=== PATIENT | female | born 1970 | race Caucasian/White ===

== ENCOUNTER → 2017-12-24 14:10 | Outpatient (CLI) | payer OTHER, SELFPAY ==
[2017-12-24 16:07] LABS: Anion Gap 9 (5-15); BUN 13 mg/dL (7-18); BUN/Creat Ratio 12.1 RATIO (10-20); Calcium,Total 9.3 mg/dL (8.5-10.1); Chloride 103 mmol/L (98-107); Cholesterol 175 mg/dL (200); Creatinine, Serum 1.07 mg/dL (0.55-1.02); EST Glomerular Filtration Rate 59 mL/min (>60); Est Glom Filt Rate - Afr Amer 71 mL/min (>60); Glucose 105 mg/dL (74-106); High Density Lipoprotein 37 mg/dL; Potassium 3.8 mmol/L (3.5-5.1); Sodium Level 139 mmol/L (136-145); Thyroid Stim Hormone (TSH) 1.65 uIU/mL (0.358-3.74); Triglycerides 149 mg/dL; Very Low Density Lipoprotein 30 mg/dL (5-40)
[2017-12-24 16:15] LABS: Hemoglobin A1c 7.1 % (4.2-6.3)
== END ==
PROVIDERS: Family Provider Family Medicine; PCP Family Medicine; Visit Provider Family Medicine
DX: E03.9 Hypothyroidism, unspecified (principal); I10 Essential (primary) hypertension
CPT/HCPCS: 36415; 80048; 80061; 83036; 84443

== ENCOUNTER → 2018-06-23 10:27 | Outpatient (CLI) | payer OTHER, SELFPAY ==
[2018-06-23 12:31] LABS: Anion Gap 7 (5-15); BUN 10 mg/dL (7-18); BUN/Creat Ratio 9.8 RATIO (10-20); Calcium,Total 8.9 mg/dL (8.5-10.1); Chloride 104 mmol/L (98-107); Creatinine, Serum 1.02 mg/dL (0.55-1.02); EST Glomerular Filtration Rate 62 mL/min (>60); Est Glom Filt Rate - Afr Amer 75 mL/min (>60); Glucose 124 mg/dL (74-106); Potassium 3.9 mmol/L (3.5-5.1); Sodium Level 138 mmol/L (136-145)
[2018-06-23 12:37] LABS: Hemoglobin A1c 6.8 % (4.2-6.3)
== END ==
PROVIDERS: Family Provider Family Medicine; PCP Family Medicine; Visit Provider Family Medicine
DX: I10 Essential (primary) hypertension (principal); R73.01 Impaired fasting glucose
CPT/HCPCS: 36415; 80048; 83036

== ENCOUNTER → 2018-12-26 11:04 | Outpatient (CLI) | payer OTHER, SELFPAY ==
[2018-12-26 13:27] LABS: Anion Gap 8 (5-15); BUN 16 mg/dL (7-18); Chloride 103 mmol/L (98-107); Cholesterol 179 mg/dL (200); Creatinine, Serum 1.07 mg/dL (0.55-1.02); EST Glomerular Filtration Rate 58 mL/min (>60); Est Glom Filt Rate - Afr Amer 71 mL/min (>60); Glucose 114 mg/dL (74-106); High Density Lipoprotein 34 mg/dL; Potassium 4.3 mmol/L (3.5-5.1); Sodium Level 137 mmol/L (136-145); Thyroid Stim Hormone (TSH) 2.54 uIU/mL (0.358-3.74); Triglycerides 175 mg/dL; Very Low Density Lipoprotein 35 mg/dL (5-40)
== END ==
PROVIDERS: Family Provider Family Medicine; PCP Family Medicine; Visit Provider Family Medicine
DX: E11.9 Type 2 diabetes mellitus without complications (principal); E03.9 Hypothyroidism, unspecified
CPT/HCPCS: 36415; 80048; 80061; 84443

== ENCOUNTER → 2019-06-15 10:29 | Outpatient (CLI) | payer OTHER, SELFPAY ==
[2019-06-15 12:56] LABS: Microalbumin,Random Urine < 5.0 mg/L (NO RANGE EST.)
[2019-06-15 13:03] LABS: Anion Gap 11 (5-15); BUN 10 mg/dL (7-18); BUN/Creat Ratio 9.8 RATIO (10-20); Calcium,Total 8.9 mg/dL (8.5-10.1); Chloride 104 mmol/L (98-107); Cholesterol 170 mg/dL (200); Creatinine, Serum 1.02 mg/dL (0.55-1.02); EST Glomerular Filtration Rate 62 mL/min (>60); Est Glom Filt Rate - Afr Amer 75 mL/min (>60); Glucose 147 mg/dL (74-106); High Density Lipoprotein 37 mg/dL; Potassium 4.1 mmol/L (3.5-5.1); Sodium Level 141 mmol/L (136-145); Thyroid Stim Hormone (TSH) 2.27 uIU/mL (0.358-3.74); Triglycerides 154 mg/dL; Very Low Density Lipoprotein 31 mg/dL (5-40)
== END ==
PROVIDERS: Family Provider Family Medicine; PCP Family Medicine; Referring Provider Family Medicine; Visit Provider Family Medicine
DX: E11.9 Type 2 diabetes mellitus without complications (principal); E03.9 Hypothyroidism, unspecified
CPT/HCPCS: 36415; 80048; 80061; 82043; 82570; 84443

== ENCOUNTER → 2019-12-14 10:52 | Outpatient (CLI) | payer OTHER, SELFPAY | PROVIDERS: PCP Family Medicine; Referring Provider Family Medicine; Visit Provider Nurse Practitioner Family | DX: R31.9 Hematuria, unspecified (principal) | CPT/HCPCS: 87086; 87088 ==

== ENCOUNTER → 2020-01-31 09:00 | Outpatient (CLI) | payer OTHER, SELFPAY ==
[2020-01-31 10:30] LABS: Hemoglobin A1c 5.9 % (4.2-6.3)
[2020-01-31 10:51] LABS: Anion Gap 8 (5-15); BUN 19 mg/dL (7-18); BUN/Creat Ratio 13.9 RATIO (10-20); Calcium,Total 9.2 mg/dL (8.5-10.1); Chloride 103 mmol/L (98-107); Cholesterol 197 mg/dL (200); Creatinine, Serum 1.37 mg/dL (0.55-1.02); EST Glomerular Filtration Rate 44 mL/min (>60); Est Glom Filt Rate - Afr Amer 53 mL/min (>60); Free T3 1.3 pg/mL (2.18-3.98); Glucose 93 mg/dL (74-106); High Density Lipoprotein 36 mg/dL; Potassium 4.1 mmol/L (3.5-5.1); Sodium Level 136 mmol/L (136-145); T4 Total, Thyroxin 11.6 ug/dL (4.8-13.9); Thyroid Stim Hormone (TSH) 1.72 uIU/mL (0.358-3.74); Triglycerides 166 mg/dL; Very Low Density Lipoprotein 33 mg/dL (5-40)
== END ==
PROVIDERS: PCP Family Medicine; Referring Provider Family Medicine; Visit Provider Family Medicine
DX: E03.9 Hypothyroidism, unspecified (principal); R73.01 Impaired fasting glucose; I10 Essential (primary) hypertension
CPT/HCPCS: 36415; 80048; 80061; 83036; 84436; 84443; 84481

== ENCOUNTER → 2020-08-01 09:07 | Outpatient (CLI) | payer OTHER, SELFPAY ==
[2020-08-01 10:45] LABS: Anion Gap 8 (5-15); BUN 18 mg/dL (7-18); BUN/Creat Ratio 14.1 RATIO (10-20); Calcium,Total 8.9 mg/dL (8.5-10.1); Chloride 105 mmol/L (98-107); Creatinine, Serum 1.28 mg/dL (0.55-1.02); EST Glomerular Filtration Rate 47 mL/min (>60); Est Glom Filt Rate - Afr Amer 57 mL/min (>60); Free T3 1.7 pg/mL (2.18-3.98); Glucose 93 mg/dL (74-106); Potassium 3.7 mmol/L (3.5-5.1); Sodium Level 140 mmol/L (136-145); T4 Free Direct 1.23 ng/dL (0.76-1.46)
== END ==
PROVIDERS: PCP Family Medicine; Referring Provider Family Medicine; Visit Provider Family Medicine
DX: E03.9 Hypothyroidism, unspecified (principal); I10 Essential (primary) hypertension
CPT/HCPCS: 36415; 80048; 84439; 84443; 84481

== ENCOUNTER → 2021-01-29 08:36 | Outpatient (CLI) | payer OTHER, SELFPAY ==
[2021-01-29 11:21] LABS: ALB/GLOB Ratio 1.1 RATIO (0.9-2.4); AST(SGOT) 9 U/L (15-37); Alanine Aminotransfer ALT/SGPT 11 U/L (13-56); Albumin, Serum 3.8 g/dL (3.2-5.0); Alkaline Phosphatase 61 U/L (45-117); Anion Gap 7 (5-15); BUN 14 mg/dL (7-18); BUN/Creat Ratio 11.9 RATIO (10-20); Chloride 105 mmol/L (98-107); Cholesterol 189 mg/dL (200); Creatinine, Serum 1.18 mg/dL (0.55-1.02); EST Glomerular Filtration Rate 52 mL/min (>60); Est Glom Filt Rate - Afr Amer 63 mL/min (>60); Free T3 1.7 pg/mL (2.18-3.98); Globulin 3.6 g/dL (2.2-4.2); Glucose 102 mg/dL (74-106); High Density Lipoprotein 49 mg/dL; Potassium 4.2 mmol/L (3.5-5.1); Protein, Total 7.4 g/dL (6.4-8.2); Sodium Level 139 mmol/L (136-145); T4 Free Direct 1.42 ng/dL (0.76-1.46); Thyroid Stim Hormone (TSH) 2.51 uIU/mL (0.358-3.74); Triglycerides 128 mg/dL; Very Low Density Lipoprotein 26 mg/dL (5-40)
== END ==
PROVIDERS: PCP Family Medicine; Referring Provider Family Medicine; Visit Provider Family Medicine
DX: I10 Essential (primary) hypertension (principal); E03.9 Hypothyroidism, unspecified
CPT/HCPCS: 36415; 80053; 80061; 84439; 84443; 84481

== ENCOUNTER → 2021-07-31 08:26 | Outpatient (CLI) | payer OTHER, SELFPAY ==
[2021-07-31 11:02] LABS: Anion Gap 7 (5-15); BUN 12 mg/dL (7-18); BUN/Creat Ratio 10.8 RATIO (10-20); Chloride 104 mmol/L (98-107); Cholesterol 182 mg/dL (200); Creatinine, Serum 1.11 mg/dL (0.55-1.02); EST Glomerular Filtration Rate 55 mL/min (>60); Est Glom Filt Rate - Afr Amer 67 mL/min (>60); Free T3 1.8 pg/mL (2.18-3.98); Glucose 114 mg/dL (74-106); High Density Lipoprotein 39 mg/dL; Potassium 4.3 mmol/L (3.5-5.1); Sodium Level 139 mmol/L (136-145); T4 Total, Thyroxin 11.6 ug/dL (4.8-13.9); Thyroid Stim Hormone (TSH) 2.09 uIU/mL (0.358-3.74); Triglycerides 234 mg/dL; Very Low Density Lipoprotein 47 mg/dL (5-40)
== END ==
PROVIDERS: PCP Family Medicine; Referring Provider Family Medicine; Visit Provider Family Medicine
DX: I10 Essential (primary) hypertension (principal); E03.9 Hypothyroidism, unspecified
CPT/HCPCS: 36415; 80048; 80061; 84436; 84443; 84481

== ENCOUNTER 2022-01-26 08:31 | Outpatient (CLI) | payer OTHER, SELFPAY ==
[2022-01-26 08:35] LABS: Bacteria 0 SEEN /hpf (None Seen); Mucous, Urine 0 SEEN /hpf (<or=2+); Red Blood Cells-Urine 0 SEEN /hpf (0-5)
[2022-01-26 09:54] LABS: Color, Urine Yellow (Yellow); Glucose, Dipstick Normal (Normal); Ketone-Dipstick Negative (Negative); Leukocyte Esterase-Dipstick 500 /ul (Negative); Nitrite-Dipstick Negative (Negative); Occult Blood-Urine Negative /ul (Negative); Protein-Dipstick 30 mg/dl (Negative); Specific Gravity, Urine 1.015 (1.002-1.030); Urine Bilirubin Dipstick Negative (Negative); Urine Clarity Clear (Clear); Urine Urobilinogen Normal (Normal)
[2022-01-26 10:01] LABS: White Blood Cells 5-10 SEEN /hpf (0-5)
[2022-01-26 10:02] LABS: Squamous Epithelial Cells - UA 5-10 SEEN /hpf (5-10)
[2022-01-26 11:01] LABS: Anion Gap 9 (5-15); BUN 16 mg/dL (7-18); Calcium,Total 9.5 mg/dL (8.5-10.1); Chloride 104 mmol/L (98-107); Cholesterol 194 mg/dL (200); Creatinine, Serum 1.23 mg/dL (0.55-1.02); EST Glomerular Filtration Rate 49 mL/min (>60); Est Glom Filt Rate - Afr Amer 59 mL/min (>60); Free T3 1.7 pg/mL (2.18-3.98); Glucose 105 mg/dL (74-106); High Density Lipoprotein 33 mg/dL; Potassium 4.3 mmol/L (3.5-5.1); Sodium Level 137 mmol/L (136-145); T4 Free Direct 1.36 ng/dL (0.76-1.46); Thyroid Stim Hormone (TSH) 3.39 uIU/mL (0.358-3.74); Triglycerides 191 mg/dL; Very Low Density Lipoprotein 38 mg/dL (5-40)
== END 2022-01-26 23:59 | disposition home or self-care (01) ==
LOC: MFPLAB 08:34
PROVIDERS: PCP Family Medicine; Visit Provider Family Medicine
DX: E03.9 Hypothyroidism, unspecified (principal); E11.9 Type 2 diabetes mellitus without complications; R30.0 Dysuria
CPT/HCPCS: 36415; 80048; 80061; 81001; 84439; 84443; 84481

== ENCOUNTER → 2022-04-22 | Outpatient (CLI) | payer OTHER, SELFPAY | END | disposition home or self-care (01) | PROVIDERS: PCP Family Medicine; Referring Provider Family Medicine; Visit Provider Family Medicine | DX: R30.0 Dysuria (principal) | CPT/HCPCS: 87077; 87086; 87088; 87186 ==

== ENCOUNTER → 2022-06-26 | Outpatient (CLI) | payer OTHER, SELFPAY | END | disposition home or self-care (01) | LOC: LABSPEC 15:38 | PROVIDERS: PCP Family Medicine; Referring Provider Family Medicine; Visit Provider Family Medicine | DX: R30.0 Dysuria (principal) | CPT/HCPCS: 87077; 87086; 87088; 87186 ==

== ENCOUNTER → 2022-07-27 | Outpatient (CLI) | payer OTHER, SELFPAY ==
[2022-07-27 10:58] LABS: Anion Gap 10 (5-15); BUN 10 mg/dL (7-18); BUN/Creat Ratio 9.6 RATIO (10-20); Calcium,Total 9.1 mg/dL (8.5-10.1); Chloride 107 mmol/L (98-107); Cholesterol 175 mg/dL (200); Creatinine, Serum 1.04 mg/dL (0.55-1.02); EST Glomerular Filtration Rate 60 mL/min (>60); Est Glom Filt Rate - Afr Amer 72 mL/min (>60); Glucose 117 mg/dL (74-106); High Density Lipoprotein 41 mg/dL; Sodium Level 140 mmol/L (136-145); T4 Free Direct 1.26 ng/dL (0.76-1.46); Thyroid Stim Hormone (TSH) 1.24 uIU/mL (0.358-3.74); Triglycerides 141 mg/dL; Very Low Density Lipoprotein 28 mg/dL (5-40)
== END | disposition home or self-care (01) ==
LOC: MFPLAB 08:26
PROVIDERS: PCP Family Medicine; Visit Provider Family Medicine
DX: I10 Essential (primary) hypertension (principal); E03.9 Hypothyroidism, unspecified
CPT/HCPCS: 36415; 80048; 80061; 84439; 84443; 84481

== ENCOUNTER 2022-12-01 08:51 | Day surgery (SDC) | payer OTHER, SELFPAY ==
[2022-12-01] MEDS: Lactated Ringers 1,000 ML 15 ML IV (09:10)
[2022-12-01 09:27] VITALS: BP 119/74; PULSE 67; RESP 17; TEMP 36.1; O2SAT 95; BMI 36.3
[2022-12-01 09:46] LABS: Bedside Glucose 147 mg/dL (74-106)
--- NOTE | 2022-12-01 10:05 | HP.PCM_ITS ---
HPI - General HPI Narrative HEIDI ANDREWS, is a 52 F who presents for screening colonoscopy. Patient reports no blood in the stool or abdominal pain. She has never had a colonoscopy in the past. No family history of colon cancer. [facility] Medical History Anemia Anxiety Bipolar disorder, unspecified Diabetes Diabetes Former smoker HTN (hypertension) Hypertriglyceridemia Hypothyroid Psoriasis Thyroid disease Vitamin D deficiency Wears glasses Home Medications clonidine HCl 0.1 mg tablet 0.1 mg PO BID 11/10/22 [History Last Taken Unknown] fluoxetine 20 mg capsule (Prozac) 20 mg PO DAILY 11/10/22 [History Last Taken Unknown] gemfibrozil 600 mg tablet 600 mg PO BID 11/10/22 [History Last Taken Unknown] lamotrigine 150 mg tablet 150 mg PO BID 11/10/22 [History Last Taken Unknown] levothyroxine 88 mcg tablet (Levoxyl) 88 mcg PO DAILY 11/10/22 [History Last Taken Unknown] metformin 1,000 mg tablet 1,000 mg PO BID 11/10/22 [History Last Taken Unknown] metoprolol succinate 200 mg tablet,extended release 24 hr (Toprol XL) 200 mg PO DAILY 11/10/22 [History Last Taken Unknown] risperidone 2 mg tablet (Risperdal) 2 mg PO QHS 11/10/22 [History Last Taken Unknown] valsartan 320 mg-hydrochlorothiazide 12.5 mg tablet (Diovan HCT) 1 tab PO DAILY 11/10/22 [History Last Taken Unknown] Allergy/AdvReac Type Severity Reaction Status Date / Time No Known Allergies Allergy Verified 12/01/22 09:05 Family History (Updated 11/10/22 @ 16:17 by Cristy Hernandez) Father Hypertension Diabetes Sister Anxiety Surgical History Hx of bilateral breast reduction surgery Hx of section Social History (Updated 11/10/22 @ 16:16 by Cristy Hernandez) household members: spouse Smoking Status: Former smoker Past Medical/Surgical History Planned Operation Planned Operative Procedure/s: colonoscopy Previous Hospitalizations/Surgeries HX Hospitalizations: No Any Problems With Anesthesia: No You/Your Family Experience Fever (Hyperthermia) With Anes: No Cholinesterase deficiency: No Cardiovascular Hx Heart Attack: No Hx Hypertension: Yes Respiratory Hx Chronic Obstructive Pulmonary Disease (COPD): No Hx Asthma: No Hx Emphysema: No Hx Sleep Apnea: No Hx Respiratory Tract Infection/Cold (presently): No Do You Snore Loudly (louder than talking or can be heard): No Do You Often Feel Tired/ Fatigued/ Sleepy Dring Daytime?: No Has Anyone Observed You Stop Breathing During Sleep?: No Result (for STOP score): Negative Smoking Status: Former smoker Neurological Hx Seizures: No Does patient have nerve stimulator: No Reproduction : No Miscellaneous Recent Exposure to Contagious Disease: No Allergies No Known Allergies Allergy (Verified 12/01/22 09:05) Discharge Is Pt Admitted From a Senior Care, or a Custodial: No Who Could Help: After D/C, Where Do you Plan to Go: Return Home Vital Signs Vital Signs Vital Signs: 12/01/22 09:27 12/01/22 09:27 Temperature 97 F L Temperature Source Temporal Pulse Rate 67 Respiratory Rate 17 Respiratory Pattern Normal Blood Pressure 119/74 Blood Pressure Mean 89 Blood Pressure Source Monitor Blood Pressure Position Semi-Fowlers Blood Pressure Location Right Arm Pulse Ox 95 Oxygen Delivery Method Room Air Weight Weight: 224 lb 13.944 oz Body Mass Index (BMI) 36.3 Physical Exam Const alert and oriented x3 HEENT normocephalic Eyes PERRL Resp normal respiratory effort and normal air movement Cardio regular rate and regular rhythm GI soft to palpation, non-tender and non-distended Extremity normal to inspection Assessment & Plan Assessment/Plan (1) Encounter for screening for malignant neoplasm of colon: PLAN: I explained endoscopy in detail to the patient. I explained the risks including but not limited to stroke or heart attack with anesthesia, perforation of the GI tract, bleeding, infection. I explained that any of these could necessitate further emergency surgery. The patient understands and all questions were answered sufficiently. The patient wishes to proceed with pr lisa. Lamine Marie MD Pager: [facility] [address] [place] [address], [address] [place] [address] Office: Surgery Risks - Colonoscopy Risks Include but are not Limited To: Risks include but are not limited to: Bleeding, perforation requiring further surgery, inability to complete colonoscopy requiring barium enema.
[2022-12-01 10:25] VITALS: BP 102/63; BP 119/74; PULSE 69; RESP 16; TEMP 36.1; O2SAT 95
--- NOTE | 2022-12-01 10:26 | OP.COLON_ITS ---
Patient Name: Dulce Chavez Procedure Date: 12/01/2022 10:07 AM Date of : 1970 Age: 52 Procedure: Colonoscopy Indications: Screening for colorectal malignant neoplasm Providers: Lamine Marie MD Referring MD: Red Perez MD Medicines: Monitored Anesthesia Care Patient Profile: This is a 52 year old female. Refer to note in patient chart for documentation of history and physical. Last Colonoscopy: none. The patient's first colonoscopy is today. Complications: No immediate complications. Procedure: Pre-Anesthesia Assessment: - Prior to the procedure, a History and Physical was performed, and patient medications and allergies were reviewed. The patient's tolerance of previous anesthesia was also reviewed. The risks and benefits of the procedure and the sedation options and risks were discussed with the patient. All questions were answered, and informed consent was obtained. Prior Anticoagulants: The patient has taken no previous anticoagulant or antiplatelet agents. After reviewing the risks and benefits, the patient was deemed in satisfactory condition to undergo the procedure. After I obtained informed consent, the scope was passed under direct vision. Throughout the procedure, the patient's blood pressure, pulse, and oxygen saturations were monitored continuously. The Colonoscope was introduced through the anus and advanced to the cecum, identified by appendiceal orifice and ileocecal valve. The colonoscopy was performed without difficulty. The patient tolerated the procedure well. The quality of the bowel preparation was good. Scope In: 10:14:26 AM Scope Withdrawal Time 0 hours 4 minutes 9 seconds Scope Out: 10:22:37 AM Total Procedure Duration Time 0 hours 8 minutes 11 seconds Findings: The entire examined colon appeared normal on direct and retroflexion views. Impression: - The entire examined colon is normal on direct and retroflexion views. - No specimens collected. Recommendation: - Discharge patient to home. - Resume previous diet. - Continue present medications. - Repeat colonoscopy in 10 years for screening purposes. Procedure Code(s): --- Professional --- 10082, Colonoscopy, flexible; diagnostic, including collection of specimen(s) by brushing or washing, when performed (separate procedure) Diagnosis Code(s): --- Professional --- Z12.11, Encounter for screening for malignant neoplasm of colon CPT copyright 2017 [employer]. All rights reserved. The codes documented in this report are preliminary and upon medical biller/coder review may be revised to meet current compliance requirements. Lamine Marie MD 12/01/2022 10:25:29 AM This report has been signed electronically. Number of Addenda: 0 Note Initiated On: 12/01/2022 10:07 AM
--- NOTE | 2022-12-01 10:27 | OP.CCLET_ITS ---
12/01/2022 Red Perez MD [address] [place] [address] Re : Colonoscopy procedure for Dulce Chavez Dear Dr. Perez This procedure was performed on Thursday, December 01, 2022. My impressions and recommendations are as follows: Impressions : - The entire examined colon is normal on direct and retroflexion views. - No specimens collected. Recommendations : - Discharge patient to home. - Resume previous diet. - Continue present medications. - Repeat colonoscopy in 10 years for screening purposes. My findings are described in the full procedure note, which is enclosed. If I can be of further assistance, please feel free to contact me at Doctor phone number(s): , Work: . Sincerely, Lamine Marie MD 12/01/2022 10:25:29 AM This report has been signed electronically.
[2022-12-01 10:30] VITALS: BP 107/60; BP 119/74; PULSE 67; RESP 16; O2SAT 96
[2022-12-01 10:35] VITALS: BP 119/74; BP 98/62; PULSE 65; RESP 16; O2SAT 95
[2022-12-01 10:40] VITALS: BP 106/64; BP 119/74; PULSE 62; RESP 16; TEMP 36.1; O2SAT 96
[2022-12-01 10:56] VITALS: BP 119/74
== END 2022-12-01 11:08 | disposition home or self-care (01) ==
LOC: EN 08:53 → AC 08:53
PROVIDERS: PCP Family Medicine; Referring Provider Family Medicine; Visit Provider Surgery
PROC: 0DJD8ZZ Inspection of Lower Intestinal Tract, Via Natural or Artificial Opening Endoscopic (ICD-10-PCS; CPT 45378; principal; 2022-12-01 10:10)
DX: Z12.11 Encounter for screening for malignant neoplasm of colon (principal); F31.9 Bipolar disorder, unspecified; E11.9 Type 2 diabetes mellitus without complications; I10 Essential (primary) hypertension; E78.1 Pure hyperglyceridemia; E03.9 Hypothyroidism, unspecified; Z79.84 Long term (current) use of oral hypoglycemic drugs; Z79.890 Hormone replacement therapy; Z79.899 Other long term (current) drug therapy; Z87.891 Personal history of nicotine dependence
CPT/HCPCS: 45378; 82962; J7120; J2405

== ENCOUNTER → 2023-01-25 | Outpatient (CLI) | payer OTHER, SELFPAY ==
[2023-01-25 10:11] LABS: Anion Gap 10 (5-15); BUN 15 mg/dL (7-18); Calcium,Total 9.5 mg/dL (8.5-10.1); Chloride 105 mmol/L (98-107); Cholesterol 194 mg/dL (200); Creatinine, Serum 1.25 mg/dL (0.55-1.02); EST Glomerular Filtration Rate 48 mL/min (>60); Est Glom Filt Rate - Afr Amer 58 mL/min (>60); Free T3 1.5 pg/mL (2.18-3.98); Glucose 123 mg/dL (74-106); High Density Lipoprotein 39 mg/dL; Potassium 3.6 mmol/L (3.5-5.1); Sodium Level 140 mmol/L (136-145); T4 Free Direct 1.31 ng/dL (0.76-1.46); Thyroid Stim Hormone (TSH) 1.52 uIU/mL (0.358-3.74); Triglycerides 166 mg/dL; Very Low Density Lipoprotein 33 mg/dL (5-40)
== END | disposition home or self-care (01) ==
PROVIDERS: PCP Family Medicine; Visit Provider Family Medicine
DX: E03.9 Hypothyroidism, unspecified (principal); E11.9 Type 2 diabetes mellitus without complications
CPT/HCPCS: 36415; 80048; 80061; 84439; 84443; 84481

== ENCOUNTER → 2023-07-26 | Outpatient (CLI) | payer OTHER, SELFPAY ==
[2023-07-26 10:50] LABS: Anion Gap 8 (5-15); BUN 10 mg/dL (7-18); BUN/Creat Ratio 10.4 RATIO (10-20); Calcium,Total 8.8 mg/dL (8.5-10.1); Chloride 104 mmol/L (98-107); Cholesterol 186 mg/dL (200); Creatinine, Serum 0.96 mg/dL (0.55-1.02); EST Glomerular Filtration Rate 65 mL/min (>60); Est Glom Filt Rate - Afr Amer 79 mL/min (>60); Glucose 121 mg/dL (74-106); High Density Lipoprotein 36 mg/dL; Potassium 3.8 mmol/L (3.5-5.1); Sodium Level 139 mmol/L (136-145); Thyroid Stim Hormone (TSH) 1.67 uIU/mL (0.358-3.74); Triglycerides 198 mg/dL; Very Low Density Lipoprotein 40 mg/dL (5-40)
[2023-07-26 11:44] LABS: Hemoglobin A1c 5.6 % (3.8-5.6)
== END | disposition home or self-care (01) ==
LOC: MFPLAB 08:31
PROVIDERS: PCP Family Medicine; Visit Provider Family Medicine
DX: E11.9 Type 2 diabetes mellitus without complications (principal); E03.9 Hypothyroidism, unspecified
CPT/HCPCS: 36415; 80048; 80061; 83036; 84443

== ENCOUNTER → 2024-01-19 | Outpatient (CLI) | payer OTHER, SELFPAY ==
[2024-01-19 13:10] LABS: Anion Gap 5 (5-15); BUN 10 mg/dL (7-18); BUN/Creat Ratio 10.7 RATIO (10-20); Calcium,Total 8.9 mg/dL (8.5-10.1); Chloride 104 mmol/L (98-107); Cholesterol 197 mg/dL (200); Creatinine, Serum 0.93 mg/dL (0.55-1.02); EST Glomerular Filtration Rate 67 mL/min (>60); Est Glom Filt Rate - Afr Amer 81 mL/min (>60); Glucose 108 mg/dL (74-106); High Density Lipoprotein 43 mg/dL; Potassium 4.2 mmol/L (3.5-5.1); Sodium Level 136 mmol/L (136-145); T4 Free Direct 1.33 ng/dL (0.76-1.46); Triglycerides 132 mg/dL; Very Low Density Lipoprotein 26 mg/dL (5-40)
== END | disposition home or self-care (01) ==
LOC: MFPLAB 09:29
PROVIDERS: PCP Family Medicine; Visit Provider Family Medicine
DX: Z00.00 Encounter for general adult medical examination without abnormal findings (principal); E03.9 Hypothyroidism, unspecified
CPT/HCPCS: 36415; 80048; 80061; 84439; 84443; 84481

== ENCOUNTER 2024-02-07 10:20 | Outpatient (CLI) | payer OTHER, SELFPAY ==
[2024-02-10 09:08] LABS: HPV APTIMA, High Risk Negative (Negative)
[2024-02-10 15:33] LABS: HPV Reflexed? YES, CHARGE PATIENT
== END 2024-02-07 23:59 | disposition home or self-care (01) ==
LOC: LABSPEC 10:22
PROVIDERS: PCP Family Medicine; Referring Provider Nurse Practitioner Family; Visit Provider Nurse Practitioner Family
DX: Z12.4 Encounter for screening for malignant neoplasm of cervix (principal)
CPT/HCPCS: 87624; 88175; G0145

== ENCOUNTER → 2024-07-27 | Outpatient (CLI) | payer OTHER, SELFPAY ==
[2024-07-27 10:39] LABS: Hemoglobin A1c 6.5 % (3.8-5.6)
[2024-07-27 10:49] LABS: Microalbumin,Random Urine 7.3 mg/L (NO RANGE EST.); Microalbumin:Creatinine Ratio 8.4 mg/g CRE (<30 mg/g CRE)
[2024-07-27 11:10] LABS: AST(SGOT) 6 U/L (15-37); Alanine Aminotransfer ALT/SGPT 10 U/L (13-56); Albumin, Serum 3.3 g/dL (3.2-5.0); Alkaline Phosphatase 77 U/L (45-117); Anion Gap 6 (5-15); BUN 15 mg/dL (7-18); Chloride 104 mmol/L (98-107); Cholesterol 190 mg/dL (200); Creatinine, Serum 0.94 mg/dL (0.55-1.02); EST Glomerular Filtration Rate 67 mL/min (>60); Est Glom Filt Rate - Afr Amer 81 mL/min (>60); Free T3 1.8 pg/mL (2.18-3.98); Globulin 3.4 g/dL (2.2-4.2); Glucose 137 mg/dL (74-106); High Density Lipoprotein 41 mg/dL; Potassium 3.9 mmol/L (3.5-5.1); Protein, Total 6.7 g/dL (6.4-8.2); Sodium Level 136 mmol/L (136-145); T4 Free Direct 1.26 ng/dL (0.76-1.46); Triglycerides 178 mg/dL; Very Low Density Lipoprotein 36 mg/dL (5-40)
== END | disposition home or self-care (01) ==
LOC: MFPLAB 08:28
PROVIDERS: PCP Family Medicine; Visit Provider Family Medicine
DX: E03.9 Hypothyroidism, unspecified (principal); E11.9 Type 2 diabetes mellitus without complications; I10 Essential (primary) hypertension
CPT/HCPCS: 36415; 80053; 80061; 82043; 82570; 83036; 84439; 84443; 84481

== ENCOUNTER → 2025-03-01 | Outpatient (CLI) | payer OTHER, SELFPAY ==
[2025-03-01 15:29] LABS: Absolute Lymphocyte Count 0.63 X10^3/uL (0.83-4.51); Absolute Neutrophil Count 3.7 X10^3/uL (2.0-7.7); Basophil# 0.02 X10^3/uL; Basophil% 0.4 % (0-1); Hematocrit 26.7 % (37-47); Hemoglobin 7.2 g/dL (12.0-15.0); Lymphocyte # 0.63 X10^3/ul (0.83-4.51); Lymphocyte % 12.6 % (19-41); Mean Corpuscular Hgb 20.3 pg (27.0-32.0); Mean Corpuscular Volume 75.4 fL (81-99); Mean Platelet Vol. 10.5 fl (6.2-12.0); NRBC Flagged by Analyzer 0 % (0-5); Neutrophil # 3.69 X10^3/uL (2.7-7.7); Neutrophil % 73.8 % (47-70); POSITIVE COUNT YES; POSITIVE MORPHOLOGY YES; RBC Distribution Width CV 20.9 % (11.6-14.6); RBC Distribution Width SD 55.5 fl (35.1-43.9); Red Blood Count 3.54 M/mm3 (4.2-5.4)
[2025-03-01 16:17] LABS: ALB/GLOB Ratio 1.6 RATIO (0.9-2.4); AST(SGOT) 86 U/L (<=31); Alanine Aminotransfer ALT/SGPT 67 U/L (<=34); Albumin, Serum 4.2 g/dL (3.5-5.0); Alkaline Phosphatase 190 U/L (35-104); Anion Gap 14 (5-15); BUN 12 mg/dL (4-19); BUN/Creat Ratio 11.5 RATIO (10-20); Calcium,Total 8.9 mg/dL (7.6-11.0); Carbon Dioxide 25.1 mmol/L (21.0-32.0); Chloride 99 mmol/L (98-108); Cholesterol 194 mg/dL (<=200); Creatinine, Serum 1.04 mg/dL (0.70-1.20); EST Glomerular Filtration Rate 64 (>60); Globulin 2.6 g/dL (2.2-4.2); Glucose 158 mg/dL (70-99); High Density Lipoprotein 50 mg/dL; Low Density Lipoprotein Calc. 117 mg/dL; Potassium 4.2 mmol/L (3.3-5.1); Protein, Total 6.8 g/dL (5.9-8.4); Sodium Level 138 mmol/L (133-145); Total Bilirubin 0.57 mg/dL (0.00-1.30); Triglycerides 134 mg/dL; Troponin T High Sensitivity 14 ng/L (<=14); Very Low Density Lipoprotein 27 mg/dL (5-40); cholesterol:hdl ratio screen 3.89
[2025-03-01 16:18] LABS: Differential Indicated SCAN CRITERIA MET; Platelet Estimate ADEQUATE (ADEQ)
[2025-03-01 16:19] LABS: Anisocytosis 2+; Hypochromasia 1+
[2025-03-01 16:21] LABS: Hemoglobin A1c 7.6 % (<=5.6)
== END | disposition home or self-care (01) ==
LOC: MFPLAB 10:12 → MTLAB 11:08
PROVIDERS: PCP Family Medicine; Referring Provider Family Medicine; Visit Provider Family Medicine
DX: R07.9 Chest pain, unspecified (principal); R53.83 Other fatigue; Z79.899 Other long term (current) drug therapy
CPT/HCPCS: 36415; 80053; 80061; 83036; 84146; 84484; 85025

== ENCOUNTER → 2025-03-05 | Outpatient (CLI) | payer OTHER, SELFPAY ==
[2025-03-05 13:16] LABS: Ferritin 13 ng/mL (22-378); Iron 33 ug/dL (50-170)
== END | disposition home or self-care (01) ==
LOC: MFPLAB 10:17
PROVIDERS: PCP Family Medicine; Referring Provider Family Medicine; Visit Provider Family Medicine
DX: E61.1 Iron deficiency (principal)
CPT/HCPCS: 36415; 82728; 83540

== ENCOUNTER → 2025-03-29 | Outpatient (CLI) | payer OTHER, SELFPAY ==
[2025-03-29 12:30] LABS: Absolute Lymphocyte Count 0.95 X10^3/uL (0.83-4.51); Absolute Neutrophil Count 4.6 X10^3/uL (2.0-7.7); Basophil# 0.02 X10^3/uL; Basophil% 0.3 % (0-1); Eosinophil# 0.25 X10^3/uL; Eosinophils% 3.9 % (0-5); Hematocrit 31.9 % (37-47); Hemoglobin 9.2 g/dL (12.0-15.0); Lymphocyte # 0.95 X10^3/ul (0.83-4.51); Mean Corp Hgb Conc 28.8 g/dL (32-36); Mean Corpuscular Hgb 24.3 pg (27.0-32.0); Mean Corpuscular Volume 84.2 fL (81-99); Mean Platelet Vol. 9.6 fl (6.2-12.0); Monocyte# 0.45 X10^3/uL; Monocyte% 7.1 % (0-10); NRBC Flagged by Analyzer 0 % (0-5); Neutrophil % 72.6 % (47-70); POSITIVE MORPHOLOGY YES; Platelet Count 263 K/mm3 (150-450); RBC Distribution Width CV 27.1 % (11.6-14.6); RBC Distribution Width SD 81.7 fl (35.1-43.9); Red Blood Count 3.79 M/mm3 (4.2-5.4); White Blood Count 6.3 K/mm3 (4.4-11.0)
[2025-03-29 12:52] LABS: Differential Indicated SCAN CRITERIA MET
[2025-03-29 14:18] LABS: Anisocytosis 2+; Polychromasia 1+
== END | disposition home or self-care (01) ==
LOC: MFPLAB 11:27
PROVIDERS: PCP Family Medicine; Referring Provider Family Medicine; Visit Provider Family Medicine
DX: D64.9 Anemia, unspecified (principal)
CPT/HCPCS: 36415; 85025

== ENCOUNTER → 2025-04-17 | Outpatient (CLI) | payer OTHER, SELFPAY ==
--- OUTSIDE RECORDS SUMMARY | 2025-04-17 06:19 | XMS RPT_ITS | CCD ---
Author Organization [facility] Care Team Providers Care Claims Sorter Name Role Phone Dr. Red Sandoval Primary Care Provider Cristy Hernandez Attending Provider Unavailable Ana, Dr. Moon Referring Provider Dr. Lamine Marie Attending Provider Dr. Lamine Marie Other Provider Ana JARAMILLO, Dr. Moon Primary Care Provider Ana JARAMILLO, Dr. Moon Attending Provider Ana JARAMILLO, Dr. Moon Referring Provider ROSETTA BARRY Other Provider Yamila Stein LPN Attending Provider Unavailab de Chapman MD, Dr. Carroll Attending Provider Ari JARAMILLO, Dr. Carroll Referring Provider Red Sandoval Attending Unavailable Sandoval, Red Referring Unavailable Sandoval, Red Primary Care Unavailable Sandoval, Red Primary Care Unavailable Yamila Stein Attending Unavailable Sandoval, Red Referring Unavailable Sandoval, Red Primary Care Unavailable Jaiden INSPECTOR FUEL HOSEEnrique Attending Unavailable Ari, Glen Attending Unavailable Sandoval, Red Referring Unavailable Sandoval, Red Primary Care Unavailable FRANCIS, LIU Consulting Unavailable Sandoval, Red Attending Unavailable Sandoval, Red Referring Unavailable Sandoval, Red Primary Care Unavailable Sandoval, Red Attending Unavailable Sandoval, Red Primary Care Unavailable Sandoval, Red Referring Unavailable Sandoval, Red Primary Care Unavailable Sandoval, Red Attending Unavailable Sandoval, Red Referring Unavailable Sandoval, Red Primary Care Unavailable Sandoval, Red Attending Unavailable Prarito, Glen Attending Unavailable Glen Chapman Referring Unavailable Sandoval, Red Primary Care Unavailable Medications Current Medications Medication Drug Class(es) Dates Sig (Normalized) Sig (Original) cloNIDine hydrochloride 0.1 mg oral tablet (8 sources) Central alpha-2 Adrenergic Agonist Start: 03-08-2025 take 0.05 mg by mouth twice daily Clonidine Hcl 0.1 mg tablet Active 0.05 mg PO TWICE A DAY March 08, 2025 8:29am Start: 11-10-2022 End: 03-08-2025 take 1 tablet by mouth twice daily Clonidine Hcl 0.1 mg tablet Discontinued 0.1 mg PO TWICE A DAY November 10, 2022 1:00am March 08, 2025 8:30am FLUoxetine 20 mg oral capsule (10 sources) Serotonin Reuptake Inhibitor Start: 03-08-2025 take 3 capsules by mouth once daily Fluoxetine (Prozac) 20 mg capsule Active 60 mg PO DAILY March 08, 2025 8:29am Start: 03-05-2025 End: 03-08-2025 take 2 capsules by mouth once daily Fluoxetine (Prozac) 20 mg capsule Discontinued 40 mg PO DAILY March 05, 2025 4:40pm March 08, 2025 8:30am Start: 11-10-2022 End: 03-05-2025 take 1 capsule by mouth once daily Fluoxetine (Prozac) 20 mg capsule Discontinued 20 mg PO DAILY November 10, 2022 1:00am March 05, 2025 4:41pm gemfibrozil 600 mg oral tablet (7 sources) Peroxisome Proliferator Receptor alpha Agonist Start: 11-10-2022 take 1 tablet by mouth twice daily Gemfibrozil 600 mg tablet Active 600 mg PO TWICE A DAY November 10, 2022 1:00am hydroCHLOROthiazide 12.5 mg / valsartan 320 mg oral tablet (7 sources) Thiazide Diuretic, Angiotensin 2 Receptor David Start: 11-10-2022 Valsartan-Hydroch lorothiazide (Diovan Hct) 320-12.5 mg tablet Active 1 {tbl} PO DAILY November 10, 2022 1:00am lamoTRIgine 150 mg oral tablet (7 sources) Mood Stabilizer, Anti-epileptic Agent Start: 11-10-2022 take 1 tablet by mouth twice daily Lamotrigine 150 mg tablet Active 150 mg PO TWICE A DAY November 10, 2022 1:00am levothyroxine sodium 0.088 mg oral tablet (7 sources) l-Thyroxine Start: 11-10-2022 take 1 tablet by mouth once daily Levothyroxine (Levoxyl) 88 mcg tablet Active 88 ug PO DAILY November 10, 2022 1:00am metFORMIN hydrochloride 1000 mg oral tablet (7 sources) Biguanide Start: 11-10-2022 take 1 tablet by mouth twice daily Metformin 1,000 mg tablet Active 1000 mg PO TWICE A DAY November 10, 2022 1:00am 24 hr metoprolol succinate 200 mg extended release oral tablet (7 sources) beta-Adrenergic David Start: 11-10-2022 take 1 tablet by mouth once daily Metoprolol Succinate (Toprol Xl) 200 mg tablet extended release 24 hr Active 200 mg PO DAILY November 10, 2022 1:00am oxybutynin chloride 5 mg oral tablet (2 sources) Cholinergic Muscarinic Antagonist Start: 03-05-2025 take 1 tablet by mouth twice daily Oxybutynin Chloride 5 mg tablet Active 5 mg PO TWICE A DAY March 05, 2025 12:00am risperiDONE 2 mg oral tablet (7 sources) Atypical Antipsychotic Start: 11-10-2022 take 1 tablet by mouth at bedtime Risperidone (Risperdal) 2 mg tablet Active 2 mg PO AT BEDTIME November 10, 2022 1:00am Completed/Discontinued Medications Medication Drug Class(es) Dates Sig (Normalized) Sig (Original) azithromycin 250 mg oral tablet (2 sources) Macrolide Antimicrobial Start: End: 5 Azithromycin (Zithromax Z-Navneet) 250 mg tablet Discontinued 0 PO .COMPLEX October 08, 2024 1:00am March 05, 2025 4:41pm For 250 mg dose pack: take 500 mg today (day 1), then 250 mg for 4 days (days 2-5) PO methylPREDNISolone 4 mg oral tablet (2 sources) Corticosteroid Start: 4 End: 5 take 1 tablet by mouth once Methylprednisolone (Medrol (Navneet)) 4 mg tablets,dose pack Discontinued 0 PO per package directions October 08, 2024 1:00am March 05, 2025 4:41pm PO PER PKG DIR Problems Active Problems Problem Classification Problem Date Documented Da te Episodic/Chronic Deficiency and other anemia (3 sources) Iron deficiency anemia; Translations: [Iron deficiency anemia, unspecified] Episodic Comment on above: Hgb 7.2, Iron 33, Fe rritin 13, MCV 75 on 03/05/2025. Stool for occult blood was negative.Discussed evaluation and treatment of Iron deficiency Anemia, IV iron replacement since she recently had Chest pain and SOB. Deficiency and other anemia (1 source) Anemia; Translations: [Anemia, unspecified] 03-08-2025 Episodic Deficiency and other anemia (1 source) Anemia, unspecified; Translations: [Anemia, unspecified] Onset: 04-03-2025 Episodic Deficiency and other anemia (2 sources) Iron deficiency anemia, unspecified; Translations: [Iron deficiency anemia, unspecified] Onset: 03-08-2025 Episodic Deficiency and other anemia (1 source) Deficiency and other anemia Diabetes mellitus without complication (7 sources) Diabetes mellitus; Translations: [Type 2 diabetes mellitus without complications] 11-10-2022 Chronic Malaise and fatigue (1 source) Other fatigue; Translations: [Other fatigue] Onset: 03-06-2025 Episodic Nonspecific chest pain (1 source) Chest pain, unspecified; Translations: [Chest pain, unspecified] Onset: 04-11-2025 Episodic Nutritional deficiencies (1 source) Iron deficiency; Translations: [Iron deficiency] Onset: 03-09-2025 Episodic Other screening for suspected conditions (not mental disorders or infectious disease) (9 sources) Patient encounter status; Translations: [Encounter for screening for malignant neoplasm of colon] 11-10-2022 Episodic Thyroid disorders (1 source) Hypothyroidism, unspecified; Translations: [Hypothyroidism, unspecified] Onset: 08-17-2024 Chronic Past or Other Problems Problem Classification Problem Date Documented Da te Episodic/Chronic Other upper respiratory infections (3 sources) Upper respiratory infection; Translations: [Acute upper respiratory infection, unspecified] Onset: 10-08-2024 10-08-2024 Episodic Results Test Name Value Interpretation Reference Range Facility Absolute lymphocyte countOrd ered By: Red Sandoval on 03-29-2025 Lymphocytes Auto (Unsp spec) [#/Vol] 0.95 10*3/uL 0.83-4.51 [facility] Absolute neutrophil countOrd ered By: Red Sanodval on 03-29-2025 Neutrophils (Bld) [#/Vol] 4.6 10*3/uL 2.0-7.7 [facility] Automated lymphocyte count a s percentage of total leukocytesOrdered By: Red Sandoval on 03-29-2025 Lymphocytes/100 WBC Auto (Unsp spec) 15.0 % Low 19-41 [facility] Basophil percentageOrdered B y: Red Sandoval on 03-29-2025 Basophils/100 WBC (Bld) 0.3 % 0-1 [facility] Blood polychromasia detectio n by light microscopyOrdered By: Red Sandoval on 03-29-2025 Polychromasia LM Ql (Bld) 1+ [facility] CBC W/Diff, Automatedon - Anisocytosis Ql (Bld) 2+ Normal [facility] Comment on above: Performed By: #### L [id number], L501.9520, L500.4100, L506.0400, L500.4050, L501.9985, L502.0250 #### [facility] [address] [place], [place], [id number] ([phone] POLYCHROMASIA 1+ Normal [facility] Comment on above: Performed By: #### L 501.21571, L501.9520, L500.4100, L506.0400, L500.4050, L501.9985, L502.0250 #### [facility] [address] [place], [address] Eosinophil percentageOrdered By: Red Sandoval on 03-29-2025 Eosinophils/100 WBC (Bld) 3.9 % 0-5 [facility] Erythrocyte distribution wid th ratioOrdered By: Red Sandoval on 03-29-2025 Erythrocyte distribution width (RBC) [Ratio] 27.1 % High 11.6-14.6 [facility] Erythrocyte distribution wid th standard deviationOrdered By: Red Sandoval on 03-29-2025 Erythrocyte distribution width (RBC) [Ratio] 81.7 fl High 35.1-43.9 [facility] Hematocrit Auto (Bld) [Volum e fraction]Ordered By: Red Sandoval on 03-29-2025 Hematocrit (Bld) [Volume fraction] 31.9 % Low 37-47 [facility] Hemoglobin measurementOrdere d By: Red Sandoval on 03-29-2025 Hemoglobin (Bld) [Mass/Vol] 9.2 g/dL Low 12.0-15.0 [facility] Immature granulocytes/100 WB C Auto (Bld)Ordered By: Red Sandoval on 03-29-2025 Immature granulocytes/100 WBC (Bld) 1.100 % High 0.0-0.9 [facility] Comment on above: IG% - Immature Granu locytes (promyelocytes, myelocytes and metamyelocytes) > 1% indicates that a LEFT SHIFT is Present. Laboratory - Hematology and Cell countsOrdered By: Red Sandoval on 03-29-2025 Anisocytosis Ql (Bld) 2+ [facility] MCV (mean corpuscular volume ) determinationOrdered By: Red Sandoval on 03-29-2025 MCV (RBC) [Entitic vol] 84.2 fL 81-99 [facility] Mean corpuscular hemoglobin (MCH) determinationOrdered By: Red Sandoval on 03-29-2025 MCH (RBC) [Entitic mass] 24.3 pg Low 27.0-32.0 [facility] Mean corpuscular hemoglobin concentration (MCHC) determinationOrdered By: Red Sandoval on 03-29-2025 MCHC (RBC) [Mass/Vol] 28.8 g/dL Low 32-36 [facility] Mean platelet volume determi nationOrdered By: Red Sandoval on 03-29-2025 Platelet mean volume (Bld) [Entitic vol] 9.6 fL 6.2-12.0 [facility] Monocyte percentageOrdered B y: Red Sandoval on 03-29-2025 Monocytes/100 WBC (Bld) 7.1 % 0-10 [facility] Neutrophil percentageOrdered By: Red Sandoval on 03-29-2025 Neutrophils/100 WBC (Bld) 72.6 % High 47-70 [facility] Nucleated red blood cell per centageOrdered By: Red Sandoval on 03-29-2025 Nucleated RBC/100 WBC (Bld) [Ratio] 0 % 0-5 [facility] Platelet countOrdered By: Yousuf Sandoval on 03-29-2025 Platelets (Bld) [#/Vol] 263 10*3/uL 150-450 [facility] RBC Auto (Bld) [#/Vol]Ordere d By: Red Sandoval on 03-29-2025 RBC (Bld) [#/Vol] 3.79 10*6/uL Low 4.2-5.4 [facility] White blood cell (WBC) count Ordered By: Red Sandoval on 03-29-2025 WBC (Bld) [#/Vol] 6.3 10*3/uL 4.4-11.0 [facility] Celiac AB,Comprehensiveon ANTIGLIADIN IGA 2 units Normal 0-19 [facility] Comment on above: Result Comment: Nega tive 0 - 19 Weak Positive 20 - 30 Moderate to Strong Positive >30 Performed By: #### L 501.87038, L501.9520, L500.4100, L506.0400, L500.4050, L501.9985, L502.0250 #### [facility] [address] [place], [address] ANTIGLIADIN IGG 2 units Normal 0-19 [facility] Comment on above: Result Comment: Nega tive 0 - 19 Weak Positive 20 - 30 Moderate to Strong Positive >30 Performed By: #### L 501.17695, L501.9520, L500.4100, L506.0400, L500.4050, L501.9985, L502.0250 #### [facility] [address] [place], [address] ENDOMYSIAL IGA Negative Normal Negative [facility] Comment on above: Performed By: #### L 501.18868, L501.9520, L500.4100, L506.0400, L500.4050, L501.9985, L502.0250 #### [facility] [address] [place], [address] IMMUNOGLOB A QN 57 mg/dL Low 87-352 [facility] Comment on above: Result Comment: Perf ormed at: - [facility] [address] [id number] Car Dispatcher: Preston Ashley PhD, Phone: [phone] Performed By: #### L 501.85278, L501.9520, L500.4100, L506.0400, L500.4050, L501.9985, L502.0250 #### [facility] [address] [place], [place], [id number] tTG IGA <2 Normal 0-3 [facility] Comment on above: Result Comment: Nega tive 0 - 3 Weak Positive 4 - 10 Positive >10 Tissue Transglutaminase (tTG) has been identified as the endomysial antigen. Studies have demonstr- ated that endomysial IgA antibodies have over 99% specificity for gluten sensitive enteropathy. Performed By: #### L 501.30901, L501.9520, L500.4100, L506.0400, L500.4050, L501.9985, L502.0250 #### [facility] [address] [place], [address] tTG IGG 3 U/mL Normal 0-5 [facility] Comment on above: Result Comment: Nega tive 0 - 5 Weak Positive 6 - 9 Positive >9 Performed By: #### L 501.81559, L501.9520, L500.4100, L506.0400, L500.4050, L501.9985, L502.0250 #### [facility] [address] [place], [address] Folates, (Folic Acid)on 02-14 FOLATES 5.36 ng/mL Normal 4.60-34.80 [facility] Comment on above: Order Comment: ADD O N FROM EARLIER TODAY, THANKSFOLATES AND B12N Performed By: #### L 501.49874, L501.9520, L500.4100, L506.0400, L500.4050, L501.9985, L502.0250 #### [facility] [address] [place], [address] No Panel InformationOrdered By: Glen Chapman on 03-08-2025 Tissue Transglutaminase IgG Ab 3 U/mL 0-5 [facility] Comment on above: Negative 0 - 5 Weak Positive 6 - 9 Positive >9 Oncology Visit Reporton 04 Oncology Visit Report [facility] [address] [place] [address] OFFICE VISIT Date of Service: 03/08/25819 MR#: [id number] Acct: [id number] Name: HEIDI ANDREWS Rep #: [id number] : 1970 From: Glen Chapman MD Age/Sex: 55/F Location: [facility] Status: Signed HPI Subjective Date of Service 03/08/25 Chief Complaint Referred for Iron deficiency anemia. History of Present Illness 55 y.o.woman presented to PCP with SOB, fatigue, palpitations, she was found to Microcytic anemia with negative stool for occult blood on 03/05/2025. She is referred for management. Feels tired. Colonoscopy in Nov 2022 was negative. [facility] Medical History (Updated 03/08/25 @ 09:[address] 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 [employer] Smoking Status: Former smoker alcohol intake: never substance use type: does not use ROS Constitutional Constitutional: Reports fatigue, malaise and weakness; Denies fever(s) Eyes Eyes: Reports systems reviewed and no addt'l complaints, except as documented ENT HEENT: Reports systems reviewed and no addt'l complaints, except as documented Cardiovascular Cardiovascular: Reports systems reviewed and no addt'l complaints, except as documented Respiratory/Chest Respiratory/Chest: Reports systems reviewed and no addt'l complaints, except as documented Gastrointestinal Gastrointestinal: Reports systems reviewed and no addt'l complaints, except as documented Genitourinary Genitourinary: Reports systems reviewed and no addt'l complaints, except as documented Musculoskeletal Musculoskeletal: Reports systems reviewed and no addt'l complaints, except as documented Integumentary Integumentary: Reports systems reviewed and no addt'l complaints, except as documented Neurologic Neurologic: Reports systems reviewed and no addt'l complaints, except as documented Psychiatric Psychiatric: Reports systems reviewed and no addt'l complaints, except as documented Endocrine Endocrinology: Reports systems reviewed and no addt'l complaints, except as documented Hematologic/Lymphati c Hematologic/Lymphati c: Reports systems reviewed and no addt'l complaints, except as documented; Denies easy bleeding or easy bruising Allergic/Immunologic Allergic/Immunologic : Reports systems reviewed and no addt'l complaints, except as documented Intake Vital Signs 10/08/24 08:02 03/08/25 08:22 Height 5 ft 6 in 5 ft 6 in Weight: 125.673 kg BMI 44.7 BP 113/74 Blood Pressure Location Lt brachial Position Sitting Respiration 18 Pulse 78 Pulse Source Monitor Temp 98.3 F Temperature Source Temporal Artery Pulse Oximetry (%) 97 Oxygen Delivery Method room air Intake Is patient in pain?: No Allergies No Known Allergies Allergy (Verified 03/08/25 08:28) Medications ???Medication ???Instructions ???Recorded ???Confirmed ???Type gemfibrozil 600 mg tablet 600 mg PO BID 11/10/22 03/08/25 Hi story lamotrigine 150 mg tablet 150 mg PO BID 11/10/22 03/08/25 Hi story levothyroxine 88 mcg tablet 88 mcg PO DAILY 11/10/22 03/08/25 History (Levoxyl) metformin 1,000 mg tablet 1,000 mg PO BID 11/10/22 03/08/25 History metoprolol succinate 200 mg 200 mg PO DAILY 11/10/22 03/08/25 History tablet,extended release 24 hr (Toprol XL) risperidone 2 mg tablet (Risperdal) 2 mg PO QHS 11/10/22 03/08/25 H istory valsartan 320 1 tab PO DAILY 11/10/22 03/08/25 H istory mg-hydrochlorothiazi de 12.5 mg tablet (Diovan HCT) oxybutynin chloride 5 mg tablet 5 mg PO BID 03/05/25 03/08/25 Hist ory clonidine HCl 0.1 mg tablet 0.05 mg PO BID 03/08/25 03/08/25 H istory fluoxetine 20 mg capsule (Prozac) 60 mg PO DAILY 03/08/25 03/08/25 History Laboratory Tests 03/01/25 03/05/25 11:43 10:19 WBC 5.0 Hgb 7.2 L Hct 26.7 L MCV 75.4 L Iron 33 L Ferritin 13 L Exam Physical Exam Const alert, oriented x3 and no apparent distress HEENT normocephalic, external ears normal and external nose normal Eyes conjunctivae normal and no scleral icterus Neck supple Lymph Lymphatic: no lymphadenopathy (more content not included)... Normal [facility] Serum tissue transglutaminas e (tTG) IgA antibody assay (units/volume)Ordered By: Glen Chapman on 03-08-2025 tTG IgA Qn (S) <2 U/mL 0-3 [facility] Comment on above: Negative 0 - 3 Weak Positive 4 - 10 Positive >10 Tissue Transglutaminase (tTG) has been identified as the endomysial antigen. Studies have demonstr- ated that endomysial IgA antibodies have over 99% specificity for gluten sensitive enteropathy. Vitamin B12on 03-08-2025 Cobalamin (Vitamin B12) [Mass/Vol] 184 pg/mL Normal 180-914 [facility] Comment on above: Order Comment: ADD O N FROM EARLIER TODAY, THANKSFOLATES AND B12 Performed By: #### L 501.58493, L501.9520, L500.4100, L506.0400, L500.4050, L501.9985, L502.0250 #### [facility] [address] [place], [address] Vitamin B12 ser/plasOrdered By: Glen Chapman on 03-08-2025 Cobalamin (Vitamin B12) [Mass/Vol] 184 pg/mL 180-914 [facility] Ferritinon 04-21-2025 Ferritin [Mass/Vol] 13 ng/mL Low 22-378 [facility] Comment on above: Order Comment: Order Date: 03/02/25Order Info: [id number] - FEOrder Info: 6 - FERComments: Low iron Performed By: #### L 501.11722, L501.9520, L500.4100, L506.0400, L500.4050, L501.9985, L502.0250 #### [facility] [address] [place], [place], [id number] (250) Ironon 03-05-2025 Iron [Mass/Vol] 33 ug/dL Low 50-170 [facility] Comment on above: Order Comment: Order Date: 03/02/25Order Info: [id number] - FEOrder Info: 6 - FERComments: Low ironLow Iron Performed By: #### L 501.70917, L501.9520, L500.4100, L506.0400, L500.4050, L501.9985, L502.0250 #### [facility] [address] [place], [place], [id number] Iron (Unsp spec) [Mass/Mass] Ordered By: Red Sandoval on 03-05-2025 Iron [Mass/Vol] 33 ug/dL Low 50-170 [facility] Iron measurement (mass/mass) Ordered By: Red Sandoval on 03-05-2025 Iron (Unsp spec) [Mass/Mass] 33 ug/dL Low 50-170 [facility] Serum or plasma ferritin darrel surement (mass/volume)Ordered By: Red Sandoval on 03-05-2025 Ferritin [Mass/Vol] 13 ng/mL Low 22-378 [facility] PROLACTIN 4465on 03-03-2025 PROLACTIN 62.0 ng/mL High 3.6-25.2 [facility] Comment on above: Result Comment: Perf ormed at: [facility] [id number] Car Dispatcher: Preston Ashley PhD, Phone: [phone] Performed By: #### L 501.71542, L501.9520, L500.4100, L506.0400, L500.4050, L501.9985, L502.0250 #### [facility] [address] [place], [place], [id number] Absolute lymphocyte countOrd ered By: Red Sandoval on 03-01-2025 Lymphocytes Auto (Unsp spec) [#/Vol] 0.63 10*3/uL Low 0.83-4.51 [facility] Absolute neutrophil countOrd ered By: Red Sandoval on 03-01-2025 Neutrophils (Bld) [#/Vol] 3.7 10*3/uL 2.0-7.7 [facility] Anion gap in Serum or Plasma Ordered By: Red Sandoval on 03-01-2025 Anion gap [Moles/Vol] 14 mmol/L 5-15 [facility] Automated lymphocyte count a s percentage of total leukocytesOrdered By: Red Sandoval on 03-01-2025 Lymphocytes/100 WBC Auto (Unsp spec) 12.6 % Low 19-41 [facility] BUN/creatinine ratioOrdered By: Red Sandoval on 03-01-2025 Urea nitrogen/Creatinine [Mass ratio] 11.5 mg/mg 10-20 [facility] Basophil percentageOrdered B y: Red Sandoval on 03-01-2025 Basophils/100 WBC (Bld) 0.4 % 0-1 [facility] Bilirubin, totalOrdered By: Red Sandoval on 03-01-2025 Bilirubin [Mass/Vol] 0.57 mg/dL 0.00-1.30 [facility] CBC W/Diff, Automatedon 02-13 Anisocytosis Ql (Bld) 2+ Normal [facility] Comment on above: Performed By: #### L 501.65237, L501.9520, L500.4100, L506.0400, L500.4050, L501.9985, L502.0250 #### [facility] [address] [place], [place], [id number] HYPOCHROMASIA 1+ Normal [facility] Comment on above: Performed By: #### L 501.74964, L501.9520, L500.4100, L506.0400, L500.4050, L501.9985, L502.0250 #### [facility] [address] [place], [address] PLT EST ADEQUATE Normal ADEQ [facility] Comment on above: Performed By: #### L 501.51708, L501.9520, L500.4100, L506.0400, L500.4050, L501.9985, L502.0250 #### [facility] [address] [place], [place], [id number] Calculated very low density lipoprotein (VLDL) cholesterol measurementOrdered By: Red Sandoval on 03-01-2025 Calculated very low density lipoprotein (VLDL) cholesterol measurement 27 mg/dL 5-40 [facility] VLDL Cholesterol 27 mg/dL 5-40 [facility] Carbon dioxide, total [Moles /volume] in Central venous bloodOrdered By: Red Sandoval on 03-01-2025 CO2 [Moles/Vol] 25.1 mmol/L 21.0-32.0 [facility] Chloride assayOrdered By: Yousuf Sandoval on 03-01-2025 Chloride [Moles/Vol] 99 mmol/L 98-108 [facility] Comprehensive Metabolic Prof ilon 03-01-2025 Albumin [Mass/Vol] 4.2 g/dL Normal 3.5-5.0 [facility] Comment on above: Order Comment: DR.MA BAILEY GETS RESULTS FOR CBCD CMP LIPID ANDPROLACTIN DR. SANDOVAL GETS RESULTS FOR CBCD BMP AND TROPNIN Performed By: #### L 3100.5400, L100.0100, L500.4050, L501.4021, L501.9985, L500.4100 #### [facility] [address] [place], [address] Albumin/Globulin [Mass ratio] 1.6 {ratio} Normal 0.9-2.4 [facility] Comment on above: Order Comment: DR.MA BAILEY GETS RESULTS FOR CBCD CMP LIPID ANDPROLACTIN DR. SANDOVAL GETS RESULTS FOR CBCD BMP AND TROPNIN Performed By: #### L 3100.5400, L100.0100, L500.4050, L501.4021, L501.9985, L500.4100 #### [facility] Laboratory [address] [place], [address] ALK PHOS 190 U/L High 35-104 [facility] Comment on above: Order Comment: DR.MA BAILEY GETS RESULTS FOR CBCD CMP LIPID ANDPROLACTIN DR. SANDOVAL GETS RESULTS FOR CBCD BMP AND TROPNIN Performed By: #### L 3100.5400, L100.0100, L500.4050, L501.4021, L501.9985, L500.4100 #### [facility] [address] [place], [address] ALT [Catalytic activity/Vol] 67 U/L High <=34 [facility] Comment on above: Order Comment: DR.MA BAILEY GETS RESULTS FOR CBCD CMP LIPID ANDPROLACTIN DR. SANDOVAL GETS RESULTS FOR CBCD BMP AND TROPNIN Performed By: #### L 3100.5400, L100.0100, L500.4050, L501.4021, L501.9985, L500.4100 #### [facility] [address] [place], [address] AST [Catalytic activity/Vol] 86 U/L High <=31 [facility] Comment on above: Order Comment: DR.MA BAILEY GETS RESULTS FOR CBCD CMP LIPID ANDPROLACTIN DR. SANDOVAL GETS RESULTS FOR CBCD BMP AND TROPNIN Performed By: #### L 3100.5400, L100.0100, L500.4050, L501.4021, L501.9985, L500.4100 #### [facility] [address] [place], [address] Bilirubin [Mass/Vol] 0.57 mg/dL Normal 0.00-1.30 [facility] Comment on above: Order Comment: DR.MA BAILEY GETS RESULTS FOR CBCD CMP LIPID ANDPROLACTIN DR. SANDOVAL GETS RESULTS FOR CBCD BMP AND TROPNIN Performed By: #### L 3100.5400, L100.0100, L500.4050, L501.4021, L501.9985, L500.4100 #### [facility] [address] [place], [address] BUN/CRE 11.5 RATIO Normal 10-20 [facility] Comment on above: Order Comment: DR.MA BAILEY GETS RESULTS FOR CBCD CMP LIPID ANDPROLACTIN DR. SANDOVAL GETS RESULTS FOR CBCD BMP AND TROPNIN Performed By: #### L 3100.5400, L100.0100, L500.4050, L501.4021, L501.9985, L500.4100 #### [facility] [address] [place], [address] Calcium [Mass/Vol] 8.9 mg/dL Normal 7.6-11.0 [facility] Comment on above: Order Comment: DR.MA BAILEY GETS RESULTS FOR CBCD CMP LIPID ANDPROLACTIN DR. SANDOVAL GETS RESULTS FOR CBCD BMP AND TROPNIN Performed By: #### L 3100.5400, L100.0100, L500.4050, L501.4021, L501.9985, L500.4100 #### [facility] [address] [place], [address] Chloride [Moles/Vol] 99 mmol/L Normal 98-108 [facility] Comment on above: Order Comment: DR.MA BAILEY GETS RESULTS FOR CBCD CMP LIPID ANDPROLACTIN DR. SANDOVAL GETS RESULTS FOR CBCD BMP AND TROPNIN Performed By: #### L 3100.5400, L100.0100, L500.4050, L501.4021, L501.9985, L500.4100 #### [facility] [address] [place], [address] CO2 [Moles/Vol] 25.1 mmol/L Normal 21.0-32.0 [facility] Comment on above: Order Comment: DR.MA BAILEY GETS RESULTS FOR CBCD CMP LIPID ANDPROLACTIN DR. SANDOVAL GETS RESULTS FOR CBCD BMP AND TROPNIN Performed By: #### L 3100.5400, L100.0100, L500.4050, L501.4021, L501.9985, L500.4100 #### [facility] [address] [place], [address] Creatinine [Mass/Vol] 1.04 mg/dL Normal 0.70-1.20 [facility] Comment on above: Order Comment: DR.MA BAILEY GETS RESULTS FOR CBCD CMP LIPID ANDPROLACTIN DR. SANDOVAL GETS RESULTS FOR CBCD BMP AND TROPNIN Performed By: #### L 3100.5400, L100.0100, L500.4050, L501.4021, L501.9985, L500.4100 #### [facility] [address] [place], [address] GAP 14 Normal 5-15 [facility] Comment on above: Order Comment: DR.MA BAILEY GETS RESULTS FOR CBCD CMP LIPID ANDPROLACTIN DR. SANDOVAL GETS RESULTS FOR CBCD BMP AND TROPNIN Performed By: #### L 3100.5400, L100.0100, L500.4050, L501.4021, L501.9985, L500.4100 #### [facility] [address] [place], [address] GFR/1.73 sq M.predicted among non-blacks MDRD (S/P/Bld) [Vol rate/Area] 64 mL/min/{1.73_m2} Normal >60 [facility] Comment on above: Order Comment: DR.MA BAILEY GETS RESULTS FOR CBCD CMP LIPID ANDPROLACTIN DR. SANDOVAL GETS RESULTS FOR CBCD BMP AND TROPNIN Result Comment: mL/m in/1.73m2 CKD-EPI Creatinine Equation (2020) Performed By: #### L 3100.5400, L100.0100, L500.4050, L501.4021, L501.9985, L500.4100 #### [facility] [address] [place], [address] Globulin (S) [Mass/Vol] 2.6 g/dL Normal 2.2-4.2 [facility] Comment on above: Order Comment: DR.MA BAILEY GETS RESULTS FOR CBCD CMP LIPID ANDPROLACTIN DR. SANDOVAL GETS RESULTS FOR CBCD BMP AND TROPNIN Performed By: #### L 3100.5400, L100.0100, L500.4050, L501.4021, L501.9985, L500.4100 #### [facility] [address] [place], [address] Glucose [Mass/Vol] 158 mg/dL High 70-99 [facility] Comment on above: Order Comment: DR.MA BAILEY GETS RESULTS FOR CBCD CMP LIPID ANDPROLACTIN DR. SANDOVAL GETS RESULTS FOR CBCD BMP AND TROPNIN Performed By: #### L 3100.5400, L100.0100, L500.4050, L501.4021, L501.9985, L500.4100 #### [facility] [address] [place], [address] Potassium [Moles/Vol] 4.2 mmol/L Normal 3.3-5.1 [facility] Comment on above: Order Comment: DR.MA BAILEY GETS RESULTS FOR CBCD CMP LIPID ANDPROLACTIN DR. SANDOVAL GETS RESULTS FOR CBCD BMP AND TROPNIN Performed By: #### L 3100.5400, L100.0100, L500.4050, L501.4021, L501.9985, L500.4100 #### [facility] [address] [place], [address] Sodium [Moles/Vol] 138 mmol/L Normal 133-145 [facility] Comment on above: Order Comment: DR.MA BAILEY GETS RESULTS FOR CBCD CMP LIPID ANDPROLACTIN DR. SANDOVAL GETS RESULTS FOR CBCD BMP AND TROPNIN Performed By: #### L 3100.5400, L100.0100, L500.4050, L501.4021, L501.9985, L500.4100 #### [facility] [address] [place], [place], [id number] (479) T PROT 6.8 g/dL Normal 5.9-8.4 [facility] Comment on above: Order Comment: DR.MA BAILEY GETS RESULTS FOR CBCD CMP LIPID ANDPROLACTIN DR. SANDOVAL GETS RESULTS FOR CBCD BMP AND TROPNIN Performed By: #### L 3100.5400, L100.0100, L500.4050, L501.4021, L501.9985, L500.4100 #### [facility] [address] [place], [place], [id number] Urea nitrogen [Mass/Vol] 12 mg/dL Normal 4-19 [facility] Comment on above: Order Comment: DR.MA BAILEY GETS RESULTS FOR CBCD CMP LIPID ANDPROLACTIN DR. SANDOVAL GETS RESULTS FOR CBCD BMP AND TROPNIN Performed By: #### L 3100.5400, L100.0100, L500.4050, L501.4021, L501.9985, L500.4100 #### [facility] [address] [place], [place], [id number] Eosinophil percentageOrdered By: Red Sandoval on 03-01-2025 Eosinophils/100 WBC (Bld) 4.0 % 0-5 [facility] Erythrocyte distribution wid th (RBC) [Ratio]Ordered By: Red Sandoval on 03-01-2025 Erythrocyte distribution width (RBC) [Entitic vol] 55.5 fL High 35.1-43.9 [facility] Erythrocyte distribution wid th ratioOrdered By: Red Sandoval on 03-01-2025 Erythrocyte distribution width (RBC) [Ratio] 20.9 % High 11.6-14.6 [facility] Erythrocyte distribution wid th standard deviationOrdered By: Red Sandoval on 03-01-2025 Erythrocyte distribution width (RBC) [Ratio] 55.5 fl High 35.1-43.9 [facility] GFR/1.73 sq M.predicted sonny g non-blacks MDRD (S/P/Bld) [Vol rate/Area]Ordered By: Red Sandoval on 03-01-2025 Estimated GFR (MDRD) Non-Af Amer 64 >60 [facility] Comment on above: mL/min/1.73m2 CKD-EP I Creatinine Equation (2020) Glomerular filtration rate ( GFR) estimation/1.73 sq m using serum, plasma, or whole bOrdered By: Red Sandoval on 03-01-2025 GFR/1.73 sq M.predicted among non-blacks MDRD (S/P/Bld) [Vol rate/Area] 64 mL/min/{1.73_m2} >60 [facility] Comment on above: mL/min/1.73m2 CKD-EP I Creatinine Equation (2020) Hematocrit Auto (Bld) [Volum e fraction]Ordered By: Red Sandoval on 03-01-2025 Hematocrit (Bld) [Volume fraction] 26.7 % Low 37-47 [facility] Hemoglobin A1con 03-01-2025 HbA1c (Bld) [Mass fraction] 7.6 % High <=5.6 [facility] Comment on above: Result Comment: Norm al < 5.7 % Prediabetic 5.7 - 6.4 % Diabetic >or= 6.5 % Please note range changes. Performed By: #### L 501.48880, L501.9520, L500.4100, L506.0400, L500.4050, L501.9985, L502.0250 #### [facility] [place], [address] Hemoglobin A1c percentageOrd ered By: Red Sandoval on 03-01-2025 HbA1c (Bld) [Mass fraction] 7.6 % High <5.7 [facility] Comment on above: Normal < 5.7 % Predi abetic 5.7 - 6.4 % Diabetic >or= 6.5 % Please note range changes. Hemoglobin measurementOrdere d By: Red Sandoval on 03-01-2025 Hemoglobin (Bld) [Mass/Vol] 7.2 g/dL Low 12.0-15.0 [facility] Hypochromatic red blood cell detectionOrdered By: Red Sandoval on 03-01-2025 Hypochromia Ql (Bld) 1+ [facility] Hypochromia Ql (Bld)Ordered By: Red Sandoval on 03-01-2025 Hypochromasia 1+ [facility] Immature granulocytes/100 WB C Auto (Bld)Ordered By: Red Sandoval on 03-01-2025 Immature granulocytes/100 WBC (Bld) 1.200 % High 0.0-0.9 [facility] Comment on above: IG% - Immature Granu locytes (promyelocytes, myelocytes and metamyelocytes) > 1% indicates that a LEFT SHIFT is Present. L501.4021on 03-01-2025 Trop T High Sen 14 ng/L Normal <=14 [facility] Comment on above: Order Comment: DR.MA BAILEY GETS RESULTS FOR CBCDCMPLIPID ANDPROLACTIN DR. SANDOVAL GETS RESULTS FOR CBCD BMP ANDTROPNIN Performed By: #### L 501.60179, L501.9520, L500.4100, L506.0400, L500.4050, L501.9985, L502.0250 #### [facility] [address] [place] [address], [address] LDL calc ser/plasOrdered By: Red Sandoval on 03-01-2025 Cholesterol in LDL [Mass/Vol] 117 mg/dL [facility] Comment on above: Pxqfuvehkl=768-515 m g/dL & Higher Eiua=794 mg/dL or greater LDL Cholesterol, Calculated 117 mg/dL [facility] Comment on above: Kqjsabunqn=938-165 m g/dL & Higher Srxr=062 mg/dL or greater Laboratory - Chemistry and C hemistry - challengeOrdered By: Red Sandoval on 03-01-2025 AST [Catalytic activity/Vol] 86 U/L High <32 [facility] - Hematology and Cell countsOrdered By: Red Sandoval on 03-01-2025 Anisocytosis Ql (Bld) 2+ [facility] Lipid Profileon 03-01-2025 CHOL:HDL 3.89 Normal [facility] Comment on above: Order Comment: DR.MA BAILEY GETS RESULTS FOR CBCDCMPLIPID ANDPROLACTIN DR. SANDOVAL GETS RESULTS FOR CBCD BMP ANDTROPNIN Performed By: #### L 501.28048, L501.9520, L500.4100, L506.0400, L500.4050, L501.9985, L502.0250 #### [facility] [address] [place], [place], [id number] (918) Cholesterol [Mass/Vol] 194 mg/dL Normal <=200 [facility] Comment on above: Order Comment: DR.MA BAILEY GETS RESULTS FOR CBCDCMPLIPID ANDPROLACTIN DR. SANDOVAL GETS RESULTS FOR CBCD BMP ANDTROPNIN Result Comment: Chol esterol level, Desirable <200 mg/dL Borderline high cholesterol 200-239 mg/dL High cholesterol >=240 mg/dL Recommendations of the NCEP Adult Treatment Panel for the following risk-cutoff thresholds for the [place] population. Performed By: #### L 501.46583, L501.9520, L500.4100, L506.0400, L500.4050, L501.9985, L502.0250 #### [facility] [address] [place], [place], [address] Cholesterol in HDL [Mass/Vol] 50 mg/dL Normal [facility] Comment on above: Order Comment: DR.MA BAILEY GETS RESULTS FOR CBCDCMPLIPID ANDPROLACTIN DR. SANDOVAL GETS RESULTS FOR CBCD BMP ANDTROPNIN Result Comment: Mayda onal Cholesterol Education Program (NCEP) guidelines: <40 mg/dL: Low HDL-cholesterol (major risk factor for CHD) >= 60 mg/dL: High HDL-cholesterol (negative risk factor for CHD) HDL-cholesterol is affected by a number of factors, e.g. smoking, exercise, hormones, sex and age. Performed By: #### L 501.86921, L501.9520, L500.4100, L506.0400, L500.4050, L501.9985, L502.0250 #### [facility] [address] [place], [address] Cholesterol in LDL [Mass/Vol] 117 mg/dL Normal [facility] Comment on above: Order Comment: DR.MA BAILEY GETS RESULTS FOR CBCDCMPLIPID ANDPROLACTIN DR. SANDOVAL GETS RESULTS FOR CBCD BMP ANDTROPNIN Result Comment: Bord dmfbqa=673-942 mg/dL Higher Leqb=927 mg/dL or greater Performed By: #### L 501.18306, L501.9520, L500.4100, L506.0400, L500.4050, L501.9985, L502.0250 #### [facility] [address] [place], [address] Cholesterol in VLDL [Mass/Vol] 27 mg/dL Normal 5-40 [facility] Comment on above: Order Comment: DR.MA BAILEY GETS RESULTS FOR CBCDCMPLIPID ANDPROLACTIN DR. SANDOVAL GETS RESULTS FOR CBCD BMP ANDTROPNIN Performed By: #### L 501.19881, L501.9520, L500.4100, L506.0400, L500.4050, L501.9985, L502.0250 #### [facility] [address] [place], [address] Triglyceride [Mass/Vol] 134 mg/dL Normal [facility] Comment on above: Order Comment: DR.MA BAILEY GETS RESULTS FOR CBCDCMPLIPID ANDPROLACTIN DR. SANDOVAL GETS RESULTS FOR CBCD BMP ANDTROPNIN Result Comment: The drugs N-Acetylcysteine and Metamizole may falsely depress this assay. Normal range: <150 mg/dL Borderline High: 150-199 mg/dL High: 200-499 mg/dL Very High: >500 mg/dL Performed By: #### L 501.71132, L501.9520, L500.4100, L506.0400, L500.4050, L501.9985, L502.0250 #### [facility] [place], [address] Lymphocytes Auto (Unsp spec) [#/Vol]Ordered By: Red Sandoval on 03-01-2025 Lymphocytes (Bld) [#/Vol] 0.63 10*3/uL Low 0.83-4.51 [facility] Lymphocytes/100 WBC Auto (Un sp spec)Ordered By: Red Sandoval on 03-01-2025 Lymphocytes/100 WBC (Bld) 12.6 % Low 19-41 [facility] MCV (mean corpuscular volume ) determinationOrdered By: Red Sandoval on 03-01-2025 MCV (RBC) [Entitic vol] 75.4 fL Low 81-99 [facility] Mean corpuscular hemoglobin (MCH) determinationOrdered By: Red Sandoval on 03-01-2025 MCH (RBC) [Entitic mass] 20.3 pg Low 27.0-32.0 [facility] Mean corpuscular hemoglobin concentration (MCHC) determinationOrdered By: Red Sandoval on 03-01-2025 MCHC (RBC) [Mass/Vol] 27.0 g/dL Low 32-36 [facility] Mean platelet volume determi nationOrdered By: Red Sandoval on 03-01-2025 Platelet mean volume (Bld) [Entitic vol] 10.5 fL 6.2-12.0 [facility] Monocyte percentageOrdered B y: Red Sandoval on 03-01-2025 Monocytes/100 WBC (Bld) 8.0 % 0-10 [facility] Neutrophil percentageOrdered By: Red Sandoval on 03-01-2025 Neutrophils/100 WBC (Bld) 73.8 % High 47-70 [facility] Nucleated red blood cell per centageOrdered By: Red Sandoval on 03-01-2025 Nucleated RBC/100 WBC (Bld) [Ratio] 0 % 0-5 [facility] Platelet countOrdered By: Yousuf Sandoval on 03-01-2025 Platelet Count See comment 150-450 [facility] Comment on above: Please note: For thi s sample, a platelet estimate is provided rather than a platelet count due to platelet clumping. Other parameters associated with this sample are not affected by platelet clumping. If a more accurate platelet count is required, a redraw of the patient will be necessary. Platelet estimateOrdered By: Red Sandoval on 03-01-2025 Platelets LM Ql (Bld) ADEQUATE ADEQ [facility] Platelets LM Ql (Bld)Ordered By: Red Sandoval on 03-01-2025 Platelet Estimate ADEQUATE ADEQ [facility] Potassium (Unsp spec) [Mass/ Vol]Ordered By: Red Sandoval on 03-01-2025 Potassium [Moles/Vol] 4.2 mmol/L 3.3-5.1 [facility] Potassium measurement (mass/ volume)Ordered By: Red Sandoval on 03-01-2025 Potassium (Unsp spec) [Mass/Vol] 4.2 mmol/L 3.3-5.1 [facility] Prolactin [Mass/Vol]Ordered By: Red Sandoval on 03-01-2025 Prolactin 62.0 ng/mL High 3.6-25.2 [facility] Comment on above: Performed at: [address] Director: Preston Ashley PhD, Phone: [phone] RBC Auto (Bld) [#/Vol]Ordere d By: Red Sandoval on 03-01-2025 RBC (Bld) [#/Vol] 3.54 10*6/uL Low 4.2-5.4 [facility] Screening total cholesterol/ high density lipoprotein (HDL) cholesterol ratioOrdered By: Red Sandoval on 03-01-2025 Cholesterol.total/Choles terol in HDL [Mass ratio] 3.89 {ratio} [facility] Serum creatinine measurement (mass/volume)Ordered By: Red Sandoval on 03-01-2025 Creatinine [Mass/Vol] 1.04 mg/dL 0.70-1.20 [facility] Serum globulin measurementOr dered By: Red Sandoval on 03-01-2025 Globulin (S) [Mass/Vol] 2.6 g/dL 2.2-4.2 [facility] Serum glucose measurement (m ass/volume)Ordered By: Red Sandoval on 03-01-2025 Glucose [Mass/Vol] 158 mg/dL High 70-99 [facility] Serum or plasma alanine cueto otransferase (ALT) measurementOrdered By: Red Sandoval on 03-01-2025 ALT [Catalytic activity/Vol] 67 U/L High <35 [facility] Serum or plasma albumin sandy urement (mass/volume)Ordered By: Red Sandoval on 03-01-2025 Albumin [Mass/Vol] 4.2 g/dL 3.5-5.0 [facility] Serum or plasma albumin/glob ulin mass ratioOrdered By: Red Sandoval on 03-01-2025 Albumin/Globulin [Mass ratio] 1.6 {ratio} 0.9-2.4 [facility] Serum or plasma alkaline rebecca sphatase measurementOrdered By: Red Sandoval on 03-01-2025 ALP [Catalytic activity/Vol] 190 U/L High 35-104 [facility] Serum or plasma calcium sandy urement (mass/volume)Ordered By: Red Sandoval on 03-01-2025 Calcium [Mass/Vol] 8.9 mg/dL 7.6-11.0 [facility] Serum or plasma cholesterol in HDL measurement (mass/volume)Ordered By: Red Sandoval on 03-01-2025 Cholesterol in HDL [Mass/Vol] 50 mg/dL >40 [facility] Comment on above: National Cholesterol Education Program (NCEP) guidelines:<40 mg/dL: Low HDL-cholesterol (major risk factor for CHD)>= 60 mg/dL: High HDL-cholesterol (negative risk factor for CHD)HDL-cholesterol is affected by a number of factors, e.g. smoking, exercise, hormones, sex and age. Serum or plasma cholesterol measurement (mass/volume)Ordered By: Red Sandoval on 03-01-2025 Cholesterol [Mass/Vol] 194 mg/dL <201 [facility] Comment on above: Cholesterol level, D esirable <200 mg/dLBorderline high cholesterol 200-239 mg/dLHigh cholesterol >=240 mg/dLRecommendations of the NCEP Adult Treatment Panel for the following risk-cutoff thresholds for the [place] population. Serum or plasma prolactin me asurement (mass/volume)Ordered By: Red Sandoval on 03-01-2025 Prolactin [Mass/Vol] 62.0 ng/mL High 3.6-25.2 [facility] Comment on above: Performed at: [address] [id number] Director: Preston Ashley PhD, Phone: [phone] Serum or plasma urea nitroge n measurement (mass/volume)Ordered By: Red Sandoval on 03-01-2025 Urea nitrogen [Mass/Vol] 12 mg/dL 4-19 [facility] Sodium levelOrdered By: Red Sandoval on 03-01-2025 Sodium [Moles/Vol] 138 mmol/L 133-145 [facility] Total proteinOrdered By: Senait Sandoval on 03-01-2025 Protein [Mass/Vol] 6.8 g/dL 5.9-8.4 [facility] Triglycerides measurementOrd ered By: Red Sandoval on 03-01-2025 Triglyceride [Mass/Vol] 134 mg/dL <199 [facility] Comment on above: The drugs N-Acetylcy steine and Metamizole may falsely depress this assay. Normal range: <150 mg/dLBorderline High: 150-199 mg/dLHigh: 200-499 mg/dLVery High: >500 mg/dL Troponin T.cardiac High sens itivity method [Mass/Vol]Ordered By: Red Sandoval on 03-01-2025 Troponin T High Sensitivity 14 ng/L <14 [facility] Troponin T.cardiac [Mass/vol ume] in Serum or Plasma by High sensitivity methodOrdered By: Red Sandoval on 03-01-2025 Troponin T.cardiac High sensitivity method [Mass/Vol] 14 ng/L <14 [facility] White blood cell (WBC) count Ordered By: Red Sandoval on 03-01-2025 WBC (Bld) [#/Vol] 5.0 10*3/uL 4.4-11.0 [facility] Urgent Care Visit Reporton 1 12-08-2023 Urgent Care Visit Report [facility] [address], [address] [place], [place] [address] OFFICE VISIT Date of Service: 10/08/24 MR#: [id number] Acct: [id number] Name: HEIDI ANDREWS Rep #: [id number] : 1970 Provider: DELILAH hansen Age/Sex: 54/F Location: [facility] Status: Signed Intake Vital Signs 12/01/22 09:27 10/08/24 08:02 Height 5 ft 6 in 5 ft 6 in Weight: 278 lb 4 oz BMI 44.9 BP 120/80 Pulse 78 Temp 98.5 F Temp Source Oral Pulse Oximetry (%) 97 Oxygen Delivery Method room air Intake Visit Reasons: SINUS/COUGH Accompanied by: Self Allergies No Known Allergies Allergy (Verified 10/08/24 08:20) Medications ???Medication ???Instructions ???Recorded ???Confirmed ???Type clonidine HCl 0.1 mg tablet 0.1 mg PO BID 11/10/22 10/08/24 History fluoxetine 20 mg capsule (Prozac) 20 mg PO DAILY 11/10/22 10/08/24 History gemfibrozil 600 mg tablet 600 mg PO BID 11/10/22 10/08/24 History lamotrigine 150 mg tablet 150 mg PO BID 11/10/22 10/08/24 History levothyroxine 88 mcg tablet 88 mcg PO DAILY 11/10/22 10/08/24 History (Levoxyl) metformin 1,000 mg tablet 1,000 mg PO BID 11/10/22 10/08/24 History metoprolol succinate 200 mg 200 mg PO DAILY 11/10/22 10/08/24 History tablet,extended release 24 hr (Toprol XL) risperidone 2 mg tablet (Risperdal) 2 mg PO QHS 11/10/22 10/08/24 History valsartan 320 1 tab PO DAILY 11/10/22 10/08/24 History mg-hydrochlorothiazi de 12.5 mg tablet (Diovan HCT) azithromycin 250 mg tablet See Rx Instructions PO .COMPLEX #6 10/08/24 10/08/24 Rx (Zithromax Z-Navneet) tabs methylprednisolone 4 mg tablets in See Rx Instructions PO PER PKG DIR 10/08/24 10/08/24 Rx a dose pack (Medrol (Navneet)) #21 tabs PFSH Medical History (Updated 10/08/24 @ 08:54 by Enrique H Roof [employer], [employer]) Wears glasses Thyroid disease Diabetes Anemia Former smoker Diabetes Anxiety Psoriasis Hypothyroid Vitamin D deficiency Hypertriglyceridemia Bipolar disorder, unspecified HTN (hypertension) Surgical History Hx of section Hx of bilateral breast reduction surgery Family History (Updated 11/10/22 @ 16:17 by Cristy Hernandez) Father Hypertension Diabetes Sister Anxiety Social History (Updated 11/10/22 @ 16:16 by Cristy Hernandez) household members: spouse Smoking Status: Former smoker HPI HPI Details: HEIDI ANDREWS, is a 54 F who presents to the office today for Cough, Wheezing,SOB, ST and laryngitis. Patient the laryngitis started Wednesday and then though out the week she got a cough and this weekend she has developed SOB, Wheezing, and ST. Patient states the wheezing and SOB are getting worse. She denies such symptoms previous. She did not receive Flu or COVID-19 vaccinations. ROS Const Constitutional: No body ache, chills, fatigue, fever(s), headache(s) or change in appetite Eyes Eyes: No blurry vision, change in vision, double vision, irritation, discharge, vision loss, dry eyes, bulging eyes, floaters, visual disturbances, eye pain, Light sensitivity, spots in vision, tunnel vision or other ENT ENT: Positive for hoarseness and sore throat; No ear or mastoid pain, ear discharge, ear pressure, tinnitus, dizziness/vertigo, nosebleed/epistaxis, nasal congestion, nose pain, sinus pressure, sinus pain, nasal discharge, post nasal drip, headache(s), facial pain, dental pain, difficulty swallowing, bad breath, lip swelling, mouth lesions, mouth pain, neck pain, tongue swelling or throat swelling Resp Respiratory: Positive for cough, shortness of breath and wheezing; No change in phlegm color, chest congestion, hemoptysis, pain on inspiration, pain with cough or stridor Cardio Cardiology: No chest pain at rest, chest pain with exertion, shortness of breath, dyspnea on exertion or lightheadedness Gastro GI: No abdominal pain, change in bowel habits or difficulty swallowing Genitourinary-Female : No burning urination or urinary frequency Musc Musculoskeletal: No joint pain or neck pain Skin Skin: No rash Neuro Neurology: No headache(s) or visual disturbances Psych Psychiatric: No change in appetite Endo Endocrine: No fatigue Aller/Imm Allergy/Immunologic: Positive for wheezing; No lip swelling, throat swelling or tongue swelling Exam Const General: cooperative, healthy appearing, comfortable and no acute distress Orientation: alert, awake and oriented x3 HENMT Head: normal to inspection and normocephalic Ears: hearing grossly normal bilaterally, external ears normal and TM's normal bilaterally Nose: external nose normal, nares normal and no nasal discharge Face and sinus: normal facial exam and sinuses nontender Mouth: oral mucosae normal, lip normal, tongue normal, oropharynx normal and moist mu (more content not included)... Normal [facility] Comprehensive Metabolic Prof ilon 07-27-2024 Albumin [Mass/Vol] 3.3 g/dL Normal 3.2-5.0 [facility] Comment on above: Performed By: #### L 501.08511, L501.9520, L500.4100, L506.0400, L500.4050, L501.9985, L502.0250 #### [facility] [address] [facility] [place], [address] Albumin/Globulin [Mass ratio] 1.0 {ratio} Normal 0.9-2.4 [facility] Comment on above: Performed By: #### L [id number], L501.9520, L500.4100, L506.0400, L500.4050, L501.9985, L502.0250 #### [facility] [address] [place], [address] ALK P 77 U/L Normal 45-117 [facility] Comment on above: Performed By: #### L 501.13436, L501.9520, L500.4100, L506.0400, L500.4050, L501.9985, L502.0250 #### [facility] [address] [place], [address] ALT [Catalytic activity/Vol] 10 U/L Low 13-56 [facility] Comment on above: Performed By: #### L 501.65771, L501.9520, L500.4100, L506.0400, L500.4050, L501.9985, L502.0250 #### [facility] [address] [place], [address] AST [Catalytic activity/Vol] 6 U/L Low 15-37 [facility] Comment on above: Performed By: #### L 501.84262, L501.9520, L500.4100, L506.0400, L500.4050, L501.9985, L502.0250 #### [facility] [address] [place], [address] Bilirubin [Mass/Vol] 0.30 mg/dL Normal 0.20-1.00 [facility] Comment on above: Result Comment: For patients on eltrombopag therapy, use of Dimension Oden TBIL is not recommended. Performed By: #### L 501.14973, L501.9520, L500.4100, L506.0400, L500.4050, L501.9985, L502.0250 #### [facility] [address] [place], [address] BUN/CRE 16.0 RATIO Normal 10-20 [facility] Comment on above: Performed By: #### L 501.66327, L501.9520, L500.4100, L506.0400, L500.4050, L501.9985, L502.0250 #### [facility] [address] [place], [address] CA,Total 9.0 mg/dL Normal 8.5-10.1 [facility] Comment on above: Performed By: #### L 501.46182, L501.9520, L500.4100, L506.0400, L500.4050, L501.9985, L502.0250 #### [facility] [address] [place], [address] Chloride [Moles/Vol] 104 mmol/L Normal 98-107 [facility] Comment on above: Performed By: #### L 501.24400, L501.9520, L500.4100, L506.0400, L500.4050, L501.9985, L502.0250 #### [facility] [address] [place], [place], [phone] ([phone] CO2 [Moles/Vol] 26.0 mmol/L Normal 21.0-32.0 [facility] Comment on above: Performed By: #### L 501.33181, L501.9520, L500.4100, L506.0400, L500.4050, L501.9985, L502.0250 #### [facility] [address] [place], [place], [phone] ([phone]) Creatinine [Mass/Vol] 0.94 mg/dL Normal 0.55-1.02 [facility] Comment on above: Result Comment: The validity of the calculated GFR GFRAA in patients over 70 years has not been determined. Clinical correlation is essential. Performed By: #### L 501.62036, L501.9520, L500.4100, L506.0400, L500.4050, L501.9985, L502.0250 #### [facility] [address] [place], [place], [phone] ([phone]) EST GFR - AA 81 mL/min Normal >60 [facility] Comment on above: Result Comment: Afri can [place] GFR Calc Performed By: #### L 501.27081, L501.9520, L500.4100, L506.0400, L500.4050, L501.9985, L502.0250 #### [facility] [address] [place], [address] GAP 6 Normal 5-15 [facility] Comment on above: Performed By: #### L 501.23193, L501.9520, L500.4100, L506.0400, L500.4050, L501.9985, L502.0250 #### [facility] [address] [place], [address] GFR/1.73 sq M.predicted among non-blacks MDRD (S/P/Bld) [Vol rate/Area] 67 mL/min/{1.73_m2} Normal >60 [facility] Comment on above: Result Comment: Non- GFR Calc Performed By: #### L 501.49759, L501.9520, L500.4100, L506.0400, L500.4050, L501.9985, L502.0250 #### [facility] [address] [place], [address] Globulin (S) [Mass/Vol] 3.4 g/dL Normal 2.2-4.2 [facility] Comment on above: Performed By: #### L 501.44349, L501.9520, L500.4100, L506.0400, L500.4050, L501.9985, L502.0250 #### [facility] [address] [place], [address] Glucose [Mass/Vol] 137 mg/dL High 74-106 [facility] Comment on above: Result Comment: Fast ing Glucose result greater than or equal to 126 mg/dL suggests DIABETES MELLITUS per A.D.A. criteria. Performed By: #### L 501.22053, L501.9520, L500.4100, L506.0400, L500.4050, L501.9985, L502.0250 #### [facility] [address] [place], [address] Potassium [Moles/Vol] 3.9 mmol/L Normal 3.5-5.1 [facility] Comment on above: Performed By: #### L 501.37759, L501.9520, L500.4100, L506.0400, L500.4050, L501.9985, L502.0250 #### [facility] [address] [place], [address] Sodium [Moles/Vol] 136 mmol/L Normal 136-145 [facility] Comment on above: Performed By: #### L 501.13248, L501.9520, L500.4100, L506.0400, L500.4050, L501.9985, L502.0250 #### [facility] [address] [place], [address] T PROT 6.7 g/dL Normal 6.4-8.2 [facility] Comment on above: Performed By: #### L 501.43139, L501.9520, L500.4100, L506.0400, L500.4050, L501.9985, L502.0250 #### [facility] [address] [place], [address] Urea nitrogen [Mass/Vol] 15 mg/dL Normal 7-18 [facility] Comment on above: Performed By: #### L 501.79267, L501.9520, L500.4100, L506.0400, L500.4050, L501.9985, L502.0250 #### [facility] [address] [place], [address] Free T3on 07-27-2024 Free T3 [Mass/Vol] 1.8 pg/mL Low 2.18-3.98 [facility] Comment on above: Performed By: #### L 501.99348, L501.9520, L500.4100, L506.0400, L500.4050, L501.9985, L502.0250 #### [facility] [address] [place], [address] Hemoglobin A1con 07-27-2024 HbA1c (Bld) [Mass fraction] 6.5 % High 3.8-5.6 [facility] Comment on above: Result Comment: Norm al < 5.7 % Prediabetic 5.7 - 6.4 % Diabetic >or= 6.5 % Please note range changes. Performed By: #### L 501.11836, L501.9520, L500.4100, L506.0400, L500.4050, L501.9985, L502.0250 #### [facility] [address] [place], [address] Lipid Profileon 07-27-2024 Cholesterol [Mass/Vol] 190 mg/dL Normal 200 [facility] Comment on above: Result Comment: <200 mg/dL Desirable 200-240 mg/dL Borderline >240 mg/dL High Risk Performed By: #### L 501.33449, L501.9520, L500.4100, L506.0400, L500.4050, L501.9985, L502.0250 #### [facility] [address] [place], [address] Cholesterol in HDL [Mass/Vol] 41 mg/dL Normal [facility] Comment on above: Result Comment: The drugs N-Acetylcysteine and Metamizole may falsely depress this assay. Reference Range HDL <40 mg/dL Low HDL Cholesterol HDL >or= 60 mg/dL High HDL Cholesterol Performed By: #### L 501.92925, L501.9520, L500.4100, L506.0400, L500.4050, L501.9985, L502.0250 #### [facility] [address] [place], [address] Cholesterol in LDL [Mass/Vol] 113 mg/dL Normal 0-130 [facility] Comment on above: Performed By: #### L 501.43014, L501.9520, L500.4100, L506.0400, L500.4050, L501.9985, L502.0250 #### [facility] [address] [place], [address] Cholesterol in VLDL [Mass/Vol] 36 mg/dL Normal 5-40 [facility] Comment on above: Performed By: #### L 501.58896, L501.9520, L500.4100, L506.0400, L500.4050, L501.9985, L502.0250 #### [facility] [address] [place], [place], [phone] ([phone]) Triglyceride [Mass/Vol] 178 mg/dL Normal [facility] Comment on above: Result Comment: The drugs N-Acetylcysteine and Metamizole may falsely depress this assay. Serum Triglycerides Reference Interval Normal <150 mg/dL Borderline high 150 - 199 mg/dL High 200 - 499 mg/dL Very High > or = 500 mg/dL Performed By: #### L 501.91932, L501.9520, L500.4100, L506.0400, L500.4050, L501.9985, L502.0250 #### [facility] [address] [place], [address] (273) Microalb:Creat Ratio,Random URon 07-27-2024 Creatinine [Mass/Vol] 86.80 mg/dL Normal NO RANGE EST. [facility] Comment on above: Performed By: #### L 501.25902, L501.9520, L500.4100, L506.0400, L500.4050, L501.9985, L502.0250 #### [facility] [address] [place], [place], [id number] MALB:CRE 8.4 mg/g CRE Normal <30 mg/g CRE [facility] Comment on above: Performed By: #### L 501.72582, L501.9520, L500.4100, L506.0400, L500.4050, L501.9985, L502.0250 #### [facility] [address] [place], [place], [phone] (265) MICROALBUMIN,UR 7.3 mg/L Normal NO RANGE EST. [facility] Comment on above: Performed By: #### L 501.05123, L501.9520, L500.4100, L506.0400, L500.4050, L501.9985, L502.0250 #### [facility] [address] [place], [address] T4 Free Directon 07-27-2024 T4 FREE DIRECT 1.26 ng/dL Normal 0.76-1.46 [facility] Comment on above: Performed By: #### L 501.72544, L501.9520, L500.4100, L506.0400, L500.4050, L501.9985, L502.0250 #### [facility] [address] [place], [address] Thyroid Stim Hormone (TSH)on 07-27-2024 TSH 3.370 uIU/mL Normal 0.358-3.740 [facility] Comment on above: Performed By: #### L 501.37476, L501.9520, L500.4100, L506.0400, L500.4050, L501.9985, L502.0250 #### [facility] [address] [place], [address] Cervical or vagninal specime n microscopic examination by cytology stain (reported asOrdered By: Patricia Thompson on 02-07-2024 Cytology report Cyto stain Doc (Cvx/Vag) Comment . [facility] Comment on above: The Pap smear is a s creening test designed to aid in thedetection of premalignant and malignant conditions of theuterine cervix. It is not a diagnostic procedure andshould not be used as the sole means of detecting cervicalcancer. Both false-positive and false-negative reports dooccur. Detection in cervical specim en of any of human papilloma virus (HPV) 16, 18, 31, 33,Ordered By: Patricia Thompson on 02-07-2024 HPV 16+18+31+33+35+39+45+51+ 52+56+58+59+66+68 DNA Probe+sig amp Ql (Cvx) Negative Negative [facility] Comment on above: This nucleic acid am plification test detects fourteen high-risk HPV types (16,18,31,33,35,39,45,51,52,56,58,59,66,68)without differentiation.Performed at: [facility] [id number] Director: Cierra Chew MD, Phone: [phone] at: =G - [facility] [address] [id number] Director: Cierra Chew MD, Phone: [phone] Laboratory - CytologyOrdered By: Patricia Thompson on 02-07-2024 Cardiac Cath Technician Cyto stain Nom (Cvx/Vag) [ID] Comment . [facility] Comment on above: Pema Kincaid, Cyto technologist (ASCP) Laboratory - Miscellaneous t estsOrdered By: Patricia Thompson on 02-07-2024 Service comment (Unsp spec) [Interp] . . [facility] Thin prep Papanicolaou smear with manual screeningOrdered By: Patricia Thompson on 02-07-2024 Thin prep Papanicolaou smear with manual screening Comment . [facility] Comment on above: NEGATIVE FOR INTRAEP ITHELIAL LESION OR MALIGNANCY. This liquid based Th inPrep(R) pap test was screened withthe use of an image guided system. Basophil percentageOrdered B y: Red Sandoval on 01-19-2024 Chloride [Moles/Vol] 104 mmol/L 98-107 [facility] Cholesterol [Mass/Vol] 197 mg/dL <200 [facility] Comment on above: <200 mg/dL Desirable 200-240 mg/dL Borderline >240 mg/dL High Risk Glucose [Mass/Vol] 108 mg/dL 74-106 [facility] Comment on above: Fasting Glucose resu lt from 100 to 125 mg/dL suggests IMPAIRED HOMEOSTASIS per A.D.A. criteria. Potassium [Moles/Vol] 4.2 mmol/L 3.5-5.1 [facility] Sodium [Moles/Vol] 136 mmol/L 136-145 [facility] Triglyceride [Mass/Vol] 132 mg/dL <199 [facility] Comment on above: The drugs N-Acetylcy steine and Metamizole may falsely depress this assay.Serum Triglycerides Reference Interval Normal <150 mg/dL Borderline high 150 - 199 mg/dL High 200 - 499 mg/dL Very High > or = 500 mg/dL Laboratory - Chemistry and C hemistry - challengeOrdered By: Red Sandoval on 01-19-2024 Cholesterol in HDL [Mass/Vol] 43 mg/dL >40 [facility] Comment on above: The drugs N-Acetylcy steine and Metamizole may falsely depress this assay. Reference Range HDL <40 mg/dL Low HDL Cholesterol HDL >or= 60 mg/dL High HDL Cholesterol Cholesterol in LDL [Mass/Vol] 128 mg/dL 0-130 [facility] CO2 [Moles/Vol] 27.0 mmol/L 21.0-32.0 [facility] Urea nitrogen/Creatinine [Mass ratio] 10.7 mg/mg 10-20 [facility] No Panel InformationOrdered By: Red Sandoval on 01-19-2024 Estimated GFR (MDRD) Amer 81 mL/min >60 [facility] Comment on above: GFR Calc Estimated GFR (MDRD) Non-Af Amer 67 mL/min >60 [facility] Comment on above: Non- GFR Calc Free Triiodothyronine (T3) pg/dL 2.0 pg/mL 2.18-3.98 [facility] VLDL Cholesterol 26 mg/dL 5-40 [facility] Serum or plasma calcium sandy urement (mass/volume)Ordered By: Red Sandoval on 01-19-2024 Calcium [Mass/Vol] 8.9 mg/dL 8.5-10.1 [facility] Serum or plasma creatinine m easurement (mass/volume)Ordered By: Red Sandoval on 01-19-2024 Creatinine [Mass/Vol] 0.93 mg/dL 0.55-1.02 [facility] Comment on above: The validity of the calculated GFR & GFRAA in patients over 70 years has not been determined. Clinical correlation is essential. Serum or plasma thyroid stim ulating hormone (TSH) measurement (units/volume)Ordered By: Red Sandoval on 01-19-2024 TSH Qn 2.60 uIU/mL 0.358-3.74 [facility] Serum or plasma urea nitroge n measurement (mass/volume)Ordered By: Red Sandoval on 01-19-2024 Urea nitrogen [Mass/Vol] 10 mg/dL 7-18 [facility] Thin prep Papanicolaou smear with manual screeningOrdered By: Red Sandoval on 01-19-2024 Thin prep Papanicolaou smear with manual screening 5 5-15 [facility] Thin prep Papanicolaou smear with manual screening 1.33 ng/dL 0.76-1.46 [facility] Basophil percentageOrdered B y: Red Sandoval on 07-26-2023 Chloride [Moles/Vol] 104 mmol/L 98-107 [facility] Cholesterol [Mass/Vol] 186 mg/dL <200 [facility] Comment on above: <200 mg/dL Desirable 200-240 mg/dL Borderline >240 mg/dL High Risk Glucose [Mass/Vol] 121 mg/dL 74-106 [facility] Comment on above: Fasting Glucose resu lt from 100 to 125 mg/dL suggests IMPAIRED HOMEOSTASIS per A.D.A. criteria. Potassium [Moles/Vol] 3.8 mmol/L 3.5-5.1 [facility] Sodium [Moles/Vol] 139 mmol/L 136-145 [facility] Triglyceride [Mass/Vol] 198 mg/dL <199 [facility] Comment on above: The drugs N-Acetylcy steine and Metamizole may falsely depress this assay.Serum Triglycerides Reference Interval Normal <150 mg/dL Borderline high 150 - 199 mg/dL High 200 - 499 mg/dL Very High > or = 500 mg/dL Laboratory - Chemistry and C hemistry - challengeOrdered By: Red Sandoval on 07-26-2023 CO2 [Moles/Vol] 27.0 mmol/L 21.0-32.0 [facility] Urea nitrogen/Creatinine [Mass ratio] 10.4 mg/mg 10-20 [facility] No Panel InformationOrdered By: Red Sandoval on 07-26-2023 Estimated GFR (MDRD) Amer 79 mL/min >60 [facility] Comment on above: GFR Calc Estimated GFR (MDRD) Non-Af Amer 65 mL/min >60 [facility] Comment on above: Non- GFR Calc Thyroid Stimulating Hormone (TSH) 1.67 uIU/mL 0.358-3.74 [facility] Serum or plasma calcium sandy urement (mass/volume)Ordered By: Red Sandoval on 07-26-2023 Calcium [Mass/Vol] 8.8 mg/dL 8.5-10.1 [facility] Serum or plasma cholesterol in HDL measurement (mass/volume)Ordered By: Red Sandoval on 07-26-2023 Cholesterol in HDL [Mass/Vol] 36 mg/dL >40 [facility] Comment on above: The drugs N-Acetylcy steine and Metamizole may falsely depress this assay. Reference Range HDL <40 mg/dL Low HDL Cholesterol HDL >or= 60 mg/dL High HDL Cholesterol Serum or plasma cholesterol in VLDL measurement (mass/volume)Ordered By: Red Sandoval on 07-26-2023 Cholesterol in VLDL [Mass/Vol] 40 mg/dL 5-40 [facility] Serum or plasma creatinine m easurement (mass/volume)Ordered By: Red Sandoval on 07-26-2023 Creatinine [Mass/Vol] 0.96 mg/dL 0.55-1.02 [facility] Comment on above: The validity of the calculated GFR & GFRAA in patients over 70 years has not been determined. Clinical correlation is essential. Serum or plasma low density lipoprotein (LDL) cholesterol measurement (mass/volume)Ordered By: Red Sandoval on 07-26-2023 Cholesterol in LDL [Mass/Vol] 110 mg/dL 0-130 [facility] Serum or plasma urea nitroge n measurement (mass/volume)Ordered By: Red Sandoval on 07-26-2023 Urea nitrogen [Mass/Vol] 10 mg/dL 7-18 [facility] Thin prep Papanicolaou smear with manual screeningOrdered By: Red Sandoval on 07-26-2023 Thin prep Papanicolaou smear with manual screening 8 5-15 [facility] Whole blood hemoglobin A1c/t otal hemoglobin ratio (mass fraction)Ordered By: Red Sandoval on 07-26-2023 HbA1c (Bld) [Mass fraction] 5.6 % 3.8-5.6 [facility] Comment on above: Normal < 5.7 % Predi abetic 5.7 - 6.4 % Diabetic >or= 6.5 % Please note range changes. Basophil percentageOrdered B y: Dr. Sandoval on 01-25-2023 Chloride [Moles/Vol] 105 mmol/L 98-107 [facility] Cholesterol [Mass/Vol] 194 mg/dL <200 [facility] Comment on above: <200 mg/dL Desirable 200-240 mg/dL Borderline >240 mg/dL High Risk Glucose [Mass/Vol] 123 mg/dL 74-106 [facility] Comment on above: Fasting Glucose resu lt from 100 to 125 mg/dL suggests IMPAIRED HOMEOSTASIS per A.D.A. criteria. Potassium [Moles/Vol] 3.6 mmol/L 3.5-5.1 [facility] Sodium [Moles/Vol] 140 mmol/L 136-145 [facility] Triglyceride [Mass/Vol] 166 mg/dL <199 [facility] Comment on above: The drugs N-Acetylcy steine and Metamizole may falsely depress this assay.Serum Triglycerides Reference Interval Normal <150 mg/dL Borderline high 150 - 199 mg/dL High 200 - 499 mg/dL Very High > or = 500 mg/dL Laboratory - Chemistry and C hemistry - challengeOrdered By: Dr. Sandoval on 01-25-2023 CO2 [Moles/Vol] 25.0 mmol/L 21.0-32.0 [facility] Free T4 [Mass/Vol] 1.31 ng/dL 0.76-1.46 [facility] Urea nitrogen/Creatinine [Mass ratio] 12.0 mg/mg 10-20 [facility] No Panel InformationOrdered By: Dr. Sandoval on 01-25-2023 Estimated GFR (MDRD) Amer 58 mL/min >60 [facility] Comment on above: GFR Calc Estimated GFR (MDRD) Non-Af Amer 48 mL/min >60 [facility] Comment on above: Non- GFR Calc Free Triiodothyronine (T3) pg/dL 1.5 pg/mL 2.18-3.98 [facility] Thyroid Stimulating Hormone (TSH) 1.52 uIU/mL 0.358-3.74 [facility] Serum or plasma calcium sandy urement (mass/volume)Ordered By: Dr. Sandoval on 01-25-2023 Calcium [Mass/Vol] 9.5 mg/dL 8.5-10.1 [facility] Serum or plasma cholesterol in HDL measurement (mass/volume)Ordered By: Dr. Sandoval on 01-25-2023 Cholesterol in HDL [Mass/Vol] 39 mg/dL >40 [facility] Comment on above: The drugs N-Acetylcy steine and Metamizole may falsely depress this assay. Reference Range HDL <40 mg/dL Low HDL Cholesterol HDL >or= 60 mg/dL High HDL Cholesterol Serum or plasma cholesterol in VLDL measurement (mass/volume)Ordered By: Dr. Sandoval on 01-25-2023 Cholesterol in VLDL [Mass/Vol] 33 mg/dL 5-40 [facility] Serum or plasma creatinine m easurement (mass/volume)Ordered By: Dr. Sandoval on 01-25-2023 Creatinine [Mass/Vol] 1.25 mg/dL 0.55-1.02 [facility] Comment on above: The validity of the calculated GFR & GFRAA in patients over 70 years has not been determined. Clinical correlation is essential. Serum or plasma low density lipoprotein (LDL) cholesterol measurement (mass/volume)Ordered By: Dr. Sandoval on 01-25-2023 Cholesterol in LDL [Mass/Vol] 122 mg/dL 0-130 [facility] Serum or plasma urea nitroge n measurement (mass/volume)Ordered By: Dr. Sandoval on 01-25-2023 Urea nitrogen [Mass/Vol] 15 mg/dL 7-18 [facility] Thin prep Papanicolaou smear with manual screeningOrdered By: Dr. Sandoval on 01-25-2023 Thin prep Papanicolaou smear with manual screening 10 5-15 [facility] Glucose Glucometer (BldC) [M ass/Vol]Ordered By: Dr. Marie on 12-01-2022 Glucose [Mass/Vol] 147 mg/dL 74-106 [facility] Comment on above: MANAGEMENT OF PATIEN T CARE PER NURSING PROTOCOL Basophil percentageon 2021 Chloride [Moles/Vol] 107 mmol/L 98-107 [facility] Work Phone: Cholesterol [Mass/Vol] 175 mg/dL <200 [facility] Work Phone: Comment on above: <200 mg/dL Desirable 200-240 mg/dL Borderline >240 mg/dL High Risk Glucose [Mass/Vol] 117 mg/dL 74-106 [facility] Work Phone: Comment on above: Fasting Glucose resu lt from 100 to 125 mg/dL suggests IMPAIRED HOMEOSTASIS per A.D.A. criteria. Potassium [Moles/Vol] 4.0 mmol/L 3.5-5.1 [facility] Work Phone: Sodium [Moles/Vol] 140 mmol/L 136-145 [facility] Work Phone: Triglyceride [Mass/Vol] 141 mg/dL <199 [facility] Work Phone: Comment on above: The drugs N-Acetylcy steine and Metamizole may falsely depress this assay.Serum Triglycerides Reference Interval Normal <150 mg/dL Borderline high 150 - 199 mg/dL High 200 - 499 mg/dL Very High > or = 500 mg/dL Laboratory - Chemistry and C hemistry - challengeon 07-27-2022 CO2 [Moles/Vol] 23.0 mmol/L 21.0-32.0 [facility] Work Phone: Free T4 [Mass/Vol] 1.26 ng/dL 0.76-1.46 [facility] Work Phone: Urea nitrogen/Creatinine [Mass ratio] 9.6 mg/mg 10-20 [facility] Work Phone: No Panel Informationon 07-27 Estimated GFR (MDRD) Amer 72 mL/min >60 [facility] Work Phone: Comment on above: GFR Calc Estimated GFR (MDRD) Non-Af Amer 60 mL/min >60 [facility] Work Phone: Comment on above: Non- GFR Calc Free Triiodothyronine (T3) pg/dL 2.0 pg/mL 2.18-3.98 [facility] Work Phone: Thyroid Stimulating Hormone (TSH) 1.24 uIU/mL 0.358-3.74 [facility] Work Phone: Serum or plasma calcium sandy urement (mass/volume)on 07-27-2022 Calcium [Mass/Vol] 9.1 mg/dL 8.5-10.1 [facility] Work Phone: Serum or plasma cholesterol in HDL measurement (mass/volume)on 07-27-2022 Cholesterol in HDL [Mass/Vol] 41 mg/dL >40 [facility] Work Phone: Comment on above: The drugs N-Acetylcy steine and Metamizole may falsely depress this assay. Reference Range HDL <40 mg/dL Low HDL Cholesterol HDL >or= 60 mg/dL High HDL Cholesterol Serum or plasma cholesterol in VLDL measurement (mass/volume)on 07-27-2022 Cholesterol in VLDL [Mass/Vol] 28 mg/dL 5-40 [facility] Work Phone: Serum or plasma creatinine m easurement (mass/volume)on 07-27-2022 Creatinine [Mass/Vol] 1.04 mg/dL 0.55-1.02 [facility] Work Phone: Comment on above: The validity of the calculated GFR & GFRAA in patients over 70 years has not been determined. Clinical correlation is essential. Serum or plasma low density lipoprotein (LDL) cholesterol measurement (mass/volume)on 07-27-2022 Cholesterol in LDL [Mass/Vol] 106 mg/dL 0-130 [facility] Work Phone: Serum or plasma urea nitroge n measurement (mass/volume)on 07-27-2022 Urea nitrogen [Mass/Vol] 10 mg/dL 7-18 [facility] Work Phone: Thin prep Papanicolaou smear with manual screeningon 07-27-2022 Thin prep Papanicolaou smear with manual screening 10 5-15 [facility] Work Phone: Culture, urineon 04-22-2022 Bacteria identified Cx Nom (U) Escherichia coli [facility] Work Phone: Basophil percentageon 2021 Basophil percentage 5-10 SEEN /hpf [facility] Work Phone: Chloride [Moles/Vol] 104 mmol/L 98-107 [facility] Work Phone: Cholesterol [Mass/Vol] 194 mg/dL <200 [facility] Work Phone: Comment on above: <200 mg/dL Desirable 200-240 mg/dL Borderline >240 mg/dL High Risk Glucose [Mass/Vol] 105 mg/dL 74-106 [facility] Work Phone: Comment on above: Fasting Glucose resu lt from 100 to 125 mg/dL suggests IMPAIRED HOMEOSTASIS per A.D.A. criteria. Potassium [Moles/Vol] 4.3 mmol/L 3.5-5.1 [facility] Work Phone: Sodium [Moles/Vol] 137 mmol/L 136-145 [facility] Work Phone: Triglyceride [Mass/Vol] 191 mg/dL [facility] Work Phone: Comment on above: The drugs N-Acetylcy steine and Metamizole may falsely depress this assay.Serum Triglycerides Reference Interval Normal <150 mg/dL Borderline high 150 - 199 mg/dL High 200 - 499 mg/dL Very High > or = 500 mg/dL Bilirubin Test strip Ql (U)o n 01-26-2022 Bilirubin Ql (U) Negative Negative [facility] Work Phone: Ketones Test strip Ql (U)on 01-26-2022 Ketones Ql (U) Negative Negative [facility] Work Phone: Laboratory - Chemistry and C hemistry - challengeon 01-26-2022 CO2 [Moles/Vol] 24.0 mmol/L 21.0-32.0 [facility] Work Phone: Free T4 [Mass/Vol] 1.36 ng/dL 0.76-1.46 [facility] Work Phone: Urea nitrogen/Creatinine [Mass ratio] 13.0 mg/mg 10-20 [facility] Work Phone: Mucus LM Ql (Urine sed)on Mucus Ql (Urine sed) 0 SEEN /hpf [facility] Work Phone: Nitrite Test strip Ql (U)on 01-26-2022 Nitrite Ql (U) Negative Negative [facility] Work Phone: No Panel Informationon 01-26 Estimated GFR (MDRD) Amer 59 mL/min >60 [facility] Work Phone: Comment on above: GFR Calc Estimated GFR (MDRD) Non-Af Amer 49 mL/min >60 [facility] Work Phone: Comment on above: Non- GFR Calc Free Triiodothyronine (T3) pg/dL 1.7 pg/mL 2.18-3.98 [facility] Work Phone: Thyroid Stimulating Hormone (TSH) 3.39 uIU/mL 0.358-3.74 [facility] Work Phone: Protein Test strip Ql (U)on 01-26-2022 Protein Ql (U) 30 mg/dl Negative [facility] Work Phone: Serum or plasma calcium sandy urement (mass/volume)on 01-26-2022 Calcium [Mass/Vol] 9.5 mg/dL 8.5-10.1 [facility] Work Phone: Serum or plasma cholesterol in HDL measurement (mass/volume)on 01-26-2022 Cholesterol in HDL [Mass/Vol] 33 mg/dL [facility] Work Phone: Comment on above: The drugs N-Acetylcy steine and Metamizole may falsely depress this assay. Reference Range HDL <40 mg/dL Low HDL Cholesterol HDL >or= 60 mg/dL High HDL Cholesterol Serum or plasma cholesterol in VLDL measurement (mass/volume)on 01-26-2022 Cholesterol in VLDL [Mass/Vol] 38 mg/dL 5-40 [facility] Work Phone: Serum or plasma creatinine m easurement (mass/volume)on 01-26-2022 Creatinine [Mass/Vol] 1.23 mg/dL 0.55-1.02 [facility] Work Phone: Comment on above: The validity of the calculated GFR & GFRAA in patients over 70 years has not been determined. Clinical correlation is essential. Serum or plasma low density lipoprotein (LDL) cholesterol measurement (mass/volume)on 01-26-2022 Cholesterol in LDL [Mass/Vol] 123 mg/dL 0-130 [facility] Work Phone: Serum or plasma urea nitroge n measurement (mass/volume)on 01-26-2022 Urea nitrogen [Mass/Vol] 16 mg/dL 7-18 [facility] Work Phone: Squamous epithelial cells de tection in urine sediment by light microscopyon 01-26-2022 Epithelial cells.squamous LM Ql (Urine sed) 5-10 SEEN /hpf [facility] Work Phone: Thin prep Papanicolaou smear with manual screeningon 01-26-2022 Thin prep Papanicolaou smear with manual screening 9 5-15 [facility] Work Phone: Urine blood detectionon 01-13 RBC Ql (U) Negative Negative [facility] Work Phone: RBC Ql (U) 0 SEEN /hpf [facility] Work Phone: Urine clarityon 01-26-2022 Clarity (U) Clear Clear [facility] Work Phone: Urine color determinationon 01-26-2022 Color (U) Yellow Yellow [facility] Work Phone: Urine glucose detectionon Glucose Ql (U) Normal mg/dl Normal [facility] Work Phone: Urine leukocyte esterase det ection by dipstickon 01-26-2022 Leukocyte esterase Test strip Ql (U) 500 /ul Negative [facility] Work Phone: Urine pHon 01-26-2022 pH (U) 6.0 [pH] [facility] Work Phone: Urine sediment bacteria coun t by microscopy (number/high power field)on 01-26-2022 Bacteria LM.HPF (Urine sed) [#/Area] 0 /[HPF] None Seen [facility] Work Phone: Urine specific gravity measu rementon 01-26-2022 Specific gravity (U) [Rel density] 1.015 [facility] Work Phone: Urobilinogen Auto test strip Ql (U)on 01-26-2022 Urobilinogen Ql (U) Normal mg/dl Normal [facility] Work Phone: Culture, urine Bacteria identified Cx Nom (U) Escherichia coli [facility] Work Phone: Vital Signs Date Time Vital Sign Value Performing Clinician Faci lity 03-29-2025 10:18-0400 Diastolic blood pressure 51 mm[Hg] Dr. Red Sandoval MD Work Phone: [facility] 03-29-2025 10:18-0400 Heart rate 79 /min Dr. Red Sandoval MD Work Phone: [facility] 03-29-2025 10:18-0400 Respiratory rate 16 /min Dr. Red Sandoval MD Work Phone: [facility] 03-29-2025 10:18-0400 SaO2% (BldA) [Mass fraction] 97 % Dr. Red Sandoval MD Work Phone: [facility] 03-29-2025 10:18-0400 Systolic blood pressure 114 mm[Hg] Dr. Red Sandoval MD Work Phone: [facility] 03-29-2025 08:03-0400 Body height 167.[address] Red Sandoval MD Work Phone: [facility] 03-29-2025 08:03-0400 Body mass index (BMI) [Ratio] 43.5 kg/m2 Dr. Red Sandoval MD Work Phone: [facility] 03-29-2025 08:03-0400 Body temperature 96.4 [degF] Dr. Red Sandoval MD Work Phone: [facility] 03-29-2025 08:03-0400 Body weight 122.[address] Red Sandoval MD Work Phone: 7(440)624-295637 [place] [address] 03-08-2025 08:22-0400 Body mass index (BMI) [Ratio] 44.7 kg/m2 Dr. Red Sandoval MD Work Phone: 0(293)327-050114 [place] [address] 03-08-2025 08:22-0400 Body temperature 98.3 [degF] Dr. Red aSndoval MD Work Phone: 9(323)676-962837 [place] [address] 03-08-2025 08:22-0400 Body weight 125.[address] Red Sandoval MD Work Phone: 0(788)173-752137 [place] [address] 03-08-2025 08:22-0400 Diastolic blood pressure 74 mm[Hg] Dr. Red Sandoval MD Work Phone: 7(573)560-746614 [place] [address] 03-08-2025 08:22-0400 Heart rate 78 /min Dr. Red Sandoval MD Work Phone: 6(378)455-984514 [place] [address] 03-08-2025 08:22-0400 Respiratory rate 18 /min Dr. Red Sandoval MD Work Phone: 6(234)531-599537 [place] [address] 03-08-2025 08:22-0400 SaO2% (BldA) [Mass fraction] 97 % Dr. Red Sandoval MD Work Phone: 1(583)541-690237 [place] [address] 03-08-2025 08:22-0400 Systolic blood pressure 113 mm[Hg] Dr. Red Sandoval MD Work Phone: 2(721)504-769237 [place] [address] 12-01-2022 10:40-0500 Body temperature 96.9 [degF] Dr. Red Sandoval Work Phone: 9(688)714-035637 [place] [address] 12-01-2022 10:40-0500 Diastolic blood pressure 64 mm[Hg] Dr. Red Sandoval Work Phone: [facility] 12-01-2022 10:40-0500 Heart rate 62 /min Dr. Red Sandoval Work Phone: [facility] 12-01-2022 10:40-0500 Respiratory rate 16 /min Dr. Red Sandoval Work Phone: [facility] 12-01-2022 10:40-0500 SaO2% (BldA) [Mass fraction] 96 % Dr. Red Sandoval Work Phone: [facility] 12-01-2022 10:40-0500 Systolic blood pressure 106 mm[Hg] Dr. Red Sandoval Work Phone: [facility] 12-01-2022 09:27-0500 Body height 167.[address] eRd Sandoval Work Phone: [facility] 12-01-2022 09:27-0500 Body mass index (BMI) [Ratio] 36.3 kg/m2 Dr. Red Sandoval Work Phone: [facility] 12-01-2022 09:27-0500 Body weight [address] Red Sandoval Work Phone: [facility] 11-10-2022 16:24-0500 Body mass index (BMI) [Ratio] 37.1 kg/m2 Dr. Red Sandoval Work Phone: [facility] 11-10-2022 16:24-0500 Body weight 104.[address] Red Sandoval Work Phone: [facility] Encounters Encounter Date Encounter Type Care Provider Facility Start: 04-17-2025 ambulatory Red Sandoval Facility:[facility] Start: 03-29-2025 End: 03-29-[address] Red Sandoval MD -Laboratory [facility] Start: 03-29-2025 End: 03-29-[address] Red Sandoval MD Work Phone: [facility] Work Phone: Start: 03-29-[address] Glen Chapman MD -[facility] Start: 03-29-2025 End: 03-29-2025 ambulatory Red Sandoval Facility:[facility] Start: 03-08-2025 End: 03-08-[address] Glen Chapman MD -[facility] Work Phone: Start: 03-08-2025 End: 03-08-2025 ambulatory Glen Chapman Facility:[facility] Start: 03-05-2025 Non-patient / Non-visit Yamila Cohen si [employer] -[facility] Work Phone: Start: 03-05-2025 ambulatory Red Sandoval Facility:[facility] Start: 03-05-2025 End: 03-05-[address] Red Sandoval MD -Laboratory, [facility] Start: 03-05-2025 End: 03-05-2025 ambulatory Red Sandoval Facility:[facility] Start: 03-01-2025 End: 03-01-[address] Red Sandoval MD Work Phone: [facility] Work Phone: Start: 03-01-2025 End: 03-01-[address] Red Sandoval MD -Laboratory, [place] Work Phone: Start: 03-01-2025 End: 03-01-2025 ambulatory LIU FRANCIS Facility:[facility] Start: 10-08-2024 End: 10-08-2024 ambulatory Red Sandoval Facility:[facility] Start: 07-27-2024 End: 07-27-2024 ambulatory Red Sandoval Facility:[facility] Start: 02-07-2024 End: 02-07-2024 ambulatory [facility] Work Phone: Start: 02-07-2024 End: 02-07-2024 Patient encounter procedure [facility] Work Phone: Start: 01-19-2024 End: 01-19-2024 ambulatory [facility] Work Phone: Start: 01-19-2024 End: 01-19-2024 Patient encounter procedure [facility] Start: 07-26-2023 End: 07-26-2023 ambulatory [facility] Work Phone: Start: 07-26-2023 End: 07-26-2023 Patient encounter procedure [facility] Start: 01-25-2023 End: 01-25-[address] Red Sandoval Work Phone: [facility] Work Phone: Start: 01-25-2023 End: 01-25-[address] Red Sandoval Work Phone: [facility] Start: 12-01-2022 Non-patient / Non-visit Dr. Yousuf Sandoval Work Phone: [facility] Start: 12-01-2022 End: 12-01-2022 Admission to same day surgery center Dr. Red Sandoval Work Phone: [facility] Start: 12-01-2022 End: 12-01-[address] Red Sandoval Work Phone: [facility] Work Phone: Start: 11-10-2022 Non-patient / Non-visit Dr. Yousuf Sandoval Work Phone: [facility] Start: 07-27-2022 End: 07-27-2022 ambulatory [facility] Work Phone: Start: 07-27-2022 End: 07-27-2022 Patient encounter procedure [facility] Start: 06-26-2022 End: 06-26-2022 [facility] Start: 04-22-2022 End: 04-22-2022 [facility] Start: 01-26-2022 End: 01-26-2022 Patient encounter procedure [facility] Procedures Date Procedure Procedure Detail Performing Clinician Start: 03-08-[address] antibody IgA level Dr. Red Sandoval MD Work Phone: Start: 03-08-[address] Red Sandoval MD Work Phone: Start: 03-08-2025 Gliadin antibody, Ig A measurement Dr. Red Sandoval MD Work Phone: Comment on above: Negative 0 - 19 Weak Positive 20 - 30 Moderate to Strong Positive >30 Start: 03-08-2025 Gliadin antibody, Ig G measurement Dr. Red Sandoval MD Work Phone: Comment on above: Negative 0 - 19 Weak Positive 20 - 30 Moderate to Strong Positive >30 Start: 03-08-2025 Measurement of immunoglobulin A in serum specimen Dr. Red Sandoval MD Work Phone: Comment on above: Performed at: [address] Director: Preston Ashley PhD, Phone: [phone] Start: 12-01-[address] Red cool Work Phone: Start: 04-22-2022 Urine culture Urine culture Plan of Treatment Date Care Activity Detail Author Start: 03-08-2025 Patient referral [facility] Work Phone: Start: 12-01-2022 Colonoscopy flx dx w/collj spec when pfrmd DIAGNOSTIC COLONOSCOPY [facility] Start: 12-01-2022 Patient discharge [facility] CBC W Auto Different ial panel - Blood [facility] Cobalamin (Vitamin B 12) [Mass/volume] in Serum or Plasma [facility] Colonoscopy [facility] Ferritin [Mass/volum e] in Serum or Plasma [facility] Folate [Moles/volume ] in Serum or Plasma [facility] Iron and Iron bindin g capacity panel - Serum or Plasma [facility] Lactate dehydrogenas e measurement [facility] Magnesium measurement [facility] Patient referral [facility] Work Phone: Serum inorganic phos phate measurement [facility] Payers Date Payer Category Payer Private Health Insurance [id number] [id number] Self-pay [id number] Unknown [id number] Unknown [id number] 2.16.8 [id number] Unknown [id number] 2.16.8 [id number] Unknown [id number] 2.16.8 [id number] Unknown [id number] 2.16.8 [id number] Unknown [id number] 2.16.8 [id number] Unknown [id number] 2.16.8 [id number] Unknown [id number] 2.16.8 [id number] Unknown [id number] 2.16.8 [id number] Unknown [id number] 2.16.8 [id number] Social History Date Type Detail Facility Tobacco smoking status NHIS Unknown if ever smoked [facility] Work Phone: Start: 1970 Sex Assigned At Female [facility] Start: 12-01-2022 End: 12-01-2022 Tobacco smoking status NHIS Unknown if ever smoked [facility] Start: 03-05-2025 End: 03-08-2025 Tobacco smoking status NHIS Ex-smoker (finding) [facility] Start: 03-06-2025 Sex Female (finding) [facility] NEGATED: Highlighted row [facility] Goals Date Patient Goal Desired Activity /State Mental Status Date Assessment Result Facility 03-29-2025 Cognitive function Awake;Alert;A ppropriate;Foll ows Commands [facility] Work Phone: 03-15-2025 Cognitive function Arousable To Voice/Nam e [facility] Work Phone: 12-01-2022 Cognitive function Voice/Name [facility] Work Phone: Evaluation note 03-08-2025 Note Date & Type Note Facility 03-08-2025 Evaluation note Diagnosis Onset Date Resolution Iron deficiency anemia acute Ap 2024 8:14am Anemia noneactive March 08 8:14am [facility] Work Phone: Clinical Note 02-07-2024 Note Date & Type Note Facility 02-07-2024 Note [facility] Pap Smear Specimen Adequacy February 07, 2024 9:00am Comment . Satisfactory for evaluation. Endocervical and/or squamous metaplasticcells (endocervical component) are present. Comment on above: Satisfactory for jade luation. Endocervical and/or squamous metaplasticcells (endocervical component) are present. Procedure note 12-01-2022 Note Date & Type Note Facility 12-01-2022 Procedure note [facility] Procedure note 12-01-2022 Note Date & Type Note Facility 12-01-2022 Procedure note [facility] Evaluation note Note Date & Type Note Facility Evaluation note No assessment information availa ble [facility] Work Phone: Evaluation note Note Date & Type Note Facility Evaluation note Diagnosis Onset Date Encounter for screening for malignant neoplasm of colon acute [facility] Work Phone: History and physical note Note Date & Type Note Facility History and physical note Note Date/Time December 01, 2022 10:07am [facility] Medical Records Department [address] [place] [address] History & Physical Exam 12/01/22 1005 MR#: [id number] Acct: [id number] Name: HEIDI ANDREWS Rep #:[id number] : 1970 52 From: Lamine gracia MD PCP: Dr. Red Sandoval MD Status:REG S DC Location: [place] [address] HPI - General HPI Narrative HEIDI ANDREWS, is a 52 F who presents for screening colonoscopy. Patient reports no blood in the stool or abdominal pain. She has never had a colonoscopy in the past. No family history of colon cancer. [facility] Medical History Anemia Anxiety Bipolar disorder, unspecified Diabetes Diabetes Former smoker HTN (hypertension) Hypertriglyceridemia Hypothyroid Psoriasis Thyroid disease Vitamin D deficiency Wears glasses Home Medications clonidine HCl 0.1 mg tablet 0.1 mg PO BID 11/10/22 [History Last Taken Unknown] fluoxetine 20 mg capsule (Prozac) 20 mg PO DAILY 11/10/22 [History Last Taken Unknown] gemfibrozil 600 mg tablet 600 mg PO BID 11/10/22 [History Last Taken Unknown] lamotrigine 150 mg tablet 150 mg PO BID 11/10/22 [History Last Taken Unknown] levothyroxine 88 mcg tablet (Levoxyl) 88 mcg PO DAILY 11/10/22 [History Last Taken Unknown] metformin 1,000 mg tablet 1,000 mg PO BID 11/10/22 [History Last Taken Unknown] metoprolol succinate 200 mg tablet,extended release 24 hr (Toprol XL) 200 mg PO DAILY 11/10/22 [History Last Taken Unknown] risperidone 2 mg tablet (Risperdal) 2 mg PO QHS 11/10/22 [History Last Taken Unknown] valsartan 320 mg-hydrochlorothiazide 12.5 mg tablet (Diovan HCT) 1 tab PO DAILY 11/10/22 [History Last Taken Unknown] Allergy/AdvReac Type Severity Reaction Status Date / Time No Known Allergies Allergy Verified 12/01/22 09:05 Family History (Updated 11/10/22 @ 16:17 by Cristy Hernandez) Father Hypertension Diabetes Sister Anxiety Surgical History Hx of bilateral breast reduction surgery Hx of section Social History (Updated 11/10/22 @ 16:16 by Cristy Hernandez) household members: spouse Smoking Status: Former smoker Past Medical/Surgical History Planned Operation Planned Operative Procedure/s: colonoscopy Previous Hospitalizations/Surgeries HX Hospitalizations: No Any Problems With Anesthesia: No You/Your Family Experience Fever (Hyperthermia) With Anes: No Cholinesterase deficiency: No Cardiovascular Hx Heart Attack: No Hx Hypertension: Yes Respiratory Hx Chronic Obstructive Pulmonary Disease (COPD): No Hx Asthma: No Hx Emphysema: No Hx Sleep Apnea: No Hx Respiratory Tract Infection/Cold (presently): No Do You Snore Loudly (louder than talking or can be heard): No Do You Often Feel Tired/ Fatigued/ Sleepy Dring Daytime?: No Has Anyone Observed You Stop Breathing During Sleep?: No Result (for STOP score): Negative Smoking Status: Former smoker Neurological Hx Seizures: No Does patient have nerve stimulator: No Reproduction : No Miscellaneous Recent Exposure to Contagious Disease: No Allergies No Known Allergies Allergy (Verified 12/01/22 09:05) Discharge Is Pt Admitted From a Jail, or a Fdc: No Who Could Help: After D/C, Where Do you Plan to Go: Return Home Vital Signs Vital Signs Vital Signs: 12/01/22 09:27 12/01/22 09:27 Temperature 97 F L Temperature Source Temporal Pulse Rate 67 Respiratory Rate 17 Respiratory Pattern Normal Blood Pressure 119/74 Blood Pressure Mean 89 Blood Pressure Source Monitor Blood Pressure Position Semi-Fowlers Blood Pressure Location Right Arm Pulse Ox 95 Oxygen Delivery Method Room Air Weight Weight: 224 lb 13.944 oz Body Mass Index (BMI) 36.3 Physical Exam Const alert and oriented x3 HEENT normocephalic Eyes PERRL Resp normal respiratory effort and normal air movement Cardio regular rate and regular rhythm GI soft to palpation, non-tender and non-distended Extremity normal to inspection Assessment & Plan Assessment/Plan (1) Encounter for screening for malignant neoplasm of colon: PLAN: I explained endoscopy in detail to the patient. I explained the risks including but not limited to stroke or heart attack with anesthesia, perforationof the GI tract, bleeding, infection. I explained that any of these could necessitate further emergency surgery. The patient understands and all questions were answered sufficiently. The patient wishes to proceed with procedure. Lamine Marie MD Pager: [facility] [address] [place] [address], [address] [place] [address] Office: Surgery Risks - Colonoscopy Risks Include but are not Limited To: Risks include but are not limited to: Bleeding, perforation requiring further surgery, inability to complete colonoscopy requiring barium enema. 12/01/22 1007 <Electronically signed by Lamine Marie MD> Cosigner Signature (if applicable): CC: Dr. Lamine Marie MD; Dr. Rde Sandoval MD~ Signed [facility] Work Phone: Reason for referral (narrative) Note Date & Type Note Facility Reason for referral (narrative) No reason for referral information available [facility] Work Phone: Chief Complaint and Reason for Visit Chief Complaint Amb Documentation Reason for Visit Encounter for screen ing for malignant neoplasm of colon Chief Complaint PAP Chief Complaint Admit Date Amb Documentation March 05, 2025 4:3 7pm Chief Complaint Admit Date Amb Documentation March 05, 2025 4:3 7pm Anemia March 08, 2025 8:1 4am MED ONC March 29, 2025 8:00a m Reason for Visit Admit Date Iron deficiency anemia March 08, 2025 8:14am Anemia March 08, 2025 8:1 4am Family History No Family History Records Found Relationship Condition Age at Onset Recorded Date/T shanae father Hypertension Unknown Diabetes mellitus Unknown sister Anxiety Unknown Relationship Condition Age at Onset Recorded Date/T shanae father Hypertension Unknown Diabetes mellitus Unknown sister Anxiety Unknown Mixed connective tissue disease Unknown mother Psoriatic arthritis Unknown Advance Directives No Advanced Directives Records Found Advance Directive Response Recorded Date/ Time Living Will No November 25 8:38am Power of Manager Title No November 25, 2022 8:38am Advance Directive Response Recorded Date/ Time Living Will No November 25 9:38am Power of Manager Title No November 25, 2022 9:38am Summary Purpose Additional Source Comments Goals (unrecognized section and content) Goals may be documented in a n alternate sectionGoals may be documented in an alternate sectionGoals may be documented in an alternate sectionGoals may be documented in an alternate sectionGoals may be documented in an alternate sectionGoals may be documented in an alternate sectionGoals may be documented in an alternate sectionGoals may be documented in an alternate section Care Teams (unrecognized sec tion and content) Team Status: Active Member Role Status Dates Dr. Red Sandoval MD Family Provider Active Dr. Red Sandoval MD Primary Care Provider Active Team Status: Active Member Role Status Dates Dr. Red Sandoval MD Primary Care Provider Active Cristy Hernandez Attending Provider Active Team Status: Active Member Role Status Dates Dr. Red Sandoval MD Primary Care Provider, Referring Provider Active Dr. Lamine Marie MD Attending Provider, Other Provider Active Team Status: Inactive Member Role Status Dates Dr. Red Sandoval MD Primary Care Provider, Referring Provider Active Dr. Lamine Marie MD Attending Provider Active Team Status: Inactive Member Role Status Dates Dr. Red Sandoval MD Primary Care Provider, Attending Provider Active Team Status: Inactive Member Role Status Dates Dr. Red Sandoval MD Primary Care Provider Active DELILAH Celestin Attending Provider, Referr ing Provider Active Team Status: Inactive Member Role Status Dates Dr. Red Sandoval MD Primary Care Provider Active Start: March 01, 2025 End: March 01, 2025 Dr. Red Sandoval MD Attending Provider Active Start: March 01, 2025 End: March 01, 2025 Dr. Red Sandoval MD Referring Provider Active Start: March 01, 2025 End: March 01, 2025 JHONNY SARGENT Other Provider Active Start: March 01, 2025 End: March 01, 2025 Team Status: Active Member Role Status Dates Dr. Red Sandoval MD Primary Care Provider Active Start: March 05, 2025 Dr. Red Sandoval MD Attending Provider Active Start: March 05, 2025 Dr. Red Sandoval MD Referring Provider Active Start: March 05, 2025 Team Status: Active Member Role Status Dates Dr. Red Sandoval MD Primary Care Provider Active Start: March 05, 2025 Yamila Stein LPN Attending Provider Active S tart: March 05, 2025 Team Status: Active Member Role Status Dates Dr. Red Sandoval MD Primary Care Provider Active Team Status: Inactive Member Role Status Dates Dr. Red Sandoval MD Primary Care Provider Active Start: March 05, 2025 End: March 05, 2025 Dr. Red Sandoval MD Attending Provider Active Start: March 05, 2025 End: March 05, 2025 Dr. Red Sandoval MD Referring Provider Active Start: March 05, 2025 End: March 05, 2025 Team Status: Inactive Member Role Status Dates Dr. Red Sandoval MD Primary Care Provider Active Start: March 08, 2025 End: March 08, 2025 Dr. Red Sandoval MD Referring Provider Active Start: March 08, 2025 End: March 08, 2025 Dr. Glen Chapman MD Attending Provider Active S tart: March 08, 2025 End: March 08, 2025 Team Status: Active Member Role Status Dates Dr. Red Sandoval MD Primary Care Provider Active Start: March 29, 2025 Dr. Glen Chapman MD Attending Provider Active S tart: March 29, 2025 Dr. Glen Chapman MD Referring Provider Active S tart: March 29, 2025 Team Status: Inactive Member Role Status Dates Dr. Red Sandoval MD Primary Care Provider Active Start: March 29, 2025 End: March 29, 2025 Dr. Red Sandoval MD Attending Provider Active Start: March 29, 2025 End: March 29, 2025 Dr. Red Sandoval MD Referring Provider Active Start: March 29, 2025 End: March 29, 2025 INFORMATION SOURCE (unrecogn ized section and content) DATE CREATED AUTHOR 04/14/2025 [facility] FOR RECORDS PERTAINING TO PATIENTS WHO ARE OR HAVE BEEN ENROLLED IN A CHEMICAL DEPENDENCY/SUBSTANCEABUSE PROGRAM, SOME INFORMATION MAY BE OMITTED. This clinical summary was aggregated from multiple sources. Caution should be exercised in using it in the provision of clinical care. This summary normalizes information from multiple sources, and as a consequence, information in this document may materially change the coding, format and clinical context of patient data. In addition, data may be omitted in some cases. CLINICAL DECISIONS SHOULD BE BASED ON THE PRIMARY CLINICAL RECORDS. [employer] provides no warranty or guarantee of the accuracy or completeness of information in this document.
--- NOTE | 2025-04-17 09:26 | STRESSREP_ITS ---
Stress Test Report Date: 04/17/2025 Procedure: Pharmacologic stress nuclear imaging study Indications: Chest pain Consent: Per the patient Procedure: The patient was scheduled for exercise stress Myoview however she found herself unable to walk on treadmill. Subsequently the test was changed to pharmacological stress nuclear. The patient underwent pharmacologic (Regadenoson 0.4mg ) evaluation with a peak heart rate of 89 beats per minute (53%predicted maximal heart rate) and a peak blood pressure of 128/72 mmHg. The baseline ECG demonstrated sinus rhythm. The peak pharmacologic ECG failed to show any ischemic changes. There were no cardiac dysrhythmias pretest, during pharmacologic infusion, or recovery. There was no complaint of chest discomfort during pharmacologic infusion or recovery. The patient was injected with 14.6 millicuries of technetium 99m Cardiolite and subsequently rest SPECT Cardiolite nuclear imaging was obtained in the horizontal long, vertical long, and short axis views. The patient underwent pharmacologic (Regadenoson) evaluation. The patient was injected with 44.5 millicuries of technetium 99m Cardiolite and subsequently stress SPECT Cardiolite nuclear imaging was obtained in the horizontal long, vertical long, and short axis views. A gated Cardiolite study at peak stress was obtained. The examination was stopped secondary to completion of protocol. Rest and stress SPECT Cardiolite nuclear imaging status post realignment, normalization, and attenuation correction demonstrate small reversible apical perfusion defect suggestive of apical ischemia. There is end systolic thickening and brightening. The gated Cardiolite study demonstrates myocardial thickening and inward wall motion. The reported LVEF is 66%. Impression: 1. Pharmacologic (Regadenoson) evaluation 2. Peak pharmacologic ECG with no diagnostic ischemic changes. 3. There were no cardiac dysrhythmias pretest, during pharmacologic infusion, or recovery. 5. Small reversible perfusion defect of the apex suggestive of mild ischemia. 6. The gated Cardiolite study reports an LVEF of 66%. This note was generated with mechatronic systemtechnikation software. It may contain incorrect words, spelling, and punctuation that were not noted in checking the note before signing.
== END | disposition home or self-care (01) ==
LOC: CVS 06:17
PROVIDERS: PCP Family Medicine; Referring Provider Family Medicine; Visit Provider Family Medicine
DX: R07.9 Chest pain, unspecified (principal)
CPT/HCPCS: 78452; 93017; A9500; A4216; J2785

== ENCOUNTER → 2025-06-15 | Outpatient (CLI) | payer OTHER, SELFPAY ==
--- NOTE | 2025-06-15 10:05 | RAD_ITS ---
PROCEDURE: CHEST PA AND LATERAL 06/15/2025 REASON FOR EXAM: SOB TECHNIQUE: CHEST PA AND LATERAL COMPARISON: None. RAD/Chest PA and Lateral IMPRESSION: Mild right hemidiaphragm elevation/eventration is seen. Lungs appear clear of acute disease. No pleural effusion or pneumothorax is noted. The cardiomediastinal silhouette is within the normal range. Mild thoracic spine degenerative changes are also seen. No evidence of acute cardiopulmonary disease. Reading Location: [place] [id number]
== END | disposition home or self-care (01) ==
PROVIDERS: PCP Family Medicine; Referring Provider Internal Medicine Pulmonary Disease; Visit Provider Internal Medicine Pulmonary Disease
DX: R06.02 Shortness of breath (principal)
CPT/HCPCS: 71046

== ENCOUNTER → 2025-06-27 | Outpatient (CLI) | payer OTHER, SELFPAY ==
[2025-06-27 10:39] LABS: Hematocrit 33.6 % (37-47); Hemoglobin 10.7 g/dL (12.0-15.0); Immature Granulocytes Count 0.060 X10^3/uL (0.0-0.0); Mean Corp Hgb Conc 31.8 g/dL (32-36); Mean Corpuscular Volume 87.5 fL (81-99); Mean Platelet Vol. 9.9 fl (6.2-12.0); NRBC Flagged by Analyzer 0 % (0-5); Platelet Count 244 K/mm3 (150-450); RBC Distribution Width CV 13.9 % (11.6-14.6); RBC Distribution Width SD 43.7 fl (35.1-43.9); Red Blood Count 3.84 M/mm3 (4.2-5.4); White Blood Count 5.7 K/mm3 (4.4-11.0)
[2025-06-27 11:03] LABS: Creatinine, Urine (random) 91.20 mg/dL (28.00-217.00); Microalbumin,Random Urine < 12.0 mg/L (<20 mg/L)
[2025-06-27 11:32] LABS: Anion Gap 17 (5-15); BUN 10 mg/dL (4-19); BUN/Creat Ratio 10.8 RATIO (10-20); Calcium,Total 8.7 mg/dL (7.6-11.0); Carbon Dioxide 24.2 mmol/L (21.0-32.0); Chloride 98 mmol/L (98-108); Ferritin 108 ng/mL (22-378); Glucose 198 mg/dL (70-99); Iron 53 ug/dL (50-170); Iron Binding Capacity,Total 377 ug/dL (250-450); Iron Binding Capacity,Unsat 324 ug/dL (228-428); Potassium 3.7 mmol/L (3.3-5.1)
[2025-06-27 12:08] LABS: Cholesterol 181 mg/dL (<=200); Low Density Lipoprotein Calc. 102 mg/dL; Triglycerides 224 mg/dL; Very Low Density Lipoprotein 45 mg/dL (5-40); cholesterol:hdl ratio screen 5.31
== END | disposition home or self-care (01) ==
LOC: MFPLAB 09:32
PROVIDERS: PCP Family Medicine; Visit Provider Family Medicine
DX: E11.9 Type 2 diabetes mellitus without complications (principal); D64.9 Anemia, unspecified
CPT/HCPCS: 36415; 80048; 80061; 82043; 82570; 82728; 83540; 83550; 85025

== ENCOUNTER → 2025-08-13 | Outpatient (CLI) | payer OTHER, SELFPAY ==
--- NOTE | 2025-08-13 07:52 | RAD_ITS ---
PROCEDURE: FLUOROSCOPY 1 HR OR LESS 08/13/2025 REASON FOR EXAM: Short of breath TECHNIQUE: Procedure Code: RADFL Modality: DX Procedure: FLUOROSCOPY 1 HR OR LESS COMPARISON: Chest x-ray dated 06/15/2025 FINDINGS: A sniff test was performed with demonstration of chronic elevation of the right hemidiaphragm. The diaphragmatic excursion is symmetric however slightly limited on the right. RAD/Fluoroscopy 1 Hr or Less IMPRESSION: Mild decrease in the right diaphragmatic excursion suggestive of mild paralysis . Reading Location: [place] [id number]
== END | disposition home or self-care (01) ==
LOC: RAD 07:50
PROVIDERS: PCP Family Medicine; Referring Provider Internal Medicine Pulmonary Disease; Visit Provider Internal Medicine Pulmonary Disease
DX: J45.40 Moderate persistent asthma, uncomplicated (principal)
CPT/HCPCS: 76000

== ENCOUNTER → 2025-08-17 | Outpatient (CLI) | payer OTHER, SELFPAY ==
--- OUTSIDE RECORDS SUMMARY | 2025-08-17 17:20 | XMS RPT_ITS | CCD ---
Author Organization [facility] Care Team Providers Care Tabulating Supervisor Name Role Phone Dr. Red Sandoval Primary Care Provider Cristy Hernandez Attending Provider Unavailable Dr. Red Sandoval Referring Provider Dr. Lamine Marie Attending Provider Dr. Lamine Marie Other Provider Ana JARAMILLO, Dr. Moon Primary Care Provider [phone] Ana JARAMILLO, Dr. Moon Attending Provider Ana JARAMILLO, Dr. Moon Referring Provider ROSETTA BARRY Other Provider Yamila Stein LPN Attending Provider Unavailab de Chapman MD, Dr. Carroll Attending Provider Ari JARAMILLO, Dr. Carroll Referring Provider Ana JARAMILLO, Dr. Moon Other Provider Rickie JARAMILLO, Dr. Lopez Attending Provider Dr. Glen Chapman MD Referring Provider Ari JARAMILLO, Dr. Carroll Referring Provider Ana JARAMILLO, Dr. Moon Primary Care Provider Dr. Red Sandoval MD Attending Provider Ana JARAMILLO, Dr. Moon Referring Provider Julio JARAMILLO, Dr. Nikolai Mon Attending Provider Julio JARAMILLO, Dr. Nikolai Mon Referring Provider Dr. Red Sandoval MD Primary Care Provider Dr. Red Sandoval MD Referring Provider Dr. Red Sandoval MD Attending Provider Red Sandoval Attending Unavailable Sandoval, Red Referring Unavailable Sandoval, Red Primary Care Unavailable Sandoval, Red Primary Care Unavailable Sibilia, Nikolai Mon Attending Unavailable Sibilia, Nikolai Mon Referring Unavailable Prah, Glen Attending Unavailable Prah, Glen Referring Unavailable Sandoval, Red Primary Care Unavailable Sandoval, Red Primary Care Unavailable Sandoval, Red Attending Unavailable Sandoval, Red Referring Unavailable Prah, Glen Attending Unavailable Sandoval, Red Referring Unavailable Sandoval, Red Primary Care Unavailable Prah, Glen Attending Unavailable Sandoval, Red Referring Unavailable Sandoval, Red Primary Care Unavailable Sandoval, Red Primary Care Unavailable Yamila Stein Attending Unavailable Sandoval, Red Consulting Unavailable John Damian Attending Unavailable Sandoval, Red Referring Unavailable Sandoval, Red Primary Care Unavailable Prah, Glen Attending Unavailable Sandoval, Red Referring Unavailable Sandoval, Red Primary Care Unavailable Sandoval, Red Primary Care Unavailable Jaiden OSCAR, Enrique Pino Attending Unavailable Sandoval, Red Referring Unavailable Sandoval, Red Primary Care Unavailable Sandoval, Red Attending Unavailable JARED ODELL Consulting Unavailab le Sandoval, Red Referring Unavailable Sandoval, Red Attending Unavailable Sandoval, Red Primary Care Unavailable Sandoval, Red Primary Care Unavailable Sibilia, Nikolai Mon Attending Unavailable Sibilia, Nikolai Mon Referring Unavailable Sandoval, Red Attending Unavailable Sandoval, Red Referring Unavailable Sandoval, Red Primary Care Unavailable Medications Current Medications Medication Drug Class(es) Dates Sig (Normalized) Sig (Original) cloNIDine hydrochloride 0.1 mg oral tablet (18 sources) Central alpha-2 Adrenergic Agonist Start: 03-08-2025 [...] 2025 8:30am FLUoxetine 20 mg oral capsule (20 sources) Serotonin Reuptake Inhibitor Start: 03-08-2025 take [...] 10, 2022 1:00am March 05, 2025 4:41pm folic acid 1 mg oral tablet (4 sources) Start: 05-07-2025 take 1 tablet by mouth once daily Folic Acid 1 mg tablet Active 1 mg PO daily 90 0 May 07, 2025 12:00am gemfibrozil 600 mg oral tablet (12 sources) Peroxisome Proliferator Receptor alpha Agonist Start: 11-10-2022 take 1 tablet by mouth twice daily Gemfibrozil 600 mg tablet Active 600 mg PO TWICE A DAY November 10, 2022 1:00am hydroCHLOROthiazide 12.5 mg / valsartan 320 mg oral tablet (12 sources) Thiazide Diuretic, Angiotensin 2 Receptor David Start: 11-10-2022 Valsartan-Hydroch lorothiazide (Diovan Hct) 320-12.5 mg tablet Active 1 {tbl} PO DAILY November 10, 2022 1:00am lamoTRIgine 150 mg oral tablet (12 sources) Mood Stabilizer, Anti-epileptic Agent Start: 11-10-2022 take 1 tablet by mouth twice daily Lamotrigine 150 mg tablet Active 150 mg PO TWICE A DAY November 10, 2022 1:00am levothyroxine sodium 0.088 mg oral tablet (12 sources) l-Thyroxine Start: 11-10-2022 take 1 tablet by mouth once daily Levothyroxine (Levoxyl) 88 mcg tablet Active 88 ug PO DAILY November 10, 2022 1:00am magnesium oxide 400 mg oral capsule (7 sources) Start: 05-07-2025 End: 06-01-2025 take 1 capsule by mouth once daily Magnesium Oxide 400 mg magnesium capsule Active 400 mg PO daily 30 2 June 01, 2025 5:13pm mecobalamin 1 mg chewable tablet (4 sources) Start: 05-07-2025 take 1 tablet by mouth once daily Mecobalamin (Vitamin B12) 1,000 mcg tablet,chewable Active 1000 ug PO daily 90 0 May 07, 2025 12:00am metFORMIN hydrochloride 1000 mg oral tablet (12 sources) Biguanide Start: 11-10-2022 take 1 tablet by mouth twice daily Metformin 1,000 mg tablet Active 1000 mg PO TWICE A DAY November 10, 2022 1:00am 24 hr metoprolol succinate 200 mg extended release oral tablet (12 sources) beta-Adrenergic David Start: 11-10-2022 take 1 tablet by mouth once daily Metoprolol Succinate (Toprol Xl) 200 mg tablet extended release 24 hr Active 200 mg PO DAILY November 10, 2022 1:00am oxybutynin chloride 5 mg oral tablet (7 sources) Cholinergic Muscarinic Antagonist Start: 03-05-2025 take 1 tablet by mouth twice daily Oxybutynin Chloride 5 mg tablet Active 5 mg PO TWICE A DAY March 05, 2025 12:00am risperiDONE 1 mg oral tablet (15 sources) Atypical Antipsychotic Start: 06-04-2025 take 1.5 mg by mouth at bedtime Risperidone 1 mg tablet Active 1.5 mg PO AT BEDTIME June 04, 2025 12:00am Start: 11-10-2022 End: 06-04-2025 take 1 tablet by mouth at bedtime Risperidone (Risperdal) 2 mg tablet Discontinued 2 mg PO AT BEDTIME November 10, 2022 1:00am June 04, 2025 11:17am Completed/Discontinued Medications Medication Drug Class(es) Dates Sig (Normalized) Sig (Original) azithromycin 250 mg oral tablet (7 sources) Macrolide Antimicrobial Start: 4 End: 5 Azithromycin (Zithromax Z-Navneet) 250 mg tablet Discontinued 0 PO .COMPLEX 6 October 08, 2024 1:00am March 05, 2025 4:41pm For 250 mg dose pack: take 500 mg today (day 1), then 250 mg for 4 days (days 2-5) PO methylPREDNISolone 4 mg oral tablet (7 sources) Corticosteroid Start: 4 End: 5 take 1 tablet by mouth once Methylprednisolone (Medrol (Navneet)) 4 mg tablets,dose pack Discontinued 0 PO per package directions 21 October 08, 2024 1:00am March 05, 2025 4:41pm PO PER PKG DIR Problems Active Problems Problem Classification Problem Date Documented Da te Episodic/Chronic Asthma (1 source) Moderate persistent asthma, uncomplicated; Translations: [Moderate persistent asthma, uncomplicated] Onset: 08-07-2025 Chronic Deficiency and other anemia (20 sources) Iron deficiency anemia; Translations: [Iron deficiency anemia, unspecified] Episodic Comment on above: Hgb 7.2, Iron 33, Fe rritin 13, MCV 75 on 03/05/2025. Stool for occult blood was negative.Discussed evaluation and treatment of Iron deficiency Anemia, IV iron replacement since she recently had Chest pain and SOB. Got IV Iron replacem ent.Iron profile is normal today. Got IV Iron replacem ent.Iron profile is normal today. Hgb is 11.3 today. Deficiency and other anemia (6 sources) Anemia; Translations: [Anemia, unspecified] 03-08-2025 Episodic Deficiency and other anemia (2 sources) Iron deficiency anemia, unspecified; Translations: [Iron deficiency anemia, unspecified] Onset: 06-04-2025 Episodic Deficiency and other anemia (9 sources) Deficiency and other anemia Diabetes mellitus without complication (13 sources) Diabetes mellitus; Translations: [Type 2 diabetes mellitus without complications] Onset: 07-02-2025 11-10-2022 Chronic Nutritional deficiencies (14 sources) Cobalamin deficiency; Translations: [Deficiency of other specified B group vitamins] Onset: 03-09-2025 05-07-2025 Episodic Comment on above: B12 level is normal today. Other lower respiratory disease (1 source) Shortness of breath; Translations: [Shortness of breath] Onset: 07-06-2025 Episodic Other nutritional; endocrine; and metabolic disorders (11 sources) Hypomagnesemia; Translations: [Hypomagnesemia] 05-07-2025 Chronic Other nutritional; endocrine; and metabolic disorders (1 source) Hypomagnesemia; Translations: [Hypomagnesemia] Onset: 06-04-2025 Chronic Other screening for suspected conditions (not mental disorders or infectious disease) (14 sources) Patient encounter status; Translations: [Encounter for screening for malignant neoplasm of colon] 11-10-2022 Episodic Past or Other Problems Problem Classification Problem Date Documented Da te Episodic/Chronic Deficiency and other anemia (1 source) Anemia, unspecified; Translations: [Anemia, unspecified] Onset: 04-03-2025 Episodic Malaise and fatigue (1 source) Other fatigue; Translations: [Other fatigue] Onset: 03-06-2025 Episodic Nonspecific chest pain (2 sources) Chest pain, unspecified; Translations: [Chest pain, unspecified] Onset: 04-30-2025 Episodic Other upper respiratory infections (8 sources) Upper respiratory infection; Translations: [Acute upper respiratory infection, unspecified] Onset: 10-08-2024 10-08-2024 Episodic Results Test Name Value Interpretation Reference Range Facility Absolute lymphocyte countOrd ered By: Red Sandoval on 06-27-2025 Lymphocytes Auto (Unsp spec) [#/Vol] 1.04 10*3/uL 0.83-4.51 [facility] Absolute neutrophil countOrd ered By: Red Sandoval on 06-27-2025 Neutrophils (Bld) [#/Vol] 4.1 10*3/uL 2.0-7.7 [facility] Anion gap in Serum or Plasma Ordered By: Red Sandoval on 06-27-2025 Anion gap [Moles/Vol] 17 mmol/L High 5-15 [facility] Automated lymphocyte count a s percentage of total leukocytesOrdered By: Red Sandoval on 06-27-2025 Lymphocytes/100 WBC Auto (Unsp spec) 18.2 % Low 19-41 [facility] BUN/creatinine ratioOrdered By: Red Sandoval on 06-27-2025 Urea nitrogen/Creatinine [Mass ratio] 10.8 mg/mg 09-03 [facility] Basic Metabolic Profile (BMP )on 06-27-2025 BUN/CRE 10.8 RATIO Normal 09-03 [facility] Comment on above: Performed By: #### L 503.6030, L100.0100, L500.2500, L500.4100, L502.0250, L503.6550 #### [facility] [place], [address] Calcium [Mass/Vol] 8.7 mg/dL Normal 7.6-11.0 [facility] Comment on above: Performed By: #### L 503.6030, L100.0100, L500.2500, L500.4100, L502.0250, L503.6550 #### [facility] [address] [place], [address] Chloride [Moles/Vol] 98 mmol/L Normal 98-108 [facility] Comment on above: Performed By: #### L 503.6030, L100.0100, L500.2500, L500.4100, L502.0250, L503.6550 #### [facility] [address] [place], [address] CO2 [Moles/Vol] 24.2 mmol/L Normal 21.0-32.0 [facility] Comment on above: Performed By: #### L 503.6030, L100.0100, L500.2500, L500.4100, L502.0250, L503.6550 #### [facility] [address] [place], [address] Creatinine [Mass/Vol] 0.93 mg/dL Normal 0.70-1.20 [facility] Comment on above: Performed By: #### L 503.6030, L100.0100, L500.2500, L500.4100, L502.0250, L503.6550 #### [facility] [address] [place], [address] GAP 17 High 5-15 [facility] Comment on above: Performed By: #### L 503.6030, L100.0100, L500.2500, L500.4100, L502.0250, L503.6550 #### [facility] [address] [place], [address] GFR/1.73 sq M.predicted among non-blacks MDRD (S/P/Bld) [Vol rate/Area] 73 mL/min/{1.73_m2} Normal >60 [facility] Comment on above: Result Comment: mL/m in/1.73m2 CKD-EPI Creatinine Equation (2020) Performed By: #### L 503.6030, L100.0100, L500.2500, L500.4100, L502.0250, L503.6550 #### [facility] [address] [place], [address] Glucose [Mass/Vol] 198 mg/dL High 70-99 [facility] Comment on above: Performed By: #### L 503.6030, L100.0100, L500.2500, L500.4100, L502.0250, L503.6550 #### [facility] [address] [place], [address] Potassium [Moles/Vol] 3.7 mmol/L Normal 3.3-5.1 [facility] Comment on above: Performed By: #### L 503.6030, L100.0100, L500.2500, L500.4100, L502.0250, L503.6550 #### [facility] [address] [place], [address] Sodium [Moles/Vol] 139 mmol/L Normal 133-145 [facility] Comment on above: Performed By: #### L 503.6030, L100.0100, L500.2500, L500.4100, L502.0250, L503.6550 #### [facility] [address] [place], [address] Urea nitrogen [Mass/Vol] 10 mg/dL Normal 4-19 [facility] Comment on above: Performed By: #### L 503.6030, L100.0100, L500.2500, L500.4100, L502.0250, L503.6550 #### [facility] [address] [place], [address] Basophil percentageOrdered B y: Red Sandoval on 06-27-2025 Basophils/100 WBC (Bld) 0.7 % 0-1 [facility] CBC W/Diff, Automatedon 06-15 Absolute Lymph 1.04 X10 3/uL Normal 0.83-4.51 [facility] Comment on above: Performed By: #### L 503.6030, L100.0100, L500.2500, L500.4100, L502.0250, L503.6550 #### [facility] [address] [place], [address] Absolute Neut 4.1 X10 3/uL Normal 2.0-7.7 [facility] Comment on above: Performed By: #### L 503.6030, L100.0100, L500.2500, L500.4100, L502.0250, L503.6550 #### [facility] [address] [place], [address] Basophils/100 WBC (Bld) 0.7 % Normal 0-1 [facility] Comment on above: Performed By: #### L 503.6030, L100.0100, L500.2500, L500.4100, L502.0250, L503.6550 #### [facility] [address] [place], [address] Eosinophils/100 WBC (Bld) 3.8 % Normal 0-5 [facility] Comment on above: Performed By: #### L 503.6030, L100.0100, L500.2500, L500.4100, L502.0250, L503.6550 #### [facility] [address] [place], [address] Erythrocyte distribution width (RBC) [Ratio] 13.9 % Normal 11.6-14.6 [facility] Comment on above: Performed By: #### L 503.6030, L100.0100, L500.2500, L500.4100, L502.0250, L503.6550 #### [facility] [address] [place], [address] Hematocrit (Bld) [Volume fraction] 33.6 % Low 37-47 [facility] Comment on above: Performed By: #### L 503.6030, L100.0100, L500.2500, L500.4100, L502.0250, L503.6550 #### [facility] [address] [place], [address] Hemoglobin (Bld) [Mass/Vol] 10.7 g/dL Low 12.0-15.0 [facility] Comment on above: Performed By: #### L 503.6030, L100.0100, L500.2500, L500.4100, L502.0250, L503.6550 #### [facility] [address] [place], [address] IG% 1.000 High 0.0-0.9 [facility] Comment on above: Result Comment: IG% - Immature Granulocytes (promyelocytes, myelocytes and metamyelocytes) > 1% indicates that a LEFT SHIFT is Present. Performed By: #### L 503.6030, L100.0100, L500.2500, L500.4100, L502.0250, L503.6550 #### [facility] [address] [place], [address] Lymphocytes/100 WBC (Bld) 18.2 % Low 19-41 [facility] Comment on above: Performed By: #### L 503.6030, L100.0100, L500.2500, L500.4100, L502.0250, L503.6550 #### [facility] [address] [place], [address] MCH (RBC) [Entitic mass] 27.9 pg Normal 27.0-32.0 [facility] Comment on above: Performed By: #### L 503.6030, L100.0100, L500.2500, L500.4100, L502.0250, L503.6550 #### [facility] [address] [place], [address] MCHC (RBC) [Mass/Vol] 31.8 g/dL Low 32-36 [facility] Comment on above: Performed By: #### L 503.6030, L100.0100, L500.2500, L500.4100, L502.0250, L503.6550 #### [facility] [address] [place], [address] MCV (RBC) [Entitic vol] 87.5 fL Normal 81-99 [facility] Comment on above: Performed By: #### L 503.6030, L100.0100, L500.2500, L500.4100, L502.0250, L503.6550 #### [facility] [address] [place], [address] Monocytes/100 WBC (Bld) 5.2 % Normal 0-10 [facility] Comment on above: Performed By: #### L 503.6030, L100.0100, L500.2500, L500.4100, L502.0250, L503.6550 #### [facility] [address] [place], [address] Neutrophils/100 WBC (Bld) 71.1 % High 47-70 [facility] Comment on above: Performed By: #### L 503.6030, L100.0100, L500.2500, L500.4100, L502.0250, L503.6550 #### [facility] [address] [place], [address] Nucleated RBC (Bld) [#/Vol] 0 10*3/uL Normal 0-5 [facility] Comment on above: Performed By: #### L 503.6030, L100.0100, L500.2500, L500.4100, L502.0250, L503.6550 #### [facility] [address] [place], [address] Platelet mean volume (Bld) [Entitic vol] 9.9 fL Normal 6.2-12.0 [facility] Comment on above: Performed By: #### L 503.6030, L100.0100, L500.2500, L500.4100, L502.0250, L503.6550 #### [facility] [address] [place], [address] Platelets (Bld) [#/Vol] 244 10*3/uL Normal 150-450 [facility] Comment on above: Performed By: #### L 503.6030, L100.0100, L500.2500, L500.4100, L502.0250, L503.6550 #### [facility] [address] [place], [address] RBC (Bld) [#/Vol] 3.84 10*6/uL Low 4.2-5.4 [facility] Comment on above: Performed By: #### L 503.6030, L100.0100, L500.2500, L500.4100, L502.0250, L503.6550 #### [facility] [address] [place], [address] RDW SD 43.7 fl Normal 35.1-43.9 [facility] Comment on above: Performed By: #### L 503.6030, L100.0100, L500.2500, L500.4100, L502.0250, L503.6550 #### [facility] [address] [place], [address] WBC (Bld) [#/Vol] 5.7 10*3/uL Normal 4.4-11.0 [facility] Comment on above: Performed By: #### L 503.6030, L100.0100, L500.2500, L500.4100, L502.0250, L503.6550 #### [facility] [address] [place], [place], [id number] Calculated very low density lipoprotein (VLDL) cholesterol measurementOrdered By: Red Sandoval on 06-27-2025 Calculated very low density lipoprotein (VLDL) cholesterol measurement 45 mg/dL High 5-40 [facility] Carbon dioxide, total [Moles /volume] in Central venous bloodOrdered By: Red Sandoval on 06-27-2025 CO2 [Moles/Vol] 24.2 mmol/L 21.0-32.0 [facility] Chloride assayOrdered By: Yousuf Sandoval on 06-27-2025 Chloride [Moles/Vol] 98 mmol/L 98-108 [facility] Eosinophil percentageOrdered By: Red Sandoval on 06-27-2025 Eosinophils/100 WBC (Bld) 3.8 % 0-5 [facility] Erythrocyte distribution wid th ratioOrdered By: Red Sandoval on 06-27-2025 Erythrocyte distribution width (RBC) [Ratio] 13.9 % 11.6-14.6 [facility] Erythrocyte distribution wid th standard deviationOrdered By: Red Sandoval on 06-27-2025 Erythrocyte distribution width (RBC) [Ratio] 43.7 fl 35.1-43.9 [facility] Ferritinon 06-27-2025 Ferritin [Mass/Vol] 108 ng/mL Normal 22-378 [facility] Comment on above: Performed By: #### L 503.6030, L100.0100, L500.2500, L500.4100, L502.0250, L503.6550 #### [facility] [address] [facility] [place], [place], [address] Glomerular filtration rate ( GFR) estimation/1.73 sq m using serum, plasma, or whole bOrdered By: Red Sandoval on 06-27-2025 GFR/1.73 sq M.predicted among non-blacks MDRD (S/P/Bld) [Vol rate/Area] 73 mL/min/{1.73_m2} >60 [facility] Comment on above: mL/min/1.73m2 CKD-EP I Creatinine Equation (2020) Hematocrit Auto (Bld) [Volum e fraction]Ordered By: Rde Sandoval on 06-27-2025 Hematocrit (Bld) [Volume fraction] 33.6 % Low 37-47 [facility] Hemoglobin measurementOrdere d By: Red Sandoval on 06-27-2025 Hemoglobin (Bld) [Mass/Vol] 10.7 g/dL Low 12.0-15.0 [facility] Immature granulocytes/100 WB C Auto (Bld)Ordered By: Red Sandoval on 06-27-2025 Immature granulocytes/100 WBC (Bld) 1.000 % High 0.0-0.9 [facility] Comment on above: IG% - Immature Granu locytes (promyelocytes, myelocytes and metamyelocytes) > 1% indicates that a LEFT SHIFT is Present. Iron measurement (mass/mass) Ordered By: Red Sandoval on 06-27-2025 Iron (Unsp spec) [Mass/Mass] 53 ug/dL 50-170 [facility] Iron+Iron Binding Capacityon 06-27-2025 Iron [Mass/Vol] 53 ug/dL Normal 50-170 [facility] Comment on above: Performed By: #### L 503.6030, L100.0100, L500.2500, L500.4100, L502.0250, L503.6550 #### [facility] [address] [facility] [address] IRON SATURATION 14.0 Normal 13-59 [facility] Comment on above: Performed By: #### L 503.6030, L100.0100, L500.2500, L500.4100, L502.0250, L503.6550 #### [facility] [address] [facility] [address] TIBC 377 ug/dL Normal 250-450 [facility] Comment on above: Performed By: #### L 503.6030, L100.0100, L500.2500, L500.4100, L502.0250, L503.6550 #### [facility] [address] [place], [address] UIBC 324 ug/dL Normal 228-428 [facility] Comment on above: Performed By: #### L 503.6030, L100.0100, L500.2500, L500.4100, L502.0250, L503.6550 #### [facility] [address] [place], [address] LDL calc ser/plasOrdered By: Red Sandoval on 06-27-2025 Cholesterol in LDL [Mass/Vol] 102 mg/dL [facility] Comment on above: Tjaywamxgu=713-617 m g/dL & Higher Vdar=598 mg/dL or greaterFriedwald Equation for LDL-C Lipid Profileon 06-27-2025 CHOL:HDL 5.31 Normal [facility] Comment on above: Performed By: #### L 503.6030, L100.0100, L500.2500, L500.4100, L502.0250, L503.6550 #### [facility] [address] [place], [place], [id number] (529) Cholesterol [Mass/Vol] 181 mg/dL Normal <=200 [facility] Comment on above: Result Comment: Chol esterol level, Desirable <200 mg/dL Borderline high cholesterol 200-239 mg/dL High cholesterol >=240 mg/dL Recommendations of the NCEP Adult Treatment Panel for the following risk-cutoff thresholds for the [place] population. Performed By: #### L 503.6030, L100.0100, L500.2500, L500.4100, L502.0250, L503.6550 #### [facility] [address] [place], [address] Cholesterol in HDL [Mass/Vol] 34 mg/dL Low [facility] Comment on above: Result Comment: Mayda onal Cholesterol Education Program (NCEP) guidelines: <40 mg/dL: Low HDL-cholesterol (major risk factor for CHD) >= 60 mg/dL: High HDL-cholesterol (negative risk factor for CHD) HDL-cholesterol is affected by a number of factors, e.g. smoking, exercise, hormones, sex and age. Performed By: #### L 503.6030, L100.0100, L500.2500, L500.4100, L502.0250, L503.6550 #### [facility] [address] [place], [address] Cholesterol in LDL [Mass/Vol] 102 mg/dL Normal [facility] Comment on above: Result Comment: Bord fkmpug=579-721 mg/dL Higher Rccv=517 mg/dL or greater Friedwald Equation for LDL-C Performed By: #### L 503.6030, L100.0100, L500.2500, L500.4100, L502.0250, L503.6550 #### [facility] [address] [place], [address] Cholesterol in VLDL [Mass/Vol] 45 mg/dL High 5-40 [facility] Comment on above: Performed By: #### L 503.6030, L100.0100, L500.2500, L500.4100, L502.0250, L503.6550 #### [facility] [address] [place], [address] Triglyceride [Mass/Vol] 224 mg/dL High [facility] Comment on above: Result Comment: The drugs N-Acetylcysteine and Metamizole may falsely depress this assay. Normal range: <150 mg/dL Borderline High: 150-199 mg/dL High: 200-499 mg/dL Very High: >500 mg/dL Performed By: #### L 503.6030, L100.0100, L500.2500, L500.4100, L502.0250, L503.6550 #### [facility] [address] [place], [address] MCV (mean corpuscular volume ) determinationOrdered By: Red Sandoval on 06-27-2025 MCV (RBC) [Entitic vol] 87.5 fL 81-99 [facility] Mean corpuscular hemoglobin (MCH) determinationOrdered By: Red Sandoval on 06-27-2025 MCH (RBC) [Entitic mass] 27.9 pg 27.0-32.0 [facility] Mean corpuscular hemoglobin concentration (MCHC) determinationOrdered By: Red Sandoval on 06-27-2025 MCHC (RBC) [Mass/Vol] 31.8 g/dL Low 32-36 [facility] Mean platelet volume determi nationOrdered By: Red Sandoval on 06-27-2025 Platelet mean volume (Bld) [Entitic vol] 9.9 fL 6.2-12.0 [facility] Microalb:Creat Ratio,Random URon 06-27-2025 Creatinine [Mass/Vol] 91.20 mg/dL Normal 28.00-217.00 [facility] Comment on above: Performed By: #### L 503.6030, L100.0100, L500.2500, L500.4100, L502.0250, L503.6550 #### [facility] [address] [place], [place], [id number] (268) MALB:CREAT UNABLE TO CALCULATE Normal <30 mg/g CRE [facility] Comment on above: Performed By: #### L 503.6030, L100.0100, L500.2500, L500.4100, L502.0250, L503.6550 #### [facility] [address] [place], [place], [id number] MICROALBUMIN,UR < 12.0 Normal <20 mg/L [facility] Comment on above: Performed By: #### L 503.6030, L100.0100, L500.2500, L500.4100, L502.0250, L503.6550 #### [facility] [address] [place], [place], [id number] Microalbumin/creat ratio urO rdered By: Red Sandoval on 06-27-2025 Urine microalbumin/creatinine ratio measurement UNABLE TO CALCULATE mg/g CRE <30 [facility] Monocyte percentageOrdered B y: Red Sandoval on 06-27-2025 Monocytes/100 WBC (Bld) 5.2 % 0-10 [facility] Neutrophil percentageOrdered By: Red Sandoval on 06-27-2025 Neutrophils/100 WBC (Bld) 71.1 % High 47-70 [facility] No Panel InformationOrdered By: Red Sandoval on 06-27-2025 Unsaturated Iron Binding Capacity 324 ug/dL 228-428 [facility] Nucleated red blood cell per centageOrdered By: Red Sandoval on 06-27-2025 Nucleated RBC/100 WBC (Bld) [Ratio] 0 % 0-5 [facility] Platelet countOrdered By: Yousuf Sandoval on 06-27-2025 Platelets (Bld) [#/Vol] 244 10*3/uL 150-450 [facility] Potassium measurement (mass/ volume)Ordered By: Red Sandoval on 06-27-2025 Potassium (Unsp spec) [Mass/Vol] 3.7 mmol/L 3.3-5.1 [facility] RBC Auto (Bld) [#/Vol]Ordere d By: Red Sandoval on 06-27-2025 RBC (Bld) [#/Vol] 3.84 10*6/uL Low 4.2-5.4 [facility] Random urine creatinine sandy urement (mass/volume)Ordered By: Red Sandoval on 06-27-2025 Creatinine Unsp time (U) [Mass/Vol] 91.20 mg/dL 28.00-217.00 [facility] Screening total cholesterol/ high density lipoprotein (HDL) cholesterol ratioOrdered By: Red Sandoval on 06-27-2025 Cholesterol.total/Choles terol in HDL [Mass ratio] 5.31 {ratio} [facility] Serum creatinine measurement (mass/volume)Ordered By: Red Sandoavl on 06-27-2025 Creatinine [Mass/Vol] 0.93 mg/dL 0.70-1.20 [facility] Serum glucose measurement (m ass/volume)Ordered By: Red Sandoval on 06-27-2025 Glucose [Mass/Vol] 198 mg/dL High 70-99 [facility] Serum or plasma calcium sandy urement (mass/volume)Ordered By: Red Sandoval on 06-27-2025 Calcium [Mass/Vol] 8.7 mg/dL 7.6-11.0 [facility] Serum or plasma cholesterol in HDL measurement (mass/volume)Ordered By: Red Sandoval on 06-27-2025 Cholesterol in HDL [Mass/Vol] 34 mg/dL Low >40 [facility] Comment on above: National Cholesterol Education Program (NCEP) guidelines:<40 mg/dL: Low HDL-cholesterol (major risk factor for CHD)>= 60 mg/dL: High HDL-cholesterol (negative risk factor for CHD)HDL-cholesterol is affected by a number of factors, e.g. smoking, exercise, hormones, sex and age. Serum or plasma cholesterol measurement (mass/volume)Ordered By: Red Sandoval on 06-27-2025 Cholesterol [Mass/Vol] 181 mg/dL <201 [facility] Comment on above: Cholesterol level, D esirable <200 mg/dLBorderline high cholesterol 200-239 mg/dLHigh cholesterol >=240 mg/dLRecommendations of the NCEP Adult Treatment Panel for the following risk-cutoff thresholds for the [place] population. Serum or plasma ferritin darrel surement (mass/volume)Ordered By: Red Sandoval on 06-27-2025 Ferritin [Mass/Vol] 108 ng/mL 22-378 [facility] Serum or plasma iron saturat ion measurement (mass fraction)Ordered By: Red Sandoval on 06-27-2025 Iron saturation [Mass fraction] 14.0 % 13-59 [facility] Serum or plasma urea nitroge n measurement (mass/volume)Ordered By: Red Sandoval on 06-27-2025 Urea nitrogen [Mass/Vol] 10 mg/dL 4-19 [facility] Sodium levelOrdered By: Red Sandoval on 06-27-2025 Sodium [Moles/Vol] 139 mmol/L 133-145 [facility] Triglycerides measurementOrd ered By: Red Sandoval on 06-27-2025 Triglyceride [Mass/Vol] 224 mg/dL High <199 [facility] Comment on above: The drugs N-Acetylcy steine and Metamizole may falsely depress this assay. Normal range: <150 mg/dLBorderline High: 150-199 mg/dLHigh: 200-499 mg/dLVery High: >500 mg/dL Urine albumin measurement wi detection limit of 20 mg/L or less (mass/volume)Ordered By: Red Sandoval on 06-27-2025 Albumin DL <= 20 mg/L (U) [Mass/Vol] < 12.0 mg/L <20 mg/L [facility] White blood cell (WBC) count Ordered By: Red Sandoval on 06-27-2025 WBC (Bld) [#/Vol] 5.7 10*3/uL 4.4-11.0 [facility] Chest PA and Lateralon 06-15 Chest PA and Lateral [facility] Imaging Services [address] [place], [place] [address] Chest PA and Lateral MR#: [id number] Acct: [id number] Name: HEIDI ANDREWS Rep #: [id number] : 1970 F 55 From: Magdy Bowling PCP: Dr. Red Sandoval MD Status: REG CLI Study: Chest PA and Lateral Date of Exam: 06/15/25 Exam# [id number] Ordering Dr: Nikolai Kim MD PROCEDURE: CHEST PA AND LATERAL 06/15/2025 REASON FOR EXAM: SOB TECHNIQUE: CHEST PA AND LATERAL COMPARISON: None. RAD/Chest PA and Lateral IMPRESSION: Mild right hemidiaphragm elevation/eventration is seen. Lungs appear clear of acute disease. No pleural effusion or pneumothorax is noted. The cardiomediastinal silhouette is within the normal range. Mild thoracic spine degenerative changes are also seen. No evidence of acute cardiopulmonary disease. Reading Location: [place] [address] CC: Dr. Red Sandoval MD; Dr. Nikolai Kim MD Movie Star: Signed Normal [facility] Absolute lymphocyte countOrd ered By: Glen Chapman on 06-04-2025 Lymphocytes Auto (Unsp spec) [#/Vol] 1.05 10*3/uL 0.83-4.51 [facility] Absolute neutrophil countOrd ered By: Glen Chapman on 06-04-2025 Neutrophils (Bld) [#/Vol] 4.4 10*3/uL 2.0-7.7 [facility] Anion gap in Serum or Plasma Ordered By: Glen Chapman on 06-04-2025 Anion gap [Moles/Vol] 15 mmol/L 5-15 [facility] Automated lymphocyte count a s percentage of total leukocytesOrdered By: Glen Chapman on 06-04-2025 Lymphocytes/100 WBC Auto (Unsp spec) 17.1 % Low 19-41 [facility] BUN/creatinine ratioOrdered By: Glen Statonrito on 06-04-2025 Urea nitrogen/Creatinine [Mass ratio] 10.3 mg/mg 10-20 [facility] Basophil percentageOrdered B y: Glen Statonrito on 06-04-2025 Basophils/100 WBC (Bld) 0.5 % 0-1 [facility] Bilirubin, totalOrdered By: Glen Statonrito on 06-04-2025 Bilirubin [Mass/Vol] 0.26 mg/dL 0.00-1.30 [facility] CBC W/Diff, Automatedon 05-16 Absolute Lymph 1.05 X10 3/uL Normal 0.83-4.51 [facility] Comment on above: Performed By: #### L 503.6030, L100.0100, L500.2500, L500.4100, L502.0250, L503.6550 #### [facility] [address] [place], [address] Absolute Neut 4.4 X10 3/uL Normal 2.0-7.7 [facility] Comment on above: Performed By: #### L 503.6030, L100.0100, L500.2500, L500.4100, L502.0250, L503.6550 #### [facility] [address] [place], [address] Basophils/100 WBC (Bld) 0.5 % Normal 0-1 [facility] Comment on above: Performed By: #### L 503.6030, L100.0100, L500.2500, L500.4100, L502.0250, L503.6550 #### [facility] [address] [place], [address] Eosinophils/100 WBC (Bld) 4.7 % Normal 0-5 [facility] Comment on above: Performed By: #### L 503.6030, L100.0100, L500.2500, L500.4100, L502.0250, L503.6550 #### [facility] [address] [place], [address] Erythrocyte distribution width (RBC) [Ratio] 15.2 % High 11.6-14.6 [facility] Comment on above: Performed By: #### L 503.6030, L100.0100, L500.2500, L500.4100, L502.0250, L503.6550 #### [facility] [address] [place], [address] Hematocrit (Bld) [Volume fraction] 35.0 % Low 37-47 [facility] Comment on above: Performed By: #### L 503.6030, L100.0100, L500.2500, L500.4100, L502.0250, L503.6550 #### [facility] [address] [place], [address] Hemoglobin (Bld) [Mass/Vol] 11.3 g/dL Low 12.0-15.0 [facility] Comment on above: Performed By: #### L 503.6030, L100.0100, L500.2500, L500.4100, L502.0250, L503.6550 #### [facility] [address] [place], [address] IG% 1.300 High 0.0-0.9 [facility] Comment on above: Result Comment: IG% - Immature Granulocytes (promyelocytes, myelocytes and metamyelocytes) > 1% indicates that a LEFT SHIFT is Present. Performed By: #### L 503.6030, L100.0100, L500.2500, L500.4100, L502.0250, L503.6550 #### [facility] [address] [place], [address] Lymphocytes/100 WBC (Bld) 17.1 % Low 19-41 [facility] Comment on above: Performed By: #### L 503.6030, L100.0100, L500.2500, L500.4100, L502.0250, L503.6550 #### [facility] [address] [place], [address] MCH (RBC) [Entitic mass] 28.0 pg Normal 27.0-32.0 [facility] Comment on above: Performed By: #### L 503.6030, L100.0100, L500.2500, L500.4100, L502.0250, L503.6550 #### [facility] [address] [place], [address] MCHC (RBC) [Mass/Vol] 32.3 g/dL Normal 32-36 [facility] Comment on above: Performed By: #### L 503.6030, L100.0100, L500.2500, L500.4100, L502.0250, L503.6550 #### [facility] [address] [place], [address] MCV (RBC) [Entitic vol] 86.6 fL Normal 81-99 [facility] Comment on above: Performed By: #### L 503.6030, L100.0100, L500.2500, L500.4100, L502.0250, L503.6550 #### [facility] [address] [place], [address] Monocytes/100 WBC (Bld) 5.5 % Normal 0-10 [facility] Comment on above: Performed By: #### L 503.6030, L100.0100, L500.2500, L500.4100, L502.0250, L503.6550 #### [facility] [address] [place], [address] Neutrophils/100 WBC (Bld) 70.9 % High 47-70 [facility] Comment on above: Performed By: #### L 503.6030, L100.0100, L500.2500, L500.4100, L502.0250, L503.6550 #### [facility] [address] [place], [address] Nucleated RBC (Bld) [#/Vol] 0 10*3/uL Normal 0-5 [facility] Comment on above: Performed By: #### L 503.6030, L100.0100, L500.2500, L500.4100, L502.0250, L503.6550 #### [facility] [address] [place], [address] Platelet mean volume (Bld) [Entitic vol] 9.6 fL Normal 6.2-12.0 [facility] Comment on above: Performed By: #### L 503.6030, L100.0100, L500.2500, L500.4100, L502.0250, L503.6550 #### [facility] [address] [place], [address] Platelets (Bld) [#/Vol] 241 10*3/uL Normal 150-450 [facility] Comment on above: Performed By: #### L 503.6030, L100.0100, L500.2500, L500.4100, L502.0250, L503.6550 #### [facility] [address] [place], [address] RBC (Bld) [#/Vol] 4.04 10*6/uL Low 4.2-5.4 [facility] Comment on above: Performed By: #### L 503.6030, L100.0100, L500.2500, L500.4100, L502.0250, L503.6550 #### [facility] [address] [place], [address] RDW SD 47.2 fl High 35.1-43.9 [facility] Comment on above: Performed By: #### L 503.6030, L100.0100, L500.2500, L500.4100, L502.0250, L503.6550 #### [facility] [address] [place], [address] WBC (Bld) [#/Vol] 6.2 10*3/uL Normal 4.4-11.0 [facility] Comment on above: Performed By: #### L 503.6030, L100.0100, L500.2500, L500.4100, L502.0250, L503.6550 #### [facility] [address] [place], [address] CRPon 06-04-2025 C-REACTIVE PROT 23.30 mg/L High 0.0-3.0 [facility] Comment on above: Performed By: #### L 503.6030, L100.0100, L500.2500, L500.4100, L502.0250, L503.6550 #### [facility] [address] [place], [place], [id number] Carbon dioxide, total [Moles /volume] in Central venous bloodOrdered By: Glen Chapman on 06-04-2025 CO2 [Moles/Vol] 24.0 mmol/L 21.0-32.0 [facility] Chloride assayOrdered By: Jaimee Chapman on 06-04-2025 Chloride [Moles/Vol] 96 mmol/L Low 98-108 [facility] Comprehensive Metabolic Prof ilon 06-04-2025 Albumin [Mass/Vol] 4.2 g/dL Normal 3.5-5.0 [facility] Comment on above: Performed By: #### L 503.6030, L100.0100, L500.2500, L500.4100, L502.0250, L503.6550 #### [facility] [address] [place], [address] Albumin/Globulin [Mass ratio] 1.6 {ratio} Normal 0.9-2.4 [facility] Comment on above: Performed By: #### L 503.6030, L100.0100, L500.2500, L500.4100, L502.0250, L503.6550 #### [facility] [address] [place], [address] ALK PHOS 83 U/L Normal 35-104 [facility] Comment on above: Performed By: #### L 503.6030, L100.0100, L500.2500, L500.4100, L502.0250, L503.6550 #### [facility] [address] [place], [address] ALT [Catalytic activity/Vol] 12 U/L Normal <=34 [facility] Comment on above: Performed By: #### L 503.6030, L100.0100, L500.2500, L500.4100, L502.0250, L503.6550 #### [facility] [address] [place], [address] AST [Catalytic activity/Vol] 17 U/L Normal <=31 [facility] Comment on above: Performed By: #### L 503.6030, L100.0100, L500.2500, L500.4100, L502.0250, L503.6550 #### [facility] [address] [place], [address] Bilirubin [Mass/Vol] 0.26 mg/dL Normal 0.00-1.30 [facility] Comment on above: Performed By: #### L 503.6030, L100.0100, L500.2500, L500.4100, L502.0250, L503.6550 #### [facility] [address] [place], [address] BUN/CRE 10.3 RATIO Normal 10-20 [facility] Comment on above: Performed By: #### L 503.6030, L100.0100, L500.2500, L500.4100, L502.0250, L503.6550 #### [facility] [address] [place], [address] Calcium [Mass/Vol] 9.1 mg/dL Normal 7.6-11.0 [facility] Comment on above: Performed By: #### L 503.6030, L100.0100, L500.2500, L500.4100, L502.0250, L503.6550 #### [facility] [address] [place], [address] Chloride [Moles/Vol] 96 mmol/L Low 98-108 [facility] Comment on above: Performed By: #### L 503.6030, L100.0100, L500.2500, L500.4100, L502.0250, L503.6550 #### [facility] [address] [place], [address] CO2 [Moles/Vol] 24.0 mmol/L Normal 21.0-32.0 [facility] Comment on above: Performed By: #### L 503.6030, L100.0100, L500.2500, L500.4100, L502.0250, L503.6550 #### [facility] [address] [place], [address] Creatinine [Mass/Vol] 0.83 mg/dL Normal 0.70-1.20 [facility] Comment on above: Performed By: #### L 503.6030, L100.0100, L500.2500, L500.4100, L502.0250, L503.6550 #### [facility] [address] [place], [address] ECRCL 104.65 ml/min Normal 50-250 [facility] Comment on above: Performed By: #### L 503.6030, L100.0100, L500.2500, L500.4100, L502.0250, L503.6550 #### [facility] [address] [place], [address] GAP 15 Normal 5-15 [facility] Comment on above: Performed By: #### L 503.6030, L100.0100, L500.2500, L500.4100, L502.0250, L503.6550 #### [facility] [address] [place], [address] GFR/1.73 sq M.predicted among non-blacks MDRD (S/P/Bld) [Vol rate/Area] 84 mL/min/{1.73_m2} Normal >60 [facility] Comment on above: Result Comment: mL/m in/1.73m2 CKD-EPI Creatinine Equation (2020) Performed By: #### L 503.6030, L100.0100, L500.2500, L500.4100, L502.0250, L503.6550 #### [facility] [address] [place], [address] Globulin (S) [Mass/Vol] 2.7 g/dL Normal 2.2-4.2 [facility] Comment on above: Performed By: #### L 503.6030, L100.0100, L500.2500, L500.4100, L502.0250, L503.6550 #### [facility] [address] [place], [address] Glucose [Mass/Vol] 283 mg/dL High 70-99 [facility] Comment on above: Performed By: #### L 503.6030, L100.0100, L500.2500, L500.4100, L502.0250, L503.6550 #### [facility] [address] [place], [address] Potassium [Moles/Vol] 3.7 mmol/L Normal 3.3-5.1 [facility] Comment on above: Performed By: #### L 503.6030, L100.0100, L500.2500, L500.4100, L502.0250, L503.6550 #### [facility] [address] [place], [address] Sodium [Moles/Vol] 135 mmol/L Normal 133-145 [facility] Comment on above: Performed By: #### L 503.6030, L100.0100, L500.2500, L500.4100, L502.0250, L503.6550 #### [facility] [address] [place], [address] T PROT 6.9 g/dL Normal 5.9-8.4 [facility] Comment on above: Performed By: #### L 503.6030, L100.0100, L500.2500, L500.4100, L502.0250, L503.6550 #### [facility] [address] [place], [address] Urea nitrogen [Mass/Vol] 9 mg/dL Normal 4-19 [facility] Comment on above: Performed By: #### L 503.6030, L100.0100, L500.2500, L500.4100, L502.0250, L503.6550 #### [facility] [address] [place], [address] Eosinophil percentageOrdered By: Glen Chapman on 06-04-2025 Eosinophils/100 WBC (Bld) 4.7 % 0-5 [facility] Erythrocyte Sed Rateon 06-04 SED RATE 18 mm/hr Normal 0-30 [facility] Comment on above: Performed By: #### L 503.6030, L100.0100, L500.2500, L500.4100, L502.0250, L503.6550 #### [facility] [address] [place], [place], [id number] Erythrocyte distribution wid th ratioOrdered By: Glen Chapman on 06-04-2025 Erythrocyte distribution width (RBC) [Ratio] 15.2 % High 11.6-14.6 [facility] Erythrocyte distribution wid th standard deviationOrdered By: Glen Chapman on 06-04-2025 Erythrocyte distribution width (RBC) [Ratio] 47.2 fl High 35.1-43.9 [facility] Erythrocyte sedimentation ra teOrdered By: Glen Chapman on 06-04-2025 ESR (Bld) [Velocity] 18 mm/h 0-30 [facility] Ferritinon 06-04-2025 Ferritin [Mass/Vol] 76 ng/mL Normal 22-378 [facility] Comment on above: Performed By: #### L 503.6030, L100.0100, L500.2500, L500.4100, L502.0250, L503.6550 #### [facility] [address] [place], [place], [id number] Glomerular filtration rate ( GFR) estimation/1.73 sq m using serum, plasma, or whole bOrdered By: Glen Chapman on 06-04-2025 GFR/1.73 sq M.predicted among non-blacks MDRD (S/P/Bld) [Vol rate/Area] 84 mL/min/{1.73_m2} >60 [facility] Comment on above: mL/min/1.73m2 CKD-EP I Creatinine Equation (2020) Hematocrit Auto (Bld) [Volum e fraction]Ordered By: Glen Chapman on 06-04-2025 Hematocrit (Bld) [Volume fraction] 35.0 % Low 37-47 [facility] Hemoglobin measurementOrdere d By: Glen Chapman on 06-04-2025 Hemoglobin (Bld) [Mass/Vol] 11.3 g/dL Low 12.0-15.0 [facility] Immature granulocytes/100 WB C Auto (Bld)Ordered By: Glen Chapman on 06-04-2025 Immature granulocytes/100 WBC (Bld) 1.300 % High 0.0-0.9 [facility] Comment on above: IG% - Immature Granu locytes (promyelocytes, myelocytes and metamyelocytes) > 1% indicates that a LEFT SHIFT is Present. Iron measurement (mass/mass) Ordered By: Glen Chapman on 06-04-2025 Iron (Unsp spec) [Mass/Mass] 57 ug/dL 50-170 [facility] Iron+Iron Binding Capacityon 06-04-2025 Iron [Mass/Vol] 57 ug/dL Normal 50-170 [facility] Comment on above: Performed By: #### L 503.6030, L100.0100, L500.2500, L500.4100, L502.0250, L503.6550 #### [facility] [address] [place], [address] IRON SATURATION 14.0 Normal 13-59 [facility] Comment on above: Performed By: #### L 503.6030, L100.0100, L500.2500, L500.4100, L502.0250, L503.6550 #### [facility] [address] [place], [address] TIBC 395 ug/dL Normal 250-450 [facility] Comment on above: Performed By: #### L 503.6030, L100.0100, L500.2500, L500.4100, L502.0250, L503.6550 #### [facility] [address] [place], [address] UIBC 338 ug/dL Normal 228-428 [facility] Comment on above: Performed By: #### L 503.6030, L100.0100, L500.2500, L500.4100, L502.0250, L503.6550 #### [facility] [address] [place], [address] LDHon 06-04-2025 LDH 167 U/L Normal 84-246 [facility] Comment on above: Order Comment: 1 Performed By: #### L 503.6030, L100.0100, L500.2500, L500.4100, L502.0250, L503.6550 #### [facility] [address] [place], [place], [address] Laboratory - Chemistry and C hemistry - challengeOrdered By: Glen Chapman on 06-04-2025 AST [Catalytic activity/Vol] 17 U/L <32 [facility] Lactate dehydrogenase (LDH) measurementOrdered By: Glen Chapman on 06-04-2025 LDH [Catalytic activity/Vol] 167 U/L 84-246 [facility] MCV (mean corpuscular volume ) determinationOrdered By: Glen Chapman on 06-04-2025 MCV (RBC) [Entitic vol] 86.6 fL 81-99 [facility] Magnesiumon 06-04-2025 Magnesium [Mass/Vol] 1.5 mg/dL Normal 1.5-2.2 [facility] Comment on above: Performed By: #### L 503.6030, L100.0100, L500.2500, L500.4100, L502.0250, L503.6550 #### [facility] [address] [place], [place], [address] Magnesium measurement (mass/ volume)Ordered By: Glen Chapman on 06-04-2025 Magnesium (Unsp spec) [Mass/Vol] 1.5 mg/dL 1.5-2.2 [facility] Mean corpuscular hemoglobin (MCH) determinationOrdered By: Glen Chapman on 06-04-2025 MCH (RBC) [Entitic mass] 28.0 pg 27.0-32.0 [facility] Mean corpuscular hemoglobin concentration (MCHC) determinationOrdered By: Glen Chapman on 06-04-2025 MCHC (RBC) [Mass/Vol] 32.3 g/dL 32-36 [facility] Mean platelet volume determi nationOrdered By: Glen Chapman on 06-04-2025 Platelet mean volume (Bld) [Entitic vol] 9.6 fL 6.2-12.0 [facility] Monocyte percentageOrdered B y: Glen Chapman on 06-04-2025 Monocytes/100 WBC (Bld) 5.5 % 0-10 [facility] Neutrophil percentageOrdered By: Glen Chapman on 06-04-2025 Neutrophils/100 WBC (Bld) 70.9 % High 47-70 [facility] No Panel InformationOrdered By: Glen Chapman on 06-04-2025 Unsaturated Iron Binding Capacity 338 ug/dL 228-428 [facility] Nucleated red blood cell per centageOrdered By: Glen Chapman on 06-04-2025 Nucleated RBC/100 WBC (Bld) [Ratio] 0 % 0-5 [facility] [facility] On[facility] Visit Reporton 05-16 Oncology Visit Report [facility] [address] [place] [address] OFFICE VISIT Date of Service: 06/04/25 1109 MR#: [id number] Acct: [id number] Name: HEIDI ANDREWS Rep #: [id number] : 1970 From: Glen Chapman MD Age/Sex: 55/F Location: [facility] Status: Signed HPI Subjective Date of Service 06/04/25 Chief Complaint F/u for Iron dificiency anemia. History of Present Illness 55 y.o.woman presented to PCP with SOB, fatigue, palpitations, she was found to Microcytic anemia with negative stool for occult blood on 03/05/2025. Colonoscopy in Nov 2022 was negative. She was referred for management. Feels tired. Colonoscopy in Nov 2022 was negative. Was found to have Iron deficiency anemia, got IV iron sucrose on 03/15/2025, 03/22/2025 and 03/29/2025. She was also started on Vitamin B12 for deficiency. Comes for follow up. Feels better. PFSH Medical History Sleep apnea Wears glasses Thyroid disease Diabetes Anemia Former smoker Diabetes Anxiety Psoriasis Hypothyroid Vitamin D deficiency Hypertriglyceridemia Bipolar disorder, unspecified HTN (hypertension) Surgical History Hx of section Hx of bilateral breast reduction surgery Family History Father Hypertension Diabetes Sister Anxiety MCTD (mixed connective tissue disease) Mother Psoriatic arthritis Social History household members: spouse current occupational status: employed current occupation: [employer] Smoking Status: Former smoker alcohol intake: never substance use type: does not use Intake Vital Signs 05/07/25 08:27 06/04/25 11:10 Height 5 ft 6 in 5 ft 6 in Weight: 122.158 kg BMI 43.4 BP 121/71 H Blood Pressure Location Lt brachial Position Sitting Respiration 18 Pulse 78 Pulse Source Monitor Temp 97.6 F L Temperature Source Temporal Artery Pulse Oximetry (%) 96 Oxygen Delivery Method room air Intake Accompanied by: Self Is patient in pain?: No Allergies No Known Allergies Allergy (Verified 06/04/25 11:17) Medications ???Medication ???Instructions ???Recorded ???Confirmed ???Type gemfibrozil 600 mg tablet 600 mg PO BID 11/10/22 06/04/25 Hi story lamotrigine 150 mg tablet 150 mg PO BID 11/10/22 06/04/25 Hi story levothyroxine 88 mcg tablet 88 mcg PO DAILY 11/10/22 06/04/25 History (Levoxyl) metformin 1,000 mg tablet 1,000 mg PO BID 11/10/22 06/04/25 History metoprolol succinate 200 mg 200 mg PO DAILY 11/10/22 06/04/25 History tablet,extended release 24 hr (Toprol XL) valsartan 320 1 tab PO DAILY 11/10/22 06/04/25 H istory mg-hydrochlorothiazid e 12.5 mg tablet (Diovan HCT) oxybutynin chloride 5 mg tablet 5 mg PO BID 03/05/25 06/04/25 Hist ory clonidine HCl 0.1 mg tablet 0.05 mg PO BID 03/08/25 06/04/25 H istory fluoxetine 20 mg capsule (Prozac) 60 mg PO DAILY 03/08/25 06/04/25 History folic acid 1 mg tablet 1 mg PO QDAY #90 tabs 05/07/25 Rx mecobalamin (vitamin B12) 1,000 1,000 mcg PO QDAY #90 tabs 5 06/04/25 Rx mcg chewable tablet magnesium oxide 400 mg PO QDAY #30 caps 06/01/25 0 06/04/25 Rx risperidone 1 mg tablet 1.5 mg PO QHS 06/04/25 06/04/25 Hi story Central Venous Access Central Venous Access: No Laboratory Tests 03/01/25 03/05/25 05/07/25 11:43 10:19 07:49 WBC 5.0 4.6 Hgb 7.2 L 10.3 L Hct 26.7 L 33.0 L MCV 75.4 L Plt Count 232 Sodium Potassium Chloride Carbon Dioxide BUN Creatinine Glucose Calcium Phosphorus 2.6 L Iron 33 L 57 Magnesium 1.3 L TIBC 392 Iron Saturation 14.0 Ferritin 13 L 90 Total Bilirubin AST ALT Alkaline Phosphatase Lactate Dehydrogenase 132 C-React Prot Ext Range Total Protein Albumin Globulin Vitamin B12 152 L 06/04/25 09:59 WBC 6.2 Hgb 11.3 L Hct 35.0 L MCV Plt Count 241 Sodium 135 Potassium 3.7 Chloride 96 L Carbon Dioxide 24.0 BUN 9 Creatinine 0.83 Glucose 283 H Calcium 9.1 Phosphorus 2.4 L Iron 57 Magnesium 1.5 TIBC 395 Iron Saturation 14.0 Ferritin 76 Total Bilirubin 0.26 AST 17 ALT 12 Alkaline Phosphatase 83 Lactate Dehydrogenase 167 C-React Prot Ext Range 23.30 H Total Protein 6.9 Albumin 4.2 Globulin 2.7 Vitamin B12 416 Exam Physical Exam Const alert, oriented x3 and no apparent distress Coding Level of Care Code Off vis,est,level 3 Exam Problem Focused Diagnoses B12 deficiency E53.8 Iron deficiency anemia, unspe (more content not included)... Normal [facility] Phosphoruson 06-04-2025 Phosphate [Mass/Vol] 2.4 mg/dL Low 2.7-4.5 [facility] Comment on above: Performed By: #### L 503.6030, L100.0100, L500.2500, L500.4100, L502.0250, L503.6550 #### [facility] [address] [place], [address] Platelet countOrdered By: Jaimee Chapman on 06-04-2025 Platelets (Bld) [#/Vol] 241 10*3/uL 150-450 [facility] Potassium measurement (mass/ volume)Ordered By: Glen Chapman on 06-04-2025 Potassium (Unsp spec) [Mass/Vol] 3.7 mmol/L 3.3-5.1 [facility] RBC Auto (Bld) [#/Vol]Ordere d By: Glen Chapman on 06-04-2025 RBC (Bld) [#/Vol] 4.04 10*6/uL Low 4.2-5.4 [facility] Serum creatinine measurement (mass/volume)Ordered By: Glen Chapman on 06-04-2025 Creatinine [Mass/Vol] 0.83 mg/dL 0.70-1.20 [facility] Serum globulin measurementOr dered By: Glen Chapman on 06-04-2025 Globulin (S) [Mass/Vol] 2.7 g/dL 2.2-4.2 [facility] Serum glucose measurement (m ass/volume)Ordered By: Glen Chapman on 06-04-2025 Glucose [Mass/Vol] 283 mg/dL High 70-99 [facility] Serum or plasma C reactive p rotein measurement (mass/volume)Ordered By: Glen Chapman on 06-04-2025 CRP [Mass/Vol] 23.30 mg/L High 0.0-3.0 [facility] Serum or plasma alanine cueto otransferase (ALT) measurementOrdered By: Glen Chapman on 06-04-2025 ALT [Catalytic activity/Vol] 12 U/L <35 [facility] Serum or plasma albumin sandy urement (mass/volume)Ordered By: Glen Chapman on 06-04-2025 Albumin [Mass/Vol] 4.2 g/dL 3.5-5.0 [facility] Serum or plasma albumin/glob ulin mass ratioOrdered By: Glen Chapman on 06-04-2025 Albumin/Globulin [Mass ratio] 1.6 {ratio} 0.9-2.4 [facility] Serum or plasma alkaline rebecca sphatase measurementOrdered By: Glen Chapman on 06-04-2025 ALP [Catalytic activity/Vol] 83 U/L 35-104 [facility] Serum or plasma calcium sandy urement (mass/volume)Ordered By: Glen Chapman on 06-04-2025 Calcium [Mass/Vol] 9.1 mg/dL 7.6-11.0 [facility] Serum or plasma ferritin darrel surement (mass/volume)Ordered By: Glen Chapman on 06-04-2025 Ferritin [Mass/Vol] 76 ng/mL 22-378 [facility] Serum or plasma iron saturat ion measurement (mass fraction)Ordered By: Glen Chapman on 06-04-2025 Iron saturation [Mass fraction] 14.0 % 13-59 [facility] Serum or plasma urea nitroge n measurement (mass/volume)Ordered By: Glen Chapman on 06-04-2025 Urea nitrogen [Mass/Vol] 9 mg/dL 4-19 [facility] Sodium levelOrdered By: Cy Chapman on 06-04-2025 Sodium [Moles/Vol] 135 mmol/L 133-145 [facility] Total proteinOrdered By: Vasquez Chapman on 06-04-2025 Protein [Mass/Vol] 6.9 g/dL 5.9-8.4 [facility] Vitamin B12on 06-04-2025 Cobalamin (Vitamin B12) [Mass/Vol] 416 pg/mL Normal 180-914 [facility] Comment on above: Performed By: #### L 503.6030, L100.0100, L500.2500, L500.4100, L502.0250, L503.6550 #### [facility] [address] [place], [address] Vitamin B12 ser/plasOrdered By: Glen Chapman on 06-04-2025 Cobalamin (Vitamin B12) [Mass/Vol] 416 pg/mL 180-914 [facility] White blood cell (WBC) count Ordered By: Glen Chapman on 06-04-2025 WBC (Bld) [#/Vol] 6.2 10*3/uL 4.4-11.0 [facility] Absolute lymphocyte countOrd ered By: Glen Chapman on 05-07-2025 Lymphocytes Auto (Unsp spec) [#/Vol] 1.11 10*3/uL 0.83-4.51 [facility] Absolute neutrophil countOrd ered By: Glen Chapman on 05-07-2025 Neutrophils (Bld) [#/Vol] 2.9 10*3/uL 2.0-7.7 [facility] Automated lymphocyte count a s percentage of total leukocytesOrdered By: Glen Chapman on 05-07-2025 Lymphocytes/100 WBC Auto (Unsp spec) 23.9 % 19-41 [facility] Basophil percentageOrdered B y: Glen Chapman on 05-07-2025 Basophils/100 WBC (Bld) 0.4 % 0-1 [facility] CBC W/Diff, Automatedon 04-16 Absolute Lymph 1.11 X10 3/uL Normal 0.83-4.51 [facility] Comment on above: Performed By: #### L 503.6030, L100.0100, L500.2500, L500.4100, L502.0250, L503.6550 #### [facility] [address] [place], [address] Absolute Neut 2.9 X10 3/uL Normal 2.0-7.7 [facility] Comment on above: Performed By: #### L 503.6030, L100.0100, L500.2500, L500.4100, L502.0250, L503.6550 #### [facility] [address] [place], [address] Basophils/100 WBC (Bld) 0.4 % Normal 0-1 [facility] Comment on above: Performed By: #### L 503.6030, L100.0100, L500.2500, L500.4100, L502.0250, L503.6550 #### [facility] [address] [place], [address] Eosinophils/100 WBC (Bld) 6.3 % High 0-5 [facility] Comment on above: Performed By: #### L 503.6030, L100.0100, L500.2500, L500.4100, L502.0250, L503.6550 #### [facility] [address] [place], [address] Erythrocyte distribution width (RBC) [Ratio] 19.2 % High 11.6-14.6 [facility] Comment on above: Performed By: #### L 503.6030, L100.0100, L500.2500, L500.4100, L502.0250, L503.6550 #### [facility] [address] [place], [address] Hematocrit (Bld) [Volume fraction] 33.0 % Low 37-47 [facility] Comment on above: Performed By: #### L 503.6030, L100.0100, L500.2500, L500.4100, L502.0250, L503.6550 #### [facility] [address] [place], [address] Hemoglobin (Bld) [Mass/Vol] 10.3 g/dL Low 12.0-15.0 [facility] Comment on above: Performed By: #### L 503.6030, L100.0100, L500.2500, L500.4100, L502.0250, L503.6550 #### [facility] [address] [place], [address] IG% 1.100 High 0.0-0.9 [facility] Comment on above: Result Comment: IG% - Immature Granulocytes (promyelocytes, myelocytes and metamyelocytes) > 1% indicates that a LEFT SHIFT is Present. Performed By: #### L 503.6030, L100.0100, L500.2500, L500.4100, L502.0250, L503.6550 #### [facility] [address] [place], [address] Lymphocytes/100 WBC (Bld) 23.9 % Normal 19-41 [facility] Comment on above: Performed By: #### L 503.6030, L100.0100, L500.2500, L500.4100, L502.0250, L503.6550 #### [facility] [address] [place], [address] MCH (RBC) [Entitic mass] 28.0 pg Normal 27.0-32.0 [facility] Comment on above: Performed By: #### L 503.6030, L100.0100, L500.2500, L500.4100, L502.0250, L503.6550 #### [facility] [address] [place], [address] MCHC (RBC) [Mass/Vol] 31.2 g/dL Low 32-36 [facility] Comment on above: Performed By: #### L 503.6030, L100.0100, L500.2500, L500.4100, L502.0250, L503.6550 #### [facility] [address] [place], [address] MCV (RBC) [Entitic vol] 89.7 fL Normal 81-99 [facility] Comment on above: Performed By: #### L 503.6030, L100.0100, L500.2500, L500.4100, L502.0250, L503.6550 #### [facility] [address] [place], [address] Monocytes/100 WBC (Bld) 6.9 % Normal 0-10 [facility] Comment on above: Performed By: #### L 503.6030, L100.0100, L500.2500, L500.4100, L502.0250, L503.6550 #### [facility] [address] [place], [address] Neutrophils/100 WBC (Bld) 61.4 % Normal 47-70 [facility] Comment on above: Performed By: #### L 503.6030, L100.0100, L500.2500, L500.4100, L502.0250, L503.6550 #### [facility] [address] [place], [address] Nucleated RBC (Bld) [#/Vol] 0 10*3/uL Normal 0-5 [facility] Comment on above: Performed By: #### L 503.6030, L100.0100, L500.2500, L500.4100, L502.0250, L503.6550 #### [facility] [address] [place], [address] Platelet mean volume (Bld) [Entitic vol] 9.3 fL Normal 6.2-12.0 [facility] Comment on above: Performed By: #### L 503.6030, L100.0100, L500.2500, L500.4100, L502.0250, L503.6550 #### [facility] [address] [place], [address] Platelets (Bld) [#/Vol] 232 10*3/uL Normal 150-450 [facility] Comment on above: Performed By: #### L 503.6030, L100.0100, L500.2500, L500.4100, L502.0250, L503.6550 #### [facility] [address] [place], [address] RBC (Bld) [#/Vol] 3.68 10*6/uL Low 4.2-5.4 [facility] Comment on above: Performed By: #### L 503.6030, L100.0100, L500.2500, L500.4100, L502.0250, L503.6550 #### [facility] [address] [place], [address] RDW SD 63.7 fl High 35.1-43.9 [facility] Comment on above: Performed By: #### L 503.6030, L100.0100, L500.2500, L500.4100, L502.0250, L503.6550 #### [facility] [address] [place], [address] WBC (Bld) [#/Vol] 4.6 10*3/uL Normal 4.4-11.0 [facility] Comment on above: Performed By: #### L 503.6030, L100.0100, L500.2500, L500.4100, L502.0250, L503.6550 #### [facility] [address] [place], [address] Eosinophil percentageOrdered By: Glen Ari on 05-07-2025 Eosinophils/100 WBC (Bld) 6.3 % High 0-5 [facility] Erythrocyte distribution wid th ratioOrdered By: [place] Ari on 05-07-2025 Erythrocyte distribution width (RBC) [Ratio] 19.2 % High 11.6-14.6 [facility] Erythrocyte distribution wid th standard deviationOrdered By: [facility] on 05-07-2025 Erythrocyte distribution width (RBC) [Ratio] 63.7 fl High 35.1-43.9 [facility] Ferritinon 05-07-2025 Ferritin [Mass/Vol] 90 ng/mL Normal 22-378 [facility] Comment on above: Performed By: #### L 503.6030, L100.0100, L500.2500, L500.4100, L502.0250, L503.6550 #### [facility] [address] [place], [place], [address] Hematocrit Auto (Bld) [Volum e fraction]Ordered By: Glen Chapman on 05-07-2025 Hematocrit (Bld) [Volume fraction] 33.0 % Low 37-47 [facility] Hemoglobin measurementOrdere d By: Glen Chapman on 05-07-2025 Hemoglobin (Bld) [Mass/Vol] 10.3 g/dL Low 12.0-15.0 [facility] Immature granulocytes/100 WB C Auto (Bld)Ordered By: Glen Chapman on 05-07-2025 Immature granulocytes/100 WBC (Bld) 1.100 % High 0.0-0.9 [facility] Comment on above: IG% - Immature Granu locytes (promyelocytes, myelocytes and metamyelocytes) > 1% indicates that a LEFT SHIFT is Present. Iron measurement (mass/mass) Ordered By: Glen Chapman on 05-07-2025 Iron (Unsp spec) [Mass/Mass] 57 ug/dL 50-170 [facility] Iron+Iron Binding Capacityon 05-07-2025 Iron [Mass/Vol] 57 ug/dL Normal 50-170 [facility] Comment on above: Performed By: #### L 503.6030, L100.0100, L500.2500, L500.4100, L502.0250, L503.6550 #### [facility] [address] [place], [address] IRON SATURATION 14.0 Normal 13-59 [facility] Comment on above: Performed By: #### L 503.6030, L100.0100, L500.2500, L500.4100, L502.0250, L503.6550 #### [facility] [address] [place], [address] TIBC 392 ug/dL Normal 250-450 [facility] Comment on above: Performed By: #### L 503.6030, L100.0100, L500.2500, L500.4100, L502.0250, L503.6550 #### [facility] [address] [place], [address] UIBC 335 ug/dL Normal 228-428 [facility] Comment on above: Performed By: #### L 503.6030, L100.0100, L500.2500, L500.4100, L502.0250, L503.6550 #### [facility] [address] [place], [address] LDHon 05-07-2025 LDH 132 U/L Normal 84-246 [facility] Comment on above: Order Comment: 1 Performed By: #### L 503.6030, L100.0100, L500.2500, L500.4100, L502.0250, L503.6550 #### [facility] [address] [place], [address] Lactate dehydrogenase (LDH) measurementOrdered By: Glen Chapman on 05-07-2025 LDH [Catalytic activity/Vol] 132 U/L 84-246 [facility] MCV (mean corpuscular volume ) determinationOrdered By: Glen Chapman on 05-07-2025 MCV (RBC) [Entitic vol] 89.7 fL 81-99 [facility] Magnesiumon 05-07-2025 Magnesium [Mass/Vol] 1.3 mg/dL Low 1.5-2.2 [facility] Comment on above: Performed By: #### L 503.6030, L100.0100, L500.2500, L500.4100, L502.0250, L503.6550 #### [facility] [address] [facility] [place], [address] Magnesium measurement (mass/ volume)Ordered By: Glen Chapman on 05-07-2025 Magnesium (Unsp spec) [Mass/Vol] 1.3 mg/dL Low 1.5-2.2 [facility] Mean corpuscular hemoglobin (MCH) determinationOrdered By: Glen Chapman on 05-07-2025 MCH (RBC) [Entitic mass] 28.0 pg 27.0-32.0 [facility] Mean corpuscular hemoglobin concentration (MCHC) determinationOrdered By: Glen Chapman on 05-07-2025 MCHC (RBC) [Mass/Vol] 31.2 g/dL Low 32-36 [facility] Mean platelet volume determi nationOrdered By: Glen Chapman on 05-07-2025 Platelet mean volume (Bld) [Entitic vol] 9.3 fL 6.2-12.0 [facility] Monocyte percentageOrdered B y: Glen Chapman on 05-07-2025 Monocytes/100 WBC (Bld) 6.9 % 0-10 [facility] Neutrophil percentageOrdered By: Glen Chapman on 05-07-2025 Neutrophils/100 WBC (Bld) 61.4 % 47-70 [facility] No Panel InformationOrdered By: Glen Chapman on 05-07-2025 Unsaturated Iron Binding Capacity 335 ug/dL 228-428 [facility] Nucleated red blood cell per centageOrdered By: Glen Chapman on 05-07-2025 Nucleated RBC/100 WBC (Bld) [Ratio] 0 % 0-5 [facility] Oncology Visit Reporton 04-16 Oncology Visit Report [facility] [place] [address] [place] [address] OFFICE VISIT Date of Service: 05/07/25825 MR#: [id number] Acct: [id number] Name: HEIDI ANDREWS Rep #: [id number] : 1970 From: Glen Chapman MD Age/Sex: 55/F Location: [facility] Status: Signed HPI Subjective Date of Service 05/07/25 Chief Complaint F/u for Iron dificiency anemia. History of Present Illness 55 y.o.woman presented to PCP with SOB, fatigue, palpitations, she was found to Microcytic anemia with negative stool for occult blood on 03/05/2025. Colonoscopy in Nov 2022 was negative. She was referred for management. Feels tired. Colonoscopy in Nov 2022 was negative. Was found to have Iron deficiency anemia, got IV iron sucrose on 03/15/2025, 03/22/2025 and 03/29/2025. Comes for follow up. Feels better. 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 [employer] Smoking Status: Former smoker alcohol intake: never substance use type: does not use Intake Vital Signs 03/29/25 08:03 05/07/25 08:27 Height 5 ft 6 in 5 ft 6 in Weight: 122.47 kg BMI 43.5 BP 132/82 H Blood Pressure Location Lt brachial Position Sitting Respiration 18 Pulse 75 Pulse Source Monitor Temp 98.0 F Temperature Source Temporal Artery Pulse Oximetry (%) 96 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 by: Self Is patient in pain?: No Allergies No Known Allergies Allergy (Verified 05/07/25 08:29) Medications ???Medication ???Instructions ???Recorded ???Confirmed ???Type gemfibrozil 600 mg tablet 600 mg PO BID 11/10/22 05/07/25 Hi story lamotrigine 150 mg tablet 150 mg PO BID 11/10/22 05/07/25 Hi story levothyroxine 88 mcg tablet 88 mcg PO DAILY 11/10/22 05/07/25 History (Levoxyl) metformin 1,000 mg tablet 1,000 mg PO BID 11/10/22 05/07/25 History metoprolol succinate 200 mg 200 mg PO DAILY 11/10/22 05/07/25 History tablet,extended release 24 hr (Toprol XL) risperidone 2 mg tablet (Risperdal) 2 mg PO QHS 11/10/22 05/07/25 H istory valsartan 320 1 tab PO DAILY 11/10/22 05/07/25 H istory mg-hydrochlorothiazid e 12.5 mg tablet (Diovan HCT) oxybutynin chloride 5 mg tablet 5 mg PO BID 03/05/25 05/07/25 Hist ory clonidine HCl 0.1 mg tablet 0.05 mg PO BID 03/08/25 05/07/25 H istory fluoxetine 20 mg capsule (Prozac) 60 mg PO DAILY 03/08/25 05/07/25 History folic acid 1 mg tablet 1 mg PO QDAY #90 tabs 05/07/25 Rx magnesium oxide 400 mg PO QDAY #30 caps 05/07/25 0 05/07/25 Rx mecobalamin (vitamin B12) 1,000 1,000 mcg PO QDAY #90 tabs 5 05/07/25 Rx mcg chewable tablet Central Venous Access Central Venous Access: No Laboratory Tests 03/01/25 03/05/25 05/07/25 11:43 10:19 07:49 WBC 5.0 4.6 Hgb 7.2 L 10.3 L Hct 26.7 L 33.0 L MCV 75.4 L Plt Count 232 Phosphorus 2.6 L Iron 33 L 57 Magnesium 1.3 L TIBC 392 Iron Saturation 14.0 Ferritin 13 L 90 Lactate Dehydrogenase 132 Vitamin B12 152 L Exam Physical Exam Const alert, oriented x3 and no apparent distress Coding Level of Care Code Off vis,est,level 3 Exam Problem Focused Diagnoses B12 deficiency E53.8 Iron deficiency anemia, unspecified iron deficiency anemia type D50.9 Iron deficiency anemia type: unspecified iron deficiency Hypomagnesemia E83.42 Assessment and Plan Assessment and Plan (1) B12 deficiency: Status: Acute Plan: To start Oral Vitamin B12 1000mcg daily with folate. (2) Iron deficiency anemia: Status: Chronic Qualifiers: Iron deficiency anemia type: unspecified iron deficiency Qualified Code(s): D50.9 - Iron deficiency anemia, unspecified Comment: Got IV Iron replacement. Iron profile is normal today. Plan: To continue Oral 2-3 times a week. (3) Hypomagnesemia: Status: Acute Plan: To start Magnesium Oxide 500mg daily. Medications: New mecobalamin (vitamin B12) 1,000 mcg PO QDAY 90 tabs 0RF folic acid 1 mg PO QDAY 90 tabs 0RF magnesium oxide 400 mg PO QDAY 30 caps 0RF Plan Details Foll (more content not included)... Normal [facility] Phosphoruson 05-07-2025 Phosphate [Mass/Vol] 2.6 mg/dL Low 2.7-4.5 [facility] Comment on above: Performed By: #### L 503.6030, L100.0100, L500.2500, L500.4100, L502.0250, L503.6550 #### [facility] [address] [place], [place], [id number] Platelet countOrdered By: Jaimee Chapman on 05-07-2025 Platelets (Bld) [#/Vol] 232 10*3/uL 150-450 [facility] RBC Auto (Bld) [#/Vol]Ordere d By: Glen Chapman on 05-07-2025 RBC (Bld) [#/Vol] 3.68 10*6/uL Low 4.2-5.4 [facility] Serum or plasma ferritin darrel surement (mass/volume)Ordered By: Glen Chapman on 05-07-2025 Ferritin [Mass/Vol] 90 ng/mL 22-378 [facility] Serum or plasma iron saturat ion measurement (mass fraction)Ordered By: Glen Chapman on 05-07-2025 Iron saturation [Mass fraction] 14.0 % 13-59 [facility] Vitamin B12on 05-07-2025 Cobalamin (Vitamin B12) [Mass/Vol] 152 pg/mL Low 180-914 [facility] Comment on above: Performed By: #### L 503.6030, L100.0100, L500.2500, L500.4100, L502.0250, L503.6550 #### [facility] [address] [facility] [place], [address] Vitamin B12 ser/plasOrdered By: Glen Chapman on 05-07-2025 Cobalamin (Vitamin B12) [Mass/Vol] 152 pg/mL Low 180-914 [facility] White blood cell (WBC) count Ordered By: Glen Chapman on 05-07-2025 WBC (Bld) [#/Vol] 4.6 10*3/uL 4.4-11.0 [facility] Cardiovascular stress test r eportOrdered By: John Damian on 04-17-2025 Study report [facility] Cardi[facility] Services [address] [place] [address] MR#: [id number] Acct: [id number] Name: HEIDI ANDREWS Rep #: [id number] : 1970 55 From: John Damian MD Primary Care: Dr. Red Sandoval MD Status : REG I Referring Dr: Red Sandoval MD Sex: F C Stress Test Report Date: 04/17/2025 Procedure: Pharmacologic stress nuclear imaging study Indications: Chest pain Consent: Per the patient Procedure: The patient was scheduled for exercise stress Myoview however she found herself unable to walk on treadmill. Subsequently the test was changed to pharmacological stress nuclear. The patient underwent pharmacologic (Regadenoson 0.4mg ) evaluation with a peak heart rate of 89 beats per minute (53%predicted maximal heart rate) and a peak blood pressure of 128/72 mmHg. The baseline ECG demonstrated sinus rhythm. The peak pharmacologic ECG failed to show any ischemic changes. There were no cardiac dysrhythmias pretest, during pharmacologic infusion, or recovery. There was no complaint of chest discomfort during pharmacologic infusion or recovery. The patient was injected with 14.6 millicuries of technetium 99m Cardiolite and subsequently rest SPECT Cardiolite nuclear imaging was obtained in the horizontal long, vertical long, and short axis views. The patient underwent pharmacologic (Regadenoson) evaluation. The patient was injected with 44.5 millicuries of technetium 99m Cardiolite and subsequently stress SPECT Cardiolite nuclear imaging was obtained in the horizontal long, vertical long, and short axis views. A gated Cardiolite study at peak stress was obtained. The examination was stopped secondary to completion of protocol. Rest and stress SPECT Cardiolite nuclear imaging status post realignment, normalization, and attenuation correction demonstrate small reversible apical perfusion defect suggestive of apical ischemia. There is end systolic thickening and brightening. The gated Cardiolite study demonstrates myocardial thickening and inward wall motion. The reported LVEF is 66%. Impression: 1. Pharmacologic (Regadenoson) evaluation 2. Peak pharmacologic ECG with no diagnostic ischemic changes. 3. There were no cardiac dysrhythmias pretest, during pharmacologic infusion, or recovery. 5. Small reversible perfusion defect of the apex suggestive of mild ischemia. 6. The gated Cardiolite study reports an LVEF of 66%. This note was generated with [employer] software. It may contain incorrectwords, spelling, and punctuation that were not noted in checking the note beforesigning. 04/17/25928 Date _ John Damian MD CC: Dr. Red Sandoval MD ~ Date Dictated: 04/17/25925 Date Transcribed: 04/17/25925 Movie Star: MARY Smith [facility] Work Phone: Stress Reporton 04-17-2025 Stress Report [facility] Cardiovascular Services [address] [place] [address] MR#: [id number] Acct: [id number] Name: HEIDI ANDREWS Rep #: [id number] : 1970 55 From: John Damian MD Primary Care: Dr. Red Sandoval MD Status: REG CLI Referring Dr: Red Sandoval MD Sex: F C Stress Test Report Date: 04/17/2025 Procedure: Pharmacologic stress nuclear imaging study Indications: Chest pain Consent: Per the patient Procedure: The patient was scheduled for exercise stress Myoview however she found herself unable to walk on treadmill. Subsequently the test was changed to pharmacological stress nuclear. The patient underwent pharmacologic (Regadenoson 0.4mg ) evaluation with a peak heart rate of 89 beats per minute (53%predicted maximal heart rate) and a peak blood pressure of 128/72 mmHg. The baseline ECG demonstrated sinus rhythm. The peak pharmacologic ECG failed to show any ischemic changes. There were no cardiac dysrhythmias pretest, during pharmacologic infusion, or recovery. There was no complaint of chest discomfort during pharmacologic infusion or recovery. The patient was injected with 14.6 millicuries of technetium 99m Cardiolite and subsequently rest SPECT Cardiolite nuclear imaging was obtained in the horizontal long, vertical long, and short axis views. The patient underwent pharmacologic (Regadenoson) evaluation. The patient was injected with 44.5 millicuries of technetium 99m Cardiolite and subsequently stress SPECT Cardiolite nuclear imaging was obtained in the horizontal long, vertical long, and short axis views. A gated Cardiolite study at peak stress was obtained. The examination was stopped secondary to completion of protocol. Rest and stress SPECT Cardiolite nuclear imaging status post realignment, normalization, and attenuation correction demonstrate small reversible apical perfusion defect suggestive of apical ischemia. There is end systolic thickening and brightening. The gated Cardiolite study demonstrates myocardial thickening and inward wall motion. The reported LVEF is 66%. Impression: 1. Pharmacologic (Regadenoson) evaluation 2. Peak pharmacologic ECG with no diagnostic ischemic changes. 3. There were no cardiac dysrhythmias pretest, during pharmacologic infusion, or recovery. 5. Small reversible perfusion defect of the apex suggestive of mild ischemia. 6. The gated Cardiolite study reports an LVEF of 66%. This note was generated with Software 2000 dictation software. It may contain incorrect words, spelling, and punctuation that were not noted in checking the note before signing. 04/17/25928 Date John Damian MD CC: Dr. Red Sandoval MD Date Dictated: 04/17/25925 Date Transcribed: 04/17/25925 Movie Star: MARY Signed Normal [facility] Absolute lymphocyte countOrd ered By: Red Sandoval on 03-29-2025 Lymphocytes Auto (Unsp spec) [#/Vol] 0.95 10*3/uL 0.83-4.51 [facility] Absolute neutrophil countOrd ered By: Red Sandoval on 03-29-2025 Neutrophils (Bld) [#/Vol] 4.6 10*3/uL 2.0-7.7 [facility] Automated lymphocyte count a s percentage of total leukocytesOrdered By: Red Sandoval on 03-29-2025 Lymphocytes/100 WBC Auto (Unsp spec) 15.0 % Low 19-41 [facility] Basophil percentageOrdered B y: Red Sandoval on 03-29-2025 Basophils/100 WBC (Bld) 0.3 % 0-1 [facility] Blood polychromasia detectio n by light microscopyOrdered By: Red Sandoval on 03-29-2025 Polychromasia LM Ql (Bld) 1+ [facility] CBC W/Diff, Automatedon 03-15 Anisocytosis Ql (Bld) 2+ Normal [facility] Comment on above: Performed By: #### L 503.6030, L100.0100, L500.2500, L500.4100, L502.0250, L503.6550 #### [facility] [address] [place], [address] POLYCHROMASIA 1+ Normal [facility] Comment on above: Performed By: #### L 503.6030, L100.0100, L500.2500, L500.4100, L502.0250, L503.6550 #### [facility] [address] [place], [address] Eosinophil percentageOrdered By: Red Sandoval on 03-29-2025 Eosinophils/100 WBC (Bld) 3.9 % 0-5 [facility] Erythrocyte distribution wid th ratioOrdered By: Red Sandoval on 03-29-2025 Erythrocyte distribution width (RBC) [Ratio] 27.1 % High 11.6-14.6 [facility] Erythrocyte distribution wid th standard deviationOrdered By: Red Sandoval on 03-29-2025 Erythrocyte distribution width (RBC) [Ratio] 81.7 fl High 35.1-43.9 [facility] Hematocrit Auto (Bld) [Volum e fraction]Ordered By: Red Sandoval on 03-29-2025 Hematocrit (Bld) [Volume fraction] 31.9 % Low 37-47 [facility] Hemoglobin measurementOrdere d By: Red Sandoval on 03-29-2025 Hemoglobin (Bld) [Mass/Vol] 9.2 g/dL Low 12.0-15.0 [facility] Immature granulocytes/100 WB C Auto (Bld)Ordered By: Red Sandoval on 03-29-2025 Immature granulocytes/100 WBC (Bld) 1.100 % High 0.0-0.9 [facility] Comment on above: IG% - Immature Granu locytes (promyelocytes, myelocytes and metamyelocytes) > 1% indicates that a LEFT SHIFT is Present. Laboratory - Hematology and Cell countsOrdered By: Red Sandoval on 03-29-2025 Anisocytosis Ql (Bld) 2+ [facility] MCV (mean corpuscular volume ) determinationOrdered By: Red Sandoval on 03-29-2025 MCV (RBC) [Entitic vol] 84.2 fL 81-99 [facility] Mean corpuscular hemoglobin (MCH) determinationOrdered By: Red Sandoval on 03-29-2025 MCH (RBC) [Entitic mass] 24.3 pg Low 27.0-32.0 [facility] Mean corpuscular hemoglobin concentration (MCHC) determinationOrdered By: Red Sandoval on 03-29-2025 MCHC (RBC) [Mass/Vol] 28.8 g/dL Low 32-36 [facility] Mean platelet volume determi nationOrdered By: Red Sandoval on 03-29-2025 Platelet mean volume (Bld) [Entitic vol] 9.6 fL 6.2-12.0 [facility] Monocyte percentageOrdered B y: Red Sandoval on 03-29-2025 Monocytes/100 WBC (Bld) 7.1 % 0-10 [facility] Neutrophil percentageOrdered By: Red Sandoval on 03-29-2025 Neutrophils/100 WBC (Bld) 72.6 % High 47-70 [facility] Nucleated red blood cell per centageOrdered By: Red Sandoval on 03-29-2025 Nucleated RBC/100 WBC (Bld) [Ratio] 0 % 0-5 [facility] Platelet countOrdered By: Yousuf Sandoval on 03-29-2025 Platelets (Bld) [#/Vol] 263 10*3/uL 150-450 [facility] RBC Auto (Bld) [#/Vol]Ordere d By: Red Sandoval on 03-29-2025 RBC (Bld) [#/Vol] 3.79 10*6/uL Low 4.2-5.4 [facility] White blood cell (WBC) count Ordered By: Red Sandoval on 03-29-2025 WBC (Bld) [#/Vol] 6.3 10*3/uL 4.4-11.0 [facility] Celiac AB,Comprehensiveon ANTIGLIADIN IGA 2 units Normal 0-19 [facility] Comment on above: Result Comment: Nega tive 0 - 19 Weak Positive 20 - 30 Moderate to Strong Positive >30 Performed By: #### L 503.6030, L100.0100, L500.2500, L500.4100, L502.0250, L503.6550 #### [facility] [address] [place], [address] ANTIGLIADIN IGG 2 units Normal 0-19 [facility] Comment on above: Result Comment: Nega tive 0 - 19 Weak Positive 20 - 30 Moderate to Strong Positive >30 Performed By: #### L 503.6030, L100.0100, L500.2500, L500.4100, L502.0250, L503.6550 #### [facility] [address] [place], [place], [id number] ENDOMYSIAL IGA Negative Normal Negative [facility] Comment on above: Performed By: #### L 503.6030, L100.0100, L500.2500, L500.4100, L502.0250, L503.6550 #### [facility] [address] [place], [address] IMMUNOGLOB A QN 57 mg/dL Low 87-352 [facility] Comment on above: Result Comment: Perf ormed at: [facility] [address] [id number] Activity Coordinator: Preston Ashley PhD, Phone: [phone] Performed By: #### L 503.6030, L100.0100, L500.2500, L500.4100, L502.0250, L503.6550 #### [facility] [address] [place], [address] tTG IGA <2 Normal 0-3 [facility] Comment on above: Result Comment: Nega tive 0 - 3 Weak Positive 4 - 10 Positive >10 Tissue Transglutaminase (tTG) has been identified as the endomysial antigen. Studies have demonstr- ated that endomysial IgA antibodies have over 99% specificity for gluten sensitive enteropathy. Performed By: #### L 503.6030, L100.0100, L500.2500, L500.4100, L502.0250, L503.6550 #### [facility] [address] [place], [address] tTG IGG 3 U/mL Normal 0-5 [facility] Comment on above: Result Comment: Nega tive 0 - 5 Weak Positive 6 - 9 Positive >9 Performed By: #### L 503.6030, L100.0100, L500.2500, L500.4100, L502.0250, L503.6550 #### [facility] [address] [place], [place], [address] Folates, (Folic Acid)on 02-14 FOLATES 5.36 ng/mL Normal 4.60-34.80 [facility] Comment on above: Order Comment: ADD O N FROM EARLIER TODAY, THANKS FOLATES AND B12 N Performed By: #### L 503.0106, L506.0250 #### [facility] [address] [place], [place], [address] No Panel InformationOrdered By: Glen Chapman on 03-08-2025 Tissue Transglutaminase IgG Ab 3 U/mL 0-5 [facility] Comment on above: Negative 0 - 5 Weak Positive 6 - 9 Positive >9 Oncology Visit Reporton 02-14 Oncology Visit Report [facility] [address] [place] [address] OFFICE VISIT Date of Service: 03/08/25 08 MR#: [id number] Acct: [id number] Name: HEIDI ANDREWS Rep #: [id number] : 1970 From: Glen Chapman MD Age/Sex: 55/F Location: [facility] Status: Signed HPI Subjective Date of Service 03/08/25 Chief Complaint Referred for Iron deficiency anemia. History of Present Illness 55 y.o.woman presented to PCP with SOB, fatigue, palpitations, she was found to Microcytic anemia with negative stool for occult blood on 03/05/2025. She is referred for management. Feels tired. Colonoscopy in Nov 2022 was negative. 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 Normal [facility] Serum tissue transglutaminas e (tTG) IgA antibody assay (units/volume)Ordered By: Glen Chapman on 03-08-2025 tTG IgA Qn (S) <2 U/mL 0-3 [facility] Comment on above: Negative 0 - 3 Weak Positive 4 - 10 Positive >10 Tissue Transglutaminase (tTG) has been identified as the endomysial antigen. Studies have demonstr- ated that endomysial IgA antibodies have over 99% specificity for gluten sensitive enteropathy. Vitamin B12on 03-08-2025 Cobalamin (Vitamin B12) [Mass/Vol] 184 pg/mL Normal 180-914 [facility] Comment on above: Order Comment: ADD O N FROM EARLIER TODAY, THANKS FOLATES AND B12 Performed By: #### L 503.0106, L506.0250 #### [facility] [address] [place], [address] Vitamin B12 ser/plasOrdered By: Glen Chapman on 03-08-2025 Cobalamin (Vitamin B12) [Mass/Vol] 184 pg/mL 180-914 [facility] Ferritinon 03-05-2025 Ferritin [Mass/Vol] 13 ng/mL Low 22-378 [facility] Comment on above: Order Comment: Order Date: 03/02/25Order Info: [id number] - FEOrder Info: [id number] - FERComments: Low iron Performed By: #### L 503.6030, L100.0100, L500.2500, L500.4100, L502.0250, L503.6550 #### [facility] [address] [place], [address] Ironon 03-05-2025 Iron [Mass/Vol] 33 ug/dL Low 50-170 [facility] Comment on above: Order Comment: Order Date: 03/02/25Order Info: [id number] - FEOrder Info: [id number] - FERComments: Low ironLow Iron Performed By: #### L 503.6030, L100.0100, L500.2500, L500.4100, L502.0250, L503.6550 #### [facility] [address] [place], [address] Iron (Unsp spec) [Mass/Mass] Ordered By: Red Sandoval on 03-05-2025 Iron [Mass/Vol] 33 ug/dL Low 50-170 [facility] Iron measurement (mass/mass) Ordered By: Red Sandoval on 03-05-2025 Iron (Unsp spec) [Mass/Mass] 33 ug/dL Low 50-170 [facility] Serum or plasma ferritin darrel surement (mass/volume)Ordered By: Red Sandoval on 03-05-2025 Ferritin [Mass/Vol] 13 ng/mL Low 22-378 [facility] PROLACTIN 4465on 03-03-2025 PROLACTIN 62.0 ng/mL High 3.6-25.2 [facility] Comment on above: Result Comment: Perf ormed at: [facility] [id number] [place], [place] [id number] Activity Coordinator: Preston Ashley PhD, Phone: [phone] Performed By: #### L 503.6030, L100.0100, L500.2500, L500.4100, L502.0250, L503.6550 #### [facility] [address] [place], [address] Absolute lymphocyte countOrd ered By: Red Sandoval on 03-01-2025 Lymphocytes Auto (Unsp spec) [#/Vol] 0.63 10*3/uL Low 0.83-4.51 [facility] Absolute neutrophil countOrd ered By: Red Sandoval on 03-01-2025 Neutrophils (Bld) [#/Vol] 3.7 10*3/uL 2.0-7.7 [facility] Anion gap in Serum or Plasma Ordered By: Red Sandoval on 03-01-2025 Anion gap [Moles/Vol] 14 mmol/L 5-15 [facility] Automated lymphocyte count a s percentage of total leukocytesOrdered By: Red Sandoval on 03-01-2025 Lymphocytes/100 WBC Auto (Unsp spec) 12.6 % Low 19-41 [facility] BUN/creatinine ratioOrdered By: Red Sandoval on 03-01-2025 Urea nitrogen/Creatinine [Mass ratio] 11.5 mg/mg 10-20 [facility] Basophil percentageOrdered B y: Red Sandoval on 03-01-2025 Basophils/100 WBC (Bld) 0.4 % 0-1 [facility] Bilirubin, totalOrdered By: Red Sandoval on 03-01-2025 Bilirubin [Mass/Vol] 0.57 mg/dL 0.00-1.30 [facility] CBC W/Diff, Automatedon 04- Anisocytosis Ql (Bld) 2+ Normal [facility] Comment on above: Performed By: #### L 503.6030, L100.0100, L500.2500, L500.4100, L502.0250, L503.6550 #### [facility] [address] [place], [address] HYPOCHROMASIA 1+ Normal [facility] Comment on above: Performed By: #### L 503.6030, L100.0100, L500.2500, L500.4100, L502.0250, L503.6550 #### [facility] [address] [place], [address] PLT EST ADEQUATE Normal ADEQ [facility] Comment on above: Performed By: #### L 503.6030, L100.0100, L500.2500, L500.4100, L502.0250, L503.6550 #### [facility] [address] [facility] [place], [address] Calculated very low density lipoprotein (VLDL) cholesterol measurementOrdered By: Red Sandoval on 03-01-2025 Calculated very low density lipoprotein (VLDL) cholesterol measurement 27 mg/dL 5-40 [facility] VLDL Cholesterol 27 mg/dL -40 [facility] Carbon dioxide, total [Moles /volume] in Central venous bloodOrdered By: Red Sandoval on 03-01-2025 CO2 [Moles/Vol] 25.1 mmol/L 21.0-32.0 [facility] Chloride assayOrdered By: Yousuf Sandoval on 03-01-2025 Chloride [Moles/Vol] 99 mmol/L 98-108 [facility] Comprehensive Metabolic Prof ilon 03-01-2025 Albumin [Mass/Vol] 4.2 g/dL Normal 3.5-5.0 [facility] Comment on above: Order Comment: DR.MA BAILEY GETS RESULTS FOR CBCDCMPLIPID ANDPROLACTIN DR. SANDOVAL GETS RESULTS FOR CBCD BMP ANDTROPNIN Performed By: #### L 503.6030, L100.0100, L500.2500, L500.4100, L502.0250, L503.6550 #### [facility] [address] [place], [address] Albumin/Globulin [Mass ratio] 1.6 {ratio} Normal 0.9-2.4 [facility] Comment on above: Order Comment: DR.MA BAILEY GETS RESULTS FOR CBCDCMPLIPID ANDPROLACTIN DR. SANDOVAL GETS RESULTS FOR CBCD BMP ANDTROPNIN Performed By: #### L 503.6030, L100.0100, L500.2500, L500.4100, L502.0250, L503.6550 #### [facility] [address] [place], [address] ALK PHOS 190 U/L High 35-104 [facility] Comment on above: Order Comment: DR.MA BAILEY GETS RESULTS FOR CBCDCMPLIPID ANDPROLACTIN DR. SANDOVAL GETS RESULTS FOR CBCD BMP ANDTROPNIN Performed By: #### L 503.6030, L100.0100, L500.2500, L500.4100, L502.0250, L503.6550 #### [facility] [address] [place], [address] ALT [Catalytic activity/Vol] 67 U/L High <=34 [facility] Comment on above: Order Comment: DR.MA BAILEY GETS RESULTS FOR CBCDCMPLIPID ANDPROLACTIN DR. SANDOVAL GETS RESULTS FOR CBCD BMP ANDTROPNIN Performed By: #### L 503.6030, L100.0100, L500.2500, L500.4100, L502.0250, L503.6550 #### [facility] [address] [place], [address] AST [Catalytic activity/Vol] 86 U/L High <=31 [facility] Comment on above: Order Comment: DR.MA BAILEY GETS RESULTS FOR CBCDCMPLIPID ANDPROLACTIN DR. SANDOVAL GETS RESULTS FOR CBCD BMP ANDTROPNIN Performed By: #### L 503.6030, L100.0100, L500.2500, L500.4100, L502.0250, L503.6550 #### [facility] [address] [place], [address] Bilirubin [Mass/Vol] 0.57 mg/dL Normal 0.00-1.30 [facility] Comment on above: Order Comment: DR.MA BAILEY GETS RESULTS FOR CBCDCMPLIPID ANDPROLACTIN DR. SANDOVAL GETS RESULTS FOR CBCD BMP ANDTROPNIN Performed By: #### L 503.6030, L100.0100, L500.2500, L500.4100, L502.0250, L503.6550 #### [facility] [address] [facility] [address] [place], [address] BUN/CRE 11.5 RATIO Normal 10-20 [facility] Comment on above: Order Comment: DR.MA BAILEY GETS RESULTS FOR CBCDCMPLIPID ANDPROLACTIN DR. SANDOVAL GETS RESULTS FOR CBCD BMP ANDTROPNIN Performed By: #### L 503.6030, L100.0100, L500.2500, L500.4100, L502.0250, L503.6550 #### [facility] [address] [facility] [address] [place], [address] Calcium [Mass/Vol] 8.9 mg/dL Normal 7.6-11.0 [facility] Comment on above: Order Comment: DR.MA BAILEY GETS RESULTS FOR CBCDCMPLIPID ANDPROLACTIN DR. SANDOVAL GETS RESULTS FOR CBCD BMP ANDTROPNIN Performed By: #### L 503.6030, L100.0100, L500.2500, L500.4100, L502.0250, L503.6550 #### [facility] [address] [place], [address] Chloride [Moles/Vol] 99 mmol/L Normal 98-108 [facility] Comment on above: Order Comment: DR.MA BAILEY GETS RESULTS FOR CBCDCMPLIPID ANDPROLACTIN DR. SANDOVAL GETS RESULTS FOR CBCD BMP ANDTROPNIN Performed By: #### L 503.6030, L100.0100, L500.2500, L500.4100, L502.0250, L503.6550 #### [facility] [address] [place], [address] CO2 [Moles/Vol] 25.1 mmol/L Normal 21.0-32.0 [facility] Comment on above: Order Comment: DR.MA BAILEY GETS RESULTS FOR CBCDCMPLIPID ANDPROLACTIN DR. SANDOVAL GETS RESULTS FOR CBCD BMP ANDTROPNIN Performed By: #### L 503.6030, L100.0100, L500.2500, L500.4100, L502.0250, L503.6550 #### [facility] [address] [place], [address] Creatinine [Mass/Vol] 1.04 mg/dL Normal 0.70-1.20 [facility] Comment on above: Order Comment: DR.MA BAILEY GETS RESULTS FOR CBCDCMPLIPID ANDPROLACTIN DR. SANDOVAL GETS RESULTS FOR CBCD BMP ANDTROPNIN Performed By: #### L 503.6030, L100.0100, L500.2500, L500.4100, L502.0250, L503.6550 #### [facility] [address] [place], [address] GAP 14 Normal 5-15 [facility] Comment on above: Order Comment: DR.MA BAILEY GETS RESULTS FOR CBCDCMPLIPID ANDPROLACTIN DR. SANDOVAL GETS RESULTS FOR CBCD BMP ANDTROPNIN Performed By: #### L 503.6030, L100.0100, L500.2500, L500.4100, L502.0250, L503.6550 #### [facility] [address] [place], [address] GFR/1.73 sq M.predicted among non-blacks MDRD (S/P/Bld) [Vol rate/Area] 64 mL/min/{1.73_m2} Normal >60 [facility] Comment on above: Order Comment: DR.MA BAILEY GETS RESULTS FOR CBCDCMPLIPID ANDPROLACTIN DR. SANDOVAL GETS RESULTS FOR CBCD BMP ANDTROPNIN Result Comment: mL/m in/1.73m2 CKD-EPI Creatinine Equation (2020) Performed By: #### L 503.6030, L100.0100, L500.2500, L500.4100, L502.0250, L503.6550 #### [facility] [address] [place], [address] Globulin (S) [Mass/Vol] 2.6 g/dL Normal 2.2-4.2 [facility] Comment on above: Order Comment: DR.MA BAILEY GETS RESULTS FOR CBCDCMPLIPID ANDPROLACTIN DR. SANDOVAL GETS RESULTS FOR CBCD BMP ANDTROPNIN Performed By: #### L 503.6030, L100.0100, L500.2500, L500.4100, L502.0250, L503.6550 #### [facility] [address] [place], [address] Glucose [Mass/Vol] 158 mg/dL High 70-99 [facility] Comment on above: Order Comment: DR.MA BAILEY GETS RESULTS FOR CBCDCMPLIPID ANDPROLACTIN DR. SANDOVAL GETS RESULTS FOR CBCD BMP ANDTROPNIN Performed By: #### L 503.6030, L100.0100, L500.2500, L500.4100, L502.0250, L503.6550 #### [facility] [address] [place], [address] Potassium [Moles/Vol] 4.2 mmol/L Normal 3.3-5.1 [facility] Comment on above: Order Comment: DR.MA BAILEY GETS RESULTS FOR CBCDCMPLIPID ANDPROLACTIN DR. SANDOVAL GETS RESULTS FOR CBCD BMP ANDTROPNIN Performed By: #### L 503.6030, L100.0100, L500.2500, L500.4100, L502.0250, L503.6550 #### [facility] [address] [place], [address] Sodium [Moles/Vol] 138 mmol/L Normal 133-145 [facility] Comment on above: Order Comment: DR.MA BIALEY GETS RESULTS FOR CBCDCMPLIPID ANDPROLACTIN DR. SANDOVAL GETS RESULTS FOR CBCD BMP ANDTROPNIN Performed By: #### L 503.6030, L100.0100, L500.2500, L500.4100, L502.0250, L503.6550 #### [facility] [address] [facility] [place], [address] T PROT 6.8 g/dL Normal 5.9-8.4 [facility] Comment on above: Order Comment: DR.MA BAILEY GETS RESULTS FOR CBCDCMPLIPID ANDPROLACTIN DR. SANDOVAL GETS RESULTS FOR CBCD BMP ANDTROPNIN Performed By: #### L 503.6030, L100.0100, L500.2500, L500.4100, L502.0250, L503.6550 #### [facility] [address] [facility] [place], [address] Urea nitrogen [Mass/Vol] 12 mg/dL Normal 4-19 [facility] Comment on above: Order Comment: DR.MA BAILEY GETS RESULTS FOR CBCDCMPLIPID ANDPROLACTIN DR. SANDOVAL GETS RESULTS FOR CBCD BMP ANDTROPNIN Performed By: #### L 503.6030, L100.0100, L500.2500, L500.4100, L502.0250, L503.6550 #### [facility] [address] [place], [address] Eosinophil percentageOrdered By: Red Sandoval on 03-01-2025 Eosinophils/100 WBC (Bld) 4.0 % 0-5 [facility] Erythrocyte distribution wid th (RBC) [Ratio]Ordered By: Red Sandoval on 03-01-2025 Erythrocyte distribution width (RBC) [Entitic vol] 55.5 fL High 35.1-43.9 [facility] Erythrocyte distribution wid th ratioOrdered By: Red Sandoval on 03-01-2025 Erythrocyte distribution width (RBC) [Ratio] 20.9 % High 11.6-14.6 [facility] Erythrocyte distribution wid th standard deviationOrdered By: Red Sandoval on 03-01-2025 Erythrocyte distribution width (RBC) [Ratio] 55.5 fl High 35.1-43.9 [facility] GFR/1.73 sq M.predicted sonny g non-blacks MDRD (S/P/Bld) [Vol rate/Area]Ordered By: Red Sandoval on 03-01-2025 Estimated GFR (MDRD) Non-Af Amer 64 >60 [facility] Comment on above: mL/min/1.73m2 CKD-EP I Creatinine Equation (2020) Glomerular filtration rate ( GFR) estimation/1.73 sq m using serum, plasma, or whole bOrdered By: Red Sandoval on 03-01-2025 GFR/1.73 sq M.predicted among non-blacks MDRD (S/P/Bld) [Vol rate/Area] 64 mL/min/{1.73_m2} >60 [facility] Comment on above: mL/min/1.73m2 CKD-EP I Creatinine Equation (2020) Hematocrit Auto (Bld) [Volum e fraction]Ordered By: Rde Sandoval on 03-01-2025 Hematocrit (Bld) [Volume fraction] 26.7 % Low 37-47 [facility] Hemoglobin A1con 03-01-2025 HbA1c (Bld) [Mass fraction] 7.6 % High <=5.6 [facility] Comment on above: Result Comment: Norm al < 5.7 % Prediabetic 5.7 - 6.4 % Diabetic >or= 6.5 % Please note range changes. Performed By: #### L 503.6030, L100.0100, L500.2500, L500.4100, L502.0250, L503.6550 #### [facility] [address] [place], [address] Hemoglobin A1c percentageOrd ered By: Red Sandoval on 03-01-2025 HbA1c (Bld) [Mass fraction] 7.6 % High <5.7 [facility] Comment on above: Normal < 5.7 % Predi abetic 5.7 - 6.4 % Diabetic >or= 6.5 % Please note range changes. Hemoglobin measurementOrdere d By: Red Sandoval on 03-01-2025 Hemoglobin (Bld) [Mass/Vol] 7.2 g/dL Low 12.0-15.0 [facility] Hypochromatic red blood cell detectionOrdered By: Red Sandoval on 03-01-2025 Hypochromia Ql (Bld) 1+ [facility] Hypochromia Ql (Bld)Ordered By: Red Sandoval on 03-01-2025 Hypochromasia 1+ [facility] Immature granulocytes/100 WB C Auto (Bld)Ordered By: Red Sandoval on 03-01-2025 Immature granulocytes/100 WBC (Bld) 1.200 % High 0.0-0.9 [facility] Comment on above: IG% - Immature Granu locytes (promyelocytes, myelocytes and metamyelocytes) > 1% indicates that a LEFT SHIFT is Present. L501.4021on 03-01-2025 Trop T High Sen 14 ng/L Normal <=14 [facility] Comment on above: Order Comment: DR.MA BAILEY GETS RESULTS FOR CBCDCMPLIPID ANDPROLACTIN DR. SANDOVAL GETS RESULTS FOR CBCD BMP ANDTROPNIN Performed By: #### L 503.6030, L100.0100, L500.2500, L500.4100, L502.0250, L503.6550 #### [facility] [address] [place], [address] LDL calc ser/plasOrdered By: Red Sandoval on 03-01-2025 Cholesterol in LDL [Mass/Vol] 117 mg/dL [facility] Comment on above: Sfmncnawxa=482-613 m g/dL & Higher Uffd=806 mg/dL or greater LDL Cholesterol, Calculated 117 mg/dL [facility] Comment on above: Mroiekmwbz=213-351 m g/dL & Higher Orti=090 mg/dL or greater Laboratory - Chemistry and C hemistry - challengeOrdered By: Red Sandoval on 03-01-2025 AST [Catalytic activity/Vol] 86 U/L High <32 [facility] - Hematology and Cell countsOrdered By: Red Sandoval on 03-01-2025 Anisocytosis Ql (Bld) 2+ [facility] Lipid Profileon 03-01-2025 CHOL:HDL 3.89 Normal [facility] Comment on above: Order Comment: DR.MA BAILEY GETS RESULTS FOR CBCDCMPLIPID ANDPROLACTIN DR. SANDOVAL GETS RESULTS FOR CBCD BMP ANDTROPNIN Performed By: #### L 503.6030, L100.0100, L500.2500, L500.4100, L502.0250, L503.6550 #### [facility] [address] [place], [address] Cholesterol [Mass/Vol] 194 mg/dL Normal <=200 [facility] Comment on above: Order Comment: DR.MA BAILEY GETS RESULTS FOR CBCDCMPLIPID ANDPROLACTIN DR. SANDOVAL GETS RESULTS FOR CBCD BMP ANDTROPNIN Result Comment: Chol esterol level, Desirable <200 mg/dL Borderline high cholesterol 200-239 mg/dL High cholesterol >=240 mg/dL Recommendations of the NCEP Adult Treatment Panel for the following risk-cutoff thresholds for the [place] population. Performed By: #### L 503.6030, L100.0100, L500.2500, L500.4100, L502.0250, L503.6550 #### [facility] [address] [place], [address] Cholesterol in HDL [Mass/Vol] 50 mg/dL Normal [facility] Comment on above: Order Comment: [...] sex and age. Performed By: #### L 503.6030, L100.0100, L500.2500, L500.4100, L502.0250, L503.6550 #### [facility] [address] [place], [address] Cholesterol in LDL [Mass/Vol] 117 mg/dL Normal [facility] Comment on above: Order Comment: DR.MA BAILEY GETS RESULTS FOR CBCDCMPLIPID ANDPROLACTIN DR. SANDOVAL GETS RESULTS FOR CBCD BMP ANDTROPNIN Result Comment: Bord qvelpj=715-911 mg/dL Higher Lalt=246 mg/dL or greater Performed By: #### L 503.6030, L100.0100, L500.2500, L500.4100, L502.0250, L503.6550 #### [facility] [address] [place], [address] Cholesterol in VLDL [Mass/Vol] 27 mg/dL Normal 5-40 [facility] Comment on above: Order Comment: DR.MA BAILEY GETS RESULTS FOR CBCDCMPLIPID ANDPROLACTIN DR. SANDOVAL GETS RESULTS FOR CBCD BMP ANDTROPNIN Performed By: #### L 503.6030, L100.0100, L500.2500, L500.4100, L502.0250, L503.6550 #### [facility] [address] [place], [address] Triglyceride [Mass/Vol] 134 mg/dL Normal [facility] Comment on above: Order Comment: DR.MA BAILEY GETS RESULTS FOR CBCDCMPLIPID ANDPROLACTIN DR. SANDOVAL GETS RESULTS FOR CBCD BMP ANDTROPNIN Result Comment: The drugs N-Acetylcysteine and Metamizole may falsely depress this assay. Normal range: <150 mg/dL Borderline High: 150-199 mg/dL High: 200-499 mg/dL Very High: >500 mg/dL Performed By: #### L 503.6030, L100.0100, L500.2500, L500.4100, L502.0250, L503.6550 #### [facility] [address] [place], [address] Lymphocytes Auto (Unsp spec) [#/Vol]Ordered By: Red Sandoval on 03-01-2025 Lymphocytes (Bld) [#/Vol] 0.63 10*3/uL Low 0.83-4.51 [facility] Lymphocytes/100 WBC Auto (Un sp spec)Ordered By: Red aSndoval on 03-01-2025 Lymphocytes/100 WBC (Bld) 12.6 % Low 19-41 [facility] MCV (mean corpuscular volume ) determinationOrdered By: Red Sandoval on 03-01-2025 MCV (RBC) [Entitic vol] 75.4 fL Low 81-99 [facility] Mean corpuscular hemoglobin (MCH) determinationOrdered By: Red Sandoval on 03-01-2025 MCH (RBC) [Entitic mass] 20.3 pg Low 27.0-32.0 [facility] Mean corpuscular hemoglobin concentration (MCHC) determinationOrdered By: Red Sandoval on 03-01-2025 MCHC (RBC) [Mass/Vol] 27.0 g/dL Low 32-36 [facility] Mean platelet volume determi nationOrdered By: Red Sandoval on 03-01-2025 Platelet mean volume (Bld) [Entitic vol] 10.5 fL 6.2-12.0 [facility] Monocyte percentageOrdered B y: Red Sandoval on 03-01-2025 Monocytes/100 WBC (Bld) 8.0 % 0-10 [facility] Neutrophil percentageOrdered By: Red Sandoval on 03-01-2025 Neutrophils/100 WBC (Bld) 73.8 % High 47-70 [facility] Nucleated red blood cell per centageOrdered By: Red Sandoval on 03-01-2025 Nucleated RBC/100 WBC (Bld) [Ratio] 0 % 0-5 [facility] Platelet countOrdered By: Yousuf Sandoval on 03-01-2025 Platelet Count See comment 150-450 [facility] Comment on above: Please note: For thi [...] 03-01-2025 Platelets LM Ql (Bld) ADEQUATE ADEQ [facility] Platelets LM Ql (Bld)Ordered By: Red Sandoval on 03-01-2025 Platelet Estimate ADEQUATE ADEQ [facility] Potassium (Unsp spec) [Mass/ Vol]Ordered By: Red Sandoval on 03-01-2025 Potassium [Moles/Vol] 4.2 mmol/L 3.3-5.1 [facility] Potassium measurement (mass/ volume)Ordered By: Red Sandoval on 03-01-2025 Potassium (Unsp spec) [Mass/Vol] 4.2 mmol/L 3.3-5.1 [facility] Prolactin [Mass/Vol]Ordered By: Red Sandoval on 03-01-2025 Prolactin 62.0 ng/mL High 3.6-25.2 [facility] Comment on above: Performed at: [address] Director: Preston Ashley PhD, Phone: [phone] RBC Auto (Bld) [#/Vol]Ordere d By: Red Sandoval on 03-01-2025 RBC (Bld) [#/Vol] 3.54 10*6/uL Low 4.2-5.4 [facility] Screening total cholesterol/ high density lipoprotein (HDL) cholesterol ratioOrdered By: Red Sandoval on 03-01-2025 Cholesterol.total/Choles terol in HDL [Mass ratio] 3.89 {ratio} [facility] Serum creatinine measurement (mass/volume)Ordered By: Red Sandoval on 03-01-2025 Creatinine [Mass/Vol] 1.04 mg/dL 0.70-1.20 [facility] Serum globulin measurementOr dered By: Red Sandoval on 03-01-2025 Globulin (S) [Mass/Vol] 2.6 g/dL 2.2-4.2 [facility] Serum glucose measurement (m ass/volume)Ordered By: Red Sandoval on 03-01-2025 Glucose [Mass/Vol] 158 mg/dL High 70-99 [facility] Serum or plasma alanine cueto otransferase (ALT) measurementOrdered By: Red Sandoval on 03-01-2025 ALT [Catalytic activity/Vol] 67 U/L High <35 [facility] Serum or plasma albumin sandy urement (mass/volume)Ordered By: Red Sandoval on 03-01-2025 Albumin [Mass/Vol] 4.2 g/dL 3.5-5.0 [facility] Serum or plasma albumin/glob ulin mass ratioOrdered By: Red Sandoval on 03-01-2025 Albumin/Globulin [Mass ratio] 1.6 {ratio} 0.9-2.4 [facility] Serum or plasma alkaline rebecca sphatase measurementOrdered By: Red Sandoval on 03-01-2025 ALP [Catalytic activity/Vol] 190 U/L High 35-104 [facility] Serum or plasma calcium sandy urement (mass/volume)Ordered By: Red Sandoval on 03-01-2025 Calcium [Mass/Vol] 8.9 mg/dL 7.6-11.0 [facility] Serum or plasma cholesterol in HDL measurement (mass/volume)Ordered By: Red Sandoval on 03-01-2025 Cholesterol in HDL [Mass/Vol] 50 mg/dL >40 [facility] Comment on above: National Cholesterol Education Program (NCEP) guidelines:<40 mg/dL: Low HDL-cholesterol (major risk factor for CHD)>= 60 mg/dL: High HDL-cholesterol (negative risk factor for CHD)HDL-cholesterol is affected by a number of factors, e.g. smoking, exercise, hormones, sex and age. Serum or plasma cholesterol measurement (mass/volume)Ordered By: Red Sandoval on 03-01-2025 Cholesterol [Mass/Vol] 194 mg/dL <201 [facility] Comment on above: Cholesterol level, D esirable <200 mg/dLBorderline high cholesterol 200-239 mg/dLHigh cholesterol >=240 mg/dLRecommendations of the NCEP Adult Treatment Panel for the following risk-cutoff thresholds for the [place] population. Serum or plasma prolactin me asurement (mass/volume)Ordered By: Red Sandoval on 03-01-2025 Prolactin [Mass/Vol] 62.0 ng/mL High 3.6-25.2 [facility] Comment on above: Performed at: [address] [id number] Director: Preston Ashley PhD, Phone: [phone] Serum or plasma urea nitroge n measurement (mass/volume)Ordered By: Red Sandoval on 03-01-2025 Urea nitrogen [Mass/Vol] 12 mg/dL 4-19 [facility] Sodium levelOrdered By: Red Sandoval on 03-01-2025 Sodium [Moles/Vol] 138 mmol/L 133-145 [facility] Total proteinOrdered By: Senait Sandoval on 03-01-2025 Protein [Mass/Vol] 6.8 g/dL 5.9-8.4 [facility] Triglycerides measurementOrd ered By: Red Sandoval on 03-01-2025 Triglyceride [Mass/Vol] 134 mg/dL <199 [facility] Comment on above: The drugs N-Acetylcy steine and Metamizole may falsely depress this assay. Normal range: <150 mg/dLBorderline High: 150-199 mg/dLHigh: 200-499 mg/dLVery High: >500 mg/dL Troponin T.cardiac High sens itivity method [Mass/Vol]Ordered By: Red Sandoval on 03-01-2025 Troponin T High Sensitivity 14 ng/L <14 [facility] Troponin T.cardiac [Mass/vol ume] in Serum or Plasma by High sensitivity methodOrdered By: Red Sandoval on 03-01-2025 Troponin T.cardiac High sensitivity method [Mass/Vol] 14 ng/L <14 [facility] White blood cell (WBC) count Ordered By: Red Sandoval on 03-01-2025 WBC (Bld) [#/Vol] 5.0 10*3/uL 4.4-11.0 [facility] Urgent Care Visit Reporton 1 12-08-2023 Urgent Care Visit Report [facility] [address] , [address] [place] [address] OFFICE VISIT Date of Service: 10/08/24 MR#: [id number] Acct: [id number] Name: HEIDI ANDREWS Rep #: [id number] : 1970 Provider: DELILAH hansen Age/Sex: 54/F Location: [facility] Status: Signed Intake Vital Signs 12/01/22 09:27 [...] 1 tab PO DAILY 11/10/22 10/08/24 History mg-hydrochlorothiazid e 12.5 mg tablet (Diovan HCT) azithromycin 250 mg tablet See Rx Instructions PO .COMPLEX #6 10/08/24 10/08/24 Rx (Zithromax Z-Navneet) tabs methylprednisolone 4 mg tablets in See Rx Instructions PO PER PKG DIR 10/08/24 10/08/24 Rx a dose pack (Medrol (Navneet)) #21 tabs PFSH Medical History (Updated 10/08/24 @ 08:54 by Enrique Hwang GREENSKEEPER SUPERVISOR, GREENSKEEPER SUPERVISOR-C) Wears glasses Thyroid disease Diabetes Anemia Former [...] change in bowel habits or difficulty swallowing Genitourinary-Female: No burning urination or urinary frequency Musc [...] moist mu (more content not included)... Normal [facility] Cervical or vagninal specime n microscopic examination by cytology stain (reported asOrdered By: Patricia Thompson on 02-07-2024 Cytology report Cyto stain Doc (Cvx/Vag) Comment . [facility] Comment on above: The Pap smear is [...] DNA Probe+sig amp Ql (Cvx) Negative Negative [facility] Comment on above: This nucleic acid am plification test detects fourteen high-risk HPV types (16,18,31,33,35,39,45,51,52,56,58,59,66,68)without differentiation.Performed at: [address] [id number] Director: Cierra Chew MD, Phone: [phone] at: =[address] [id number] Director: Cierra Chew MD, Phone: [phone] Laboratory - CytologyOrdered By: Patricia Thompson on 02-07-2024 Rn Transplant Cyto stain Nom (Cvx/Vag) [ID] Comment . [facility] Comment on above: Pema Kincaid, Cyto technologist (ASCP) Laboratory - Miscellaneous t estsOrdered By: Patricia Thompson on 02-07-2024 Service comment (Unsp spec) [Interp] . . [facility] Thin prep Papanicolaou smear with manual screeningOrdered By: Patricia Thompson on 02-07-2024 Thin prep Papanicolaou smear with manual screening Comment . [facility] Comment on above: NEGATIVE FOR INTRAEP ITHELIAL LESION OR MALIGNANCY. This liquid based Th inPrep(R) pap test was screened withthe use of an image guided system. Basophil percentageOrdered B y: Red Sandoval on 01-19-2024 Chloride [Moles/Vol] 104 mmol/L 98-107 [facility] Cholesterol [Mass/Vol] 197 mg/dL <200 [facility] Comment on above: <200 mg/dL Desirable 200-240 mg/dL Borderline >240 mg/dL High Risk Glucose [Mass/Vol] 108 mg/dL 74-106 [facility] Comment on above: Fasting Glucose resu lt from 100 to 125 mg/dL suggests IMPAIRED HOMEOSTASIS per A.D.A. criteria. Potassium [Moles/Vol] 4.2 mmol/L 3.5-5.1 [facility] Sodium [Moles/Vol] 136 mmol/L 136-145 [facility] Triglyceride [Mass/Vol] 132 mg/dL <199 [facility] Comment on above: The drugs N-Acetylcy steine and Metamizole may falsely depress this assay.Serum Triglycerides Reference Interval Normal <150 mg/dL Borderline high 150 - 199 mg/dL High 200 - 499 mg/dL Very High > or = 500 mg/dL Laboratory - Chemistry and C hemistry - challengeOrdered By: Red Sandoval on 01-19-2024 Cholesterol in HDL [Mass/Vol] 43 mg/dL >40 [facility] Comment on above: The drugs N-Acetylcy steine and Metamizole may falsely depress this assay. Reference Range HDL <40 mg/dL Low HDL Cholesterol HDL >or= 60 mg/dL High HDL Cholesterol Cholesterol in LDL [Mass/Vol] 128 mg/dL 0-130 [facility] CO2 [Moles/Vol] 27.0 mmol/L 21.0-32.0 [facility] Urea nitrogen/Creatinine [Mass ratio] 10.7 mg/mg 10-20 [facility] No Panel InformationOrdered By: Red Sandoval on 01-19-2024 Estimated GFR (MDRD) Amer 81 mL/min >60 [facility] Comment on above: GFR Calc Estimated GFR (MDRD) Non-Af Amer 67 mL/min >60 [facility] Comment on above: Non- GFR Calc Free Triiodothyronine (T3) pg/dL 2.0 pg/mL 2.18-3.98 [facility] VLDL Cholesterol 26 mg/dL 5-40 [facility] Serum or plasma calcium sandy urement (mass/volume)Ordered By: Red Sandoval on 01-19-2024 Calcium [Mass/Vol] 8.9 mg/dL 8.5-10.1 [facility] Serum or plasma creatinine m easurement (mass/volume)Ordered By: Red Sandoval on 01-19-2024 Creatinine [Mass/Vol] 0.93 mg/dL 0.55-1.02 [facility] Comment on above: The validity of the calculated GFR & GFRAA in patients over 70 years has not been determined. Clinical correlation is essential. Serum or plasma thyroid stim ulating hormone (TSH) measurement (units/volume)Ordered By: Red Sandoval on 01-19-2024 TSH Qn 2.60 uIU/mL 0.358-3.74 [facility] Serum or plasma urea nitroge n measurement (mass/volume)Ordered By: Red Sandoval on 01-19-2024 Urea nitrogen [Mass/Vol] 10 mg/dL 7-18 [facility] Thin prep Papanicolaou smear with manual screeningOrdered By: Red Sandoval on 01-19-2024 Thin prep Papanicolaou smear with manual screening 5 5-15 [facility] Thin prep Papanicolaou smear with manual screening 1.33 ng/dL 0.76-1.46 [facility] Basophil percentageOrdered B y: Red Sandoval on 07-26-2023 Chloride [Moles/Vol] 104 mmol/L 98-107 [facility] Cholesterol [Mass/Vol] 186 mg/dL <200 [facility] Comment on above: <200 mg/dL Desirable 200-240 mg/dL Borderline >240 mg/dL High Risk Glucose [Mass/Vol] 121 mg/dL 74-106 [facility] Comment on above: Fasting Glucose resu lt from 100 to 125 mg/dL suggests IMPAIRED HOMEOSTASIS per A.D.A. criteria. Potassium [Moles/Vol] 3.8 mmol/L 3.5-5.1 [facility] Sodium [Moles/Vol] 139 mmol/L 136-145 [facility] Triglyceride [Mass/Vol] 198 mg/dL <199 [facility] Comment on above: The drugs N-Acetylcy steine and Metamizole may falsely depress this assay.Serum Triglycerides Reference Interval Normal <150 mg/dL Borderline high 150 - 199 mg/dL High 200 - 499 mg/dL Very High > or = 500 mg/dL Laboratory - Chemistry and C hemistry - challengeOrdered By: Red Sandoval on 07-26-2023 CO2 [Moles/Vol] 27.0 mmol/L 21.0-32.0 [facility] Urea nitrogen/Creatinine [Mass ratio] 10.4 mg/mg 10-20 [facility] No Panel InformationOrdered By: Red Sandoval on 07-26-2023 Estimated GFR (MDRD) Amer 79 mL/min >60 [facility] Comment on above: GFR Calc Estimated GFR (MDRD) Non-Af Amer 65 mL/min >60 [facility] Comment on above: Non- GFR Calc Thyroid Stimulating Hormone (TSH) 1.67 uIU/mL 0.358-3.74 [facility] Serum or plasma calcium sandy urement (mass/volume)Ordered By: Red Sandoval on 07-26-2023 Calcium [Mass/Vol] 8.8 mg/dL 8.5-10.1 [facility] Serum or plasma cholesterol in HDL measurement (mass/volume)Ordered By: Red Sandoval on 07-26-2023 Cholesterol in HDL [Mass/Vol] 36 mg/dL >40 [facility] Comment on above: The drugs N-Acetylcy steine and Metamizole may falsely depress this assay. Reference Range HDL <40 mg/dL Low HDL Cholesterol HDL >or= 60 mg/dL High HDL Cholesterol Serum or plasma cholesterol in VLDL measurement (mass/volume)Ordered By: Red Sandoval on 07-26-2023 Cholesterol in VLDL [Mass/Vol] 40 mg/dL 5-40 [facility] Serum or plasma creatinine m easurement (mass/volume)Ordered By: Red Sandoval on 07-26-2023 Creatinine [Mass/Vol] 0.96 mg/dL 0.55-1.02 [facility] Comment on above: The validity of the calculated GFR & GFRAA in patients over 70 years has not been determined. Clinical correlation is essential. Serum or plasma low density lipoprotein (LDL) cholesterol measurement (mass/volume)Ordered By: Red Sandoval on 07-26-2023 Cholesterol in LDL [Mass/Vol] 110 mg/dL 0-130 [facility] Serum or plasma urea nitroge n measurement (mass/volume)Ordered By: Red Sandoval on 07-26-2023 Urea nitrogen [Mass/Vol] 10 mg/dL 7-18 [facility] Thin prep Papanicolaou smear with manual screeningOrdered By: Red Sandoval on 07-26-2023 Thin prep Papanicolaou smear with manual screening 8 5-15 [facility] Whole blood hemoglobin A1c/t otal hemoglobin ratio (mass fraction)Ordered By: Red Sandoval on 07-26-2023 HbA1c (Bld) [Mass fraction] 5.6 % 3.8-5.6 [facility] Comment on above: Normal < 5.7 % Predi abetic 5.7 - 6.4 % Diabetic >or= 6.5 % Please note range changes. Basophil percentageOrdered B y: Dr. Sandoval on 01-25-2023 Chloride [Moles/Vol] 105 mmol/L 98-107 [facility] Cholesterol [Mass/Vol] 194 mg/dL <200 [facility] Comment on above: <200 mg/dL Desirable 200-240 mg/dL Borderline >240 mg/dL High Risk Glucose [Mass/Vol] 123 mg/dL 74-106 [facility] Comment on above: Fasting Glucose resu lt from 100 to 125 mg/dL suggests IMPAIRED HOMEOSTASIS per A.D.A. criteria. Potassium [Moles/Vol] 3.6 mmol/L 3.5-5.1 [facility] Sodium [Moles/Vol] 140 mmol/L 136-145 [facility] Triglyceride [Mass/Vol] 166 mg/dL <199 [facility] Comment on above: The drugs N-Acetylcy steine and Metamizole may falsely depress this assay.Serum Triglycerides Reference Interval Normal <150 mg/dL Borderline high 150 - 199 mg/dL High 200 - 499 mg/dL Very High > or = 500 mg/dL Laboratory - Chemistry and C hemistry - challengeOrdered By: Dr. Sandoval on 01-25-2023 CO2 [Moles/Vol] 25.0 mmol/L 21.0-32.0 [facility] Free T4 [Mass/Vol] 1.31 ng/dL 0.76-1.46 [facility] Urea nitrogen/Creatinine [Mass ratio] 12.0 mg/mg 10-20 [facility] No Panel InformationOrdered By: Dr. Sandoval on 01-25-2023 Estimated GFR (MDRD) Amer 58 mL/min >60 [facility] Comment on above: GFR Calc Estimated GFR (MDRD) Non-Af Amer 48 mL/min >60 [facility] Comment on above: Non- GFR Calc Free Triiodothyronine (T3) pg/dL 1.5 pg/mL 2.18-3.98 [facility] Thyroid Stimulating Hormone (TSH) 1.52 uIU/mL 0.358-3.74 [facility] Serum or plasma calcium sandy urement (mass/volume)Ordered By: Dr. Sandoval on 01-25-2023 Calcium [Mass/Vol] 9.5 mg/dL 8.5-10.1 [facility] Serum or plasma cholesterol in HDL measurement (mass/volume)Ordered By: Dr. Sandoval on 01-25-2023 Cholesterol in HDL [Mass/Vol] 39 mg/dL >40 [facility] Comment on above: The drugs N-Acetylcy steine and Metamizole may falsely depress this assay. Reference Range HDL <40 mg/dL Low HDL Cholesterol HDL >or= 60 mg/dL High HDL Cholesterol Serum or plasma cholesterol in VLDL measurement (mass/volume)Ordered By: Dr. Sandoval on 01-25-2023 Cholesterol in VLDL [Mass/Vol] 33 mg/dL 5-40 [facility] Serum or plasma creatinine m easurement (mass/volume)Ordered By: Dr. Sandoval on 01-25-2023 Creatinine [Mass/Vol] 1.25 mg/dL 0.55-1.02 [facility] Comment on above: The validity of the calculated GFR & GFRAA in patients over 70 years has not been determined. Clinical correlation is essential. Serum or plasma low density lipoprotein (LDL) cholesterol measurement (mass/volume)Ordered By: Dr. Sandoval on 01-25-2023 Cholesterol in LDL [Mass/Vol] 122 mg/dL 0-130 [facility] Serum or plasma urea nitroge n measurement (mass/volume)Ordered By: Dr. Sandoval on 01-25-2023 Urea nitrogen [Mass/Vol] 15 mg/dL 7-18 [facility] Thin prep Papanicolaou smear with manual screeningOrdered By: Dr. Sandoval on 01-25-2023 Thin prep Papanicolaou smear with manual screening 10 5-15 [facility] Glucose Glucometer (BldC) [M ass/Vol]Ordered By: Dr. Marie on 12-01-2022 Glucose [Mass/Vol] 147 mg/dL 74-106 [facility] Comment on above: MANAGEMENT OF PATIEN T CARE PER NURSING PROTOCOL Basophil percentageon 2021 Chloride [Moles/Vol] 107 mmol/L 98-107 [facility] Work Phone: Cholesterol [Mass/Vol] 175 mg/dL <200 [facility] Work Phone: Comment on above: <200 mg/dL Desirable 200-240 mg/dL Borderline >240 mg/dL High Risk Glucose [Mass/Vol] 117 mg/dL 74-106 [facility] Work Phone: Comment on above: Fasting Glucose resu lt from 100 to 125 mg/dL suggests IMPAIRED HOMEOSTASIS per A.D.A. criteria. Potassium [Moles/Vol] 4.0 mmol/L 3.5-5.1 [facility] Work Phone: Sodium [Moles/Vol] 140 mmol/L 136-145 [facility] Work Phone: Triglyceride [Mass/Vol] 141 mg/dL <199 [facility] Work Phone: [phone] Comment on above: The drugs N-Acetylcy steine and Metamizole may falsely depress this assay.Serum Triglycerides Reference Interval Normal <150 mg/dL Borderline high 150 - 199 mg/dL High 200 - 499 mg/dL Very High > or = 500 mg/dL Laboratory - Chemistry and C hemistry - challengeon 07-27-2022 CO2 [Moles/Vol] 23.0 mmol/L 21.0-32.0 [facility] Work Phone: [phone] T4 [Mass/Vol] 1.26 ng/dL 0.76-1.46 [facility] Work Phone: [phone] Urea nitrogen/Creatinine [Mass ratio] 9.6 mg/mg 10-20 [facility] Work Phone: [phone] Panel Informationon 07-27 Estimated GFR (MDRD) Amer 72 mL/min >60 [facility] Work Phone: [phone] Comment on above: GFR Calc Estimated GFR (MDRD) Non-Af Amer 60 mL/min >60 [facility] Work Phone: Comment on above: Non- GFR Calc Free Triiodothyronine (T3) pg/dL 2.0 pg/mL 2.18-3.98 [facility] Work Phone: [phone] Thyroid Stimulating Hormone (TSH) 1.24 uIU/mL 0.358-3.74 [facility] Work Phone: [phone] Serum or plasma calcium sandy urement (mass/volume)on 07-27-2022 Calcium [Mass/Vol] 9.1 mg/dL 8.5-10.1 [facility] Work Phone: [phone] Serum or plasma cholesterol in HDL measurement (mass/volume)on 07-27-2022 Cholesterol in HDL [Mass/Vol] 41 mg/dL >40 [facility] Work Phone: [phone] Comment on above: The drugs N-Acetylcy steine and Metamizole may falsely depress this assay. Reference Range HDL <40 mg/dL Low HDL Cholesterol HDL >or= 60 mg/dL High HDL Cholesterol Serum or plasma cholesterol in VLDL measurement (mass/volume)on 07-27-2022 Cholesterol in VLDL [Mass/Vol] 28 mg/dL 5-40 [facility] Work Phone: [phone] Serum or plasma creatinine m easurement (mass/volume)on 07-27-2022 Creatinine [Mass/Vol] 1.04 mg/dL 0.55-1.02 [facility] Work Phone: Comment on above: The validity of the calculated GFR & GFRAA in patients over 70 years has not been determined. Clinical correlation is essential. Serum or plasma low density lipoprotein (LDL) cholesterol measurement (mass/volume)on 07-27-2022 Cholesterol in LDL [Mass/Vol] 106 mg/dL 0-130 [facility] Work Phone: Serum or plasma urea nitroge n measurement (mass/volume)on 07-27-2022 Urea nitrogen [Mass/Vol] 10 mg/dL 7-18 [facility] Work Phone: Thin prep Papanicolaou smear with manual screeningon 07-27-2022 Thin prep Papanicolaou smear with manual screening 10 5-15 [facility] Work Phone: Culture, urineon 04-22-2022 Bacteria identified Cx Nom (U) Escherichia coli [facility] Work Phone: Basophil percentageon 2021 Basophil percentage 5-10 SEEN /hpf [facility] Work Phone: [phone] Chloride [Moles/Vol] 104 mmol/L 98-[address] [facility] Work Phone: [phone] Cholesterol [Mass/Vol] 194 mg/dL <200 [facility] Work Phone: Comment on above: <200 mg/dL Desirable 200-240 mg/dL Borderline >240 mg/dL High Risk Glucose [Mass/Vol] 105 mg/dL 74-106 [facility] [facility] Work Phone: Comment on above: Fasting Glucose resu lt from 100 to 125 mg/dL suggests IMPAIRED HOMEOSTASIS per A.D.A. criteria. Potassium [Moles/Vol] 4.3 mmol/L 3.5-5.1 [facility] Work Phone: [phone] Sodium [Moles/Vol] 137 mmol/L 136-145 [facility] Work Phone: [phone] Triglyceride [Mass/Vol] 191 mg/dL [facility] Work Phone: [phone] Comment on above: The drugs N-Acetylcy steine and Metamizole may falsely depress this assay.Serum Triglycerides Reference Interval Normal <150 mg/dL Borderline high 150 - 199 mg/dL High 200 - 499 mg/dL Very High > or = 500 mg/dL Bilirubin Test strip Ql (U)o n 01-26-2022 Bilirubin Ql (U) Negative Negative [facility] Work Phone: [phone] Ketones Test strip Ql (U)on 01-26-2022 Ketones Ql (U) Negative Negative [facility] Work Phone: [phone] Laboratory - Chemistry and C hemistry - challengeon 01-26-2022 CO2 [Moles/Vol] 24.0 mmol/L 21.0-32.0 [facility] Work Phone: [phone] Free T4 [Mass/Vol] 1.36 ng/dL 0.76-1.46 [facility] Work Phone: [phone] Urea nitrogen/Creatinine [Mass ratio] 13.0 mg/mg 10-20 [facility] Work Phone: [phone] Mucus LM Ql (Urine sed)on Mucus Ql (Urine sed) 0 SEEN /hpf [facility] Work Phone: [phone] Nitrite Test strip Ql (U)on 01-26-2022 Nitrite Ql (U) Negative Negative [facility] Work Phone: [phone] Panel Informationon 01-26 Estimated GFR (MDRD) Amer 59 mL/min >60 [facility] Work Phone: Comment on above: GFR Calc Estimated GFR (MDRD) Non-Af Amer 49 mL/min >60 [facility] Work Phone: [phone] Comment on above: Non- GFR Calc Free Triiodothyronine (T3) pg/dL 1.7 pg/mL 2.18-3.98 [facility] Work Phone: Thyroid Stimulating Hormone (TSH) 3.39 uIU/mL 0.358-3.74 [facility] Work Phone: Protein Test strip Ql (U)on 01-26-2022 Protein Ql (U) 30 mg/dl Negative [facility] Work Phone: [phone] Serum or plasma calcium sandy urement (mass/volume)on 01-26-2022 Calcium [Mass/Vol] 9.5 mg/dL 8.5-10.1 [facility] Work Phone: Serum or plasma cholesterol in HDL measurement (mass/volume)on 01-26-2022 Cholesterol in HDL [Mass/Vol] 33 mg/dL [facility] Work Phone: Comment on above: The drugs N-Acetylcy steine and Metamizole may falsely depress this assay. Reference Range HDL <40 mg/dL Low HDL Cholesterol HDL >or= 60 mg/dL High HDL Cholesterol Serum or plasma cholesterol in VLDL measurement (mass/volume)on 01-26-2022 Cholesterol in VLDL [Mass/Vol] 38 mg/dL 5-40 [facility] Work Phone: [phone] Serum or plasma creatinine m easurement (mass/volume)on 01-26-2022 Creatinine [Mass/Vol] 1.23 mg/dL 0.55-1.02 [facility] Work Phone: Comment on above: The validity of the calculated GFR & GFRAA in patients over 70 years has not been determined. Clinical correlation is essential. Serum or plasma low density lipoprotein (LDL) cholesterol measurement (mass/volume)on 01-26-2022 Cholesterol in LDL [Mass/Vol] 123 mg/dL 0-130 [facility] Work Phone: [phone] Serum or plasma urea nitroge n measurement (mass/volume)on 01-26-2022 Urea nitrogen [Mass/Vol] 16 mg/dL 7-18 [facility] Work Phone: Squamous epithelial cells de tection in urine sediment by light microscopyon 01-26-2022 Epithelial cells.squamous LM Ql (Urine sed) 5-10 SEEN /hpf [facility] Work Phone: Thin prep Papanicolaou smear with manual screeningon 01-26-2022 Thin prep Papanicolaou smear with manual screening 9 5-15 [facility] Work Phone: Urine blood detectionon 01-13 RBC Ql (U) Negative Negative [facility] Work Phone: RBC Ql (U) 0 SEEN /hpf [facility] Work Phone: Urine clarityon 01-26-2022 Clarity (U) Clear Clear [facility] Work Phone: Urine color determinationon 01-26-2022 Color (U) Yellow Yellow [facility] Work Phone: Urine glucose detectionon Glucose Ql (U) Normal mg/dl Normal [facility] Work Phone: Urine leukocyte esterase det ection by dipstickon 01-26-2022 Leukocyte esterase Test strip Ql (U) 500 /ul Negative [facility] Work Phone: Urine pHon 01-26-2022 pH (U) 6.0 [pH] [facility] Work Phone: Urine sediment bacteria coun t by microscopy (number/high power field)on 01-26-2022 Bacteria LM.HPF (Urine sed) [#/Area] 0 /[HPF] None Seen [facility] Work Phone: Urine specific gravity measu rementon 01-26-2022 Specific gravity (U) [Rel density] 1.015 [facility] Work Phone: Urobilinogen Auto test strip Ql (U)on 01-26-2022 Urobilinogen Ql (U) Normal mg/dl Normal [facility] Work Phone: Culture, urine Bacteria identified Cx Nom (U) Escherichia coli [facility] Work Phone: Vital Signs Date Time Vital Sign Value Performing Clinician Faci lity 06-04-2025 11:10-0400 Body height 167.[address] Red Sandoval MD Work Phone: [facility] 06-04-2025 11:10-0400 Body mass index (BMI) [Ratio] 43.4 kg/m2 Dr. Red Sandoval MD Work Phone: [facility] 06-04-2025 11:10-0400 Body temperature 97.6 [degF] Dr. Red Sandoval MD Work Phone: [facility] 06-04-2025 11:10-0400 Body weight 122.[address] Red Sandoval MD Work Phone: [facility] 06-04-2025 11:10-0400 Diastolic blood pressure 71 mm[Hg] Dr. Red Sandoval MD Work Phone: [facility] 06-04-2025 11:10-0400 Heart rate 78 /min Dr. Red Sandoval MD Work Phone: [facility] 06-04-2025 11:10-0400 Respiratory rate 18 /min Dr. Red Sandoval MD Work Phone: [facility] 06-04-2025 11:10-0400 SaO2% (BldA) [Mass fraction] 96 % Dr. Red Sandoval MD Work Phone: [facility] 06-04-2025 11:10-0400 Systolic blood pressure 121 mm[Hg] Dr. Red Sandoval MD Work Phone: [facility] 05-07-2025 08:27-0400 Body height 167.[address] Red Sandoval MD Work Phone: [facility] 05-07-2025 08:27-0400 Body mass index (BMI) [Ratio] 43.5 kg/m2 Dr. Red Sandoval MD Work Phone: [facility] 05-07-2025 08:27-0400 Body temperature 98 [degF] Dr. Red Sandoval MD Work Phone: [facility] 05-07-2025 08:27-0400 Body weight 122.[address] Red Sandoval MD Work Phone: [facility] 05-07-2025 08:27-0400 Diastolic blood pressure 82 mm[Hg] Dr. Red Sandoval MD Work Phone: [facility] 05-07-2025 08:27-0400 Heart rate 75 /min Dr. Red Sandoval MD Work Phone: 5([phone])892-915221 [place] [address] 05-07-2025 08:27-0400 Respiratory rate 18 /min Dr. Red Sandoval MD Work Phone: 3(898)540-733821 [place] [address] 05-07-2025 08:27-0400 SaO2% (BldA) [Mass fraction] 96 % Dr. Red Sandoval MD Work Phone: 7(388)485-465921 [place] [address] 05-07-2025 08:27-0400 Systolic blood pressure 132 mm[Hg] Dr. Red Sandoval MD Work Phone: 5(756)508-766221 [place] [address] 03-29-2025 10:18-0400 Diastolic blood pressure 51 mm[Hg] Dr. Red Sandoval MD Work Phone: 0(994)008-139421 [place] [address] 03-29-2025 10:18-0400 Heart rate 79 /min Dr. Red Sandoval MD Work Phone: 5(406)510-321321 [place] [address] 03-29-2025 10:18-0400 Respiratory rate 16 /min Dr. Red Sandoval MD Work Phone: [facility] 03-29-2025 10:18-0400 SaO2% (BldA) [Mass fraction] 97 % Dr. Red Sandoval MD Work Phone: 9(901)762-788921 [place] [address] 03-29-2025 10:18-0400 Systolic blood pressure 114 mm[Hg] Dr. Red Sandoval MD Work Phone: [facility] 03-29-2025 08:03-0400 Body height 167.[address] Red Sandoval MD Work Phone: 5(996)021-727621 [place] [address] 03-29-2025 08:03-0400 Body mass index (BMI) [Ratio] 43.5 kg/m2 Dr. Red Sandoval MD Work Phone: [facility] 03-29-2025 08:03-0400 Body temperature 96.4 [degF] Dr. Red Sandoval MD Work Phone: 7(633)996-191521 [place] [address] 03-29-2025 08:03-0400 Body weight 122.[address] Red Sandoval MD Work Phone: 7(606)[phone] [address] 03-08-2025 08:22-0400 Body mass index (BMI) [Ratio] 44.7 kg/m2 Dr. Red Sandoval MD Work Phone: 1(374)239-396221 [place] [address] 03-08-2025 08:22-0400 Body temperature 98.3 [degF] Dr. Red Sandoval MD Work Phone: 4(736)166-136121 [place] [address] 03-08-2025 08:22-0400 Body weight 125.[address] Red Sandoval MD Work Phone: 9(075)828-725021 [place] [address] 03-08-2025 08:22-0400 Diastolic blood pressure 74 mm[Hg] Dr. Red Sandoval MD Work Phone: 5(495)161-857121 [place] [address] 03-08-2025 08:22-0400 Heart rate 78 /min Dr. Red Sandoval MD Work Phone: 2(125)007-854021 [place] [address] 03-08-2025 08:22-0400 Respiratory rate 18 /min Dr. Red Sandoval MD Work Phone: 5(712)868-828621 [place] [address] 03-08-2025 08:22-0400 SaO2% (BldA) [Mass fraction] 97 % Dr. Red Sandoval MD Work Phone: 3(468)460-203921 [place] [address] 03-08-2025 08:22-0400 Systolic blood pressure 113 mm[Hg] Dr. Red Sandoval MD Work Phone: 7(464)275-247721 [place] [address] 12-01-2022 10:40-0500 Body temperature 96.9 [degF] Dr. Red Sandoval Work Phone: 4(715)962-013521 [place] [address] 12-01-2022 10:40-0500 Diastolic blood pressure 64 mm[Hg] Dr. Red Sandoval Work Phone: [facility] 12-01-2022 10:40-0500 Heart rate 62 /min Dr. Red Sandoval Work Phone: [facility] 12-01-2022 10:40-0500 Respiratory rate 16 /min Dr. Red Sandoval Work Phone: [facility] 12-01-2022 10:40-0500 SaO2% (BldA) [Mass fraction] 96 % Dr. Red Sandoval Work Phone: [facility] 12-01-2022 10:40-0500 Systolic blood pressure 106 mm[Hg] Dr. Red Sandoval Work Phone: [facility] 12-01-2022 09:27-0500 Body height 167.[address] Red Sandoval Work Phone: [facility] 12-01-2022 09:27-0500 Body mass index (BMI) [Ratio] 36.3 kg/m2 Dr. Red Sandoval Work Phone: [facility] 12-01-2022 09:27-0500 Body weight [address] Red Sandoval Work Phone: [facility] 11-10-2022 16:24-0500 Body mass index (BMI) [Ratio] 37.1 kg/m2 Dr. Red Sandoval Work Phone: [facility] 11-10-2022 16:24-0500 Body weight 104.[address] Red Sandoval Work Phone: [facility] Encounters Encounter Date Encounter Type Care Provider Facility Start: 08-13-2025 ambulatory Red Sandoval Facility:[facility] Start: 06-27-2025 End: 06-27-[address] Red Sandoval MD Work Phone: -Laboratory [facility] Start: 06-27-2025 End: 06-27-[address] Red Sandoval MD -Laboratory [facility] Start: 06-27-2025 End: 06-27-2025 ambulatory Red Sandoval Facility:[facility] Start: 06-15-2025 End: 06-15-[address] Red Sandoval MD Work Phone: -[facility]iology [place] Start: 06-15-2025 End: 06-15-[address] Nikolai Kim MD -[facility] [place] Work Phone: Start: 06-15-2025 End: 06-15-2025 ambulatory Red Sandoval Facility:[facility] Start: 06-04-[address] Glen Chapman MD -[facility] Start: 06-04-2025 End: 06-04-[address] Glen Chapman MD -[facility] Work Phone: Start: 06-04-2025 End: 06-04-[address] Red Sandoval MD Work Phone: -[facility] Start: 05-07-2025 End: 05-07-[address] Glen Chapman MD -[facility] Work Phone: Start: 05-07-2025 End: 05-07-2025 ambulatory Glen Chapman Facility:[facility] Start: 05-07-[address] Glen Chapman MD -[facility] Start: 04-17-2025 ambulatory Red Sandoval Facility:[facility] Start: 04-17-2025 Non-patient / Non-visit Dr. John real MD -[facility] Start: 04-17-2025 End: 04-17-[address] Red Sandoval MD Work Phone: [facility] Work Phone: Start: 04-17-2025 End: 04-17-[address] Red Sandoval MD -Cardi[facility] Services Work Phone: Start: 04-17-2025 End: 04-17-2025 ambulatory Red Sandoval Facility:[facility] Start: 03-29-2025 End: 03-29-[address] Red Sandoval MD Work Phone: [facility] Work Phone: Start: 03-29-2025 End: 03-29-[address] Red Sandoval MD -Laboratory [facility] Start: 03-29-[address] Glen Chapman MD -[facility] Start: 03-29-2025 End: 03-29-2025 ambulatory Red Sandoval Facility:[facility] Start: 03-08-2025 End: 03-08-[address] Glen Chapman MD -[facility] Work Phone: Start: 03-08-2025 End: 03-08-2025 ambulatory Glen Chapman Facility:[facility] Start: 03-05-2025 Non-patient / Non-visit Yamila Cohen antonieta MO[facility] -[facility] Work Phone: Start: 03-05-2025 ambulatory Red Sandoval Facility:[facility] Start: 03-05-2025 End: 03-05-[address] Red Sandoval MD -Laboratory, [facility] Start: 03-05-2025 End: 03-05-2025 ambulatory Red Sandoval Facility:[facility] Start: 03-01-2025 End: 03-01-[address] Red Sandoval MD Work Phone: [facility] Work Phone: Start: 03-01-2025 End: 03-01-[address] Red Sandoval MD -Laboratory, [place] Work Phone: Start: 03-01-2025 End: 03-01-2025 ambulatory Red Sandoval Facility:[facility] Start: 10-08-2024 End: 10-08-2024 ambulatory Red Sandoval Facility:[facility] Start: 02-07-2024 End: 02-07-2024 ambulatory [facility] Work Phone: Start: 02-07-2024 End: 02-07-2024 Patient encounter procedure [facility], [facility] Work Phone: Start: 01-19-2024 End: 01-19-2024 ambulatory [facility] Work Phone: Start: 01-19-2024 End: 01-19-2024 Patient encounter procedure [facility] Start: 07-26-2023 End: 07-26-2023 ambulatory [facility] Work Phone: Start: 07-26-2023 End: 07-26-2023 Patient encounter procedure [facility] Start: 01-25-2023 End: 01-25-[address] Red Sandoval Work Phone: [facility] Work Phone: Start: 01-25-2023 End: 01-25-[address] Red Sandoval Work Phone: [facility] Start: 12-01-2022 Non-patient / Non-visit Dr. Yousuf Sandoval Work Phone: [facility] Start: 12-01-2022 End: 12-01-2022 Admission to same day surgery center Dr. Red Sandoval Work Phone: [facility] Start: 12-01-2022 End: 12-01-[address] Red Sandoval Work Phone: [facility] Work Phone: Start: 11-10-2022 Non-patient / Non-visit Dr. Yousuf Sandoval Work Phone: [facility] Start: 07-27-2022 End: 07-27-2022 ambulatory [facility] Work Phone: Start: 07-27-2022 End: 07-27-2022 Patient encounter procedure [facility] Start: 06-26-2022 End: 06-26-2022 [facility] [place] [facility] Start: 04-22-2022 End: 04-22-2022 Patient encounter procedure [facility] Start: 01-26-2022 End: 01-26-2022 Patient encounter procedure [facility], [place] [facility] Procedures Date Procedure Procedure Detail Performing Clinician Start: 06-27-2025 Total iron binding c apacity measurement Dr. Red Sandoval MD Work Phone: Start: 06-15-2025 X-ray of chest, PA a nd lateral views Dr. Red Sandoval MD Work Phone: Start: 06-04-[address] Red Sandoval MD Work Phone: Start: 06-04-2025 Serum inorganic phos phate measurement Dr. Red Sandoval MD Work Phone: Start: 06-04-2025 Total iron binding c apacity measurement Dr. Red Sandoval MD Work Phone: Start: 05-07-2025 Serum inorganic phos phate measurement Dr. Red Sandoval MD Work Phone: Start: 05-07-2025 Total iron binding c apacity measurement Dr. Red Sandoval MD Work Phone: Start: 04-17-2025 Radionuclide imaging of perfusion of myocardium under exercise stress Dr. Red Sandoval MD Work Phone: Start: 03-08-[address] antibody IgA level [address]. [...] Work Phone: Comment on above: Performed at: [facility] [address] [id number] Director: Preston Ashley PhD, Phone: [phone] Start: 12-01-[address] Red cool Work Phone: Start: 04-22-2022 Urine culture Urine culture Plan of Treatment Date Care Activity Detail Author Start: 06-04-2025 [facility] Start: 05-07-2025 [facility] Start: 03-08-2025 Patient referral [facility] Work Phone: Start: 12-01-2022 Colonoscopy flx dx w/collj spec when pfrmd DIAGNOSTIC COLONOSCOPY [facility] Start: 12-01-2022 Patient discharge [facility] C reactive protein [Mass/volume] in Serum or Plasma [facility] C reactive protein [Mass/volume] in Serum or Plasma [facility] CBC W Auto Different ial panel - Blood [facility] CBC W Auto Different ial panel - Blood [facility] CBC W Auto Different ial panel - Blood [facility] Cobalamin (Vitamin B 12) [Mass/volume] in Serum or Plasma [facility] Cobalamin (Vitamin B 12) [Mass/volume] in Serum or Plasma [facility] Colonoscopy [facility] Comprehensive metabo lic 1999 panel - Serum or Plasma [facility] Comprehensive metabo lic 1999 panel - Serum or Plasma [facility] Erythrocyte sediment ation rate [facility] Erythrocyte sediment ation rate [facility] Ferritin [Mass/volum e] in Serum or Plasma [facility] Ferritin [Mass/volum e] in Serum or Plasma [facility] Ferritin [Mass/volum e] in Serum or Plasma [facility] Folate [Moles/volume ] in Serum or Plasma [facility] Folate [Moles/volume ] in Serum or Plasma [facility] Folate [Moles/volume ] in Serum or Plasma [facility] [facility] Iron and Iron bindin g capacity panel - Serum or Plasma [facility] Iron and Iron bindin g capacity panel - Serum or Plasma [facility] Iron and Iron bindin g capacity panel - Serum or Plasma [facility] Lactate dehydrogenas e measurement [facility] Lactate dehydrogenas e measurement [facility] Lactate dehydrogenas e measurement [facility] Magnesium measurement [facility] Magnesium measurement [facility] Magnesium measurement [facility] Patient referral [facility] Work Phone: Serum inorganic phos phate measurement [facility] Serum inorganic phos phate measurement [facility] Serum inorganic phos phate measurement [facility] Vitamin B12 measurement [facility] Payers Date Payer Category Payer Private Health Insurance [id number] 2024 Private Health Insurance [id number] 2024 Self-pay [id number] Unknown [id number] Unknown [id number] 2.16.8 [id number] Unknown [id number] 2.16.8 [id number] Unknown [id number] 2.16.8 40.1.893505.3.579.2.462 Unknown [id number] 2.16.8 40.1.814140.3.579.2.462 Unknown [id number] 2.16.8 40.1.283782.3.579.2.462 Unknown [id number] 2.16.8 40.1.713020.3.579.2.462 Unknown [id number] 2.16.8 40.1.743551.3.579.2.462 Unknown [id number] 2.16.8 40.1.902602.3.579.2.462 Unknown [id number] 2.16.8 40.1.554624.3.579.2.462 Unknown [id number] 2.16.8 40.1.934248.3.579.2.462 Unknown [id number] 2.16.8 40.1.411075.3.579.2.462 Unknown [id number] 2.16.8 40.1.500480.3.579.2.462 Unknown [id number] 2.16.8 40.1.150817.3.579.2.462 Unknown [id number] 2.16.8 40.1.376003.3.579.2.462 Social History Date Type Detail Facility Tobacco smoking status NHIS Unknown if ever smoked [facility] Work Phone: Start: 1970 Sex Assigned At Female [facility] Start: 12-01-2022 End: 12-01-2022 Tobacco smoking status [facility] Unknown if ever smoked [facility] Start: 03-05-2025 End: 03-08-2025 Tobacco smoking status NHIS Ex-smoker (finding) [facility] Start: 03-06-2025 Sex Female (finding) [facility] NEGATED: Highlighted row [facility] Goals Date Patient Goal Desired Activity /State Mental Status Date Assessment Result Facility 03-29-2025 Cognitive function Awake;Alert;A ppropriate;Foll ows Commands [facility] Work Phone: 03-15-2025 Cognitive function Arousable To Voice/Nam e [facility] Work Phone: 12-01-2022 Cognitive function Voice/Name [facility] Work Phone: Clinical Notes 12-01-2022 to 06-15-2025 Note Date & Type Note Facility 06-15-2025 Radiology Diagnostic study note [facility] Imaging Services [address] [place], [place] [address] Chest PA and Lateral MR#: [id number] Acct: [id number] Name: HEIDI ANDREWS Rep #: [id number] : 1970 F 55 From: Ricardo Nunn MD PCP: Dr. Red Sandoval MD Status: REG C LI Study:Chest PA and Lateral Date of Exam: 06/15/25 Exam# [id number] Ordering Dr: Nikolai Kim MD PROCEDURE: CHEST PA AND LATERAL 06/15/2025 REASON FOR EXAM: SOB TECHNIQUE: CHEST PA AND LATERAL COMPARISON: None. RAD/Chest PA and Lateral IMPRESSION: Mild right hemidiaphragm elevation/eventration is seen. Lungs appear clear of acute disease. No pleural effusion or pneumothorax is noted. The cardiomediastinal silhouette is within the normal range. Mild thoracic spine degenerative changes are also seen. No evidence of acute cardiopulmonary disease. Reading Location: [place] [address] CC: Dr. Red Sandoval MD; Dr. Nikolai Kim MD ~ Movie Star: Signed [facility] 06-04-2025 Progress note [facility] 06-04-2025 Progress note Note Date/Time June 04, 2025 12:39pm [facility] [address] [address] OFFICE VISIT Date of Service: 06/04/25 1109 MR#: [id number] Acct: [id number] Name: HEIDI ANDREWS Rep #: [id number] : 1970 From: Glen Chapman MD Age/Sex: 55/F Location: [facility] Status: Signed HPI Subjective Date of Service 06/04/25 Chief Complaint F/u for Iron dificiency anemia. History of Present Illness 55 y.o.woman presented to PCP with SOB, fatigue, palpitations, she was found to Microcytic anemia with negative stool for occult blood on 03/05/2025. Colonoscopy in Nov 2022 was negative. She was referred for management. Feels tired. Colonoscopy in Nov 2022 was negative. Was found to have Iron deficiency anemia, got IV iron sucrose on 03/15/2025, 03/22/2025 and 03/29/2025. She was also started on Vitamin B12 for deficiency. Comes for follow up. Feels better. [facility] Medical History Sleep apnea Wears glasses Thyroid disease Diabetes Anemia Former smoker Diabetes Anxiety Psoriasis Hypothyroid Vitamin D deficiency Hypertriglyceridemia Bipolar disorder, unspecified HTN (hypertension) Surgical History Hx of section Hx of bilateral breast reduction surgery Family History Father Hypertension Diabetes Sister Anxiety MCTD (mixed connective tissue disease) Mother Psoriatic arthritis Social History household members: spouse current occupational status: employed current occupation: [employer] Smoking Status: Former smoker alcohol intake: never substance use type: does not use Intake Vital Signs 05/07/25 08:27 06/04/25 11:10 Height 5 ft 6 in 5 ft 6 in Weight: 122.158 kg BMI 43.4 BP 121/71 H Blood Pressure Location Lt brachial Position Sitting Respiration 18 Pulse 78 Pulse Source Monitor Temp 97.6 F L Temperature Source Temporal Artery Pulse Oximetry (%) 96 Oxygen Delivery Method room air Intake Accompanied by: Self Is patient in pain?: No Allergies No Known Allergies Allergy (Verified 06/04/25 11:17) Medications ?Medication ?Instructions ?Recorded ?Confirmed ?Type gemfibrozil 600 mg tablet 600 mg PO BID 11/10/2206/04 History lamotrigine 150 mg tablet 150 mg PO BID 11/10/2206/04 History levothyroxine 88 mcg tablet 88 mcg PO DAILY 11/10/22 0 06/04/25 History (Levoxyl) metformin 1,000 mg tablet 1,000 mg PO BID 11/10/22 History metoprolol succinate 200 mg 200 mg PO DAILY 11/10/22 0 06/04/25 History tablet,extended release 24 hr (Toprol XL) valsartan 320 1 tab PO DAILY 11/10/22/12/09 History mg-hydrochlorothiazide 12.5 mg tablet (Diovan HCT) oxybutynin chloride 5 mg tablet 5 mg PO BID 03/05/25 0 06/04/25 History clonidine HCl 0.1 mg tablet 0.05 mg PO BID 03/08/25 History fluoxetine 20 mg capsule (Prozac) 60 mg PO DAILY 03/0806/04/25 History folic acid 1 mg tablet 1 mg PO QDAY #90 tabs 06/04/25 Rx mecobalamin (vitamin B12) 1,000 1,000 mcg PO QDAY #90 tabs 05/07/25 06/04/25 Rx mcg chewable tablet magnesium oxide 400 mg PO QDAY #30 caps 05/1506/04/25 Rx risperidone 1 mg tablet 1.5 mg PO QHS 06/04/2506/04 History Central Venous Access Central Venous Access: No Laboratory Tests 03/01/25 03/05/25 05/07/25 11:43 10:19 07:49 WBC 5.0 4.6 Hgb 7.2 L 10.3 L Hct 26.7 L 33.0 L MCV 75.4 L Plt Count 232 Sodium Potassium Chloride Carbon Dioxide BUN Creatinine Glucose Calcium Phosphorus 2.6 L Iron 33 L 57 Magnesium 1.3 L TIBC 392 Iron Saturation 14.0 Ferritin 13 L 90 Total Bilirubin AST ALT Alkaline Phosphatase Lactate Dehydrogenase 132 C-React Prot Ext Range Total Protein Albumin Globulin Vitamin B12 152 L 06/04/25 09:59 WBC 6.2 Hgb 11.3 L Hct 35.0 L MCV Plt Count 241 Sodium 135 Potassium 3.7 Chloride 96 L Carbon Dioxide 24.0 BUN 9 Creatinine 0.83 Glucose 283 H Calcium 9.1 Phosphorus 2.4 L Iron 57 Magnesium 1.5 TIBC 395 Iron Saturation 14.0 Ferritin 76 Total Bilirubin 0.26 AST 17 ALT 12 Alkaline Phosphatase 83 Lactate Dehydrogenase 167 C-React Prot Ext Range 23.30 H Total Protein 6.9 Albumin 4.2 Globulin 2.7 Vitamin B12 416 Exam Physical Exam Const alert, oriented x3 and no apparent distress Coding Level of Care Code Off vis,est,level 3 Exam Problem Focused Diagnoses B12 deficiency E53.8 Iron deficiency anemia, unspecified iron deficiency anemia type D50.9 Iron deficiency anemia type: unspecified iron deficiency Hypomagnesemia E83.42 Assessment and Plan Assessment and Plan (1) B12 deficiency: Status: Chronic Comment: B12 level is normal today. Plan: To continue Oral Vitamin B12 1000mcg daily with folate. (2) Iron deficiency anemia: Status: Chronic Qualifiers: Iron deficiency anemia type: unspecified iron deficiency Qualified Code(s): D50.9 - Iron deficiency anemia, unspecified Comment: Got IV Iron replacement. Iron profile is normal today. Hgb is 11.3 today. Plan: To continue Oral Iron 2-3 times a week. (3) Hypomagnesemia: Status: Resolved Plan: To continue Magnesium Oxide 500mg daily as needed. 06/04/25 1239 <Electronically signed by Glen Bowling> Date _ Glen Chapman MD Cosigner Signature: Date (if applicable) CC: Dr. Red Sandoval MD ~ [facility] Work Phone: 1(330) 738-110504-24-2025 Evaluation note* Diagnosis Onset Date Resolution Status Admit Date Iron deficiency anemia acute Ap ril 2024 8:14am Anemia noneactive March 08 8:14am [facility] Work Phone: 1(450) 945-434004-24-2025 Evaluation note* Diagnosis Onset Date Resolution Status Admit Date Iron deficiency anemia chronic Ap ril 2024 8:14am Anemia noneactive March 08 8:14am B12 deficiency acute May 07, 2025 7:45am Hypomagnesemia acute May 07, 2025 7:45am Iron deficiency anemia chronic Ju ne 2024 7:45am [facility] Work Phone: 1(603) 340-438804-24-2025 Evaluation note* Diagnosis Onset Date Resolution Status Admit Date Iron deficiency anemia chronic Ap ril 2024 8:14am Anemia noneactive March 08 8:14am B12 deficiency chronic May 07, 2025 7:45am Iron deficiency anemia chronic Ju ne 2024 7:45am Hypomagnesemia resolved May 07, 2025 7:45am B12 deficiency chronic June 04, 2025 9:55am Iron deficiency anemia chronic Ju ly 2024 9:55am Hypomagnesemia resolved June 04, 2025 9:55am [facility] Work Phone: 1(927) 272-103603-25-2024 NotePap Smear Specimen AdequacyMarch 2023 9:00amComment.Satisfactory for evaluation. Endocervical and/or squamous metaplasticcells (endocervical component)are present.[facility] INTER[facility]ACED A#[id number] MetroHealth SystemComment on above:Satisfactory for evaluation. Endocervical and/or squamous metaplasticcells (endocervical component)are present.12-01-2022 Procedure noteWThe [facility] System 12-01-2022 Procedure noteWThe MetroHealth SystemEvaluation noteNo assessment information availableWThe [facility] System Work Phone: Evaluation note* Diagnosis Onset Date Resolution Status Encounter for screening for malignant neoplasm of colo n acute [facility] Work Phone: History and physical note Author Dr. Marie [facility] December 01, 2022 10:07am Note Date/Time December 01, 2022 1 0:07am [facility] Medical Records Department [address] [place] [id number] History & Physical Exam 12/01/22 1005 MR#: [id number] Acct: [id number] Name: HEIDI ANDREWS Rep #:[id number] : 1970 52 From: Lamine gracia MD PCP: Dr. Red Sandoval MD Status:[facility] Location: [address] HPI Narrative HEIDI ANDREWS, is a 52 F who presents for screening colonoscopy. Patient reports no blood in the stool or abdominal pain. She has never had a colonoscopy in the past. No family history of colon cancer. [facility] Medical History Anemia Anxiety Bipolar disorder, [...] 09:05) Discharge Is Pt Admitted From a [facility], or a [facility]: No Who Could Help: After D/C, Where [...] proceed with procedure. Lamine Marie MD Pager: [facility] [address] [place] [address], [address] [place] [address] Office: Surgery Risks - Colonoscopy Risks Include but are not Limited To: Risks include but are not limited to: Bleeding, perforation requiring further surgery, inability to complete colonoscopy requiring barium enema. 12/01/22 1007 <Electronically signed by Lamine Marie MD> Cosigner Signature (if applicable): CC: Dr. Lamine Marie MD; Dr. Red Sandoval MD~ Signed [facility] Work Phone: Reason for referral (narrative)No reason for referral information availableWThe [facility]Health System Work Phone: Chief Complaint and Reason for [...] 8:14am Anemia March 08, 2025 8:1 4am Chief Complaint Admit Date Amb Documentation March 05, 2025 4:3 7pm Anemia March 08, 2025 8:1 4am MED ONC March 29, 2025 8:00a m CHEST PAIN April 17, 2025 6:15a m CHEST PAIN April 17, 2025 9:26a m Chief Complaint Admit Date Amb Documentation March 05, 2025 4:3 7pm Anemia March 08, 2025 8:1 4am CHEST PAIN April 17, 2025 6:15a m CHEST PAIN April 17, 2025 9:26a m MED ONC May 07, 2025 7:45 am Reason for Visit Admit Date Iron deficiency anemia March 08, 2025 8:14am Anemia March 08, 2025 8:1 4am B12 deficiency May 07, 2025 7:45 am Hypomagnesemia May 07, 2025 7:45 am Iron deficiency anemia May 07, 2025 7 :45am Chief Complaint Admit Date Amb Documentation March 05, 2025 4:3 7pm Anemia March 08, 2025 8:1 4am CHEST PAIN April 17, 2025 6:15a m CHEST PAIN April 17, 2025 9:26a m 4MO LABS May 07, 2025 7:45 am 4WKS LABS(10:00) June 04, 2025 9:55 am MED ONC June 04, 2025 10:0 0am Reason for Visit Admit Date Iron deficiency anemia March 08, 2025 8:14am Anemia March 08, 2025 8:1 4am B12 deficiency May 07, 2025 7:45 am Iron deficiency anemia May 07, 2025 7 :45am Hypomagnesemia May 07, 2025 7:45 am B12 deficiency June 04, 2025 9:55 am Iron deficiency anemia June 04, 2025 9 :55am Hypomagnesemia June 04, 2025 9:55 am Chief Complaint Admit Date Anemia March 08, 2025 8:1 4am CHEST PAIN April 17, 2025 6:15a m CHEST PAIN April 17, 2025 9:26a m 4MO LABS May 07, 2025 7:45 am 4WKS LABS(10:00) June 04, 2025 9:55 am MED ONC June 04, 2025 10:0 0am Family History No Family History Records Found [...] Will No November 25 8:38am Power of Tax Representative No November 25, 2022 8:38am Advance Directive Response Recorded Date/ Time Living Will No November 25 9:38am Power of Tax Representative No November 25, 2022 9:38am Summary Purpose [...] Sandoval MD Primary Care Provider Active Cristy David Attending Provider Active Team Status: Active Member [...] March 29, 2025 End: March 29, 2025 Team Status: Inactive Member Role Status Dates Dr. Red Sandoval MD Primary Care Provider Active Start: April 17, 2025 End: April 17, 2025 Dr. Red Sandoval MD Attending Provider Active Start: April 17, 2025 End: April 17, 2025 Dr. Red Sandoval MD Referring Provider Active Start: April 17, 2025 End: April 17, 2025 Team Status: Active Member Role Status Dates Dr. Red Sandoval MD Primary Care Provider Active Start: April 17, 2025 Dr. Red Sandoval MD Referring Provider Active Start: April 17, 2025 Dr. Red Sandoval MD Other Provider Active Star t: April 17, 2025 Dr. John Damian MD Attending Provider Active Start: April 17, 2025 Team Status: Active Member Role Status Dates Dr. Red Sandoval MD Primary Care Provider Active Start: May 07, 2025 Dr. Glen Chapman MD Attending Provider Active S tart: May 07, 2025 Dr. Glen Chapman MD Referring Provider Active S tart: May 07, 2025 Team Status: Active Member Role/Relationship Status Dates Dr. Red Sandoval MD Primary Care Provider Active Team Status: Inactive Member Role/Relationship Status Dates Dr. Red Sandoval MD Primary Care Provider Active Start: March 01, 2025 End: March 01, 2025 Dr. Red Sandoval MD Attending Provider Active Start: March 01, 2025 End: March 01, 2025 Dr. Red Sandoval MD Referring Provider Active Start: March 01, 2025 End: March 01, 2025 ROSETTA MAGALIKIMI Other Provider Active Start: March 01, 2025 End: March 01, 2025 Team Status: Inactive Member Role/Relationship Status Dates Dr. Red Sandoval MD Primary Care Provider Active Start: March 05, 2025 End: March 05, 2025 Dr. Red Sandoval MD Attending Provider Active Start: March 05, 2025 End: March 05, 2025 Dr. Red Sandoval MD Referring Provider Active Start: March 05, 2025 End: March 05, 2025 Team Status: Active Member Role/Relationship Status Dates Dr. Red Sandoval MD Primary Care Provider Active Start: March 05, 2025 Yamila Stein LPN Attending Provider Active S tart: March 05, 2025 Team Status: Inactive Member Role/Relationship Status Dates Dr. Red Sandoval MD Primary Care Provider Active Start: March 08, 2025 End: March 08, 2025 Dr. Red Sandoval MD Referring Provider Active Start: March 08, 2025 End: March 08, 2025 Dr. Glen Chapman MD Attending Provider Active S tart: March 08, 2025 End: March 08, 2025 Team Status: Inactive Member Role/Relationship Status Dates Dr. Red Sandoval MD Primary Care Provider Active Start: March 29, 2025 End: March 29, 2025 Dr. Red Sandoval MD Attending Provider Active Start: March 29, 2025 End: March 29, 2025 Dr. Red Sandoval MD Referring Provider Active Start: March 29, 2025 End: March 29, 2025 Team Status: Inactive Member Role/Relationship Status Dates Dr. Rde Sandoval MD Primary Care Provider Active Start: April 17, 2025 End: April 17, 2025 Dr. Rde Sandoval MD Attending Provider Active Start: April 17, 2025 End: April 17, 2025 Dr. Red Sandoval MD Referring Provider Active Start: April 17, 2025 End: April 17, 2025 Team Status: Active Member Role/Relationship Status Dates Dr. Red Sandoval MD Primary Care Provider Active Start: April 17, 2025 Dr. Red Sandoval MD Referring Provider Active Start: April 17, 2025 Dr. Red Sandoval MD Other Provider Active Star t: April 17, 2025 Dr. John Damian MD Attending Provider Active Start: April 17, 2025 Team Status: Inactive Member Role/Relationship Status Dates Dr. Red Sandoval MD Primary Care Provider Active Start: May 07, 2025 End: May 07, 2025 Dr. Red Sandoval MD Referring Provider Active Start: May 07, 2025 End: May 07, 2025 Dr. Glen Chapman MD Attending Provider Active S tart: May 07, 2025 End: May 07, 2025 Team Status: Inactive Member Role/Relationship Status Dates Dr. Red Sandoval MD Primary Care Provider Active Start: June 04, 2025 End: June 04, 2025 Dr. Red Sandoval MD Referring Provider Active Start: June 04, 2025 End: June 04, 2025 Dr. Glen Chapman MD Attending Provider Active S tart: June 04, 2025 End: June 04, 2025 Team Status: Active Member Role/Relationship Status Dates Dr. Red Snadoval MD Primary Care Provider Active Start: June 04, 2025 Dr. Glen Chapman MD Attending Provider Active S tart: June 04, 2025 Dr. Glen Chapman MD Referring Provider Active S tart: June 04, 2025 Team Status: Inactive Member Role/Relationship Status Dates Dr. Red Sandoval MD Primary Care Provider Active Start: March 05, 2025 End: March 05, 2025 Dr. Red Sandoval MD Attending Provider Active Start: March 05, 2025 End: March 05, 2025 Dr. Red Sandoval MD Referring Provider Active Start: March 05, 2025 End: March 05, 2025 Team Status: Active Member Role/Relationship Status Dates Dr. Red Sandoval MD Primary Care Provider Active Start: March 05, 2025 Yamila Stein LPN Attending Provider Active S tart: March 05, 2025 Team Status: Inactive Member Role/Relationship Status Dates Dr. Red Sandoval MD Primary Care Provider Active Start: March 08, 2025 End: March 08, 2025 Dr. Red Sandoval MD Referring Provider Active Start: March 08, 2025 End: March 08, 2025 Dr. Glen Chapman MD Attending Provider Active S tart: March 08, 2025 End: March 08, 2025 Team Status: Inactive Member Role/Relationship Status Dates Dr. Red Sandoval MD Primary Care Provider Active Start: March 29, 2025 End: March 29, 2025 Dr. Red Sandoval MD Attending Provider Active Start: March 29, 2025 End: March 29, 2025 Dr. Red Sandoval MD Referring Provider Active Start: March 29, 2025 End: March 29, 2025 Team Status: Inactive Member Role/Relationship Status Dates Dr. Red Sandoval MD Primary Care Provider Active Start: April 17, 2025 End: April 17, 2025 Dr. Red Sandoval MD Attending Provider Active Start: April 17, 2025 End: April 17, 2025 Dr. Red Sandoval MD Referring Provider Active Start: April 17, 2025 End: April 17, 2025 Team Status: Active Member Role/Relationship Status Dates Dr. Red Sandoval MD Primary Care Provider Active Start: April 17, 2025 Dr. Red Sandoval MD Referring Provider Active Start: April 17, 2025 Dr. Red Sandoval MD Other Provider Active Star t: April 17, 2025 Dr. John Damian MD Attending Provider Active Start: April 17, 2025 Team Status: Inactive Member Role/Relationship Status Dates Dr. Red Sandoval MD Primary Care Provider Active Start: May 07, 2025 End: May 07, 2025 Dr. Red Sandoval MD Referring Provider Active Start: May 07, 2025 End: May 07, 2025 Dr. Glen Chapman MD Attending Provider Active S tart: May 07, 2025 End: May 07, 2025 Team Status: Inactive Member Role/Relationship Status Dates Dr. Red Sandoval MD Primary Care Provider Active Start: June 04, 2025 End: June 04, 2025 Dr. Red Sandoval MD Referring Provider Active Start: June 04, 2025 End: June 04, 2025 Dr. Glen Chapman MD Attending Provider Active S tart: June 04, 2025 End: June 04, 2025 Team Status: Active Member Role/Relationship Status Dates Dr. Red Sandoval MD Primary Care Provider Active Start: June 04, 2025 Dr. Glen Chapman MD Attending Provider Active S tart: June 04, 2025 Dr. Glen Chapman MD Referring Provider Active S tart: June 04, 2025 Team Status: Active Member Role/Relationship Status Dates Dr. Red Sandoval MD Primary Care Provider Active Start: June 15, 2025 Dr. Nikolai Kim MD Attending Provider Active Start: June 15, 2025 Dr. Nikolai Kim MD Referring Provider Active Start: June 15, 2025 Team Status: Inactive Member Role/Relationship Status Dates Dr. Red Sandoval MD Primary Care Provider Active Start: June 27, 2025 End: June 27, 2025 Dr. Red Sandoval MD Attending Provider Active Start: June 27, 2025 End: June 27, 2025 Team Status: Inactive Member Role/Relationship Status Dates Dr. Red Sandoval MD Primary Care Provider Active Start: March 08, 2025 End: March 08, 2025 Dr. Red Sandoval MD Referring Provider Active Start: March 08, 2025 End: March 08, 2025 Dr. Glen Chapman MD Attending Provider Active S tart: March 08, 2025 End: March 08, 2025 Team Status: Inactive Member Role/Relationship Status Dates Dr. Red Sandoval MD Primary Care Provider Active Start: March 29, 2025 End: March 29, 2025 Dr. Red Sandoval MD Attending Provider Active Start: March 29, 2025 End: March 29, 2025 Dr. Red Sandoval MD Referring Provider Active Start: March 29, 2025 End: March 29, 2025 Team Status: Inactive Member Role/Relationship Status Dates Dr. Red Sandoval MD Primary Care Provider Active Start: April 17, 2025 End: April 17, 2025 Dr. Red Sandoval MD Attending Provider Active Start: April 17, 2025 End: April 17, 2025 Dr. Red Sandoval MD Referring Provider Active Start: April 17, 2025 End: April 17, 2025 Team Status: Active Member Role/Relationship Status Dates Dr. Red Sandoval MD Primary Care Provider Active Start: April 17, 2025 Dr. Red Sandoval MD Referring Provider Active Start: April 17, 2025 Dr. Red Sandoval MD Other Provider Active Star t: April 17, 2025 Dr. John Damian MD Attending Provider Active Start: April 17, 2025 Team Status: Inactive Member Role/Relationship Status Dates Dr. Red Sandoval MD Primary Care Provider Active Start: May 07, 2025 End: May 07, 2025 Dr. Red Sandoval MD Referring Provider Active Start: May 07, 2025 End: May 07, 2025 Dr. Glen Chapman MD Attending Provider Active S tart: May 07, 2025 End: May 07, 2025 Team Status: Inactive Member Role/Relationship Status Dates Dr. Red Sandoval MD Primary Care Provider Active Start: June 04, 2025 End: June 04, 2025 Dr. Red Sandoval MD Referring Provider Active Start: June 04, 2025 End: June 04, 2025 Dr. Glen Chapman MD Attending Provider Active S tart: June 04, 2025 End: June 04, 2025 Team Status: Active Member Role/Relationship Status Dates Dr. Red Sandoval MD Primary Care Provider Active Start: June 04, 2025 Dr. Glen Chapman MD Attending Provider Active S tart: June 04, 2025 Dr. Glen Chapman MD Referring Provider Active S tart: June 04, 2025 Team Status: Inactive Member Role/Relationship Status Dates Dr. Red Sandoval MD Primary Care Provider Active Start: June 15, 2025 End: June 15, 2025 Dr. Nikolai Kim MD Attending Provider Active Start: June 15, 2025 End: June 15, 2025 Dr. Nikolai Kim MD Referring Provider Active Start: June 15, 2025 End: June 15, 2025 Team Status: Inactive Member Role/Relationship Status Dates Dr. Red Sandoval MD Primary Care Provider Active Start: June 27, 2025 End: June 27, 2025 Dr. Red Sandoval MD Attending Provider Active Start: June 27, 2025 End: June 27, 2025 INFORMATION SOURCE (unrecogn ized section and content) DATE CREATED AUTHOR 08/08/2025 [facility] FOR RECORDS PERTAINING TO PATIENTS WHO ARE [...] BE BASED ON THE PRIMARY CLINICAL RECORDS. [employer] provides no warranty or guarantee of the accuracy or completeness of information in this document.
--- OUTSIDE RECORDS SUMMARY | 2025-08-17 17:20 | XMS RPT_ITS | CCD ---
Author Organization [facility] CliniSyct Care Team Providers Care Mat Inspector Name Role Phone Dr. Red Sandoval Primary [...] Provider Dr. Red Sandoval MD Attending Provider [phone] Red Sandoval Attending Unavailable Sandoval, Red Referring [...] Unavailable Sandoval, Red Primary Care Unavailable Sandoval, Rde Primary Care Unavailable Sibilia, Nikolai Mon Attending [...] Auto (Unsp spec) [#/Vol] 1.04 10*3/uL 0.83-4.[address] [facility] Absolute neutrophil countOrd ered By: Red Sandoval on 06-27-2025 Neutrophils (Bld) [#/Vol] 4.1 10*3/uL 2.0-7.[address] [facility] Anion gap in Serum or Plasma Ordered By: Red Sandoval on 06-27-2025 Anion gap [Moles/Vol] 17 mmol/L High 5-15 [facility] Automated lymphocyte count a s percentage of total leukocytesOrdered By: Red Sandoval on 06-27-2025 Lymphocytes/100 WBC Auto (Unsp spec) 18.2 % Low 19-[address] [facility] BUN/creatinine ratioOrdered By: Red Sandoval on 06-27-2025 Urea nitrogen/Creatinine [Mass ratio] 10.8 mg/mg 09-[address] [facility] Basic Metabolic Profile (BMP )on 06-27-2025 BUN/CRE 10.8 RATIO Normal 09-[address] [facility] Comment on above: Performed By: #### L 503.6030, L100.0100, L500.2500, L500.4100, L502.0250, L503.6550 #### [facility] [place], [address] Calcium [Mass/Vol] 8.7 mg/dL Normal 7.6-11.0 [facility] Comment on above: Performed By: #### L 503.6030, L100.0100, L500.2500, L500.4100, L502.0250, L503.6550 #### [facility] [address] [place], [address] Chloride [Moles/Vol] 98 mmol/L Normal 98-108 [facility] Comment on above: Performed By: #### L 503.6030, L100.0100, L500.2500, L500.4100, L502.0250, L503.6550 #### [facility] [address] [place], [address] CO2 [Moles/Vol] 24.2 mmol/L Normal 21.0-32.[address] [facility] Comment on above: Performed By: #### L 503.6030, L100.0100, L500.2500, L500.4100, L502.0250, L503.6550 #### [facility] [address] [place], [address] Creatinine [Mass/Vol] 0.93 mg/dL Normal 0.70-1.20 [facility] Comment on above: Performed By: #### L 503.6030, L100.0100, L500.2500, L500.4100, L502.0250, L503.6550 #### [facility] [address] [place], [address] GAP 17 High 5-[address] [facility] Comment on above: Performed By: #### L 503.6030, L100.0100, L500.2500, L500.4100, L502.0250, L503.6550 #### [facility] [address] [place], [address] GFR/1.73 sq M.predicted among non-blacks MDRD (S/P/Bld) [Vol rate/Area] 73 mL/min/{1.73_m2} Normal >[address] [facility] Comment on above: Result Comment: mL/m in/1.73m2 CKD-EPI Creatinine Equation (2020) Performed By: #### L 503.6030, L100.0100, L500.2500, L500.4100, L502.0250, L503.6550 #### [facility] [address] [place], [address] Glucose [Mass/Vol] 198 mg/dL High 70-99 [facility] Comment on above: Performed By: #### L 503.6030, L100.0100, L500.2500, L500.4100, L502.0250, L503.6550 #### [facility] [address] [place], [address] Potassium [Moles/Vol] 3.7 mmol/L Normal 3.3-5.1 [facility] Comment on above: Performed By: #### L 503.6030, L100.0100, L500.2500, L500.4100, L502.0250, L503.6550 #### [facility] [address] [place], [address] Sodium [Moles/Vol] 139 mmol/L Normal 133-145 [facility] Comment on above: Performed By: #### L 503.6030, L100.0100, L500.2500, L500.4100, L502.0250, L503.6550 #### [facility] [address] [place], [address] Urea nitrogen [Mass/Vol] 10 mg/dL Normal 4-[address] [facility] Comment on above: Performed By: #### L 503.6030, L100.0100, L500.2500, L500.4100, L502.0250, L503.6550 #### [facility] [address] [place], [address] Basophil percentageOrdered B y: Red Sandoval on 06-27-2025 Basophils/100 WBC (Bld) 0.7 % 0-1 [facility] CBC W/Diff, Automatedon 06-15 Absolute Lymph 1.04 X10 3/uL Normal 0.83-4.[address] [facility] Comment on above: Performed By: #### L 503.6030, L100.0100, L500.2500, L500.4100, L502.0250, L503.6550 #### [facility] [address] [place], [address] Absolute Neut 4.1 X10 3/uL Normal 2.0-7.[address] [facility] Comment on above: Performed By: #### L 503.6030, L100.0100, L500.2500, L500.4100, L502.0250, L503.6550 #### [facility] [address] [place], [address] Basophils/100 WBC (Bld) 0.7 % Normal 0-1 [facility] Comment on above: Performed By: #### L 503.6030, L100.0100, L500.2500, L500.4100, L502.0250, L503.6550 #### [facility] [address] [place], [address] Eosinophils/100 WBC (Bld) 3.8 % Normal 0-[address] [facility] Comment on above: Performed By: #### L 503.6030, L100.0100, L500.2500, L500.4100, L502.0250, L503.6550 #### [facility] [address] [place], [address] Erythrocyte distribution width (RBC) [Ratio] 13.9 % Normal 11.6-14.[address] [facility] Comment on above: Performed By: #### L 503.6030, L100.0100, L500.2500, L500.4100, L502.0250, L503.6550 #### [facility] [address] [place], [address] Hematocrit (Bld) [Volume fraction] 33.6 % Low 37-[address] [facility] Comment on above: Performed By: #### L 503.6030, L100.0100, L500.2500, L500.4100, L502.0250, L503.6550 #### [facility] [address] [place], [address] Hemoglobin (Bld) [Mass/Vol] 10.7 g/dL Low 12.0-15.[address] [facility] Comment on above: Performed By: #### L 503.6030, L100.0100, L500.2500, L500.4100, L502.0250, L503.6550 #### [facility] [address] [place], [address] IG% 1.000 High 0.0-0.[address] [facility] Comment on above: Result Comment: IG% - Immature Granulocytes (promyelocytes, myelocytes and metamyelocytes) > 1% indicates that a LEFT SHIFT is Present. Performed By: #### L 503.6030, L100.0100, L500.2500, L500.4100, L502.0250, L503.6550 #### [facility] [address] [place], [address] Lymphocytes/100 WBC (Bld) 18.2 % Low 19-[address] [facility] Comment on above: Performed By: #### L 503.6030, L100.0100, L500.2500, L500.4100, L502.0250, L503.6550 #### [facility] [address] [place], [address] MCH (RBC) [Entitic mass] 27.9 pg Normal 27.0-32.[address] [facility] Comment on above: Performed By: #### L 503.6030, L100.0100, L500.2500, L500.4100, L502.0250, L503.6550 #### [facility] [address] [place], [address] MCHC (RBC) [Mass/Vol] 31.8 g/dL Low 32-36 [facility] Comment on above: Performed By: #### L 503.6030, L100.0100, L500.2500, L500.4100, L502.0250, L503.6550 #### [facility] [address] [place], [address] MCV (RBC) [Entitic vol] 87.5 fL Normal 81-99 [facility] Comment on above: Performed By: #### L 503.6030, L100.0100, L500.2500, L500.4100, L502.0250, L503.6550 #### [facility] [address] [place], [address] Monocytes/100 WBC (Bld) 5.2 % Normal 0-10 [facility] Comment on above: Performed By: #### L 503.6030, L100.0100, L500.2500, L500.4100, L502.0250, L503.6550 #### [facility] [address] [place], [address] Neutrophils/100 WBC (Bld) 71.1 % High 47-[address] [facility] Comment on above: Performed By: #### L 503.6030, L100.0100, L500.2500, L500.4100, L502.0250, L503.6550 #### [facility] [address] [place], [address] Nucleated RBC (Bld) [#/Vol] 0 10*3/uL Normal 0-[address] [facility] Comment on above: Performed By: #### L 503.6030, L100.0100, L500.2500, L500.4100, L502.0250, L503.6550 #### [facility] [address] [place], [address] Platelet mean volume (Bld) [Entitic vol] 9.9 fL Normal 6.2-12.[address] [facility] Comment on above: Performed By: #### L 503.6030, L100.0100, L500.2500, L500.4100, L502.0250, L503.6550 #### [facility] [address] [place], [address] Platelets (Bld) [#/Vol] 244 10*3/uL Normal 150-[address] [facility] Comment on above: Performed By: #### L 503.6030, L100.0100, L500.2500, L500.4100, L502.0250, L503.6550 #### [facility] [address] [place], [address] RBC (Bld) [#/Vol] 3.84 10*6/uL Low 4.2-5.4 [facility] Comment on above: Performed By: #### L 503.6030, L100.0100, L500.2500, L500.4100, L502.0250, L503.6550 #### [facility] [address] [place], [address] RDW SD 43.7 fl Normal 35.1-43.[address] [facility] Comment on above: Performed By: #### L 503.6030, L100.0100, L500.2500, L500.4100, L502.0250, L503.6550 #### [facility] [address] [place], [address] WBC (Bld) [#/Vol] 5.7 10*3/uL Normal 4.4-11.0 [facility] Comment on above: Performed By: #### L 503.6030, L100.0100, L500.2500, L500.4100, L502.0250, L503.6550 #### [facility] [address] [place], [place], [id number] Calculated very low density lipoprotein (VLDL) cholesterol measurementOrdered By: Red Sandoval on 06-27-2025 Calculated very low density lipoprotein (VLDL) cholesterol measurement 45 mg/dL High 5-[address] [facility] Carbon dioxide, total [Moles /volume] in Central venous bloodOrdered By: Red Sandoval on 06-27-2025 CO2 [Moles/Vol] 24.2 mmol/L 21.0-32.[address] [facility] Chloride assayOrdered By: Yousuf Sandoval on 06-27-2025 Chloride [Moles/Vol] 98 mmol/L 98-108 [facility] Eosinophil percentageOrdered By: Red Sandoval on 06-27-2025 Eosinophils/100 WBC (Bld) 3.8 % 0-[address] [facility] Erythrocyte distribution wid th ratioOrdered By: Red Sandoval on 06-27-2025 Erythrocyte distribution width (RBC) [Ratio] 13.9 % 11.6-14.[address] [facility] Erythrocyte distribution wid th standard deviationOrdered By: Red Sandoval on 06-27-2025 Erythrocyte distribution width (RBC) [Ratio] 43.7 fl 35.1-43.[address] [facility] Ferritinon 06-27-2025 Ferritin [Mass/Vol] 108 ng/mL Normal 22-378 [facility] Comment on above: Performed By: #### L 503.6030, L100.0100, L500.2500, L500.4100, L502.0250, L503.6550 #### [facility] [address] [facility] [place], [place], [address] Glomerular filtration rate ( GFR) estimation/1.73 sq m using serum, plasma, or whole bOrdered By: Red Sandoval on 06-27-2025 GFR/1.73 sq M.predicted among non-blacks MDRD (S/P/Bld) [Vol rate/Area] 73 mL/min/{1.73_m2} >[address] [facility] Comment on above: mL/min/1.73m2 CKD-EP I Creatinine Equation (2020) Hematocrit Auto (Bld) [Volum e fraction]Ordered By: Red Sandoval on 06-27-2025 Hematocrit (Bld) [Volume fraction] 33.6 % Low 37-[address] [facility] Hemoglobin measurementOrdere d By: Red Sandoval on 06-27-2025 Hemoglobin (Bld) [Mass/Vol] 10.7 g/dL Low 12.0-15.[address] [facility] Immature granulocytes/100 WB C Auto (Bld)Ordered By: Red Sandoval on 06-27-2025 Immature granulocytes/100 WBC (Bld) 1.000 % High 0.0-0.[address] [facility] Comment on above: IG% - Immature Granu locytes (promyelocytes, myelocytes and metamyelocytes) > 1% indicates that a LEFT SHIFT is Present. Iron measurement (mass/mass) Ordered By: Red Sandoval on 06-27-2025 Iron (Unsp spec) [Mass/Mass] 53 ug/dL 50-[address] [facility] Iron+Iron Binding Capacityon 06-27-2025 Iron [Mass/Vol] 53 ug/dL Normal 50-[address] [facility] Comment on above: Performed By: #### L 503.6030, L100.0100, L500.2500, L500.4100, L502.0250, L503.6550 #### [facility] [address] [facility] [address] IRON SATURATION 14.0 Normal 13-[address] [facility] Comment on above: Performed By: #### L 503.6030, L100.0100, L500.2500, L500.4100, L502.0250, L503.6550 #### [facility] [address] [facility] [address] TIBC 377 ug/dL Normal 250-[address] [facility] Comment on above: Performed By: #### L 503.6030, L100.0100, L500.2500, L500.4100, L502.0250, L503.6550 #### [facility] [address] [place], [address] UIBC 324 ug/dL Normal 228-[address] [facility] Comment on above: Performed By: #### L 503.6030, L100.0100, L500.2500, L500.4100, L502.0250, L503.6550 #### [facility] [address] [place], [address] LDL calc ser/plasOrdered By: Red aSndoval on 06-27-2025 Cholesterol in LDL [Mass/Vol] 102 mg/dL [facility] Comment on above: Junkjzzebd=152-122 m g/dL & Higher Axyg=770 mg/dL or greaterFriedwald Equation for LDL-C Lipid Profileon 06-27-2025 CHOL:HDL 5.[address] [facility] Comment on above: Performed By: #### L 503.6030, L100.0100, L500.2500, L500.4100, L502.0250, L503.6550 #### [facility] [address] [place], [place], [id number] (550) Cholesterol [Mass/Vol] 181 mg/dL Normal <=200 [facility] Comment on above: Result Comment: Chol esterol level, Desirable <200 mg/dL Borderline high cholesterol 200-239 mg/dL High cholesterol >=240 mg/dL Recommendations of the NCEP Adult Treatment Panel for the following risk-cutoff thresholds for the [place] population. Performed By: #### L 503.6030, L100.0100, L500.2500, L500.4100, L502.0250, L503.6550 #### [facility] [address] [place], [address] Cholesterol in HDL [Mass/Vol] 34 mg/dL Low [facility] Comment on above: Result Comment: Mayda onal Cholesterol Education Program (NCEP) guidelines: <40 mg/dL: Low HDL-cholesterol (major risk factor for CHD) >= 60 mg/dL: High HDL-cholesterol (negative risk factor for CHD) HDL-cholesterol is affected by a number of factors, e.g. smoking, exercise, hormones, sex and age. Performed By: #### L 503.6030, L100.0100, L500.2500, L500.4100, L502.0250, L503.6550 #### [facility] [address] [place], [address] Cholesterol in LDL [Mass/Vol] 102 mg/dL Normal [facility] Comment on above: Result Comment: Bord heehya=577-834 mg/dL Higher Wvad=394 mg/dL or greater Friedwald Equation for LDL-C Performed By: #### L 503.6030, L100.0100, L500.2500, L500.4100, L502.0250, L503.6550 #### [facility] [address] [place], [address] Cholesterol in VLDL [Mass/Vol] 45 mg/dL High 5-[address] [facility] Comment on above: Performed By: #### L 503.6030, L100.0100, L500.2500, L500.4100, L502.0250, L503.6550 #### [facility] [address] [place], [address] Triglyceride [Mass/Vol] 224 mg/dL High [facility] Comment on above: Result Comment: The drugs N-Acetylcysteine and Metamizole may falsely depress this assay. Normal range: <150 mg/dL Borderline High: 150-199 mg/dL High: 200-499 mg/dL Very High: >500 mg/dL Performed By: #### L 503.6030, L100.0100, L500.2500, L500.4100, L502.0250, L503.6550 #### [facility] [address] [place], [address] MCV (mean corpuscular volume ) determinationOrdered By: Red Sandoval on 06-27-2025 MCV (RBC) [Entitic vol] 87.5 fL 81-99 [facility] Mean corpuscular hemoglobin (MCH) determinationOrdered By: Red Sandoval on 06-27-2025 MCH (RBC) [Entitic mass] 27.9 pg 27.0-32.[address] [facility] Mean corpuscular hemoglobin concentration (MCHC) determinationOrdered By: Red Sandoval on 06-27-2025 MCHC (RBC) [Mass/Vol] 31.8 g/dL Low 32-36 [facility] Mean platelet volume determi nationOrdered By: Red Sandoval on 06-27-2025 Platelet mean volume (Bld) [Entitic vol] 9.9 fL 6.2-12.[address] [facility] Microalb:Creat Ratio,Random URon 06-27-2025 Creatinine [Mass/Vol] 91.20 mg/dL Normal 28.00-217.[address] [facility] Comment on above: Performed By: #### L 503.6030, L100.0100, L500.2500, L500.4100, L502.0250, L503.6550 #### [facility] [address] [place], [place], [id number] (110) MALB:CREAT UNABLE TO CALCULATE Normal <30 mg/g CRE [facility] Comment on above: Performed By: #### L 503.6030, L100.0100, L500.2500, L500.4100, L502.0250, L503.6550 #### [facility] [address] [place], [place], [id number] MICROALBUMIN,UR < 12.0 Normal <20 mg/L [facility] Comment on above: Performed By: #### L 503.6030, L100.0100, L500.2500, L500.4100, L502.0250, L503.6550 #### [facility] [address] [place], [place], [id number] Microalbumin/creat ratio urO rdered By: Red Sandoval on 06-27-2025 Urine microalbumin/creatinine ratio measurement UNABLE TO CALCULATE mg/g CRE <[address] [facility] Monocyte percentageOrdered B y: Red Sandoval on 06-27-2025 Monocytes/100 WBC (Bld) 5.2 % 0-10 [facility] Neutrophil percentageOrdered By: Red Sandoval on 06-27-2025 Neutrophils/100 WBC (Bld) 71.1 % High 47-[address] [facility] No Panel InformationOrdered By: Red Sandoval on 06-27-2025 Unsaturated Iron Binding Capacity 324 ug/dL 228-[address] [facility] Nucleated red blood cell per centageOrdered By: Red Sandoval on 06-27-2025 Nucleated RBC/100 WBC (Bld) [Ratio] 0 % 0-[address] [facility] Platelet countOrdered By: Yousuf Sandoval on 06-27-2025 Platelets (Bld) [#/Vol] 244 10*3/uL 150-[address] [facility] Potassium measurement (mass/ volume)Ordered By: Red Sandoval on 06-27-2025 Potassium (Unsp spec) [Mass/Vol] 3.7 mmol/L 3.3-5.[address] [facility] RBC Auto (Bld) [#/Vol]Ordere d By: Red Sandoval on 06-27-2025 RBC (Bld) [#/Vol] 3.84 10*6/uL Low 4.2-5.4 [facility] Random urine creatinine sandy urement (mass/volume)Ordered By: Red Sandoval on 06-27-2025 Creatinine Unsp time (U) [Mass/Vol] 91.20 mg/dL 28.00-217.[address] [facility] Screening total cholesterol/ high density lipoprotein (HDL) cholesterol ratioOrdered By: Red Sandoval on 06-27-2025 Cholesterol.total/Choles terol in HDL [Mass ratio] 5.31 {ratio} [facility] Serum creatinine measurement (mass/volume)Ordered By: Red Sandoval on 06-27-2025 Creatinine [Mass/Vol] 0.93 mg/dL 0.70-1.20 [facility] Serum glucose measurement (m ass/volume)Ordered By: Red Sandoval on 06-27-2025 Glucose [Mass/Vol] 198 mg/dL High 70-99 [facility] Serum or plasma calcium sandy urement (mass/volume)Ordered By: Red Sandoval on 06-27-2025 Calcium [Mass/Vol] 8.7 mg/dL 7.6-11.0 [facility] Serum or plasma cholesterol in HDL measurement (mass/volume)Ordered By: Red Sandoval on 06-27-2025 Cholesterol in HDL [Mass/Vol] 34 mg/dL Low >[address] [facility] Comment on above: National Cholesterol Education Program (NCEP) guidelines:<40 mg/dL: Low HDL-cholesterol (major risk factor for CHD)>= 60 mg/dL: High HDL-cholesterol (negative risk factor for CHD)HDL-cholesterol is affected by a number of factors, e.g. smoking, exercise, hormones, sex and age. Serum or plasma cholesterol measurement (mass/volume)Ordered By: Red Sandoval on 06-27-2025 Cholesterol [Mass/Vol] 181 mg/dL <201 [facility] Comment on above: Cholesterol level, D esirable <200 mg/dLBorderline high cholesterol 200-239 mg/dLHigh cholesterol >=240 mg/dLRecommendations of the NCEP Adult Treatment Panel for the following risk-cutoff thresholds for the [place] population. Serum or plasma ferritin darrel surement (mass/volume)Ordered By: Red Sandoval on 06-27-2025 Ferritin [Mass/Vol] 108 ng/mL 22-378 [facility] Serum or plasma iron saturat ion measurement (mass fraction)Ordered By: Red Sandoval on 06-27-2025 Iron saturation [Mass fraction] 14.0 % 13-[address] [facility] Serum or plasma urea nitroge n measurement (mass/volume)Ordered By: Red Sandoval on 06-27-2025 Urea nitrogen [Mass/Vol] 10 mg/dL 4-[address] [facility] Sodium levelOrdered By: Red Sandoval on 06-27-2025 Sodium [Moles/Vol] 139 mmol/L 133-145 [facility] Triglycerides measurementOrd ered By: Red Sandoval on 06-27-2025 Triglyceride [Mass/Vol] 224 mg/dL High <199 [facility] Comment on above: The drugs N-Acetylcy steine and Metamizole may falsely depress this assay. Normal range: <150 mg/dLBorderline High: 150-199 mg/dLHigh: 200-499 mg/dLVery High: >500 mg/dL Urine albumin measurement wi detection limit of 20 mg/L or less (mass/volume)Ordered By: Red Sandoval on 06-27-2025 Albumin DL <= 20 mg/L (U) [Mass/Vol] < 12.0 mg/L <20 mg/L [facility] White blood cell (WBC) count Ordered By: Red Sandoval on 06-27-2025 WBC (Bld) [#/Vol] 5.7 10*3/uL 4.4-11.0 [facility] Chest PA and Lateralon 06-15 Chest PA and Lateral [facility] [address], [place] [address] Chest PA and Lateral MR#: [id number] Acct: [id number] Name: HEIDI ANDREWS Rep #: [id number] : 1970 F 55 From: Magdy Bowling PCP: Dr. Red Sandoval MD Status: REG CLI Study: Chest PA and Lateral Date of Exam: 06/15/25 Exam# [id number] Ordering Dr: Nikolai Kim MD PROCEDURE: CHEST [...] evidence of acute cardiopulmonary disease. Reading Location: [place] [address] CC: Dr. Red Sandoval MD; Dr. Nikolai Kim MD Engine Assembler: Signed Normal [facility] Absolute lymphocyte countOrd ered By: Glen Chapman on 06-04-2025 Lymphocytes Auto (Unsp spec) [#/Vol] 1.05 10*3/uL 0.83-4.[address] [facility] Absolute neutrophil countOrd ered By: Glen Chapman on 06-04-2025 Neutrophils (Bld) [#/Vol] 4.4 10*3/uL 2.0-7.[address] [facility] Anion gap in Serum or Plasma Ordered By: Glen Chapman on 06-04-2025 Anion gap [Moles/Vol] 15 mmol/L 5-15 [facility] Automated lymphocyte count a s percentage of total leukocytesOrdered By: Glen Chapman on 06-04-2025 Lymphocytes/100 WBC Auto (Unsp spec) 17.1 % Low 19-[address] [facility] BUN/creatinine ratioOrdered By: Glen Statonrito on 06-04-2025 Urea nitrogen/Creatinine [Mass ratio] 10.3 mg/mg 10-[address] [facility] Basophil percentageOrdered B y: Glen Statonrito on 06-04-2025 Basophils/100 WBC (Bld) 0.5 % 0-1 [facility] Bilirubin, totalOrdered By: Glen Statonrito on 06-04-2025 Bilirubin [Mass/Vol] 0.26 mg/dL 0.00-1.30 [facility] CBC W/Diff, Automatedon 05-16 Absolute Lymph 1.05 X10 3/uL Normal 0.83-4.[address] [facility] Comment on above: Performed By: #### L 503.6030, L100.0100, L500.2500, L500.4100, L502.0250, L503.6550 #### [facility] [address] [place], [address] Absolute Neut 4.4 X10 3/uL Normal 2.0-7.[address] [facility] Comment on above: Performed By: #### L 503.6030, L100.0100, L500.2500, L500.4100, L502.0250, L503.6550 #### [facility] [address] [place], [address] Basophils/100 WBC (Bld) 0.5 % Normal 0-1 [facility] Comment on above: Performed By: #### L 503.6030, L100.0100, L500.2500, L500.4100, L502.0250, L503.6550 #### [facility] [address] [place], [address] Eosinophils/100 WBC (Bld) 4.7 % Normal 0-[address] [facility] Comment on above: Performed By: #### L 503.6030, L100.0100, L500.2500, L500.4100, L502.0250, L503.6550 #### [facility] [address] [place], [address] Erythrocyte distribution width (RBC) [Ratio] 15.2 % High 11.6-14.[address] [facility] Comment on above: Performed By: #### L 503.6030, L100.0100, L500.2500, L500.4100, L502.0250, L503.6550 #### [facility] [address] [place], [address] Hematocrit (Bld) [Volume fraction] 35.0 % Low 37-[address] [facility] Comment on above: Performed By: #### L 503.6030, L100.0100, L500.2500, L500.4100, L502.0250, L503.6550 #### [facility] [address] [place], [address] Hemoglobin (Bld) [Mass/Vol] 11.3 g/dL Low 12.0-15.[address] [facility] Comment on above: Performed By: #### L 503.6030, L100.0100, L500.2500, L500.4100, L502.0250, L503.6550 #### [facility] [address] [place], [address] IG% 1.300 High 0.0-0.[address] [facility] Comment on above: Result Comment: IG% - Immature Granulocytes (promyelocytes, myelocytes and metamyelocytes) > 1% indicates that a LEFT SHIFT is Present. Performed By: #### L 503.6030, L100.0100, L500.2500, L500.4100, L502.0250, L503.6550 #### [facility] [address] [place], [address] Lymphocytes/100 WBC (Bld) 17.1 % Low 19-[address] [facility] Comment on above: Performed By: #### L 503.6030, L100.0100, L500.2500, L500.4100, L502.0250, L503.6550 #### [facility] [address] [place], [address] MCH (RBC) [Entitic mass] 28.0 pg Normal 27.0-32.[address] [facility] Comment on above: Performed By: #### L 503.6030, L100.0100, L500.2500, L500.4100, L502.0250, L503.6550 #### [facility] [address] [place], [address] MCHC (RBC) [Mass/Vol] 32.3 g/dL Normal 32-36 [facility] Comment on above: Performed By: #### L 503.6030, L100.0100, L500.2500, L500.4100, L502.0250, L503.6550 #### [facility] [address] [place], [address] MCV (RBC) [Entitic vol] 86.6 fL Normal 81-99 [facility] Comment on above: Performed By: #### L 503.6030, L100.0100, L500.2500, L500.4100, L502.0250, L503.6550 #### [facility] [address] [place], [address] Monocytes/100 WBC (Bld) 5.5 % Normal 0-10 [facility] Comment on above: Performed By: #### L 503.6030, L100.0100, L500.2500, L500.4100, L502.0250, L503.6550 #### [facility] [address] [place], [address] Neutrophils/100 WBC (Bld) 70.9 % High 47-[address] [facility] Comment on above: Performed By: #### L 503.6030, L100.0100, L500.2500, L500.4100, L502.0250, L503.6550 #### [facility] [address] [place], [address] Nucleated RBC (Bld) [#/Vol] 0 10*3/uL Normal 0-[address] [facility] Comment on above: Performed By: #### L 503.6030, L100.0100, L500.2500, L500.4100, L502.0250, L503.6550 #### [facility] [address] [place], [address] Platelet mean volume (Bld) [Entitic vol] 9.6 fL Normal 6.2-12.[address] [facility] Comment on above: Performed By: #### L 503.6030, L100.0100, L500.2500, L500.4100, L502.0250, L503.6550 #### [facility] [address] [place], [address] Platelets (Bld) [#/Vol] 241 10*3/uL Normal 150-[address] [facility] Comment on above: Performed By: #### L 503.6030, L100.0100, L500.2500, L500.4100, L502.0250, L503.6550 #### [facility] [address] [place], [address] RBC (Bld) [#/Vol] 4.04 10*6/uL Low 4.2-5.4 [facility] Comment on above: Performed By: #### L 503.6030, L100.0100, L500.2500, L500.4100, L502.0250, L503.6550 #### [facility] [address] [place], [address] RDW SD 47.2 fl High 35.1-43.[address] [facility] Comment on above: Performed By: #### L 503.6030, L100.0100, L500.2500, L500.4100, L502.0250, L503.6550 #### [facility] [address] [place], [address] WBC (Bld) [#/Vol] 6.2 10*3/uL Normal 4.4-11.0 [facility] Comment on above: Performed By: #### L 503.6030, L100.0100, L500.2500, L500.4100, L502.0250, L503.6550 #### [facility] [address] [place], [address] CRPon 06-04-2025 C-REACTIVE PROT 23.30 mg/L High 0.0-3.[address] [facility] Comment on above: Performed By: #### L 503.6030, L100.0100, L500.2500, L500.4100, L502.0250, L503.6550 #### [facility] [address] [place], [place], [id number] Carbon dioxide, total [Moles /volume] in Central venous bloodOrdered By: Glen Chapman on 06-04-2025 CO2 [Moles/Vol] 24.0 mmol/L 21.0-32.[address] [facility] Chloride assayOrdered By: Jaimee Chapman on 06-04-2025 Chloride [Moles/Vol] 96 mmol/L Low 98-108 [facility] Comprehensive Metabolic Prof ilon 06-04-2025 Albumin [Mass/Vol] 4.2 g/dL Normal 3.5-5.0 [facility] Comment on above: Performed By: #### L 503.6030, L100.0100, L500.2500, L500.4100, L502.0250, L503.6550 #### [facility] [address] [place], [address] Albumin/Globulin [Mass ratio] 1.6 {ratio} Normal 0.9-2.[address] [facility] Comment on above: Performed By: #### L 503.6030, L100.0100, L500.2500, L500.4100, L502.0250, L503.6550 #### [facility] [address] [place], [address] ALK PHOS 83 U/L Normal 35-[address] [facility] Comment on above: Performed By: #### L 503.6030, L100.0100, L500.2500, L500.4100, L502.0250, L503.6550 #### [facility] [address] [place], [address] ALT [Catalytic activity/Vol] 12 U/L Normal <=[address] [facility] Comment on above: Performed By: #### L 503.6030, L100.0100, L500.2500, L500.4100, L502.0250, L503.6550 #### [facility] [address] [place], [address] AST [Catalytic activity/Vol] 17 U/L Normal <=[address] [facility] Comment on above: Performed By: #### L 503.6030, L100.0100, L500.2500, L500.4100, L502.0250, L503.6550 #### [facility] [address] [place], [address] Bilirubin [Mass/Vol] 0.26 mg/dL Normal 0.00-1.30 [facility] Comment on above: Performed By: #### L 503.6030, L100.0100, L500.2500, L500.4100, L502.0250, L503.6550 #### [facility] [address] [place], [address] BUN/CRE 10.3 RATIO Normal 10-[address] [facility] Comment on above: Performed By: #### L 503.6030, L100.0100, L500.2500, L500.4100, L502.0250, L503.6550 #### [facility] [address] [place], [address] Calcium [Mass/Vol] 9.1 mg/dL Normal 7.6-11.0 [facility] Comment on above: Performed By: #### L 503.6030, L100.0100, L500.2500, L500.4100, L502.0250, L503.6550 #### [facility] [address] [place], [address] Chloride [Moles/Vol] 96 mmol/L Low 98-108 [facility] Comment on above: Performed By: #### L 503.6030, L100.0100, L500.2500, L500.4100, L502.0250, L503.6550 #### [facility] [address] [place], [address] CO2 [Moles/Vol] 24.0 mmol/L Normal 21.0-32.[address] [facility] Comment on above: Performed By: #### L 503.6030, L100.0100, L500.2500, L500.4100, L502.0250, L503.6550 #### [facility] [address] [place], [address] Creatinine [Mass/Vol] 0.83 mg/dL Normal 0.70-1.20 [facility] Comment on above: Performed By: #### L 503.6030, L100.0100, L500.2500, L500.4100, L502.0250, L503.6550 #### [facility] [address] [place], [address] ECRCL 104.65 ml/min Normal 50-[address] [facility] Comment on above: Performed By: #### L 503.6030, L100.0100, L500.2500, L500.4100, L502.0250, L503.6550 #### [facility] [address] [place], [address] GAP 15 Normal 5-[address] [facility] Comment on above: Performed By: #### L 503.6030, L100.0100, L500.2500, L500.4100, L502.0250, L503.6550 #### [facility] [address] [place], [address] GFR/1.73 sq M.predicted among non-blacks MDRD (S/P/Bld) [Vol rate/Area] 84 mL/min/{1.73_m2} Normal >[address] [facility] Comment on above: Result Comment: mL/m in/1.73m2 CKD-EPI Creatinine Equation (2020) Performed By: #### L 503.6030, L100.0100, L500.2500, L500.4100, L502.0250, L503.6550 #### [facility] [address] [place], [address] Globulin (S) [Mass/Vol] 2.7 g/dL Normal 2.2-4.2 [facility] Comment on above: Performed By: #### L 503.6030, L100.0100, L500.2500, L500.4100, L502.0250, L503.6550 #### [facility] [address] [place], [address] Glucose [Mass/Vol] 283 mg/dL High 70-99 [facility] Comment on above: Performed By: #### L 503.6030, L100.0100, L500.2500, L500.4100, L502.0250, L503.6550 #### [facility] [address] [place], [address] Potassium [Moles/Vol] 3.7 mmol/L Normal 3.3-5.1 [facility] Comment on above: Performed By: #### L 503.6030, L100.0100, L500.2500, L500.4100, L502.0250, L503.6550 #### [facility] [address] [place], [address] Sodium [Moles/Vol] 135 mmol/L Normal 133-145 [facility] Comment on above: Performed By: #### L 503.6030, L100.0100, L500.2500, L500.4100, L502.0250, L503.6550 #### [facility] [address] [place], [address] T PROT 6.9 g/dL Normal 5.9-8.[address] [facility] Comment on above: Performed By: #### L 503.6030, L100.0100, L500.2500, L500.4100, L502.0250, L503.6550 #### [facility] [address] [place], [address] Urea nitrogen [Mass/Vol] 9 mg/dL Normal 4-[address] [facility] Comment on above: Performed By: #### L 503.6030, L100.0100, L500.2500, L500.4100, L502.0250, L503.6550 #### [facility] [address] [place], [address] Eosinophil percentageOrdered By: Glen Chapman on 06-04-2025 Eosinophils/100 WBC (Bld) 4.7 % 0-[address] [facility] Erythrocyte Sed Rateon 06-04 SED RATE 18 mm/hr Normal 0-[address] [facility] Comment on above: Performed By: #### L 503.6030, L100.0100, L500.2500, L500.4100, L502.0250, L503.6550 #### [facility] [address] [place], [place], [address] Erythrocyte distribution wid th ratioOrdered By: Glen Chapman on 06-04-2025 Erythrocyte distribution width (RBC) [Ratio] 15.2 % High 11.6-14.[address] [facility] Erythrocyte distribution wid th standard deviationOrdered By: Glen Chapman on 06-04-2025 Erythrocyte distribution width (RBC) [Ratio] 47.2 fl High 35.1-43.[address] [facility] Erythrocyte sedimentation ra teOrdered By: Glen Chapman on 06-04-2025 ESR (Bld) [Velocity] 18 mm/h 0-30 [facility] Ferritinon 06-04-2025 Ferritin [Mass/Vol] 76 ng/mL Normal 22-378 [facility] Comment on above: Performed By: #### L 503.6030, L100.0100, L500.2500, L500.4100, L502.0250, L503.6550 #### [facility] [address] [place], [place], [id number] Glomerular filtration rate ( GFR) estimation/1.73 sq m using serum, plasma, or whole bOrdered By: Glen Chapman on 06-04-2025 GFR/1.73 sq M.predicted among non-blacks MDRD (S/P/Bld) [Vol rate/Area] 84 mL/min/{1.73_m2} >[address] [facility] Comment on above: mL/min/1.73m2 CKD-EP I Creatinine Equation (2020) Hematocrit Auto (Bld) [Volum e fraction]Ordered By: Glen Chapman on 06-04-2025 Hematocrit (Bld) [Volume fraction] 35.0 % Low 37-[address] [facility] Hemoglobin measurementOrdere d By: Glen Chapman on 06-04-2025 Hemoglobin (Bld) [Mass/Vol] 11.3 g/dL Low 12.0-15.[address] [facility] Immature granulocytes/100 WB C Auto (Bld)Ordered By: Glen Chapman on 06-04-2025 Immature granulocytes/100 WBC (Bld) 1.300 % High 0.0-0.[address] [facility] Comment on above: IG% - Immature Granu locytes (promyelocytes, myelocytes and metamyelocytes) > 1% indicates that a LEFT SHIFT is Present. Iron measurement (mass/mass) Ordered By: Glen Chapman on 06-04-2025 Iron (Unsp spec) [Mass/Mass] 57 ug/dL 50-[address] [facility] Iron+Iron Binding Capacityon 06-04-2025 Iron [Mass/Vol] 57 ug/dL Normal 50-[address] [facility] Comment on above: Performed By: #### L 503.6030, L100.0100, L500.2500, L500.4100, L502.0250, L503.6550 #### [facility] [address] [place], [address] IRON SATURATION 14.0 Normal 13-[address] [facility] Comment on above: Performed By: #### L 503.6030, L100.0100, L500.2500, L500.4100, L502.0250, L503.6550 #### [facility] [address] [place], [address] TIBC 395 ug/dL Normal 250-[address] [facility] Comment on above: Performed By: #### L 503.6030, L100.0100, L500.2500, L500.4100, L502.0250, L503.6550 #### [facility] [address] [place], [address] UIBC 338 ug/dL Normal 228-[address] [facility] Comment on above: Performed By: #### L 503.6030, L100.0100, L500.2500, L500.4100, L502.0250, L503.6550 #### [facility] [address] [place], [address] LDHon 06-04-2025 LDH 167 U/L Normal 84-[address] [facility] Comment on above: Order Comment: 1 Performed By: #### L 503.6030, L100.0100, L500.2500, L500.4100, L502.0250, L503.6550 #### [facility] [address] [place], [place], [address] Laboratory - Chemistry and C hemistry - challengeOrdered By: Glen Chapman on 06-04-2025 AST [Catalytic activity/Vol] 17 U/L <[address] [facility] Lactate dehydrogenase (LDH) measurementOrdered By: Glen Chapman on 06-04-2025 LDH [Catalytic activity/Vol] 167 U/L 84-[address] [facility] MCV (mean corpuscular volume ) determinationOrdered By: Glen Chapman on 06-04-2025 MCV (RBC) [Entitic vol] 86.6 fL 81-99 [facility] Magnesiumon 06-04-2025 Magnesium [Mass/Vol] 1.5 mg/dL Normal 1.5-2.2 [facility] Comment on above: Performed By: #### L 503.6030, L100.0100, L500.2500, L500.4100, L502.0250, L503.6550 #### [facility] [address] [place], [place], [address] Magnesium measurement (mass/ volume)Ordered By: Glen Chapman on 06-04-2025 Magnesium (Unsp spec) [Mass/Vol] 1.5 mg/dL 1.5-2.[address] [facility] Mean corpuscular hemoglobin (MCH) determinationOrdered By: Glen Chapman on 06-04-2025 MCH (RBC) [Entitic mass] 28.0 pg 27.0-32.[address] [facility] Mean corpuscular hemoglobin concentration (MCHC) determinationOrdered By: Glen Chapman on 06-04-2025 MCHC (RBC) [Mass/Vol] 32.3 g/dL 32-36 [facility] Mean platelet volume determi nationOrdered By: Glen Chapman on 06-04-2025 Platelet mean volume (Bld) [Entitic vol] 9.6 fL 6.2-12.[address] [facility] Monocyte percentageOrdered B y: Glen Chapman on 06-04-2025 Monocytes/100 WBC (Bld) 5.5 % 0-10 [facility] Neutrophil percentageOrdered By: Glen Chapman on 06-04-2025 Neutrophils/100 WBC (Bld) 70.9 % High 47-[address] [facility] No Panel InformationOrdered By: Glen Chapman on 06-04-2025 Unsaturated Iron Binding Capacity 338 ug/dL 228-[address] [facility] Nucleated red blood cell per centageOrdered By: Glen Chapman on 06-04-2025 Nucleated RBC/100 WBC (Bld) [Ratio] 0 % 0-[address] [facility] Oncology Visit Reporton 05-16 On[address] [facility] [address] [place] [address] OFFICE VISIT Date of Service: 06/04/25 1109 MR#: [id number] Acct: [id number] Name: HEIDI ANDREWS Rep #: [id number] : 1970 From: Glen Chapman MD Age/Sex: 55/F Location[place] [facility] [place] Status: Signed HPI Subjective Date of Service [...] spouse current occupational status: employed current occupation: [employer] Smoking Status: Former smoker alcohol intake: never [...] anemia, unspe (more content not included)... Normal [facility] Phosphoruson 06-04-2025 Phosphate [Mass/Vol] 2.4 mg/dL Low 2.7-4.5 [facility] Comment on above: Performed By: #### L 503.6030, L100.0100, L500.2500, L500.4100, L502.0250, L503.6550 #### [facility] [address] [place], [address] Platelet countOrdered By: Jaimee Chapman on 06-04-2025 Platelets (Bld) [#/Vol] 241 10*3/uL 150-[address] [facility] Potassium measurement (mass/ volume)Ordered By: Glen Chapman on 06-04-2025 Potassium (Unsp spec) [Mass/Vol] 3.7 mmol/L 3.3-5.[address] [facility] RBC Auto (Bld) [#/Vol]Ordere d By: Glen Chapman on 06-04-2025 RBC (Bld) [#/Vol] 4.04 10*6/uL Low 4.2-5.4 [facility] Serum creatinine measurement (mass/volume)Ordered By: Glen Chapman on 06-04-2025 Creatinine [Mass/Vol] 0.83 mg/dL 0.70-1.20 [facility] Serum globulin measurementOr dered By: Glen Chapman on 06-04-2025 Globulin (S) [Mass/Vol] 2.7 g/dL 2.2-4.2 [facility] Serum glucose measurement (m ass/volume)Ordered By: Glen Chapman on 06-04-2025 Glucose [Mass/Vol] 283 mg/dL High 70-99 [facility] Serum or plasma C reactive p rotein measurement (mass/volume)Ordered By: Glen Chapman on 06-04-2025 CRP [Mass/Vol] 23.30 mg/L High 0.0-3.[address] [facility] Serum or plasma alanine cueto otransferase (ALT) measurementOrdered By: Glen Chapman on 06-04-2025 ALT [Catalytic activity/Vol] 12 U/L <[address] [facility] Serum or plasma albumin sandy urement (mass/volume)Ordered By: Glen Chapman on 06-04-2025 Albumin [Mass/Vol] 4.2 g/dL 3.5-5.0 [facility] Serum or plasma albumin/glob ulin mass ratioOrdered By: Glen Chapman on 06-04-2025 Albumin/Globulin [Mass ratio] 1.6 {ratio} 0.9-2.[address] [facility] Serum or plasma alkaline rebecca sphatase measurementOrdered By: Glen Chapman on 06-04-2025 ALP [Catalytic activity/Vol] 83 U/L 35-[address] [facility] Serum or plasma calcium sandy urement (mass/volume)Ordered By: Glen Chapman on 06-04-2025 Calcium [Mass/Vol] 9.1 mg/dL 7.6-11.0 [facility] Serum or plasma ferritin darrel surement (mass/volume)Ordered By: Glen Chapman on 06-04-2025 Ferritin [Mass/Vol] 76 ng/mL 22-378 [facility] Serum or plasma iron saturat ion measurement (mass fraction)Ordered By: Glen Chapman on 06-04-2025 Iron saturation [Mass fraction] 14.0 % 13-[address] [facility] Serum or plasma urea nitroge n measurement (mass/volume)Ordered By: Glen Chapman on 06-04-2025 Urea nitrogen [Mass/Vol] 9 mg/dL 4-[address] [facility] Sodium levelOrdered By: Cy Chapman on 06-04-2025 Sodium [Moles/Vol] 135 mmol/L 133-145 [facility] Total proteinOrdered By: Vasquez Chapman on 06-04-2025 Protein [Mass/Vol] 6.9 g/dL 5.9-8.4 [facility] Vitamin B12on 06-04-2025 Cobalamin (Vitamin B12) [Mass/Vol] 416 pg/mL Normal 180-[address] [facility] Comment on above: Performed By: #### L 503.6030, L100.0100, L500.2500, L500.4100, L502.0250, L503.6550 #### [facility] [address] [place], [address] Vitamin B12 ser/plasOrdered By: Glen Chapman on 06-04-2025 Cobalamin (Vitamin B12) [Mass/Vol] 416 pg/mL 180-[address] [facility] White blood cell (WBC) count Ordered By: Glen Chapman on 06-04-2025 WBC (Bld) [#/Vol] 6.2 10*3/uL 4.4-11.0 [facility] Absolute lymphocyte countOrd ered By: Glen Chapman on 05-07-2025 Lymphocytes Auto (Unsp spec) [#/Vol] 1.11 10*3/uL 0.83-4.[address] [facility] Absolute neutrophil countOrd ered By: Glen Chapman on 05-07-2025 Neutrophils (Bld) [#/Vol] 2.9 10*3/uL 2.0-7.[address] [facility] Automated lymphocyte count a s percentage of total leukocytesOrdered By: Glen Chapman on 05-07-2025 Lymphocytes/100 WBC Auto (Unsp spec) 23.9 % 19-[address] [facility] Basophil percentageOrdered B y: Glen Chapman on 05-07-2025 Basophils/100 WBC (Bld) 0.4 % 0-1 [facility] CBC W/Diff, Automatedon 04-16 Absolute Lymph 1.11 X10 3/uL Normal 0.83-4.[address] [facility] Comment on above: Performed By: #### L 503.6030, L100.0100, L500.2500, L500.4100, L502.0250, L503.6550 #### [facility] [address] [place], [address] Absolute Neut 2.9 X10 3/uL Normal 2.0-7.[address] [facility] Comment on above: Performed By: #### L 503.6030, L100.0100, L500.2500, L500.4100, L502.0250, L503.6550 #### [facility] [address] [place], [address] Basophils/100 WBC (Bld) 0.4 % Normal 0-1 [facility] Comment on above: Performed By: #### L 503.6030, L100.0100, L500.2500, L500.4100, L502.0250, L503.6550 #### [facility] [address] [place], [address] Eosinophils/100 WBC (Bld) 6.3 % High 0-[address] [facility] Comment on above: Performed By: #### L 503.6030, L100.0100, L500.2500, L500.4100, L502.0250, L503.6550 #### [facility] [address] [place], [address] Erythrocyte distribution width (RBC) [Ratio] 19.2 % High 11.6-14.[address] [facility] Comment on above: Performed By: #### L 503.6030, L100.0100, L500.2500, L500.4100, L502.0250, L503.6550 #### [facility] [address] [place], [address] Hematocrit (Bld) [Volume fraction] 33.0 % Low 37-[address] [facility] Comment on above: Performed By: #### L 503.6030, L100.0100, L500.2500, L500.4100, L502.0250, L503.6550 #### [facility] [address] [place], [address] Hemoglobin (Bld) [Mass/Vol] 10.3 g/dL Low 12.0-15.[address] [facility] Comment on above: Performed By: #### L 503.6030, L100.0100, L500.2500, L500.4100, L502.0250, L503.6550 #### [facility] [address] [place], [address] IG% 1.100 High 0.0-0.[address] [facility] Comment on above: Result Comment: IG% - Immature Granulocytes (promyelocytes, myelocytes and metamyelocytes) > 1% indicates that a LEFT SHIFT is Present. Performed By: #### L 503.6030, L100.0100, L500.2500, L500.4100, L502.0250, L503.6550 #### [facility] [address] [place], [address] Lymphocytes/100 WBC (Bld) 23.9 % Normal 19-[address] [facility] Comment on above: Performed By: #### L 503.6030, L100.0100, L500.2500, L500.4100, L502.0250, L503.6550 #### [facility] [address] [place], [address] MCH (RBC) [Entitic mass] 28.0 pg Normal 27.0-32.[address] [facility] Comment on above: Performed By: #### L 503.6030, L100.0100, L500.2500, L500.4100, L502.0250, L503.6550 #### [facility] [address] [place], [address] MCHC (RBC) [Mass/Vol] 31.2 g/dL Low 32-36 [facility] Comment on above: Performed By: #### L 503.6030, L100.0100, L500.2500, L500.4100, L502.0250, L503.6550 #### [facility] [address] [place], [address] MCV (RBC) [Entitic vol] 89.7 fL Normal 81-99 [facility] Comment on above: Performed By: #### L 503.6030, L100.0100, L500.2500, L500.4100, L502.0250, L503.6550 #### [facility] [address] [place], [address] Monocytes/100 WBC (Bld) 6.9 % Normal 0-10 [facility] Comment on above: Performed By: #### L 503.6030, L100.0100, L500.2500, L500.4100, L502.0250, L503.6550 #### [facility] [address] [place], [address] Neutrophils/100 WBC (Bld) 61.4 % Normal 47-[address] [facility] Comment on above: Performed By: #### L 503.6030, L100.0100, L500.2500, L500.4100, L502.0250, L503.6550 #### [facility] [address] [place], [address] Nucleated RBC (Bld) [#/Vol] 0 10*3/uL Normal 0-[address] [facility] Comment on above: Performed By: #### L 503.6030, L100.0100, L500.2500, L500.4100, L502.0250, L503.6550 #### [facility] [address] [place], [address] Platelet mean volume (Bld) [Entitic vol] 9.3 fL Normal 6.2-12.[address] [facility] Comment on above: Performed By: #### L 503.6030, L100.0100, L500.2500, L500.4100, L502.0250, L503.6550 #### [facility] [address] [place], [address] Platelets (Bld) [#/Vol] 232 10*3/uL Normal 150-[address] [facility] Comment on above: Performed By: #### L 503.6030, L100.0100, L500.2500, L500.4100, L502.0250, L503.6550 #### [facility] [address] [place], [address] RBC (Bld) [#/Vol] 3.68 10*6/uL Low 4.2-5.4 [facility] Comment on above: Performed By: #### L 503.6030, L100.0100, L500.2500, L500.4100, L502.0250, L503.6550 #### [facility] [address] [place], [address] RDW SD 63.7 fl High 35.1-43.[address] [facility] Comment on above: Performed By: #### L 503.6030, L100.0100, L500.2500, L500.4100, L502.0250, L503.6550 #### [facility] [address] [place], [address] WBC (Bld) [#/Vol] 4.6 10*3/uL Normal 4.4-11.0 [facility] Comment on above: Performed By: #### L 503.6030, L100.0100, L500.2500, L500.4100, L502.0250, L503.6550 #### [facility] [address] [place], [address] Eosinophil percentageOrdered By: Glen Ari on 05-07-2025 Eosinophils/100 WBC (Bld) 6.3 % High 0-[address] [facility] Erythrocyte distribution wid th ratioOrdered By: Gillespie Ari on 05-07-2025 Erythrocyte distribution width (RBC) [Ratio] 19.2 % High 11.6-14.[address] [facility] Erythrocyte distribution wid th standard deviationOrdered By: [facility] on 05-07-2025 Erythrocyte distribution width (RBC) [Ratio] 63.7 fl High 35.1-43.[address] [facility] Ferritinon 05-07-2025 Ferritin [Mass/Vol] 90 ng/mL Normal 22-378 [facility] Comment on above: Performed By: #### L 503.6030, L100.0100, L500.2500, L500.4100, L502.0250, L503.6550 #### [facility] [address] [place], [place], [id number] Hematocrit Auto (Bld) [Volum e fraction]Ordered By: Glen Chapman on 05-07-2025 Hematocrit (Bld) [Volume fraction] 33.0 % Low 37-[address] [facility] Hemoglobin measurementOrdere d By: Glen Chapman on 05-07-2025 Hemoglobin (Bld) [Mass/Vol] 10.3 g/dL Low 12.0-15.[address] [facility] Immature granulocytes/100 WB C Auto (Bld)Ordered By: Glen Chapman on 05-07-2025 Immature granulocytes/100 WBC (Bld) 1.100 % High 0.0-0.[address] [facility] Comment on above: IG% - Immature Granu locytes (promyelocytes, myelocytes and metamyelocytes) > 1% indicates that a LEFT SHIFT is Present. Iron measurement (mass/mass) Ordered By: Glen Chapman on 05-07-2025 Iron (Unsp spec) [Mass/Mass] 57 ug/dL 50-[address] [facility] Iron+Iron Binding Capacityon 05-07-2025 Iron [Mass/Vol] 57 ug/dL Normal 50-[address] [facility] Comment on above: Performed By: #### L 503.6030, L100.0100, L500.2500, L500.4100, L502.0250, L503.6550 #### [facility] [address] [place], [address] IRON SATURATION 14.0 Normal 13-[address] [facility] Comment on above: Performed By: #### L 503.6030, L100.0100, L500.2500, L500.4100, L502.0250, L503.6550 #### [facility] [address] [place], [address] TIBC 392 ug/dL Normal 250-[address] [facility] Comment on above: Performed By: #### L 503.6030, L100.0100, L500.2500, L500.4100, L502.0250, L503.6550 #### [facility] [address] [place], [address] UIBC 335 ug/dL Normal 228-[address] [facility] Comment on above: Performed By: #### L 503.6030, L100.0100, L500.2500, L500.4100, L502.0250, L503.6550 #### [facility] [address] [place], [address] LDHon 05-07-2025 LDH 132 U/L Normal 84-[address] [facility] Comment on above: Order Comment: 1 Performed By: #### L 503.6030, L100.0100, L500.2500, L500.4100, L502.0250, L503.6550 #### [facility] [address] [place], [address] Lactate dehydrogenase (LDH) measurementOrdered By: Glen Chapman on 05-07-2025 LDH [Catalytic activity/Vol] 132 U/L 84-[address] [facility] MCV (mean corpuscular volume ) determinationOrdered By: Glen Chapman on 05-07-2025 MCV (RBC) [Entitic vol] 89.7 fL 81-99 [facility] Magnesiumon 05-07-2025 Magnesium [Mass/Vol] 1.3 mg/dL Low 1.5-2.2 [facility] Comment on above: Performed By: #### L 503.6030, L100.0100, L500.2500, L500.4100, L502.0250, L503.6550 #### [facility] [address] [facility] [place], [address] Magnesium measurement (mass/ volume)Ordered By: Glen Chapman on 05-07-2025 Magnesium (Unsp spec) [Mass/Vol] 1.3 mg/dL Low 1.5-2.[address] [facility] Mean corpuscular hemoglobin (MCH) determinationOrdered By: Glen Chapman on 05-07-2025 MCH (RBC) [Entitic mass] 28.0 pg 27.0-32.[address] [facility] Mean corpuscular hemoglobin concentration (MCHC) determinationOrdered By: Glen Chapman on 05-07-2025 MCHC (RBC) [Mass/Vol] 31.2 g/dL Low 32-36 [facility] Mean platelet volume determi nationOrdered By: Glen Chapman on 05-07-2025 Platelet mean volume (Bld) [Entitic vol] 9.3 fL 6.2-12.[address] [facility] Monocyte percentageOrdered B y: Glen Chapman on 05-07-2025 Monocytes/100 WBC (Bld) 6.9 % 0-10 [facility] Neutrophil percentageOrdered By: Glen Chapman on 05-07-2025 Neutrophils/100 WBC (Bld) 61.4 % 47-[address] [facility] No Panel InformationOrdered By: Glen Chapman on 05-07-2025 Unsaturated Iron Binding Capacity 335 ug/dL 228-[address] [facility] Nucleated red blood cell per centageOrdered By: Glen Chapman on 05-07-2025 Nucleated RBC/100 WBC (Bld) [Ratio] 0 % 0-[address] [facility] Oncology Visit Reporton 04-16 Oncology Visit Report [facility] [place] [address] [place] [address] OFFICE VISIT Date of Service: 05/07/25825 MR#: [id number] Acct: [id number] Name: HEIDI ANDREWS Rep #: [id number] : 1970 From: Glen Chapman MD Age/Sex: 55/F Location[place] [facility] [place] Status: Signed HPI Subjective Date of Service [...] 03/29/2025. Comes for follow up. Feels better. 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 Normal [facility] Phosphoruson 05-07-2025 Phosphate [Mass/Vol] 2.6 mg/dL Low 2.7-4.5 [facility] Comment on above: Performed By: #### L 503.6030, L100.0100, L500.2500, L500.4100, L502.0250, L503.6550 #### [facility] [address] [place], [place], [id number] Platelet countOrdered By: Jaimee Chapman on 05-07-2025 Platelets (Bld) [#/Vol] 232 10*3/uL 150-[address] [facility] RBC Auto (Bld) [#/Vol]Ordere d By: Glen Chapman on 05-07-2025 RBC (Bld) [#/Vol] 3.68 10*6/uL Low 4.2-5.4 [facility] Serum or plasma ferritin darrel surement (mass/volume)Ordered By: Glen Chapman on 05-07-2025 Ferritin [Mass/Vol] 90 ng/mL 22-378 [facility] Serum or plasma iron saturat ion measurement (mass fraction)Ordered By: Glen Chapman on 05-07-2025 Iron saturation [Mass fraction] 14.0 % 13-[address] [facility] Vitamin B12on 05-07-2025 Cobalamin (Vitamin B12) [Mass/Vol] 152 pg/mL Low 180-[address] [facility] Comment on above: Performed By: #### L 503.6030, L100.0100, L500.2500, L500.4100, L502.0250, L503.6550 #### [facility] [address] [facility] [place], [address] Vitamin B12 ser/plasOrdered By: Glen Chapman on 05-07-2025 Cobalamin (Vitamin B12) [Mass/Vol] 152 pg/mL Low 180-[address] [facility] White blood cell (WBC) count Ordered By: Glen Chapman on 05-07-2025 WBC (Bld) [#/Vol] 4.6 10*3/uL 4.4-11.0 [facility] Cardiovascular stress test r eportOrdered By: John Damian on 04-17-[address] [facility] [address] [place] [address] MR#: [id number] Acct: [id number] Name: HEIDI ANDREWS Rep #: [id number] : 1970 55 From: John Damian MD [...] of 66%. This note was generated with [employer] software. It may contain incorrectwords, spelling, and punctuation that were not noted in checking the note beforesigning. 04/17/25928 Date _ John Damian MD CC: Dr. Red Sandoval MD ~ Date Dictated: 04/17/25925 Date Transcribed: 04/17/25925 Engine Assembler: MARY Smith [facility] Work Phone: Stress Reporton 04-17-2025 Stress Report [facility] Cardiovascular Services [address] [place] [address] MR#: [id number] Acct: [id number] Name: HEIDI ANDREWS Rep #: [id number] : 1970 55 From: John Damian MD [...] of 66%. This note was generated with [employer] dictation software. It may contain incorrect words, spelling, and punctuation that were not noted in checking the note before signing. 04/17/25928 Date John Damian MD CC: Dr. Red Sandoval MD Date Dictated: 04/17/25925 Date Transcribed: 04/17/25925 Engine Assembler: MARY Signed Normal [facility] Absolute lymphocyte countOrd ered By: Red Sandoval on 03-29-2025 Lymphocytes Auto (Unsp spec) [#/Vol] 0.95 10*3/uL 0.83-4.[address] [facility] Absolute neutrophil countOrd ered By: Red Sandoval on 03-29-2025 Neutrophils (Bld) [#/Vol] 4.6 10*3/uL 2.0-7.[address] [facility] Automated lymphocyte count a s percentage of total leukocytesOrdered By: Red Sandoval on 03-29-2025 Lymphocytes/100 WBC Auto (Unsp spec) 15.0 % Low 19-[address] [facility] Basophil percentageOrdered B y: Red Sanodval on 03-29-2025 Basophils/100 WBC (Bld) 0.3 % 0-1 [facility] Blood polychromasia detectio n by light microscopyOrdered By: Red Sandoval on 03-29-2025 Polychromasia LM Ql (Bld) 1+ [facility] CBC W/Diff, Automatedon 03-15 Anisocytosis Ql (Bld) 2+ Normal [facility] Comment on above: Performed By: #### L 503.6030, L100.0100, L500.2500, L500.4100, L502.0250, L503.6550 #### [facility] [address] [place], [address] POLYCHROMASIA 1+ Normal [facility] Comment on above: Performed By: #### L 503.6030, L100.0100, L500.2500, L500.4100, L502.0250, L503.6550 #### [facility] [address] [place], [address] Eosinophil percentageOrdered By: Red Sandoval on 03-29-2025 Eosinophils/100 WBC (Bld) 3.9 % 0-[address] [facility] Erythrocyte distribution wid th ratioOrdered By: Red Sandoval on 03-29-2025 Erythrocyte distribution width (RBC) [Ratio] 27.1 % High 11.6-14.[address] [facility] Erythrocyte distribution wid th standard deviationOrdered By: Red Sandoval on 03-29-2025 Erythrocyte distribution width (RBC) [Ratio] 81.7 fl High 35.1-43.[address] [facility] Hematocrit Auto (Bld) [Volum e fraction]Ordered By: Red Sandoval on 03-29-2025 Hematocrit (Bld) [Volume fraction] 31.9 % Low 37-[address] [facility] Hemoglobin measurementOrdere d By: Red Sandoval on 03-29-2025 Hemoglobin (Bld) [Mass/Vol] 9.2 g/dL Low 12.0-15.[address] [facility] Immature granulocytes/100 WB C Auto (Bld)Ordered By: Red Sandoval on 03-29-2025 Immature granulocytes/100 WBC (Bld) 1.100 % High 0.0-0.[address] [facility] Comment on above: IG% - Immature Granu locytes (promyelocytes, myelocytes and metamyelocytes) > 1% indicates that a LEFT SHIFT is Present. Laboratory - Hematology and Cell countsOrdered By: Red Sandoval on 03-29-2025 Anisocytosis Ql (Bld) 2+ [facility] MCV (mean corpuscular volume ) determinationOrdered By: Red Sandoval on 03-29-2025 MCV (RBC) [Entitic vol] 84.2 fL 81-99 [facility] Mean corpuscular hemoglobin (MCH) determinationOrdered By: Red Sandoval on 03-29-2025 MCH (RBC) [Entitic mass] 24.3 pg Low 27.0-32.[address] [facility] Mean corpuscular hemoglobin concentration (MCHC) determinationOrdered By: Red Sandoval on 03-29-2025 MCHC (RBC) [Mass/Vol] 28.8 g/dL Low 32-36 [facility] Mean platelet volume determi nationOrdered By: Red Sandoval on 03-29-2025 Platelet mean volume (Bld) [Entitic vol] 9.6 fL 6.2-12.[address] [facility] Monocyte percentageOrdered B y: Red Sandoval on 03-29-2025 Monocytes/100 WBC (Bld) 7.1 % 0-10 [facility] Neutrophil percentageOrdered By: Red Sandoval on 03-29-2025 Neutrophils/100 WBC (Bld) 72.6 % High 47-[address] [facility] Nucleated red blood cell per centageOrdered By: Red Sandoval on 03-29-2025 Nucleated RBC/100 WBC (Bld) [Ratio] 0 % 0-[address] [facility] Platelet countOrdered By: Yousuf Sandoval on 03-29-2025 Platelets (Bld) [#/Vol] 263 10*3/uL 150-[address] [facility] RBC Auto (Bld) [#/Vol]Ordere d By: Red Sandoval on 03-29-2025 RBC (Bld) [#/Vol] 3.79 10*6/uL Low 4.2-5.4 [facility] White blood cell (WBC) count Ordered By: Red Sandoval on 03-29-2025 WBC (Bld) [#/Vol] 6.3 10*3/uL 4.4-11.0 [facility] Celiac AB,Comprehensiveon ANTIGLIADIN IGA 2 units Normal 0-[address] [facility] Comment on above: Result Comment: Nega tive 0 - 19 Weak Positive 20 - 30 Moderate to Strong Positive >30 Performed By: #### L 503.6030, L100.0100, L500.2500, L500.4100, L502.0250, L503.6550 #### [facility] [address] [place], [address] ANTIGLIADIN IGG 2 units Normal 0-[address] [facility] Comment on above: Result Comment: Nega tive 0 - 19 Weak Positive 20 - 30 Moderate to Strong Positive >30 Performed By: #### L 503.6030, L100.0100, L500.2500, L500.4100, L502.0250, L503.6550 #### [facility] [address] [place], [place], [address] ENDOMYSIAL IGA Negative Normal Negative [facility] Comment on above: Performed By: #### L 503.6030, L100.0100, L500.2500, L500.4100, L502.0250, L503.6550 #### [facility] [address] [place], [address] IMMUNOGLOB A QN 57 mg/dL Low 87-[address] [facility] Comment on above: Result Comment: Perf ormed at: [facility] [address] [id number] [employer]: Preston Ashley PhD, Phone: [phone] Performed By: #### L 503.6030, L100.0100, L500.2500, L500.4100, L502.0250, L503.6550 #### [facility] [address] [place], [address] tTG IGA <2 Normal 0-[address] [facility] Comment on above: Result Comment: Nega tive 0 - 3 Weak Positive 4 - 10 Positive >10 Tissue Transglutaminase (tTG) has been identified as the endomysial antigen. Studies have demonstr- ated that endomysial IgA antibodies have over 99% specificity for gluten sensitive enteropathy. Performed By: #### L 503.6030, L100.0100, L500.2500, L500.4100, L502.0250, L503.6550 #### [facility] [address] [place], [address] tTG IGG 3 U/mL Normal 0-[address] [facility] Comment on above: Result Comment: Nega tive 0 - 5 Weak Positive 6 - 9 Positive >9 Performed By: #### L 503.6030, L100.0100, L500.2500, L500.4100, L502.0250, L503.6550 #### [facility] [address] [place], [place], [address] Folates, (Folic Acid)on 02-14 FOLATES 5.36 ng/mL Normal 4.60-34.[address] [facility] Comment on above: Order Comment: ADD O N FROM EARLIER TODAY, THANKS FOLATES AND B12 N Performed By: #### L 503.0106, L506.0250 #### [facility] [address] [place], [place], [address] No Panel InformationOrdered By: Glen Chapman on 03-08-2025 Tissue Transglutaminase IgG Ab 3 U/mL 0-[address] [facility] Comment on above: Negative 0 - 5 Weak Positive 6 - 9 Positive >9 Oncology Visit Reporton 02-14 Oncology Visit Report [facility] [address] [place] [address] OFFICE VISIT Date of Service: 03/08/25 08 MR#: [id number] Acct: [id number] Name: HEIDI ANDREWS Rep #: [id number] : 1970 From: Glen Chapman MD Age/Sex: 55/F Location[place] [facility] [place] Status: Signed HPI Subjective Date of Service 03/08/25 Chief Complaint Referred for Iron deficiency anemia. History of Present Illness 55 y.o.woman presented to PCP with SOB, fatigue, palpitations, she was found to Microcytic anemia with negative stool for occult blood on 03/05/2025. She is referred for management. Feels tired. Colonoscopy in Nov 2022 was negative. [facility] Medical History (Updated 03/08/25 @ 09:09 by [...] current occupational status: employed 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 Smoking Status: Former smoker alcohol intake: never [...] no lymphadenopathy (more content not included)... Normal [facility] Serum tissue transglutaminas e (tTG) IgA antibody assay (units/volume)Ordered By: Glen Chapman on 03-08-2025 tTG IgA Qn (S) <2 U/mL 0-[address] [facility] Comment on above: Negative 0 - 3 Weak Positive 4 - 10 Positive >10 Tissue Transglutaminase (tTG) has been identified as the endomysial antigen. Studies have demonstr- ated that endomysial IgA antibodies have over 99% specificity for gluten sensitive enteropathy. Vitamin B12on 03-08-2025 Cobalamin (Vitamin B12) [Mass/Vol] 184 pg/mL Normal 180-[address] [facility] Comment on above: Order Comment: ADD O N FROM EARLIER TODAY, THANKS FOLATES AND B12 Performed By: #### L 503.0106, L506.0250 #### [facility] [address] [place], [address] Vitamin B12 ser/plasOrdered By: Glen Chapman on 03-08-2025 Cobalamin (Vitamin B12) [Mass/Vol] 184 pg/mL 180-[address] [facility] Ferritinon 03-05-2025 Ferritin [Mass/Vol] 13 ng/mL Low 22-378 [facility] Comment on above: Order Comment: Order Date: 03/02/25Order Info: [id number] - FEOrder Info: [id number] - FERComments: Low iron Performed By: #### L 503.6030, L100.0100, L500.2500, L500.4100, L502.0250, L503.6550 #### [facility] [address] [place], [address] Ironon 03-05-2025 Iron [Mass/Vol] 33 ug/dL Low 50-[address] [facility] Comment on above: Order Comment: Order Date: 03/02/25Order Info: [id number] - FEOrder Info: [id number] - FERComments: Low ironLow Iron Performed By: #### L 503.6030, L100.0100, L500.2500, L500.4100, L502.0250, L503.6550 #### [facility] [address] [place], [address] Iron (Unsp spec) [Mass/Mass] Ordered By: Red Sandoval on 03-05-2025 Iron [Mass/Vol] 33 ug/dL Low 50-[address] [facility] Iron measurement (mass/mass) Ordered By: Red Sandoval on 03-05-2025 Iron (Unsp spec) [Mass/Mass] 33 ug/dL Low 50-[address] [facility] Serum or plasma ferritin darrel surement (mass/volume)Ordered By: Red Sandoval on 03-05-2025 Ferritin [Mass/Vol] 13 ng/mL Low 22-378 [facility] PROLACTIN 4465on 03-03-2025 PROLACTIN 62.0 ng/mL High 3.6-25.[address] [facility] Comment on above: Result Comment: Perf ormed at: [facility] [address] [id number] [place], [place] [id number] [employer]: Preston Ashley PhD, Phone: [phone] Performed By: #### L 503.6030, L100.0100, L500.2500, L500.4100, L502.0250, L503.6550 #### [facility] [address] [place], [address] Absolute lymphocyte countOrd ered By: Red Sandoval on 03-01-2025 Lymphocytes Auto (Unsp spec) [#/Vol] 0.63 10*3/uL Low 0.83-4.[address] [facility] Absolute neutrophil countOrd ered By: Red Sandoval on 03-01-2025 Neutrophils (Bld) [#/Vol] 3.7 10*3/uL 2.0-7.[address] [facility] Anion gap in Serum or Plasma Ordered By: Red Sandoval on 03-01-2025 Anion gap [Moles/Vol] 14 mmol/L 5-15 [facility] Automated lymphocyte count a s percentage of total leukocytesOrdered By: Red Sandoval on 03-01-2025 Lymphocytes/100 WBC Auto (Unsp spec) 12.6 % Low 19-[address] [facility] BUN/creatinine ratioOrdered By: Red Sandoval on 03-01-2025 Urea nitrogen/Creatinine [Mass ratio] 11.5 mg/mg 10-[address] [facility] Basophil percentageOrdered B y: Red Sandoval on 03-01-2025 Basophils/100 WBC (Bld) 0.4 % 0-1 [facility] Bilirubin, totalOrdered By: Red Sandoval on 03-01-2025 Bilirubin [Mass/Vol] 0.57 mg/dL 0.00-1.30 [facility] CBC W/Diff, Automatedon 04- Anisocytosis Ql (Bld) 2+ Normal [facility] Comment on above: Performed By: #### L 503.6030, L100.0100, L500.2500, L500.4100, L502.0250, L503.6550 #### [facility] [address] [place], [address] HYPOCHROMASIA 1+ Normal [facility] Comment on above: Performed By: #### L 503.6030, L100.0100, L500.2500, L500.4100, L502.0250, L503.6550 #### [facility] [address] [place], [address] PLT EST ADEQUATE Normal ADEQ [facility] Comment on above: Performed By: #### L 503.6030, L100.0100, L500.2500, L500.4100, L502.0250, L503.6550 #### [facility] [address] [facility] [place], [address] Calculated very low density lipoprotein (VLDL) cholesterol measurementOrdered By: Red Sandoval on 03-01-2025 Calculated very low density lipoprotein (VLDL) cholesterol measurement 27 mg/dL 5-[address] [facility] VLDL Cholesterol 27 mg/dL -[address] [facility] Carbon dioxide, total [Moles /volume] in Central venous bloodOrdered By: Red Sandoval on 03-01-2025 CO2 [Moles/Vol] 25.1 mmol/L 21.0-32.[address] [facility] Chloride assayOrdered By: Yousuf Sandoval on 03-01-2025 Chloride [Moles/Vol] 99 mmol/L 98-108 [facility] Comprehensive Metabolic Prof ilon 03-01-2025 Albumin [Mass/Vol] 4.2 g/dL Normal 3.5-5.0 [facility] Comment on above: Order Comment: DR.MA BAILEY GETS RESULTS FOR CBCDCMPLIPID ANDPROLACTIN DR. SANDOVAL GETS RESULTS FOR CBCD BMP ANDTROPNIN Performed By: #### L 503.6030, L100.0100, L500.2500, L500.4100, L502.0250, L503.6550 #### [facility] [address] [place], [address] Albumin/Globulin [Mass ratio] 1.6 {ratio} Normal 0.9-2.[address] [facility] Comment on above: Order Comment: DR.MA BAILEY GETS RESULTS FOR CBCDCMPLIPID ANDPROLACTIN DR. SANDOVAL GETS RESULTS FOR CBCD BMP ANDTROPNIN Performed By: #### L 503.6030, L100.0100, L500.2500, L500.4100, L502.0250, L503.6550 #### [facility] [address] [place], [address] ALK PHOS 190 U/L High 35-[address] [facility] Comment on above: Order Comment: DR.MA BAILEY GETS RESULTS FOR CBCDCMPLIPID ANDPROLACTIN DR. SANDOVAL GETS RESULTS FOR CBCD BMP ANDTROPNIN Performed By: #### L 503.6030, L100.0100, L500.2500, L500.4100, L502.0250, L503.6550 #### [facility] [address] [place], [address] ALT [Catalytic activity/Vol] 67 U/L High <=[address] [facility] Comment on above: Order Comment: DR.MA BAILEY GETS RESULTS FOR CBCDCMPLIPID ANDPROLACTIN DR. SANDOVAL GETS RESULTS FOR CBCD BMP ANDTROPNIN Performed By: #### L 503.6030, L100.0100, L500.2500, L500.4100, L502.0250, L503.6550 #### [facility] [address] [place], [address] AST [Catalytic activity/Vol] 86 U/L High <=[address] [facility] Comment on above: Order Comment: DR.MA BAILEY GETS RESULTS FOR CBCDCMPLIPID ANDPROLACTIN DR. SANDOVAL GETS RESULTS FOR CBCD BMP ANDTROPNIN Performed By: #### L 503.6030, L100.0100, L500.2500, L500.4100, L502.0250, L503.6550 #### [facility] [address] [place], [address] Bilirubin [Mass/Vol] 0.57 mg/dL Normal 0.00-1.30 [facility] Comment on above: Order Comment: DR.MA BAILEY GETS RESULTS FOR CBCDCMPLIPID ANDPROLACTIN DR. SANDOVAL GETS RESULTS FOR CBCD BMP ANDTROPNIN Performed By: #### L 503.6030, L100.0100, L500.2500, L500.4100, L502.0250, L503.6550 #### [facility] [address] [place], [address] BUN/CRE 11.5 RATIO Normal 10-[address] [facility] Comment on above: Order Comment: DR.MA BAILEY GETS RESULTS FOR CBCDCMPLIPID ANDPROLACTIN DR. SANDOVAL GETS RESULTS FOR CBCD BMP ANDTROPNIN Performed By: #### L 503.6030, L100.0100, L500.2500, L500.4100, L502.0250, L503.6550 #### [facility] [address] [facility] [place], [address] Calcium [Mass/Vol] 8.9 mg/dL Normal 7.6-11.0 [facility] Comment on above: Order Comment: DR.MA BAILEY GETS RESULTS FOR CBCDCMPLIPID ANDPROLACTIN DR. SANDOVAL GETS RESULTS FOR CBCD BMP ANDTROPNIN Performed By: #### L 503.6030, L100.0100, L500.2500, L500.4100, L502.0250, L503.6550 #### [facility] [address] [place], [address] Chloride [Moles/Vol] 99 mmol/L Normal 98-108 [facility] Comment on above: Order Comment: DR.MA BAILEY GETS RESULTS FOR CBCDCMPLIPID ANDPROLACTIN DR. SANDOVAL GETS RESULTS FOR CBCD BMP ANDTROPNIN Performed By: #### L 503.6030, L100.0100, L500.2500, L500.4100, L502.0250, L503.6550 #### [facility] [address] [place], [address] CO2 [Moles/Vol] 25.1 mmol/L Normal 21.0-32.[address] [facility] Comment on above: Order Comment: DR.MA BAILEY GETS RESULTS FOR CBCDCMPLIPID ANDPROLACTIN DR. SANDOVAL GETS RESULTS FOR CBCD BMP ANDTROPNIN Performed By: #### L 503.6030, L100.0100, L500.2500, L500.4100, L502.0250, L503.6550 #### [facility] [address] [place], [address] Creatinine [Mass/Vol] 1.04 mg/dL Normal 0.70-1.20 [facility] Comment on above: Order Comment: DR.MA BAILEY GETS RESULTS FOR CBCDCMPLIPID ANDPROLACTIN DR. SANDOVAL GETS RESULTS FOR CBCD BMP ANDTROPNIN Performed By: #### L 503.6030, L100.0100, L500.2500, L500.4100, L502.0250, L503.6550 #### [facility] [address] [place], [address] GAP 14 Normal 5-[address] [facility] Comment on above: Order Comment: DR.MA BAILEY GETS RESULTS FOR CBCDCMPLIPID ANDPROLACTIN DR. SANDOVAL GETS RESULTS FOR CBCD BMP ANDTROPNIN Performed By: #### L 503.6030, L100.0100, L500.2500, L500.4100, L502.0250, L503.6550 #### [facility] [address] [place], [address] GFR/1.73 sq M.predicted among non-blacks MDRD (S/P/Bld) [Vol rate/Area] 64 mL/min/{1.73_m2} Normal >[address] [facility] Comment on above: Order Comment: DR.MA BAILEY GETS RESULTS FOR CBCDCMPLIPID ANDPROLACTIN DR. SANDOVAL GETS RESULTS FOR CBCD BMP ANDTROPNIN Result Comment: mL/m in/1.73m2 CKD-EPI Creatinine Equation (2020) Performed By: #### L 503.6030, L100.0100, L500.2500, L500.4100, L502.0250, L503.6550 #### [facility] [address] [place], [address] Globulin (S) [Mass/Vol] 2.6 g/dL Normal 2.2-4.2 [facility] Comment on above: Order Comment: DR.MA BAILEY GETS RESULTS FOR CBCDCMPLIPID ANDPROLACTIN DR. SANDOVAL GETS RESULTS FOR CBCD BMP ANDTROPNIN Performed By: #### L 503.6030, L100.0100, L500.2500, L500.4100, L502.0250, L503.6550 #### [facility] [address] [place], [address] Glucose [Mass/Vol] 158 mg/dL High 70-99 [facility] Comment on above: Order Comment: DR.MA BAILEY GETS RESULTS FOR CBCDCMPLIPID ANDPROLACTIN DR. SANDOVAL GETS RESULTS FOR CBCD BMP ANDTROPNIN Performed By: #### L 503.6030, L100.0100, L500.2500, L500.4100, L502.0250, L503.6550 #### [facility] [address] [place], [address] Potassium [Moles/Vol] 4.2 mmol/L Normal 3.3-5.1 [facility] Comment on above: Order Comment: DR.MA BAILEY GETS RESULTS FOR CBCDCMPLIPID ANDPROLACTIN DR. SANDOVAL GETS RESULTS FOR CBCD BMP ANDTROPNIN Performed By: #### L 503.6030, L100.0100, L500.2500, L500.4100, L502.0250, L503.6550 #### [facility] [address] [place], [address] Sodium [Moles/Vol] 138 mmol/L Normal 133-145 [facility] Comment on above: Order Comment: DR.MA BAILEY GETS RESULTS FOR CBCDCMPLIPID ANDPROLACTIN DR. SANDOVAL GETS RESULTS FOR CBCD BMP ANDTROPNIN Performed By: #### L 503.6030, L100.0100, L500.2500, L500.4100, L502.0250, L503.6550 #### [facility] [address] [facility] [place], [address] T PROT 6.8 g/dL Normal 5.9-8.[address] [facility] Comment on above: Order Comment: DR.MA BAILEY GETS RESULTS FOR CBCDCMPLIPID ANDPROLACTIN DR. SANDOVAL GETS RESULTS FOR CBCD BMP ANDTROPNIN Performed By: #### L 503.6030, L100.0100, L500.2500, L500.4100, L502.0250, L503.6550 #### [facility] [address] [facility] [place], [address] Urea nitrogen [Mass/Vol] 12 mg/dL Normal 4-[address] [facility] Comment on above: Order Comment: DR.MA BAILEY GETS RESULTS FOR CBCDCMPLIPID ANDPROLACTIN DR. SANDOVAL GETS RESULTS FOR CBCD BMP ANDTROPNIN Performed By: #### L 503.6030, L100.0100, L500.2500, L500.4100, L502.0250, L503.6550 #### [facility] [address] [place], [address] Eosinophil percentageOrdered By: Red Sandoval on 03-01-2025 Eosinophils/100 WBC (Bld) 4.0 % 0-[address] [facility] Erythrocyte distribution wid th (RBC) [Ratio]Ordered By: Red Sandoval on 03-01-2025 Erythrocyte distribution width (RBC) [Entitic vol] 55.5 fL High 35.1-43.[address] [facility] Erythrocyte distribution wid th ratioOrdered By: Red Sandoval on 03-01-2025 Erythrocyte distribution width (RBC) [Ratio] 20.9 % High 11.6-14.[address] [facility] Erythrocyte distribution wid th standard deviationOrdered By: Red Sandoval on 03-01-2025 Erythrocyte distribution width (RBC) [Ratio] 55.5 fl High 35.1-43.[address] [facility] GFR/1.73 sq M.predicted sonny g non-blacks MDRD (S/P/Bld) [Vol rate/Area]Ordered By: Red Sandoval on 03-01-2025 Estimated GFR (MDRD) Non-Af Amer [address] >[address] [facility] Comment on above: mL/min/1.73m2 CKD-EP I Creatinine Equation (2020) Glomerular filtration rate ( GFR) estimation/1.73 sq m using serum, plasma, or whole bOrdered By: Red Sandoval on 03-01-2025 GFR/1.73 sq M.predicted among non-blacks MDRD (S/P/Bld) [Vol rate/Area] 64 mL/min/{1.73_m2} >[address] [facility] Comment on above: mL/min/1.73m2 CKD-EP I Creatinine Equation (2020) Hematocrit Auto (Bld) [Volum e fraction]Ordered By: Red Sandoval on 03-01-2025 Hematocrit (Bld) [Volume fraction] 26.7 % Low 37-[address] [facility] Hemoglobin A1con 03-01-2025 HbA1c (Bld) [Mass fraction] 7.6 % High <=5.[address] [facility] Comment on above: Result Comment: Norm al < 5.7 % Prediabetic 5.7 - 6.4 % Diabetic >or= 6.5 % Please note range changes. Performed By: #### L 503.6030, L100.0100, L500.2500, L500.4100, L502.0250, L503.6550 #### [facility] [address] [place], [address] Hemoglobin A1c percentageOrd ered By: Red Sandoval on 03-01-2025 HbA1c (Bld) [Mass fraction] 7.6 % High <5.[address] [facility] Comment on above: Normal < 5.7 % Predi abetic 5.7 - 6.4 % Diabetic >or= 6.5 % Please note range changes. Hemoglobin measurementOrdere d By: Red Sandoval on 03-01-2025 Hemoglobin (Bld) [Mass/Vol] 7.2 g/dL Low 12.0-15.[address] [facility] Hypochromatic red blood cell detectionOrdered By: Red Sandoval on 03-01-2025 Hypochromia Ql (Bld) 1+ [facility] Hypochromia Ql (Bld)Ordered By: Red Sandoval on 03-01-2025 Hypochromasia 1+ [facility] Immature granulocytes/100 WB C Auto (Bld)Ordered By: Red Sandoval on 03-01-2025 Immature granulocytes/100 WBC (Bld) 1.200 % High 0.0-0.[address] [facility] Comment on above: IG% - Immature Granu locytes (promyelocytes, myelocytes and metamyelocytes) > 1% indicates that a LEFT SHIFT is Present. L501.4021on 03-01-2025 Trop T High Sen 14 ng/L Normal <=[address] [facility] Comment on above: Order Comment: DR.MA BAILEY GETS RESULTS FOR CBCDCMPLIPID ANDPROLACTIN DR. SANDOVAL GETS RESULTS FOR CBCD BMP ANDTROPNIN Performed By: #### L 503.6030, L100.0100, L500.2500, L500.4100, L502.0250, L503.6550 #### [facility] [address] [place], [address] LDL calc ser/plasOrdered By: Red Sandoval on 03-01-2025 Cholesterol in LDL [Mass/Vol] 117 mg/dL [facility] Comment on above: Eddizvhgus=228-509 m g/dL & Higher Vssd=804 mg/dL or greater LDL Cholesterol, Calculated 117 mg/dL [facility] Comment on above: Mmmdzqodwq=845-366 m g/dL & Higher Hvrb=580 mg/dL or greater Laboratory - Chemistry and C hemistry - challengeOrdered By: Red Sandoval on 03-01-2025 AST [Catalytic activity/Vol] 86 U/L High <[address] [facility] - Hematology and Cell countsOrdered By: Red Sandoval on 03-01-2025 Anisocytosis Ql (Bld) 2+ [facility] Lipid Profileon 03-01-2025 CHOL:HDL 3.[address] [facility] Comment on above: Order Comment: DR.MA BAILEY GETS RESULTS FOR CBCDCMPLIPID ANDPROLACTIN DR. SANDOVAL GETS RESULTS FOR CBCD BMP ANDTROPNIN Performed By: #### L 503.6030, L100.0100, L500.2500, L500.4100, L502.0250, L503.6550 #### [facility] [address] [place], [address] Cholesterol [Mass/Vol] 194 mg/dL Normal <=200 [facility] Comment on above: Order Comment: DR.MA BAILEY GETS RESULTS FOR CBCDCMPLIPID ANDPROLACTIN DR. SANDOVAL GETS RESULTS FOR CBCD BMP ANDTROPNIN Result Comment: Chol esterol level, Desirable <200 mg/dL Borderline high cholesterol 200-239 mg/dL High cholesterol >=240 mg/dL Recommendations of the NCEP Adult Treatment Panel for the following risk-cutoff thresholds for the [place] population. Performed By: #### L 503.6030, L100.0100, L500.2500, L500.4100, L502.0250, L503.6550 #### [facility] [address] [place], [address] Cholesterol in HDL [Mass/Vol] 50 mg/dL Normal [facility] Comment on above: Order Comment: DR.MA [...] 503.6030, L100.0100, L500.2500, L500.4100, L502.0250, L503.6550 #### [facility] [address] [place], [address] Cholesterol in LDL [Mass/Vol] 117 mg/dL Normal [facility] Comment on above: Order Comment: DR.MA BAILEY GETS RESULTS FOR CBCDCMPLIPID ANDPROLACTIN DR. SANDOVAL GETS RESULTS FOR CBCD BMP ANDTROPNIN Result Comment: Bord vubkkj=356-364 mg/dL Higher Ayex=343 mg/dL or greater Performed By: #### L 503.6030, L100.0100, L500.2500, L500.4100, L502.0250, L503.6550 #### [facility] [address] [place], [address] Cholesterol in VLDL [Mass/Vol] 27 mg/dL Normal 5-[address] [facility] Comment on above: Order Comment: DR.MA BAILEY GETS RESULTS FOR CBCDCMPLIPID ANDPROLACTIN DR. SANDOVAL GETS RESULTS FOR CBCD BMP ANDTROPNIN Performed By: #### L 503.6030, L100.0100, L500.2500, L500.4100, L502.0250, L503.6550 #### [facility] [address] [place], [address] Triglyceride [Mass/Vol] 134 mg/dL Normal [facility] Comment on above: Order Comment: DR.MA BAILEY GETS RESULTS FOR CBCDCMPLIPID ANDPROLACTIN DR. SANDOVAL GETS RESULTS FOR CBCD BMP ANDTROPNIN Result Comment: The drugs N-Acetylcysteine and Metamizole may falsely depress this assay. Normal range: <150 mg/dL Borderline High: 150-199 mg/dL High: 200-499 mg/dL Very High: >500 mg/dL Performed By: #### L 503.6030, L100.0100, L500.2500, L500.4100, L502.0250, L503.6550 #### [facility] [address] [place], [address] Lymphocytes Auto (Unsp spec) [#/Vol]Ordered By: Red Sandoval on 03-01-2025 Lymphocytes (Bld) [#/Vol] 0.63 10*3/uL Low 0.83-4.[address] [facility] Lymphocytes/100 WBC Auto (Un sp spec)Ordered By: Red Sandoval on 03-01-2025 Lymphocytes/100 WBC (Bld) 12.6 % Low 19-[address] [facility] MCV (mean corpuscular volume ) determinationOrdered By: Red Sandoval on 03-01-2025 MCV (RBC) [Entitic vol] 75.4 fL Low 81-99 [facility] Mean corpuscular hemoglobin (MCH) determinationOrdered By: Red Sandoval on 03-01-2025 MCH (RBC) [Entitic mass] 20.3 pg Low 27.0-32.[address] [facility] Mean corpuscular hemoglobin concentration (MCHC) determinationOrdered By: Red Sandoval on 03-01-2025 MCHC (RBC) [Mass/Vol] 27.0 g/dL Low 32-36 [facility] Mean platelet volume determi nationOrdered By: Red Sandoval on 03-01-2025 Platelet mean volume (Bld) [Entitic vol] 10.5 fL 6.2-12.[address] [facility] Monocyte percentageOrdered B y: Red Sandoval on 03-01-2025 Monocytes/100 WBC (Bld) 8.0 % 0-10 [facility] Neutrophil percentageOrdered By: Red Sandoval on 03-01-2025 Neutrophils/100 WBC (Bld) 73.8 % High 47-[address] [facility] Nucleated red blood cell per centageOrdered By: Red Sandoval on 03-01-2025 Nucleated RBC/100 WBC (Bld) [Ratio] 0 % 0-[address] [facility] Platelet countOrdered By: Yousuf Sandoval on 03-01-2025 Platelet Count See comment 150-[address] [facility] Comment on above: Please note: For [...] 03-01-2025 Platelets LM Ql (Bld) ADEQUATE ADEQ [facility] Platelets LM Ql (Bld)Ordered By: Red Sandoval on 03-01-2025 Platelet Estimate ADEQUATE ADEQ [facility] Potassium (Unsp spec) [Mass/ Vol]Ordered By: Red Sandoval on 03-01-2025 Potassium [Moles/Vol] 4.2 mmol/L 3.3-5.1 [facility] Potassium measurement (mass/ volume)Ordered By: Red Sandoval on 03-01-2025 Potassium (Unsp spec) [Mass/Vol] 4.2 mmol/L 3.3-5.[address] [facility] Prolactin [Mass/Vol]Ordered By: Red Sandoval on 03-01-2025 Prolactin 62.0 ng/mL High 3.6-25.[address] [facility] Comment on above: Performed at: [address] Director: Preston Ashley PhD, Phone: [phone] RBC Auto (Bld) [#/Vol]Ordere d By: Red Sandoval on 03-01-2025 RBC (Bld) [#/Vol] 3.54 10*6/uL Low 4.2-5.4 [facility] Screening total cholesterol/ high density lipoprotein (HDL) cholesterol ratioOrdered By: Red Sandoval on 03-01-2025 Cholesterol.total/Choles terol in HDL [Mass ratio] 3.89 {ratio} [facility] Serum creatinine measurement (mass/volume)Ordered By: Red Sandoval on 03-01-2025 Creatinine [Mass/Vol] 1.04 mg/dL 0.70-1.20 [facility] Serum globulin measurementOr dered By: Red Sandoval on 03-01-2025 Globulin (S) [Mass/Vol] 2.6 g/dL 2.2-4.2 [facility] Serum glucose measurement (m ass/volume)Ordered By: Red Sandoval on 03-01-2025 Glucose [Mass/Vol] 158 mg/dL High 70-99 [facility] Serum or plasma alanine cueto otransferase (ALT) measurementOrdered By: Red Sandoval on 03-01-2025 ALT [Catalytic activity/Vol] 67 U/L High <[address] [facility] Serum or plasma albumin sandy urement (mass/volume)Ordered By: Red Sandoval on 03-01-2025 Albumin [Mass/Vol] 4.2 g/dL 3.5-5.0 [facility] Serum or plasma albumin/glob ulin mass ratioOrdered By: Red Sandoval on 03-01-2025 Albumin/Globulin [Mass ratio] 1.6 {ratio} 0.9-2.[address] [facility] Serum or plasma alkaline rebecca sphatase measurementOrdered By: Red Sandoval on 03-01-2025 ALP [Catalytic activity/Vol] 190 U/L High 35-[address] [facility] Serum or plasma calcium sandy urement (mass/volume)Ordered By: Red Sandoval on 03-01-2025 Calcium [Mass/Vol] 8.9 mg/dL 7.6-11.0 [facility] Serum or plasma cholesterol in HDL measurement (mass/volume)Ordered By: Red Sandoval on 03-01-2025 Cholesterol in HDL [Mass/Vol] 50 mg/dL >[address] [facility] Comment on above: National Cholesterol Education Program (NCEP) guidelines:<40 mg/dL: Low HDL-cholesterol (major risk factor for CHD)>= 60 mg/dL: High HDL-cholesterol (negative risk factor for CHD)HDL-cholesterol is affected by a number of factors, e.g. smoking, exercise, hormones, sex and age. Serum or plasma cholesterol measurement (mass/volume)Ordered By: Red Sandoval on 03-01-2025 Cholesterol [Mass/Vol] 194 mg/dL <201 [facility] Comment on above: Cholesterol level, D esirable <200 mg/dLBorderline high cholesterol 200-239 mg/dLHigh cholesterol >=240 mg/dLRecommendations of the NCEP Adult Treatment Panel for the following risk-cutoff thresholds for the [place] population. Serum or plasma prolactin me asurement (mass/volume)Ordered By: Red Sandoval on 03-01-2025 Prolactin [Mass/Vol] 62.0 ng/mL High 3.6-25.2 [facility] Comment on above: Performed at: [address] [id number] Director: Preston Ashley PhD, Phone: [phone] Serum or plasma urea nitroge n measurement (mass/volume)Ordered By: Red Sandoval on 03-01-2025 Urea nitrogen [Mass/Vol] 12 mg/dL 4-[address] [facility] Sodium levelOrdered By: Red Sandoval on 03-01-2025 Sodium [Moles/Vol] 138 mmol/L 133-145 [facility] Total proteinOrdered By: Senait Sandoval on 03-01-2025 Protein [Mass/Vol] 6.8 g/dL 5.9-8.4 [facility] Triglycerides measurementOrd ered By: Red Sandoval on 03-01-2025 Triglyceride [Mass/Vol] 134 mg/dL <199 [facility] Comment on above: The drugs N-Acetylcy steine and Metamizole may falsely depress this assay. Normal range: <150 mg/dLBorderline High: 150-199 mg/dLHigh: 200-499 mg/dLVery High: >500 mg/dL Troponin T.cardiac High sens itivity method [Mass/Vol]Ordered By: Red Sandoval on 03-01-2025 Troponin T High Sensitivity 14 ng/L <[address] [facility] Troponin T.cardiac [Mass/vol ume] in Serum or Plasma by High sensitivity methodOrdered By: Red Sandoval on 03-01-2025 Troponin T.cardiac High sensitivity method [Mass/Vol] 14 ng/L <[address] [facility] White blood cell (WBC) count Ordered By: Red Sandoval on 03-01-2025 WBC (Bld) [#/Vol] 5.0 10*3/uL 4.4-11.0 [facility] Urgent Care Visit Reporton 1 12-08-2023 Urgent Care Visit Report [facility] [address] , [address] [place] [address] OFFICE VISIT Date of Service: 10/08/24 MR#: [id number] Acct: [id number] Name: HEIDI ANDREWS Rep #: [id number] : 1970 Provider: DELILAH hansen Age/Sex: 54/F Location: [facility] Status: Signed Intake Vital Signs 12/01/22 09:27 [...] (Updated 10/08/24 @ 08:54 by Enrique Hwang SHRINKING MACHINE OPERATOR, SHRINKING MACHINE OPERATOR-C) Wears glasses Thyroid disease Diabetes Anemia Former [...] moist mu (more content not included)... Normal [facility] Cervical or vagninal specime n microscopic examination by cytology stain (reported asOrdered By: Patricia Thompson on 02-07-2024 Cytology report Cyto stain Doc (Cvx/Vag) Comment . [facility] Comment on above: The Pap smear [...] DNA Probe+sig amp Ql (Cvx) Negative Negative [facility] Comment on above: This nucleic acid am plification test detects fourteen high-risk HPV types (16,18,31,33,35,39,45,51,52,56,58,59,66,68)without differentiation.Performed at: [address] [id number] Director: Cierra Chew MD, Phone: [phone] at: =[address] [id number] Director: Cierra Chew MD, Phone: [phone] Laboratory - CytologyOrdered By: Patricia Thompson on 02-07-2024 [employer]ary [employer] Cyto stain Nom (Cvx/Vag) [ID] Comment . [facility] Comment on above: Pema Kincaid, Cyto technologist (ASCP) Laboratory - Miscellaneous t estsOrdered By: Patricia Thompson on 02-07-2024 Service comment (Unsp spec) [Interp] . . [facility] Thin prep Papanicolaou smear with manual screeningOrdered By: Patricia Thopmson on 02-07-2024 Thin prep Papanicolaou smear with manual screening Comment . [facility] Comment on above: NEGATIVE FOR INTRAEP ITHELIAL LESION OR MALIGNANCY. This liquid based Th inPrep(R) pap test was screened withthe use of an image guided system. Basophil percentageOrdered B y: Red Sandoval on 01-19-2024 Chloride [Moles/Vol] 104 mmol/L 98-107 [facility] Cholesterol [Mass/Vol] 197 mg/dL <200 [facility] Comment on above: <200 mg/dL Desirable 200-240 mg/dL Borderline >240 mg/dL High Risk Glucose [Mass/Vol] 108 mg/dL 74-106 [facility] Comment on above: Fasting Glucose resu lt from 100 to 125 mg/dL suggests IMPAIRED HOMEOSTASIS per A.D.A. criteria. Potassium [Moles/Vol] 4.2 mmol/L 3.5-5.1 [facility] Sodium [Moles/Vol] 136 mmol/L 136-145 [facility] Triglyceride [Mass/Vol] 132 mg/dL <199 [facility] Comment on above: The drugs N-Acetylcy steine and Metamizole may falsely depress this assay.Serum Triglycerides Reference Interval Normal <150 mg/dL Borderline high 150 - 199 mg/dL High 200 - 499 mg/dL Very High > or = 500 mg/dL Laboratory - Chemistry and C hemistry - challengeOrdered By: Red Sandoval on 01-19-2024 Cholesterol in HDL [Mass/Vol] 43 mg/dL >[address] [facility] Comment on above: The drugs N-Acetylcy steine and Metamizole may falsely depress this assay. Reference Range HDL <40 mg/dL Low HDL Cholesterol HDL >or= 60 mg/dL High HDL Cholesterol Cholesterol in LDL [Mass/Vol] 128 mg/dL 0-[address] [facility] CO2 [Moles/Vol] 27.0 mmol/L 21.0-32.[address] [facility] Urea nitrogen/Creatinine [Mass ratio] 10.7 mg/mg 10-[address] [facility] No Panel InformationOrdered By: Red Sandoval on 01-19-2024 Estimated GFR (MDRD) Amer 81 mL/min >[address] [facility] Comment on above: GFR Calc Estimated GFR (MDRD) Non-Af Amer 67 mL/min >[address] [facility] Comment on above: Non- GFR Calc Free Triiodothyronine (T3) pg/dL 2.0 pg/mL 2.18-3.[address] [facility] VLDL Cholesterol 26 mg/dL 5-[address] [facility] Serum or plasma calcium sandy urement (mass/volume)Ordered By: Red Sandoval on 01-19-2024 Calcium [Mass/Vol] 8.9 mg/dL 8.5-10.1 [facility] Serum or plasma creatinine m easurement (mass/volume)Ordered By: Red Sandoval on 01-19-2024 Creatinine [Mass/Vol] 0.93 mg/dL 0.55-1.02 [facility] Comment on above: The validity of the calculated GFR & GFRAA in patients over 70 years has not been determined. Clinical correlation is essential. Serum or plasma thyroid stim ulating hormone (TSH) measurement (units/volume)Ordered By: Red Sandoval on 01-19-2024 TSH Qn 2.60 uIU/mL 0.358-3.[address] [facility] Serum or plasma urea nitroge n measurement (mass/volume)Ordered By: Red Sandoval on 01-19-2024 Urea nitrogen [Mass/Vol] 10 mg/dL 7-[address] [facility] Thin prep Papanicolaou smear with manual screeningOrdered By: Red Sandoval on 01-19-2024 Thin prep Papanicolaou smear with manual screening 5 5-[address] [facility] Thin prep Papanicolaou smear with manual screening 1.33 ng/dL 0.76-1.[address] [facility] Basophil percentageOrdered B y: Red Sandoval on 07-26-2023 Chloride [Moles/Vol] 104 mmol/L 98-107 [facility] Cholesterol [Mass/Vol] 186 mg/dL <200 [facility] Comment on above: <200 mg/dL Desirable 200-240 mg/dL Borderline >240 mg/dL High Risk Glucose [Mass/Vol] 121 mg/dL 74-106 [facility] Comment on above: Fasting Glucose resu lt from 100 to 125 mg/dL suggests IMPAIRED HOMEOSTASIS per A.D.A. criteria. Potassium [Moles/Vol] 3.8 mmol/L 3.5-5.1 [facility] Sodium [Moles/Vol] 139 mmol/L 136-145 [facility] Triglyceride [Mass/Vol] 198 mg/dL <199 [facility] Comment on above: The drugs N-Acetylcy steine and Metamizole may falsely depress this assay.Serum Triglycerides Reference Interval Normal <150 mg/dL Borderline high 150 - 199 mg/dL High 200 - 499 mg/dL Very High > or = 500 mg/dL Laboratory - Chemistry and C hemistry - challengeOrdered By: Red Sandoval on 07-26-2023 CO2 [Moles/Vol] 27.0 mmol/L 21.0-32.[address] [facility] Urea nitrogen/Creatinine [Mass ratio] 10.4 mg/mg 10-[address] [facility] No Panel InformationOrdered By: Red Sandoval on 07-26-2023 Estimated GFR (MDRD) Amer 79 mL/min >[address] [facility] Comment on above: GFR Calc Estimated GFR (MDRD) Non-Af Amer 65 mL/min >[address] [facility] Comment on above: Non- GFR Calc Thyroid Stimulating Hormone (TSH) 1.67 uIU/mL 0.358-3.[address] [facility] Serum or plasma calcium sandy urement (mass/volume)Ordered By: Red Sandoval on 07-26-2023 Calcium [Mass/Vol] 8.8 mg/dL 8.5-10.1 [facility] Serum or plasma cholesterol in HDL measurement (mass/volume)Ordered By: Red Sandoval on 07-26-2023 Cholesterol in HDL [Mass/Vol] 36 mg/dL >[address] [facility] Comment on above: The drugs N-Acetylcy steine and Metamizole may falsely depress this assay. Reference Range HDL <40 mg/dL Low HDL Cholesterol HDL >or= 60 mg/dL High HDL Cholesterol Serum or plasma cholesterol in VLDL measurement (mass/volume)Ordered By: Red Sandoval on 07-26-2023 Cholesterol in VLDL [Mass/Vol] 40 mg/dL 5-[address] [facility] Serum or plasma creatinine m easurement (mass/volume)Ordered By: Red Sandoval on 07-26-2023 Creatinine [Mass/Vol] 0.96 mg/dL 0.55-1.02 [facility] Comment on above: The validity of the calculated GFR & GFRAA in patients over 70 years has not been determined. Clinical correlation is essential. Serum or plasma low density lipoprotein (LDL) cholesterol measurement (mass/volume)Ordered By: Red Sandoval on 07-26-2023 Cholesterol in LDL [Mass/Vol] 110 mg/dL 0-[address] [facility] Serum or plasma urea nitroge n measurement (mass/volume)Ordered By: Red Sandoval on 07-26-2023 Urea nitrogen [Mass/Vol] 10 mg/dL 7-[address] [facility] Thin prep Papanicolaou smear with manual screeningOrdered By: Red Sandoval on 07-26-2023 Thin prep Papanicolaou smear with manual screening 8 5-[address] [facility] Whole blood hemoglobin A1c/t otal hemoglobin ratio (mass fraction)Ordered By: Red Sandoval on 07-26-2023 HbA1c (Bld) [Mass fraction] 5.6 % 3.8-5.[address] [facility] Comment on above: Normal < 5.7 % Predi abetic 5.7 - 6.4 % Diabetic >or= 6.5 % Please note range changes. Basophil percentageOrdered B y: Dr. Sandoval on 01-25-2023 Chloride [Moles/Vol] 105 mmol/L 98-107 [facility] Cholesterol [Mass/Vol] 194 mg/dL <200 [facility] Comment on above: <200 mg/dL Desirable 200-240 mg/dL Borderline >240 mg/dL High Risk Glucose [Mass/Vol] 123 mg/dL 74-106 [facility] Comment on above: Fasting Glucose resu lt from 100 to 125 mg/dL suggests IMPAIRED HOMEOSTASIS per A.D.A. criteria. Potassium [Moles/Vol] 3.6 mmol/L 3.5-5.1 [facility] Sodium [Moles/Vol] 140 mmol/L 136-145 [facility] Triglyceride [Mass/Vol] 166 mg/dL <199 [facility] Comment on above: The drugs N-Acetylcy steine and Metamizole may falsely depress this assay.Serum Triglycerides Reference Interval Normal <150 mg/dL Borderline high 150 - 199 mg/dL High 200 - 499 mg/dL Very High > or = 500 mg/dL Laboratory - Chemistry and C hemistry - challengeOrdered By: Dr. Sandoval on 01-25-2023 CO2 [Moles/Vol] 25.0 mmol/L 21.0-32.[address] [facility] Free T4 [Mass/Vol] 1.31 ng/dL 0.76-1.46 [facility] Urea nitrogen/Creatinine [Mass ratio] 12.0 mg/mg 10-[address] [facility] No Panel InformationOrdered By: Dr. Sandoval on 01-25-2023 Estimated GFR (MDRD) Amer 58 mL/min >[address] [facility] Comment on above: GFR Calc Estimated GFR (MDRD) Non-Af Amer 48 mL/min >[address] [facility] Comment on above: Non- GFR Calc Free Triiodothyronine (T3) pg/dL 1.5 pg/mL 2.18-3.[address] [facility] Thyroid Stimulating Hormone (TSH) 1.52 uIU/mL 0.358-3.[address] [facility] Serum or plasma calcium sandy urement (mass/volume)Ordered By: Dr. Sandoval on 01-25-2023 Calcium [Mass/Vol] 9.5 mg/dL 8.5-10.1 [facility] Serum or plasma cholesterol in HDL measurement (mass/volume)Ordered By: Dr. Sandoval on 01-25-2023 Cholesterol in HDL [Mass/Vol] 39 mg/dL >[address] [facility] Comment on above: The drugs N-Acetylcy steine and Metamizole may falsely depress this assay. Reference Range HDL <40 mg/dL Low HDL Cholesterol HDL >or= 60 mg/dL High HDL Cholesterol Serum or plasma cholesterol in VLDL measurement (mass/volume)Ordered By: Dr. Sandoval on 01-25-2023 Cholesterol in VLDL [Mass/Vol] 33 mg/dL 5-[address] [facility] Serum or plasma creatinine m easurement (mass/volume)Ordered By: Dr. Sandoval on 01-25-2023 Creatinine [Mass/Vol] 1.25 mg/dL 0.55-1.02 [facility] Comment on above: The validity of the calculated GFR & GFRAA in patients over 70 years has not been determined. Clinical correlation is essential. Serum or plasma low density lipoprotein (LDL) cholesterol measurement (mass/volume)Ordered By: Dr. Sanodval on 01-25-2023 Cholesterol in LDL [Mass/Vol] 122 mg/dL 0-[address] [facility] Serum or plasma urea nitroge n measurement (mass/volume)Ordered By: Dr. Sandoval on 01-25-2023 Urea nitrogen [Mass/Vol] 15 mg/dL 7-[address] [facility] Thin prep Papanicolaou smear with manual screeningOrdered By: Dr. Sandoval on 01-25-2023 Thin prep Papanicolaou smear with manual screening 10 5-[address] [facility] Glucose Glucometer (BldC) [M ass/Vol]Ordered By: Dr. Marie on 12-01-2022 Glucose [Mass/Vol] 147 mg/dL 74-106 [facility] Comment on above: MANAGEMENT OF PATIEN T CARE PER NURSING PROTOCOL Basophil percentageon 2021 Chloride [Moles/Vol] 107 mmol/L 98-107 [facility] Work Phone: Cholesterol [Mass/Vol] 175 mg/dL <200 [facility] Work Phone: Comment on above: <200 mg/dL Desirable 200-240 mg/dL Borderline >240 mg/dL High Risk Glucose [Mass/Vol] 117 mg/dL 74-106 [facility] Work Phone: Comment on above: Fasting Glucose resu lt from 100 to 125 mg/dL suggests IMPAIRED HOMEOSTASIS per A.D.A. criteria. Potassium [Moles/Vol] 4.0 mmol/L 3.5-5.1 [facility] Work Phone: Sodium [Moles/Vol] 140 mmol/L 136-145 [facility] Work Phone: Triglyceride [Mass/Vol] 141 mg/dL <199 [facility] Work Phone: [phone] Comment on above: The drugs N-Acetylcy steine and Metamizole may falsely depress this assay.Serum Triglycerides Reference Interval Normal <150 mg/dL Borderline high 150 - 199 mg/dL High 200 - 499 mg/dL Very High > or = 500 mg/dL Laboratory - Chemistry and C hemistry - challengeon 07-27-2022 CO2 [Moles/Vol] 23.0 mmol/L 21.0-32.[address] [facility] Work Phone: [phone] T4 [Mass/Vol] 1.26 ng/dL 0.76-1.46 [facility] Work Phone: [phone] Urea nitrogen/Creatinine [Mass ratio] 9.6 mg/mg 10-[address] [facility] Work Phone: [phone] No Panel Informationon 07-27 Estimated GFR (MDRD) Amer 72 mL/min >[address] [facility] Work Phone: [phone] Comment on above: GFR Calc Estimated GFR (MDRD) Non-Af Amer 60 mL/min >[address] [facility] Work Phone: Comment on above: Non- GFR Calc Free Triiodothyronine (T3) pg/dL 2.0 pg/mL 2.18-3.[address] [facility] Work Phone: [phone] Thyroid Stimulating Hormone (TSH) 1.24 uIU/mL 0.358-3.[address] [facility] Work Phone: [phone] Serum or plasma calcium sandy urement (mass/volume)on 07-27-2022 Calcium [Mass/Vol] 9.1 mg/dL 8.5-10.1 [facility] Work Phone: [phone] Serum or plasma cholesterol in HDL measurement (mass/volume)on 07-27-2022 Cholesterol in HDL [Mass/Vol] 41 mg/dL >[address] [facility] Work Phone: [phone] Comment on above: The drugs N-Acetylcy steine and Metamizole may falsely depress this assay. Reference Range HDL <40 mg/dL Low HDL Cholesterol HDL >or= 60 mg/dL High HDL Cholesterol Serum or plasma cholesterol in VLDL measurement (mass/volume)on 07-27-2022 Cholesterol in VLDL [Mass/Vol] 28 mg/dL 5-[address] [facility] Work Phone: [phone] Serum or plasma creatinine m easurement (mass/volume)on 07-27-2022 Creatinine [Mass/Vol] 1.04 mg/dL 0.55-1.02 [facility] Work Phone: Comment on above: The validity of the calculated GFR & GFRAA in patients over 70 years has not been determined. Clinical correlation is essential. Serum or plasma low density lipoprotein (LDL) cholesterol measurement (mass/volume)on 07-27-2022 Cholesterol in LDL [Mass/Vol] 106 mg/dL 0-[address] [facility] Work Phone: Serum or plasma urea nitroge n measurement (mass/volume)on 07-27-2022 Urea nitrogen [Mass/Vol] 10 mg/dL 7-[address] [facility] Work Phone: Thin prep Papanicolaou smear with manual screeningon 07-27-2022 Thin prep Papanicolaou smear with manual screening 10 5-[address] [facility] Work Phone: Culture, urineon 04-22-2022 Bacteria identified Cx Nom (U) Escherichia coli [facility] Work Phone: Basophil percentageon 2021 Basophil percentage 5-10 SEEN /hpf [facility] Work Phone: [phone] Chloride [Moles/Vol] 104 mmol/L 98-[address] [facility] Work Phone: [phone] Cholesterol [Mass/Vol] 194 mg/dL <200 [facility] Work Phone: Comment on above: <200 mg/dL Desirable 200-240 mg/dL Borderline >240 mg/dL High Risk Glucose [Mass/Vol] 105 mg/dL 74-106 [facility] Work Phone: Comment on above: Fasting Glucose resu lt from 100 to 125 mg/dL suggests IMPAIRED HOMEOSTASIS per A.D.A. criteria. Potassium [Moles/Vol] 4.3 mmol/L 3.5-5.1 [facility] Work Phone: [phone] Sodium [Moles/Vol] 137 mmol/L 136-145 [facility] Work Phone: [phone] Triglyceride [Mass/Vol] 191 mg/dL [facility] Work Phone: [phone] Comment on above: The drugs N-Acetylcy steine and Metamizole may falsely depress this assay.Serum Triglycerides Reference Interval Normal <150 mg/dL Borderline high 150 - 199 mg/dL High 200 - 499 mg/dL Very High > or = 500 mg/dL Bilirubin Test strip Ql (U)o n 01-26-2022 Bilirubin Ql (U) Negative Negative [facility] Work Phone: [phone] Ketones Test strip Ql (U)on 01-26-2022 Ketones Ql (U) Negative Negative [facility] Work Phone: [phone] Laboratory - Chemistry and C hemistry - challengeon 01-26-2022 CO2 [Moles/Vol] 24.0 mmol/L 21.0-32.[address] [facility] Work Phone: [phone] Free T4 [Mass/Vol] 1.36 ng/dL 0.76-1.46 [facility] Work Phone: [phone] Urea nitrogen/Creatinine [Mass ratio] 13.0 mg/mg 10-[address] [facility] Work Phone: [phone] Mucus LM Ql (Urine sed)on Mucus Ql (Urine sed) 0 SEEN /hpf [facility] Work Phone: [phone] Nitrite Test strip Ql (U)on 01-26-2022 Nitrite Ql (U) Negative Negative [facility] Work Phone: [phone] No Panel Informationon 01-26 Estimated GFR (MDRD) Amer 59 mL/min >[address] [facility] Work Phone: Comment on above: GFR Calc Estimated GFR (MDRD) Non-Af Amer 49 mL/min >[address] [facility] Work Phone: [phone] Comment on above: Non- GFR Calc Free Triiodothyronine (T3) pg/dL 1.7 pg/mL 2.18-3.[address] [facility] Work Phone: Thyroid Stimulating Hormone (TSH) 3.39 uIU/mL 0.358-3.[address] [facility] Work Phone: Protein Test strip Ql (U)on 01-26-2022 Protein Ql (U) 30 mg/dl Negative [facility] Work Phone: [phone] Serum or plasma calcium sandy urement (mass/volume)on 01-26-2022 Calcium [Mass/Vol] 9.5 mg/dL 8.5-10.1 [facility] Work Phone: Serum or plasma cholesterol in HDL measurement (mass/volume)on 01-26-2022 Cholesterol in HDL [Mass/Vol] 33 mg/dL [facility] Work Phone: Comment on above: The drugs N-Acetylcy steine and Metamizole may falsely depress this assay. Reference Range HDL <40 mg/dL Low HDL Cholesterol HDL >or= 60 mg/dL High HDL Cholesterol Serum or plasma cholesterol in VLDL measurement (mass/volume)on 01-26-2022 Cholesterol in VLDL [Mass/Vol] 38 mg/dL 5-[address] [facility] Work Phone: [phone] Serum or plasma creatinine m easurement (mass/volume)on 01-26-2022 Creatinine [Mass/Vol] 1.23 mg/dL 0.55-1.02 [facility] Work Phone: Comment on above: The validity of the calculated GFR & GFRAA in patients over 70 years has not been determined. Clinical correlation is essential. Serum or plasma low density lipoprotein (LDL) cholesterol measurement (mass/volume)on 01-26-2022 Cholesterol in LDL [Mass/Vol] 123 mg/dL 0-[address] [facility] Work Phone: [phone] Serum or plasma urea nitroge n measurement (mass/volume)on 01-26-2022 Urea nitrogen [Mass/Vol] 16 mg/dL 7-[address] [facility] Work Phone: Squamous epithelial cells de tection in urine sediment by light microscopyon 01-26-2022 Epithelial cells.squamous LM Ql (Urine sed) 5-10 SEEN /hpf [facility] Work Phone: Thin prep Papanicolaou smear with manual screeningon 01-26-2022 Thin prep Papanicolaou smear with manual screening 9 5-[address] [facility] Work Phone: Urine blood detectionon 01-13 RBC Ql (U) Negative Negative [facility] Work Phone: RBC Ql (U) 0 SEEN /hpf [facility] Work Phone: Urine clarityon 01-26-2022 Clarity (U) Clear Clear [facility] Work Phone: Urine color determinationon 01-26-2022 Color (U) Yellow Yellow [facility] Work Phone: Urine glucose detectionon Glucose Ql (U) Normal mg/dl Normal [facility] Work Phone: Urine leukocyte esterase det ection by dipstickon 01-26-2022 Leukocyte esterase Test strip Ql (U) 500 /ul Negative [facility] Work Phone: Urine pHon 01-26-2022 pH (U) 6.0 [pH] [facility] Work Phone: Urine sediment bacteria coun t by microscopy (number/high power field)on 01-26-2022 Bacteria LM.HPF (Urine sed) [#/Area] 0 /[HPF] None Seen [facility] Work Phone: Urine specific gravity measu rementon 01-26-2022 Specific gravity (U) [Rel density] 1.[address] [facility] Work Phone: Urobilinogen Auto test strip Ql (U)on 01-26-2022 Urobilinogen Ql (U) Normal mg/dl Normal [facility] Work Phone: Culture, urine Bacteria identified Cx Nom (U) Escherichia coli [facility] Work Phone: Vital Signs Date Time Vital Sign Value Performing Clinician Faci lity 06-04-2025 11:10-0400 Body height 167.[address] Red Sandoval MD Work Phone: [facility] 06-04-2025 11:10-0400 Body mass index (BMI) [Ratio] 43.4 kg/m2 Dr. Red Sandoval MD Work Phone: [facility] 06-04-2025 11:10-0400 Body temperature 97.6 [degF] Dr. Red Sandoval MD Work Phone: [facility] 06-04-2025 11:10-0400 Body weight 122.[address] Red Sandoval MD Work Phone: [facility] 06-04-2025 11:10-0400 Diastolic blood pressure 71 mm[Hg] Dr. Red Sandoval MD Work Phone: [facility] 06-04-2025 11:10-0400 Heart rate 78 /min Dr. Red Sandoval MD Work Phone: [facility] 06-04-2025 11:10-0400 Respiratory rate 18 /min Dr. Red Sandoval MD Work Phone: [facility] 06-04-2025 11:10-0400 SaO2% (BldA) [Mass fraction] 96 % Dr. Red Sandoval MD Work Phone: [facility] 06-04-2025 11:10-0400 Systolic blood pressure 121 mm[Hg] Dr. Red Sandoval MD Work Phone: [facility] 05-07-2025 08:27-0400 Body height 167.[address] Red Sandoval MD Work Phone: [facility] 05-07-2025 08:27-0400 Body mass index (BMI) [Ratio] 43.5 kg/m2 Dr. Red Sandoval MD Work Phone: [facility] 05-07-2025 08:27-0400 Body temperature 98 [degF] Dr. Red Sandoval MD Work Phone: [facility] 05-07-2025 08:27-0400 Body weight 122.[address] Red Sandoval MD Work Phone: [facility] 05-07-2025 08:27-0400 Diastolic blood pressure 82 mm[Hg] Dr. Red Sandoval MD Work Phone: [facility] 05-07-2025 08:27-0400 Heart rate 75 /min Dr. Red Sandoval MD Work Phone: [phone])996-643567 [place] [address] 05-07-2025 08:27-0400 Respiratory rate 18 /min Dr. Red Sandoval MD Work Phone: 9(361)358-691227 [place] [address] 05-07-2025 08:27-0400 SaO2% (BldA) [Mass fraction] 96 % Dr. Red Sandoval MD Work Phone: 7(797)916-468467 [place] [address] 05-07-2025 08:27-0400 Systolic blood pressure 132 mm[Hg] Dr. Red Sandoval MD Work Phone: 6(936)241-493467 [place] [address] 03-29-2025 10:18-0400 Diastolic blood pressure 51 mm[Hg] Dr. Red Sandoval MD Work Phone: 6(729)252-511167 [place] [address] 03-29-2025 10:18-0400 Heart rate 79 /min Dr. Red Sandoval MD Work Phone: [phone])860-091467 [place] [address] 03-29-2025 10:18-0400 Respiratory rate 16 /min Dr. Red Sandoval MD Work Phone: [facility] 03-29-2025 10:18-0400 SaO2% (BldA) [Mass fraction] 97 % Dr. Red Sandoval MD Work Phone: 1(359)516-170667 [place] [address] 03-29-2025 10:18-0400 Systolic blood pressure 114 mm[Hg] Dr. Red Sandoval MD Work Phone: [facility] 03-29-2025 08:03-0400 Body height 167.[address] Red Sandoval MD Work Phone: [phone](888)955-596867 [place] [address] 03-29-2025 08:03-0400 Body mass index (BMI) [Ratio] 43.5 kg/m2 Dr. Red Sandoval MD Work Phone: [facility] 03-29-2025 08:03-0400 Body temperature 96.4 [degF] Dr. Red Sandoval MD Work Phone: 3([phone])081-692367 [place] [address] 03-29-2025 08:03-0400 Body weight 122.[address] Red Sandoval MD Work Phone: [phone])238-307807 [address] 03-08-2025 08:22-0400 Body mass index (BMI) [Ratio] 44.7 kg/m2 Dr. Red Sandoval MD Work Phone: 3(088)730-873227 [place] [address] 03-08-2025 08:22-0400 Body temperature 98.3 [degF] Dr. Red Sandoval MD Work Phone: 4(063)867-400827 [place] [address] 03-08-2025 08:22-0400 Body weight 125.[address] Red Sandoval MD Work Phone: 0(798)048-138267 [place] [address] 03-08-2025 08:22-0400 Diastolic blood pressure 74 mm[Hg] Dr. Red Sandoval MD Work Phone: 8(979)255-520327 [place] [address] 03-08-2025 08:22-0400 Heart rate 78 /min Dr. Red Sandoval MD Work Phone: 7(611)220-268127 [place] [address] 03-08-2025 08:22-0400 Respiratory rate 18 /min Dr. Red Sandoval MD Work Phone: 8(540)051-951467 [place] [address] 03-08-2025 08:22-0400 SaO2% (BldA) [Mass fraction] 97 % Dr. Red Sandoval MD Work Phone: 1([phone])009-163827 [place] [address] 03-08-2025 08:22-0400 Systolic blood pressure 113 mm[Hg] Dr. Red Sandoval MD Work Phone: 3(143)204-957827 [place] [address] 12-01-2022 10:40-0500 Body temperature 96.9 [degF] Dr. Red Sandoval Work Phone: [phone])127-447127 [place] [address] 12-01-2022 10:40-0500 Diastolic blood pressure 64 mm[Hg] Dr. Red Sandoval Work Phone: [facility] 12-01-2022 10:40-0500 Heart rate 62 /min Dr. Red Sandoval Work Phone: [facility] 12-01-2022 10:40-0500 Respiratory rate 16 /min Dr. Red Sandoval Work Phone: [facility] 12-01-2022 10:40-0500 SaO2% (BldA) [Mass fraction] 96 % Dr. Red Sandoval Work Phone: [facility] 12-01-2022 10:40-0500 Systolic blood pressure 106 mm[Hg] Dr. Red Sandoval Work Phone: [facility] 12-01-2022 09:27-0500 Body height 167.[address] Red Sandoval Work Phone: [facility] 12-01-2022 09:27-0500 Body mass index (BMI) [Ratio] 36.3 kg/m2 Dr. Red Sandoval Work Phone: [facility] 12-01-2022 09:27-0500 Body weight [address] Red Sandoval Work Phone: [facility] 11-10-2022 16:24-0500 Body mass index (BMI) [Ratio] 37.1 kg/m2 Dr. Red Sandoval Work Phone: [facility] 11-10-2022 16:24-0500 Body weight 104.[address] Red Sandoval Work Phone: [facility] Encounters Encounter Date Encounter Type Care Provider Facility Start: 08-13-2025 ambulatory Red Sandoval Facility:[facility] Start: 06-27-2025 End: 06-27-[address] Red Sandoval MD Work Phone: -Laboratory [facility] Start: 06-27-2025 End: 06-27-[address] Red Sandoval MD -Laboratory [facility] Start: 06-27-2025 End: 06-27-2025 ambulatory Red Sandoval Facility:[facility] Start: 06-15-2025 End: 06-15-[address] Red Sandoval MD Work Phone: -Radiology [facility] Start: 06-15-2025 End: 06-15-[address] Nikolai Kim MD -Radiology [facility] Work Phone: Start: 06-15-2025 End: 06-15-2025 ambulatory Red Sandoval Facility:[facility] Start: 06-04-[address] Glen Chapman MD -[facility] Start: 06-04-2025 End: 06-04-[address] Glen Chapman MD -[facility] Work Phone: Start: 06-04-2025 End: 06-04-[address] Red Sandoval MD Work Phone: -[facility] Start: 05-07-2025 End: 05-07-[address] Glen Chapman MD -[facility] Work Phone: Start: 05-07-2025 End: 05-07-2025 ambulatory Glen Chapman Facility:[facility] Start: 05-07-[address] Glen Chapman MD -[facility] Start: 04-17-2025 ambulatory Red Sandoval Facility:[facility] Start: 04-17-2025 Non-patient / Non-visit Dr. John real MD -[facility] Start: 04-17-2025 End: 04-17-[address] Red Sandoval MD Work Phone: [facility] Work Phone: Start: 04-17-2025 End: 04-17-[address] Red Sandoval MD -Cardiovascular Services Work Phone: Start: 04-17-2025 End: 04-17-2025 ambulatory Red Sandoval Facility:[facility] Start: 03-29-2025 End: 03-29-[address] Red Sandoval MD Work Phone: [facility] Work Phone: Start: 03-29-2025 End: 03-29-[address] Red Sandoval MD -Laboratory [facility] Start: 03-29-[address] Glen Chapman MD -[facility] Start: 03-29-2025 End: 03-29-2025 ambulatory Red Sandoval Facility:[facility] Start: 03-08-2025 End: 03-08-[address] Glen Chapman MD -[facility] Work Phone: Start: 03-08-2025 End: 03-08-2025 ambulatory Glen Chapman Facility:[facility] Start: 03-05-2025 Non-patient / Non-visit Yamila Cohen antonieta MOORE -[facility] Work Phone: Start: 03-05-2025 ambulatory Red Sandoval Facility:[facility] Start: 03-05-2025 End: 03-05-[address] Red Sandoval MD -Laboratory, [facility] Start: 03-05-2025 End: 03-05-2025 ambulatory Red Sandoval Facility:[facility] Start: 03-01-2025 End: 03-01-[address] Red Sandoval MD Work Phone: [facility] Work Phone: Start: 03-01-2025 End: 03-01-[address] Red Sandoval MD -Laboratory, [facility] Work Phone: Start: 03-01-2025 End: 03-01-2025 ambulatory Red Sandoval Facility:[facility] Start: 10-08-2024 End: 10-08-2024 ambulatory Red Sandoval Facility:[facility] Start: 02-07-2024 End: 02-07-[address] [facility] Work Phone: Start: 02-07-2024 End: 02-07-2024 Patient encounter procedure [facility] Work Phone: Start: 01-19-2024 End: 01-19-[address] [facility] Work Phone: Start: 01-19-2024 End: 01-19-2024 Patient encounter procedure [facility] Start: 07-26-2023 End: 07-26-[address] [facility] Work Phone: Start: 07-26-2023 End: 07-26-2023 Patient encounter procedure [facility] Start: 01-25-2023 End: 01-25-[address] Red Sandoval Work Phone: [facility] Work Phone: Start: 01-25-2023 End: 01-25-[address] Red Sandoval Work Phone: [facility] Start: 12-01-2022 Non-patient / Non-visit Dr. Yousuf Sandoval Work Phone: [facility] Start: 12-01-2022 End: 12-01-2022 Admission to same day surgery center Dr. Red Sandoval Work Phone: [facility] Start: 12-01-2022 End: 12-01-[address] Red Sandoval Work Phone: [facility] Work Phone: Start: 11-10-2022 Non-patient / Non-visit Dr. Yousuf Sandoval Work Phone: [facility] Start: 07-27-2022 End: 07-27-[address] [facility] Work Phone: Start: 07-27-2022 End: 07-27-2022 Patient encounter procedure [facility] Start: 06-26-2022 End: 06-26-2022 [facility] Start: 04-22-2022 End: 04-22-[address] [facility] Start: 01-26-2022 End: 01-26-[address] [facility] Procedures Date Procedure Procedure Detail Performing [...] above: Performed at: [facility] - [facility] [facility] [address] [id number] Director: Preston Ashley PhD, Phone: [phone] Start: 12-01-[address] Red cool Work Phone: Start: 04-22-2022 Urine culture Urine culture Plan of Treatment Date Care Activity Detail Author Start: 06-04-[address] [facility] Start: 05-07-[address] [facility] Start: 03-08-[address] [facility] Work Phone: Start: 12-01-2022 Colonoscopy flx dx w/collj spec when pfrmd DIAGNOSTIC COLONOSCOPY [facility] Start: 12-01-[address] [facility] C reactive protein [Mass/volume] in Serum or Plasma [facility] C reactive protein [Mass/volume] in Serum or Plasma [facility] CBC W Auto Different ial panel - Blood [facility] CBC W Auto Different ial panel - Blood [facility] CBC W Auto Different ial panel - Blood [facility] Cobalamin (Vitamin B 12) [Mass/volume] in Serum or Plasma [facility] Cobalamin (Vitamin B 12) [Mass/volume] in Serum or Plasma [facility] Colonoscopy [facility] Comprehensive metabo lic 1999 panel - Serum or Plasma [facility] Comprehensive metabo lic 1999 panel - Serum or Plasma [facility] Erythrocyte sediment ation rate [facility] Erythrocyte sediment ation rate [facility] Ferritin [Mass/volum e] in Serum or Plasma [facility] Ferritin [Mass/volum e] in Serum or Plasma [facility] Ferritin [Mass/volum e] in Serum or Plasma [facility] Folate [Moles/volume ] in Serum or Plasma [facility] Folate [Moles/volume ] in Serum or Plasma [facility] Folate [Moles/volume ] in Serum or Plasma [facility] Iron and Iron bindin g capacity panel - Serum or Plasma [facility] Iron and Iron bindin g capacity panel - Serum or Plasma [facility] Iron and Iron bindin g capacity panel - Serum or Plasma [facility] Lactate dehydrogenas e measurement [facility] Lactate dehydrogenas e measurement [facility] Lactate dehydrogenas e measurement [facility] Magnesium measurement [facility] Magnesium measurement [facility] Magnesium measurement [facility] Patient referral [facility] Work Phone: Serum inorganic phos phate measurement [facility] Serum inorganic phos phate measurement [facility] Serum inorganic phos phate measurement [facility] Vitamin B12 measurement [facility] Payers Date Payer Category Payer Private Health Insurance [id number] 2024 Private Health Insurance 100 [id number] 2024 Self-pay [id number] Unknown [id number] Unknown [id number] 2.16.8 [id number] Unknown [id number] 2.16.8 [id number] Unknown [id number] 2.16.8 [id number] Unknown [id number] 2.16.8 40.1.803103.3.579.2.462 Unknown [id number] 2.16.8 40.1.728006.3.579.2.462 Unknown [id number] 2.16.8 40.1.527480.3.579.2.462 Unknown [id number] 2.16.8 40.1.332970.3.579.2.462 Unknown [id number] 2.16.8 40.1.384593.3.579.2.462 Unknown [id number] 2.16.8 40.1.743350.3.579.2.462 Unknown [id number] 2.16.8 40.1.068802.3.579.2.462 Unknown [id number] 2.16.8 40.1.981288.3.579.2.462 Unknown [id number] 2.16.8 40.1.271049.3.579.2.462 Unknown [id number] 2.16.8 40.1.842413.3.579.2.462 Unknown [id number] 2.16.8 [id number] Social History Date Type Detail Facility Tobacco smoking status [facility] Unknown if ever smoked [facility] Work Phone: Start: 1970 Sex Assigned At Female [facility] Start: 12-01-2022 End: 12-01-2022 Tobacco smoking status [facility] Unknown if ever smoked [facility] Start: 03-05-2025 End: 03-08-2025 Tobacco smoking status NHIS Ex-smoker (finding) [facility] Start: 03-06-2025 Sex Female (finding) [facility] NEGATED: Highlighted row [facility] Goals Date Patient Goal Desired Activity /State Mental Status Date Assessment Result Facility 03-29-2025 Cognitive function Awake;Alert;A ppropriate;Foll ows Commands [facility] Work Phone: 03-15-2025 Cognitive function Arousable To Voice/Nam e [facility] Work Phone: 12-01-2022 Cognitive function Voice/Name [facility] Work Phone: Clinical Notes 12-01-2022 to 06-15-2025 Note Date & Type Note Facility 06-15-2025 Radiology Diagnostic study note [facility] Imaging Services [address] [place], [place] [address] Chest PA and Lateral MR#: [id number] Acct: [id number] Name: HEIDI ANDREWS Rep #: [id number] : 1970 F 55 From: Ricardo Nunn MD PCP: Dr. Red Sandoval MD Status: REG C LI Study:Chest PA and Lateral Date of Exam: 06/15/25 Exam# [id number] Ordering Dr: Nikolai Kim MD PROCEDURE: CHEST [...] evidence of acute cardiopulmonary disease. Reading Location: [place] [address] CC: Dr. Red Sandoval MD; Dr. 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 Comes for follow up. Feels better. [facility] Medical History Sleep apnea Wears glasses Thyroid disease Diabetes Anemia Former smoker Diabetes Anxiety Psoriasis Hypothyroid Vitamin D deficiency Hypertriglyceridemia Bipolar disorder, unspecified HTN (hypertension) Surgical History Hx of section Hx of bilateral breast reduction surgery Family History Father Hypertension Diabetes Sister Anxiety MCTD (mixed connective tissue disease) Mother Psoriatic arthritis Social History household members: spouse current occupational status: employed current occupation: [employer] Smoking Status: Former smoker alcohol intake: never [...] applicable) CC: Dr. Red Sandoval MD ~ [facility] Work Phone: 1(526) 663-623404-24-2025 Evaluation note* Diagnosis Onset Date Resolution Status Admit Date Iron deficiency anemia acute Ap ril 2024 8:14am Anemia noneactive March 08 8:14am [facility] Work Phone: 1(598) 176-535004-24-2025 Evaluation note* Diagnosis Onset Date Resolution Status Admit Date Iron deficiency anemia chronic Ap ril 2024 8:14am Anemia noneactive March 08 8:14am B12 deficiency acute May 07, 2025 7:45am Hypomagnesemia acute May 07, 2025 7:45am Iron deficiency anemia chronic Ju ne 2024 7:45am [facility] Work Phone: 1(329) 238-812004-24-2025 Evaluation note* Diagnosis Onset Date Resolution Status [...] 9:55am Hypomagnesemia resolved June 04, 2025 9:55am [facility] Work Phone: 1(961) 845-752403-25-2024 NotePap Smear Specimen AdequacyMarch 2023 9:00amComment.Satisfactory for evaluation. Endocervical and/or squamous metaplasticcells (endocervical component)are present.[facility] INTER[facility]ACED A#[id number] Hospitals Beachwood Medical CenterComment on above:Satisfactory for evaluation. Endocervical and/or squamous metaplasticcells (endocervical component)are present.12-01-2022 Procedure noteWUniversity Hospitals Beachwood Medical Center 12-01-2022 Procedure noteWUniversity Hospitals Beachwood Medical CenterEvaluation noteNo assessment information availableWUniversity Hospitals Beachwood Medical Center Work Phone: Evaluation note* Diagnosis Onset Date Resolution Status Encounter for screening for malignant neoplasm of colo n acute [facility] Work Phone: History and physical note Author Dr. Marie [facility] December 01, 2022 10:07am Note Date/Time December 01, 2022 1 0:07am [facility] Medical Records Department [address] [place] [address] History & Physical Exam 12/01/22 1005 MR#: [id number] Acct: [id number] Name: HEIDI ANDREWS Rep #:[id number] : 1970 52 From: Lamine gracia MD PCP: Dr. Red Sandoval MD Status:[facility] Location: [address] HPI Narrative HEIDI ANDREWS, is a 52 F who presents for screening colonoscopy. Patient reports no blood in the stool or abdominal pain. She has never had a colonoscopy in the past. No family history of colon cancer. [facility] Medical History Anemia Anxiety Bipolar disorder, unspecified [...] 09:05) Discharge Is Pt Admitted From a Long-Term, or a Longterm: No Who Could Help: After D/C, Where [...] proceed with procedure. Lamine Marie MD Pager: [facility] [address] [place] [address], [address] [place] [address] Office: Surgery Risks - Colonoscopy Risks Include but are not Limited To: Risks include but are not limited to: Bleeding, perforation requiring further surgery, inability to complete colonoscopy requiring barium enema. 12/01/22 1007 <Electronically signed by Lamine Marie MD> Cosigner Signature (if applicable): CC: Dr. Lamine Marie MD; Dr. Red Sandoval MD~ Signed [facility] Work Phone: Reason for referral (narrative)No reason for referral information availableWUniversity Hospitals Beachwood Medical Center Work Phone: Chief Complaint and Reason for [...] Will No November 25 8:38am Power of Shredding Specialist No November 25, 2022 8:38am Advance Directive Response Recorded Date/ Time Living Will No November 25 9:38am Power of Shredding Specialist No November 25, 2022 9:38am Summary Purpose [...] section and content) DATE CREATED AUTHOR 08/08/2025 [facility] FOR RECORDS PERTAINING TO PATIENTS WHO [...] BE BASED ON THE PRIMARY CLINICAL RECORDS. [employer] provides no warranty or guarantee of the accuracy or completeness of information in this document.
[2025-08-17 19:21] LABS: Hematocrit 29.3 % (37-47); Hemoglobin 9.5 g/dL (12.0-15.0); Immature Granulocytes Count 0.320 X10^3/uL (0.0-0.0); Mean Corp Hgb Conc 32.4 g/dL (32-36); Mean Corpuscular Volume 81.6 fL (81-99); Mean Platelet Vol. 10.0 fl (6.2-12.0); NRBC Flagged by Analyzer 0 % (0-5); Platelet Count 370 K/mm3 (150-450); RBC Distribution Width CV 13.3 % (11.6-14.6); RBC Distribution Width SD 39.8 fl (35.1-43.9); Red Blood Count 3.59 M/mm3 (4.2-5.4); White Blood Count 10.6 K/mm3 (4.4-11.0)
[2025-08-17 19:37] LABS: AST(SGOT) 14 U/L (<=31); Alanine Aminotransfer ALT/SGPT 5 U/L (<=34); Albumin, Serum 4.0 g/dL (3.5-5.0); Alkaline Phosphatase 138 U/L (35-104); Anion Gap 22 (5-15); BUN 25 mg/dL (4-19); BUN/Creat Ratio 14.1 RATIO (10-20); Calcium,Total 9.8 mg/dL (7.6-11.0); Carbon Dioxide 23.4 mmol/L (21.0-32.0); Chloride 85 mmol/L (98-108); Ferritin 1236 ng/mL (22-378); Free T3 1.8 pg/mL (2.18-3.98); Globulin 3.8 g/dL (2.2-4.2); Glucose 168 mg/dL (70-99); Iron 52 ug/dL (50-170); Iron Binding Capacity,Total 345 ug/dL (250-450); Iron Binding Capacity,Unsat 293 ug/dL (228-428); Potassium 3.2 mmol/L (3.3-5.1)
== END | disposition home or self-care (01) ==
LOC: MFPLAB 16:25
PROVIDERS: PCP Family Medicine; Visit Provider Family Medicine
DX: E61.1 Iron deficiency (principal); E03.9 Hypothyroidism, unspecified; R42 Dizziness and giddiness
CPT/HCPCS: 36415; 80053; 82728; 83540; 83550; 84439; 84443; 84481; 85025

== ENCOUNTER → 2025-08-22 | Outpatient (CLI) | payer OTHER, SELFPAY ==
[2025-08-22 12:41] LABS: Hematocrit 31.3 % (37-47); Hemoglobin 10.3 g/dL (12.0-15.0); Immature Granulocytes Count 0.270 X10^3/uL (0.0-0.0); Mean Corp Hgb Conc 32.9 g/dL (32-36); Mean Corpuscular Volume 80.5 fL (81-99); Mean Platelet Vol. 10.2 fl (6.2-12.0); NRBC Flagged by Analyzer 0 % (0-5); Platelet Count 391 K/mm3 (150-450); RBC Distribution Width CV 13.4 % (11.6-14.6); RBC Distribution Width SD 38.8 fl (35.1-43.9); Red Blood Count 3.89 M/mm3 (4.2-5.4); White Blood Count 10.3 K/mm3 (4.4-11.0)
[2025-08-22 13:33] LABS: AST(SGOT) 27 U/L (<=31); Alanine Aminotransfer ALT/SGPT 12 U/L (<=34); Albumin, Serum 4.1 g/dL (3.5-5.0); Alkaline Phosphatase 243 U/L (35-104); Anion Gap 20 (5-15); BUN 22 mg/dL (4-19); BUN/Creat Ratio 16.0 RATIO (10-20); Calcium,Total 10.3 mg/dL (7.6-11.0); Carbon Dioxide 23.7 mmol/L (21.0-32.0); Chloride 89 mmol/L (98-108); Ferritin 837 ng/mL (22-378); Globulin 4.1 g/dL (2.2-4.2); Glucose 193 mg/dL (70-99); Potassium 3.2 mmol/L (3.3-5.1); Vitamin B12 747 pg/mL (180-914)
[2025-08-22 13:39] LABS: Anisocytosis 1+
[2025-08-22 14:50] LABS: CRP 129.00 mg/L (0.0-3.0); Iron 55 ug/dL (50-170); Iron Binding Capacity,Total 386 ug/dL (250-450); Iron Binding Capacity,Unsat 331 ug/dL (228-428); LDH 132 U/L (84-246); Magnesium 2.3 mg/dL (1.5-2.2)
== END | disposition home or self-care (01) ==
LOC: LAB 10:18 → MTLAB 10:19
PROVIDERS: Internal Medicine Medical Oncology; PCP Family Medicine; Referring Provider Family Medicine; Visit Provider Family Medicine
DX: N17.9 Acute kidney failure, unspecified (principal); E53.8 Deficiency of other specified B group vitamins; E83.42 Hypomagnesemia; D50.9 Iron deficiency anemia, unspecified
CPT/HCPCS: 36415; 80053; 82607; 82728; 83540; 83550; 83615; 83735; 84100; 85025; 85652; 86140

== ENCOUNTER 2025-08-31 09:59 | Inpatient (IN) | payer OTHER, SELFPAY ==
[2025-08-31 10:00] VITALS: BP 102/62; PULSE 77; RESP 18; TEMP 36.4; O2SAT 100; BMI 36.1
--- NOTE | 2025-08-31 10:12 | EKG12_ITS ---
Test Reason : Blood Pressure : */* mmHG Vent. Rate : 72 BPM Atrial Rate : 72 BPM P-R Int : 168 ms QRS Dur : 90 ms QT Int : 418 ms P-R-T Axes : 39 21 52 degrees QTcB Int : 457 ms Normal sinus rhythm Nonspecific ST abnormality Abnormal ECG Confirmed by KWAKU JARAMILLO, MICHELLE ([id number]), material expeditor GUY CAMPOVERDE ([id number]) on 09/03/2025 6:58:58 AM Referred By: Confirmed By: MICHELLE AMES MD
--- NOTE | 2025-08-31 10:12 | RAD_ITS ---
PROCEDURE: CHEST 1 VIEW N/A REASON FOR EXAM: SYNCOPE TECHNIQUE: Frontal view of the chest. COMPARISON: Prior study dated June 15, 2025. FINDINGS: Hardware: EKG electrodes are seen. Heart: The heart size is normal. Lungs: The lungs are clear. Stable elevation of the right hemidiaphragm. Bones: Degenerative changes are identified within the thoracic spine. RAD/Chest 1 View IMPRESSION: Stable examination. No acute abnormality is seen. Reading Location: [place] [address]
--- NOTE | 2025-08-31 10:14 | EX.ED.DYSGE1 ---
HPI History of Present Illness Chief Complaint: Hypotension Informant: patient, family and EMS Narrative Narrative: 55-year-old female presented to the emergency room with a chief complaint of syncope. Patient states that 2 months ago she started Ozempic. She states that she has had significant nausea and has been unable to keep food down. She states that she has not been able to go to work over the past 2 weeks. About 2 weeks ago her PCP discontinued her clonidine due to lower than normal blood pressure. She has continued her metoprolol and her Diovan. She states that she did not take her Ozempic last week. She notes that she is currently being evaluated with hematology for anemia and has received iron infusions. She states that recent blood work has resulted in her being referred to nephrology and she is scheduled next week for a liver ultrasound due to abnormal LFTs. She is not on any blood thinners. This morning she was sitting in her living room and went to get up and go towards the kitchen. She felt that she was going to pass out and was using the wall to help her when she eventually had a syncopal episode. She notes an injury to the right ankle with swelling and a bump on the occiput of her head. She denies any neck pain. She denies any significant headache. She denies chest pain shortness of breath. She notes that she has had black diarrhea stools but is not uncommon for her since beginning iron supplementation. [facility] Medical History (Updated 08/31/25 @ 13:40 by Sweta Simms) BiPAP (biphasic positive airway pressure) dependence Asthma Irregular heart beat Sleep apnea Wears glasses Thyroid disease Diabetes Anemia Former smoker Diabetes Anxiety Psoriasis Hypothyroid Vitamin D deficiency Hypertriglyceridemia Bipolar disorder, unspecified HTN (hypertension) Home Medications ?Medication ?Instructions ?Recorded ?Last Taken ?Type gemfibrozil 600 mg tablet 600 mg PO BID high blood pressu 11/10/22 08/31/25 08:00 History lamotrigine 150 mg tablet 150 mg PO BID high blood pressure 11/10/22 08/31/25 08:00 History levothyroxine 88 mcg tablet 88 mcg PO DAILY hypo thyroid 11/10/22 08/31/25 06:00 History (Levoxyl) metformin 1,000 mg tablet 1,000 mg PO BID diabetes 11/10/22 08/31/25 08:00 History metoprolol succinate 200 mg 200 mg PO DAILY heart rate/htn 11/10/22 08/31/25 08:00 History tablet,extended release 24 hr (Toprol XL) valsartan 320 1 tab PO DAILY blood pressure 11/10/22 08/31/25 08:00 History mg-hydrochlorothiazide 12.5 mg tablet (Diovan HCT) oxybutynin chloride 5 mg tablet 5 mg PO BID bladder 03/05/25 Unknown History fluoxetine 20 mg capsule (Prozac) 60 mg PO DAILY bipolar 03/08/25 08/31/25 08:00 History folic acid 1 mg tablet 1 mg PO QDAY supplement #90 tabs 05/07/25 08/31/25 08:00 Rx mecobalamin (vitamin B12) 1,000 1,000 mcg PO QDAY supplement #90 05/07/25 08/31/25 08:00 Rx mcg chewable tablet tabs magnesium oxide 400 mg PO QDAY supplement #30 caps 06/01/25 08/31/25 08:00 Rx risperidone 1 mg tablet 1.5 mg PO QHS rls 06/04/25 08/30/25 22:48 History semaglutide 0.25 mg or 0.5 mg (2 0.25 mg subcut QWEEK 08/27/25 Unknown History mg/3 mL) subcutaneous pen injector (Bubbli) Held on 08/31/25. Instructions: skipped this week 08/31/25 fluticasone furoate 200 1 ea inhalation Q24H asthma 08/31/25 08/30/25 08:00 History mcg-vilanterol 25 mcg/dose inhalation powder ondansetron HCl 4 mg tablet 4 mg PO TID PRN nausea 08/31/25 Unknown History potassium chloride 20 mEq 20 meq PO DAILY supplement 08/31/25 08/30/25 08:00 History tablet,extended release(part/cryst) Allergy/AdvReac Type Severity Reaction Status Date / Time No Known Allergies Allergy Verified 08/31/25 10:07 Family History Father Hypertension Diabetes Sister Anxiety MCTD (mixed connective tissue disease) Mother Psoriatic arthritis Surgical History Hx of section Hx of bilateral breast reduction surgery Social History household members: spouse current occupational status: employed 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 Smoking Status: Former smoker alcohol intake: never substance use type: does not use ROS ROS ED Constitutional Constitutional ED: Reports chills; Denies fever(s) or weight loss Eyes Eyes: Denies change in vision or diplopia ENT ENT ED: Denies ear pain, rhinorrhea or sore throat Cardiovascular Cardiovascular: Reports other Details: Syncope ; Denies chest pain, orthopnea, palpitations or racing heartbeat Respiratory/Chest Respiratory/Chest: Reports other; Denies cough, dyspnea or orthopnea Gastrointestinal Gastrointestinal: Reports diarrhea, nausea and vomiting; Denies abdominal pain Genitourinary Genitourinary ED: Denies dysuria, hematuria or urinary frequency Musculoskeletal Musculoskeletal: Reports other Details: Right ankle pain ; Denies arthralgias or myalgias Integumentary Reports other Details: Occipital hematoma ; Denies abscess or rash Neurologic Neurologic: Denies headache(s) or weakness Psychiatric Psychiatric: Denies anxiety, depression, suicidal ideation or suicidal thoughts Endocrine Endocrinology: Denies polydipsia, polyphagia or polyuria Allergic/Immunologic Allergic/Immunologic ED: Denies mouth swelling, tongue swelling or urticaria EXAM Physical Exam Const Vital Signs: 08/31/25 10:00 08/31/25 10:05 08/31/25 11:02 Temperature 97.6 F L Temperature Source Oral Pulse Rate 77 76 Respiratory Rate 18 18 Respiratory Effort Normal Non-Labored Respiratory Pattern Normal Blood Pressure 102/62 104/70 Blood Pressure Mean 75 81 Pulse Ox 100 97 Oxygen Delivery Method Room Air Room Air 08/31/25 12:00 08/31/25 12:04 Temperature 98.1 F 98.1 F Temperature Source Oral Pulse Rate 72 72 Respiratory Rate 16 16 Respiratory Effort Respiratory Pattern Blood Pressure 96/52 L 96/52 L Blood Pressure Mean 66 66 Pulse Ox 99 99 Oxygen Delivery Method Room Air Positive well nourished and well developed General Appearance ED: well developed; Negative for pallor HEENT Reports normocephalic and moist mucous membranes HEENT Narrative: There is a small scalp hematoma in the occiput Eyes PERRL and EOMs intact bilaterally General Eye ED: Negative for pale conjunctiva or scleral icterus Neck no lymphadenopathy, supple and no JVD General: Negative for tenderness Resp normal respiratory effort and clear to auscultation bilaterally Cardio regular rate, regular rhythm and no murmurs GI normal to inspection, nondistended, normoactive bowel sounds and non-tender Palpation: soft Back/Spine no CVA tenderness and normal ROM Extremity Extremity Narrative: There is some mild swelling and ecchymosis anterior lateral of the right ankle. No fibular head tenderness. No fifth metatarsal tenderness. Achilles palpates intact. General Extremety ED: Negative for edema General Extremity: Negative for edema Neuro oriented x3 and CN's II-XII intact bilaterally Sensorium / Orientation: alert Motor Exam: strength 5/5 throughout Psych mental status grossly normal Mood & Affect: Negative for depressed or tearful Skin no rashes or lesions noted and no wounds General Skin Exam: Negative for pallor MDM MDM MDM Narrative Medical decision making narrative: Differential diagnosis includes dehydration cardiac syncope renal abnormalities electrolyte abnormalities anemia intracranial hemorrhage fracture EKG demonstrates a normal sinus rhythm. No events on the monitor. CT of the brain did not demonstrate any acute fracture. My independent interpretation a chest x-ray is no acute process. My independent interpretation of the plain films of the right ankle is an acute fracture of the distal fibula with possible avulsion fracture of the posterior malleolus. Basic blood work shows a hemoglobin of 10.9 white count 4.9 platelet count of 240 INR 1.3 BMP with a sodium of 129 creatinine now significantly elevated 3.1 with a BUN of 47 lactic acid is elevated 4.4. I believe this is most likely due to the episode of hypotension which is not resolved as well as her metformin and her JESI. No strong evidence of UTI. Patient was placed in a posterior stirrup well-padded Ortho-Glass splint made by this physician. Neurovascular intact pre and post application. Case was discussed with Dr. Prakash from orthopedics as the patient does not have a local orthopedist. I also spoke with the hospitalist and plan of care is admission. History & Record Review Discussion w/independent historian: EMS personnel, Patient and Family Additional record(s) reviewed:: Prior outpatient record Lab Data Attestation: I reviewed the patient's lab results. Labs: Laboratory Results - last 24 hr 08/31/25 08/31/25 08/31/25 09:50 10:20 11:16 WBC 4.9 RBC 4.11 L Hgb 10.9 L Hct 33.2 L MCV 80.8 L MCH 26.5 L MCHC 32.8 RDW Std Deviation 40.0 RDW Coeff of Sohan 13.8 Plt Count 240 MPV 10.1 Immature Gran % (Auto) 1.200 H Neut % (Auto) 72.5 H Lymph % (Auto) 16.0 L Newton % (Auto) 6.7 Eos % (Auto) 3.0 Baso % (Auto) 0.6 Absolute Neuts (auto) 3.6 Absolute Lymphs (auto) 0.79 L Nucleated RBC % 0 PT 16.0 H INR 1.3 APTT 27.1 Sodium 129 L Potassium 3.8 Chloride 86 L Carbon Dioxide 17.7 L Anion Gap 25 H BUN 47 H Creatinine 3.10 H Estim Creat Clear Calc 25.29 L Est GFR (MDRD) Non-Af 17 L BUN/Creatinine Ratio 15.0 Glucose 199 H Lactic Acid 4.4 H* Calcium 10.5 Total Bilirubin 0.60 Direct Bilirubin 0.33 H AST 17 ALT 9 Alkaline Phosphatase 186 H Troponin T High Sens 14 Troponin T Hi Sens 2 Hr Total Protein 8.6 H Albumin 4.9 Globulin 3.7 Urine Color Yellow Urine Clarity Sl. Cloudy Urine pH 5.0 Ur Specific [place] 1.025 Urine Protein 100 H Urine Glucose (UA) Normal Urine Ketones 5 H Urine Occult Blood 10 H Urine Nitrite Negative Urine Bilirubin 3 H Urine Urobilinogen 1 H Ur Leukocyte Esterase 25 H Urine RBC 0 SEEN Urine WBC 0-5 SEEN Ur Squamous Epith Cells 10-25 SEEN Amorphous Sediment 1+ Urine Bacteria RARE Urine Mucus 0 SEEN 08/31/25 11:48 WBC RBC Hgb Hct MCV MCH MCHC RDW Std Deviation RDW Coeff of Sohan Plt Count MPV Immature Gran % (Auto) Neut % (Auto) Lymph % (Auto) Newton % (Auto) Eos % (Auto) Baso % (Auto) Absolute Neuts (auto) Absolute Lymphs (auto) Nucleated RBC % PT INR APTT Sodium Potassium Chloride Carbon Dioxide Anion Gap BUN Creatinine Estim Creat Clear Calc Est GFR (MDRD) Non-Af BUN/Creatinine Ratio Glucose Lactic Acid Calcium Total Bilirubin Direct Bilirubin AST ALT Alkaline Phosphatase Troponin T High Sens Troponin T Hi Sens 2 Hr 12 Total Protein Albumin Globulin Urine Color Urine Clarity Urine pH Ur Specific [place] Urine Protein Urine Glucose (UA) Urine Ketones Urine Occult Blood Urine Nitrite Urine Bilirubin Urine Urobilinogen Ur Leukocyte Esterase Urine RBC Urine WBC Ur Squamous Epith Cells Amorphous Sediment Urine Bacteria Urine Mucus Radiography Diagnostic Testing: Clinical Impression(s) from Imaging Studies Chest X-Ray 08/31/25 10:12 IMPRESSION: Stable examination. No acute abnormality is seen. Reading Location: [facility] Brain CT 08/31/25 10:30 IMPRESSION: Cerebral atrophy more pronounced in the anterior frontal lobes bilaterally as well as in the [facility] 08/31/25 10:35 IMPRESSION: Nondisplaced oblique fracture of the lateral malleolus as well as avulsion fracture of the posterior malleolus. Mild asymmetry of the ankle mortise as well as soft tissue swelling. Reading Location: [place] [address] EKG Initial EKG: Attestation: I personally reviewed and interpreted this EKG as follows: Comments: Normal sinus rhythm ventricular rate of 72 bpm. Management Discussion w/another healthcare provider: Hospitalist, Electric Meter Tester Helper (Dr. Prakash (orthopedics)) and Radiologist Discharge Plan Dx/Rx/DC Orders Clinical Impression: Iron deficiency anemia, Syncope, Ankle fracture, right, Hematoma of occipital region of scalp, JESI (acute kidney injury), Acute hyponatremia, Elevated lactic acid level Disposition Disposition: Acute Care Hospital [facility] Discharge Date/Time: 08/31/25 13:17
[2025-08-31 10:26] LABS: Hematocrit 33.2 % (37-47); Hemoglobin 10.9 g/dL (12.0-15.0); Immature Granulocytes Count 0.060 X10^3/uL (0.0-0.0); Mean Corp Hgb Conc 32.8 g/dL (32-36); Mean Corpuscular Volume 80.8 fL (81-99); Mean Platelet Vol. 10.1 fl (6.2-12.0); NRBC Flagged by Analyzer 0 % (0-5); Platelet Count 240 K/mm3 (150-450); RBC Distribution Width CV 13.8 % (11.6-14.6); RBC Distribution Width SD 40.0 fl (35.1-43.9); Red Blood Count 4.11 M/mm3 (4.2-5.4); White Blood Count 4.9 K/mm3 (4.4-11.0)
--- NOTE | 2025-08-31 10:30 | CT_ITS ---
PROCEDURE: BRAIN/HEAD WITHOUT CONTRAST 08/31/2025 REASON FOR EXAM: INJURY Head injury due to syncopal episode. TECHNIQUE: Procedure Code: CTBR Modality: CT Procedure: BRAIN/HEAD WITHOUT CONTRAST Coronal and Sagittal reconstruction series were provided. One or more dose reduction techniques were used (e.g., Automated exposure control, adjustment of the mA and/or kV according to patient size, use of iterative reconstruction technique. RADIATION DOSE SUMMARY: CTDlvol: 44.99 mGy DLP: 762.36 mGycm COMPARISON: None FINDINGS: Brain: Adjacent to the CSF Spaces: Prominent CSF spaces overlying the frontal lobes bilaterally. Prominent CSF spaces along the cerebral falx superiorly. This may be developmental in nature. Sinuses/Mastoids: Clear at visualized levels Bones: Hyperostosis frontalis interna. CT/Brain/Head without Contrast IMPRESSION: Cerebral atrophy more pronounced in the anterior frontal lobes bilaterally as w ell as in the Reading Location: [place] [address]
--- NOTE | 2025-08-31 10:35 | RAD_ITS ---
PROCEDURE: ANKLE MIN 3 VIEWS 08/31/2025 REASON FOR EXAM: INJURY TECHNIQUE: Procedure Code: RADANK Modality: DX Procedure: ANKLE MIN 3 VIEWS Laterality: Right ankle. COMPARISON: None FINDINGS: Bones: Nondisplaced oblique fracture of the lateral malleolus. Avulsion fracture of the posterior malleolus. Joints: Mild asymmetry of the ankle mortise. Soft tissues: Soft tissue swelling Other: RAD/Ankle min 3 Views IMPRESSION: Nondisplaced oblique fracture of the lateral malleolus as well as avulsion frac ture of the posterior malleolus. Mild asymmetry of the ankle mortise as well as soft tissue swelling. Reading [facility]
[2025-08-31 10:37] LABS: Prothrombin Time (Protime)PT. 16.0 SECONDS (11.7-14.9)
[2025-08-31 10:38] LABS: Partial Thromboplast Time 27.1 Seconds (24.1-36.2)
[2025-08-31 10:43] LABS: Troponin T High Sensitivity 14 ng/L (<=14)
[2025-08-31 10:48] LABS: AST(SGOT) 17 U/L (<=31); Alanine Aminotransfer ALT/SGPT 9 U/L (<=34); Albumin, Serum 4.9 g/dL (3.5-5.0); Alkaline Phosphatase 186 U/L (35-104); Anion Gap 25 (5-15); BUN 47 mg/dL (4-19); BUN/Creat Ratio 15.0 RATIO (10-20); Bilirubin, Direct 0.33 mg/dL (0.00-0.30); Calcium,Total 10.5 mg/dL (7.6-11.0); Carbon Dioxide 17.7 mmol/L (21.0-32.0); Chloride 86 mmol/L (98-108); Estimated Creatinine Clearance 25.29 ml/min (50-250); Globulin 3.7 g/dL (2.2-4.2); Glucose 199 mg/dL (70-99); Potassium 3.8 mmol/L (3.3-5.1)
[2025-08-31 11:02] VITALS: BP 104/70; PULSE 76; RESP 18; O2SAT 97
--- OUTSIDE RECORDS SUMMARY | 2025-08-31 11:12 | XMS RPT_ITS | CCD ---
Author Organization [facility] CliniSyar Care Team Providers Care Desk Clerk Name Role Phone Dr. Red Sandoval Primary [...] Provider Dr. Red Sandoval MD Referring Provider Ana JARAMILLO, Dr. Moon Attending Provider Ana JARAMILLO, Dr. Moon Primary Care Physician Ana JARAMILLO, Dr. Moon Referring Provider Ari JARAMILLO, Dr. Carroll Attending Physician Julio JARAMILLO, Dr. Nikolai Mon Attending Physician Aan JARAMILLO, Dr. Moon Attending Physician Julio, Nikolai Mon Referring Unavailable Sibilia, Nikolai Mon Attending Unavailable Sandoval, Red Primary Care Unavailable Sandoval, Red Attending Unavailable Sandoval, Red Primary Care Unavailable Sandoval, Red Consulting Unavailable Sandoval, Red Referring Unavailable Sandoval, Red Primary Care Unavailable John Damian Attending Unavailable Sandoval, Red Primary Care Unavailable Sandoval, Red Referring Unavailable Roof FISH CHECKER, Enrique Pino Attending Unavailable Sandoval, Red Referring Unavailable Sandoval, Red Primary Care Unavailable Prah, Glen Attending Unavailable Sandoval, Red Primary Care Unavailable Sandoval, Red Referring Unavailable Prah, Glen Attending Unavailable Sandoval, Red Referring Unavailable Prah, Glne Attending Unavailable Sandoval, Red Primary Care Unavailable Sandoval, Red Referring Unavailable Prah, Glen Attending Unavailable Sandoval, Red Primary Care Unavailable Sandoval, Red Primary Care Unavailable Yamila Stein Attending Unavailable Sibilia, Nikolai Mon Referring Unavailable Sibilia, Nikolai Mon Attending Unavailable Sandoval, Red Primary Care Unavailable Sandoval, Red Attending Unavailable Sandoval, Red Primary Care Unavailable Sandoval, Red Referring Unavailable Sandoval, Red Attending Unavailable Sandoval, Red Referring Unavailable Sandoval, Red Primary Care Unavailable Sandoval, Red Attending Unavailable Sandoval, Red Primary Care Unavailable Sandoval, Red Referring Unavailable OOTDR ARIEL Consulting Unavailable Sandoval, Red Attending Unavailable Sandoval, Red Primary Care Unavailable Sandoval, Red Referring Unavailable Sandoval, Red Attending Unavailable Sandoval, Red Primary Care Unavailable Sandoval, Red Referring Unavailable Sandoval, Red Attending Unavailable Sandoval, Red Primary Care Unavailable Prah, Glen Consulting Unavailable Prah, Glen Referring Unavailable Prah, Glen Attending Unavailable Sandoval, Red Primary Care Unavailable Sandoval, Red Primary Care Unavailable Prah, Glen Attending Unavailable Prah, Glen Referring Unavailable Medications Current Medications Medication Drug Class(es) Dates Sig (Normalized) Sig (Original) cloNIDine hydrochloride 0.1 mg oral tablet (20 sources) Central alpha-2 Adrenergic Agonist Start: 03-08-2025 take 0.05 mg by mouth twice daily Start: 11-10-2022 End: 03-08-2025 take 1 tablet by mouth twice daily Clonidine Hcl 0.1 mg tablet Discontinued 0.1 mg PO TWICE A DAY November 10, 2022 1:00am March 08, 2025 8:30am FLUoxetine 20 mg oral capsule (20 sources) Serotonin Reuptake Inhibitor Start: 03-08-2025 take 3 capsules by mouth once daily Start: 03-05-2025 End: 03-08-2025 take 2 capsules [...] 4:41pm folic acid 1 mg oral tablet (5 sources) Start: 05-07-2025 take 1 tablet by mouth once daily gemfibrozil 600 mg oral tablet (13 sources) Peroxisome Proliferator Receptor alpha Agonist Start: 11-10-2022 take 1 tablet by mouth twice daily hydroCHLOROthiazide 12.5 mg / valsartan 320 mg oral tablet (13 sources) Thiazide Diuretic, Angiotensin 2 Receptor David Start: 11-10-2022 lamoTRIgine 150 mg oral tablet (13 sources) Mood Stabilizer, Anti-epileptic Agent Start: 11-10-2022 take 1 tablet by mouth twice daily levothyroxine sodium 0.088 mg oral tablet (13 sources) l-Thyroxine Start: 11-10-2022 take 1 tablet by mouth once daily magnesium oxide 400 mg oral capsule (9 sources) Start: 05-07-2025 End: 06-01-2025 take 1 capsule by mouth once daily mecobalamin 1 mg chewable tablet (5 sources) Start: 05-07-2025 take 1 tablet by mouth once daily metFORMIN hydrochloride 1000 mg oral tablet (13 sources) Biguanide Start: 11-10-2022 take 1 tablet by mouth twice daily 24 hr metoprolol succinate 200 mg extended release oral tablet (13 sources) beta-Adrenergic David Start: 11-10-2022 take 1 tablet by mouth once daily oxybutynin chloride 5 mg oral tablet (8 sources) Cholinergic Muscarinic Antagonist Start: 03-05-2025 take 1 tablet by mouth twice daily risperiDONE 1 mg oral tablet (17 sources) Atypical Antipsychotic Start: 06-04-2025 take 1.5 mg by mouth at bedtime Start: 11-10-2022 End: 06-04-2025 take 1 tablet by mouth at bedtime Risperidone (Risperdal) 2 mg tablet Discontinued 2 mg PO AT BEDTIME November 10, 2022 1:00am June 04, 2025 11:17am Completed/Discontinued Medications Medication Drug Class(es) Dates Sig (Normalized) Sig (Original) azithromycin 250 mg oral tablet (8 sources) Macrolide Antimicrobial Start: 4 End: Azithromycin (Zithromax Z-Navneet) 250 mg tablet Discontinued 0 PO .COMPLEX 6 October 08, 2024 1:00am March 05, 2025 4:41pm For 250 mg dose pack: take 500 mg today (day 1), then 250 mg for 4 days (days 2-5) PO methylPREDNISolone 4 mg oral tablet (8 sources) Corticosteroid Start: 4 End: 5 take 1 tablet by mouth once Methylprednisolone (Medrol (Navneet)) 4 mg tablets,dose pack Discontinued 0 PO per package directions 21 October 08, 2024 1:00am March 05, 2025 4:41pm PO PER PKG DIR Problems Active Problems Problem Classification Problem Date Documented Da te Episodic/Chronic Acute and unspecified renal failure (1 source) Acute kidney failure, unspecified; Translations: [Acute kidney failure, unspecified] Onset: 08-22-2025 Episodic Asthma (1 source) Moderate persistent asthma, uncomplicated; Translations: [Moderate persistent asthma, uncomplicated] Onset: 08-17-2025 Chronic Deficiency and other anemia (20 sources) [...] unspecified; Translations: [Iron deficiency anemia, unspecified] Onset: 08-27-2025 Episodic Deficiency and other anemia (2 sources) Anemia, unspecified; Translations: [Anemia, unspecified] Onset: 04-03-2025 Episodic Deficiency and other anemia (9 sources) Deficiency and other anemia Diabetes mellitus without complication (14 sources) Diabetes mellitus; Translations: [Type 2 diabetes mellitus without complications] Onset: 07-02-2025 11-10-2022 Chronic Malaise and fatigue (2 sources) Weakness; Translations: [Other fatigue] Onset: 03-06-2025 Episodic Nutritional deficiencies (17 sources) Cobalamin deficiency; Translations: [Deficiency of other specified B group vitamins] Onset: 03-09-2025 05-07-2025 Episodic Comment on above: B12 level is normal today. Other lower respiratory disease (1 source) Shortness of breath; Translations: [Shortness of breath] Onset: 07-06-2025 Episodic Other nutritional; endocrine; and metabolic disorders (14 sources) Hypomagnesemia; Translations: [Hypomagnesemia] 05-07-2025 Chronic Other nutritional; endocrine; and metabolic disorders (1 source) Hypomagnesemia; Translations: [Hypomagnesemia] Onset: 06-04-2025 Chronic Other screening for suspected conditions (not mental disorders or infectious disease) (15 sources) Patient encounter status; Translations: [Encounter for screening for malignant neoplasm of colon] 11-10-2022 Episodic Past or Other Problems Problem Classification Problem Date Documented Da te Episodic/Chronic Nonspecific chest pain (2 sources) Chest pain, unspecified; Translations: [Chest pain, unspecified] Onset: 04-30-2025 Episodic Other upper respiratory infections (9 sources) Upper respiratory infection; Translations: [Acute upper respiratory infection, unspecified] Onset: 10-08-2024 10-08-2024 Episodic Results Test Name Value Interpretation Reference Range Facility Erythropoietinon 08-28-2025 ERYTHROPOIETIN 9.5 mIU/mL Normal 2.6-18.5 [facility] Comment on above: Result Comment: Sansan DxI 800 Immunoassay System Values obtained with different assay methods or kits cannot be used interchangeably. Results cannot be interpreted as absolute evidence of the presence or absence of malignant disease. Performed By: #### L 3100.5400, L100.0100, L500.4050, L501.9985, L500.4100, L501.4021 #### [facility] [address] [place], [address] Hepatitis B/C Profile VIIIon 08-28-2025 COMMENT Comment Normal . [facility] Comment on above: Result Comment: Not infected with HCV unless early or acute infection is suspected (which may be delayed in an immunocompromised individual), or other evidence exists to indicate HCV infection. Performed By: #### L 3100.5400, L100.0100, L500.4050, L501.9985, L500.4100, L501.4021 #### [facility] [address] [place], [address] HEP B CORE,TOT Negative Normal Negative [facility] Comment on above: Performed By: #### L 3100.5400, L100.0100, L500.4050, L501.9985, L500.4100, L501.4021 #### [facility] [address] [place], [address] Hep B Micheal AB Non-Reactive Normal . [facility] Comment on above: Result Comment: Non Reactive: Not immune to HBV infection. Anti-HBs undetectable or less than 10 mIU/mL. Reactive: Evidence of HBV immunity. Anti-HBs levels greater than 10 mIU/mL. Performed By: #### L 3100.5400, L100.0100, L500.4050, L501.9985, L500.4100, L501.4021 #### [facility] [address] [place], [address] HEP B SURF AG Negative Normal Negative [facility] Comment on above: Performed By: #### L 3100.5400, L100.0100, L500.4050, L501.9985, L500.4100, L501.4021 #### [facility] [address] [place], [place], [address] HEP C Antibody Non-Reactive Normal Non Reactive [facility] Comment on above: Performed By: #### L 3100.5400, L100.0100, L500.4050, L501.9985, L500.4100, L501.4021 #### [facility] [address] [place], [place], [id number] HEPATITIS INTER Comment Normal . [facility] Comment on above: Result Comment: HBV Serology Interpretation Chart ------ Interpretation HBsAg anti-HBs anti-HBc anti-HBc IgM ------ Garner - Analyte present: + Analyte absent: - Test not indicated: TNI ------ Susceptible (never infected and no evidence - - - TNI of vaccination) ------ Immune due to natural resolved infection - + + TNI ------ Immune due to vaccination - + - TNI ------ Acute Infection + - + + ------ Chronic infection + - + - ------ Interpretation unclear* - - + +/- ------ *Multiple possibilities: resolved infection (most common); false- positive anti-HBc (susceptible); low-level chronic infection; resolving acute infection. Performed By: #### L 3100.5400, L100.0100, L500.4050, L501.9985, L500.4100, L501.4021 #### [facility] [address] [place], [place], [id number] IgG Subclasseson 08-28-2025 IgG, SUBCLASS 1 334 mg/dL Normal 248-810 [facility] Comment on above: Performed By: #### L 3100.5400, L100.0100, L500.4050, L501.9985, L500.4100, L501.4021 #### [facility] [address] [place], [address] IgG, SUBCLASS 2 281 mg/dL Normal 130-555 [facility] Comment on above: Performed By: #### L 3100.5400, L100.0100, L500.4050, L501.9985, L500.4100, L501.4021 #### [facility] [address] [place], [address] IgG, SUBCLASS 3 51 mg/dL Normal 15-102 [facility] Comment on above: Performed By: #### L 3100.5400, L100.0100, L500.4050, L501.9985, L500.4100, L501.4021 #### [facility] [address] [place], [address] IgG, SUBCLASS 4 3 mg/dL Normal 2-96 [facility] Comment on above: Performed By: #### L 3100.5400, L100.0100, L500.4050, L501.9985, L500.4100, L501.4021 #### [facility] [address] [place], [address] IGG,QUANT 718 mg/dL Normal 586-1602 [facility] Comment on above: Performed By: #### L 3100.5400, L100.0100, L500.4050, L501.9985, L500.4100, L501.4021 #### [facility] [address] [place], [address] Immunoglobulins G/A/Mon 10-11 18-2024 IMMUNOGLOB A QN 72 mg/dL Low 87-352 [facility] Comment on above: Order Comment: N Performed By: #### L 3100.5400, L100.0100, L500.4050, L501.9985, L500.4100, L501.4021 #### [facility] [address] [place], [address] IMMUNOGLOB M QN 49 mg/dL Normal 26-217 [facility] Comment on above: Order Comment: N Performed By: #### L 3100.5400, L100.0100, L500.4050, L501.9985, L500.4100, L501.4021 #### [facility] [address] [place], [address] L3410.9992on 08-28-2025 [facility]. COMMENT Normal . [facility] Comment on above: Order Comment: [id number] 7ANA WITH [id number] Result Comment: Test Ordered: [id number] ANIRUDH, IFA Rfx 9 Frantz Multiplex ANIRUDH by IFA Rfx Titer/Pattern Negative CB Reference Range: . Negative <1:80 Borderline 1:80 Positive >1:80 ICAP nomenclature: AC-0 For more information about Hep-2 cell patterns use ANApatterns.org, the official website for the International Consensus on Antinuclear Antibody (ANIRUDH) Patterns (ICAP). Please Note: Comment CB Reference Range: . ANIRUDH Multiplex methodology was designed to detect up to 11 antibodies of the 100+ antibodies that may be detected by ANIRUDH IFA methodology. Performed at: [facility] [address] [id number] Registered Pharmacist: Preston Ashley PhD, Phone: [phone] Performed By: #### L 3100.5400, L100.0100, L500.4050, L501.9985, L500.4100, L501.4021 #### [facility] [address] [place], [address] L501.5101on 08-28-2025 GGTP 62 IU/L Abnormal 0-60 [facility] Comment on above: Result Comment: Perf ormed at: [address] [id number] Registered Pharmacist: Preston Ashley PhD, Phone: [phone] Performed By: #### L 3100.5400, L100.0100, L500.4050, L501.9985, L500.4100, L501.4021 #### [facility] [address] [place], [address] CBC W/Diff, Automatedon 10-1 3-2024 Absolute Lymph 1.29 X10 3/uL Normal 0.83-4.51 [facility] Comment on above: Performed By: #### L 3000.0800, L100.9950, L3890.6006, L506.0200, L3410.9992, L101.9900, L503.0106, L500.4050, L501.1400, L400.0001, L503.6030, L3200.1200, L503.6550, L501.5101, L100.0100, L504.2610, L501.5200, L3200.0500, L501.6710, L3100.1350 #### [facility] [address] [place], [place], [id number] (530) Absolute Neut 5.3 X10 3/uL Normal 2.0-7.7 [facility] Comment on above: Performed By: #### L 3000.0800, L100.9950, L3890.6006, L506.0200, L3410.9992, L101.9900, L503.0106, L500.4050, L501.1400, L400.0001, L503.6030, L3200.1200, L503.6550, L501.5101, L100.0100, L504.2610, L501.5200, L3200.0500, L501.6710, L3100.1350 #### [facility] [address] [place], [place], [id number] (878) Basophils/100 WBC (Bld) 0.4 % Normal 0-[address] [facility] Comment on above: Performed By: #### L 3000.0800, L100.9950, L3890.6006, L506.0200, L3410.9992, L101.9900, L503.0106, L500.4050, L501.1400, L400.0001, L503.6030, L3200.1200, L503.6550, L501.5101, L100.0100, L504.2610, L501.5200, L3200.0500, L501.6710, L3100.1350 #### [facility] [address] [place], [place], [phone] (267) Eosinophils/100 WBC (Bld) 2.2 % Normal 0-5 [facility] Comment on above: Performed By: #### L 3000.0800, L100.9950, L3890.6006, L506.0200, L3410.9992, L101.9900, L503.0106, L500.4050, L501.1400, L400.0001, L503.6030, L3200.1200, L503.6550, L501.5101, L100.0100, L504.2610, L501.5200, L3200.0500, L501.6710, L3100.1350 #### [facility] [address] [facility] [place], [place], [phone] Erythrocyte distribution width (RBC) [Ratio] 13.8 % Normal 11.6-14.6 [facility] Comment on above: Performed By: #### L 3000.0800, L100.9950, L3890.6006, L506.0200, L3410.9992, L101.9900, L503.0106, L500.4050, L501.1400, L400.0001, L503.6030, L3200.1200, L503.6550, L501.5101, L100.0100, L504.2610, L501.5200, L3200.0500, L501.6710, L3100.1350 #### [facility] [address] [facility] [place], [address] Hematocrit (Bld) [Volume fraction] 33.2 % Low 37-47 [facility] Comment on above: Performed By: #### L 3000.0800, L100.9950, L3890.6006, L506.0200, L3410.9992, L101.9900, L503.0106, L500.4050, L501.1400, L400.0001, L503.6030, L3200.1200, L503.6550, L501.5101, L100.0100, L504.2610, L501.5200, L3200.0500, L501.6710, L3100.1350 #### [facility] [address] [facility] [place], [address] Hemoglobin (Bld) [Mass/Vol] 11.3 g/dL Low 12.0-15.0 [facility] Comment on above: Performed By: #### L 3000.0800, L100.9950, L3890.6006, L506.0200, L3410.9992, L101.9900, L503.0106, L500.4050, L501.1400, L400.0001, L503.6030, L3200.1200, L503.6550, L501.5101, L100.0100, L504.2610, L501.5200, L3200.0500, L501.6710, L3100.1350 #### [facility] [address] [facility] [place], [address] IG% 2.200 High 0.0-0.9 [facility] Comment on above: Result Comment: IG% - Immature Granulocytes (promyelocytes, myelocytes and metamyelocytes) > 1% indicates that a LEFT SHIFT is Present. Performed By: #### L 3000.0800, L100.9950, L3890.6006, L506.0200, L3410.9992, L101.9900, L503.0106, L500.4050, L501.1400, L400.0001, L503.6030, L3200.1200, L503.6550, L501.5101, L100.0100, L504.2610, L501.5200, L3200.0500, L501.6710, L3100.1350 #### [facility] [address] [facility] [place], [address] Lymphocytes/100 WBC (Bld) 17.4 % Low 19-41 [facility] Comment on above: Performed By: #### L 3000.0800, L100.9950, L3890.6006, L506.0200, L3410.9992, L101.9900, L503.0106, L500.4050, L501.1400, L400.0001, L503.6030, L3200.1200, L503.6550, L501.5101, L100.0100, L504.2610, L501.5200, L3200.0500, L501.6710, L3100.1350 #### [facility] [address] [facility] [place], [address] MCH (RBC) [Entitic mass] 27.2 pg Normal 27.0-32.0 [facility] Comment on above: Performed By: #### L 3000.0800, L100.9950, L3890.6006, L506.0200, L3410.9992, L101.9900, L503.0106, L500.4050, L501.1400, L400.0001, L503.6030, L3200.1200, L503.6550, L501.5101, L100.0100, L504.2610, L501.5200, L3200.0500, L501.6710, L3100.1350 #### [facility] [address] [facility] [place], [address] MCHC (RBC) [Mass/Vol] 34.0 g/dL Normal 32-36 [facility] Comment on above: Performed By: #### L 3000.0800, L100.9950, L3890.6006, L506.0200, L3410.9992, L101.9900, L503.0106, L500.4050, L501.1400, L400.0001, L503.6030, L3200.1200, L503.6550, L501.5101, L100.0100, L504.2610, L501.5200, L3200.0500, L501.6710, L3100.1350 #### [facility] [address] [place], [place], [phone] (833) MCV (RBC) [Entitic vol] 80.0 fL Low 81-[address] [facility] Comment on above: Performed By: #### L 3000.0800, L100.9950, L3890.6006, L506.0200, L3410.9992, L101.9900, L503.0106, L500.4050, L501.1400, L400.0001, L503.6030, L3200.1200, L503.6550, L501.5101, L100.0100, L504.2610, L501.5200, L3200.0500, L501.6710, L3100.1350 #### [facility] [address] [facility] [place], [place], [phone] (210) Monocytes/100 WBC (Bld) 6.2 % Normal 0-[address] [facility] Comment on above: Performed By: #### L 3000.0800, L100.9950, L3890.6006, L506.0200, L3410.9992, L101.9900, L503.0106, L500.4050, L501.1400, L400.0001, L503.6030, L3200.1200, L503.6550, L501.5101, L100.0100, L504.2610, L501.5200, L3200.0500, L501.6710, L3100.1350 #### [facility] [address] [facility] [place], [address] Neutrophils/100 WBC (Bld) 71.6 % High 47-70 [facility] Comment on above: Performed By: #### L 3000.0800, L100.9950, L3890.6006, L506.0200, L3410.9992, L101.9900, L503.0106, L500.4050, L501.1400, L400.0001, L503.6030, L3200.1200, L503.6550, L501.5101, L100.0100, L504.2610, L501.5200, L3200.0500, L501.6710, L3100.1350 #### [facility] [address] [facility] [place], [address] Nucleated RBC (Bld) [#/Vol] 0 10*3/uL Normal 0-5 [facility] Comment on above: Performed By: #### L 3000.0800, L100.9950, L3890.6006, L506.0200, L3410.9992, L101.9900, L503.0106, L500.4050, L501.1400, L400.0001, L503.6030, L3200.1200, L503.6550, L501.5101, L100.0100, L504.2610, L501.5200, L3200.0500, L501.6710, L3100.1350 #### [facility] [address] [facility] [place], [address] Platelet mean volume (Bld) [Entitic vol] 9.5 fL Normal 6.2-12.0 [facility] Comment on above: Performed By: #### L 3000.0800, L100.9950, L3890.6006, L506.0200, L3410.9992, L101.9900, L503.0106, L500.4050, L501.1400, L400.0001, L503.6030, L3200.1200, L503.6550, L501.5101, L100.0100, L504.2610, L501.5200, L3200.0500, L501.6710, L3100.1350 #### [facility] [address] [place], [place], [id number] Platelets (Bld) [#/Vol] 333 10*3/uL Normal 150-450 [facility] Comment on above: Performed By: #### L 3000.0800, L100.9950, L3890.6006, L506.0200, L3410.9992, L101.9900, L503.0106, L500.4050, L501.1400, L400.0001, L503.6030, L3200.1200, L503.6550, L501.5101, L100.0100, L504.2610, L501.5200, L3200.0500, L501.6710, L3100.1350 #### [facility] [address] [place], [place], [id number] RBC (Bld) [#/Vol] 4.15 10*6/uL Low 4.2-5.4 [facility] Comment on above: Performed By: #### L 3000.0800, L100.9950, L3890.6006, L506.0200, L3410.9992, L101.9900, L503.0106, L500.4050, L501.1400, L400.0001, L503.6030, L3200.1200, L503.6550, L501.5101, L100.0100, L504.2610, L501.5200, L3200.0500, L501.6710, L3100.1350 #### [facility] [address] [place], [address] RDW SD 39.8 fl Normal 35.1-43.9 [facility] Comment on above: Performed By: #### L 3000.0800, L100.9950, L3890.6006, L506.0200, L3410.9992, L101.9900, L503.0106, L500.4050, L501.1400, L400.0001, L503.6030, L3200.1200, L503.6550, L501.5101, L100.0100, L504.2610, L501.5200, L3200.0500, L501.6710, L3100.1350 #### [facility] [address] [place], [place], [id number] WBC (Bld) [#/Vol] 7.4 10*3/uL Normal 4.4-11.0 [facility] Comment on above: Performed By: #### L 3000.0800, L100.9950, L3890.6006, L506.0200, L3410.9992, L101.9900, L503.0106, L500.4050, L501.1400, L400.0001, L503.6030, L3200.1200, L503.6550, L501.5101, L100.0100, L504.2610, L501.5200, L3200.0500, L501.6710, L3100.1350 #### [facility] [address] [facility] [place], [address] CRPon 08-27-2025 C-REACTIVE PROT 18.30 mg/L High 0.0-3.0 [facility] Comment on above: Performed By: #### L 3100.5400, L100.0100, L500.4050, L501.9985, L500.4100, L501.4021 #### [facility] [address] [place], [place], [id number] Comprehensive Metabolic Prof ilon 08-27-2025 Albumin [Mass/Vol] 4.6 g/dL Normal 3.5-5.0 [facility] Comment on above: Performed By: #### L 3100.5400, L100.0100, L500.4050, L501.9985, L500.4100, L501.4021 #### [facility] [address] [place], [address] Albumin/Globulin [Mass ratio] 1.2 {ratio} Normal 0.9-2.4 [facility] Comment on above: Result Comment: AMENDED REPORT 08/27/251519 A/G previously reported as: 1.2 RATIO Performed By: #### L 3100.5400, L100.0100, L500.4050, L501.9985, L500.4100, L501.4021 #### [facility] [address] [place], [address] ALK PHOS 194 U/L High 35-104 [facility] Comment on above: Result Comment: AMENDED REPORT 08/27/251519 ALK P previously reported as: 196 H U/L Performed By: #### L 3100.5400, L100.0100, L500.4050, L501.9985, L500.4100, L501.4021 #### [facility] [address] [place], [place], [id number] ALT [Catalytic activity/Vol] 8 U/L Normal <=34 [facility] Comment on above: Result Comment: AMENDED REPORT 08/27/251519 ALT previously reported as: 9 U/L Performed By: #### L 3100.5400, L100.0100, L500.4050, L501.9985, L500.4100, L501.4021 #### [facility] [address] [place], [address] AST [Catalytic activity/Vol] 17 U/L Normal <=31 [facility] Comment on above: Result Comment: AMENDED REPORT 08/27/251519 AST previously reported as: 19 U/L Performed By: #### L 3100.5400, L100.0100, L500.4050, L501.9985, L500.4100, L501.4021 #### [facility] Laboratory [address] [place], [address] Bilirubin [Mass/Vol] 0.59 mg/dL Normal 0.00-1.30 [facility] Comment on above: Performed By: #### L 3100.5400, L100.0100, L500.4050, L501.9985, L500.4100, L501.4021 #### [facility] [address] [place], [address] BUN/CRE 16.9 RATIO Normal 10-20 [facility] Comment on above: Result Comment: AMENDED REPORT 08/27/251519 BUN/CRE previously reported as: 16.8 RATIO Performed By: #### L 3100.5400, L100.0100, L500.4050, L501.9985, L500.4100, L501.4021 #### [facility] [address] [place], [address] Calcium [Mass/Vol] 10.5 mg/dL Normal 7.6-11.0 [facility] Comment on above: Performed By: #### L 3100.5400, L100.0100, L500.4050, L501.9985, L500.4100, L501.4021 #### [facility] [address] [place], [address] Chloride [Moles/Vol] 90 mmol/L Low 98-108 [facility] Comment on above: Performed By: #### L 3100.5400, L100.0100, L500.4050, L501.9985, L500.4100, L501.4021 #### [facility] [address] [place], [address] CO2 [Moles/Vol] 20.0 mmol/L Low 21.0-32.0 [facility] Comment on above: Result Comment: AMENDED REPORT 08/27/251519 CO2 previously reported as: 19.6 L mmol/L Performed By: #### L 3100.5400, L100.0100, L500.4050, L501.9985, L500.4100, L501.4021 #### [facility] [address] [place], [address] Creatinine [Mass/Vol] 1.58 mg/dL High 0.70-1.20 [facility] Comment on above: Result Comment: AMENDED REPORT 08/27/251519 CREAT,SERUM previously reported as: 1.65 H mg/dL Performed By: #### L 3100.5400, L100.0100, L500.4050, L501.9985, L500.4100, L501.4021 #### [facility] [address] [place], [address] ECRCL 49.49 ml/min Low 50-250 [facility] Comment on above: Result Comment: AMENDED REPORT 08/27/251519 Estimated CRCL previously reported as: 47.39 L ml/min Performed By: #### L 3100.5400, L100.0100, L500.4050, L501.9985, L500.4100, L501.4021 #### [facility] [address] [place], [address] GAP 21 High 5-15 [facility] Comment on above: Performed By: #### L 3100.5400, L100.0100, L500.4050, L501.9985, L500.4100, L501.4021 #### [facility] [address] [place], [address] Globulin (S) [Mass/Vol] 3.7 g/dL Normal 2.2-4.2 [facility] Comment on above: Result Comment: AMENDED REPORT 08/27/251519 GLOB previously reported as: 3.8 g/dL Performed By: #### L 3100.5400, L100.0100, L500.4050, L501.9985, L500.4100, L501.4021 #### [facility] [address] [place], [address] Glucose [Mass/Vol] 161 mg/dL High 70-99 [facility] Comment on above: Result Comment: AMENDED REPORT 08/27/251519 GLU previously reported as: 165 H mg/dL Performed By: #### L 3100.5400, L100.0100, L500.4050, L501.9985, L500.4100, L501.4021 #### [facility] [address] [place], [address] Potassium [Moles/Vol] 4.0 mmol/L Normal 3.3-5.1 [facility] Comment on above: Performed By: #### L 3100.5400, L100.0100, L500.4050, L501.9985, L500.4100, L501.4021 #### [facility] [address] [place], [address] Sodium [Moles/Vol] 131 mmol/L Low 133-145 [facility] Comment on above: Performed By: #### L 3100.5400, L100.0100, L500.4050, L501.9985, L500.4100, L501.4021 #### [facility] [address] [place], [address] T PROT 8.2 g/dL Normal 5.9-8.4 [facility] Comment on above: Result Comment: AMENDED REPORT 08/27/251519 T PROT previously reported as: 8.4 g/dL Performed By: #### L 3100.5400, L100.0100, L500.4050, L501.9985, L500.4100, L501.4021 #### [facility] [address] [place], [place], [address] Urea nitrogen [Mass/Vol] 27 mg/dL High 4-19 [facility] Comment on above: Result Comment: AMENDED REPORT 08/27/251519 BUN previously reported as: 28 H mg/dL Performed By: #### L 3100.5400, L100.0100, L500.4050, L501.9985, L500.4100, L501.4021 #### [facility] [address] [place], [place], [address] Erythrocyte Sed Rateon 08-27 SED RATE 63 mm/hr High 0-30 [facility] Comment on above: Performed By: #### L 3000.0800, L100.9950, L3890.6006, L506.0200, L3410.9992, L101.9900, L503.0106, L500.4050, L501.1400, L400.0001, L503.6030, L3200.1200, L503.6550, L501.5101, L100.0100, L504.2610, L501.5200, L3200.0500, L501.6710, L3100.1350 #### [facility] [address] [facility] [place], [address] Ferritinon 08-27-2025 Ferritin [Mass/Vol] 872 ng/mL High 22-378 [facility] Comment on above: Result Comment: AMENDED REPORT 08/27/251519 FERRITIN previously reported as: 819 H ng/mL Performed By: #### L 3100.5400, L100.0100, L500.4050, L501.9985, L500.4100, L501.4021 #### [facility] [address] [place], [place], [address] Folates,Serum (Folic Acid)on 08-27-2025 FOLATES,SERUM 15.90 ng/mL Normal 4.60-34.80 [facility] Comment on above: Order Comment: DR.MA BAILEY GETS RESULTS FOR CBCD CMP LIPID ANDPROLACTIN DR. SNADOVAL GETS RESULTS FOR CBCD BMP AND TROPNIN Performed By: #### L 3100.5400, L100.0100, L500.4050, L501.9985, L500.4100, L501.4021 #### [facility] [address] [place], [address] HIVon 08-27-2025 HIV Non-Reactive Normal Nonreactive [facility] Comment on above: Result Comment: Non- Reactive Reactive Repeatedly reactive samples must be confirmed according to CDC recommended confirmatory algorithms. The subresults for either HIVAG or AHIV can be used as an aid in the selection of the confirmation algorithm for reactive samples. Send out specimens with Reactive results to [facility] for confirmation. Order the HIV antibody detection and differentiation: #[id number] Performed By: #### L 3100.5400, L100.0100, L500.4050, L501.9985, L500.4100, L501.4021 #### [facility] [address] [place], [address] Iron+Iron Binding Capacityon 08-27-2025 Iron [Mass/Vol] 125 ug/dL Normal 50-170 [facility] Comment on above: Performed By: #### L 3100.5400, L100.0100, L500.4050, L501.9985, L500.4100, L501.4021 #### [facility] [address] [place], [address] IRON SATURATION 25.7 Normal 13-59 [facility] Comment on above: Performed By: #### L 3100.5400, L100.0100, L500.4050, L501.9985, L500.4100, L501.4021 #### [facility] [address] [place], [address] UIBC 362 ug/dL Normal 228-428 [facility] Comment on above: Performed By: #### L 3100.5400, L100.0100, L500.4050, L501.9985, L500.4100, L501.4021 #### [facility] [address] [place], [address] LDHon 08-27-2025 LDH 125 U/L Normal 84-246 [facility] Comment on above: Order Comment: 1 Performed By: #### L 3100.5400, L100.0100, L500.4050, L501.9985, L500.4100, L501.4021 #### [facility] [address] [place], [address] Magnesiumon 08-27-2025 Magnesium [Mass/Vol] 2.2 mg/dL Normal 1.5-2.2 [facility] Comment on above: Performed By: #### L 3100.5400, L100.0100, L500.4050, L501.9985, L500.4100, L501.4021 #### [facility] [address] [place], [address] Oncology Visit Reporton 08-15 Oncology Visit Report [facility] [address] [place] [address] OFFICE VISIT Date of Service: 08/27/25 1121 MR#: [id number] Acct: [id number] Name: HEIDI ANDREWS Rep #: [id number] : 1970 From: Glen Chapman MD Age/Sex: 55/F [place] [facility] [place] Status: Signed HPI Subjective Date of Service 08/27/25 Chief Complaint F/u for Iron dificiency anemia. [...] for deficiency. Comes for follow up. Feels tired, sleeps a lot. [facility] Medical History Sleep apnea Wears glasses Thyroid disease Diabetes Anemia Former smoker Diabetes Anxiety Psoriasis Hypothyroid Vitamin D deficiency Hypertriglyceridemia Bipolar disorder, unspecified HTN (hypertension) Surgical History Hx of section Hx of bilateral breast reduction surgery Family History Father Hypertension Diabetes Sister Anxiety MCTD (mixed connective tissue disease) Mother Psoriatic arthritis Social History household members: spouse current occupational status: employed current occupation: [employer] Smoking Status: Former smoker alcohol intake: never substance use type: does not use Intake Vital Signs 06/04/25 11:10 08/27/25 11:22 Height 5 ft 6 in 5 ft 6 in Weight: 101.378 kg BMI 36.1 BP 98/72 Blood Pressure Location Lt brachial Position Sitting Respiration 18 Pulse 82 Pulse Source Monitor Temp 97 F L Temperature Source Temporal Artery Pulse Oximetry (%) 99 Oxygen Delivery Method room air Intake Accompanied by: Is patient in pain?: No Allergies No Known Allergies Allergy (Verified 08/27/25 11:29) Medications ???Medication ???Instructions ???Recorded ???Confirmed ???Type gemfibrozil 600 mg tablet 600 mg PO BID 11/10/22 08/27/25 Hi story lamotrigine 150 mg tablet 150 mg PO BID 11/10/22 08/27/25 Hi story levothyroxine 88 mcg tablet 88 mcg PO DAILY 11/10/22 08/27/25 History (Levoxyl) metformin 1,000 mg tablet 1,000 mg PO BID 11/10/22 08/27/25 History metoprolol succinate 200 mg 200 mg PO DAILY 11/10/22 08/27/25 History tablet,extended release 24 hr (Toprol XL) valsartan 320 1 tab PO DAILY 11/10/22 08/27/25 H istory mg-hydrochlorothiazi de 12.5 mg tablet (Diovan HCT) oxybutynin chloride 5 mg tablet 5 mg PO BID 03/05/25 08/27/25 Hist ory fluoxetine 20 mg capsule (Prozac) 60 mg PO DAILY 03/08/25 08/27/25 History folic acid 1 mg tablet 1 mg PO QDAY #90 tabs 05/07/25 Rx mecobalamin (vitamin B12) 1,000 1,000 mcg PO QDAY #90 tabs 5 08/27/25 Rx mcg chewable tablet magnesium oxide 400 mg PO QDAY #30 caps 06/01/25 1 Rx risperidone 1 mg tablet 1.5 mg PO QHS 06/04/25 08/27/25 Hi story potassium chloride 20 mEq 20 meq PO QDAY 08/27/25 08/27/25 H istory tablet,extended release (K-Tab) semaglutide 0.25 mg or 0.5 mg (2 0.25 mg subcut QWEEK 08/27/2508/15 History mg/3 mL) subcutaneous pen injector (Ozempic) Central Venous Access Central Venous Access: No Exam Physical Exam Const alert, oriented x3 and no apparent distress Coding Level of Care Code Off vis,est,level 4 Exam Problem Focused Diagnoses B12 deficiency E53.8 Iron deficiency anemia, unspecified iron deficiency anemia type D50.9 Iron deficiency anemia type: unspecified iron deficiency General weakness R53.1 Assessment and Plan Assessment and Plan (1) B12 deficiency: Status: Chronic Comment: B12 level is normal today. Plan: To continue Oral Vitamin B12 1000mcg daily with folate. (2) Iron deficiency anemia: Status: Chronic Qualifiers: Iron deficiency anemia type: unspecified iron deficiency Qualified Code(s): D50.9 - Iron deficiency anemia, unspecified Comment: Got IV Iron replacement. Iron profile is normal today. Hgb has dropped to 10.3 today. Plan: To continue Oral Iron 2-3 times a week. Check stool for occult blood. (3) General weakness: Status: Acute Plan: To repeat Labs. Obtain Abd US and Liver elastography Orders: Orders CBC W/Diff, Automated 08/27/25 D50.9 - Iron deficiency anemia, unspecified, E53.8 - Deficiency of other specified B group vitamins, R (more content not included)... Normal [facility] Retic Panelon 08-27-2025 IM RET FRACTION 12.30 Normal 3.00-15.90 [facility] Comment on above: Performed By: #### L 3000.0800, L100.9950, L3890.6006, L506.0200, L3410.9992, L101.9900, L503.0106, L500.4050, L501.1400, L400.0001, L503.6030, L3200.1200, L503.6550, L501.5101, L100.0100, L504.2610, L501.5200, L3200.0500, L501.6710, L3100.1350 #### [facility] [address] [place], [address] RET-HE 29.5 pg Low 30-35 [facility] Comment on above: Performed By: #### L 3000.0800, L100.9950, L3890.6006, L506.0200, L3410.9992, L101.9900, L503.0106, L500.4050, L501.1400, L400.0001, L503.6030, L3200.1200, L503.6550, L501.5101, L100.0100, L504.2610, L501.5200, L3200.0500, L501.6710, L3100.1350 #### [facility] [address] [place], [address] Retic Count 1.38 Normal 0.5-1.5 [facility] Comment on above: Performed By: #### L 3000.0800, L100.9950, L3890.6006, L506.0200, L3410.9992, L101.9900, L503.0106, L500.4050, L501.1400, L400.0001, L503.6030, L3200.1200, L503.6550, L501.5101, L100.0100, L504.2610, L501.5200, L3200.0500, L501.6710, L3100.1350 #### [facility] [address] [place], [address] Uric Acidon 08-27-2025 URIC 9.8 mg/dL High 2.6-6.0 [facility] Comment on above: Result Comment: The drugs N-Acetylcysteine and Metamizole may falsely depress this assay. Performed By: #### L 3100.5400, L100.0100, L500.4050, L501.9985, L500.4100, L501.4021 #### [facility] [address] [place], [address] Urinalysis, Completeon 08-27 BACTERIA 2+ /hpf Normal None Seen [facility] Comment on above: Order Comment: DR.MA BAILEY GETS RESULTS FOR CBCD CMP LIPID ANDPROLACTIN DR. SANDOVAL GETS RESULTS FOR CBCD BMP AND TROPNIN Performed By: #### L 3100.5400, L100.0100, L500.4050, L501.9985, L500.4100, L501.4021 #### [facility] [address] [place], [address] EPI,SQUAMOUS 10-25 SEEN Normal 5-10 [facility] Comment on above: Order Comment: DR.MA BAILEY GETS RESULTS FOR CBCD CMP LIPID ANDPROLACTIN DR. SANDOVAL GETS RESULTS FOR CBCD BMP AND TROPNIN Performed By: #### L 3100.5400, L100.0100, L500.4050, L501.9985, L500.4100, L501.4021 #### [facility] [address] [place], [address] WBC 5-10 SEEN Normal 0-5 [facility] Comment on above: Order Comment: DR.MA BAILEY GETS RESULTS FOR CBCD CMP LIPID ANDPROLACTIN DR. SANDOVAL GETS RESULTS FOR CBCD BMP AND TROPNIN Performed By: #### L 3100.5400, L100.0100, L500.4050, L501.9985, L500.4100, L501.4021 #### [facility] [address] [place], [address] Mucus Ql (Urine sed) 0 SEEN Normal [facility] Comment on above: Order Comment: DR.MA BAILEY GETS RESULTS FOR CBCD CMP LIPID ANDPROLACTIN DR. SANDOVAL GETS RESULTS FOR CBCD BMP AND TROPNIN Performed By: #### L 3100.5400, L100.0100, L500.4050, L501.9985, L500.4100, L501.4021 #### [facility] [address] [facility] [place], [address] RBC 0 SEEN Normal 0-5 [facility] Comment on above: Order Comment: DR.MA BAILEY GETS RESULTS FOR CBCD CMP LIPID ANDPROLACTIN DR. SANDOVAL GETS RESULTS FOR CBCD BMP AND TROPNIN Performed By: #### L 3100.5400, L100.0100, L500.4050, L501.9985, L500.4100, L501.4021 #### [facility] [address] [facility] [place], [address] Vitamin B12on 08-27-2025 Cobalamin (Vitamin B12) [Mass/Vol] 718 pg/mL Normal 180-914 [facility] Comment on above: Result Comment: AMENDED REPORT 08/27/25 1520 Vitamin B12 previously reported as: 715 pg/mL Performed By: #### L 3100.5400, L100.0100, L500.4050, L501.9985, L500.4100, L501.4021 #### [facility] [address] [place], [address] Basic Metabolic Profile (BMP )on 08-22-2025 BUN Normal 4-19 [facility] Comment on above: Order Comment: DR.MA BAILEY GETS RESULTS FOR CBCD CMP LIPID ANDPROLACTIN DR. SANDOVAL GETS RESULTS FOR CBCD BMP AND TROPNIN Result Comment: DUPL ICATE Performed By: #### L 3100.5400, L100.0100, L500.4050, L501.9985, L500.4100, L501.4021 #### [facility] [address] [place], [address] BUN/CRE Normal 10-20 [facility] Comment on above: Order Comment: DR.MA BAILEY GETS RESULTS FOR CBCD CMP LIPID ANDPROLACTIN DR. SANDOVAL GETS RESULTS FOR CBCD BMP AND TROPNIN Result Comment: DUPL ICATE Performed By: #### L 3100.5400, L100.0100, L500.4050, L501.9985, L500.4100, L501.4021 #### [facility] [address] [place], [address] Calcium Normal 7.6-11.0 [facility] Comment on above: Order Comment: DR.MA BAILEY GETS RESULTS FOR CBCD CMP LIPID ANDPROLACTIN DR. SANDOVAL GETS RESULTS FOR CBCD BMP AND TROPNIN Result Comment: DUPL ICATE Performed By: #### L 3100.5400, L100.0100, L500.4050, L501.9985, L500.4100, L501.4021 #### [facility] [address] [place], [address] CL Normal 98-108 [facility] Comment on above: Order Comment: DR.MA BAILEY GETS RESULTS FOR CBCD CMP LIPID ANDPROLACTIN DR. SANDOVAL GETS RESULTS FOR CBCD BMP AND TROPNIN Result Comment: DUPL ICATE Performed By: #### L 3100.5400, L100.0100, L500.4050, L501.9985, L500.4100, L501.4021 #### [facility] [address] [place], [address] CO2 Normal 21.0-32.0 [facility] Comment on above: Order Comment: DR.MA BAILEY GETS RESULTS FOR CBCD CMP LIPID ANDPROLACTIN DR. SANDOVAL GETS RESULTS FOR CBCD BMP AND TROPNIN Result Comment: DUPL ICATE Performed By: #### L 3100.5400, L100.0100, L500.4050, L501.9985, L500.4100, L501.4021 #### [facility] [address] [place], [address] CREAT,SERUM Normal 0.70-1.20 [facility] Comment on above: Order Comment: DR.MA BAILEY GETS RESULTS FOR CBCD CMP LIPID ANDPROLACTIN DR. SANDOVAL GETS RESULTS FOR CBCD BMP AND TROPNIN Result Comment: DUPL ICATE Performed By: #### L 3100.5400, L100.0100, L500.4050, L501.9985, L500.4100, L501.4021 #### [facility] [address] [place], [address] eGFR Normal >60 [facility] Comment on above: Order Comment: DR.MA BAILEY GETS RESULTS FOR CBCD CMP LIPID ANDPROLACTIN DR. SANDOVAL GETS RESULTS FOR CBCD BMP AND TROPNIN Result Comment: DUPL ICATE Performed By: #### L 3100.5400, L100.0100, L500.4050, L501.9985, L500.4100, L501.4021 #### [facility] [address] [place], [address] GAP Normal 5-15 [facility] Comment on above: Order Comment: DR.MA BAILEY GETS RESULTS FOR CBCD CMP LIPID ANDPROLACTIN DR. SANDOVAL GETS RESULTS FOR CBCD BMP AND TROPNIN Result Comment: DUPL ICATE Performed By: #### L 3100.5400, L100.0100, L500.4050, L501.9985, L500.4100, L501.4021 #### [facility] [address] [place], [address] GLU Normal 70-99 [facility] Comment on above: Order Comment: DR.MA BAILEY GETS RESULTS FOR CBCD CMP LIPID ANDPROLACTIN DR. SANDOVAL GETS RESULTS FOR CBCD BMP AND TROPNIN Result Comment: DUPL ICATE Performed By: #### L 3100.5400, L100.0100, L500.4050, L501.9985, L500.4100, L501.4021 #### [facility] [address] [place], [address] Potassium Normal 3.3-5.1 [facility] Comment on above: Order Comment: DR.MA BAILEY GETS RESULTS FOR CBCD CMP LIPID ANDPROLACTIN DR. SANDOVAL GETS RESULTS FOR CBCD BMP AND TROPNIN Result Comment: DUPL ICATE Performed By: #### L 3100.5400, L100.0100, L500.4050, L501.9985, L500.4100, L501.4021 #### [facility] [address] [place], [address] Basic Metabolic Profile (BMP) Normal 133-145 [facility] Comment on above: Order Comment: DR.MA BAILEY GETS RESULTS FOR CBCD CMP LIPID ANDPROLACTIN DR. SANDOVAL GETS RESULTS FOR CBCD BMP AND TROPNIN Result Comment: DUPL ICATE Performed By: #### L 3100.5400, L100.0100, L500.4050, L501.9985, L500.4100, L501.4021 #### [facility] [address] [place], [address] CBC W/Diff, Automatedon 10-0 Anisocytosis Ql (Bld) 1+ Normal [facility] Comment on above: Performed By: #### L 3100.5400, L100.0100, L500.4050, L501.9985, L500.4100, L501.4021 #### [facility] [address] [place], [address] CRPon 08-22-2025 C-REACTIVE PROT 129.00 mg/L High 0.0-3.0 [facility] Comment on above: Order Comment: CMP A ND CBCD GO TO DR. SANDOVAL ALL OTHER LABS GOT TO Performed By: #### L 3100.5400, L100.0100, L500.4050, L501.9985, L500.4100, L501.4021 #### [facility] [address] [place], [address] Comprehensive Metabolic Prof ilon 08-22-2025 Albumin [Mass/Vol] 4.1 g/dL Normal 3.5-5.0 [facility] Comment on above: Order Comment: CMP A ND CBCD GO TO DR. SANDOVAL ALL OTHER LABS GOT TO Performed By: #### L 3100.5400, L100.0100, L500.4050, L501.9985, L500.4100, L501.4021 #### [facility] [address] [place], [address] Albumin/Globulin [Mass ratio] 1.0 {ratio} Normal 0.9-2.4 [facility] Comment on above: Order Comment: CMP A ND CBCD GO TO DR. SANDOVAL ALL OTHER LABS GOT TO Performed By: #### L 3100.5400, L100.0100, L500.4050, L501.9985, L500.4100, L501.4021 #### [facility] [address] [place], [address] ALK PHOS 243 U/L High 35-104 [facility] Comment on above: Order Comment: CMP A ND CBCD GO TO DR. SANDOVAL ALL OTHER LABS GOT TO Performed By: #### L 3100.5400, L100.0100, L500.4050, L501.9985, L500.4100, L501.4021 #### [facility] [address] [place], [address] ALT [Catalytic activity/Vol] 12 U/L Normal <=34 [facility] Comment on above: Order Comment: CMP A ND CBCD GO TO DR. SANDOVAL ALL OTHER LABS GOT TO Performed By: #### L 3100.5400, L100.0100, L500.4050, L501.9985, L500.4100, L501.4021 #### [facility] [address] [place], [address] AST [Catalytic activity/Vol] 27 U/L Normal <=31 [facility] Comment on above: Order Comment: CMP A ND CBCD GO TO DR. SANDOVAL ALL OTHER LABS GOT TO Performed By: #### L 3100.5400, L100.0100, L500.4050, L501.9985, L500.4100, L501.4021 #### [facility] [address] [place], [address] Bilirubin [Mass/Vol] 0.79 mg/dL Normal 0.00-1.30 [facility] Comment on above: Order Comment: CMP A ND CBCD GO TO DR. SANDOVAL ALL OTHER LABS GOT TO Performed By: #### L 3100.5400, L100.0100, L500.4050, L501.9985, L500.4100, L501.4021 #### [facility] [address] [place], [address] BUN/CRE 16.0 RATIO Normal 10-20 [facility] Comment on above: Order Comment: CMP A ND CBCD GO TO DR. SANDOVAL ALL OTHER LABS GOT TO Performed By: #### L 3100.5400, L100.0100, L500.4050, L501.9985, L500.4100, L501.4021 #### [facility] [address] [place], [address] Calcium [Mass/Vol] 10.3 mg/dL Normal 7.6-11.0 [facility] Comment on above: Order Comment: CMP A ND CBCD GO TO DR. SANDOVAL ALL OTHER LABS GOT TO Performed By: #### L 3100.5400, L100.0100, L500.4050, L501.9985, L500.4100, L501.4021 #### [facility] [address] [place], [address] Chloride [Moles/Vol] 89 mmol/L Low 98-108 [facility] Comment on above: Order Comment: CMP A ND CBCD GO TO DR. SANDOVAL ALL OTHER LABS GOT TO Performed By: #### L 3100.5400, L100.0100, L500.4050, L501.9985, L500.4100, L501.4021 #### [facility] [address] [place], [address] CO2 [Moles/Vol] 23.7 mmol/L Normal 21.0-32.0 [facility] Comment on above: Order Comment: CMP A ND CBCD GO TO DR. SANDOVAL ALL OTHER LABS GOT TO Performed By: #### L 3100.5400, L100.0100, L500.4050, L501.9985, L500.4100, L501.4021 #### [facility] [address] [place], [address] Creatinine [Mass/Vol] 1.39 mg/dL High 0.70-1.20 [facility] Comment on above: Order Comment: CMP A ND CBCD GO TO DR. SANDOVAL ALL OTHER LABS GOT TO Performed By: #### L 3100.5400, L100.0100, L500.4050, L501.9985, L500.4100, L501.4021 #### [facility] [address] [place], [address] GAP 20 High 5-15 [facility] Comment on above: Order Comment: CMP A ND CBCD GO TO DR. SANDOVAL ALL OTHER LABS GOT TO Performed By: #### L 3100.5400, L100.0100, L500.4050, L501.9985, L500.4100, L501.4021 #### [facility] [address] [place], [place], [address] GFR/1.73 sq M.predicted among non-blacks MDRD (S/P/Bld) [Vol rate/Area] 45 mL/min/{1.73_m2} Low >60 [facility] Comment on above: Order Comment: CMP A ND CBCD GO TO DR. SANDOVAL ALL OTHER LABS GOT TO Result Comment: mL/m in/1.73m2 CKD-EPI Creatinine Equation (2020) Performed By: #### L 3100.5400, L100.0100, L500.4050, L501.9985, L500.4100, L501.4021 #### [facility] [address] [place], [place], [id number] Globulin (S) [Mass/Vol] 4.1 g/dL Normal 2.2-4.[address] [facility] [address] [facility] Comment on above: Order Comment: CMP A ND CBCD GO TO DR. SANDOVAL ALL OTHER LABS GOT TO Performed By: #### L 3100.5400, L100.0100, L500.4050, L501.9985, L500.4100, L501.4021 #### [facility] [address] [place], [address] Glucose [Mass/Vol] 193 mg/dL High 70-99 [facility] Comment on above: Order Comment: CMP A ND CBCD GO TO DR. SANDOVAL ALL OTHER LABS GOT TO Performed By: #### L 3100.5400, L100.0100, L500.4050, L501.9985, L500.4100, L501.4021 #### [facility] [address] [place], [address] Potassium [Moles/Vol] 3.2 mmol/L Low 3.3-5.1 [facility] Comment on above: Order Comment: CMP A ND CBCD GO TO DR. SANDOVAL ALL OTHER LABS GOT TO Performed By: #### L 3100.5400, L100.0100, L500.4050, L501.9985, L500.4100, L501.4021 #### [facility] [address] [place], [address] Sodium [Moles/Vol] 132 mmol/L Low 133-145 [facility] Comment on above: Order Comment: CMP A ND CBCD GO TO DR. SANDOVAL ALL OTHER LABS GOT TO Performed By: #### L 3100.5400, L100.0100, L500.4050, L501.9985, L500.4100, L501.4021 #### [facility] [address] [place], [address] T PROT 8.2 g/dL Normal 5.9-8.4 [facility] Comment on above: Order Comment: CMP A ND CBCD GO TO DR. SANDOVAL ALL OTHER LABS GOT TO Performed By: #### L 3100.5400, L100.0100, L500.4050, L501.9985, L500.4100, L501.4021 #### [facility] [address] [place], [address] Urea nitrogen [Mass/Vol] 22 mg/dL High 4-19 [facility] Comment on above: Order Comment: CMP A ND CBCD GO TO DR. SANDOVAL ALL OTHER LABS GOT TO Performed By: #### L 3100.5400, L100.0100, L500.4050, L501.9985, L500.4100, L501.4021 #### [facility] [address] [place], [address] Erythrocyte Sed Rateon 08-22 SED RATE 74 mm/hr High 0-30 [facility] Comment on above: Performed By: #### L 3100.5400, L100.0100, L500.4050, L501.9985, L500.4100, L501.4021 #### [facility] [address] [place], [address] Ferritinon 08-22-2025 Ferritin [Mass/Vol] 837 ng/mL High 22-378 [facility] Comment on above: Order Comment: CMP A ND CBCD GO TO DR. SANDOVAL ALL OTHER LABS GOT TO Performed By: #### L 3100.5400, L100.0100, L500.4050, L501.9985, L500.4100, L501.4021 #### [facility] [address] [place], [address] Iron+Iron Binding Capacityon 08-22-2025 Iron [Mass/Vol] 55 ug/dL Normal 50-170 [facility] Comment on above: Order Comment: CMP A ND CBCD GO TO DR. SANDOVAL ALL OTHER LABS GOT TO Performed By: #### L 3100.5400, L100.0100, L500.4050, L501.9985, L500.4100, L501.4021 #### [facility] [address] [place], [address] IRON SATURATION 14.2 Normal 13-59 [facility] Comment on above: Order Comment: CMP A ND CBCD GO TO DR. SANDOVAL ALL OTHER LABS GOT TO Performed By: #### L 3100.5400, L100.0100, L500.4050, L501.9985, L500.4100, L501.4021 #### [facility] [address] [place], [address] TIBC 386 ug/dL Normal 250-450 [facility] Comment on above: Order Comment: CMP A ND CBCD GO TO DR. SANDOVAL ALL OTHER LABS GOT TO Performed By: #### L 3100.5400, L100.0100, L500.4050, L501.9985, L500.4100, L501.4021 #### [facility] [address] [place], [address] UIBC 331 ug/dL Normal 228-428 [facility] Comment on above: Order Comment: CMP A ND CBCD GO TO DR. SANDOVAL ALL OTHER LABS GOT TO Performed By: #### L 3100.5400, L100.0100, L500.4050, L501.9985, L500.4100, L501.4021 #### [facility] [address] [place], [address] LDHon 08-22-2025 LDH 132 U/L Normal 84-246 [facility] Comment on above: Order Comment: CMP A ND CBCD GO TO DR. SANDOVAL ALL OTHER LABS GOT TO Performed By: #### L 3100.5400, L100.0100, L500.4050, L501.9985, L500.4100, L501.4021 #### [facility] [address] [place], [address] Magnesiumon 08-22-2025 Magnesium [Mass/Vol] 2.3 mg/dL High 1.5-2.2 [facility] Comment on above: Order Comment: CMP A ND CBCD GO TO DR. SANDOVAL ALL OTHER LABS GOT TO Performed By: #### L 3100.5400, L100.0100, L500.4050, L501.9985, L500.4100, L501.4021 #### [facility] [address] [place], [address] Phosphoruson 08-22-2025 Phosphate [Mass/Vol] 2.8 mg/dL Normal 2.7-4.5 [facility] Comment on above: Order Comment: CMP A ND CBCD GO TO DR. SANDOVAL ALL OTHER LABS GOT TO Performed By: #### L 3100.5400, L100.0100, L500.4050, L501.9985, L500.4100, L501.4021 #### [facility] [address] [place], [address] Vitamin B12on 08-22-2025 Cobalamin (Vitamin B12) [Mass/Vol] 747 pg/mL Normal 180-914 [facility] Comment on above: Order Comment: CMP A ND CBCD GO TO DR. SANDOVAL ALL OTHER LABS GOT TO Performed By: #### L 3100.5400, L100.0100, L500.4050, L501.9985, L500.4100, L501.4021 #### [facility] [address] [place], [address] CBC W/Diff, Automatedon 10 Absolute Lymph 0.97 X10 3/uL Normal 0.83-4.51 [facility] Comment on above: Performed By: #### L 3100.5400, L100.0100, L500.4050, L501.9985, L500.4100, L501.4021 #### [facility] [address] [place], [address] Absolute Neut 8.7 X10 3/uL High 2.0-7.7 [facility] Comment on above: Performed By: #### L 3100.5400, L100.0100, L500.4050, L501.9985, L500.4100, L501.4021 #### [facility] [address] [place], [address] Basophils/100 WBC (Bld) 0.5 % Normal 0-[address] [facility] Comment on above: Performed By: #### L 3100.5400, L100.0100, L500.4050, L501.9985, L500.4100, L501.4021 #### [facility] [address] [place], [address] Eosinophils/100 WBC (Bld) 0.3 % Normal 0-5 [facility] Comment on above: Performed By: #### L 3100.5400, L100.0100, L500.4050, L501.9985, L500.4100, L501.4021 #### [facility] [address] [place], [address] Erythrocyte distribution width (RBC) [Ratio] 13.3 % Normal 11.6-14.6 [facility] Comment on above: Performed By: #### L 3100.5400, L100.0100, L500.4050, L501.9985, L500.4100, L501.4021 #### [facility] [address] [place], [address] Hematocrit (Bld) [Volume fraction] 29.3 % Low 37-47 [facility] Comment on above: Performed By: #### L 3100.5400, L100.0100, L500.4050, L501.9985, L500.4100, L501.4021 #### [facility] [address] [place], [address] Hemoglobin (Bld) [Mass/Vol] 9.5 g/dL Low 12.0-15.0 [facility] Comment on above: Performed By: #### L 3100.5400, L100.0100, L500.4050, L501.9985, L500.4100, L501.4021 #### [facility] [address] [place], [address] IG% 3.000 High 0.0-0.9 [facility] Comment on above: Result Comment: IG% - Immature Granulocytes (promyelocytes, myelocytes and metamyelocytes) > 1% indicates that a LEFT SHIFT is Present. Performed By: #### L 3100.5400, L100.0100, L500.4050, L501.9985, L500.4100, L501.4021 #### [facility] [address] [place], [address] Lymphocytes/100 WBC (Bld) 9.1 % Low 19-41 [facility] Comment on above: Performed By: #### L 3100.5400, L100.0100, L500.4050, L501.9985, L500.4100, L501.4021 #### [facility] [address] [place], [address] MCH (RBC) [Entitic mass] 26.5 pg Low 27.0-32.0 [facility] Comment on above: Performed By: #### L 3100.5400, L100.0100, L500.4050, L501.9985, L500.4100, L501.4021 #### [facility] [address] [place], [address] MCHC (RBC) [Mass/Vol] 32.4 g/dL Normal 32-36 [facility] Comment on above: Performed By: #### L 3100.5400, L100.0100, L500.4050, L501.9985, L500.4100, L501.4021 #### [facility] [address] [place], [address] MCV (RBC) [Entitic vol] 81.6 fL Normal 81-[address] [facility] Comment on above: Performed By: #### L 3100.5400, L100.0100, L500.4050, L501.9985, L500.4100, L501.4021 #### [facility] [address] [place], [address] Monocytes/100 WBC (Bld) 5.2 % Normal 0-[address] [facility] Comment on above: Performed By: #### L 3100.5400, L100.0100, L500.4050, L501.9985, L500.4100, L501.4021 #### [facility] [address] [place], [address] Neutrophils/100 WBC (Bld) 81.9 % High 47-70 [facility] Comment on above: Performed By: #### L 3100.5400, L100.0100, L500.4050, L501.9985, L500.4100, L501.4021 #### [facility] [address] [place], [address] Nucleated RBC (Bld) [#/Vol] 0 10*3/uL Normal 0-5 [facility] Comment on above: Performed By: #### L 3100.5400, L100.0100, L500.4050, L501.9985, L500.4100, L501.4021 #### [facility] [address] [place], [address] Platelet mean volume (Bld) [Entitic vol] 10.0 fL Normal 6.2-12.0 [facility] Comment on above: Performed By: #### L 3100.5400, L100.0100, L500.4050, L501.9985, L500.4100, L501.4021 #### [facility] [address] [place], [address] Platelets (Bld) [#/Vol] 370 10*3/uL Normal 150-450 [facility] Comment on above: Performed By: #### L 3100.5400, L100.0100, L500.4050, L501.9985, L500.4100, L501.4021 #### [facility] [address] [place], [place], [id number] [phone] RBC (Bld) [#/Vol] 3.59 10*6/uL Low 4.2-5.4 [facility] Comment on above: Performed By: #### L 3100.5400, L100.0100, L500.4050, L501.9985, L500.4100, L501.4021 #### [facility] [address] [place], [address] RDW SD 39.8 fl Normal 35.1-43.9 [facility] Comment on above: Performed By: #### L 3100.5400, L100.0100, L500.4050, L501.9985, L500.4100, L501.4021 #### [facility] [address] [place], [address] WBC (Bld) [#/Vol] 10.6 10*3/uL Normal 4.4-11.0 [facility] Comment on above: Performed By: #### L 3100.5400, L100.0100, L500.4050, L501.9985, L500.4100, L501.4021 #### [facility] [address] [place], [place], [id number] [phone] Metabolic [facility] ilon 08-17-2025 Albumin [Mass/Vol] 4.0 g/dL Normal 3.5-5.0 [facility] Comment on above: Performed By: #### L 3100.5400, L100.0100, L500.4050, L501.9985, L500.4100, L501.4021 #### [facility] [address] [place], [address] Albumin/Globulin [Mass ratio] 1.1 {ratio} Normal 0.9-2.4 [facility] Comment on above: Performed By: #### L 3100.5400, L100.0100, L500.4050, L501.9985, L500.4100, L501.4021 #### [facility] [address] [place], [address] ALK PHOS 138 U/L High 35-104 [facility] Comment on above: Performed By: #### L 3100.5400, L100.0100, L500.4050, L501.9985, L500.4100, L501.4021 #### [facility] [address] [place], [address] ALT [Catalytic activity/Vol] 5 U/L Normal <=34 [facility] Comment on above: Performed By: #### L 3100.5400, L100.0100, L500.4050, L501.9985, L500.4100, L501.4021 #### [facility] [address] [place], [address] AST [Catalytic activity/Vol] 14 U/L Normal <=31 [facility] Comment on above: Performed By: #### L 3100.5400, L100.0100, L500.4050, L501.9985, L500.4100, L501.4021 #### [facility] [address] [place], [address] Bilirubin [Mass/Vol] 0.42 mg/dL Normal 0.00-1.30 [facility] Comment on above: Performed By: #### L 3100.5400, L100.0100, L500.4050, L501.9985, L500.4100, L501.4021 #### [facility] [address] [place], [address] BUN/CRE 14.1 RATIO Normal 10-20 [facility] Comment on above: Performed By: #### L 3100.5400, L100.0100, L500.4050, L501.9985, L500.4100, L501.4021 #### [facility] [address] [place], [address] Calcium [Mass/Vol] 9.8 mg/dL Normal 7.6-11.0 [facility] Comment on above: Performed By: #### L 3100.5400, L100.0100, L500.4050, L501.9985, L500.4100, L501.4021 #### [facility] [address] [place], [address] Chloride [Moles/Vol] 85 mmol/L Low 98-108 [facility] Comment on above: Performed By: #### L 3100.5400, L100.0100, L500.4050, L501.9985, L500.4100, L501.4021 #### [facility] [address] [place], [address] CO2 [Moles/Vol] 23.4 mmol/L Normal 21.0-32.0 [facility] Comment on above: Performed By: #### L 3100.5400, L100.0100, L500.4050, L501.9985, L500.4100, L501.4021 #### [facility] [address] [place], [address] Creatinine [Mass/Vol] 1.80 mg/dL High 0.70-1.20 [facility] Comment on above: Performed By: #### L 3100.5400, L100.0100, L500.4050, L501.9985, L500.4100, L501.4021 #### [facility] [address] [place], [address] GAP 22 High 5-15 [facility] Comment on above: Performed By: #### L 3100.5400, L100.0100, L500.4050, L501.9985, L500.4100, L501.4021 #### [facility] [address] [place], [address] GFR/1.73 sq M.predicted among non-blacks MDRD (S/P/Bld) [Vol rate/Area] 33 mL/min/{1.73_m2} Low >60 [facility] Comment on above: Result Comment: mL/m in/1.73m2 CKD-EPI Creatinine Equation (2020) Performed By: #### L 3100.5400, L100.0100, L500.4050, L501.9985, L500.4100, L501.4021 #### [facility] [address] [place], [address] Globulin (S) [Mass/Vol] 3.8 g/dL Normal 2.2-4.2 [facility] Comment on above: Performed By: #### L 3100.5400, L100.0100, L500.4050, L501.9985, L500.4100, L501.4021 #### [facility] [address] [place], [address] Glucose [Mass/Vol] 168 mg/dL High 70-99 [facility] Comment on above: Performed By: #### L 3100.5400, L100.0100, L500.4050, L501.9985, L500.4100, L501.4021 #### [facility] [address] [place], [address] Potassium [Moles/Vol] 3.2 mmol/L Low 3.3-5.1 [facility] Comment on above: Performed By: #### L 3100.5400, L100.0100, L500.4050, L501.9985, L500.4100, L501.4021 #### [facility] [address] [place], [address] Sodium [Moles/Vol] 131 mmol/L Low 133-145 [facility] Comment on above: Performed By: #### L 3100.5400, L100.0100, L500.4050, L501.9985, L500.4100, L501.4021 #### [facility] [address] [place], [address] T PROT 7.8 g/dL Normal 5.9-8.4 [facility] Comment on above: Performed By: #### L 3100.5400, L100.0100, L500.4050, L501.9985, L500.4100, L501.4021 #### [facility] [address] [place], [address] Urea nitrogen [Mass/Vol] 25 mg/dL High 4-19 [facility] Comment on above: Performed By: #### L 3100.5400, L100.0100, L500.4050, L501.9985, L500.4100, L501.4021 #### [facility] [address] [place], [address] Ferritinon 08-17-2025 Ferritin [Mass/Vol] 1236 ng/mL High 22-378 [facility] Comment on above: Performed By: #### L 3100.5400, L100.0100, L500.4050, L501.9985, L500.4100, L501.4021 #### [facility] [address] [place], [address] Free T3on 08-17-2025 Free T3 [Mass/Vol] 1.8 pg/mL Low 2.18-3.98 [facility] Comment on above: Performed By: #### L 3100.5400, L100.0100, L500.4050, L501.9985, L500.4100, L501.4021 #### [facility] [address] [place], [address] Iron+Iron Binding Capacityon 08-17-2025 Iron [Mass/Vol] 52 ug/dL Normal 50-170 [facility] Comment on above: Performed By: #### L 3100.5400, L100.0100, L500.4050, L501.9985, L500.4100, L501.4021 #### [facility] [address] [place], [address] IRON SATURATION 15.0 Normal 13-59 [facility] Comment on above: Performed By: #### L 3100.5400, L100.0100, L500.4050, L501.9985, L500.4100, L501.4021 #### [facility] [address] [place], [address] TIBC 345 ug/dL Normal 250-450 [facility] Comment on above: Performed By: #### L 3100.5400, L100.0100, L500.4050, L501.9985, L500.4100, L501.4021 #### [facility] [address] [place], [address] UIBC 293 ug/dL Normal 228-428 [facility] Comment on above: Performed By: #### L 3100.5400, L100.0100, L500.4050, L501.9985, L500.4100, L501.4021 #### [facility] [address] [place], [address] T4 Free Directon 08-17-2025 T4 FREE DIRECT 1.50 ng/dL High 0.76-1.46 [facility] Comment on above: Performed By: #### L 3100.5400, L100.0100, L500.4050, L501.9985, L500.4100, L501.4021 #### [facility] [address] [place], [address] Thyroid Stim Hormone (TSH)on 08-17-2025 TSH 3.370 uIU/mL Normal 0.300-4.200 [facility] Comment on above: Performed By: #### L 3100.5400, L100.0100, L500.4050, L501.9985, L500.4100, L501.4021 #### [facility] [address] [place], [address] Fluoroscopy 1 Hr or Lesson 0 08-13-2025 Fluoroscopy 1 Hr or Less [facility] [address] [place] [address] Fluoroscopy 1 Hr or Less MR#: [id number] Acct: [id number] Name: HEIDI ANDREWS Rep #: [id number] : 1970 F 55 From: Imani Mcfarland MD PCP: Dr. Red Sandoval MD Status: REG CLI Study: Fluoroscopy 1 Hr or Less Date of Exam: 5 Exam# [id number] Ordering Dr: Nikolai Kim MD PROCEDURE: FLUOROSCOPY 1 HR OR LESS 08/13/2025 REASON FOR EXAM: Short of breath TECHNIQUE: Procedure Code: RADFL Modality: DX Procedure: FLUOROSCOPY 1 HR OR LESS COMPARISON: Chest x-ray dated 06/15/2025 FINDINGS: A sniff test was performed with demonstration of chronic elevation of the right hemidiaphragm. The diaphragmatic excursion is symmetric however slightly limited on the right. RAD/Fluoroscopy 1 Hr or Less IMPRESSION: Mild decrease in the right diaphragmatic excursion suggestive of mild paralysis. Reading Location: [place] [address] CC: Dr. Red Sandoval MD; Dr. Nikolai Kim MD Briar Cutter: Signed Normal [facility] Absolute lymphocyte countOrd ered By: Red Sandoval on 06-27-2025 Lymphocytes Auto (Unsp spec) [#/Vol] 1.04 10*3/uL 0.83-4.51 [facility] Absolute neutrophil countOrd ered By: Red Sandoval on 06-27-2025 Neutrophils (Bld) [#/Vol] 4.1 10*3/uL 2.0-7.7 [facility] Anion gap in Serum or Plasma Ordered By: Red Sandoval on 06-27-2025 Anion gap [Moles/Vol] 17 mmol/L High 5-15 [facility] Automated lymphocyte count a s percentage of total leukocytesOrdered By: Red Sandoval on 06-27-2025 Lymphocytes/100 WBC Auto (Unsp spec) 18.2 % Low 19-41 [facility] BUN/creatinine ratioOrdered By: Red Sandoval on 06-27-2025 Urea nitrogen/Creatinine [Mass ratio] 10.8 mg/mg 10- [facility] Basic Metabolic Profile (BMP )on 06-27-2025 BUN/CRE 10.8 RATIO Normal - [facility] Comment on above: Performed By: #### L 3100.5400, L100.0100, L500.4050, L501.9985, L500.4100, L501.4021 #### [facility] [address] [place], [address] Calcium [Mass/Vol] 8.7 mg/dL Normal 7.6-11.0 [facility] Comment on above: Performed By: #### L 3100.5400, L100.0100, L500.4050, L501.9985, L500.4100, L501.4021 #### [facility] [address] [place], [address] Chloride [Moles/Vol] 98 mmol/L Normal 98-108 [facility] Comment on above: Performed By: #### L 3100.5400, L100.0100, L500.4050, L501.9985, L500.4100, L501.4021 #### [facility] [address] [place], [address] CO2 [Moles/Vol] 24.2 mmol/L Normal 21.0-32.0 [facility] Comment on above: Performed By: #### L 3100.5400, L100.0100, L500.4050, L501.9985, L500.4100, L501.4021 #### [facility] [address] [place], [address] Creatinine [Mass/Vol] 0.93 mg/dL Normal 0.70-1.20 [facility] Comment on above: Performed By: #### L 3100.5400, L100.0100, L500.4050, L501.9985, L500.4100, L501.4021 #### [facility] [address] [place], [address] GAP 17 High 5-15 [facility] Comment on above: Performed By: #### L 3100.5400, L100.0100, L500.4050, L501.9985, L500.4100, L501.4021 #### [facility] [address] [place], [address] GFR/1.73 sq M.predicted among non-blacks MDRD (S/P/Bld) [Vol rate/Area] 73 mL/min/{1.73_m2} Normal >60 [facility] Comment on above: Result Comment: mL/m in/1.73m2 CKD-EPI Creatinine Equation (2020) Performed By: #### L 3100.5400, L100.0100, L500.4050, L501.9985, L500.4100, L501.4021 #### [facility] [address] [place], [address] Glucose [Mass/Vol] 198 mg/dL High 70-99 [facility] Comment on above: Performed By: #### L 3100.5400, L100.0100, L500.4050, L501.9985, L500.4100, L501.4021 #### [facility] [address] [place], [address] Potassium [Moles/Vol] 3.7 mmol/L Normal 3.3-5.1 [facility] Comment on above: Performed By: #### L 3100.5400, L100.0100, L500.4050, L501.9985, L500.4100, L501.4021 #### [facility] [address] [place], [address] Sodium [Moles/Vol] 139 mmol/L Normal 133-145 [facility] Comment on above: Performed By: #### L 3100.5400, L100.0100, L500.4050, L501.9985, L500.4100, L501.4021 #### [facility] [address] [place], [address] Urea nitrogen [Mass/Vol] 10 mg/dL Normal 4-19 [facility] Comment on above: Performed By: #### L 3100.5400, L100.0100, L500.4050, L501.9985, L500.4100, L501.4021 #### [facility] [address] [place], [address] Basophil percentageOrdered B y: Red Sandoval on 06-27-2025 Basophils/100 WBC (Bld) 0.7 % 0-[address] [facility] CBC W/Diff, Automatedon 06-15 Absolute Lymph 1.04 X10 3/uL Normal 0.83-4.51 [facility] Comment on above: Performed By: #### L 3100.5400, L100.0100, L500.4050, L501.9985, L500.4100, L501.4021 #### [facility] [address] [place], [address] Absolute Neut 4.1 X10 3/uL Normal 2.0-7.7 [facility] Comment on above: Performed By: #### L 3100.5400, L100.0100, L500.4050, L501.9985, L500.4100, L501.4021 #### [facility] [address] [place], [address] Basophils/100 WBC (Bld) 0.7 % Normal 0-[address] [facility] Comment on above: Performed By: #### L 3100.5400, L100.0100, L500.4050, L501.9985, L500.4100, L501.4021 #### [facility] [address] [place], [address] Eosinophils/100 WBC (Bld) 3.8 % Normal 0-5 [facility] Comment on above: Performed By: #### L 3100.5400, L100.0100, L500.4050, L501.9985, L500.4100, L501.4021 #### [facility] [address] [place], [address] Erythrocyte distribution width (RBC) [Ratio] 13.9 % Normal 11.6-14.6 [facility] Comment on above: Performed By: #### L 3100.5400, L100.0100, L500.4050, L501.9985, L500.4100, L501.4021 #### [facility] [address] [place], [address] Hematocrit (Bld) [Volume fraction] 33.6 % Low 37-47 [facility] Comment on above: Performed By: #### L 3100.5400, L100.0100, L500.4050, L501.9985, L500.4100, L501.4021 #### [facility] [address] [place], [address] Hemoglobin (Bld) [Mass/Vol] 10.7 g/dL Low 12.0-15.0 [facility] Comment on above: Performed By: #### L 3100.5400, L100.0100, L500.4050, L501.9985, L500.4100, L501.4021 #### [facility] [address] [place], [address] IG% 1.000 High 0.0-0.9 [facility] Comment on above: Result Comment: IG% - Immature Granulocytes (promyelocytes, myelocytes and metamyelocytes) > 1% indicates that a LEFT SHIFT is Present. Performed By: #### L 3100.5400, L100.0100, L500.4050, L501.9985, L500.4100, L501.4021 #### [facility] [address] [place], [address] Lymphocytes/100 WBC (Bld) 18.2 % Low 19-41 [facility] Comment on above: Performed By: #### L 3100.5400, L100.0100, L500.4050, L501.9985, L500.4100, L501.4021 #### [facility] [address] [place], [address] MCH (RBC) [Entitic mass] 27.9 pg Normal 27.0-32.0 [facility] Comment on above: Performed By: #### L 3100.5400, L100.0100, L500.4050, L501.9985, L500.4100, L501.4021 #### [facility] [address] [place], [address] MCHC (RBC) [Mass/Vol] 31.8 g/dL Low 32-36 [facility] Comment on above: Performed By: #### L 3100.5400, L100.0100, L500.4050, L501.9985, L500.4100, L501.4021 #### [facility] [address] [place], [address] MCV (RBC) [Entitic vol] 87.5 fL Normal 81-[address] [facility] Comment on above: Performed By: #### L 3100.5400, L100.0100, L500.4050, L501.9985, L500.4100, L501.4021 #### [facility] [address] [place], [address] Monocytes/100 WBC (Bld) 5.2 % Normal 0-[address] [facility] Comment on above: Performed By: #### L 3100.5400, L100.0100, L500.4050, L501.9985, L500.4100, L501.4021 #### [facility] [address] [place], [address] Neutrophils/100 WBC (Bld) 71.1 % High 47-70 [facility] Comment on above: Performed By: #### L 3100.5400, L100.0100, L500.4050, L501.9985, L500.4100, L501.4021 #### [facility] [address] [place], [address] Nucleated RBC (Bld) [#/Vol] 0 10*3/uL Normal 0-5 [facility] Comment on above: Performed By: #### L 3100.5400, L100.0100, L500.4050, L501.9985, L500.4100, L501.4021 #### [facility] [address] [place], [address] Platelet mean volume (Bld) [Entitic vol] 9.9 fL Normal 6.2-12.0 [facility] Comment on above: Performed By: #### L 3100.5400, L100.0100, L500.4050, L501.9985, L500.4100, L501.4021 #### [facility] [address] [place], [address] Platelets (Bld) [#/Vol] 244 10*3/uL Normal 150-450 [facility] Comment on above: Performed By: #### L 3100.5400, L100.0100, L500.4050, L501.9985, L500.4100, L501.4021 #### [facility] [address] [place], [address] RBC (Bld) [#/Vol] 3.84 10*6/uL Low 4.2-5.4 [facility] Comment on above: Performed By: #### L 3100.5400, L100.0100, L500.4050, L501.9985, L500.4100, L501.4021 #### [facility] [address] [place], [address] RDW SD 43.7 fl Normal 35.1-43.9 [facility] Comment on above: Performed By: #### L 3100.5400, L100.0100, L500.4050, L501.9985, L500.4100, L501.4021 #### [facility] [address] [place], [address] WBC (Bld) [#/Vol] 5.7 10*3/uL Normal 4.4-11.0 [facility] Comment on above: Performed By: #### L 3100.5400, L100.0100, L500.4050, L501.9985, L500.4100, L501.4021 #### [facility] [address] [place], [address] Calculated very low density lipoprotein (VLDL) cholesterol measurementOrdered By: Red Sandoval on 06-27-2025 Calculated very low density lipoprotein (VLDL) cholesterol measurement 45 mg/dL High 5-40 [facility] Carbon dioxide, total [Moles /volume] in Central venous bloodOrdered By: Red Sandoval on 06-27-2025 CO2 [Moles/Vol] 24.2 mmol/L 21.0-32.0 [facility] Chloride assayOrdered By: Yousuf Sandoval on 06-27-2025 Chloride [Moles/Vol] 98 mmol/L 98-108 [facility] Eosinophil percentageOrdered By: Red Sandoval on 06-27-2025 Eosinophils/100 WBC (Bld) 3.8 % 0-5 [facility] Erythrocyte distribution wid th ratioOrdered By: Red Sandoval on 06-27-2025 Erythrocyte distribution width (RBC) [Ratio] 13.9 % 11.6-14.6 [facility] Erythrocyte distribution wid th standard deviationOrdered By: Red Sandoval on 06-27-2025 Erythrocyte distribution width (RBC) [Ratio] 43.7 fl 35.1-43.9 [facility] Ferritinon 06-27-2025 Ferritin [Mass/Vol] 108 ng/mL Normal 22-378 [facility] Comment on above: Performed By: #### L 3100.5400, L100.0100, L500.4050, L501.9985, L500.4100, L501.4021 #### [facility] [place], [address] Glomerular filtration rate ( GFR) estimation/1.73 sq m using serum, plasma, or whole bOrdered By: Red Sandoval on 06-27-2025 GFR/1.73 sq M.predicted among non-blacks MDRD (S/P/Bld) [Vol rate/Area] 73 mL/min/{1.73_m2} >60 [facility] Comment on above: mL/min/1.73m2 CKD-EP I Creatinine Equation (2020) Hematocrit Auto (Bld) [Volum e fraction]Ordered By: Red Sandoval on 06-27-2025 Hematocrit (Bld) [Volume fraction] 33.6 % Low 37-47 [facility] Hemoglobin measurementOrdere d By: Red Sandoval on 06-27-2025 Hemoglobin (Bld) [Mass/Vol] 10.7 g/dL Low 12.0-15.0 [facility] Immature granulocytes/100 WB C Auto (Bld)Ordered By: Red Sandoval on 06-27-2025 Immature granulocytes/100 WBC (Bld) 1.000 % High 0.0-0.9 [facility] Comment on above: IG% - Immature Granu locytes (promyelocytes, myelocytes and metamyelocytes) > 1% indicates that a LEFT SHIFT is Present. Iron measurement (mass/mass) Ordered By: Red Sandoval on 06-27-2025 Iron (Unsp spec) [Mass/Mass] 53 ug/dL 50-170 [facility] Iron+Iron Binding Capacityon 06-27-2025 Iron [Mass/Vol] 53 ug/dL Normal 50-170 [facility] Comment on above: Performed By: #### L 3100.5400, L100.0100, L500.4050, L501.9985, L500.4100, L501.4021 #### [facility] [address] [place] [address] IRON SATURATION 14.0 Normal 13-59 [facility] Comment on above: Performed By: #### L 3100.5400, L100.0100, L500.4050, L501.9985, L500.4100, L501.4021 #### [facility] [address] [facility] [address] TIBC 377 ug/dL Normal 250-450 [facility] Comment on above: Performed By: #### L 3100.5400, L100.0100, L500.4050, L501.9985, L500.4100, L501.4021 #### [facility] [address] [place] [address] UIBC 324 ug/dL Normal 228-428 [facility] Comment on above: Performed By: #### L 3100.5400, L100.0100, L500.4050, L501.9985, L500.4100, L501.4021 #### [facility] [address] [facility] [address] LDL calc ser/plasOrdered By: Red Sandoval on 06-27-2025 Cholesterol in LDL [Mass/Vol] 102 mg/dL [facility] Comment on above: Uwfsmwxgtk=713-708 m g/dL & Higher Ouqf=735 mg/dL or greaterFriedwald Equation for LDL-C Lipid Profileon 06-27-2025 CHOL:HDL 5.31 Normal [facility] Comment on above: Performed By: #### L 3100.5400, L100.0100, L500.4050, L501.9985, L500.4100, L501.4021 #### [facility] [address] [place], [address] Cholesterol [Mass/Vol] 181 mg/dL Normal <=200 [facility] Comment on above: Result Comment: Chol esterol level, Desirable <200 mg/dL Borderline high cholesterol 200-239 mg/dL High cholesterol >=240 mg/dL Recommendations of the NCEP Adult Treatment Panel for the following risk-cutoff thresholds for the [place] population. Performed By: #### L 3100.5400, L100.0100, L500.4050, L501.9985, L500.4100, L501.4021 #### [facility] [address] [place], [address] Cholesterol in HDL [Mass/Vol] 34 mg/dL Low [facility] Comment on above: Result Comment: Mayda onal Cholesterol Education Program (NCEP) guidelines: <40 mg/dL: Low HDL-cholesterol (major risk factor for CHD) >= 60 mg/dL: High HDL-cholesterol (negative risk factor for CHD) HDL-cholesterol is affected by a number of factors, e.g. smoking, exercise, hormones, sex and age. Performed By: #### L 3100.5400, L100.0100, L500.4050, L501.9985, L500.4100, L501.4021 #### [facility] [address] [place], [address] Cholesterol in LDL [Mass/Vol] 102 mg/dL Normal [facility] Comment on above: Result Comment: Bord vwqynh=051-391 mg/dL Higher Pcov=992 mg/dL or greater Friedwald Equation for LDL-C Performed By: #### L 3100.5400, L100.0100, L500.4050, L501.9985, L500.4100, L501.4021 #### [facility] [address] [place], [address] Cholesterol in VLDL [Mass/Vol] 45 mg/dL High 5-40 [facility] Comment on above: Performed By: #### L 3100.5400, L100.0100, L500.4050, L501.9985, L500.4100, L501.4021 #### [facility] [address] [place], [address] Triglyceride [Mass/Vol] 224 mg/dL High [facility] Comment on above: Result Comment: The drugs N-Acetylcysteine and Metamizole may falsely depress this assay. Normal range: <150 mg/dL Borderline High: 150-199 mg/dL High: 200-499 mg/dL Very High: >500 mg/dL Performed By: #### L 3100.5400, L100.0100, L500.4050, L501.9985, L500.4100, L501.4021 #### [facility] [address] [place], [place], [id number] MCV (mean corpuscular volume ) determinationOrdered By: Red Sandoval on 06-27-2025 MCV (RBC) [Entitic vol] 87.5 fL 81-99 [facility] Mean corpuscular hemoglobin (MCH) determinationOrdered By: Red Sandoval on 06-27-2025 MCH (RBC) [Entitic mass] 27.9 pg 27.0-32.0 [facility] Mean corpuscular hemoglobin concentration (MCHC) determinationOrdered By: Red Sandoval on 06-27-2025 MCHC (RBC) [Mass/Vol] 31.8 g/dL Low 32-36 [facility] Mean platelet volume determi nationOrdered By: Red Sandoval on 06-27-2025 Platelet mean volume (Bld) [Entitic vol] 9.9 fL 6.2-12.0 [facility] Microalb:Creat Ratio,Random URon 06-27-2025 Creatinine [Mass/Vol] 91.20 mg/dL Normal 28.00-217.00 [facility] Comment on above: Performed By: #### L 3100.5400, L100.0100, L500.4050, L501.9985, L500.4100, L501.4021 #### [facility] [address] [place], [place], [id number] [phone] MALB:CREAT UNABLE TO CALCULATE Normal <30 mg/g CRE [facility] Comment on above: Performed By: #### L 3100.5400, L100.0100, L500.4050, L501.9985, L500.4100, L501.4021 #### [facility] [address] [place], [place], [id number] [phone] MICROALBUMIN,UR < 12.0 Normal <20 mg/L [facility] Comment on above: Performed By: #### L 3100.5400, L100.0100, L500.4050, L501.9985, L500.4100, L501.4021 #### [facility] [address] [facility] [place], [place], [id number] Microalbumin/creat ratio urO rdered By: Red Sandoval on 06-27-2025 Urine microalbumin/creatinine ratio measurement UNABLE TO CALCULATE mg/g CRE <30 [facility] Monocyte percentageOrdered B y: Red Sandoval on 06-27-2025 Monocytes/100 WBC (Bld) 5.2 % 0-[address] [facility] Neutrophil percentageOrdered By: Red Sandoval on 06-27-2025 Neutrophils/100 WBC (Bld) 71.1 % High 47-70 [facility] No Panel InformationOrdered By: Red Sandoval on 06-27-2025 Unsaturated Iron Binding Capacity 324 ug/dL 228-428 [facility] Nucleated red blood cell per centageOrdered By: Red Sandoval on 06-27-2025 Nucleated RBC/100 WBC (Bld) [Ratio] 0 % 0-5 [facility] Platelet countOrdered By: Yousuf Sandoval on 06-27-2025 Platelets (Bld) [#/Vol] 244 10*3/uL 150-450 [facility] Potassium measurement (mass/ volume)Ordered By: Red Sandoval on 06-27-2025 Potassium (Unsp spec) [Mass/Vol] 3.7 mmol/L 3.3-5.1 [facility] RBC Auto (Bld) [#/Vol]Ordere d By: Red Sandoval on 06-27-2025 RBC (Bld) [#/Vol] 3.84 10*6/uL Low 4.2-5.4 [facility] Random urine creatinine sandy urement (mass/volume)Ordered By: Red Sandoval on 06-27-2025 Creatinine Unsp time (U) [Mass/Vol] 91.20 mg/dL 28.00-217.00 [facility] Screening total cholesterol/ high density lipoprotein (HDL) cholesterol ratioOrdered By: Red Sandoval on 06-27-2025 Cholesterol.total/Choles terol in HDL [Mass ratio] 5.31 {ratio} [facility] Serum creatinine measurement (mass/volume)Ordered By: Red Sandoval on 06-27-2025 Creatinine [Mass/Vol] 0.93 mg/dL 0.70-1.20 [facility] Serum glucose measurement (m ass/volume)Ordered By: Red Sandoval on 06-27-2025 Glucose [Mass/Vol] 198 mg/dL High 70-99 [facility] Serum or plasma calcium sandy urement (mass/volume)Ordered By: Red Sandoval on 06-27-2025 Calcium [Mass/Vol] 8.7 mg/dL 7.6-11.0 [facility] Serum or plasma cholesterol in HDL measurement (mass/volume)Ordered By: Red Sandoval on 06-27-2025 Cholesterol in HDL [Mass/Vol] 34 mg/dL Low >40 [facility] Comment on above: National Cholesterol Education Program (NCEP) guidelines:<40 mg/dL: Low HDL-cholesterol (major risk factor for CHD)>= 60 mg/dL: High HDL-cholesterol (negative risk factor for CHD)HDL-cholesterol is affected by a number of factors, e.g. smoking, exercise, hormones, sex and age. Serum or plasma cholesterol measurement (mass/volume)Ordered By: Red Sandoval on 06-27-2025 Cholesterol [Mass/Vol] 181 mg/dL <201 [facility] Comment on above: Cholesterol level, D esirable <200 mg/dLBorderline high cholesterol 200-239 mg/dLHigh cholesterol >=240 mg/dLRecommendations of the NCEP Adult Treatment Panel for the following risk-cutoff thresholds for the [place] population. Serum or plasma ferritin darrel surement (mass/volume)Ordered By: Red Sandoval on 06-27-2025 Ferritin [Mass/Vol] 108 ng/mL 22-378 [facility] Serum or plasma iron saturat ion measurement (mass fraction)Ordered By: Red Sandoval on 06-27-2025 Iron saturation [Mass fraction] 14.0 % 13-59 [facility] Serum or plasma urea nitroge n measurement (mass/volume)Ordered By: Red Sandoval on 06-27-2025 Urea nitrogen [Mass/Vol] 10 mg/dL 4-19 [facility] Sodium levelOrdered By: Red Sandoval on 06-27-2025 Sodium [Moles/Vol] 139 mmol/L 133-145 [facility] Triglycerides measurementOrd ered By: Red Sandoval on 06-27-2025 Triglyceride [Mass/Vol] 224 mg/dL High <[address] [facility] Comment on above: The drugs N-Acetylcy steine and Metamizole may falsely depress this assay. Normal range: <150 mg/dLBorderline High: 150-199 mg/dLHigh: 200-499 mg/dLVery High: >500 mg/dL Urine albumin measurement wi detection limit of 20 mg/L or less (mass/volume)Ordered By: Red Sandoval on 06-27-2025 Albumin DL <= 20 mg/L (U) [Mass/Vol] < 12.0 mg/L <20 mg/L [facility] White blood cell (WBC) count Ordered By: Red Sandoval on 06-27-2025 WBC (Bld) [#/Vol] 5.7 10*3/uL 4.4-11.0 [facility] Chest PA and Lateralon 06-15 Chest PA and Lateral [facility] [address] [place] [address] Chest PA and Lateral MR#: [id number] Acct: [id number] Name: HEIDI ANDREWS Rep #: [id number] : 1970 F 55 From: Magdy Bowling PCP: Dr. Red Sandoval MD Status: REG CLI Study: Chest PA and Lateral Date of Exam: 06/15/25 Exam# [id number] Ordering Dr: Nikolai Kim MD PROCEDURE: CHEST PA AND LATERAL 06/15/2025 REASON FOR EXAM: SOB TECHNIQUE: CHEST PA AND LATERAL COMPARISON: None. RAD/Chest PA and Lateral IMPRESSION: Mild right hemidiaphragm elevation/eventratio n is seen. Lungs appear clear of acute disease. No pleural effusion or pneumothorax is noted. The cardiomediastinal silhouette is within the normal range. Mild thoracic spine degenerative changes are also seen. No evidence of acute cardiopulmonary disease. Reading Location: [place] [address] CC: Dr. Red Sandoval MD; Dr. Nikolai Kim MD Briar Cutter: Signed Normal [facility] Absolute lymphocyte countOrd ered By: Glen Chapman on 06-04-2025 Lymphocytes Auto (Unsp spec) [#/Vol] 1.05 10*3/uL 0.83-4.51 [facility] Absolute neutrophil countOrd ered By: Glen Chapman on 06-04-2025 Neutrophils (Bld) [#/Vol] 4.4 10*3/uL 2.0-7.7 [facility] Anion gap in Serum or Plasma Ordered By: Glen Chapman on 06-04-2025 Anion gap [Moles/Vol] 15 mmol/L 5-15 [facility] Automated lymphocyte count a s percentage of total leukocytesOrdered By: Glen Chapman on 06-04-2025 Lymphocytes/100 WBC Auto (Unsp spec) 17.1 % Low 19-41 [facility] BUN/creatinine ratioOrdered By: Glen Chapman on 06-04-2025 Urea nitrogen/Creatinine [Mass ratio] 10.3 mg/mg 10-20 [facility] Basophil percentageOrdered B y: Glen Chapman on 06-04-2025 Basophils/100 WBC (Bld) 0.5 % 0-[address] [facility] Bilirubin, totalOrdered By: Glne Chapman on 06-04-2025 Bilirubin [Mass/Vol] 0.26 mg/dL 0.00-1.30 [facility] CBC W/Diff, Automatedon 05-16-2024 Absolute Lymph 1.05 X10 3/uL Normal 0.83-4.51 [facility] Comment on above: Performed By: #### L 3100.5400, L100.0100, L500.4050, L501.9985, L500.4100, L501.4021 #### [facility] [address] [place], [address] Absolute Neut 4.4 X10 3/uL Normal 2.0-7.7 [facility] Comment on above: Performed By: #### L 3100.5400, L100.0100, L500.4050, L501.9985, L500.4100, L501.4021 #### [facility] [address] [place], [address] Basophils/100 WBC (Bld) 0.5 % Normal 0-[address] [facility] Comment on above: Performed By: #### L 3100.5400, L100.0100, L500.4050, L501.9985, L500.4100, L501.4021 #### [facility] [address] [place], [address] Eosinophils/100 WBC (Bld) 4.7 % Normal 0-5 [facility] Comment on above: Performed By: #### L 3100.5400, L100.0100, L500.4050, L501.9985, L500.4100, L501.4021 #### [facility] [address] [place], [address] Erythrocyte distribution width (RBC) [Ratio] 15.2 % High 11.6-14.6 [facility] Comment on above: Performed By: #### L 3100.5400, L100.0100, L500.4050, L501.9985, L500.4100, L501.4021 #### [facility] [address] [place], [address] Hematocrit (Bld) [Volume fraction] 35.0 % Low 37-47 [facility] Comment on above: Performed By: #### L 3100.5400, L100.0100, L500.4050, L501.9985, L500.4100, L501.4021 #### [facility] [address] [place], [address] Hemoglobin (Bld) [Mass/Vol] 11.3 g/dL Low 12.0-15.0 [facility] Comment on above: Performed By: #### L 3100.5400, L100.0100, L500.4050, L501.9985, L500.4100, L501.4021 #### [facility] [address] [place], [address] IG% 1.300 High 0.0-0.9 [facility] Comment on above: Result Comment: IG% - Immature Granulocytes (promyelocytes, myelocytes and metamyelocytes) > 1% indicates that a LEFT SHIFT is Present. Performed By: #### L 3100.5400, L100.0100, L500.4050, L501.9985, L500.4100, L501.4021 #### [facility] [address] [place], [address] Lymphocytes/100 WBC (Bld) 17.1 % Low 19-41 [facility] Comment on above: Performed By: #### L 3100.5400, L100.0100, L500.4050, L501.9985, L500.4100, L501.4021 #### [facility] [address] [place], [address] MCH (RBC) [Entitic mass] 28.0 pg Normal 27.0-32.0 [facility] Comment on above: Performed By: #### L 3100.5400, L100.0100, L500.4050, L501.9985, L500.4100, L501.4021 #### [facility] [address] [place], [address] MCHC (RBC) [Mass/Vol] 32.3 g/dL Normal 32-36 [facility] Comment on above: Performed By: #### L 3100.5400, L100.0100, L500.4050, L501.9985, L500.4100, L501.4021 #### [facility] [address] [place], [address] MCV (RBC) [Entitic vol] 86.6 fL Normal 81-99 [facility] Comment on above: Performed By: #### L 3100.5400, L100.0100, L500.4050, L501.9985, L500.4100, L501.4021 #### [facility] [address] [place], [address] Monocytes/100 WBC (Bld) 5.5 % Normal 0-[address] [facility] Comment on above: Performed By: #### L 3100.5400, L100.0100, L500.4050, L501.9985, L500.4100, L501.4021 #### [facility] [address] [place], [address] Neutrophils/100 WBC (Bld) 70.9 % High 47-70 [facility] Comment on above: Performed By: #### L 3100.5400, L100.0100, L500.4050, L501.9985, L500.4100, L501.4021 #### [facility] [address] [place], [address] Nucleated RBC (Bld) [#/Vol] 0 10*3/uL Normal 0-5 [facility] Comment on above: Performed By: #### L 3100.5400, L100.0100, L500.4050, L501.9985, L500.4100, L501.4021 #### [facility] [address] [place], [address] Platelet mean volume (Bld) [Entitic vol] 9.6 fL Normal 6.2-12.0 [facility] Comment on above: Performed By: #### L 3100.5400, L100.0100, L500.4050, L501.9985, L500.4100, L501.4021 #### [facility] [address] [place], [address] Platelets (Bld) [#/Vol] 241 10*3/uL Normal 150-450 [facility] Comment on above: Performed By: #### L 3100.5400, L100.0100, L500.4050, L501.9985, L500.4100, L501.4021 #### [facility] [address] [place], [address] RBC (Bld) [#/Vol] 4.04 10*6/uL Low 4.2-5.4 [facility] Comment on above: Performed By: #### L 3100.5400, L100.0100, L500.4050, L501.9985, L500.4100, L501.4021 #### [facility] [address] [place], [address] RDW SD 47.2 fl High 35.1-43.9 [facility] Comment on above: Performed By: #### L 3100.5400, L100.0100, L500.4050, L501.9985, L500.4100, L501.4021 #### [facility] [address] [place], [address] WBC (Bld) [#/Vol] 6.2 10*3/uL Normal 4.4-11.0 [facility] Comment on above: Performed By: #### L 3100.5400, L100.0100, L500.4050, L501.9985, L500.4100, L501.4021 #### [facility] [address] [place], [address] CRPon 06-04-2025 C-REACTIVE PROT 23.30 mg/L High 0.0-3.0 [facility] Comment on above: Performed By: #### L 3100.5400, L100.0100, L500.4050, L501.9985, L500.4100, L501.4021 #### [facility] [address] [place], [address] Carbon dioxide, total [Moles /volume] in Central venous bloodOrdered By: Glen Chapman on 06-04-2025 CO2 [Moles/Vol] 24.0 mmol/L 21.0-32.0 [facility] Chloride assayOrdered By: Jaimee Chapman on 06-04-2025 Chloride [Moles/Vol] 96 mmol/L Low 98-108 [facility] Comprehensive Metabolic Prof ilon 06-04-2025 Albumin [Mass/Vol] 4.2 g/dL Normal 3.5-5.0 [facility] Comment on above: Performed By: #### L 3100.5400, L100.0100, L500.4050, L501.9985, L500.4100, L501.4021 #### [facility] [address] [place], [address] Albumin/Globulin [Mass ratio] 1.6 {ratio} Normal 0.9-2.4 [facility] Comment on above: Performed By: #### L 3100.5400, L100.0100, L500.4050, L501.9985, L500.4100, L501.4021 #### [facility] [address] [place], [address] ALK PHOS 83 U/L Normal 35-104 [facility] Comment on above: Performed By: #### L 3100.5400, L100.0100, L500.4050, L501.9985, L500.4100, L501.4021 #### [facility] [address] [place], [address] ALT [Catalytic activity/Vol] 12 U/L Normal <=34 [facility] Comment on above: Performed By: #### L 3100.5400, L100.0100, L500.4050, L501.9985, L500.4100, L501.4021 #### [facility] [address] [place], [address] AST [Catalytic activity/Vol] 17 U/L Normal <=31 [facility] Comment on above: Performed By: #### L 3100.5400, L100.0100, L500.4050, L501.9985, L500.4100, L501.4021 #### [facility] [address] [place], [address] Bilirubin [Mass/Vol] 0.26 mg/dL Normal 0.00-1.30 [facility] Comment on above: Performed By: #### L 3100.5400, L100.0100, L500.4050, L501.9985, L500.4100, L501.4021 #### [facility] [address] [place], [address] BUN/CRE 10.3 RATIO Normal 10-20 [facility] Comment on above: Performed By: #### L 3100.5400, L100.0100, L500.4050, L501.9985, L500.4100, L501.4021 #### [facility] [address] [place], [address] Calcium [Mass/Vol] 9.1 mg/dL Normal 7.6-11.0 [facility] Comment on above: Performed By: #### L 3100.5400, L100.0100, L500.4050, L501.9985, L500.4100, L501.4021 #### [facility] [address] [place], [address] Chloride [Moles/Vol] 96 mmol/L Low 98-108 [facility] Comment on above: Performed By: #### L 3100.5400, L100.0100, L500.4050, L501.9985, L500.4100, L501.4021 #### [facility] [address] [place], [address] CO2 [Moles/Vol] 24.0 mmol/L Normal 21.0-32.0 [facility] Comment on above: Performed By: #### L 3100.5400, L100.0100, L500.4050, L501.9985, L500.4100, L501.4021 #### [facility] [address] [place], [address] Creatinine [Mass/Vol] 0.83 mg/dL Normal 0.70-1.20 [facility] Comment on above: Performed By: #### L 3100.5400, L100.0100, L500.4050, L501.9985, L500.4100, L501.4021 #### [facility] [address] [place], [address] ECRCL 104.65 ml/min Normal 50-250 [facility] Comment on above: Performed By: #### L 3100.5400, L100.0100, L500.4050, L501.9985, L500.4100, L501.4021 #### [facility] [address] [place], [address] GAP 15 Normal 5-15 [facility] Comment on above: Performed By: #### L 3100.5400, L100.0100, L500.4050, L501.9985, L500.4100, L501.4021 #### [facility] [address] [place], [address] GFR/1.73 sq M.predicted among non-blacks MDRD (S/P/Bld) [Vol rate/Area] 84 mL/min/{1.73_m2} Normal >60 [facility] Comment on above: Result Comment: mL/m in/1.73m2 CKD-EPI Creatinine Equation (2020) Performed By: #### L 3100.5400, L100.0100, L500.4050, L501.9985, L500.4100, L501.4021 #### [facility] [address] [place], [address] Globulin (S) [Mass/Vol] 2.7 g/dL Normal 2.2-4.2 [facility] Comment on above: Performed By: #### L 3100.5400, L100.0100, L500.4050, L501.9985, L500.4100, L501.4021 #### [facility] [address] [place], [address] Glucose [Mass/Vol] 283 mg/dL High 70-99 [facility] Comment on above: Performed By: #### L 3100.5400, L100.0100, L500.4050, L501.9985, L500.4100, L501.4021 #### [facility] [address] [place], [address] Potassium [Moles/Vol] 3.7 mmol/L Normal 3.3-5.1 [facility] Comment on above: Performed By: #### L 3100.5400, L100.0100, L500.4050, L501.9985, L500.4100, L501.4021 #### [facility] [address] [place], [address] Sodium [Moles/Vol] 135 mmol/L Normal 133-145 [facility] Comment on above: Performed By: #### L 3100.5400, L100.0100, L500.4050, L501.9985, L500.4100, L501.4021 #### [facility] [address] [place], [address] T PROT 6.9 g/dL Normal 5.9-8.4 [facility] Comment on above: Performed By: #### L 3100.5400, L100.0100, L500.4050, L501.9985, L500.4100, L501.4021 #### [facility] [address] [place], [address] Urea nitrogen [Mass/Vol] 9 mg/dL Normal 4-19 [facility] Comment on above: Performed By: #### L 3100.5400, L100.0100, L500.4050, L501.9985, L500.4100, L501.4021 #### [facility] [address] [place], [address] Eosinophil percentageOrdered By: Glen Chapman on 06-04-2025 Eosinophils/100 WBC (Bld) 4.7 % 0-5 [facility] Erythrocyte Sed Rateon 06-04 SED RATE 18 mm/hr Normal 0-30 [facility] Comment on above: Performed By: #### L 3100.5400, L100.0100, L500.4050, L501.9985, L500.4100, L501.4021 #### [facility] [address] [place], [address] Erythrocyte distribution wid th ratioOrdered By: Glen Ari on 06-04-2025 Erythrocyte distribution width (RBC) [Ratio] 15.2 % High 11.6-14.6 [facility] Erythrocyte distribution wid th standard deviationOrdered By: Glen Chapman on 06-04-2025 Erythrocyte distribution width (RBC) [Ratio] 47.2 fl High 35.1-43.9 [facility] Erythrocyte sedimentation ra teOrdered By: Glen Chapman on 06-04-2025 ESR (Bld) [Velocity] 18 mm/h 0-30 [facility] Ferritinon 06-04-2025 Ferritin [Mass/Vol] 76 ng/mL Normal 22-378 [facility] Comment on above: Performed By: #### L 3100.5400, L100.0100, L500.4050, L501.9985, L500.4100, L501.4021 #### [facility] [address] [place], [place], [address] Glomerular filtration rate ( GFR) estimation/1.73 sq m using serum, plasma, or whole bOrdered By: Glen Chapman on 06-04-2025 GFR/1.73 sq M.predicted among non-blacks MDRD (S/P/Bld) [Vol rate/Area] 84 mL/min/{1.73_m2} >60 [facility] Comment on above: mL/min/1.73m2 CKD-EP I Creatinine Equation (2020) Hematocrit Auto (Bld) [Volum e fraction]Ordered By: Glen Chapman on 06-04-2025 Hematocrit (Bld) [Volume fraction] 35.0 % Low 37-47 [facility] Hemoglobin measurementOrdere d By: Glen Chapman on 06-04-2025 Hemoglobin (Bld) [Mass/Vol] 11.3 g/dL Low 12.0-15.0 [facility] Immature granulocytes/100 WB C Auto (Bld)Ordered By: Glen Chapman on 06-04-2025 Immature granulocytes/100 WBC (Bld) 1.300 % High 0.0-0.9 [facility] Comment on above: IG% - Immature Granu locytes (promyelocytes, myelocytes and metamyelocytes) > 1% indicates that a LEFT SHIFT is Present. Iron measurement (mass/mass) Ordered By: Glen Chapman on 06-04-2025 Iron (Unsp spec) [Mass/Mass] 57 ug/dL 50-170 [facility] Iron+Iron Binding Capacityon 06-04-2025 Iron [Mass/Vol] 57 ug/dL Normal 50-170 [facility] Comment on above: Performed By: #### L 3100.5400, L100.0100, L500.4050, L501.9985, L500.4100, L501.4021 #### [facility] [address] [place], [address] IRON SATURATION 14.0 Normal 13-59 [facility] Comment on above: Performed By: #### L 3100.5400, L100.0100, L500.4050, L501.9985, L500.4100, L501.4021 #### [facility] [address] [place], [address] TIBC 395 ug/dL Normal 250-450 [facility] Comment on above: Performed By: #### L 3100.5400, L100.0100, L500.4050, L501.9985, L500.4100, L501.4021 #### [facility] [address] [place], [address] UIBC 338 ug/dL Normal 228-428 [facility] Comment on above: Performed By: #### L 3100.5400, L100.0100, L500.4050, L501.9985, L500.4100, L501.4021 #### [facility] [address] [place], [address] LDHon 06-04-2025 LDH 167 U/L Normal 84-246 [facility] Comment on above: Order Comment: DR.MA BAILEY GETS RESULTS FOR CBCD CMP LIPID ANDPROLACTIN DR. SANDOVAL GETS RESULTS FOR CBCD BMP AND TROPNIN Performed By: #### L 3100.5400, L100.0100, L500.4050, L501.9985, L500.4100, L501.4021 #### [facility] [address] [place], [place], [id number] Laboratory - Chemistry and C hemistry - challengeOrdered By: Glen Chapman on 06-04-2025 AST [Catalytic activity/Vol] 17 U/L <32 [facility] Lactate dehydrogenase (LDH) measurementOrdered By: Glen Chapman on 06-04-2025 LDH [Catalytic activity/Vol] 167 U/L 84-246 [facility] MCV (mean corpuscular volume ) determinationOrdered By: Glen Chapman on 06-04-2025 MCV (RBC) [Entitic vol] 86.6 fL 81-[address] [facility] Magnesiumon 06-04-2025 Magnesium [Mass/Vol] 1.5 mg/dL Normal 1.5-2.2 [facility] Comment on above: Performed By: #### L 3100.5400, L100.0100, L500.4050, L501.9985, L500.4100, L501.4021 #### [facility] [address] [facility] [place], [place], [id number] Magnesium measurement (mass/ volume)Ordered By: Glen Chapman on 06-04-2025 Magnesium (Unsp spec) [Mass/Vol] 1.5 mg/dL 1.5-2.2 [facility] Mean corpuscular hemoglobin (MCH) determinationOrdered By: Glen Chapman on 06-04-2025 MCH (RBC) [Entitic mass] 28.0 pg 27.0-32.0 [facility] Mean corpuscular hemoglobin concentration (MCHC) determinationOrdered By: Glen Chapman on 06-04-2025 MCHC (RBC) [Mass/Vol] 32.3 g/dL 32-36 [facility] Mean platelet volume determi nationOrdered By: Glen Chapman on 06-04-2025 Platelet mean volume (Bld) [Entitic vol] 9.6 fL 6.2-12.0 [facility] Monocyte percentageOrdered B y: Glen Chapman on 06-04-2025 Monocytes/100 WBC (Bld) 5.5 % 0-[address] [facility] Neutrophil percentageOrdered By: Glen Chapman on 06-04-2025 Neutrophils/100 WBC (Bld) 70.9 % High 47-70 [facility] No Panel InformationOrdered By: Glen Chapman on 06-04-2025 Unsaturated Iron Binding Capacity 338 ug/dL 228-428 [facility] Nucleated red blood cell per centageOrdered By: Glen Chapman on 06-04-2025 Nucleated RBC/100 WBC (Bld) [Ratio] 0 % 0-5 [facility] Oncology Visit Reporton 05-16 Oncology Visit Report [facility] [address] [place] [address] OFFICE VISIT Date of Service: 06/04/25 1109 MR#: [id number] Acct: [id number] Name: HEIDI ANDREWS Rep #: [id number] : 1970 From: Glen Chapman MD Age/Sex: 55/F [place] [facility] [place] Status: Signed HPI Subjective Date of [...] deficiency. Comes for follow up. Feels better. [facility] Medical History Sleep apnea Wears glasses Thyroid disease Diabetes Anemia Former smoker Diabetes Anxiety Psoriasis Hypothyroid Vitamin D deficiency Hypertriglyceridemia Bipolar disorder, unspecified HTN (hypertension) Surgical History Hx of section Hx of bilateral breast reduction surgery Family History Father Hypertension Diabetes Sister Anxiety MCTD (mixed connective tissue disease) Mother Psoriatic arthritis Social History household members: spouse current occupational status: employed current occupation: [employer] Smoking Status: Former smoker alcohol intake: never [...] tab PO DAILY 11/10/22 06/04/25 H istory mg-hydrochlorothiazi de 12.5 mg tablet [...] anemia, unspe (more content not included)... Normal [facility] Phosphoruson 06-04-2025 Phosphate [Mass/Vol] 2.4 mg/dL Low 2.7-4.5 [facility] Comment on above: Performed By: #### L 3100.5400, L100.0100, L500.4050, L501.9985, L500.4100, L501.4021 #### [facility] [address] [place], [address] Platelet countOrdered By: Jaimee Chapman on 06-04-2025 Platelets (Bld) [#/Vol] 241 10*3/uL 150-450 [facility] Potassium measurement (mass/ volume)Ordered By: Glen Chapman on 06-04-2025 Potassium (Unsp spec) [Mass/Vol] 3.7 mmol/L 3.3-5.1 [facility] RBC Auto (Bld) [#/Vol]Ordere d By: Glen Chapman on 06-04-2025 RBC (Bld) [#/Vol] 4.04 10*6/uL Low 4.2-5.4 [facility] Serum creatinine measurement (mass/volume)Ordered By: Glen Chapman on 06-04-2025 Creatinine [Mass/Vol] 0.83 mg/dL 0.70-1.20 [facility] Serum globulin measurementOr dered By: Glen Chapman on 06-04-2025 Globulin (S) [Mass/Vol] 2.7 g/dL 2.2-4.2 [facility] Serum glucose measurement (m ass/volume)Ordered By: Glen Chapman on 06-04-2025 Glucose [Mass/Vol] 283 mg/dL High 70-99 [facility] Serum or plasma C reactive p rotein measurement (mass/volume)Ordered By: Glen Chapman on 06-04-2025 CRP [Mass/Vol] 23.30 mg/L High 0.0-3.0 [facility] Serum or plasma alanine cueto otransferase (ALT) measurementOrdered By: Glen Chapman on 06-04-2025 ALT [Catalytic activity/Vol] 12 U/L <35 [facility] Serum or plasma albumin sandy urement (mass/volume)Ordered By: Glen Chapman on 06-04-2025 Albumin [Mass/Vol] 4.2 g/dL 3.5-5.0 [facility] Serum or plasma albumin/glob ulin mass ratioOrdered By: Glen Chapman on 06-04-2025 Albumin/Globulin [Mass ratio] 1.6 {ratio} 0.9-2.4 [facility] Serum or plasma alkaline rebecca sphatase measurementOrdered By: Glen Chapman on 06-04-2025 ALP [Catalytic activity/Vol] 83 U/L 35-104 [facility] Serum or plasma calcium sandy urement (mass/volume)Ordered By: Glen Chapman on 06-04-2025 Calcium [Mass/Vol] 9.1 mg/dL 7.6-11.0 [facility] Serum or plasma ferritin darrel surement (mass/volume)Ordered By: Glen Chapman on 06-04-2025 Ferritin [Mass/Vol] 76 ng/mL 22-378 [facility] Serum or plasma iron saturat ion measurement (mass fraction)Ordered By: Glen Chapman on 06-04-2025 Iron saturation [Mass fraction] 14.0 % 13-59 [facility] Serum or plasma urea nitroge n measurement (mass/volume)Ordered By: Glen Chapman on 06-04-2025 Urea nitrogen [Mass/Vol] 9 mg/dL 4-19 [facility] Sodium levelOrdered By: Cy Chapman on 06-04-2025 Sodium [Moles/Vol] 135 mmol/L 133-145 [facility] Total proteinOrdered By: Vasquez Chapman on 06-04-2025 Protein [Mass/Vol] 6.9 g/dL 5.9-8.4 [facility] Vitamin B12on 06-04-2025 Cobalamin (Vitamin B12) [Mass/Vol] 416 pg/mL Normal 180-914 [facility] Comment on above: Performed By: #### L 3100.5400, L100.0100, L500.4050, L501.9985, L500.4100, L501.4021 #### [facility] [address] [place] [address], [address] Vitamin B12 ser/plasOrdered By: Glen Chapman on 06-04-2025 Cobalamin (Vitamin B12) [Mass/Vol] 416 pg/mL 180-914 [facility] White blood cell (WBC) count Ordered By: Glen Chapman on 06-04-2025 WBC (Bld) [#/Vol] 6.2 10*3/uL 4.4-11.0 [facility] Absolute lymphocyte countOrd ered By: Glen Chapman on 05-07-2025 Lymphocytes Auto (Unsp spec) [#/Vol] 1.11 10*3/uL 0.83-4.51 [facility] Absolute neutrophil countOrd ered By: Glen Chapman on 05-07-2025 Neutrophils (Bld) [#/Vol] 2.9 10*3/uL 2.0-7.7 [facility] Automated lymphocyte count a s percentage of total leukocytesOrdered By: Glen Chapman on 05-07-2025 Lymphocytes/100 WBC Auto (Unsp spec) 23.9 % 19-41 [facility] Basophil percentageOrdered B y: Glen Chapman on 05-07-2025 Basophils/100 WBC (Bld) 0.4 % 0-[address] [facility] CBC W/Diff, Automatedon 04-16-2024 Absolute Lymph 1.11 X10 3/uL Normal 0.83-4.51 [facility] Comment on above: Performed By: #### L 3100.5400, L100.0100, L500.4050, L501.9985, L500.4100, L501.4021 #### [facility] [address] [place], [address] Absolute Neut 2.9 X10 3/uL Normal 2.0-7.7 [facility] Comment on above: Performed By: #### L 3100.5400, L100.0100, L500.4050, L501.9985, L500.4100, L501.4021 #### [facility] [address] [place], [address] Basophils/100 WBC (Bld) 0.4 % Normal 0-[address] [facility] Comment on above: Performed By: #### L 3100.5400, L100.0100, L500.4050, L501.9985, L500.4100, L501.4021 #### [facility] [address] [place], [address] Eosinophils/100 WBC (Bld) 6.3 % High 0-5 [facility] Comment on above: Performed By: #### L 3100.5400, L100.0100, L500.4050, L501.9985, L500.4100, L501.4021 #### [facility] [address] [place], [address] Erythrocyte distribution width (RBC) [Ratio] 19.2 % High 11.6-14.6 [facility] Comment on above: Performed By: #### L 3100.5400, L100.0100, L500.4050, L501.9985, L500.4100, L501.4021 #### [facility] [address] [place], [address] Hematocrit (Bld) [Volume fraction] 33.0 % Low 37-47 [facility] Comment on above: Performed By: #### L 3100.5400, L100.0100, L500.4050, L501.9985, L500.4100, L501.4021 #### [facility] [address] [place], [address] Hemoglobin (Bld) [Mass/Vol] 10.3 g/dL Low 12.0-15.0 [facility] Comment on above: Performed By: #### L 3100.5400, L100.0100, L500.4050, L501.9985, L500.4100, L501.4021 #### [facility] [address] [place], [address] IG% 1.100 High 0.0-0.9 [facility] Comment on above: Result Comment: IG% - Immature Granulocytes (promyelocytes, myelocytes and metamyelocytes) > 1% indicates that a LEFT SHIFT is Present. Performed By: #### L 3100.5400, L100.0100, L500.4050, L501.9985, L500.4100, L501.4021 #### [facility] [address] [place], [address] Lymphocytes/100 WBC (Bld) 23.9 % Normal 19-41 [facility] Comment on above: Performed By: #### L 3100.5400, L100.0100, L500.4050, L501.9985, L500.4100, L501.4021 #### [facility] [address] [place], [address] MCH (RBC) [Entitic mass] 28.0 pg Normal 27.0-32.0 [facility] Comment on above: Performed By: #### L 3100.5400, L100.0100, L500.4050, L501.9985, L500.4100, L501.4021 #### [facility] [address] [place], [address] MCHC (RBC) [Mass/Vol] 31.2 g/dL Low 32-36 [facility] Comment on above: Performed By: #### L 3100.5400, L100.0100, L500.4050, L501.9985, L500.4100, L501.4021 #### [facility] [address] [place], [address] MCV (RBC) [Entitic vol] 89.7 fL Normal 81-[address] [facility] Comment on above: Performed By: #### L 3100.5400, L100.0100, L500.4050, L501.9985, L500.4100, L501.4021 #### [facility] [address] [place], [address] Monocytes/100 WBC (Bld) 6.9 % Normal 0-[address] [facility] Comment on above: Performed By: #### L 3100.5400, L100.0100, L500.4050, L501.9985, L500.4100, L501.4021 #### [facility] [address] [place], [address] Neutrophils/100 WBC (Bld) 61.4 % Normal 47-70 [facility] Comment on above: Performed By: #### L 3100.5400, L100.0100, L500.4050, L501.9985, L500.4100, L501.4021 #### [facility] [address] [place], [address] Nucleated RBC (Bld) [#/Vol] 0 10*3/uL Normal 0-5 [facility] Comment on above: Performed By: #### L 3100.5400, L100.0100, L500.4050, L501.9985, L500.4100, L501.4021 #### [facility] [address] [place], [address] Platelet mean volume (Bld) [Entitic vol] 9.3 fL Normal 6.2-12.0 [facility] Comment on above: Performed By: #### L 3100.5400, L100.0100, L500.4050, L501.9985, L500.4100, L501.4021 #### [facility] [address] [place], [address] Platelets (Bld) [#/Vol] 232 10*3/uL Normal 150-450 [facility] Comment on above: Performed By: #### L 3100.5400, L100.0100, L500.4050, L501.9985, L500.4100, L501.4021 #### [facility] [address] [place], [address] RBC (Bld) [#/Vol] 3.68 10*6/uL Low 4.2-5.4 [facility] Comment on above: Performed By: #### L 3100.5400, L100.0100, L500.4050, L501.9985, L500.4100, L501.4021 #### [facility] [address] [place], [address] RDW SD 63.7 fl High 35.1-43.9 [facility] Comment on above: Performed By: #### L 3100.5400, L100.0100, L500.4050, L501.9985, L500.4100, L501.4021 #### [facility] [address] [place], [place], [phone] (140) WBC (Bld) [#/Vol] 4.6 10*3/uL Normal 4.4-11.0 [facility] Comment on above: Performed By: #### L 3100.5400, L100.0100, L500.4050, L501.9985, L500.4100, L501.4021 #### [facility] [address] [facility] [place], [place], [id number] ([address]) Eosinophil percentageOrdered By: Glen Chapman on 05-07-2025 Eosinophils/100 WBC (Bld) 6.3 % High 0-5 [facility] Erythrocyte distribution wid th ratioOrdered By: Glen Ari on 05-07-2025 Erythrocyte distribution width (RBC) [Ratio] 19.2 % High 11.6-14.6 [facility] Erythrocyte distribution wid th standard deviationOrdered By: Glen Ari on 05-07-2025 Erythrocyte distribution width (RBC) [Ratio] 63.7 fl High 35.1-43.9 [facility] Ferritinon 05-07-2025 Ferritin [Mass/Vol] 90 ng/mL Normal 22-378 [facility] Comment on above: Performed By: #### L 3000.0800, L100.9950, L3890.6006, L506.0200, L3410.9992, L101.9900, L503.0106, L500.4050, L501.1400, L400.0001, L503.6030, L3200.1200, L503.6550, L501.5101, L100.0100, L504.2610, L501.5200, L3200.0500, L501.6710, L3100.1350 #### [facility] [address] [place], [address] Hematocrit Auto (Bld) [Volum e fraction]Ordered By: Glen Statonrito on 05-07-2025 Hematocrit (Bld) [Volume fraction] 33.0 % Low 37-47 [facility] Hemoglobin measurementOrdere d By: Glen Statonrito on 05-07-2025 Hemoglobin (Bld) [Mass/Vol] 10.3 g/dL Low 12.0-15.0 [facility] Immature granulocytes/100 WB C Auto (Bld)Ordered By: Glen Statonrito on 05-07-2025 Immature granulocytes/100 WBC (Bld) 1.100 % High 0.0-0.9 [facility] Comment on above: IG% - Immature Granu locytes (promyelocytes, myelocytes and metamyelocytes) > 1% indicates that a LEFT SHIFT is Present. Iron measurement (mass/mass) Ordered By: Glen Ari on 05-07-2025 Iron (Unsp spec) [Mass/Mass] 57 ug/dL 50-170 [facility] Iron+Iron Binding Capacityon 05-07-2025 Iron [Mass/Vol] 57 ug/dL Normal 50-170 [facility] Comment on above: Performed By: #### L 3000.0800, L100.9950, L3890.6006, L506.0200, L3410.9992, L101.9900, L503.0106, L500.4050, L501.1400, L400.0001, L503.6030, L3200.1200, L503.6550, L501.5101, L100.0100, L504.2610, L501.5200, L3200.0500, L501.6710, L3100.1350 #### [facility] [address] [place], [address] IRON SATURATION 14.0 Normal 13-59 [facility] Comment on above: Performed By: #### L 3000.0800, L100.9950, L3890.6006, L506.0200, L3410.9992, L101.9900, L503.0106, L500.4050, L501.1400, L400.0001, L503.6030, L3200.1200, L503.6550, L501.5101, L100.0100, L504.2610, L501.5200, L3200.0500, L501.6710, L3100.1350 #### [facility] [address] [place], [address] TIBC 392 ug/dL Normal 250-450 [facility] Comment on above: Performed By: #### L 3000.0800, L100.9950, L3890.6006, L506.0200, L3410.9992, L101.9900, L503.0106, L500.4050, L501.1400, L400.0001, L503.6030, L3200.1200, L503.6550, L501.5101, L100.0100, L504.2610, L501.5200, L3200.0500, L501.6710, L3100.1350 #### [facility] [address] [place], [address] UIBC 335 ug/dL Normal 228-428 [facility] Comment on above: Performed By: #### L 3000.0800, L100.9950, L3890.6006, L506.0200, L3410.9992, L101.9900, L503.0106, L500.4050, L501.1400, L400.0001, L503.6030, L3200.1200, L503.6550, L501.5101, L100.0100, L504.2610, L501.5200, L3200.0500, L501.6710, L3100.1350 #### [facility] [address] [place], [address] LDHon 05-07-2025 LDH 132 U/L Normal 84-246 [facility] Comment on above: Order Comment: 1 Performed By: #### L 3000.0800, L100.9950, L3890.6006, L506.0200, L3410.9992, L101.9900, L503.0106, L500.4050, L501.1400, L400.0001, L503.6030, L3200.1200, L503.6550, L501.5101, L100.0100, L504.2610, L501.5200, L3200.0500, L501.6710, L3100.1350 #### [facility] [address] [facility] [place], [address] Lactate dehydrogenase (LDH) measurementOrdered By: Glen Chapman on 05-07-2025 LDH [Catalytic activity/Vol] 132 U/L 84-246 [facility] MCV (mean corpuscular volume ) determinationOrdered By: Glen Chapman on 05-07-2025 MCV (RBC) [Entitic vol] 89.7 fL 81-[address] [facility] Magnesiumon 05-07-2025 Magnesium [Mass/Vol] 1.3 mg/dL Low 1.5-2.2 [facility] Comment on above: Performed By: #### L 3000.0800, L100.9950, L3890.6006, L506.0200, L3410.9992, L101.9900, L503.0106, L500.4050, L501.1400, L400.0001, L503.6030, L3200.1200, L503.6550, L501.5101, L100.0100, L504.2610, L501.5200, L3200.0500, L501.6710, L3100.1350 #### [facility] [address] [facility] [place], [address] Magnesium measurement (mass/ volume)Ordered By: Glen Chapman on 05-07-2025 Magnesium (Unsp spec) [Mass/Vol] 1.3 mg/dL Low 1.5-2.2 [facility] Mean corpuscular hemoglobin (MCH) determinationOrdered By: Glen Chapman on 05-07-2025 MCH (RBC) [Entitic mass] 28.0 pg 27.0-32.0 [facility] Mean corpuscular hemoglobin concentration (MCHC) determinationOrdered By: Glen Chapman on 05-07-2025 MCHC (RBC) [Mass/Vol] 31.2 g/dL Low 32-36 [facility] Mean platelet volume determi nationOrdered By: Glen Chapman on 05-07-2025 Platelet mean volume (Bld) [Entitic vol] 9.3 fL 6.2-12.0 [facility] Monocyte percentageOrdered B y: Glen Chapman on 05-07-2025 Monocytes/100 WBC (Bld) 6.9 % 0-[address] [facility] Neutrophil percentageOrdered By: Goodrich Ari on 05-07-2025 Neutrophils/100 WBC (Bld) 61.4 % 47-70 [facility] No Panel InformationOrdered By: Glen Chapman on 05-07-2025 Unsaturated Iron Binding Capacity 335 ug/dL 228-428 [facility] Nucleated red blood cell per centageOrdered By: Glen Chapman on 05-07-2025 Nucleated RBC/100 WBC (Bld) [Ratio] 0 % 0-5 [facility] Oncology Visit Reporton 04-16 Oncology Visit Report [facility] [address] [place] [id number] OFFICE VISIT Date of Service: 05/07/25825 MR#: [id number] Acct: [id number] Name: HEIDI ANDREWS Rep #: [id number] : 1970 From: Glen Chapman MD Age/Sex: 55/F Location: [facility] [place] Status: Signed HPI Subjective Date of Service [...] 03/29/2025. Comes for follow up. Feels better. PFSH [...] spouse current occupational status: employed current occupation: [employer] Smoking Status: Former smoker alcohol intake: never substance use type: does not use Intake Vital Signs 03/29/25 08:03 05/07/25 08:27 Height 5 ft 6 in 5 ft 6 in Weight: 122.47 kg BMI 43.5 BP 132/82 H Blood Pressure Location Lt brachial Position Sitting Respiration 18 Pulse 75 Pulse Source Monitor Temp 98.0 F Temperature Source Temporal Artery Pulse Oximetry (%) 96 Intake Cream Buyer Required: No Accompanied by: Self Is patient [...] tab PO DAILY 11/10/22 05/07/25 H istory mg-hydrochlorothiazi de 12.5 mg tablet [...] Details Foll (more content not included)... Normal [facility] Phosphoruson 05-07-2025 Phosphate [Mass/Vol] 2.6 mg/dL Low 2.7-4.5 [facility] Comment on above: Performed By: #### L 3100.5400, L100.0100, L500.4050, L501.9985, L500.4100, L501.4021 #### [facility] [address] [place], [address] Platelet countOrdered By: Jaimee Chapman on 05-07-2025 Platelets (Bld) [#/Vol] 232 10*3/uL 150-450 [facility] RBC Auto (Bld) [#/Vol]Ordere d By: Glen Chapman on 05-07-2025 RBC (Bld) [#/Vol] 3.68 10*6/uL Low 4.2-5.4 [facility] Serum or plasma ferritin darrel surement (mass/volume)Ordered By: Glen Chapman on 05-07-2025 Ferritin [Mass/Vol] 90 ng/mL 22-378 [facility] Serum or plasma iron saturat ion measurement (mass fraction)Ordered By: Glen Chapman on 05-07-2025 Iron saturation [Mass fraction] 14.0 % 13-59 [facility] Vitamin B12on 05-07-2025 Cobalamin (Vitamin B12) [Mass/Vol] 152 pg/mL Low 180-914 [facility] Comment on above: Performed By: #### L 3000.0800, L100.9950, L3890.6006, L506.0200, L3410.9992, L101.9900, L503.0106, L500.4050, L501.1400, L400.0001, L503.6030, L3200.1200, L503.6550, L501.5101, L100.0100, L504.2610, L501.5200, L3200.0500, L501.6710, L3100.1350 #### [facility] [address] [place], [address] Vitamin B12 ser/plasOrdered By: Glen Chapman on 05-07-2025 Cobalamin (Vitamin B12) [Mass/Vol] 152 pg/mL Low 180-914 [facility] White blood cell (WBC) count Ordered By: Glen Chapman on 05-07-2025 WBC (Bld) [#/Vol] 4.6 10*3/uL 4.4-11.0 [facility] Cardiovascular stress test r eportOrdered By: John Damian on 04-17-2025 Study report [facility] [address] [place] [address] MR#: [id number] Acct: [id number] Name: HEIDI ANDREWS Rep #: [id number] : 1970 55 From: John Damian MD Primary Care: Dr. Red Sandoval MD Status : REG CLI Referring Dr: Red Sandoval MD [...] of 66%. This note was generated with surespotation software. It may contain incorrectwords, spelling, and punctuation that were not noted in checking the note beforesigning. 04/17/25928 Date _ John Damian MD CC: Dr. Red Sandoval MD ~ Date Dictated: 04/17/25925 Date Transcribed: 04/17/25925 Briar Cutter: MARY Smith [facility] Work Phone: Stress Reporton 04-17-2025 Stress Report [facility] [address] [place] [address] MR#: [id number] Acct: [id number] Name: HEIDI ANDREWS Rep #: [id number] : 1970 55 From: John Damian MD Primary Care: Dr. Red Sandoval MD Status: [facility] Referring Dr: Red Sandoval MD Sex: F [...] of 66%. This note was generated with [employer] dictation software. It may contain incorrect words, spelling, and punctuation that were not noted in checking the note before signing. 04/17/25928 Date John Damian MD CC: Dr. Red Sandoval MD Date Dictated: 04/17/25925 Date Transcribed: 04/17/25925 Briar Cutter: AR Signed Normal [facility] Absolute lymphocyte countOrd ered By: Red Sandoval on 03-29-2025 Lymphocytes Auto (Unsp spec) [#/Vol] 0.95 10*3/uL 0.83-4.51 [facility] Absolute neutrophil countOrd ered By: Red Sandoval on 03-29-2025 Neutrophils (Bld) [#/Vol] 4.6 10*3/uL 2.0-7.7 [facility] Automated lymphocyte count a s percentage of total leukocytesOrdered By: Red Sandoval on 03-29-2025 Lymphocytes/100 WBC Auto (Unsp spec) 15.0 % Low 19-41 [facility] Basophil percentageOrdered B y: Red Sandoval on 03-29-2025 Basophils/100 WBC (Bld) 0.3 % 0-[address] [facility] Blood polychromasia detectio n by light microscopyOrdered By: Red Sandoval on 03-29-2025 Polychromasia LM Ql (Bld) 1+ [facility] CBC W/Diff, Automatedon - Anisocytosis Ql (Bld) 2+ Normal [facility] Comment on above: Performed By: #### L 3100.5400, L100.0100, L500.4050, L501.9985, L500.4100, L501.4021 #### [facility] [address] [place], [place], [id number] POLYCHROMASIA 1+ Normal [facility] Comment on above: Performed By: #### L 3100.5400, L100.0100, L500.4050, L501.9985, L500.4100, L501.4021 #### [facility] [address] [place], [place], [id number] ([address]) Eosinophil percentageOrdered By: Red Sandoval on 03-29-2025 Eosinophils/100 WBC (Bld) 3.9 % 0-5 [facility] Erythrocyte distribution wid th ratioOrdered By: Red Sandoval on 03-29-2025 Erythrocyte distribution width (RBC) [Ratio] 27.1 % High 11.6-14.6 [facility] Erythrocyte distribution wid th standard deviationOrdered By: Red Sandoval on 03-29-2025 Erythrocyte distribution width (RBC) [Ratio] 81.7 fl High 35.1-43.9 [facility] Hematocrit Auto (Bld) [Volum e fraction]Ordered By: Red Sandoval on 03-29-2025 Hematocrit (Bld) [Volume fraction] 31.9 % Low 37-47 [facility] Hemoglobin measurementOrdere d By: Red Sandoval on 03-29-2025 Hemoglobin (Bld) [Mass/Vol] 9.2 g/dL Low 12.0-15.0 [facility] Immature granulocytes/100 WB C Auto (Bld)Ordered By: Red Sandoval on 03-29-2025 Immature granulocytes/100 WBC (Bld) 1.100 % High 0.0-0.9 [facility] Comment on above: IG% - Immature Granu locytes (promyelocytes, myelocytes and metamyelocytes) > 1% indicates that a LEFT SHIFT is Present. Laboratory - Hematology and Cell countsOrdered By: Red Sandoval on 03-29-2025 Anisocytosis Ql (Bld) 2+ [facility] MCV (mean corpuscular volume ) determinationOrdered By: Red Sandoval on 03-29-2025 MCV (RBC) [Entitic vol] 84.2 fL 81-[address] [facility] Mean corpuscular hemoglobin (MCH) determinationOrdered By: Red Sandoval on 03-29-2025 MCH (RBC) [Entitic mass] 24.3 pg Low 27.0-32.0 [facility] Mean corpuscular hemoglobin concentration (MCHC) determinationOrdered By: Red Sandoval on 03-29-2025 MCHC (RBC) [Mass/Vol] 28.8 g/dL Low 32-36 [facility] Mean platelet volume determi nationOrdered By: Red Sandoval on 03-29-2025 Platelet mean volume (Bld) [Entitic vol] 9.6 fL 6.2-12.0 [facility] Monocyte percentageOrdered B y: Red Sandoval on 03-29-2025 Monocytes/100 WBC (Bld) 7.1 % 0-[address] [facility] Neutrophil percentageOrdered By: Red Sandoval on 03-29-2025 Neutrophils/100 WBC (Bld) 72.6 % High 47-70 [facility] Nucleated red blood cell per centageOrdered By: Red Sandoval on 03-29-2025 Nucleated RBC/100 WBC (Bld) [Ratio] 0 % 0-5 [facility] Platelet countOrdered By: Yousuf Sandoval on 03-29-2025 Platelets (Bld) [#/Vol] 263 10*3/uL 150-450 [facility] RBC Auto (Bld) [#/Vol]Ordere d By: Red Sandoval on 03-29-2025 RBC (Bld) [#/Vol] 3.79 10*6/uL Low 4.2-5.4 [facility] White blood cell (WBC) count Ordered By: Red Sandoval on 03-29-2025 WBC (Bld) [#/Vol] 6.3 10*3/uL 4.4-11.0 [facility] Celiac AB,Comprehensiveon ANTIGLIADIN IGA 2 units Normal 0-19 [facility] Comment on above: Result Comment: Nega tive 0 - 19 Weak Positive 20 - 30 Moderate to Strong Positive >30 Performed By: #### L 3410.2350 #### [facility] [address] [place], [place], [id number] ANTIGLIADIN IGG 2 units Normal 0-19 [facility] Comment on above: Result Comment: Nega tive 0 - 19 Weak Positive 20 - 30 Moderate to Strong Positive >30 Performed By: #### L 3410.2350 #### [facility] [address] [place], [place], [address] ENDOMYSIAL IGA Negative Normal Negative [facility] Comment on above: Performed By: #### L 3410.2350 #### [facility] [address] [place], [place], [id number] IMMUNOGLOB A QN 57 mg/dL Low 87-352 [facility] Comment on above: Result Comment: Perf ormed at: CB - [facility] [address] [id number] Registered Pharmacist: Preston Ashley PhD, Phone: [phone] Performed By: #### L 3410.2350 #### [facility] [address] [place], [place], [address] tTG IGA <2 Normal 0-3 [facility] Comment on above: Result Comment: Nega tive 0 - 3 Weak Positive 4 - 10 Positive >10 Tissue Transglutaminase (tTG) has been identified as the endomysial antigen. Studies have demonstr- ated that endomysial IgA antibodies have over 99% specificity for gluten sensitive enteropathy. Performed By: #### L 3410.2350 #### [facility] [address] [place], [place], [address] tTG IGG 3 U/mL Normal 0-5 [facility] Comment on above: Result Comment: Nega tive 0 - 5 Weak Positive 6 - 9 Positive >9 Performed By: #### L 3410.2350 #### [facility] [address] [place], [place], [address] Folates, (Folic Acid)on 02-14 FOLATES 5.36 ng/mL Normal 4.60-34.80 [facility] Comment on above: Order Comment: DR.MA BAILEY GETS RESULTS FOR CBCD CMP LIPID ANDPROLACTIN DR. SANDOVAL GETS RESULTS FOR CBCD BMP AND TROPNIN Performed By: #### L 3100.5400, L100.0100, L500.4050, L501.9985, L500.4100, L501.4021 #### [facility] [address] [place], [place], [id number] No Panel InformationOrdered By: Glen Chapman on 03-08-2025 Tissue Transglutaminase IgG Ab 3 U/mL 0-5 [facility] Comment on above: Negative 0 - 5 Weak Positive 6 - 9 Positive >9 Oncology Visit Reporton 02-14 Oncology Visit Report [facility] [address] [facility] [place], [place] [address] OFFICE VISIT Date of Service: 03/08/25 0820 MR#: [id number] Acct: [id number] Name: HEIDI ANDREWS Rep #: [id number] : 1970 From: Glen Chapman MD Age/Sex: 55/F [place] [facility] [place] Status: Signed HPI Subjective Date of Service 03/08/25 Chief Complaint Referred for Iron deficiency anemia. History of Present Illness 55 y.o.woman presented to PCP with SOB, fatigue, palpitations, she was found to Microcytic anemia with negative stool for occult blood on 03/05/2025. She is referred for management. Feels tired. Colonoscopy in Nov 2022 was negative. 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 Normal [facility] Serum tissue transglutaminas e (tTG) IgA antibody assay (units/volume)Ordered By: Glen Chapman on 03-08-2025 tTG IgA Qn (S) <2 U/mL 0-3 [facility] Comment on above: Negative 0 - 3 Weak Positive 4 - 10 Positive >10 Tissue Transglutaminase (tTG) has been identified as the endomysial antigen. Studies have demonstr- ated that endomysial IgA antibodies have over 99% specificity for gluten sensitive enteropathy. Vitamin B12on 03-08-2025 Cobalamin (Vitamin B12) [Mass/Vol] 184 pg/mL Normal 180-914 [facility] Comment on above: Order Comment: DR.MA BAILEY GETS RESULTS FOR CBCD CMP LIPID ANDPROLACTIN DR. SANDOVAL GETS RESULTS FOR CBCD BMP AND TROPNIN Performed By: #### L 3100.5400, L100.0100, L500.4050, L501.9985, L500.4100, L501.4021 #### [facility] [address] [place], [address] Vitamin B12 ser/plasOrdered By: Glen Chapman on 03-08-2025 Cobalamin (Vitamin B12) [Mass/Vol] 184 pg/mL 180-914 [facility] Ferritinon 03-05-2025 Ferritin [Mass/Vol] 13 ng/mL Low 22-378 [facility] Comment on above: Order Comment: DR.MA BAILEY GETS RESULTS FOR CBCD CMP LIPID ANDPROLACTIN DR. SANDOVAL GETS RESULTS FOR CBCD BMP AND TROPNIN Performed By: #### L 3100.5400, L100.0100, L500.4050, L501.9985, L500.4100, L501.4021 #### [facility] [address] [place], [place], [address] Ironon 03-05-2025 Iron [Mass/Vol] 33 ug/dL Low 50-170 [facility] Comment on above: Order Comment: DR.MA BAILEY GETS RESULTS FOR CBCD CMP LIPID ANDPROLACTIN DR. SANDOVAL GETS RESULTS FOR CBCD BMP AND TROPNIN Performed By: #### L 3100.5400, L100.0100, L500.4050, L501.9985, L500.4100, L501.4021 #### [facility] [address] [place], [place], [address] Iron (Unsp spec) [Mass/Mass] Ordered By: Red Sandoval on 03-05-2025 Iron [Mass/Vol] 33 ug/dL Low 50-170 [facility] Iron measurement (mass/mass) Ordered By: Red Sandoval on 03-05-2025 Iron (Unsp spec) [Mass/Mass] 33 ug/dL Low 50-170 [facility] Serum or plasma ferritin darrel surement (mass/volume)Ordered By: Red Sandoval on 03-05-2025 Ferritin [Mass/Vol] 13 ng/mL Low 22-378 [facility] PROLACTIN 4465on 03-03-2025 PROLACTIN 62.0 ng/mL High 3.6-25.2 [facility] Comment on above: Result Comment: Perf ormed at: - [facility] [address] [id number] Registered Pharmacist: Preston Ashley PhD, Phone: [phone] Performed By: #### L 3100.5400, L100.0100, L500.4050, L501.9985, L500.4100, L501.4021 #### [facility] [address] [facility] [place], [address] Absolute lymphocyte countOrd ered By: Red Sandoval on 03-01-2025 Lymphocytes Auto (Unsp spec) [#/Vol] 0.63 10*3/uL Low 0.83-4.51 [facility] Absolute neutrophil countOrd ered By: Red Sandoval on 03-01-2025 Neutrophils (Bld) [#/Vol] 3.7 10*3/uL 2.0-7.7 [facility] Anion gap in Serum or Plasma Ordered By: Red Sandoval on 03-01-2025 Anion gap [Moles/Vol] 14 mmol/L 5-15 [facility] Automated lymphocyte count a s percentage of total leukocytesOrdered By: Red Sandoval on 03-01-2025 Lymphocytes/100 WBC Auto (Unsp spec) 12.6 % Low 19- [facility] BUN/creatinine ratioOrdered By: Red Sandoval on 03-01-2025 Urea nitrogen/Creatinine [Mass ratio] 11.5 mg/mg 10-20 [facility] Basophil percentageOrdered B y: Red Sandoval on 03-01-2025 Basophils/100 WBC (Bld) 0.4 % 0-[address] [facility] Bilirubin, totalOrdered By: Red Sandoval on 03-01-2025 Bilirubin [Mass/Vol] 0.57 mg/dL 0.00-1.30 [facility] CBC W/Diff, Automatedon 02-13 Anisocytosis Ql (Bld) 2+ Normal [facility] Comment on above: Performed By: #### L 3100.5400, L100.0100, L500.4050, L501.9985, L500.4100, L501.4021 #### [facility] [address] [place], [address] HYPOCHROMASIA 1+ Normal [facility] Comment on above: Performed By: #### L 3100.5400, L100.0100, L500.4050, L501.9985, L500.4100, L501.4021 #### [facility] [address] [place], [place], [id number] PLT EST ADEQUATE Normal ADEQ [facility] Comment on above: Performed By: #### L 3100.5400, L100.0100, L500.4050, L501.9985, L500.4100, L501.4021 #### [facility] [address] [place], [place], [address] Calculated very low density lipoprotein (VLDL) cholesterol measurementOrdered By: Red Sandoval on 03-01-2025 Calculated very low density lipoprotein (VLDL) cholesterol measurement 27 mg/dL - [facility] VLDL Cholesterol 27 mg/dL - [facility] Carbon dioxide, total [Moles /volume] in Central venous bloodOrdered By: Red Sandoval on 03-01-2025 CO2 [Moles/Vol] 25.1 mmol/L 21.0-32.0 [facility] Chloride assayOrdered By: Yousuf Sandoval on 03-01-2025 Chloride [Moles/Vol] 99 mmol/L 98-108 [facility] Comprehensive Metabolic Prof ilon 03-01-2025 Albumin [Mass/Vol] 4.2 g/dL Normal 3.5-5.0 [facility] Comment on above: Order Comment: DR.MA BAILEY GETS RESULTS FOR CBCD CMP LIPID ANDPROLACTIN DR. SANDOVAL GETS RESULTS FOR CBCD BMP AND TROPNIN Performed By: #### L 3100.5400, L100.0100, L500.4050, L501.9985, L500.4100, L501.4021 #### [facility] [address] [place], [address] Albumin/Globulin [Mass ratio] 1.6 {ratio} Normal 0.9-2.4 [facility] Comment on above: Order Comment: DR.MA BAILEY GETS RESULTS FOR CBCD CMP LIPID ANDPROLACTIN DR. SANDOVAL GETS RESULTS FOR CBCD BMP AND TROPNIN Performed By: #### L 3100.5400, L100.0100, L500.4050, L501.9985, L500.4100, L501.4021 #### [facility] [address] [place], [address] ALK PHOS 190 U/L High 35-104 [facility] Comment on above: Order Comment: DR.MA BAILEY GETS RESULTS FOR CBCD CMP LIPID ANDPROLACTIN DR. SANDOVAL GETS RESULTS FOR CBCD BMP AND TROPNIN Performed By: #### L 3100.5400, L100.0100, L500.4050, L501.9985, L500.4100, L501.4021 #### [facility] [address] [place], [address] ALT [Catalytic activity/Vol] 67 U/L High <=34 [facility] Comment on above: Order Comment: DR.MA BAILEY GETS RESULTS FOR CBCD CMP LIPID ANDPROLACTIN DR. SANDOVAL GETS RESULTS FOR CBCD BMP AND TROPNIN Performed By: #### L 3100.5400, L100.0100, L500.4050, L501.9985, L500.4100, L501.4021 #### [facility] [address] [place], [address] AST [Catalytic activity/Vol] 86 U/L High <=31 [facility] Comment on above: Order Comment: DR.MA BAILEY GETS RESULTS FOR CBCD CMP LIPID ANDPROLACTIN DR. SANDOVAL GETS RESULTS FOR CBCD BMP AND TROPNIN Performed By: #### L 3100.5400, L100.0100, L500.4050, L501.9985, L500.4100, L501.4021 #### [facility] [address] [place], [address] Bilirubin [Mass/Vol] 0.57 mg/dL Normal 0.00-1.30 [facility] Comment on above: Order Comment: DR.MA BAILEY GETS RESULTS FOR CBCD CMP LIPID ANDPROLACTIN DR. SANDOVAL GETS RESULTS FOR CBCD BMP AND TROPNIN Performed By: #### L 3100.5400, L100.0100, L500.4050, L501.9985, L500.4100, L501.4021 #### [facility] [address] [place], [address] BUN/CRE 11.5 RATIO Normal 10-20 [facility] Comment on above: Order Comment: DR.MA BAILEY GETS RESULTS FOR CBCD CMP LIPID ANDPROLACTIN DR. SANDOVAL GETS RESULTS FOR CBCD BMP AND TROPNIN Performed By: #### L 3100.5400, L100.0100, L500.4050, L501.9985, L500.4100, L501.4021 #### [facility] [address] [place], [address] Calcium [Mass/Vol] 8.9 mg/dL Normal 7.6-11.0 [facility] Comment on above: Order Comment: DR.MA BAILEY GETS RESULTS FOR CBCD CMP LIPID ANDPROLACTIN DR. SANDOVAL GETS RESULTS FOR CBCD BMP AND TROPNIN Performed By: #### L 3100.5400, L100.0100, L500.4050, L501.9985, L500.4100, L501.4021 #### [facility] [address] [place], [address] Chloride [Moles/Vol] 99 mmol/L Normal 98-108 [facility] Comment on above: Order Comment: DR.MA BAILEY GETS RESULTS FOR CBCD CMP LIPID ANDPROLACTIN DR. SANDOVAL GETS RESULTS FOR CBCD BMP AND TROPNIN Performed By: #### L 3100.5400, L100.0100, L500.4050, L501.9985, L500.4100, L501.4021 #### [facility] [address] [place], [address] CO2 [Moles/Vol] 25.1 mmol/L Normal 21.0-32.0 [facility] Comment on above: Order Comment: DR.MA BAILEY GETS RESULTS FOR CBCD CMP LIPID ANDPROLACTIN DR. SANDOVAL GETS RESULTS FOR CBCD BMP AND TROPNIN Performed By: #### L 3100.5400, L100.0100, L500.4050, L501.9985, L500.4100, L501.4021 #### [facility] [address] [place], [address] Creatinine [Mass/Vol] 1.04 mg/dL Normal 0.70-1.20 [facility] Comment on above: Order Comment: DR.MA BAILEY GETS RESULTS FOR CBCD CMP LIPID ANDPROLACTIN DR. SANDOVAL GETS RESULTS FOR CBCD BMP AND TROPNIN Performed By: #### L 3100.5400, L100.0100, L500.4050, L501.9985, L500.4100, L501.4021 #### [facility] [address] [place], [address] GAP 14 Normal 5-15 [facility] Comment on above: Order Comment: DR.MA BAILEY GETS RESULTS FOR CBCD CMP LIPID ANDPROLACTIN DR. SANDOVAL GETS RESULTS FOR CBCD BMP AND TROPNIN Performed By: #### L 3100.5400, L100.0100, L500.4050, L501.9985, L500.4100, L501.4021 #### [facility] [address] [place], [address] GFR/1.73 sq M.predicted among non-blacks MDRD (S/P/Bld) [Vol rate/Area] 64 mL/min/{1.73_m2} Normal >60 [facility] Comment on above: Order Comment: DR.MA BAILEY GETS RESULTS FOR CBCD CMP LIPID ANDPROLACTIN DR. SANDOVAL GETS RESULTS FOR CBCD BMP AND TROPNIN Result Comment: mL/m in/1.73m2 CKD-EPI Creatinine Equation (2020) Performed By: #### L 3100.5400, L100.0100, L500.4050, L501.9985, L500.4100, L501.4021 #### [facility] [address] [place], [address] Globulin (S) [Mass/Vol] 2.6 g/dL Normal 2.2-4.[address] [facility] Comment on above: Order Comment: DR.MA BAILEY GETS RESULTS FOR CBCD CMP LIPID ANDPROLACTIN DR. SANDOVAL GETS RESULTS FOR CBCD BMP AND TROPNIN Performed By: #### L 3100.5400, L100.0100, L500.4050, L501.9985, L500.4100, L501.4021 #### [facility] [address] [place], [address] Glucose [Mass/Vol] 158 mg/dL High 70-99 [facility] Comment on above: Order Comment: DR.MA BAILEY GETS RESULTS FOR CBCD CMP LIPID ANDPROLACTIN DR. SANDOVAL GETS RESULTS FOR CBCD BMP AND TROPNIN Performed By: #### L 3100.5400, L100.0100, L500.4050, L501.9985, L500.4100, L501.4021 #### [facility] [address] [place], [address] Potassium [Moles/Vol] 4.2 mmol/L Normal 3.3-5.1 [facility] Comment on above: Order Comment: DR.MA BAILEY GETS RESULTS FOR CBCD CMP LIPID ANDPROLACTIN DR. SANDOVAL GETS RESULTS FOR CBCD BMP AND TROPNIN Performed By: #### L 3100.5400, L100.0100, L500.4050, L501.9985, L500.4100, L501.4021 #### [facility] [address] [place], [address] Sodium [Moles/Vol] 138 mmol/L Normal 133-145 [facility] Comment on above: Order Comment: DR.MA BAILEY GETS RESULTS FOR CBCD CMP LIPID ANDPROLACTIN DR. SANDOVAL GETS RESULTS FOR CBCD BMP AND TROPNIN Performed By: #### L 3100.5400, L100.0100, L500.4050, L501.9985, L500.4100, L501.4021 #### [facility] [address] [place], [address] T PROT 6.8 g/dL Normal 5.9-8.4 [facility] Comment on above: Order Comment: DR.MA BAILEY GETS RESULTS FOR CBCD CMP LIPID ANDPROLACTIN DR. SANDOVAL GETS RESULTS FOR CBCD BMP AND TROPNIN Performed By: #### L 3100.5400, L100.0100, L500.4050, L501.9985, L500.4100, L501.4021 #### [facility] [address] [place], [address] Urea nitrogen [Mass/Vol] 12 mg/dL Normal 4-19 [facility] Comment on above: Order Comment: DR.MA BAILEY GETS RESULTS FOR CBCD CMP LIPID ANDPROLACTIN DR. SANDOVAL GETS RESULTS FOR CBCD BMP AND TROPNIN Performed By: #### L 3100.5400, L100.0100, L500.4050, L501.9985, L500.4100, L501.4021 #### [facility] [address] [place], [address] Eosinophil percentageOrdered By: Red Sandoval on 03-01-2025 Eosinophils/100 WBC (Bld) 4.0 % 0-5 [facility] Erythrocyte distribution wid th (RBC) [Ratio]Ordered By: Red Sandoval on 03-01-2025 Erythrocyte distribution width (RBC) [Entitic vol] 55.5 fL High 35.1-43.9 [facility] Erythrocyte distribution wid th ratioOrdered By: Red Sandoval on 03-01-2025 Erythrocyte distribution width (RBC) [Ratio] 20.9 % High 11.6-14.6 [facility] Erythrocyte distribution wid th standard deviationOrdered By: Red Sandoval on 03-01-2025 Erythrocyte distribution width (RBC) [Ratio] 55.5 fl High 35.1-43.9 [facility] GFR/1.73 sq M.predicted sonny g non-blacks MDRD (S/P/Bld) [Vol rate/Area]Ordered By: Red Sandoval on 03-01-2025 Estimated GFR (MDRD) Non-Af Amer 64 >60 [facility] Comment on above: mL/min/1.73m2 CKD-EP I Creatinine Equation (2020) Glomerular filtration rate ( GFR) estimation/1.73 sq m using serum, plasma, or whole bOrdered By: Red Sandoval on 03-01-2025 GFR/1.73 sq M.predicted among non-blacks MDRD (S/P/Bld) [Vol rate/Area] 64 mL/min/{1.73_m2} >60 [facility] Comment on above: mL/min/1.73m2 CKD-EP I Creatinine Equation (2020) Hematocrit Auto (Bld) [Volum e fraction]Ordered By: Red Sandoval on 03-01-2025 Hematocrit (Bld) [Volume fraction] 26.7 % Low 37-47 [facility] Hemoglobin A1con 03-01-2025 HbA1c (Bld) [Mass fraction] 7.6 % High <=5.6 [facility] Comment on above: Result Comment: Norm al < 5.7 % Prediabetic 5.7 - 6.4 % Diabetic >or= 6.5 % Please note range changes. Performed By: #### L 3100.5400, L100.0100, L500.4050, L501.9985, L500.4100, L501.4021 #### [facility] [facility] [address] [place], [address] Hemoglobin A1c percentageOrd ered By: Red Sandoval on 03-01-2025 HbA1c (Bld) [Mass fraction] 7.6 % High <5.7 [facility] Comment on above: Normal < 5.7 % Predi abetic 5.7 - 6.4 % Diabetic >or= 6.5 % Please note range changes. Hemoglobin measurementOrdere d By: Red Sandoval on 03-01-2025 Hemoglobin (Bld) [Mass/Vol] 7.2 g/dL Low 12.0-15.0 [facility] Hypochromatic red blood cell detectionOrdered By: Red Sandoval on 03-01-2025 Hypochromia Ql (Bld) 1+ [facility] Hypochromia Ql (Bld)Ordered By: Red Sandoval on 03-01-2025 Hypochromasia 1+ [facility] Immature granulocytes/100 WB C Auto (Bld)Ordered By: Red Sandoval on 03-01-2025 Immature granulocytes/100 WBC (Bld) 1.200 % High 0.0-0.9 [facility] Comment on above: IG% - Immature Granu locytes (promyelocytes, myelocytes and metamyelocytes) > 1% indicates that a LEFT SHIFT is Present. L501.4021on 03-01-2025 Trop T High Sen 14 ng/L Normal <=14 [facility] Comment on above: Order Comment: DR.MA BAILEY GETS RESULTS FOR CBCD CMP LIPID ANDPROLACTIN DR. SANDOVAL GETS RESULTS FOR CBCD BMP AND TROPNIN Performed By: #### L 3100.5400, L100.0100, L500.4050, L501.9985, L500.4100, L501.4021 #### [facility] [address] [place], [place], [id number] LDL calc ser/plasOrdered By: Red Sandoval on 03-01-2025 Cholesterol in LDL [Mass/Vol] 117 mg/dL [facility] Comment on above: Chhiyuqlxj=977-856 m g/dL & Higher Pbtl=510 mg/dL or greater LDL Cholesterol, Calculated 117 mg/dL [facility] Comment on above: Keqwwynsxp=140-297 m g/dL & Higher Wmxc=154 mg/dL or greater Laboratory - Chemistry and C hemistry - challengeOrdered By: Red Sandoval on 03-01-2025 AST [Catalytic activity/Vol] 86 U/L High <32 [facility] - Hematology and Cell countsOrdered By: Red Sandoval on 03-01-2025 Anisocytosis Ql (Bld) 2+ [facility] Lipid Profileon 03-01-2025 CHOL:HDL 3.89 Normal [facility] Comment on above: Order Comment: DR.MA BAILEY GETS RESULTS FOR CBCD CMP LIPID ANDPROLACTIN DR. SANDOVAL GETS RESULTS FOR CBCD BMP AND TROPNIN Performed By: #### L 3100.5400, L100.0100, L500.4050, L501.9985, L500.4100, L501.4021 #### [facility] [address] [place], [address] Cholesterol [Mass/Vol] 194 mg/dL Normal <=200 [facility] Comment on above: Order Comment: DR.MA BAILEY GETS RESULTS FOR CBCD CMP LIPID ANDPROLACTIN DR. SANDOVAL GETS RESULTS FOR CBCD BMP AND TROPNIN Result Comment: Chol esterol level, Desirable <200 mg/dL Borderline high cholesterol 200-239 mg/dL High cholesterol >=240 mg/dL Recommendations of the NCEP Adult Treatment Panel for the following risk-cutoff thresholds for the [place] population. Performed By: #### L 3100.5400, L100.0100, L500.4050, L501.9985, L500.4100, L501.4021 #### [facility] [address] [place], [address] Cholesterol in HDL [Mass/Vol] 50 mg/dL Normal [facility] Comment on above: Order Comment: DR.MA BAILEY GETS RESULTS FOR CBCD CMP LIPID ANDPROLACTIN DR. SANDOVAL GETS RESULTS FOR CBCD BMP AND TROPNIN Result Comment: Mayda onal Cholesterol Education Program (NCEP) guidelines: <40 mg/dL: Low HDL-cholesterol (major risk factor for CHD) >= 60 mg/dL: High HDL-cholesterol (negative risk factor for CHD) HDL-cholesterol is affected by a number of factors, e.g. smoking, exercise, hormones, sex and age. Performed By: #### L 3100.5400, L100.0100, L500.4050, L501.9985, L500.4100, L501.4021 #### [facility] [address] [place], [address] Cholesterol in LDL [Mass/Vol] 117 mg/dL Normal [facility] Comment on above: Order Comment: DR.MA BAILEY GETS RESULTS FOR CBCD CMP LIPID ANDPROLACTIN DR. SANDOVAL GETS RESULTS FOR CBCD BMP AND TROPNIN Result Comment: Bord xmdtri=661-587 mg/dL Higher Mqzt=578 mg/dL or greater Performed By: #### L 3100.5400, L100.0100, L500.4050, L501.9985, L500.4100, L501.4021 #### [facility] [address] [place], [address] Cholesterol in VLDL [Mass/Vol] 27 mg/dL Normal 5-40 [facility] Comment on above: Order Comment: DR.MA BAILEY GETS RESULTS FOR CBCD CMP LIPID ANDPROLACTIN DR. SANDOVAL GETS RESULTS FOR CBCD BMP AND TROPNIN Performed By: #### L 3100.5400, L100.0100, L500.4050, L501.9985, L500.4100, L501.4021 #### [facility] [address] [facility] [place], [address] Triglyceride [Mass/Vol] 134 mg/dL Normal [facility] Comment on above: Order Comment: DR.MA BAILEY GETS RESULTS FOR CBCD CMP LIPID ANDPROLACTIN DR. SANDOVAL GETS RESULTS FOR CBCD BMP AND TROPNIN Result Comment: The drugs N-Acetylcysteine and Metamizole may falsely depress this assay. Normal range: <150 mg/dL Borderline High: 150-199 mg/dL High: 200-499 mg/dL Very High: >500 mg/dL Performed By: #### L 3100.5400, L100.0100, L500.4050, L501.9985, L500.4100, L501.4021 #### [facility] [address] [facility] [place], [place], [id number] Lymphocytes Auto (Unsp spec) [#/Vol]Ordered By: Red Sandoval on 03-01-2025 Lymphocytes (Bld) [#/Vol] 0.63 10*3/uL Low 0.83-4.51 [facility] Lymphocytes/100 WBC Auto (Un sp spec)Ordered By: Red aSndoval on 03-01-2025 Lymphocytes/100 WBC (Bld) 12.6 % Low 19-41 [facility] MCV (mean corpuscular volume ) determinationOrdered By: Red Sandoval on 03-01-2025 MCV (RBC) [Entitic vol] 75.4 fL Low 81-99 [facility] Mean corpuscular hemoglobin (MCH) determinationOrdered By: Red Sandoval on 03-01-2025 MCH (RBC) [Entitic mass] 20.3 pg Low 27.0-32.0 [facility] Mean corpuscular hemoglobin concentration (MCHC) determinationOrdered By: Red Sandoval on 03-01-2025 MCHC (RBC) [Mass/Vol] 27.0 g/dL Low 32-36 [facility] Mean platelet volume determi nationOrdered By: Red Sandoval on 03-01-2025 Platelet mean volume (Bld) [Entitic vol] 10.5 fL 6.2-12.0 [facility] Monocyte percentageOrdered B y: Red Sandoval on 03-01-2025 Monocytes/100 WBC (Bld) 8.0 % 0-[address] [facility] Neutrophil percentageOrdered By: Red Sandoval on 03-01-2025 Neutrophils/100 WBC (Bld) 73.8 % High 47-70 [facility] Nucleated red blood cell per centageOrdered By: Red Sandoval on 03-01-2025 Nucleated RBC/100 WBC (Bld) [Ratio] 0 % 0-5 [facility] Platelet countOrdered By: Yousuf Sandoval on 03-01-2025 Platelet Count See comment 150-450 [facility] Comment on above: Please note: For [...] 03-01-2025 Platelets LM Ql (Bld) ADEQUATE ADEQ [facility] Platelets LM Ql (Bld)Ordered By: Red Sandoval on 03-01-2025 Platelet Estimate [facility] Potassium (Unsp spec) [Mass/ Vol]Ordered By: Red Sandoval on 03-01-2025 Potassium [Moles/Vol] 4.2 mmol/L 3.3-5.1 [facility] Potassium measurement (mass/ volume)Ordered By: Red Sandoval on 03-01-2025 Potassium (Unsp spec) [Mass/Vol] 4.2 mmol/L 3.3-5.1 [facility] Prolactin [Mass/Vol]Ordered By: Red Sandoval on 03-01-2025 Prolactin 62.0 ng/mL High 3.6-25.2 [facility] Comment on above: Performed at: [address] [id number] Director: Preston Ashley PhD, Phone: [phone] RBC Auto (Bld) [#/Vol]Ordere d By: Red Sandoval on 03-01-2025 RBC (Bld) [#/Vol] 3.54 10*6/uL Low 4.2-5.4 [facility] Screening total cholesterol/ high density lipoprotein (HDL) cholesterol ratioOrdered By: Red Sandoval on 03-01-2025 Cholesterol.total/Choles terol in HDL [Mass ratio] 3.89 {ratio} [facility] Serum creatinine measurement (mass/volume)Ordered By: Red Sandoval on 03-01-2025 Creatinine [Mass/Vol] 1.04 mg/dL 0.70-1.20 [facility] Serum globulin measurementOr dered By: Red Sandoval on 03-01-2025 Globulin (S) [Mass/Vol] 2.6 g/dL 2.2-4.[address] [facility] Serum glucose measurement (m ass/volume)Ordered By: Red Sandoval on 03-01-2025 Glucose [Mass/Vol] 158 mg/dL High 70-99 [facility] Serum or plasma alanine cueto otransferase (ALT) measurementOrdered By: Red Sandoval on 03-01-2025 ALT [Catalytic activity/Vol] 67 U/L High <35 [facility] Serum or plasma albumin sandy urement (mass/volume)Ordered By: Red Sandoval on 03-01-2025 Albumin [Mass/Vol] 4.2 g/dL 3.5-5.0 [facility] Serum or plasma albumin/glob ulin mass ratioOrdered By: Red Sandoval on 03-01-2025 Albumin/Globulin [Mass ratio] 1.6 {ratio} 0.9-2.4 [facility] Serum or plasma alkaline rebecca sphatase measurementOrdered By: Red Sandoval on 03-01-2025 ALP [Catalytic activity/Vol] 190 U/L High 35-104 [facility] Serum or plasma calcium sandy urement (mass/volume)Ordered By: Red Sandoval on 03-01-2025 Calcium [Mass/Vol] 8.9 mg/dL 7.6-11.0 [facility] Serum or plasma cholesterol in HDL measurement (mass/volume)Ordered By: Red Sandoval on 03-01-2025 Cholesterol in HDL [Mass/Vol] 50 mg/dL >40 [facility] Comment on above: National Cholesterol Education Program (NCEP) guidelines:<40 mg/dL: Low HDL-cholesterol (major risk factor for CHD)>= 60 mg/dL: High HDL-cholesterol (negative risk factor for CHD)HDL-cholesterol is affected by a number of factors, e.g. smoking, exercise, hormones, sex and age. Serum or plasma cholesterol measurement (mass/volume)Ordered By: Red Sandoval on 03-01-2025 Cholesterol [Mass/Vol] 194 mg/dL <201 [facility] Comment on above: Cholesterol level, D esirable <200 mg/dLBorderline high cholesterol 200-239 mg/dLHigh cholesterol >=240 mg/dLRecommendations of the NCEP Adult Treatment Panel for the following risk-cutoff thresholds for the [place] population. Serum or plasma prolactin me asurement (mass/volume)Ordered By: Red Sandoval on 03-01-2025 Prolactin [Mass/Vol] 62.0 ng/mL High 3.6-25.2 [facility] Comment on above: Performed at: [address] Director: Preston Ashley PhD, Phone: [phone] Serum or plasma urea nitroge n measurement (mass/volume)Ordered By: Red Sandoval on 03-01-2025 Urea nitrogen [Mass/Vol] 12 mg/dL 4-19 [facility] Sodium levelOrdered By: Red Sandoval on 03-01-2025 Sodium [Moles/Vol] 138 mmol/L 133-145 [facility] Total proteinOrdered By: Senait Sandoval on 03-01-2025 Protein [Mass/Vol] 6.8 g/dL 5.9-8.4 [facility] Triglycerides measurementOrd ered By: Red Sandoval on 03-01-2025 Triglyceride [Mass/Vol] 134 mg/dL <[address] [facility] Comment on above: The drugs N-Acetylcy steine and Metamizole may falsely depress this assay. Normal range: <150 mg/dLBorderline High: 150-199 mg/dLHigh: 200-499 mg/dLVery High: >500 mg/dL Troponin T.cardiac High sens itivity method [Mass/Vol]Ordered By: Red Sandoval on 03-01-2025 Troponin T High Sensitivity 14 ng/L <14 [facility] Troponin T.cardiac [Mass/vol ume] in Serum or Plasma by High sensitivity methodOrdered By: Red Sandoval on 03-01-2025 Troponin T.cardiac High sensitivity method [Mass/Vol] 14 ng/L <14 [facility] White blood cell (WBC) count Ordered By: Red Sandoval on 03-01-2025 WBC (Bld) [#/Vol] 5.0 10*3/uL 4.4-11.0 [facility] Urgent Care Visit Reporton 1 12-08-2023 Urgent Care Visit Report [facility] [address] , [address] [place] [address] OFFICE VISIT Date of Service: 10/08/24 MR#: [id number] Acct: [id number] Name: HEIDI ANDREWS Rep #: [id number] : 1970 Provider: DELILAH hansen Age/Sex: 54/F Location: [facility] Status: Signed Intake Vital Signs 12/01/22 09:27 [...] (Updated 10/08/24 @ 08:54 by Enrique Hwang FISH CHECKER, FISH CHECKER-C) Wears glasses Thyroid disease Diabetes Anemia Former [...] moist mu (more content not included)... Normal [facility] Cervical or vagninal specime n microscopic examination by cytology stain (reported asOrdered By: Patricia Thompson on 02-07-2024 Cytology report Cyto stain Doc (Cvx/Vag) Comment . [facility] Comment on above: The Pap smear [...] DNA Probe+sig amp Ql (Cvx) Negative Negative [facility] Comment on above: This nucleic acid am plification test detects fourteen high-risk HPV types (16,18,31,33,35,39,45,51,52,56,58,59,66,68)without differentiation.Performed at: [facility] [id number] Director: Cierra Chew MD, Phone: [phone] at: =[facility] - [facility] [address] [id number] Director: Cierra Chew MD, Phone: [phone] Laboratory - CytologyOrdered By: Patricia Thompson on 02-07-2024 Training Administrator Cyto stain Nom (Cvx/Vag) [ID] Comment . [facility] Comment on above: Pema Kincaid, Cyto technologist (ASCP) Laboratory - Miscellaneous t estsOrdered By: Patricia Thompson on 02-07-2024 Service comment (Unsp spec) [Interp] . . [facility] Thin prep Papanicolaou smear with manual screeningOrdered By: Patricia Thompson on 02-07-2024 Thin prep Papanicolaou smear with manual screening Comment . [facility] Comment on above: NEGATIVE FOR INTRAEP ITHELIAL LESION OR MALIGNANCY. This liquid based Th inPrep(R) pap test was screened withthe use of an image guided system. Basophil percentageOrdered B y: Red Sandoval on 01-19-2024 Chloride [Moles/Vol] 104 mmol/L 98-107 [facility] Cholesterol [Mass/Vol] 197 mg/dL <200 [facility] Comment on above: <200 mg/dL Desirable 200-240 mg/dL Borderline >240 mg/dL High Risk Glucose [Mass/Vol] 108 mg/dL 74-106 [facility] Comment on above: Fasting Glucose resu lt from 100 to 125 mg/dL suggests IMPAIRED HOMEOSTASIS per A.D.A. criteria. Potassium [Moles/Vol] 4.2 mmol/L 3.5-5.1 [facility] Sodium [Moles/Vol] 136 mmol/L 136-145 [facility] Triglyceride [Mass/Vol] 132 mg/dL <[address] [facility] Comment on above: The drugs N-Acetylcy steine and Metamizole may falsely depress this assay.Serum Triglycerides Reference Interval Normal <150 mg/dL Borderline high 150 - 199 mg/dL High 200 - 499 mg/dL Very High > or = 500 mg/dL Laboratory - Chemistry and C hemistry - challengeOrdered By: Red Sandoval on 01-19-2024 Cholesterol in HDL [Mass/Vol] 43 mg/dL >40 [facility] Comment on above: The drugs N-Acetylcy steine and Metamizole may falsely depress this assay. Reference Range HDL <40 mg/dL Low HDL Cholesterol HDL >or= 60 mg/dL High HDL Cholesterol Cholesterol in LDL [Mass/Vol] 128 mg/dL 0-130 [facility] CO2 [Moles/Vol] 27.0 mmol/L 21.0-32.0 [facility] Urea nitrogen/Creatinine [Mass ratio] 10.7 mg/mg 10-20 [facility] No Panel InformationOrdered By: Red Sandoval on 01-19-2024 Estimated GFR (MDRD) Amer 81 mL/min >60 [facility] Comment on above: GFR Calc Estimated GFR (MDRD) Non-Af Amer 67 mL/min >60 [facility] Comment on above: Non- GFR Calc Free Triiodothyronine (T3) pg/dL 2.0 pg/mL 2.18-3.98 [facility] VLDL Cholesterol 26 mg/dL 5-40 [facility] Serum or plasma calcium sandy urement (mass/volume)Ordered By: Red Sandoval on 01-19-2024 Calcium [Mass/Vol] 8.9 mg/dL 8.5-10.1 [facility] Serum or plasma creatinine m easurement (mass/volume)Ordered By: Red Sandoval on 01-19-2024 Creatinine [Mass/Vol] 0.93 mg/dL 0.55-1.02 [facility] Comment on above: The validity of the calculated GFR & GFRAA in patients over 70 years has not been determined. Clinical correlation is essential. Serum or plasma thyroid stim ulating hormone (TSH) measurement (units/volume)Ordered By: Red Sandoval on 01-19-2024 TSH Qn 2.60 uIU/mL 0.358-3.74 [facility] Serum or plasma urea nitroge n measurement (mass/volume)Ordered By: Red Sandoval on 01-19-2024 Urea nitrogen [Mass/Vol] 10 mg/dL 7-18 [facility] Thin prep Papanicolaou smear with manual screeningOrdered By: Red Sandoval on 01-19-2024 Thin prep Papanicolaou smear with manual screening 5 5-15 [facility] Thin prep Papanicolaou smear with manual screening 1.33 ng/dL 0.76-1.46 [facility] Basophil percentageOrdered B y: Red Sandoval on 07-26-2023 Chloride [Moles/Vol] 104 mmol/L 98-107 [facility] Cholesterol [Mass/Vol] 186 mg/dL <200 [facility] Comment on above: <200 mg/dL Desirable 200-240 mg/dL Borderline >240 mg/dL High Risk Glucose [Mass/Vol] 121 mg/dL 74-106 [facility] Comment on above: Fasting Glucose resu lt from 100 to 125 mg/dL suggests IMPAIRED HOMEOSTASIS per A.D.A. criteria. Potassium [Moles/Vol] 3.8 mmol/L 3.5-5.1 [facility] Sodium [Moles/Vol] 139 mmol/L 136-145 [facility] Triglyceride [Mass/Vol] 198 mg/dL <[address] [facility] Comment on above: The drugs N-Acetylcy steine and Metamizole may falsely depress this assay.Serum Triglycerides Reference Interval Normal <150 mg/dL Borderline high 150 - 199 mg/dL High 200 - 499 mg/dL Very High > or = 500 mg/dL Laboratory - Chemistry and C hemistry - challengeOrdered By: Red Sandoval on 07-26-2023 CO2 [Moles/Vol] 27.0 mmol/L 21.0-32.0 [facility] Urea nitrogen/Creatinine [Mass ratio] 10.4 mg/mg 10-20 [facility] No Panel InformationOrdered By: Red Sandoval on 07-26-2023 Estimated GFR (MDRD) Amer 79 mL/min >60 [facility] Comment on above: GFR Calc Estimated GFR (MDRD) Non-Af Amer 65 mL/min >60 [facility] Comment on above: Non- GFR Calc Thyroid Stimulating Hormone (TSH) 1.67 uIU/mL 0.358-3.74 [facility] Serum or plasma calcium sandy urement (mass/volume)Ordered By: Red Sandoval on 07-26-2023 Calcium [Mass/Vol] 8.8 mg/dL 8.5-10.1 [facility] Serum or plasma cholesterol in HDL measurement (mass/volume)Ordered By: Red Sandoval on 07-26-2023 Cholesterol in HDL [Mass/Vol] 36 mg/dL >40 [facility] Comment on above: The drugs N-Acetylcy steine and Metamizole may falsely depress this assay. Reference Range HDL <40 mg/dL Low HDL Cholesterol HDL >or= 60 mg/dL High HDL Cholesterol Serum or plasma cholesterol in VLDL measurement (mass/volume)Ordered By: Red Sandoval on 07-26-2023 Cholesterol in VLDL [Mass/Vol] 40 mg/dL 5-40 [facility] Serum or plasma creatinine m easurement (mass/volume)Ordered By: Red Sandoval on 07-26-2023 Creatinine [Mass/Vol] 0.96 mg/dL 0.55-1.02 [facility] Comment on above: The validity of the calculated GFR & GFRAA in patients over 70 years has not been determined. Clinical correlation is essential. Serum or plasma low density lipoprotein (LDL) cholesterol measurement (mass/volume)Ordered By: Red Sandoval on 07-26-2023 Cholesterol in LDL [Mass/Vol] 110 mg/dL 0-130 [facility] Serum or plasma urea nitroge n measurement (mass/volume)Ordered By: Red Sandoval on 07-26-2023 Urea nitrogen [Mass/Vol] 10 mg/dL 7-18 [facility] Thin prep Papanicolaou smear with manual screeningOrdered By: Red Sandoval on 07-26-2023 Thin prep Papanicolaou smear with manual screening 8 5-15 [facility] Whole blood hemoglobin A1c/t otal hemoglobin ratio (mass fraction)Ordered By: Red Sandoval on 07-26-2023 HbA1c (Bld) [Mass fraction] 5.6 % 3.8-5.6 [facility] Comment on above: Normal < 5.7 % Predi abetic 5.7 - 6.4 % Diabetic >or= 6.5 % Please note range changes. Basophil percentageOrdered B y: Dr. Sandoval on 01-25-2023 Chloride [Moles/Vol] 105 mmol/L 98-107 [facility] Cholesterol [Mass/Vol] 194 mg/dL <200 [facility] Comment on above: <200 mg/dL Desirable 200-240 mg/dL Borderline >240 mg/dL High Risk Glucose [Mass/Vol] 123 mg/dL 74-106 [facility] Comment on above: Fasting Glucose resu lt from 100 to 125 mg/dL suggests IMPAIRED HOMEOSTASIS per A.D.A. criteria. Potassium [Moles/Vol] 3.6 mmol/L 3.5-5.1 [facility] Sodium [Moles/Vol] 140 mmol/L 136-145 [facility] Triglyceride [Mass/Vol] 166 mg/dL <[address] [facility] Comment on above: The drugs N-Acetylcy steine and Metamizole may falsely depress this assay.Serum Triglycerides Reference Interval Normal <150 mg/dL Borderline high 150 - 199 mg/dL High 200 - 499 mg/dL Very High > or = 500 mg/dL Laboratory - Chemistry and C hemistry - challengeOrdered By: Dr. Sandoval on 01-25-2023 CO2 [Moles/Vol] 25.0 mmol/L 21.0-32.0 [facility] Free T4 [Mass/Vol] 1.31 ng/dL 0.76-1.46 [facility] Urea nitrogen/Creatinine [Mass ratio] 12.0 mg/mg 10-20 [facility] No Panel InformationOrdered By: Dr. Sandoval on 01-25-2023 Estimated GFR (MDRD) Amer 58 mL/min >60 [facility] Comment on above: GFR Calc Estimated GFR (MDRD) Non-Af Amer 48 mL/min >60 [facility] Comment on above: Non- GFR Calc Free Triiodothyronine (T3) pg/dL 1.5 pg/mL 2.18-3.98 [facility] Thyroid Stimulating Hormone (TSH) 1.52 uIU/mL 0.358-3.74 [facility] Serum or plasma calcium sandy urement (mass/volume)Ordered By: Dr. Sandoval on 01-25-2023 Calcium [Mass/Vol] 9.5 mg/dL 8.5-10.1 [facility] Serum or plasma cholesterol in HDL measurement (mass/volume)Ordered By: Dr. Sandoval on 01-25-2023 Cholesterol in HDL [Mass/Vol] 39 mg/dL >40 [facility] Comment on above: The drugs N-Acetylcy steine and Metamizole may falsely depress this assay. Reference Range HDL <40 mg/dL Low HDL Cholesterol HDL >or= 60 mg/dL High HDL Cholesterol Serum or plasma cholesterol in VLDL measurement (mass/volume)Ordered By: Dr. Sandoval on 01-25-2023 Cholesterol in VLDL [Mass/Vol] 33 mg/dL 5-40 [facility] Serum or plasma creatinine m easurement (mass/volume)Ordered By: Dr. Sandoval on 01-25-2023 Creatinine [Mass/Vol] 1.25 mg/dL 0.55-1.02 [facility] Comment on above: The validity of the calculated GFR & GFRAA in patients over 70 years has not been determined. Clinical correlation is essential. Serum or plasma low density lipoprotein (LDL) cholesterol measurement (mass/volume)Ordered By: Dr. Sandoval on 01-25-2023 Cholesterol in LDL [Mass/Vol] 122 mg/dL 0-130 [facility] Serum or plasma urea nitroge n measurement (mass/volume)Ordered By: Dr. Sandoval on 01-25-2023 Urea nitrogen [Mass/Vol] 15 mg/dL 7-18 [facility] Thin prep Papanicolaou smear with manual screeningOrdered By: Dr. Sandoval on 01-25-2023 Thin prep Papanicolaou smear with manual screening 10 5-15 [facility] Glucose Glucometer (BldC) [M ass/Vol]Ordered By: Dr. Marie on 12-01-2022 Glucose [Mass/Vol] 147 mg/dL 74-106 [facility] Comment on above: MANAGEMENT OF PATIEN T CARE PER NURSING PROTOCOL Basophil percentageon 2021 Chloride [Moles/Vol] 107 mmol/L 98-107 [facility] Work Phone: Cholesterol [Mass/Vol] 175 mg/dL <[address] [facility] Work Phone: Comment on above: <200 mg/dL Desirable 200-240 mg/dL Borderline >240 mg/dL High Risk Glucose [Mass/Vol] 117 mg/dL 74-106 [facility] Work Phone: Comment on above: Fasting Glucose resu lt from 100 to 125 mg/dL suggests IMPAIRED HOMEOSTASIS per A.D.A. criteria. Potassium [Moles/Vol] 4.0 mmol/L 3.5-5.1 [facility] Work Phone: Sodium [Moles/Vol] 140 mmol/L 136-145 [facility] Work Phone: Triglyceride [Mass/Vol] 141 mg/dL <[address] [facility] Work Phone: Comment on above: The drugs N-Acetylcy steine and Metamizole may falsely depress this assay.Serum Triglycerides Reference Interval Normal <150 mg/dL Borderline high 150 - 199 mg/dL High 200 - 499 mg/dL Very High > or = 500 mg/dL Laboratory - Chemistry and C hemistry - challengeon 07-27-2022 CO2 [Moles/Vol] 23.0 mmol/L 21.0-32.0 [facility] Work Phone: Free T4 [Mass/Vol] 1.26 ng/dL 0.76-1.46 [facility] Work Phone: [phone] Urea nitrogen/Creatinine [Mass ratio] 9.6 mg/mg 10-20 [facility] Work Phone: [phone] No Panel Informationon 07-27 Estimated GFR (MDRD) Amer 72 mL/min >60 [facility] Work Phone: Comment on above: GFR Calc Estimated GFR (MDRD) Non-Af Amer 60 mL/min >60 [facility] Work Phone: Comment on above: Non- GFR Calc Free Triiodothyronine (T3) pg/dL 2.0 pg/mL 2.18-3.98 [facility] Work Phone: Thyroid Stimulating Hormone (TSH) 1.24 uIU/mL 0.358-3.74 [facility] Work Phone: [phone] Serum or plasma calcium sandy urement (mass/volume)on 07-27-2022 Calcium [Mass/Vol] 9.1 mg/dL 8.5-10.1 [facility] Work Phone: [phone] Serum or plasma cholesterol in HDL measurement (mass/volume)on 07-27-2022 Cholesterol in HDL [Mass/Vol] 41 mg/dL >40 [facility] Work Phone: Comment on above: The drugs N-Acetylcy steine and Metamizole may falsely depress this assay. Reference Range HDL <40 mg/dL Low HDL Cholesterol HDL >or= 60 mg/dL High HDL Cholesterol Serum or plasma cholesterol in VLDL measurement (mass/volume)on 07-27-2022 Cholesterol in VLDL [Mass/Vol] 28 mg/dL 5-40 [facility] Work Phone: [phone] Serum or plasma creatinine m easurement (mass/volume)on 07-27-2022 Creatinine [Mass/Vol] 1.04 mg/dL 0.55-1.02 [facility] Work Phone: Comment on above: The validity of the calculated GFR & GFRAA in patients over 70 years has not been determined. Clinical correlation is essential. Serum or plasma low density lipoprotein (LDL) cholesterol measurement (mass/volume)on 07-27-2022 Cholesterol in LDL [Mass/Vol] 106 mg/dL 0-130 [facility] Work Phone: [phone] Serum or plasma urea nitroge n measurement (mass/volume)on 07-27-2022 Urea nitrogen [Mass/Vol] 10 mg/dL 7-18 [facility] Work Phone: [phone] Thin prep Papanicolaou smear with manual screeningon 07-27-2022 Thin prep Papanicolaou smear with manual screening 10 5-15 [facility] Work Phone: [phone] Culture, urineon 04-22-2022 Bacteria identified Cx Nom (U) Escherichia coli [facility] Work Phone: Basophil percentageon 2021 Basophil percentage 5-10 SEEN /hpf W [facility] Work Phone: [phone] Chloride [Moles/Vol] 104 mmol/L 98-107 [facility] Work [facility]: [phone] Cholesterol [Mass/Vol] 194 mg/dL <[address] [facility] Work Phone: [phone] Comment on above: <200 mg/dL Desirable 200-240 mg/dL Borderline >240 mg/dL High Risk Glucose [Mass/Vol] 105 mg/dL 74-106 [facility] Work Phone: Comment on above: Fasting Glucose resu lt from 100 to 125 mg/dL suggests IMPAIRED HOMEOSTASIS per A.D.A. criteria. Potassium [Moles/Vol] 4.3 mmol/L 3.5-5.1 [facility] Work Phone: [phone] Sodium [Moles/Vol] 137 mmol/L 136-145 [facility] Work Phone: [phone] Triglyceride [Mass/Vol] 191 mg/dL W [facility] Work Phone: [phone] Comment on above: The drugs N-Acetylcy steine and Metamizole may falsely depress this assay.Serum Triglycerides Reference Interval Normal <150 mg/dL Borderline high 150 - 199 mg/dL High 200 - 499 mg/dL Very High > or = 500 mg/dL Bilirubin Test strip Ql (U)o n 01-26-2022 Bilirubin Ql (U) Negative Negative [facility] Work Phone: [phone] Ketones Test strip Ql (U)on 01-26-2022 Ketones Ql (U) Negative Negative [facility] Work Phone: [phone] Laboratory - Chemistry and C hemistry - challengeon 01-26-2022 CO2 [Moles/Vol] 24.0 mmol/L 21.0-32.0 [facility] Work Phone: [phone] Free T4 [Mass/Vol] 1.36 ng/dL 0.76-1.46 [facility] Work Phone: [phone] Urea nitrogen/Creatinine [Mass ratio] 13.0 mg/mg 10-20 [facility] Work Phone: [phone] Mucus LM Ql (Urine sed)on Mucus Ql (Urine sed) 0 SEEN /hpf [facility] Work Phone: [phone] Nitrite Test strip Ql (U)on 01-26-2022 Nitrite Ql (U) Negative Negative [facility] Work Phone: No Panel Informationon 01-26 Estimated GFR (MDRD) Amer 59 mL/min >60 [facility] Work Phone: Comment on above: GFR Calc Estimated GFR (MDRD) Non-Af Amer 49 mL/min >60 [facility] Work Phone: Comment on above: Non- GFR Calc Free Triiodothyronine (T3) pg/dL 1.7 pg/mL 2.18-3.98 [facility] Work Phone: [phone] Thyroid Stimulating Hormone (TSH) 3.39 uIU/mL 0.358-3.74 [facility] Work Phone: Protein Test strip Ql (U)on 01-26-2022 Protein Ql (U) 30 mg/dl Negative [facility] Work Phone: [phone] Serum or plasma calcium sandy urement (mass/volume)on 01-26-2022 Calcium [Mass/Vol] 9.5 mg/dL 8.5-10.1 [facility] Work Phone: [phone] Serum or plasma cholesterol in HDL measurement (mass/volume)on 01-26-2022 Cholesterol in HDL [Mass/Vol] 33 mg/dL [facility] Work Phone: Comment on above: The drugs N-Acetylcy steine and Metamizole may falsely depress this assay. Reference Range HDL <40 mg/dL Low HDL Cholesterol HDL >or= 60 mg/dL High HDL Cholesterol Serum or plasma cholesterol in VLDL measurement (mass/volume)on 01-26-2022 Cholesterol in VLDL [Mass/Vol] 38 mg/dL 5-40 [facility] Work Phone: Serum or plasma creatinine m easurement (mass/volume)on 01-26-2022 Creatinine [Mass/Vol] 1.23 mg/dL 0.55-1.02 [facility] Work Phone: Comment on above: The validity of the calculated GFR & GFRAA in patients over 70 years has not been determined. Clinical correlation is essential. Serum or plasma low density lipoprotein (LDL) cholesterol measurement (mass/volume)on 01-26-2022 Cholesterol in LDL [Mass/Vol] 123 mg/dL 0-130 [facility] Work Phone: Serum or plasma urea nitroge n measurement (mass/volume)on 01-26-2022 Urea nitrogen [Mass/Vol] 16 mg/dL 7-18 [facility] Work Phone: Squamous epithelial cells de tection in urine sediment by light microscopyon 01-26-2022 Epithelial cells.squamous LM Ql (Urine sed) 5-10 SEEN /hpf [facility] Work Phone: Thin prep Papanicolaou smear with manual screeningon 01-26-2022 Thin prep Papanicolaou smear with manual screening 9 5-15 [facility] Work Phone: Urine blood detectionon 01-13 RBC Ql (U) Negative Negative [facility] Work Phone: [phone] RBC Ql (U) 0 SEEN /hpf [facility] Work Phone: Urine clarityon 01-26-2022 Clarity (U) Clear Clear [facility] Work Phone: Urine color determinationon 01-26-2022 Color (U) Yellow Yellow [facility] Work Phone: Urine glucose detectionon Glucose Ql (U) Normal mg/dl Normal [facility] Work Phone: [phone] Urine leukocyte esterase det ection by dipstickon 01-26-2022 Leukocyte esterase Test strip Ql (U) 500 /ul Negative [facility] Work Phone: [phone] Urine pHon 01-26-2022 pH (U) 6.0 [pH] [facility] Work Phone: Urine sediment bacteria coun t by microscopy (number/high power field)on 01-26-2022 Bacteria LM.HPF (Urine sed) [#/Area] 0 /[HPF] None Seen [facility] Work Phone: Urine specific gravity measu rementon 01-26-2022 Specific gravity (U) [Rel density] 1.015 [facility] Work Phone: Urobilinogen Auto test strip Ql (U)on 01-26-2022 Urobilinogen Ql (U) Normal mg/dl Normal [facility] Work Phone: Culture, urine Bacteria identified Cx Nom (U) Escherichia coli [facility] Work Phone: Vital Signs Date Time Vital Sign Value Performing Clinician Faci lity 06-04-2025 11:10-0400 Body height 167.[address] Red Sandoval MD Work Phone: [facility] 06-04-2025 11:10-0400 Body mass index (BMI) [Ratio] 43.4 kg/m2 Dr. Red Sandoval MD Work Phone: [facility] 06-04-2025 11:10-0400 Body temperature 97.6 [degF] Dr. Red Sandoval MD Work Phone: [facility] 06-04-2025 11:10-0400 Body weight 122.[address] Red Sandoval MD Work Phone: [facility] 06-04-2025 11:10-0400 Diastolic blood pressure 71 mm[Hg] Dr. Red Sandoval MD Work Phone: [facility] 06-04-2025 11:10-0400 Heart rate 78 /min Dr. Red Sandoval MD Work Phone: [facility] 06-04-2025 11:10-0400 Respiratory rate 18 /min Dr. Red Sandoval MD Work Phone: [facility] 06-04-2025 11:10-0400 SaO2% (BldA) [Mass fraction] 96 % Dr. Red Sandoval MD Work Phone: [phone])[phone] [place] [address] 06-04-2025 11:10-0400 Systolic blood pressure 121 mm[Hg] Dr. Red Sandoval MD Work Phone: 1(469)925-545224 [place] [address] 05-07-2025 08:27-0400 Body height 167.[address] Red Sandoval MD Work Phone: 4(807)161-733224 [place] [address] 05-07-2025 08:27-0400 Body mass index (BMI) [Ratio] 43.5 kg/m2 Dr. Red Sandoval MD Work Phone: 2(930)[phone] [place] [address] 05-07-2025 08:27-0400 Body temperature 98 [degF] Dr. Red Sandoval MD Work Phone: 3(457)895-214624 [place] [address] 05-07-2025 08:27-0400 Body weight 122.[address] Red Sandoval MD Work Phone: 8(529)079-884924 [place] [address] 05-07-2025 08:27-0400 Diastolic blood pressure 82 mm[Hg] Dr. Red Sandoval MD Work Phone: 7(717)263-265224 [place] [address] 05-07-2025 08:27-0400 Heart rate 75 /min Dr. Red Sandoval MD Work Phone: 6(115)519-130324 [place] [address] 05-07-2025 08:27-0400 Respiratory rate 18 /min Dr. Red Sandoval MD Work Phone: 7([phone])901-233524 [place] [address] 05-07-2025 08:27-0400 SaO2% (BldA) [Mass fraction] 96 % Dr. Red Sandoval MD Work Phone: 9(535)046-793767 [place] [address] 05-07-2025 08:27-0400 Systolic blood pressure 132 mm[Hg] Dr. Red Sandoval MD Work Phone: 0(863)[phone] [place] [address] 03-29-2025 10:18-0400 Diastolic blood pressure 51 mm[Hg] Dr. Red Snadoval MD Work Phone: 7(278)831-018124 [place] [address] 03-29-2025 10:18-0400 Heart rate 79 /min Dr. Red Sandoval MD Work Phone: [facility] 03-29-2025 10:18-0400 Respiratory rate 16 /min Dr. Red Sandoval MD Work Phone: [facility] 03-29-2025 10:18-0400 SaO2% (BldA) [Mass fraction] 97 % Dr. Red Sandoval MD Work Phone: 0(478)854-371167 [place] [address] 03-29-2025 10:18-0400 Systolic blood pressure 114 mm[Hg] Dr. Red Sandoval MD Work Phone: 9(066)262-698767 [place] [address] 03-29-2025 08:03-0400 Body height 167.[address] Red Sandoval MD Work Phone: 5(763)298-476024 [place] [address] 03-29-2025 08:03-0400 Body mass index (BMI) [Ratio] 43.5 kg/m2 Dr. Red Sandoval MD Work Phone: 1(503)707-821367 [place] [address] 03-29-2025 08:03-0400 Body temperature 96.4 [degF] Dr. Red Sandoval MD Work Phone: 7(575)966-476824 [place] [address] 03-29-2025 08:03-0400 Body weight 122.[address] Red Sandoval MD Work Phone: 6(996)814-737624 [place] [address] 03-08-2025 08:22-0400 Body mass index (BMI) [Ratio] 44.7 kg/m2 Dr. Red Sandoval MD Work Phone: 8(150)243-954367 [place] [address] 03-08-2025 08:22-0400 Body temperature 98.3 [degF] Dr. Red Sandoval MD Work Phone: 9(358)959-875907 [address] 03-08-2025 08:22-0400 Body weight 125.[address] Red Sandoval MD Work Phone: 8(907)802-553907 [address] 03-08-2025 08:22-0400 Diastolic blood pressure 74 mm[Hg] Dr. Red Sandoval MD Work Phone: 4(233)702-931907 [address] 03-08-2025 08:22-0400 Heart rate 78 /min Dr. Red Sandoval MD Work Phone: [facility] 03-08-2025 08:22-0400 Respiratory rate 18 /min Dr. Red Sandoval MD Work Phone: [facility] 03-08-2025 08:22-0400 SaO2% (BldA) [Mass fraction] 97 % Dr. Red Sandoval MD Work Phone: [facility] 03-08-2025 08:22-0400 Systolic blood pressure 113 mm[Hg] Dr. Red Sandoval MD Work Phone: [facility] 12-01-2022 10:40-0500 Body temperature 96.9 [degF] Dr. Red Sandoval Work Phone: [facility] 12-01-2022 10:40-0500 Diastolic blood pressure 64 mm[Hg] Dr. Red Sandoval Work Phone: 1(902)827-619067 [place] [address] 12-01-2022 10:40-0500 Heart rate 62 /min Dr. Red Sandoval Work Phone: [facility] 12-01-2022 10:40-0500 Respiratory rate 16 /min Dr. Red Sandoval Work Phone: [facility] 12-01-2022 10:40-0500 SaO2% (BldA) [Mass fraction] 96 % Dr. Red Sandoval Work Phone: [facility] 12-01-2022 10:40-0500 Systolic blood pressure 106 mm[Hg] Dr. Red Sandoval Work Phone: [facility] 12-01-2022 09:27-0500 Body height 167.[address] Red Sandoval Work Phone: [facility] 12-01-2022 09:27-0500 Body mass index (BMI) [Ratio] 36.3 kg/m2 Dr. Red Sandoval Work Phone: [facility] 12-01-2022 09:27-0500 Body weight [address] Red Sandoval Work Phone: [facility] 11-10-2022 16:24-0500 Body mass index (BMI) [Ratio] 37.1 kg/m2 Dr. Red Sandoval Work Phone: [facility] 11-10-2022 16:24-0500 Body weight 104.[address] Red Sandoval Work Phone: [facility] Encounters Encounter Date Encounter Type Care Provider Facility Start: 09-05-2025 ambulatory [facility] Facility:[facility] Start: 08-27-2025 ambulatory Red Sandoval Facility:[facility] Start: 08-27-2025 End: 08-27-2025 ambulatory Red Sandoval Facility[facility] Start: 08-22-2025 ambulatory Red Sandoval Facility:[facility] Start: 08-17-2025 ambulatory Red Sandoval Facility:[facility] Start: 08-13-2025 End: 08-13-[address] Red Sandoval MD Work Phone: -Radiology [facility] Start: 08-13-2025 End: 08-13-[address] Nikolai Kim MD -Radiology [facility] Work Phone: Start: 08-13-2025 End: 08-13-2025 ambulatory Nikolai Kim Facility:[facility] Start: 06-27-2025 End: 06-27-[address] Red Sandoval MD Work Phone: -Laboratory [facility] Start: 06-27-2025 End: 06-27-[address] Red Sandoval MD -Laboratory [facility] Start: 06-27-2025 End: 06-27-2025 ambulatory Red Sandoval Facility:[facility] Start: 06-15-2025 End: 06-15-[address] Red Sandoval MD Work Phone: -Radiology [place] Start: 06-15-2025 End: 06-15-[address] Nikolai Kim MD -Radiology [place] Work Phone: Start: 06-15-2025 End: 06-15-2025 ambulatory Nikolai Kim Facility:[facility] Start: 06-04-[address] Glen Chapman MD -[facility] Start: 06-04-2025 End: 06-04-[address] Glen Chapman MD -[facility] Work Phone: Start: 06-04-2025 End: 06-04-[address] Red Sandoval MD Work Phone: -[facility] Start: 05-07-2025 End: 05-07-[address] Glen Chapman MD -[facility] Work Phone: Start: 05-07-2025 End: 05-07-2025 ambulatory Red Sandoval Facility:[facility] Start: 05-07-[address] Glen Chapman MD -[facility] Start: 04-17-2025 ambulatory Red Sandoval Facility:[facility] Start: 04-17-2025 Non-patient / Non-visit Dr. John real MD -[facility] Start: 04-17-2025 End: 04-17-[address] Red Sandoval MD Work Phone: [facility] Work Phone: Start: 04-17-2025 End: 04-17-[address] Red Sandoval MD -Cardiovascular Services Work Phone: Start: 04-17-2025 End: 04-17-2025 ambulatory Red Sandoval Facility:[facility] Start: 03-29-2025 End: 03-29-[address] Red Sandoval MD Work Phone: [facility] Work Phone: Start: 03-29-2025 End: 03-29-[address] Red Sandoval MD -[facility] Start: 03-29-[address] Glen Chapman MD -[facility] Start: 03-29-2025 End: 03-29-2025 ambulatory Red Sandoval Facility:[facility] Start: 03-08-2025 End: 03-08-[address] Glen Chapman MD -[facility] Work Phone: Start: 03-08-2025 End: 03-08-2025 ambulatory Red Sandoval Facility:[facility] Start: 03-05-2025 Non-patient / Non-visit Yamila Cohen si [facility] -[facility] Work Phone: Start: 03-05-2025 ambulatory Red Sandoval Facility:[facility] Start: 03-05-2025 End: 03-05-[address] [facility] Start: 03-05-2025 End: 03-05-2025 ambulatory Red Sandoval Facility:[facility] Start: 03-01-2025 End: 03-01-[address] Red Sandoval MD Work Phone: [facility] Work Phone: Start: 03-01-2025 End: 03-01-[address] [facility] Start: 03-01-2025 End: 03-01-2025 ambulatory Red Sandoval Facility:[facility] Start: 10-08-2024 End: 10-08-2024 ambulatory Red Sandoval Facility:[facility] Start: 02-07-2024 End: 02-07-2024 ambulatory [facility] Work Phone: Start: 02-07-2024 End: 02-07-2024 Patient encounter procedure [facility]Laboratory[facility] Work Phone: Start: 01-19-2024 End: 01-19-2024 ambulatory [facility] Work Phone: Start: 01-19-2024 End: 01-19-2024 Patient encounter procedure [facility] Start: 07-26-2023 End: 07-26-2023 ambulatory [facility] Work Phone: Start: 07-26-2023 End: 07-26-2023 Patient encounter procedure [facility] Start: 01-25-2023 End: 01-25-[address] Red Sandoval Work Phone: [facility] Work Phone: Start: 01-25-2023 End: 01-25-[address] Red Sandoval [facility] Start: 12-01-2022 Non-patient / Non-visit Dr. Yousuf Sandoval Work Phone: [facility] Start: 12-01-2022 End: 12-01-2022 Admission to same day surgery center Dr. Red Sandoval Work Phone: [facility]End[facility] Start: 12-01-2022 End: 12-01-[address] Red Sandoval Work Phone: [facility] Work Phone: Start: 11-10-2022 Non-patient / Non-visit Dr. Yousuf Sandoval Work Phone: [facility] Start: 07-27-2022 End: 07-27-2022 ambulatory [facility] Work Phone: Start: 07-27-2022 End: 07-27-2022 Patient encounter procedure [facility] Start: 06-26-2022 End: 06-26-2022 [facility] Start: 04-22-2022 End: 04-22-2022 [facility] Start: 01-26-2022 End: 01-26-2022 Patient encounter procedure [facility] Procedures Date Procedure Procedure Detail Performing Clinician Start: 06-27-2025 Total iron binding c apacity measurement Dr. Red Sandoval MD Work Phone: Start: 06-15-2025 X-ray of chest, PA a nd lateral views Dr. Red Sandoval MD Work Phone: Start: 06-04-[address] Rde Sandoval MD Work Phone: Start: 06-04-2025 Serum [...] Work Phone: Comment on above: Performed at: [address] [id number] Director: Preston Ashley PhD, Phone: [phone] Start: 12-01-20[address] [facility] [address] Red cool Work Phone: Start: 04-22-2022 Urine culture Urine culture Plan of Treatment Date Care Activity Detail Author Start: 08-24-2025 Lactate dehydrogenase measurement [facility] Start: 08-24-2025 Serum inorganic phosphate measurement [facility] Start: 08-24-2025 Vitamin B12 measurement [facility] Start: 06-04-2025 [facility] Start: 05-07-2025 [facility] Start: 03-08-2025 Patient referral [facility] Work Phone: Start: 12-01-2022 Colonoscopy flx dx w/collj spec when pfrmd DIAGNOSTIC COLONOSCOPY [facility] Start: 12-01-2022 Patient discharge [facility] C reactive protein [Mass/volume] in Serum or Plasma [facility] C reactive protein [Mass/volume] in Serum or Plasma [facility] CBC W Auto Different ial panel - Blood [facility] CBC W Auto Different ial panel - Blood [facility] CBC W Auto Different ial panel - Blood [facility] Cobalamin (Vitamin B 12) [Mass/volume] in Serum or Plasma [facility] Cobalamin (Vitamin B 12) [Mass/volume] in Serum or Plasma [facility] Colonoscopy [facility] Comprehensive metabo lic 1999 panel - Serum or Plasma [facility] Comprehensive metabo lic 1999 panel - Serum or Plasma [facility] Erythrocyte sediment ation rate [facility] Erythrocyte sediment ation rate [facility] Ferritin [Mass/volum e] in Serum or Plasma [facility] Ferritin [Mass/volum e] in Serum or Plasma [facility] Ferritin [Mass/volum e] in Serum or Plasma [facility] Folate [Moles/volume ] in Serum or Plasma [facility] Folate [Moles/volume ] in Serum or Plasma [facility] Folate [Moles/volume ] in Serum or Plasma [facility] Iron and Iron bindin g capacity panel - Serum or Plasma [facility] Iron and Iron bindin g capacity panel - Serum or Plasma [facility] Iron and Iron bindin g capacity panel - Serum or Plasma [facility] Lactate dehydrogenas e measurement [facility] Lactate dehydrogenas e measurement [facility] Lactate dehydrogenas e measurement [facility] Magnesium measurement [facility] Magnesium measurement [facility] Magnesium measurement [facility] Patient referral [facility] Work Phone: Serum inorganic phos phate measurement [facility] Serum inorganic phos phate measurement [facility] Serum inorganic phos phate measurement [facility] Vitamin B12 measurement [facility] Payers Date Payer Category Payer Private Health Insurance [id number] 2024 Private Health Insurance [id number] 2024 Self-pay [id number] Unknown [id number] Unknown [id number] 2.16.8 [id number] Unknown [id number] 2.16.8 [id number] Unknown [id number] 2.16.8 [id number] Unknown [id number] 2.16.8 [id number] Unknown [id number] 2.16.8 40.1.912547.3.579.2.462 Unknown [id number] 2.16.8 40.1.528368.3.579.2.462 Unknown [id number] 2.16.8 40.1.120951.3.579.2.462 Unknown [id number] 2.16.8 40.1.101652.3.579.2.462 Unknown [id number] 2.16.8 40.1.064687.3.579.2.462 Unknown [id number] 2.16.8 40.1.678256.3.579.2.462 Unknown [id number] 2.16.8 40.1.377186.3.579.2.462 Unknown [id number] 2.16.8 40.1.036850.3.579.2.462 Unknown [id number] 2.16.8 40.1.938372.3.579.2.462 Unknown [id number] 2.16.8 40.1.350729.3.579.2.462 Unknown [id number] 2.16.8 40.1.205220.3.579.2.462 Unknown [id number] 2.16.8 40.1.038092.3.579.2.462 Unknown [id number] 2.16.8 40.1.679987.3.579.2.462 Unknown [id number] 2.16.8 [id number] Social History Date Type Detail Facility Tobacco smoking status NHIS Unknown if ever smoked [facility] Work Phone: Start: 1970 Sex Assigned At Female [facility] Start: 12-01-2022 End: 12-01-2022 Tobacco smoking status NHIS Unknown if ever smoked [facility] Start: 03-05-2025 End: 03-08-2025 Tobacco smoking status NHIS Ex-smoker (finding) [facility] Start: 03-06-2025 Sex Female (finding) [facility] Sex Female [facility] NEGATED: Highlighted row [facility] Goals Date Patient Goal Desired Activity /State Mental Status Date Assessment Result Facility 03-29-2025 Cognitive function Awake;Alert;A ppropriate;Foll ows Commands [facility] Work Phone: 03-15-2025 Cognitive function Arousable To Voice/Nam e [facility] Work Phone: 12-01-2022 Cognitive function Voice/Name [facility] Work Phone: Clinical Notes 12-01-2022 to 08-13-2025 Note Date & Type Note Facility 08-13-2025 Radiology Diagnostic study note [facility] Imaging Services [address] [place], [place] [address] Fluoroscopy 1 Hr or Less MR#: [id number] Acct: [id number] Name: HEIDI ANDREWS Rep #: [id number] : 1970 F 55 From: Tiff Mcfarland MD PCP: Dr. Red Sandoval MD Status: REG C LI Study:Fluoroscopy 1 Hr or Less Date of Exam: 08/13/25 Exam# [id number] Ordering Dr: Nikolai Kim MD PROCEDURE: FLUOROSCOPY 1 HR OR LESS 08/13/2025 REASON FOR EXAM: Short of breath TECHNIQUE: Procedure Code: RADFL Modality: DX Procedure: FLUOROSCOPY 1 HR OR LESS COMPARISON: Chest x-ray dated 06/15/2025 FINDINGS: A sniff test was performed with demonstration of chronic elevation of the right hemidiaphragm. The diaphragmatic excursion is symmetric however slightly limited on the right. RAD/Fluoroscopy 1 Hr or Less IMPRESSION: Mild decrease in the right diaphragmatic excursion suggestive of mild paralysis. Reading Location: [place] [address] CC: Dr. Red Sandoval MD; Dr. Nikolai Kim MD ~ Briar Cutter: Signed [facility] 06-15-2025 Radiology Diagnostic study note [facility] Imaging Services [address] [place], [place] [id number] Chest PA and Lateral MR#: [id number] Acct: [id number] Name: HEIDI ANDREWS Rep #: [id number] : 1970 F 55 From: Ricardo Nunn MD PCP: Dr. Red Sandoval MD Status: REG C Study:Chest PA and Lateral Date of Exam: 06/15/25 Exam# [id number] Ordering Dr: Nikolai Kim MD PROCEDURE: CHEST [...] evidence of acute cardiopulmonary disease. Reading Location: [place] [address] CC: Dr. Red Sandoval MD; Dr. Nikolai Kim MD ~ Briar Cutter: Signed [facility] 06-04-2025 Progress note [facility] 06-04-2025 Progress note Note Date/Time June 04, 2025 12:39pm [facility] [place] [address] OFFICE VISIT Date of Service: 06/04/25 1109 MR#: [id number] Acct: [id number] Name: HEIDI ANDREWS Rep #: [id number] : 1970 From: Glen Chapman MD Age/Sex: 55/F Location[place] [facility] Status: Signed HPI Subjective Date of [...] deficiency. Comes for follow up. Feels better. [facility] Medical History Sleep apnea Wears glasses Thyroid [...] XL) valsartan 320 1 tab PO DAILY 11/10/2205/16 History mg-hydrochlorothiazide 12.5 mg tablet (Diovan HCT) [...] applicable) CC: Dr. Red Sandoval MD ~ [facility] Work Phone: 1(516) 459-444106-23-2025 Evaluation note* Diagnosis Onset Date Resolution Status Admit Date B12 deficiency chronic May 07, 2025 7:45am Iron deficiency anemia chronic Ju ne 2024 7:45am Hypomagnesemia resolved May 07, 2025 7:45am B12 deficiency chronic June 04, 2025 9:55am Iron deficiency anemia chronic Ju ly 2024 9:55am Hypomagnesemia resolved June 04, 2025 9:55am [facility] Work Phone: 1(693) 925-837404-24-2025 Evaluation note* Diagnosis Onset Date Resolution Status Admit Date Iron deficiency anemia acute Ap ril 2024 8:14am Anemia noneactive March 08 8:14am [facility] Work Phone: 1(527) 908-155604-24-2025 Evaluation note* Diagnosis Onset Date Resolution Status Admit Date Iron deficiency anemia chronic Ap ril 2024 8:14am Anemia noneactive March 08 8:14am B12 deficiency acute May 07, 2025 7:45am Hypomagnesemia acute May 07, 2025 7:45am Iron deficiency anemia chronic Ju ne 2024 7:45am [facility] Work Phone: 1(126) 546-350704-24-2025 Evaluation note* Diagnosis Onset Date Resolution Status [...] 9:55am Hypomagnesemia resolved June 04, 2025 9:55am [facility] Work Phone: 1([phone]) 126-319203-25-2024 NotePap Smear Specimen AdequacyMarch 2023 9:00amComment.Satisfactory for evaluation. Endocervical and/or squamous metaplasticcells (endocervical component)are present.[facility] INTER[facility]ACED A#[id number] HospitalComment on above:Satisfactory for evaluation. Endocervical and/or squamous metaplasticcells (endocervical component)are present.12-01-[address] [facility] 12-01-[address] [facility] Medical CenterEvaluation noteNo assessment information availableWMercy Health St. [facility]'s [facility] Work Phone: Evaluation note* Diagnosis Onset Date Resolution Status Encounter for screening for malignant neoplasm of colo n acute [facility] Work Phone: History and physical note Author Dr. Marie [facility] December 01, 2022 10:07am Note Date/Time December 01, 2022 1 0:07am [facility] Medical Records Department [address] [facility] [place] [address] History & Physical Exam 12/01/22 1005 MR#: [id number] Acct: [id number] Name: HEIDI ANDREWS Rep #:[id number] : 1970 52 From: Lamine gracia MD PCP: Dr. Red Sandoval MD Status:[facility] Location: [place] [address] HPI - General HPI Narrative HEIDI ANDREWS, is a 52 F who presents for screening colonoscopy. Patient reports no blood in the stool or abdominal pain. She has never had a colonoscopy in the past. No family history of colon cancer. [facility] Medical History Anemia Anxiety Bipolar disorder, unspecified [...] 09:05) Discharge Is Pt Admitted From a Half-Way, or a Half-Way: No Who Could Help: After D/C, Where [...] proceed with procedure. Lamine Marie MD Pager: [facility] [address] [place] [address], [address] [place] [address] Office: Surgery Risks - Colonoscopy Risks Include but are not Limited To: Risks include but are not limited to: Bleeding, perforation requiring further surgery, inability to complete colonoscopy requiring barium enema. 12/01/22 1007 <Electronically signed by Lamine Marie MD> Cosigner Signature (if applicable): CC: Dr. Lamine Marie MD; Dr. Red Sandoval MD~ Signed [facility] Work Phone: Reason for referral (narrative)No reason for referral information availableWMercy Health St. [facility] Work Phone: Chief Complaint and [...] MED ONC June 04, 2025 10:0 0am Chief Complaint Admit Date [facility] May 07, 2025 7:45 am [facility](10:00) June 04, 2025 9:55 am MED ONC June 04, 2025 10:0 0am Moderate persistent asthma July 7:50am Reason for Visit Admit Date B12 deficiency May 07, 2025 7:45 am Iron deficiency anemia May 07, 2025 7 :45am Hypomagnesemia May 07, 2025 7:45 am B12 deficiency June 04, 2025 9:55 am Iron deficiency anemia June 04, 2025 9 :55am Hypomagnesemia June 04, 2025 9:55 am Family History No Family History Records Found [...] Will No November 25 8:38am 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 Red Sandoval MD Primary Care Provider Active Start: March 01, 2025 End: March 01, 2025 Dr. Red Sandoval MD Attending Provider Active Start: March 01, 2025 End: March 01, 2025 Dr. Red Sandoval MD Referring Provider Active Start: March 01, 2025 End: March 01, 2025 ROSETTA KATELYNLETI Other Provider Active Start: March 01, 2025 [...] Provider Active Start: June 04, 2025 Dr. Glne Chapman MD Attending Provider Active S tart: [...] 04, 2025 End: June 04, 2025 Dr. Geln Chapman MD Attending Provider Active S tart: [...] 2025 End: June 27, 2025 Team Status: Active Member Role/Relationship Status Dates Dr. Red Sandoval MD Primary care physician Active Team Status: Inactive Member Role/Relationship Status Dates Dr. Red Sandoval MD Primary care physician Active Start: May 07, 2025 End: May 07, 2025 Dr. Red Sandoval MD Referring Provider Active Start: May 07, 2025 End: May 07, 2025 Dr. Glen Chapman MD Attending physician Active Start: May 07, 2025 End: May 07, 2025 Team Status: Inactive Member Role/Relationship Status Dates Dr. Red Sandoval MD Primary care physician Active Start: June 04, 2025 End: June 04, 2025 Dr. Red Sandoval MD Referring Provider Active Start: June 04, 2025 End: June 04, 2025 Dr. Glen Chapman MD Attending physician Active Start: June 04, 2025 End: June 04, 2025 Team Status: Active Member Role/Relationship Status Dates Dr. Red Sandoval MD Primary care physician Active Start: June 04, 2025 Dr. Glen Chapman MD Attending physician Active Start: June 04, 2025 Dr. Glen Chapman MD Referring Provider Active S tart: June 04, 2025 Team Status: Inactive Member Role/Relationship Status Dates Dr. Red Sandoval MD Primary care physician Active Start: June 15, 2025 End: June 15, 2025 Dr. Nikolai Kim MD Attending physician Active Start: June 15, 2025 End: June 15, 2025 Dr. Nikolai Kim MD Referring Provider Active Start: June 15, 2025 End: June 15, 2025 Team Status: Inactive Member Role/Relationship Status Dates Dr. Red Sandoval MD Primary care physician Active Start: June 27, 2025 End: June 27, 2025 Dr. Red Sandoval MD Attending physician Active Start: June 27, 2025 End: June 27, 2025 Team Status: Inactive Member Role/Relationship Status Dates Dr. Red Sandoval MD Primary care physician Active Start: August 13, 2025 End: August 13, 2025 Dr. Nikolai Kim MD Attending physician Active Start: August 13, 2025 End: August 13, 2025 Dr. Nikolai Kim MD Referring Provider Active Start: August 13, 2025 End: August 13, 2025 INFORMATION SOURCE (unrecogn ized section and content) DATE CREATED AUTHOR 08/30/2025 [facility] FOR RECORDS PERTAINING TO PATIENTS WHO ARE [...] BE BASED ON THE PRIMARY CLINICAL RECORDS. [facility]. provides no warranty or guarantee of the accuracy or completeness of information in this document.
[2025-08-31 11:19] LABS: Mucous, Urine 0 SEEN /hpf (<or=2+); Red Blood Cells-Urine 0 SEEN /hpf (0-5)
[2025-08-31 11:23] LABS: Color, Urine Yellow (Yellow); Glucose, Dipstick Normal (Normal); Ketone-Dipstick 5 mg/dl (Negative); Leukocyte Esterase-Dipstick 25 /ul (Negative); Nitrite-Dipstick Negative (Negative); Occult Blood-Urine 10 /ul (Negative); Protein-Dipstick 100 mg/dl (Negative); Specific Gravity, Urine 1.025 (1.002-1.030); Urine Bilirubin Dipstick 3 mg/dL (Negative)
[2025-08-31 11:28] LABS: Squamous Epithelial Cells - UA 10-25 SEEN /hpf (5-10)
[2025-08-31 12:00] VITALS: BP 96/52; PULSE 72; RESP 16; TEMP 36.7; O2SAT 99
[2025-08-31 12:04] VITALS: BP 96/52; PULSE 72; RESP 16; TEMP 36.7; O2SAT 99
[2025-08-31 12:40] LABS: Troponin T High Sens 2 HR 12 ng/L (<=14)
--- NOTE | 2025-08-31 13:05 | US_ITS ---
PROCEDURE: KIDNEY AND BLADDER 08/31/2025 REASON FOR EXAM: ACUTE KIDNEY INJURY TECHNIQUE: Procedure Code: USKI Modality: US Procedure: KIDNEY AND BLADDER COMPARISON: None available. FINDINGS: Kidneys: Normal renal sizes, parenchymal thicknesses, and echotextures. [place]: None. Cysts or Masses: No cysts or large solid renal masses. Bladder: Unremarkable appearance of the bladder with volume of 15.8 mL RIGHT Kidney Size: 12.1 x 4.7 x 4.1 cm Cortical Thickness (if discernible): 10 mm (>6mm is normal) LEFT Kidney Size: 10.9 x 4.3 x 4.2 cm Cortical Thickness (if discernible): 10 mm (>6mm is normal) US/Kidney and Bladder IMPRESSION: NORMAL RENAL ULTRASOUND. Reading Location: [facility]
[2025-08-31 13:27] VITALS: BMI 33.4
--- OUTSIDE RECORDS SUMMARY | 2025-08-31 13:30 | XMS RPT_ITS | CCD ---
Author Organization [facility] CliniSyfl Care Team Providers Care Ribbon Lapper Tender Name Role Phone Dr. Red Sandoval Primary [...] Julio JARAMILLO, Dr. Nikolai Mon Attending Physician Ana JARAMILLO, Dr. Moon Attending Physician Julio, Nikolai Mon Referring Unavailable Sibilia, Nikolai Mon Attending Unavailable Sandoval, Red Primary Care Unavailable Sandoval, Red Attending Unavailable Sandoval, Red Primary Care Unavailable Sandoval, Red Consulting Unavailable Sandoval, Red Referring Unavailable Sandoval, Red Primary Care Unavailable John Damian Attending Unavailable Sandoval, Red Primary Care Unavailable Sandoval, Red Referring Unavailable Roof TRANSMISSION ASSEMBLER, Enrique Pino Attending Unavailable Sandoval, Red Referring [...] Erythropoietinon 08-28-2025 ERYTHROPOIETIN 9.5 mIU/mL Normal 2.6-18.5 [facility] Comment on above: Result Comment: Droid system master DxI 800 Immunoassay System Values obtained with different assay methods or kits cannot be used interchangeably. Results cannot be interpreted as absolute evidence of the presence or absence of malignant disease. Performed By: #### L 3100.5400, L100.0100, L500.4050, L501.9985, L500.4100, L501.4021 #### [facility] [address] [place], [address] Hepatitis B/C Profile VIIIon 08-28-2025 COMMENT Comment Normal . [facility] Comment on above: Result Comment: Not infected with HCV unless early or acute infection is suspected (which may be delayed in an immunocompromised individual), or other evidence exists to indicate HCV infection. Performed By: #### L 3100.5400, L100.0100, L500.4050, L501.9985, L500.4100, L501.4021 #### [facility] [address] [place], [address] HEP B CORE,TOT Negative Normal Negative [facility] Comment on above: Performed By: #### L 3100.5400, L100.0100, L500.4050, L501.9985, L500.4100, L501.4021 #### [facility] [address] [place], [address] Hep B Micheal AB Non-Reactive Normal . [facility] Comment on above: Result Comment: Non Reactive: Not immune to HBV infection. Anti-HBs undetectable or less than 10 mIU/mL. Reactive: Evidence of HBV immunity. Anti-HBs levels greater than 10 mIU/mL. Performed By: #### L 3100.5400, L100.0100, L500.4050, L501.9985, L500.4100, L501.4021 #### [facility] [address] [place], [address] HEP B SURF AG Negative Normal Negative [facility] Comment on above: Performed By: #### L 3100.5400, L100.0100, L500.4050, L501.9985, L500.4100, L501.4021 #### [facility] [address] [place], [place], [address] HEP C Antibody Non-Reactive Normal Non Reactive [facility] Comment on above: Performed By: #### L 3100.5400, L100.0100, L500.4050, L501.9985, L500.4100, L501.4021 #### [facility] [address] [place], [place], [id number] HEPATITIS INTER Comment Normal . [facility] Comment on above: Result Comment: HBV Serology [...] 3100.5400, L100.0100, L500.4050, L501.9985, L500.4100, L501.4021 #### [facility] [address] [place], [place], [id number] IgG Subclasseson 08-28-2025 IgG, SUBCLASS 1 334 mg/dL Normal 248-810 [facility] Comment on above: Performed By: #### L 3100.5400, L100.0100, L500.4050, L501.9985, L500.4100, L501.4021 #### [facility] [address] [place], [address] IgG, SUBCLASS 2 281 mg/dL Normal 130-555 [facility] Comment on above: Performed By: #### L 3100.5400, L100.0100, L500.4050, L501.9985, L500.4100, L501.4021 #### [facility] [address] [place], [address] IgG, SUBCLASS 3 51 mg/dL Normal 15-102 [facility] Comment on above: Performed By: #### L 3100.5400, L100.0100, L500.4050, L501.9985, L500.4100, L501.4021 #### [facility] [address] [place], [address] IgG, SUBCLASS 4 3 mg/dL Normal 2-96 [facility] Comment on above: Performed By: #### L 3100.5400, L100.0100, L500.4050, L501.9985, L500.4100, L501.4021 #### [facility] [address] [place], [address] IGG,QUANT 718 mg/dL Normal 586-1602 [facility] Comment on above: Performed By: #### L 3100.5400, L100.0100, L500.4050, L501.9985, L500.4100, L501.4021 #### [facility] [address] [place], [address] Immunoglobulins G/A/Mon 10-11 18-2024 IMMUNOGLOB A QN 72 mg/dL Low 87-352 [facility] Comment on above: Order Comment: N Performed By: #### L 3100.5400, L100.0100, L500.4050, L501.9985, L500.4100, L501.4021 #### [facility] [address] [place], [address] IMMUNOGLOB M QN 49 mg/dL Normal 26-217 [facility] Comment on above: Order Comment: N Performed By: #### L 3100.5400, L100.0100, L500.4050, L501.9985, L500.4100, L501.4021 #### [facility] [address] [place], [address] L3410.9992on 08-28-2025 [facility]. COMMENT Normal . [facility] Comment on above: Order Comment: 30123 7ANA WITH [id number] Result Comment: Test Ordered: [id number] ANIRUDH, IFA Rfx 9 Frantz Multiplex ANIRUDH [...] detected by ANIRUDH IFA methodology. Performed at: [facility] [employer] [id number] Feeder Driver: Preston Ashley PhD, Phone: [phone] Performed By: #### L 3100.5400, L100.0100, L500.4050, L501.9985, L500.4100, L501.4021 #### [facility] [address] [place], [address] L501.5101on 08-28-2025 GGTP 62 IU/L Abnormal 0-60 [facility] Comment on above: Result Comment: Perf ormed at: [address] [id number] Feeder Driver: Preston Ashley PhD, Phone: [phone] Performed By: #### L 3100.5400, L100.0100, L500.4050, L501.9985, L500.4100, L501.4021 #### [facility] [address] [place], [address] CBC W/Diff, Automatedon 10-1 3-2024 Absolute Lymph 1.29 X10 3/uL Normal 0.83-4.51 [facility] Comment on above: Performed By: #### L 3000.0800, L100.9950, L3890.6006, L506.0200, L3410.9992, L101.9900, L503.0106, L500.4050, L501.1400, L400.0001, L503.6030, L3200.1200, L503.6550, L501.5101, L100.0100, L504.2610, L501.5200, L3200.0500, L501.6710, L3100.1350 #### [facility] [address] [place], [place], [phone] (529) Absolute Neut 5.3 X10 3/uL Normal 2.0-7.7 [facility] Comment on above: Performed By: #### L 3000.0800, L100.9950, L3890.6006, L506.0200, L3410.9992, L101.9900, L503.0106, L500.4050, L501.1400, L400.0001, L503.6030, L3200.1200, L503.6550, L501.5101, L100.0100, L504.2610, L501.5200, L3200.0500, L501.6710, L3100.1350 #### [facility] [address] [place], [place], [phone] (837) Basophils/100 WBC (Bld) 0.4 % Normal 0-1 [facility] Comment on above: Performed By: #### L 3000.0800, L100.9950, L3890.6006, L506.0200, L3410.9992, L101.9900, L503.0106, L500.4050, L501.1400, L400.0001, L503.6030, L3200.1200, L503.6550, L501.5101, L100.0100, L504.2610, L501.5200, L3200.0500, L501.6710, L3100.1350 #### [facility] [address] [place], [place], [phone] (322) Eosinophils/100 WBC (Bld) 2.2 % Normal 0-5 [facility] Comment on above: Performed By: #### L 3000.0800, L100.9950, L3890.6006, L506.0200, L3410.9992, L101.9900, L503.0106, L500.4050, L501.1400, L400.0001, L503.6030, L3200.1200, L503.6550, L501.5101, L100.0100, L504.2610, L501.5200, L3200.0500, L501.6710, L3100.1350 #### [facility] [address] [facility] [place], [place], [phone] Erythrocyte distribution width (RBC) [Ratio] 13.8 % Normal 11.6-14.6 [facility] Comment on above: Performed By: #### L 3000.0800, L100.9950, L3890.6006, L506.0200, L3410.9992, L101.9900, L503.0106, L500.4050, L501.1400, L400.0001, L503.6030, L3200.1200, L503.6550, L501.5101, L100.0100, L504.2610, L501.5200, L3200.0500, L501.6710, L3100.1350 #### [facility] [address] [facility] [place], [address] Hematocrit (Bld) [Volume fraction] 33.2 % Low 37-47 [facility] Comment on above: Performed By: #### L 3000.0800, L100.9950, L3890.6006, L506.0200, L3410.9992, L101.9900, L503.0106, L500.4050, L501.1400, L400.0001, L503.6030, L3200.1200, L503.6550, L501.5101, L100.0100, L504.2610, L501.5200, L3200.0500, L501.6710, L3100.1350 #### [facility] [address] [facility] [place], [address] Hemoglobin (Bld) [Mass/Vol] 11.3 g/dL Low 12.0-15.0 [facility] Comment on above: Performed By: #### L 3000.0800, L100.9950, L3890.6006, L506.0200, L3410.9992, L101.9900, L503.0106, L500.4050, L501.1400, L400.0001, L503.6030, L3200.1200, L503.6550, L501.5101, L100.0100, L504.2610, L501.5200, L3200.0500, L501.6710, L3100.1350 #### [facility] [address] [facility] [place], [address] IG% 2.200 High 0.0-0.9 [facility] Comment on above: Result Comment: IG% - Immature Granulocytes (promyelocytes, myelocytes and metamyelocytes) > 1% indicates that a LEFT SHIFT is Present. Performed By: #### L 3000.0800, L100.9950, L3890.6006, L506.0200, L3410.9992, L101.9900, L503.0106, L500.4050, L501.1400, L400.0001, L503.6030, L3200.1200, L503.6550, L501.5101, L100.0100, L504.2610, L501.5200, L3200.0500, L501.6710, L3100.1350 #### [facility] [address] [facility] [place], [address] Lymphocytes/100 WBC (Bld) 17.4 % Low 19-41 [facility] Comment on above: Performed By: #### L 3000.0800, L100.9950, L3890.6006, L506.0200, L3410.9992, L101.9900, L503.0106, L500.4050, L501.1400, L400.0001, L503.6030, L3200.1200, L503.6550, L501.5101, L100.0100, L504.2610, L501.5200, L3200.0500, L501.6710, L3100.1350 #### [facility] [address] [facility] [place], [address] MCH (RBC) [Entitic mass] 27.2 pg Normal 27.0-32.0 [facility] Comment on above: Performed By: #### L 3000.0800, L100.9950, L3890.6006, L506.0200, L3410.9992, L101.9900, L503.0106, L500.4050, L501.1400, L400.0001, L503.6030, L3200.1200, L503.6550, L501.5101, L100.0100, L504.2610, L501.5200, L3200.0500, L501.6710, L3100.1350 #### [facility] [address] [facility] [place], [address] MCHC (RBC) [Mass/Vol] 34.0 g/dL Normal 32-36 [facility] Comment on above: Performed By: #### L 3000.0800, L100.9950, L3890.6006, L506.0200, L3410.9992, L101.9900, L503.0106, L500.4050, L501.1400, L400.0001, L503.6030, L3200.1200, L503.6550, L501.5101, L100.0100, L504.2610, L501.5200, L3200.0500, L501.6710, L3100.1350 #### [facility] [address] [place], [place], [phone] (084) MCV (RBC) [Entitic vol] 80.0 fL Low 81-99 [facility] Comment on above: Performed By: #### L 3000.0800, L100.9950, L3890.6006, L506.0200, L3410.9992, L101.9900, L503.0106, L500.4050, L501.1400, L400.0001, L503.6030, L3200.1200, L503.6550, L501.5101, L100.0100, L504.2610, L501.5200, L3200.0500, L501.6710, L3100.1350 #### [facility] [address] [facility] [place], [place], [phone] (692) Monocytes/100 WBC (Bld) 6.2 % Normal 0-10 [facility] Comment on above: Performed By: #### L 3000.0800, L100.9950, L3890.6006, L506.0200, L3410.9992, L101.9900, L503.0106, L500.4050, L501.1400, L400.0001, L503.6030, L3200.1200, L503.6550, L501.5101, L100.0100, L504.2610, L501.5200, L3200.0500, L501.6710, L3100.1350 #### [facility] [address] [facility] [place], [address] Neutrophils/100 WBC (Bld) 71.6 % High 47-70 [facility] Comment on above: Performed By: #### L 3000.0800, L100.9950, L3890.6006, L506.0200, L3410.9992, L101.9900, L503.0106, L500.4050, L501.1400, L400.0001, L503.6030, L3200.1200, L503.6550, L501.5101, L100.0100, L504.2610, L501.5200, L3200.0500, L501.6710, L3100.1350 #### [facility] [address] [facility] [place], [address] Nucleated RBC (Bld) [#/Vol] 0 10*3/uL Normal 0-5 [facility] Comment on above: Performed By: #### L 3000.0800, L100.9950, L3890.6006, L506.0200, L3410.9992, L101.9900, L503.0106, L500.4050, L501.1400, L400.0001, L503.6030, L3200.1200, L503.6550, L501.5101, L100.0100, L504.2610, L501.5200, L3200.0500, L501.6710, L3100.1350 #### [facility] [address] [facility] [place], [address] Platelet mean volume (Bld) [Entitic vol] 9.5 fL Normal 6.2-12.0 [facility] Comment on above: Performed By: #### L 3000.0800, L100.9950, L3890.6006, L506.0200, L3410.9992, L101.9900, L503.0106, L500.4050, L501.1400, L400.0001, L503.6030, L3200.1200, L503.6550, L501.5101, L100.0100, L504.2610, L501.5200, L3200.0500, L501.6710, L3100.1350 #### [facility] [address] [place], [place], [phone] Platelets (Bld) [#/Vol] 333 10*3/uL Normal 150-450 [facility] Comment on above: Performed By: #### L 3000.0800, L100.9950, L3890.6006, L506.0200, L3410.9992, L101.9900, L503.0106, L500.4050, L501.1400, L400.0001, L503.6030, L3200.1200, L503.6550, L501.5101, L100.0100, L504.2610, L501.5200, L3200.0500, L501.6710, L3100.1350 #### [facility] [address] [place], [place], [phone] RBC (Bld) [#/Vol] 4.15 10*6/uL Low 4.2-5.4 [facility] Comment on above: Performed By: #### L 3000.0800, L100.9950, L3890.6006, L506.0200, L3410.9992, L101.9900, L503.0106, L500.4050, L501.1400, L400.0001, L503.6030, L3200.1200, L503.6550, L501.5101, L100.0100, L504.2610, L501.5200, L3200.0500, L501.6710, L3100.1350 #### [facility] [address] [place], [address] RDW SD 39.8 fl Normal 35.1-43.9 [facility] Comment on above: Performed By: #### L 3000.0800, L100.9950, L3890.6006, L506.0200, L3410.9992, L101.9900, L503.0106, L500.4050, L501.1400, L400.0001, L503.6030, L3200.1200, L503.6550, L501.5101, L100.0100, L504.2610, L501.5200, L3200.0500, L501.6710, L3100.1350 #### [facility] [address] [place], [place], [phone] WBC (Bld) [#/Vol] 7.4 10*3/uL Normal 4.4-11.0 [facility] Comment on above: Performed By: #### L 3000.0800, L100.9950, L3890.6006, L506.0200, L3410.9992, L101.9900, L503.0106, L500.4050, L501.1400, L400.0001, L503.6030, L3200.1200, L503.6550, L501.5101, L100.0100, L504.2610, L501.5200, L3200.0500, L501.6710, L3100.1350 #### [facility] [address] [facility] [place], [address] CRPon 08-27-2025 C-REACTIVE PROT 18.30 mg/L High 0.0-3.0 [facility] Comment on above: Performed By: #### L 3100.5400, L100.0100, L500.4050, L501.9985, L500.4100, L501.4021 #### [facility] [address] [place], [place], [phone] Comprehensive Metabolic Prof ilon 08-27-2025 Albumin [Mass/Vol] 4.6 g/dL Normal 3.5-5.0 [facility] Comment on above: Performed By: #### L 3100.5400, L100.0100, L500.4050, L501.9985, L500.4100, L501.4021 #### [facility] [address] [place], [address] Albumin/Globulin [Mass ratio] 1.2 {ratio} Normal 0.9-2.4 [facility] Comment on above: Result Comment: AMENDED REPORT 08/27/251519 A/G previously reported as: 1.2 RATIO Performed By: #### L 3100.5400, L100.0100, L500.4050, L501.9985, L500.4100, L501.4021 #### [facility] [address] [place], [address] ALK PHOS 194 U/L High 35-104 [facility] Comment on above: Result Comment: AMENDED REPORT 08/27/251519 ALK P previously reported as: 196 H U/L Performed By: #### L 3100.5400, L100.0100, L500.4050, L501.9985, L500.4100, L501.4021 #### [facility] [address] [place], [place], [id number] ALT [Catalytic activity/Vol] 8 U/L Normal <=34 [facility] Comment on above: Result Comment: AMENDED REPORT 08/27/251519 ALT previously reported as: 9 U/L Performed By: #### L 3100.5400, L100.0100, L500.4050, L501.9985, L500.4100, L501.4021 #### [facility] [address] [place], [address] AST [Catalytic activity/Vol] 17 U/L Normal <=31 [facility] Comment on above: Result Comment: AMENDED REPORT 08/27/251519 AST previously reported as: 19 U/L Performed By: #### L 3100.5400, L100.0100, L500.4050, L501.9985, L500.4100, L501.4021 #### [facility] [address] [place], [address] Bilirubin [Mass/Vol] 0.59 mg/dL Normal 0.00-1.30 [facility] Comment on above: Performed By: #### L 3100.5400, L100.0100, L500.4050, L501.9985, L500.4100, L501.4021 #### [facility] [address] [place], [address] BUN/CRE 16.9 RATIO Normal 10-20 [facility] Comment on above: Result Comment: AMENDED REPORT 08/27/251519 BUN/CRE previously reported as: 16.8 RATIO Performed By: #### L 3100.5400, L100.0100, L500.4050, L501.9985, L500.4100, L501.4021 #### [facility] [address] [place], [address] Calcium [Mass/Vol] 10.5 mg/dL Normal 7.6-11.0 [facility] Comment on above: Performed By: #### L 3100.5400, L100.0100, L500.4050, L501.9985, L500.4100, L501.4021 #### [facility] [address] [place], [address] Chloride [Moles/Vol] 90 mmol/L Low 98-108 [facility] Comment on above: Performed By: #### L 3100.5400, L100.0100, L500.4050, L501.9985, L500.4100, L501.4021 #### [facility] [address] [place], [address] CO2 [Moles/Vol] 20.0 mmol/L Low 21.0-32.0 [facility] Comment on above: Result Comment: AMENDED REPORT 08/27/251519 CO2 previously reported as: 19.6 L mmol/L Performed By: #### L 3100.5400, L100.0100, L500.4050, L501.9985, L500.4100, L501.4021 #### [facility] [address] [place], [address] Creatinine [Mass/Vol] 1.58 mg/dL High 0.70-1.20 [facility] Comment on above: Result Comment: AMENDED REPORT 08/27/251519 CREAT,SERUM previously reported as: 1.65 H mg/dL Performed By: #### L 3100.5400, L100.0100, L500.4050, L501.9985, L500.4100, L501.4021 #### [facility] [address] [place], [address] ECRCL 49.49 ml/min Low 50-250 [facility] Comment on above: Result Comment: AMENDED REPORT 08/27/251519 Estimated CRCL previously reported as: 47.39 L ml/min Performed By: #### L 3100.5400, L100.0100, L500.4050, L501.9985, L500.4100, L501.4021 #### [facility] [address] [place], [address] GAP 21 High 5-15 [facility] Comment on above: Performed By: #### L 3100.5400, L100.0100, L500.4050, L501.9985, L500.4100, L501.4021 #### [facility] [address] [place], [address] Globulin (S) [Mass/Vol] 3.7 g/dL Normal 2.2-4.2 [facility] Comment on above: Result Comment: AMENDED REPORT 08/27/251519 GLOB previously reported as: 3.8 g/dL Performed By: #### L 3100.5400, L100.0100, L500.4050, L501.9985, L500.4100, L501.4021 #### [facility] [address] [place], [address] Glucose [Mass/Vol] 161 mg/dL High 70-99 [facility] Comment on above: Result Comment: AMENDED REPORT 08/27/251519 GLU previously reported as: 165 H mg/dL Performed By: #### L 3100.5400, L100.0100, L500.4050, L501.9985, L500.4100, L501.4021 #### [facility] [address] [place], [address] Potassium [Moles/Vol] 4.0 mmol/L Normal 3.3-5.1 [facility] Comment on above: Performed By: #### L 3100.5400, L100.0100, L500.4050, L501.9985, L500.4100, L501.4021 #### [facility] [address] [place], [address] Sodium [Moles/Vol] 131 mmol/L Low 133-145 [facility] Comment on above: Performed By: #### L 3100.5400, L100.0100, L500.4050, L501.9985, L500.4100, L501.4021 #### [facility] [address] [place], [address] T PROT 8.2 g/dL Normal 5.9-8.4 [facility] Comment on above: Result Comment: AMENDED REPORT 08/27/251519 T PROT previously reported as: 8.4 g/dL Performed By: #### L 3100.5400, L100.0100, L500.4050, L501.9985, L500.4100, L501.4021 #### [facility] [address] [place], [place], [id number] Urea nitrogen [Mass/Vol] 27 mg/dL High 4-19 [facility] Comment on above: Result Comment: AMENDED REPORT 08/27/251519 BUN previously reported as: 28 H mg/dL Performed By: #### L 3100.5400, L100.0100, L500.4050, L501.9985, L500.4100, L501.4021 #### [facility] [address] [place], [place], [id number] Erythrocyte Sed Rateon 08-27 SED RATE 63 mm/hr High 0-30 [facility] Comment on above: Performed By: #### L 3000.0800, L100.9950, L3890.6006, L506.0200, L3410.9992, L101.9900, L503.0106, L500.4050, L501.1400, L400.0001, L503.6030, L3200.1200, L503.6550, L501.5101, L100.0100, L504.2610, L501.5200, L3200.0500, L501.6710, L3100.1350 #### [facility] [address] [facility] [place], [address] Ferritinon 08-27-2025 Ferritin [Mass/Vol] 872 ng/mL High 22-378 [facility] Comment on above: Result Comment: AMENDED REPORT 08/27/251519 FERRITIN previously reported as: 819 H ng/mL Performed By: #### L 3100.5400, L100.0100, L500.4050, L501.9985, L500.4100, L501.4021 #### [facility] [address] [place], [place], [address] Folates,Serum (Folic Acid)on 08-27-2025 FOLATES,SERUM 15.90 ng/mL Normal 4.60-34.80 [facility] Comment on above: Order Comment: DR.MA BAILEY GETS RESULTS FOR CB[facility] CMP LIPID ANDPROLACTIN DR. SANDOVAL GETS RESULTS FOR [facility] BMP AND TROPNIN Performed By: #### L 3100.5400, L100.0100, L500.4050, L501.9985, L500.4100, L501.4021 #### [facility] [address] [place], [address] HIVon 08-27-2025 HIV Non-Reactive Normal [facility] [facility] Comment on above: Result Comment: Non- Reactive Reactive Repeatedly reactive samples must be confirmed according to CDC recommended confirmatory algorithms. The subresults for either HIVAG or AHIV can be used as an aid in the selection of the confirmation algorithm for reactive samples. Send out specimens with Reactive results to [facility] for confirmation. Order the HIV antibody detection and differentiation: #[id number] Performed By: #### L 3100.5400, L100.0100, L500.4050, L501.9985, L500.4100, L501.4021 #### [facility] [address] [place], [address] Iron+Iron Binding Capacityon 08-27-2025 Iron [Mass/Vol] 125 ug/dL Normal 50-170 [facility] Comment on above: Performed By: #### L 3100.5400, L100.0100, L500.4050, L501.9985, L500.4100, L501.4021 #### [facility] [address] [place], [address] IRON SATURATION 25.7 Normal 13-59 [facility] Comment on above: Performed By: #### L 3100.5400, L100.0100, L500.4050, L501.9985, L500.4100, L501.4021 #### [facility] [address] [place], [address] UIBC 362 ug/dL Normal 228-428 [facility] Comment on above: Performed By: #### L 3100.5400, L100.0100, L500.4050, L501.9985, L500.4100, L501.4021 #### [facility] [address] [place], [address] LDHon 08-27-2025 LDH 125 U/L Normal 84-246 [facility] Comment on above: Order Comment: 1 Performed By: #### L 3100.5400, L100.0100, L500.4050, L501.9985, L500.4100, L501.4021 #### [facility] [address] [place], [address] Magnesiumon 08-27-2025 Magnesium [Mass/Vol] 2.2 mg/dL Normal 1.5-2.2 [facility] Comment on above: Performed By: #### L 3100.5400, L100.0100, L500.4050, L501.9985, L500.4100, L501.4021 #### [facility] [address] [place], [address] Oncology Visit Reporton 08-15 Oncology Visit Report [facility] [address] [place] [address] OFFICE VISIT Date of Service: 08/27/25 1121 MR#: [id number] Acct: [id number] Name: HEIDI ANDREWS Rep #: [id number] : 1970 From: Glen Chapman MD Age/Sex: 55/F Location: [facility] Status: Signed HPI Subjective Date [...] follow up. Feels tired, sleeps a lot. [facility] Medical History Sleep apnea Wears glasses Thyroid disease Diabetes Anemia Former smoker Diabetes Anxiety Psoriasis Hypothyroid Vitamin D deficiency Hypertriglyceridemia Bipolar disorder, unspecified HTN (hypertension) Surgical History Hx of section Hx of bilateral breast reduction surgery Family History Father Hypertension Diabetes Sister Anxiety MCTD (mixed connective tissue disease) Mother Psoriatic arthritis Social History household members: spouse current occupational status: employed current occupation: [employer] Smoking Status: Former smoker alcohol intake: never [...] vitamins, R (more content not included)... Normal [facility] Retic Panelon 08-27-2025 IM RET FRACTION 12.30 Normal 3.00-15.90 [facility] Comment on above: Performed By: #### L 3000.0800, L100.9950, L3890.6006, L506.0200, L3410.9992, L101.9900, L503.0106, L500.4050, L501.1400, L400.0001, L503.6030, L3200.1200, L503.6550, L501.5101, L100.0100, L504.2610, L501.5200, L3200.0500, L501.6710, L3100.1350 #### [facility] [address] [place], [address] RET-HE 29.5 pg Low 30-35 [facility] Comment on above: Performed By: #### L 3000.0800, L100.9950, L3890.6006, L506.0200, L3410.9992, L101.9900, L503.0106, L500.4050, L501.1400, L400.0001, L503.6030, L3200.1200, L503.6550, L501.5101, L100.0100, L504.2610, L501.5200, L3200.0500, L501.6710, L3100.1350 #### [facility] [address] [place], [address] Retic Count 1.38 Normal 0.5-1.5 [facility] Comment on above: Performed By: #### L 3000.0800, L100.9950, L3890.6006, L506.0200, L3410.9992, L101.9900, L503.0106, L500.4050, L501.1400, L400.0001, L503.6030, L3200.1200, L503.6550, L501.5101, L100.0100, L504.2610, L501.5200, L3200.0500, L501.6710, L3100.1350 #### [facility] [address] [place], [address] Uric Acidon 08-27-2025 URIC 9.8 mg/dL High 2.6-6.0 [facility] Comment on above: Result Comment: The drugs N-Acetylcysteine and Metamizole may falsely depress this assay. Performed By: #### L 3100.5400, L100.0100, L500.4050, L501.9985, L500.4100, L501.4021 #### [facility] [address] [place], [address] Urinalysis, Completeon 08-27 BACTERIA 2+ /hpf Normal None Seen [facility] Comment on above: Order Comment: DR.MA BAILEY GETS RESULTS FOR CBCD CMP LIPID ANDPROLACTIN DR. SANDOVAL GETS RESULTS FOR CBCD BMP AND TROPNIN Performed By: #### L 3100.5400, L100.0100, L500.4050, L501.9985, L500.4100, L501.4021 #### [facility] [address] [place], [address] EPI,SQUAMOUS 10-25 SEEN Normal 5-10 [facility] Comment on above: Order Comment: DR.MA BAILEY GETS RESULTS FOR CBCD CMP LIPID ANDPROLACTIN DR. SANDOVAL GETS RESULTS FOR CBCD BMP AND TROPNIN Performed By: #### L 3100.5400, L100.0100, L500.4050, L501.9985, L500.4100, L501.4021 #### [facility] [address] [place], [address] WBC 5-10 SEEN Normal 0-5 [facility] Comment on above: Order Comment: DR.MA BAILEY GETS RESULTS FOR CBCD CMP LIPID ANDPROLACTIN DR. SANDOVAL GETS RESULTS FOR CBCD BMP AND TROPNIN Performed By: #### L 3100.5400, L100.0100, L500.4050, L501.9985, L500.4100, L501.4021 #### [facility] [address] [place], [address] Mucus Ql (Urine sed) 0 SEEN Normal [facility] Comment on above: Order Comment: DR.MA BAILEY GETS RESULTS FOR CBCD CMP LIPID ANDPROLACTIN DR. SANDOVAL GETS RESULTS FOR CBCD BMP AND TROPNIN Performed By: #### L 3100.5400, L100.0100, L500.4050, L501.9985, L500.4100, L501.4021 #### [facility] [address] [facility] [place], [address] RBC 0 SEEN Normal 0-5 [facility] Comment on above: Order Comment: DR.MA BAILEY GETS RESULTS FOR CBCD CMP LIPID ANDPROLACTIN DR. SANDOVAL GETS RESULTS FOR CBCD BMP AND TROPNIN Performed By: #### L 3100.5400, L100.0100, L500.4050, L501.9985, L500.4100, L501.4021 #### [facility] [address] [facility] [place], [address] Vitamin B12on 08-27-2025 Cobalamin (Vitamin B12) [Mass/Vol] 718 pg/mL Normal 180-914 [facility] Comment on above: Result Comment: AMENDED REPORT 08/27/25 1520 Vitamin B12 previously reported as: 715 pg/mL Performed By: #### L 3100.5400, L100.0100, L500.4050, L501.9985, L500.4100, L501.4021 #### [facility] [address] [facility] [place], [address] Basic Metabolic Profile (BMP )on 08-22-2025 BUN Normal 4-19 [facility] Comment on above: Order Comment: DR.MA BAILEY GETS RESULTS FOR CBCD CMP LIPID ANDPROLACTIN DR. SANDOVAL GETS RESULTS FOR CBCD BMP AND TROPNIN Result Comment: DUPL ICATE Performed By: #### L 3100.5400, L100.0100, L500.4050, L501.9985, L500.4100, L501.4021 #### [facility] [address] [place], [address] BUN/CRE Normal 10-20 [facility] Comment on above: Order Comment: DR.MA BAILEY GETS RESULTS FOR CBCD CMP LIPID ANDPROLACTIN DR. SANDOVAL GETS RESULTS FOR CBCD BMP AND TROPNIN Result Comment: DUPL ICATE Performed By: #### L 3100.5400, L100.0100, L500.4050, L501.9985, L500.4100, L501.4021 #### [facility] [address] [place], [address] Calcium Normal 7.6-11.0 [facility] Comment on above: Order Comment: DR.MA BAILEY GETS RESULTS FOR CBCD CMP LIPID ANDPROLACTIN DR. SANDOVAL GETS RESULTS FOR CBCD BMP AND TROPNIN Result Comment: DUPL ICATE Performed By: #### L 3100.5400, L100.0100, L500.4050, L501.9985, L500.4100, L501.4021 #### [facility] [address] [place], [address] CL Normal 98-108 [facility] Comment on above: Order Comment: DR.MA BAILEY GETS RESULTS FOR CBCD CMP LIPID ANDPROLACTIN DR. SANDOVAL GETS RESULTS FOR CBCD BMP AND TROPNIN Result Comment: DUPL ICATE Performed By: #### L 3100.5400, L100.0100, L500.4050, L501.9985, L500.4100, L501.4021 #### [facility] [address] [place], [address] CO2 Normal 21.0-32.0 [facility] Comment on above: Order Comment: DR.MA BAILEY GETS RESULTS FOR CBCD CMP LIPID ANDPROLACTIN DR. SANDOVAL GETS RESULTS FOR CBCD BMP AND TROPNIN Result Comment: DUPL ICATE Performed By: #### L 3100.5400, L100.0100, L500.4050, L501.9985, L500.4100, L501.4021 #### [facility] [address] [place], [address] CREAT,SERUM Normal 0.70-1.20 [facility] Comment on above: Order Comment: DR.MA BAILEY GETS RESULTS FOR CBCD CMP LIPID ANDPROLACTIN DR. SANDOVAL GETS RESULTS FOR CBCD BMP AND TROPNIN Result Comment: DUPL ICATE Performed By: #### L 3100.5400, L100.0100, L500.4050, L501.9985, L500.4100, L501.4021 #### [facility] [address] [place], [address] eGFR Normal >60 [facility] Comment on above: Order Comment: DR.MA BAILEY GETS RESULTS FOR CBCD CMP LIPID ANDPROLACTIN DR. SANDOVAL GETS RESULTS FOR CBCD BMP AND TROPNIN Result Comment: DUPL ICATE Performed By: #### L 3100.5400, L100.0100, L500.4050, L501.9985, L500.4100, L501.4021 #### [facility] [address] [place], [address] GAP Normal 5-15 [facility] Comment on above: Order Comment: DR.MA BAILEY GETS RESULTS FOR CBCD CMP LIPID ANDPROLACTIN DR. SANDOVAL GETS RESULTS FOR CBCD BMP AND TROPNIN Result Comment: DUPL ICATE Performed By: #### L 3100.5400, L100.0100, L500.4050, L501.9985, L500.4100, L501.4021 #### [facility] [address] [place], [address] GLU Normal 70-99 [facility] Comment on above: Order Comment: DR.MA BAILEY GETS RESULTS FOR CBCD CMP LIPID ANDPROLACTIN DR. SANDOVAL GETS RESULTS FOR CBCD BMP AND TROPNIN Result Comment: DUPL ICATE Performed By: #### L 3100.5400, L100.0100, L500.4050, L501.9985, L500.4100, L501.4021 #### [facility] [address] [place], [address] Potassium Normal 3.3-5.1 [facility] Comment on above: Order Comment: DR.MA BAILEY GETS RESULTS FOR CBCD CMP LIPID ANDPROLACTIN DR. SANDOVAL GETS RESULTS FOR CBCD BMP AND TROPNIN Result Comment: DUPL ICATE Performed By: #### L 3100.5400, L100.0100, L500.4050, L501.9985, L500.4100, L501.4021 #### [facility] [address] [place], [address] Basic Metabolic Profile (BMP) Normal 133-145 [facility] Comment on above: Order Comment: DR.MA BAILEY GETS RESULTS FOR CBCD CMP LIPID ANDPROLACTIN DR. SANDOVAL GETS RESULTS FOR CBCD BMP AND TROPNIN Result Comment: DUPL ICATE Performed By: #### L 3100.5400, L100.0100, L500.4050, L501.9985, L500.4100, L501.4021 #### [facility] [address] [place], [address] CBC W/Diff, Automatedon 10-0 Anisocytosis Ql (Bld) 1+ Normal [facility] Comment on above: Performed By: #### L 3100.5400, L100.0100, L500.4050, L501.9985, L500.4100, L501.4021 #### [facility] [address] [place], [address] CRPon 08-22-2025 C-REACTIVE PROT 129.00 mg/L High 0.0-3.0 [facility] Comment on above: Order Comment: CMP A ND CBCD GO TO DR. SANDOVAL ALL OTHER LABS GOT TO Performed By: #### L 3100.5400, L100.0100, L500.4050, L501.9985, L500.4100, L501.4021 #### [facility] [address] [place], [address] Comprehensive Metabolic Prof ilon 08-22-2025 Albumin [Mass/Vol] 4.1 g/dL Normal 3.5-5.0 [facility] Comment on above: Order Comment: CMP A ND CBCD GO TO DR. SANDOVAL ALL OTHER LABS GOT TO Performed By: #### L 3100.5400, L100.0100, L500.4050, L501.9985, L500.4100, L501.4021 #### [facility] [address] [facility] [place], [address] Albumin/Globulin [Mass ratio] 1.0 {ratio} Normal 0.9-2.4 [facility] Comment on above: Order Comment: CMP A ND CBCD GO TO DR. SANDOVAL ALL OTHER LABS GOT TO Performed By: #### L 3100.5400, L100.0100, L500.4050, L501.9985, L500.4100, L501.4021 #### [facility] [address] [place], [address] ALK PHOS 243 U/L High 35-104 [facility] Comment on above: Order Comment: CMP A ND CBCD GO TO DR. SANDOVAL ALL OTHER LABS GOT TO Performed By: #### L 3100.5400, L100.0100, L500.4050, L501.9985, L500.4100, L501.4021 #### [facility] [address] [place], [address] ALT [Catalytic activity/Vol] 12 U/L Normal <=34 [facility] Comment on above: Order Comment: CMP A ND CBCD GO TO DR. SANDOVAL ALL OTHER LABS GOT TO Performed By: #### L 3100.5400, L100.0100, L500.4050, L501.9985, L500.4100, L501.4021 #### [facility] [address] [place], [address] AST [Catalytic activity/Vol] 27 U/L Normal <=31 [facility] Comment on above: Order Comment: CMP A ND CBCD GO TO DR. SANDOVAL ALL OTHER LABS GOT TO Performed By: #### L 3100.5400, L100.0100, L500.4050, L501.9985, L500.4100, L501.4021 #### [facility] [address] [place], [address] Bilirubin [Mass/Vol] 0.79 mg/dL Normal 0.00-1.30 [facility] Comment on above: Order Comment: CMP A ND CBCD GO TO DR. SANDOVAL ALL OTHER LABS GOT TO Performed By: #### L 3100.5400, L100.0100, L500.4050, L501.9985, L500.4100, L501.4021 #### [facility] [address] [place], [address] BUN/CRE 16.0 RATIO Normal 10-20 [facility] Comment on above: Order Comment: CMP A ND CBCD GO TO DR. SANDOVAL ALL OTHER LABS GOT TO Performed By: #### L 3100.5400, L100.0100, L500.4050, L501.9985, L500.4100, L501.4021 #### [facility] [address] [place], [address] Calcium [Mass/Vol] 10.3 mg/dL Normal 7.6-11.0 [facility] Comment on above: Order Comment: CMP A ND CBCD GO TO DR. SANDOVAL ALL OTHER LABS GOT TO Performed By: #### L 3100.5400, L100.0100, L500.4050, L501.9985, L500.4100, L501.4021 #### [facility] [address] [place], [address] Chloride [Moles/Vol] 89 mmol/L Low 98-108 [facility] Comment on above: Order Comment: CMP A ND CBCD GO TO DR. SANDOVAL ALL OTHER LABS GOT TO Performed By: #### L 3100.5400, L100.0100, L500.4050, L501.9985, L500.4100, L501.4021 #### [facility] [address] [place], [address] CO2 [Moles/Vol] 23.7 mmol/L Normal 21.0-32.0 [facility] Comment on above: Order Comment: CMP A ND CBCD GO TO DR. SANDOVAL ALL OTHER LABS GOT TO Performed By: #### L 3100.5400, L100.0100, L500.4050, L501.9985, L500.4100, L501.4021 #### [facility] [address] [place], [address] Creatinine [Mass/Vol] 1.39 mg/dL High 0.70-1.20 [facility] Comment on above: Order Comment: CMP A ND CBCD GO TO DR. SANDOVAL ALL OTHER LABS GOT TO Performed By: #### L 3100.5400, L100.0100, L500.4050, L501.9985, L500.4100, L501.4021 #### [facility] [address] [place], [address] GAP 20 High 5-15 [facility] Comment on above: Order Comment: CMP A ND CBCD GO TO DR. SANDOVAL ALL OTHER LABS GOT TO Performed By: #### L 3100.5400, L100.0100, L500.4050, L501.9985, L500.4100, L501.4021 #### [facility] [address] [place], [place], [address] GFR/1.73 sq M.predicted among non-blacks MDRD (S/P/Bld) [Vol rate/Area] 45 mL/min/{1.73_m2} Low >60 [facility] Comment on above: Order Comment: CMP A ND CBCD GO TO DR. SANDOVAL ALL OTHER LABS GOT TO Result Comment: mL/m in/1.73m2 CKD-EPI Creatinine Equation (2020) Performed By: #### L 3100.5400, L100.0100, L500.4050, L501.9985, L500.4100, L501.4021 #### [facility] [address] [place], [place], [address] Globulin (S) [Mass/Vol] 4.1 g/dL Normal 2.2-4.2 [facility] Comment on above: Order Comment: CMP A ND CBCD GO TO DR. SANDOVAL ALL OTHER LABS GOT TO Performed By: #### L 3100.5400, L100.0100, L500.4050, L501.9985, L500.4100, L501.4021 #### [facility] [address] [place], [address] Glucose [Mass/Vol] 193 mg/dL High 70-99 [facility] Comment on above: Order Comment: CMP A ND CBCD GO TO DR. SANDOVAL ALL OTHER LABS GOT TO Performed By: #### L 3100.5400, L100.0100, L500.4050, L501.9985, L500.4100, L501.4021 #### [facility] [address] [place], [address] Potassium [Moles/Vol] 3.2 mmol/L Low 3.3-5.1 [facility] Comment on above: Order Comment: CMP A ND CBCD GO TO DR. SANDOVAL ALL OTHER LABS GOT TO Performed By: #### L 3100.5400, L100.0100, L500.4050, L501.9985, L500.4100, L501.4021 #### [facility] [address] [place], [address] Sodium [Moles/Vol] 132 mmol/L Low 133-145 [facility] Comment on above: Order Comment: CMP A ND CBCD GO TO DR. SANDOVAL ALL OTHER LABS GOT TO Performed By: #### L 3100.5400, L100.0100, L500.4050, L501.9985, L500.4100, L501.4021 #### [facility] [address] [place], [address] T PROT 8.2 g/dL Normal 5.9-8.4 [facility] Comment on above: Order Comment: CMP A ND CBCD GO TO DR. SANDOVAL ALL OTHER LABS GOT TO Performed By: #### L 3100.5400, L100.0100, L500.4050, L501.9985, L500.4100, L501.4021 #### [facility] [address] [place], [address] Urea nitrogen [Mass/Vol] 22 mg/dL High 4-19 [facility] Comment on above: Order Comment: CMP A ND CBCD GO TO DR. SANDOVAL ALL OTHER LABS GOT TO Performed By: #### L 3100.5400, L100.0100, L500.4050, L501.9985, L500.4100, L501.4021 #### [facility] [address] [place], [address] Erythrocyte Sed Rateon 08-22 SED RATE 74 mm/hr High 0-30 [facility] Comment on above: Performed By: #### L 3100.5400, L100.0100, L500.4050, L501.9985, L500.4100, L501.4021 #### [facility] [address] [place], [address] Ferritinon 08-22-2025 Ferritin [Mass/Vol] 837 ng/mL High 22-378 [facility] Comment on above: Order Comment: CMP A ND CBCD GO TO DR. SANDOVAL ALL OTHER LABS GOT TO Performed By: #### L 3100.5400, L100.0100, L500.4050, L501.9985, L500.4100, L501.4021 #### [facility] [address] [place], [address] Iron+Iron Binding Capacityon 08-22-2025 Iron [Mass/Vol] 55 ug/dL Normal 50-170 [facility] Comment on above: Order Comment: CMP A ND CBCD GO TO DR. SANDOVAL ALL OTHER LABS GOT TO Performed By: #### L 3100.5400, L100.0100, L500.4050, L501.9985, L500.4100, L501.4021 #### [facility] [address] [place], [address] IRON SATURATION 14.2 Normal 13-59 [facility] Comment on above: Order Comment: CMP A ND CBCD GO TO DR. SANDOVAL ALL OTHER LABS GOT TO Performed By: #### L 3100.5400, L100.0100, L500.4050, L501.9985, L500.4100, L501.4021 #### [facility] [address] [place], [address] TIBC 386 ug/dL Normal 250-450 [facility] Comment on above: Order Comment: CMP A ND CBCD GO TO DR. SANDOVAL ALL OTHER LABS GOT TO Performed By: #### L 3100.5400, L100.0100, L500.4050, L501.9985, L500.4100, L501.4021 #### [facility] [address] [place], [address] UIBC 331 ug/dL Normal 228-428 [facility] Comment on above: Order Comment: CMP A ND CBCD GO TO DR. SANDOVAL ALL OTHER LABS GOT TO Performed By: #### L 3100.5400, L100.0100, L500.4050, L501.9985, L500.4100, L501.4021 #### [facility] [address] [place], [address] LDHon 08-22-2025 LDH 132 U/L Normal 84-246 [facility] Comment on above: Order Comment: CMP A ND CBCD GO TO DR. SANDOVAL ALL OTHER LABS GOT TO Performed By: #### L 3100.5400, L100.0100, L500.4050, L501.9985, L500.4100, L501.4021 #### [facility] [address] [place], [address] Magnesiumon 08-22-2025 Magnesium [Mass/Vol] 2.3 mg/dL High 1.5-2.2 [facility] Comment on above: Order Comment: CMP A ND CBCD GO TO DR. SANDOVAL ALL OTHER LABS GOT TO Performed By: #### L 3100.5400, L100.0100, L500.4050, L501.9985, L500.4100, L501.4021 #### [facility] [address] [place], [address] Phosphoruson 08-22-2025 Phosphate [Mass/Vol] 2.8 mg/dL Normal 2.7-4.5 [facility] Comment on above: Order Comment: CMP A ND CBCD GO TO DR. SANDOVAL ALL OTHER LABS GOT TO Performed By: #### L 3100.5400, L100.0100, L500.4050, L501.9985, L500.4100, L501.4021 #### [facility] [address] [place], [address] Vitamin B12on 08-22-2025 Cobalamin (Vitamin B12) [Mass/Vol] 747 pg/mL Normal 180-914 [facility] Comment on above: Order Comment: CMP A ND CBCD GO TO DR. SANDOVAL ALL OTHER LABS GOT TO Performed By: #### L 3100.5400, L100.0100, L500.4050, L501.9985, L500.4100, L501.4021 #### [facility] [address] [place], [address] CBC W/Diff, Automatedon 10 Absolute Lymph 0.97 X10 3/uL Normal 0.83-4.51 [facility] Comment on above: Performed By: #### L 3100.5400, L100.0100, L500.4050, L501.9985, L500.4100, L501.4021 #### [facility] [address] [place], [address] Absolute Neut 8.7 X10 3/uL High 2.0-7.7 [facility] Comment on above: Performed By: #### L 3100.5400, L100.0100, L500.4050, L501.9985, L500.4100, L501.4021 #### [facility] [address] [place], [address] Basophils/100 WBC (Bld) 0.5 % Normal 0-1 [facility] Comment on above: Performed By: #### L 3100.5400, L100.0100, L500.4050, L501.9985, L500.4100, L501.4021 #### [facility] [address] [place], [address] Eosinophils/100 WBC (Bld) 0.3 % Normal 0-5 [facility] [facility] Comment on above: Performed By: #### L 3100.5400, L100.0100, L500.4050, L501.9985, L500.4100, L501.4021 #### [facility] [address] [place], [address] Erythrocyte distribution width (RBC) [Ratio] 13.3 % Normal 11.6-14.6 [facility] Comment on above: Performed By: #### L 3100.5400, L100.0100, L500.4050, L501.9985, L500.4100, L501.4021 #### [facility] [address] [place], [address] Hematocrit (Bld) [Volume fraction] 29.3 % Low 37-47 [facility] Comment on above: Performed By: #### L 3100.5400, L100.0100, L500.4050, L501.9985, L500.4100, L501.4021 #### [facility] [address] [place], [address] Hemoglobin (Bld) [Mass/Vol] 9.5 g/dL Low 12.0-15.0 [facility] Comment on above: Performed By: #### L 3100.5400, L100.0100, L500.4050, L501.9985, L500.4100, L501.4021 #### [facility] [address] [place], [address] IG% 3.000 High 0.0-0.9 [facility] Comment on above: Result Comment: IG% - Immature Granulocytes (promyelocytes, myelocytes and metamyelocytes) > 1% indicates that a LEFT SHIFT is Present. Performed By: #### L 3100.5400, L100.0100, L500.4050, L501.9985, L500.4100, L501.4021 #### [facility] [address] [place], [address] Lymphocytes/100 WBC (Bld) 9.1 % Low 19-41 [facility] Comment on above: Performed By: #### L 3100.5400, L100.0100, L500.4050, L501.9985, L500.4100, L501.4021 #### [facility] [address] [place], [address] MCH (RBC) [Entitic mass] 26.5 pg Low 27.0-32.0 [facility] Comment on above: Performed By: #### L 3100.5400, L100.0100, L500.4050, L501.9985, L500.4100, L501.4021 #### [facility] [address] [place], [address] MCHC (RBC) [Mass/Vol] 32.4 g/dL Normal 32-36 [facility] Comment on above: Performed By: #### L 3100.5400, L100.0100, L500.4050, L501.9985, L500.4100, L501.4021 #### [facility] [address] [place], [address] MCV (RBC) [Entitic vol] 81.6 fL Normal 81-99 [facility] Comment on above: Performed By: #### L 3100.5400, L100.0100, L500.4050, L501.9985, L500.4100, L501.4021 #### [facility] [address] [place], [address] Monocytes/100 WBC (Bld) 5.2 % Normal 0-10 [facility] Comment on above: Performed By: #### L 3100.5400, L100.0100, L500.4050, L501.9985, L500.4100, L501.4021 #### [facility] [address] [place], [address] Neutrophils/100 WBC (Bld) 81.9 % High 47-70 [facility] Comment on above: Performed By: #### L 3100.5400, L100.0100, L500.4050, L501.9985, L500.4100, L501.4021 #### [facility] [address] [place], [address] Nucleated RBC (Bld) [#/Vol] 0 10*3/uL Normal 0-5 [facility] Comment on above: Performed By: #### L 3100.5400, L100.0100, L500.4050, L501.9985, L500.4100, L501.4021 #### [facility] [address] [place], [address] Platelet mean volume (Bld) [Entitic vol] 10.0 fL Normal 6.2-12.0 [facility] Comment on above: Performed By: #### L 3100.5400, L100.0100, L500.4050, L501.9985, L500.4100, L501.4021 #### [facility] [address] [place], [address] Platelets (Bld) [#/Vol] 370 10*3/uL Normal 150-450 [facility] Comment on above: Performed By: #### L 3100.5400, L100.0100, L500.4050, L501.9985, L500.4100, L501.4021 #### [facility] [address] [place], [place], [id number] [phone] RBC (Bld) [#/Vol] 3.59 10*6/uL Low 4.2-5.4 [facility] Comment on above: Performed By: #### L 3100.5400, L100.0100, L500.4050, L501.9985, L500.4100, L501.4021 #### [facility] [address] [place], [address] RDW SD 39.8 fl Normal 35.1-43.9 [facility] Comment on above: Performed By: #### L 3100.5400, L100.0100, L500.4050, L501.9985, L500.4100, L501.4021 #### [facility] [address] [place], [address] WBC (Bld) [#/Vol] 10.6 10*3/uL Normal 4.4-11.0 [facility] Comment on above: Performed By: #### L 3100.5400, L100.0100, L500.4050, L501.9985, L500.4100, L501.4021 #### [facility] [address] [place], [place], [id number] [phone] Comprehensive Metabolic [facility] ilon 08-17-2025 Albumin [Mass/Vol] 4.0 g/dL Normal 3.5-5.0 [facility] Comment on above: Performed By: #### L 3100.5400, L100.0100, L500.4050, L501.9985, L500.4100, L501.4021 #### [facility] [address] [place], [address] Albumin/Globulin [Mass ratio] 1.1 {ratio} Normal 0.9-2.4 [facility] Comment on above: Performed By: #### L 3100.5400, L100.0100, L500.4050, L501.9985, L500.4100, L501.4021 #### [facility] [address] [place], [address] ALK PHOS 138 U/L High 35-104 [facility] Comment on above: Performed By: #### L 3100.5400, L100.0100, L500.4050, L501.9985, L500.4100, L501.4021 #### [facility] [address] [place], [address] ALT [Catalytic activity/Vol] 5 U/L Normal <=34 [facility] Comment on above: Performed By: #### L 3100.5400, L100.0100, L500.4050, L501.9985, L500.4100, L501.4021 #### [facility] [address] [place], [address] AST [Catalytic activity/Vol] 14 U/L Normal <=31 [facility] Comment on above: Performed By: #### L 3100.5400, L100.0100, L500.4050, L501.9985, L500.4100, L501.4021 #### [facility] [address] [place], [address] Bilirubin [Mass/Vol] 0.42 mg/dL Normal 0.00-1.30 [facility] Comment on above: Performed By: #### L 3100.5400, L100.0100, L500.4050, L501.9985, L500.4100, L501.4021 #### [facility] [address] [place], [address] BUN/CRE 14.1 RATIO Normal 10-20 [facility] Comment on above: Performed By: #### L 3100.5400, L100.0100, L500.4050, L501.9985, L500.4100, L501.4021 #### [facility] [address] [place], [address] Calcium [Mass/Vol] 9.8 mg/dL Normal 7.6-11.0 [facility] Comment on above: Performed By: #### L 3100.5400, L100.0100, L500.4050, L501.9985, L500.4100, L501.4021 #### [facility] [address] [place], [address] Chloride [Moles/Vol] 85 mmol/L Low 98-108 [facility] Comment on above: Performed By: #### L 3100.5400, L100.0100, L500.4050, L501.9985, L500.4100, L501.4021 #### [facility] [address] [place], [address] CO2 [Moles/Vol] 23.4 mmol/L Normal 21.0-32.0 [facility] Comment on above: Performed By: #### L 3100.5400, L100.0100, L500.4050, L501.9985, L500.4100, L501.4021 #### [facility] [address] [place] [place], [address] Creatinine [Mass/Vol] 1.80 mg/dL High 0.70-1.20 [facility] Comment on above: Performed By: #### L 3100.5400, L100.0100, L500.4050, L501.9985, L500.4100, L501.4021 #### [facility] [address] [place], [address] GAP 22 High 5-15 [facility] Comment on above: Performed By: #### L 3100.5400, L100.0100, L500.4050, L501.9985, L500.4100, L501.4021 #### [facility] [address] [place], [address] GFR/1.73 sq M.predicted among non-blacks MDRD (S/P/Bld) [Vol rate/Area] 33 mL/min/{1.73_m2} Low >60 [facility] Comment on above: Result Comment: mL/m in/1.73m2 CKD-EPI Creatinine Equation (2020) Performed By: #### L 3100.5400, L100.0100, L500.4050, L501.9985, L500.4100, L501.4021 #### [facility] [address] [place], [address] Globulin (S) [Mass/Vol] 3.8 g/dL Normal 2.2-4.2 [facility] Comment on above: Performed By: #### L 3100.5400, L100.0100, L500.4050, L501.9985, L500.4100, L501.4021 #### [facility] [address] [place], [address] Glucose [Mass/Vol] 168 mg/dL High 70-99 [facility] Comment on above: Performed By: #### L 3100.5400, L100.0100, L500.4050, L501.9985, L500.4100, L501.4021 #### [facility] [address] [place], [address] Potassium [Moles/Vol] 3.2 mmol/L Low 3.3-5.1 [facility] Comment on above: Performed By: #### L 3100.5400, L100.0100, L500.4050, L501.9985, L500.4100, L501.4021 #### [facility] [address] [place], [address] Sodium [Moles/Vol] 131 mmol/L Low 133-145 [facility] Comment on above: Performed By: #### L 3100.5400, L100.0100, L500.4050, L501.9985, L500.4100, L501.4021 #### [facility] [address] [place], [address] T PROT 7.8 g/dL Normal 5.9-8.4 [facility] Comment on above: Performed By: #### L 3100.5400, L100.0100, L500.4050, L501.9985, L500.4100, L501.4021 #### [facility] [address] [place], [address] Urea nitrogen [Mass/Vol] 25 mg/dL High 4-19 [facility] Comment on above: Performed By: #### L 3100.5400, L100.0100, L500.4050, L501.9985, L500.4100, L501.4021 #### [facility] [address] [place], [address] Ferritinon 08-17-2025 Ferritin [Mass/Vol] 1236 ng/mL High 22-378 [facility] Comment on above: Performed By: #### L 3100.5400, L100.0100, L500.4050, L501.9985, L500.4100, L501.4021 #### [facility] [address] [place], [address] Free T3on 08-17-2025 Free T3 [Mass/Vol] 1.8 pg/mL Low 2.18-3.98 [facility] Comment on above: Performed By: #### L 3100.5400, L100.0100, L500.4050, L501.9985, L500.4100, L501.4021 #### [facility] [address] [place], [address] Iron+Iron Binding Capacityon 08-17-2025 Iron [Mass/Vol] 52 ug/dL Normal 50-170 [facility] Comment on above: Performed By: #### L 3100.5400, L100.0100, L500.4050, L501.9985, L500.4100, L501.4021 #### [facility] [address] [place], [address] IRON SATURATION 15.0 Normal 13-59 [facility] Comment on above: Performed By: #### L 3100.5400, L100.0100, L500.4050, L501.9985, L500.4100, L501.4021 #### [facility] [address] [place], [address] TIBC 345 ug/dL Normal 250-450 [facility] Comment on above: Performed By: #### L 3100.5400, L100.0100, L500.4050, L501.9985, L500.4100, L501.4021 #### [facility] [address] [place], [address] UIBC 293 ug/dL Normal 228-428 [facility] Comment on above: Performed By: #### L 3100.5400, L100.0100, L500.4050, L501.9985, L500.4100, L501.4021 #### [facility] [address] [place], [address] T4 Free Directon 08-17-2025 T4 FREE DIRECT 1.50 ng/dL High 0.76-1.46 [facility] Comment on above: Performed By: #### L 3100.5400, L100.0100, L500.4050, L501.9985, L500.4100, L501.4021 #### [facility] [address] [place], [address] Thyroid Stim Hormone (TSH)on 08-17-2025 TSH 3.370 uIU/mL Normal 0.300-4.200 [facility] Comment on above: Performed By: #### L 3100.5400, L100.0100, L500.4050, L501.9985, L500.4100, L501.4021 #### [facility] [address] [place], [address] Fluoroscopy 1 Hr or Lesson 0 08-13-2025 Fluoroscopy 1 Hr or Less [facility] Services [address] [place] [address] Fluoroscopy 1 Hr or Less MR#: [id number] Acct: [id number] Name: HEIDI ANDREWS Rep #: [id number] : 1970 F 55 From: Imani Mcfarland MD PCP: Dr. Red Sandoval MD Status: REG CLI Study: Fluoroscopy 1 Hr or Less Date of Exam: 5 Exam# [id number] Ordering Dr: Nikolai Kmi MD PROCEDURE: FLUOROSCOPY 1 HR OR LESS [...] excursion suggestive of mild paralysis. Reading Location: [place] [address] CC: Dr. Red Sandoval MD; Dr. Nikolai Kim MD Investigative Shopper: Signed Normal [facility] Absolute lymphocyte countOrd ered By: Red Sandoval on 06-27-2025 Lymphocytes Auto (Unsp spec) [#/Vol] 1.04 10*3/uL 0.83-4.51 [facility] Absolute neutrophil countOrd ered By: Red Sandoval on 06-27-2025 Neutrophils (Bld) [#/Vol] 4.1 10*3/uL 2.0-7.7 [facility] Anion gap in Serum or Plasma Ordered By: Red Sandoval on 06-27-2025 Anion gap [Moles/Vol] 17 mmol/L High 5-15 [facility] Automated lymphocyte count a s percentage of total leukocytesOrdered By: Red Sandoval on 06-27-2025 Lymphocytes/100 WBC Auto (Unsp spec) 18.2 % Low 19-41 [facility] BUN/creatinine ratioOrdered By: Red Sandoval on 06-27-2025 Urea nitrogen/Creatinine [Mass ratio] 10.8 mg/mg 10- [facility] Basic Metabolic Profile (BMP )on 06-27-2025 BUN/CRE 10.8 RATIO Normal - [facility] Comment on above: Performed By: #### L 3100.5400, L100.0100, L500.4050, L501.9985, L500.4100, L501.4021 #### [facility] [address] [place], [address] Calcium [Mass/Vol] 8.7 mg/dL Normal 7.6-11.0 [facility] Comment on above: Performed By: #### L 3100.5400, L100.0100, L500.4050, L501.9985, L500.4100, L501.4021 #### [facility] [address] [place], [address] Chloride [Moles/Vol] 98 mmol/L Normal 98-108 [facility] Comment on above: Performed By: #### L 3100.5400, L100.0100, L500.4050, L501.9985, L500.4100, L501.4021 #### [facility] [address] [place], [address] CO2 [Moles/Vol] 24.2 mmol/L Normal 21.0-32.0 [facility] Comment on above: Performed By: #### L 3100.5400, L100.0100, L500.4050, L501.9985, L500.4100, L501.4021 #### [facility] [address] [place], [address] Creatinine [Mass/Vol] 0.93 mg/dL Normal 0.70-1.20 [facility] Comment on above: Performed By: #### L 3100.5400, L100.0100, L500.4050, L501.9985, L500.4100, L501.4021 #### [facility] [address] [place], [address] GAP 17 High 5-15 [facility] Comment on above: Performed By: #### L 3100.5400, L100.0100, L500.4050, L501.9985, L500.4100, L501.4021 #### [facility] [address] [place], [address] GFR/1.73 sq M.predicted among non-blacks MDRD (S/P/Bld) [Vol rate/Area] 73 mL/min/{1.73_m2} Normal >60 [facility] Comment on above: Result Comment: mL/m in/1.73m2 CKD-EPI Creatinine Equation (2020) Performed By: #### L 3100.5400, L100.0100, L500.4050, L501.9985, L500.4100, L501.4021 #### [facility] [address] [place], [address] Glucose [Mass/Vol] 198 mg/dL High 70-99 [facility] Comment on above: Performed By: #### L 3100.5400, L100.0100, L500.4050, L501.9985, L500.4100, L501.4021 #### [facility] [address] [place], [address] Potassium [Moles/Vol] 3.7 mmol/L Normal 3.3-5.1 [facility] Comment on above: Performed By: #### L 3100.5400, L100.0100, L500.4050, L501.9985, L500.4100, L501.4021 #### [facility] [address] [place], [address] Sodium [Moles/Vol] 139 mmol/L Normal 133-145 [facility] Comment on above: Performed By: #### L 3100.5400, L100.0100, L500.4050, L501.9985, L500.4100, L501.4021 #### [facility] [address] [place], [address] Urea nitrogen [Mass/Vol] 10 mg/dL Normal 4-19 [facility] Comment on above: Performed By: #### L 3100.5400, L100.0100, L500.4050, L501.9985, L500.4100, L501.4021 #### [facility] [address] [place], [address] Basophil percentageOrdered B y: Red Sandoval on 06-27-2025 Basophils/100 WBC (Bld) 0.7 % 0-1 [facility] CBC W/Diff, Automatedon 06-15 Absolute Lymph 1.04 X10 3/uL Normal 0.83-4.51 [facility] Comment on above: Performed By: #### L 3100.5400, L100.0100, L500.4050, L501.9985, L500.4100, L501.4021 #### [facility] [address] [place], [address] Absolute Neut 4.1 X10 3/uL Normal 2.0-7.7 [facility] Comment on above: Performed By: #### L 3100.5400, L100.0100, L500.4050, L501.9985, L500.4100, L501.4021 #### [facility] [address] [place], [address] Basophils/100 WBC (Bld) 0.7 % Normal 0-1 [facility] Comment on above: Performed By: #### L 3100.5400, L100.0100, L500.4050, L501.9985, L500.4100, L501.4021 #### [facility] [address] [place], [address] Eosinophils/100 WBC (Bld) 3.8 % Normal 0-5 [facility] Comment on above: Performed By: #### L 3100.5400, L100.0100, L500.4050, L501.9985, L500.4100, L501.4021 #### [facility] [address] [place], [address] Erythrocyte distribution width (RBC) [Ratio] 13.9 % Normal 11.6-14.6 [facility] Comment on above: Performed By: #### L 3100.5400, L100.0100, L500.4050, L501.9985, L500.4100, L501.4021 #### [facility] [address] [place], [address] Hematocrit (Bld) [Volume fraction] 33.6 % Low 37-47 [facility] Comment on above: Performed By: #### L 3100.5400, L100.0100, L500.4050, L501.9985, L500.4100, L501.4021 #### [facility] [address] [place], [address] Hemoglobin (Bld) [Mass/Vol] 10.7 g/dL Low 12.0-15.0 [facility] Comment on above: Performed By: #### L 3100.5400, L100.0100, L500.4050, L501.9985, L500.4100, L501.4021 #### [facility] [address] [place], [address] IG% 1.000 High 0.0-0.9 [facility] Comment on above: Result Comment: IG% - Immature Granulocytes (promyelocytes, myelocytes and metamyelocytes) > 1% indicates that a LEFT SHIFT is Present. Performed By: #### L 3100.5400, L100.0100, L500.4050, L501.9985, L500.4100, L501.4021 #### [facility] [address] [place], [address] Lymphocytes/100 WBC (Bld) 18.2 % Low 19-41 [facility] Comment on above: Performed By: #### L 3100.5400, L100.0100, L500.4050, L501.9985, L500.4100, L501.4021 #### [facility] [address] [place], [address] MCH (RBC) [Entitic mass] 27.9 pg Normal 27.0-32.0 [facility] Comment on above: Performed By: #### L 3100.5400, L100.0100, L500.4050, L501.9985, L500.4100, L501.4021 #### [facility] [address] [place], [address] MCHC (RBC) [Mass/Vol] 31.8 g/dL Low 32-36 [facility] Comment on above: Performed By: #### L 3100.5400, L100.0100, L500.4050, L501.9985, L500.4100, L501.4021 #### [facility] [address] [place], [address] MCV (RBC) [Entitic vol] 87.5 fL Normal 81-99 [facility] Comment on above: Performed By: #### L 3100.5400, L100.0100, L500.4050, L501.9985, L500.4100, L501.4021 #### [facility] [address] [place], [address] Monocytes/100 WBC (Bld) 5.2 % Normal 0-10 [facility] Comment on above: Performed By: #### L 3100.5400, L100.0100, L500.4050, L501.9985, L500.4100, L501.4021 #### [facility] [address] [place], [address] Neutrophils/100 WBC (Bld) 71.1 % High 47-70 [facility] Comment on above: Performed By: #### L 3100.5400, L100.0100, L500.4050, L501.9985, L500.4100, L501.4021 #### [facility] [address] [place], [address] Nucleated RBC (Bld) [#/Vol] 0 10*3/uL Normal 0-5 [facility] Comment on above: Performed By: #### L 3100.5400, L100.0100, L500.4050, L501.9985, L500.4100, L501.4021 #### [facility] [address] [place], [address] Platelet mean volume (Bld) [Entitic vol] 9.9 fL Normal 6.2-12.0 [facility] Comment on above: Performed By: #### L 3100.5400, L100.0100, L500.4050, L501.9985, L500.4100, L501.4021 #### [facility] [address] [place], [address] Platelets (Bld) [#/Vol] 244 10*3/uL Normal 150-450 [facility] Comment on above: Performed By: #### L 3100.5400, L100.0100, L500.4050, L501.9985, L500.4100, L501.4021 #### [facility] [address] [place], [address] RBC (Bld) [#/Vol] 3.84 10*6/uL Low 4.2-5.4 [facility] Comment on above: Performed By: #### L 3100.5400, L100.0100, L500.4050, L501.9985, L500.4100, L501.4021 #### [facility] [address] [place], [address] RDW SD 43.7 fl Normal 35.1-43.9 [facility] Comment on above: Performed By: #### L 3100.5400, L100.0100, L500.4050, L501.9985, L500.4100, L501.4021 #### [facility] [address] [place], [address] WBC (Bld) [#/Vol] 5.7 10*3/uL Normal 4.4-11.0 [facility] Comment on above: Performed By: #### L 3100.5400, L100.0100, L500.4050, L501.9985, L500.4100, L501.4021 #### [facility] [address] [place], [address] Calculated very low density lipoprotein (VLDL) cholesterol measurementOrdered By: Red Sandoval on 06-27-2025 Calculated very low density lipoprotein (VLDL) cholesterol measurement 45 mg/dL High 5-40 [facility] Carbon dioxide, total [Moles /volume] in Central venous bloodOrdered By: Red Sandoval on 06-27-2025 CO2 [Moles/Vol] 24.2 mmol/L 21.0-32.0 [facility] Chloride assayOrdered By: Yousuf Sandoval on 06-27-2025 Chloride [Moles/Vol] 98 mmol/L 98-108 [facility] Eosinophil percentageOrdered By: Red Sandoval on 06-27-2025 Eosinophils/100 WBC (Bld) 3.8 % 0-5 [facility] Erythrocyte distribution wid th ratioOrdered By: Red Sandoval on 06-27-2025 Erythrocyte distribution width (RBC) [Ratio] 13.9 % 11.6-14.6 [facility] Erythrocyte distribution wid th standard deviationOrdered By: Red Sandoval on 06-27-2025 Erythrocyte distribution width (RBC) [Ratio] 43.7 fl 35.1-43.9 [facility] Ferritinon 06-27-2025 Ferritin [Mass/Vol] 108 ng/mL Normal 22-378 [facility] Comment on above: Performed By: #### L 3100.5400, L100.0100, L500.4050, L501.9985, L500.4100, L501.4021 #### [facility] Laboratory [facility] [place] [address], [address] Glomerular filtration rate ( GFR) estimation/1.73 sq m using serum, plasma, or whole bOrdered By: Red Sandoval on 06-27-2025 GFR/1.73 sq M.predicted among non-blacks MDRD (S/P/Bld) [Vol rate/Area] 73 mL/min/{1.73_m2} >60 [facility] Comment on above: mL/min/1.73m2 CKD-EP I Creatinine Equation (2020) Hematocrit Auto (Bld) [Volum e fraction]Ordered By: Red Sandoval on 06-27-2025 Hematocrit (Bld) [Volume fraction] 33.6 % Low 37-47 [facility] Hemoglobin measurementOrdere d By: Red Sandoval on 06-27-2025 Hemoglobin (Bld) [Mass/Vol] 10.7 g/dL Low 12.0-15.0 [facility] Immature granulocytes/100 WB C Auto (Bld)Ordered By: Red Sandoval on 06-27-2025 Immature granulocytes/100 WBC (Bld) 1.000 % High 0.0-0.9 [facility] Comment on above: IG% - Immature Granu locytes (promyelocytes, myelocytes and metamyelocytes) > 1% indicates that a LEFT SHIFT is Present. Iron measurement (mass/mass) Ordered By: Red Sandoval on 06-27-2025 Iron (Unsp spec) [Mass/Mass] 53 ug/dL 50-170 [facility] Iron+Iron Binding Capacityon 06-27-2025 Iron [Mass/Vol] 53 ug/dL Normal 50-170 [facility] Comment on above: Performed By: #### L 3100.5400, L100.0100, L500.4050, L501.9985, L500.4100, L501.4021 #### [facility] Laboratory [address] [place] [address] IRON SATURATION 14.0 Normal 13-59 [facility] Comment on above: Performed By: #### L 3100.5400, L100.0100, L500.4050, L501.9985, L500.4100, L501.4021 #### [facility] Laboratory [address] [facility] [address] TIBC 377 ug/dL Normal 250-450 [facility] Comment on above: Performed By: #### L 3100.5400, L100.0100, L500.4050, L501.9985, L500.4100, L501.4021 #### [facility] Laboratory [address] [place] [address] UIBC 324 ug/dL Normal 228-428 [facility] Comment on above: Performed By: #### L 3100.5400, L100.0100, L500.4050, L501.9985, L500.4100, L501.4021 #### [facility] Laboratory [address] [facility] [address] LDL calc ser/plasOrdered By: Red Sandoval on 06-27-2025 Cholesterol in LDL [Mass/Vol] 102 mg/dL [facility] Comment on above: Obkaijdmli=242-186 m g/dL & Higher Flme=448 mg/dL or greaterFriedwald Equation for LDL-C Lipid Profileon 06-27-2025 CHOL:HDL 5.31 Normal [facility] Comment on above: Performed By: #### L 3100.5400, L100.0100, L500.4050, L501.9985, L500.4100, L501.4021 #### [facility] Laboratory [address] [place], [address] Cholesterol [Mass/Vol] 181 mg/dL Normal <=200 [facility] Comment on above: Result Comment: Chol esterol level, Desirable <200 mg/dL Borderline high cholesterol 200-239 mg/dL High cholesterol >=240 mg/dL Recommendations of the NCEP Adult Treatment Panel for the following risk-cutoff thresholds for the [place] population. Performed By: #### L 3100.5400, L100.0100, L500.4050, L501.9985, L500.4100, L501.4021 #### [facility] Laboratory [address] [place], [address] Cholesterol in HDL [Mass/Vol] 34 mg/dL Low [facility] Comment on above: Result Comment: Mayda onal Cholesterol Education Program (NCEP) guidelines: <40 mg/dL: Low HDL-cholesterol (major risk factor for CHD) >= 60 mg/dL: High HDL-cholesterol (negative risk factor for CHD) HDL-cholesterol is affected by a number of factors, e.g. smoking, exercise, hormones, sex and age. Performed By: #### L 3100.5400, L100.0100, L500.4050, L501.9985, L500.4100, L501.4021 #### [facility] Laboratory [address] [place], [address] Cholesterol in LDL [Mass/Vol] 102 mg/dL Normal [facility] Comment on above: Result Comment: Bord avtwov=583-267 mg/dL Higher Rxqt=797 mg/dL or greater Friedwald Equation for LDL-C Performed By: #### L 3100.5400, L100.0100, L500.4050, L501.9985, L500.4100, L501.4021 #### [facility] Laboratory [address] [place], [address] Cholesterol in VLDL [Mass/Vol] 45 mg/dL High 5-40 [facility] Comment on above: Performed By: #### L 3100.5400, L100.0100, L500.4050, L501.9985, L500.4100, L501.4021 #### [facility] Laboratory [address] [place], [address] Triglyceride [Mass/Vol] 224 mg/dL High [facility] Comment on above: Result Comment: The drugs N-Acetylcysteine and Metamizole may falsely depress this assay. Normal range: <150 mg/dL Borderline High: 150-199 mg/dL High: 200-499 mg/dL Very High: >500 mg/dL Performed By: #### L 3100.5400, L100.0100, L500.4050, L501.9985, L500.4100, L501.4021 #### [facility] Laboratory [address] [place], [place], [id number] MCV (mean corpuscular volume ) determinationOrdered By: Red Sandoval on 06-27-2025 MCV (RBC) [Entitic vol] 87.5 fL 81-99 [facility] Mean corpuscular hemoglobin (MCH) determinationOrdered By: Red Sandoval on 06-27-2025 MCH (RBC) [Entitic mass] 27.9 pg 27.0-32.0 [facility] Mean corpuscular hemoglobin concentration (MCHC) determinationOrdered By: Red Sandoval on 06-27-2025 MCHC (RBC) [Mass/Vol] 31.8 g/dL Low 32-36 [facility] Mean platelet volume determi nationOrdered By: Red Sandoval on 06-27-2025 Platelet mean volume (Bld) [Entitic vol] 9.9 fL 6.2-12.0 [facility] Microalb:Creat Ratio,Random URon 06-27-2025 Creatinine [Mass/Vol] 91.20 mg/dL Normal 28.00-217.00 [facility] Comment on above: Performed By: #### L 3100.5400, L100.0100, L500.4050, L501.9985, L500.4100, L501.4021 #### [facility] Laboratory [address] [place], [place], [id number] [phone] MALB:CREAT UNABLE TO CALCULATE Normal <30 mg/g CRE [facility] Comment on above: Performed By: #### L 3100.5400, L100.0100, L500.4050, L501.9985, L500.4100, L501.4021 #### [facility] Laboratory [address] [place], [place], [id number] [phone] MICROALBUMIN,UR < 12.0 Normal <20 mg/L [facility] Comment on above: Performed By: #### L 3100.5400, L100.0100, L500.4050, L501.9985, L500.4100, L501.4021 #### [facility] Laboratory [address] [facility] [place], [place], [id number] Microalbumin/creat ratio urO rdered By: Red Sandoval on 06-27-2025 Urine microalbumin/creatinine ratio measurement UNABLE TO CALCULATE mg/g CRE <30 [facility] Monocyte percentageOrdered B y: Red aSndoval on 06-27-2025 Monocytes/100 WBC (Bld) 5.2 % 0-10 [facility] Neutrophil percentageOrdered By: Red Sandoval on 06-27-2025 Neutrophils/100 WBC (Bld) 71.1 % High 47-70 [facility] No Panel InformationOrdered By: Red Sandoval on 06-27-2025 Unsaturated Iron Binding Capacity 324 ug/dL 228-428 [facility] Nucleated red blood cell per centageOrdered By: Red Sandoval on 06-27-2025 Nucleated RBC/100 WBC (Bld) [Ratio] 0 % 0-5 [facility] Platelet countOrdered By: Yousuf Sandoval on 06-27-2025 Platelets (Bld) [#/Vol] 244 10*3/uL 150-450 [facility] Potassium measurement (mass/ volume)Ordered By: Red Sandoval on 06-27-2025 Potassium (Unsp spec) [Mass/Vol] 3.7 mmol/L 3.3-5.1 [facility] RBC Auto (Bld) [#/Vol]Ordere d By: Red Sandoval on 06-27-2025 RBC (Bld) [#/Vol] 3.84 10*6/uL Low 4.2-5.4 [facility] Random urine creatinine sandy urement (mass/volume)Ordered By: Red Sandoval on 06-27-2025 Creatinine Unsp time (U) [Mass/Vol] 91.20 mg/dL 28.00-217.00 [facility] Screening total cholesterol/ high density lipoprotein (HDL) cholesterol ratioOrdered By: Red Sandoval on 06-27-2025 Cholesterol.total/Choles terol in HDL [Mass ratio] 5.31 {ratio} [facility] Serum creatinine measurement (mass/volume)Ordered By: Red Sandoval on 06-27-2025 Creatinine [Mass/Vol] 0.93 mg/dL 0.70-1.20 [facility] Serum glucose measurement (m ass/volume)Ordered By: Red Sandoval on 06-27-2025 Glucose [Mass/Vol] 198 mg/dL High 70-99 [facility] Serum or plasma calcium sandy urement (mass/volume)Ordered By: Red Sandoval on 06-27-2025 Calcium [Mass/Vol] 8.7 mg/dL 7.6-11.0 [facility] Serum or plasma cholesterol in HDL measurement (mass/volume)Ordered By: Red Sandoval on 06-27-2025 Cholesterol in HDL [Mass/Vol] 34 mg/dL Low >40 [facility] Comment on above: National Cholesterol Education Program (NCEP) guidelines:<40 mg/dL: Low HDL-cholesterol (major risk factor for CHD)>= 60 mg/dL: High HDL-cholesterol (negative risk factor for CHD)HDL-cholesterol is affected by a number of factors, e.g. smoking, exercise, hormones, sex and age. Serum or plasma cholesterol measurement (mass/volume)Ordered By: Red Sandoval on 06-27-2025 Cholesterol [Mass/Vol] 181 mg/dL <201 [facility] Comment on above: Cholesterol level, D esirable <200 mg/dLBorderline high cholesterol 200-239 mg/dLHigh cholesterol >=240 mg/dLRecommendations of the NCEP Adult Treatment Panel for the following risk-cutoff thresholds for the [place] population. Serum or plasma ferritin darrel surement (mass/volume)Ordered By: Red Sandoval on 06-27-2025 Ferritin [Mass/Vol] 108 ng/mL 22-378 [facility] Serum or plasma iron saturat ion measurement (mass fraction)Ordered By: Red Sandoval on 06-27-2025 Iron saturation [Mass fraction] 14.0 % 13-59 [facility] Serum or plasma urea nitroge n measurement (mass/volume)Ordered By: Red Sandoval on 06-27-2025 Urea nitrogen [Mass/Vol] 10 mg/dL 4-19 [facility] Sodium levelOrdered By: Red Sandoval on 06-27-2025 Sodium [Moles/Vol] 139 mmol/L 133-145 [facility] Triglycerides measurementOrd ered By: Red Sandoval on 06-27-2025 Triglyceride [Mass/Vol] 224 mg/dL High <199 [facility] Comment on above: The drugs N-Acetylcy steine and Metamizole may falsely depress this assay. Normal range: <150 mg/dLBorderline High: 150-199 mg/dLHigh: 200-499 mg/dLVery High: >500 mg/dL Urine albumin measurement wi detection limit of 20 mg/L or less (mass/volume)Ordered By: Red Sandoval on 06-27-2025 Albumin DL <= 20 mg/L (U) [Mass/Vol] < 12.0 mg/L <20 mg/L [facility] White blood cell (WBC) count Ordered By: Red Sandoval on 06-27-2025 WBC (Bld) [#/Vol] 5.7 10*3/uL 4.4-11.0 [facility] Chest PA and Lateralon 06-15 Chest PA and Lateral [facility] [address] [place] [address] Chest PA and Lateral MR#: [id number] Acct: [id number] Name: HEIDI ANDREWS Rep #: [id number] : 1970 F 55 From: aMgdy Bowling PCP: Dr. Red Sandoval MD Status: REG CLI Study: Chest PA and Lateral Date of Exam: 06/15/25 Exam# [id number] Ordering Dr: Nikolai Kim MD PROCEDURE: CHEST [...] evidence of acute cardiopulmonary disease. Reading Location: [place] [address] CC: Dr. Red Sandoval MD; Dr. Nikolai Kim MD Investigative Shopper: Signed Normal [facility] Absolute lymphocyte countOrd ered By: Glen Chapman on 06-04-2025 Lymphocytes Auto (Unsp spec) [#/Vol] 1.05 10*3/uL 0.83-4.51 [facility] Absolute neutrophil countOrd ered By: Glen Chapman on 06-04-2025 Neutrophils (Bld) [#/Vol] 4.4 10*3/uL 2.0-7.7 [facility] Anion gap in Serum or Plasma Ordered By: Glen Chapman on 06-04-2025 Anion gap [Moles/Vol] 15 mmol/L 5-15 [facility] Automated lymphocyte count a s percentage of total leukocytesOrdered By: Glen Chapman on 06-04-2025 Lymphocytes/100 WBC Auto (Unsp spec) 17.1 % Low 19-41 [facility] BUN/creatinine ratioOrdered By: Glen Chapman on 06-04-2025 Urea nitrogen/Creatinine [Mass ratio] 10.3 mg/mg 10-20 [facility] Basophil percentageOrdered B y: Glen Chapman on 06-04-2025 Basophils/100 WBC (Bld) 0.5 % 0-1 [facility] Bilirubin, totalOrdered By: Glen Chapman on 06-04-2025 Bilirubin [Mass/Vol] 0.26 mg/dL 0.00-1.30 [facility] CBC W/Diff, Automatedon 05-16-2024 Absolute Lymph 1.05 X10 3/uL Normal 0.83-4.51 [facility] Comment on above: Performed By: #### L 3100.5400, L100.0100, L500.4050, L501.9985, L500.4100, L501.4021 #### [facility] Laboratory [address] [place], [address] Absolute Neut 4.4 X10 3/uL Normal 2.0-7.7 [facility] Comment on above: Performed By: #### L 3100.5400, L100.0100, L500.4050, L501.9985, L500.4100, L501.4021 #### [facility] Laboratory [address] [place], [address] Basophils/100 WBC (Bld) 0.5 % Normal 0-1 [facility] Comment on above: Performed By: #### L 3100.5400, L100.0100, L500.4050, L501.9985, L500.4100, L501.4021 #### [facility] Laboratory [address] [place], [address] Eosinophils/100 WBC (Bld) 4.7 % Normal 0-5 [facility] Comment on above: Performed By: #### L 3100.5400, L100.0100, L500.4050, L501.9985, L500.4100, L501.4021 #### [facility] Laboratory [address] [place], [address] Erythrocyte distribution width (RBC) [Ratio] 15.2 % High 11.6-14.6 [facility] Comment on above: Performed By: #### L 3100.5400, L100.0100, L500.4050, L501.9985, L500.4100, L501.4021 #### [facility] Laboratory [address] [place], [address] Hematocrit (Bld) [Volume fraction] 35.0 % Low 37-47 [facility] Comment on above: Performed By: #### L 3100.5400, L100.0100, L500.4050, L501.9985, L500.4100, L501.4021 #### [facility] Laboratory [address] [place], [address] Hemoglobin (Bld) [Mass/Vol] 11.3 g/dL Low 12.0-15.0 [facility] Comment on above: Performed By: #### L 3100.5400, L100.0100, L500.4050, L501.9985, L500.4100, L501.4021 #### [facility] Laboratory [address] [place], [address] IG% 1.300 High 0.0-0.9 [facility] Comment on above: Result Comment: IG% - Immature Granulocytes (promyelocytes, myelocytes and metamyelocytes) > 1% indicates that a LEFT SHIFT is Present. Performed By: #### L 3100.5400, L100.0100, L500.4050, L501.9985, L500.4100, L501.4021 #### [facility] Laboratory [address] [place], [address] Lymphocytes/100 WBC (Bld) 17.1 % Low 19-41 [facility] Comment on above: Performed By: #### L 3100.5400, L100.0100, L500.4050, L501.9985, L500.4100, L501.4021 #### [facility] Laboratory [address] [place], [address] MCH (RBC) [Entitic mass] 28.0 pg Normal 27.0-32.0 [facility] Comment on above: Performed By: #### L 3100.5400, L100.0100, L500.4050, L501.9985, L500.4100, L501.4021 #### [facility] Laboratory [address] [place], [address] MCHC (RBC) [Mass/Vol] 32.3 g/dL Normal 32-36 [facility] Comment on above: Performed By: #### L 3100.5400, L100.0100, L500.4050, L501.9985, L500.4100, L501.4021 #### [facility] Laboratory [address] [place], [address] MCV (RBC) [Entitic vol] 86.6 fL Normal 81-99 [facility] Comment on above: Performed By: #### L 3100.5400, L100.0100, L500.4050, L501.9985, L500.4100, L501.4021 #### [facility] Laboratory [address] [place], [address] Monocytes/100 WBC (Bld) 5.5 % Normal 0-10 [facility] Comment on above: Performed By: #### L 3100.5400, L100.0100, L500.4050, L501.9985, L500.4100, L501.4021 #### [facility] Laboratory [address] [place], [address] Neutrophils/100 WBC (Bld) 70.9 % High 47-70 [facility] Comment on above: Performed By: #### L 3100.5400, L100.0100, L500.4050, L501.9985, L500.4100, L501.4021 #### [facility] Laboratory [address] [place], [address] Nucleated RBC (Bld) [#/Vol] 0 10*3/uL Normal 0-5 [facility] Comment on above: Performed By: #### L 3100.5400, L100.0100, L500.4050, L501.9985, L500.4100, L501.4021 #### [facility] Laboratory [address] [place], [address] Platelet mean volume (Bld) [Entitic vol] 9.6 fL Normal 6.2-12.0 [facility] Comment on above: Performed By: #### L 3100.5400, L100.0100, L500.4050, L501.9985, L500.4100, L501.4021 #### [facility] Laboratory [address] [place], [address] Platelets (Bld) [#/Vol] 241 10*3/uL Normal 150-450 [facility] Comment on above: Performed By: #### L 3100.5400, L100.0100, L500.4050, L501.9985, L500.4100, L501.4021 #### [facility] Laboratory [address] [place], [address] RBC (Bld) [#/Vol] 4.04 10*6/uL Low 4.2-5.4 [facility] Comment on above: Performed By: #### L 3100.5400, L100.0100, L500.4050, L501.9985, L500.4100, L501.4021 #### [facility] Laboratory [address] [place], [address] RDW SD 47.2 fl High 35.1-43.9 [facility] Comment on above: Performed By: #### L 3100.5400, L100.0100, L500.4050, L501.9985, L500.4100, L501.4021 #### [facility] Laboratory [address] [place], [address] WBC (Bld) [#/Vol] 6.2 10*3/uL Normal 4.4-11.0 [facility] Comment on above: Performed By: #### L 3100.5400, L100.0100, L500.4050, L501.9985, L500.4100, L501.4021 #### [facility] [address] [place], [address] CRPon 06-04-2025 C-REACTIVE PROT 23.30 mg/L High 0.0-3.0 [facility] Comment on above: Performed By: #### L 3100.5400, L100.0100, L500.4050, L501.9985, L500.4100, L501.4021 #### [facility] Laboratory [address] [place], [address] Carbon dioxide, total [Moles /volume] in Central venous bloodOrdered By: Glen Chapman on 06-04-2025 CO2 [Moles/Vol] 24.0 mmol/L 21.0-32.0 [facility] Chloride assayOrdered By: Jaimee Chapman on 06-04-2025 Chloride [Moles/Vol] 96 mmol/L Low 98-108 [facility] Comprehensive Metabolic Prof ilon 06-04-2025 Albumin [Mass/Vol] 4.2 g/dL Normal 3.5-5.0 [facility] Comment on above: Performed By: #### L 3100.5400, L100.0100, L500.4050, L501.9985, L500.4100, L501.4021 #### [facility] Laboratory [address] [place], [address] Albumin/Globulin [Mass ratio] 1.6 {ratio} Normal 0.9-2.4 [facility] Comment on above: Performed By: #### L 3100.5400, L100.0100, L500.4050, L501.9985, L500.4100, L501.4021 #### [facility] [address] [place], [address] ALK PHOS 83 U/L Normal 35-104 [facility] Comment on above: Performed By: #### L 3100.5400, L100.0100, L500.4050, L501.9985, L500.4100, L501.4021 #### [facility] [address] [place], [address] ALT [Catalytic activity/Vol] 12 U/L Normal <=34 [facility] Comment on above: Performed By: #### L 3100.5400, L100.0100, L500.4050, L501.9985, L500.4100, L501.4021 #### [facility] [address] [place], [address] AST [Catalytic activity/Vol] 17 U/L Normal <=31 [facility] Comment on above: Performed By: #### L 3100.5400, L100.0100, L500.4050, L501.9985, L500.4100, L501.4021 #### [facility] [address] [place], [address] Bilirubin [Mass/Vol] 0.26 mg/dL Normal 0.00-1.30 [facility] Comment on above: Performed By: #### L 3100.5400, L100.0100, L500.4050, L501.9985, L500.4100, L501.4021 #### [facility] [address] [place], [address] BUN/CRE 10.3 RATIO Normal 10-20 [facility] Comment on above: Performed By: #### L 3100.5400, L100.0100, L500.4050, L501.9985, L500.4100, L501.4021 #### [facility] [address] [place], [address] Calcium [Mass/Vol] 9.1 mg/dL Normal 7.6-11.0 [facility] Comment on above: Performed By: #### L 3100.5400, L100.0100, L500.4050, L501.9985, L500.4100, L501.4021 #### [facility] [address] [place], [address] Chloride [Moles/Vol] 96 mmol/L Low 98-108 [facility] Comment on above: Performed By: #### L 3100.5400, L100.0100, L500.4050, L501.9985, L500.4100, L501.4021 #### [facility] [address] [place], [address] CO2 [Moles/Vol] 24.0 mmol/L Normal 21.0-32.0 [facility] Comment on above: Performed By: #### L 3100.5400, L100.0100, L500.4050, L501.9985, L500.4100, L501.4021 #### [facility] [address] [place], [address] Creatinine [Mass/Vol] 0.83 mg/dL Normal 0.70-1.20 [facility] Comment on above: Performed By: #### L 3100.5400, L100.0100, L500.4050, L501.9985, L500.4100, L501.4021 #### [facility] [address] [place], [address] ECRCL 104.65 ml/min Normal 50-250 [facility] Comment on above: Performed By: #### L 3100.5400, L100.0100, L500.4050, L501.9985, L500.4100, L501.4021 #### [facility] [address] [place], [address] GAP 15 Normal 5-15 [facility] Comment on above: Performed By: #### L 3100.5400, L100.0100, L500.4050, L501.9985, L500.4100, L501.4021 #### [facility] [address] [place], [address] GFR/1.73 sq M.predicted among non-blacks MDRD (S/P/Bld) [Vol rate/Area] 84 mL/min/{1.73_m2} Normal >60 [facility] Comment on above: Result Comment: mL/m in/1.73m2 CKD-EPI Creatinine Equation (2020) Performed By: #### L 3100.5400, L100.0100, L500.4050, L501.9985, L500.4100, L501.4021 #### [facility] [address] [place], [address] Globulin (S) [Mass/Vol] 2.7 g/dL Normal 2.2-4.2 [facility] Comment on above: Performed By: #### L 3100.5400, L100.0100, L500.4050, L501.9985, L500.4100, L501.4021 #### [facility] [address] [place], [address] Glucose [Mass/Vol] 283 mg/dL High 70-99 [facility] Comment on above: Performed By: #### L 3100.5400, L100.0100, L500.4050, L501.9985, L500.4100, L501.4021 #### [facility] [address] [place], [address] Potassium [Moles/Vol] 3.7 mmol/L Normal 3.3-5.1 [facility] Comment on above: Performed By: #### L 3100.5400, L100.0100, L500.4050, L501.9985, L500.4100, L501.4021 #### [facility] [address] [place], [address] Sodium [Moles/Vol] 135 mmol/L Normal 133-145 [facility] Comment on above: Performed By: #### L 3100.5400, L100.0100, L500.4050, L501.9985, L500.4100, L501.4021 #### [facility] [address] [place], [address] T PROT 6.9 g/dL Normal 5.9-8.4 [facility] Comment on above: Performed By: #### L 3100.5400, L100.0100, L500.4050, L501.9985, L500.4100, L501.4021 #### [facility] [address] [place], [address] Urea nitrogen [Mass/Vol] 9 mg/dL Normal 4-19 [facility] Comment on above: Performed By: #### L 3100.5400, L100.0100, L500.4050, L501.9985, L500.4100, L501.4021 #### [facility] [address] [place], [address] Eosinophil percentageOrdered By: Glen Chapman on 06-04-2025 Eosinophils/100 WBC (Bld) 4.7 % 0-5 [facility] Erythrocyte Sed Rateon 06-04 SED RATE 18 mm/hr Normal 0-30 [facility] Comment on above: Performed By: #### L 3100.5400, L100.0100, L500.4050, L501.9985, L500.4100, L501.4021 #### [facility] [address] [place], [address] Erythrocyte distribution wid th ratioOrdered By: Glen Ari on 06-04-2025 Erythrocyte distribution width (RBC) [Ratio] 15.2 % High 11.6-14.6 [facility] Erythrocyte distribution wid th standard deviationOrdered By: Glen Chapman on 06-04-2025 Erythrocyte distribution width (RBC) [Ratio] 47.2 fl High 35.1-43.9 [facility] Erythrocyte sedimentation ra teOrdered By: Glen Chapman on 06-04-2025 ESR (Bld) [Velocity] 18 mm/h 0-30 [facility] Ferritinon 06-04-2025 Ferritin [Mass/Vol] 76 ng/mL Normal 22-378 [facility] Comment on above: Performed By: #### L 3100.5400, L100.0100, L500.4050, L501.9985, L500.4100, L501.4021 #### [facility] [address] [place], [place], [address] Glomerular filtration rate ( GFR) estimation/1.73 sq m using serum, plasma, or whole bOrdered By: Glen Chapman on 06-04-2025 GFR/1.73 sq M.predicted among non-blacks MDRD (S/P/Bld) [Vol rate/Area] 84 mL/min/{1.73_m2} >60 [facility] Comment on above: mL/min/1.73m2 CKD-EP I Creatinine Equation (2020) Hematocrit Auto (Bld) [Volum e fraction]Ordered By: Glen Chapman on 06-04-2025 Hematocrit (Bld) [Volume fraction] 35.0 % Low 37-47 [facility] Hemoglobin measurementOrdere d By: Glen Chapman on 06-04-2025 Hemoglobin (Bld) [Mass/Vol] 11.3 g/dL Low 12.0-15.0 [facility] Immature granulocytes/100 WB C Auto (Bld)Ordered By: Glen Chapman on 06-04-2025 Immature granulocytes/100 WBC (Bld) 1.300 % High 0.0-0.9 [facility] Comment on above: IG% - Immature Granu locytes (promyelocytes, myelocytes and metamyelocytes) > 1% indicates that a LEFT SHIFT is Present. Iron measurement (mass/mass) Ordered By: Glen Chapman on 06-04-2025 Iron (Unsp spec) [Mass/Mass] 57 ug/dL 50-170 [facility] Iron+Iron Binding Capacityon 06-04-2025 Iron [Mass/Vol] 57 ug/dL Normal 50-170 [facility] Comment on above: Performed By: #### L 3100.5400, L100.0100, L500.4050, L501.9985, L500.4100, L501.4021 #### [facility] [address] [place], [address] IRON SATURATION 14.0 Normal 13-59 [facility] Comment on above: Performed By: #### L 3100.5400, L100.0100, L500.4050, L501.9985, L500.4100, L501.4021 #### [facility] [address] [place], [address] TIBC 395 ug/dL Normal 250-450 [facility] Comment on above: Performed By: #### L 3100.5400, L100.0100, L500.4050, L501.9985, L500.4100, L501.4021 #### [facility] [address] [place], [address] UIBC 338 ug/dL Normal 228-428 [facility] Comment on above: Performed By: #### L 3100.5400, L100.0100, L500.4050, L501.9985, L500.4100, L501.4021 #### [facility] [address] [place], [address] LDHon 06-04-2025 LDH 167 U/L Normal 84-246 [facility] Comment on above: Order Comment: DR.MA BAILEY GETS RESULTS FOR CBCD CMP LIPID ANDPROLACTIN DR. SANDOVAL GETS RESULTS FOR CBCD BMP AND TROPNIN Performed By: #### L 3100.5400, L100.0100, L500.4050, L501.9985, L500.4100, L501.4021 #### [facility] [address] [place], [place], [id number] Laboratory - Chemistry and C hemistry - challengeOrdered By: Glen Chapman on 06-04-2025 AST [Catalytic activity/Vol] 17 U/L <32 [facility] Lactate dehydrogenase (LDH) measurementOrdered By: Glen Chapman on 06-04-2025 LDH [Catalytic activity/Vol] 167 U/L 84-246 [facility] MCV (mean corpuscular volume ) determinationOrdered By: Glen Chapman on 06-04-2025 MCV (RBC) [Entitic vol] 86.6 fL 81-99 [facility] Magnesiumon 06-04-2025 Magnesium [Mass/Vol] 1.5 mg/dL Normal 1.5-2.2 [facility] Comment on above: Performed By: #### L 3100.5400, L100.0100, L500.4050, L501.9985, L500.4100, L501.4021 #### [facility] [address] [facility] [place], [place], [id number] Magnesium measurement (mass/ volume)Ordered By: Glen Chapman on 06-04-2025 Magnesium (Unsp spec) [Mass/Vol] 1.5 mg/dL 1.5-2.2 [facility] Mean corpuscular hemoglobin (MCH) determinationOrdered By: Glen Chapman on 06-04-2025 MCH (RBC) [Entitic mass] 28.0 pg 27.0-32.0 [facility] Mean corpuscular hemoglobin concentration (MCHC) determinationOrdered By: Glen Chapman on 06-04-2025 MCHC (RBC) [Mass/Vol] 32.3 g/dL 32-36 [facility] Mean platelet volume determi nationOrdered By: Glen Chapman on 06-04-2025 Platelet mean volume (Bld) [Entitic vol] 9.6 fL 6.2-12.0 [facility] Monocyte percentageOrdered B y: Glen Chapman on 06-04-2025 Monocytes/100 WBC (Bld) 5.5 % 0-10 [facility] Neutrophil percentageOrdered By: Glen Chapman on 06-04-2025 Neutrophils/100 WBC (Bld) 70.9 % High 47-70 [facility] No Panel InformationOrdered By: Glen Chapman on 06-04-2025 Unsaturated Iron Binding Capacity 338 ug/dL 228-428 [facility] Nucleated red blood cell per centageOrdered By: Glen Chapman on 06-04-2025 Nucleated RBC/100 WBC (Bld) [Ratio] 0 % 0-5 [facility] Oncology Visit Reporton 05-16 Oncology Visit Report [facility] [address] [place] [address] OFFICE VISIT Date of Service: 06/04/25 1109 MR#: [id number] Acct: [id number] Name: HEIDI ANDREWS Rep #: [id number] : 1970 From: Glen Chapman MD Age/Sex: 55/F Location: [facility] Status: Signed HPI Subjective Date [...] deficiency. Comes for follow up. Feels better. [facility] Medical History Sleep apnea Wears glasses Thyroid disease Diabetes Anemia Former smoker Diabetes Anxiety Psoriasis Hypothyroid Vitamin D deficiency Hypertriglyceridemia Bipolar disorder, unspecified HTN (hypertension) Surgical History Hx of section Hx of bilateral breast reduction surgery Family History Father Hypertension Diabetes Sister Anxiety MCTD (mixed connective tissue disease) Mother Psoriatic arthritis Social History household members: spouse current occupational status: employed current occupation: [employer] Smoking Status: Former smoker alcohol intake: never [...] anemia, unspe (more content not included)... Normal [facility] Phosphoruson 06-04-2025 Phosphate [Mass/Vol] 2.4 mg/dL Low 2.7-4.5 [facility] Comment on above: Performed By: #### L 3100.5400, L100.0100, L500.4050, L501.9985, L500.4100, L501.4021 #### [facility] [address] [place], [address] Platelet countOrdered By: Jaimee Chapman on 06-04-2025 Platelets (Bld) [#/Vol] 241 10*3/uL 150-450 [facility] Potassium measurement (mass/ volume)Ordered By: Glen Chapman on 06-04-2025 Potassium (Unsp spec) [Mass/Vol] 3.7 mmol/L 3.3-5.1 [facility] RBC Auto (Bld) [#/Vol]Ordere d By: Glen Chapman on 06-04-2025 RBC (Bld) [#/Vol] 4.04 10*6/uL Low 4.2-5.4 [facility] Serum creatinine measurement (mass/volume)Ordered By: Glen Chapman on 06-04-2025 Creatinine [Mass/Vol] 0.83 mg/dL 0.70-1.20 [facility] Serum globulin measurementOr dered By: Glen Chapman on 06-04-2025 Globulin (S) [Mass/Vol] 2.7 g/dL 2.2-4.2 [facility] Serum glucose measurement (m ass/volume)Ordered By: Glen Chapman on 06-04-2025 Glucose [Mass/Vol] 283 mg/dL High 70-99 [facility] Serum or plasma C reactive p rotein measurement (mass/volume)Ordered By: Glen Chapman on 06-04-2025 CRP [Mass/Vol] 23.30 mg/L High 0.0-3.0 [facility] Serum or plasma alanine cueto otransferase (ALT) measurementOrdered By: Glen Chapman on 06-04-2025 ALT [Catalytic activity/Vol] 12 U/L <35 [facility] Serum or plasma albumin sandy urement (mass/volume)Ordered By: Glen Chapman on 06-04-2025 Albumin [Mass/Vol] 4.2 g/dL 3.5-5.0 [facility] Serum or plasma albumin/glob ulin mass ratioOrdered By: Glen Chapman on 06-04-2025 Albumin/Globulin [Mass ratio] 1.6 {ratio} 0.9-2.4 [facility] Serum or plasma alkaline rebecca sphatase measurementOrdered By: Glen Chapman on 06-04-2025 ALP [Catalytic activity/Vol] 83 U/L 35-104 [facility] Serum or plasma calcium sandy urement (mass/volume)Ordered By: Glen Chapman on 06-04-2025 Calcium [Mass/Vol] 9.1 mg/dL 7.6-11.0 [facility] Serum or plasma ferritin darrel surement (mass/volume)Ordered By: Glen Chapman on 06-04-2025 Ferritin [Mass/Vol] 76 ng/mL 22-378 [facility] Serum or plasma iron saturat ion measurement (mass fraction)Ordered By: Glen Chapman on 06-04-2025 Iron saturation [Mass fraction] 14.0 % 13-59 [facility] Serum or plasma urea nitroge n measurement (mass/volume)Ordered By: Glen Chapman on 06-04-2025 Urea nitrogen [Mass/Vol] 9 mg/dL 4-19 [facility] Sodium levelOrdered By: Cy Chapman on 06-04-2025 Sodium [Moles/Vol] 135 mmol/L 133-145 [facility] Total proteinOrdered By: Vasquez Chapman on 06-04-2025 Protein [Mass/Vol] 6.9 g/dL 5.9-8.4 [facility] Vitamin B12on 06-04-2025 Cobalamin (Vitamin B12) [Mass/Vol] 416 pg/mL Normal 180-914 [facility] Comment on above: Performed By: #### L 3100.5400, L100.0100, L500.4050, L501.9985, L500.4100, L501.4021 #### [facility] [address] [place] [address], [address] Vitamin B12 ser/plasOrdered By: Glen Chapman on 06-04-2025 Cobalamin (Vitamin B12) [Mass/Vol] 416 pg/mL 180-914 [facility] White blood cell (WBC) count Ordered By: Glen Chapman on 06-04-2025 WBC (Bld) [#/Vol] 6.2 10*3/uL 4.4-11.0 [facility] Absolute lymphocyte countOrd ered By: Glen Chapman on 05-07-2025 Lymphocytes Auto (Unsp spec) [#/Vol] 1.11 10*3/uL 0.83-4.51 [facility] Absolute neutrophil countOrd ered By: Glen Chapman on 05-07-2025 Neutrophils (Bld) [#/Vol] 2.9 10*3/uL 2.0-7.7 [facility] Automated lymphocyte count a s percentage of total leukocytesOrdered By: Glen Chapman on 05-07-2025 Lymphocytes/100 WBC Auto (Unsp spec) 23.9 % 19-41 [facility] Basophil percentageOrdered B y: Glen Chapman on 05-07-2025 Basophils/100 WBC (Bld) 0.4 % 0-1 [facility] CBC W/Diff, Automatedon 04-16-2024 Absolute Lymph 1.11 X10 3/uL Normal 0.83-4.51 [facility] Comment on above: Performed By: #### L 3100.5400, L100.0100, L500.4050, L501.9985, L500.4100, L501.4021 #### [facility] [address] [place], [address] Absolute Neut 2.9 X10 3/uL Normal 2.0-7.7 [facility] Comment on above: Performed By: #### L 3100.5400, L100.0100, L500.4050, L501.9985, L500.4100, L501.4021 #### [facility] [address] [place], [address] Basophils/100 WBC (Bld) 0.4 % Normal 0-1 [facility] Comment on above: Performed By: #### L 3100.5400, L100.0100, L500.4050, L501.9985, L500.4100, L501.4021 #### [facility] [address] [place], [address] Eosinophils/100 WBC (Bld) 6.3 % High 0-5 [facility] Comment on above: Performed By: #### L 3100.5400, L100.0100, L500.4050, L501.9985, L500.4100, L501.4021 #### [facility] [address] [place], [address] Erythrocyte distribution width (RBC) [Ratio] 19.2 % High 11.6-14.6 [facility] Comment on above: Performed By: #### L 3100.5400, L100.0100, L500.4050, L501.9985, L500.4100, L501.4021 #### [facility] [address] [place], [address] Hematocrit (Bld) [Volume fraction] 33.0 % Low 37-47 [facility] Comment on above: Performed By: #### L 3100.5400, L100.0100, L500.4050, L501.9985, L500.4100, L501.4021 #### [facility] [address] [place], [address] Hemoglobin (Bld) [Mass/Vol] 10.3 g/dL Low 12.0-15.0 [facility] Comment on above: Performed By: #### L 3100.5400, L100.0100, L500.4050, L501.9985, L500.4100, L501.4021 #### [facility] [address] [place], [address] IG% 1.100 High 0.0-0.9 [facility] Comment on above: Result Comment: IG% - Immature Granulocytes (promyelocytes, myelocytes and metamyelocytes) > 1% indicates that a LEFT SHIFT is Present. Performed By: #### L 3100.5400, L100.0100, L500.4050, L501.9985, L500.4100, L501.4021 #### [facility] [address] [place], [address] Lymphocytes/100 WBC (Bld) 23.9 % Normal 19-41 [facility] Comment on above: Performed By: #### L 3100.5400, L100.0100, L500.4050, L501.9985, L500.4100, L501.4021 #### [facility] [address] [place], [address] MCH (RBC) [Entitic mass] 28.0 pg Normal 27.0-32.0 [facility] Comment on above: Performed By: #### L 3100.5400, L100.0100, L500.4050, L501.9985, L500.4100, L501.4021 #### [facility] [address] [place], [address] MCHC (RBC) [Mass/Vol] 31.2 g/dL Low 32-36 [facility] Comment on above: Performed By: #### L 3100.5400, L100.0100, L500.4050, L501.9985, L500.4100, L501.4021 #### [facility] [address] [place], [address] MCV (RBC) [Entitic vol] 89.7 fL Normal 81-99 [facility] Comment on above: Performed By: #### L 3100.5400, L100.0100, L500.4050, L501.9985, L500.4100, L501.4021 #### [facility] [address] [place], [address] Monocytes/100 WBC (Bld) 6.9 % Normal 0-10 [facility] Comment on above: Performed By: #### L 3100.5400, L100.0100, L500.4050, L501.9985, L500.4100, L501.4021 #### [facility] [address] [place], [address] Neutrophils/100 WBC (Bld) 61.4 % Normal 47-70 [facility] Comment on above: Performed By: #### L 3100.5400, L100.0100, L500.4050, L501.9985, L500.4100, L501.4021 #### [facility] [address] [place], [address] Nucleated RBC (Bld) [#/Vol] 0 10*3/uL Normal 0-5 [facility] Comment on above: Performed By: #### L 3100.5400, L100.0100, L500.4050, L501.9985, L500.4100, L501.4021 #### [facility] [address] [place], [address] Platelet mean volume (Bld) [Entitic vol] 9.3 fL Normal 6.2-12.0 [facility] Comment on above: Performed By: #### L 3100.5400, L100.0100, L500.4050, L501.9985, L500.4100, L501.4021 #### [facility] [address] [place], [address] Platelets (Bld) [#/Vol] 232 10*3/uL Normal 150-450 [facility] Comment on above: Performed By: #### L 3100.5400, L100.0100, L500.4050, L501.9985, L500.4100, L501.4021 #### [facility] [address] [place], [address] RBC (Bld) [#/Vol] 3.68 10*6/uL Low 4.2-5.4 [facility] Comment on above: Performed By: #### L 3100.5400, L100.0100, L500.4050, L501.9985, L500.4100, L501.4021 #### [facility] [address] [place], [address] RDW SD 63.7 fl High 35.1-43.9 [facility] Comment on above: Performed By: #### L 3100.5400, L100.0100, L500.4050, L501.9985, L500.4100, L501.4021 #### [facility] [address] [place], [place], [id number] (498) WBC (Bld) [#/Vol] 4.6 10*3/uL Normal 4.4-11.0 [facility] Comment on above: Performed By: #### L 3100.5400, L100.0100, L500.4050, L501.9985, L500.4100, L501.4021 #### [facility] [address] [facility] [place], [place], [id number] (392) Eosinophil percentageOrdered By: Glen Chapman on 05-07-2025 Eosinophils/100 WBC (Bld) 6.3 % High 0-5 [facility] Erythrocyte distribution wid th ratioOrdered By: Glen Ari on 05-07-2025 Erythrocyte distribution width (RBC) [Ratio] 19.2 % High 11.6-14.6 [facility] Erythrocyte distribution wid th standard deviationOrdered By: Glen Ari on 05-07-2025 Erythrocyte distribution width (RBC) [Ratio] 63.7 fl High 35.1-43.9 [facility] Ferritinon 05-07-2025 Ferritin [Mass/Vol] 90 ng/mL Normal 22-378 [facility] Comment on above: Performed By: #### L 3000.0800, L100.9950, L3890.6006, L506.0200, L3410.9992, L101.9900, L503.0106, L500.4050, L501.1400, L400.0001, L503.6030, L3200.1200, L503.6550, L501.5101, L100.0100, L504.2610, L501.5200, L3200.0500, L501.6710, L3100.1350 #### [facility] [address] [place], [address] Hematocrit Auto (Bld) [Volum e fraction]Ordered By: Glen Statonrito on 05-07-2025 Hematocrit (Bld) [Volume fraction] 33.0 % Low 37-47 [facility] Hemoglobin measurementOrdere d By: Glen Statonrito on 05-07-2025 Hemoglobin (Bld) [Mass/Vol] 10.3 g/dL Low 12.0-15.0 [facility] Immature granulocytes/100 WB C Auto (Bld)Ordered By: Glen Statonrito on 05-07-2025 Immature granulocytes/100 WBC (Bld) 1.100 % High 0.0-0.9 [facility] Comment on above: IG% - Immature Granu locytes (promyelocytes, myelocytes and metamyelocytes) > 1% indicates that a LEFT SHIFT is Present. Iron measurement (mass/mass) Ordered By: Glen Ari on 05-07-2025 Iron (Unsp spec) [Mass/Mass] 57 ug/dL 50-170 [facility] Iron+Iron Binding Capacityon 05-07-2025 Iron [Mass/Vol] 57 ug/dL Normal 50-170 [facility] Comment on above: Performed By: #### L 3000.0800, L100.9950, L3890.6006, L506.0200, L3410.9992, L101.9900, L503.0106, L500.4050, L501.1400, L400.0001, L503.6030, L3200.1200, L503.6550, L501.5101, L100.0100, L504.2610, L501.5200, L3200.0500, L501.6710, L3100.1350 #### [facility] [address] [place], [address] IRON SATURATION 14.0 Normal 13-59 [facility] Comment on above: Performed By: #### L 3000.0800, L100.9950, L3890.6006, L506.0200, L3410.9992, L101.9900, L503.0106, L500.4050, L501.1400, L400.0001, L503.6030, L3200.1200, L503.6550, L501.5101, L100.0100, L504.2610, L501.5200, L3200.0500, L501.6710, L3100.1350 #### [facility] [address] [place], [address] TIBC 392 ug/dL Normal 250-450 [facility] Comment on above: Performed By: #### L 3000.0800, L100.9950, L3890.6006, L506.0200, L3410.9992, L101.9900, L503.0106, L500.4050, L501.1400, L400.0001, L503.6030, L3200.1200, L503.6550, L501.5101, L100.0100, L504.2610, L501.5200, L3200.0500, L501.6710, L3100.1350 #### [facility] [address] [place], [address] UIBC 335 ug/dL Normal 228-428 [facility] Comment on above: Performed By: #### L 3000.0800, L100.9950, L3890.6006, L506.0200, L3410.9992, L101.9900, L503.0106, L500.4050, L501.1400, L400.0001, L503.6030, L3200.1200, L503.6550, L501.5101, L100.0100, L504.2610, L501.5200, L3200.0500, L501.6710, L3100.1350 #### [facility] [address] [place], [address] LDHon 05-07-2025 LDH 132 U/L Normal 84-246 [facility] Comment on above: Order Comment: 1 Performed By: #### L 3000.0800, L100.9950, L3890.6006, L506.0200, L3410.9992, L101.9900, L503.0106, L500.4050, L501.1400, L400.0001, L503.6030, L3200.1200, L503.6550, L501.5101, L100.0100, L504.2610, L501.5200, L3200.0500, L501.6710, L3100.1350 #### [facility] [address] [facility] [place], [address] Lactate dehydrogenase (LDH) measurementOrdered By: Glen Chapman on 05-07-2025 LDH [Catalytic activity/Vol] 132 U/L 84-246 [facility] MCV (mean corpuscular volume ) determinationOrdered By: Glen Chapman on 05-07-2025 MCV (RBC) [Entitic vol] 89.7 fL 81-99 [facility] Magnesiumon 05-07-2025 Magnesium [Mass/Vol] 1.3 mg/dL Low 1.5-2.2 [facility] Comment on above: Performed By: #### L 3000.0800, L100.9950, L3890.6006, L506.0200, L3410.9992, L101.9900, L503.0106, L500.4050, L501.1400, L400.0001, L503.6030, L3200.1200, L503.6550, L501.5101, L100.0100, L504.2610, L501.5200, L3200.0500, L501.6710, L3100.1350 #### [facility] [address] [place], [address] Magnesium measurement (mass/ volume)Ordered By: Glen Chapman on 05-07-2025 Magnesium (Unsp spec) [Mass/Vol] 1.3 mg/dL Low 1.5-2.2 [facility] Mean corpuscular hemoglobin (MCH) determinationOrdered By: Glen Chapman on 05-07-2025 MCH (RBC) [Entitic mass] 28.0 pg 27.0-32.0 [facility] Mean corpuscular hemoglobin concentration (MCHC) determinationOrdered By: Glen Chapman on 05-07-2025 MCHC (RBC) [Mass/Vol] 31.2 g/dL Low 32-36 [facility] Mean platelet volume determi nationOrdered By: Glen Chapman on 05-07-2025 Platelet mean volume (Bld) [Entitic vol] 9.3 fL 6.2-12.0 [facility] Monocyte percentageOrdered B y: Glen Chapman on 05-07-2025 Monocytes/100 WBC (Bld) 6.9 % 0-10 [facility] Neutrophil percentageOrdered By: Houston Ari on 05-07-2025 Neutrophils/100 WBC (Bld) 61.4 % 47-70 [facility] No Panel InformationOrdered By: Glen Chapman on 05-07-2025 Unsaturated Iron Binding Capacity 335 ug/dL 228-428 [facility] Nucleated red blood cell per centageOrdered By: Glen Chapman on 05-07-2025 Nucleated RBC/100 WBC (Bld) [Ratio] 0 % 0-5 [facility] Oncology Visit Reporton 04-16 Oncology Visit Report [facility] [address] [place] [address] OFFICE VISIT Date of Service: 05/07/25825 MR#: [id number] Acct: [id number] Name: HEIDI ANDREWS Rep #: [id number] : 1970 From: Glen Chapman MD Age/Sex: 55/F [place] [facility] [place]: Signed HPI Subjective Date of Service [...] spouse current occupational status: employed current occupation: [employer] Smoking Status: Former smoker alcohol intake: never substance use type: does not use Intake Vital Signs 03/29/25 08:03 05/07/25 08:27 Height 5 ft 6 in 5 ft 6 in Weight: 122.47 kg BMI 43.5 BP 132/82 H Blood Pressure Location Lt brachial Position Sitting Respiration 18 Pulse 75 Pulse Source Monitor Temp 98.0 F Temperature Source Temporal Artery Pulse Oximetry (%) 96 Intake Public Information Specialist Required: No Accompanied by: Self Is patient [...] Details Foll (more content not included)... Normal [facility] Phosphoruson 05-07-2025 Phosphate [Mass/Vol] 2.6 mg/dL Low 2.7-4.5 [facility] Comment on above: Performed By: #### L 3100.5400, L100.0100, L500.4050, L501.9985, L500.4100, L501.4021 #### [facility] [address] [place], [address] Platelet countOrdered By: Jaimee Chapman on 05-07-2025 Platelets (Bld) [#/Vol] 232 10*3/uL 150-450 [facility] RBC Auto (Bld) [#/Vol]Ordere d By: Glen Chapman on 05-07-2025 RBC (Bld) [#/Vol] 3.68 10*6/uL Low 4.2-5.4 [facility] Serum or plasma ferritin darrel surement (mass/volume)Ordered By: Glen Chapman on 05-07-2025 Ferritin [Mass/Vol] 90 ng/mL 22-378 [facility] Serum or plasma iron saturat ion measurement (mass fraction)Ordered By: Glen Chapman on 05-07-2025 Iron saturation [Mass fraction] 14.0 % 13-59 [facility] Vitamin B12on 05-07-2025 Cobalamin (Vitamin B12) [Mass/Vol] 152 pg/mL Low 180-914 [facility] Comment on above: Performed By: #### L 3000.0800, L100.9950, L3890.6006, L506.0200, L3410.9992, L101.9900, L503.0106, L500.4050, L501.1400, L400.0001, L503.6030, L3200.1200, L503.6550, L501.5101, L100.0100, L504.2610, L501.5200, L3200.0500, L501.6710, L3100.1350 #### [facility] [address] [place], [address] Vitamin B12 ser/plasOrdered By: Glen Chapman on 05-07-2025 Cobalamin (Vitamin B12) [Mass/Vol] 152 pg/mL Low 180-914 [facility] White blood cell (WBC) count Ordered By: Glen Chapman on 05-07-2025 WBC (Bld) [#/Vol] 4.6 10*3/uL 4.4-11.0 [facility] Cardiovascular stress test r eportOrdered By: John Damian on 04-17-2025 Study report [facility] [address] [place] [address] MR#: [id number] Acct: [id number] Name: HEIDI ANDREWS Rep #: [id number] : 1970 55 From: John Damian MD [...] of 66%. This note was generated with Vee[employer] Software[employer] software. It may contain incorrectwords, spelling, and punctuation that were not noted in checking the note beforesigning. 04/17/25928 Date _ John Damian MD CC: Dr. Red Sandoval MD ~ Date Dictated: 04/17/25925 Date Transcribed: 04/17/25925 Investigative Shopper: MARY Smith [facility] Work Phone: Stress Reporton 04-17-2025 Stress Report [facility] [address] [place] [address] MR#: [id number] Acct: [id number] Name: HEIDI ANDREWS Rep #: [id number] : 1970 55 From: John Damian MD Primary Care: Dr. Red Sandoval MD Status: [facility] Referring Dr: Red Sandoval MD Sex: [...] of 66%. This note was generated with Hub[employer]ami dictation software. It may contain incorrect words, spelling, and punctuation that were not noted in checking the note before signing. 04/17/25928 Date John Damian MD CC: Dr. Red Sandoval MD Date Dictated: 04/17/25925 Date Transcribed: 04/17/25925 Investigative Shopper: AR Signed Normal [facility] Absolute lymphocyte countOrd ered By: Red Sandoval on 03-29-2025 Lymphocytes Auto (Unsp spec) [#/Vol] 0.95 10*3/uL 0.83-4.51 [facility] Absolute neutrophil countOrd ered By: Red Sandoval on 03-29-2025 Neutrophils (Bld) [#/Vol] 4.6 10*3/uL 2.0-7.7 [facility] Automated lymphocyte count a s percentage of total leukocytesOrdered By: Red Sandoval on 03-29-2025 Lymphocytes/100 WBC Auto (Unsp spec) 15.0 % Low 19-41 [facility] Basophil percentageOrdered B y: Red Sandoval on 03-29-2025 Basophils/100 WBC (Bld) 0.3 % 0-1 [facility] Blood polychromasia detectio n by light microscopyOrdered By: Red Sandoval on 03-29-2025 Polychromasia LM Ql (Bld) 1+ [facility] CBC W/Diff, Automatedon - Anisocytosis Ql (Bld) 2+ Normal [facility] Comment on above: Performed By: #### L 3100.5400, L100.0100, L500.4050, L501.9985, L500.4100, L501.4021 #### [facility] [address] [place], [place], [id number] POLYCHROMASIA 1+ Normal [facility] Comment on above: Performed By: #### L 3100.5400, L100.0100, L500.4050, L501.9985, L500.4100, L501.4021 #### [facility] [address] [place], [place], [id number] (071) Eosinophil percentageOrdered By: Red Sandoval on 03-29-2025 Eosinophils/100 WBC (Bld) 3.9 % 0-5 [facility] Erythrocyte distribution wid th ratioOrdered By: Red Sandoval on 03-29-2025 Erythrocyte distribution width (RBC) [Ratio] 27.1 % High 11.6-14.6 [facility] Erythrocyte distribution wid th standard deviationOrdered By: Red Sandoval on 03-29-2025 Erythrocyte distribution width (RBC) [Ratio] 81.7 fl High 35.1-43.9 [facility] Hematocrit Auto (Bld) [Volum e fraction]Ordered By: Red Sandoval on 03-29-2025 Hematocrit (Bld) [Volume fraction] 31.9 % Low 37-47 [facility] Hemoglobin measurementOrdere d By: Red Sandoval on 03-29-2025 Hemoglobin (Bld) [Mass/Vol] 9.2 g/dL Low 12.0-15.0 [facility] Immature granulocytes/100 WB C Auto (Bld)Ordered By: Red Sandoval on 03-29-2025 Immature granulocytes/100 WBC (Bld) 1.100 % High 0.0-0.9 [facility] Comment on above: IG% - Immature Granu locytes (promyelocytes, myelocytes and metamyelocytes) > 1% indicates that a LEFT SHIFT is Present. Laboratory - Hematology and Cell countsOrdered By: Red Sandoval on 03-29-2025 Anisocytosis Ql (Bld) 2+ [facility] MCV (mean corpuscular volume ) determinationOrdered By: Rde Sandoval on 03-29-2025 MCV (RBC) [Entitic vol] 84.2 fL 81-99 [facility] Mean corpuscular hemoglobin (MCH) determinationOrdered By: Red Sandoval on 03-29-2025 MCH (RBC) [Entitic mass] 24.3 pg Low 27.0-32.0 [facility] Mean corpuscular hemoglobin concentration (MCHC) determinationOrdered By: Red Sandoval on 03-29-2025 MCHC (RBC) [Mass/Vol] 28.8 g/dL Low 32-36 [facility] Mean platelet volume determi nationOrdered By: Red Sandoval on 03-29-2025 Platelet mean volume (Bld) [Entitic vol] 9.6 fL 6.2-12.0 [facility] Monocyte percentageOrdered B y: Red Sandoval on 03-29-2025 Monocytes/100 WBC (Bld) 7.1 % 0-10 [facility] Neutrophil percentageOrdered By: Red Sandoval on 03-29-2025 Neutrophils/100 WBC (Bld) 72.6 % High 47-70 [facility] Nucleated red blood cell per centageOrdered By: Red Sandoval on 03-29-2025 Nucleated RBC/100 WBC (Bld) [Ratio] 0 % 0-5 [facility] Platelet countOrdered By: Yousuf Sandoval on 03-29-2025 Platelets (Bld) [#/Vol] 263 10*3/uL 150-450 [facility] RBC Auto (Bld) [#/Vol]Ordere d By: Red Sandoval on 03-29-2025 RBC (Bld) [#/Vol] 3.79 10*6/uL Low 4.2-5.4 [facility] White blood cell (WBC) count Ordered By: Red Sandoval on 03-29-2025 WBC (Bld) [#/Vol] 6.3 10*3/uL 4.4-11.0 [facility] Celiac AB,Comprehensiveon ANTIGLIADIN IGA 2 units Normal 0-19 [facility] Comment on above: Result Comment: Nega tive 0 - 19 Weak Positive 20 - 30 Moderate to Strong Positive >30 Performed By: #### L 3410.2350 #### [facility] [address] [place], [place], [id number] ANTIGLIADIN IGG 2 units Normal 0-19 [facility] Comment on above: Result Comment: Nega tive 0 - 19 Weak Positive 20 - 30 Moderate to Strong Positive >30 Performed By: #### L 3410.2350 #### [facility] [address] [place], [place], [id number] ENDOMYSIAL IGA Negative Normal Negative [facility] Comment on above: Performed By: #### L 3410.2350 #### [facility] [address] [place], [place], [id number] IMMUNOGLOB A QN 57 mg/dL Low 87-352 [facility] Comment on above: Result Comment: Perf ormed at: CB - [facility] [address] [id number] Feeder Driver: Preston Ashley PhD, Phone: [phone] Performed By: #### L 3410.2350 #### [facility] [address] [place], [place], [id number] tTG IGA <2 Normal 0-3 [facility] Comment on above: Result Comment: Nega tive 0 - 3 Weak Positive 4 - 10 Positive >10 Tissue Transglutaminase (tTG) has been identified as the endomysial antigen. Studies have demonstr- ated that endomysial IgA antibodies have over 99% specificity for gluten sensitive enteropathy. Performed By: #### L 3410.2350 #### [facility] [address] [place], [place], [id number] tTG IGG 3 U/mL Normal 0-5 [facility] Comment on above: Result Comment: Nega tive 0 - 5 Weak Positive 6 - 9 Positive >9 Performed By: #### L 3410.2350 #### [facility] [address] [place], [place], [id number] Folates, (Folic Acid)on 02-14 FOLATES 5.36 ng/mL Normal 4.60-34.80 [facility] Comment on above: Order Comment: DR.MA BAILEY GETS RESULTS FOR CBCD CMP LIPID ANDPROLACTIN DR. SANDOVAL GETS RESULTS FOR CBCD BMP AND TROPNIN Performed By: #### L 3100.5400, L100.0100, L500.4050, L501.9985, L500.4100, L501.4021 #### [facility] [address] [place], [place], [id number] No Panel InformationOrdered By: Glen Chapman on 03-08-2025 Tissue Transglutaminase IgG Ab 3 U/mL 0-5 [facility] Comment on above: Negative 0 - 5 Weak Positive 6 - 9 Positive >9 Oncology Visit Reporton 02-14 Oncology Visit Report [facility] [address] [facility] [place], [place] [address] OFFICE VISIT Date of Service: 03/08/25 0820 MR#: [id number] Acct: [id number] Name: HEIDI ANDREWS Rep #: [id number] : 1970 From: Glen Chapman MD Age/Sex: 55/F Location: [facility] Status: Signed HPI Subjective Date of Service 03/08/25 Chief Complaint Referred for Iron deficiency anemia. History of Present Illness 55 y.o.woman presented to PCP with SOB, fatigue, palpitations, she was found to Microcytic anemia with negative stool for occult blood on 03/05/2025. She is referred for management. Feels tired. Colonoscopy in Nov 2022 was negative. [facility] Medical History (Updated 03/08/25 @ 09:09 by [...] current occupational status: employed 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 Smoking Status: Former smoker alcohol intake: never [...] no lymphadenopathy (more content not included)... Normal [facility] Serum tissue transglutaminas e (tTG) IgA antibody assay (units/volume)Ordered By: Glen Chapman on 03-08-2025 tTG IgA Qn (S) <2 U/mL 0-3 [facility] Comment on above: Negative 0 - 3 Weak Positive 4 - 10 Positive >10 Tissue Transglutaminase (tTG) has been identified as the endomysial antigen. Studies have demonstr- ated that endomysial IgA antibodies have over 99% specificity for gluten sensitive enteropathy. Vitamin B12on 03-08-2025 Cobalamin (Vitamin B12) [Mass/Vol] 184 pg/mL Normal 180-914 [facility] Comment on above: Order Comment: DR.MA BAILEY GETS RESULTS FOR CBCD CMP LIPID ANDPROLACTIN DR. SANDOVAL GETS RESULTS FOR CBCD BMP AND TROPNIN Performed By: #### L 3100.5400, L100.0100, L500.4050, L501.9985, L500.4100, L501.4021 #### [facility] [address] [place], [address] Vitamin B12 ser/plasOrdered By: Glen Chapman on 03-08-2025 Cobalamin (Vitamin B12) [Mass/Vol] 184 pg/mL 180-914 [facility] Ferritinon 03-05-2025 Ferritin [Mass/Vol] 13 ng/mL Low 22-378 [facility] Comment on above: Order Comment: DR.MA BAILEY GETS RESULTS FOR CBCD CMP LIPID ANDPROLACTIN DR. SANDOVAL GETS RESULTS FOR CBCD BMP AND TROPNIN Performed By: #### L 3100.5400, L100.0100, L500.4050, L501.9985, L500.4100, L501.4021 #### [facility] [address] [place], [place], [id number] Ironon 03-05-2025 Iron [Mass/Vol] 33 ug/dL Low 50-170 [facility] Comment on above: Order Comment: DR.MA BAILEY GETS RESULTS FOR CBCD CMP LIPID ANDPROLACTIN DR. SANDOVAL GETS RESULTS FOR CBCD BMP AND TROPNIN Performed By: #### L 3100.5400, L100.0100, L500.4050, L501.9985, L500.4100, L501.4021 #### [facility] [address] [place], [place], [phone] Iron (Unsp spec) [Mass/Mass] Ordered By: Red Sandoval on 03-05-2025 Iron [Mass/Vol] 33 ug/dL Low 50-170 [facility] Iron measurement (mass/mass) Ordered By: Red Sandoval on 03-05-2025 Iron (Unsp spec) [Mass/Mass] 33 ug/dL Low 50-170 [facility] Serum or plasma ferritin darrel surement (mass/volume)Ordered By: Red Sandoval on 03-05-2025 Ferritin [Mass/Vol] 13 ng/mL Low 22-378 [facility] PROLACTIN 4465on 03-03-2025 PROLACTIN 62.0 ng/mL High 3.6-25.2 [facility] Comment on above: Result Comment: Perf ormed at: - [facility] [address] [id number] Feeder Driver: Preston Ashley PhD, Phone: [phone] Performed By: #### L 3100.5400, L100.0100, L500.4050, L501.9985, L500.4100, L501.4021 #### [facility] [address] [facility] [place], [address] Absolute lymphocyte countOrd ered By: Red Sandoval on 03-01-2025 Lymphocytes Auto (Unsp spec) [#/Vol] 0.63 10*3/uL Low 0.83-4.51 [facility] Absolute neutrophil countOrd ered By: Red Sandoval on 03-01-2025 Neutrophils (Bld) [#/Vol] 3.7 10*3/uL 2.0-7.7 [facility] Anion gap in Serum or Plasma Ordered By: Red Sandoval on 03-01-2025 Anion gap [Moles/Vol] 14 mmol/L 5-15 [facility] Automated lymphocyte count a s percentage of total leukocytesOrdered By: Red Sandoval on 03-01-2025 Lymphocytes/100 WBC Auto (Unsp spec) 12.6 % Low 19- [facility] BUN/creatinine ratioOrdered By: Red Sandoval on 03-01-2025 Urea nitrogen/Creatinine [Mass ratio] 11.5 mg/mg 10-20 [facility] Basophil percentageOrdered B y: Red Sandoval on 03-01-2025 Basophils/100 WBC (Bld) 0.4 % 0-1 [facility] Bilirubin, totalOrdered By: Red Sandoval on 03-01-2025 Bilirubin [Mass/Vol] 0.57 mg/dL 0.00-1.30 [facility] CBC W/Diff, Automatedon 02-13 Anisocytosis Ql (Bld) 2+ Normal [facility] Comment on above: Performed By: #### L 3100.5400, L100.0100, L500.4050, L501.9985, L500.4100, L501.4021 #### [facility] [address] [place], [address] HYPOCHROMASIA 1+ Normal [facility] Comment on above: Performed By: #### L 3100.5400, L100.0100, L500.4050, L501.9985, L500.4100, L501.4021 #### [facility] [address] [place], [place], [phone] PLT EST ADEQUATE Normal ADEQ [facility] Comment on above: Performed By: #### L 3100.5400, L100.0100, L500.4050, L501.9985, L500.4100, L501.4021 #### [facility] [address] [place], [place], [id number] Calculated very low density lipoprotein (VLDL) cholesterol measurementOrdered By: Red Sandoval on 03-01-2025 Calculated very low density lipoprotein (VLDL) cholesterol measurement 27 mg/dL - [facility] VLDL Cholesterol 27 mg/dL - [facility] Carbon dioxide, total [Moles /volume] in Central venous bloodOrdered By: Red Sandoval on 03-01-2025 CO2 [Moles/Vol] 25.1 mmol/L 21.0-32.0 [facility] Chloride assayOrdered By: Yousuf Sandoval on 03-01-2025 Chloride [Moles/Vol] 99 mmol/L 98-108 [facility] Comprehensive Metabolic Prof ilon 03-01-2025 Albumin [Mass/Vol] 4.2 g/dL Normal 3.5-5.0 [facility] Comment on above: Order Comment: DR.MA BAILEY GETS RESULTS FOR CBCD CMP LIPID ANDPROLACTIN DR. SANDOVAL GETS RESULTS FOR CBCD BMP AND TROPNIN Performed By: #### L 3100.5400, L100.0100, L500.4050, L501.9985, L500.4100, L501.4021 #### [facility] [address] [place], [address] Albumin/Globulin [Mass ratio] 1.6 {ratio} Normal 0.9-2.4 [facility] Comment on above: Order Comment: DR.MA BAILEY GETS RESULTS FOR CBCD CMP LIPID ANDPROLACTIN DR. SANDOVAL GETS RESULTS FOR CBCD BMP AND TROPNIN Performed By: #### L 3100.5400, L100.0100, L500.4050, L501.9985, L500.4100, L501.4021 #### [facility] [address] [place], [address] ALK PHOS 190 U/L High 35-104 [facility] Comment on above: Order Comment: DR.MA BAILEY GETS RESULTS FOR CBCD CMP LIPID ANDPROLACTIN DR. SANDOVAL GETS RESULTS FOR CBCD BMP AND TROPNIN Performed By: #### L 3100.5400, L100.0100, L500.4050, L501.9985, L500.4100, L501.4021 #### [facility] [address] [place], [address] ALT [Catalytic activity/Vol] 67 U/L High <=34 [facility] Comment on above: Order Comment: DR.MA BAILEY GETS RESULTS FOR CBCD CMP LIPID ANDPROLACTIN DR. SANDOVAL GETS RESULTS FOR CBCD BMP AND TROPNIN Performed By: #### L 3100.5400, L100.0100, L500.4050, L501.9985, L500.4100, L501.4021 #### [facility] [address] [place], [address] AST [Catalytic activity/Vol] 86 U/L High <=31 [facility] Comment on above: Order Comment: DR.MA BAILEY GETS RESULTS FOR CBCD CMP LIPID ANDPROLACTIN DR. SANDOVAL GETS RESULTS FOR CBCD BMP AND TROPNIN Performed By: #### L 3100.5400, L100.0100, L500.4050, L501.9985, L500.4100, L501.4021 #### [facility] [address] [place], [address] Bilirubin [Mass/Vol] 0.57 mg/dL Normal 0.00-1.30 [facility] Comment on above: Order Comment: DR.MA BAILEY GETS RESULTS FOR CBCD CMP LIPID ANDPROLACTIN DR. SANDOVAL GETS RESULTS FOR CBCD BMP AND TROPNIN Performed By: #### L 3100.5400, L100.0100, L500.4050, L501.9985, L500.4100, L501.4021 #### [facility] [address] [place], [address] BUN/CRE 11.5 RATIO Normal 10-20 [facility] Comment on above: Order Comment: DR.MA BAILEY GETS RESULTS FOR CBCD CMP LIPID ANDPROLACTIN DR. SANDOVAL GETS RESULTS FOR CBCD BMP AND TROPNIN Performed By: #### L 3100.5400, L100.0100, L500.4050, L501.9985, L500.4100, L501.4021 #### [facility] [address] [place], [address] Calcium [Mass/Vol] 8.9 mg/dL Normal 7.6-11.0 [facility] Comment on above: Order Comment: DR.MA BAILEY GETS RESULTS FOR CBCD CMP LIPID ANDPROLACTIN DR. SANDOVAL GETS RESULTS FOR CBCD BMP AND TROPNIN Performed By: #### L 3100.5400, L100.0100, L500.4050, L501.9985, L500.4100, L501.4021 #### [facility] [address] [place], [address] Chloride [Moles/Vol] 99 mmol/L Normal 98-108 [facility] Comment on above: Order Comment: DR.MA BAILEY GETS RESULTS FOR CBCD CMP LIPID ANDPROLACTIN DR. SANDOVAL GETS RESULTS FOR CBCD BMP AND TROPNIN Performed By: #### L 3100.5400, L100.0100, L500.4050, L501.9985, L500.4100, L501.4021 #### [facility] [address] [place], [address] CO2 [Moles/Vol] 25.1 mmol/L Normal 21.0-32.0 [facility] Comment on above: Order Comment: DR.MA BAILEY GETS RESULTS FOR CBCD CMP LIPID ANDPROLACTIN DR. SANDOVAL GETS RESULTS FOR CBCD BMP AND TROPNIN Performed By: #### L 3100.5400, L100.0100, L500.4050, L501.9985, L500.4100, L501.4021 #### [facility] [address] [place], [address] Creatinine [Mass/Vol] 1.04 mg/dL Normal 0.70-1.20 [facility] Comment on above: Order Comment: DR.MA BAILEY GETS RESULTS FOR CBCD CMP LIPID ANDPROLACTIN DR. SANDOVAL GETS RESULTS FOR CBCD BMP AND TROPNIN Performed By: #### L 3100.5400, L100.0100, L500.4050, L501.9985, L500.4100, L501.4021 #### [facility] [address] [place], [address] GAP 14 Normal 5-15 [facility] Comment on above: Order Comment: DR.MA BAILEY GETS RESULTS FOR CBCD CMP LIPID ANDPROLACTIN DR. SANDOVAL GETS RESULTS FOR CBCD BMP AND TROPNIN Performed By: #### L 3100.5400, L100.0100, L500.4050, L501.9985, L500.4100, L501.4021 #### [facility] [address] [place], [address] GFR/1.73 sq M.predicted among non-blacks MDRD (S/P/Bld) [Vol rate/Area] 64 mL/min/{1.73_m2} Normal >60 [facility] Comment on above: Order Comment: DR.MA BAILEY GETS RESULTS FOR CBCD CMP LIPID ANDPROLACTIN DR. SANDOVAL GETS RESULTS FOR CBCD BMP AND TROPNIN Result Comment: mL/m in/1.73m2 CKD-EPI Creatinine Equation (2020) Performed By: #### L 3100.5400, L100.0100, L500.4050, L501.9985, L500.4100, L501.4021 #### [facility] [address] [place], [address] Globulin (S) [Mass/Vol] 2.6 g/dL Normal 2.2-4.2 [facility] Comment on above: Order Comment: DR.MA BAILEY GETS RESULTS FOR CBCD CMP LIPID ANDPROLACTIN DR. SANDOVAL GETS RESULTS FOR CBCD BMP AND TROPNIN Performed By: #### L 3100.5400, L100.0100, L500.4050, L501.9985, L500.4100, L501.4021 #### [facility] [address] [place], [address] Glucose [Mass/Vol] 158 mg/dL High 70-99 [facility] Comment on above: Order Comment: DR.MA BAILEY GETS RESULTS FOR CBCD CMP LIPID ANDPROLACTIN DR. SANDOVAL GETS RESULTS FOR CBCD BMP AND TROPNIN Performed By: #### L 3100.5400, L100.0100, L500.4050, L501.9985, L500.4100, L501.4021 #### [facility] [address] [place], [address] Potassium [Moles/Vol] 4.2 mmol/L Normal 3.3-5.1 [facility] Comment on above: Order Comment: DR.MA BAILEY GETS RESULTS FOR CBCD CMP LIPID ANDPROLACTIN DR. SANDOVAL GETS RESULTS FOR CBCD BMP AND TROPNIN Performed By: #### L 3100.5400, L100.0100, L500.4050, L501.9985, L500.4100, L501.4021 #### [facility] [address] [place], [address] Sodium [Moles/Vol] 138 mmol/L Normal 133-145 [facility] Comment on above: Order Comment: DR.MA BAILEY GETS RESULTS FOR CBCD CMP LIPID ANDPROLACTIN DR. SANDOVAL GETS RESULTS FOR CBCD BMP AND TROPNIN Performed By: #### L 3100.5400, L100.0100, L500.4050, L501.9985, L500.4100, L501.4021 #### [facility] [address] [place], [address] T PROT 6.8 g/dL Normal 5.9-8.4 [facility] Comment on above: Order Comment: DR.MA BAILEY GETS RESULTS FOR CBCD CMP LIPID ANDPROLACTIN DR. SANDOVAL GETS RESULTS FOR CBCD BMP AND TROPNIN Performed By: #### L 3100.5400, L100.0100, L500.4050, L501.9985, L500.4100, L501.4021 #### [facility] [address] [place], [address] Urea nitrogen [Mass/Vol] 12 mg/dL Normal 4-19 [facility] Comment on above: Order Comment: DR.MA BAILEY GETS RESULTS FOR CBCD CMP LIPID ANDPROLACTIN DR. SANDOVAL GETS RESULTS FOR CBCD BMP AND TROPNIN Performed By: #### L 3100.5400, L100.0100, L500.4050, L501.9985, L500.4100, L501.4021 #### [facility] [address] [place], [address] Eosinophil percentageOrdered By: Red Sandoval on 03-01-2025 Eosinophils/100 WBC (Bld) 4.0 % 0-5 [facility] Erythrocyte distribution wid th (RBC) [Ratio]Ordered By: Red Sandoval on 03-01-2025 Erythrocyte distribution width (RBC) [Entitic vol] 55.5 fL High 35.1-43.9 [facility] Erythrocyte distribution wid th ratioOrdered By: Red Sandoval on 03-01-2025 Erythrocyte distribution width (RBC) [Ratio] 20.9 % High 11.6-14.6 [facility] Erythrocyte distribution wid th standard deviationOrdered By: Red Sandoval on 03-01-2025 Erythrocyte distribution width (RBC) [Ratio] 55.5 fl High 35.1-43.9 [facility] GFR/1.73 sq M.predicted sonny g non-blacks MDRD (S/P/Bld) [Vol rate/Area]Ordered By: Red Sandoval on 03-01-2025 Estimated GFR (MDRD) Non-Af Amer 64 >60 [facility] Comment on above: mL/min/1.73m2 CKD-EP I Creatinine Equation (2020) Glomerular filtration rate ( GFR) estimation/1.73 sq m using serum, plasma, or whole bOrdered By: Red Sandoval on 03-01-2025 GFR/1.73 sq M.predicted among non-blacks MDRD (S/P/Bld) [Vol rate/Area] 64 mL/min/{1.73_m2} >60 [facility] Comment on above: mL/min/1.73m2 CKD-EP I Creatinine Equation (2020) Hematocrit Auto (Bld) [Volum e fraction]Ordered By: Red Sandoval on 03-01-2025 Hematocrit (Bld) [Volume fraction] 26.7 % Low 37-47 [facility] Hemoglobin A1con 03-01-2025 HbA1c (Bld) [Mass fraction] 7.6 % High <=5.6 [facility] Comment on above: Result Comment: Norm al < 5.7 % Prediabetic 5.7 - 6.4 % Diabetic >or= 6.5 % Please note range changes. Performed By: #### L 3100.5400, L100.0100, L500.4050, L501.9985, L500.4100, L501.4021 #### [facility] [address] [place], [address] Hemoglobin A1c percentageOrd ered By: Red Sandoval on 03-01-2025 HbA1c (Bld) [Mass fraction] 7.6 % High <5.7 [facility] Comment on above: Normal < 5.7 % Predi abetic 5.7 - 6.4 % Diabetic >or= 6.5 % Please note range changes. Hemoglobin measurementOrdere d By: Red Sandoval on 03-01-2025 Hemoglobin (Bld) [Mass/Vol] 7.2 g/dL Low 12.0-15.0 [facility] Hypochromatic red blood cell detectionOrdered By: Red Sandoval on 03-01-2025 Hypochromia Ql (Bld) 1+ [facility] Hypochromia Ql (Bld)Ordered By: Red Sandoval on 03-01-2025 Hypochromasia 1+ [facility] Immature granulocytes/100 WB C Auto (Bld)Ordered By: Red Sandoval on 03-01-2025 Immature granulocytes/100 WBC (Bld) 1.200 % High 0.0-0.9 [facility] Comment on above: IG% - Immature Granu locytes (promyelocytes, myelocytes and metamyelocytes) > 1% indicates that a LEFT SHIFT is Present. L501.4021on 03-01-2025 Trop T High Sen 14 ng/L Normal <=14 [facility] Comment on above: Order Comment: DR.MA BAILEY GETS RESULTS FOR CBCD CMP LIPID ANDPROLACTIN DR. SANDOVAL GETS RESULTS FOR CBCD BMP AND TROPNIN Performed By: #### L 3100.5400, L100.0100, L500.4050, L501.9985, L500.4100, L501.4021 #### [facility] [address] [place], [place], [address] LDL calc ser/plasOrdered By: Red Sandoval on 03-01-2025 Cholesterol in LDL [Mass/Vol] 117 mg/dL [facility] Comment on above: Zmcmtrkagv=121-216 m g/dL & Higher Wfla=102 mg/dL or greater LDL Cholesterol, Calculated 117 mg/dL [facility] Comment on above: Pfxnrrfife=449-511 m g/dL & Higher Yifq=095 mg/dL or greater Laboratory - Chemistry and C hemistry - challengeOrdered By: Red Sandoval on 03-01-2025 AST [Catalytic activity/Vol] 86 U/L High <32 [facility] - Hematology and Cell countsOrdered By: Red Sandoval on 03-01-2025 Anisocytosis Ql (Bld) 2+ [facility] Lipid Profileon 03-01-2025 CHOL:HDL 3.89 Normal [facility] Comment on above: Order Comment: DR.MA BAILEY GETS RESULTS FOR CBCD CMP LIPID ANDPROLACTIN DR. SANDOVAL GETS RESULTS FOR CBCD BMP AND TROPNIN Performed By: #### L 3100.5400, L100.0100, L500.4050, L501.9985, L500.4100, L501.4021 #### [facility] [address] [place], [address] Cholesterol [Mass/Vol] 194 mg/dL Normal <=200 [facility] Comment on above: Order Comment: DR.MA BAILEY GETS RESULTS FOR CBCD CMP LIPID ANDPROLACTIN DR. SANDOVAL GETS RESULTS FOR CBCD BMP AND TROPNIN Result Comment: Chol esterol level, Desirable <200 mg/dL Borderline high cholesterol 200-239 mg/dL High cholesterol >=240 mg/dL Recommendations of the NCEP Adult Treatment Panel for the following risk-cutoff thresholds for the [place] population. Performed By: #### L 3100.5400, L100.0100, L500.4050, L501.9985, L500.4100, L501.4021 #### [facility] [address] [place], [address] Cholesterol in HDL [Mass/Vol] 50 mg/dL Normal [facility] Comment on above: Order Comment: [...] 3100.5400, L100.0100, L500.4050, L501.9985, L500.4100, L501.4021 #### [facility] [address] [place], [address] Cholesterol in LDL [Mass/Vol] 117 mg/dL Normal [facility] Comment on above: Order Comment: DR.MA BAILEY GETS RESULTS FOR CBCD CMP LIPID ANDPROLACTIN DR. SANDOVAL GETS RESULTS FOR CBCD BMP AND TROPNIN Result Comment: Bord ojqzyl=074-801 mg/dL Higher Jjte=813 mg/dL or greater Performed By: #### L 3100.5400, L100.0100, L500.4050, L501.9985, L500.4100, L501.4021 #### [facility] [address] [place], [address] Cholesterol in VLDL [Mass/Vol] 27 mg/dL Normal 5-40 [facility] Comment on above: Order Comment: DR.MA BAILEY GETS RESULTS FOR CBCD CMP LIPID ANDPROLACTIN DR. SANDOVAL GETS RESULTS FOR CBCD BMP AND TROPNIN Performed By: #### L 3100.5400, L100.0100, L500.4050, L501.9985, L500.4100, L501.4021 #### [facility] [address] [facility] [place], [address] Triglyceride [Mass/Vol] 134 mg/dL Normal [facility] Comment on above: Order [...] 3100.5400, L100.0100, L500.4050, L501.9985, L500.4100, L501.4021 #### [facility] [address] [facility] [place], [place], [id number] Lymphocytes Auto (Unsp spec) [#/Vol]Ordered By: Red Sandoval on 03-01-2025 Lymphocytes (Bld) [#/Vol] 0.63 10*3/uL Low 0.83-4.51 [facility] Lymphocytes/100 WBC Auto (Un sp spec)Ordered By: Red Sandoval on 03-01-2025 Lymphocytes/100 WBC (Bld) 12.6 % Low 19-41 [facility] MCV (mean corpuscular volume ) determinationOrdered By: Red Sandoval on 03-01-2025 MCV (RBC) [Entitic vol] 75.4 fL Low 81-99 [facility] Mean corpuscular hemoglobin (MCH) determinationOrdered By: Red Sandoval on 03-01-2025 MCH (RBC) [Entitic mass] 20.3 pg Low 27.0-32.0 [facility] Mean corpuscular hemoglobin concentration (MCHC) determinationOrdered By: Red Sandoval on 03-01-2025 MCHC (RBC) [Mass/Vol] 27.0 g/dL Low 32-36 [facility] Mean platelet volume determi nationOrdered By: Red Sandoval on 03-01-2025 Platelet mean volume (Bld) [Entitic vol] 10.5 fL 6.2-12.0 [facility] Monocyte percentageOrdered B y: Red Sandoval on 03-01-2025 Monocytes/100 WBC (Bld) 8.0 % 0-10 [facility] Neutrophil percentageOrdered By: Red Sandoval on 03-01-2025 Neutrophils/100 WBC (Bld) 73.8 % High 47-70 [facility] Nucleated red blood cell per centageOrdered By: Red Sandoval on 03-01-2025 Nucleated RBC/100 WBC (Bld) [Ratio] 0 % 0-5 [facility] Platelet countOrdered By: Yousuf Sandoval on 03-01-2025 Platelet Count See comment 150-450 [facility] Comment on above: Please note: [...] 03-01-2025 Platelets LM Ql (Bld) ADEQUATE ADEQ [facility] Platelets LM Ql (Bld)Ordered By: Red Sandoval on 03-01-2025 Platelet Estimate [facility] Potassium (Unsp spec) [Mass/ Vol]Ordered By: Red Sandoval on 03-01-2025 Potassium [Moles/Vol] 4.2 mmol/L 3.3-5.1 [facility] Potassium measurement (mass/ volume)Ordered By: Red Sandoval on 03-01-2025 Potassium (Unsp spec) [Mass/Vol] 4.2 mmol/L 3.3-5.1 [facility] Prolactin [Mass/Vol]Ordered By: Red Sandoval on 03-01-2025 Prolactin 62.0 ng/mL High 3.6-25.2 [facility] Comment on above: Performed at: [address] [id number] Director: Preston Ashley PhD, Phone: [phone] RBC Auto (Bld) [#/Vol]Ordere d By: Red Sandoval on 03-01-2025 RBC (Bld) [#/Vol] 3.54 10*6/uL Low 4.2-5.4 [facility] Screening total cholesterol/ high density lipoprotein (HDL) cholesterol ratioOrdered By: Red Sandoval on 03-01-2025 Cholesterol.total/Choles terol in HDL [Mass ratio] 3.89 {ratio} [facility] Serum creatinine measurement (mass/volume)Ordered By: Red Sandoval on 03-01-2025 Creatinine [Mass/Vol] 1.04 mg/dL 0.70-1.20 [facility] Serum globulin measurementOr dered By: Red Sandoval on 03-01-2025 Globulin (S) [Mass/Vol] 2.6 g/dL 2.2-4.2 [facility] Serum glucose measurement (m ass/volume)Ordered By: Red Sandoval on 03-01-2025 Glucose [Mass/Vol] 158 mg/dL High 70-99 [facility] Serum or plasma alanine cueto otransferase (ALT) measurementOrdered By: Red Sandoval on 03-01-2025 ALT [Catalytic activity/Vol] 67 U/L High <35 [facility] Serum or plasma albumin sandy urement (mass/volume)Ordered By: Red Sandoval on 03-01-2025 Albumin [Mass/Vol] 4.2 g/dL 3.5-5.0 [facility] Serum or plasma albumin/glob ulin mass ratioOrdered By: Red Sandoval on 03-01-2025 Albumin/Globulin [Mass ratio] 1.6 {ratio} 0.9-2.4 [facility] Serum or plasma alkaline rebecca sphatase measurementOrdered By: Red Sandoval on 03-01-2025 ALP [Catalytic activity/Vol] 190 U/L High 35-104 [facility] Serum or plasma calcium sandy urement (mass/volume)Ordered By: Red Sandoval on 03-01-2025 Calcium [Mass/Vol] 8.9 mg/dL 7.6-11.0 [facility] Serum or plasma cholesterol in HDL measurement (mass/volume)Ordered By: Red Sandoval on 03-01-2025 Cholesterol in HDL [Mass/Vol] 50 mg/dL >40 [facility] Comment on above: National Cholesterol Education Program (NCEP) guidelines:<40 mg/dL: Low HDL-cholesterol (major risk factor for CHD)>= 60 mg/dL: High HDL-cholesterol (negative risk factor for CHD)HDL-cholesterol is affected by a number of factors, e.g. smoking, exercise, hormones, sex and age. Serum or plasma cholesterol measurement (mass/volume)Ordered By: Red Sandoval on 03-01-2025 Cholesterol [Mass/Vol] 194 mg/dL <201 [facility] Comment on above: Cholesterol level, D esirable <200 mg/dLBorderline high cholesterol 200-239 mg/dLHigh cholesterol >=240 mg/dLRecommendations of the NCEP Adult Treatment Panel for the following risk-cutoff thresholds for the [place] population. Serum or plasma prolactin me asurement (mass/volume)Ordered By: Red Sandoval on 03-01-2025 Prolactin [Mass/Vol] 62.0 ng/mL High 3.6-25.2 [facility] Comment on above: Performed at: [address] Director: Preston Ashley PhD, Phone: [phone] Serum or plasma urea nitroge n measurement (mass/volume)Ordered By: Red Sandoval on 03-01-2025 Urea nitrogen [Mass/Vol] 12 mg/dL 4-19 [facility] Sodium levelOrdered By: Red Sandoval on 03-01-2025 Sodium [Moles/Vol] 138 mmol/L 133-145 [facility] Total proteinOrdered By: Senait Sandoval on 03-01-2025 Protein [Mass/Vol] 6.8 g/dL 5.9-8.4 [facility] Triglycerides measurementOrd ered By: Red Sandoval on 03-01-2025 Triglyceride [Mass/Vol] 134 mg/dL <199 [facility] Comment on above: The drugs N-Acetylcy steine and Metamizole may falsely depress this assay. Normal range: <150 mg/dLBorderline High: 150-199 mg/dLHigh: 200-499 mg/dLVery High: >500 mg/dL Troponin T.cardiac High sens itivity method [Mass/Vol]Ordered By: Red Sandoval on 03-01-2025 Troponin T High Sensitivity 14 ng/L <14 [facility] Troponin T.cardiac [Mass/vol ume] in Serum or Plasma by High sensitivity methodOrdered By: Red Sandoval on 03-01-2025 Troponin T.cardiac High sensitivity method [Mass/Vol] 14 ng/L <14 [facility] White blood cell (WBC) count Ordered By: Red Sandoval on 03-01-2025 WBC (Bld) [#/Vol] 5.0 10*3/uL 4.4-11.0 [facility] Urgent Care Visit Reporton 1 12-08-2023 Urgent Care Visit Report [facility] [address] , [address] [place] [address] OFFICE VISIT Date of Service: 10/08/24 MR#: [id number] Acct: [id number] Name: HEIDI ANDREWS Rep #: [id number] : 1970 Provider: DELILAH hansen Age/Sex: 54/F Location: [facility] Status: Signed Intake Vital Signs 12/01/22 09:27 [...] (Updated 10/08/24 @ 08:54 by Enrique Hwang TRANSMISSION ASSEMBLER, TRANSMISSION ASSEMBLER-C) Wears glasses Thyroid disease Diabetes Anemia Former [...] moist mu (more content not included)... Normal [facility] Cervical or vagninal specime n microscopic examination by cytology stain (reported asOrdered By: Patricia Thompson on 02-07-2024 Cytology report Cyto stain Doc (Cvx/Vag) Comment . [facility] Comment on above: The Pap [...] DNA Probe+sig amp Ql (Cvx) Negative Negative [facility] Comment on above: This nucleic acid am plification test detects fourteen high-risk HPV types (16,18,31,33,35,39,45,51,52,56,58,59,66,68)without differentiation.Performed at: [facility] [id number] Director: Cierra Chew MD, Phone: [phone] at: =[facility] - [facility] [address] [id number] Director: Cierra Chew MD, Phone: [phone] Laboratory - CytologyOrdered By: Patricia Thompson on 02-07-2024 Assembly Line Inspector Cyto stain Nom (Cvx/Vag) [ID] Comment . [facility] Comment on above: Pema Kincaid, Cyto technologist (ASCP) Laboratory - Miscellaneous t estsOrdered By: Patricia Thompson on 02-07-2024 Service comment (Unsp spec) [Interp] . . [facility] Thin prep Papanicolaou smear with manual screeningOrdered By: Patricia Thompson on 02-07-2024 Thin prep Papanicolaou smear with manual screening Comment . [facility] Comment on above: NEGATIVE FOR INTRAEP ITHELIAL LESION OR MALIGNANCY. This liquid based Th inPrep(R) pap test was screened withthe use of an image guided system. Basophil percentageOrdered B y: Red Sandoval on 01-19-2024 Chloride [Moles/Vol] 104 mmol/L 98-107 [facility] Cholesterol [Mass/Vol] 197 mg/dL <200 [facility] Comment on above: <200 mg/dL Desirable 200-240 mg/dL Borderline >240 mg/dL High Risk Glucose [Mass/Vol] 108 mg/dL 74-106 [facility] Comment on above: Fasting Glucose resu lt from 100 to 125 mg/dL suggests IMPAIRED HOMEOSTASIS per A.D.A. criteria. Potassium [Moles/Vol] 4.2 mmol/L 3.5-5.1 [facility] Sodium [Moles/Vol] 136 mmol/L 136-145 [facility] Triglyceride [Mass/Vol] 132 mg/dL <199 [facility] Comment on above: The drugs N-Acetylcy steine and Metamizole may falsely depress this assay.Serum Triglycerides Reference Interval Normal <150 mg/dL Borderline high 150 - 199 mg/dL High 200 - 499 mg/dL Very High > or = 500 mg/dL Laboratory - Chemistry and C hemistry - challengeOrdered By: Red Sandoval on 01-19-2024 Cholesterol in HDL [Mass/Vol] 43 mg/dL >40 [facility] Comment on above: The drugs N-Acetylcy steine and Metamizole may falsely depress this assay. Reference Range HDL <40 mg/dL Low HDL Cholesterol HDL >or= 60 mg/dL High HDL Cholesterol Cholesterol in LDL [Mass/Vol] 128 mg/dL 0-130 [facility] CO2 [Moles/Vol] 27.0 mmol/L 21.0-32.0 [facility] Urea nitrogen/Creatinine [Mass ratio] 10.7 mg/mg 10-20 [facility] No Panel InformationOrdered By: Red Sandoval on 01-19-2024 Estimated GFR (MDRD) Amer 81 mL/min >60 [facility] Comment on above: GFR Calc Estimated GFR (MDRD) Non-Af Amer 67 mL/min >60 [facility] Comment on above: Non- GFR Calc Free Triiodothyronine (T3) pg/dL 2.0 pg/mL 2.18-3.98 [facility] VLDL Cholesterol 26 mg/dL 5-40 [facility] Serum or plasma calcium sandy urement (mass/volume)Ordered By: Red Sandoval on 01-19-2024 Calcium [Mass/Vol] 8.9 mg/dL 8.5-10.1 [facility] Serum or plasma creatinine m easurement (mass/volume)Ordered By: Red Sandoval on 01-19-2024 Creatinine [Mass/Vol] 0.93 mg/dL 0.55-1.02 [facility] Comment on above: The validity of the calculated GFR & GFRAA in patients over 70 years has not been determined. Clinical correlation is essential. Serum or plasma thyroid stim ulating hormone (TSH) measurement (units/volume)Ordered By: Red Sandoval on 01-19-2024 TSH Qn 2.60 uIU/mL 0.358-3.74 [facility] Serum or plasma urea nitroge n measurement (mass/volume)Ordered By: Red Sandoval on 01-19-2024 Urea nitrogen [Mass/Vol] 10 mg/dL 7-18 [facility] Thin prep Papanicolaou smear with manual screeningOrdered By: Red Sandoval on 01-19-2024 Thin prep Papanicolaou smear with manual screening 5 5-15 [facility] Thin prep Papanicolaou smear with manual screening 1.33 ng/dL 0.76-1.46 [facility] Basophil percentageOrdered B y: Red Sandoval on 07-26-2023 Chloride [Moles/Vol] 104 mmol/L 98-107 [facility] Cholesterol [Mass/Vol] 186 mg/dL <200 [facility] Comment on above: <200 mg/dL Desirable 200-240 mg/dL Borderline >240 mg/dL High Risk Glucose [Mass/Vol] 121 mg/dL 74-106 [facility] Comment on above: Fasting Glucose resu lt from 100 to 125 mg/dL suggests IMPAIRED HOMEOSTASIS per A.D.A. criteria. Potassium [Moles/Vol] 3.8 mmol/L 3.5-5.1 [facility] Sodium [Moles/Vol] 139 mmol/L 136-145 [facility] Triglyceride [Mass/Vol] 198 mg/dL <199 [facility] Comment on above: The drugs N-Acetylcy steine and Metamizole may falsely depress this assay.Serum Triglycerides Reference Interval Normal <150 mg/dL Borderline high 150 - 199 mg/dL High 200 - 499 mg/dL Very High > or = 500 mg/dL Laboratory - Chemistry and C hemistry - challengeOrdered By: Red Sandoval on 07-26-2023 CO2 [Moles/Vol] 27.0 mmol/L 21.0-32.0 [facility] Urea nitrogen/Creatinine [Mass ratio] 10.4 mg/mg 10-20 [facility] No Panel InformationOrdered By: Red Sandoval on 07-26-2023 Estimated GFR (MDRD) Amer 79 mL/min >60 [facility] Comment on above: GFR Calc Estimated GFR (MDRD) Non-Af Amer 65 mL/min >60 [facility] Comment on above: Non- GFR Calc Thyroid Stimulating Hormone (TSH) 1.67 uIU/mL 0.358-3.74 [facility] Serum or plasma calcium sandy urement (mass/volume)Ordered By: Red Sandoval on 07-26-2023 Calcium [Mass/Vol] 8.8 mg/dL 8.5-10.1 [facility] Serum or plasma cholesterol in HDL measurement (mass/volume)Ordered By: Red Sandoval on 07-26-2023 Cholesterol in HDL [Mass/Vol] 36 mg/dL >40 [facility] Comment on above: The drugs N-Acetylcy steine and Metamizole may falsely depress this assay. Reference Range HDL <40 mg/dL Low HDL Cholesterol HDL >or= 60 mg/dL High HDL Cholesterol Serum or plasma cholesterol in VLDL measurement (mass/volume)Ordered By: Red Sandoval on 07-26-2023 Cholesterol in VLDL [Mass/Vol] 40 mg/dL 5-40 [facility] Serum or plasma creatinine m easurement (mass/volume)Ordered By: Red Sandoval on 07-26-2023 Creatinine [Mass/Vol] 0.96 mg/dL 0.55-1.02 [facility] Comment on above: The validity of the calculated GFR & GFRAA in patients over 70 years has not been determined. Clinical correlation is essential. Serum or plasma low density lipoprotein (LDL) cholesterol measurement (mass/volume)Ordered By: Red Sandoval on 07-26-2023 Cholesterol in LDL [Mass/Vol] 110 mg/dL 0-130 [facility] Serum or plasma urea nitroge n measurement (mass/volume)Ordered By: Red Sandoval on 07-26-2023 Urea nitrogen [Mass/Vol] 10 mg/dL 7-18 [facility] Thin prep Papanicolaou smear with manual screeningOrdered By: Red Sandoval on 07-26-2023 Thin prep Papanicolaou smear with manual screening 8 5-15 [facility] Whole blood hemoglobin A1c/t otal hemoglobin ratio (mass fraction)Ordered By: Red Sandoval on 07-26-2023 HbA1c (Bld) [Mass fraction] 5.6 % 3.8-5.6 [facility] Comment on above: Normal < 5.7 % Predi abetic 5.7 - 6.4 % Diabetic >or= 6.5 % Please note range changes. Basophil percentageOrdered B y: Dr. Sandoval on 01-25-2023 Chloride [Moles/Vol] 105 mmol/L 98-107 [facility] Cholesterol [Mass/Vol] 194 mg/dL <200 [facility] Comment on above: <200 mg/dL Desirable 200-240 mg/dL Borderline >240 mg/dL High Risk Glucose [Mass/Vol] 123 mg/dL 74-106 [facility] Comment on above: Fasting Glucose resu lt from 100 to 125 mg/dL suggests IMPAIRED HOMEOSTASIS per A.D.A. criteria. Potassium [Moles/Vol] 3.6 mmol/L 3.5-5.1 [facility] Sodium [Moles/Vol] 140 mmol/L 136-145 [facility] Triglyceride [Mass/Vol] 166 mg/dL <199 [facility] Comment on above: The drugs N-Acetylcy steine and Metamizole may falsely depress this assay.Serum Triglycerides Reference Interval Normal <150 mg/dL Borderline high 150 - 199 mg/dL High 200 - 499 mg/dL Very High > or = 500 mg/dL Laboratory - Chemistry and C hemistry - challengeOrdered By: Dr. Sandoval on 01-25-2023 CO2 [Moles/Vol] 25.0 mmol/L 21.0-32.0 [facility] Free T4 [Mass/Vol] 1.31 ng/dL 0.76-1.46 [facility] Urea nitrogen/Creatinine [Mass ratio] 12.0 mg/mg 10-20 [facility] No Panel InformationOrdered By: Dr. Sandoval on 01-25-2023 Estimated GFR (MDRD) Amer 58 mL/min >60 [facility] Comment on above: GFR Calc Estimated GFR (MDRD) Non-Af Amer 48 mL/min >60 [facility] Comment on above: Non- GFR Calc Free Triiodothyronine (T3) pg/dL 1.5 pg/mL 2.18-3.98 [facility] Thyroid Stimulating Hormone (TSH) 1.52 uIU/mL 0.358-3.74 [facility] Serum or plasma calcium sandy urement (mass/volume)Ordered By: Dr. Sandoval on 01-25-2023 Calcium [Mass/Vol] 9.5 mg/dL 8.5-10.1 [facility] Serum or plasma cholesterol in HDL measurement (mass/volume)Ordered By: Dr. Sandoval on 01-25-2023 Cholesterol in HDL [Mass/Vol] 39 mg/dL >40 [facility] Comment on above: The drugs N-Acetylcy steine and Metamizole may falsely depress this assay. Reference Range HDL <40 mg/dL Low HDL Cholesterol HDL >or= 60 mg/dL High HDL Cholesterol Serum or plasma cholesterol in VLDL measurement (mass/volume)Ordered By: Dr. Sandoval on 01-25-2023 Cholesterol in VLDL [Mass/Vol] 33 mg/dL 5-40 [facility] Serum or plasma creatinine m easurement (mass/volume)Ordered By: Dr. Sandoval on 01-25-2023 Creatinine [Mass/Vol] 1.25 mg/dL 0.55-1.02 [facility] Comment on above: The validity of the calculated GFR & GFRAA in patients over 70 years has not been determined. Clinical correlation is essential. Serum or plasma low density lipoprotein (LDL) cholesterol measurement (mass/volume)Ordered By: Dr. Sandoval on 01-25-2023 Cholesterol in LDL [Mass/Vol] 122 mg/dL 0-130 [facility] Serum or plasma urea nitroge n measurement (mass/volume)Ordered By: Dr. Sandoval on 01-25-2023 Urea nitrogen [Mass/Vol] 15 mg/dL 7-18 [facility] Thin prep Papanicolaou smear with manual screeningOrdered By: Dr. Sandoval on 01-25-2023 Thin prep Papanicolaou smear with manual screening 10 5-15 [facility] Glucose Glucometer (BldC) [M ass/Vol]Ordered By: Dr. Marie on 12-01-2022 Glucose [Mass/Vol] 147 mg/dL 74-106 [facility] Comment on above: MANAGEMENT OF PATIEN T CARE PER NURSING PROTOCOL Basophil percentageon 2021 Chloride [Moles/Vol] 107 mmol/L 98-107 [facility] Work Phone: Cholesterol [Mass/Vol] 175 mg/dL <200 [facility] Work Phone: Comment on above: <200 mg/dL Desirable 200-240 mg/dL Borderline >240 mg/dL High Risk Glucose [Mass/Vol] 117 mg/dL 74-106 [facility] Work Phone: Comment on above: Fasting Glucose resu lt from 100 to 125 mg/dL suggests IMPAIRED HOMEOSTASIS per A.D.A. criteria. Potassium [Moles/Vol] 4.0 mmol/L 3.5-5.1 [facility] Work Phone: Sodium [Moles/Vol] 140 mmol/L 136-145 [facility] Work Phone: Triglyceride [Mass/Vol] 141 mg/dL <199 [facility] Work Phone: Comment on above: The drugs N-Acetylcy steine and Metamizole may falsely depress this assay.Serum Triglycerides Reference Interval Normal <150 mg/dL Borderline high 150 - 199 mg/dL High 200 - 499 mg/dL Very High > or = 500 mg/dL Laboratory - Chemistry and C hemistry - challengeon 07-27-2022 CO2 [Moles/Vol] 23.0 mmol/L 21.0-32.0 [facility] Work Phone: Free T4 [Mass/Vol] 1.26 ng/dL 0.76-1.46 [facility] Work Phone: [phone] Urea nitrogen/Creatinine [Mass ratio] 9.6 mg/mg 10-20 [facility] Work Phone: [phone] Panel Informationon 07-27 Estimated GFR (MDRD) Amer 72 mL/min >60 [facility] Work Phone: Comment on above: GFR Calc Estimated GFR (MDRD) Non-Af Amer 60 mL/min >60 [facility] Work Phone: Comment on above: Non- GFR Calc Free Triiodothyronine (T3) pg/dL 2.0 pg/mL 2.18-3.98 [facility] Work Phone: Thyroid Stimulating Hormone (TSH) 1.24 uIU/mL 0.358-3.74 [facility] Work Phone: [phone] Serum or plasma calcium sandy urement (mass/volume)on 07-27-2022 Calcium [Mass/Vol] 9.1 mg/dL 8.5-10.1 [facility] Work Phone: [phone] Serum or plasma cholesterol in HDL measurement (mass/volume)on 07-27-2022 Cholesterol in HDL [Mass/Vol] 41 mg/dL >40 [facility] Work Phone: Comment on above: The drugs N-Acetylcy steine and Metamizole may falsely depress this assay. Reference Range HDL <40 mg/dL Low HDL Cholesterol HDL >or= 60 mg/dL High HDL Cholesterol Serum or plasma cholesterol in VLDL measurement (mass/volume)on 07-27-2022 Cholesterol in VLDL [Mass/Vol] 28 mg/dL 5-40 [facility] Work Phone: [phone] Serum or plasma creatinine m easurement (mass/volume)on 07-27-2022 Creatinine [Mass/Vol] 1.04 mg/dL 0.55-1.02 [facility] Work Phone: Comment on above: The validity of the calculated GFR & GFRAA in patients over 70 years has not been determined. Clinical correlation is essential. Serum or plasma low density lipoprotein (LDL) cholesterol measurement (mass/volume)on 07-27-2022 Cholesterol in LDL [Mass/Vol] 106 mg/dL 0-130 [facility] Work Phone: [phone] Serum or plasma urea nitroge n measurement (mass/volume)on 07-27-2022 Urea nitrogen [Mass/Vol] 10 mg/dL 7-18 [facility] Work Phone: [phone] Thin prep Papanicolaou smear with manual screeningon 07-27-2022 Thin prep Papanicolaou smear with manual screening 10 5-15 [facility] Work Phone: [phone] Culture, urineon 04-22-2022 Bacteria identified Cx Nom (U) Escherichia coli [facility] Work Phone: Basophil percentageon 2021 Basophil percentage 5-10 SEEN /hpf [facility] Work Phone: [phone] Chloride [Moles/Vol] 104 mmol/L 98-[address] [facility] Work Phone: [phone] Cholesterol [Mass/Vol] 194 mg/dL <200 [facility] Work Phone: [phone] Comment on above: <200 mg/dL Desirable 200-240 mg/dL Borderline >240 mg/dL High Risk Glucose [Mass/Vol] 105 mg/dL 74-106 [facility] Work Phone: Comment on above: Fasting Glucose resu lt from 100 to 125 mg/dL suggests IMPAIRED HOMEOSTASIS per A.D.A. criteria. Potassium [Moles/Vol] 4.3 mmol/L 3.5-5.1 [facility] Work Phone: [phone] Sodium [Moles/Vol] 137 mmol/L 136-145 [facility] Work Phone: [phone] Triglyceride [Mass/Vol] 191 mg/dL [facility] Work Phone: [phone] Comment on above: The drugs N-Acetylcy steine and Metamizole may falsely depress this assay.Serum Triglycerides Reference Interval Normal <150 mg/dL Borderline high 150 - 199 mg/dL High 200 - 499 mg/dL Very High > or = 500 mg/dL Bilirubin Test strip Ql (U)o n 01-26-2022 Bilirubin Ql (U) Negative Negative [facility] Work Phone: [phone] Ketones Test strip Ql (U)on 01-26-2022 Ketones Ql (U) Negative Negative [facility] Work Phone: [phone] Laboratory - Chemistry and C hemistry - challengeon 01-26-2022 CO2 [Moles/Vol] 24.0 mmol/L 21.0-32.0 [facility] Work Phone: [phone] Free T4 [Mass/Vol] 1.36 ng/dL 0.76-1.46 [facility] Work Phone: [phone] Urea nitrogen/Creatinine [Mass ratio] 13.0 mg/mg 10-20 [facility] Work Phone: [phone] Mucus LM Ql (Urine sed)on Mucus Ql (Urine sed) 0 SEEN /hpf [facility] Work Phone: [phone] Nitrite Test strip Ql (U)on 01-26-2022 Nitrite Ql (U) Negative Negative [facility] Work Phone: No Panel Informationon 01-26 Estimated GFR (MDRD) Amer 59 mL/min >60 [facility] Work Phone: Comment on above: GFR Calc Estimated GFR (MDRD) Non-Af Amer 49 mL/min >60 [facility] Work Phone: Comment on above: Non- GFR Calc Free Triiodothyronine (T3) pg/dL 1.7 pg/mL 2.18-3.98 [facility] Work Phone: [phone] Thyroid Stimulating Hormone (TSH) 3.39 uIU/mL 0.358-3.74 [facility] Work Phone: Protein Test strip Ql (U)on 01-26-2022 Protein Ql (U) 30 mg/dl Negative [facility] Work Phone: [phone] Serum or plasma calcium sandy urement (mass/volume)on 01-26-2022 Calcium [Mass/Vol] 9.5 mg/dL 8.5-10.1 [facility] Work Phone: [phone] Serum or plasma cholesterol in HDL measurement (mass/volume)on 01-26-2022 Cholesterol in HDL [Mass/Vol] 33 mg/dL [facility] Work Phone: Comment on above: The drugs N-Acetylcy steine and Metamizole may falsely depress this assay. Reference Range HDL <40 mg/dL Low HDL Cholesterol HDL >or= 60 mg/dL High HDL Cholesterol Serum or plasma cholesterol in VLDL measurement (mass/volume)on 01-26-2022 Cholesterol in VLDL [Mass/Vol] 38 mg/dL 5-40 [facility] Work Phone: Serum or plasma creatinine m easurement (mass/volume)on 01-26-2022 Creatinine [Mass/Vol] 1.23 mg/dL 0.55-1.02 [facility] Work Phone: Comment on above: The validity of the calculated GFR & GFRAA in patients over 70 years has not been determined. Clinical correlation is essential. Serum or plasma low density lipoprotein (LDL) cholesterol measurement (mass/volume)on 01-26-2022 Cholesterol in LDL [Mass/Vol] 123 mg/dL 0-130 [facility] Work Phone: Serum or plasma urea nitroge n measurement (mass/volume)on 01-26-2022 Urea nitrogen [Mass/Vol] 16 mg/dL 7-18 [facility] Work Phone: Squamous epithelial cells de tection in urine sediment by light microscopyon 01-26-2022 Epithelial cells.squamous LM Ql (Urine sed) 5-10 SEEN /hpf [facility] Work Phone: Thin prep Papanicolaou smear with manual screeningon 01-26-2022 Thin prep Papanicolaou smear with manual screening 9 5-15 [facility] Work Phone: Urine blood detectionon 01-13 RBC Ql (U) Negative Negative [facility] Work Phone: [phone] RBC Ql (U) 0 SEEN /hpf [facility] Work Phone: Urine clarityon 01-26-2022 Clarity (U) Clear Clear [facility] Work Phone: Urine color determinationon 01-26-2022 Color (U) Yellow Yellow [facility] Work Phone: Urine glucose detectionon Glucose Ql (U) Normal mg/dl Normal [facility] Work Phone: [phone] Urine leukocyte esterase det ection by dipstickon 01-26-2022 Leukocyte esterase Test strip Ql (U) 500 /ul Negative [facility] Work Phone: [phone] Urine pHon 01-26-2022 pH (U) 6.0 [pH] [facility] Work Phone: Urine sediment bacteria coun t by microscopy (number/high power field)on 01-26-2022 Bacteria LM.HPF (Urine sed) [#/Area] 0 /[HPF] None Seen [facility] Work Phone: Urine specific gravity measu rementon 01-26-2022 Specific gravity (U) [Rel density] 1.015 [facility] Work Phone: Urobilinogen Auto test strip Ql (U)on 01-26-2022 Urobilinogen Ql (U) Normal mg/dl Normal [facility] Work Phone: Culture, urine Bacteria identified Cx Nom (U) Escherichia coli [facility] Work Phone: Vital Signs Date Time Vital Sign Value Performing Clinician Faci lity 06-04-2025 11:10-0400 Body height 167.[address] Red Sandoval MD Work Phone: [facility] 06-04-2025 11:10-0400 Body mass index (BMI) [Ratio] 43.4 kg/m2 Dr. Red Sandoval MD Work Phone: [facility] 06-04-2025 11:10-0400 Body temperature 97.6 [degF] Dr. Red Sandoval MD Work Phone: [facility] 06-04-2025 11:10-0400 Body weight 122.[address] Red Sandoval MD Work Phone: [facility] 06-04-2025 11:10-0400 Diastolic blood pressure 71 mm[Hg] Dr. Red Sandoval MD Work Phone: [facility] 06-04-2025 11:10-0400 Heart rate 78 /min Dr. Red Sandoval MD Work Phone: [facility] 06-04-2025 11:10-0400 Respiratory rate 18 /min Dr. Red Sandoval MD Work Phone: [facility] 06-04-2025 11:10-0400 SaO2% (BldA) [Mass fraction] 96 % Dr. Red Sandoval MD Work Phone: [phone])271-549227 [place] [address] 06-04-2025 11:10-0400 Systolic blood pressure 121 mm[Hg] Dr. Red Sandoval MD Work Phone: [phone])416-609239 [place] [address] 05-07-2025 08:27-0400 Body height 167.[address] Red Sandoval MD Work Phone: [phone])341-736239 [place] [address] 05-07-2025 08:27-0400 Body mass index (BMI) [Ratio] 43.5 kg/m2 Dr. Red Sandoval MD Work Phone: 6(532)941-595539 [place] [address] 05-07-2025 08:27-0400 Body temperature 98 [degF] Dr. Red Sandoval MD Work Phone: 1(436)291-017039 [place] [address] 05-07-2025 08:27-0400 Body weight 122.[address] Red Sandoval MD Work Phone: 0(802)339-726239 [place] [address] 05-07-2025 08:27-0400 Diastolic blood pressure 82 mm[Hg] Dr. Red Sandoval MD Work Phone: 4(806)249-049539 [place] [address] 05-07-2025 08:27-0400 Heart rate 75 /min Dr. Red Sandoval MD Work Phone: [phone])569-541039 [place] [address] 05-07-2025 08:27-0400 Respiratory rate 18 /min Dr. Red Sandoval MD Work Phone: [phone])632-992839 [place] [address] 05-07-2025 08:27-0400 SaO2% (BldA) [Mass fraction] 96 % Dr. Red Sandoval MD Work Phone: [phone])004-798927 [place] [address] 05-07-2025 08:27-0400 Systolic blood pressure 132 mm[Hg] Dr. Red Sandoval MD Work Phone: [phone])645-816239 [place] [address] 03-29-2025 10:18-0400 Diastolic blood pressure 51 mm[Hg] Dr. Red Sandoval MD Work Phone: 0(792)754-485439 [place] [address] 03-29-2025 10:18-0400 Heart rate 79 /min Dr. Red Sandoval MD Work Phone: [facility] 03-29-2025 10:18-0400 Respiratory rate 16 /min Dr. Red Sandoval MD Work Phone: [facility] 03-29-2025 10:18-0400 SaO2% (BldA) [Mass fraction] 97 % Dr. Red Sandoval MD Work Phone: [phone])088-849127 [place] [address] 03-29-2025 10:18-0400 Systolic blood pressure 114 mm[Hg] Dr. Red Snadoval MD Work Phone: [phone])090-592727 [place] [address] 03-29-2025 08:03-0400 Body height 167.[address] Red Sandoval MD Work Phone: 7([phone])517-296139 [place] [address] 03-29-2025 08:03-0400 Body mass index (BMI) [Ratio] 43.5 kg/m2 Dr. Red Sandoval MD Work Phone: 2(768)538-829327 [place] [address] 03-29-2025 08:03-0400 Body temperature 96.4 [degF] Dr. Red Sandoval MD Work Phone: 4(221)165-785239 [place] [address] 03-29-2025 08:03-0400 Body weight 122.[address] Red Sandoval MD Work Phone: 0(860)776-294239 [place] [address] 03-08-2025 08:22-0400 Body mass index (BMI) [Ratio] 44.7 kg/m2 Dr. Red Sandoval MD Work Phone: 4(464)579-318427 [place] [address] 03-08-2025 08:22-0400 Body temperature 98.3 [degF] Dr. Red Sandoval MD Work Phone: 3(138)277-102617 [address] 03-08-2025 08:22-0400 Body weight 125.[address] Red Sandoval MD Work Phone: [phone])837-519017 [address] 03-08-2025 08:22-0400 Diastolic blood pressure 74 mm[Hg] Dr. Red Sandoval MD Work Phone: 7(763)517-853117 [address] 03-08-2025 08:22-0400 Heart rate 78 /min Dr. Red Sandoval MD Work Phone: [facility] 03-08-2025 08:22-0400 Respiratory rate 18 /min Dr. Red Sandoval MD Work Phone: [facility] 03-08-2025 08:22-0400 SaO2% (BldA) [Mass fraction] 97 % Dr. Red Sandoval MD Work Phone: [facility] 03-08-2025 08:22-0400 Systolic blood pressure 113 mm[Hg] Dr. Red Sandoval MD Work Phone: [facility] 12-01-2022 10:40-0500 Body temperature 96.9 [degF] Dr. Red Sandoval Work Phone: [facility] 12-01-2022 10:40-0500 Diastolic blood pressure 64 mm[Hg] Dr. Red Sandoval Work Phone: [phone])122-428927 [place] [address] 12-01-2022 10:40-0500 Heart rate 62 /min Dr. Red Sandoval Work Phone: [facility] 12-01-2022 10:40-0500 Respiratory rate 16 /min Dr. Red Sandoval Work Phone: [facility] 12-01-2022 10:40-0500 SaO2% (BldA) [Mass fraction] 96 % Dr. Red Sandoval Work Phone: [facility] 12-01-2022 10:40-0500 Systolic blood pressure 106 mm[Hg] Dr. Red Sandoval Work Phone: [facility] 12-01-2022 09:27-0500 Body height 167.[address] Red Sandoval Work Phone: [facility] 12-01-2022 09:27-0500 Body mass index (BMI) [Ratio] 36.3 kg/m2 Dr. Red Sandoval Work Phone: [facility] 12-01-2022 09:27-0500 Body weight [address] Red Sandoval Work Phone: [facility] 11-10-2022 16:24-0500 Body mass index (BMI) [Ratio] 37.1 kg/m2 Dr. Red Sandoval Work Phone: [facility] 11-10-2022 16:24-0500 Body weight 104.[address] eRd Sandoval Work Phone: [facility] Encounters Encounter Date Encounter Type Care Provider Facility Start: 09-05-2025 ambulatory [facility] Facility:[facility] Start: 08-27-2025 ambulatory Red Sandoval Facility:[facility] Start: 08-27-2025 End: 08-27-2025 ambulatory Red Sandoval Facility:[facility] Start: 08-22-2025 ambulatory Red Sandoval Facility:[facility] Start: 08-17-2025 ambulatory Red Sandoval Facility:[facility] Start: 08-13-2025 End: 08-13-[address] Red Sandoval MD Work Phone: -Radiology [facility] Start: 08-13-2025 End: 08-13-[address] Nikolai Kim MD -Radiology [facility] Work Phone: Start: 08-13-2025 End: 08-13-2025 ambulatory Nikolai Kim Facility:[facility] Start: 06-27-2025 End: 06-27-[address] Red Sandoval MD Work Phone: -Laboratory [facility] Start: 06-27-2025 End: 06-27-[address] Red Sandoval MD -Laboratory [facility] Start: 06-27-2025 End: 06-27-2025 ambulatory Red Sandoval Facility:[facility] Start: 06-15-2025 End: 06-15-[address] Red Sandoval MD Work Phone: -Radiology [place] Start: 06-15-2025 End: 06-15-[address] Nikolai Kim MD -Radiology [place] Work Phone: Start: 06-15-2025 End: 06-15-2025 ambulatory Nikolai Kim Facility:[facility] Start: 06-04-[address] Glen Chapman MD -[facility] Start: 06-04-2025 End: 06-04-[address] Glen Chapman MD -[facility] Work Phone: Start: 06-04-2025 End: 06-04-[address] Red Sandoval MD Work Phone: -[facility] Start: 05-07-2025 End: 05-07-[address] Glen Chapman MD -[facility] Work Phone: Start: 05-07-2025 End: 05-07-2025 ambulatory Red Sandoval Facility:[facility] Start: 05-07-[address] Glen Chapman MD -[facility] Start: 04-17-2025 ambulatory Red Sandoval Facility:[facility] Start: 04-17-2025 Non-patient / Non-visit Dr. John real MD -[facility] Start: 04-17-2025 End: 04-17-[address] Red Sandoval MD Work Phone: [facility] Work Phone: Start: 04-17-2025 End: 04-17-[address] Red Sandoval MD -Cardiovascular Services Work Phone: Start: 04-17-2025 End: 04-17-2025 ambulatory Red Sandoval Facility:[facility] Start: 03-29-2025 End: 03-29-[address] Red Sandoval MD Work Phone: [facility] Work Phone: Start: 03-29-2025 End: 03-29-[address] Red Sandoval MD -[facility] Start: 03-29-[address] Glen Chapman MD -[facility] Start: 03-29-2025 End: 03-29-2025 ambulatory Red Sandoval Facility:[facility] Start: 03-08-2025 End: 03-08-[address] Glen Chapman MD -[facility] Work Phone: Start: 03-08-2025 End: 03-08-2025 ambulatory Red Sandoval Facility:[facility] Start: 03-05-2025 Non-patient / Non-visit Yamila Cohen si [facility] Work Phone: Start: 03-05-2025 ambulatory Red Sandoval Facility:[facility] Start: 03-05-2025 End: 03-05-[address] [facility] Start: 03-05-2025 End: 03-05-2025 ambulatory Red Sandoval Facility:[facility] Start: 03-01-2025 End: 03-01-[address] Red Sandoval MD Work Phone: [facility] Work Phone: Start: 03-01-2025 End: 03-01-[address] [facility] Start: 03-01-2025 End: 03-01-2025 ambulatory Red Sandoval Facility:[facility] Start: 10-08-2024 End: 10-08-2024 ambulatory Red Sandoval Facility:[facility] Start: 02-07-2024 End: 02-07-2024 ambulatory [facility] Work Phone: Start: 02-07-2024 End: 02-07-2024 Patient encounter procedure [facility]-Laboratory, Specimen Work Phone: Start: 01-19-2024 End: 01-19-2024 ambulatory [facility] Work Phone: Start: 01-19-2024 End: 01-19-2024 Patient encounter procedure [facility] Start: 07-26-2023 End: 07-26-2023 ambulatory [facility] Work Phone: Start: 07-26-2023 End: 07-26-2023 Patient encounter procedure [facility] Start: 01-25-2023 End: 01-25-[address] Red Sandoval Work Phone: [facility] Work Phone: Start: 01-25-2023 End: 01-25-[address] Red Sandoval Work Phone[facility] Start: 12-01-2022 Non-patient / Non-visit Dr. Yousuf Sandoval Work Phone: [facility] Start: 12-01-2022 End: 12-01-2022 Admission to same day surgery center Dr. Red Sandoval Work Phone: [facility]-Endoscopy Start: 12-01-2022 End: 12-01-[address] Red Sandoval Work Phone: [facility] Work Phone: Start: 11-10-2022 Non-patient / Non-visit Dr. Yousuf Sandoval Work Phone: [facility] Start: 07-27-2022 End: 07-27-2022 ambulatory [facility] Work Phone: Start: 07-27-2022 End: 07-27-2022 Patient encounter procedure [facility] Start: 06-26-2022 End: 06-26-2022 [facility] Start: 04-22-2022 End: 04-22-2022 [facility] Start: 01-26-2022 End: 01-26-2022 Patient encounter procedure [facility] Procedures Date Procedure Procedure Detail Performing Clinician [...] Work Phone: Comment on above: Performed at: [address] [id number] Director: Preston Ashley PhD, Phone: [phone] Start: 12-01-[address] [facility] [address] Red cool Work Phone: Start: 04-22-2022 Urine culture Urine culture Plan of Treatment Date Care Activity Detail Author Start: 08-24-2025 Lactate dehydrogenase measurement [facility] Start: 08-24-2025 Serum inorganic phosphate measurement [facility] Start: 08-24-2025 Vitamin B12 measurement [facility] Start: 06-04-2025 [facility] Start: 05-07-2025 [facility] Start: 03-08-2025 Patient referral [facility] Work Phone: Start: 12-01-2022 Colonoscopy flx dx w/collj spec when pfrmd DIAGNOSTIC COLONOSCOPY [facility] Start: 12-01-2022 Patient discharge [facility] C reactive protein [Mass/volume] in Serum or Plasma [facility] C reactive protein [Mass/volume] in Serum or Plasma [facility] CBC W Auto Different ial panel - Blood [facility] CBC W Auto Different ial panel - Blood [facility] CBC W Auto Different ial panel - Blood [facility] Cobalamin (Vitamin B 12) [Mass/volume] in Serum or Plasma [facility] Cobalamin (Vitamin B 12) [Mass/volume] in Serum or Plasma [facility] Colonoscopy [facility] Comprehensive metabo lic 1999 panel - Serum or Plasma [facility] Comprehensive metabo lic 1999 panel - Serum or Plasma [facility] Erythrocyte sediment ation rate [facility] Erythrocyte sediment ation rate [facility] Ferritin [Mass/volum e] in Serum or Plasma [facility] Ferritin [Mass/volum e] in Serum or Plasma [facility] Ferritin [Mass/volum e] in Serum or Plasma [facility] Folate [Moles/volume ] in Serum or Plasma [facility] Folate [Moles/volume ] in Serum or Plasma [facility] Folate [Moles/volume ] in Serum or Plasma [facility] Iron and Iron bindin g capacity panel - Serum or Plasma [facility] Iron and Iron bindin g capacity panel - Serum or Plasma [facility] Iron and Iron bindin g capacity panel - Serum or Plasma [facility] Lactate dehydrogenas e measurement [facility] Lactate dehydrogenas e measurement [facility] Lactate dehydrogenas e measurement [facility] Magnesium measurement [facility] Magnesium measurement [facility] Magnesium measurement [facility] Patient referral [facility] Work Phone: Serum inorganic phos phate measurement [facility] Serum inorganic phos phate measurement [facility] Serum inorganic phos phate measurement [facility] Vitamin B12 measurement [facility] Payers Date Payer Category Payer Private Health Insurance [id number] 2024 Private Health Insurance [id number] 2024 Self-pay [id number] Unknown [id number] Unknown [id number] 2.16.8 [id number] Unknown [id number] 2.16.8 40.1.143884.3.579.2.462 Unknown [id number] 2.16.8 40.1.204883.3.579.2.462 Unknown [id number] 2.16.8 40.1.058478.3.579.2.462 Unknown [id number] 2.16.8 40.1.945442.3.579.2.462 Unknown [id number] 2.16.8 40.1.652427.3.579.2.462 Unknown [id number] 2.16.8 40.1.813011.3.579.2.462 Unknown [id number] 2.16.8 40.1.726397.3.579.2.462 Unknown [id number] 2.16.8 40.1.358902.3.579.2.462 Unknown [id number] 2.16.8 40.1.826446.3.579.2.462 Unknown [id number] 2.16.8 40.1.619921.3.579.2.462 Unknown [id number] 2.16.8 40.1.971434.3.579.2.462 Unknown [id number] 2.16.8 40.1.965367.3.579.2.462 Unknown [id number] 2.16.8 40.1.568810.3.579.2.462 Unknown [id number] 2.16.8 40.1.613565.3.579.2.462 Unknown [id number] 2.16.8 40.1.685246.3.579.2.462 Unknown [id number] 2.16.8 40.1.517408.3.579.2.462 Unknown [id number] 2.16.8 40.1.823906.3.579.2.462 Social History Date Type Detail Facility Tobacco smoking status NHIS Unknown if ever smoked [facility] Work Phone: Start: 1970 Sex Assigned At Female [facility] Start: 12-01-2022 End: 12-01-2022 Tobacco smoking status NHIS Unknown if ever smoked [facility] Start: 03-05-2025 End: 03-08-2025 Tobacco smoking status NHIS Ex-smoker (finding) [facility] Start: 03-06-2025 Sex Female (finding) [facility] Sex Female [facility] NEGATED: Highlighted row [facility] Goals Date Patient Goal Desired Activity /State Mental Status Date Assessment Result Facility 03-29-2025 Cognitive function Awake;Alert;A ppropriate;Foll ows Commands [facility] Work Phone: 03-15-2025 Cognitive function Arousable To Voice/Nam e [facility] Work Phone: 12-01-2022 Cognitive function Voice/Name [facility] Work Phone: Clinical Notes 12-01-2022 to 08-13-2025 Note Date & Type Note Facility 08-13-2025 Radiology Diagnostic study note [facility] Services [address] [place], [place] [address] Fluoroscopy 1 Hr or Less MR#: [id number] Acct: [id number] Name: HEIDI ANDREWS Rep #: [id number] : 1970 F 55 From: Tiff Mcfarland MD PCP: Dr. Red Sandoval MD Status: REG C LI Study:Fluoroscopy 1 Hr or Less Date of Exam: 08/13/25 Exam# [id number] Ordering Dr: Nikolai Kim MD PROCEDURE: FLUOROSCOPY [...] excursion suggestive of mild paralysis. Reading Location: [place] [address] CC: Dr. Red Sandoval MD; Dr. Nikolai Kim MD ~ Investigative Shopper: Signed [facility] 06-15-2025 Radiology Diagnostic study note [facility] Imaging Services [address] [place], [place] [id number] Chest PA and Lateral MR#: [id number] Acct: [id number] Name: HEIDI ANDREWS Rep #: [id number] : 1970 F 55 From: Ricardo Nunn MD PCP: Dr. Red Sandoval MD Status: REG C Study:Chest PA and Lateral Date of Exam: 06/15/25 Exam# [id number] Ordering Dr: Nikolai Kim MD PROCEDURE: CHEST [...] evidence of acute cardiopulmonary disease. Reading Location: [place] [address] CC: Dr. Red Sandoval MD; Dr. Nikolai Kim MD ~ Investigative Shopper: Signed [facility] 06-04-2025 Progress note [facility] 06-04-2025 Progress note Note Date/Time June 04, 2025 12:39pm [facility] [place] [address] OFFICE VISIT Date of Service: 06/04/25 1109 MR#: [id number] Acct: [id number] Name: HEIDI ANDREWS Rep #: [id number] : 1970 From: Glen Chapman MD Age/Sex: 55/F Location: [facility] Status: Signed HPI Subjective Date [...] deficiency. Comes for follow up. Feels better. [facility] Medical History Sleep apnea Wears glasses Thyroid [...] applicable) CC: Dr. Red Sandoval MD ~ [facility] Work Phone: 1(506) 407-563206-23-2025 Evaluation note* Diagnosis Onset Date Resolution Status Admit Date B12 deficiency chronic May 07, 2025 7:45am Iron deficiency anemia chronic Ju ne 2024 7:45am Hypomagnesemia resolved May 07, 2025 7:45am B12 deficiency chronic June 04, 2025 9:55am Iron deficiency anemia chronic Ju ly 2024 9:55am Hypomagnesemia resolved June 04, 2025 9:55am [facility] Work Phone: 1(993) 655-696904-24-2025 Evaluation note* Diagnosis Onset Date Resolution Status Admit Date Iron deficiency anemia acute Ap ril 2024 8:14am Anemia noneactive March 08 8:14am [facility] Work Phone: 1(909) 727-256804-24-2025 Evaluation note* Diagnosis Onset Date Resolution Status Admit Date Iron deficiency anemia chronic Ap ril 2024 8:14am Anemia noneactive March 08 8:14am B12 deficiency acute May 07, 2025 7:45am Hypomagnesemia acute May 07, 2025 7:45am Iron deficiency anemia chronic Ju ne 2024 7:45am [facility] Work Phone: 1(717) 509-596804-24-2025 Evaluation note* Diagnosis Onset Date Resolution Status [...] 9:55am Hypomagnesemia resolved June 04, 2025 9:55am [facility] Work Phone: 1(215) 602-688903-25-2024 NotePap Smear Specimen AdequacyMarch 2023 9:00amComment.Satisfactory for evaluation. Endocervical and/or squamous metaplasticcells (endocervical component)are present.[facility] INTER[facility]ACED A#[id number] Hospitals Ahuja Medical CenterComment on above:Satisfactory for evaluation. Endocervical and/or squamous metaplasticcells (endocervical component)are present.12-01-2022 [facility] 12-01-2022 Procedure noteWMer[facility] HospitalEvaluation noteNo assessment information availableWMercy Health [facility] Work Phone: Evaluation note* Diagnosis Onset Date Resolution Status Encounter for screening for malignant neoplasm of colo n acute [facility] Work Phone: History and physical note Author Dr. Marie [facility] December 01, 2022 10:07am Note Date/Time December 01, 2022 1 0:07am [facility] Medical Records Department [address] [facility] [place] [address] History & Physical Exam 12/01/22 1005 MR#: [id number] Acct: [id number] Name: HEIDI ANDREWS Rep #:[id number] : 1970 52 From: Lamine gracia MD PCP: Dr. Red Sandoval MD Status:[facility] Location: [place] [address] HPI - General HPI Narrative HEIDI ANDREWS, is a 52 F who presents for screening colonoscopy. Patient reports no blood in the stool or abdominal pain. She has never had a colonoscopy in the past. No family history of colon cancer. [facility] Medical History Anemia Anxiety Bipolar disorder, unspecified [...] 09:05) Discharge Is Pt Admitted From a Mcfp, or a Longterm: No Who Could Help: [...] proceed with procedure. Lamine Marie MD Pager: [facility] [address] [place] [address], [address] [place] [address] Office: Surgery Risks - Colonoscopy Risks Include but are not Limited To: Risks include but are not limited to: Bleeding, perforation requiring further surgery, inability to complete colonoscopy requiring barium enema. 12/01/22 1007 <Electronically signed by Lamine Marie MD> Cosigner Signature (if applicable): CC: Dr. Lamine Marie MD; Dr. Red Sandoval MD~ Signed [facility] Work Phone: Reason for referral (narrative)No reason for referral information availableWMercy Health [facility] Work Phone: Chief Complaint [...] Will No November 25 8:38am Power of Cook Relief No November 25, 2022 8:38am Advance Directive Response Recorded Date/ Time Living Will No November 25 9:38am Power of Cook Relief No November 25, 2022 9:38am Summary Purpose [...] MD Primary Care Provider Active Patricia Thompson [employer]SM[employer]ION [employer]SEM[employer]ER-C Attending Provider, Referr ing Provider Active Team [...] 2025 End: May 07, 2025 Dr. Red aSndoval MD Referring Provider Active Start: May 07, [...] physician Active Start: June 04, 2025 Dr. Glne Chapman MD Referring Provider Active S tart: [...] section and content) DATE CREATED AUTHOR 08/30/2025 [facility] FOR RECORDS PERTAINING TO PATIENTS WHO [...] BE BASED ON THE PRIMARY CLINICAL RECORDS. [facility]. provides no warranty or guarantee of the accuracy or completeness of information in this document.
[2025-08-31] MEDS: 0.9% Normal Saline (1000mL) 1,000 ML 150 ML IV ×2 (14:12→20:28)
[2025-08-31] MEDS: 0.9% Saline Lock 10 ML Syringe IV ×2 (14:12→15:54)
[2025-08-31 14:26] LABS: Reflex Lactate? Y
[2025-08-31 16:00] VITALS: BP 99/59; PULSE 75; RESP 15; TEMP 36.3; O2SAT 100
--- NOTE | 2025-08-31 18:49 | PCM.HP.STD ---
HPI - General General Date of Admission: 08/31/25 Date of Service: 08/31/25 Chief Complaint: Syncope, right ankle injury HPI Narrative HEIDI ANDREWS, is a 55 F who presents to the emergency room at [facility] after sustaining a syncopal episode at home after standing up. According to the emergency room physician, patient's blood pressure by squad was in the 60s systolic, she suffered an injury to her right ankle from the fall. Workup in the emergency room included labs which showed an elevated lactic acid level of 4.4, chemistry profile was abnormal for a glucose of 199, creatinine of 3.10, a BUN of 47, a sodium of 129, chloride of 86, and a bicarb of 17.7. Patient's anion gap was elevated at 25. Patient CBC was abnormal for hemoglobin of 10.9. Urinalysis showed no red blood cells, there was 0-5 white cells and rare bacteria. X-rays of the patient's right ankle revealed a lateral malleolus fracture, a splint was applied by the emergency room physician. Patient was given IV fluids in the emergency room with some improvement of her blood pressure-systolic readings were in the 90s. Patient will be admitted for acute kidney injury, hyponatremia, she will be given IV fluids, ultrasound kidneys will be obtained and she will be seen by nephrology. Labs will be closely monitored. Patient's blood pressure medication was stopped. Patient's anion gap is probably from starvation ketoacidosis, patient's elevated lactic acid level could be a result of her use of metformin with a backdrop of starvation. [facility] Medical History (Updated 08/31/25 @ 13:40 by Sweta Simms) BiPAP (biphasic positive airway pressure) dependence Asthma Irregular heart beat Sleep apnea Wears glasses Thyroid disease Diabetes Anemia Former smoker Diabetes Anxiety Psoriasis Hypothyroid Vitamin D deficiency Hypertriglyceridemia Bipolar disorder, unspecified HTN (hypertension) Home Medications ?Medication ?Instructions ?Recorded ?Last Taken ?Type gemfibrozil 600 mg tablet 600 mg PO BID high blood pressu 11/10/22 08/31/25 08:00 History lamotrigine 150 mg tablet 150 mg PO BID high blood pressure 11/10/22 08/31/25 08:00 History levothyroxine 88 mcg tablet 88 mcg PO DAILY hypo thyroid 11/10/22 08/31/25 06:00 History (Levoxyl) metformin 1,000 mg tablet 1,000 mg PO BID diabetes 11/10/22 08/31/25 08:00 History metoprolol succinate 200 mg 200 mg PO DAILY heart rate/htn 11/10/22 08/31/25 08:00 History tablet,extended release 24 hr (Toprol XL) valsartan 320 1 tab PO DAILY blood pressure 11/10/22 08/31/25 08:00 History mg-hydrochlorothiazide 12.5 mg tablet (Diovan HCT) oxybutynin chloride 5 mg tablet 5 mg PO BID bladder 03/05/25 Unknown History fluoxetine 20 mg capsule (Prozac) 60 mg PO DAILY bipolar 03/08/25 08/31/25 08:00 History folic acid 1 mg tablet 1 mg PO QDAY supplement #90 tabs 05/07/25 08/31/25 08:00 Rx mecobalamin (vitamin B12) 1,000 1,000 mcg PO QDAY supplement #90 05/07/25 08/31/25 08:00 Rx mcg chewable tablet tabs magnesium oxide 400 mg PO QDAY supplement #30 caps 06/01/25 08/31/25 08:00 Rx risperidone 1 mg tablet 1.5 mg PO QHS rls 06/04/25 08/30/25 22:48 History semaglutide 0.25 mg or 0.5 mg (2 0.25 mg subcut QWEEK 08/27/25 Unknown History mg/3 mL) subcutaneous pen injector (Seva Search) Held on 08/31/25. Instructions: skipped this week 08/31/25 fluticasone furoate 200 1 ea inhalation Q24H asthma 08/31/25 08/30/25 08:00 History mcg-vilanterol 25 mcg/dose inhalation powder ondansetron HCl 4 mg tablet 4 mg PO TID PRN nausea 08/31/25 Unknown History potassium chloride 20 mEq 20 meq PO DAILY supplement 08/31/25 08/30/25 08:00 History tablet,extended release(part/cryst) Allergy/AdvReac Type Severity Reaction Status Date / Time No Known Allergies Allergy Verified 08/31/25 10:07 Family History Father Hypertension Diabetes Sister Anxiety MCTD (mixed connective tissue disease) Mother Psoriatic arthritis Surgical History Hx of section Hx of bilateral breast reduction surgery Social History household members: spouse current occupational status: employed 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 [employer] Smoking Status: Former smoker alcohol intake: never substance use type: does not use ROS Constitutional Constitutional: Reports weakness; Denies anorexia, change in weight, fever(s) or night sweats Eyes Eyes: Denies blurry vision, change in vision, discharge from eye(s) or eye pain ENT HEENT: Denies abnormal hearing, dysphagia or hearing loss Cardiovascular Cardiovascular: Reports lightheadedness; Denies chest pain, claudication, edema or palpitations Respiratory/Chest Respiratory/Chest: Denies cough, hemoptysis, shortness of breath at rest or shortness of breath with exertion Gastrointestinal Gastrointestinal: Denies abdominal pain, constipation, diarrhea, hematemesis, hematochezia, melena, nausea or vomiting Genitourinary Genitourinary: Denies dysuria, hematuria, urinary frequency, urinary hesitancy, urinary incontinence or urinary urgency Musculoskeletal Musculoskeletal: Reports joint pain; Denies back pain, joint stiffness, joint swelling, myalgias or neck pain Neurologic Neurologic: Reports syncope; Denies abnormal gait, abnormal speech, dizziness, focal weakness, headache(s), loss of vision, numbness, other visual disturbances, paresthesias or tingling Psychiatric Psychiatric: Denies anxiety, cognitive impairment, depression, irritability, mood swings or suicidal ideation Endocrine Endocrinology: Denies change in body appearance, cold intolerance, excessive sweating, heat intolerance, polydipsia or polyuria Hematologic/Lymphatic Hematologic/Lymphatic: Denies none, anemia, easy bleeding, easy bruising or lymphadenopathy Allergic/Immunologic Allergic/Immunologic: Denies rhinitis, urticaria, eczemia or asthma Vital Signs Vital Signs Vital Signs: 08/31/25 10:00 08/31/25 10:05 08/31/25 11:02 Temperature 97.6 F L Temperature Source Oral Pulse Rate 77 76 Respiratory Rate 18 18 Respiratory Effort Normal Non-Labored Respiratory Pattern Normal Blood Pressure 102/62 104/70 Blood Pressure Mean 75 81 Blood Pressure Source Blood Pressure Position Blood Pressure Location Pulse Ox 100 97 Oxygen Delivery Method Room Air Room Air 08/31/25 12:00 08/31/25 12:04 08/31/25 16:00 Temperature 98.1 F 98.1 F 97.3 F L Temperature Source Oral Oral Pulse Rate 72 72 75 Respiratory Rate 16 16 15 Respiratory Effort Respiratory Pattern Blood Pressure 96/52 L 96/52 L 99/59 L Blood Pressure Mean 66 66 72 Blood Pressure Source Monitor Blood Pressure Position Semi-Fowlers Blood Pressure Location Right Forearm Pulse Ox 99 99 100 Oxygen Delivery Method Room Air Room Air Weight Weight: 94 kg Body Mass Index (BMI) 33.4 Physical Exam Const alert, oriented x3, no apparent distress and healthy appearing General Appearance: cooperative, well kempt and well developed Orientation / Consciousness: awake, oriented to person, oriented to place and oriented to time HEENT normocephalic, head/scalp atraumatic, hearing grossly normal bilaterally and moist oral mucous membranes Eyes PERRL, EOMs intact bilaterally and conjunctivae normal Neck supple, no JVD, thyroid normal and no carotid bruits General: trachea midline Resp normal respiratory effort, no retractions, no use of accessory muscles and clear to auscultation bilaterally Auscultation: Negative for rales, rhonchi or wheezes Cardio regular rate, regular rhythm, S1 normal heart sound, S2 normal heart sound, no murmurs, no rub and no gallops GI normal to inspection, nondistended, normoactive bowel sounds, soft to palpation, non-tender and non-distended Extremity Extremity Narrative: Right lower extremity is encased in a splint Skin no rashes or lesions noted General Skin Exam: no breakdown Neuro oriented x3, CN's II-XII intact bilaterally, no focal motor deficits and no sensory deficits noted Sensorium / Orientation: awake and alert Speech: speech normal Psych affect normal Results Medical Records Data Medical Nutrition Assessment Dietitian: Malnutrition Criteria Met Start: 08/31/25 14:35 Freq: Status: Active Protocol: Document 08/31/25 14:36 SB (Rec: 08/31/25 14:36 SB [id number]) Nutrition Malnutrition Evidence of Yes Malnutrition Exists Malnutrition (severe Acute Illness/Injury ): Evidenced By Suboptimal Energy Intake (Severe),Weight Loss (Severe) Clinical Problem Acute Disease or Injury Related Malnutrition Etiology severe related to GI dysfunction, inadequate oral intake, and ozempic Signs/Symptoms as evidenced by PO meeting <50% of estimated nutrition needs x 1 month and 16% weight loss x 2 months Status Active Problem Recommendation Dietitian Adjust to consistent carbohydrate diet. Recommendations/ Will order 240mL chocolate glucerna shake with Changes breakfast and dinner. Pt will maintain weight while acutely ill. Lab / Micro Data 08/31/25 09:50 09/01/25 04:45 Labs: Laboratory Results - last 24 hr 08/31/25 09:50: WBC 4.9, RBC 4.11 L, Hgb 10.9 L, Hct 33.2 L, MCV 80.8 L, MCH 26.5 L, MCHC 32.8, RDW Std Deviation 40.0, RDW Coeff of Sohan 13.8, Plt Count 240, MPV 10.1, Immature Gran % (Auto) 1.200 H, Neut % (Auto) 72.5 H, Lymph % (Auto) 16.0 L, Harvey % (Auto) 6.7, Eos % (Auto) 3.0, Baso % (Auto) 0.6, Absolute Neuts (auto) 3.6, Absolute Lymphs (auto) 0.79 L, Nucleated RBC % 0, PT 16.0 H, INR 1.3, APTT 27.1, Sodium 129 L, Potassium 3.8, Chloride 86 L, Carbon Dioxide 17.7 L, Anion Gap 25 H, BUN 47 H, Creatinine 3.10 H, Estim Creat Clear Calc 25.29 L, Est GFR (MDRD) Non-Af 17 L, BUN/Creatinine Ratio 15.0, Glucose 199 H, Calcium 10.5, Total Bilirubin 0.60, Direct Bilirubin 0.33 H, AST 17, ALT 9, Alkaline Phosphatase 186 H, Troponin T High Sens 14, Total Protein 8.6 H, Albumin 4.9, Globulin 3.7 08/31/25 10:20: Lactic Acid 4.4 H* 08/31/25 11:16: Urine Color Yellow, Urine Clarity Sl. Cloudy, Urine pH 5.0, Ur Specific Gloster 1.025, Urine Protein 100 H, Urine Glucose (UA) Normal, Urine Ketones 5 H, Urine Occult Blood 10 H, Urine Nitrite Negative, Urine Bilirubin 3 H, Urine Urobilinogen 1 H, Ur Leukocyte Esterase 25 H, Urine RBC 0 SEEN, Urine WBC 0-5 SEEN, Ur Squamous Epith Cells 10-25 SEEN, Amorphous Sediment 1+, Urine Bacteria RARE, Urine Mucus 0 SEEN 08/31/25 11:48: Troponin T Hi Sens 2 Hr 12 08/31/25 15:53: POC Glucose 143 H Imaging Radiology Impression Chest X-Ray 08/31/25 10:12 IMPRESSION: Stable examination. No acute abnormality is seen. Reading Location: [facility] 08/31/25 10:30 IMPRESSION: Cerebral atrophy more pronounced in the anterior frontal lobes bilaterally as well as in the Reading Location: [facility] Ankle X-Ray 08/31/25 10:35 IMPRESSION: Nondisplaced oblique fracture of the lateral malleolus as well as avulsion fracture of the posterior malleolus. Mild asymmetry of the ankle mortise as well as soft tissue swelling. Reading Location: [facility] Renal Ultrasound 08/31/25 13:05 IMPRESSION: NORMAL RENAL ULTRASOUND. Reading [facility] Assessment & Plan Assessment/Plan (1) JESI (acute kidney injury): PLAN: Plan 1. Acute kidney injury-secondary to dehydration and use of diuretics for hypertension, also due to emesis from Ozempic-patient will be admitted to [facility] 3 and given IV fluids, nephrology will be consulted, labs will be monitored. Ultrasound of the kidneys will be obtained. #2 syncope secondary to orthostatic hypotension secondary to #1-patient will be seen by PT and OT #3 lactic acidosis secondary to starvation ketoacidosis and a backdrop of Glucophage usage-patient will be given IV fluids #4 orthostatic hypotension secondary to dehydration and use of blood pressure medications-patient's blood pressure medications will be held #5 nondisplaced oblique fracture of the lateral malleolus as well as avulsion fracture of the posterior malleolus of the right ankle-patient is currently in a splint, she is nonweightbearing and will be seen by PT and OT, she will need follow-up with orthopedic surgery as an outpatient #6 essential hypertension-again due to the patient's orthostatic hypotension, her blood pressure medicines are being held #7 hyponatremia secondary to volume loss-patient is on normal saline, BMP will be rechecked tomorrow #8 type 2 diabetes-sliding scale insulin will be administered per fingerstick blood sugars Total clinical time spent by myself addressing the patient's medical issues, reviewing all of her data, and collaborating with patient's care team: 75 minutes Charges/Coding Visit Charges Inpatient E&M: 93336 Subs Hosp L2
[2025-08-31 20:22] VITALS: BP 111/62; PULSE 74; RESP 14; TEMP 36.4; O2SAT 100
[2025-08-31] MEDS: Heparin Injection (Vial) 5,000 UNIT/ML VIAL 5000 UNIT SC (20:29)
[2025-08-31 22:05] LABS: Reflex Lactate? Y
[2025-09-01 03:05] VITALS: BP 87/48; PULSE 79; RESP 14; TEMP 36.6; O2SAT 97
[2025-09-01] MEDS: 0.9% Normal Saline (1000mL) 1,000 ML 150 ML IV ×3 (03:21→18:37)
[2025-09-01 05:55] LABS: Anion Gap 17 (5-15); BUN 43 mg/dL (4-19); BUN/Creat Ratio 17.9 RATIO (10-20); Calcium,Total 8.6 mg/dL (7.6-11.0); Carbon Dioxide 17.2 mmol/L (21.0-32.0); Chloride 97 mmol/L (98-108); Estimated Creatinine Clearance 31.06 ml/min (50-250); Glucose 145 mg/dL (70-99); Potassium 4.1 mmol/L (3.3-5.1)
[2025-09-01 06:00] VITALS: BP 93/51; PULSE 81; RESP 14; TEMP 36.6; O2SAT 98
[2025-09-01 07:48] VITALS: BP 105/60; PULSE 84; RESP 16; TEMP 36.4; O2SAT 100
[2025-09-01] MEDS: Heparin Injection (Vial) 5,000 UNIT/ML VIAL 5000 UNIT SC ×2 (10:30→22:15)
[2025-09-01] MEDS: Magnesium Chloride 64 MG Delay Rel.Tablet 128 MG PO (10:31)
--- NOTE | 2025-09-01 11:41 | CASEMGMT ---
BRINA VILLARREAL Assessment: Face to Face with pt for initial transition planning/care coordination assessment. BRINA VILLARREAL introduced self and role at [facility], pt voices understanding and consents to assessment. Pt is A&O x4 and answers all questions appropriately at this time. Pt sitting up in chair in no distress, sitting at bedside. Pt agreeable to DC planning assessment with present. Care providers, pharmacy, and demographics verified/updated. Strata: 2 Admitting Dx: acute kidney injury PCP: Raul Specialists: Ari, Oncology; Julio, Pulmonary Preferred Pharmacy: [facility] Insurance: C[employer] Prescription Benefit: yes LNOK: , Magdy Living Arrangements: Pt lives with in a 2 story home with 3 steps to enter. ADLs:Pt reports I with ADLs and IADLs. Transportation: Pt drives self and denies concerns with transportation. DME: BiP[facility] HHC/SNF: Denies Hx of. Pt states no concerns with going home at time of dc. Therapy recommending Knee scooter or Knee sling walker at time of DC. BRINA VILLARREAL discussed getting a script for pt to get a knee scooter or walker. BRINA VILLARREAL discussed OP Therapy if recommended. Pt denies any additional needs at this time. Pt states no further concerns/needs. CM to follow. Advised pt to ask CM if any further question/concerns/needs arise, voices understanding. Pt Goal: Home Plan: Home with DME and Family support. Ramon GONSALVES CM
[2025-09-01 15:57] VITALS: BP 99/59; PULSE 84; RESP 16; TEMP 36.7; O2SAT 96
--- NOTE | 2025-09-01 16:52 | PCM.CONS.R ---
Assessment & Plan Assessment/Plan (1) JESI (acute kidney injury): PLAN: Cr was normal early this year. last month around 1.4 or so. this admit came in with 3.1 better at 2.4 today. renal US is ok. UA shows some protein. will send urine PCR. BP was low, home BP meds on hold. continue fluids. several constitutional symptoms including weight loss. as per family she was sick before GLP1 agonist initiation as well. will send serologies. protein gap is a little high, will send kappa/lamnda assay. maintain fluids for today. HPI Consult Data Date of Consult: 09/01/25 HPI Narrative Reason for Consultation: JESI HPI Narrative: HEIDI ANDREWS, is a 55 F who presents with syncope, hypotension, JESI. several complaints over last 3 months or so. poor appetite weight loss, compounded by initiation of GLP1 agonist. apparently lost about 60 lbs or so. no urinary complaints. cr was normal before now increased. currently on IV fluids. no hematuria. [facility] Medical History (Updated 08/31/25 @ 13:40 by Sweta Simms) BiPAP (biphasic positive airway pressure) dependence Asthma Irregular heart beat Sleep apnea Wears glasses Thyroid disease Diabetes Anemia Former smoker Diabetes Anxiety Psoriasis Hypothyroid Vitamin D deficiency Hypertriglyceridemia Bipolar disorder, unspecified HTN (hypertension) Home Medications ?Medication ?Instructions ?Recorded ?Last Taken ?Type gemfibrozil 600 mg tablet 600 mg PO BID high blood pressu 11/10/22 08/31/25 08:00 History lamotrigine 150 mg tablet 150 mg PO BID high blood pressure 11/10/22 08/31/25 08:00 History levothyroxine 88 mcg tablet 88 mcg PO DAILY hypo thyroid 11/10/22 08/31/25 06:00 History (Levoxyl) metformin 1,000 mg tablet 1,000 mg PO BID diabetes 11/10/22 08/31/25 08:00 History metoprolol succinate 200 mg 200 mg PO DAILY heart rate/htn 11/10/22 08/31/25 08:00 History tablet,extended release 24 hr (Toprol XL) valsartan 320 1 tab PO DAILY blood pressure 11/10/22 08/31/25 08:00 History mg-hydrochlorothiazide 12.5 mg tablet (Diovan HCT) oxybutynin chloride 5 mg tablet 5 mg PO BID bladder 03/05/25 Unknown History fluoxetine 20 mg capsule (Prozac) 60 mg PO DAILY bipolar 03/08/25 08/31/25 08:00 History folic acid 1 mg tablet 1 mg PO QDAY supplement #90 tabs 05/07/25 08/31/25 08:00 Rx mecobalamin (vitamin B12) 1,000 1,000 mcg PO QDAY supplement #90 05/07/25 08/31/25 08:00 Rx mcg chewable tablet tabs magnesium oxide 400 mg PO QDAY supplement #30 caps 06/01/25 08/31/25 08:00 Rx risperidone 1 mg tablet 1.5 mg PO QHS rls 06/04/25 08/30/25 22:48 History semaglutide 0.25 mg or 0.5 mg (2 0.25 mg subcut QWEEK 08/27/25 Unknown History mg/3 mL) subcutaneous pen injector (Head Held High) Held on 08/31/25. Instructions: skipped this week 08/31/25 fluticasone furoate 200 1 ea inhalation Q24H asthma 08/31/25 08/30/25 08:00 History mcg-vilanterol 25 mcg/dose inhalation powder ondansetron HCl 4 mg tablet 4 mg PO TID PRN nausea 08/31/25 Unknown History potassium chloride 20 mEq 20 meq PO DAILY supplement 08/31/25 08/30/25 08:00 History tablet,extended release(part/cryst) Allergy/AdvReac Type Severity Reaction Status Date / Time No Known Allergies Allergy Verified 08/31/25 10:07 Family History Father Hypertension Diabetes Sister Anxiety MCTD (mixed connective tissue disease) Mother Psoriatic arthritis Surgical History Hx of section Hx of bilateral breast reduction surgery Social History household members: spouse current occupational status: employed 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 Smoking Status: Former smoker alcohol intake: never substance use type: does not use ROS ROS Narrative negative except above Physical Exam Narrative Alert awake oriented x 3 no obvious distress no pallor no icterus no JVD s1s2 no murmurs lungs clear abdomen soft no organomegaly Medical Records Data Medical Nutrition Assessment Dietitian: Malnutrition Criteria Met Start: 08/31/25 14:35 Freq: Status: Active Protocol: Document 08/31/25 14:36 SB (Rec: 08/31/25 14:36 SB [id number]) Nutrition Malnutrition Evidence of Yes Malnutrition Exists Malnutrition (severe Acute Illness/Injury ): Evidenced By Suboptimal Energy Intake (Severe),Weight Loss (Severe) Clinical Problem Acute Disease or Injury Related Malnutrition Etiology severe related to GI dysfunction, inadequate oral intake, and ozempic Signs/Symptoms as evidenced by PO meeting <50% of estimated nutrition needs x 1 month and 16% weight loss x 2 months Status Active Problem Recommendation Dietitian Adjust to consistent carbohydrate diet. Recommendations/ Will order 240mL chocolate glucerna shake with Changes breakfast and dinner. Pt will maintain weight while acutely ill. Lab / Micro Data 08/31/25 09:50 09/01/25 04:45 Labs: Laboratory Results - last 24 hr 08/31/25 17:50: Lactic Acid 4.3 H* 08/31/25 22:40: Lactic Acid 3.0 H* 09/01/25 04:45: Sodium 131 L, Potassium 4.1, Chloride 97 L, Carbon Dioxide 17.2 L, Anion Gap 17 H, BUN 43 H, Creatinine 2.42 H, Estim Creat Clear Calc 31.06 L, Est GFR (MDRD) Non-Af 23 L, BUN/Creatinine Ratio 17.9, Glucose 145 H, Calcium 8.6 09/01/25 06:17: POC Glucose 131 H 09/01/25 11:23: POC Glucose 170 H Imaging Radiology Impression Renal Ultrasound 08/31/25 13:05 IMPRESSION: NORMAL RENAL ULTRASOUND. Reading Location[facility]
--- NOTE | 2025-09-01 19:35 | PCM.PN.HOSP ---
Reason for Visit Chief Complaint: Syncope, right ankle injury Subjective Subjective Patient was seen and examined today, she overall feels better, her labs have improved, I reviewed nephrology's note and I elected to decrease her fluids to 100 cc/h. Objective Data Objective Data Vital Signs: Vital Signs Temp Pulse Resp BP Pulse Ox O2 Del Method 98.0 F 84 16 99/59 L 96 Room Air 09/01/25 15:57 09/01/25 15:57 09/01/25 15:57 09/01/25 15:57 09/01/25 15:57 09/01/25 15:57 Oxygen Delivery Method Room Air Weight: 94 kg Body Mass Index (BMI) 33.4 Intake & Output: Intake and Output for Last 24 Hours 08/30/25 08/31/25 09/01/25 23:59 23:59 23:59 Intake Total 1290 / 1740 3825 / 3825 Balance 1290 / 1740 3825 / 3825 Medical Nutrition Assessment Dietitian: Malnutrition Criteria Met Start: 08/31/25 14:35 Freq: Status: Active Protocol: Document 08/31/25 14:36 SB (Rec: 08/31/25 14:36 SB [id number]) Nutrition Malnutrition Evidence of Yes Malnutrition Exists Malnutrition (severe Acute Illness/Injury ): Evidenced By Suboptimal Energy Intake (Severe),Weight Loss (Severe) Clinical Problem Acute Disease or Injury Related Malnutrition Etiology severe related to GI dysfunction, inadequate oral intake, and ozempic Signs/Symptoms as evidenced by PO meeting <50% of estimated nutrition needs x 1 month and 16% weight loss x 2 months Status Active Problem Recommendation Dietitian Adjust to consistent carbohydrate diet. Recommendations/ Will order 240mL chocolate glucerna shake with Changes breakfast and dinner. Pt will maintain weight while acutely ill. Lab / Micro Data 08/31/25 09:50 09/01/25 04:45 Labs: Laboratory Results - last 24 hr 08/31/25 22:40: Lactic Acid 3.0 H* 09/01/25 04:45: Sodium 131 L, Potassium 4.1, Chloride 97 L, Carbon Dioxide 17.2 L, Anion Gap 17 H, BUN 43 H, Creatinine 2.42 H, Estim Creat Clear Calc 31.06 L, Est GFR (MDRD) Non-Af 23 L, BUN/Creatinine Ratio 17.9, Glucose 145 H, Calcium 8.6 09/01/25 06:17: POC Glucose 131 H 09/01/25 11:23: POC Glucose 170 H 09/01/25 16:52: POC Glucose 146 H Physical Exam Narrative alert, oriented x3, no apparent distress and healthy appearing General Appearance: cooperative, well kempt and well developed Orientation / Consciousness: awake, oriented to person, oriented to place and oriented to time HEENT normocephalic, head/scalp atraumatic, hearing grossly normal bilaterally and moist oral mucous membranes Eyes PERRL, EOMs intact bilaterally and conjunctivae normal Neck supple, no JVD, thyroid normal and no carotid bruits General: trachea midline Resp normal respiratory effort, no retractions, no use of accessory muscles and clear to auscultation bilaterally Auscultation: Negative for rales, rhonchi or wheezes Cardio regular rate, regular rhythm, S1 normal heart sound, S2 normal heart sound, no murmurs, no rub and no gallops GI normal to inspection, nondistended, normoactive bowel sounds, soft to palpation, non-tender and non-distended Extremity Extremity Narrative: Right lower extremity is encased in a splint Skin no rashes or lesions noted General Skin Exam: no breakdown Neuro oriented x3, CN's II-XII intact bilaterally, no focal motor deficits and no sensory deficits noted Sensorium / Orientation: awake and alert Speech: speech normal Psych affect normal Assessment & Plan Assessment/Plan (1) JESI (acute kidney injury): PLAN: Plan 1. Acute kidney injury-secondary to dehydration and use of diuretics for hypertension, also due to emesis from Ozempic-continue IV fluids at 100 cc/h, labs will be repeated tomorrow #2 syncope secondary to orthostatic hypotension secondary to #1-patient will be seen by PT and OT #3 lactic acidosis secondary to starvation ketoacidosis and a backdrop of Glucophage usage-patient will be given IV fluids #4 orthostatic hypotension secondary to dehydration and use of blood pressure medications-patient's blood pressure medications will be held #5 nondisplaced oblique fracture of the lateral malleolus as well as avulsion fracture of the posterior malleolus of the right ankle-patient is currently in a splint, she is nonweightbearing and will be seen by PT and OT, she will need follow-up with orthopedic surgery as an outpatient #6 essential hypertension-again due to the patient's orthostatic hypotension, her blood pressure medicines are being held #7 hyponatremia secondary to volume loss-patient is on normal saline, BMP will be rechecked tomorrow #8 type 2 diabetes-sliding scale insulin will be administered per fingerstick blood sugars Total clinical time spent by myself addressing the patient's medical issues, reviewing all of her data, and collaborating with patient's care team: 35 minutes Charges/Coding Visit Charges Inpatient E&M: 53288 Subs Hosp L2
[2025-09-01 20:32] VITALS: BP 115/63; PULSE 85; RESP 16; TEMP 36.6; O2SAT 95
[2025-09-02 01:23] LABS: Creatinine, Urine (random) 55.60 mg/dL (28.00-217.00); Protein, Urine (Random) 7.1 mg/dL (0.0-12.0); Protein:Creat Ratio 128 mg/g CRE (0-200)
[2025-09-02 02:55] VITALS: BP 110/62; PULSE 84; RESP 16; TEMP 36.9; O2SAT 92
[2025-09-02] MEDS: 0.9% Normal Saline (1000mL) 1,000 ML 100 ML IV ×3 (02:57→23:18)
[2025-09-02 05:12] LABS: Anion Gap 13 (5-15); BUN 23 mg/dL (4-19); BUN/Creat Ratio 16.9 RATIO (10-20); Calcium,Total 8.7 mg/dL (7.6-11.0); Carbon Dioxide 18.9 mmol/L (21.0-32.0); Chloride 104 mmol/L (98-108); Estimated Creatinine Clearance 56.09 ml/min (50-250); Glucose 106 mg/dL (70-99); Potassium 3.8 mmol/L (3.3-5.1)
[2025-09-02 08:43] VITALS: BP 115/61; PULSE 94; RESP 16; TEMP 36.2; O2SAT 100
[2025-09-02] MEDS: Heparin Injection (Vial) 5,000 UNIT/ML VIAL 5000 UNIT SC ×2 (08:54→22:17)
[2025-09-02] MEDS: Magnesium Chloride 64 MG Delay Rel.Tablet 128 MG PO (08:55)
--- NOTE | 2025-09-02 12:17 | DCINST_ITS ---
Discharge Instructions DC O2, CPAP, BIPAP needs Home O2 Discharge instructions: No Dressing / Incision Discharge Activity: Return to Normal Activity Weight Bearing Status: Full weight bearing Follow Up Care Test Results: Test results from this visit will be discussed in further detail at your follow- up appointment, if applicable. Discharge Plan Admission Admit Date/Time: 08/31/25 12:54 Primary Reason for Your Visit: Acute kidney injury, hyponatremia, starvation ketoacidosis Attending Provider: Frantz Gunderson Primary Care Provider: Red Perez Consulting Providers: Memo Valdez Instructions Additional Instructions / Restrictions: You are being discharged on no medications for diabetes, please monitor your blood sugars, if they are consistently above 180 please call your PCP for advice Discharge Orders/Prescriptions Prescriptions: Continued levothyroxine [Levoxyl] 88 mcg tablet 88 mcg PO DAILY gemfibrozil 600 mg tablet 600 mg PO BID lamotrigine 150 mg tablet 150 mg PO BID fluoxetine [Prozac] 20 mg capsule 60 mg PO DAILY oxybutynin chloride 5 mg tablet 5 mg PO BID folic acid 1 mg tablet 1 mg PO QDAY Qty: 90 0RF mecobalamin (vitamin B12) 1,000 mcg tablet,chewable 1,000 mcg PO QDAY Qty: 90 0RF risperidone 1 mg tablet 1.5 mg PO QHS ondansetron HCl 4 mg tablet 4 mg PO TID PRN (Reason: nausea) fluticasone furoate-vilanterol 200-25 mcg/dose blister with device 1 ea INHALATION Q24H magnesium oxide 400 mg magnesium capsule 400 mg PO QDAY Qty: 30 2RF Discontinued metformin 1,000 mg tablet 1,000 mg PO BID valsartan-hydrochlorothiazide [Diovan HCT] 320-12.5 mg tablet 1 tab PO DAILY metoprolol succinate [Toprol XL] 200 mg tablet extended release 24 hr 200 mg PO DAILY Ozempic 0.25 mg or 0.5 mg (2 mg/3 mL) pen injector 0.25 mg subcut QWEEK potassium chloride 20 mEq tablet,ER particles/crystals 20 meq PO DAILY Referrals / Follow Up: Memo Valdez MD [Med Staff - Consulting, Nephrology] - See Referral Note Referral Note: Call the office on 09/03/2025 for a follow-up appointment within 1 to 2 weeks, tell them that you were hospitalized and saw Dr. Valdez in the hospital Red Perez MD [Primary Care Provider, Family Practice] - See Referral Note Referral Note: In 2 weeks Disposition Disposition (needs filled in before D/C Order can be placed): Home, Self Care
--- NOTE | 2025-09-02 12:30 | PCM.PN.HOSP ---
Reason for Visit Chief Complaint: Syncope, right ankle injury Subjective Subjective Patient was seen and examined today, her creatinine is 1.34. I had entertained discharging her but due to her ankle fracture, she will need set up with orthopedic equipment and I think is better if she goes home tomorrow. Patient's blood sugars are adequately controlled at this time. Objective Data Objective Data Vital Signs: Vital Signs Temp Pulse Resp BP Pulse Ox O2 Del Method 97.2 F L 94 16 115/61 100 Room Air 09/02/25 08:43 09/02/25 08:43 09/02/25 08:43 09/02/25 08:43 09/02/25 08:43 09/02/25 08:43 Oxygen Delivery Method Room Air Weight: 94 kg Body Mass Index (BMI) 33.4 Intake & Output: Intake and Output for Last 24 Hours 08/31/25 09/01/25 09/02/25 23:59 23:59 23:59 Intake Total 1290 / 1740 3825 / 3945 1120 / 1120 Balance 1290 / 1740 3825 / 3945 1120 / 1120 Medical Nutrition Assessment Dietitian: Malnutrition Criteria Met Start: 08/31/25 14:35 Freq: Status: Active Protocol: Document 08/31/25 14:36 SB (Rec: 08/31/25 14:36 SB [id number]) Nutrition Malnutrition Evidence of Yes Malnutrition Exists Malnutrition (severe Acute Illness/Injury ): Evidenced By Suboptimal Energy Intake (Severe),Weight Loss (Severe) Clinical Problem Acute Disease or Injury Related Malnutrition Etiology severe related to GI dysfunction, inadequate oral intake, and ozempic Signs/Symptoms as evidenced by PO meeting <50% of estimated nutrition needs x 1 month and 16% weight loss x 2 months Status Active Problem Recommendation Dietitian Adjust to consistent carbohydrate diet. Recommendations/ Will order 240mL chocolate glucerna shake with Changes breakfast and dinner. Pt will maintain weight while acutely ill. Lab / Micro Data 08/31/25 09:50 09/02/25 03:50 Labs: Laboratory Results - last 24 hr 09/01/25 16:52: POC Glucose 146 H 09/01/25 22:10: POC Glucose 156 H 09/02/25 00:12: U Random Total Protein 7.1, Urine Creatinine 55.60, Protein/Creatinin Ratio 128 09/02/25 03:50: Sodium 135, Potassium 3.8, Chloride 104, Carbon Dioxide 18.9 L, Anion Gap 13, BUN 23 H, Creatinine 1.34 H, Estim Creat Clear Calc 56.09, Est GFR (MDRD) Non-Af 47 L, BUN/Creatinine Ratio 16.9, Glucose 106 H, Calcium 8.7 09/02/25 06:42: POC Glucose 123 H 09/02/25 11:16: POC Glucose 123 H Physical Exam Narrative alert, oriented x3, no apparent distress and healthy appearing General Appearance: cooperative, well kempt and well developed Orientation / Consciousness: awake, oriented to person, oriented to place and oriented to time HEENT normocephalic, head/scalp atraumatic, hearing grossly normal bilaterally and moist oral mucous membranes Eyes PERRL, EOMs intact bilaterally and conjunctivae normal Neck supple, no JVD, thyroid normal and no carotid bruits General: trachea midline Resp normal respiratory effort, no retractions, no use of accessory muscles and clear to auscultation bilaterally Auscultation: Negative for rales, rhonchi or wheezes Cardio regular rate, regular rhythm, S1 normal heart sound, S2 normal heart sound, no murmurs, no rub and no gallops GI normal to inspection, nondistended, normoactive bowel sounds, soft to palpation, non-tender and non-distended Extremity Extremity Narrative: Right lower extremity is encased in a splint Skin no rashes or lesions noted General Skin Exam: no breakdown Neuro oriented x3, CN's II-XII intact bilaterally, no focal motor deficits and no sensory deficits noted Sensorium / Orientation: awake and alert Speech: speech normal Psych affect normal Assessment & Plan Assessment/Plan (1) JESI (acute kidney injury): PLAN: Plan 1. Acute kidney injury-secondary to dehydration and use of diuretics for hypertension, also due to emesis from Ozempic-continue IV fluids at 100 cc/h, labs will be repeated tomorrow #2 syncope secondary to orthostatic hypotension secondary to #1-patient will be seen by PT and OT #3 lactic acidosis secondary to starvation ketoacidosis and a backdrop of Glucophage usage-patient will be given IV fluids #4 orthostatic hypotension secondary to dehydration and use of blood pressure medications-patient's blood pressure medications will be held #5 nondisplaced oblique fracture of the lateral malleolus as well as avulsion fracture of the posterior malleolus of the right ankle-patient is currently in a splint, she is nonweightbearing and will be seen by PT and OT, she will need follow-up with orthopedic surgery as an outpatient, she will need orthopedic equipment at the time of discharge, she will need to follow-up with Dr. Prakash within the next 1 to 2 weeks, I talked briefly with Dr. Prakash today and he has the patient's contact information including her phone number. She needs to remain nonweightbearing on the right ankle/leg #6 essential hypertension-again due to the patient's orthostatic hypotension, her blood pressure medicines are being held #7 hyponatremia secondary to volume loss-patient is on normal saline, BMP will be rechecked tomorrow #8 type 2 diabetes-sliding scale insulin will be administered per fingerstick blood sugars #9 iron deficiency anemia-patient is currently getting worked up as an outpatient regarding this by Dr. Chapman #10 severe acute protein and caloric malnutrition-severe related to GI dysfunction, inadequate oral intake and Ozempic as evidenced by p.o. meeting less than 50% of estimated nutritional needs x 1 month and 16% weight loss x 2 months-diet was adjusted to consistent carbohydrate, 240 cc of chocolate Glucerna shake with breakfast and dinner was ordered, nutritional services is monitoring patient Total clinical time spent by myself addressing the patient's medical issues, reviewing all of her data, and collaborating with patient's care team: 35 minutes Charges/Coding Visit Charges Inpatient E&M: 15745 Subs Hosp L2
[2025-09-02 13:18] VITALS: BP 118/62; PULSE 103; RESP 16; TEMP 36.7; O2SAT 99
[2025-09-02 20:24] VITALS: BP 111/63; PULSE 107; RESP 18; TEMP 37.1; O2SAT 97
[2025-09-03 02:30] VITALS: BP 118/71; PULSE 103; RESP 16; TEMP 36.9; O2SAT 94
[2025-09-03 07:09] LABS: Anion Gap 12 (5-15); BUN 8 mg/dL (4-19); BUN/Creat Ratio 8.2 RATIO (10-20); Calcium,Total 8.7 mg/dL (7.6-11.0); Carbon Dioxide 19.3 mmol/L (21.0-32.0); Chloride 105 mmol/L (98-108); Estimated Creatinine Clearance 72.27 ml/min (50-250); Glucose 116 mg/dL (70-99); Potassium 3.3 mmol/L (3.3-5.1)
[2025-09-03 07:36] VITALS: BP 129/80; PULSE 98; RESP 15; TEMP 36.4; O2SAT 97
[2025-09-03] MEDS: Heparin Injection (Vial) 5,000 UNIT/ML VIAL 5000 UNIT SC (07:39)
[2025-09-03] MEDS: Magnesium Chloride 64 MG Delay Rel.Tablet 128 MG PO (07:39)
--- NOTE | 2025-09-03 11:25 | CASEMGMT ---
Addendum entered by Kortney Schmitt 09/03/25 12:09: BRINA VILLARREAL into pt room, pt present. Pt and aware of where to obtain knee sling. Pt states this is affordable to her and she will order through [employer]. Provided pt with rx for knee sling and outpt therapy. Pt denies any further homegoing needs at this time. Addendum entered by Kortney Schmitt 09/03/25 11:55: Received confirmation from [employer] that they do not have knee slings. TC to [employer], they also do not have knee slings. TC to [employer] and they do not carry them either. Noted [employer] has knee slings from $50-100. Original Note: BRINA VILLARREAL into pt room, pt sitting up in chair in no distress. Pt states that a friend has let them borrow a walker for home use but pt still needs a knee sling. Pt is interested in outpt PT but states she wants to follow up with Dr. Prakash first before scheduling this. She would like the rx for this and she will set up on her own. Pt is aware of places she can go for therapy. Pt agreeable to using [employer] to obtain knee sling. Email to [employer] liaison to see if they can provide the knee sling. Pt states she has a and two sons who can help her at home. Pt denies any further homegoing needs at this time.
--- NOTE | 2025-09-03 12:29 | PCM.DC.SUM ---
Providers Date of Admission: 08/31/25 Date of Discharge: 09/03/25 Primary Care Physician: Dr. Red Perez MD Consultations 08/31/25 15:06 Consult: Nephrology Routine Consulting Provider: Memo Valdez Reason for Consult: Acute kidney injury EMERGENT Consult: No MD Notified: Yes Date Notified: 08/31/25 Time Notified: 15:07 Method of Notification: Verbal Reason For Visit: ACUTE KIDNEY INJURY Diagnosis Discharge Diagnosis (1) JESI (acute kidney injury): Status: Inactive Code(s): N17.9 - Acute kidney failure, unspecified Medications at Discharge Home Medications gemfibrozil 600 mg tablet 600 mg PO BID high blood pressu 11/10/22 lamotrigine 150 mg tablet 150 mg PO BID high blood pressure 11/10/22 levothyroxine 88 mcg tablet (Levoxyl) 88 mcg PO DAILY hypo thyroid 11/10/22 oxybutynin chloride 5 mg tablet 5 mg PO BID bladder 03/05/25 fluoxetine 20 mg capsule (Prozac) 60 mg PO DAILY bipolar 03/08/25 folic acid 1 mg tablet 1 mg PO QDAY supplement #90 tabs 05/07/25 mecobalamin (vitamin B12) 1,000 mcg chewable tablet 1,000 mcg PO QDAY supplement #90 tabs 05/07/25 magnesium oxide 400 mg PO QDAY supplement #30 caps 06/01/25 risperidone 1 mg tablet 1.5 mg PO QHS rls 06/04/25 fluticasone furoate 200 mcg-vilanterol 25 mcg/dose inhalation powder 1 ea inhalation Q24H asthma 08/31/25 ondansetron HCl 4 mg tablet 4 mg PO TID PRN nausea 08/31/25 metformin 1,000 mg tablet,extended release 24hr (osmotic) (Fortamet) 1,000 mg PO BID 30 days #60 tabs 09/03/25 metoprolol succinate 50 mg tablet,extended release 24 hr (Toprol XL) 50 mg PO DAILY #30 tabs 09/03/25 valsartan 80 mg tablet 80 mg PO DAILY 30 days #30 tabs 09/03/25 Hospital Course Operations None Procedures EKG and - (Chest x-ray, CT brain, ankle x-ray, renal ultrasound) Summary of Care Provided Minutes Spent on Discharge: 39 Hospital Course: Patient is a 55-year-old female who presented to [facility] ED on 08/31/2025 with syncope and right ankle pain. Hospital course as noted below. Patient discharged home in stable condition on 09/03. 1. JESI, resolved ? Nephrology followed. Creatinine 3.10 on admit, baseline around 1.0. Renal ultrasound normal. UA with some protein, otherwise benign. Improved back to baseline by day of discharge with IV fluid resuscitation so most consistent with prerenal etiology secondary to poor appetite, weight loss and hypotension as below. Further medication management as below. 2. Syncope secondary to orthostatic hypotension, resolved; history of essential hypertension ? Orthostatic hypotension noted on admission and patient quite dry appearing with JESI as above. Suspected due to decreased p.o. intake from Ozempic leading to lower blood pressures at baseline in setting of home blood pressure medication. BP meds were held for the majority of the hospitalization. Normotensive to slightly hypertensive on day of discharge and JESI resolved as above. Discharged on Toprol 50 mg daily and valsartan 80 mg daily. Recommended patient follow-up with PCP for uptitration of medications as needed. 3. Lactic acidosis secondary to starvation ketosis, resolved ? Lactic acid 4.4 on admit, improved with IV fluid resuscitation. Initial bicarb 17 with anion gap of 25 on admit, anion gap resolved with IV fluid resuscitation as well. 4. Right ankle fracture ? PT/OT/case management followed. X-ray on admit showed nondisplaced oblique fracture of the lateral malleolus as well as avulsion fracture of the posterior malleolus with soft tissue swelling. Case was discussed with orthopedics who recommended splinting and the patient remain nonweightbearing until she follows up with orthopedic surgery in the office. Patient did well with PT and OT stable for home on discharge with outpatient physical therapy. She was provided with the appropriate equipment at home that will allow her to remain nonweightbearing until she follows up with orthopedics in the office. 5. Hyponatremia, resolved ? Sodium 129 on admit, resolved with IV fluid resuscitation. 6. Severe protein calorie malnutrition ? Nutrition followed. Criteria for medication on admit as evidenced by p.o. eating less 50% of this to be nutrition needs x 1 month and 60% weight loss x 2 months. This is presumed secondary to GI dysfunction and inadequate oral intake due to Ozempic. Given protein supplements during hospitalization and recommended that these are continued on discharge. 7. Type 2 diabetes mellitus ? Patient was recently started on Ozempic about 8 weeks ago. Since then she has had significantly decreased p.o. intake and GI dysfunction leading to her issues as above. Ozempic will be discontinued on discharge. Treated with sliding scale insulin while inpatient with good glucose control. Okay to resume home metformin on discharge. Chronic medical conditions: ? Hypothyroidism: Continue home Synthroid. ? Mood disorder: Continue home risperidone, lamotrigine and fluoxetine. ? Overactive bladder: Continue home oxybutynin. ? Asthma: Stable on room air, not in acute exacerbation on admission. Continue home inhalers. Total clinical time spent by myself addressing the patient's medical issues, reviewing all the data, and collaborating with patient's care team: 39 minutes. Physical Exam Narrative alert, oriented x3, no apparent distress and healthy appearing General Appearance: cooperative, well kempt and well developed Orientation / Consciousness: awake, oriented to person, oriented to place and oriented to time HEENT normocephalic, head/scalp atraumatic, hearing grossly normal bilaterally and moist oral mucous membranes Eyes PERRL, EOMs intact bilaterally and conjunctivae normal Neck supple, no JVD, thyroid normal and no carotid bruits General: trachea midline Resp normal respiratory effort, no retractions, no use of accessory muscles and clear to auscultation bilaterally Auscultation: Negative for rales, rhonchi or wheezes Cardio regular rate, regular rhythm, S1 normal heart sound, S2 normal heart sound, no murmurs, no rub and no gallops GI normal to inspection, nondistended, normoactive bowel sounds, soft to palpation, non-tender and non-distended Extremity Extremity Narrative: Right lower extremity is encased in a splint Skin no rashes or lesions noted General Skin Exam: no breakdown Neuro oriented x3, CN's II-XII intact bilaterally, no focal motor deficits and no sensory deficits noted Sensorium / Orientation: awake and alert Speech: speech normal Psych affect normal Medical Records Data Medical Nutrition Assessment Dietitian: Malnutrition Criteria Met Start: 08/31/25 14:35 Freq: Status: Active Protocol: Document 08/31/25 14:36 SB (Rec: 08/31/25 14:36 SB [id number]) Nutrition Malnutrition Evidence of Yes Malnutrition Exists Malnutrition (severe Acute Illness/Injury ): Evidenced By Suboptimal Energy Intake (Severe),Weight Loss (Severe) Clinical Problem Acute Disease or Injury Related Malnutrition Etiology severe related to GI dysfunction, inadequate oral intake, and ozempic Signs/Symptoms as evidenced by PO meeting <50% of estimated nutrition needs x 1 month and 16% weight loss x 2 months Status Active Problem Recommendation Dietitian Adjust to consistent carbohydrate diet. Recommendations/ Will order 240mL chocolate glucerna shake with Changes breakfast and dinner. Pt will maintain weight while acutely ill. Weight / BMI Weight Weight: 94 kg Body Mass Index (BMI) 33.4 ABG / Lab / Microbiology Data 08/31/25 09:50 09/03/25 05:40 Laboratory: Laboratory Results - last 24 hr 09/02/25 16:22: POC Glucose 145 H 09/02/25 22:16: POC Glucose 152 H 09/03/25 05:40: Sodium 137, Potassium 3.3, Chloride 105, Carbon Dioxide 19.3 L, Anion Gap 12, BUN 8, Creatinine 1.04, Estim Creat Clear Calc 72.27, Est GFR (MDRD) Non-Af 64, BUN/Creatinine Ratio 8.2 L, Glucose 116 H, Calcium 8.7 09/03/25 06:18: POC Glucose 110 H 09/03/25 10:43: POC Glucose 140 H D/C Instructions Weight Bearing Status: Full weight bearing DC O2, CPAP, BIPAP Needs Home O2 Discharge instructions: No Meaningful Use Info Meaningful Use Meaningful Use Diagnoses (Choose all that apply): None applicable Discharge Plan Admission Admit Date/Time: 08/31/25 12:54 Primary Reason for Your Visit: Acute kidney injury, hyponatremia, starvation ketoacidosis Attending Provider: Jacques Muñoz Primary Care Provider: Red Perez Consulting Providers: Memo Valdez; Frantz Gunderson Instructions Additional Instructions / Restrictions: Please take the following medications as noted below. Note the following changes: ? For high blood pressure, take Toprol 50 mg daily and valsartan 80 mg daily. ? For diabetes, take metformin 1000 mg twice daily. Please have a repeat BMP drawn in 3 to 5 days to monitor your kidney function. Follow-up with your PCP in the next 1 to 2 weeks. Discharge Orders/Prescriptions Prescriptions: New metoprolol succinate [Toprol XL] 50 mg tablet extended release 24 hr 50 mg PO DAILY Qty: 30 2RF metformin [Fortamet] 1,000 mg tablet extended release 24hr 1,000 mg PO BID 30 Days Qty: 60 2RF valsartan 80 mg tablet 80 mg PO DAILY 30 Days Qty: 30 0RF Continued levothyroxine [Levoxyl] 88 mcg tablet 88 mcg PO DAILY gemfibrozil 600 mg tablet 600 mg PO BID lamotrigine 150 mg tablet 150 mg PO BID fluoxetine [Prozac] 20 mg capsule 60 mg PO DAILY oxybutynin chloride 5 mg tablet 5 mg PO BID folic acid 1 mg tablet 1 mg PO QDAY Qty: 90 0RF mecobalamin (vitamin B12) 1,000 mcg tablet,chewable 1,000 mcg PO QDAY Qty: 90 0RF risperidone 1 mg tablet 1.5 mg PO QHS ondansetron HCl 4 mg tablet 4 mg PO TID PRN (Reason: nausea) fluticasone furoate-vilanterol 200-25 mcg/dose blister with device 1 ea INHALATION Q24H magnesium oxide 400 mg magnesium capsule 400 mg PO QDAY Qty: 30 2RF Discontinued metformin 1,000 mg tablet 1,000 mg PO BID valsartan-hydrochlorothiazide [Diovan HCT] 320-12.5 mg tablet 1 tab PO DAILY metoprolol succinate [Toprol XL] 200 mg tablet extended release 24 hr 200 mg PO DAILY Ozempic 0.25 mg or 0.5 mg (2 mg/3 mL) pen injector 0.25 mg subcut QWEEK potassium chloride 20 mEq tablet,ER particles/crystals 20 meq PO DAILY Other Ambulatory Orders: Basic Metabolic Profile (BMP) (Routine) Timeframe: 3 Days Facility: [facility] - Location: Laboratory Ordered By: Dr. Jacques Muñoz Referrals / Follow Up: Memo Valdez MD [Med Staff - Consulting, Nephrology] - See Referral Note Referral Note: Call the office on 09/03/2025 for a follow-up appointment within 1 to 2 weeks, tell them that you were hospitalized and saw Dr. Valdez in the hospital Red Perez MD [Primary Care Provider, Family Practice] - See Referral Note Referral Note: In 2 weeks Disposition Disposition (needs filled in before D/C Order can be placed): Home, Self Care Charges/Coding Visit Charges Inpatient E&M: 60246 Disch Hosp >30min
--- NOTE | 2025-09-03 13:55 | PHA.DC_ITS ---
Pharmacy [facility] Counseling Pharmacy Service has performed discharge medication reconciliation and counseling for this patient. The patient's discharge medication list was reviewed for discrepancies and discrepancies were resolved. The patient was counseled on the following discharge medications and changes in medications for homegoing were reviewed. The Reason for Use, instructions for use, and potential side effects were reviewed for all new medications. The patient's questions regarding all of their medications were answered. 1. Metoprolol succinate 50 mg PO daily 2. Valsartan 80 mg PO daily 3. Metformin 1000 mg ER PO BID The patient was able to verbally demonstrate an understanding of their discharge medications. Medications at Discharge Home Medications gemfibrozil 600 mg tablet 600 mg PO BID high blood pressu 11/10/22 lamotrigine 150 mg tablet 150 mg PO BID high blood pressure 11/10/22 levothyroxine 88 mcg tablet (Levoxyl) 88 mcg PO DAILY hypo thyroid 11/10/22 oxybutynin chloride 5 mg tablet 5 mg PO BID bladder 03/05/25 fluoxetine 20 mg capsule (Prozac) 60 mg PO DAILY bipolar 03/08/25 folic acid 1 mg tablet 1 mg PO QDAY supplement #90 tabs 05/07/25 mecobalamin (vitamin B12) 1,000 mcg chewable tablet 1,000 mcg PO QDAY supplement #90 tabs 05/07/25 magnesium oxide 400 mg PO QDAY supplement #30 caps 06/01/25 risperidone 1 mg tablet 1.5 mg PO QHS rls 06/04/25 fluticasone furoate 200 mcg-vilanterol 25 mcg/dose inhalation powder 1 ea inhalation Q24H asthma 08/31/25 ondansetron HCl 4 mg tablet 4 mg PO TID PRN nausea 08/31/25 metformin 1,000 mg tablet,extended release 24hr (osmotic) (Fortamet) 1,000 mg PO BID 30 days #60 tabs 09/03/25 metoprolol succinate 50 mg tablet,extended release 24 hr (Toprol XL) 50 mg PO DAILY #30 tabs 09/03/25 valsartan 80 mg tablet 80 mg PO DAILY #30 tabs 09/03/25
[2025-09-03 15:15] VITALS: BP 139/86; PULSE 111; RESP 15; TEMP 36.3; O2SAT 99
[2025-09-04 14:09] LABS: Anti-dsDNA Ab <1 IU/mL (0-9)
[2025-09-04 20:08] LABS: Cytoplasmic Ab (C-ANCA) <1:20 titer (Neg:<1:20); Perinuclear Ab (P-ANCA) <1:20 titer (Neg:<1:20)
== END 2025-09-03 15:34 | disposition home or self-care (01) | DRG 682 ==
LOC: ED 11:45 → MS3 13:08
PROVIDERS: Internal Medicine Nephrology; Admitting Provider Internal Medicine; Emergency Provider Emergency Medicine; PCP Family Medicine; Visit Provider Hospitalist
DX: N17.9 Acute kidney failure, unspecified (principal); E43 Unspecified severe protein-calorie malnutrition; E87.20 Acidosis, unspecified; E87.1 Hypo-osmolality and hyponatremia; E11.9 Type 2 diabetes mellitus without complications; D50.9 Iron deficiency anemia, unspecified; F31.9 Bipolar disorder, unspecified; E03.9 Hypothyroidism, unspecified; I10 Essential (primary) hypertension; J45.909 Unspecified asthma, uncomplicated; Z68.33 Body mass index [BMI] 33.0-33.9, adult; S82.64XA Nondisplaced fracture of lateral malleolus of right fibula, initial encounter for closed fracture; F41.9 Anxiety disorder, unspecified; S00.03XA Contusion of scalp, initial encounter; W19.XXXA Unspecified fall, initial encounter; E86.0 Dehydration; I95.1 Orthostatic hypotension; R11.2 Nausea with vomiting, unspecified; T50.2X5A Adverse effect of carbonic-anhydrase inhibitors, benzothiadiazides and other diuretics, initial encounter; T38.3X5A Adverse effect of insulin and oral hypoglycemic [antidiabetic] drugs, initial encounter; N32.81 Overactive bladder; Y92.000 Kitchen of unspecified non-institutional (private) residence as the place of occurrence of the external cause; Z79.51 Long term (current) use of inhaled steroids; Z79.85 Long-term (current) use of injectable non-insulin antidiabetic drugs; Z79.84 Long term (current) use of oral hypoglycemic drugs; Z79.890 Hormone replacement therapy; Z79.899 Other long term (current) drug therapy; Z87.891 Personal history of nicotine dependence
CPT/HCPCS: 36415; 70450; 71045; 73610; 76770; 80048; 80076; 81001; 82570; 82962; 83520; 83605; 83883; 84156; 84484; 85025; 85610; 85730; 86037; 86160; 86225; 93005; 97116; 97162; 97166; 97530; 97535; 97803; 99285; A4216

== ENCOUNTER → 2025-09-07 | Outpatient (CLI) | payer OTHER, SELFPAY ==
[2025-09-07 12:36] LABS: Anion Gap 16 (5-15); BUN 12 mg/dL (4-19); BUN/Creat Ratio 10.4 RATIO (10-20); Calcium,Total 9.2 mg/dL (7.6-11.0); Carbon Dioxide 20.8 mmol/L (21.0-32.0); Chloride 103 mmol/L (98-108); Glucose 135 mg/dL (70-99); Potassium 4.2 mmol/L (3.3-5.1)
== END | disposition home or self-care (01) ==
LOC: MTLAB 11:14
PROVIDERS: Hospitalist; PCP Family Medicine; Referring Provider Physician Assistant; Visit Provider Physician Assistant
DX: Z01.818 Encounter for other preprocedural examination (principal); N17.9 Acute kidney failure, unspecified
CPT/HCPCS: 36415; 80048; 83036

== ENCOUNTER → 2025-09-14 | Outpatient (CLI) | payer OTHER, SELFPAY ==
[2025-09-14 12:26] LABS: Hematocrit 28.0 % (37-47); Hemoglobin 8.3 g/dL (12.0-15.0); Immature Granulocytes Count 0.070 X10^3/uL (0.0-0.0); Mean Corp Hgb Conc 29.6 g/dL (32-36); Mean Corpuscular Volume 91.2 fL (81-99); Mean Platelet Vol. 9.0 fl (6.2-12.0); NRBC Flagged by Analyzer 0 % (0-5); POSITIVE MORPHOLOGY YES; Platelet Count 355 K/mm3 (150-450); RBC Distribution Width CV 21.7 % (11.6-14.6); RBC Distribution Width SD 67.2 fl (35.1-43.9); Red Blood Count 3.07 M/mm3 (4.2-5.4); White Blood Count 5.1 K/mm3 (4.4-11.0)
[2025-09-14 12:28] LABS: Differential Indicated SCAN CRITERIA MET
[2025-09-14 13:02] LABS: Anisocytosis 2+; Polychromasia 1+
== END | disposition home or self-care (01) ==
LOC: MFPLAB 11:06
PROVIDERS: PCP Family Medicine; Visit Provider Family Medicine
DX: K92.2 Gastrointestinal hemorrhage, unspecified (principal)
CPT/HCPCS: 36415; 85025

== ENCOUNTER → 2025-09-24 | Outpatient (CLI) | payer OTHER, SELFPAY ==
--- NOTE | 2025-09-24 07:11 | US_ITS ---
PROCEDURE: ABD LIMITED W/ ELASTOGRAPHY REASON FOR EXAM: ANEMIA, GENERAL WEAKNESS COMPARISON: None. TECHNIQUE: Procedure Code: [id number] Modality: US Procedure: ABD LIMITED W/ ELASTOGRAPHY Right upper quadrant abdominal ultrasound. [employer] [facility] shear wave elastography for non-invasive assessment of liver tissue stiffness. [employer]. FINDINGS: LIVER: Size: Enlarged (hepatomegaly) Length: 20.1 cm Echotexture: Diffusely echogenic suggesting fatty infiltration Contour: Normal Lesions: None identified Elastography: EQI Med: 6.0 kPa EQI Med Dung: 1.4 m/s IQR/Med: 16.3 %* GALLBLADDER: Multiple echogenic gallstones are identified. COMMON BILE DUCT: Normal measuring 6 mm . PANCREAS: Visualized portions are unremarkable. The distal body and tail are obscured by bowel gas. Visualized portions of the right kidney are unremarkable. No right upper quadrant ascites. US/ABD Limited w/ Elastography IMPRESSION: Mild hepatic fibrosis. Fatty infiltration of the liver. Multiple gallstones. Reference Values: SRU <1.37 m/s (5.7kPa): No to mild fibrosis 1.37 m/s - 2.2 m/s: Moderate to severe fibrosis >2.2 m/s (15kPa): Significant fibrosis / cirrhosis METAVIR Score F2 or higher: 1.34 m/s (5.7kPa) F3 or higher: 1.55 m/s (7.3kPa) F4: 1.80 m/s (10kPa) * If the IQR/Med is >30%, the variance in the measurements is a large and the a ccuracy of the measurement may be in question. Reading Location: [place] [id number]
--- OUTSIDE RECORDS SUMMARY | 2025-09-24 07:15 | XMS RPT_ITS | CCD ---
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 Red Perez Primary Care Provider Cristy Hernandez Attending Provider Unavailable Dr. Red Perez Referring Provider Dr. Lamine Marie Attending Provider [...] Dr. Moon Primary Care Provider Dr. Red Perez MD Attending Provider Ana JARAMILLO, Dr. Moon Referring Provider Julio JARAMILLO, Dr. Nikolai Mon Attending Provider Julio JARAMILLO, Dr. Nikolai Mon Referring Provider Dr. Red Perez MD Primary Care Provider Dr. Red Perez MD Referring Provider Ana JARAMILLO, Dr. Moon Attending Provider Ana JARAMILLO, Dr. Moon Primary Care Physician Ana JARAMILLO, Dr. Moon Referring Provider Ari JARAMILLO, Dr. Carroll Attending Physician Julio JARAMILLO, Dr. Nikolai Mon Attending Physician Ana JARAMILLO, Dr. Moon Attending Physician Ana JARAMILLO, Dr. Moon Primary Care Physician Ana JARAMILLO, Dr. Moon Referring Provider Ari JARAMILLO, Dr. Carroll Attending Physician Ari JARAMILLO, Dr. Carroll Nurse Practitioner Ari JARAMILOL, Dr. Carroll Referring Provider Steve SHANE, Dr. Slade Emergency Department Physi gabrielle Jalyn SHANE, Dr. Landry Admitting Physician Jalyn SHANE, Dr. Landry Nurse Practitioner José Miguel JARAMILLO, Dr. Hampton Nurse Practitioner Toni SHANE, Dr. Hanna Attending Physician Jalyn SHANE, Dr. Landry Attending Physician Toni SHANE, Dr. Hanna Nurse Practitioner Ana JARAMILLO, Dr. Moon Nurse Practitioner Mela Tom Attending Physician Mela Tom Referring Provider Ana JARAMILLO, Dr. Moon Primary Care Physician Ana JARAMILLO, Dr. Moon Referring Provider Ari JARAMILLO, Dr. Carroll Attending Physician Julio JARAMILLO, Dr. Nikolai Mon Attending Physician Julio JARAMILLO, Dr. Nikolai Mon Referring Provider Ana JARAMILLO, Dr. Moon Attending Physician Ari JARAMILLO, Dr. Carroll Nurse Practitioner Dr. Glen Chapman MD Referring Provider Dr. Berlin Wilson DO Emergency [facility], Dr. Landry Admitting Physician Jalyn SHANE, Dr. Landry Nurse Practitioner José Miguel JARAMILLO, Dr. Hampton Nurse Practitioner Toni SHANE, Dr. Hanna Attending Physician Jalyn SHANE, Dr. Landry Attending Physician Toni SHANE, Dr. Hanna Nurse Practitioner Ana JARAMILLO, Dr. Moon Nurse Practitioner Mela Tom Attending Physician Mela Tom Referring Provider JEM JAVIER DR Attending Unavailable JEM JAVIER DR Primary Care Unavailable JEM JAVIER DR Admitting Unavailable Ana JARAMILLO, Dr. Moon Primary Care Physician Dr. Red Perez MD Referring Provider Ari JARAMILLO, Dr. Carroll Attending Physician Julio JARAMILLO, Dr. Nikolai Mon Attending Physician Julio JARAMILLO, Dr. Nikolai Mon Referring Provider Dr. Red Perez MD Attending Physician Ari JARAMILLO, Dr. Carroll Nurse Practitioner Dr. Glen Chapman MD Referring Provider Dr. Berlin Wilson DO Emergency Department [facility]i [facility]abrielle [facility], Dr. Landry Admitting Physician Jalyn SHANE, Dr. Landry Nurse Practitioner José Miguel JARAMILLO, Dr. Hampton Nurse Practitioner Toni SHANE, Dr. Hanna Attending Physician Jalyn DO, Dr. Landry Attending Physician [phone] Toni SHANE, Dr. Hanna Nurse Practitioner Ana JARAMILLO, Dr. Moon Nurse Practitioner Mela Tom Attending Physician [phone] Mela Tom Referring Provider John Damian Attending Unavailable Perez, Red Referring Unavailable Perez, Red Consulting Unavailable Perez, Red Primary Care Unavailable José Miguel, Memo Consulting Unavailable Perez, Red Primary Care Unavailable Tereletsdano, Frantz Admitting Unavailable Jalyn, Frantz Attending Unavailable Jalyn, Frantz Consulting Unavailable Jacques Muñoz Attending Unavailable Jacques Muñoz Consulting Unavailable Perez, Red Primary Care Unavailable JULIAN INGRAM Consulting Unavailable Perez, Red Referring Unavailable Perez, Red Attending Unavailable Perez, Red Primary Care Unavailable Perez, Red Referring Unavailable Perez, Red Attending Unavailable SibiliaNikolai V Attending Unavailable Sibilia, Nikolai Mon Referring Unavailable Perez, Red Primary Care Unavailable Prah, Glen Attending Unavailable Prah, Glen Referring Unavailable Perez, Red Primary Care Unavailable Perez, Red Primary Care Unavailable Yamila Stein Attending Unavailable Perez, Red Attending Unavailable Perez, Red Primary Care Unavailable Perez, Red Primary Care Unavailable Mela Tom Attending Unavailable Mela Tom Referring Unavailable Jacques Muñoz Consulting Unavailable Perez, Red Consulting Unavailable Perez, Red Primary Care Unavailable Perez, Red Attending Unavailable Perez, Red Primary Care Unavailable Perez, Red Referring Unavailable Perez, Red Attending Unavailable José Miguel, Memo Consulting Unavailable Jacques Muñoz Attending Unavailable Perez, Red Primary Care Unavailable TerFrantz braswell Admitting Unavailable Jalyn, Frantz Consulting Unavailable Perez, Red Primary Care Unavailable PrahGlen Attending Unavailable PrahGlen Referring Unavailable Perez, Red Primary Care Unavailable Perez, Red Referring Unavailable Perez, Red Attending Unavailable SibiliaNikolai V Attending Unavailable Sibilia, Nikolai Mon Referring Unavailable Perez, Red Primary Care Unavailable Perez, Red Attending Unavailable Perez, Red Primary Care Unavailable Perez, Red Primary Care Unavailable Jaiden MILK DELIVERY DRIVER, Enrique Pino Attending Unavailable Perez, Red Referring Unavailable Perez, Red Attending Unavailable PrahGlen Consulting Unavailable Ana, Red Referring Unavailable Perez, Red Primary Care Unavailable Prarito, Glen Attending Unavailable Ana, Red Referring Unavailable Perez, Red Primary Care Unavailable Perez, Red Primary Care Unavailable Perez, Red Referring Unavailable PraGlen pino Attending Unavailable Prarito, Glen Attending Unavailable Perez, Red Referring Unavailable Perez, Red Primary Care Unavailable Prarito, Glen Attending Unavailable Perez, Red Referring Unavailable Perez, Red Primary Care Unavailable Medications Current Medications Medication Drug Class(es) Dates Sig (Normalized) Sig (Original) 30 actuat fluticasone furoate 0.2 mg/actuat / vilanterol 0.025 mg/actuat dry powder inhaler (3 sources) Corticosteroid, beta2-Adrenergic Agonist Start: 08-31-2025 Start: 08-31-2025 folic acid 1 mg oral tablet (8 sources) Start: 05-07-2025 gemfibrozil 600 mg oral tabl et (16 sources) Peroxisome Proliferator Receptor alpha Agonist Start: 11-10-2022 lamoTRIgine 150 mg oral tabl et (16 sources) Mood Stabilizer, Anti-epileptic Agent Start: 11-10-2022 levothyroxine sodium 0.088 m g oral tablet (16 sources) l-Thyroxine Start: 11-10-2022 magnesium oxide 400 mg oral capsule (15 sources) Start: 05-07-2025 End: 06-01-2025 mecobalamin 1 mg chewable ta blet (8 sources) Start: 05-07-2025 osmotic 24 hr metFORMIN hydrochloride 1000 mg extended release oral tablet (19 sources) Biguanide Start: 09-03-2025 Start: 09-03-2025 Start: 09-03-2025 take 1 tablet by mouth twice d aily Start: 11-10-2022 End: 09-02-2025 24 hr metoprolol succinate 5 0 mg extended release oral tablet (19 sources) beta-Adrenergic David Start: 09-03-2025 Start: 09-03-2025 Start: 09-03-2025 take 1 tablet by mouth once da nikki Start: 11-10-2022 End: 09-02-2025 ondansetron 4 mg oral tablet (3 sources) Serotonin-3 Receptor Antagonist Start: 08-31-2025 Start: 08-31-2025 take 1 tablet by mouth three t imes daily as needed for nausea oxybutynin chloride 5 mg ora l tablet (11 sources) Cholinergic Muscarinic Antagonist Start: 03-05-2025 risperiDONE 1 mg oral tablet (20 sources) Atypical Antipsychotic Start: 06-04-2025 Start: 06-04-2025 take 1.5 mg by mouth at bedtim e Start: 11-10-2022 End: 06-04-2025 Start: 11-10-2022 End: 06-04-2025 take 1 tablet by mouth at bedtime Risperidone (Risperdal) 2 mg tablet Discontinued 2 mg PO AT BEDTIME November 10, 2022 1:00am June 04, 2025 11:17am valsartan 80 mg oral tablet (3 sources) Angiotensin 2 Receptor David Start: 09-03-2025 Start: 09-03-2025 Start: 09-03-2025 take 1 tablet by mouth once da nikki Completed/Discontinued Medications Medication Drug Class(es) Dates Sig (Normalized) Sig (Original) azithromycin 250 mg oral tablet (11 sources) Macrolide Antimicrobial Start: 10-08-2024 End: 03-05-2025 cloNIDine hydrochloride 0.1 mg oral tablet (20 sources) Central alpha-2 Adrenergic Agonist Start: 11-10-2022 End: 08-27-2025 Start: 11-10-2022 End: 03-08-2025 take 1 tablet by mouth twice daily Clonidine Hcl 0.1 mg tablet Discontinued 0.1 mg PO TWICE A DAY November 10, 2022 1:00am March 08, 2025 8:30am FLUoxetine 20 mg oral capsul e (20 sources) Serotonin Reuptake Inhibitor Start: 11-10-2022 End: 03-08-2025 Start: 11-10-2022 End: 03-08-2025 Start: 11-10-2022 End: 03-05-2025 take 1 capsule by mouth once daily Fluoxetine (Prozac) 20 mg capsule Discontinued 20 mg PO DAILY November 10, 2022 1:00am March 05, 2025 4:41pm hydroCHLOROthiazide 12.5 mg / valsartan 320 mg oral tablet (16 sources) Thiazide Diuretic, Angiotensin 2 Receptor David Start: 11-10-2022 End: 09-02-2025 Start: 11-10-2022 End: 09-02-2025 Valsartan-Hydrochlorothiazid e (Diovan Hct) 320-12.5 mg tablet Discontinued 1 {tbl} PO DAILY November 10, 2022 1:00am September 02, 2025 12:21pm blood pressure Methylprednisolone (11 sources) Corticosteroid Start: 10-08-2024 End: 03-05-2025 Start: 10-08-2024 End: 03-05-2025 take 1 tablet by mouth once Methylprednisolone (Medrol (Navneet)) 4 mg tablets,dose pack Discontinued 0 PO per package directions October 08, 2024 1:00am March 05, 2025 4:41pm PO PER PKG DIR microencapsulated potassium chloride 20 meq extended release oral tablet (6 sources) Start: 08-31-2025 End: 09-02-2025 Start: 08-27-2025 End: 08-31-2025 Semaglutide (3 sources) Start: 08-27-2025 End: 09-02-2025 Start: 08-27-2025 End: 09-02-2025 Semaglutide (Ozempic) 0.25 m g or 0.5 mg (2 mg/3 mL) pen injector Discontinued 0.25 mg SC EVERY WEEK August 27, 2025 12:00am September 02, 2025 12:20pm On Hold: skipped this week 08/31/25 Problems Active Problems Problem Classification Problem Date Documented Da te Episodic/Chronic Acute and unspecified renal failure (8 sources) Acute renal failure syndrome; Translations: [Acute kidney failure, unspecified] Onset: 5 09-04-2025 Episodic Asthma (1 source) Moderate persistent asthma, uncomplicated; Translations: [Moderate persistent asthma, uncomplicated] Onset: Chronic Deficiency and other anemia (20 sources) [...] is normal today. Hgb is 11.3 today. Got IV Iron replacem ent.Iron profile is normal today. Hgb has dropped to 10.3 today. Deficiency and other anemia (6 sources) Anemia; Translations: [Anemia, unspecified] 03-08-2025 Episodic Deficiency and other anemia (2 sources) Iron deficiency anemia, unspecified; Translations: [Iron deficiency anemia, unspecified] Onset: Episodic Deficiency and other anemia (9 sources) Deficiency and other anemia Diabetes mellitus without complication (17 sources) Diabetes mellitus; Translations: [Type 2 diabetes mellitus without complications] Onset: 5 11-10-2022 Chronic Fluid and electrolyte disorders (6 sources) Acute hyponatremia; Translations: [Hypo-osmolality and hyponatremia] 09-04-2025 Episodic Fracture of lower limb (6 sources) Other fracture of right lower leg, initial encounter for closed fracture; Translations: [Fracture of right ankle] 09-04-2025 Episodic Gastrointestinal hemorrhage (1 source) Gastrointestinal hemorrhage, unspecified; Translations: [Gastrointestinal hemorrhage, unspecified] Onset: Episodic Malaise and fatigue (8 sources) Asthenia; Translations: [Weakness] Onset: 5 09-11-2025 Episodic Nutritional deficiencies (20 sources) Cobalamin deficiency; Translations: [Deficiency of other specified B group vitamins] Onset: 5 05-07-2025 Episodic Comment on above: B12 level is normal today. Other lower respiratory disease (1 source) Shortness of breath; Translations: [Shortness of breath] Onset: Episodic Other nutritional; endocrine; and metabolic disorders (20 sources) Hypomagnesemia; Translations: [Hypomagnesemia] 05-07-2025 Chronic Other nutritional; endocrine; and metabolic disorders (1 source) Hypomagnesemia; Translations: [Hypomagnesemia] Onset: Chronic Other screening for suspected conditions (not mental disorders or infectious disease) (20 sources) Patient encounter status; Translations: [Encounter for screening for malignant neoplasm of colon] 11-10-2022 Episodic Superficial injury; contusion (6 sources) Hematoma of occipital scalp; Translations: [Contusion of scalp, initial encounter] 09-04-2025 Episodic Syncope (7 sources) Syncope; Translations: [Syncope and collapse] Onset: 1109-04-2025 Episodic Unclassified (1 source) In 2 weeks Past or Other Problems Problem Classification Problem Date Documented Da te Episodic/Chronic Deficiency and other anemia (1 source) Anemia, unspecified; Translations: [Anemia, unspecified] Onset: 04-03-2025 Episodic Nonspecific chest pain (2 sources) Chest pain, unspecified; Translations: [Chest pain, unspecified] Onset: 04-30-2025 Episodic Other upper respiratory infections (12 sources) Upper respiratory infection; Translations: [Acute upper respiratory infection, unspecified] Onset: 10-08-2024 10-08-2024 Episodic Results Test Name Value Interpretation Reference Range Facility OPERATIVE PROCEDURESon 09-18 OPERATIVE PROCEDURES [facility] OPERATIVE REPORT NAME ACCOUNT SEX AGE ADMIT DISCHARGE PT MED. RECORD# NUMBER DATE DATE TYPE DARRYL [id number] F 55 09/11/25 09/11/25 2 HEIDI Hernandez [id number] ROOM: [facility] DATE OF : 1970 DICTATING PHYSICIAN: Jem Javier DATE OF SURGERY: September 11, 2025 SURGEON: Jem Javier MD FARM OWNER OPERATOR: Mela Ruiz PA-C ANESTHESIOLOGIST: Rigo Remy DO ANESTHETIC: Spinal. PREOPERATIVE DIAGNOSIS: Right ankle bimalleolar fracture with syndesmosis disruption. POSTOPERATIVE DIAGNOSIS: Right ankle bimalleolar fracture with syndesmosis disruption. OPERATION PERFORMED: Open reduction/internal fixation of right ankle bimalleolar fracture with internal fixation of syndesmosis disruption. COMPLICATIONS: None. ESTIMATED BLOOD LOSS: Minimal. SPECIAL MEDICATIONS: Ancef and tranexamic acid 1 gram IV. INDICATIONS FOR SURGERY: The patient is a 55-year-old female who had a syncopal episode and broke her right ankle recently. She underwent work-up in the Emergency Room. Her primary care physician is aware of her condition. The patient wished to have surgery. Appropriate informed consent was obtained and signed. FINDINGS: Findings showed an unstable fracture with a Garcia B-type lateral malleolus fracture, posterior malleolar fracture, unstable ankle mortise, and deltoid ligament tear. She underwent standard internal fixation with open reduction of the fibula fracture and internal fixation with an Arthrex FibuLock retrograde nail, size 3.8 mm diameter, 130 mm length. We used two 3 mm screws distally, 14 mm in length. We used a TightRope device for internal fixation of the syndesmosis, and we did place a cap screw on the Page 1 of 3 HEIDI ANDREWS Operative Report HEIDI ANDREWS : 1970 device. This stabilized the ankle nicely through full range of motion, and with testing of the syndesmosis there was nice stability noted. mechanic's assistant/physician assistant professor surgical technology was helping throughout the entire procedure. She helped with patient positioning, holding of limb, and holding of retractors. She helped with exposure of the fracture, reduction, and maintenance of reduction of the fracture of the fibula. She helped with internal fixation, including the FibuLock nail, cross-locking screws, and TightRope device. She helped with syndesmosis fixation and stabilization as well as casting, wound closure, and patient transfer. Without the surgical services manager and her expertise, surgical time would have been increased, and surgical outcome could have been less optimal. DESCRIPTION OF OPERATION: The patient was taken to the operating room and transferred to the OR table. She was given a spinal anesthetic. No tourniquet was utilized. Appropriate time-out was performed. Ancef and tranexamic acid were given IV preoperatively. LAY hose and an SCD were placed on the nonoperative left lower extremity. The right lower extremity was positioned with some bumps underneath the lower leg. Fluoroscopy was brought in to confirm our x-ray visualization. Stress testing of the ankle was done and showed significant widening of the medial joint space as well as syndesmosis. She underwent standard prep, padding and draping of the right lower extremity from the mid-thigh down. We did place a sterile glove over her foot, which had previously been prepped additionally as well. Fluoroscopy was brought in. We mapped out the position of the fibula. We made a longitudinal incision distal to the tip of the fibula after appropriate time-outs had been done. A hemostat took me down to the tip of the fibula, verified under AP and lateral fluoroscopic images. We then placed the guide system for the nail. We placed a guide pin from the tip of the fibula aiming up the shaft of the fibula on all views. This was then placed. Prior to placing our guide pin, we did open the fracture site with a longitudinal incision over the bone. Careful blunt dissection brought us down to the bone. The fracture was reduced with the help of the assistant professor surgical technology, who was pulling traction on the leg as well as rotating. A clamp was placed on the bone. Once we verified good reduction of the bone on all views, then we placed the guide pin as previously noted up inside the fibular shaft proximally. We then did the appropriate distal reaming and appropriate proximal reaming with the standard size and then the larger-sized reamer. We then placed the 3.8 mm diameter nail, 130 mm in length, up inside the bone. We appropriately positioned it based on the external alignment guide as well as the position for our syndesmosis fixation. At this point, we appropriately positioned the outrigger device and held it in place with the guide pain. We used the screwdriver to deploy the talons from the proximal portion of the nail. Once that was done, another incision was made longitudinally in between t (more content not included)... Normal [facility] Absolute lymphocyte countOrd ered By: Red Perez on 09-14-2025 Lymphocytes Auto (Unsp spec) [#/Vol] 0.79 10*3/uL Low 0.83-4.51 [facility] Automated lymphocyte count a s percentage of total leukocytesOrdered By: Red Perez on 09-14-2025 Lymphocytes/100 WBC Auto (Unsp spec) 15.4 % Low 19-41 [facility] Basophil percentageOrdered B y: Red Perez on 09-14-2025 Basophils/100 WBC (Bld) 0.2 % 0-1 [facility] Blood polychromasia detectio n by light microscopyOrdered By: Red Perez on 09-14-2025 Polychromasia LM Ql (Bld) 1+ [facility] Blood spherocyte detection b y light microscopyOrdered By: Red Perez on 09-14-2025 Spherocytes LM Ql (Bld) 1+ High [facility] CBC W/Diff, Automatedon 08-17 Anisocytosis Ql (Bld) 2+ Normal [facility] Comment on above: Performed By: #### L 503.0106, L500.4050, L501.1400, L400.0001, L503.6030, L3000.0800, L100.9950, L3890.6006, L501.5101, L100.0100, L504.2610, L501.5200, L506.0200, L3410.9992, L101.9900, L3100.1350, L3200.1200, L503.6550, L3200.0500, L501.6710 #### [facility] [address] [place], [place], [id number] POLYCHROMASIA 1+ Normal [facility] Comment on above: Performed By: #### L 503.0106, L500.4050, L501.1400, L400.0001, L503.6030, L3000.0800, L100.9950, L3890.6006, L501.5101, L100.0100, L504.2610, L501.5200, L506.0200, L3410.9992, L101.9900, L3100.1350, L3200.1200, L503.6550, L3200.0500, L501.6710 #### [facility] [address] [place], [place], [id number] SPHEROCYTE 1+ Abnormal [facility] Comment on above: Performed By: #### L 503.0106, L500.4050, L501.1400, L400.0001, L503.6030, L3000.0800, L100.9950, L3890.6006, L501.5101, L100.0100, L504.2610, L501.5200, L506.0200, L3410.9992, L101.9900, L3100.1350, L3200.1200, L503.6550, L3200.0500, L501.6710 #### [facility] [address] [place], [address] Eosinophil percentageOrdered By: Red Perez on 09-14-2025 Eosinophils/100 WBC (Bld) 3.3 % 0-5 [facility] Erythrocyte distribution wid th ratioOrdered By: Red Perez on 09-14-2025 Erythrocyte distribution width (RBC) [Ratio] 21.7 % High 11.6-14.6 [facility] Erythrocyte distribution wid th standard deviationOrdered By: Red Perez on 09-14-2025 Erythrocyte distribution width (RBC) [Ratio] 67.2 fl High 35.1-43.9 [facility] Hematocrit Auto (Bld) [Volum e fraction]Ordered By: Red Perez on 09-14-2025 Hematocrit (Bld) [Volume fraction] 28.0 % Low 37-47 [facility] Hemoglobin measurementOrdere d By: Red Perez on 09-14-2025 Hemoglobin (Bld) [Mass/Vol] 8.3 g/dL Low 12.0-15. 0 [facility] Immature granulocytes/100 WB C Auto (Bld)Ordered By: Red Perez on 09-14-2025 Immature granulocytes/100 WBC (Bld) 1.400 % High 0.0-0.9 [facility] MCV (mean corpuscular volume ) determinationOrdered By: Red Perez on 09-14-2025 MCV (RBC) [Entitic vol] 91.2 fL 81-99 [facility] Mean corpuscular hemoglobin (MCH) determinationOrdered By: Red Perez on 09-14-2025 MCH (RBC) [Entitic mass] 27.0 pg 27.0-32.0 [facility] Monocyte percentageOrdered B y: Red Perez on 09-14-2025 Monocytes/100 WBC (Bld) 5.7 % 0-10 [facility] Neutrophil percentageOrdered By: Red Perez on 09-14-2025 Neutrophils/100 WBC (Bld) 74.0 % High 47-70 [facility] No Panel InformationOrdered By: Red Perez on 09-14-2025 2+ [facility] Platelet countOrdered By: Edy Perez on 09-14-2025 Platelets (Bld) [#/Vol] 355 10*3/uL 150-450 [facility] RBC Auto (Bld) [#/Vol]Ordere d By: Red Perez on 09-14-2025 RBC (Bld) [#/Vol] 3.07 10*6/uL Low 4.2-5.4 [facility] White blood cell (WBC) count Ordered By: Red Perez on 09-14-2025 WBC (Bld) [#/Vol] 5.1 10*3/uL 4.4-11.0 [facility] C-ARM USAGE 1 HOUR C-ARM USAGE 1 HOUR [place] [id number] [facility] ? [place], [place] [address] ? Patient: HEIDI ANDREWS Phone#: : 1970 Age: 55 Gender: F Pt. Type: Out Account: [id number] Location: [id number] Ordering: JEM JAVIER Exam Date: 09/11/2025/11:51 Family Phys: Charge Code: [id number] Physician: Scott Order #: [id number] Dose#: 3.21 mGy PROCEDURE: C-ARM USEAGE 1 HR COMPARISON: None. INDICATIONS: Surgery. TOTAL DOSE: 3.21 mGy FINDINGS: IMAGES: BONES: There is internal fixation of the distal fibula and tibial fibular joint. Ankle mortise is anatomic position and alignment. SOFT TISSUES: Negative. No visible soft tissue swelling. EFFUSION: None visible. OTHER: Negative. CONCLUSION: 1. Internal fixation of oblique fracture of the distal fibula and widened medial ankle mortise. Dictated by: Leila Zamora MD on 09/11/2025 at 16:51 Approved by: Leila Zamora MD on 09/11/2025 at 16:53 Normal [facility] Anion gap in Serum or Plasma Ordered By: Jacques Muñoz on 09-07-2025 Anion gap [Moles/Vol] 16 mmol/L High 03-29 [facility] BUN/creatinine ratioOrdered By: Jacques Muñoz on 09-07-2025 Urea nitrogen/Creatinine [Mass ratio] 10.4 mg/mg 09-03 [facility] Basic Metabolic Profile (BMP )on 09-07-2025 BUN/CRE 10.4 RATIO Normal 09-03 [facility] Comment on above: Order Comment: DR. Seng COOL ALSO ORDERED BMPMELA RUIZ ORDERED A1C Performed By: #### L 503.0106, L500.4050, L501.1400, L400.0001, L503.6030, L3000.0800, L100.9950, L3890.6006, L501.5101, L100.0100, L504.2610, L501.5200, L506.0200, L3410.9992, L101.9900, L3100.1350, L3200.1200, L503.6550, L3200.0500, L501.6710 #### [facility] [address] [place], [place], [id number] Calcium [Mass/Vol] 9.2 mg/dL Normal 7.6-11.0 [facility] Comment on above: Order Comment: DR. Seng COOL ALSO ORDERED BMPBREANNE SARA ORDERED A1C Performed By: #### L 503.0106, L500.4050, L501.1400, L400.0001, L503.6030, L3000.0800, L100.9950, L3890.6006, L501.5101, L100.0100, L504.2610, L501.5200, L506.0200, L3410.9992, L101.9900, L3100.1350, L3200.1200, L503.6550, L3200.0500, L501.6710 #### [facility] [address], [place], [id number] Chloride [Moles/Vol] 103 mmol/L Normal 98-108 [facility] Comment on above: Order Comment: DR. Seng COOL ALSO ORDERED BMPBREANNE SARA ORDERED A1C Performed By: #### L 503.0106, L500.4050, L501.1400, L400.0001, L503.6030, L3000.0800, L100.9950, L3890.6006, L501.5101, L100.0100, L504.2610, L501.5200, L506.0200, L3410.9992, L101.9900, L3100.1350, L3200.1200, L503.6550, L3200.0500, L501.6710 #### [facility] [address] [place], [address] CO2 [Moles/Vol] 20.8 mmol/L Low 21.0-32.0 [facility] Comment on above: Order Comment: DR. Seng COOL ALSO ORDERED BMPBREANNE SARA ORDERED A1C Performed By: #### L 503.0106, L500.4050, L501.1400, L400.0001, L503.6030, L3000.0800, L100.9950, L3890.6006, L501.5101, L100.0100, L504.2610, L501.5200, L506.0200, L3410.9992, L101.9900, L3100.1350, L3200.1200, L503.6550, L3200.0500, L501.6710 #### [facility] [address] [place], [place], [id number] Creatinine [Mass/Vol] 1.14 mg/dL Normal 0.70-1.20 [facility] Comment on above: Order Comment: DR. Seng COOL ALSO ORDERED BMPBREANNE SARA ORDERED A1C Performed By: #### L 503.0106, L500.4050, L501.1400, L400.0001, L503.6030, L3000.0800, L100.9950, L3890.6006, L501.5101, L100.0100, L504.2610, L501.5200, L506.0200, L3410.9992, L101.9900, L3100.1350, L3200.1200, L503.6550, L3200.0500, L501.6710 #### [facility] [address] [place], [address] GAP 16 High 5-15 [facility] Comment on above: Order Comment: DR. Seng COOL ALSO ORDERED BMPBREANNE SARA ORDERED A1C Performed By: #### L 503.0106, L500.4050, L501.1400, L400.0001, L503.6030, L3000.0800, L100.9950, L3890.6006, L501.5101, L100.0100, L504.2610, L501.5200, L506.0200, L3410.9992, L101.9900, L3100.1350, L3200.1200, L503.6550, L3200.0500, L501.6710 #### [facility] [address] [facility] [place], [place], [id number] GFR/1.73 sq M.predicted among non-blacks MDRD (S/P/Bld) [Vol rate/Area] 58 mL/min/{1.73_m2} Low >60 [facility] Comment on above: Order Comment: DR. Seng COOL ALSO ORDERED BMPBREANNE SARA ORDERED A1C Result Comment: mL/m in/1.73m2 CKD-EPI Creatinine Equation (2020) Performed By: #### L 503.0106, L500.4050, L501.1400, L400.0001, L503.6030, L3000.0800, L100.9950, L3890.6006, L501.5101, L100.0100, L504.2610, L501.5200, L506.0200, L3410.9992, L101.9900, L3100.1350, L3200.1200, L503.6550, L3200.0500, L501.6710 #### [facility] [address] [facility] [place], [place], [id number] Glucose [Mass/Vol] 135 mg/dL High 70-99 [facility] Comment on above: Order Comment: DR. Seng COOL ALSO ORDERED BMPBREANNE SARA ORDERED A1C Performed By: #### L 503.0106, L500.4050, L501.1400, L400.0001, L503.6030, L3000.0800, L100.9950, L3890.6006, L501.5101, L100.0100, L504.2610, L501.5200, L506.0200, L3410.9992, L101.9900, L3100.1350, L3200.1200, L503.6550, L3200.0500, L501.6710 #### [facility] [address] [place], [place], [id number] (494) Potassium [Moles/Vol] 4.2 mmol/L Normal 3.3-5.1 [facility] Comment on above: Order Comment: DR. Seng COOL ALSO ORDERED BMPBREANNE SARA ORDERED A1C Performed By: #### L 503.0106, L500.4050, L501.1400, L400.0001, L503.6030, L3000.0800, L100.9950, L3890.6006, L501.5101, L100.0100, L504.2610, L501.5200, L506.0200, L3410.9992, L101.9900, L3100.1350, L3200.1200, L503.6550, L3200.0500, L501.6710 #### [facility] [address] [place], [place], [id number] (077) Sodium [Moles/Vol] 140 mmol/L Normal 133-145 [facility] Comment on above: Order Comment: DR. Seng COOL ALSO ORDERED BMPBREANNE SARA ORDERED A1C Performed By: #### L 503.0106, L500.4050, L501.1400, L400.0001, L503.6030, L3000.0800, L100.9950, L3890.6006, L501.5101, L100.0100, L504.2610, L501.5200, L506.0200, L3410.9992, L101.9900, L3100.1350, L3200.1200, L503.6550, L3200.0500, L501.6710 #### [facility] [address] [place], [place], [id number] (147) Urea nitrogen [Mass/Vol] 12 mg/dL Normal 4-19 [facility] Comment on above: Order Comment: DR. Seng COOL ALSO ORDERED BMPBREANNE SARA ORDERED A1C Performed By: #### L 503.0106, L500.4050, L501.1400, L400.0001, L503.6030, L3000.0800, L100.9950, L3890.6006, L501.5101, L100.0100, L504.2610, L501.5200, L506.0200, L3410.9992, L101.9900, L3100.1350, L3200.1200, L503.6550, L3200.0500, L501.6710 #### [facility] [address] [place], [place], [address] Carbon dioxide, total [Moles /volume] in Central venous bloodOrdered By: Jacques Muñoz on 09-07-2025 CO2 [Moles/Vol] 20.8 mmol/L Low 21.0-32.0 [facility] Chloride assayOrdered By: Nicanor Muñoz on 09-07-2025 Chloride [Moles/Vol] 103 mmol/L 98-108 [facility] Glomerular filtration rate ( GFR) estimation/1.73 sq m using serum, plasma, or whole bOrdered By: Jacques Muñoz on 09-07-2025 GFR/1.73 sq M.predicted among non-blacks MDRD (S/P/Bld) [Vol rate/Area] 58 mL/min/{1.73_m2} Low >60 [facility] Comment on above: mL/min/1.73m2 CKD-EP I Creatinine Equation (2020) Hemoglobin A1con 09-07-2025 HbA1c (Bld) [Mass fraction] 7.9 % High <=5.6 [facility] Comment on above: Order Comment: DR. Seng COOL ALSO ORDERED BMPBREANNE SARA ORDERED A1C Result Comment: Norm al < 5.7 % Prediabetic 5.7 - 6.4 % Diabetic >or= 6.5 % Please note range changes. Performed By: #### L 503.0106, L500.4050, L501.1400, L400.0001, L503.6030, L3000.0800, L100.9950, L3890.6006, L501.5101, L100.0100, L504.2610, L501.5200, L506.0200, L3410.9992, L101.9900, L3100.1350, L3200.1200, L503.6550, L3200.0500, L501.6710 #### [facility] [place], [address] Hemoglobin A1c percentageOrd ered By: Jacques Muñoz on 09-07-2025 HbA1c (Bld) [Mass fraction] 7.9 % High <5.7 [facility] Comment on above: Normal < 5.7 % Predi abetic 5.7 - 6.4 % Diabetic >or= 6.5 % Please note range changes. Potassium measurement (mass/ volume)Ordered By: Jacques Muñoz on 09-07-2025 Potassium (Unsp spec) [Mass/Vol] 4.2 mmol/L 3.3-5.1 [facility] Serum creatinine measurement (mass/volume)Ordered By: Jacques Muñoz on 09-07-2025 Creatinine [Mass/Vol] 1.14 mg/dL 0.70-1.20 [facility] Serum glucose measurement (m ass/volume)Ordered By: Jacques Muñoz on 09-07-2025 Glucose [Mass/Vol] 135 mg/dL High 70-99 [facility] Serum or plasma calcium sandy urement (mass/volume)Ordered By: Jacques Muñoz on 09-07-2025 Calcium [Mass/Vol] 9.2 mg/dL 7.6-11.0 [facility] Serum or plasma urea nitroge n measurement (mass/volume)Ordered By: Jacques Muñoz on 09-07-2025 Urea nitrogen [Mass/Vol] 12 mg/dL 4-19 [facility] Sodium levelOrdered By: Misael Muñoz on 09-07-2025 Sodium [Moles/Vol] 140 mmol/L 133-145 [facility] ANCAon 09-04-2025 Atypical pANCA <1:20 Normal Neg:<1:20 [facility] Comment on above: Result Comment: The atypical pANCA pattern has been observed in a significant percentage of patients with ulcerative colitis, primary sclerosing cholangitis and autoimmune hepatitis. Performed By: #### L 503.0106, L500.4050, L501.1400, L400.0001, L503.6030, L3000.0800, L100.9950, L3890.6006, L501.5101, L100.0100, L504.2610, L501.5200, L506.0200, L3410.9992, L101.9900, L3100.1350, L3200.1200, L503.6550, L3200.0500, L501.6710 #### [facility] [address] [place], [address] Cytoplasmic Ab <1:20 Normal Neg:<1:20 [facility] Comment on above: Performed By: #### L 503.0106, L500.4050, L501.1400, L400.0001, L503.6030, L3000.0800, L100.9950, L3890.6006, L501.5101, L100.0100, L504.2610, L501.5200, L506.0200, L3410.9992, L101.9900, L3100.1350, L3200.1200, L503.6550, L3200.0500, L501.6710 #### [facility] [address] [place], [address] Perinuclear Ab. <1:20 Normal Neg:<1:20 [facility] Comment on above: Result Comment: The presence of positive fluorescence exhibiting P-ANCA or C-ANCA patterns alone is not specific for the diagnosis of Lolis's Granulomatosis (WG) or microscopic polyangiitis. Decisions about treatment should not be based solely on ANCA IFA results. The [employer] ANCA [employer] Consensus recommends follow up testing of positive sera with both AZ- 3 and MPO-ANCA enzyme immunoassays. As many as 5% serum samples are positive only by EIA. Ref. AM J Clin Pathol 1999;111:507-513. Performed By: #### L 503.0106, L500.4050, L501.1400, L400.0001, L503.6030, L3000.0800, L100.9950, L3890.6006, L501.5101, L100.0100, L504.2610, L501.5200, L506.0200, L3410.9992, L101.9900, L3100.1350, L3200.1200, L503.6550, L3200.0500, L501.6710 #### [facility] [address] [place], [address] Anti-Glomerular Basement Mem bon 09-04-2025 ANTI-GLOM BM Ab < 0.2 Normal 0.0-0.9 [facility] Comment on above: Result Comment: Perf ormed at: [address] [id number] [employer] Operator: Preston Ashley PhD, Phone: [phone] Performed at: [address] [id number] [employer] Operator: Lauren Hendricks MD, Phone: [phone] Performed By: #### L 503.0106, L500.4050, L501.1400, L400.0001, L503.6030, L3000.0800, L100.9950, L3890.6006, L501.5101, L100.0100, L504.2610, L501.5200, L506.0200, L3410.9992, L101.9900, L3100.1350, L3200.1200, L503.6550, L3200.0500, L501.6710 #### [facility] [address] [place], [address] Anti-dsDNA Abon 09-04-2025 ANTI-DNA (DS)AB <1 Normal 0-9 [facility] Comment on above: Result Comment: Nega tive <5 Equivocal 5 - 9 Positive >9 Performed at: [address] [id number] [employer] Operator: Preston Ashley PhD, Phone: [phone] Performed By: #### L 503.0106, L500.4050, L501.1400, L400.0001, L503.6030, L3000.0800, L100.9950, L3890.6006, L501.5101, L100.0100, L504.2610, L501.5200, L506.0200, L3410.9992, L101.9900, L3100.1350, L3200.1200, L503.6550, L3200.0500, L501.6710 #### [facility] [address] [place], [place], [id number] Complement C3on 09-04-2025 COMP C3 151 mg/dL Normal 82-167 [facility] Comment on above: Performed By: #### L 503.0106, L500.4050, L501.1400, L400.0001, L503.6030, L3000.0800, L100.9950, L3890.6006, L501.5101, L100.0100, L504.2610, L501.5200, L506.0200, L3410.9992, L101.9900, L3100.1350, L3200.1200, L503.6550, L3200.0500, L501.6710 #### [facility] [address] [place], [place], [address] [place] Lambda Light Chainson 09-04-2025 FR KAPPA LT CHN 20.9 mg/L Abnormal 3.3-19.4 [facility] Comment on above: Performed By: #### L 503.0106, L500.4050, L501.1400, L400.0001, L503.6030, L3000.0800, L100.9950, L3890.6006, L501.5101, L100.0100, L504.2610, L501.5200, L506.0200, L3410.9992, L101.9900, L3100.1350, L3200.1200, L503.6550, L3200.0500, L501.6710 #### [facility] [address] [place], [address] FR LAMBDA LT CH 15.5 mg/L Normal 5.7-26.3 [facility] Comment on above: Performed By: #### L 503.0106, L500.4050, L501.1400, L400.0001, L503.6030, L3000.0800, L100.9950, L3890.6006, L501.5101, L100.0100, L504.2610, L501.5200, L506.0200, L3410.9992, L101.9900, L3100.1350, L3200.1200, L503.6550, L3200.0500, L501.6710 #### [facility] [address] [place], [address] KAPPA/LAMBDA % 1.35 Normal 0.26-1.65 [facility] Comment on above: Performed By: #### L 503.0106, L500.4050, L501.1400, L400.0001, L503.6030, L3000.0800, L100.9950, L3890.6006, L501.5101, L100.0100, L504.2610, L501.5200, L506.0200, L3410.9992, L101.9900, L3100.1350, L3200.1200, L503.6550, L3200.0500, L501.6710 #### [facility] [address] [place], [address] Anion gap in Serum or Plasma Ordered By: Frantz Gunderson on 09-03-2025 Anion gap [Moles/Vol] 12 mmol/L 03-29 [facility] BUN/creatinine ratioOrdered By: Frantz Gunderson on 09-03-2025 Urea nitrogen/Creatinine [Mass ratio] 8.2 mg/mg Low 09-03 [facility] Basic Metabolic Profile (BMP )on 09-03-2025 BUN/CRE 8.2 RATIO Low -20 [facility] Comment on above: Performed By: #### L 503.6005 #### [facility] [address] [place], [address] Calcium [Mass/Vol] 8.7 mg/dL Normal 7.6-11.0 [facility] Comment on above: Performed By: #### L 503.6005 #### [facility] [address] [place], [address] Chloride [Moles/Vol] 105 mmol/L Normal 98-108 [facility] Comment on above: Performed By: #### L 503.6005 #### [facility] [address] [place], [address] CO2 [Moles/Vol] 19.3 mmol/L Low 21.0-32.0 [facility] Comment on above: Performed By: #### L 503.6005 #### [facility] [address] [place], [address] Creatinine [Mass/Vol] 1.04 mg/dL Normal 0.70-1.20 [facility] Comment on above: Performed By: #### L 503.6005 #### [facility] [address] [place], [address] ECRCL 72.27 ml/min Normal 50-250 [facility] Comment on above: Performed By: #### L 503.6005 #### [facility] [address] [place], [address] GAP 12 Normal 5-15 [facility] Comment on above: Performed By: #### L 503.6005 #### [facility] [address] [place], [address] GFR/1.73 sq M.predicted among non-blacks MDRD (S/P/Bld) [Vol rate/Area] 64 mL/min/{1.73_m2} Normal >60 [facility] Comment on above: Result Comment: mL/m in/1.73m2 CKD-EPI Creatinine Equation (2020) Performed By: #### L 503.6005 #### [facility] [address] [place], [address] Glucose [Mass/Vol] 116 mg/dL High 70-99 [facility] Comment on above: Performed By: #### L 503.6005 #### [facility] [address] [place], [address] Potassium [Moles/Vol] 3.3 mmol/L Normal 3.3-5.1 [facility] Comment on above: Performed By: #### L 503.6005 #### [facility] [address] [place], [address] Sodium [Moles/Vol] 137 mmol/L Normal 133-145 [facility] Comment on above: Performed By: #### L 503.6005 #### [facility] [address] [place], [address] Urea nitrogen [Mass/Vol] 8 mg/dL Normal 4-19 [facility] Comment on above: Performed By: #### L 503.6005 #### [facility] [address] [place], [address] Bedside Glucoseon 09-03-2025 FINGERSTICK GLU 140 mg/dL High 74-106 [facility] Comment on above: Result Comment: DARÍO GRIMES OF PATIENT CARE PER NURSING PROTOCOL Performed By: #### L 503.0106, L500.4050, L501.1400, L400.0001, L503.6030, L3000.0800, L100.9950, L3890.6006, L501.5101, L100.0100, L504.2610, L501.5200, L506.0200, L3410.9992, L101.9900, L3100.1350, L3200.1200, L503.6550, L3200.0500, L501.6710 #### [facility] [address] [place], [place], [id number] (296) FINGERSTICK GLU 110 mg/dL High 74-106 [facility] Comment on above: Result Comment: DARÍO GRIMES OF PATIENT CARE PER NURSING PROTOCOL Performed By: #### L 503.0106, L500.4050, L501.1400, L400.0001, L503.6030, L3000.0800, L100.9950, L3890.6006, L501.5101, L100.0100, L504.2610, L501.5200, L506.0200, L3410.9992, L101.9900, L3100.1350, L3200.1200, L503.6550, L3200.0500, L501.6710 #### [facility] [address] [place], [place], [id number] Carbon dioxide, total [Moles /volume] in Central venous bloodOrdered By: Frantz Gunderson on 09-03-2025 CO2 [Moles/Vol] 19.3 mmol/L Low 21.0-32.0 [facility] Chloride assayOrdered By: Maria Eugenia Gunderson on 09-03-2025 Chloride [Moles/Vol] 105 mmol/L 98-108 [facility] Discharge Instructionon 08-16 Discharge Instruction [facility] Medical Records Department [address] [place] [address] Instructions for Home/Discharge Instructions 09/03/25 1228 MR#: [id number] Acct: [id number] Name: HEIDI ANDREWS Rep #: [id number] : 1970 55 From: Jacques Muñoz DO PCP: Dr. Red Perez MD Status:ADM IN Discharge Instructions DC O2, CPAP, BIPAP needs Home O2 Discharge instructions: No Dressing / Incision Weight Bearing Status: No weight bearing (right leg) Follow Up Care Test Results: Test results from this visit will be discussed in further detail at your follow-up appointment, if applicable. Discharge Plan Admission Admit Date/Time: 08/31/25 12:54 Primary Reason for Your Visit: Acute kidney injury, hyponatremia, starvation ketoacidosis Attending Provider: Jacques Muñoz Primary Care Provider: Red Perez Consulting Providers: Memo Valdez; Frantz Gunderson Instructions Additional Instructions / Restrictions: Please take the following medications as noted below. Note the following changes: ??? For high blood pressure, take Toprol 50 mg daily and valsartan 80 mg daily. ??? For diabetes, take metformin 1000 mg twice daily. Please have a repeat BMP drawn in 3 to 5 days to monitor your kidney function. Follow-up with your PCP in the next 1 to 2 weeks. Discharge Orders/Prescriptions Prescriptions: New metoprolol succinate [Toprol XL] 50 mg tablet extended release 24 hr 50 mg PO DAILY Qty: 30 2RF valsartan 80 mg tablet 80 mg PO DAILY Qty: 30 2RF metformin [Fortamet] 1,000 mg tablet extended release 24hr 1,000 mg PO BID 30 Days Qty: 60 2RF Continued levothyroxine [Levoxyl] 88 mcg tablet 88 mcg PO DAILY gemfibrozil 600 mg tablet 600 mg PO BID lamotrigine 150 mg tablet 150 mg PO BID fluoxetine [Prozac] 20 mg capsule 60 mg PO DAILY oxybutynin chloride 5 mg tablet 5 mg PO BID folic acid 1 mg tablet 1 mg PO QDAY Qty: 90 0RF mecobalamin (vitamin B12) 1,000 mcg tablet,chewable 1,000 mcg PO QDAY Qty: 90 0RF risperidone 1 mg tablet 1.5 mg PO QHS ondansetron HCl 4 mg tablet 4 mg PO TID PRN (Reason: nausea) fluticasone furoate-vilanterol 200-25 mcg/dose blister with device 1 ea INHALATION Q24H magnesium oxide 400 mg magnesium capsule 400 mg PO QDAY Qty: 30 2RF Discontinued metformin 1,000 mg tablet 1,000 mg PO BID valsartan-hydrochloro thiazide [Diovan HCT] 320-12.5 mg tablet 1 tab PO DAILY metoprolol succinate [Toprol XL] 200 mg tablet extended release 24 hr 200 mg PO DAILY Ozempic 0.25 mg or 0.5 mg (2 mg/3 mL) pen injector 0.25 mg subcut QWEEK potassium chloride 20 mEq tablet,ER particles/crystals 20 meq PO DAILY Other Ambulatory Orders: Basic Metabolic Profile (BMP) (Routine) Timeframe: 3 Days Facility: [facility] - Location: Laboratory Ordered By: Dr. Jacques Muñoz Referrals / Follow Up: Memo Valdez MD [Med Staff - Consulting, Nephrology] - See Referral Note Referral Note: Call the office on 09/03/2025 for a follow-up appointment within 1 to 2 weeks, tell them that you were hospitalized and saw Dr. Valdez in the hospital Red Perez MD [Primary Care Provider, Family Practice] - See Referral Note Referral Note: In 2 weeks Disposition Disposition (needs filled in before D/C Order can be placed): Home, Self Care 09/03/25 1302 Jacques Muñoz DO CC: Dr. Memo Valdez MD; Dr. Frantz Gunderson DO; Dr. Red Perez MD Signed Normal [facility] Electrocardiogram reportOrde red By: Caleb Mendiola on 09-03-2025 EKG study [facility] Other Phone: EKG study [facility] Other Phone: Glomerular filtration rate ( GFR) estimation/1.73 sq m using serum, plasma, or whole bOrdered By: Frantz Gunderson on 09-03-2025 GFR/1.73 sq M.predicted among non-blacks MDRD (S/P/Bld) [Vol rate/Area] 64 mL/min/{1.73_m2} >60 [facility] Comment on above: mL/min/1.73m2 CKD-EP I Creatinine Equation (2020) Glucose measurement at [facility] deOrdered By: Jacques Muñoz on 09-03-2025 Glucose [Mass/Vol] 140 mg/dL High 74-106 [facility] Comment on above: MANAGEMENT OF PATIEN T CARE PER NURSING PROTOCOL Potassium measurement (mass/ volume)Ordered By: Frantz Gunderson on 09-03-2025 Potassium (Unsp spec) [Mass/Vol] 3.3 mmol/L 3.3-5.1 [facility] Serum creatinine measurement (mass/volume)Ordered By: Frantz Gunderson on 09-03-2025 Creatinine [Mass/Vol] 1.04 mg/dL 0.70-1.20 [facility] Serum glucose measurement (m ass/volume)Ordered By: Frantz Gunderson on 09-03-2025 Glucose [Mass/Vol] 116 mg/dL High 70-99 [facility] Serum or plasma calcium sandy urement (mass/volume)Ordered By: Frantz Gunderson on 09-03-2025 Calcium [Mass/Vol] 8.7 mg/dL 7.6-11.0 [facility] Serum or plasma urea nitroge n measurement (mass/volume)Ordered By: Frantz Gunderson on 09-03-2025 Urea nitrogen [Mass/Vol] 8 mg/dL 4-19 [facility] Sodium levelOrdered By: Frantz Gunderson on 09-03-2025 Sodium [Moles/Vol] 137 mmol/L 133-145 [facility] ANCAon 09-02-2025 Cytoplasmic Ab Normal Neg:<1:20 [facility] Comment on above: Result Comment: PUTT ING ALL ORDERS (R1,R2,R3,R4,IO1) ON SAME ORDER Performed By: #### L 503.0106, L500.4050, L501.1400, L400.0001, L503.6030, L3000.0800, L100.9950, L3890.6006, L501.5101, L100.0100, L504.2610, L501.5200, L506.0200, L3410.9992, L101.9900, L3100.1350, L3200.1200, L503.6550, L3200.0500, L501.6710 #### [facility] Laboratory [facility] [place], [address] Perinuclear Ab. Normal Neg:<1:20 [facility] Comment on above: Result Comment: PUTT ING ALL ORDERS (R1,R2,R3,R4,IO1) ON SAME ORDER Performed By: #### L 503.0106, L500.4050, L501.1400, L400.0001, L503.6030, L3000.0800, L100.9950, L3890.6006, L501.5101, L100.0100, L504.2610, L501.5200, L506.0200, L3410.9992, L101.9900, L3100.1350, L3200.1200, L503.6550, L3200.0500, L501.6710 #### [facility] Laboratory [address] [place], [address] Basic Metabolic Profile (BMP )on 09-02-2025 BUN/CRE 16.9 RATIO Normal 09-03 [facility] Comment on above: Performed By: #### L 503.0106, L500.4050, L501.1400, L400.0001, L503.6030, L3000.0800, L100.9950, L3890.6006, L501.5101, L100.0100, L504.2610, L501.5200, L506.0200, L3410.9992, L101.9900, L3100.1350, L3200.1200, L503.6550, L3200.0500, L501.6710 #### [facility] [address] [place], [place], [id number] ([phone]) Calcium [Mass/Vol] 8.7 mg/dL Normal 7.6-11.0 [facility] Comment on above: Performed By: #### L 503.0106, L500.4050, L501.1400, L400.0001, L503.6030, L3000.0800, L100.9950, L3890.6006, L501.5101, L100.0100, L504.2610, L501.5200, L506.0200, L3410.9992, L101.9900, L3100.1350, L3200.1200, L503.6550, L3200.0500, L501.6710 #### [facility] Laboratory [address] [place], [address] Chloride [Moles/Vol] 104 mmol/L Normal 98-108 [facility] Comment on above: Performed By: #### L 503.0106, L500.4050, L501.1400, L400.0001, L503.6030, L3000.0800, L100.9950, L3890.6006, L501.5101, L100.0100, L504.2610, L501.5200, L506.0200, L3410.9992, L101.9900, L3100.1350, L3200.1200, L503.6550, L3200.0500, L501.6710 #### [facility] Laboratory [address] [place], [place], [id number] CO2 [Moles/Vol] 18.9 mmol/L Low 21.0-32.0 [facility] Comment on above: Performed By: #### L 503.0106, L500.4050, L501.1400, L400.0001, L503.6030, L3000.0800, L100.9950, L3890.6006, L501.5101, L100.0100, L504.2610, L501.5200, L506.0200, L3410.9992, L101.9900, L3100.1350, L3200.1200, L503.6550, L3200.0500, L501.6710 #### [facility] Laboratory [address] [place], [place], [id number] Creatinine [Mass/Vol] 1.34 mg/dL High 0.70-1.20 [facility] Comment on above: Performed By: #### L 503.0106, L500.4050, L501.1400, L400.0001, L503.6030, L3000.0800, L100.9950, L3890.6006, L501.5101, L100.0100, L504.2610, L501.5200, L506.0200, L3410.9992, L101.9900, L3100.1350, L3200.1200, L503.6550, L3200.0500, L501.6710 #### [facility] Laboratory [address] [facility] [place], [place], [id number] ECRCL 56.09 ml/min Normal 50-250 [facility] Comment on above: Performed By: #### L 503.0106, L500.4050, L501.1400, L400.0001, L503.6030, L3000.0800, L100.9950, L3890.6006, L501.5101, L100.0100, L504.2610, L501.5200, L506.0200, L3410.9992, L101.9900, L3100.1350, L3200.1200, L503.6550, L3200.0500, L501.6710 #### [facility] Laboratory [address] [facility] [place], [place], [id number] GAP 13 Normal 5-15 [facility] Comment on above: Performed By: #### L 503.0106, L500.4050, L501.1400, L400.0001, L503.6030, L3000.0800, L100.9950, L3890.6006, L501.5101, L100.0100, L504.2610, L501.5200, L506.0200, L3410.9992, L101.9900, L3100.1350, L3200.1200, L503.6550, L3200.0500, L501.6710 #### [facility] Laboratory [address] [facility] [place], [place], [id number] GFR/1.73 sq M.predicted among non-blacks MDRD (S/P/Bld) [Vol rate/Area] 47 mL/min/{1.73_m2} Low >60 [facility] Comment on above: Result Comment: mL/m in/1.73m2 CKD-EPI Creatinine Equation (2020) Performed By: #### L 503.0106, L500.4050, L501.1400, L400.0001, L503.6030, L3000.0800, L100.9950, L3890.6006, L501.5101, L100.0100, L504.2610, L501.5200, L506.0200, L3410.9992, L101.9900, L3100.1350, L3200.1200, L503.6550, L3200.0500, L501.6710 #### [facility] Laboratory [address] [place], [address] Glucose [Mass/Vol] 106 mg/dL High 70-99 [facility] Comment on above: Performed By: #### L 503.0106, L500.4050, L501.1400, L400.0001, L503.6030, L3000.0800, L100.9950, L3890.6006, L501.5101, L100.0100, L504.2610, L501.5200, L506.0200, L3410.9992, L101.9900, L3100.1350, L3200.1200, L503.6550, L3200.0500, L501.6710 #### [facility] Laboratory [address] [place], [place], [id number] ([address] Potassium [Moles/Vol] 3.8 mmol/L Normal 3.3-5.1 [facility] Comment on above: Performed By: #### L 503.0106, L500.4050, L501.1400, L400.0001, L503.6030, L3000.0800, L100.9950, L3890.6006, L501.5101, L100.0100, L504.2610, L501.5200, L506.0200, L3410.9992, L101.9900, L3100.1350, L3200.1200, L503.6550, L3200.0500, L501.6710 #### [facility] Laboratory [address] [place], [address] Sodium [Moles/Vol] 135 mmol/L Normal 133-145 [facility] Comment on above: Performed By: #### L 503.0106, L500.4050, L501.1400, L400.0001, L503.6030, L3000.0800, L100.9950, L3890.6006, L501.5101, L100.0100, L504.2610, L501.5200, L506.0200, L3410.9992, L101.9900, L3100.1350, L3200.1200, L503.6550, L3200.0500, L501.6710 #### [facility] Laboratory [address] [place], [place], [id number] Urea nitrogen [Mass/Vol] 23 mg/dL High 4-19 [facility] Comment on above: Performed By: #### L 503.0106, L500.4050, L501.1400, L400.0001, L503.6030, L3000.0800, L100.9950, L3890.6006, L501.5101, L100.0100, L504.2610, L501.5200, L506.0200, L3410.9992, L101.9900, L3100.1350, L3200.1200, L503.6550, L3200.0500, L501.6710 #### [facility] Laboratory [address] [facility] [place], [place], [address] Bedside Glucoseon 09-02-2025 FINGERSTICK GLU 152 mg/dL High 74-106 [facility] Comment on above: Result Comment: DARÍO GRIMES OF PATIENT CARE PER NURSING PROTOCOL Performed By: #### L 503.0106, L500.4050, L501.1400, L400.0001, L503.6030, L3000.0800, L100.9950, L3890.6006, L501.5101, L100.0100, L504.2610, L501.5200, L506.0200, L3410.9992, L101.9900, L3100.1350, L3200.1200, L503.6550, L3200.0500, L501.6710 #### [facility] Laboratory [address], [id number] ([address]) FINGERSTICK GLU 145 mg/dL High 74-106 [facility] Comment on above: Result Comment: DARÍO YARELISENT OF PATIENT CARE PER NURSING PROTOCOL Performed By: #### L 503.0106, L500.4050, L501.1400, L400.0001, L503.6030, L3000.0800, L100.9950, L3890.6006, L501.5101, L100.0100, L504.2610, L501.5200, L506.0200, L3410.9992, L101.9900, L3100.1350, L3200.1200, L503.6550, L3200.0500, L501.6710 #### [facility] Laboratory [address] [place], [place], [id number] (296) FINGERSTICK GLU 123 mg/dL High 74-106 [facility] Comment on above: Result Comment: DARÍO GRIMES OF PATIENT CARE PER NURSING PROTOCOL Performed By: #### L 503.0106, L500.4050, L501.1400, L400.0001, L503.6030, L3000.0800, L100.9950, L3890.6006, L501.5101, L100.0100, L504.2610, L501.5200, L506.0200, L3410.9992, L101.9900, L3100.1350, L3200.1200, L503.6550, L3200.0500, L501.6710 #### [facility] Laboratory [address] [place], [place], [id number] (501) FINGERSTICK GLU 123 mg/dL High 74-106 [facility] Comment on above: Result Comment: DARÍO CORNELIO OF PATIENT CARE PER NURSING PROTOCOL Performed By: #### L 503.0106, L500.4050, L501.1400, L400.0001, L503.6030, L3000.0800, L100.9950, L3890.6006, L501.5101, L100.0100, L504.2610, L501.5200, L506.0200, L3410.9992, L101.9900, L3100.1350, L3200.1200, L503.6550, L3200.0500, L501.6710 #### [facility] Laboratory [address] [place], [address] Discharge Instructionon 08-15 Discharge Instruction [facility] Medical Records Department [address] [place] [address] Instructions for Home/Discharge Instructions 09/02/25 1217 MR#: [id number] Acct: [id number] Name: HEIDI ANDREWS Rep #: [id number] : 1970 55 From: Frantz Gunderson DO PCP: Dr. Red Perez MD Status:ADM IN Discharge Instructions DC O2, CPAP, BIPAP needs Home O2 Discharge instructions: No Dressing / Incision Discharge Activity: Return to Normal Activity Weight Bearing Status: Full weight bearing Follow Up Care Test Results: Test results from this visit will be discussed in further detail at your follow-up appointment, if applicable. Discharge Plan Admission Admit Date/Time: 08/31/25 12:54 Primary Reason for Your Visit: Acute kidney injury, hyponatremia, starvation ketoacidosis Attending Provider: Frantz Gunderson Primary Care Provider: Red Perez Consulting Providers: Memo Valdez Instructions Additional Instructions / Restrictions: You are being discharged on no medications for diabetes, please monitor your blood sugars, if they are consistently above 180 please call your PCP for advice Discharge Orders/Prescriptions Prescriptions: Continued levothyroxine [Levoxyl] 88 mcg tablet 88 mcg PO DAILY gemfibrozil 600 mg tablet 600 mg PO BID lamotrigine 150 mg tablet 150 mg PO BID fluoxetine [Prozac] 20 mg capsule 60 mg PO DAILY oxybutynin chloride 5 mg tablet 5 mg PO BID folic acid 1 mg tablet 1 mg PO QDAY Qty: 90 0RF mecobalamin (vitamin B12) 1,000 mcg tablet,chewable 1,000 mcg PO QDAY Qty: 90 0RF risperidone 1 mg tablet 1.5 mg PO QHS ondansetron HCl 4 mg tablet 4 mg PO TID PRN (Reason: nausea) fluticasone furoate-vilanterol 200-25 mcg/dose blister with device 1 ea INHALATION Q24H magnesium oxide 400 mg magnesium capsule 400 mg PO QDAY Qty: 30 2RF Discontinued metformin 1,000 mg tablet 1,000 mg PO BID valsartan-hydrochloro thiazide [Diovan HCT] 320-12.5 mg tablet 1 tab PO DAILY metoprolol succinate [Toprol XL] 200 mg tablet extended release 24 hr 200 mg PO DAILY Ozempic 0.25 mg or 0.5 mg (2 mg/3 mL) pen injector 0.25 mg subcut QWEEK potassium chloride 20 mEq tablet,ER particles/crystals 20 meq PO DAILY Referrals / Follow Up: Memo Valdez MD [Med Staff - Consulting, Nephrology] - See Referral Note Referral Note: Call the office on 09/03/2025 for a follow-up appointment within 1 to 2 weeks, tell them that you were hospitalized and saw Dr. Valdez in the hospital Red Perez MD [Primary Care Provider, Family Practice] - See Referral Note Referral Note: In 2 weeks Disposition Disposition (needs filled in before D/C Order can be placed): Home, Self Care 09/02/25 1224 Frantz Jalyn DO CC: Dr. Memo Valdez MD; Dr. Red Perez MD Signed Normal [facility] [place] Lambda Light Chainson 09-02-2025 FR KAPPA LT CHN [facility] Comment on above: Result Comment: PUTT ING ALL ORDERS (R1,R2,R3,R4,IO1) ON SAME ORDER Performed By: #### L 503.6005 #### [facility] Laboratory [address] [place], [address] FR LAMBDA LT CH Normal [facility] Comment on above: Result Comment: PUTT ING ALL ORDERS (R1,R2,R3,R4,IO1) ON SAME ORDER Performed By: #### L 503.6005 #### [facility] Laboratory [address] [facility] [place], [address] KAPPA/LAMBDA % Normal [facility] Comment on above: Result Comment: PUTT ING ALL ORDERS (R1,R2,R3,R4,IO1) ON SAME ORDER Performed By: #### L 503.6005 #### [facility] Laboratory [address] [place], [address] Protein+Creatinine Ratio,Uri neon 09-02-2025 PROT:CRE RATIO 128 mg/g CRE Normal 0-200 [facility] Comment on above: Performed By: #### L 503.0106, L500.4050, L501.1400, L400.0001, L503.6030, L3000.0800, L100.9950, L3890.6006, L501.5101, L100.0100, L504.2610, L501.5200, L506.0200, L3410.9992, L101.9900, L3100.1350, L3200.1200, L503.6550, L3200.0500, L501.6710 #### [facility] Laboratory [address] [place], [address] Protein (U) [Mass/Vol] 7.1 mg/dL Normal 0.0-12.0 [facility] Comment on above: Performed By: #### L 503.0106, L500.4050, L501.1400, L400.0001, L503.6030, L3000.0800, L100.9950, L3890.6006, L501.5101, L100.0100, L504.2610, L501.5200, L506.0200, L3410.9992, L101.9900, L3100.1350, L3200.1200, L503.6550, L3200.0500, L501.6710 #### [facility] Laboratory [address] [place], [address] UR CREAT 55.60 mg/dL Normal 28.00-217.00 [facility] Comment on above: Performed By: #### L 503.0106, L500.4050, L501.1400, L400.0001, L503.6030, L3000.0800, L100.9950, L3890.6006, L501.5101, L100.0100, L504.2610, L501.5200, L506.0200, L3410.9992, L101.9900, L3100.1350, L3200.1200, L503.6550, L3200.0500, L501.6710 #### [facility] [place], [address] Random urine creatinine sandy urement (mass/volume)Ordered By: Memo Valdez on 09-02-2025 Creatinine Unsp time (U) [Mass/Vol] 55.60 mg/dL 28.00-217.00 [facility] Serum DNA double strand anti body assay (units/volume)Ordered By: Memo Valdez on 09-02-2025 DNA double strand Ab Qn (S) [IU]/mL 0-9 [facility] Comment on above: Negative <5 Equivoca l 5 - 9 Positive >9Performed at: [facility] [address] [id number] Director: Preston Ashley PhD, Phone: [phone] Serum classic neutrophil cyt oplasmic antibody assay (units/volume)Ordered By: Memo Valdez on 09-02-2025 Neutrophil cytoplasmic Ab.classic Qn (S) <1:20 titer Neg:<1:20 [facility] Serum glomerular basement me mbrane antibody assay (units/volume)Ordered By: Memo Valdez on 09-02-2025 Glomerular basement membrane Ab Qn (S) < 0.2 units 0.0-0.9 [facility] Comment on above: Performed at: [facility] [id number] Director: Preston Ashley PhD, Phone: [phone] at: [employer] [id number] Director: Lauren Hendricks MD, Phone: [phone] Serum immunoglobulin kappa l ight chains/immunoglobulin lambda light chains mass ratioOrdered By: Memo Valdez on 09-02-2025 Immunoglobulin light chains.kappa/Immunoglobulin light chains.lambda (S) [Mass ratio] 1.35 0.26-1.65 [facility] Serum or plasma immunoglobul in kappa light chains measurement (mass/volume)Ordered By: Memo Valdez on 09-02-2025 Immunoglobulin light chains.kappa [Mass/Vol] 20.9 mg/L High 3.3-19.4 [facility] Serum perinuclear neutrophil cytoplasmic antibody titer by immunofluorescenceOrdered By: Memo Valdez on 09-02-2025 Neutrophil cytoplasmic Ab.perinuclear IF (S) [Titer] <1:20 titer Neg:<1:20 [facility] Comment on above: The presence of posi tive fluorescence exhibiting P-ANCA orC-ANCA patterns alone is not specific for the diagnosis ofWegener's Granulomatosis (WG) or microscopic polyangiitis.Decisions about treatment should not be based solely onANCA IFA results. The [employer] ANCA Group Consensusrecommends follow up testing of positive sera with both AZ-3 and MPO-ANCA enzyme immunoassays. As many as 5% serumsamples are positive only by EIA. Ref. AM J Clin Sjfyws0102;111:507-513. Urine protein measurement (m ass/volume)Ordered By: Memo Valdez on 09-02-2025 Protein (U) [Mass/Vol] 7.1 mg/dL 0.0-12.0 [facility] Urine protein/creatinine mas s ratioOrdered By: Memo Valdez on 09-02-2025 Protein/Creatinine (U) [Mass ratio] 128 mg/g CRE 0-200 [facility] Basic Metabolic Profile (BMP )on 09-01-2025 BUN/CRE 17.9 RATIO Normal 10-20 [facility] Comment on above: Performed By: #### L 500.2500 #### [facility] Laboratory [address] [place], [place], [id number] Calcium [Mass/Vol] 8.6 mg/dL Normal 7.6-11.0 [facility] Comment on above: Performed By: #### L 500.2500 #### [facility] Laboratory [address] [place], [address] Chloride [Moles/Vol] 97 mmol/L Low 98-108 [facility] Comment on above: Performed By: #### L 500.2500 #### [facility] Laboratory [address] [place], [address] CO2 [Moles/Vol] 17.2 mmol/L Low 21.0-32.0 [facility] Comment on above: Performed By: #### L 500.2500 #### [facility] Laboratory [address] [place], [address] Creatinine [Mass/Vol] 2.42 mg/dL High 0.70-1.20 [facility] Comment on above: Performed By: #### L 500.2500 #### [facility] Laboratory [address] [place], [address] ECRCL 31.06 ml/min Low 50-250 [facility] Comment on above: Performed By: #### L 500.2500 #### [facility] Laboratory [address] [place], [address] GAP 17 High 5-15 [facility] Comment on above: Performed By: #### L 500.2500 #### [facility] Laboratory [address] [place], [address] GFR/1.73 sq M.predicted among non-blacks MDRD (S/P/Bld) [Vol rate/Area] 23 mL/min/{1.73_m2} Low >60 [facility] Comment on above: Result Comment: mL/m in/1.73m2 CKD-EPI Creatinine Equation (2020) Performed By: #### L 500.2500 #### [facility] Laboratory [address] [place], [address] Glucose [Mass/Vol] 145 mg/dL High 70-99 [facility] Comment on above: Performed By: #### L 500.2500 #### [facility] Laboratory [address] [place], [address] Potassium [Moles/Vol] 4.1 mmol/L Normal 3.3-5.1 [facility] Comment on above: Performed By: #### L 500.2500 #### [facility] Laboratory [address] [place], [address] Sodium [Moles/Vol] 131 mmol/L Low 133-145 [facility] Comment on above: Performed By: #### L 500.2500 #### [facility] Laboratory [address] [place], [address] Urea nitrogen [Mass/Vol] 43 mg/dL High 4-19 [facility] Comment on above: Performed By: #### L 500.2500 #### [facility] Laboratory [address] [place], [address] Bedside Glucoseon 09-01-2025 FINGERSTICK GLU 156 mg/dL High 74-106 [facility] Comment on above: Result Comment: DARÍO GEMENT OF PATIENT CARE PER NURSING PROTOCOL Performed By: #### L 503.0106, L500.4050, L501.1400, L400.0001, L503.6030, L3000.0800, L100.9950, L3890.6006, L501.5101, L100.0100, L504.2610, L501.5200, L506.0200, L3410.9992, L101.9900, L3100.1350, L3200.1200, L503.6550, L3200.0500, L501.6710 #### [facility] Laboratory [address] [place], [address] FINGERSTICK GLU 146 mg/dL High 74-106 [facility] Comment on above: Result Comment: DARÍO GEMENT OF PATIENT CARE PER NURSING PROTOCOL Performed By: #### L 503.6005 #### [facility] Laboratory [address] [place], [address] FINGERSTICK GLU 170 mg/dL High 74-106 [facility] Comment on above: Result Comment: DARÍO GEMENT OF PATIENT CARE PER NURSING PROTOCOL Performed By: #### L 503.0106, L500.4050, L501.1400, L400.0001, L503.6030, L3000.0800, L100.9950, L3890.6006, L501.5101, L100.0100, L504.2610, L501.5200, L506.0200, L3410.9992, L101.9900, L3100.1350, L3200.1200, L503.6550, L3200.0500, L501.6710 #### [facility] Laboratory [address] [place], [address] FINGERSTICK GLU 131 mg/dL High [address] [place] [address] Comment on above: Result Comment: DARÍO GEMENT OF PATIENT CARE PER NURSING PROTOCOL Performed By: #### L 503.0106, L500.4050, L501.1400, L400.0001, L503.6030, L3000.0800, L100.9950, L3890.6006, L501.5101, L100.0100, L504.2610, L501.5200, L506.0200, L3410.9992, L101.9900, L3100.1350, L3200.1200, L503.6550, L3200.0500, L501.6710 #### [facility] Laboratory [address] [facility] [place], [place], [address] Consultation - Nephrologyon 09-01-2025 Consultation - Nephrology [facility] Medical Records Department [address] [place] [address] Consultation - Nephrology 09/01/25 1652 MR#: [id number] Acct: [id number] Name: HEIDI ANDREWS Rep #: [id number] : 1970 55 From: Memo Valdez MD PCP: Dr. Red Perez MD Status:ADM IN Location: [place] [address] Assessment Plan Assessment/Plan (1) JESI (acute kidney injury): PLAN: Cr was normal early this year. last month around 1.4 or so. this admit came in with 3.1 better at 2.4 today. renal US is ok. UA shows some protein. will send urine PCR. BP was low, home BP meds on hold. continue fluids. several constitutional symptoms including weight loss. as per family she was sick before GLP1 agonist initiation as well. will send serologies. protein gap is a little high, will send kappa/lamnda assay. maintain fluids for today. HPI Consult Data Date of Consult: 09/01/25 HPI Narrative Reason for Consultation: JESI HPI Narrative: HEIDI ANDREWS, is a 55 F who presents with syncope, hypotension, JESI. several complaints over last 3 months or so. poor appetite weight loss, compounded by initiation of GLP1 agonist. apparently lost about 60 lbs or so. no urinary complaints. cr was normal before now increased. currently on IV fluids. no hematuria. [facility] Medical History (Updated 08/31/25 @ 13:40 by Sweta Simms) BiPAP (biphasic positive airway pressure) dependence Asthma Irregular heart beat Sleep apnea Wears glasses Thyroid disease Diabetes Anemia Former smoker Diabetes Anxiety Psoriasis Hypothyroid Vitamin D deficiency Hypertriglyceridemia Bipolar disorder, unspecified HTN (hypertension) Home Medications ???Medication ???Instructions ???Recorded ???Last Taken ???Type gemfibrozil 600 mg tablet 600 mg PO BID high blood pressu 08/31/25 08:00 History lamotrigine 150 mg tablet 150 mg PO BID high blood pressure 11/10/22 08/31/25 08:00 History levothyroxine 88 mcg tablet 88 mcg PO DAILY hypo thyroid 11/1008/31/25 06:00 History (Levoxyl) metformin 1,000 mg tablet 1,000 mg PO BID diabetes 11/10/22 08/31/25 08:00 History metoprolol succinate 200 mg 200 mg PO DAILY heart rate/htn 08/31/25 08:00 History tablet,extended release 24 hr (Toprol XL) valsartan 320 1 tab PO DAILY blood pressure 10/1608/31/25 08:00 History mg-hydrochlorothiazid e 12.5 mg tablet (Diovan HCT) oxybutynin chloride 5 mg tablet 5 mg PO BID bladder 04/21/25 Unkno wn History fluoxetine 20 mg capsule (Prozac) 60 mg PO DAILY bipolar 03/08/25 1 08:00 History folic acid 1 mg tablet 1 mg PO QDAY supplement #90 tabs 0 05/07/25 08/31/25 08:00 Rx mecobalamin (vitamin B12) 1,000 1,000 mcg PO QDAY supplement #90 0 05/07/25 08/31/25 08:00 Rx mcg chewable tablet tabs magnesium oxide 400 mg PO QDAY supplement #30 caps 06/01/25 08/31/25 08:00 Rx risperidone 1 mg tablet 1.5 mg PO QHS rls 06/04/25 22:48 History semaglutide 0.25 mg or 0.5 mg (2 0.25 mg subcut QWEEK 08/27/25 Unkn own History mg/3 mL) subcutaneous pen injector ([employer]) Held on 08/31/25. Instructions: skipped this week 08/31/25 fluticasone furoate 200 1 ea inhalation Q24H asthma 08/30/25 08:00 History mcg-vilanterol 25 mcg/dose inhalation powder ondansetron HCl 4 mg tablet 4 mg PO TID PRN nausea 08/31/25 Un known History potassium chloride 20 mEq 20 meq PO DAILY supplement 5 08/30/25 08:00 History tablet,extended release(part/cryst) Allergy/AdvReac Type Severity Reaction Status Date / Time No Known Allergies Allergy Verified 08/31/25 10:07 Family History Father Hypertension Diabetes Sister Anxiety MCTD (mixed connective tissue disease) Mother Psoriatic arthritis Surgical History Hx of section Hx of bilateral breast reduction surgery Social History household members: spouse current occupational status: employed 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 [employer] Smoking Status: Former smoker alcohol intake: never substance use type: does not use ROS ROS Narrative negative except above Physical Exam Narrative Alert awake oriented x 3 no obvious distress no pallor no icterus no JVD s1s2 no murmurs lungs clear abdomen soft no organomegaly Medical Records Data Medical Nutrition Assessment Dietitian: Malnutrition Criteria Met Start: 08/31/25 14:35 Freq: Status: Active Protocol: Document 08/31/25 14:36 SB (Rec: 08/31/25 14:36 SB [id number]) Nutrition Malnutrition Evidence of Yes Malnutrition Exists Malnutrition (severe Acute Illness/Injury ): Evidenced By Suboptimal Energy Intake (Severe),Weight Loss (Severe) (more content not included)... Normal [facility] 12 Lead EKGon 08-31-2025 12 Lead EKG [facility] Cardiovascular Services [address] [place] [address] 12 Lead EKG 08/31/25 1102 MR#: [id number] Acct: [id number] Name: HEIDI ANDREWS Rep #: [id number] : 1970 55 From: Caleb Mendiola MD Attending Dr: Dr. Frantz Gunderson DO Status: A DM IN Ordering Dr: Berlin Wilson DO Date: 08/31/25 [place] [facility] [place]: F C Admitted: 08/31/25 Test Reason : Blood Pressure : */* mmHG Vent. Rate : 72 BPM Atrial Rate : 72 BPM P-R Int : 168 ms QRS Dur : 90 ms QT Int : 418 ms P-R-T Axes : 39 21 52 degrees QTcB Int : 457 ms Normal sinus rhythm Nonspecific ST abnormality Abnormal ECG Confirmed by CALEB MENDIOLA MD ([id number]), fan mail editor GUY CAMPOVERDE ([id number]) on 09/03/2025 6:58:58 AM Referred By: Confirmed By: CALEB MENDIOLA MD 09/03/25 0659 Date Caleb Mendiola MD CC: Dr. Berlin Wilson DO; Dr. Frantz Gunderson DO; Dr. Red Perez MD Signed [facility] Absolute lymphocyte countOrd ered By: Berlin Wilson on 08-31-2025 Lymphocytes Auto (Unsp spec) [#/Vol] 0.79 10*3/uL Low 0.83-4.51 [facility] Absolute neutrophil countOrd ered By: Berlin Wilson on 08-31-2025 Neutrophils (Bld) [#/Vol] 3.6 10*3/uL 2.0-7.7 [facility] Activated partial thrombopla stin time (aPTT) in platelet poor plasma by coagulation aOrdered By: Berlin Wilson on 08-31-2025 aPTT Coag (PPP) [Time] 27.1 s 24.1-36.2 [facility] Amorphous sediment detection in urine sediment by light microscopyOrdered By: Berlin Wilson on 08-31-2025 Amorphous sediment LM Ql (Urine sed) 1+ [facility] Ankle min 3 Viewson 08-31-20 25 Ankle min 3 Views [facility] Imaging Services [address] [place] [address] Ankle min 3 Views MR#: [id number] Acct: [id number] Name: HEIDI ANDREWS Rep #: [id number] : 1970 F 55 From: Russ davila MD PCP: Dr. Red Perez MD Status: REG ER Study: Ankle min 3 Views Date of Exam: 08/31/25 Exam# [id number] Ordering Dr: Berlin Wilson DO PROCEDURE: ANKLE MIN 3 VIEWS 08/31/2025 REASON FOR EXAM: INJURY TECHNIQUE: Procedure Code: RADANK Modality: DX Procedure: ANKLE MIN 3 VIEWS Laterality: Right ankle. COMPARISON: None FINDINGS: Bones: Nondisplaced oblique fracture of the lateral malleolus. Avulsion fracture of the posterior malleolus. Joints: Mild asymmetry of the ankle mortise. Soft tissues: Soft tissue swelling Other: RAD/Ankle min 3 Views IMPRESSION: Nondisplaced oblique fracture of the lateral malleolus as well as avulsion fracture of the posterior malleolus. Mild asymmetry of the ankle mortise as well as soft tissue swelling. Reading Location: [place] [address] CC: Dr. Berlin Wilson DO; Dr. Red Perez MD [employer] Control: Signed Normal [facility] Automated lymphocyte count a s percentage of total leukocytesOrdered By: Berlin Wilson on 08-31-2025 Lymphocytes/100 WBC Auto (Unsp spec) 16.0 % Low 19-41 [facility] Basic Metabolic Profile (BMP )on 08-31-2025 BUN/CRE 15.0 RATIO Normal 10-20 [facility] Comment on above: Performed By: #### L 503.0106, L500.4050, L501.1400, L400.0001, L503.6030, L3000.0800, L100.9950, L3890.6006, L501.5101, L100.0100, L504.2610, L501.5200, L506.0200, L3410.9992, L101.9900, L3100.1350, L3200.1200, L503.6550, L3200.0500, L501.6710 #### [facility] Laboratory [address] [place], [place], [id number] Calcium [Mass/Vol] 10.5 mg/dL Normal 7.6-11.0 [facility] Comment on above: Performed By: #### L 503.0106, L500.4050, L501.1400, L400.0001, L503.6030, L3000.0800, L100.9950, L3890.6006, L501.5101, L100.0100, L504.2610, L501.5200, L506.0200, L3410.9992, L101.9900, L3100.1350, L3200.1200, L503.6550, L3200.0500, L501.6710 #### [facility] Laboratory [address] [place], [address] Chloride [Moles/Vol] 86 mmol/L Low 98-108 [facility] Comment on above: Performed By: #### L 503.0106, L500.4050, L501.1400, L400.0001, L503.6030, L3000.0800, L100.9950, L3890.6006, L501.5101, L100.0100, L504.2610, L501.5200, L506.0200, L3410.9992, L101.9900, L3100.1350, L3200.1200, L503.6550, L3200.0500, L501.6710 #### [facility] Laboratory [address] [place], [address] CO2 [Moles/Vol] 17.7 mmol/L Low 21.0-32.0 [facility] Comment on above: Performed By: #### L 503.0106, L500.4050, L501.1400, L400.0001, L503.6030, L3000.0800, L100.9950, L3890.6006, L501.5101, L100.0100, L504.2610, L501.5200, L506.0200, L3410.9992, L101.9900, L3100.1350, L3200.1200, L503.6550, L3200.0500, L501.6710 #### [facility] Laboratory [address] [place], [address] Creatinine [Mass/Vol] 3.10 mg/dL High 0.70-1.20 [facility] Comment on above: Performed By: #### L 503.0106, L500.4050, L501.1400, L400.0001, L503.6030, L3000.0800, L100.9950, L3890.6006, L501.5101, L100.0100, L504.2610, L501.5200, L506.0200, L3410.9992, L101.9900, L3100.1350, L3200.1200, L503.6550, L3200.0500, L501.6710 #### [facility] Laboratory [address] [place], [address] ECRCL 25.29 ml/min Low 50-250 [facility] Comment on above: Performed By: #### L 503.0106, L500.4050, L501.1400, L400.0001, L503.6030, L3000.0800, L100.9950, L3890.6006, L501.5101, L100.0100, L504.2610, L501.5200, L506.0200, L3410.9992, L101.9900, L3100.1350, L3200.1200, L503.6550, L3200.0500, L501.6710 #### [facility] Laboratory [address] [place], [place], [id number] GAP 25 High 5-15 [facility] Comment on above: Performed By: #### L 503.0106, L500.4050, L501.1400, L400.0001, L503.6030, L3000.0800, L100.9950, L3890.6006, L501.5101, L100.0100, L504.2610, L501.5200, L506.0200, L3410.9992, L101.9900, L3100.1350, L3200.1200, L503.6550, L3200.0500, L501.6710 #### [facility] Laboratory [address] [place], [place], [id number] GFR/1.73 sq M.predicted among non-blacks MDRD (S/P/Bld) [Vol rate/Area] 17 mL/min/{1.73_m2} Low >60 [facility] Comment on above: Result Comment: mL/m in/1.73m2 CKD-EPI Creatinine Equation (2020) Performed By: #### L 503.0106, L500.4050, L501.1400, L400.0001, L503.6030, L3000.0800, L100.9950, L3890.6006, L501.5101, L100.0100, L504.2610, L501.5200, L506.0200, L3410.9992, L101.9900, L3100.1350, L3200.1200, L503.6550, L3200.0500, L501.6710 #### [facility] Laboratory [address] [facility] [place], [place], [id number] (127) Glucose [Mass/Vol] 199 mg/dL High 70-99 [facility] Comment on above: Performed By: #### L 503.0106, L500.4050, L501.1400, L400.0001, L503.6030, L3000.0800, L100.9950, L3890.6006, L501.5101, L100.0100, L504.2610, L501.5200, L506.0200, L3410.9992, L101.9900, L3100.1350, L3200.1200, L503.6550, L3200.0500, L501.6710 #### [facility] Laboratory [address] [place], [place], [id number] (629) Potassium [Moles/Vol] 3.8 mmol/L Normal 3.3-5.1 [facility] Comment on above: Performed By: #### L 503.0106, L500.4050, L501.1400, L400.0001, L503.6030, L3000.0800, L100.9950, L3890.6006, L501.5101, L100.0100, L504.2610, L501.5200, L506.0200, L3410.9992, L101.9900, L3100.1350, L3200.1200, L503.6550, L3200.0500, L501.6710 #### [facility] Laboratory [address] [facility] [place], [place], [id number] (920) Sodium [Moles/Vol] 129 mmol/L Low 133-145 [facility] Comment on above: Performed By: #### L 503.0106, L500.4050, L501.1400, L400.0001, L503.6030, L3000.0800, L100.9950, L3890.6006, L501.5101, L100.0100, L504.2610, L501.5200, L506.0200, L3410.9992, L101.9900, L3100.1350, L3200.1200, L503.6550, L3200.0500, L501.6710 #### [facility] Laboratory [address] [place], [address] Urea nitrogen [Mass/Vol] 47 mg/dL High 4-19 [facility] Comment on above: Performed By: #### L 503.0106, L500.4050, L501.1400, L400.0001, L503.6030, L3000.0800, L100.9950, L3890.6006, L501.5101, L100.0100, L504.2610, L501.5200, L506.0200, L3410.9992, L101.9900, L3100.1350, L3200.1200, L503.6550, L3200.0500, L501.6710 #### [facility] Laboratory [address] [place], [address] Basophil percentageOrdered B y: Berlin Wilson on 08-31-2025 Basophils/100 WBC (Bld) 0.6 % 0-1 [facility] Bedside Glucoseon 08-31-2025 FINGERSTICK GLU 143 mg/dL High 74-106 [facility] Comment on above: Result Comment: DARÍO GRIMES OF PATIENT CARE PER NURSING PROTOCOL Performed By: #### L 503.0106, L500.4050, L501.1400, L400.0001, L503.6030, L3000.0800, L100.9950, L3890.6006, L501.5101, L100.0100, L504.2610, L501.5200, L506.0200, L3410.9992, L101.9900, L3100.1350, L3200.1200, L503.6550, L3200.0500, L501.6710 #### [facility] Laboratory [address] [place], [place], [id number] Bilirubin Test strip Ql (U)O rdered By: Berlin Wilson on 08-31-2025 Bilirubin Ql (U) 3 mg/dL High Negative [facility] Comment on above: COLOR OF URINE MAY A FFECT DIPSTICK RESULTS. Bilirubin directOrdered By: Berlin Wilson on 08-31-2025 Bilirubin.direct [Mass/Vol] 0.33 mg/dL High 0.00-0.3 0 [facility] Bilirubin, totalOrdered By: Berlin Wilson on 08-31-2025 Bilirubin [Mass/Vol] 0.60 mg/dL 0.00-1.30 [facility] Brain/Head without Contrasto n 08-31-2025 Brain/Head without Contrast [facility] Imaging Services [address] [place], [place] [id number] Brain/Head without Contrast MR#: [id number] Acct: [id number] Name: HEIDI ANDREWS Rep #: [id number] : 1970 F 55 From: Russ davila MD PCP: Dr. Red Perez MD Status: REG ER Study: Brain/Head without Contrast Date of Exam: 08/15 06/08 Exam# [id number] Ordering Dr: Berlin Wilson DO PROCEDURE: BRAIN/HEAD WITHOUT CONTRAST 08/31/2025 REASON FOR EXAM: INJURY Head injury due to syncopal episode. TECHNIQUE: Procedure Code: CTBR Modality: CT Procedure: BRAIN/HEAD WITHOUT CONTRAST Coronal and Sagittal reconstruction series were provided. One or more dose reduction techniques were used (e.g., Automated exposure control, adjustment of the mA and/or kV according to patient size, use of iterative reconstruction technique. RADIATION DOSE SUMMARY: CTDlvol: 44.99 mGy DLP: 762.36 mGycm COMPARISON: None FINDINGS: Brain: Adjacent to the CSF Spaces: Prominent CSF spaces overlying the frontal lobes bilaterally. Prominent CSF spaces along the cerebral falx superiorly. This may be developmental in nature. Sinuses/Mastoids: Clear at visualized levels Bones: Hyperostosis frontalis interna. CT/Brain/Head without Contrast IMPRESSION: Cerebral atrophy more pronounced in the anterior frontal lobes bilaterally as well as in the Reading Location: [place] [address] CC: Dr. Berlin Wilson, DO; Dr. Red Perez MD [employer] Control: Signed Normal [facility] CBC W/Diff, Automatedon 08-15 Absolute Lymph 0.79 X10 3/uL Low 0.83-4.51 [facility] Comment on above: Performed By: #### L 503.0106, L500.4050, L501.1400, L400.0001, L503.6030, L3000.0800, L100.9950, L3890.6006, L501.5101, L100.0100, L504.2610, L501.5200, L506.0200, L3410.9992, L101.9900, L3100.1350, L3200.1200, L503.6550, L3200.0500, L501.6710 #### [facility] Laboratory [address] [place], [address] Absolute Neut 3.6 X10 3/uL Normal 2.0-7.7 [facility] Comment on above: Performed By: #### L 503.0106, L500.4050, L501.1400, L400.0001, L503.6030, L3000.0800, L100.9950, L3890.6006, L501.5101, L100.0100, L504.2610, L501.5200, L506.0200, L3410.9992, L101.9900, L3100.1350, L3200.1200, L503.6550, L3200.0500, L501.6710 #### [facility] Laboratory [address] [place], [address] Basophils/100 WBC (Bld) 0.6 % Normal 0-1 [facility] Comment on above: Performed By: #### L 503.0106, L500.4050, L501.1400, L400.0001, L503.6030, L3000.0800, L100.9950, L3890.6006, L501.5101, L100.0100, L504.2610, L501.5200, L506.0200, L3410.9992, L101.9900, L3100.1350, L3200.1200, L503.6550, L3200.0500, L501.6710 #### [facility] Laboratory [address] [place], [place], [address] Eosinophils/100 WBC (Bld) 3.0 % Normal 0-5 [facility] Comment on above: Performed By: #### L 503.0106, L500.4050, L501.1400, L400.0001, L503.6030, L3000.0800, L100.9950, L3890.6006, L501.5101, L100.0100, L504.2610, L501.5200, L506.0200, L3410.9992, L101.9900, L3100.1350, L3200.1200, L503.6550, L3200.0500, L501.6710 #### [facility] Laboratory [address] [place], [address] Erythrocyte distribution width (RBC) [Ratio] 13.8 % Normal 11.6-14.6 [facility] Comment on above: Performed By: #### L 503.0106, L500.4050, L501.1400, L400.0001, L503.6030, L3000.0800, L100.9950, L3890.6006, L501.5101, L100.0100, L504.2610, L501.5200, L506.0200, L3410.9992, L101.9900, L3100.1350, L3200.1200, L503.6550, L3200.0500, L501.6710 #### [facility] Laboratory [address] [place], [address] Hematocrit (Bld) [Volume fraction] 33.2 % Low 37-47 [facility] Comment on above: Performed By: #### L 503.0106, L500.4050, L501.1400, L400.0001, L503.6030, L3000.0800, L100.9950, L3890.6006, L501.5101, L100.0100, L504.2610, L501.5200, L506.0200, L3410.9992, L101.9900, L3100.1350, L3200.1200, L503.6550, L3200.0500, L501.6710 #### [facility] Laboratory [address] [place] [place], [address] Hemoglobin (Bld) [Mass/Vol] 10.9 g/dL Low 12.0-15. 0 [facility] Comment on above: Performed By: #### L 503.0106, L500.4050, L501.1400, L400.0001, L503.6030, L3000.0800, L100.9950, L3890.6006, L501.5101, L100.0100, L504.2610, L501.5200, L506.0200, L3410.9992, L101.9900, L3100.1350, L3200.1200, L503.6550, L3200.0500, L501.6710 #### [facility] Laboratory [address] [place], [address] IG% 1.200 High 0.0-0.9 [facility] Comment on above: Result Comment: IG% - Immature Granulocytes (promyelocytes, myelocytes and metamyelocytes) > 1% indicates that a LEFT SHIFT is Present. Performed By: #### L 503.0106, L500.4050, L501.1400, L400.0001, L503.6030, L3000.0800, L100.9950, L3890.6006, L501.5101, L100.0100, L504.2610, L501.5200, L506.0200, L3410.9992, L101.9900, L3100.1350, L3200.1200, L503.6550, L3200.0500, L501.6710 #### [facility] Laboratory [address] [place], [address] Lymphocytes/100 WBC (Bld) 16.0 % Low 19-41 [facility] Comment on above: Performed By: #### L 503.0106, L500.4050, L501.1400, L400.0001, L503.6030, L3000.0800, L100.9950, L3890.6006, L501.5101, L100.0100, L504.2610, L501.5200, L506.0200, L3410.9992, L101.9900, L3100.1350, L3200.1200, L503.6550, L3200.0500, L501.6710 #### [facility] Laboratory [address] [place], [address] MCH (RBC) [Entitic mass] 26.5 pg Low 27.0-32.0 [facility] Comment on above: Performed By: #### L 503.0106, L500.4050, L501.1400, L400.0001, L503.6030, L3000.0800, L100.9950, L3890.6006, L501.5101, L100.0100, L504.2610, L501.5200, L506.0200, L3410.9992, L101.9900, L3100.1350, L3200.1200, L503.6550, L3200.0500, L501.6710 #### [facility] Laboratory [address] [place], [address] MCHC (RBC) [Mass/Vol] 32.8 g/dL Normal 32-36 [facility] Comment on above: Performed By: #### L 503.0106, L500.4050, L501.1400, L400.0001, L503.6030, L3000.0800, L100.9950, L3890.6006, L501.5101, L100.0100, L504.2610, L501.5200, L506.0200, L3410.9992, L101.9900, L3100.1350, L3200.1200, L503.6550, L3200.0500, L501.6710 #### [facility] Laboratory [address] [place], [place], [id number] (482) MCV (RBC) [Entitic vol] 80.8 fL Low 81-99 [facility] Comment on above: Performed By: #### L 503.0106, L500.4050, L501.1400, L400.0001, L503.6030, L3000.0800, L100.9950, L3890.6006, L501.5101, L100.0100, L504.2610, L501.5200, L506.0200, L3410.9992, L101.9900, L3100.1350, L3200.1200, L503.6550, L3200.0500, L501.6710 #### [facility] Laboratory [address] [place], [address] (611 Monocytes/100 WBC (Bld) 6.7 % Normal 0-10 [facility] Comment on above: Performed By: #### L 503.0106, L500.4050, L501.1400, L400.0001, L503.6030, L3000.0800, L100.9950, L3890.6006, L501.5101, L100.0100, L504.2610, L501.5200, L506.0200, L3410.9992, L101.9900, L3100.1350, L3200.1200, L503.6550, L3200.0500, L501.6710 #### [facility] Laboratory [address] [place], [address] (499 Neutrophils/100 WBC (Bld) 72.5 % High 47-70 [facility] Comment on above: Performed By: #### L 503.0106, L500.4050, L501.1400, L400.0001, L503.6030, L3000.0800, L100.9950, L3890.6006, L501.5101, L100.0100, L504.2610, L501.5200, L506.0200, L3410.9992, L101.9900, L3100.1350, L3200.1200, L503.6550, L3200.0500, L501.6710 #### [facility] Laboratory [address] [facility] [place], [place], [address] Nucleated RBC (Bld) [#/Vol] 0 10*3/uL Normal 0-5 [facility] Comment on above: Performed By: #### L 503.0106, L500.4050, L501.1400, L400.0001, L503.6030, L3000.0800, L100.9950, L3890.6006, L501.5101, L100.0100, L504.2610, L501.5200, L506.0200, L3410.9992, L101.9900, L3100.1350, L3200.1200, L503.6550, L3200.0500, L501.6710 #### [facility] Laboratory [address] [facility] [place], [place], [address] Platelet mean volume (Bld) [Entitic vol] 10.1 fL Normal 6.2-12.0 [facility] Comment on above: Performed By: #### L 503.0106, L500.4050, L501.1400, L400.0001, L503.6030, L3000.0800, L100.9950, L3890.6006, L501.5101, L100.0100, L504.2610, L501.5200, L506.0200, L3410.9992, L101.9900, L3100.1350, L3200.1200, L503.6550, L3200.0500, L501.6710 #### [facility] Laboratory [address] [place], [place], [id number] (199) Platelets (Bld) [#/Vol] 240 10*3/uL Normal 150-450 [facility] Comment on above: Performed By: #### L 503.0106, L500.4050, L501.1400, L400.0001, L503.6030, L3000.0800, L100.9950, L3890.6006, L501.5101, L100.0100, L504.2610, L501.5200, L506.0200, L3410.9992, L101.9900, L3100.1350, L3200.1200, L503.6550, L3200.0500, L501.6710 #### [facility] Laboratory [address] [place], [place], [id number] (276) RBC (Bld) [#/Vol] 4.11 10*6/uL Low 4.2-5.4 [facility] Comment on above: Performed By: #### L 503.0106, L500.4050, L501.1400, L400.0001, L503.6030, L3000.0800, L100.9950, L3890.6006, L501.5101, L100.0100, L504.2610, L501.5200, L506.0200, L3410.9992, L101.9900, L3100.1350, L3200.1200, L503.6550, L3200.0500, L501.6710 #### [facility] Laboratory [address] [place], [address] (980) RDW SD 40.0 fl Normal 35.1-43.9 [facility] Comment on above: Performed By: #### L 503.0106, L500.4050, L501.1400, L400.0001, L503.6030, L3000.0800, L100.9950, L3890.6006, L501.5101, L100.0100, L504.2610, L501.5200, L506.0200, L3410.9992, L101.9900, L3100.1350, L3200.1200, L503.6550, L3200.0500, L501.6710 #### [facility] Laboratory [address] [place], [address] WBC (Bld) [#/Vol] 4.9 10*3/uL Normal 4.4-11.0 [facility] Comment on above: Performed By: #### L 503.0106, L500.4050, L501.1400, L400.0001, L503.6030, L3000.0800, L100.9950, L3890.6006, L501.5101, L100.0100, L504.2610, L501.5200, L506.0200, L3410.9992, L101.9900, L3100.1350, L3200.1200, L503.6550, L3200.0500, L501.6710 #### [facility] Laboratory [address] [place], [address] Chest 1 Viewon 08-31-2025 Chest 1 View [facility] Imaging Services [address] [place] [address] Chest 1 View MR#: [id number] Acct: [id number] Name: HEIDI ANDREWS Rep #: [id number] : 1970 F 55 From: Russ davila MD PCP: Dr. Red Perez MD Status: REG ER Study: Chest 1 View Date of Exam: 08/31/25 Exam# [id number] Ordering Dr: Berlin Wilson DO PROCEDURE: CHEST 1 VIEW N/A REASON FOR EXAM: SYNCOPE TECHNIQUE: Frontal view of the chest. COMPARISON: Prior study dated June 15, 2025. FINDINGS: Hardware: EKG electrodes are seen. Heart: The heart size is normal. Lungs: The lungs are clear. Stable elevation of the right hemidiaphragm. Bones: Degenerative changes are identified within the thoracic spine. RAD/Chest 1 View IMPRESSION: Stable examination. No acute abnormality is seen. Reading Location: [place] [address] CC: Dr. Berlin Wilson DO; Dr. Red Perez MD [employer] Control: Signed Normal [facility] Emergency Department Summary on 08-31-2025 Emergency Department Summary [facility] Medical Records Department [address] [place] [address] Emergency Department Summary 08/31/25 MR#: [id number] Acct: [id number] Name: HEIDI ANDREWS Rep #: [id number] : 1970 55 From: Berlin Wilson DO PCP: Dr. Red Perez MD Status:ADM IN Location: [place] [address] HPI History of Present Illness Chief Complaint: Hypotension Informant: patient, family and EMS Narrative Narrative: 55-year-old female presented to the emergency room with a chief complaint of syncope. Patient states that 2 months ago she started Ozempic. She states that she has had significant nausea and has been unable to keep food down. She states that she has not been able to go to work over the past 2 weeks. About 2 weeks ago her PCP discontinued her clonidine due to lower than normal blood pressure. She has continued her metoprolol and her Diovan. She states that she did not take her Ozempic last week. She notes that she is currently being evaluated with hematology for anemia and has received iron infusions. She states that recent blood work has resulted in her being referred to nephrology and she is scheduled next week for a liver ultrasound due to abnormal LFTs. She is not on any blood thinners. This morning she was sitting in her living room and went to get up and go towards the kitchen. She felt that she was going to pass out and was using the wall to help her when she eventually had a syncopal episode. She notes an injury to the right ankle with swelling and a "bump" on the occiput of her head. She denies any neck pain. She denies any significant headache. She denies chest pain shortness of breath. She notes that she has had black diarrhea stools but is not uncommon for her since beginning iron supplementation. [facility] Medical History (Updated 08/31/25 @ 13:40 by Sweta Simms) BiPAP (biphasic positive airway pressure) dependence Asthma Irregular heart beat Sleep apnea Wears glasses Thyroid disease Diabetes Anemia Former smoker Diabetes Anxiety Psoriasis Hypothyroid Vitamin D deficiency Hypertriglyceridemia Bipolar disorder, unspecified HTN (hypertension) Home Medications ???Medication ???Instructions ???Recorded ???Last Taken ???Type gemfibrozil 600 mg tablet 600 mg PO BID high blood pressu 08/31/25 08:00 History lamotrigine 150 mg tablet 150 mg PO BID high blood pressure 11/10/22 08/31/25 08:00 History levothyroxine 88 mcg tablet 88 mcg PO DAILY hypo thyroid 11/1008/31/25 06:00 History (Levoxyl) metformin 1,000 mg tablet 1,000 mg PO BID diabetes 11/10/22 08/31/25 08:00 History metoprolol succinate 200 mg 200 mg PO DAILY heart rate/htn 08/31/25 08:00 History tablet,extended release 24 hr (Toprol XL) valsartan 320 1 tab PO DAILY blood pressure 10/1608/31/25 08:00 History mg-hydrochlorothiazid e 12.5 mg tablet (Diovan HCT) oxybutynin chloride 5 mg tablet 5 mg PO BID bladder 03/05/25 Unkno wn History fluoxetine 20 mg capsule (Prozac) 60 mg PO DAILY bipolar 03/08/25 1 08:00 History folic acid 1 mg tablet 1 mg PO QDAY supplement #90 tabs 0 05/07/25 08/31/25 08:00 Rx mecobalamin (vitamin B12) 1,000 1,000 mcg PO QDAY supplement #90 0 05/07/25 08/31/25 08:00 Rx mcg chewable tablet tabs magnesium oxide 400 mg PO QDAY supplement #30 caps 06/01/25 08/31/25 08:00 Rx risperidone 1 mg tablet 1.5 mg PO QHS rls 06/04/25 10/16/ 5 22:48 History semaglutide 0.25 mg or 0.5 mg (2 0.25 mg subcut QWEEK 08/27/25 Unkn own History mg/3 mL) subcutaneous pen injector (Ozempic) Held on 08/31/25. Instructions: skipped this week 08/31/25 fluticasone furoate 200 1 ea inhalation Q24H asthma 08/30/25 08:00 History mcg-vilanterol 25 mcg/dose inhalation powder ondansetron HCl 4 mg tablet 4 mg PO TID PRN nausea 08/31/25 Un known History potassium chloride 20 mEq 20 meq PO DAILY supplement 5 08/30/25 08:00 History tablet,extended release(part/cryst) Allergy/AdvReac Type Severity Reaction Status Date / Time No Known Allergies Allergy Verified 08/31/25 10:07 Family History Father Hypertension Diabetes Sister Anxiety MCTD (mixed connective tissue disease) Mother Psoriatic arthritis Surgical History Hx of section Hx of bilateral breast reduction surgery Social History household members: spouse current occupational status: employed current occupation: [employer] Smoking Status: Former smoker alcohol intake: never substance use type: does not use ROS ROS ED Constitutional Constitutional ED: Reports chills; Denies fever(s) or weight loss Eyes Eyes (more content not included)... Normal [facility] Eosinophil percentageOrdered By: Berlin Wilson on 08-31-2025 Eosinophils/100 WBC (Bld) 3.0 % 0-5 [facility] Erythrocyte distribution wid th ratioOrdered By: Berlin Wilson on 08-31-2025 Erythrocyte distribution width (RBC) [Ratio] 13.8 % 11.6-14.6 [facility] Erythrocyte distribution wid th standard deviationOrdered By: Berlin Wilson on 08-31-2025 Erythrocyte distribution width (RBC) [Ratio] 40.0 fl 35.1-43.9 [facility] H AND P Exam - Hospitaliston 08-31-2025 H&P Exam - Hospitalist [facility] Medical Records Department [address] [facility] [place] [address] H P Exam - Hospitalist 08/31/25 1849 MR#: [id number] Acct: [id number] Name: HEIDI ANDREWS Rep #: [id number] : 1970 55 From: Frantz Gunderson DO PCP: Dr. Red Perez MD Status:ADM IN [place] [facility] [place] HPI - General General Date of Admission: 08/31/25 Date of Service: 08/31/25 Chief Complaint: Syncope, right ankle injury HPI Narrative HEIDI ANDREWS, is a 55 F who presents to the emergency room at [facility] after sustaining a syncopal episode at home after standing up. According to the emergency room physician, patient's blood pressure by squad was in the 60s systolic, she suffered an injury to her right ankle from the fall. Workup in the emergency room included labs which showed an elevated lactic acid level of 4.4, chemistry profile was abnormal for a glucose of 199, creatinine of 3.10, a BUN of 47, a sodium of 129, chloride of 86, and a bicarb of 17.7. Patient's anion gap was elevated at 25. Patient CBC was abnormal for hemoglobin of 10.9. Urinalysis showed no red blood cells, there was 0-5 white cells and rare bacteria. X-rays of the patient's right ankle revealed a lateral malleolus fracture, a splint was applied by the emergency room physician. Patient was given IV fluids in the emergency room with some improvement of her blood pressure- systolic readings were in the 90s. Patient will be admitted for acute kidney injury, hyponatremia, she will be given IV fluids, ultrasound kidneys will be obtained and she will be seen by nephrology. Labs will be closely monitored. Patient's blood pressure medication was stopped. Patient's anion gap is probably from starvation ketoacidosis, patient's elevated lactic acid level could be a result of her use of metformin with a backdrop of starvation. [facility] Medical History (Updated 08/31/25 @ 13:40 by Sweta Simms) BiPAP (biphasic positive airway pressure) dependence Asthma Irregular heart beat Sleep apnea Wears glasses Thyroid disease Diabetes Anemia Former smoker Diabetes Anxiety Psoriasis Hypothyroid Vitamin D deficiency Hypertriglyceridemia Bipolar disorder, unspecified HTN (hypertension) Home Medications ???Medication ???Instructions ???Recorded ???Last Taken ???Type gemfibrozil 600 mg tablet 600 mg PO BID high blood pressu 08/31/25 08:00 History lamotrigine 150 mg tablet 150 mg PO BID high blood pressure 11/10/22 08/31/25 08:00 History levothyroxine 88 mcg tablet 88 mcg PO DAILY hypo thyroid 11/1008/31/25 06:00 History (Levoxyl) metformin 1,000 mg tablet 1,000 mg PO BID diabetes 11/10/22 08/31/25 08:00 History metoprolol succinate 200 mg 200 mg PO DAILY heart rate/htn 08/31/25 08:00 History tablet,extended release 24 hr (Toprol XL) valsartan 320 1 tab PO DAILY blood pressure 10/1608/31/25 08:00 History mg-hydrochlorothiazid e 12.5 mg tablet (Diovan HCT) oxybutynin chloride 5 mg tablet 5 mg PO BID bladder 03/05/25 Unkno wn History fluoxetine 20 mg capsule (Prozac) 60 mg PO DAILY bipolar 03/08/25 1 08:00 History folic acid 1 mg tablet 1 mg PO QDAY supplement #90 tabs 0 05/07/25 08/31/25 08:00 Rx mecobalamin (vitamin B12) 1,000 1,000 mcg PO QDAY supplement #90 0 05/07/25 08/31/25 08:00 Rx mcg chewable tablet tabs magnesium oxide 400 mg PO QDAY supplement #30 caps 06/01/25 08/31/25 08:00 Rx risperidone 1 mg tablet 1.5 mg PO QHS rls 06/04/25 5 22:48 History semaglutide 0.25 mg or 0.5 mg (2 0.25 mg subcut QWEEK 08/27/25 Unkn own History mg/3 mL) subcutaneous pen injector (Bespoke Postic) Held on 08/31/25. Instructions: skipped this week 08/31/25 fluticasone furoate 200 1 ea inhalation Q24H asthma 08/30/25 08:00 History mcg-vilanterol 25 mcg/dose inhalation powder ondansetron HCl 4 mg tablet 4 mg PO TID PRN nausea 08/31/25 Un known History potassium chloride 20 mEq 20 meq PO DAILY supplement 5 08/30/25 08:00 History tablet,extended release(part/cryst) Allergy/AdvReac Type Severity Reaction Status Date / Time No Known Allergies Allergy Verified 08/31/25 10:07 Family History Father Hypertension Diabetes Sister Anxiety MCTD (mixed connective tissue disease) Mother Psoriatic arthritis Surgical History Hx of section Hx of bilateral breast reduction surgery Social History household members: spouse current occupational status: employed current occupation: [employer] Smoking Status: Former smoker alcohol intake: never substance use type: does not use ROS Constitutiona (more content not included)... Normal [facility] Hematocrit Auto (Bld) [Volum e fraction]Ordered By: Berlin Wilson on 08-31-2025 Hematocrit (Bld) [Volume fraction] 33.2 % Low 37-47 [facility] Hemoglobin measurementOrdere d By: Berlin Wilson on 08-31-2025 Hemoglobin (Bld) [Mass/Vol] 10.9 g/dL Low 12.0-15. 0 [facility] Immature granulocytes/100 WB C Auto (Bld)Ordered By: Berlin Wilson on 08-31-2025 Immature granulocytes/100 WBC (Bld) 1.200 % High 0.0-0.9 [facility] Comment on above: IG% - Immature Granu locytes (promyelocytes, myelocytes and metamyelocytes) > 1% indicates that a LEFT SHIFT is Present. International normalized rat io (INR) calculationOrdered By: Berlin Wilson on 08-31-2025 INR Coag (Bld) [Relative time] 1.3 {INR} [facility] Ketones Test strip Ql (U)Ord ered By: Berlin Wilson on 08-31-2025 Ketones Ql (U) 5 mg/dl High Negative [facility] Kidney and Bladderon 025 Kidney and Bladder [facility] Imaging Services [address] [place] [address] Kidney and Bladder MR#: [id number] Acct: [id number] Name: HEIDI ANDREWS Rep #: [id number] : 1970 F 55 From: Farhat Faye MD PCP: Dr. Red Perez MD Status: ADM IN Study: Kidney and Bladder Date of Exam: 08/31/25 Exam# [id number] Ordering Dr: Frantz Gunderson DO PROCEDURE: KIDNEY AND BLADDER 08/31/2025 REASON FOR EXAM: ACUTE KIDNEY INJURY TECHNIQUE: Procedure Code: USKI Modality: US Procedure: KIDNEY AND BLADDER COMPARISON: None available. FINDINGS: Kidneys: Normal renal sizes, parenchymal thicknesses, and echotextures. [place]: None. Cysts or Masses: No cysts or large solid renal masses. Bladder: Unremarkable appearance of the bladder with volume of 15.8 mL RIGHT Kidney Size: 12.1 x 4.7 x 4.1 cm Cortical Thickness (if discernible): 10 mm (>6mm is normal) LEFT Kidney Size: 10.9 x 4.3 x 4.2 cm Cortical Thickness (if discernible): 10 mm (>6mm is normal) US/Kidney and Bladder IMPRESSION: NORMAL RENAL ULTRASOUND. Reading Location: [facility] CC: Dr. Frantz Gunderson DO; Dr. Red Perez MD [employer] Control: Signed Normal [facility] L501.4021on 08-31-2025 Trop T High Sen 14 ng/L Normal <=14 [facility] Comment on above: Performed By: #### L 503.0106, L500.4050, L501.1400, L400.0001, L503.6030, L3000.0800, L100.9950, L3890.6006, L501.5101, L100.0100, L504.2610, L501.5200, L506.0200, L3410.9992, L101.9900, L3100.1350, L3200.1200, L503.6550, L3200.0500, L501.6710 #### [facility] Laboratory [address] [place], [address] Laboratory - Chemistry and C hemistry - challengeOrdered By: Berlin Wilson on 08-31-2025 AST [Catalytic activity/Vol] 17 U/L <32 [facility] Lactic Acidon 08-31-2025 Lactate [Moles/Vol] 3.0 mmol/L Invalid Interpretation Code 0.0-2.0 [facility] Comment on above: Result Comment: Crit ical Result(s) Called at: 23:17 08-31-25 TO TYSONMEI ALLISON by: CHELSI PÉREZ??Results read back by same. Performed By: #### L 503.0106, L500.4050, L501.1400, L400.0001, L503.6030, L3000.0800, L100.9950, L3890.6006, L501.5101, L100.0100, L504.2610, L501.5200, L506.0200, L3410.9992, L101.9900, L3100.1350, L3200.1200, L503.6550, L3200.0500, L501.6710 #### [facility] Laboratory [address] [facility] [place], [address] Lactate [Moles/Vol] 4.3 mmol/L Invalid Interpretation Code 0.0-2.0 [facility] Comment on above: Order Comment: Y Result Comment: Crit ical Result(s) Called at: 1855 by:??CHEYENNE BURNETT Results read back by same. Performed By: #### L 503.6005 #### [facility] Laboratory [address] [place], [address] Lactate [Moles/Vol] 4.4 mmol/L Invalid Interpretation Code 0.0-2.0 [facility] Comment on above: Order Comment: Y Result Comment: Crit ical Result(s) Called to: Adam GONSALVES (ER) by: Sharmila??Results read back by same. Performed By: #### L 503.0106, L500.4050, L501.1400, L400.0001, L503.6030, L3000.0800, L100.9950, L3890.6006, L501.5101, L100.0100, L504.2610, L501.5200, L506.0200, L3410.9992, L101.9900, L3100.1350, L3200.1200, L503.6550, L3200.0500, L501.6710 #### [facility] Laboratory [address] [place], [place], [id number] Lactic acid measurementOrder ed By: Frantz Gunderson on 08-31-2025 Lactate [Moles/Vol] 3.0 mmol/L Critically high 0.0-2.0 [facility] Comment on above: Critical Result(s) C alled at: 23:17 08-31-25 TO TYSON ALLISON by: CHELSI PÉREZ Results read back by same. Liver Profileon 08-31-2025 Albumin [Mass/Vol] 4.9 g/dL Normal 3.5-5.0 [facility] Comment on above: Performed By: #### L 503.0106, L500.4050, L501.1400, L400.0001, L503.6030, L3000.0800, L100.9950, L3890.6006, L501.5101, L100.0100, L504.2610, L501.5200, L506.0200, L3410.9992, L101.9900, L3100.1350, L3200.1200, L503.6550, L3200.0500, L501.6710 #### [facility] Laboratory [address] [place], [address] ALK PHOS 186 U/L High 35-104 [facility] Comment on above: Performed By: #### L 503.0106, L500.4050, L501.1400, L400.0001, L503.6030, L3000.0800, L100.9950, L3890.6006, L501.5101, L100.0100, L504.2610, L501.5200, L506.0200, L3410.9992, L101.9900, L3100.1350, L3200.1200, L503.6550, L3200.0500, L501.6710 #### [facility] Laboratory [address] [place], [address] ALT [Catalytic activity/Vol] 9 U/L Normal <=34 [facility] Comment on above: Performed By: #### L 503.0106, L500.4050, L501.1400, L400.0001, L503.6030, L3000.0800, L100.9950, L3890.6006, L501.5101, L100.0100, L504.2610, L501.5200, L506.0200, L3410.9992, L101.9900, L3100.1350, L3200.1200, L503.6550, L3200.0500, L501.6710 #### [facility] Laboratory [address] [place], [address] AST [Catalytic activity/Vol] 17 U/L Normal <=31 [facility] Comment on above: Performed By: #### L 503.0106, L500.4050, L501.1400, L400.0001, L503.6030, L3000.0800, L100.9950, L3890.6006, L501.5101, L100.0100, L504.2610, L501.5200, L506.0200, L3410.9992, L101.9900, L3100.1350, L3200.1200, L503.6550, L3200.0500, L501.6710 #### [facility] Laboratory [address] [place], [place], [address] Bilirubin [Mass/Vol] 0.60 mg/dL Normal 0.00-1.30 [facility] Comment on above: Performed By: #### L 503.0106, L500.4050, L501.1400, L400.0001, L503.6030, L3000.0800, L100.9950, L3890.6006, L501.5101, L100.0100, L504.2610, L501.5200, L506.0200, L3410.9992, L101.9900, L3100.1350, L3200.1200, L503.6550, L3200.0500, L501.6710 #### [facility] Laboratory [address] [facility] [place], [place], [id number] (001) Bilirubin.direct [Mass/Vol] 0.33 mg/dL High 0.00-0.3 0 [facility] Comment on above: Performed By: #### L 503.0106, L500.4050, L501.1400, L400.0001, L503.6030, L3000.0800, L100.9950, L3890.6006, L501.5101, L100.0100, L504.2610, L501.5200, L506.0200, L3410.9992, L101.9900, L3100.1350, L3200.1200, L503.6550, L3200.0500, L501.6710 #### [facility] Laboratory [address] [facility] [place], [place], [id number] (112) Globulin (S) [Mass/Vol] 3.7 g/dL Normal 2.2-4.2 [facility] Comment on above: Performed By: #### L 503.0106, L500.4050, L501.1400, L400.0001, L503.6030, L3000.0800, L100.9950, L3890.6006, L501.5101, L100.0100, L504.2610, L501.5200, L506.0200, L3410.9992, L101.9900, L3100.1350, L3200.1200, L503.6550, L3200.0500, L501.6710 #### [facility] Laboratory [address] [place] [place], [address] T PROT 8.6 g/dL High 5.9-8.4 [facility] Comment on above: Performed By: #### L 503.0106, L500.4050, L501.1400, L400.0001, L503.6030, L3000.0800, L100.9950, L3890.6006, L501.5101, L100.0100, L504.2610, L501.5200, L506.0200, L3410.9992, L101.9900, L3100.1350, L3200.1200, L503.6550, L3200.0500, L501.6710 #### [facility] Laboratory [address] [place], [place], [address] MCV (mean corpuscular volume ) determinationOrdered By: Berlin Wilson on 08-31-2025 MCV (RBC) [Entitic vol] 80.8 fL Low 81-99 [facility] Mean corpuscular hemoglobin (MCH) determinationOrdered By: Berlin Wilson on 08-31-2025 MCH (RBC) [Entitic mass] 26.5 pg Low 27.0-32.0 [facility] Mean corpuscular hemoglobin concentration (MCHC) determinationOrdered By: Berlin Wilson on 08-31-2025 MCHC (RBC) [Mass/Vol] 32.8 g/dL 32-36 [facility] Mean platelet volume determi nationOrdered By: Berlin Wilson on 08-31-2025 Platelet mean volume (Bld) [Entitic vol] 10.1 fL 6.2-12.0 [facility] Microscopic analysis of urin e for red blood cells (RBC)Ordered By: Berlin Wilson on 08-31-2025 Microscopic analysis of urine for red blood cells (RBC) 0 SEEN /hpf 0-5 [facility] Monocyte percentageOrdered B y: Berlin Wilson on 08-31-2025 Monocytes/100 WBC (Bld) 6.7 % 0-10 [facility] Mucus LM Ql (Urine sed)Order ed By: Berlin Wilson on 08-31-2025 Mucus Ql (Urine sed) 0 SEEN /hpf [facility] Neutrophil percentageOrdered By: Berlin Wilson on 08-31-2025 Neutrophils/100 WBC (Bld) 72.5 % High 47-70 [facility] Nitrite Test strip Ql (U)Ord ered By: Berlin Wilson on 08-31-2025 Nitrite Ql (U) Negative Negative [facility] No Panel InformationOrdered By: Berlin Wilson on 08-31-2025 17 U/L <32 [facility] Nucleated red blood cell per centageOrdered By: Berlin Wilson on 08-31-2025 Nucleated RBC/100 WBC (Bld) [Ratio] 0 % 0-5 [facility] Partial Thromboplast Timeon 08-31-2025 aPTT Coag (Bld) [Time] 27.1 s Normal 24.1-36.2 [facility] [place] [facility] Comment on above: Performed By: #### L 503.0106, L500.4050, L501.1400, L400.0001, L503.6030, L3000.0800, L100.9950, L3890.6006, L501.5101, L100.0100, L504.2610, L501.5200, L506.0200, L3410.9992, L101.9900, L3100.1350, L3200.1200, L503.6550, L3200.0500, L501.6710 #### [facility] Laboratory [address] [place] [address], [address] Platelet countOrdered By: Romeo Wilson on 08-31-2025 Platelets (Bld) [#/Vol] 240 10*3/uL 150-450 [facility] Protein Test strip Ql (U)Ord ered By: Berlin Wilson on 08-31-2025 Protein Ql (U) 100 mg/dl High Negative [facility] Prothrombin Time w/INRon INR Coag (PPP) [Relative time] 1.3 {INR} Normal [facility] Comment on above: Performed By: #### L 503.0106, L500.4050, L501.1400, L400.0001, L503.6030, L3000.0800, L100.9950, L3890.6006, L501.5101, L100.0100, L504.2610, L501.5200, L506.0200, L3410.9992, L101.9900, L3100.1350, L3200.1200, L503.6550, L3200.0500, L501.6710 #### [facility] Laboratory [address] [place], [place], [id number] PT Coag (PPP) [Time] 16.0 s High 11.7-14.9 [facility] Comment on above: Performed By: #### L 503.0106, L500.4050, L501.1400, L400.0001, L503.6030, L3000.0800, L100.9950, L3890.6006, L501.5101, L100.0100, L504.2610, L501.5200, L506.0200, L3410.9992, L101.9900, L3100.1350, L3200.1200, L503.6550, L3200.0500, L501.6710 #### [facility] Laboratory [address] [facility] [place], [place], [id number] Prothrombin timeOrdered By: Berlin Wilson on 08-31-2025 PT Coag (PPP) [Time] 16.0 s High 11.7-14.9 [facility] RBC Auto (Bld) [#/Vol]Ordere d By: Berlin Wilson on 08-31-2025 RBC (Bld) [#/Vol] 4.11 10*6/uL Low 4.2-5.4 [facility] Serum globulin measurementOr dered By: Berlin Wilson on 08-31-2025 Globulin (S) [Mass/Vol] 3.7 g/dL 2.2-4.2 [facility] Serum or plasma alanine cueto otransferase (ALT) measurementOrdered By: Berlin Wilson on 08-31-2025 ALT [Catalytic activity/Vol] 9 U/L <35 [facility] Serum or plasma albumin sandy urement (mass/volume)Ordered By: Berlin Wilson on 08-31-2025 Albumin [Mass/Vol] 4.9 g/dL 3.5-5.0 [facility] Serum or plasma alkaline rebecca sphatase measurementOrdered By: Berlin Wilson on 08-31-2025 ALP [Catalytic activity/Vol] 186 U/L High 35-104 [facility] Squamous epithelial cells de tection in urine sediment by light microscopyOrdered By: Berlin Wilson on 08-31-2025 Epithelial cells.squamous LM Ql (Urine sed) 10-25 SEEN /hpf 5-10 [facility] Total proteinOrdered By: Brock Wilson on 08-31-2025 Protein [Mass/Vol] 8.6 g/dL High 5.9-8.4 [facility] Troponin T HS 2 HRon 025 Trop T High Sen 12 ng/L Normal <=14 [facility] Comment on above: Performed By: #### L 503.0106, L500.4050, L501.1400, L400.0001, L503.6030, L3000.0800, L100.9950, L3890.6006, L501.5101, L100.0100, L504.2610, L501.5200, L506.0200, L3410.9992, L101.9900, L3100.1350, L3200.1200, L503.6550, L3200.0500, L501.6710 #### [facility] Laboratory [facility] [place], [address] Troponin T.cardiac [Mass/vol ume] in Serum or Plasma by High sensitivity methodOrdered By: Berlin Wilson on 08-31-2025 Troponin T.cardiac High sensitivity method [Mass/Vol] 12 ng/L <14 [facility] Troponin T.cardiac High sensitivity method [Mass/Vol] 14 ng/L <14 [facility] Urinalysis, Completeon 08-31 AMORPHOUS 1+ Normal [facility] Comment on above: Order Comment: Y Performed By: #### L 503.6005 #### [facility] Laboratory [address] [place], [address] BACTERIA RARE Normal None Seen [facility] Comment on above: Order Comment: Y Performed By: #### L 503.6005 #### [facility] Laboratory [address] [place], [address] EPI,SQUAMOUS 10-25 SEEN Normal 5-10 [facility] Comment on above: Order Comment: Y Performed By: #### L 503.6005 #### [facility] Laboratory [address] [place], [address] WBC 0-5 SEEN Normal 0-5 [facility] Comment on above: Order Comment: Y Performed By: #### L 503.6005 #### [facility] Laboratory [address] [place], [address] Mucus Ql (Urine sed) 0 SEEN Normal [facility] Comment on above: Order Comment: Y Performed By: #### L 503.6005 #### [facility] Laboratory [address] [place], [address] RBC 0 SEEN Normal 0-5 [facility] Comment on above: Order Comment: Y Performed By: #### L 503.6005 #### [facility] Laboratory [address] [place], [address] Urine clarityOrdered By: Brock Wilson on 08-31-2025 Clarity (U) Sl. Cloudy Clear [facility] Urine color determinationOrd ered By: Berlin Wilson on 08-31-2025 Color (U) Yellow Yellow [facility] Urine glucose detectionOrder ed By: Berlin Wilson on 08-31-2025 Glucose Ql (U) Normal mg/dl Normal [facility] Urine leukocyte esterase det ection by dipstickOrdered By: Berlin Wilson on 08-31-2025 Leukocyte esterase Test strip Ql (U) 25 /ul High Negative [facility] Urine pHOrdered By: Berlin krishna on 08-31-2025 pH (U) 5.0 [pH] 5.0 - 8.0 [facility] Urine sediment bacteria coun t by microscopy (number/high power field)Ordered By: Berlin Wilson on 08-31-2025 Bacteria LM.HPF (Urine sed) [#/Area] RARE /hpf None Seen [facility] Urine specific gravity measu rementOrdered By: Berlin Wilson on 08-31-2025 Specific gravity (U) [Rel density] 1.025 1.002-1.030 [facility] Urine urobilinogen measureme ntOrdered By: Berlin Wilson on 08-31-2025 Urobilinogen Ql (U) 1 mg/dl High Normal [facility] White blood cell (WBC) count Ordered By: Berlin Wilson on 08-31-2025 WBC (Bld) [#/Vol] 4.9 10*3/uL 4.4-11.0 [facility] White blood cell countOrdere d By: Berlin Wilson on 08-31-2025 White blood cell count 0-5 SEEN /hpf 0-5 [facility] Stool Occult Blood iFOBon STOB Positive Normal [facility] Comment on above: Performed By: #### L 503.0106, L500.4050, L501.1400, L400.0001, L503.6030, L3000.0800, L100.9950, L3890.6006, L501.5101, L100.0100, L504.2610, L501.5200, L506.0200, L3410.9992, L101.9900, L3100.1350, L3200.1200, L503.6550, L3200.0500, L501.6710 #### [facility] Laboratory [address] [place], [place], [id number] Stool gastrointestinal hemog lobin detection by immunologic methodOrdered By: Glen Chapman on 08-30-2025 Lower GI hemoglobin IA Ql (Stl) Positive Abnormal [facility] Erythropoietinon 08-28-2025 ERYTHROPOIETIN 9.5 mIU/mL Normal 2.6-18.5 [facility] Comment on above: Result Comment: My [employer] DxI 800 Immunoassay System Values obtained with different assay methods or kits cannot be used interchangeably. Results cannot be interpreted as absolute evidence of the presence or absence of malignant disease. Performed By: #### L 503.6005 #### [facility] Laboratory [address] [place], [address] Hepatitis B/C Profile VIIIon 08-28-2025 COMMENT Comment Normal . [facility] Comment on above: Result Comment: Not infected with HCV unless early or acute infection is suspected (which may be delayed in an immunocompromised individual), or other evidence exists to indicate HCV infection. Performed By: #### L 503.6005 #### [facility] [address] [place], [address] HEP B CORE,TOT Negative Normal Negative [facility] Comment on above: Performed By: #### L 503.6005 #### [facility] [address] [place], [address] Hep B Micheal AB Non-Reactive Normal . [facility] Comment on above: Result Comment: Non Reactive: Not immune to HBV infection. Anti-HBs undetectable or less than 10 mIU/mL. Reactive: Evidence of HBV immunity. Anti-HBs levels greater than 10 mIU/mL. Performed By: #### L 503.6005 #### [facility] [address] [place], [address] HEP B SURF AG Negative Normal Negative [facility] Comment on above: Performed By: #### L 503.6005 #### [facility] [address] [place], [address] HEP C Antibody Non-Reactive Normal Non Reactive [facility] Comment on above: Performed By: #### L 503.6005 #### [facility] [address] [place], [address] HEPATITIS INTER Comment Normal . [facility] Comment on above: Result Comment: HBV Serology Interpretation Chart --------- Interpretation HBsAg anti-HBs anti-HBc anti-HBc IgM --------- Garner - Analyte present: + Analyte absent: - Test not indicated: TNI --------- Susceptible (never infected and no evidence - - - TNI of vaccination) --------- Immune due to natural resolved infection - + + TNI --------- Immune due to vaccination - + - TNI --------- Acute Infection + - + + --------- Chronic infection + - + - --------- Interpretation unclear* - - + +/- --------- *Multiple possibilities: resolved infection (most common); false- positive anti-HBc (susceptible); "low-level" chronic infection"; resolving acute infection. Performed By: #### L 503.6005 #### [facility] [address] [place], [place], [id number] IgG Subclasseson 08-28-2025 IgG, SUBCLASS 1 334 mg/dL Normal 248-810 [facility] Comment on above: Performed By: #### L 503.0106, L500.4050, L501.1400, L400.0001, L503.6030, L3000.0800, L100.9950, L3890.6006, L501.5101, L100.0100, L504.2610, L501.5200, L506.0200, L3410.9992, L101.9900, L3100.1350, L3200.1200, L503.6550, L3200.0500, L501.6710 #### [facility] [address] [facility] [place], [place], [id number] (947) IgG, SUBCLASS 2 281 mg/dL Normal 130-555 [facility] Comment on above: Performed By: #### L 503.0106, L500.4050, L501.1400, L400.0001, L503.6030, L3000.0800, L100.9950, L3890.6006, L501.5101, L100.0100, L504.2610, L501.5200, L506.0200, L3410.9992, L101.9900, L3100.1350, L3200.1200, L503.6550, L3200.0500, L501.6710 #### [facility] [address] [facility] [place], [place], [id number] (615) IgG, SUBCLASS 3 51 mg/dL Normal 15-102 [facility] Comment on above: Performed By: #### L 503.0106, L500.4050, L501.1400, L400.0001, L503.6030, L3000.0800, L100.9950, L3890.6006, L501.5101, L100.0100, L504.2610, L501.5200, L506.0200, L3410.9992, L101.9900, L3100.1350, L3200.1200, L503.6550, L3200.0500, L501.6710 #### [facility] [address] [facility] [place], [place], [id number] (642) IgG, SUBCLASS 4 3 mg/dL Normal 2-96 [facility] Comment on above: Performed By: #### L 503.0106, L500.4050, L501.1400, L400.0001, L503.6030, L3000.0800, L100.9950, L3890.6006, L501.5101, L100.0100, L504.2610, L501.5200, L506.0200, L3410.9992, L101.9900, L3100.1350, L3200.1200, L503.6550, L3200.0500, L501.6710 #### [facility] [address] [facility] [place], [place], [id number] (491) IGG,QUANT 718 mg/dL Normal 586-1602 [facility] Comment on above: Performed By: #### L 503.0106, L500.4050, L501.1400, L400.0001, L503.6030, L3000.0800, L100.9950, L3890.6006, L501.5101, L100.0100, L504.2610, L501.5200, L506.0200, L3410.9992, L101.9900, L3100.1350, L3200.1200, L503.6550, L3200.0500, L501.6710 #### [facility] [address] [facility] [place], [place], [id number] Immunoglobulins G/A/Mon 08-15 IMMUNOGLOB A QN 72 mg/dL Low 87-352 [facility] Comment on above: Order Comment: N Performed By: #### L 503.0106, L500.4050, L501.1400, L400.0001, L503.6030, L3000.0800, L100.9950, L3890.6006, L501.5101, L100.0100, L504.2610, L501.5200, L506.0200, L3410.9992, L101.9900, L3100.1350, L3200.1200, L503.6550, L3200.0500, L501.6710 #### [facility] [address] [facility] [address] [place], [place], [address] IMMUNOGLOB M QN 49 mg/dL Normal 26-217 [facility] Comment on above: Order Comment: N Performed By: #### L 503.0106, L500.4050, L501.1400, L400.0001, L503.6030, L3000.0800, L100.9950, L3890.6006, L501.5101, L100.0100, L504.2610, L501.5200, L506.0200, L3410.9992, L101.9900, L3100.1350, L3200.1200, L503.6550, L3200.0500, L501.6710 #### [facility] [address] [place], [place], [address] L3410.9992on 08-28-2025 [facility]. COMMENT Normal . [facility] Comment on above: Order Comment: Y Result Comment: Test Ordered: [id number] ANIRUDH, IFA Rfx 9 Frantz Multiplex ANIRUDH [...] detected by ANIRUDH IFA methodology. Performed at: - [facility] [id number] [employer] Operator: Preston Ashley PhD, Phone: [phone] Performed By: #### L 503.6005 #### [facility] [address] [place], [place], [address] L501.5101on 08-28-2025 GGTP 62 IU/L Abnormal 0-60 [facility] Comment on above: Result Comment: Perf ormed at: [facility] [id number] [employer] Operator: Preston Ashley PhD, Phone: [phone] Performed By: #### L 503.6005 #### [facility] [address] [facility] [address] [place], [place], [address] Absolute lymphocyte countOrd ered By: Glen Chapman on 08-27-2025 Lymphocytes Auto (Unsp spec) [#/Vol] 1.29 10*3/uL 0.83-4.51 [facility] Absolute neutrophil countOrd ered By: Glen Chapman on 08-27-2025 Neutrophils (Bld) [#/Vol] 5.3 10*3/uL 2.0-7.7 [facility] Anion gap in Serum or Plasma Ordered By: Glen Statonrito on 08-27-2025 Anion gap [Moles/Vol] 21 mmol/L High 5-15 [facility] Automated lymphocyte count a s percentage of total leukocytesOrdered By: Glen Statonrito on 08-27-2025 Lymphocytes/100 WBC Auto (Unsp spec) 17.4 % Low 19-41 [facility] BUN/creatinine ratioOrdered By: Glen Statonrito on 08-27-2025 Urea nitrogen/Creatinine [Mass ratio] 16.9 mg/mg 09-03 [facility] Comment on above: Previous reported re sult: 16.8 RATIOEdited by: AUTOINS on 08/27/25:1520 AMENDED REPORT 08/27/25 1520 BUN/CRE previously reported as: 16.8 RATIO Basophil percentageOrdered B y: Glen Chapman on 08-27-2025 Basophils/100 WBC (Bld) 0.4 % 0-1 [facility] Bilirubin Test strip Ql (U)O rdered By: Glen Statonrito on 08-27-2025 Bilirubin Ql (U) 1 mg/dL High Negative [facility] Comment on above: COLOR OF URINE MAY A FFECT DIPSTICK RESULTS. Bilirubin, totalOrdered By: lGen Statonrito on 08-27-2025 Bilirubin [Mass/Vol] 0.59 mg/dL 0.00-1.30 [facility] CBC W/Diff, Automatedon 08-15 Absolute Lymph 1.29 X10 3/uL Normal 0.83-4.51 [facility] Comment on above: Performed By: #### L 503.0106, L500.4050, L501.1400, L400.0001, L503.6030, L3000.0800, L100.9950, L3890.6006, L501.5101, L100.0100, L504.2610, L501.5200, L506.0200, L3410.9992, L101.9900, L3100.1350, L3200.1200, L503.6550, L3200.0500, L501.6710 #### [facility] [place], [address] Absolute Neut 5.3 X10 3/uL Normal 2.0-7.7 [facility] Comment on above: Performed By: #### L 503.0106, L500.4050, L501.1400, L400.0001, L503.6030, L3000.0800, L100.9950, L3890.6006, L501.5101, L100.0100, L504.2610, L501.5200, L506.0200, L3410.9992, L101.9900, L3100.1350, L3200.1200, L503.6550, L3200.0500, L501.6710 #### [facility] [address] [facility] [place], [address] Basophils/100 WBC (Bld) 0.4 % Normal 0-1 [facility] Comment on above: Performed By: #### L 503.0106, L500.4050, L501.1400, L400.0001, L503.6030, L3000.0800, L100.9950, L3890.6006, L501.5101, L100.0100, L504.2610, L501.5200, L506.0200, L3410.9992, L101.9900, L3100.1350, L3200.1200, L503.6550, L3200.0500, L501.6710 #### [facility] [address] [facility] [place], [address] Eosinophils/100 WBC (Bld) 2.2 % Normal 0-5 [facility] Comment on above: Performed By: #### L 503.0106, L500.4050, L501.1400, L400.0001, L503.6030, L3000.0800, L100.9950, L3890.6006, L501.5101, L100.0100, L504.2610, L501.5200, L506.0200, L3410.9992, L101.9900, L3100.1350, L3200.1200, L503.6550, L3200.0500, L501.6710 #### [facility] [address] [place], [address] Erythrocyte distribution width (RBC) [Ratio] 13.8 % Normal 11.6-14.6 [facility] Comment on above: Performed By: #### L 503.0106, L500.4050, L501.1400, L400.0001, L503.6030, L3000.0800, L100.9950, L3890.6006, L501.5101, L100.0100, L504.2610, L501.5200, L506.0200, L3410.9992, L101.9900, L3100.1350, L3200.1200, L503.6550, L3200.0500, L501.6710 #### [facility] [address] [place], [address] Hematocrit (Bld) [Volume fraction] 33.2 % Low 37-47 [facility] Comment on above: Performed By: #### L 503.0106, L500.4050, L501.1400, L400.0001, L503.6030, L3000.0800, L100.9950, L3890.6006, L501.5101, L100.0100, L504.2610, L501.5200, L506.0200, L3410.9992, L101.9900, L3100.1350, L3200.1200, L503.6550, L3200.0500, L501.6710 #### [facility] [address] [place], [address] Hemoglobin (Bld) [Mass/Vol] 11.3 g/dL Low 12.0-15. 0 [facility] Comment on above: Performed By: #### L 503.0106, L500.4050, L501.1400, L400.0001, L503.6030, L3000.0800, L100.9950, L3890.6006, L501.5101, L100.0100, L504.2610, L501.5200, L506.0200, L3410.9992, L101.9900, L3100.1350, L3200.1200, L503.6550, L3200.0500, L501.6710 #### [facility] [address] [place], [address] IG% 2.200 High 0.0-0.9 [facility] Comment on above: Result Comment: IG% - Immature Granulocytes (promyelocytes, myelocytes and metamyelocytes) > 1% indicates that a LEFT SHIFT is Present. Performed By: #### L 503.0106, L500.4050, L501.1400, L400.0001, L503.6030, L3000.0800, L100.9950, L3890.6006, L501.5101, L100.0100, L504.2610, L501.5200, L506.0200, L3410.9992, L101.9900, L3100.1350, L3200.1200, L503.6550, L3200.0500, L501.6710 #### [facility] [address] [place], [address] Lymphocytes/100 WBC (Bld) 17.4 % Low 19-41 [facility] Comment on above: Performed By: #### L 503.0106, L500.4050, L501.1400, L400.0001, L503.6030, L3000.0800, L100.9950, L3890.6006, L501.5101, L100.0100, L504.2610, L501.5200, L506.0200, L3410.9992, L101.9900, L3100.1350, L3200.1200, L503.6550, L3200.0500, L501.6710 #### [facility] [address] [facility] [place], [address] MCH (RBC) [Entitic mass] 27.2 pg Normal 27.0-32.0 [facility] Comment on above: Performed By: #### L 503.0106, L500.4050, L501.1400, L400.0001, L503.6030, L3000.0800, L100.9950, L3890.6006, L501.5101, L100.0100, L504.2610, L501.5200, L506.0200, L3410.9992, L101.9900, L3100.1350, L3200.1200, L503.6550, L3200.0500, L501.6710 #### [facility] [address] [facility] [address] [place], [place], [id number] MCHC (RBC) [Mass/Vol] 34.0 g/dL Normal 32-36 [facility] Comment on above: Performed By: #### L 503.0106, L500.4050, L501.1400, L400.0001, L503.6030, L3000.0800, L100.9950, L3890.6006, L501.5101, L100.0100, L504.2610, L501.5200, L506.0200, L3410.9992, L101.9900, L3100.1350, L3200.1200, L503.6550, L3200.0500, L501.6710 #### [facility] [address] [place], [place], [address] MCV (RBC) [Entitic vol] 80.0 fL Low 81-99 [facility] Comment on above: Performed By: #### L 503.0106, L500.4050, L501.1400, L400.0001, L503.6030, L3000.0800, L100.9950, L3890.6006, L501.5101, L100.0100, L504.2610, L501.5200, L506.0200, L3410.9992, L101.9900, L3100.1350, L3200.1200, L503.6550, L3200.0500, L501.6710 #### [facility] [address] [place], [address] Monocytes/100 WBC (Bld) 6.2 % Normal 0-10 [facility] Comment on above: Performed By: #### L 503.0106, L500.4050, L501.1400, L400.0001, L503.6030, L3000.0800, L100.9950, L3890.6006, L501.5101, L100.0100, L504.2610, L501.5200, L506.0200, L3410.9992, L101.9900, L3100.1350, L3200.1200, L503.6550, L3200.0500, L501.6710 #### [facility] [address] [facility] [place], [address] Neutrophils/100 WBC (Bld) 71.6 % High 47-70 [facility] Comment on above: Performed By: #### L 503.0106, L500.4050, L501.1400, L400.0001, L503.6030, L3000.0800, L100.9950, L3890.6006, L501.5101, L100.0100, L504.2610, L501.5200, L506.0200, L3410.9992, L101.9900, L3100.1350, L3200.1200, L503.6550, L3200.0500, L501.6710 #### [facility] [address] [facility], [address] Nucleated RBC (Bld) [#/Vol] 0 10*3/uL Normal 0-5 [facility] Comment on above: Performed By: #### L 503.0106, L500.4050, L501.1400, L400.0001, L503.6030, L3000.0800, L100.9950, L3890.6006, L501.5101, L100.0100, L504.2610, L501.5200, L506.0200, L3410.9992, L101.9900, L3100.1350, L3200.1200, L503.6550, L3200.0500, L501.6710 #### [facility] [address] [place], [address] Platelet mean volume (Bld) [Entitic vol] 9.5 fL Normal 6.2-12.0 [facility] Comment on above: Performed By: #### L 503.0106, L500.4050, L501.1400, L400.0001, L503.6030, L3000.0800, L100.9950, L3890.6006, L501.5101, L100.0100, L504.2610, L501.5200, L506.0200, L3410.9992, L101.9900, L3100.1350, L3200.1200, L503.6550, L3200.0500, L501.6710 #### [facility] [address] [place], [address] Platelets (Bld) [#/Vol] 333 10*3/uL Normal 150-450 [facility] Comment on above: Performed By: #### L 503.0106, L500.4050, L501.1400, L400.0001, L503.6030, L3000.0800, L100.9950, L3890.6006, L501.5101, L100.0100, L504.2610, L501.5200, L506.0200, L3410.9992, L101.9900, L3100.1350, L3200.1200, L503.6550, L3200.0500, L501.6710 #### [facility] [address] [place], [address] RBC (Bld) [#/Vol] 4.15 10*6/uL Low 4.2-5.4 [facility] Comment on above: Performed By: #### L 503.0106, L500.4050, L501.1400, L400.0001, L503.6030, L3000.0800, L100.9950, L3890.6006, L501.5101, L100.0100, L504.2610, L501.5200, L506.0200, L3410.9992, L101.9900, L3100.1350, L3200.1200, L503.6550, L3200.0500, L501.6710 #### [facility] [address] [place], [place], [address] RDW SD 39.8 fl Normal 35.1-43.9 [facility] Comment on above: Performed By: #### L 503.0106, L500.4050, L501.1400, L400.0001, L503.6030, L3000.0800, L100.9950, L3890.6006, L501.5101, L100.0100, L504.2610, L501.5200, L506.0200, L3410.9992, L101.9900, L3100.1350, L3200.1200, L503.6550, L3200.0500, L501.6710 #### [facility] [address] [place], [place], [address] WBC (Bld) [#/Vol] 7.4 10*3/uL Normal 4.4-11.0 [facility] Comment on above: Performed By: #### L 503.0106, L500.4050, L501.1400, L400.0001, L503.6030, L3000.0800, L100.9950, L3890.6006, L501.5101, L100.0100, L504.2610, L501.5200, L506.0200, L3410.9992, L101.9900, L3100.1350, L3200.1200, L503.6550, L3200.0500, L501.6710 #### [facility] [address] [place], [place], [id number] CRPon 08-27-2025 C-REACTIVE PROT 18.30 mg/L High 0.0-3.0 [facility] Comment on above: Performed By: #### L 503.6005 #### [facility] [address] [place], [address] Carbon dioxide, total [Moles /volume] in Central venous bloodOrdered By: Glen Chapman on 08-27-2025 CO2 [Moles/Vol] 20.0 mmol/L Low 21.0-32.0 [facility] Comment on above: Previous reported re sult: 19.6 mmol/LEdited by: CRISTA on 08/27/25:1520 AMENDED REPORT 08/27/251519 CO2 previously reported as: 19.6 L mmol/L Chloride assayOrdered By: Jaimee Chapman on 08-27-2025 Chloride [Moles/Vol] 90 mmol/L Low 98-108 [facility] Comprehensive Metabolic Prof ilon 08-27-2025 Albumin [Mass/Vol] 4.6 g/dL Normal 3.5-5.0 [facility] Comment on above: Performed By: #### L 503.0106, L500.4050, L501.1400, L400.0001, L503.6030, L3000.0800, L100.9950, L3890.6006, L501.5101, L100.0100, L504.2610, L501.5200, L506.0200, L3410.9992, L101.9900, L3100.1350, L3200.1200, L503.6550, L3200.0500, L501.6710 #### [facility] [address] [place], [place], [address] Albumin/Globulin [Mass ratio] 1.2 {ratio} Normal 0.9-2.4 [facility] Comment on above: Result Comment: AMENDED REPORT 08/27/251519 A/G previously reported as: 1.2 RATIO Performed By: #### L 503.0106, L500.4050, L501.1400, L400.0001, L503.6030, L3000.0800, L100.9950, L3890.6006, L501.5101, L100.0100, L504.2610, L501.5200, L506.0200, L3410.9992, L101.9900, L3100.1350, L3200.1200, L503.6550, L3200.0500, L501.6710 #### [facility] [address] [place], [place], [address] ALK PHOS 194 U/L High 35-104 [facility] Comment on above: Result Comment: AMENDED REPORT 08/27/251519 ALK P previously reported as: 196 H U/L Performed By: #### L 503.0106, L500.4050, L501.1400, L400.0001, L503.6030, L3000.0800, L100.9950, L3890.6006, L501.5101, L100.0100, L504.2610, L501.5200, L506.0200, L3410.9992, L101.9900, L3100.1350, L3200.1200, L503.6550, L3200.0500, L501.6710 #### [facility] [address] [place], [place], [address] ALT [Catalytic activity/Vol] 8 U/L Normal <=34 [facility] Comment on above: Result Comment: AMENDED REPORT 08/27/251519 ALT previously reported as: 9 U/L Performed By: #### L 503.0106, L500.4050, L501.1400, L400.0001, L503.6030, L3000.0800, L100.9950, L3890.6006, L501.5101, L100.0100, L504.2610, L501.5200, L506.0200, L3410.9992, L101.9900, L3100.1350, L3200.1200, L503.6550, L3200.0500, L501.6710 #### [facility] [address] [place], [place], [address] AST [Catalytic activity/Vol] 17 U/L Normal <=31 [facility] Comment on above: Result Comment: AMENDED REPORT 08/27/251519 AST previously reported as: 19 U/L Performed By: #### L 503.0106, L500.4050, L501.1400, L400.0001, L503.6030, L3000.0800, L100.9950, L3890.6006, L501.5101, L100.0100, L504.2610, L501.5200, L506.0200, L3410.9992, L101.9900, L3100.1350, L3200.1200, L503.6550, L3200.0500, L501.6710 #### [facility] [address] [facility] [place], [address] Bilirubin [Mass/Vol] 0.59 mg/dL Normal 0.00-1.30 [facility] Comment on above: Performed By: #### L 503.0106, L500.4050, L501.1400, L400.0001, L503.6030, L3000.0800, L100.9950, L3890.6006, L501.5101, L100.0100, L504.2610, L501.5200, L506.0200, L3410.9992, L101.9900, L3100.1350, L3200.1200, L503.6550, L3200.0500, L501.6710 #### [facility] [address] [facility] [place], [place], [address] BUN/CRE 16.9 RATIO Normal 10-20 [facility] Comment on above: Result Comment: AMENDED REPORT 08/27/251519 BUN/CRE previously reported as: 16.8 RATIO Performed By: #### L 503.0106, L500.4050, L501.1400, L400.0001, L503.6030, L3000.0800, L100.9950, L3890.6006, L501.5101, L100.0100, L504.2610, L501.5200, L506.0200, L3410.9992, L101.9900, L3100.1350, L3200.1200, L503.6550, L3200.0500, L501.6710 #### [facility] [address] [facility] [place], [address] Calcium [Mass/Vol] 10.5 mg/dL Normal 7.6-11.0 [facility] Comment on above: Performed By: #### L 503.0106, L500.4050, L501.1400, L400.0001, L503.6030, L3000.0800, L100.9950, L3890.6006, L501.5101, L100.0100, L504.2610, L501.5200, L506.0200, L3410.9992, L101.9900, L3100.1350, L3200.1200, L503.6550, L3200.0500, L501.6710 #### [facility] [address] [facility] [place], [address] Chloride [Moles/Vol] 90 mmol/L Low 98-108 [facility] Comment on above: Performed By: #### L 503.0106, L500.4050, L501.1400, L400.0001, L503.6030, L3000.0800, L100.9950, L3890.6006, L501.5101, L100.0100, L504.2610, L501.5200, L506.0200, L3410.9992, L101.9900, L3100.1350, L3200.1200, L503.6550, L3200.0500, L501.6710 #### [facility] [address] [place], [place], [id number] CO2 [Moles/Vol] 20.0 mmol/L Low 21.0-32.0 [facility] Comment on above: Result Comment: AMENDED REPORT 08/27/251519 CO2 previously reported as: 19.6 L mmol/L Performed By: #### L 503.0106, L500.4050, L501.1400, L400.0001, L503.6030, L3000.0800, L100.9950, L3890.6006, L501.5101, L100.0100, L504.2610, L501.5200, L506.0200, L3410.9992, L101.9900, L3100.1350, L3200.1200, L503.6550, L3200.0500, L501.6710 #### [facility] [address] [facility] [address] [place], [place], [id number] Creatinine [Mass/Vol] 1.58 mg/dL High 0.70-1.20 [facility] Comment on above: Result Comment: AMENDED REPORT 08/27/251519 CREAT,SERUM previously reported as: 1.65 H mg/dL Performed By: #### L 503.0106, L500.4050, L501.1400, L400.0001, L503.6030, L3000.0800, L100.9950, L3890.6006, L501.5101, L100.0100, L504.2610, L501.5200, L506.0200, L3410.9992, L101.9900, L3100.1350, L3200.1200, L503.6550, L3200.0500, L501.6710 #### [facility] [address] [place], [address] ECRCL 49.49 ml/min Low 50-250 [facility] Comment on above: Result Comment: AMENDED REPORT 08/27/251519 Estimated CRCL previously reported as: 47.39 L ml/min Performed By: #### L 503.0106, L500.4050, L501.1400, L400.0001, L503.6030, L3000.0800, L100.9950, L3890.6006, L501.5101, L100.0100, L504.2610, L501.5200, L506.0200, L3410.9992, L101.9900, L3100.1350, L3200.1200, L503.6550, L3200.0500, L501.6710 #### [facility] [address] [place], [address] Comment on above: Performed By: #### L 503.0106, L500.4050, L501.1400, L400.0001, L503.6030, L3000.0800, L100.9950, L3890.6006, L501.5101, L100.0100, L504.2610, L501.5200, L506.0200, L3410.9992, L101.9900, L3100.1350, L3200.1200, L503.6550, L3200.0500, L501.6710 #### [facility] [address] [facility] [place], [place], [id number] Globulin (S) [Mass/Vol] 3.7 g/dL Normal 2.2-4.2 [facility] Comment on above: Result Comment: AMENDED REPORT 08/27/25 1520 GLOB previously reported as: 3.8 g/dL Performed By: #### L 503.0106, L500.4050, L501.1400, L400.0001, L503.6030, L3000.0800, L100.9950, L3890.6006, L501.5101, L100.0100, L504.2610, L501.5200, L506.0200, L3410.9992, L101.9900, L3100.1350, L3200.1200, L503.6550, L3200.0500, L501.6710 #### [facility] [address] [place], [address] Glucose [Mass/Vol] 161 mg/dL High 70-99 [facility] Comment on above: Result Comment: AMENDED REPORT 08/27/25 9730 GLU previously reported as: 165 H mg/dL Performed By: #### L 503.0106, L500.4050, L501.1400, L400.0001, L503.6030, L3000.0800, L100.9950, L3890.6006, L501.5101, L100.0100, L504.2610, L501.5200, L506.0200, L3410.9992, L101.9900, L3100.1350, L3200.1200, L503.6550, L3200.0500, L501.6710 #### [facility] [address] [place], [address] Potassium [Moles/Vol] 4.0 mmol/L Normal 3.3-5.1 [facility] Comment on above: Performed By: #### L 503.0106, L500.4050, L501.1400, L400.0001, L503.6030, L3000.0800, L100.9950, L3890.6006, L501.5101, L100.0100, L504.2610, L501.5200, L506.0200, L3410.9992, L101.9900, L3100.1350, L3200.1200, L503.6550, L3200.0500, L501.6710 #### [facility] [address] [place], [address] Sodium [Moles/Vol] 131 mmol/L Low 133-145 [facility] Comment on above: Performed By: #### L 503.0106, L500.4050, L501.1400, L400.0001, L503.6030, L3000.0800, L100.9950, L3890.6006, L501.5101, L100.0100, L504.2610, L501.5200, L506.0200, L3410.9992, L101.9900, L3100.1350, L3200.1200, L503.6550, L3200.0500, L501.6710 #### [facility] [address] [place], [place], [id number] T PROT 8.2 g/dL Normal 5.9-8.4 [facility] Comment on above: Result Comment: AMENDED REPORT 08/27/251519 T PROT previously reported as: 8.4 g/dL Performed By: #### L 503.0106, L500.4050, L501.1400, L400.0001, L503.6030, L3000.0800, L100.9950, L3890.6006, L501.5101, L100.0100, L504.2610, L501.5200, L506.0200, L3410.9992, L101.9900, L3100.1350, L3200.1200, L503.6550, L3200.0500, L501.6710 #### [facility] [address] [place], [place], [id number] Urea nitrogen [Mass/Vol] 27 mg/dL High 4-19 [facility] Comment on above: Result Comment: AMENDED REPORT 08/27/251519 BUN previously reported as: 28 H mg/dL Performed By: #### L 503.0106, L500.4050, L501.1400, L400.0001, L503.6030, L3000.0800, L100.9950, L3890.6006, L501.5101, L100.0100, L504.2610, L501.5200, L506.0200, L3410.9992, L101.9900, L3100.1350, L3200.1200, L503.6550, L3200.0500, L501.6710 #### [facility] [address] [place], [place], [address] Eosinophil percentageOrdered By: Glen Chapman on 08-27-2025 Eosinophils/100 WBC (Bld) 2.2 % 0-5 [facility] Erythrocyte Sed Rateon 08-27 SED RATE 63 mm/hr High 0-30 [facility] Comment on above: Performed By: #### L 503.0106, L500.4050, L501.1400, L400.0001, L503.6030, L3000.0800, L100.9950, L3890.6006, L501.5101, L100.0100, L504.2610, L501.5200, L506.0200, L3410.9992, L101.9900, L3100.1350, L3200.1200, L503.6550, L3200.0500, L501.6710 #### [facility] [address] [place], [place], [id number] Erythrocyte distribution wid th ratioOrdered By: Glen Chapman on 08-27-2025 Erythrocyte distribution width (RBC) [Ratio] 13.8 % 11.6-14.6 [facility] Erythrocyte distribution wid th standard deviationOrdered By: Glen Chapman on 08-27-2025 Erythrocyte distribution width (RBC) [Ratio] 39.8 fl 35.1-43.9 [facility] Erythrocyte sedimentation ra teOrdered By: Glen Chapman on 08-27-2025 ESR (Bld) [Velocity] 63 mm/h High 0-30 [facility] Ferritinon 08-27-2025 Ferritin [Mass/Vol] 872 ng/mL High 22-378 [facility] Comment on above: Result Comment: AMENDED REPORT 08/27/25 1520 FERRITIN previously reported as: 819 H ng/mL Performed By: #### L 503.0106, L500.4050, L501.1400, L400.0001, L503.6030, L3000.0800, L100.9950, L3890.6006, L501.5101, L100.0100, L504.2610, L501.5200, L506.0200, L3410.9992, L101.9900, L3100.1350, L3200.1200, L503.6550, L3200.0500, L501.6710 #### [facility] [address] [place], [address] Folate [Mass/volume] in Seru m or PlasmaOrdered By: Glen Chapman on 08-27-2025 Folate [Mass/Vol] 15.90 ng/mL 4.60-34.80 [facility] Folates,Serum (Folic Acid)on 08-27-2025 FOLATES,SERUM 15.90 ng/mL Normal 4.60-34.80 [facility] Comment on above: Order Comment: N Performed By: #### L 503.0106, L500.4050, L501.1400, L400.0001, L503.6030, L3000.0800, L100.9950, L3890.6006, L501.5101, L100.0100, L504.2610, L501.5200, L506.0200, L3410.9992, L101.9900, L3100.1350, L3200.1200, L503.6550, L3200.0500, L501.6710 #### [facility] [address] [place], [address] Gamma glutamyl transferase ( GGT) measurementOrdered By: Glen Chapman on 08-27-2025 Amylase [Catalytic activity/Vol] 62 U/L High 0-60 [facility] Comment on above: Performed at: [address] [id number] Director: Preston Ashley PhD, Phone: [phone] Glomerular filtration rate ( GFR) estimation/1.73 sq m using serum, plasma, or whole bOrdered By: Glen Chapman on 08-27-2025 GFR/1.73 sq M.predicted among non-blacks MDRD (S/P/Bld) [Vol rate/Area] 37 mL/min/{1.73_m2} Low >60 [facility] Comment on above: mL/min/1.73m2 CKD-EP I Creatinine Equation (2020) HIVon 08-27-2025 HIV Non-Reactive Normal Nonreactive [facility] Comment on above: Result Comment: Non- Reactive Reactive Repeatedly reactive samples must be confirmed according to CDC recommended confirmatory algorithms. The subresults for either HIVAG or AHIV can be used as an aid in the selection of the confirmation algorithm for reactive samples. Send out specimens with Reactive results to [facility] for confirmation. Order the HIV antibody detection and differentiation: #[id number] Performed By: #### L 503.6005 #### [facility] [address] [place], [address] Hematocrit Auto (Bld) [Volum e fraction]Ordered By: Glen Chapman on 08-27-2025 Hematocrit (Bld) [Volume fraction] 33.2 % Low 37-47 [facility] Hemoglobin measurementOrdere d By: Glen Chapman on 08-27-2025 Hemoglobin (Bld) [Mass/Vol] 11.3 g/dL Low 12.0-15. 0 [facility] Immature granulocytes/100 WB C Auto (Bld)Ordered By: Glen Chapman on 08-27-2025 Immature granulocytes/100 WBC (Bld) 2.200 % High 0.0-0.9 [facility] Comment on above: IG% - Immature Granu locytes (promyelocytes, myelocytes and metamyelocytes) > 1% indicates that a LEFT SHIFT is Present. Iron measurement (mass/mass) Ordered By: Glen Chapman on 08-27-2025 Iron (Unsp spec) [Mass/Mass] 125 ug/dL 50-170 [facility] Iron+Iron Binding Capacityon 08-27-2025 Iron [Mass/Vol] 125 ug/dL Normal 50-170 [facility] Comment on above: Performed By: #### L 503.6005 #### [facility] [address] [place], [address] IRON SATURATION 25.7 Normal 13-59 [facility] Comment on above: Performed By: #### L 503.6005 #### [facility] [address] [place], [place], [id number] UIBC 362 ug/dL Normal 228-428 [facility] Comment on above: Performed By: #### L 503.6005 #### [facility] [address] [place], [place], [id number] Ketones Test strip Ql (U)Ord ered By: Glen Chapman on 08-27-2025 Ketones Ql (U) Negative Negative [facility] LDHon 08-27-2025 LDH 125 U/L Normal 84-246 [facility] Comment on above: Order Comment: Y Performed By: #### L 503.6005 #### [facility] [address] [place], [place], [id number] Laboratory - Chemistry and C hemistry - challengeOrdered By: Glen Chapman on 08-27-2025 AST [Catalytic activity/Vol] 17 U/L <32 [facility] Comment on above: Previous reported re sult: 19 U/LEdited by: AUTOINS on 08/27/25:1520 AMENDED REPORT 08/27/25 1520 AST previously reported as: 19 U/L Lactate dehydrogenase (LDH) measurementOrdered By: Glen Chapman on 08-27-2025 LDH [Catalytic activity/Vol] 125 U/L 84-246 [facility] MCV (mean corpuscular volume ) determinationOrdered By: Glen Chapman on 08-27-2025 MCV (RBC) [Entitic vol] 80.0 fL Low 81-99 [facility] Magnesiumon 08-27-2025 Magnesium [Mass/Vol] 2.2 mg/dL Normal 1.5-2.2 [facility] Comment on above: Performed By: #### L 503.6005 #### [facility] [address] [place], [place], [id number] Magnesium measurement (mass/ volume)Ordered By: Glen Chapman on 08-27-2025 Magnesium (Unsp spec) [Mass/Vol] 2.2 mg/dL 1.5-2.2 [facility] Mean corpuscular hemoglobin (MCH) determinationOrdered By: Glen Chapman on 08-27-2025 MCH (RBC) [Entitic mass] 27.2 pg 27.0-32.0 [facility] Mean corpuscular hemoglobin concentration (MCHC) determinationOrdered By: Glen Chapman on 08-27-2025 MCHC (RBC) [Mass/Vol] 34.0 g/dL 32-36 [facility] Mean platelet volume determi nationOrdered By: Glen Chapman on 08-27-2025 Platelet mean volume (Bld) [Entitic vol] 9.5 fL 6.2-12.0 [facility] Microscopic analysis of urin e for red blood cells (RBC)Ordered By: Glen Chapman on 08-27-2025 Microscopic analysis of urine for red blood cells (RBC) 0 SEEN /hpf 0-5 [facility] Monocyte percentageOrdered B y: Glen Chapman on 08-27-2025 Monocytes/100 WBC (Bld) 6.2 % 0-10 [facility] Mucus LM Ql (Urine sed)Order ed By: Glen Chapman on 08-27-2025 Mucus Ql (Urine sed) 0 SEEN /hpf [facility] Neutrophil percentageOrdered By: Glen Chapman on 08-27-2025 Neutrophils/100 WBC (Bld) 71.6 % High 47-70 [facility] Nitrite Test strip Ql (U)Ord ered By: Glen Chapman on 08-27-2025 Nitrite Ql (U) Negative Negative [facility] No Panel InformationOrdered By: Glen Chapman on 08-27-2025 Hepatitis C Antibody Comment Comment . [facility] Comment on above: Not infected with HC V unless early or acute infection issuspected (which may be delayed in an immunocompromisedindividual), or other evidence exists to indicate HCVinfection. Hepatitis Interpretation Comment . [facility] Comment on above: HBV Serology Interpr etation Chart --------- Interpretation HBsAg anti-HBs anti-HBc anti-HBc IgM --------- Garner - Analyte present: + Analyte absent: - Test not indicated: TNI --------- Susceptible (never infected and no evidence - - - TNI of vaccination) --------- Immune due to natural resolved infection - + + TNI --------- Immune due to vaccination - + - TNI --------- Acute Infection + - + + --------- Chronic infection + - + - --------- Interpretation unclear* - - + +/- --------- *Multiple possibilities: resolved infection (most common); false- positive anti-HBc (susceptible); "low-level" chronic infection"; resolving acute infection. HIV (1&2) Antibody Non-Reactive Nonreactive [facility] Comment on above: Non-ReactiveReactive Repeatedly reactive samples must be confirmed according to CDC recommended confirmatory algorithms. The subresults for either HIVAG or AHIV can be used as an aid in the selection of the confirmation algorithm for reactive samples.Send out specimens with Reactive results to [facility] for confirmation.Order the HIV antibody detection and differentiation: #[id number] Unsaturated Iron Binding Capacity 362 ug/dL 228-428 [facility] 17 U/L <32 [facility] 362 ug/dL 228-428 [facility] Comment . [facility] Non-Reactive Nonreactive [facility] Nucleated red blood cell per centageOrdered By: Glen Chapman on 08-27-2025 Nucleated RBC/100 WBC (Bld) [Ratio] 0 % 0-5 [facility] Oncology Visit Reporton 08-15 Oncology Visit Report [facility] [address] [place] [address] OFFICE VISIT Date of Service: 08/27/25 1121 MR#: [id number] Acct: [id number] Name: HEIDI ANDREWS Rep #: [id number] : 1970 From: Glen Chapman MD Age/Sex: 55/F Location: [facility] Status: Signed HPI Subjective Date [...] follow up. Feels tired, sleeps a lot. PFSH Medical History Sleep apnea Wears glasses [...] tab PO DAILY 11/10/22 08/27/25 H istory mg-hydrochlorothiazid e 12.5 mg tablet [...] vitamins, R (more content not included)... Normal [facility] Platelet countOrdered By: Jaimee Chapman on 08-27-2025 Platelets (Bld) [#/Vol] 333 10*3/uL 150-450 [facility] Potassium measurement (mass/ volume)Ordered By: Glen Chapman on 08-27-2025 Potassium (Unsp spec) [Mass/Vol] 4.0 mmol/L 3.3-5.1 [facility] Protein Test strip Ql (U)Ord ered By: Glen Chapman on 08-27-2025 Protein Ql (U) 30 mg/dl High Negative [facility] RBC Auto (Bld) [#/Vol]Ordere d By: Glen Chapman on 08-27-2025 RBC (Bld) [#/Vol] 4.15 10*6/uL Low 4.2-5.4 [facility] Retic Panelon 08-27-2025 IM RET FRACTION 12.30 Normal 3.00-15.90 [facility] Comment on above: Performed By: #### L 503.0106, L500.4050, L501.1400, L400.0001, L503.6030, L3000.0800, L100.9950, L3890.6006, L501.5101, L100.0100, L504.2610, L501.5200, L506.0200, L3410.9992, L101.9900, L3100.1350, L3200.1200, L503.6550, L3200.0500, L501.6710 #### [facility] [address] [place], [address] RET-HE 29.5 pg Low 30-35 [facility] Comment on above: Performed By: #### L 503.0106, L500.4050, L501.1400, L400.0001, L503.6030, L3000.0800, L100.9950, L3890.6006, L501.5101, L100.0100, L504.2610, L501.5200, L506.0200, L3410.9992, L101.9900, L3100.1350, L3200.1200, L503.6550, L3200.0500, L501.6710 #### [facility] [address] [place], [address] Retic Count 1.38 Normal 0.5-1.5 [facility] Comment on above: Performed By: #### L 503.0106, L500.4050, L501.1400, L400.0001, L503.6030, L3000.0800, L100.9950, L3890.6006, L501.5101, L100.0100, L504.2610, L501.5200, L506.0200, L3410.9992, L101.9900, L3100.1350, L3200.1200, L503.6550, L3200.0500, L501.6710 #### [facility] [address] [place] [place], [address] Reticulocyte hemoglobin equi valent (RET-He) measurementOrdered By: Glen Chapman on 08-27-2025 Hemoglobin (Reticulocytes) [Entitic mass] 29.5 pg Low 30-35 [facility] Reticulocytes Auto (Bld) [#/ Vol]Ordered By: Glen Chapman on 08-27-2025 Reticulocytes/100 RBC (Bld) 1.38 % 0.5-1.5 [facility] Serum IgG subclass 1 measure ment (mass/volume)Ordered By: Glen Chapman on 08-27-2025 IgG subclass 1 (S) [Mass/Vol] 334 mg/dL 248-810 [facility] Serum IgG subclass 2 measure ment (mass/volume)Ordered By: Glen Chapman on 08-27-2025 IgG subclass 2 (S) [Mass/Vol] 281 mg/dL 130-555 [facility] Serum IgG subclass 3 measure ment (mass/volume)Ordered By: Glen Chapman on 08-27-2025 IgG subclass 3 (S) [Mass/Vol] 51 mg/dL 15-102 [facility] Serum creatinine measurement (mass/volume)Ordered By: Glen Chapman on 08-27-2025 Creatinine [Mass/Vol] 1.58 mg/dL High 0.70-1.20 [facility] Comment on above: Previous reported re sult: 1.65 mg/dLEdited by: CRISTA on 08/27/25:1520 AMENDED REPORT 08/27/25 1520 CREAT,SERUM previously reported as: 1.65 H mg/dL Serum globulin measurementOr dered By: Glen Chapman on 08-27-2025 Globulin (S) [Mass/Vol] 3.7 g/dL 2.2-4.2 [facility] Comment on above: Previous reported re sult: 3.8 g/dLEdited by: CRISTA on 08/27/25:1520 AMENDED REPORT 08/27/25 1520 GLOB previously reported as: 3.8 g/dL Serum glucose measurement (m ass/volume)Ordered By: Glen Chapman on 08-27-2025 Glucose [Mass/Vol] 161 mg/dL High 70-99 [facility] Comment on above: Previous reported re sult: 165 mg/dLEdited by: CRISTA on 08/27/25:1520 AMENDED REPORT 08/27/25 1520 GLU previously reported as: 165 H mg/dL Serum hepatitis B virus core antibody detectionOrdered By: Glen Chapman on 08-27-2025 HBV core Ab Ql (S) Negative Negative [facility] Serum or plasma C reactive p rotein measurement (mass/volume)Ordered By: Glen Chapman on 08-27-2025 CRP [Mass/Vol] 18.30 mg/L High 0.0-3.0 [facility] Serum or plasma IgA measurem ent (mass/volume)Ordered By: Glen Chapman on 08-27-2025 IgA [Mass/Vol] 72 mg/dL Low 87-352 [facility] Serum or plasma IgG measurem ent (mass/volume)Ordered By: Glen Chapman on 08-27-2025 IgG [Mass/Vol] 718 mg/dL 586-1602 [facility] IgG [Mass/Vol] Not Reportable [facility] Serum or plasma alanine cueto otransferase (ALT) measurementOrdered By: Glen Chapman on 08-27-2025 ALT [Catalytic activity/Vol] 8 U/L <35 [facility] Comment on above: Previous reported re sult: 9 U/LEdited by: CRISTA on 08/27/25:1520 AMENDED REPORT 08/27/25 1520 ALT previously reported as: 9 U/L Serum or plasma albumin sandy urement (mass/volume)Ordered By: Glen Chapman on 08-27-2025 Albumin [Mass/Vol] 4.6 g/dL 3.5-5.0 [facility] Serum or plasma albumin/glob ulin mass ratioOrdered By: Glen Chapman on 08-27-2025 Albumin/Globulin [Mass ratio] 1.2 {ratio} 0.9-2.4 [facility] Comment on above: Previous reported re sult: 1.2 RATIOEdited by: CRISTA on 08/27/25:1520 AMENDED REPORT 08/27/25 1520 A/G previously reported as: 1.2 RATIO Serum or plasma alkaline rebecca sphatase measurementOrdered By: Glen Chapman on 08-27-2025 ALP [Catalytic activity/Vol] 194 U/L High 35-104 [facility] Comment on above: Previous reported re sult: 196 U/LEdited by: CRISTA on 08/27/25:1520 AMENDED REPORT 08/27/25 1520 ALK P previously reported as: 196 H U/L Serum or plasma calcium sandy urement (mass/volume)Ordered By: Glen Chapman on 08-27-2025 Calcium [Mass/Vol] 10.5 mg/dL 7.6-11.0 [facility] Serum or plasma erythropoiet in (EPO) measurement (units/volume)Ordered By: Glen Chapman on 08-27-2025 Erythropoietin (EPO) Qn 9.5 mIU/mL 2.6-18.5 [facility] Comment on above: [employer] DxI 800 Immunoassay SystemValues obtained with different assay methods or kits cannotbe used interchangeably. Results cannot be interpreted asabsolute evidence of the presence or absence of malignantdisease. Serum or plasma ferritin darrel surement (mass/volume)Ordered By: Glen Chapman on 08-27-2025 Ferritin [Mass/Vol] 872 ng/mL High 22-378 [facility] Comment on above: Previous reported re sult: 819 ng/mLEdited by: AUTOINS on 08/27/25:1520 AMENDED REPORT 08/27/25 1520 FERRITIN previously reported as: 819 H ng/mL Serum or plasma hepatitis B virus surface antigen detection by immunoassayOrdered By: Glen Chapman on 08-27-2025 HBV surface Ag IA Ql Negative Negative [facility] Serum or plasma iron saturat ion measurement (mass fraction)Ordered By: Glen Chapman on 08-27-2025 Iron saturation [Mass fraction] 25.7 % 13-59 [facility] Serum or plasma urea nitroge n measurement (mass/volume)Ordered By: Glen Chapman on 08-27-2025 Urea nitrogen [Mass/Vol] 27 mg/dL High 4-19 [facility] Comment on above: Previous reported re sult: 28 mg/dLEdited by: CRISTA on 08/27/25:1520 AMENDED REPORT 08/27/25 1520 BUN previously reported as: 28 H mg/dL Serum or plasma uric acid me asurement (mass/volume)Ordered By: Glen Chapman on 08-27-2025 Urate [Mass/Vol] 9.8 mg/dL High 2.6-6.0 [facility] Comment on above: The drugs N-Acetylcy steine and Metamizole may falsely depress this assay. Sodium levelOrdered By: Cy Chapman on 08-27-2025 Sodium [Moles/Vol] 131 mmol/L Low 133-145 [facility] Squamous epithelial cells de tection in urine sediment by light microscopyOrdered By: Glen Chapman on 08-27-2025 Epithelial cells.squamous LM Ql (Urine sed) 10-25 SEEN /hpf 5-10 [facility] Total proteinOrdered By: Vasquez Chapman on 08-27-2025 Protein [Mass/Vol] 8.2 g/dL 5.9-8.4 [facility] Comment on above: Previous reported re sult: 8.4 g/dLEdited by: CRISTA on 08/27/25:1520 AMENDED REPORT 08/27/25 1520 T PROT previously reported as: 8.4 g/dL Uric Acidon 08-27-2025 URIC 9.8 mg/dL High 2.6-6.0 [facility] Comment on above: Result Comment: The drugs N-Acetylcysteine and Metamizole may falsely depress this assay. Performed By: #### L 503.6005 #### [facility] [address] [place], [place], [address] Urinalysis, Completeon 08-27 BACTERIA 2+ /hpf Normal None Seen [facility] Comment on above: Order Comment: MADHAVI CTOR TO SPECIFY Performed By: #### L 503.0106, L500.4050, L501.1400, L400.0001, L503.6030, L3000.0800, L100.9950, L3890.6006, L501.5101, L100.0100, L504.2610, L501.5200, L506.0200, L3410.9992, L101.9900, L3100.1350, L3200.1200, L503.6550, L3200.0500, L501.6710 #### [facility] [address] [place], [place], [address] EPI,SQUAMOUS -25 SEEN Normal 5-10 [facility] Comment on above: Order Comment: MADHAVI CTOR TO SPECIFY Performed By: #### L 503.0106, L500.4050, L501.1400, L400.0001, L503.6030, L3000.0800, L100.9950, L3890.6006, L501.5101, L100.0100, L504.2610, L501.5200, L506.0200, L3410.9992, L101.9900, L3100.1350, L3200.1200, L503.6550, L3200.0500, L501.6710 #### [facility] [address] [place], [place], [id number] WBC 5-10 SEEN Normal 0-5 [facility] Comment on above: Order Comment: COLLE CTOR TO SPECIFY Performed By: #### L 503.0106, L500.4050, L501.1400, L400.0001, L503.6030, L3000.0800, L100.9950, L3890.6006, L501.5101, L100.0100, L504.2610, L501.5200, L506.0200, L3410.9992, L101.9900, L3100.1350, L3200.1200, L503.6550, L3200.0500, L501.6710 #### [facility] [address] [place], [place], [id number] Mucus Ql (Urine sed) 0 SEEN Normal [facility] Comment on above: Order Comment: COLLE CTOR TO SPECIFY Performed By: #### L 503.0106, L500.4050, L501.1400, L400.0001, L503.6030, L3000.0800, L100.9950, L3890.6006, L501.5101, L100.0100, L504.2610, L501.5200, L506.0200, L3410.9992, L101.9900, L3100.1350, L3200.1200, L503.6550, L3200.0500, L501.6710 #### [facility] [address] [facility] [place], [place], [id number] RBC 0 SEEN Normal 0-5 [facility] Comment on above: Order Comment: COLLE CTOR TO SPECIFY Performed By: #### L 503.0106, L500.4050, L501.1400, L400.0001, L503.6030, L3000.0800, L100.9950, L3890.6006, L501.5101, L100.0100, L504.2610, L501.5200, L506.0200, L3410.9992, L101.9900, L3100.1350, L3200.1200, L503.6550, L3200.0500, L501.6710 #### [facility] [facility] [place], [address] Urine clarityOrdered By: Vasquez Chapman on 08-27-2025 Clarity (U) Cloudy Clear [facility] Urine color determinationOrd ered By: lGen Chapman on 08-27-2025 Color (U) Yellow Yellow [facility] Urine glucose detectionOrder ed By: Glen Chapman on 08-27-2025 Glucose Ql (U) Normal mg/dl Normal [facility] Urine leukocyte esterase det ection by dipstickOrdered By: Glen Chapman on 08-27-2025 Leukocyte esterase Test strip Ql (U) 25 /ul High Negative [facility] Urine pHOrdered By: Glen sena on 08-27-2025 pH (U) 5.0 [pH] 5.0 - 8.0 [facility] Urine sediment bacteria coun t by microscopy (number/high power field)Ordered By: Glen Chapman on 08-27-2025 Bacteria LM.HPF (Urine sed) [#/Area] 2 /[HPF] None Seen [facility] Urine specific gravity measu rementOrdered By: Glen Chapman on 08-27-2025 Specific gravity (U) [Rel density] 1.015 1.002-1.030 [facility] Urine urobilinogen measureme ntOrdered By: Glen Chapman on 08-27-2025 Urobilinogen Ql (U) Normal mg/dl Normal [facility] Vitamin B12on 08-27-2025 Cobalamin (Vitamin B12) [Mass/Vol] 718 pg/mL Normal 180-914 [facility] Comment on above: Result Comment: AMENDED REPORT 08/27/25 1520 Vitamin B12 previously reported as: 715 pg/mL Performed By: #### L 503.0106, L500.4050, L501.1400, L400.0001, L503.6030, L3000.0800, L100.9950, L3890.6006, L501.5101, L100.0100, L504.2610, L501.5200, L506.0200, L3410.9992, L101.9900, L3100.1350, L3200.1200, L503.6550, L3200.0500, L501.6710 #### [facility] [place], [address] Vitamin B12 ser/plasOrdered By: Glen Chapman on 08-27-2025 Cobalamin (Vitamin B12) [Mass/Vol] 718 pg/mL 180-914 [facility] Comment on above: Previous reported re sult: 715 pg/mLEdited by: CRISTA on 08/27/25:1520 AMENDED REPORT 08/27/25 1520 Vitamin B12 previously reported as: 715 pg/mL White blood cell (WBC) count Ordered By: Glen Chapman on 08-27-2025 WBC (Bld) [#/Vol] 7.4 10*3/uL 4.4-11.0 [facility] White blood cell countOrdere d By: Glen Chapman on 08-27-2025 White blood cell count 5-10 SEEN /hpf 0-5 [facility] Absolute lymphocyte countOrd ered By: Glen Chapman on 08-22-2025 Lymphocytes Auto (Unsp spec) [#/Vol] 0.84 10*3/uL 0.83-4.51 [facility] Absolute neutrophil countOrd ered By: Glen Chapman on 08-22-2025 Neutrophils (Bld) [#/Vol] 8.6 10*3/uL High 2.0-7.7 [facility] Anion gap in Serum or Plasma Ordered By: Glen Chapman on 08-22-2025 Anion gap [Moles/Vol] 20 mmol/L High 5-15 [facility] Automated lymphocyte count a s percentage of total leukocytesOrdered By: Glen Chapman on 08-22-2025 Lymphocytes/100 WBC Auto (Unsp spec) 8.1 % Low 19-41 [facility] BUN/creatinine ratioOrdered By: Glen Chapman on 08-22-2025 Urea nitrogen/Creatinine [Mass ratio] 16.0 mg/mg 10-20 [facility] Basic Metabolic Profile (BMP )on 08-22-2025 BUN Normal - [facility] Comment on above: Order Comment: Order Date: 08/20/25Order Info: 0667-1 - BMP Result Comment: DUPL ICATE Performed By: #### L 503.0106, L500.4050, L501.1400, L400.0001, L503.6030, L3000.0800, L100.9950, L3890.6006, L501.5101, L100.0100, L504.2610, L501.5200, L506.0200, L3410.9992, L101.9900, L3100.1350, L3200.1200, L503.6550, L3200.0500, L501.6710 #### [facility] [address] [place], [place], [id number] (140) BUN/CRE Normal 09-03 [facility] Comment on above: Order Comment: Order Date: 08/20/25Order Info: 0667-1 - BMP Result Comment: DUPL ICATE Performed By: #### L 503.0106, L500.4050, L501.1400, L400.0001, L503.6030, L3000.0800, L100.9950, L3890.6006, L501.5101, L100.0100, L504.2610, L501.5200, L506.0200, L3410.9992, L101.9900, L3100.1350, L3200.1200, L503.6550, L3200.0500, L501.6710 #### [facility] [address] [place], [place], [id number] Calcium Normal 7.6-11.0 [facility] Comment on above: Order Comment: Order Date: 08/20/25Order Info: 0667-1 - BMP Result Comment: DUPL ICATE Performed By: #### L 503.0106, L500.4050, L501.1400, L400.0001, L503.6030, L3000.0800, L100.9950, L3890.6006, L501.5101, L100.0100, L504.2610, L501.5200, L506.0200, L3410.9992, L101.9900, L3100.1350, L3200.1200, L503.6550, L3200.0500, L501.6710 #### [facility] [address] [place], [place], [id number] CL Normal 98-108 [facility] Comment on above: Order Comment: Order Date: 08/20/25Order Info: 0667-1 - BMP Result Comment: DUPL ICATE Performed By: #### L 503.0106, L500.4050, L501.1400, L400.0001, L503.6030, L3000.0800, L100.9950, L3890.6006, L501.5101, L100.0100, L504.2610, L501.5200, L506.0200, L3410.9992, L101.9900, L3100.1350, L3200.1200, L503.6550, L3200.0500, L501.6710 #### [facility] [address] [facility] [address] [place], [place], [id number] CO2 Normal 21.0-32.0 [facility] Comment on above: Order Comment: Order Date: 08/20/25Order Info: 0667-1 - BMP Result Comment: DUPL ICATE Performed By: #### L 503.0106, L500.4050, L501.1400, L400.0001, L503.6030, L3000.0800, L100.9950, L3890.6006, L501.5101, L100.0100, L504.2610, L501.5200, L506.0200, L3410.9992, L101.9900, L3100.1350, L3200.1200, L503.6550, L3200.0500, L501.6710 #### [facility] [address] [place], [place], [id number] CREAT,SERUM Normal 0.70-1.20 [facility] Comment on above: Order Comment: Order Date: 08/20/25Order Info: 0667-1 - BMP Result Comment: DUPL ICATE Performed By: #### L 503.0106, L500.4050, L501.1400, L400.0001, L503.6030, L3000.0800, L100.9950, L3890.6006, L501.5101, L100.0100, L504.2610, L501.5200, L506.0200, L3410.9992, L101.9900, L3100.1350, L3200.1200, L503.6550, L3200.0500, L501.6710 #### [facility] [address] [place], [place], [phone] eGFR Normal >60 [facility] Comment on above: Order Comment: Order Date: 08/20/25Order Info: 0667- - BMP Result Comment: DUPL ICATE Performed By: #### L 503.0106, L500.4050, L501.1400, L400.0001, L503.6030, L3000.0800, L100.9950, L3890.6006, L501.5101, L100.0100, L504.2610, L501.5200, L506.0200, L3410.9992, L101.9900, L3100.1350, L3200.1200, L503.6550, L3200.0500, L501.6710 #### [facility] [address] [place], [place], [id number] GAP Normal 5-15 [facility] Comment on above: Order Comment: Order Date: 08/20/25Order Info: 0667-1 - BMP Result Comment: DUPL ICATE Performed By: #### L 503.0106, L500.4050, L501.1400, L400.0001, L503.6030, L3000.0800, L100.9950, L3890.6006, L501.5101, L100.0100, L504.2610, L501.5200, L506.0200, L3410.9992, L101.9900, L3100.1350, L3200.1200, L503.6550, L3200.0500, L501.6710 #### [facility] [address] [place], [place], [id number] GLU Normal 70-99 [facility] Comment on above: Order Comment: Order Date: 08/20/25Order Info: 0667-1 - BMP Result Comment: DUPL ICATE Performed By: #### L 503.0106, L500.4050, L501.1400, L400.0001, L503.6030, L3000.0800, L100.9950, L3890.6006, L501.5101, L100.0100, L504.2610, L501.5200, L506.0200, L3410.9992, L101.9900, L3100.1350, L3200.1200, L503.6550, L3200.0500, L501.6710 #### [facility] [address] [place], [place], [id number] (136) Potassium Normal 3.3-5.1 [facility] Comment on above: Order Comment: Order Date: 08/20/25Order Info: 0667-1 - BMP Result Comment: DUPL ICATE Performed By: #### L 503.0106, L500.4050, L501.1400, L400.0001, L503.6030, L3000.0800, L100.9950, L3890.6006, L501.5101, L100.0100, L504.2610, L501.5200, L506.0200, L3410.9992, L101.9900, L3100.1350, L3200.1200, L503.6550, L3200.0500, L501.6710 #### [facility] [address] [place], [place], [phone] (737) Basic Metabolic Profile (BMP) Normal 133-145 [facility] Comment on above: Order Comment: Order Date: 08/20/25Order Info: 0667-1 - BMP Result Comment: DUPL ICATE Performed By: #### L 503.0106, L500.4050, L501.1400, L400.0001, L503.6030, L3000.0800, L100.9950, L3890.6006, L501.5101, L100.0100, L504.2610, L501.5200, L506.0200, L3410.9992, L101.9900, L3100.1350, L3200.1200, L503.6550, L3200.0500, L501.6710 #### [facility] [address] [place], [place], [id number] Basophil percentageOrdered B y: Glen Chapman on 08-22-2025 Basophils/100 WBC (Bld) 0.4 % 0-1 [facility] Bilirubin, totalOrdered By: Glen Chapman on 08-22-2025 Bilirubin [Mass/Vol] 0.79 mg/dL 0.00-1.30 [facility] CBC W/Diff, Automatedon Anisocytosis Ql (Bld) 1+ Normal [facility] Comment on above: Performed By: #### L 503.0106, L500.4050, L501.1400, L400.0001, L503.6030, L3000.0800, L100.9950, L3890.6006, L501.5101, L100.0100, L504.2610, L501.5200, L506.0200, L3410.9992, L101.9900, L3100.1350, L3200.1200, L503.6550, L3200.0500, L501.6710 #### [facility] [address] [place], [place], [id number] CRPon 08-22-2025 C-REACTIVE PROT 129.00 mg/L High 0.0-3.0 [facility] Comment on above: Order Comment: Y Performed By: #### L 503.6005 #### [facility] [address] [place], [address] Carbon dioxide, total [Moles /volume] in Central venous bloodOrdered By: Glen Chapman on 08-22-2025 CO2 [Moles/Vol] 23.7 mmol/L 21.0-32.0 [facility] Chloride assayOrdered By: Jaimee Chapman on 08-22-2025 Chloride [Moles/Vol] 89 mmol/L Low 98-108 [facility] Comprehensive Metabolic Prof ilon 08-22-2025 Albumin [Mass/Vol] 4.1 g/dL Normal 3.5-5.0 [facility] Comment on above: Order Comment: CMP A ND CBCD GO TO DR. PEREZ ALL OTHER LABS GOT TO Performed By: #### L 503.0106, L500.4050, L501.1400, L400.0001, L503.6030, L3000.0800, L100.9950, L3890.6006, L501.5101, L100.0100, L504.2610, L501.5200, L506.0200, L3410.9992, L101.9900, L3100.1350, L3200.1200, L503.6550, L3200.0500, L501.6710 #### [facility] [address] [place], [address] Albumin/Globulin [Mass ratio] 1.0 {ratio} Normal 0.9-2.4 [facility] Comment on above: Order Comment: CMP A ND CBCD GO TO DR. PEREZ ALL OTHER LABS GOT TO Performed By: #### L 503.0106, L500.4050, L501.1400, L400.0001, L503.6030, L3000.0800, L100.9950, L3890.6006, L501.5101, L100.0100, L504.2610, L501.5200, L506.0200, L3410.9992, L101.9900, L3100.1350, L3200.1200, L503.6550, L3200.0500, L501.6710 #### [facility] [address] [facility] [place], [place], [id number] ALK PHOS 243 U/L High 35-104 [facility] Comment on above: Order Comment: CMP A ND CBCD GO TO DR. PEREZ ALL OTHER LABS GOT TO Performed By: #### L 503.0106, L500.4050, L501.1400, L400.0001, L503.6030, L3000.0800, L100.9950, L3890.6006, L501.5101, L100.0100, L504.2610, L501.5200, L506.0200, L3410.9992, L101.9900, L3100.1350, L3200.1200, L503.6550, L3200.0500, L501.6710 #### [facility] [address] [place], [address] ALT [Catalytic activity/Vol] 12 U/L Normal <=34 [facility] Comment on above: Order Comment: CMP A ND CBCD GO TO DR. PEREZ ALL OTHER LABS GOT TO Performed By: #### L 503.0106, L500.4050, L501.1400, L400.0001, L503.6030, L3000.0800, L100.9950, L3890.6006, L501.5101, L100.0100, L504.2610, L501.5200, L506.0200, L3410.9992, L101.9900, L3100.1350, L3200.1200, L503.6550, L3200.0500, L501.6710 #### [facility] [address] [place], [address] AST [Catalytic activity/Vol] 27 U/L Normal <=31 [facility] Comment on above: Order Comment: CMP A ND CBCD GO TO DR. PEREZ ALL OTHER LABS GOT TO Performed By: #### L 503.0106, L500.4050, L501.1400, L400.0001, L503.6030, L3000.0800, L100.9950, L3890.6006, L501.5101, L100.0100, L504.2610, L501.5200, L506.0200, L3410.9992, L101.9900, L3100.1350, L3200.1200, L503.6550, L3200.0500, L501.6710 #### [facility] [address] [place], [address] Bilirubin [Mass/Vol] 0.79 mg/dL Normal 0.00-1.30 [facility] Comment on above: Order Comment: CMP A ND CBCD GO TO DR. PEREZ ALL OTHER LABS GOT TO Performed By: #### L 503.0106, L500.4050, L501.1400, L400.0001, L503.6030, L3000.0800, L100.9950, L3890.6006, L501.5101, L100.0100, L504.2610, L501.5200, L506.0200, L3410.9992, L101.9900, L3100.1350, L3200.1200, L503.6550, L3200.0500, L501.6710 #### [facility] [address] [place], [place], [id number] BUN/CRE 16.0 RATIO Normal 10-20 [facility] Comment on above: Order Comment: CMP A ND CBCD GO TO DR. PEREZ ALL OTHER LABS GOT TO Performed By: #### L 503.0106, L500.4050, L501.1400, L400.0001, L503.6030, L3000.0800, L100.9950, L3890.6006, L501.5101, L100.0100, L504.2610, L501.5200, L506.0200, L3410.9992, L101.9900, L3100.1350, L3200.1200, L503.6550, L3200.0500, L501.6710 #### [facility] [address] [place], [address] Calcium [Mass/Vol] 10.3 mg/dL Normal 7.6-11.0 [facility] Comment on above: Order Comment: CMP A ND CBCD GO TO DR. PEREZ ALL OTHER LABS GOT TO Performed By: #### L 503.0106, L500.4050, L501.1400, L400.0001, L503.6030, L3000.0800, L100.9950, L3890.6006, L501.5101, L100.0100, L504.2610, L501.5200, L506.0200, L3410.9992, L101.9900, L3100.1350, L3200.1200, L503.6550, L3200.0500, L501.6710 #### [facility] [address] [place], [address] Chloride [Moles/Vol] 89 mmol/L Low 98-108 [facility] Comment on above: Order Comment: CMP A ND CBCD GO TO DR. PEREZ ALL OTHER LABS GOT TO Performed By: #### L 503.0106, L500.4050, L501.1400, L400.0001, L503.6030, L3000.0800, L100.9950, L3890.6006, L501.5101, L100.0100, L504.2610, L501.5200, L506.0200, L3410.9992, L101.9900, L3100.1350, L3200.1200, L503.6550, L3200.0500, L501.6710 #### [facility] [address] [place], [address] CO2 [Moles/Vol] 23.7 mmol/L Normal 21.0-32.0 [facility] Comment on above: Order Comment: CMP A ND CBCD GO TO DR. PEREZ ALL OTHER LABS GOT TO Performed By: #### L 503.0106, L500.4050, L501.1400, L400.0001, L503.6030, L3000.0800, L100.9950, L3890.6006, L501.5101, L100.0100, L504.2610, L501.5200, L506.0200, L3410.9992, L101.9900, L3100.1350, L3200.1200, L503.6550, L3200.0500, L501.6710 #### [facility] [address] [place], [address] Creatinine [Mass/Vol] 1.39 mg/dL High 0.70-1.20 [facility] Comment on above: Order Comment: CMP A ND CBCD GO TO DR. PEREZ ALL OTHER LABS GOT TO Performed By: #### L 503.0106, L500.4050, L501.1400, L400.0001, L503.6030, L3000.0800, L100.9950, L3890.6006, L501.5101, L100.0100, L504.2610, L501.5200, L506.0200, L3410.9992, L101.9900, L3100.1350, L3200.1200, L503.6550, L3200.0500, L501.6710 #### [facility] [address] [facility] [place], [place], [id number] GAP 20 High 5-15 [facility] Comment on above: Order Comment: CMP A ND CBCD GO TO DR. PEREZ ALL OTHER LABS GOT TO Performed By: #### L 503.0106, L500.4050, L501.1400, L400.0001, L503.6030, L3000.0800, L100.9950, L3890.6006, L501.5101, L100.0100, L504.2610, L501.5200, L506.0200, L3410.9992, L101.9900, L3100.1350, L3200.1200, L503.6550, L3200.0500, L501.6710 #### [facility] [address] [place], [place], [address] GFR/1.73 sq M.predicted among non-blacks MDRD (S/P/Bld) [Vol rate/Area] 45 mL/min/{1.73_m2} Low >60 [facility] Comment on above: Order Comment: CMP A ND CBCD GO TO DR. PEREZ ALL OTHER LABS GOT TO Result Comment: mL/m in/1.73m2 CKD-EPI Creatinine Equation (2020) Performed By: #### L 503.0106, L500.4050, L501.1400, L400.0001, L503.6030, L3000.0800, L100.9950, L3890.6006, L501.5101, L100.0100, L504.2610, L501.5200, L506.0200, L3410.9992, L101.9900, L3100.1350, L3200.1200, L503.6550, L3200.0500, L501.6710 #### [facility] [address] [place], [place], [id number] Globulin (S) [Mass/Vol] 4.1 g/dL Normal 2.2-4.2 [facility] Comment on above: Order Comment: CMP A ND CBCD GO TO DR. PEREZ ALL OTHER LABS GOT TO Performed By: #### L 503.0106, L500.4050, L501.1400, L400.0001, L503.6030, L3000.0800, L100.9950, L3890.6006, L501.5101, L100.0100, L504.2610, L501.5200, L506.0200, L3410.9992, L101.9900, L3100.1350, L3200.1200, L503.6550, L3200.0500, L501.6710 #### [facility] [address] [place], [address] Glucose [Mass/Vol] 193 mg/dL High 70-99 [facility] Comment on above: Order Comment: CMP A ND CBCD GO TO DR. PEREZ ALL OTHER LABS GOT TO Performed By: #### L 503.0106, L500.4050, L501.1400, L400.0001, L503.6030, L3000.0800, L100.9950, L3890.6006, L501.5101, L100.0100, L504.2610, L501.5200, L506.0200, L3410.9992, L101.9900, L3100.1350, L3200.1200, L503.6550, L3200.0500, L501.6710 #### [facility] [address] [place], [address] Potassium [Moles/Vol] 3.2 mmol/L Low 3.3-5.1 [facility] Comment on above: Order Comment: CMP A ND CBCD GO TO DR. PEREZ ALL OTHER LABS GOT TO Performed By: #### L 503.0106, L500.4050, L501.1400, L400.0001, L503.6030, L3000.0800, L100.9950, L3890.6006, L501.5101, L100.0100, L504.2610, L501.5200, L506.0200, L3410.9992, L101.9900, L3100.1350, L3200.1200, L503.6550, L3200.0500, L501.6710 #### [facility] [address] [place], [address] Sodium [Moles/Vol] 132 mmol/L Low 133-145 [facility] Comment on above: Order Comment: CMP A ND CBCD GO TO DR. PEREZ ALL OTHER LABS GOT TO Performed By: #### L 503.0106, L500.4050, L501.1400, L400.0001, L503.6030, L3000.0800, L100.9950, L3890.6006, L501.5101, L100.0100, L504.2610, L501.5200, L506.0200, L3410.9992, L101.9900, L3100.1350, L3200.1200, L503.6550, L3200.0500, L501.6710 #### [facility] [address] [place], [address] T PROT 8.2 g/dL Normal 5.9-8.4 [facility] Comment on above: Order Comment: CMP A ND CBCD GO TO DR. PEREZ ALL OTHER LABS GOT TO Performed By: #### L 503.0106, L500.4050, L501.1400, L400.0001, L503.6030, L3000.0800, L100.9950, L3890.6006, L501.5101, L100.0100, L504.2610, L501.5200, L506.0200, L3410.9992, L101.9900, L3100.1350, L3200.1200, L503.6550, L3200.0500, L501.6710 #### [facility] [address] [facility] [place], [place], [id number] Urea nitrogen [Mass/Vol] 22 mg/dL High 4-19 [facility] Comment on above: Order Comment: CMP A ND CBCD GO TO DR. PEREZ ALL OTHER LABS GOT TO Performed By: #### L 503.0106, L500.4050, L501.1400, L400.0001, L503.6030, L3000.0800, L100.9950, L3890.6006, L501.5101, L100.0100, L504.2610, L501.5200, L506.0200, L3410.9992, L101.9900, L3100.1350, L3200.1200, L503.6550, L3200.0500, L501.6710 #### [facility] [address] [place], [place], [id number] Eosinophil percentageOrdered By: Glen Chapman on 08-22-2025 Eosinophils/100 WBC (Bld) 0.6 % 0-5 [facility] Erythrocyte Sed Rateon 08-22 SED RATE 74 mm/hr High 0-30 [facility] Comment on above: Performed By: #### L 503.6005 #### [facility] [address] [place], [place], [id number] Erythrocyte distribution wid th ratioOrdered By: Glen Chapman on 08-22-2025 Erythrocyte distribution width (RBC) [Ratio] 13.4 % 11.6-14.6 [facility] Erythrocyte distribution wid th standard deviationOrdered By: Glen Chapman on 08-22-2025 Erythrocyte distribution width (RBC) [Ratio] 38.8 fl 35.1-43.9 [facility] Erythrocyte sedimentation ra teOrdered By: Glen Chapman on 08-22-2025 ESR (Bld) [Velocity] 74 mm/h High 0-30 [facility] Ferritinon 08-22-2025 Ferritin [Mass/Vol] 837 ng/mL High 22-378 [facility] Comment on above: Order Comment: Y Performed By: #### L 503.6005 #### [facility] [address] [place], [place], [id number] Glomerular filtration rate ( GFR) estimation/1.73 sq m using serum, plasma, or whole bOrdered By: Glen Chapman on 08-22-2025 GFR/1.73 sq M.predicted among non-blacks MDRD (S/P/Bld) [Vol rate/Area] 45 mL/min/{1.73_m2} Low >60 [facility] Comment on above: mL/min/1.73m2 CKD-EP I Creatinine Equation (2020) Hematocrit Auto (Bld) [Volum e fraction]Ordered By: Glen Chapman on 08-22-2025 Hematocrit (Bld) [Volume fraction] 31.3 % Low 37-47 [facility] Hemoglobin measurementOrdere d By: Glen Ari on 08-22-2025 Hemoglobin (Bld) [Mass/Vol] 10.3 g/dL Low 12.0-15. 0 [facility] Immature granulocytes/100 WB C Auto (Bld)Ordered By: Glen Chapman on 08-22-2025 Immature granulocytes/100 WBC (Bld) 2.600 % High 0.0-0.9 [facility] Comment on above: IG% - Immature Granu locytes (promyelocytes, myelocytes and metamyelocytes) > 1% indicates that a LEFT SHIFT is Present. Iron measurement (mass/mass) Ordered By: Glen Ari on 08-22-2025 Iron (Unsp spec) [Mass/Mass] 55 ug/dL 50-170 [facility] Iron+Iron Binding Capacityon 08-22-2025 Iron [Mass/Vol] 55 ug/dL Normal 50-170 [facility] Comment on above: Order Comment: Y Performed By: #### L [id number] #### [facility] [address] [place], [address] IRON SATURATION 14.2 Normal 13-59 [facility] Comment on above: Order Comment: Y Performed By: #### L [id number] #### [facility] [address] [place], [address] TIBC 386 ug/dL Normal 250-450 [facility] Comment on above: Order Comment: Y Performed By: #### L [id number] #### [facility] [address] [place], [address] UIBC 331 ug/dL Normal 228-428 [facility] Comment on above: Order Comment: Y Performed By: #### L [id number] #### [facility] [address] [place], [address] LDHon 08-22-2025 LDH 132 U/L Normal 84-246 [facility] Comment on above: Order Comment: Y Performed By: #### L [id number] #### [facility] [address] [place], [place], [address] Laboratory - Chemistry and C hemistry - challengeOrdered By: Glen Chapman on 08-22-2025 AST [Catalytic activity/Vol] 27 U/L <32 [facility] Laboratory - Hematology and Cell countsOrdered By: Glen Chapman on 08-22-2025 Anisocytosis Ql (Bld) 1+ [facility] Lactate dehydrogenase (LDH) measurementOrdered By: Glen Chapman on 08-22-2025 LDH [Catalytic activity/Vol] 132 U/L 84-246 [facility] MCV (mean corpuscular volume ) determinationOrdered By: Glen Chapman on 08-22-2025 MCV (RBC) [Entitic vol] 80.5 fL Low 81-99 [facility] Magnesiumon 08-22-2025 Magnesium [Mass/Vol] 2.3 mg/dL High 1.5-2.2 [facility] Comment on above: Order Comment: Y Performed By: #### L 503.6005 #### [facility] [address] [place], [address] Magnesium measurement (mass/ volume)Ordered By: Glen Chapman on 08-22-2025 Magnesium (Unsp spec) [Mass/Vol] 2.3 mg/dL High 1.5-2.2 [facility] Mean corpuscular hemoglobin (MCH) determinationOrdered By: Glen Chapman on 08-22-2025 MCH (RBC) [Entitic mass] 26.5 pg Low 27.0-32.0 [facility] Mean corpuscular hemoglobin concentration (MCHC) determinationOrdered By: Glen Chapman on 08-22-2025 MCHC (RBC) [Mass/Vol] 32.9 g/dL 32-36 [facility] Mean platelet volume determi nationOrdered By: Glen Chapman on 08-22-2025 Platelet mean volume (Bld) [Entitic vol] 10.2 fL 6.2-12.0 [facility] Monocyte percentageOrdered B y: Glen Chapman on 08-22-2025 Monocytes/100 WBC (Bld) 5.4 % 0-10 [facility] Neutrophil percentageOrdered By: Glen Chapman on 08-22-2025 Neutrophils/100 WBC (Bld) 82.9 % High 47-70 [facility] No Panel InformationOrdered By: Glen Chapman on 08-22-2025 Unsaturated Iron Binding Capacity 331 ug/dL 228-428 [facility] 1+ [facility] 27 U/L <32 [facility] 331 ug/dL 228-428 [facility] Nucleated red blood cell per centageOrdered By: Glen Chapman on 08-22-2025 Nucleated RBC/100 WBC (Bld) [Ratio] 0 % 0-5 [facility] Phosphoruson 08-22-2025 Phosphate [Mass/Vol] 2.8 mg/dL Normal 2.7-4.5 [facility] Comment on above: Order Comment: Y Performed By: #### L 503.6005 #### [facility] [address] [place], [place] [address] [place], [address] Platelet countOrdered By: Jaimee Chapman on 08-22-2025 Platelets (Bld) [#/Vol] 391 10*3/uL 150-450 [facility] Potassium measurement (mass/ volume)Ordered By: Glen Chapman on 08-22-2025 Potassium (Unsp spec) [Mass/Vol] 3.2 mmol/L Low 3.3-5.1 [facility] RBC Auto (Bld) [#/Vol]Ordere d By: Glen Chapman on 08-22-2025 RBC (Bld) [#/Vol] 3.89 10*6/uL Low 4.2-5.4 [facility] Serum creatinine measurement (mass/volume)Ordered By: Glen Chapman on 08-22-2025 Creatinine [Mass/Vol] 1.39 mg/dL High 0.70-1.20 [facility] Serum globulin measurementOr dered By: Glen Chapman on 08-22-2025 Globulin (S) [Mass/Vol] 4.1 g/dL 2.2-4.2 [facility] Serum glucose measurement (m ass/volume)Ordered By: Glen Chapman on 08-22-2025 Glucose [Mass/Vol] 193 mg/dL High 70-99 [facility] Serum or plasma C reactive p rotein measurement (mass/volume)Ordered By: Glen Chapman on 08-22-2025 CRP [Mass/Vol] 129.00 mg/L High 0.0-3.0 [facility] Serum or plasma alanine cueto otransferase (ALT) measurementOrdered By: Glen Chapman on 08-22-2025 ALT [Catalytic activity/Vol] 12 U/L <35 [facility] Serum or plasma albumin sandy urement (mass/volume)Ordered By: Glen Chapman on 08-22-2025 Albumin [Mass/Vol] 4.1 g/dL 3.5-5.0 [facility] Serum or plasma albumin/glob ulin mass ratioOrdered By: Glen Chapmna on 08-22-2025 Albumin/Globulin [Mass ratio] 1.0 {ratio} 0.9-2.4 [facility] Serum or plasma alkaline rebecca sphatase measurementOrdered By: Glen Chapman on 08-22-2025 ALP [Catalytic activity/Vol] 243 U/L High 35-104 [facility] Serum or plasma calcium sandy urement (mass/volume)Ordered By: Glen Chapman on 08-22-2025 Calcium [Mass/Vol] 10.3 mg/dL 7.6-11.0 [facility] Serum or plasma ferritin darrel surement (mass/volume)Ordered By: Glen Chapman on 08-22-2025 Ferritin [Mass/Vol] 837 ng/mL High 22-378 [facility] Serum or plasma iron saturat ion measurement (mass fraction)Ordered By: Glen Chapman on 08-22-2025 Iron saturation [Mass fraction] 14.2 % 13-59 [facility] Serum or plasma urea nitroge n measurement (mass/volume)Ordered By: Glen Chapman on 08-22-2025 Urea nitrogen [Mass/Vol] 22 mg/dL High 4-19 [facility] Sodium levelOrdered By: Cy Chapman on 08-22-2025 Sodium [Moles/Vol] 132 mmol/L Low 133-145 [facility] Total proteinOrdered By: Vasquez Chapman on 08-22-2025 Protein [Mass/Vol] 8.2 g/dL 5.9-8.4 [facility] Vitamin B12on 08-22-2025 Cobalamin (Vitamin B12) [Mass/Vol] 747 pg/mL Normal 180-914 [facility] Comment on above: Order Comment: Y Performed By: #### L 503.6005 #### [facility] [place], [address] Vitamin B12 ser/plasOrdered By: Glen Chapman on 08-22-2025 Cobalamin (Vitamin B12) [Mass/Vol] 747 pg/mL 180-914 [facility] White blood cell (WBC) count Ordered By: Glen Chapman on 08-22-2025 WBC (Bld) [#/Vol] 10.3 10*3/uL 4.4-11.0 [facility] Absolute lymphocyte countOrd ered By: Red Perez on 08-17-2025 Lymphocytes Auto (Unsp spec) [#/Vol] 0.97 10*3/uL 0.83-4.51 [facility] Absolute neutrophil countOrd ered By: Red Perez on 08-17-2025 Neutrophils (Bld) [#/Vol] 8.7 10*3/uL High 2.0-7.7 [facility] Anion gap in Serum or Plasma Ordered By: Red Perez on 08-17-2025 Anion gap [Moles/Vol] 22 mmol/L High 5-15 [facility] Automated lymphocyte count a s percentage of total leukocytesOrdered By: Red Perez on 08-17-2025 Lymphocytes/100 WBC Auto (Unsp spec) 9.1 % Low 19-41 [facility] BUN/creatinine ratioOrdered By: Red Preez on 08-17-2025 Urea nitrogen/Creatinine [Mass ratio] 14.1 mg/mg 10-20 [facility] Basophil percentageOrdered B y: Red Perez on 08-17-2025 Basophils/100 WBC (Bld) 0.5 % 0-1 [facility] Bilirubin, totalOrdered By: Red Perez on 08-17-2025 Bilirubin [Mass/Vol] 0.42 mg/dL 0.00-1.30 [facility] CBC W/Diff, Automatedon 10-0 -2024 Absolute Lymph 0.97 X10 3/uL Normal 0.83-4.51 [facility] Comment on above: Performed By: #### L 503.0106, L500.4050, L501.1400, L400.0001, L503.6030, L3000.0800, L100.9950, L3890.6006, L501.5101, L100.0100, L504.2610, L501.5200, L506.0200, L3410.9992, L101.9900, L3100.1350, L3200.1200, L503.6550, L3200.0500, L501.6710 #### [facility] [address] [facility] [place], [place], [id number] Absolute Neut 8.7 X10 3/uL High 2.0-7.7 [facility] Comment on above: Performed By: #### L 503.0106, L500.4050, L501.1400, L400.0001, L503.6030, L3000.0800, L100.9950, L3890.6006, L501.5101, L100.0100, L504.2610, L501.5200, L506.0200, L3410.9992, L101.9900, L3100.1350, L3200.1200, L503.6550, L3200.0500, L501.6710 #### [facility] [address] [place], [place], [id number] Basophils/100 WBC (Bld) 0.5 % Normal 0-1 [facility] Comment on above: Performed By: #### L 503.0106, L500.4050, L501.1400, L400.0001, L503.6030, L3000.0800, L100.9950, L3890.6006, L501.5101, L100.0100, L504.2610, L501.5200, L506.0200, L3410.9992, L101.9900, L3100.1350, L3200.1200, L503.6550, L3200.0500, L501.6710 #### [facility] [address] [place], [place], [id number] (660) Eosinophils/100 WBC (Bld) 0.3 % Normal 0-5 [facility] Comment on above: Performed By: #### L 503.0106, L500.4050, L501.1400, L400.0001, L503.6030, L3000.0800, L100.9950, L3890.6006, L501.5101, L100.0100, L504.2610, L501.5200, L506.0200, L3410.9992, L101.9900, L3100.1350, L3200.1200, L503.6550, L3200.0500, L501.6710 #### [facility] [address] [place], [address] Erythrocyte distribution width (RBC) [Ratio] 13.3 % Normal 11.6-14.6 [facility] Comment on above: Performed By: #### L 503.0106, L500.4050, L501.1400, L400.0001, L503.6030, L3000.0800, L100.9950, L3890.6006, L501.5101, L100.0100, L504.2610, L501.5200, L506.0200, L3410.9992, L101.9900, L3100.1350, L3200.1200, L503.6550, L3200.0500, L501.6710 #### [facility] [address] [place], [address] Hematocrit (Bld) [Volume fraction] 29.3 % Low 37-47 [facility] Comment on above: Performed By: #### L 503.0106, L500.4050, L501.1400, L400.0001, L503.6030, L3000.0800, L100.9950, L3890.6006, L501.5101, L100.0100, L504.2610, L501.5200, L506.0200, L3410.9992, L101.9900, L3100.1350, L3200.1200, L503.6550, L3200.0500, L501.6710 #### [facility] [address] [place], [place], [id number] (092) Hemoglobin (Bld) [Mass/Vol] 9.5 g/dL Low 12.0-15. 0 [facility] Comment on above: Performed By: #### L 503.0106, L500.4050, L501.1400, L400.0001, L503.6030, L3000.0800, L100.9950, L3890.6006, L501.5101, L100.0100, L504.2610, L501.5200, L506.0200, L3410.9992, L101.9900, L3100.1350, L3200.1200, L503.6550, L3200.0500, L501.6710 #### [facility] [address] [place], [address] IG% 3.000 High 0.0-0.9 [facility] Comment on above: Result Comment: IG% - Immature Granulocytes (promyelocytes, myelocytes and metamyelocytes) > 1% indicates that a LEFT SHIFT is Present. Performed By: #### L 503.0106, L500.4050, L501.1400, L400.0001, L503.6030, L3000.0800, L100.9950, L3890.6006, L501.5101, L100.0100, L504.2610, L501.5200, L506.0200, L3410.9992, L101.9900, L3100.1350, L3200.1200, L503.6550, L3200.0500, L501.6710 #### [facility] [address] [place], [place], [id number] (316) Lymphocytes/100 WBC (Bld) 9.1 % Low 19-41 [facility] Comment on above: Performed By: #### L 503.0106, L500.4050, L501.1400, L400.0001, L503.6030, L3000.0800, L100.9950, L3890.6006, L501.5101, L100.0100, L504.2610, L501.5200, L506.0200, L3410.9992, L101.9900, L3100.1350, L3200.1200, L503.6550, L3200.0500, L501.6710 #### [facility] [address] [place], [place], [address] MCH (RBC) [Entitic mass] 26.5 pg Low 27.0-32.0 [facility] Comment on above: Performed By: #### L 503.0106, L500.4050, L501.1400, L400.0001, L503.6030, L3000.0800, L100.9950, L3890.6006, L501.5101, L100.0100, L504.2610, L501.5200, L506.0200, L3410.9992, L101.9900, L3100.1350, L3200.1200, L503.6550, L3200.0500, L501.6710 #### [facility] [address] [place], [place], [address] MCHC (RBC) [Mass/Vol] 32.4 g/dL Normal 32-36 [facility] Comment on above: Performed By: #### L 503.0106, L500.4050, L501.1400, L400.0001, L503.6030, L3000.0800, L100.9950, L3890.6006, L501.5101, L100.0100, L504.2610, L501.5200, L506.0200, L3410.9992, L101.9900, L3100.1350, L3200.1200, L503.6550, L3200.0500, L501.6710 #### [facility] [address] [place], [address] MCV (RBC) [Entitic vol] 81.6 fL Normal 81-99 [facility] Comment on above: Performed By: #### L 503.0106, L500.4050, L501.1400, L400.0001, L503.6030, L3000.0800, L100.9950, L3890.6006, L501.5101, L100.0100, L504.2610, L501.5200, L506.0200, L3410.9992, L101.9900, L3100.1350, L3200.1200, L503.6550, L3200.0500, L501.6710 #### [facility] [address] [place], [address] Monocytes/100 WBC (Bld) 5.2 % Normal 0-10 [facility] Comment on above: Performed By: #### L 503.0106, L500.4050, L501.1400, L400.0001, L503.6030, L3000.0800, L100.9950, L3890.6006, L501.5101, L100.0100, L504.2610, L501.5200, L506.0200, L3410.9992, L101.9900, L3100.1350, L3200.1200, L503.6550, L3200.0500, L501.6710 #### [facility] [address] [place], [address] Neutrophils/100 WBC (Bld) 81.9 % High 47-70 [facility] Comment on above: Performed By: #### L 503.0106, L500.4050, L501.1400, L400.0001, L503.6030, L3000.0800, L100.9950, L3890.6006, L501.5101, L100.0100, L504.2610, L501.5200, L506.0200, L3410.9992, L101.9900, L3100.1350, L3200.1200, L503.6550, L3200.0500, L501.6710 #### [facility] [address] [place], [place], [id number] (980) Nucleated RBC (Bld) [#/Vol] 0 10*3/uL Normal 0-5 [facility] Comment on above: Performed By: #### L 503.0106, L500.4050, L501.1400, L400.0001, L503.6030, L3000.0800, L100.9950, L3890.6006, L501.5101, L100.0100, L504.2610, L501.5200, L506.0200, L3410.9992, L101.9900, L3100.1350, L3200.1200, L503.6550, L3200.0500, L501.6710 #### [facility] [address] [place], [address] (619) Platelet mean volume (Bld) [Entitic vol] 10.0 fL Normal 6.2-12.0 [facility] Comment on above: Performed By: #### L 503.0106, L500.4050, L501.1400, L400.0001, L503.6030, L3000.0800, L100.9950, L3890.6006, L501.5101, L100.0100, L504.2610, L501.5200, L506.0200, L3410.9992, L101.9900, L3100.1350, L3200.1200, L503.6550, L3200.0500, L501.6710 #### [facility] [address] [place], [place], [id number] (521) Platelets (Bld) [#/Vol] 370 10*3/uL Normal 150-450 [facility] Comment on above: Performed By: #### L 503.0106, L500.4050, L501.1400, L400.0001, L503.6030, L3000.0800, L100.9950, L3890.6006, L501.5101, L100.0100, L504.2610, L501.5200, L506.0200, L3410.9992, L101.9900, L3100.1350, L3200.1200, L503.6550, L3200.0500, L501.6710 #### [facility] [address] [place], [address] RBC (Bld) [#/Vol] 3.59 10*6/uL Low 4.2-5.4 [facility] Comment on above: Performed By: #### L 503.0106, L500.4050, L501.1400, L400.0001, L503.6030, L3000.0800, L100.9950, L3890.6006, L501.5101, L100.0100, L504.2610, L501.5200, L506.0200, L3410.9992, L101.9900, L3100.1350, L3200.1200, L503.6550, L3200.0500, L501.6710 #### [facility] [address] [place], [place], [address] RDW SD 39.8 fl Normal 35.1-43.9 [facility] Comment on above: Performed By: #### L 503.0106, L500.4050, L501.1400, L400.0001, L503.6030, L3000.0800, L100.9950, L3890.6006, L501.5101, L100.0100, L504.2610, L501.5200, L506.0200, L3410.9992, L101.9900, L3100.1350, L3200.1200, L503.6550, L3200.0500, L501.6710 #### [facility] [address] [place] [place], [address] WBC (Bld) [#/Vol] 10.6 10*3/uL Normal 4.4-11.0 [facility] Comment on above: Performed By: #### L 503.0106, L500.4050, L501.1400, L400.0001, L503.6030, L3000.0800, L100.9950, L3890.6006, L501.5101, L100.0100, L504.2610, L501.5200, L506.0200, L3410.9992, L101.9900, L3100.1350, L3200.1200, L503.6550, L3200.0500, L501.6710 #### [facility] [address] [place], [address] Carbon dioxide, total [Moles /volume] in Central venous bloodOrdered By: Red Perez on 08-17-2025 CO2 [Moles/Vol] 23.4 mmol/L 21.0-32.0 [facility] Chloride assayOrdered By: Edy Perez on 08-17-2025 Chloride [Moles/Vol] 85 mmol/L Low 98-108 [facility] Comprehensive Metabolic Prof ilon 08-17-2025 Albumin [Mass/Vol] 4.0 g/dL Normal 3.5-5.0 [facility] Comment on above: Performed By: #### L 503.0106, L500.4050, L501.1400, L400.0001, L503.6030, L3000.0800, L100.9950, L3890.6006, L501.5101, L100.0100, L504.2610, L501.5200, L506.0200, L3410.9992, L101.9900, L3100.1350, L3200.1200, L503.6550, L3200.0500, L501.6710 #### [facility] [address] [place], [address] Albumin/Globulin [Mass ratio] 1.1 {ratio} Normal 0.9-2.4 [facility] Comment on above: Performed By: #### L 503.0106, L500.4050, L501.1400, L400.0001, L503.6030, L3000.0800, L100.9950, L3890.6006, L501.5101, L100.0100, L504.2610, L501.5200, L506.0200, L3410.9992, L101.9900, L3100.1350, L3200.1200, L503.6550, L3200.0500, L501.6710 #### [facility] [address] [place], [address] ALK PHOS 138 U/L High 35-104 [facility] Comment on above: Performed By: #### L 503.0106, L500.4050, L501.1400, L400.0001, L503.6030, L3000.0800, L100.9950, L3890.6006, L501.5101, L100.0100, L504.2610, L501.5200, L506.0200, L3410.9992, L101.9900, L3100.1350, L3200.1200, L503.6550, L3200.0500, L501.6710 #### [facility] [address] [place], [address] ALT [Catalytic activity/Vol] 5 U/L Normal <=34 [facility] Comment on above: Performed By: #### L 503.0106, L500.4050, L501.1400, L400.0001, L503.6030, L3000.0800, L100.9950, L3890.6006, L501.5101, L100.0100, L504.2610, L501.5200, L506.0200, L3410.9992, L101.9900, L3100.1350, L3200.1200, L503.6550, L3200.0500, L501.6710 #### [facility] [address] [place], [place], [id number] AST [Catalytic activity/Vol] 14 U/L Normal <=31 [facility] Comment on above: Performed By: #### L 503.0106, L500.4050, L501.1400, L400.0001, L503.6030, L3000.0800, L100.9950, L3890.6006, L501.5101, L100.0100, L504.2610, L501.5200, L506.0200, L3410.9992, L101.9900, L3100.1350, L3200.1200, L503.6550, L3200.0500, L501.6710 #### [facility] [address] [place], [place], [id number] Bilirubin [Mass/Vol] 0.42 mg/dL Normal 0.00-1.30 [facility] Comment on above: Performed By: #### L 503.0106, L500.4050, L501.1400, L400.0001, L503.6030, L3000.0800, L100.9950, L3890.6006, L501.5101, L100.0100, L504.2610, L501.5200, L506.0200, L3410.9992, L101.9900, L3100.1350, L3200.1200, L503.6550, L3200.0500, L501.6710 #### [facility] [address] [place], [place], [id number] BUN/CRE 14.1 RATIO Normal 10-20 [facility] Comment on above: Performed By: #### L 503.0106, L500.4050, L501.1400, L400.0001, L503.6030, L3000.0800, L100.9950, L3890.6006, L501.5101, L100.0100, L504.2610, L501.5200, L506.0200, L3410.9992, L101.9900, L3100.1350, L3200.1200, L503.6550, L3200.0500, L501.6710 #### [facility] [address] [place], [place], [id number] (085) Calcium [Mass/Vol] 9.8 mg/dL Normal 7.6-11.0 [facility] Comment on above: Performed By: #### L 503.0106, L500.4050, L501.1400, L400.0001, L503.6030, L3000.0800, L100.9950, L3890.6006, L501.5101, L100.0100, L504.2610, L501.5200, L506.0200, L3410.9992, L101.9900, L3100.1350, L3200.1200, L503.6550, L3200.0500, L501.6710 #### [facility] [address] [place], [place], [id number] (927) Chloride [Moles/Vol] 85 mmol/L Low 98-108 [facility] Comment on above: Performed By: #### L 503.0106, L500.4050, L501.1400, L400.0001, L503.6030, L3000.0800, L100.9950, L3890.6006, L501.5101, L100.0100, L504.2610, L501.5200, L506.0200, L3410.9992, L101.9900, L3100.1350, L3200.1200, L503.6550, L3200.0500, L501.6710 #### [facility] [address] [place], [address] CO2 [Moles/Vol] 23.4 mmol/L Normal 21.0-32.0 [facility] Comment on above: Performed By: #### L 503.0106, L500.4050, L501.1400, L400.0001, L503.6030, L3000.0800, L100.9950, L3890.6006, L501.5101, L100.0100, L504.2610, L501.5200, L506.0200, L3410.9992, L101.9900, L3100.1350, L3200.1200, L503.6550, L3200.0500, L501.6710 #### [facility] [address] [place], [place], [id number] Creatinine [Mass/Vol] 1.80 mg/dL High 0.70-1.20 [facility] Comment on above: Performed By: #### L 503.0106, L500.4050, L501.1400, L400.0001, L503.6030, L3000.0800, L100.9950, L3890.6006, L501.5101, L100.0100, L504.2610, L501.5200, L506.0200, L3410.9992, L101.9900, L3100.1350, L3200.1200, L503.6550, L3200.0500, L501.6710 #### [facility] [address] [place], [place], [id number] GAP 22 High 5-15 [facility] Comment on above: Performed By: #### L 503.0106, L500.4050, L501.1400, L400.0001, L503.6030, L3000.0800, L100.9950, L3890.6006, L501.5101, L100.0100, L504.2610, L501.5200, L506.0200, L3410.9992, L101.9900, L3100.1350, L3200.1200, L503.6550, L3200.0500, L501.6710 #### [facility] [address] [place], [place], [id number] GFR/1.73 sq M.predicted among non-blacks MDRD (S/P/Bld) [Vol rate/Area] 33 mL/min/{1.73_m2} Low >60 [facility] Comment on above: Result Comment: mL/m in/1.73m2 CKD-EPI Creatinine Equation (2020) Performed By: #### L 503.0106, L500.4050, L501.1400, L400.0001, L503.6030, L3000.0800, L100.9950, L3890.6006, L501.5101, L100.0100, L504.2610, L501.5200, L506.0200, L3410.9992, L101.9900, L3100.1350, L3200.1200, L503.6550, L3200.0500, L501.6710 #### [facility] [address] [place], [place], [id number] (954) Globulin (S) [Mass/Vol] 3.8 g/dL Normal 2.2-4.2 [facility] Comment on above: Performed By: #### L 503.0106, L500.4050, L501.1400, L400.0001, L503.6030, L3000.0800, L100.9950, L3890.6006, L501.5101, L100.0100, L504.2610, L501.5200, L506.0200, L3410.9992, L101.9900, L3100.1350, L3200.1200, L503.6550, L3200.0500, L501.6710 #### [facility] [address] [place], [place], [id number] Glucose [Mass/Vol] 168 mg/dL High 70-99 [facility] Comment on above: Performed By: #### L 503.0106, L500.4050, L501.1400, L400.0001, L503.6030, L3000.0800, L100.9950, L3890.6006, L501.5101, L100.0100, L504.2610, L501.5200, L506.0200, L3410.9992, L101.9900, L3100.1350, L3200.1200, L503.6550, L3200.0500, L501.6710 #### [facility] [address] [place], [place], [phone] (450) Potassium [Moles/Vol] 3.2 mmol/L Low 3.3-5.1 [facility] Comment on above: Performed By: #### L 503.0106, L500.4050, L501.1400, L400.0001, L503.6030, L3000.0800, L100.9950, L3890.6006, L501.5101, L100.0100, L504.2610, L501.5200, L506.0200, L3410.9992, L101.9900, L3100.1350, L3200.1200, L503.6550, L3200.0500, L501.6710 #### [facility] [address] [place], [place], [id number] (628) Sodium [Moles/Vol] 131 mmol/L Low 133-145 [facility] Comment on above: Performed By: #### L 503.0106, L500.4050, L501.1400, L400.0001, L503.6030, L3000.0800, L100.9950, L3890.6006, L501.5101, L100.0100, L504.2610, L501.5200, L506.0200, L3410.9992, L101.9900, L3100.1350, L3200.1200, L503.6550, L3200.0500, L501.6710 #### [facility] [address] [place], [place], [phone] (370) T PROT 7.8 g/dL Normal 5.9-8.4 [facility] Comment on above: Performed By: #### L 503.0106, L500.4050, L501.1400, L400.0001, L503.6030, L3000.0800, L100.9950, L3890.6006, L501.5101, L100.0100, L504.2610, L501.5200, L506.0200, L3410.9992, L101.9900, L3100.1350, L3200.1200, L503.6550, L3200.0500, L501.6710 #### [facility] [address] [place], [place], [phone] Urea nitrogen [Mass/Vol] 25 mg/dL High 4-19 [facility] Comment on above: Performed By: #### L 503.0106, L500.4050, L501.1400, L400.0001, L503.6030, L3000.0800, L100.9950, L3890.6006, L501.5101, L100.0100, L504.2610, L501.5200, L506.0200, L3410.9992, L101.9900, L3100.1350, L3200.1200, L503.6550, L3200.0500, L501.6710 #### [facility] [address] [place], [place], [id number] Eosinophil percentageOrdered By: Red Perez on 08-17-2025 Eosinophils/100 WBC (Bld) 0.3 % 0-5 [facility] Erythrocyte distribution wid th ratioOrdered By: Red Perez on 08-17-2025 Erythrocyte distribution width (RBC) [Ratio] 13.3 % 11.6-14.6 [facility] Erythrocyte distribution wid th standard deviationOrdered By: Red Perez on 08-17-2025 Erythrocyte distribution width (RBC) [Ratio] 39.8 fl 35.1-43.9 [facility] Ferritinon 08-17-2025 Ferritin [Mass/Vol] 1236 ng/mL High 22-378 [facility] Comment on above: Performed By: #### L 503.0106, L500.4050, L501.1400, L400.0001, L503.6030, L3000.0800, L100.9950, L3890.6006, L501.5101, L100.0100, L504.2610, L501.5200, L506.0200, L3410.9992, L101.9900, L3100.1350, L3200.1200, L503.6550, L3200.0500, L501.6710 #### [facility] Laboratory [address] [place], [address] Free T3on 08-17-2025 Free T3 [Mass/Vol] 1.8 pg/mL Low 2.18-3.98 [facility] Comment on above: Performed By: #### L 503.0106, L500.4050, L501.1400, L400.0001, L503.6030, L3000.0800, L100.9950, L3890.6006, L501.5101, L100.0100, L504.2610, L501.5200, L506.0200, L3410.9992, L101.9900, L3100.1350, L3200.1200, L503.6550, L3200.0500, L501.6710 #### [facility] Laboratory [address] [place], [address] Free K0Mdlxnwi By: Red santos on 08-17-2025 Free T3 [Mass/Vol] 1.8 pg/mL Low 2.18-3.98 [facility] Glomerular filtration rate ( GFR) estimation/1.73 sq m using serum, plasma, or whole bOrdered By: Red Perez on 08-17-2025 GFR/1.73 sq M.predicted among non-blacks MDRD (S/P/Bld) [Vol rate/Area] 33 mL/min/{1.73_m2} Low >60 [facility] Comment on above: mL/min/1.73m2 CKD-EP I Creatinine Equation (2020) Hematocrit Auto (Bld) [Volum e fraction]Ordered By: Red Perez on 08-17-2025 Hematocrit (Bld) [Volume fraction] 29.3 % Low 37-47 [facility] Hemoglobin measurementOrdere d By: Red Perez on 08-17-2025 Hemoglobin (Bld) [Mass/Vol] 9.5 g/dL Low 12.0-15. 0 [facility] Immature granulocytes/100 WB C Auto (Bld)Ordered By: Red Perez on 08-17-2025 Immature granulocytes/100 WBC (Bld) 3.000 % High 0.0-0.9 [facility] Comment on above: IG% - Immature Granu locytes (promyelocytes, myelocytes and metamyelocytes) > 1% indicates that a LEFT SHIFT is Present. Iron measurement (mass/mass) Ordered By: Red Perez on 08-17-2025 Iron (Unsp spec) [Mass/Mass] 52 ug/dL 50-170 [facility] Iron+Iron Binding Capacityon 08-17-2025 Iron [Mass/Vol] 52 ug/dL Normal 50-170 [facility] Comment on above: Performed By: #### L 503.0106, L500.4050, L501.1400, L400.0001, L503.6030, L3000.0800, L100.9950, L3890.6006, L501.5101, L100.0100, L504.2610, L501.5200, L506.0200, L3410.9992, L101.9900, L3100.1350, L3200.1200, L503.6550, L3200.0500, L501.6710 #### [facility] Laboratory [facility] [address] [place], [place], [id number] IRON SATURATION 15.0 Normal 13-59 [facility] Comment on above: Performed By: #### L 503.0106, L500.4050, L501.1400, L400.0001, L503.6030, L3000.0800, L100.9950, L3890.6006, L501.5101, L100.0100, L504.2610, L501.5200, L506.0200, L3410.9992, L101.9900, L3100.1350, L3200.1200, L503.6550, L3200.0500, L501.6710 #### [facility] Laboratory [address] [place], [place], [id number] TIBC 345 ug/dL Normal 250-450 [facility] Comment on above: Performed By: #### L 503.0106, L500.4050, L501.1400, L400.0001, L503.6030, L3000.0800, L100.9950, L3890.6006, L501.5101, L100.0100, L504.2610, L501.5200, L506.0200, L3410.9992, L101.9900, L3100.1350, L3200.1200, L503.6550, L3200.0500, L501.6710 #### [facility] Laboratory [address] [place], [place], [id number] UIBC 293 ug/dL Normal 228-428 [facility] Comment on above: Performed By: #### L 503.0106, L500.4050, L501.1400, L400.0001, L503.6030, L3000.0800, L100.9950, L3890.6006, L501.5101, L100.0100, L504.2610, L501.5200, L506.0200, L3410.9992, L101.9900, L3100.1350, L3200.1200, L503.6550, L3200.0500, L501.6710 #### [facility] Laboratory [address] [place], [place], [id number] Laboratory - Chemistry and C hemistry - challengeOrdered By: Red Perez on 08-17-2025 AST [Catalytic activity/Vol] 14 U/L <32 [facility] MCV (mean corpuscular volume ) determinationOrdered By: Red Perez on 08-17-2025 MCV (RBC) [Entitic vol] 81.6 fL 81-99 [facility] Mean corpuscular hemoglobin (MCH) determinationOrdered By: Red Perez on 08-17-2025 MCH (RBC) [Entitic mass] 26.5 pg Low 27.0-32.0 [facility] Mean corpuscular hemoglobin concentration (MCHC) determinationOrdered By: Red Perez on 08-17-2025 MCHC (RBC) [Mass/Vol] 32.4 g/dL 32-36 [facility] Mean platelet volume determi nationOrdered By: Red Perez on 08-17-2025 Platelet mean volume (Bld) [Entitic vol] 10.0 fL 6.2-12.0 [facility] Monocyte percentageOrdered B y: Red Perez on 08-17-2025 Monocytes/100 WBC (Bld) 5.2 % 0-10 [facility] Neutrophil percentageOrdered By: Red Perez on 08-17-2025 Neutrophils/100 WBC (Bld) 81.9 % High 47-70 [facility] No Panel InformationOrdered By: Red Perez on 08-17-2025 Unsaturated Iron Binding Capacity 293 ug/dL 228-428 [facility] 14 U/L <32 [facility] 293 ug/dL 228-428 [facility] Nucleated red blood cell per centageOrdered By: Red Perez on 08-17-2025 Nucleated RBC/100 WBC (Bld) [Ratio] 0 % 0-5 [facility] Platelet countOrdered By: Edy Perez on 08-17-2025 Platelets (Bld) [#/Vol] 370 10*3/uL 150-450 [facility] Potassium measurement (mass/ volume)Ordered By: Red Perez on 08-17-2025 Potassium (Unsp spec) [Mass/Vol] 3.2 mmol/L Low 3.3-5.1 [facility] RBC Auto (Bld) [#/Vol]Ordere d By: Red Perez on 08-17-2025 RBC (Bld) [#/Vol] 3.59 10*6/uL Low 4.2-5.4 [facility] Serum creatinine measurement (mass/volume)Ordered By: Red Perez on 08-17-2025 Creatinine [Mass/Vol] 1.80 mg/dL High 0.70-1.20 [facility] Serum globulin measurementOr dered By: Red Perez on 08-17-2025 Globulin (S) [Mass/Vol] 3.8 g/dL 2.2-4.2 [facility] Serum glucose measurement (m ass/volume)Ordered By: Red Perez on 08-17-2025 Glucose [Mass/Vol] 168 mg/dL High 70-99 [facility] Serum or plasma alanine cueto otransferase (ALT) measurementOrdered By: Red Perez on 08-17-2025 ALT [Catalytic activity/Vol] 5 U/L <35 [facility] Serum or plasma albumin sandy urement (mass/volume)Ordered By: Red Perez on 08-17-2025 Albumin [Mass/Vol] 4.0 g/dL 3.5-5.0 [facility] Serum or plasma albumin/glob ulin mass ratioOrdered By: Red Perez on 08-17-2025 Albumin/Globulin [Mass ratio] 1.1 {ratio} 0.9-2.4 [facility] Serum or plasma alkaline rebecca sphatase measurementOrdered By: Red Perez on 08-17-2025 ALP [Catalytic activity/Vol] 138 U/L High 35-104 [facility] Serum or plasma calcium sandy urement (mass/volume)Ordered By: Red Perez on 08-17-2025 Calcium [Mass/Vol] 9.8 mg/dL 7.6-11.0 [facility] Serum or plasma ferritin darrel surement (mass/volume)Ordered By: Red Perez on 08-17-2025 Ferritin [Mass/Vol] 1236 ng/mL High 22-378 [facility] Serum or plasma iron saturat ion measurement (mass fraction)Ordered By: Red Perez on 08-17-2025 Iron saturation [Mass fraction] 15.0 % 13-59 [facility] Serum or plasma urea nitroge n measurement (mass/volume)Ordered By: Red Perez on 08-17-2025 Urea nitrogen [Mass/Vol] 25 mg/dL High 4-19 [facility] Sodium levelOrdered By: Red Perez on 08-17-2025 Sodium [Moles/Vol] 131 mmol/L Low 133-145 [facility] T4 Free Directon 08-17-2025 T4 FREE DIRECT 1.50 ng/dL High 0.76-1.46 [facility] Comment on above: Performed By: #### L 503.0106, L500.4050, L501.1400, L400.0001, L503.6030, L3000.0800, L100.9950, L3890.6006, L501.5101, L100.0100, L504.2610, L501.5200, L506.0200, L3410.9992, L101.9900, L3100.1350, L3200.1200, L503.6550, L3200.0500, L501.6710 #### [facility] Laboratory [address] [place], [address] T4 freeOrdered By: Red santos on 08-17-2025 Free T4 [Mass/Vol] 1.50 ng/dL High 0.76-1.46 [facility] TSH DL <= 0.005 mIU/L QnOrde red By: Red Perez on 08-17-2025 TSH Qn 3.370 uIU/mL 0.300-4.200 [facility] Thyroid Stim Hormone (TSH)on 08-17-2025 TSH 3.370 uIU/mL Normal 0.300-4.200 [facility] Comment on above: Performed By: #### L 503.0106, L500.4050, L501.1400, L400.0001, L503.6030, L3000.0800, L100.9950, L3890.6006, L501.5101, L100.0100, L504.2610, L501.5200, L506.0200, L3410.9992, L101.9900, L3100.1350, L3200.1200, L503.6550, L3200.0500, L501.6710 #### [facility] Laboratory [address] [place], [address] Total proteinOrdered By: Senait Perez on 08-17-2025 Protein [Mass/Vol] 7.8 g/dL 5.9-8.4 [facility] White blood cell (WBC) count Ordered By: Red Perez on 08-17-2025 WBC (Bld) [#/Vol] 10.6 10*3/uL 4.4-11.0 [facility] Fluoroscopy 1 Hr or Lesson 0 08-13-2025 Fluoroscopy 1 Hr or Less [facility] Imaging Services [address] [place], [place] [address] Fluoroscopy 1 Hr or Less MR#: [id number] Acct: [id number] Name: HEIDI ANDREWS Rep #: [id number] : 1970 F 55 From: Imani Mcfarland MD PCP: Dr. Red Perez MD Status: REG CLI Study: Fluoroscopy 1 Hr or Less Date of Exam: 5 Exam# [id number] Ordering Dr: Nikolai Kim MD PROCEDURE: FLUOROSCOPY [...] excursion suggestive of mild paralysis. Reading Location: [place] [address] CC: Dr. Red Perez MD; Dr. Nikolai Kim MD [employer] Control: Signed Normal [facility] Absolute lymphocyte countOrd ered By: Red Perez on 06-27-2025 Lymphocytes Auto (Unsp spec) [#/Vol] 1.04 10*3/uL 0.83-4.51 [facility] Absolute neutrophil countOrd ered By: Red Perez on 06-27-2025 Neutrophils (Bld) [#/Vol] 4.1 10*3/uL 2.0-7.7 [facility] Anion gap in Serum or Plasma Ordered By: Red Perez on 06-27-2025 Anion gap [Moles/Vol] 17 mmol/L High 5-15 [facility] Automated lymphocyte count a s percentage of total leukocytesOrdered By: Red Perez on 06-27-2025 Lymphocytes/100 WBC Auto (Unsp spec) 18.2 % Low 19-41 [facility] BUN/creatinine ratioOrdered By: Red Perez on 06-27-2025 Urea nitrogen/Creatinine [Mass ratio] 10.8 mg/mg 10- [facility] Basic Metabolic Profile (BMP )on 06-27-2025 BUN/CRE 10.8 RATIO Normal - [facility] Comment on above: Performed By: #### L 503.0106, L500.4050, L501.1400, L400.0001, L503.6030, L3000.0800, L100.9950, L3890.6006, L501.5101, L100.0100, L504.2610, L501.5200, L506.0200, L3410.9992, L101.9900, L3100.1350, L3200.1200, L503.6550, L3200.0500, L501.6710 #### [facility] Laboratory [address] [place], [place], [id number] (495) Calcium [Mass/Vol] 8.7 mg/dL Normal 7.6-11.0 [facility] Comment on above: Performed By: #### L 503.0106, L500.4050, L501.1400, L400.0001, L503.6030, L3000.0800, L100.9950, L3890.6006, L501.5101, L100.0100, L504.2610, L501.5200, L506.0200, L3410.9992, L101.9900, L3100.1350, L3200.1200, L503.6550, L3200.0500, L501.6710 #### [facility] Laboratory [address] [place], [address] Chloride [Moles/Vol] 98 mmol/L Normal 98-108 [facility] Comment on above: Performed By: #### L 503.0106, L500.4050, L501.1400, L400.0001, L503.6030, L3000.0800, L100.9950, L3890.6006, L501.5101, L100.0100, L504.2610, L501.5200, L506.0200, L3410.9992, L101.9900, L3100.1350, L3200.1200, L503.6550, L3200.0500, L501.6710 #### [facility] Laboratory [address] [place], [place], [id number] CO2 [Moles/Vol] 24.2 mmol/L Normal 21.0-32.0 [facility] Comment on above: Performed By: #### L 503.0106, L500.4050, L501.1400, L400.0001, L503.6030, L3000.0800, L100.9950, L3890.6006, L501.5101, L100.0100, L504.2610, L501.5200, L506.0200, L3410.9992, L101.9900, L3100.1350, L3200.1200, L503.6550, L3200.0500, L501.6710 #### [facility] Laboratory [address] [place], [address] Creatinine [Mass/Vol] 0.93 mg/dL Normal 0.70-1.20 [facility] Comment on above: Performed By: #### L 503.0106, L500.4050, L501.1400, L400.0001, L503.6030, L3000.0800, L100.9950, L3890.6006, L501.5101, L100.0100, L504.2610, L501.5200, L506.0200, L3410.9992, L101.9900, L3100.1350, L3200.1200, L503.6550, L3200.0500, L501.6710 #### [facility] Laboratory [address] [place], [address] GAP 17 High 5-15 [facility] Comment on above: Performed By: #### L 503.0106, L500.4050, L501.1400, L400.0001, L503.6030, L3000.0800, L100.9950, L3890.6006, L501.5101, L100.0100, L504.2610, L501.5200, L506.0200, L3410.9992, L101.9900, L3100.1350, L3200.1200, L503.6550, L3200.0500, L501.6710 #### [facility] Laboratory [address] [place], [place], [id number] GFR/1.73 sq M.predicted among non-blacks MDRD (S/P/Bld) [Vol rate/Area] 73 mL/min/{1.73_m2} Normal >60 [facility] Comment on above: Result Comment: mL/m in/1.73m2 CKD-EPI Creatinine Equation (2020) Performed By: #### L 503.0106, L500.4050, L501.1400, L400.0001, L503.6030, L3000.0800, L100.9950, L3890.6006, L501.5101, L100.0100, L504.2610, L501.5200, L506.0200, L3410.9992, L101.9900, L3100.1350, L3200.1200, L503.6550, L3200.0500, L501.6710 #### [facility] Laboratory [address] [place], [place], [id number] Glucose [Mass/Vol] 198 mg/dL High 70-99 [facility] Comment on above: Performed By: #### L 503.0106, L500.4050, L501.1400, L400.0001, L503.6030, L3000.0800, L100.9950, L3890.6006, L501.5101, L100.0100, L504.2610, L501.5200, L506.0200, L3410.9992, L101.9900, L3100.1350, L3200.1200, L503.6550, L3200.0500, L501.6710 #### [facility] Laboratory [address] [place], [place], [id number] Potassium [Moles/Vol] 3.7 mmol/L Normal 3.3-5.1 [facility] Comment on above: Performed By: #### L 503.0106, L500.4050, L501.1400, L400.0001, L503.6030, L3000.0800, L100.9950, L3890.6006, L501.5101, L100.0100, L504.2610, L501.5200, L506.0200, L3410.9992, L101.9900, L3100.1350, L3200.1200, L503.6550, L3200.0500, L501.6710 #### [facility] Laboratory [address] [place], [address] Sodium [Moles/Vol] 139 mmol/L Normal 133-145 [facility] Comment on above: Performed By: #### L 503.0106, L500.4050, L501.1400, L400.0001, L503.6030, L3000.0800, L100.9950, L3890.6006, L501.5101, L100.0100, L504.2610, L501.5200, L506.0200, L3410.9992, L101.9900, L3100.1350, L3200.1200, L503.6550, L3200.0500, L501.6710 #### [facility] Laboratory [address] [place], [address] Urea nitrogen [Mass/Vol] 10 mg/dL Normal 4-19 [facility] Comment on above: Performed By: #### L 503.0106, L500.4050, L501.1400, L400.0001, L503.6030, L3000.0800, L100.9950, L3890.6006, L501.5101, L100.0100, L504.2610, L501.5200, L506.0200, L3410.9992, L101.9900, L3100.1350, L3200.1200, L503.6550, L3200.0500, L501.6710 #### [facility] Laboratory [address] [place], [place], [id number] Basophil percentageOrdered B y: Red Perez on 06-27-2025 Basophils/100 WBC (Bld) 0.7 % 0-1 [facility] CBC W/Diff, Automatedon 06-15 Absolute Lymph 1.04 X10 3/uL Normal 0.83-4.51 [facility] Comment on above: Performed By: #### L 503.0106, L500.4050, L501.1400, L400.0001, L503.6030, L3000.0800, L100.9950, L3890.6006, L501.5101, L100.0100, L504.2610, L501.5200, L506.0200, L3410.9992, L101.9900, L3100.1350, L3200.1200, L503.6550, L3200.0500, L501.6710 #### [facility] Laboratory [address] [place], [place], [id number] Absolute Neut 4.1 X10 3/uL Normal 2.0-7.7 [facility] Comment on above: Performed By: #### L 503.0106, L500.4050, L501.1400, L400.0001, L503.6030, L3000.0800, L100.9950, L3890.6006, L501.5101, L100.0100, L504.2610, L501.5200, L506.0200, L3410.9992, L101.9900, L3100.1350, L3200.1200, L503.6550, L3200.0500, L501.6710 #### [facility] Laboratory [address] [place], [place], [id number] (270) Basophils/100 WBC (Bld) 0.7 % Normal 0-1 [facility] Comment on above: Performed By: #### L 503.0106, L500.4050, L501.1400, L400.0001, L503.6030, L3000.0800, L100.9950, L3890.6006, L501.5101, L100.0100, L504.2610, L501.5200, L506.0200, L3410.9992, L101.9900, L3100.1350, L3200.1200, L503.6550, L3200.0500, L501.6710 #### [facility] Laboratory [address] [place], [place], [id number] (088) Eosinophils/100 WBC (Bld) 3.8 % Normal 0-5 [facility] Comment on above: Performed By: #### L 503.0106, L500.4050, L501.1400, L400.0001, L503.6030, L3000.0800, L100.9950, L3890.6006, L501.5101, L100.0100, L504.2610, L501.5200, L506.0200, L3410.9992, L101.9900, L3100.1350, L3200.1200, L503.6550, L3200.0500, L501.6710 #### [facility] Laboratory [address] [place], [place], [id number] (896) Erythrocyte distribution width (RBC) [Ratio] 13.9 % Normal 11.6-14.6 [facility] Comment on above: Performed By: #### L 503.0106, L500.4050, L501.1400, L400.0001, L503.6030, L3000.0800, L100.9950, L3890.6006, L501.5101, L100.0100, L504.2610, L501.5200, L506.0200, L3410.9992, L101.9900, L3100.1350, L3200.1200, L503.6550, L3200.0500, L501.6710 #### [facility] Laboratory [address] [place], [address] Hematocrit (Bld) [Volume fraction] 33.6 % Low 37-47 [facility] Comment on above: Performed By: #### L 503.0106, L500.4050, L501.1400, L400.0001, L503.6030, L3000.0800, L100.9950, L3890.6006, L501.5101, L100.0100, L504.2610, L501.5200, L506.0200, L3410.9992, L101.9900, L3100.1350, L3200.1200, L503.6550, L3200.0500, L501.6710 #### [facility] Laboratory [address] [place], [address] Hemoglobin (Bld) [Mass/Vol] 10.7 g/dL Low 12.0-15. 0 [facility] Comment on above: Performed By: #### L 503.0106, L500.4050, L501.1400, L400.0001, L503.6030, L3000.0800, L100.9950, L3890.6006, L501.5101, L100.0100, L504.2610, L501.5200, L506.0200, L3410.9992, L101.9900, L3100.1350, L3200.1200, L503.6550, L3200.0500, L501.6710 #### [facility] Laboratory [address] [place], [address] IG% 1.000 High 0.0-0.9 [facility] Comment on above: Result Comment: IG% - Immature Granulocytes (promyelocytes, myelocytes and metamyelocytes) > 1% indicates that a LEFT SHIFT is Present. Performed By: #### L 503.0106, L500.4050, L501.1400, L400.0001, L503.6030, L3000.0800, L100.9950, L3890.6006, L501.5101, L100.0100, L504.2610, L501.5200, L506.0200, L3410.9992, L101.9900, L3100.1350, L3200.1200, L503.6550, L3200.0500, L501.6710 #### [facility] Laboratory [address] [place], [address] Lymphocytes/100 WBC (Bld) 18.2 % Low 19-41 [facility] Comment on above: Performed By: #### L 503.0106, L500.4050, L501.1400, L400.0001, L503.6030, L3000.0800, L100.9950, L3890.6006, L501.5101, L100.0100, L504.2610, L501.5200, L506.0200, L3410.9992, L101.9900, L3100.1350, L3200.1200, L503.6550, L3200.0500, L501.6710 #### [facility] Laboratory [address] [place], [address] MCH (RBC) [Entitic mass] 27.9 pg Normal 27.0-32.0 [facility] Comment on above: Performed By: #### L 503.0106, L500.4050, L501.1400, L400.0001, L503.6030, L3000.0800, L100.9950, L3890.6006, L501.5101, L100.0100, L504.2610, L501.5200, L506.0200, L3410.9992, L101.9900, L3100.1350, L3200.1200, L503.6550, L3200.0500, L501.6710 #### [facility] Laboratory [address] [place], [address] MCHC (RBC) [Mass/Vol] 31.8 g/dL Low 32-36 [facility] Comment on above: Performed By: #### L 503.0106, L500.4050, L501.1400, L400.0001, L503.6030, L3000.0800, L100.9950, L3890.6006, L501.5101, L100.0100, L504.2610, L501.5200, L506.0200, L3410.9992, L101.9900, L3100.1350, L3200.1200, L503.6550, L3200.0500, L501.6710 #### [facility] Laboratory [address] [place], [place], [id number] [phone] MCV (RBC) [Entitic vol] 87.5 fL Normal 81-99 [facility] Comment on above: Performed By: #### L 503.0106, L500.4050, L501.1400, L400.0001, L503.6030, L3000.0800, L100.9950, L3890.6006, L501.5101, L100.0100, L504.2610, L501.5200, L506.0200, L3410.9992, L101.9900, L3100.1350, L3200.1200, L503.6550, L3200.0500, L501.6710 #### [facility] Laboratory [address] [place], [place], [id number] [phone] Monocytes/100 WBC (Bld) 5.2 % Normal 0-10 [facility] Comment on above: Performed By: #### L 503.0106, L500.4050, L501.1400, L400.0001, L503.6030, L3000.0800, L100.9950, L3890.6006, L501.5101, L100.0100, L504.2610, L501.5200, L506.0200, L3410.9992, L101.9900, L3100.1350, L3200.1200, L503.6550, L3200.0500, L501.6710 #### [facility] [address] [facility] [place], [place], [phone] (176) Neutrophils/100 WBC (Bld) 71.1 % High 47-70 [facility] Comment on above: Performed By: #### L 503.0106, L500.4050, L501.1400, L400.0001, L503.6030, L3000.0800, L100.9950, L3890.6006, L501.5101, L100.0100, L504.2610, L501.5200, L506.0200, L3410.9992, L101.9900, L3100.1350, L3200.1200, L503.6550, L3200.0500, L501.6710 #### [facility] [address] [facility] [place], [place], [phone] (362) Nucleated RBC (Bld) [#/Vol] 0 10*3/uL Normal 0-5 [facility] Comment on above: Performed By: #### L 503.0106, L500.4050, L501.1400, L400.0001, L503.6030, L3000.0800, L100.9950, L3890.6006, L501.5101, L100.0100, L504.2610, L501.5200, L506.0200, L3410.9992, L101.9900, L3100.1350, L3200.1200, L503.6550, L3200.0500, L501.6710 #### [facility] [address] [facility] [place], [phone] (541) Platelet mean volume (Bld) [Entitic vol] 9.9 fL Normal 6.2-12.0 [facility] Comment on above: Performed By: #### L 503.0106, L500.4050, L501.1400, L400.0001, L503.6030, L3000.0800, L100.9950, L3890.6006, L501.5101, L100.0100, L504.2610, L501.5200, L506.0200, L3410.9992, L101.9900, L3100.1350, L3200.1200, L503.6550, L3200.0500, L501.6710 #### [facility] [address] [place], [place], [phone] (997) Platelets (Bld) [#/Vol] 244 10*3/uL Normal 150-450 [facility] Comment on above: Performed By: #### L 503.0106, L500.4050, L501.1400, L400.0001, L503.6030, L3000.0800, L100.9950, L3890.6006, L501.5101, L100.0100, L504.2610, L501.5200, L506.0200, L3410.9992, L101.9900, L3100.1350, L3200.1200, L503.6550, L3200.0500, L501.6710 #### [facility] [address] [place], [place], [id number] [phone] RBC (Bld) [#/Vol] 3.84 10*6/uL Low 4.2-5.4 [facility] Comment on above: Performed By: #### L 503.0106, L500.4050, L501.1400, L400.0001, L503.6030, L3000.0800, L100.9950, L3890.6006, L501.5101, L100.0100, L504.2610, L501.5200, L506.0200, L3410.9992, L101.9900, L3100.1350, L3200.1200, L503.6550, L3200.0500, L501.6710 #### [facility] [address] [place], [place], [id number] RDW SD 43.7 fl Normal 35.1-43.9 [facility] Comment on above: Performed By: #### L 503.0106, L500.4050, L501.1400, L400.0001, L503.6030, L3000.0800, L100.9950, L3890.6006, L501.5101, L100.0100, L504.2610, L501.5200, L506.0200, L3410.9992, L101.9900, L3100.1350, L3200.1200, L503.6550, L3200.0500, L501.6710 #### [facility] [address] [place], [address] WBC (Bld) [#/Vol] 5.7 10*3/uL Normal 4.4-11.0 [facility] Comment on above: Performed By: #### L 503.0106, L500.4050, L501.1400, L400.0001, L503.6030, L3000.0800, L100.9950, L3890.6006, L501.5101, L100.0100, L504.2610, L501.5200, L506.0200, L3410.9992, L101.9900, L3100.1350, L3200.1200, L503.6550, L3200.0500, L501.6710 #### [facility] [address] [place], [place], [id number] Calculated very low density lipoprotein (VLDL) cholesterol measurementOrdered By: Red Perez on 06-27-2025 Calculated very low density lipoprotein (VLDL) cholesterol measurement 45 mg/dL High 5-40 [facility] Carbon dioxide, total [Moles /volume] in Central venous bloodOrdered By: Red Perez on 06-27-2025 CO2 [Moles/Vol] 24.2 mmol/L 21.0-32.0 [facility] Chloride assayOrdered By: Edy Perez on 06-27-2025 Chloride [Moles/Vol] 98 mmol/L 98-[address] [facility] Eosinophil percentageOrdered By: Red Perez on 06-27-2025 Eosinophils/100 WBC (Bld) 3.8 % 0-5 [facility] Erythrocyte distribution wid th ratioOrdered By: Red Perez on 06-27-2025 Erythrocyte distribution width (RBC) [Ratio] 13.9 % 11.6-14.6 [facility] Erythrocyte distribution wid th standard deviationOrdered By: Red Perez on 06-27-2025 Erythrocyte distribution width (RBC) [Ratio] 43.7 fl 35.1-43.9 [facility] Ferritinon 06-27-2025 Ferritin [Mass/Vol] 108 ng/mL Normal 22-378 [facility] Comment on above: Performed By: #### L 503.0106, L500.4050, L501.1400, L400.0001, L503.6030, L3000.0800, L100.9950, L3890.6006, L501.5101, L100.0100, L504.2610, L501.5200, L506.0200, L3410.9992, L101.9900, L3100.1350, L3200.1200, L503.6550, L3200.0500, L501.6710 #### [facility] [address] [place], [address] Glomerular filtration rate ( GFR) estimation/1.73 sq m using serum, plasma, or whole bOrdered By: Red Perez on 06-27-2025 GFR/1.73 sq M.predicted among non-blacks MDRD (S/P/Bld) [Vol rate/Area] 73 mL/min/{1.73_m2} >60 [facility] Comment on above: mL/min/1.73m2 CKD-EP I Creatinine Equation (2020) Hematocrit Auto (Bld) [Volum e fraction]Ordered By: Red Perez on 06-27-2025 Hematocrit (Bld) [Volume fraction] 33.6 % Low 37-47 [facility] Hemoglobin measurementOrdere d By: Red Perez on 06-27-2025 Hemoglobin (Bld) [Mass/Vol] 10.7 g/dL Low 12.0-15. 0 [facility] Immature granulocytes/100 WB C Auto (Bld)Ordered By: Red Perez on 06-27-2025 Immature granulocytes/100 WBC (Bld) 1.000 % High 0.0-0.9 [facility] Comment on above: IG% - Immature Granu locytes (promyelocytes, myelocytes and metamyelocytes) > 1% indicates that a LEFT SHIFT is Present. Iron measurement (mass/mass) Ordered By: Red Perez on 06-27-2025 Iron (Unsp spec) [Mass/Mass] 53 ug/dL 50-170 [facility] Iron+Iron Binding Capacityon 06-27-2025 Iron [Mass/Vol] 53 ug/dL Normal 50-170 [facility] Comment on above: Performed By: #### L 503.0106, L500.4050, L501.1400, L400.0001, L503.6030, L3000.0800, L100.9950, L3890.6006, L501.5101, L100.0100, L504.2610, L501.5200, L506.0200, L3410.9992, L101.9900, L3100.1350, L3200.1200, L503.6550, L3200.0500, L501.6710 #### [facility] [address] [place], [address] IRON SATURATION 14.0 Normal 13-59 [facility] Comment on above: Performed By: #### L 503.0106, L500.4050, L501.1400, L400.0001, L503.6030, L3000.0800, L100.9950, L3890.6006, L501.5101, L100.0100, L504.2610, L501.5200, L506.0200, L3410.9992, L101.9900, L3100.1350, L3200.1200, L503.6550, L3200.0500, L501.6710 #### [facility] [address] [place], [address] TIBC 377 ug/dL Normal 250-450 [facility] Comment on above: Performed By: #### L 503.0106, L500.4050, L501.1400, L400.0001, L503.6030, L3000.0800, L100.9950, L3890.6006, L501.5101, L100.0100, L504.2610, L501.5200, L506.0200, L3410.9992, L101.9900, L3100.1350, L3200.1200, L503.6550, L3200.0500, L501.6710 #### [facility] [address] [place], [place], [id number] UIBC 324 ug/dL Normal 228-428 [facility] Comment on above: Performed By: #### L 503.0106, L500.4050, L501.1400, L400.0001, L503.6030, L3000.0800, L100.9950, L3890.6006, L501.5101, L100.0100, L504.2610, L501.5200, L506.0200, L3410.9992, L101.9900, L3100.1350, L3200.1200, L503.6550, L3200.0500, L501.6710 #### [facility] [address] [place], [place], [id number] LDL calc ser/plasOrdered By: Red Perez on 06-27-2025 Cholesterol in LDL [Mass/Vol] 102 mg/dL [facility] Comment on above: Aunqaqwehu=415-166 m g/dL & Higher Dmuz=262 mg/dL or greaterFriedwald Equation for LDL-C Lipid Profileon 06-27-2025 CHOL:HDL 5.31 Normal [facility] Comment on above: Performed By: #### L 503.0106, L500.4050, L501.1400, L400.0001, L503.6030, L3000.0800, L100.9950, L3890.6006, L501.5101, L100.0100, L504.2610, L501.5200, L506.0200, L3410.9992, L101.9900, L3100.1350, L3200.1200, L503.6550, L3200.0500, L501.6710 #### [facility] [address] [facility] [place], [address] Cholesterol [Mass/Vol] 181 mg/dL Normal <=200 [facility] Comment on above: Result Comment: Chol esterol level, Desirable <200 mg/dL Borderline high cholesterol 200-239 mg/dL High cholesterol >=240 mg/dL Recommendations of the NCEP Adult Treatment Panel for the following risk-cutoff thresholds for the [place] population. Performed By: #### L 503.0106, L500.4050, L501.1400, L400.0001, L503.6030, L3000.0800, L100.9950, L3890.6006, L501.5101, L100.0100, L504.2610, L501.5200, L506.0200, L3410.9992, L101.9900, L3100.1350, L3200.1200, L503.6550, L3200.0500, L501.6710 #### [facility] [address] [facility] [place], [place], [id number] Cholesterol in HDL [Mass/Vol] 34 mg/dL Low [facility] Comment on above: Result Comment: Mayda onal Cholesterol Education Program (NCEP) guidelines: <40 mg/dL: Low HDL-cholesterol (major risk factor for CHD) >= 60 mg/dL: High HDL-cholesterol (negative risk factor for CHD) HDL-cholesterol is affected by a number of factors, e.g. smoking, exercise, hormones, sex and age. Performed By: #### L 503.0106, L500.4050, L501.1400, L400.0001, L503.6030, L3000.0800, L100.9950, L3890.6006, L501.5101, L100.0100, L504.2610, L501.5200, L506.0200, L3410.9992, L101.9900, L3100.1350, L3200.1200, L503.6550, L3200.0500, L501.6710 #### [facility] [address] [facility] [place], [place], [id number] (927) Cholesterol in LDL [Mass/Vol] 102 mg/dL Normal [facility] Comment on above: Result Comment: Bord thgfhx=561-989 mg/dL Higher Zsra=102 mg/dL or greater Friedwald Equation for LDL-C Performed By: #### L 503.0106, L500.4050, L501.1400, L400.0001, L503.6030, L3000.0800, L100.9950, L3890.6006, L501.5101, L100.0100, L504.2610, L501.5200, L506.0200, L3410.9992, L101.9900, L3100.1350, L3200.1200, L503.6550, L3200.0500, L501.6710 #### [facility] [address] [place], [address] ([address] Cholesterol in VLDL [Mass/Vol] 45 mg/dL High 5-40 [facility] Comment on above: Performed By: #### L 503.0106, L500.4050, L501.1400, L400.0001, L503.6030, L3000.0800, L100.9950, L3890.6006, L501.5101, L100.0100, L504.2610, L501.5200, L506.0200, L3410.9992, L101.9900, L3100.1350, L3200.1200, L503.6550, L3200.0500, L501.6710 #### [facility] [address] [facility] [place], [address] Triglyceride [Mass/Vol] 224 mg/dL High [facility] Comment on above: Result Comment: The drugs N-Acetylcysteine and Metamizole may falsely depress this assay. Normal range: <150 mg/dL Borderline High: 150-199 mg/dL High: 200-499 mg/dL Very High: >500 mg/dL Performed By: #### L 503.0106, L500.4050, L501.1400, L400.0001, L503.6030, L3000.0800, L100.9950, L3890.6006, L501.5101, L100.0100, L504.2610, L501.5200, L506.0200, L3410.9992, L101.9900, L3100.1350, L3200.1200, L503.6550, L3200.0500, L501.6710 #### [facility] [address] [place], [place], [id number] MCV (mean corpuscular volume ) determinationOrdered By: Red Perez on 06-27-2025 MCV (RBC) [Entitic vol] 87.5 fL 81-99 [facility] Mean corpuscular hemoglobin (MCH) determinationOrdered By: Red Perez on 06-27-2025 MCH (RBC) [Entitic mass] 27.9 pg 27.0-32.0 [facility] Mean corpuscular hemoglobin concentration (MCHC) determinationOrdered By: Red Perez on 06-27-2025 MCHC (RBC) [Mass/Vol] 31.8 g/dL Low 32-36 [facility] Mean platelet volume determi nationOrdered By: Red Perez on 06-27-2025 Platelet mean volume (Bld) [Entitic vol] 9.9 fL 6.2-12.0 [facility] Microalb:Creat Ratio,Random URon 06-27-2025 Creatinine [Mass/Vol] 91.20 mg/dL Normal 28.00-217.00 [facility] Comment on above: Performed By: #### L 503.0106, L500.4050, L501.1400, L400.0001, L503.6030, L3000.0800, L100.9950, L3890.6006, L501.5101, L100.0100, L504.2610, L501.5200, L506.0200, L3410.9992, L101.9900, L3100.1350, L3200.1200, L503.6550, L3200.0500, L501.6710 #### [facility] [address] [facility] [place], [place], [id number] MALB:CREAT UNABLE TO CALCULATE Normal <30 mg/g CRE [facility] Comment on above: Performed By: #### L 503.0106, L500.4050, L501.1400, L400.0001, L503.6030, L3000.0800, L100.9950, L3890.6006, L501.5101, L100.0100, L504.2610, L501.5200, L506.0200, L3410.9992, L101.9900, L3100.1350, L3200.1200, L503.6550, L3200.0500, L501.6710 #### [facility] [address] [place] [place], [address] MICROALBUMIN,UR < 12.0 Normal <20 mg/L [facility] Comment on above: Performed By: #### L 503.0106, L500.4050, L501.1400, L400.0001, L503.6030, L3000.0800, L100.9950, L3890.6006, L501.5101, L100.0100, L504.2610, L501.5200, L506.0200, L3410.9992, L101.9900, L3100.1350, L3200.1200, L503.6550, L3200.0500, L501.6710 #### [facility] [address] [place], [address] Microalbumin/creat ratio urO rdered By: Red Perez on 06-27-2025 Urine microalbumin/creatinine ratio measurement UNABLE TO CALCULATE mg/g CRE <30 [facility] Monocyte percentageOrdered B y: Red Perez on 06-27-2025 Monocytes/100 WBC (Bld) 5.2 % 0-10 [facility] Neutrophil percentageOrdered By: Red Perez on 06-27-2025 Neutrophils/100 WBC (Bld) 71.1 % High 47-70 [facility] No Panel InformationOrdered By: Red Perez on 06-27-2025 Unsaturated Iron Binding Capacity 324 ug/dL 228-428 [facility] 324 ug/dL 228-428 [facility] Nucleated red blood cell per centageOrdered By: Red Perez on 06-27-2025 Nucleated RBC/100 WBC (Bld) [Ratio] 0 % 0-5 [facility] Platelet countOrdered By: Edy Perez on 06-27-2025 Platelets (Bld) [#/Vol] 244 10*3/uL 150-450 [facility] Potassium measurement (mass/ volume)Ordered By: Red Perez on 06-27-2025 Potassium (Unsp spec) [Mass/Vol] 3.7 mmol/L 3.3-5.1 [facility] RBC Auto (Bld) [#/Vol]Ordere d By: Red Perez on 06-27-2025 RBC (Bld) [#/Vol] 3.84 10*6/uL Low 4.2-5.4 [facility] Random urine creatinine sandy urement (mass/volume)Ordered By: Red Perez on 06-27-2025 Creatinine Unsp time (U) [Mass/Vol] 91.20 mg/dL 28.00-217.00 [facility] Screening total cholesterol/ high density lipoprotein (HDL) cholesterol ratioOrdered By: Red Perez on 06-27-2025 Cholesterol.total/Cholester ol in HDL [Mass ratio] 5.31 {ratio} [facility] Serum creatinine measurement (mass/volume)Ordered By: Red Perez on 06-27-2025 Creatinine [Mass/Vol] 0.93 mg/dL 0.70-1.20 [facility] Serum glucose measurement (m ass/volume)Ordered By: Red Perez on 06-27-2025 Glucose [Mass/Vol] 198 mg/dL High 70-99 [facility] Serum or plasma calcium sandy urement (mass/volume)Ordered By: Red Perez on 06-27-2025 Calcium [Mass/Vol] 8.7 mg/dL 7.6-11.0 [facility] Serum or plasma cholesterol in HDL measurement (mass/volume)Ordered By: Red Perez on 06-27-2025 Cholesterol in HDL [Mass/Vol] 34 mg/dL Low >40 [facility] Comment on above: National Cholesterol Education Program (NCEP) guidelines:<40 mg/dL: Low HDL-cholesterol (major risk factor for CHD)>= 60 mg/dL: High HDL-cholesterol (negative risk factor for CHD)HDL-cholesterol is affected by a number of factors, e.g. smoking, exercise, hormones, sex and age. Serum or plasma cholesterol measurement (mass/volume)Ordered By: Red Perez on 06-27-2025 Cholesterol [Mass/Vol] 181 mg/dL <201 [facility] Comment on above: Cholesterol level, D esirable <200 mg/dLBorderline high cholesterol 200-239 mg/dLHigh cholesterol >=240 mg/dLRecommendations of the NCEP Adult Treatment Panel for the following risk-cutoff thresholds for the [place] population. Serum or plasma ferritin darrel surement (mass/volume)Ordered By: Red Perez on 06-27-2025 Ferritin [Mass/Vol] 108 ng/mL 22-378 [facility] Serum or plasma iron saturat ion measurement (mass fraction)Ordered By: Red Perez on 06-27-2025 Iron saturation [Mass fraction] 14.0 % 13-59 [facility] Serum or plasma urea nitroge n measurement (mass/volume)Ordered By: Red Perez on 06-27-2025 Urea nitrogen [Mass/Vol] 10 mg/dL 4-19 [facility] Sodium levelOrdered By: Red Perez on 06-27-2025 Sodium [Moles/Vol] 139 mmol/L 133-145 [facility] Triglycerides measurementOrd ered By: Red Perez on 06-27-2025 Triglyceride [Mass/Vol] 224 mg/dL High <199 [facility] Comment on above: The drugs N-Acetylcy steine and Metamizole may falsely depress this assay. Normal range: <150 mg/dLBorderline High: 150-199 mg/dLHigh: 200-499 mg/dLVery High: >500 mg/dL Urine albumin measurement wi th detection limit of 20 mg/L or less (mass/volume)Ordered By: Red Perez on 06-27-2025 Albumin DL <= 20 mg/L (U) [Mass/Vol] < 12.0 mg/L <20 mg/L [facility] White blood cell (WBC) count Ordered By: Red Perez on 06-27-2025 WBC (Bld) [#/Vol] 5.7 10*3/uL 4.4-11.0 [facility] Chest PA and Lateralon 06-15 Chest PA and Lateral [facility] Services [address] [place], [place] [address] Chest PA and Lateral MR#: [id number] Acct: [id number] Name: HEIDI ANDREWS Rep #: [id number] : 1970 F 55 From: Magdy Bowling PCP: Dr. Red Perez MD Status: REG CLI Study: Chest PA and Lateral Date of Exam: 06/15/25 Exam# [id number] Ordering Dr: Nikolai Kim MD PROCEDURE: CHEST [...] evidence of acute cardiopulmonary disease. Reading Location: [place] [address] CC: Dr. Red Perez MD; Dr. Nikolai Kim MD [employer] Control: Signed Normal [facility] Absolute lymphocyte countOrd ered By: Glen Chapman on 06-04-2025 Lymphocytes Auto (Unsp spec) [#/Vol] 1.05 10*3/uL 0.83-4.51 [facility] Absolute neutrophil countOrd ered By: Glen Chapman on 06-04-2025 Neutrophils (Bld) [#/Vol] 4.4 10*3/uL 2.0-7.7 [facility] Anion gap in Serum or Plasma Ordered By: Glen Statonrito on 06-04-2025 Anion gap [Moles/Vol] 15 mmol/L 5-15 [facility] Automated lymphocyte count a s percentage of total leukocytesOrdered By: Glen Statonrito on 06-04-2025 Lymphocytes/100 WBC Auto (Unsp spec) 17.1 % Low 19-41 [facility] BUN/creatinine ratioOrdered By: Glen [facility] on 06-04-2025 Urea nitrogen/Creatinine [Mass ratio] 10.3 mg/mg 10-20 [facility] Basophil percentageOrdered B y: Glen Statonrito on 06-04-2025 Basophils/100 WBC (Bld) 0.5 % 0-1 [facility] Bilirubin, totalOrdered By: Glen Staton on 06-04-2025 Bilirubin [Mass/Vol] 0.26 mg/dL 0.00-1.30 [facility] CBC W/Diff, Automatedon 05-16 Absolute Lymph 1.05 X10 3/uL Normal 0.83-4.51 [facility] Comment on above: Performed By: #### L 503.0106, L500.4050, L501.1400, L400.0001, L503.6030, L3000.0800, L100.9950, L3890.6006, L501.5101, L100.0100, L504.2610, L501.5200, L506.0200, L3410.9992, L101.9900, L3100.1350, L3200.1200, L503.6550, L3200.0500, L501.6710 #### [facility] [address] [place] [address]. [place], [place], [id number] Absolute Neut 4.4 X10 3/uL Normal 2.0-7.7 [facility] Comment on above: Performed By: #### L 503.0106, L500.4050, L501.1400, L400.0001, L503.6030, L3000.0800, L100.9950, L3890.6006, L501.5101, L100.0100, L504.2610, L501.5200, L506.0200, L3410.9992, L101.9900, L3100.1350, L3200.1200, L503.6550, L3200.0500, L501.6710 #### [facility] [address] [facility] [address] [place], [place], [id number] ([address] Basophils/100 WBC (Bld) 0.5 % Normal 0-1 [facility] Comment on above: Performed By: #### L 503.0106, L500.4050, L501.1400, L400.0001, L503.6030, L3000.0800, L100.9950, L3890.6006, L501.5101, L100.0100, L504.2610, L501.5200, L506.0200, L3410.9992, L101.9900, L3100.1350, L3200.1200, L503.6550, L3200.0500, L501.6710 #### [facility] [address] [facility] [place], [address] (332 Eosinophils/100 WBC (Bld) 4.7 % Normal 0-5 [facility] Comment on above: Performed By: #### L 503.0106, L500.4050, L501.1400, L400.0001, L503.6030, L3000.0800, L100.9950, L3890.6006, L501.5101, L100.0100, L504.2610, L501.5200, L506.0200, L3410.9992, L101.9900, L3100.1350, L3200.1200, L503.6550, L3200.0500, L501.6710 #### [facility] [address] [facility] [place], [address] (048) Erythrocyte distribution width (RBC) [Ratio] 15.2 % High 11.6-14.6 [facility] Comment on above: Performed By: #### L 503.0106, L500.4050, L501.1400, L400.0001, L503.6030, L3000.0800, L100.9950, L3890.6006, L501.5101, L100.0100, L504.2610, L501.5200, L506.0200, L3410.9992, L101.9900, L3100.1350, L3200.1200, L503.6550, L3200.0500, L501.6710 #### [facility] [address] [place], [address] Hematocrit (Bld) [Volume fraction] 35.0 % Low 37-47 [facility] Comment on above: Performed By: #### L 503.0106, L500.4050, L501.1400, L400.0001, L503.6030, L3000.0800, L100.9950, L3890.6006, L501.5101, L100.0100, L504.2610, L501.5200, L506.0200, L3410.9992, L101.9900, L3100.1350, L3200.1200, L503.6550, L3200.0500, L501.6710 #### [facility] [address] [place], [address] Hemoglobin (Bld) [Mass/Vol] 11.3 g/dL Low 12.0-15. 0 [facility] Comment on above: Performed By: #### L 503.0106, L500.4050, L501.1400, L400.0001, L503.6030, L3000.0800, L100.9950, L3890.6006, L501.5101, L100.0100, L504.2610, L501.5200, L506.0200, L3410.9992, L101.9900, L3100.1350, L3200.1200, L503.6550, L3200.0500, L501.6710 #### [facility] [address] [place], [address] IG% 1.300 High 0.0-0.9 [facility] Comment on above: Result Comment: IG% - Immature Granulocytes (promyelocytes, myelocytes and metamyelocytes) > 1% indicates that a LEFT SHIFT is Present. Performed By: #### L 503.0106, L500.4050, L501.1400, L400.0001, L503.6030, L3000.0800, L100.9950, L3890.6006, L501.5101, L100.0100, L504.2610, L501.5200, L506.0200, L3410.9992, L101.9900, L3100.1350, L3200.1200, L503.6550, L3200.0500, L501.6710 #### [facility] [address] [facility] [place], [place], [id number] Lymphocytes/100 WBC (Bld) 17.1 % Low 19-41 [facility] Comment on above: Performed By: #### L 503.0106, L500.4050, L501.1400, L400.0001, L503.6030, L3000.0800, L100.9950, L3890.6006, L501.5101, L100.0100, L504.2610, L501.5200, L506.0200, L3410.9992, L101.9900, L3100.1350, L3200.1200, L503.6550, L3200.0500, L501.6710 #### [facility] [address] [place], [place], [address] MCH (RBC) [Entitic mass] 28.0 pg Normal 27.0-32.0 [facility] Comment on above: Performed By: #### L 503.0106, L500.4050, L501.1400, L400.0001, L503.6030, L3000.0800, L100.9950, L3890.6006, L501.5101, L100.0100, L504.2610, L501.5200, L506.0200, L3410.9992, L101.9900, L3100.1350, L3200.1200, L503.6550, L3200.0500, L501.6710 #### [facility] [address] [place], [address] MCHC (RBC) [Mass/Vol] 32.3 g/dL Normal 32-36 [facility] Comment on above: Performed By: #### L 503.0106, L500.4050, L501.1400, L400.0001, L503.6030, L3000.0800, L100.9950, L3890.6006, L501.5101, L100.0100, L504.2610, L501.5200, L506.0200, L3410.9992, L101.9900, L3100.1350, L3200.1200, L503.6550, L3200.0500, L501.6710 #### [facility] [address] [place], [address] MCV (RBC) [Entitic vol] 86.6 fL Normal 81-99 [facility] Comment on above: Performed By: #### L 503.0106, L500.4050, L501.1400, L400.0001, L503.6030, L3000.0800, L100.9950, L3890.6006, L501.5101, L100.0100, L504.2610, L501.5200, L506.0200, L3410.9992, L101.9900, L3100.1350, L3200.1200, L503.6550, L3200.0500, L501.6710 #### [facility] [address] [place], [address] Monocytes/100 WBC (Bld) 5.5 % Normal 0-10 [facility] Comment on above: Performed By: #### L 503.0106, L500.4050, L501.1400, L400.0001, L503.6030, L3000.0800, L100.9950, L3890.6006, L501.5101, L100.0100, L504.2610, L501.5200, L506.0200, L3410.9992, L101.9900, L3100.1350, L3200.1200, L503.6550, L3200.0500, L501.6710 #### [facility] [address] [place], [place], [id number] (736) Neutrophils/100 WBC (Bld) 70.9 % High 47-70 [facility] Comment on above: Performed By: #### L 503.0106, L500.4050, L501.1400, L400.0001, L503.6030, L3000.0800, L100.9950, L3890.6006, L501.5101, L100.0100, L504.2610, L501.5200, L506.0200, L3410.9992, L101.9900, L3100.1350, L3200.1200, L503.6550, L3200.0500, L501.6710 #### [facility] [address] [place], [address] (111) Nucleated RBC (Bld) [#/Vol] 0 10*3/uL Normal 0-5 [facility] Comment on above: Performed By: #### L 503.0106, L500.4050, L501.1400, L400.0001, L503.6030, L3000.0800, L100.9950, L3890.6006, L501.5101, L100.0100, L504.2610, L501.5200, L506.0200, L3410.9992, L101.9900, L3100.1350, L3200.1200, L503.6550, L3200.0500, L501.6710 #### [facility] [address] [place], [address] Platelet mean volume (Bld) [Entitic vol] 9.6 fL Normal 6.2-12.0 [facility] Comment on above: Performed By: #### L 503.0106, L500.4050, L501.1400, L400.0001, L503.6030, L3000.0800, L100.9950, L3890.6006, L501.5101, L100.0100, L504.2610, L501.5200, L506.0200, L3410.9992, L101.9900, L3100.1350, L3200.1200, L503.6550, L3200.0500, L501.6710 #### [facility] [address] [facility] [place], [address] Platelets (Bld) [#/Vol] 241 10*3/uL Normal 150-450 [facility] Comment on above: Performed By: #### L 503.0106, L500.4050, L501.1400, L400.0001, L503.6030, L3000.0800, L100.9950, L3890.6006, L501.5101, L100.0100, L504.2610, L501.5200, L506.0200, L3410.9992, L101.9900, L3100.1350, L3200.1200, L503.6550, L3200.0500, L501.6710 #### [facility] [address] [facility] [facility] [place], [place], [address] (017) RBC (Bld) [#/Vol] 4.04 10*6/uL Low 4.2-5.4 [facility] Comment on above: Performed By: #### L 503.0106, L500.4050, L501.1400, L400.0001, L503.6030, L3000.0800, L100.9950, L3890.6006, L501.5101, L100.0100, L504.2610, L501.5200, L506.0200, L3410.9992, L101.9900, L3100.1350, L3200.1200, L503.6550, L3200.0500, L501.6710 #### [facility] [address] [place], [address] RDW SD 47.2 fl High 35.1-43.9 [facility] Comment on above: Performed By: #### L 503.0106, L500.4050, L501.1400, L400.0001, L503.6030, L3000.0800, L100.9950, L3890.6006, L501.5101, L100.0100, L504.2610, L501.5200, L506.0200, L3410.9992, L101.9900, L3100.1350, L3200.1200, L503.6550, L3200.0500, L501.6710 #### [facility] [address] [place], [place], [id number] WBC (Bld) [#/Vol] 6.2 10*3/uL Normal 4.4-11.0 [facility] Comment on above: Performed By: #### L 503.0106, L500.4050, L501.1400, L400.0001, L503.6030, L3000.0800, L100.9950, L3890.6006, L501.5101, L100.0100, L504.2610, L501.5200, L506.0200, L3410.9992, L101.9900, L3100.1350, L3200.1200, L503.6550, L3200.0500, L501.6710 #### [facility] [address] [facility] [place], [place], [address] CRPon 06-04-2025 C-REACTIVE PROT 23.30 mg/L High 0.0-3.0 [facility] Comment on above: Performed By: #### L 503.0106, L500.4050, L501.1400, L400.0001, L503.6030, L3000.0800, L100.9950, L3890.6006, L501.5101, L100.0100, L504.2610, L501.5200, L506.0200, L3410.9992, L101.9900, L3100.1350, L3200.1200, L503.6550, L3200.0500, L501.6710 #### [facility] [address] [place], [place], [id number] Carbon dioxide, total [Moles /volume] in Central venous bloodOrdered By: Glen Chapman on 06-04-2025 CO2 [Moles/Vol] 24.0 mmol/L 21.0-32.0 [facility] Chloride assayOrdered By: Jaimee Chapman on 06-04-2025 Chloride [Moles/Vol] 96 mmol/L Low 98-108 [facility] Comprehensive Metabolic Prof ilon 06-04-2025 Albumin [Mass/Vol] 4.2 g/dL Normal 3.5-5.0 [facility] Comment on above: Performed By: #### L 503.0106, L500.4050, L501.1400, L400.0001, L503.6030, L3000.0800, L100.9950, L3890.6006, L501.5101, L100.0100, L504.2610, L501.5200, L506.0200, L3410.9992, L101.9900, L3100.1350, L3200.1200, L503.6550, L3200.0500, L501.6710 #### [facility] [address] [place], [place], [id number] Albumin/Globulin [Mass ratio] 1.6 {ratio} Normal 0.9-2.4 [facility] Comment on above: Performed By: #### L 503.0106, L500.4050, L501.1400, L400.0001, L503.6030, L3000.0800, L100.9950, L3890.6006, L501.5101, L100.0100, L504.2610, L501.5200, L506.0200, L3410.9992, L101.9900, L3100.1350, L3200.1200, L503.6550, L3200.0500, L501.6710 #### [facility] [address] [place] [place], [address] ALK PHOS 83 U/L Normal 35-104 [facility] Comment on above: Performed By: #### L 503.0106, L500.4050, L501.1400, L400.0001, L503.6030, L3000.0800, L100.9950, L3890.6006, L501.5101, L100.0100, L504.2610, L501.5200, L506.0200, L3410.9992, L101.9900, L3100.1350, L3200.1200, L503.6550, L3200.0500, L501.6710 #### [facility] [address] [place], [address] ALT [Catalytic activity/Vol] 12 U/L Normal <=34 [facility] Comment on above: Performed By: #### L 503.0106, L500.4050, L501.1400, L400.0001, L503.6030, L3000.0800, L100.9950, L3890.6006, L501.5101, L100.0100, L504.2610, L501.5200, L506.0200, L3410.9992, L101.9900, L3100.1350, L3200.1200, L503.6550, L3200.0500, L501.6710 #### [facility] [address] [place], [address] AST [Catalytic activity/Vol] 17 U/L Normal <=31 [facility] Comment on above: Performed By: #### L 503.0106, L500.4050, L501.1400, L400.0001, L503.6030, L3000.0800, L100.9950, L3890.6006, L501.5101, L100.0100, L504.2610, L501.5200, L506.0200, L3410.9992, L101.9900, L3100.1350, L3200.1200, L503.6550, L3200.0500, L501.6710 #### [facility] [address] [place], [place], [id number] (222) Bilirubin [Mass/Vol] 0.26 mg/dL Normal 0.00-1.30 [facility] Comment on above: Performed By: #### L 503.0106, L500.4050, L501.1400, L400.0001, L503.6030, L3000.0800, L100.9950, L3890.6006, L501.5101, L100.0100, L504.2610, L501.5200, L506.0200, L3410.9992, L101.9900, L3100.1350, L3200.1200, L503.6550, L3200.0500, L501.6710 #### [facility] [address] [place], [place], [id number] (317) BUN/CRE 10.3 RATIO Normal 10-20 [facility] Comment on above: Performed By: #### L 503.0106, L500.4050, L501.1400, L400.0001, L503.6030, L3000.0800, L100.9950, L3890.6006, L501.5101, L100.0100, L504.2610, L501.5200, L506.0200, L3410.9992, L101.9900, L3100.1350, L3200.1200, L503.6550, L3200.0500, L501.6710 #### [facility] [address] [place], [place], [id number] (688) Calcium [Mass/Vol] 9.1 mg/dL Normal 7.6-11.0 [facility] Comment on above: Performed By: #### L 503.0106, L500.4050, L501.1400, L400.0001, L503.6030, L3000.0800, L100.9950, L3890.6006, L501.5101, L100.0100, L504.2610, L501.5200, L506.0200, L3410.9992, L101.9900, L3100.1350, L3200.1200, L503.6550, L3200.0500, L501.6710 #### [facility] [address] [place], [place], [address] (480) Chloride [Moles/Vol] 96 mmol/L Low 98-108 [facility] Comment on above: Performed By: #### L 503.0106, L500.4050, L501.1400, L400.0001, L503.6030, L3000.0800, L100.9950, L3890.6006, L501.5101, L100.0100, L504.2610, L501.5200, L506.0200, L3410.9992, L101.9900, L3100.1350, L3200.1200, L503.6550, L3200.0500, L501.6710 #### [facility] [address] [place], [place], [address] (823) CO2 [Moles/Vol] 24.0 mmol/L Normal 21.0-32.0 [facility] Comment on above: Performed By: #### L 503.0106, L500.4050, L501.1400, L400.0001, L503.6030, L3000.0800, L100.9950, L3890.6006, L501.5101, L100.0100, L504.2610, L501.5200, L506.0200, L3410.9992, L101.9900, L3100.1350, L3200.1200, L503.6550, L3200.0500, L501.6710 #### [facility] [address] [place], [place], [id number] Creatinine [Mass/Vol] 0.83 mg/dL Normal 0.70-1.20 [facility] Comment on above: Performed By: #### L 503.0106, L500.4050, L501.1400, L400.0001, L503.6030, L3000.0800, L100.9950, L3890.6006, L501.5101, L100.0100, L504.2610, L501.5200, L506.0200, L3410.9992, L101.9900, L3100.1350, L3200.1200, L503.6550, L3200.0500, L501.6710 #### [facility] [address] [place], [address] ECRCL 104.65 ml/min Normal 50-250 [facility] Comment on above: Performed By: #### L 503.0106, L500.4050, L501.1400, L400.0001, L503.6030, L3000.0800, L100.9950, L3890.6006, L501.5101, L100.0100, L504.2610, L501.5200, L506.0200, L3410.9992, L101.9900, L3100.1350, L3200.1200, L503.6550, L3200.0500, L501.6710 #### [facility] [address] [facility] [place], [place], [address] GAP 15 Normal 5-15 [facility] Comment on above: Performed By: #### L 503.0106, L500.4050, L501.1400, L400.0001, L503.6030, L3000.0800, L100.9950, L3890.6006, L501.5101, L100.0100, L504.2610, L501.5200, L506.0200, L3410.9992, L101.9900, L3100.1350, L3200.1200, L503.6550, L3200.0500, L501.6710 #### [facility] [address] [place], [address] GFR/1.73 sq M.predicted among non-blacks MDRD (S/P/Bld) [Vol rate/Area] 84 mL/min/{1.73_m2} Normal >60 [facility] Comment on above: Result Comment: mL/m in/1.73m2 CKD-EPI Creatinine Equation (2020) Performed By: #### L 503.0106, L500.4050, L501.1400, L400.0001, L503.6030, L3000.0800, L100.9950, L3890.6006, L501.5101, L100.0100, L504.2610, L501.5200, L506.0200, L3410.9992, L101.9900, L3100.1350, L3200.1200, L503.6550, L3200.0500, L501.6710 #### [facility] [address] [place], [address] Globulin (S) [Mass/Vol] 2.7 g/dL Normal 2.2-4.2 [facility] Comment on above: Performed By: #### L 503.0106, L500.4050, L501.1400, L400.0001, L503.6030, L3000.0800, L100.9950, L3890.6006, L501.5101, L100.0100, L504.2610, L501.5200, L506.0200, L3410.9992, L101.9900, L3100.1350, L3200.1200, L503.6550, L3200.0500, L501.6710 #### [facility] [address] [place], [address] Glucose [Mass/Vol] 283 mg/dL High 70-99 [facility] Comment on above: Performed By: #### L 503.0106, L500.4050, L501.1400, L400.0001, L503.6030, L3000.0800, L100.9950, L3890.6006, L501.5101, L100.0100, L504.2610, L501.5200, L506.0200, L3410.9992, L101.9900, L3100.1350, L3200.1200, L503.6550, L3200.0500, L501.6710 #### [facility] [address] [place], [place], [id number] (741) Potassium [Moles/Vol] 3.7 mmol/L Normal 3.3-5.1 [facility] Comment on above: Performed By: #### L 503.0106, L500.4050, L501.1400, L400.0001, L503.6030, L3000.0800, L100.9950, L3890.6006, L501.5101, L100.0100, L504.2610, L501.5200, L506.0200, L3410.9992, L101.9900, L3100.1350, L3200.1200, L503.6550, L3200.0500, L501.6710 #### [facility] [address] [place], [place], [id number] (448) Sodium [Moles/Vol] 135 mmol/L Normal 133-145 [facility] Comment on above: Performed By: #### L 503.0106, L500.4050, L501.1400, L400.0001, L503.6030, L3000.0800, L100.9950, L3890.6006, L501.5101, L100.0100, L504.2610, L501.5200, L506.0200, L3410.9992, L101.9900, L3100.1350, L3200.1200, L503.6550, L3200.0500, L501.6710 #### [facility] [address] [place], [address] T PROT 6.9 g/dL Normal 5.9-8.4 [facility] Comment on above: Performed By: #### L 503.0106, L500.4050, L501.1400, L400.0001, L503.6030, L3000.0800, L100.9950, L3890.6006, L501.5101, L100.0100, L504.2610, L501.5200, L506.0200, L3410.9992, L101.9900, L3100.1350, L3200.1200, L503.6550, L3200.0500, L501.6710 #### [facility] [address] [place], [address] Urea nitrogen [Mass/Vol] 9 mg/dL Normal 4-19 [facility] Comment on above: Performed By: #### L 503.0106, L500.4050, L501.1400, L400.0001, L503.6030, L3000.0800, L100.9950, L3890.6006, L501.5101, L100.0100, L504.2610, L501.5200, L506.0200, L3410.9992, L101.9900, L3100.1350, L3200.1200, L503.6550, L3200.0500, L501.6710 #### [facility] [address] [place], [address] Eosinophil percentageOrdered By: Glen Chapman on 06-04-2025 Eosinophils/100 WBC (Bld) 4.7 % 0-5 [facility] Erythrocyte Sed Rateon 06-04 SED RATE 18 mm/hr Normal 0-30 [facility] Comment on above: Performed By: #### L 503.0106, L500.4050, L501.1400, L400.0001, L503.6030, L3000.0800, L100.9950, L3890.6006, L501.5101, L100.0100, L504.2610, L501.5200, L506.0200, L3410.9992, L101.9900, L3100.1350, L3200.1200, L503.6550, L3200.0500, L501.6710 #### [facility] [address] [place], [place], [id number] Erythrocyte distribution wid th ratioOrdered By: Glen Chapman on 06-04-2025 Erythrocyte distribution width (RBC) [Ratio] 15.2 % High 11.6-14.6 [facility] Erythrocyte distribution wid th standard deviationOrdered By: Glen Ari on 06-04-2025 Erythrocyte distribution width (RBC) [Ratio] 47.2 fl High 35.1-43.9 [facility] Erythrocyte sedimentation ra teOrdered By: Glen Chapman on 06-04-2025 ESR (Bld) [Velocity] 18 mm/h 0-30 [facility] Ferritinon 06-04-2025 Ferritin [Mass/Vol] 76 ng/mL Normal 22-378 [facility] Comment on above: Performed By: #### L 503.0106, L500.4050, L501.1400, L400.0001, L503.6030, L3000.0800, L100.9950, L3890.6006, L501.5101, L100.0100, L504.2610, L501.5200, L506.0200, L3410.9992, L101.9900, L3100.1350, L3200.1200, L503.6550, L3200.0500, L501.6710 #### [facility] [address] [place], [place], [id number] Glomerular filtration rate ( GFR) estimation/1.73 sq m using serum, plasma, or whole bOrdered By: Glen Chapman on 06-04-2025 GFR/1.73 sq M.predicted among non-blacks MDRD (S/P/Bld) [Vol rate/Area] 84 mL/min/{1.73_m2} >60 [facility] Comment on above: mL/min/1.73m2 CKD-EP I Creatinine Equation (2020) Hematocrit Auto (Bld) [Volum e fraction]Ordered By: Glen Ari on 06-04-2025 Hematocrit (Bld) [Volume fraction] 35.0 % Low 37-47 [facility] Hemoglobin measurementOrdere d By: Glen Ari on 06-04-2025 Hemoglobin (Bld) [Mass/Vol] 11.3 g/dL Low 12.0-15. 0 [facility] Immature granulocytes/100 WB C Auto (Bld)Ordered By: Glen Chapman on 06-04-2025 Immature granulocytes/100 WBC (Bld) 1.300 % High 0.0-0.9 [facility] Comment on above: IG% - Immature Granu locytes (promyelocytes, myelocytes and metamyelocytes) > 1% indicates that a LEFT SHIFT is Present. Iron measurement (mass/mass) Ordered By: Glen Chapman on 06-04-2025 Iron (Unsp spec) [Mass/Mass] 57 ug/dL 50-170 [facility] Iron+Iron Binding Capacityon 06-04-2025 Iron [Mass/Vol] 57 ug/dL Normal 50-170 [facility] Comment on above: Performed By: #### L 503.0106, L500.4050, L501.1400, L400.0001, L503.6030, L3000.0800, L100.9950, L3890.6006, L501.5101, L100.0100, L504.2610, L501.5200, L506.0200, L3410.9992, L101.9900, L3100.1350, L3200.1200, L503.6550, L3200.0500, L501.6710 #### [facility] [address] [place], [place], [id number] IRON SATURATION 14.0 Normal 13-59 [facility] Comment on above: Performed By: #### L 503.0106, L500.4050, L501.1400, L400.0001, L503.6030, L3000.0800, L100.9950, L3890.6006, L501.5101, L100.0100, L504.2610, L501.5200, L506.0200, L3410.9992, L101.9900, L3100.1350, L3200.1200, L503.6550, L3200.0500, L501.6710 #### [facility] [address] [place], [place], [id number] (024) TIBC 395 ug/dL Normal 250-450 [facility] Comment on above: Performed By: #### L 503.0106, L500.4050, L501.1400, L400.0001, L503.6030, L3000.0800, L100.9950, L3890.6006, L501.5101, L100.0100, L504.2610, L501.5200, L506.0200, L3410.9992, L101.9900, L3100.1350, L3200.1200, L503.6550, L3200.0500, L501.6710 #### [facility] [address] [place], [place], [id number] UIBC 338 ug/dL Normal 228-428 [facility] Comment on above: Performed By: #### L 503.0106, L500.4050, L501.1400, L400.0001, L503.6030, L3000.0800, L100.9950, L3890.6006, L501.5101, L100.0100, L504.2610, L501.5200, L506.0200, L3410.9992, L101.9900, L3100.1350, L3200.1200, L503.6550, L3200.0500, L501.6710 #### [facility] [address] [facility] [place], [place], [id number] LDHon 06-04-2025 LDH 167 U/L Normal 84-246 [facility] Comment on above: Order Comment: 1 Performed By: #### L 503.0106, L500.4050, L501.1400, L400.0001, L503.6030, L3000.0800, L100.9950, L3890.6006, L501.5101, L100.0100, L504.2610, L501.5200, L506.0200, L3410.9992, L101.9900, L3100.1350, L3200.1200, L503.6550, L3200.0500, L501.6710 #### [facility] [address] [place], [place], [id number] Laboratory - Chemistry and C hemistry - challengeOrdered By: Glen Chapman on 06-04-2025 AST [Catalytic activity/Vol] 17 U/L <32 [facility] Lactate dehydrogenase (LDH) measurementOrdered By: Glen Chapman on 06-04-2025 LDH [Catalytic activity/Vol] 167 U/L 84-246 [facility] MCV (mean corpuscular volume ) determinationOrdered By: Glen Chapman on 06-04-2025 MCV (RBC) [Entitic vol] 86.6 fL 81-99 [facility] Magnesiumon 06-04-2025 Magnesium [Mass/Vol] 1.5 mg/dL Normal 1.5-2.2 [facility] Comment on above: Performed By: #### L 503.0106, L500.4050, L501.1400, L400.0001, L503.6030, L3000.0800, L100.9950, L3890.6006, L501.5101, L100.0100, L504.2610, L501.5200, L506.0200, L3410.9992, L101.9900, L3100.1350, L3200.1200, L503.6550, L3200.0500, L501.6710 #### [facility] [address] [place], [place], [id number] Magnesium measurement (mass/ volume)Ordered By: Glen Chapman on 06-04-2025 Magnesium (Unsp spec) [Mass/Vol] 1.5 mg/dL 1.5-2.2 [facility] Mean corpuscular hemoglobin (MCH) determinationOrdered By: Glen Chapman on 06-04-2025 MCH (RBC) [Entitic mass] 28.0 pg 27.0-32.0 [facility] Mean corpuscular hemoglobin concentration (MCHC) determinationOrdered By: Glen Chapman on 06-04-2025 MCHC (RBC) [Mass/Vol] 32.3 g/dL 32-36 [facility] Mean platelet volume determi nationOrdered By: Glen Chapman on 06-04-2025 Platelet mean volume (Bld) [Entitic vol] 9.6 fL 6.2-12.0 [facility] Monocyte percentageOrdered B y: Glen Chapman on 06-04-2025 Monocytes/100 WBC (Bld) 5.5 % 0-10 [facility] Neutrophil percentageOrdered By: Glen Chapman on 06-04-2025 Neutrophils/100 WBC (Bld) 70.9 % High 47-70 [facility] No Panel InformationOrdered By: Glen Chapman on 06-04-2025 Unsaturated Iron Binding Capacity 338 ug/dL 228-428 [facility] Nucleated red blood cell per centageOrdered By: Glen Chapman on 06-04-2025 Nucleated RBC/100 WBC (Bld) [Ratio] 0 % 0-5 [facility] Oncology Visit Reporton 05-16 Oncology Visit Report [facility] [address] [place] [address] OFFICE VISIT Date of Service: 06/04/25 1109 MR#: [id number] Acct: [id number] Name: HEIDI ANDREWS Rep #: [id number] : 1970 From: Glen Chapman MD Age/Sex: 55/F Location: [facility] [place] Status: Signed HPI Subjective Date [...] deficiency. Comes for follow up. Feels better. [facility] Medical History Sleep apnea Wears glasses Thyroid [...] anemia, unspe (more content not included)... Normal [facility] Phosphoruson 06-04-2025 Phosphate [Mass/Vol] 2.4 mg/dL Low 2.7-4.5 [facility] Comment on above: Performed By: #### L 503.0106, L500.4050, L501.1400, L400.0001, L503.6030, L3000.0800, L100.9950, L3890.6006, L501.5101, L100.0100, L504.2610, L501.5200, L506.0200, L3410.9992, L101.9900, L3100.1350, L3200.1200, L503.6550, L3200.0500, L501.6710 #### [facility] [address] [place], [place], [address] Platelet countOrdered By: Jaimee Chapman on 06-04-2025 Platelets (Bld) [#/Vol] 241 10*3/uL 150-450 [facility] Potassium measurement (mass/ volume)Ordered By: Glen Chapman on 06-04-2025 Potassium (Unsp spec) [Mass/Vol] 3.7 mmol/L 3.3-5.1 [facility] RBC Auto (Bld) [#/Vol]Ordere d By: Glen Chapman on 06-04-2025 RBC (Bld) [#/Vol] 4.04 10*6/uL Low 4.2-5.4 [facility] Serum creatinine measurement (mass/volume)Ordered By: Glen Chapman on 06-04-2025 Creatinine [Mass/Vol] 0.83 mg/dL 0.70-1.20 [facility] Serum globulin measurementOr dered By: Glen Chapman on 06-04-2025 Globulin (S) [Mass/Vol] 2.7 g/dL 2.2-4.2 [facility] Serum glucose measurement (m ass/volume)Ordered By: Glen Chapman on 06-04-2025 Glucose [Mass/Vol] 283 mg/dL High 70-99 [facility] Serum or plasma C reactive p rotein measurement (mass/volume)Ordered By: Glen Chapman on 06-04-2025 CRP [Mass/Vol] 23.30 mg/L High 0.0-3.0 [facility] Serum or plasma alanine cueto otransferase (ALT) measurementOrdered By: Glen Chapman on 06-04-2025 ALT [Catalytic activity/Vol] 12 U/L <35 [facility] Serum or plasma albumin sandy urement (mass/volume)Ordered By: Glen Chapman on 06-04-2025 Albumin [Mass/Vol] 4.2 g/dL 3.5-5.0 [facility] Serum or plasma albumin/glob ulin mass ratioOrdered By: Glen Chapman on 06-04-2025 Albumin/Globulin [Mass ratio] 1.6 {ratio} 0.9-2.4 [facility] Serum or plasma alkaline rebecca sphatase measurementOrdered By: Glen Chapman on 06-04-2025 ALP [Catalytic activity/Vol] 83 U/L 35-104 [facility] Serum or plasma calcium sandy urement (mass/volume)Ordered By: Glen Chapman on 06-04-2025 Calcium [Mass/Vol] 9.1 mg/dL 7.6-11.0 [facility] Serum or plasma ferritin darrel surement (mass/volume)Ordered By: Glen Chapman on 06-04-2025 Ferritin [Mass/Vol] 76 ng/mL 22-378 [facility] Serum or plasma iron saturat ion measurement (mass fraction)Ordered By: Glen Chapman on 06-04-2025 Iron saturation [Mass fraction] 14.0 % 13-59 [facility] Serum or plasma urea nitroge n measurement (mass/volume)Ordered By: Glen Chapman on 06-04-2025 Urea nitrogen [Mass/Vol] 9 mg/dL 4-19 [facility] Sodium levelOrdered By: Cy Chapman on 06-04-2025 Sodium [Moles/Vol] 135 mmol/L 133-145 [facility] Total proteinOrdered By: Vasquez Chapman on 06-04-2025 Protein [Mass/Vol] 6.9 g/dL 5.9-8.4 [facility] Vitamin B12on 06-04-2025 Cobalamin (Vitamin B12) [Mass/Vol] 416 pg/mL Normal 180-914 [facility] Comment on above: Performed By: #### L 503.0106, L500.4050, L501.1400, L400.0001, L503.6030, L3000.0800, L100.9950, L3890.6006, L501.5101, L100.0100, L504.2610, L501.5200, L506.0200, L3410.9992, L101.9900, L3100.1350, L3200.1200, L503.6550, L3200.0500, L501.6710 #### [facility] [address] [place], [address] Vitamin B12 ser/plasOrdered By: Glen Chapman on 06-04-2025 Cobalamin (Vitamin B12) [Mass/Vol] 416 pg/mL 180-914 [facility] White blood cell (WBC) count Ordered By: Glen Chapman on 06-04-2025 WBC (Bld) [#/Vol] 6.2 10*3/uL 4.4-11.0 [facility] Absolute lymphocyte countOrd ered By: Glen Chapman on 05-07-2025 Lymphocytes Auto (Unsp spec) [#/Vol] 1.11 10*3/uL 0.83-4.51 [facility] Absolute neutrophil countOrd ered By: [facility]-2025 Neutrophils (Bld) [#/Vol] 2.9 10*3/uL 2.0-7.7 [facility] Automated lymphocyte count a s percentage of total leukocytesOrdered By: Glen Chapman on 05-07-2025 Lymphocytes/100 WBC Auto (Unsp spec) 23.9 % 19-41 [facility] Basophil percentageOrdered B y: Glen Chapman on 05-07-2025 Basophils/100 WBC (Bld) 0.4 % 0-1 [facility] CBC W/Diff, Automatedon 04-16 Absolute Lymph 1.11 X10 3/uL Normal 0.83-4.51 [facility] Comment on above: Performed By: #### L 503.0106, L500.4050, L501.1400, L400.0001, L503.6030, L3000.0800, L100.9950, L3890.6006, L501.5101, L100.0100, L504.2610, L501.5200, L506.0200, L3410.9992, L101.9900, L3100.1350, L3200.1200, L503.6550, L3200.0500, L501.6710 #### [facility] Laboratory [address] [place], [place], [id number] (742) Absolute Neut 2.9 X10 3/uL Normal 2.0-7.7 [facility] Comment on above: Performed By: #### L 503.0106, L500.4050, L501.1400, L400.0001, L503.6030, L3000.0800, L100.9950, L3890.6006, L501.5101, L100.0100, L504.2610, L501.5200, L506.0200, L3410.9992, L101.9900, L3100.1350, L3200.1200, L503.6550, L3200.0500, L501.6710 #### [facility] Laboratory [address] [place], [address] (270) Basophils/100 WBC (Bld) 0.4 % Normal 0-1 [facility] Comment on above: Performed By: #### L 503.0106, L500.4050, L501.1400, L400.0001, L503.6030, L3000.0800, L100.9950, L3890.6006, L501.5101, L100.0100, L504.2610, L501.5200, L506.0200, L3410.9992, L101.9900, L3100.1350, L3200.1200, L503.6550, L3200.0500, L501.6710 #### [facility] Laboratory [address] [place], [place], [id number] (868) Eosinophils/100 WBC (Bld) 6.3 % High 0-5 [facility] Comment on above: Performed By: #### L 503.0106, L500.4050, L501.1400, L400.0001, L503.6030, L3000.0800, L100.9950, L3890.6006, L501.5101, L100.0100, L504.2610, L501.5200, L506.0200, L3410.9992, L101.9900, L3100.1350, L3200.1200, L503.6550, L3200.0500, L501.6710 #### [facility] Laboratory [address] [place], [address] Erythrocyte distribution width (RBC) [Ratio] 19.2 % High 11.6-14.6 [facility] Comment on above: Performed By: #### L 503.0106, L500.4050, L501.1400, L400.0001, L503.6030, L3000.0800, L100.9950, L3890.6006, L501.5101, L100.0100, L504.2610, L501.5200, L506.0200, L3410.9992, L101.9900, L3100.1350, L3200.1200, L503.6550, L3200.0500, L501.6710 #### [facility] [address] [place], [address] Hematocrit (Bld) [Volume fraction] 33.0 % Low 37-47 [facility] Comment on above: Performed By: #### L 503.0106, L500.4050, L501.1400, L400.0001, L503.6030, L3000.0800, L100.9950, L3890.6006, L501.5101, L100.0100, L504.2610, L501.5200, L506.0200, L3410.9992, L101.9900, L3100.1350, L3200.1200, L503.6550, L3200.0500, L501.6710 #### [facility] [address] [place] [place], [address] Hemoglobin (Bld) [Mass/Vol] 10.3 g/dL Low 12.0-15. 0 [facility] Comment on above: Performed By: #### L 503.0106, L500.4050, L501.1400, L400.0001, L503.6030, L3000.0800, L100.9950, L3890.6006, L501.5101, L100.0100, L504.2610, L501.5200, L506.0200, L3410.9992, L101.9900, L3100.1350, L3200.1200, L503.6550, L3200.0500, L501.6710 #### [facility] [address] [place], [place], [phone] (889) IG% 1.100 High 0.0-0.9 [facility] Comment on above: Result Comment: IG% - Immature Granulocytes (promyelocytes, myelocytes and metamyelocytes) > 1% indicates that a LEFT SHIFT is Present. Performed By: #### L 503.0106, L500.4050, L501.1400, L400.0001, L503.6030, L3000.0800, L100.9950, L3890.6006, L501.5101, L100.0100, L504.2610, L501.5200, L506.0200, L3410.9992, L101.9900, L3100.1350, L3200.1200, L503.6550, L3200.0500, L501.6710 #### [facility] [address] [facility] [place], [place], [phone] (684) Lymphocytes/100 WBC (Bld) 23.9 % Normal 19-41 [facility] Comment on above: Performed By: #### L 503.0106, L500.4050, L501.1400, L400.0001, L503.6030, L3000.0800, L100.9950, L3890.6006, L501.5101, L100.0100, L504.2610, L501.5200, L506.0200, L3410.9992, L101.9900, L3100.1350, L3200.1200, L503.6550, L3200.0500, L501.6710 #### [facility] Laboratory [address] [place], [address] MCH (RBC) [Entitic mass] 28.0 pg Normal 27.0-32.0 [facility] Comment on above: Performed By: #### L 503.0106, L500.4050, L501.1400, L400.0001, L503.6030, L3000.0800, L100.9950, L3890.6006, L501.5101, L100.0100, L504.2610, L501.5200, L506.0200, L3410.9992, L101.9900, L3100.1350, L3200.1200, L503.6550, L3200.0500, L501.6710 #### [facility] Laboratory [address] [place], [address] MCHC (RBC) [Mass/Vol] 31.2 g/dL Low 32-36 [facility] Comment on above: Performed By: #### L 503.0106, L500.4050, L501.1400, L400.0001, L503.6030, L3000.0800, L100.9950, L3890.6006, L501.5101, L100.0100, L504.2610, L501.5200, L506.0200, L3410.9992, L101.9900, L3100.1350, L3200.1200, L503.6550, L3200.0500, L501.6710 #### [facility] Laboratory [address] [place], [address] MCV (RBC) [Entitic vol] 89.7 fL Normal 81-99 [facility] Comment on above: Performed By: #### L 503.0106, L500.4050, L501.1400, L400.0001, L503.6030, L3000.0800, L100.9950, L3890.6006, L501.5101, L100.0100, L504.2610, L501.5200, L506.0200, L3410.9992, L101.9900, L3100.1350, L3200.1200, L503.6550, L3200.0500, L501.6710 #### [facility] [address] [place] [place], [address] Monocytes/100 WBC (Bld) 6.9 % Normal 0-10 [facility] Comment on above: Performed By: #### L 503.0106, L500.4050, L501.1400, L400.0001, L503.6030, L3000.0800, L100.9950, L3890.6006, L501.5101, L100.0100, L504.2610, L501.5200, L506.0200, L3410.9992, L101.9900, L3100.1350, L3200.1200, L503.6550, L3200.0500, L501.6710 #### [facility] [address] [facility] [place], [place], [phone] (288 Neutrophils/100 WBC (Bld) 61.4 % Normal 47-70 [facility] Comment on above: Performed By: #### L 503.0106, L500.4050, L501.1400, L400.0001, L503.6030, L3000.0800, L100.9950, L3890.6006, L501.5101, L100.0100, L504.2610, L501.5200, L506.0200, L3410.9992, L101.9900, L3100.1350, L3200.1200, L503.6550, L3200.0500, L501.6710 #### [facility] [address] [facility] [place], [place], [id number] Nucleated RBC (Bld) [#/Vol] 0 10*3/uL Normal 0-5 [facility] Comment on above: Performed By: #### L 503.0106, L500.4050, L501.1400, L400.0001, L503.6030, L3000.0800, L100.9950, L3890.6006, L501.5101, L100.0100, L504.2610, L501.5200, L506.0200, L3410.9992, L101.9900, L3100.1350, L3200.1200, L503.6550, L3200.0500, L501.6710 #### [facility] Laboratory [address] [place], [address] Platelet mean volume (Bld) [Entitic vol] 9.3 fL Normal 6.2-12.0 [facility] Comment on above: Performed By: #### L 503.0106, L500.4050, L501.1400, L400.0001, L503.6030, L3000.0800, L100.9950, L3890.6006, L501.5101, L100.0100, L504.2610, L501.5200, L506.0200, L3410.9992, L101.9900, L3100.1350, L3200.1200, L503.6550, L3200.0500, L501.6710 #### [facility] [address] [facility] [place], [place], [id number] Platelets (Bld) [#/Vol] 232 10*3/uL Normal 150-450 [facility] Comment on above: Performed By: #### L 503.0106, L500.4050, L501.1400, L400.0001, L503.6030, L3000.0800, L100.9950, L3890.6006, L501.5101, L100.0100, L504.2610, L501.5200, L506.0200, L3410.9992, L101.9900, L3100.1350, L3200.1200, L503.6550, L3200.0500, L501.6710 #### [facility] Laboratory [address] [place], [address] (860) RBC (Bld) [#/Vol] 3.68 10*6/uL Low 4.2-5.4 [facility] Comment on above: Performed By: #### L 503.0106, L500.4050, L501.1400, L400.0001, L503.6030, L3000.0800, L100.9950, L3890.6006, L501.5101, L100.0100, L504.2610, L501.5200, L506.0200, L3410.9992, L101.9900, L3100.1350, L3200.1200, L503.6550, L3200.0500, L501.6710 #### [facility] Laboratory [address] [place], [address] (867) RDW SD 63.7 fl High 35.1-43.9 [facility] Comment on above: Performed By: #### L 503.0106, L500.4050, L501.1400, L400.0001, L503.6030, L3000.0800, L100.9950, L3890.6006, L501.5101, L100.0100, L504.2610, L501.5200, L506.0200, L3410.9992, L101.9900, L3100.1350, L3200.1200, L503.6550, L3200.0500, L501.6710 #### [facility] Laboratory [address] [facility] [address] [place], [place], [phone] WBC (Bld) [#/Vol] 4.6 10*3/uL Normal 4.4-11.0 [facility] Comment on above: Performed By: #### L 503.0106, L500.4050, L501.1400, L400.0001, L503.6030, L3000.0800, L100.9950, L3890.6006, L501.5101, L100.0100, L504.2610, L501.5200, L506.0200, L3410.9992, L101.9900, L3100.1350, L3200.1200, L503.6550, L3200.0500, L501.6710 #### [facility] Laboratory [address] [place], [place], [id number] Eosinophil percentageOrdered By: Glen Chapman on 05-07-2025 Eosinophils/100 WBC (Bld) 6.3 % High 0-5 [facility] Erythrocyte distribution wid th ratioOrdered By: Glen Ari on 05-07-2025 Erythrocyte distribution width (RBC) [Ratio] 19.2 % High 11.6-14.6 [facility] Erythrocyte distribution wid th standard deviationOrdered By: Glen Chapman on 05-07-2025 Erythrocyte distribution width (RBC) [Ratio] 63.7 fl High 35.1-43.9 [facility] Ferritinon 05-07-2025 Ferritin [Mass/Vol] 90 ng/mL Normal 22-378 [facility] Comment on above: Performed By: #### L 503.0106, L500.4050, L501.1400, L400.0001, L503.6030, L3000.0800, L100.9950, L3890.6006, L501.5101, L100.0100, L504.2610, L501.5200, L506.0200, L3410.9992, L101.9900, L3100.1350, L3200.1200, L503.6550, L3200.0500, L501.6710 #### [facility] Laboratory [address] [place] [place], [address] Hematocrit Auto (Bld) [Volum e fraction]Ordered By: Glne Chapman on 05-07-2025 Hematocrit (Bld) [Volume fraction] 33.0 % Low 37-47 [facility] Hemoglobin measurementOrdere d By: Glen Chapman on 05-07-2025 Hemoglobin (Bld) [Mass/Vol] 10.3 g/dL Low 12.0-15. 0 [facility] Immature granulocytes/100 WB C Auto (Bld)Ordered By: Glen Chapman on 05-07-2025 Immature granulocytes/100 WBC (Bld) 1.100 % High 0.0-0.9 [facility] Comment on above: IG% - Immature Granu locytes (promyelocytes, myelocytes and metamyelocytes) > 1% indicates that a LEFT SHIFT is Present. Iron measurement (mass/mass) Ordered By: Glen Chapman on 05-07-2025 Iron (Unsp spec) [Mass/Mass] 57 ug/dL 50-170 [facility] Iron+Iron Binding Capacityon 05-07-2025 Iron [Mass/Vol] 57 ug/dL Normal 50-170 [facility] Comment on above: Performed By: #### L 503.0106, L500.4050, L501.1400, L400.0001, L503.6030, L3000.0800, L100.9950, L3890.6006, L501.5101, L100.0100, L504.2610, L501.5200, L506.0200, L3410.9992, L101.9900, L3100.1350, L3200.1200, L503.6550, L3200.0500, L501.6710 #### [facility] [address] [facility] [place], [place], [id number] IRON SATURATION 14.0 Normal 13-59 [facility] Comment on above: Performed By: #### L 503.0106, L500.4050, L501.1400, L400.0001, L503.6030, L3000.0800, L100.9950, L3890.6006, L501.5101, L100.0100, L504.2610, L501.5200, L506.0200, L3410.9992, L101.9900, L3100.1350, L3200.1200, L503.6550, L3200.0500, L501.6710 #### [facility] Laboratory [address] [facility] [place], [place], [id number] TIBC 392 ug/dL Normal 250-450 [facility] Comment on above: Performed By: #### L 503.0106, L500.4050, L501.1400, L400.0001, L503.6030, L3000.0800, L100.9950, L3890.6006, L501.5101, L100.0100, L504.2610, L501.5200, L506.0200, L3410.9992, L101.9900, L3100.1350, L3200.1200, L503.6550, L3200.0500, L501.6710 #### [facility] [address] [facility] [place], [place], [id number] UIBC 335 ug/dL Normal 228-428 [facility] Comment on above: Performed By: #### L 503.0106, L500.4050, L501.1400, L400.0001, L503.6030, L3000.0800, L100.9950, L3890.6006, L501.5101, L100.0100, L504.2610, L501.5200, L506.0200, L3410.9992, L101.9900, L3100.1350, L3200.1200, L503.6550, L3200.0500, L501.6710 #### [facility] Laboratory [address] [facility] [facility] [place], [place], [id number] LDHon 05-07-2025 LDH 132 U/L Normal 84-246 [facility] Comment on above: Order Comment: 1 Performed By: #### L 503.0106, L500.4050, L501.1400, L400.0001, L503.6030, L3000.0800, L100.9950, L3890.6006, L501.5101, L100.0100, L504.2610, L501.5200, L506.0200, L3410.9992, L101.9900, L3100.1350, L3200.1200, L503.6550, L3200.0500, L501.6710 #### [facility] [address] [place], [address] Lactate dehydrogenase (LDH) measurementOrdered By: Glen Champan on 05-07-2025 LDH [Catalytic activity/Vol] 132 U/L 84-246 [facility] MCV (mean corpuscular volume ) determinationOrdered By: Glen Chapman on 05-07-2025 MCV (RBC) [Entitic vol] 89.7 fL 81-99 [facility] Magnesiumon 05-07-2025 Magnesium [Mass/Vol] 1.3 mg/dL Low 1.5-2.2 [facility] Comment on above: Performed By: #### L 503.0106, L500.4050, L501.1400, L400.0001, L503.6030, L3000.0800, L100.9950, L3890.6006, L501.5101, L100.0100, L504.2610, L501.5200, L506.0200, L3410.9992, L101.9900, L3100.1350, L3200.1200, L503.6550, L3200.0500, L501.6710 #### [facility] [address] [place], [place], [id number] Magnesium measurement (mass/ volume)Ordered By: Glen Chapman on 05-07-2025 Magnesium (Unsp spec) [Mass/Vol] 1.3 mg/dL Low 1.5-2.2 [facility] Mean corpuscular hemoglobin (MCH) determinationOrdered By: Glen Chapman on 05-07-2025 MCH (RBC) [Entitic mass] 28.0 pg 27.0-32.0 [facility] Mean corpuscular hemoglobin concentration (MCHC) determinationOrdered By: Glen Chapman on 05-07-2025 MCHC (RBC) [Mass/Vol] 31.2 g/dL Low 32-36 [facility] Mean platelet volume determi nationOrdered By: Glen Chapman on 05-07-2025 Platelet mean volume (Bld) [Entitic vol] 9.3 fL 6.2-12.0 [facility] Monocyte percentageOrdered B y: Glen Chapman on 05-07-2025 Monocytes/100 WBC (Bld) 6.9 % 0-10 [facility] Neutrophil percentageOrdered By: Glen Chapman on 05-07-2025 Neutrophils/100 WBC (Bld) 61.4 % 47-70 [facility] No Panel InformationOrdered By: Glen Chapman on 05-07-2025 Unsaturated Iron Binding Capacity 335 ug/dL 228-428 [facility] Nucleated red blood cell per centageOrdered By: Glen Chapman on 05-07-2025 Nucleated RBC/100 WBC (Bld) [Ratio] 0 % 0-5 [facility] Oncology Visit Reporton 04-16 Oncology Visit Report [facility] [address] [place] [address] OFFICE VISIT Date of Service: 05/07/25 0826 MR#: [id number] Acct: [id number] Name: HEIDI ANDREWS Rep #: [id number] : 1970 From: Glen Chapman MD Age/Sex: 55/F Location[place] [facility] Status: Signed HPI Subjective Date [...] 03/29/2025. Comes for follow up. Feels better. [facility] Medical History Sleep apnea Wears glasses Thyroid disease Diabetes Anemia Former smoker Diabetes Anxiety Psoriasis Hypothyroid Vitamin D deficiency Hypertriglyceridemia Bipolar disorder, unspecified HTN (hypertension) Surgical History Hx of section Hx of bilateral breast reduction surgery Family History Father Hypertension Diabetes Sister Anxiety MCTD (mixed connective tissue disease) Mother Psoriatic arthritis Social History household members: spouse current occupational status: employed current occupation: [employer] Smoking Status: Former smoker alcohol intake: never substance use type: does not use Intake Vital Signs 03/29/25 08:03 05/07/25 08:27 Height 5 ft 6 in 5 ft 6 in Weight: 122.47 kg BMI 43.5 BP 132/82 H Blood Pressure Location Lt brachial Position Sitting Respiration 18 Pulse 75 Pulse Source Monitor Temp 98.0 F Temperature Source Temporal Artery Pulse Oximetry (%) 96 Intake Student Support Advisor Required: No Accompanied by: Self Is patient [...] Details Foll (more content not included)... Normal [facility] Phosphoruson 05-07-2025 Phosphate [Mass/Vol] 2.6 mg/dL Low 2.7-4.5 [facility] Comment on above: Performed By: #### L 503.0106, L500.4050, L501.1400, L400.0001, L503.6030, L3000.0800, L100.9950, L3890.6006, L501.5101, L100.0100, L504.2610, L501.5200, L506.0200, L3410.9992, L101.9900, L3100.1350, L3200.1200, L503.6550, L3200.0500, L501.6710 #### [facility] [address] [place], [place], [id number] Platelet countOrdered By: Jaimee Chapman on 05-07-2025 Platelets (Bld) [#/Vol] 232 10*3/uL 150-450 [facility] RBC Auto (Bld) [#/Vol]Ordere d By: Glen Chapman on 05-07-2025 RBC (Bld) [#/Vol] 3.68 10*6/uL Low 4.2-5.4 [facility] Serum or plasma ferritin darrel surement (mass/volume)Ordered By: Glen Chapman on 05-07-2025 Ferritin [Mass/Vol] 90 ng/mL 22-378 [facility] Serum or plasma iron saturat ion measurement (mass fraction)Ordered By: Glen Chapman on 05-07-2025 Iron saturation [Mass fraction] 14.0 % 13-59 [facility] Vitamin B12on 05-07-2025 Cobalamin (Vitamin B12) [Mass/Vol] 152 pg/mL Low 180-914 [facility] Comment on above: Performed By: #### L 503.0106, L500.4050, L501.1400, L400.0001, L503.6030, L3000.0800, L100.9950, L3890.6006, L501.5101, L100.0100, L504.2610, L501.5200, L506.0200, L3410.9992, L101.9900, L3100.1350, L3200.1200, L503.6550, L3200.0500, L501.6710 #### [facility] [address] [place], [place], [id number] Vitamin B12 ser/plasOrdered By: Glen Chapman on 05-07-2025 Cobalamin (Vitamin B12) [Mass/Vol] 152 pg/mL Low 180-914 [facility] White blood cell (WBC) count Ordered By: Glen Ari on 05-07-2025 WBC (Bld) [#/Vol] 4.6 10*3/uL 4.4-11.0 [facility] Cardiovascular stress test r eportOrdered By: John Damian on 04-17-2025 Study report [facility] [address] [place] [address] MR#: [id number] Acct: [id number] Name: HEIDI ANDREWS Rep #: [id number] : 1970 55 From: John Damian MD Primary Care: Dr. Red Perez MD Status : REG CLI Referring Dr: Red Perez MD Sex: F C Stress Test Report [...] of 66%. This note was generated with Real[employer]ing[employer] software. It may contain incorrectwords, spelling, and punctuation that were not noted in checking the note beforesigning. 04/17/25928 Date _ John Damian MD CC: Dr. Red Perez MD ~ Date Dictated: 04/17/25925 Date Transcribed: 04/17/25925 [employer]: MARY Smith [facility] Work Phone: Stress Reporton 04-17-2025 Stress Report [facility] [address] [place] [address] MR#: [id number] Acct: [id number] Name: HEIDI ANDREWS Rep #: [id number] : 1970 55 From: John Damian MD Primary Care: Dr. Red Perez MD [facility]: [facility] Referring Dr: Red Perez MD Sex: F C Stress Test Report [...] of 66%. This note was generated with [employer] software. It may contain incorrect words, spelling, and punctuation that were not noted in checking the note before signing. 04/17/25928 Date John Damian MD CC: Dr. Red Perez MD Date Dictated: 04/17/25925 Date Transcribed: 04/17/25925 [employer]: MARY Signed Normal [facility] Absolute lymphocyte countOrd ered By: Red Perez on 03-29-2025 Lymphocytes Auto (Unsp spec) [#/Vol] 0.95 10*3/uL 0.83-4.51 [facility] Absolute neutrophil countOrd ered By: Red Perez on 03-29-2025 Neutrophils (Bld) [#/Vol] 4.6 10*3/uL 2.0-7.7 [facility] Automated lymphocyte count a s percentage of total leukocytesOrdered By: Red Perez on 03-29-2025 Lymphocytes/100 WBC Auto (Unsp spec) 15.0 % Low 19-41 [facility] Basophil percentageOrdered B y: Red Perez on 03-29-2025 Basophils/100 WBC (Bld) 0.3 % 0-1 [facility] Blood polychromasia detectio n by light microscopyOrdered By: Red Perez on 03-29-2025 Polychromasia LM Ql (Bld) 1+ [facility] CBC W/Diff, Automatedon 03-15 Anisocytosis Ql (Bld) 2+ Normal [facility] Comment on above: Performed By: #### L 503.0106, L500.4050, L501.1400, L400.0001, L503.6030, L3000.0800, L100.9950, L3890.6006, L501.5101, L100.0100, L504.2610, L501.5200, L506.0200, L3410.9992, L101.9900, L3100.1350, L3200.1200, L503.6550, L3200.0500, L501.6710 #### [facility] [address] [facility] [place], [address] POLYCHROMASIA 1+ Normal [facility] Comment on above: Performed By: #### L 503.0106, L500.4050, L501.1400, L400.0001, L503.6030, L3000.0800, L100.9950, L3890.6006, L501.5101, L100.0100, L504.2610, L501.5200, L506.0200, L3410.9992, L101.9900, L3100.1350, L3200.1200, L503.6550, L3200.0500, L501.6710 #### [facility] [address] [place], [place], [id number] Eosinophil percentageOrdered By: Red Perez on 03-29-2025 Eosinophils/100 WBC (Bld) 3.9 % 0-5 [facility] Erythrocyte distribution wid th ratioOrdered By: Red Perez on 03-29-2025 Erythrocyte distribution width (RBC) [Ratio] 27.1 % High 11.6-14.6 [facility] Erythrocyte distribution wid th standard deviationOrdered By: Red Perez on 03-29-2025 Erythrocyte distribution width (RBC) [Ratio] 81.7 fl High 35.1-43.9 [facility] Hematocrit Auto (Bld) [Volum e fraction]Ordered By: Red Perez on 03-29-2025 Hematocrit (Bld) [Volume fraction] 31.9 % Low 37-47 [facility] Hemoglobin measurementOrdere d By: Red Perez on 03-29-2025 Hemoglobin (Bld) [Mass/Vol] 9.2 g/dL Low 12.0-15. 0 [facility] Immature granulocytes/100 WB C Auto (Bld)Ordered By: Red Perez on 03-29-2025 Immature granulocytes/100 WBC (Bld) 1.100 % High 0.0-0.9 [facility] Comment on above: IG% - Immature Granu locytes (promyelocytes, myelocytes and metamyelocytes) > 1% indicates that a LEFT SHIFT is Present. Laboratory - Hematology and Cell countsOrdered By: Red Perez on 03-29-2025 Anisocytosis Ql (Bld) 2+ [facility] MCV (mean corpuscular volume ) determinationOrdered By: Red Perez on 03-29-2025 MCV (RBC) [Entitic vol] 84.2 fL 81-99 [facility] Mean corpuscular hemoglobin (MCH) determinationOrdered By: Red Perez on 03-29-2025 MCH (RBC) [Entitic mass] 24.3 pg Low 27.0-32.0 [facility] Mean corpuscular hemoglobin concentration (MCHC) determinationOrdered By: Red Perez on 03-29-2025 MCHC (RBC) [Mass/Vol] 28.8 g/dL Low 32-36 [facility] Mean platelet volume determi nationOrdered By: Red Perez on 03-29-2025 Platelet mean volume (Bld) [Entitic vol] 9.6 fL 6.2-12.0 [facility] Monocyte percentageOrdered B y: Red Perez on 03-29-2025 Monocytes/100 WBC (Bld) 7.1 % 0-10 [facility] Neutrophil percentageOrdered By: Red Perez on 03-29-2025 Neutrophils/100 WBC (Bld) 72.6 % High 47-70 [facility] Nucleated red blood cell per centageOrdered By: Red Perez on 03-29-2025 Nucleated RBC/100 WBC (Bld) [Ratio] 0 % 0-5 [facility] Platelet countOrdered By: Edy Perez on 03-29-2025 Platelets (Bld) [#/Vol] 263 10*3/uL 150-450 [facility] RBC Auto (Bld) [#/Vol]Ordere d By: Red Perez on 03-29-2025 RBC (Bld) [#/Vol] 3.79 10*6/uL Low 4.2-5.4 [facility] White blood cell (WBC) count Ordered By: Red Perez on 03-29-2025 WBC (Bld) [#/Vol] 6.3 10*3/uL 4.4-11.0 [facility] Celiac AB,Comprehensiveon ANTIGLIADIN IGA 2 units Normal 0- [facility] Comment on above: Result Comment: Nega tive 0 - 19 Weak Positive 20 - 30 Moderate to Strong Positive >30 Performed By: #### L 503.0106, L500.4050, L501.1400, L400.0001, L503.6030, L3000.0800, L100.9950, L3890.6006, L501.5101, L100.0100, L504.2610, L501.5200, L506.0200, L3410.9992, L101.9900, L3100.1350, L3200.1200, L503.6550, L3200.0500, L501.6710 #### [facility] Laboratory [address] [place], [address] ANTIGLIADIN IGG 2 units Normal 0-19 [facility] Comment on above: Result Comment: Nega tive 0 - 19 Weak Positive 20 - 30 Moderate to Strong Positive >30 Performed By: #### L 503.0106, L500.4050, L501.1400, L400.0001, L503.6030, L3000.0800, L100.9950, L3890.6006, L501.5101, L100.0100, L504.2610, L501.5200, L506.0200, L3410.9992, L101.9900, L3100.1350, L3200.1200, L503.6550, L3200.0500, L501.6710 #### [facility] [address] [place], [address] ENDOMYSIAL IGA Negative Normal Negative [facility] Comment on above: Performed By: #### L 503.0106, L500.4050, L501.1400, L400.0001, L503.6030, L3000.0800, L100.9950, L3890.6006, L501.5101, L100.0100, L504.2610, L501.5200, L506.0200, L3410.9992, L101.9900, L3100.1350, L3200.1200, L503.6550, L3200.0500, L501.6710 #### [facility] [address] [place], [address] IMMUNOGLOB A QN 57 mg/dL Low 87-352 [facility] Comment on above: Result Comment: Perf ormed at: - [facility] [address] [id number] [employer] Operator: Preston Ashley PhD, Phone: [phone] Performed By: #### L 503.0106, L500.4050, L501.1400, L400.0001, L503.6030, L3000.0800, L100.9950, L3890.6006, L501.5101, L100.0100, L504.2610, L501.5200, L506.0200, L3410.9992, L101.9900, L3100.1350, L3200.1200, L503.6550, L3200.0500, L501.6710 #### [facility] [address] [place], [address] tTG IGA <2 Normal 0-3 [facility] Comment on above: Result Comment: Nega tive 0 - 3 Weak Positive 4 - 10 Positive >10 Tissue Transglutaminase (tTG) has been identified as the endomysial antigen. Studies have demonstr- ated that endomysial IgA antibodies have over 99% specificity for gluten sensitive enteropathy. Performed By: #### L 503.0106, L500.4050, L501.1400, L400.0001, L503.6030, L3000.0800, L100.9950, L3890.6006, L501.5101, L100.0100, L504.2610, L501.5200, L506.0200, L3410.9992, L101.9900, L3100.1350, L3200.1200, L503.6550, L3200.0500, L501.6710 #### [facility] [address] [place], [address] tTG IGG 3 U/mL Normal 0-5 [facility] Comment on above: Result Comment: Nega tive 0 - 5 Weak Positive 6 - 9 Positive >9 Performed By: #### L 503.0106, L500.4050, L501.1400, L400.0001, L503.6030, L3000.0800, L100.9950, L3890.6006, L501.5101, L100.0100, L504.2610, L501.5200, L506.0200, L3410.9992, L101.9900, L3100.1350, L3200.1200, L503.6550, L3200.0500, L501.6710 #### [facility] [address] [place] [place], [address] Folates, (Folic Acid)on 02-14 FOLATES 5.36 ng/mL Normal 4.60-34.80 [facility] Comment on above: Order Comment: ADD O N FROM EARLIER TODAY, THANKSFOLATES AND B12N Performed By: #### L 503.0106, L500.4050, L501.1400, L400.0001, L503.6030, L3000.0800, L100.9950, L3890.6006, L501.5101, L100.0100, L504.2610, L501.5200, L506.0200, L3410.9992, L101.9900, L3100.1350, L3200.1200, L503.6550, L3200.0500, L501.6710 #### [facility] [address] [place], [address] No Panel InformationOrdered By: Glen Chapman on 03-08-2025 Tissue Transglutaminase IgG Ab 3 U/mL 0-5 [facility] Comment on above: Negative 0 - 5 Weak Positive 6 - 9 Positive >9 3 U/mL 0-5 [facility] Oncology Visit Reporton 02-14 Oncology Visit Report [facility] [address] [facility] [address] [place] [address] OFFICE VISIT Date of Service: 03/08/25 0820 MR#: [id number] Acct: [id number] Name: HEIDI ANDREWS Rep #: [id number] : 1970 From: Glen Chapman MD Age/Sex: 55/F Location[place] [facility] [place] Status: Signed HPI Subjective Date of Service 03/08/25 Chief Complaint Referred for Iron deficiency anemia. History of Present Illness 55 y.o.woman presented to PCP with SOB, fatigue, palpitations, she was found to Microcytic anemia with negative stool for occult blood on 03/05/2025. She is referred for management. Feels tired. Colonoscopy in Nov 2022 was negative. [facility] Medical History (Updated 03/08/25 @ 09:09 by [...] spouse current occupational status: employed current occupation: [employer] Smoking Status: Former smoker alcohol intake: never [...] no lymphadenopathy (more content not included)... Normal [facility] Serum tissue transglutaminas e (tTG) IgA antibody assay (units/volume)Ordered By: Glen Chapman on 03-08-2025 tTG IgA Qn (S) <2 U/mL 0-3 [facility] Comment on above: Negative 0 - 3 Weak Positive 4 - 10 Positive >10 Tissue Transglutaminase (tTG) has been identified as the endomysial antigen. Studies have demonstr- ated that endomysial IgA antibodies have over 99% specificity for gluten sensitive enteropathy. Vitamin B12on 03-08-2025 Cobalamin (Vitamin B12) [Mass/Vol] 184 pg/mL Normal 180-914 [facility] Comment on above: Order Comment: ADD O N FROM EARLIER TODAY, THANKSFOLATES AND B12 Performed By: #### L 503.0106, L500.4050, L501.1400, L400.0001, L503.6030, L3000.0800, L100.9950, L3890.6006, L501.5101, L100.0100, L504.2610, L501.5200, L506.0200, L3410.9992, L101.9900, L3100.1350, L3200.1200, L503.6550, L3200.0500, L501.6710 #### [facility] [address] [place] [place], [address] Vitamin B12 ser/plasOrdered By: Glen Chapman on 03-08-2025 Cobalamin (Vitamin B12) [Mass/Vol] 184 pg/mL 180-914 [facility] Ferritinon 03-05-2025 Ferritin [Mass/Vol] 13 ng/mL Low 22-378 [facility] Comment on above: Order Comment: Order Date: 03/02/25Order Info: [id number] - FEOrder Info: [id number] - FERComments: Low iron Performed By: #### L 503.0106, L500.4050, L501.1400, L400.0001, L503.6030, L3000.0800, L100.9950, L3890.6006, L501.5101, L100.0100, L504.2610, L501.5200, L506.0200, L3410.9992, L101.9900, L3100.1350, L3200.1200, L503.6550, L3200.0500, L501.6710 #### [facility] [address] [place], [address] Ironon 03-05-2025 Iron [Mass/Vol] 33 ug/dL Low 50-170 [facility] Comment on above: Order Comment: Order Date: 03/02/25Order Info: [id number] - FEOrder Info: [id number] - FERComments: Low ironLow Iron Performed By: #### L 503.0106, L500.4050, L501.1400, L400.0001, L503.6030, L3000.0800, L100.9950, L3890.6006, L501.5101, L100.0100, L504.2610, L501.5200, L506.0200, L3410.9992, L101.9900, L3100.1350, L3200.1200, L503.6550, L3200.0500, L501.6710 #### [facility] [address] [place], [place], [id number] Iron (Unsp spec) [Mass/Mass] Ordered By: Red Perez on 03-05-2025 Iron [Mass/Vol] 33 ug/dL Low 50-170 [facility] Iron measurement (mass/mass) Ordered By: Red Perez on 03-05-2025 Iron (Unsp spec) [Mass/Mass] 33 ug/dL Low 50-170 [facility] Serum or plasma ferritin darrel surement (mass/volume)Ordered By: Red Perez on 03-05-2025 Ferritin [Mass/Vol] 13 ng/mL Low 22-378 [facility] PROLACTIN 4465on 03-03-2025 PROLACTIN 62.0 ng/mL High 3.6-25.2 [facility] Comment on above: Result Comment: Perf ormed at: - [facility] [id number] [employer] Operator: Preston Ashley PhD, Phone: [phone] Performed By: #### L 503.0106, L500.4050, L501.1400, L400.0001, L503.6030, L3000.0800, L100.9950, L3890.6006, L501.5101, L100.0100, L504.2610, L501.5200, L506.0200, L3410.9992, L101.9900, L3100.1350, L3200.1200, L503.6550, L3200.0500, L501.6710 #### [facility] Laboratory [place], [address] Absolute lymphocyte countOrd ered By: Red Perez on 03-01-2025 Lymphocytes Auto (Unsp spec) [#/Vol] 0.63 10*3/uL Low 0.83-4.51 [facility] Absolute neutrophil countOrd ered By: Red Perez on 03-01-2025 Neutrophils (Bld) [#/Vol] 3.7 10*3/uL 2.0-7.7 [facility] Anion gap in Serum or Plasma Ordered By: Red Perez on 03-01-2025 Anion gap [Moles/Vol] 14 mmol/L 5-15 [facility] Automated lymphocyte count a s percentage of total leukocytesOrdered By: Red Perez on 03-01-2025 Lymphocytes/100 WBC Auto (Unsp spec) 12.6 % Low 19-41 [facility] BUN/creatinine ratioOrdered By: Red Perez on 03-01-2025 Urea nitrogen/Creatinine [Mass ratio] 11.5 mg/mg 10-20 [facility] Basophil percentageOrdered B y: Red Perez on 03-01-2025 Basophils/100 WBC (Bld) 0.4 % 0-1 [facility] Bilirubin, totalOrdered By: Red Perez on 03-01-2025 Bilirubin [Mass/Vol] 0.57 mg/dL 0.00-1.30 [facility] CBC W/Diff, Automatedon 02-13 Anisocytosis Ql (Bld) 2+ Normal [facility] Comment on above: Performed By: #### L 503.0106, L500.4050, L501.1400, L400.0001, L503.6030, L3000.0800, L100.9950, L3890.6006, L501.5101, L100.0100, L504.2610, L501.5200, L506.0200, L3410.9992, L101.9900, L3100.1350, L3200.1200, L503.6550, L3200.0500, L501.6710 #### [facility] [address] [place], [place], [id number] HYPOCHROMASIA 1+ Normal [facility] Comment on above: Performed By: #### L 503.0106, L500.4050, L501.1400, L400.0001, L503.6030, L3000.0800, L100.9950, L3890.6006, L501.5101, L100.0100, L504.2610, L501.5200, L506.0200, L3410.9992, L101.9900, L3100.1350, L3200.1200, L503.6550, L3200.0500, L501.6710 #### [facility] [address] [place], [address] PLT EST ADEQUATE Normal ADEQ [facility] Comment on above: Performed By: #### L 503.0106, L500.4050, L501.1400, L400.0001, L503.6030, L3000.0800, L100.9950, L3890.6006, L501.5101, L100.0100, L504.2610, L501.5200, L506.0200, L3410.9992, L101.9900, L3100.1350, L3200.1200, L503.6550, L3200.0500, L501.6710 #### [facility] [address] [place], [place], [id number] Calculated very low density lipoprotein (VLDL) cholesterol measurementOrdered By: Red Perez on 03-01-2025 Calculated very low density lipoprotein (VLDL) cholesterol measurement 27 mg/dL [facility] VLDL Cholesterol 27 mg/dL [facility] Carbon dioxide, total [Moles /volume] in Central venous bloodOrdered By: Red Perez on 03-01-2025 CO2 [Moles/Vol] 25.1 mmol/L 21.0-32.0 [facility] Chloride assayOrdered By: Edy Perez on 03-01-2025 Chloride [Moles/Vol] 99 mmol/L 98-108 [facility] Comprehensive Metabolic Prof ilon 03-01-2025 Albumin [Mass/Vol] 4.2 g/dL Normal 3.5-5.0 [facility] Comment on above: Order Comment: MADHAVI CTOR TO SPECIFY Performed By: #### L 503.0106, L500.4050, L501.1400, L400.0001, L503.6030, L3000.0800, L100.9950, L3890.6006, L501.5101, L100.0100, L504.2610, L501.5200, L506.0200, L3410.9992, L101.9900, L3100.1350, L3200.1200, L503.6550, L3200.0500, L501.6710 #### [facility] [address] [facility] [place], [address] Albumin/Globulin [Mass ratio] 1.6 {ratio} Normal 0.9-2.4 [facility] Comment on above: Order Comment: MADHAVI CTOR TO SPECIFY Performed By: #### L 503.0106, L500.4050, L501.1400, L400.0001, L503.6030, L3000.0800, L100.9950, L3890.6006, L501.5101, L100.0100, L504.2610, L501.5200, L506.0200, L3410.9992, L101.9900, L3100.1350, L3200.1200, L503.6550, L3200.0500, L501.6710 #### [facility] [address] [place] [place], [address] ALK PHOS 190 U/L High 35-104 [facility] Comment on above: Order Comment: MADHAVI CTOR TO SPECIFY Performed By: #### L 503.0106, L500.4050, L501.1400, L400.0001, L503.6030, L3000.0800, L100.9950, L3890.6006, L501.5101, L100.0100, L504.2610, L501.5200, L506.0200, L3410.9992, L101.9900, L3100.1350, L3200.1200, L503.6550, L3200.0500, L501.6710 #### [facility] Laboratory [address] [facility] [address] [place], [place], [id number] ALT [Catalytic activity/Vol] 67 U/L High <=34 [facility] Comment on above: Order Comment: COLLE CTOR TO SPECIFY Performed By: #### L 503.0106, L500.4050, L501.1400, L400.0001, L503.6030, L3000.0800, L100.9950, L3890.6006, L501.5101, L100.0100, L504.2610, L501.5200, L506.0200, L3410.9992, L101.9900, L3100.1350, L3200.1200, L503.6550, L3200.0500, L501.6710 #### [facility] Laboratory [facility] [place] [place], [address] AST [Catalytic activity/Vol] 86 U/L High <=31 [facility] Comment on above: Order Comment: COLLE CTOR TO SPECIFY Performed By: #### L 503.0106, L500.4050, L501.1400, L400.0001, L503.6030, L3000.0800, L100.9950, L3890.6006, L501.5101, L100.0100, L504.2610, L501.5200, L506.0200, L3410.9992, L101.9900, L3100.1350, L3200.1200, L503.6550, L3200.0500, L501.6710 #### [facility] [address] [facility] [place], [address] Bilirubin [Mass/Vol] 0.57 mg/dL Normal 0.00-1.30 [facility] Comment on above: Order Comment: COLLE CTOR TO SPECIFY Performed By: #### L 503.0106, L500.4050, L501.1400, L400.0001, L503.6030, L3000.0800, L100.9950, L3890.6006, L501.5101, L100.0100, L504.2610, L501.5200, L506.0200, L3410.9992, L101.9900, L3100.1350, L3200.1200, L503.6550, L3200.0500, L501.6710 #### [facility] [address] [facility] [place], [address] BUN/CRE 11.5 RATIO Normal 10-20 [facility] Comment on above: Order Comment: COLLE CTOR TO SPECIFY Performed By: #### L 503.0106, L500.4050, L501.1400, L400.0001, L503.6030, L3000.0800, L100.9950, L3890.6006, L501.5101, L100.0100, L504.2610, L501.5200, L506.0200, L3410.9992, L101.9900, L3100.1350, L3200.1200, L503.6550, L3200.0500, L501.6710 #### [facility] Laboratory [address] [place], [address] Calcium [Mass/Vol] 8.9 mg/dL Normal 7.6-11.0 [facility] Comment on above: Order Comment: COLLE CTOR TO SPECIFY Performed By: #### L 503.0106, L500.4050, L501.1400, L400.0001, L503.6030, L3000.0800, L100.9950, L3890.6006, L501.5101, L100.0100, L504.2610, L501.5200, L506.0200, L3410.9992, L101.9900, L3100.1350, L3200.1200, L503.6550, L3200.0500, L501.6710 #### [facility] [address] [facility] [place], [place], [id number] (619) Chloride [Moles/Vol] 99 mmol/L Normal 98-108 [facility] Comment on above: Order Comment: COLLE CTOR TO SPECIFY Performed By: #### L 503.0106, L500.4050, L501.1400, L400.0001, L503.6030, L3000.0800, L100.9950, L3890.6006, L501.5101, L100.0100, L504.2610, L501.5200, L506.0200, L3410.9992, L101.9900, L3100.1350, L3200.1200, L503.6550, L3200.0500, L501.6710 #### [facility] Laboratory [address] [place], [place], [id number] (674) CO2 [Moles/Vol] 25.1 mmol/L Normal 21.0-32.0 [facility] Comment on above: Order Comment: COLLE CTOR TO SPECIFY Performed By: #### L 503.0106, L500.4050, L501.1400, L400.0001, L503.6030, L3000.0800, L100.9950, L3890.6006, L501.5101, L100.0100, L504.2610, L501.5200, L506.0200, L3410.9992, L101.9900, L3100.1350, L3200.1200, L503.6550, L3200.0500, L501.6710 #### [facility] Laboratory [address] [place], [place], [phone] (558) Creatinine [Mass/Vol] 1.04 mg/dL Normal 0.70-1.20 [facility] Comment on above: Order Comment: COLLE CTOR TO SPECIFY Performed By: #### L 503.0106, L500.4050, L501.1400, L400.0001, L503.6030, L3000.0800, L100.9950, L3890.6006, L501.5101, L100.0100, L504.2610, L501.5200, L506.0200, L3410.9992, L101.9900, L3100.1350, L3200.1200, L503.6550, L3200.0500, L501.6710 #### [facility] Laboratory [address] [place], [place], [id number] GAP 14 Normal 5-15 [facility] Comment on above: Order Comment: MADHAVI CTOR TO SPECIFY Performed By: #### L 503.0106, L500.4050, L501.1400, L400.0001, L503.6030, L3000.0800, L100.9950, L3890.6006, L501.5101, L100.0100, L504.2610, L501.5200, L506.0200, L3410.9992, L101.9900, L3100.1350, L3200.1200, L503.6550, L3200.0500, L501.6710 #### [facility] Laboratory [address] [facility] [facility] [place], [place], [id number] GFR/1.73 sq M.predicted among non-blacks MDRD (S/P/Bld) [Vol rate/Area] 64 mL/min/{1.73_m2} Normal >60 [facility] Comment on above: Order Comment: MADAHVI CTOR TO SPECIFY Result Comment: mL/m in/1.73m2 CKD-EPI Creatinine Equation (2020) Performed By: #### L 503.0106, L500.4050, L501.1400, L400.0001, L503.6030, L3000.0800, L100.9950, L3890.6006, L501.5101, L100.0100, L504.2610, L501.5200, L506.0200, L3410.9992, L101.9900, L3100.1350, L3200.1200, L503.6550, L3200.0500, L501.6710 #### [facility] [address] [place], [address] Globulin (S) [Mass/Vol] 2.6 g/dL Normal 2.2-4.2 [facility] Comment on above: Order Comment: COLLE CTOR TO SPECIFY Performed By: #### L 503.0106, L500.4050, L501.1400, L400.0001, L503.6030, L3000.0800, L100.9950, L3890.6006, L501.5101, L100.0100, L504.2610, L501.5200, L506.0200, L3410.9992, L101.9900, L3100.1350, L3200.1200, L503.6550, L3200.0500, L501.6710 #### [facility] Laboratory [address] [facility] [place], [place], [phone] Glucose [Mass/Vol] 158 mg/dL High 70-99 [facility] Comment on above: Order Comment: COLLE CTOR TO SPECIFY Performed By: #### L 503.0106, L500.4050, L501.1400, L400.0001, L503.6030, L3000.0800, L100.9950, L3890.6006, L501.5101, L100.0100, L504.2610, L501.5200, L506.0200, L3410.9992, L101.9900, L3100.1350, L3200.1200, L503.6550, L3200.0500, L501.6710 #### [facility] [address] [place], [address] Potassium [Moles/Vol] 4.2 mmol/L Normal 3.3-5.1 [facility] Comment on above: Order Comment: COLLE CTOR TO SPECIFY Performed By: #### L 503.0106, L500.4050, L501.1400, L400.0001, L503.6030, L3000.0800, L100.9950, L3890.6006, L501.5101, L100.0100, L504.2610, L501.5200, L506.0200, L3410.9992, L101.9900, L3100.1350, L3200.1200, L503.6550, L3200.0500, L501.6710 #### [facility] [address] [facility] [facility] [place], [place], [id number] (665) Sodium [Moles/Vol] 138 mmol/L Normal 133-145 [facility] Comment on above: Order Comment: MADHAVI CTOR TO SPECIFY Performed By: #### L 503.0106, L500.4050, L501.1400, L400.0001, L503.6030, L3000.0800, L100.9950, L3890.6006, L501.5101, L100.0100, L504.2610, L501.5200, L506.0200, L3410.9992, L101.9900, L3100.1350, L3200.1200, L503.6550, L3200.0500, L501.6710 #### [facility] Laboratory [address] [facility] [place], [place], [id number] (835) T PROT 6.8 g/dL Normal 5.9-8.4 [facility] Comment on above: Order Comment: MADHAVI CTOR TO SPECIFY Performed By: #### L 503.0106, L500.4050, L501.1400, L400.0001, L503.6030, L3000.0800, L100.9950, L3890.6006, L501.5101, L100.0100, L504.2610, L501.5200, L506.0200, L3410.9992, L101.9900, L3100.1350, L3200.1200, L503.6550, L3200.0500, L501.6710 #### [facility] Laboratory [address] [facility] [place], [place], [id number] Urea nitrogen [Mass/Vol] 12 mg/dL Normal 4-19 [facility] Comment on above: Order Comment: COLLE CTOR TO SPECIFY Performed By: #### L 503.0106, L500.4050, L501.1400, L400.0001, L503.6030, L3000.0800, L100.9950, L3890.6006, L501.5101, L100.0100, L504.2610, L501.5200, L506.0200, L3410.9992, L101.9900, L3100.1350, L3200.1200, L503.6550, L3200.0500, L501.6710 #### [facility] Laboratory [address] [place], [place], [id number] Eosinophil percentageOrdered By: Red Perez on 03-01-2025 Eosinophils/100 WBC (Bld) 4.0 % 0-5 [facility] Erythrocyte distribution wid th (RBC) [Ratio]Ordered By: Red Perez on 03-01-2025 Erythrocyte distribution width (RBC) [Entitic vol] 55.5 fL High 35.1-43.9 [facility] Erythrocyte distribution wid th ratioOrdered By: Red Perez on 03-01-2025 Erythrocyte distribution width (RBC) [Ratio] 20.9 % High 11.6-14.6 [facility] Erythrocyte distribution wid th standard deviationOrdered By: Red Perez on 03-01-2025 Erythrocyte distribution width (RBC) [Ratio] 55.5 fl High 35.1-43.9 [facility] GFR/1.73 sq M.predicted sonny g non-blacks MDRD (S/P/Bld) [Vol rate/Area]Ordered By: Red Perez on 03-01-2025 Estimated GFR (MDRD) Non-Af Amer 64 >60 [facility] Comment on above: mL/min/1.73m2 CKD-EP I Creatinine Equation (2020) Glomerular filtration rate ( GFR) estimation/1.73 sq m using serum, plasma, or whole bOrdered By: Red Peerz on 03-01-2025 GFR/1.73 sq M.predicted among non-blacks MDRD (S/P/Bld) [Vol rate/Area] 64 mL/min/{1.73_m2} >60 [facility] Comment on above: mL/min/1.73m2 CKD-EP I Creatinine Equation (2020) Hematocrit Auto (Bld) [Volum e fraction]Ordered By: Red Perez on 03-01-2025 Hematocrit (Bld) [Volume fraction] 26.7 % Low 37-47 [facility] Hemoglobin A1con 03-01-2025 HbA1c (Bld) [Mass fraction] 7.6 % High <=5.6 [facility] Comment on above: Result Comment: Norm al < 5.7 % Prediabetic 5.7 - 6.4 % Diabetic >or= 6.5 % Please note range changes. Performed By: #### L 503.0106, L500.4050, L501.1400, L400.0001, L503.6030, L3000.0800, L100.9950, L3890.6006, L501.5101, L100.0100, L504.2610, L501.5200, L506.0200, L3410.9992, L101.9900, L3100.1350, L3200.1200, L503.6550, L3200.0500, L501.6710 #### [facility] [address] [place], [address] Hemoglobin A1c percentageOrd ered By: Red Perez on 03-01-2025 HbA1c (Bld) [Mass fraction] 7.6 % High <5.7 [facility] Comment on above: Normal < 5.7 % Predi abetic 5.7 - 6.4 % Diabetic >or= 6.5 % Please note range changes. Hemoglobin measurementOrdere d By: Red Perez on 03-01-2025 Hemoglobin (Bld) [Mass/Vol] 7.2 g/dL Low 12.0-15. 0 [facility] Hypochromatic red blood cell detectionOrdered By: Red Perez on 03-01-2025 Hypochromia Ql (Bld) 1+ [facility] Hypochromia Ql (Bld)Ordered By: Red Perez on 03-01-2025 Hypochromasia 1+ [facility] Immature granulocytes/100 WB C Auto (Bld)Ordered By: Red Perez on 03-01-2025 Immature granulocytes/100 WBC (Bld) 1.200 % High 0.0-0.9 [facility] Comment on above: IG% - Immature Granu locytes (promyelocytes, myelocytes and metamyelocytes) > 1% indicates that a LEFT SHIFT is Present. L501.4021on 03-01-2025 Trop T High Sen 14 ng/L Normal <=14 [facility] Comment on above: Order Comment: MADHAVI CTOR TO SPECIFY Performed By: #### L 503.0106, L500.4050, L501.1400, L400.0001, L503.6030, L3000.0800, L100.9950, L3890.6006, L501.5101, L100.0100, L504.2610, L501.5200, L506.0200, L3410.9992, L101.9900, L3100.1350, L3200.1200, L503.6550, L3200.0500, L501.6710 #### [facility] Laboratory [facility] [address] [place], [place], [id number] LDL calc ser/plasOrdered By: Red Perez on 03-01-2025 Cholesterol in LDL [Mass/Vol] 117 mg/dL [facility] Comment on above: Epvpffzjqd=882-847 m g/dL & Higher Awsz=375 mg/dL or greater LDL Cholesterol, Calculated 117 mg/dL [facility] Comment on above: Umfyfgrgtf=660-777 m g/dL & Higher Cjvw=088 mg/dL or greater Laboratory - Chemistry and C hemistry - challengeOrdered By: Red Perez on 03-01-2025 AST [Catalytic activity/Vol] 86 U/L High <32 [facility] Laboratory - Hematology and Cell countsOrdered By: Red Perez on 03-01-2025 Anisocytosis Ql (Bld) 2+ [facility] Lipid Profileon 03-01-2025 CHOL:HDL 3.89 Normal [facility] Comment on above: Order Comment: COLLE CTOR TO SPECIFY Performed By: #### L 503.0106, L500.4050, L501.1400, L400.0001, L503.6030, L3000.0800, L100.9950, L3890.6006, L501.5101, L100.0100, L504.2610, L501.5200, L506.0200, L3410.9992, L101.9900, L3100.1350, L3200.1200, L503.6550, L3200.0500, L501.6710 #### [facility] Laboratory [address] [place], [address] Cholesterol [Mass/Vol] 194 mg/dL Normal <=200 [facility] Comment on above: Order Comment: MADHAVI CTOR TO SPECIFY Result Comment: Chol esterol level, Desirable <200 mg/dL Borderline high cholesterol 200-239 mg/dL High cholesterol >=240 mg/dL Recommendations of the NCEP Adult Treatment Panel for the following risk-cutoff thresholds for the [place] population. Performed By: #### L 503.0106, L500.4050, L501.1400, L400.0001, L503.6030, L3000.0800, L100.9950, L3890.6006, L501.5101, L100.0100, L504.2610, L501.5200, L506.0200, L3410.9992, L101.9900, L3100.1350, L3200.1200, L503.6550, L3200.0500, L501.6710 #### [facility] Laboratory [address] [place] [place], [address] Cholesterol in HDL [Mass/Vol] 50 mg/dL Normal [facility] Comment on above: Order Comment: MADHAVI KAMARA TO SPECIFY Result Comment: Mayda onal Cholesterol Education Program (NCEP) guidelines: <40 mg/dL: Low HDL-cholesterol (major risk factor for CHD) >= 60 mg/dL: High HDL-cholesterol (negative risk factor for CHD) HDL-cholesterol is affected by a number of factors, e.g. smoking, exercise, hormones, sex and age. Performed By: #### L 503.0106, L500.4050, L501.1400, L400.0001, L503.6030, L3000.0800, L100.9950, L3890.6006, L501.5101, L100.0100, L504.2610, L501.5200, L506.0200, L3410.9992, L101.9900, L3100.1350, L3200.1200, L503.6550, L3200.0500, L501.6710 #### [facility] Laboratory [address] [place], [place], [id number] (771) Cholesterol in LDL [Mass/Vol] 117 mg/dL Normal [facility] Comment on above: Order Comment: COLLE CTOR TO SPECIFY Result Comment: Bord rktpfa=734-823 mg/dL Higher Ovfk=968 mg/dL or greater Performed By: #### L 503.0106, L500.4050, L501.1400, L400.0001, L503.6030, L3000.0800, L100.9950, L3890.6006, L501.5101, L100.0100, L504.2610, L501.5200, L506.0200, L3410.9992, L101.9900, L3100.1350, L3200.1200, L503.6550, L3200.0500, L501.6710 #### [facility] Laboratory [address] [place], [place], [id number] (285) Cholesterol in VLDL [Mass/Vol] 27 mg/dL Normal 5-40 [facility] Comment on above: Order Comment: COLLE CTOR TO SPECIFY Performed By: #### L 503.0106, L500.4050, L501.1400, L400.0001, L503.6030, L3000.0800, L100.9950, L3890.6006, L501.5101, L100.0100, L504.2610, L501.5200, L506.0200, L3410.9992, L101.9900, L3100.1350, L3200.1200, L503.6550, L3200.0500, L501.6710 #### [facility] Laboratory [address] [place], [place], [id number] Triglyceride [Mass/Vol] 134 mg/dL Normal [facility] Comment on above: Order Comment: COLLE CTOR TO SPECIFY Result Comment: The drugs N-Acetylcysteine and Metamizole may falsely depress this assay. Normal range: <150 mg/dL Borderline High: 150-199 mg/dL High: 200-499 mg/dL Very High: >500 mg/dL Performed By: #### L 503.0106, L500.4050, L501.1400, L400.0001, L503.6030, L3000.0800, L100.9950, L3890.6006, L501.5101, L100.0100, L504.2610, L501.5200, L506.0200, L3410.9992, L101.9900, L3100.1350, L3200.1200, L503.6550, L3200.0500, L501.6710 #### [facility] Laboratory [address] [place], [place], [id number] Lymphocytes Auto (Unsp spec) [#/Vol]Ordered By: Red Perez on 03-01-2025 Lymphocytes (Bld) [#/Vol] 0.63 10*3/uL Low 0.83-4.5 1 [facility] Lymphocytes/100 WBC Auto (Un sp spec)Ordered By: Red Perez on 03-01-2025 Lymphocytes/100 WBC (Bld) 12.6 % Low 19-41 [facility] MCV (mean corpuscular volume ) determinationOrdered By: Red Perez on 03-01-2025 MCV (RBC) [Entitic vol] 75.4 fL Low 81-99 [facility] Mean corpuscular hemoglobin (MCH) determinationOrdered By: Red Perez on 03-01-2025 MCH (RBC) [Entitic mass] 20.3 pg Low 27.0-32.0 [facility] Mean corpuscular hemoglobin concentration (MCHC) determinationOrdered By: Red Perez on 03-01-2025 MCHC (RBC) [Mass/Vol] 27.0 g/dL Low 32-36 [facility] Mean platelet volume determi nationOrdered By: Red Perez on 03-01-2025 Platelet mean volume (Bld) [Entitic vol] 10.5 fL 6.2-12.0 [facility] Monocyte percentageOrdered B y: Red Perez on 03-01-2025 Monocytes/100 WBC (Bld) 8.0 % 0-10 [facility] Neutrophil percentageOrdered By: Red Perez on 03-01-2025 Neutrophils/100 WBC (Bld) 73.8 % High 47-70 [facility] Nucleated red blood cell per centageOrdered By: Red Perez on 03-01-2025 Nucleated RBC/100 WBC (Bld) [Ratio] 0 % 0-5 [facility] Platelet countOrdered By: Edy Perez on 03-01-2025 Platelet Count See comment 150-450 [facility] Comment on above: Please note: For thi s sample, a platelet estimate is provided rather than a platelet count due to platelet clumping. Other parameters associated with this sample are not affected by platelet clumping. If a more accurate platelet count is required, a redraw of the patient will be necessary. Platelet estimateOrdered By: Red Perez on 03-01-2025 Platelets LM Ql (Bld) ADEQUATE ADEQ [facility] Platelets LM Ql (Bld)Ordered By: Red Perez on 03-01-2025 Platelet Estimate ADEQUATE [facility] Potassium (Unsp spec) [Mass/ Vol]Ordered By: Red Perez on 03-01-2025 Potassium [Moles/Vol] 4.2 mmol/L 3.3-5.1 [facility] Potassium measurement (mass/ volume)Ordered By: Red Perez on 03-01-2025 Potassium (Unsp spec) [Mass/Vol] 4.2 mmol/L 3.3-5.1 [facility] Prolactin [Mass/Vol]Ordered By: Red Perez on 03-01-2025 Prolactin 62.0 ng/mL High 3.6-25.2 [facility] Comment on above: Performed at: [place] [address] [place], [place] [id number] Director: Preston Ashley PhD, Phone: [phone] RBC Auto (Bld) [#/Vol]Ordere d By: Red Perez on 03-01-2025 RBC (Bld) [#/Vol] 3.54 10*6/uL Low 4.2-5.4 [facility] Screening total cholesterol/ high density lipoprotein (HDL) cholesterol ratioOrdered By: Red Perez on 03-01-2025 Cholesterol.total/Cholester ol in HDL [Mass ratio] 3.89 {ratio} [facility] Serum creatinine measurement (mass/volume)Ordered By: Red Perez on 03-01-2025 Creatinine [Mass/Vol] 1.04 mg/dL 0.70-1.20 [facility] Serum globulin measurementOr dered By: Red Perez on 03-01-2025 Globulin (S) [Mass/Vol] 2.6 g/dL 2.2-4.2 [facility] Serum glucose measurement (m ass/volume)Ordered By: Red Perez on 03-01-2025 Glucose [Mass/Vol] 158 mg/dL High 70-99 [facility] Serum or plasma alanine cueto otransferase (ALT) measurementOrdered By: Red Perez on 03-01-2025 ALT [Catalytic activity/Vol] 67 U/L High <35 [facility] Serum or plasma albumin sandy urement (mass/volume)Ordered By: Red Perez on 03-01-2025 Albumin [Mass/Vol] 4.2 g/dL 3.5-5.0 [facility] Serum or plasma albumin/glob ulin mass ratioOrdered By: Red Perez on 03-01-2025 Albumin/Globulin [Mass ratio] 1.6 {ratio} 0.9-2.4 [facility] Serum or plasma alkaline rebecca sphatase measurementOrdered By: Red Perez on 03-01-2025 ALP [Catalytic activity/Vol] 190 U/L High 35-104 [facility] Serum or plasma calcium sandy urement (mass/volume)Ordered By: Red Perez on 03-01-2025 Calcium [Mass/Vol] 8.9 mg/dL 7.6-11.0 [facility] Serum or plasma cholesterol in HDL measurement (mass/volume)Ordered By: Red Perez on 03-01-2025 Cholesterol in HDL [Mass/Vol] 50 mg/dL >40 [facility] Comment on above: National Cholesterol Education Program (NCEP) guidelines:<40 mg/dL: Low HDL-cholesterol (major risk factor for CHD)>= 60 mg/dL: High HDL-cholesterol (negative risk factor for CHD)HDL-cholesterol is affected by a number of factors, e.g. smoking, exercise, hormones, sex and age. Serum or plasma cholesterol measurement (mass/volume)Ordered By: Red Perez on 03-01-2025 Cholesterol [Mass/Vol] 194 mg/dL <201 [facility] Comment on above: Cholesterol level, D esirable <200 mg/dLBorderline high cholesterol 200-239 mg/dLHigh cholesterol >=240 mg/dLRecommendations of the NCEP Adult Treatment Panel for the following risk-cutoff thresholds for the [place] population. Serum or plasma prolactin me asurement (mass/volume)Ordered By: Red Perez on 03-01-2025 Prolactin [Mass/Vol] 62.0 ng/mL High 3.6-25.2 [facility] Comment on above: Performed at: [address] Director: Preston Ashley PhD, Phone: [phone] Serum or plasma urea nitroge n measurement (mass/volume)Ordered By: Red Perez on 03-01-2025 Urea nitrogen [Mass/Vol] 12 mg/dL 4-19 [facility] Sodium levelOrdered By: Red Perez on 03-01-2025 Sodium [Moles/Vol] 138 mmol/L 133-145 [facility] Total proteinOrdered By: Senait Perez on 03-01-2025 Protein [Mass/Vol] 6.8 g/dL 5.9-8.4 [facility] Triglycerides measurementOrd ered By: Red Perez on 03-01-2025 Triglyceride [Mass/Vol] 134 mg/dL <199 [facility] Comment on above: The drugs N-Acetylcy steine and Metamizole may falsely depress this assay. Normal range: <150 mg/dLBorderline High: 150-199 mg/dLHigh: 200-499 mg/dLVery High: >500 mg/dL Troponin T.cardiac High sens itivity method [Mass/Vol]Ordered By: Red Perez on 03-01-2025 Troponin T High Sensitivity 14 ng/L <14 [facility] Troponin T.cardiac [Mass/vol ume] in Serum or Plasma by High sensitivity methodOrdered By: Red Perez on 03-01-2025 Troponin T.cardiac High sensitivity method [Mass/Vol] 14 ng/L <14 [facility] White blood cell (WBC) count Ordered By: Red Perez on 03-01-2025 WBC (Bld) [#/Vol] 5.0 10*3/uL 4.4-11.0 [facility] Urgent Care Visit Reporton 1 12-08-2023 Urgent Care Visit Report [facility] [address], [address] [place] [address] OFFICE VISIT Date of Service: 10/08/24 MR#: [id number] Acct: [id number] Name: HEIDI ANDREWS Rep #: [id number] : 1970 Provider: DELLIAH hansen Age/Sex: 54/F Location: [facility] Status: Signed Intake Vital Signs 12/01/22 09:27 [...] (Updated 10/08/24 @ 08:54 by Enrique Hwang MILK DELIVERY DRIVER, MILK DELIVERY DRIVER-C) Wears glasses Thyroid disease Diabetes Anemia Former [...] moist mu (more content not included)... Normal [facility] Cervical or vagninal specime n microscopic examination by cytology stain (reported asOrdered By: Patricia Thompson on 02-07-2024 Cytology report Cyto stain Doc (Cvx/Vag) Comment . [facility] Comment on above: The Pap smear is [...] 33,Ordered By: Patricia Thompson on 02-07-2024 HPV 16+18+31+33+35+39+45+51+52+ 56+58+59+66+68 DNA Probe+sig amp Ql (Cvx) Negative Negative [facility] Comment on above: This nucleic acid am plification test detects fourteen high-risk HPV types (16,18,31,33,35,39,45,51,52,56,58,59,66,68)without differentiation.Performed at: - [facility] [id number] Director: Cierra Chew MD, Phone: [phone] at: =G - [facility] [id number] Director: Cierra Chew MD, Phone: [phone] Laboratory - CytologyOrdered By: Patricia Thompson on 02-07-2024 Machine Repairer Cyto stain Nom (Cvx/Vag) [ID] Comment . [facility] Comment on above: Pema Kincaid, Cyto technologist (ASCP) Laboratory - Miscellaneous t estsOrdered By: Patricia Thompson on 02-07-2024 Service comment (Unsp spec) [Interp] . . [facility] Thin prep Papanicolaou smear with manual screeningOrdered By: Patricia Thompson on 02-07-2024 Thin prep Papanicolaou smear with manual screening Comment . [facility] Comment on above: NEGATIVE FOR INTRAEP ITHELIAL LESION OR MALIGNANCY. This liquid based Th inPrep(R) pap test was screened withthe use of an image guided system. Basophil percentageOrdered B y: Red Perez on 01-19-2024 Chloride [Moles/Vol] 104 mmol/L 98-107 [facility] Cholesterol [Mass/Vol] 197 mg/dL <200 [facility] Comment on above: <200 mg/dL Desirable 200-240 mg/dL Borderline >240 mg/dL High Risk Glucose [Mass/Vol] 108 mg/dL 74-106 [facility] Comment on above: Fasting Glucose resu lt from 100 to 125 mg/dL suggests IMPAIRED HOMEOSTASIS per A.D.A. criteria. Potassium [Moles/Vol] 4.2 mmol/L 3.5-5.1 [facility] Sodium [Moles/Vol] 136 mmol/L 136-145 [facility] Triglyceride [Mass/Vol] 132 mg/dL <199 [facility] Comment on above: The drugs N-Acetylcy steine and Metamizole may falsely depress this assay.Serum Triglycerides Reference Interval Normal <150 mg/dL Borderline high 150 - 199 mg/dL High 200 - 499 mg/dL Very High > or = 500 mg/dL Laboratory - Chemistry and C hemistry - challengeOrdered By: Red Perez on 01-19-2024 Cholesterol in HDL [Mass/Vol] 43 mg/dL >40 [facility] Comment on above: The drugs N-Acetylcy steine and Metamizole may falsely depress this assay. Reference Range HDL <40 mg/dL Low HDL Cholesterol HDL >or= 60 mg/dL High HDL Cholesterol Cholesterol in LDL [Mass/Vol] 128 mg/dL 0-130 [facility] CO2 [Moles/Vol] 27.0 mmol/L 21.0-32.0 [facility] Urea nitrogen/Creatinine [Mass ratio] 10.7 mg/mg 10-20 [facility] No Panel InformationOrdered By: Red Perez on 01-19-2024 Estimated GFR (MDRD) Amer 81 mL/min >60 [facility] Comment on above: GFR Calc Estimated GFR (MDRD) Non-Af Amer 67 mL/min >60 [facility] Comment on above: Non- GFR Calc Free Triiodothyronine (T3) pg/dL 2.0 pg/mL 2.18-3.98 [facility] VLDL Cholesterol 26 mg/dL 5-40 [facility] Serum or plasma calcium sandy urement (mass/volume)Ordered By: Red Perez on 01-19-2024 Calcium [Mass/Vol] 8.9 mg/dL 8.5-10.1 [facility] Serum or plasma creatinine m easurement (mass/volume)Ordered By: Red Perez on 01-19-2024 Creatinine [Mass/Vol] 0.93 mg/dL 0.55-1.02 [facility] Comment on above: The validity of the calculated GFR & GFRAA in patients over 70 years has not been determined. Clinical correlation is essential. Serum or plasma thyroid stim ulating hormone (TSH) measurement (units/volume)Ordered By: Red Perez on 01-19-2024 TSH Qn 2.60 uIU/mL 0.358-3.74 [facility] Serum or plasma urea nitroge n measurement (mass/volume)Ordered By: Red Perez on 01-19-2024 Urea nitrogen [Mass/Vol] 10 mg/dL 7-18 [facility] Thin prep Papanicolaou smear with manual screeningOrdered By: Red Perez on 01-19-2024 Thin prep Papanicolaou smear with manual screening 5 5-15 [facility] Thin prep Papanicolaou smear with manual screening 1.33 ng/dL 0.76-1.46 [facility] Basophil percentageOrdered B y: Red Perez on 07-26-2023 Chloride [Moles/Vol] 104 mmol/L 98-107 [facility] Cholesterol [Mass/Vol] 186 mg/dL <200 [facility] Comment on above: <200 mg/dL Desirable 200-240 mg/dL Borderline >240 mg/dL High Risk Glucose [Mass/Vol] 121 mg/dL 74-106 [facility] Comment on above: Fasting Glucose resu lt from 100 to 125 mg/dL suggests IMPAIRED HOMEOSTASIS per A.D.A. criteria. Potassium [Moles/Vol] 3.8 mmol/L 3.5-5.1 [facility] Sodium [Moles/Vol] 139 mmol/L 136-145 [facility] Triglyceride [Mass/Vol] 198 mg/dL <199 [facility] Comment on above: The drugs N-Acetylcy steine and Metamizole may falsely depress this assay.Serum Triglycerides Reference Interval Normal <150 mg/dL Borderline high 150 - 199 mg/dL High 200 - 499 mg/dL Very High > or = 500 mg/dL Laboratory - Chemistry and C hemistry - challengeOrdered By: Red Perez on 07-26-2023 CO2 [Moles/Vol] 27.0 mmol/L 21.0-32.0 [facility] Urea nitrogen/Creatinine [Mass ratio] 10.4 mg/mg 10-20 [facility] No Panel InformationOrdered By: Red Perez on 07-26-2023 Estimated GFR (MDRD) Amer 79 mL/min >60 [facility] Comment on above: GFR Calc Estimated GFR (MDRD) Non-Af Amer 65 mL/min >60 [facility] Comment on above: Non- GFR Calc Thyroid Stimulating Hormone (TSH) 1.67 uIU/mL 0.358-3.74 [facility] Serum or plasma calcium sandy urement (mass/volume)Ordered By: Red Perez on 07-26-2023 Calcium [Mass/Vol] 8.8 mg/dL 8.5-10.1 [facility] Serum or plasma cholesterol in HDL measurement (mass/volume)Ordered By: Red Perez on 07-26-2023 Cholesterol in HDL [Mass/Vol] 36 mg/dL >40 [facility] Comment on above: The drugs N-Acetylcy steine and Metamizole may falsely depress this assay. Reference Range HDL <40 mg/dL Low HDL Cholesterol HDL >or= 60 mg/dL High HDL Cholesterol Serum or plasma cholesterol in VLDL measurement (mass/volume)Ordered By: Red Perez on 07-26-2023 Cholesterol in VLDL [Mass/Vol] 40 mg/dL 5-40 [facility] Serum or plasma creatinine m easurement (mass/volume)Ordered By: Red Perez on 07-26-2023 Creatinine [Mass/Vol] 0.96 mg/dL 0.55-1.02 [facility] Comment on above: The validity of the calculated GFR & GFRAA in patients over 70 years has not been determined. Clinical correlation is essential. Serum or plasma low density lipoprotein (LDL) cholesterol measurement (mass/volume)Ordered By: Red Perez on 07-26-2023 Cholesterol in LDL [Mass/Vol] 110 mg/dL 0-130 [facility] Serum or plasma urea nitroge n measurement (mass/volume)Ordered By: Red Perez on 07-26-2023 Urea nitrogen [Mass/Vol] 10 mg/dL 7-18 [facility] Thin prep Papanicolaou smear with manual screeningOrdered By: Red Perez on 07-26-2023 Thin prep Papanicolaou smear with manual screening 8 5-15 [facility] Whole blood hemoglobin A1c/t otal hemoglobin ratio (mass fraction)Ordered By: Red Perez on 07-26-2023 HbA1c (Bld) [Mass fraction] 5.6 % 3.8-5.6 [facility] Comment on above: Normal < 5.7 % Predi abetic 5.7 - 6.4 % Diabetic >or= 6.5 % Please note range changes. Basophil percentageOrdered B y: Dr. Perez on 01-25-2023 Chloride [Moles/Vol] 105 mmol/L 98-107 [facility] Cholesterol [Mass/Vol] 194 mg/dL <200 [facility] Comment on above: <200 mg/dL Desirable 200-240 mg/dL Borderline >240 mg/dL High Risk Glucose [Mass/Vol] 123 mg/dL 74-106 [facility] Comment on above: Fasting Glucose resu lt from 100 to 125 mg/dL suggests IMPAIRED HOMEOSTASIS per A.D.A. criteria. Potassium [Moles/Vol] 3.6 mmol/L 3.5-5.1 [facility] Sodium [Moles/Vol] 140 mmol/L 136-145 [facility] Triglyceride [Mass/Vol] 166 mg/dL <199 [facility] Comment on above: The drugs N-Acetylcy steine and Metamizole may falsely depress this assay.Serum Triglycerides Reference Interval Normal <150 mg/dL Borderline high 150 - 199 mg/dL High 200 - 499 mg/dL Very High > or = 500 mg/dL Laboratory - Chemistry and C hemistry - challengeOrdered By: Dr. Perez on 01-25-2023 CO2 [Moles/Vol] 25.0 mmol/L 21.0-32.0 [facility] Free T4 [Mass/Vol] 1.31 ng/dL 0.76-1.46 [facility] Urea nitrogen/Creatinine [Mass ratio] 12.0 mg/mg 10-20 [facility] No Panel InformationOrdered By: Dr. Perez on 01-25-2023 Estimated GFR (MDRD) Amer 58 mL/min >60 [facility] Comment on above: GFR Calc Estimated GFR (MDRD) Non-Af Amer 48 mL/min >60 [facility] Comment on above: Non- GFR Calc Free Triiodothyronine (T3) pg/dL 1.5 pg/mL 2.18-3.98 [facility] Thyroid Stimulating Hormone (TSH) 1.52 uIU/mL 0.358-3.74 [facility] Serum or plasma calcium sandy urement (mass/volume)Ordered By: Dr. Perez on 01-25-2023 Calcium [Mass/Vol] 9.5 mg/dL 8.5-10.1 [facility] Serum or plasma cholesterol in HDL measurement (mass/volume)Ordered By: Dr. Perez on 01-25-2023 Cholesterol in HDL [Mass/Vol] 39 mg/dL >40 [facility] Comment on above: The drugs N-Acetylcy steine and Metamizole may falsely depress this assay. Reference Range HDL <40 mg/dL Low HDL Cholesterol HDL >or= 60 mg/dL High HDL Cholesterol Serum or plasma cholesterol in VLDL measurement (mass/volume)Ordered By: Dr. Perez on 01-25-2023 Cholesterol in VLDL [Mass/Vol] 33 mg/dL 5-40 [facility] Serum or plasma creatinine m easurement (mass/volume)Ordered By: Dr. Perez on 01-25-2023 Creatinine [Mass/Vol] 1.25 mg/dL 0.55-1.02 [facility] Comment on above: The validity of the calculated GFR & GFRAA in patients over 70 years has not been determined. Clinical correlation is essential. Serum or plasma low density lipoprotein (LDL) cholesterol measurement (mass/volume)Ordered By: Dr. Perez on 01-25-2023 Cholesterol in LDL [Mass/Vol] 122 mg/dL 0-130 [facility] Serum or plasma urea nitroge n measurement (mass/volume)Ordered By: Dr. Perez on 01-25-2023 Urea nitrogen [Mass/Vol] 15 mg/dL 7-18 [facility] Thin prep Papanicolaou smear with manual screeningOrdered By: Dr. Perez on 01-25-2023 Thin prep Papanicolaou smear with manual screening 10 5-15 [facility] Glucose Glucometer (BldC) [M ass/Vol]Ordered By: Dr. Marie on 12-01-2022 Glucose [Mass/Vol] 147 mg/dL 74-106 [facility] Comment on above: MANAGEMENT OF PATIEN T CARE PER NURSING PROTOCOL Basophil percentageon 2021 Chloride [Moles/Vol] 107 mmol/L 98-107 [facility] Work Phone: Cholesterol [Mass/Vol] 175 mg/dL <200 [facility] Work Phone: Comment on above: <200 mg/dL Desirable 200-240 mg/dL Borderline >240 mg/dL High Risk Glucose [Mass/Vol] 117 mg/dL 74-106 [facility] Work Phone: Comment on above: Fasting Glucose resu lt from 100 to 125 mg/dL suggests IMPAIRED HOMEOSTASIS per A.D.A. criteria. Potassium [Moles/Vol] 4.0 mmol/L 3.5-5.1 [facility] Work Phone: Sodium [Moles/Vol] 140 mmol/L 136-145 [facility] Work Phone: Triglyceride [Mass/Vol] 141 mg/dL <199 [facility] Work Phone: Comment on above: The drugs N-Acetylcy steine and Metamizole may falsely depress this assay.Serum Triglycerides Reference Interval Normal <150 mg/dL Borderline high 150 - 199 mg/dL High 200 - 499 mg/dL Very High > or = 500 mg/dL Laboratory - Chemistry and C hemistry - challengeon 07-27-2022 CO2 [Moles/Vol] 23.0 mmol/L 21.0-32.0 [facility] Work Phone: Free T4 [Mass/Vol] 1.26 ng/dL 0.76-1.46 [facility] Work Phone: Urea nitrogen/Creatinine [Mass ratio] 9.6 mg/mg 10-20 [facility] Work Phone: No Panel Informationon 07-27 Estimated GFR (MDRD) Amer 72 mL/min >60 [facility] Work Phone: Comment on above: GFR Calc Estimated GFR (MDRD) Non-Af Amer 60 mL/min >60 [facility] Work Phone: Comment on above: Non- GFR Calc Free Triiodothyronine (T3) pg/dL 2.0 pg/mL 2.18-3.98 [facility] Work Phone: Thyroid Stimulating Hormone (TSH) 1.24 uIU/mL 0.358-3.74 [facility] Work Phone: Serum or plasma calcium sandy urement (mass/volume)on 07-27-2022 Calcium [Mass/Vol] 9.1 mg/dL 8.5-10.1 [facility] Work Phone: Serum or plasma cholesterol in HDL measurement (mass/volume)on 07-27-2022 Cholesterol in HDL [Mass/Vol] 41 mg/dL >40 [facility] Work Phone: Comment on above: The drugs N-Acetylcy steine and Metamizole may falsely depress this assay. Reference Range HDL <40 mg/dL Low HDL Cholesterol HDL >or= 60 mg/dL High HDL Cholesterol Serum or plasma cholesterol in VLDL measurement (mass/volume)on 07-27-2022 Cholesterol in VLDL [Mass/Vol] 28 mg/dL 5-40 [facility] Work Phone: Serum or plasma creatinine m easurement (mass/volume)on 07-27-2022 Creatinine [Mass/Vol] 1.04 mg/dL 0.55-1.02 [facility] Work Phone: Comment on above: The validity of the calculated GFR & GFRAA in patients over 70 years has not been determined. Clinical correlation is essential. Serum or plasma low density lipoprotein (LDL) cholesterol measurement (mass/volume)on 07-27-2022 Cholesterol in LDL [Mass/Vol] 106 mg/dL 0-130 [facility] Work Phone: Serum or plasma urea nitroge n measurement (mass/volume)on 07-27-2022 Urea nitrogen [Mass/Vol] 10 mg/dL 7-18 [facility] Work Phone: Thin prep Papanicolaou smear with manual screeningon 07-27-2022 Thin prep Papanicolaou smear with manual screening 10 5-[address] [facility] Work Phone: Culture, urineon 04-22-2022 Bacteria identified Cx Nom (U) Escherichia coli [facility] Work Phone: Basophil percentageon 2021 Basophil percentage 5-10 SEEN /hpf [facility] Work Phone: Chloride [Moles/Vol] 104 mmol/L 98-107 [facility] Work Phone: Cholesterol [Mass/Vol] 194 mg/dL <200 [facility] Work Phone: Comment on above: <200 mg/dL Desirable 200-240 mg/dL Borderline >240 mg/dL High Risk Glucose [Mass/Vol] 105 mg/dL 74-106 [facility] Work Phone: Comment on above: Fasting Glucose resu lt from 100 to 125 mg/dL suggests IMPAIRED HOMEOSTASIS per A.D.A. criteria. Potassium [Moles/Vol] 4.3 mmol/L 3.5-5.1 [facility] Work Phone: Sodium [Moles/Vol] 137 mmol/L 136-145 [facility] Work Phone: Triglyceride [Mass/Vol] 191 mg/dL [facility] Work Phone: Comment on above: The drugs N-Acetylcy steine and Metamizole may falsely depress this assay.Serum Triglycerides Reference Interval Normal <150 mg/dL Borderline high 150 - 199 mg/dL High 200 - 499 mg/dL Very High > or = 500 mg/dL Bilirubin Test strip Ql (U)o n 01-26-2022 Bilirubin Ql (U) Negative Negative [facility] Work Phone: Ketones Test strip Ql (U)on 01-26-2022 Ketones Ql (U) Negative Negative [facility] Work Phone: Laboratory - Chemistry and C hemistry - challengeon 01-26-2022 CO2 [Moles/Vol] 24.0 mmol/L 21.0-32.0 [facility] Work Phone: Free T4 [Mass/Vol] 1.36 ng/dL 0.76-1.46 [facility] Work Phone: Urea nitrogen/Creatinine [Mass ratio] 13.0 mg/mg 10-20 [facility] Work Phone: Mucus LM Ql (Urine sed)on Mucus Ql (Urine sed) 0 [facility]: Nitrite Test strip Ql (U)on 01-26-2022 Nitrite Ql (U) Negative Negative [facility] Work Phone: No Panel Informationon 01-26 Estimated GFR (MDRD) Amer 59 mL/min >60 [facility] Work Phone: Comment on above: GFR Calc Estimated GFR (MDRD) Non-Af Amer 49 mL/min >60 [facility] Work Phone: Comment on above: Non- GFR Calc Free Triiodothyronine (T3) pg/dL 1.7 pg/mL 2.18-3.98 [facility] Work Phone: Thyroid Stimulating Hormone (TSH) 3.39 uIU/mL 0.358-3.74 [facility] Work Phone: Protein Test strip Ql (U)on 01-26-2022 Protein Ql (U) 30 mg/dl Negative [facility] Work Phone: Serum or plasma calcium sandy urement (mass/volume)on 01-26-2022 Calcium [Mass/Vol] 9.5 mg/dL 8.5-10.1 [facility] Work Phone: Serum or plasma cholesterol in HDL measurement (mass/volume)on 01-26-2022 Cholesterol in HDL [Mass/Vol] 33 mg/dL [facility] Work Phone: Comment on above: The drugs N-Acetylcy steine and Metamizole may falsely depress this assay. Reference Range HDL <40 mg/dL Low HDL Cholesterol HDL >or= 60 mg/dL High HDL Cholesterol Serum or plasma cholesterol in VLDL measurement (mass/volume)on 01-26-2022 Cholesterol in VLDL [Mass/Vol] 38 mg/dL 5-40 [facility] Work Phone: Serum or plasma creatinine m easurement (mass/volume)on 01-26-2022 Creatinine [Mass/Vol] 1.23 mg/dL 0.55-1.02 [facility] Work Phone: Comment on above: The validity of the calculated GFR & GFRAA in patients over 70 years has not been determined. Clinical correlation is essential. Serum or plasma low density lipoprotein (LDL) cholesterol measurement (mass/volume)on 01-26-2022 Cholesterol in LDL [Mass/Vol] 123 mg/dL 0-130 [facility] Work Phone: Serum or plasma urea nitroge n measurement (mass/volume)on 01-26-2022 Urea nitrogen [Mass/Vol] 16 mg/dL 7-18 [facility] Work Phone: Squamous epithelial cells de tection in urine sediment by light microscopyon 01-26-2022 Epithelial cells.squamous LM Ql (Urine sed) 5-10 SEEN /hpf [facility] Work Phone: Thin prep Papanicolaou smear with manual screeningon 01-26-2022 Thin prep Papanicolaou smear with manual screening 9 5-15 [facility] Work Phone: Urine blood detectionon 01-13 RBC Ql (U) Negative Negative [facility] Work Phone: RBC Ql (U) 0 SEEN /hpf [facility] Work Phone: Urine clarityon 01-26-2022 Clarity (U) Clear Clear [facility] Work Phone: Urine color determinationon 01-26-2022 Color (U) Yellow Yellow [facility] Work Phone: Urine glucose detectionon Glucose Ql (U) Normal mg/dl Normal [facility] Work Phone: Urine leukocyte esterase det ection by dipstickon 01-26-2022 Leukocyte esterase Test strip Ql (U) 500 /ul Negative [facility] Work Phone: Urine pHon 01-26-2022 pH (U) 6.0 [pH] [facility] Work Phone: Urine sediment bacteria coun t by microscopy (number/high power field)on 01-26-2022 Bacteria LM.HPF (Urine sed) [#/Area] 0 /[HPF] None Seen [facility] Work Phone: Urine specific gravity measu rementon 01-26-2022 Specific gravity (U) [Rel density] 1.015 [facility] Work Phone: Urobilinogen Auto test strip Ql (U)on 01-26-2022 Urobilinogen Ql (U) Normal mg/dl Normal [facility] Work Phone: Culture, urine Bacteria identified Cx Nom (U) Escherichia coli [facility] Work Phone: Vital Signs Date Time Vital Sign Value Performing Clinician Faci lity 09-03-2025 15:15-0400 Body temperature 97.4 [degF] Dr. Red Perez MD Work Phone: [facility] 09-03-2025 15:15-0400 Diastolic blood pressure 86 mm[Hg] Dr. Red Perez MD Work Phone: [facility] 09-03-2025 15:15-0400 Heart rate 111 /min Dr. Red Perez MD Work Phone: [facility] 09-03-2025 15:15-0400 Respiratory rate 15 /min Dr. Red Perez MD Work Phone: [facility] 09-03-2025 15:15-0400 SaO2% (BldA) [Mass fraction] 99 % Dr. Red Perez MD Work Phone: [facility] 09-03-2025 15:15-0400 Systolic blood pressure 139 mm[Hg] Dr. Red Perez MD Work Phone: [facility] 08-31-2025 14:14-0400 Body height 167.[address] Red Perez MD Work Phone: 5(882)115-625187 [place] [address] 08-31-2025 14:14-0400 Body weight [address] Red Perez MD Work Phone: 7(001)390-452765 [place] [address] 08-31-2025 13:27-0400 Body mass index (BMI) [Ratio] 33.4 kg/m2 Dr. Red Perez MD Work Phone: 1(006)049-599765 [place] [address] 08-27-2025 11:22-0400 Body mass index (BMI) [Ratio] 36.1 kg/m2 Dr. Red Perez MD Work Phone: 3(006)761-616465 [place] [address] 08-27-2025 11:22-0400 Body temperature 97 [degF] Dr. Red Perez MD Work Phone: 2(668)950-937865 [place] [address] 08-27-2025 11:22-0400 Body weight 101.[address] Red Perez MD Work Phone: 9(502)107-247465 [place] [address] 08-27-2025 11:22-0400 Diastolic blood pressure 72 mm[Hg] Dr. Red Perez MD Work Phone: 8(358)206-148265 [place] [address] 08-27-2025 11:22-0400 Heart rate 82 /min Dr. Red Perez MD Work Phone: 4(192)204-351665 [place] [address] 08-27-2025 11:22-0400 Respiratory rate 18 /min Dr. Red Perez MD Work Phone: 1(009)991-109965 [place] [address] 08-27-2025 11:22-0400 SaO2% (BldA) [Mass fraction] 99 % Dr. Red Perez MD Work Phone: 9(912)424-777265 [place] [address] 08-27-2025 11:22-0400 Systolic blood pressure 98 mm[Hg] Dr. Red Perez MD Work Phone: 6(290)573-639665 [place] [address] 06-04-2025 11:10-0400 Body height 167.[address] Red Perez MD Work Phone: 5(669)653-358265 [place] [address] 06-04-2025 11:10-0400 Body mass index (BMI) [Ratio] 43.4 kg/m2 Dr. Red Perez MD Work Phone: 2(155)525-634087 [place] [address] 06-04-2025 11:10-0400 Body temperature 97.6 [degF] Dr. Red Perez MD Work Phone: 2(286)106-860165 [place] [address] 06-04-2025 11:10-0400 Body weight 122.[address] Red Perez MD Work Phone: 2(697)384-771265 [place] [address] 06-04-2025 11:10-0400 Diastolic blood pressure 71 mm[Hg] Dr. Red Perez MD Work Phone: 1(183)565-207865 [place] [address] 06-04-2025 11:10-0400 Heart rate 78 /min Dr. Red Perez MD Work Phone: 8(253)451-118965 [place] [address] 06-04-2025 11:10-0400 Respiratory rate 18 /min Dr. Red Perez MD Work Phone: 2(969)972-540765 [place] [address] 06-04-2025 11:10-0400 SaO2% (BldA) [Mass fraction] 96 % Dr. Red Perez MD Work Phone: 1(478)181-088165 [place] [address] 06-04-2025 11:10-0400 Systolic blood pressure 121 mm[Hg] Dr. Red Perez MD Work Phone: 1(266)254-257565 [place] [address] 05-07-2025 08:27-0400 Body height 167.[address] Red Perez MD Work Phone: 9(961)011-074565 [place] [address] 05-07-2025 08:27-0400 Body mass index (BMI) [Ratio] 43.5 kg/m2 Dr. Red Perez MD Work Phone: 8(815)245-766565 [place] [address] 05-07-2025 08:27-0400 Body temperature 98 [degF] Dr. Red Perez MD Work Phone: 7(421)933-870665 [place] [address] 05-07-2025 08:27-0400 Body weight 122.[address] Red Perez MD Work Phone: 4(204)119-129365 [place] [address] 05-07-2025 08:27-0400 Diastolic blood pressure 82 mm[Hg] Dr. Red Perez MD Work Phone: [facility] 05-07-2025 08:27-0400 Heart rate 75 /min Dr. Red Perez MD Work Phone: [facility] 05-07-2025 08:27-0400 Respiratory rate 18 /min Dr. Red Perez MD Work Phone: [facility] 05-07-2025 08:27-0400 SaO2% (BldA) [Mass fraction] 96 % Dr. Red Perez MD Work Phone: [facility] 05-07-2025 08:27-0400 Systolic blood pressure 132 mm[Hg] Dr. Red Perez MD Work Phone: 6(978)276-019090 [address] 03-29-2025 10:18-0400 Diastolic blood pressure 51 mm[Hg] Dr. Red Perez MD Work Phone: 7(806)401-152090 [address] 03-29-2025 10:18-0400 Heart rate 79 /min Dr. Red Perez MD Work Phone: 6(428)504-677890 [address] 03-29-2025 10:18-0400 Respiratory rate 16 /min Dr. Red Perez MD Work Phone: 0(862)142-467690 [address] 03-29-2025 10:18-0400 SaO2% (BldA) [Mass fraction] 97 % Dr. Red Perez MD Work Phone: 4(727)599-411487 [place] [address] 03-29-2025 10:18-0400 Systolic blood pressure 114 mm[Hg] Dr. Red Perez MD Work Phone: [facility] 03-29-2025 08:03-0400 Body height 167.[address] Red Perez MD Work Phone: 3(738)867-075590 [address] 03-29-2025 08:03-0400 Body mass index (BMI) [Ratio] 43.5 kg/m2 Dr. Red Perez MD Work Phone: [facility] 03-29-2025 08:03-0400 Body temperature 96.4 [degF] Dr. Red Perez MD Work Phone: [facility] 03-29-2025 08:03-0400 Body weight 122.[address] Red Perez MD Work Phone: [facility] 03-08-2025 08:22-0400 Body mass index (BMI) [Ratio] 44.7 kg/m2 Dr. Red Perez MD Work Phone: 0(189)199-748587 [place] [address] 03-08-2025 08:22-0400 Body temperature 98.3 [degF] Dr. Red Perez MD Work Phone: 3(726)216-759087 [place] [address] 03-08-2025 08:22-0400 Body weight 125.[address] Red Perez MD Work Phone: 9(785)306-477765 [place] [address] 03-08-2025 08:22-0400 Diastolic blood pressure 74 mm[Hg] Dr. Red Perez MD Work Phone: 2(582)164-284565 [place] [address] 03-08-2025 08:22-0400 Heart rate 78 /min Dr. Red Perez MD Work Phone: 3(814)511-372890 [address] 03-08-2025 08:22-0400 Respiratory rate 18 /min Dr. Red Perez MD Work Phone: 4(742)248-713465 [place] [address] 03-08-2025 08:22-0400 SaO2% (BldA) [Mass fraction] 97 % Dr. Red Perez MD Work Phone: 0(611)964-981190 [address] 03-08-2025 08:22-0400 Systolic blood pressure 113 mm[Hg] Dr. Red Perez MD Work Phone: 1(286)454-274187 [place] [address] 12-01-2022 10:40-0500 Body temperature 96.9 [degF] Dr. Red Perez Work Phone: 9(480)039-723490 [address] 12-01-2022 10:40-0500 Diastolic blood pressure 64 mm[Hg] Dr. Red Perez Work Phone: 6(452)923-586090 [address] 12-01-2022 10:40-0500 Heart rate 62 /min Dr. Red Perez Work Phone: 5(190)149-401287 [place] [address] 12-01-2022 10:40-0500 Respiratory rate 16 /min Dr. Red Perez Work Phone: [facility] 12-01-2022 10:40-0500 SaO2% (BldA) [Mass fraction] 96 % Dr. Red Perez Work Phone: [facility] 12-01-2022 10:40-0500 Systolic blood pressure 106 mm[Hg] Dr. Red Perez Work Phone: [facility] 12-01-2022 09:27-0500 Body height 167.[address] Red Perez Work Phone: [facility] 12-01-2022 09:27-0500 Body mass index (BMI) [Ratio] 36.3 kg/m2 Dr. Red Perez Work Phone: 6(656)255-541487 [place] [address] 12-01-2022 09:27-0500 Body weight [address] Red Perez Work Phone: [facility] 11-10-2022 16:24-0500 Body mass index (BMI) [Ratio] 37.1 kg/m2 Dr. Red Peerz Work Phone: [facility] 11-10-2022 16:24-0500 Body weight 104.[address] Red Perez Work Phone: [facility] Encounters Encounter Date Encounter Type Care Provider Facility Start: 09-17-2025 Encounter for other preprocedural examination [facility] Start: 09-14-2025 End: 09-14-2025 ambulatory Red Perez Facility:[facility] Start: 09-11-2025 End: 09-11-2025 ambulatory [facility] Start: 09-07-2025 End: 09-07-2025 ambulatory Red Perez Facility:[facility] Start: 09-03-2025 Dr. Jacques Muñoz [facility] Work Phone: Start: 09-02-2025 Dr. Frantz maki [facility] Work Phone: Start: 09-01-2025 Dr. Frantz maki DO [facility] Work Phone: Start: 08-31-2025 Dr. Frantz maki DO [facility] Work Phone: Start: 08-31-2025 ambulatory Memo Valdez Facil ity:[facility] Start: 08-31-2025 End: 09-03-2025 Evaluation and management of inpatient Dr. Red Perez MD Work Phone: -Medical Surgical 3 Start: 08-31-2025 End: 09-03-2025 Dr. Jacques Muñoz DO -Medical Surgical 3 Work Phone: Start: 08-30-2025 Dr. Glen Chapman MD -[facility] Start: 08-30-2025 ambulatory [facility] Facility:[facility] Start: 08-27-2025 End: 08-27-[address] Glen Chapman MD [facility] Work Phone: Start: 08-27-2025 End: 08-27-2025 Dr. Glen Chapman MD [facility] Work Phone: Start: 08-27-2025 End: 08-27-[address] Red Perez MD Work Phone: [facility] Start: 08-22-2025 End: 08-22-[address] Red Perez MD -[facility] Work Phone: Start: 08-22-2025 End: 08-22-2025 Dr. Red Perez MD -[facility] Work Phone: Start: 08-22-2025 End: 08-22-20[facility] Start: 08-17-2025 End: 08-17-[address] Red Perez MD -Laboratory [place] [facility] Start: 08-17-2025 End: 08-17-2025 Dr. Red Perez MD -[facility] Start: 08-17-2025 End: 08-17-2025 ambulatory Red Perez Facility:[facility] Start: 08-13-2025 End: 08-13-[address] Red Perez MD Work Phone: -Radiology [facility] Start: 08-13-2025 End: 08-13-[address] Nikolai Kim MD -Radiology [facility] Work Phone: Start: 08-13-2025 End: 08-13-2025 Dr. Nikolai Kim MD -Radiology [facility] Work Phone: Start: 08-13-2025 End: 08-13-2025 [facility] Start: 06-27-2025 End: 06-27-[address] Red Preez MD Work Phone: -Laboratory [facility] Start: 06-27-2025 End: 06-27-[address] Red Perez MD -[facility] Start: 06-27-2025 End: 06-27-2025 Dr. Red Perez MD -[facility] Start: 06-27-2025 End: 06-27-2025 ambulatory Red Perez Facility:[facility] Start: 06-15-2025 End: 06-15-[address] Red Perez MD Work Phone: -Radiology [place] Start: 06-15-2025 End: 06-15-[address] Nikolai Kim MD -Radiology [place] Work Phone: Start: 06-15-2025 End: 06-15-2025 Dr. Nikolai Kim MD -Radiology [facility] Work Phone: Start: 06-15-2025 End: 06-15-2025 ambulatory [place] Y[facility] Kim Facility:[facility] Start: 06-04-[address] Glen Chapman MD [facility] Start: 06-04-2025 End: 06-04-[address] Glen Chapman MD [facility] Work Phone: Start: 06-04-2025 End: 06-04-2025 Dr. Glen Chapman MD [facility] Work Phone: Start: 06-04-2025 End: 06-04-[address] Red Perez MD Work Phone: [facility] Start: 05-07-2025 End: 05-07-[address] Glen Chapman MD [facility] Work Phone: Start: 05-07-2025 End: 05-07-2025 ambulatory Glen Chapman Facility:[facility] Start: 05-07-[address] Glen Chapman MD -[facility] Start: 04-17-2025 ambulatory John Damian Facility:[facility] Start: 04-17-2025 Non-patient / Non-visit Dr. John real MD -[facility] Start: 04-17-2025 End: 04-17-[address] Red Perez MD Work Phone: [facility] Work Phone: Start: 04-17-2025 End: 04-17-[address] Red Perez MD -Cardiovascular Services Work Phone: Start: 04-17-2025 End: 04-17-2025 ambulatory Red Perez Facility:[facility] Start: 03-29-2025 End: 03-29-[address] Red Perez MD Work Phone: [facility] Work Phone: Start: 03-29-2025 End: 03-29-[address] Red Perez MD -Laboratory [facility] Start: 03-29-[address] Glen Chapman MD [facility] Start: 03-29-2025 End: 03-29-2025 ambulatory Red Perez Facility:[facility] Start: 03-08-2025 End: 03-08-[address] Glen Chapman MD [facility] Work Phone: Start: 03-08-2025 End: 03-08-2025 ambulatory Red Perez Facility:[facility] Start: 03-05-2025 Non-patient / Non-visit Yamila Cohen si [employer]CH[employer] -[facility] Work Phone: Start: 03-05-2025 ambulatory Red Perez Facility:[facility] Start: 03-05-2025 End: 03-05-[address] [facility] Start: 03-05-2025 End: 03-05-2025 ambulatory Red Perez Facility:[facility] Start: 03-01-2025 End: 03-01-[address] Red Perez MD Work Phone: [facility] Work Phone: Start: 03-01-2025 End: 03-01-[address] Red Perez MD -Laboratory, [place] Work Phone: Start: 03-01-2025 End: 03-01-2025 ambulatory Red Perez Facility:[facility] Start: 10-08-2024 End: 10-08-2024 ambulatory Red Perez Facility:[facility] Start: 02-07-2024 End: 02-07-2024 ambulatory [facility] Work Phone: Start: 02-07-2024 End: 02-07-2024 Patient encounter procedure [facility]-Laboratory, Spec[facility] Work Phone: Start: 01-19-2024 End: 01-19-2024 ambulatory [facility] Work Phone: Start: 01-19-2024 End: 01-19-2024 Patient encounter procedure [facility] Start: 07-26-2023 End: 07-26-2023 ambulatory [facility] Work Phone: Start: 07-26-2023 End: 07-26-2023 Patient encounter procedure [facility] Start: 01-25-2023 End: 01-25-[address] Red Perez Work Phone: [facility] Work Phone: Start: 01-25-2023 End: 01-25-[address] Red Perez Work Phone: [facility] Start: 12-01-2022 Non-patient / Non-visit Dr. Edy Perez Work Phone: [facility] Start: 12-01-2022 End: 12-01-2022 Admission to same day surgery center Dr. Red Perez Work Phone: [facility]-Endoscopy Start: 12-01-2022 End: 12-01-[address] Red Perez Work Phone: [facility] Work Phone: Start: 11-10-2022 Non-patient / Non-visit Dr. Edy Perez Work Phone: [facility] Start: 07-27-2022 End: 07-27-2022 ambulatory [facility] Work Phone: Start: 07-27-2022 End: 07-27-2022 [facility] Start: 06-26-2022 End: 06-26-2022 [facility] Start: 04-22-2022 End: 04-22-2022 [facility] Start: 01-26-2022 End: 01-26-2022 Patient encounter procedure [facility] Procedures Date Procedure Procedure Detail Performing Clinician Start: 09-14-2025 Mean corpuscular hem oglobin concentration determination Dr. Red Perez MD Work Phone: Start: 09-14-[address] Edy Perez MD Work Phone: Start: 09-14-2025 Nucleated red blood cell count procedure Dr. Red Perez MD Work Phone: Start: 09-14-2025 Platelet mean volume determination Dr. Red Perez MD Work Phone: Start: 09-03-[address] Red Perez MD Work Phone: Start: 09-02-[address] Felix Perez MD Work Phone: Comment on above: The atypical pANCA p attern has been observed in asignificant percentage of patients with ulcerative colitis,primary sclerosing cholangitis and autoimmune hepatitis. Start: 09-02-2025 C>3< complement assay D denys Perez MD Work Phone: Start: 09-02-2025 Urine lambda light c emily measurement Dr. Red Perez MD Work Phone: Start: 08-31-[address] Red Perez MD Work Phone: Start: 08-31-2025 Us retroperitoneal r eal time w/image complete Dr. Red Perez MD Work Phone: Start: 08-31-2025 Urine microscopy: red cells Dr. Red Perez MD Work Phone: Start: 08-31-2025 Urnls dip stick/tabl et reagent auto microscopy Dr. Red Perez MD Work Phone: Start: 08-31-2025 End: 08-31-2025 Radex ankle complete minimum [address] Red Perez MD Work Phone: Start: 08-31-2025 CT of head without contrast Dr. Red Perez MD Work Phone: Start: 08-31-2025 Calculation of inter national normalized ratio Dr. Red Perez MD Work Phone: Start: 08-31-2025 Mean corpuscular hem oglobin concentration determination Dr. Red Perez MD Work Phone: Start: 08-31-[address] Edy Perez MD Work Phone: Start: 08-31-2025 Nucleated red blood cell count procedure Dr. Red Perez MD Work Phone: Start: 08-31-2025 Platelet mean volume determination Dr. Red Perez MD Work Phone: Start: 08-30-2025 Measurement of occul t blood in stool specimen using immunoassay Dr. Red Perez MD Work Phone: Start: 08-27-2025 Urine microscopy: red cells Dr. Red Perez MD Work Phone: Start: 08-27-2025 Urnls dip stick/tabl et reagent auto microscopy Dr. Red Perez MD Work Phone: Start: 08-27-[address] Red Perez MD Work Phone: Comment on above: Previous reported re sult: 47.39 ml/minEdited by: AUTOINS on 08/27/25:1520 AMENDED REPORT 08/27/25 1520 Estimated CRCL previously reported as: 47.39 L ml/min Start: 08-27-2025 Hepatitis B surface antibody measurement Dr. Red Perez MD Work Phone: Comment on above: Non Reactive: Not im mune to HBV infection. Anti-HBs undetectable or less than 10 mIU/mL. Reactive: Evidence of HBV immunity. Anti-HBs levels greater than 10 mIU/mL. Start: 08-27-2025 Hepatitis C virus recombinant immunoblot measurement Dr. Red Perez MD Work Phone: Start: 08-27-[address] e fraction Dr. Red Perez MD Work Phone: Start: 08-27-2025 Immunoglobulin G sub class, G4 measurement Dr. Red Perez MD Work Phone: Start: 08-27-[address] Red Perez MD Work Phone: Start: 08-27-[address] e measurement Dr. Red Perez MD Work Phone: Start: 08-27-2025 Mean corpuscular hem oglobin concentration determination Dr. Red Perez MD Work Phone: Start: 08-27-[address] Edy Perez MD Work Phone: Start: 08-27-2025 Nucleated red blood cell count procedure Dr. Red Perez MD Work Phone: Start: 08-27-2025 Platelet mean volume determination Dr. Red Perez MD Work Phone: Start: 08-27-[address] Red cool MD Work Phone: Comment on above: Test Ordered: [id number] ANIRUDH, IFA Rfx 9 Frantz MultiplexANA by IFA Rfx Titer/Pattern Negative CB Reference Range: . Negative <1:80 Borderline 1:80 Positive >1:80ICAP nomenclature: AC-0For more information about Hep-2 cell patterns useANApatterns.org, the official website for theInternational Consensus on Antinuclear Antibody (ANIRUDH)Patterns (ICAP).Please Note: Comment CB Reference Range: .ANIRUDH Multiplex methodology was designed to detect up to 11antibodies of the 100+ antibodies that may be detected byANA IFA methodology.Performed at: [address] [id number] Director: Preston Ashley PhD, Phone: [phone] Start: 08-27-2025 Total iron binding c apacity measurement Dr. Red Perez MD Work Phone: Start: 08-22-[address] e measurement Dr. Red Perez MD Work Phone: Start: 08-22-2025 Mean corpuscular hem oglobin concentration determination Dr. Red Perez MD Work Phone: Start: 08-22-[address] Edy Perez MD Work Phone: Start: 08-22-2025 Nucleated red blood cell count procedure Dr. Red Perez MD Work Phone: Start: 08-22-2025 Platelet mean volume determination Dr. Red Perez MD Work Phone: Start: 08-22-2025 Serum inorganic phos phate measurement Dr. Red Perez MD Work Phone: Start: 08-22-2025 Total iron binding c apacity measurement Dr. Red Perez MD Work Phone: Start: 08-17-2025 Mean corpuscular hem oglobin concentration determination Dr. Red Perez MD Work Phone: Start: 08-17-[address] Edy Perez MD Work Phone: Start: 08-17-2025 Nucleated red blood cell count procedure Dr. Red Perez MD Work Phone: Start: 08-17-2025 Platelet mean volume determination Dr. Red Perez MD Work Phone: Start: 08-17-2025 Total iron binding c apacity measurement Dr. Red Perez MD Work Phone: Start: 06-27-2025 Mean corpuscular hem oglobin concentration determination Dr. Red Perez MD Work Phone: Start: 06-27-[address] Edy Perez MD Work Phone: Start: 06-27-2025 Nucleated red blood cell count procedure Dr. Red Perez MD Work Phone: Start: 06-27-2025 Platelet mean volume determination Dr. Red Perez MD Work Phone: Start: 06-27-2025 Total cholesterol:HD L ratio measurement Dr. Red Perez MD Work Phone: Start: 06-27-2025 Total iron binding c apacity measurement Dr. Red Perez MD Work Phone: Start: 06-27-[address] Red Perez MD Work Phone: Start: 06-15-2025 X-ray of chest, PA a nd lateral views Dr. Red Perez MD Work Phone: Start: 06-04-[address] Red Perez MD Work Phone: Start: 06-04-2025 Serum inorganic phos phate measurement Dr. Red Perez MD Work Phone: Start: 06-04-2025 Total iron binding c apacity measurement Dr. Red Perez MD Work Phone: Start: 05-07-2025 Serum inorganic phos phate measurement Dr. Red Perez MD Work Phone: Start: 05-07-2025 Total iron binding c apacity measurement Dr. Red Perez MD Work Phone: Start: 04-17-2025 Radionuclide imaging of perfusion of myocardium under exercise stress Dr. Red Perez MD Work Phone: Start: 03-08-2025 Endomysial antibody IgA level Dr. Red Perez MD Work Phone: Start: 03-08-[address] Red Perez MD Work Phone: Start: 03-08-2025 Gliadin antibody, Ig A measurement Dr. Red Perez MD Work Phone: Comment on above: Negative 0 - 19 Weak Positive 20 - 30 Moderate to Strong Positive >30 Start: 03-08-2025 Gliadin antibody, Ig G measurement Dr. Red Perez MD Work Phone: Comment on above: Negative 0 - 19 Weak Positive 20 - 30 Moderate to Strong Positive >30 Start: 03-08-2025 Measurement of immunoglobulin A in serum specimen Dr. Red Perez MD Work Phone: Comment on above: Performed at: [address] Director: Preston Ashley PhD, Phone: [phone] Start: 12-01-[address] Red cool Work Phone: Start: 04-22-2022 Urine culture Urine culture Plan of Treatment Date Care Activity Detail Author Start: 09-24-2025 ambulatory Ambulatory Facility:[facility] Start: 09-14-2025 End: 09-14-2025 -Laboratory [facility] Start: 09-07-2025 Patient encounter procedure [facility] [place] Work Phone: Start: 09-07-2025 End: 09-07-2025 -Laboratory [place] Work Phone: Start: 09-03-2025 Patient discharge [facility] Start: 09-03-2025 Non-patient / Non-visit [facility] Start: 09-02-2025 Non-patient / Non-visit Non-[facility] / [facility] Work [facility]: Start: 09-01-2025 Non-patient / Non-visit Non-[facility] Work Phone: Start: 09-01-2025 [facility] Start: 08-31-2025 Non-patient / Non-visit Non-patient / [facility] Work Phone: Start: 08-31-2025 Referral to pull worker [facility] Start: 08-31-2025 Following clinical pathway protocol [facility] Start: 08-31-2025 Assessment of risk of venous thromboembolism [facility] Start: 08-31-2025 Care regimes management [facility] Start: 08-31-2025 Insertion of catheter into peripheral vein [facility] Start: 08-31-2025 Notification of physician [facility] Start: 08-31-2025 Providing care according to standard [facility] Start: 08-31-2025 Provision of activity privileges [facility] Start: 08-31-2025 Referral for physical therapy [facility] Start: 08-31-2025 Referral to occupational therapist [facility] Start: 08-31-2025 End: 08-31-2025 [facility] Start: 08-31-2025 Us retroperitoneal real time w/image complete Kidney and Bladder [facility] Start: 08-31-2025 Admission procedure [facility] Start: 08-31-2025 End: 09-03-2025 Evaluation and management of inpatient Acute hyponatremia -Medical Surgical 3 Work Phone: Start: 08-31-2025 Radex ankle complete minimum 3 views Ankle min 3 Views [facility] Start: 08-31-2025 CT of head without contrast Brain/Head without Contrast [facility] Start: 08-31-2025 Plain chest X-ray Chest 1 View [facility] Start: 08-31-2025 [facility] Start: 08-31-2025 Patient referral to dietitian [facility] Start: 08-30-2025 Registered Recurring Registered Recurring -[facility] Start: 08-30-2025 Measurement of occult blood in stool specimen using immunoassay Stool Occult Blood (KIRK) [facility] Start: 08-27-2025 Serum inorganic phosphate measurement [facility] Start: 08-24-2025 Lactate dehydrogenase measurement [facility] Start: 08-24-2025 Serum inorganic phosphate measurement [facility] Start: 08-24-2025 Vitamin B12 measurement [facility] Start: 06-04-2025 [facility] Start: 05-07-2025 [facility] Start: 03-08-2025 Patient referral [facility] Work Phone: Start: 12-01-2022 Colonoscopy flx dx w/collj spec when pfrmd DIAGNOSTIC COLONOSCOPY [facility] Start: 12-01-2022 Patient discharge [facility] C reactive protein [Mass/volume] in Serum or Plasma [facility] C reactive protein [Mass/volume] in Serum or Plasma [facility] CBC W Auto Different ial panel - Blood [facility] CBC W Auto Different ial panel - Blood [facility] CBC W Auto Different ial panel - Blood [facility] Cobalamin (Vitamin B 12) [Mass/volume] in Serum or Plasma [facility] Cobalamin (Vitamin B 12) [Mass/volume] in Serum or Plasma [facility] Colonoscopy [facility] Comprehensive metabo lic 1999 panel - Serum or Plasma [facility] Comprehensive metabo lic 1999 panel - Serum or Plasma [facility] Erythrocyte sediment ation rate [facility] Erythrocyte sediment ation rate [facility] Ferritin [Mass/volum e] in Serum or Plasma [facility] Ferritin [Mass/volum e] in Serum or Plasma [facility] Ferritin [Mass/volum e] in Serum or Plasma [facility] Folate [Moles/volume ] in Serum or Plasma [facility] Folate [Moles/volume ] in Serum or Plasma [facility] Folate [Moles/volume ] in Serum or Plasma [facility] Iron and Iron bindin g capacity panel - Serum or Plasma [facility] Iron and Iron bindin g capacity panel - Serum or Plasma [facility] Iron and Iron bindin g capacity panel - Serum or Plasma [facility] Lactate dehydrogenas e measurement [facility] Lactate dehydrogenas e measurement [facility] Lactate dehydrogenas e measurement [facility] Liver stiffness by US.transient elastography [facility] Magnesium measurement [facility] Magnesium measurement [facility] Magnesium measurement [facility] Patient referral [facility] Work Phone: Serum inorganic phos phate measurement [facility] Serum inorganic phos phate measurement [facility] Serum inorganic phos phate measurement [facility] Vitamin B12 measurement [facility] Payers Date Payer Category Payer Private Health Insurance [id number] 2024 Private Health Insurance [id number] 2024 Self-pay [id number] 1970 Unknown [id number] 2.16.8 40.1.930010.3.579.2.651 Unknown [id number] Unknown [id number] 2.16.8 40.1.811916.3.579.2.462 Unknown [id number] 2.16.8 40.1.039417.3.579.2.462 Unknown [id number] 2.16.8 40.1.040107.3.579.2.462 Unknown [id number] 2.16.8 40.1.192253.3.579.2.462 Unknown [id number] 2.16.8 40.1.440429.3.579.2.462 Unknown [id number] 2.16.8 40.1.109432.3.579.2.462 Unknown [id number] 2.16.8 40.1.299829.3.579.2.462 Unknown [id number] 2.16.8 40.1.729112.3.579.2.462 Unknown [id number] 2.16.8 40.1.830931.3.579.2.462 Unknown [id number] 2.16.8 40.1.847598.3.579.2.462 Unknown [id number] 2.16.8 40.1.705019.3.579.2.462 Unknown [id number] 2.16.8 40.1.470382.3.579.2.462 Unknown [id number] 2.16.8 40.1.872448.3.579.2.462 Unknown [id number] 2.16.8 40.1.642795.3.579.2.462 Unknown [id number] 2.16.8 40.1.532103.3.579.2.462 Unknown [id number] 2.16.8 40.1.267206.3.579.2.462 Unknown [id number] 2.16.8 40.1.504716.3.579.2.462 Unknown [id number] 2.16.8 40.1.082864.3.579.2.462 Unknown [id number] 2.16.8 40.1.924818.3.579.2.462 Unknown [id number] 2.16.8 40.1.595533.3.579.2.462 Unknown [id number] 2.16.8 40.1.349302.3.579.2.462 Unknown [id number] 2.16.8 40.1.830903.3.579.2.462 Unknown [id number] 2.16.8 40.1.249609.3.579.2.462 Unknown [id number] 2.16.8 40.1.715327.3.579.2.462 Unknown [id number] 2.16.8 40.1.605436.3.579.2.462 Social History Date Type Detail Facility Tobacco smoking status NHIS Unknown if ever smoked [facility] Work Phone: Start: 1970 Sex Assigned At Female [facility] Start: 12-01-2022 End: 12-01-2022 Tobacco smoking status NHIS Unknown if ever smoked [facility] Start: 03-05-2025 End: 08-31-2025 Tobacco smoking status NHIS Ex-smoker (finding) [facility] Start: 03-06-2025 Sex Female (finding) [facility] Sex [facility] NEGATED: Highlighted row [facility] Goals Date Patient Goal Desired Activity /State Functional Status Date Assessment Result Facility 09-03-2025 Functional status Ambulates [facility] Work Phone: Mental Status Date Assessment Result Facility 09-03-2025 Cognitive function Appropriate [facility] Work Phone: 09-03-2025 Cognitive function Voice/Name [facility] Work Phone: 03-29-2025 Cognitive function Awake;Alert;A ppropriate;Foll ows Commands [facility] Work Phone: 03-15-2025 Cognitive function Voice/Name [facility] Work Phone: 12-01-2022 Cognitive function Voice/Name [facility] Work Phone: Clinical Notes 12-01-2022 to 09-03-2025 Note Date & Type Note Facility 09-03-2025 Discharge summary Note Date/Time September 03, 2025 2:02pm [facility] Medical Records Department [address] [place] [address] Instructions for Home/Discharge Instructions 09/03/25 1228 MR#: [id number] Acct: [id number] Name: HEIDI ANDREWS Rep #:[id number] : 1970 55 From: Jacques hernandez DO PCP: Dr. Red Perez MD Status:ADM I N Discharge Instructions DC O2, CPAP, BIPAP needs Home O2 Discharge instructions: No Dressing / Incision Weight Bearing Status: No weight bearing (right leg) Follow Up Care Test Results: Test results from this visit will be discussed in further detail at your follow-up appointment, if applicable. Discharge Plan Admission Admit Date/Time: 08/31/25 12:54 Primary Reason for Your Visit: Acute kidney injury, hyponatremia, starvation ketoacidosis Attending Provider: Jacques Muñoz Primary Care Provider: Red Perez Consulting Providers: Memo Valdez; Frantz Gunderson Instructions Additional Instructions / Restrictions: Please take the following medications as noted below. Note the following changes: ? For high blood pressure, take Toprol 50 mg daily and valsartan 80 mg daily. ? For diabetes, take metformin 1000 mg twice daily. Please have a repeat BMP drawn in 3 to 5 days to monitor your kidney function. Follow-up with your PCP in the next 1 to 2 weeks. Discharge Orders/Prescriptions Prescriptions: New metoprolol succinate [Toprol XL] 50 mg tablet extended release 24 hr 50 mg PO DAILY Qty: 30 2RF valsartan 80 mg tablet 80 mg PO DAILY Qty: 30 2RF metformin [Fortamet] 1,000 mg tablet extended release 24hr 1,000 mg PO BID 30 Days Qty: 60 2RF Continued levothyroxine [Levoxyl] 88 mcg tablet 88 mcg PO DAILY gemfibrozil 600 mg tablet 600 mg PO BID lamotrigine 150 mg tablet 150 mg PO BID fluoxetine [Prozac] 20 mg capsule 60 mg PO DAILY oxybutynin chloride 5 mg tablet 5 mg PO BID folic acid 1 mg tablet 1 mg PO QDAY Qty: 90 0RF mecobalamin (vitamin B12) 1,000 mcg tablet,chewable 1,000 mcg PO QDAY Qty: 90 0RF risperidone 1 mg tablet 1.5 mg PO QHS ondansetron HCl 4 mg tablet 4 mg PO TID PRN (Reason: nausea) fluticasone furoate-vilanterol 200-25 mcg/dose blister with device 1 ea INHALATION Q24H magnesium oxide 400 mg magnesium capsule 400 mg PO QDAY Qty: 30 2RF Discontinued metformin 1,000 mg tablet 1,000 mg PO BID valsartan-hydrochlorothiazide [Diovan HCT] 320-12.5 mg tablet 1 tab PO DAILY metoprolol succinate [Toprol XL] 200 mg tablet extended release 24 hr 200 mg PO DAILY Ozempic 0.25 mg or 0.5 mg (2 mg/3 mL) pen injector 0.25 mg subcut QWEEK potassium chloride 20 mEq tablet,ER particles/crystals 20 meq PO DAILY Other Ambulatory Orders: Basic Metabolic Profile (BMP) (Routine) Timeframe: 3 Days Facility: [facility] - Location: Laboratory Ordered By: Dr. Jacques Muñoz Referrals / Follow Up: Memo Valdez MD [Med Staff - Consulting, Nephrology] - See Referral Note Referral Note: Call the office on 09/03/2025 for a follow-up appointment within 1 to 2 weeks, tell them that you were hospitalized and saw Dr. Valdez in the hospital Red Perez MD [Primary Care Provider, Family Practice] - See Referral Note Referral Note: In 2 weeks Disposition Disposition (needs filled in before D/C Order can be placed): Home, Self Care 09/03/25 1302<Electronically signed by Jacques Muñoz DO>Jacques Muñoz DO CC: Dr. Memo Valdez MD; Dr. Frantz Gunderson DO; Dr. Red Perez MD ~ Signed [facility] Work Phone: 1(657) 635-256710-20-2025 Consult note Author Channing Parker [facility] Note Date/Time September 03, 2025 2 :56pm [facility] Medical Records Department [address] [place] [address] Counseling Note - Pharmacy 09/03/25 1355 MR#: [id number] Acct: [id number] Name: HEIDI ANDREWS Rep #:[id number] : 1970 55 From: Channing Parker PCP: Dr. Red Perez MD Status:ADM I N Y Location: [place] [address] Pharmacy [facility] Counseling Pharmacy Service has performed discharge medication reconciliation and counseling for this patient. The patient's discharge medication list was reviewed for discrepancies and discrepancies were resolved. The patient was counseled on the following discharge medications and changes in medications for homegoing were reviewed. The Reason for Use, instructions for use, and potential side effects were reviewed for all new medications. The patient's questions regarding all of their medications were answered. 1. Metoprolol succinate 50 mg PO daily 2. Valsartan 80 mg PO daily 3. Metformin 1000 mg ER PO BID The patient was able to verbally demonstrate an understanding of their dischargemedications. Medications at Discharge Home Medications gemfibrozil 600 mg tablet 600 mg PO BID high blood pressu 11/10/22 lamotrigine 150 mg tablet 150 mg PO BID high blood pressure 11/10/22 levothyroxine 88 mcg tablet (Levoxyl) 88 mcg PO DAILY hypo thyroid 11/10/22 oxybutynin chloride 5 mg tablet 5 mg PO BID bladder 03/05/25 fluoxetine 20 mg capsule (Prozac) 60 mg PO DAILY bipolar 03/08/25 folic acid 1 mg tablet 1 mg PO QDAY supplement #90 tabs 05/07/25 mecobalamin (vitamin B12) 1,000 mcg chewable tablet 1,000 mcg PO QDAY supplement#90 tabs 05/07/25 magnesium oxide 400 mg PO QDAY supplement #30 caps 06/01/25 risperidone 1 mg tablet 1.5 mg PO QHS rls 06/04/25 fluticasone furoate 200 mcg-vilanterol 25 mcg/dose inhalation powder 1 ea inhalation Q24H asthma 08/31/25 ondansetron HCl 4 mg tablet 4 mg PO TID PRN nausea 08/31/25 metformin 1,000 mg tablet,extended release 24hr (osmotic) (Fortamet) 1,000 mg POBID 30 days #60 tabs 09/03/25 metoprolol succinate 50 mg tablet,extended release 24 hr (Toprol XL) 50 mg PO DAILY #30 tabs 09/03/25 valsartan 80 mg tablet 80 mg PO DAILY #30 tabs 09/03/25 09/03/25 1356 <Electronically signed by Channing haynes> Date _ Channing Nix Signature (if applicable): Date CC: ~ Signed [facility] Work Phone: 1(352) 276-762410-20-2025 Discharge summary Author Jacques Muñoz [facility] Note Date/Time September 03, 2025 4 :34pm [facility] Medical Records Department [address] [place] [address] Discharge Summary 09/03/25 1229 MR#: [id number] Acct: [id number] Name: HEIDI ANDREWS Rep #:[id number] : 1970 55 From: Jacques hernandez DO PCP: Dr. Red Perez MD Status:DIS I N [place] [facility] [place] Providers Date of Admission: 08/31/25 Date of Discharge: 09/03/25 Primary Care Physician: Dr. Red Perez MD Consultations 08/31/25 15:06 Consult: Nephrology Routine Consulting Provider: Memo Valdez Reason for Consult: Acute kidney injury EMERGENT Consult: No MD Notified: Yes Date Notified: 08/31/25 Time Notified: 15:07 Method of Notification: Verbal Reason For Visit: ACUTE KIDNEY INJURY Diagnosis Discharge Diagnosis (1) JESI (acute kidney injury): Status: Inactive Code(s): N17.9 - Acute kidney failure, unspecified Medications at Discharge Home Medications gemfibrozil 600 mg tablet 600 mg PO BID high blood pressu 11/10/22 lamotrigine 150 mg tablet 150 mg PO BID high blood pressure 11/10/22 levothyroxine 88 mcg tablet (Levoxyl) 88 mcg PO DAILY hypo thyroid 11/10/22 oxybutynin chloride 5 mg tablet 5 mg PO BID bladder 03/05/25 fluoxetine 20 mg capsule (Prozac) 60 mg PO DAILY bipolar 03/08/25 folic acid 1 mg tablet 1 mg PO QDAY supplement #90 tabs 05/07/25 mecobalamin (vitamin B12) 1,000 mcg chewable tablet 1,000 mcg PO QDAY supplement#90 tabs 05/07/25 magnesium oxide 400 mg PO QDAY supplement #30 caps 06/01/25 risperidone 1 mg tablet 1.5 mg PO QHS rls 06/04/25 fluticasone furoate 200 mcg-vilanterol 25 mcg/dose inhalation powder 1 ea inhalation Q24H asthma 08/31/25 ondansetron HCl 4 mg tablet 4 mg PO TID PRN nausea 08/31/25 metformin 1,000 mg tablet,extended release 24hr (osmotic) (Fortamet) 1,000 mg POBID 30 days #60 tabs 09/03/25 metoprolol succinate 50 mg tablet,extended release 24 hr (Toprol XL) 50 mg PO DAILY #30 tabs 09/03/25 valsartan 80 mg tablet 80 mg PO DAILY 30 days #30 tabs 09/03/25 Hospital Course Operations None Procedures EKG and - (Chest x-ray, CT brain, ankle x-ray, renal ultrasound) Summary of Care Provided Minutes Spent on Discharge: 39 Hospital Course: Patient is a 55-year-old female who presented to [facility] ED on 08/31/2025 with syncope and right ankle pain. Hospital course as noted below. Patient discharged home in stable condition on 09/03. 1. JESI, resolved ? Nephrology followed. Creatinine 3.10 on admit, baseline around 1.0. Renal ultrasound normal. UA with some protein, otherwise benign. Improved back to baseline by day of discharge with IV fluid resuscitation so most consistent withprerenal etiology secondary to poor appetite, weight loss and hypotension as below. Further medication management as below. 2. Syncope secondary to orthostatic hypotension, resolved; history of essentialhypertension ? Orthostatic hypotension noted on admission and patient quite dry appearing with JESI as above. Suspected due to decreased p.o. intake from Ozempic leading to lower blood pressures at baseline in setting of home blood pressure medication. BP meds were held for the majority of the hospitalization. Normotensive to slightly hypertensive on day of discharge and JESI resolved as above. Discharged on Toprol 50 mg daily and valsartan 80 mg daily. Recommendedpatient follow-up with PCP for uptitration of medications as needed. 3. Lactic acidosis secondary to starvation ketosis, resolved ? Lactic acid 4.4 on admit, improved with IV fluid resuscitation. Initial bicarb 17 with anion gap of 25 on admit, anion gap resolved with IV fluid resuscitation as well. 4. Right ankle fracture ? PT/OT/case management followed. X-ray on admit showed nondisplaced oblique fracture of the lateral malleolus as well as avulsion fracture of the posterior malleolus with soft tissue swelling. Case was discussed with orthopedics who recommended splinting and the patient remain nonweightbearing until she follows up with orthopedic surgery in the office. Patient did well with PT and OT stable for home on discharge with outpatient physical therapy. She was providedwith the appropriate equipment at home that will allow her to remain nonweightbearing until she follows up with orthopedics in the office. 5. Hyponatremia, resolved ? Sodium 129 on admit, resolved with IV fluid resuscitation. 6. Severe protein calorie malnutrition ? Nutrition followed. Criteria for medication on admit as evidenced by p.o. eating less 50% of this to be nutrition needs x 1 month and 60% weight loss x 2 months. This is presumed secondary to GI dysfunction and inadequate oral intakedue to Ozempic. Given protein supplements during hospitalization and recommended that these are continued on discharge. 7. Type 2 diabetes mellitus ? Patient was recently started on Ozempic about 8 weeks ago. Since then she hashad significantly decreased p.o. intake and GI dysfunction leading to her issuesas above. Ozempic will be discontinued on discharge. Treated with sliding scale insulin while inpatient with good glucose control. Okay to resume home metformin on discharge. Chronic medical conditions: ? Hypothyroidism: Continue home Synthroid. ? Mood disorder: Continue home risperidone, lamotrigine and fluoxetine. ? Overactive bladder: Continue home oxybutynin. ? Asthma: Stable on room air, not in acute exacerbation on admission. Continue home inhalers. Total clinical time spent by myself addressing the patient's medical issues, reviewing all the data, and collaborating with patient's care team: 39 minutes. Physical Exam Narrative alert, oriented x3, no apparent distress and healthy appearing General Appearance: cooperative, well kempt and well developed Orientation / Consciousness: awake, oriented to person, oriented to place and oriented to time HEENT normocephalic, head/scalp atraumatic, hearing grossly normal bilaterally and moist oral mucous membranes Eyes PERRL, EOMs intact bilaterally and conjunctivae normal Neck supple, no JVD, thyroid normal and no carotid bruits General: trachea midline Resp normal respiratory effort, no retractions, no use of accessory muscles and clearto auscultation bilaterally Auscultation: Negative for rales, rhonchi or wheezes Cardio regular rate, regular rhythm, S1 normal heart sound, S2 normal heart sound, no murmurs, no rub and no gallops GI normal to inspection, nondistended, normoactive bowel sounds, soft to palpation,non-tender and non-distended Extremity Extremity Narrative: Right lower extremity is encased in a splint Skin no rashes or lesions noted General Skin Exam: no breakdown Neuro oriented x3, CN's II-XII intact bilaterally, no focal motor deficits and no sensory deficits noted Sensorium / Orientation: awake and alert Speech: speech normal Psych affect normal Medical Records Data Medical Nutrition Assessment Dietitian: Malnutrition Criteria Met Start: 08/31/25 14:35 Freq: Status: Active Protocol: Document 08/31/25 14:36 SB (Rec: 08/31/25 14:36 SB [id number]) Nutrition Malnutrition Evidence of Yes Malnutrition Exists Malnutrition (severe Acute Illness/Injury ): Evidenced By Suboptimal Energy Intake (Severe),Weight Loss (Severe) Clinical Problem Acute Disease or Injury Related Malnutrition Etiology severe related to GI dysfunction, inadequate oral intake, and ozempic Signs/Symptoms as evidenced by PO meeting <50% of estimated nutrition needs x 1 month and 16% weight loss x 2 months Status Active Problem Recommendation Dietitian Adjust to consistent carbohydrate diet. Recommendations/ Will order 240mL chocolate glucerna shake with Changes breakfast and dinner. Pt will maintain weight while acutely ill. Weight / BMI Weight Weight: 94 kg Body Mass Index (BMI) 33.4 ABG / Lab / Microbiology Data 08/31/25 09:50 09/03/25 05:40 Laboratory: Laboratory Results - last 24 hr 09/02/25 16:22: POC Glucose 145 H 09/02/25 22:16: POC Glucose 152 H 09/03/25 05:40: Sodium 137, Potassium 3.3, Chloride 105, Carbon Dioxide 19.3 L, Anion Gap 12, BUN 8, Creatinine 1.04, Estim Creat Clear Calc 72.27, Est GFR (MDRD) Non-Af 64, BUN/Creatinine Ratio 8.2 L, Glucose 116 H, Calcium 8.7 09/03/25 06:18: POC Glucose 110 H 09/03/25 10:43: POC Glucose 140 H D/C Instructions Weight Bearing Status: Full weight bearing DC O2, CPAP, BIPAP Needs Home O2 Discharge instructions: No Meaningful Use Info Meaningful Use Meaningful Use Diagnoses (Choose all that apply): None applicable Discharge Plan Admission Admit Date/Time: 08/31/25 12:54 Primary Reason for Your Visit: Acute kidney injury, hyponatremia, starvation ketoacidosis Attending Provider: Jacques Muñoz Primary Care Provider: Red Perez Consulting Providers: Memo Valdez; Frantz Gunderson Instructions Additional Instructions / Restrictions: Please take the following medications as noted below. Note the following changes: ? For high blood pressure, take Toprol 50 mg daily and valsartan 80 mg daily. ? For diabetes, take metformin 1000 mg twice daily. Please have a repeat BMP drawn in 3 to 5 days to monitor your kidney function. Follow-up with your PCP in the next 1 to 2 weeks. Discharge Orders/Prescriptions Prescriptions: New metoprolol succinate [Toprol XL] 50 mg tablet extended release 24 hr 50 mg PO DAILY Qty: 30 2RF metformin [Fortamet] 1,000 mg tablet extended release 24hr 1,000 mg PO BID 30 Days Qty: 60 2RF valsartan 80 mg tablet 80 mg PO DAILY 30 Days Qty: 30 0RF Continued levothyroxine [Levoxyl] 88 mcg tablet 88 mcg PO DAILY gemfibrozil 600 mg tablet 600 mg PO BID lamotrigine 150 mg tablet 150 mg PO BID fluoxetine [Prozac] 20 mg capsule 60 mg PO DAILY oxybutynin chloride 5 mg tablet 5 mg PO BID folic acid 1 mg tablet 1 mg PO QDAY Qty: 90 0RF mecobalamin (vitamin B12) 1,000 mcg tablet,chewable 1,000 mcg PO QDAY Qty: 90 0RF risperidone 1 mg tablet 1.5 mg PO QHS ondansetron HCl 4 mg tablet 4 mg PO TID PRN (Reason: nausea) fluticasone furoate-vilanterol 200-25 mcg/dose blister with device 1 ea INHALATION Q24H magnesium oxide 400 mg magnesium capsule 400 mg PO QDAY Qty: 30 2RF Discontinued metformin 1,000 mg tablet 1,000 mg PO BID valsartan-hydrochlorothiazide [Diovan HCT] 320-12.5 mg tablet 1 tab PO DAILY metoprolol succinate [Toprol XL] 200 mg tablet extended release 24 hr 200 mg PO DAILY Ozempic 0.25 mg or 0.5 mg (2 mg/3 mL) pen injector 0.25 mg subcut QWEEK potassium chloride 20 mEq tablet,ER particles/crystals 20 meq PO DAILY Other Ambulatory Orders: Basic Metabolic Profile (BMP) (Routine) Timeframe: 3 Days Facility: [facility] - Location: Laboratory Ordered By: Dr. Jacques Muñoz Referrals / Follow Up: Memo Valdez MD [Med Staff - Consulting, Nephrology] - See Referral Note Referral Note: Call the office on 09/03/2025 for a follow-up appointment within 1 to 2 weeks, tell them that you were hospitalized and saw Dr. Valdez in the hospital Red Perez MD [Primary Care Provider, Family Practice] - See Referral Note Referral Note: In 2 weeks Disposition Disposition (needs filled in before D/C Order can be placed): Home, Self Care Charges/Coding Visit Charges Inpatient E&M: 30577 Disch Hosp >30min 09/06/25 1040 <Electronically signed by Jacques Muñoz DO> Cosigner Signature (if applicable): CC: Dr. Jacques Muñoz DO; Dr. Red Perez MD~ Signed [facility] Work Phone: [phone] 180-632810-20-2025 Hospital Discharge instructionsAdditional Instructions Please take the following medications as noted below. Note the following changes: For high blood pressure, take Toprol 50 mg daily and valsartan 80 mg daily. For diabetes, take metformin 1000 mg twice daily. Please have a repeat BMP drawn in 3 to 5 days to monitor your kidney function. Follow-up with your PCP in the next 1 to 2 weeks. Date of Discharge: 09/03/25[facility] Work Phone: 1([phone] 113-157410-20-2025 [facility] Medical Records Department [address] [place] [id number] Discharge Summary 09/03/25 1229 MR#: [id number] Acct: [id number] Name: HEIDI ANDREWS Rep #: [id number] : 1970 55 From: Jacques Muñoz DO PCP: Dr. Red Perez MD Status:DIS IN Location: [facility]3 [id number] Providers Date of Admission: 08/31/25 Date of Discharge: 09/03/25 Primary Care Physician: Dr. Red Perez MD Consultations 08/31/25 15:06 Consult: Nephrology Routine Consulting Provider: Memo Valdez Reason for Consult: Acute kidney injury EMERGENT Consult: No MD Notified: Yes Date Notified: 08/31/25 Time Notified: 15:07 Method of Notification: Verbal Reason For Visit: ACUTE KIDNEY INJURY Diagnosis Discharge Diagnosis (1) JESI (acute kidney injury): Status: Inactive Code(s): N17.9 - Acute kidney failure, unspecified Medications at Discharge Home Medications gemfibrozil 600 mg tablet 600 mg PO BID high blood pressu 11/10/22 lamotrigine 150 mg tablet 150 mg PO BID high blood pressure 11/10/22 levothyroxine 88 mcg tablet (Levoxyl) 88 mcg PO DAILY hypo thyroid 11/10/22 oxybutynin chloride 5 mg tablet 5 mg PO BID bladder 03/05/25 fluoxetine 20 mg capsule (Prozac) 60 mg PO DAILY bipolar 03/08/25 folic acid 1 mg tablet 1 mg PO QDAY supplement #90 tabs 05/07/25 mecobalamin (vitamin B12) 1,000 mcg chewable tablet 1,000 mcg PO QDAY supplement #90 tabs 05/07/25 magnesium oxide 400 mg PO QDAY supplement #30 caps 06/01/25 risperidone 1 mg tablet 1.5 mg PO QHS rls 06/04/25 fluticasone furoate 200 mcg-vilanterol 25 mcg/dose inhalation powder 1 ea inhalation Q24H asthma 08/31/25 ondansetron HCl 4 mg tablet 4 mg PO TID PRN nausea 08/31/25 metformin 1,000 mg tablet,extended release 24hr (osmotic) (Fortamet) 1,000 mg PO BID 30 days #60 tabs 09/03/25 metoprolol succinate 50 mg tablet,extended release 24 hr (Toprol XL) 50 mg PO DAILY #30 tabs 09/03/25 valsartan 80 mg tablet 80 mg PO DAILY 30 days #30 tabs 09/03/25 Hospital Course Operations None Procedures EKG and - (Chest x-ray, CT brain, ankle x-ray, renal ultrasound) Summary of Care Provided Minutes Spent on Discharge: 39 Hospital Course: Patient is a 55-year-old female who presented to [facility] ED on 08/31/2025 with syncope and right ankle pain. Hospital course as noted below. Patient discharged home in stable condition on 09/03. 1. JESI, resolved ??? Nephrology followed. Creatinine 3.10 on admit, baseline around 1.0. Renal ultrasound normal. UA with some protein, otherwise benign. Improved back to baseline by day of discharge with IV fluid resuscitation so most consistent with prerenal etiology secondary to poor appetite, weight loss and hypotension as below. Further medication management as below. 2. Syncope secondary to orthostatic hypotension, resolved; history of essential hypertension ??? Orthostatic hypotension noted on admission and patient quite dry appearing with JESI as above. Suspected due to decreased p.o. intake from Ozempic leading to lower blood pressures at baseline in setting of home blood pressure medication. BP meds were held for the majority of the hospitalization. Normotensive to slightly hypertensive on day of discharge and JESI resolved as above. Discharged on Toprol 50 mg daily and valsartan 80 mg daily. Recommended patient follow-up with PCP for uptitration of medications as needed. 3. Lactic acidosis secondary to starvation ketosis, resolved ??? Lactic acid 4.4 on admit, improved with IV fluid resuscitation. Initial bicarb 17 with anion gap of 25 on admit, anion gap resolved with IV fluid resuscitation as well. 4. Right ankle fracture ??? PT/OT/case management followed. X-ray on admit showed nondisplaced oblique fracture of the lateral malleolus as well as avulsion fracture of the posterior malleolus with soft tissue swelling. Case was discussed with orthopedics who recommended splinting and the patient remain nonweightbearing until she follows up with orthopedic surgery in the office. Patient did well with PT and OT stable for home on discharge with outpatient physical therapy. She was provided with the appropriate equipment at home that will allow her to remain nonweightbearing until she follows up with orthopedics in the office. 5. Hyponatremia, resolved ??? Sodium 129 on admit, resolved with IV fluid resuscitation. 6. Severe protein calorie malnutrition ??? Nutrition followed. Criteria for medication on admit as evidenced by p.o. eating less 50% of this to be nutrition needs x 1 month and 60% weight loss x 2 months. This is presumed secondary to GI dysfunction and inadequate oral intake due to Ozempic. Given protein supplements during hospitalization and recommended that these are continued on discharge. 7. Type 2 diabetes mellitus ??? Patient was recently started on Ozempic (more content not included)... [facility]10-19-2025 Progress note Author Frantz Gunderson [facility] Note Date/Time September 02, 2025 1 :43pm [facility] Medical Records Department [address] [place] [address] Progress Note - Hospitalist 09/02/25 1230 MR#: [id number] Acct: [id number] Name: HEIDI ANDREWS Rep #:[id number] : 1970 55 From: Frantz Gunderson DO PCP: Dr. Red Perez MD Status:ADM I N Location: [place] [address] Reason for Visit Chief Complaint: Syncope, right ankle injury Subjective Subjective Patient was seen and examined today, her creatinine is 1.34. I had entertained discharging her but due to her ankle fracture, she will need set up with orthopedic equipment and I think is better if she goes home tomorrow. Patient'sblood sugars are adequately controlled at this time. Objective Data Objective Data Vital Signs: Vital Signs Temp Pulse Resp BP Pulse Ox O2 Del Method 97.2 F L 94 16 115/61 100 Room Air 09/02/25 08:43 09/02/25 08:43 09/02/25 08:43 09/02/25 08:43 09/02/25 08:43 09/02/25 08:43 Oxygen Delivery Method Room Air Weight: 94 kg Body Mass Index (BMI) 33.4 Intake & Output: Intake and Output for Last 24 Hours 08/31/25 09/01/25 09/02/25 23:59 23:59 23:59 Intake Total 1290 / 1740 3825 / 3945 1120 / 1120 Balance 1290 / 1740 3825 / 3945 1120 / 1120 Medical Nutrition Assessment Dietitian: Malnutrition Criteria Met Start: 08/31/25 14:35 Freq: Status: Active Protocol: Document 08/31/25 14:36 SB (Rec: 08/31/25 14:36 SB [id number]) Nutrition Malnutrition Evidence of Yes Malnutrition Exists Malnutrition (severe Acute Illness/Injury ): Evidenced By Suboptimal Energy Intake (Severe),Weight Loss (Severe) Clinical Problem Acute Disease or Injury Related Malnutrition Etiology severe related to GI dysfunction, inadequate oral intake, and ozempic Signs/Symptoms as evidenced by PO meeting <50% of estimated nutrition needs x 1 month and 16% weight loss x 2 months Status Active Problem Recommendation Dietitian Adjust to consistent carbohydrate diet. Recommendations/ Will order 240mL chocolate glucerna shake with Changes breakfast and dinner. Pt will maintain weight while acutely ill. Lab / Micro Data 08/31/25 09:50 09/02/25 03:50 Labs: Laboratory Results - last 24 hr 09/01/25 16:52: POC Glucose 146 H 09/01/25 22:10: POC Glucose 156 H 09/02/25 00:12: U Random Total Protein 7.1, Urine Creatinine 55.60, Protein/Creatinin Ratio 128 09/02/25 03:50: Sodium 135, Potassium 3.8, Chloride 104, Carbon Dioxide 18.9 L, Anion Gap 13, BUN 23 H, Creatinine 1.34 H, Estim Creat Clear Calc 56.09, Est GFR(MDRD) Non-Af 47 L, BUN/Creatinine Ratio 16.9, Glucose 106 H, Calcium 8.7 09/02/25 06:42: POC Glucose 123 H 09/02/25 11:16: POC Glucose 123 H Physical Exam Narrative alert, oriented x3, no apparent distress and healthy appearing General Appearance: cooperative, well kempt and well developed Orientation / Consciousness: awake, oriented to person, oriented to place and oriented to time HEENT normocephalic, head/scalp atraumatic, hearing grossly normal bilaterally and moist oral mucous membranes Eyes PERRL, EOMs intact bilaterally and conjunctivae normal Neck supple, no JVD, thyroid normal and no carotid bruits General: trachea midline Resp normal respiratory effort, no retractions, no use of accessory muscles and clearto auscultation bilaterally Auscultation: Negative for rales, rhonchi or wheezes Cardio regular rate, regular rhythm, S1 normal heart sound, S2 normal heart sound, no murmurs, no rub and no gallops GI normal to inspection, nondistended, normoactive bowel sounds, soft to palpation,non-tender and non-distended Extremity Extremity Narrative: Right lower extremity is encased in a splint Skin no rashes or lesions noted General Skin Exam: no breakdown Neuro oriented x3, CN's II-XII intact bilaterally, no focal motor deficits and no sensory deficits noted Sensorium / Orientation: awake and alert Speech: speech normal Psych affect normal Assessment & Plan Assessment/Plan (1) JESI (acute kidney injury): PLAN: Plan 1. Acute kidney injury-secondary to dehydration and use of diuretics for hypertension, also due to emesis from Ozempic-continue IV fluids at 100 cc/h, labs will be repeated tomorrow #2 syncope secondary to orthostatic hypotension secondary to #1-patient will be seen by PT and OT #3 lactic acidosis secondary to starvation ketoacidosis and a backdrop of Glucophage usage-patient will be given IV fluids #4 orthostatic hypotension secondary to dehydration and use of blood pressure medications-patient's blood pressure medications will be held #5 nondisplaced oblique fracture of the lateral malleolus as well as avulsion fracture of the posterior malleolus of the right ankle-patient is currently in asplint, she is nonweightbearing and will be seen by PT and OT, she will need follow-up with orthopedic surgery as an outpatient, she will need orthopedic equipment at the time of discharge, she will need to follow-up with Dr. Prakash within the next 1 to 2 weeks, I talked briefly with Dr. Prakash today and he hasthe patient's contact information including her phone number. She needs to remain nonweightbearing on the right ankle/leg #6 essential hypertension-again due to the patient's orthostatic hypotension, her blood pressure medicines are being held #7 hyponatremia secondary to volume loss-patient is on normal saline, BMP will be rechecked tomorrow #8 type 2 diabetes-sliding scale insulin will be administered per fingerstick blood sugars #9 iron deficiency anemia-patient is currently getting worked up as an outpatient regarding this by Dr. Chapman #10 severe acute protein and caloric malnutrition-severe related to GI dysfunction, inadequate oral intake and Ozempic as evidenced by p.o. meeting less than 50% of estimated nutritional needs x 1 month and 16% weight loss x 2 months-diet was adjusted to consistent carbohydrate, 240 cc of chocolate Glucerna shake with breakfast and dinner was ordered, nutritional services is monitoring patient Total clinical time spent by myself addressing the patient's medical issues, reviewing all of her data, and collaborating with patient's care team: 35 minutes Charges/Coding Visit Charges Inpatient E&M: 12801 Subs Hosp L2 09/02/25 8554 <Electronically signed by Frantz Gunderson DO> Cosigner Signature (if applicable): CC: ~ Signed [facility] Work Phone: [phone] 445-855110-19-2025 Discharge summary Author Frantz Gunderson [facility] Note Date/Time September 02, 2025 1 :24pm [facility] Medical Records Department [address] [place] [address] Instructions for Home/Discharge Instructions 09/02/25 1217 MR#: [id number] Acct: [id number] Name: HEIDI ANDREWS Rep #:[id number] : 1970 55 From: Frantz Gunderson DO PCP: Dr. Red Perez MD Status:ADM I N Discharge Instructions DC O2, CPAP, BIPAP needs Home O2 Discharge instructions: No Dressing / Incision Discharge Activity: Return to Normal Activity Weight Bearing Status: Full weight bearing Follow Up Care Test Results: Test results from this visit will be discussed in further detail at your follow- up appointment, if applicable. Discharge Plan Admission Admit Date/Time: 08/31/25 12:54 Primary Reason for Your Visit: Acute kidney injury, hyponatremia, starvation ketoacidosis Attending Provider: Frantz Gunderson Primary Care Provider: Red Perez Consulting Providers: Memo Valdez Instructions Additional Instructions / Restrictions: You are being discharged on no medications for diabetes, please monitor your blood sugars, if they are consistently above 180 please call your PCP for advice Discharge Orders/Prescriptions Prescriptions: Continued levothyroxine [Levoxyl] 88 mcg tablet 88 mcg PO DAILY gemfibrozil 600 mg tablet 600 mg PO BID lamotrigine 150 mg tablet 150 mg PO BID fluoxetine [Prozac] 20 mg capsule 60 mg PO DAILY oxybutynin chloride 5 mg tablet 5 mg PO BID folic acid 1 mg tablet 1 mg PO QDAY Qty: 90 0RF mecobalamin (vitamin B12) 1,000 mcg tablet,chewable 1,000 mcg PO QDAY Qty: 90 0RF risperidone 1 mg tablet 1.5 mg PO QHS ondansetron HCl 4 mg tablet 4 mg PO TID PRN (Reason: nausea) fluticasone furoate-vilanterol 200-25 mcg/dose blister with device 1 ea INHALATION Q24H magnesium oxide 400 mg magnesium capsule 400 mg PO QDAY Qty: 30 2RF Discontinued metformin 1,000 mg tablet 1,000 mg PO BID valsartan-hydrochlorothiazide [Diovan HCT] 320-12.5 mg tablet 1 tab PO DAILY metoprolol succinate [Toprol XL] 200 mg tablet extended release 24 hr 200 mg PO DAILY Ozempic 0.25 mg or 0.5 mg (2 mg/3 mL) pen injector 0.25 mg subcut QWEEK potassium chloride 20 mEq tablet,ER particles/crystals 20 meq PO DAILY Referrals / Follow Up: Memo Valdez MD [Med Staff - Consulting, Nephrology] - See Referral Note Referral Note: Call the office on 09/03/2025 for a follow-up appointment within 1 to 2 weeks, tell them that you were hospitalized and saw Dr. Valdez in the hospital Red Perez MD [Primary Care Provider, Family Practice] - See Referral Note Referral Note: In 2 weeks Disposition Disposition (needs filled in before D/C Order can be placed): Home, Self Care 09/02/25 1224<Electronically signed by Frantz Gunderson DO>Frantz Gunderson DO CC: Dr. Memo Valdez MD; Dr. Red Perez MD ~ Signed [facility] Work Phone: 1([phone] 948-901510-18-2025 Progress note Author [facility] Note Date/Time September 01, 2025 8 :37pm [facility] Medical Records Department [address] [place] [address] Progress Note - Hospitalist 09/01/251934 MR#: [id number] Acct: [id number] Name: HEIDI ANDREWS Rep #:[id number] : 1970 55 From: Frantz Gunderson DO PCP: Dr. Red Perez MD Status:ADM I N Location: AR3 [id number] Reason for Visit Chief Complaint: Syncope, right ankle injury Subjective Subjective Patient was seen and examined today, she overall feels better, her labs have improved, I reviewed nephrology's note and I elected to decrease her fluids to 100 cc/h. Objective Data Objective Data Vital Signs: Vital Signs Temp Pulse Resp BP Pulse Ox O2 Del Method 98.0 F 84 16 99/59 L 96 Room Air 09/01/25 15:57 09/01/25 15:57 09/01/25 15:57 09/01/25 15:57 09/01/25 15:57 09/01/25 15:57 Oxygen Delivery Method Room Air Weight: 94 kg Body Mass Index (BMI) 33.4 Intake & Output: Intake and Output for Last 24 Hours 08/30/25 08/31/25 09/01/25 23:59 23:59 23:59 Intake Total 1290 / 1740 3825 / 3825 Balance 1290 / 1740 3825 / 3825 Medical Nutrition Assessment Dietitian: Malnutrition Criteria Met Start: 08/31/25 14:35 Freq: Status: Active Protocol: Document 08/31/25 14:36 SB (Rec: 08/31/25 14:36 SB [id number]) Nutrition Malnutrition Evidence of Yes Malnutrition Exists Malnutrition (severe Acute Illness/Injury ): Evidenced By Suboptimal Energy Intake (Severe),Weight Loss (Severe) Clinical Problem Acute Disease or Injury Related Malnutrition Etiology severe related to GI dysfunction, inadequate oral intake, and ozempic Signs/Symptoms as evidenced by PO meeting <50% of estimated nutrition needs x 1 month and 16% weight loss x 2 months Status Active Problem Recommendation Dietitian Adjust to consistent carbohydrate diet. Recommendations/ Will order 240mL chocolate glucerna shake with Changes breakfast and dinner. Pt will maintain weight while acutely ill. Lab / Micro Data 08/31/25 09:50 09/01/25 04:45 Labs: Laboratory Results - last 24 hr 08/31/25 22:40: Lactic Acid 3.0 H* 09/01/25 04:45: Sodium 131 L, Potassium 4.1, Chloride 97 L, Carbon Dioxide 17.2 L, Anion Gap 17 H, BUN 43 H, Creatinine 2.42 H, Estim Creat Clear Calc 31.06 L, Est GFR (MDRD) Non-Af 23 L, BUN/Creatinine Ratio 17.9, Glucose 145 H, Calcium 8.6 09/01/25 06:17: POC Glucose 131 H 09/01/25 11:23: POC Glucose 170 H 09/01/25 16:52: POC Glucose 146 H Physical Exam Narrative alert, oriented x3, no apparent distress and healthy appearing General Appearance: cooperative, well kempt and well developed Orientation / Consciousness: awake, oriented to person, oriented to place and oriented to time HEENT normocephalic, head/scalp atraumatic, hearing grossly normal bilaterally and moist oral mucous membranes Eyes PERRL, EOMs intact bilaterally and conjunctivae normal Neck supple, no JVD, thyroid normal and no carotid bruits General: trachea midline Resp normal respiratory effort, no retractions, no use of accessory muscles and clearto auscultation bilaterally Auscultation: Negative for rales, rhonchi or wheezes Cardio regular rate, regular rhythm, S1 normal heart sound, S2 normal heart sound, no murmurs, no rub and no gallops GI normal to inspection, nondistended, normoactive bowel sounds, soft to palpation,non-tender and non-distended Extremity Extremity Narrative: Right lower extremity is encased in a splint Skin no rashes or lesions noted General Skin Exam: no breakdown Neuro oriented x3, CN's II-XII intact bilaterally, no focal motor deficits and no sensory deficits noted Sensorium / Orientation: awake and alert Speech: speech normal Psych affect normal Assessment & Plan Assessment/Plan (1) JESI (acute kidney injury): PLAN: Plan 1. Acute kidney injury-secondary to dehydration and use of diuretics for hypertension, also due to emesis from Ozempic-continue IV fluids at 100 cc/h, labs will be repeated tomorrow #2 syncope secondary to orthostatic hypotension secondary to #1-patient will be seen by PT and OT #3 lactic acidosis secondary to starvation ketoacidosis and a backdrop of Glucophage usage-patient will be given IV fluids #4 orthostatic hypotension secondary to dehydration and use of blood pressure medications-patient's blood pressure medications will be held #5 nondisplaced oblique fracture of the lateral malleolus as well as avulsion fracture of the posterior malleolus of the right ankle-patient is currently in asplint, she is nonweightbearing and will be seen by PT and OT, she will need follow-up with orthopedic surgery as an outpatient #6 essential hypertension-again due to the patient's orthostatic hypotension, her blood pressure medicines are being held #7 hyponatremia secondary to volume loss-patient is on normal saline, BMP will be rechecked tomorrow #8 type 2 diabetes-sliding scale insulin will be administered per fingerstick blood sugars Total clinical time spent by myself addressing the patient's medical issues, reviewing all of her data, and collaborating with patient's care team: 35 minutes Charges/Coding Visit Charges Inpatient E&M: 93633 Subs Hosp L2 09/01/251936 <Electronically signed by Frantz Gunderson DO> Cosigner Signature (if applicable): CC: ~ Signed [facility] Work Phone: 1(377) 937-466310-18-2025 Consult note Author Memo Valdez [facility] Note Date/Time September 01, 2025 5 :56pm [facility] Medical Records Department [address] [place] [address] Consultation - Nephrology 09/01/25 1652 MR#: [id number] Acct: [id number] Name: HEIDI ANDREWS Rep #:[id number] : 1970 55 From: Memo carlton MD PCP: Dr. Red Perez MD Status:ADM I N Location: [place] [address] Assessment & Plan Assessment/Plan (1) JESI (acute kidney injury): PLAN: Cr was normal early this year. last month around 1.4 or so. this admit came in with 3.1 better at 2.4 today. renal US is ok. UA shows some protein. will send urine PCR. BP was low, home BP meds on hold. continue fluids. several constitutional symptoms including weight loss. as per family she was sick beforeGLP1 agonist initiation as well. will send serologies. protein gap is a little high, will send kappa/lamnda assay. maintain fluids for today. HPI Consult Data Date of Consult: 09/01/25 HPI Narrative Reason for Consultation: JESI HPI Narrative: HEIDI ANDREWS, is a 55 F who presents with syncope, hypotension, JESI. several complaints over last 3 months or so. poor appetite weight loss, compounded by initiation of GLP1 agonist. apparently lost about 60 lbs or so. no urinary complaints. cr was normal before now increased. currently on IV fluids. no hematuria. [facility] Medical History (Updated 08/31/25 @ 13:40 by Sweta Simms) BiPAP (biphasic positive airway pressure) dependence Asthma Irregular heart beat Sleep apnea Wears glasses Thyroid disease Diabetes Anemia Former smoker Diabetes Anxiety Psoriasis Hypothyroid Vitamin D deficiency Hypertriglyceridemia Bipolar disorder, unspecified HTN (hypertension) Home Medications ?Medication ?Instructions ?Recorded ?Last Taken ?Type gemfibrozil 600 mg tablet 600 mg PO BID high blood pre ssu 11/10/22 08/31/25 08:00 History lamotrigine 150 mg tablet 150 mg PO BID high blood pre ssure 11/10/22 08/31/25 08:00 History levothyroxine 88 mcg tablet 88 mcg PO DAILY hypo thyro id 11/10/22 08/31/25 06:00 History (Levoxyl) metformin 1,000 mg tablet 1,000 mg PO BID diabetes 08/31/25 08:00 History metoprolol succinate 200 mg 200 mg PO DAILY heart rate /htn 11/10/22 08/31/25 08:00 History tablet,extended release 24 hr (Toprol XL) valsartan 320 1 tab PO DAILY blood pressur e 11/10/22 08/31/25 08:00 History mg-hydrochlorothiazide 12.5 mg tablet (Diovan HCT) oxybutynin chloride 5 mg tablet 5 mg PO BID bladder Unknown History fluoxetine 20 mg capsule (Prozac) 60 mg PO DAILY bipol ar 03/08/25 08/31/25 08:00 History folic acid 1 mg tablet 1 mg PO QDAY supplement #90 tabs 05/07/25 08/31/25 08:00 Rx mecobalamin (vitamin B12) 1,000 1,000 mcg PO QDAY supp lement #90 05/07/25 08/31/25 08:00 Rx mcg chewable tablet tabs magnesium oxide 400 mg PO QDAY supplement #3 0 caps 06/01/25 08/31/25 08:00 Rx risperidone 1 mg tablet 1.5 mg PO QHS rls 06/04/25 1 22:48 History semaglutide 0.25 mg or 0.5 mg (2 0.25 mg subcut QWEEK 08/27/25 Unknown History mg/3 mL) subcutaneous pen injector (Ozempic) Held on 08/31/25. Instructions: skipped this week 08/31/25 fluticasone furoate 200 1 ea inhalation Q24H asthma 08/31/25 08/30/25 08:00 History mcg-vilanterol 25 mcg/dose inhalation powder ondansetron HCl 4 mg tablet 4 mg PO TID PRN nausea Unknown History potassium chloride 20 mEq 20 meq PO DAILY supplement 1 08/30/25 08:00 History tablet,extended release(part/cryst) Allergy/AdvReac Type Severity Reaction Status Date / Time No Known Allergies Allergy Verified 08/31/25 10:07 Family History Father Hypertension Diabetes Sister Anxiety MCTD (mixed connective tissue disease) Mother Psoriatic arthritis Surgical History Hx of section Hx of bilateral breast reduction surgery Social History household members: spouse current occupational status: employed current occupation: [employer] Smoking Status: Former smoker alcohol intake: never substance use type: does not use ROS ROS Narrative negative except above Physical Exam Narrative Alert awake oriented x 3 no obvious distress no pallor no icterus no JVD s1s2 no murmurs lungs clear abdomen soft no organomegaly Medical Records Data Medical Nutrition Assessment Dietitian: Malnutrition Criteria Met Start: 08/31/25 14:35 Freq: Status: Active Protocol: Document 08/31/25 14:36 SB (Rec: 08/31/25 14:36 SB [id number]) Nutrition Malnutrition Evidence of Yes Malnutrition Exists Malnutrition (severe Acute Illness/Injury ): Evidenced By Suboptimal Energy Intake (Severe),Weight Loss (Severe) Clinical Problem Acute Disease or Injury Related Malnutrition Etiology severe related to GI dysfunction, inadequate oral intake, and ozempic Signs/Symptoms as evidenced by PO meeting <50% of estimated nutrition needs x 1 month and 16% weight loss x 2 months Status Active Problem Recommendation Dietitian Adjust to consistent carbohydrate diet. Recommendations/ Will order 240mL chocolate glucerna shake with Changes breakfast and dinner. Pt will maintain weight while acutely ill. Lab / Micro Data 08/31/25 09:50 09/01/25 04:45 Labs: Laboratory Results - last 24 hr 08/31/25 17:50: Lactic Acid 4.3 H* 08/31/25 22:40: Lactic Acid 3.0 H* 09/01/25 04:45: Sodium 131 L, Potassium 4.1, Chloride 97 L, Carbon Dioxide 17.2 L, Anion Gap 17 H, BUN 43 H, Creatinine 2.42 H, Estim Creat Clear Calc 31.06 L, Est GFR (MDRD) Non-Af 23 L, BUN/Creatinine Ratio 17.9, Glucose 145 H, Calcium 8.6 09/01/25 06:17: POC Glucose 131 H 09/01/25 11:23: POC Glucose 170 H Imaging Radiology Impression Renal Ultrasound 08/31/25 13:05 IMPRESSION: NORMAL RENAL ULTRASOUND. Reading Location: [facility] 09/01/25 6799 <Electronically signed by Memo Valdez MD> Cosigner Signature (if applicable): CC: Dr. Red Perez MD~ Signed [facility] Work Phone: [phone] History and physical note Author Frantz [facility] Note Date/Time September 01, 2025 1 :18pm [facility] Medical Records Department [address] [place] [address] H&P Exam - Hospitalist 08/31/25 1849 MR#: [id number] Acct: [id number] Name: HEIDI ANDREWS Rep #:[id number] : 1970 55 From: Frantz Gunderson DO PCP: Dr. Red Perez MD Status:ADM I N Location: [place] [address] HPI - General General Date of Admission: 08/31/25 Date of Service: 08/31/25 Chief Complaint: Syncope, right ankle injury HPI Narrative HEIDI ANDREWS, is a 55 F who presents to the emergency room at [facility] after sustaining a syncopal episode at home after standing up. According to the emergency room physician, patient's blood pressure by squad was in the 60s systolic, she suffered an injury to her right ankle from the fall. Workup in the emergency room included labs which showed an elevated lactic acid level of 4.4, chemistry profile was abnormal for a glucose of 199, creatinine of3.10, a BUN of 47, a sodium of 129, chloride of 86, and a bicarb of 17.7. Patient's anion gap was elevated at 25. Patient CBC was abnormal for hemoglobinof 10.9. Urinalysis showed no red blood cells, there was 0-5 white cells and rare bacteria. X-rays of the patient's right ankle revealed a lateral malleolusfracture, a splint was applied by the emergency room physician. Patient was given IV fluids in the emergency room with some improvement of her blood pressure-systolic readings were in the 90s. Patient will be admitted for acute kidney injury, hyponatremia, she will be given IV fluids, ultrasound kidneys will be obtained and she will be seen by nephrology. Labs will be closely monitored. Patient's blood pressure medication was stopped. Patient's anion gap is probably from starvation ketoacidosis, patient's elevatedlactic acid level could be a result of her use of metformin with a backdrop of starvation. [facility] Medical History (Updated 08/31/25 @ 13:40 by Sweta Simms) BiPAP (biphasic positive airway pressure) dependence Asthma Irregular heart beat Sleep apnea Wears glasses Thyroid disease Diabetes Anemia Former smoker Diabetes Anxiety Psoriasis Hypothyroid Vitamin D deficiency Hypertriglyceridemia Bipolar disorder, unspecified HTN (hypertension) Home Medications ?Medication ?Instructions ?Recorded ?Last Taken ?Type gemfibrozil 600 mg tablet 600 mg PO BID high blood pre ssu 11/10/22 08/31/25 08:00 History lamotrigine 150 mg tablet 150 mg PO BID high blood pre ssure 11/10/22 08/31/25 08:00 History levothyroxine 88 mcg tablet 88 mcg PO DAILY hypo thyro id 11/10/22 08/31/25 06:00 History (Levoxyl) metformin 1,000 mg tablet 1,000 mg PO BID diabetes 08/31/25 08:00 History metoprolol succinate 200 mg 200 mg PO DAILY heart rate /htn 11/10/22 08/31/25 08:00 History tablet,extended release 24 hr (Toprol XL) valsartan 320 1 tab PO DAILY blood pressur e 11/10/22 08/31/25 08:00 History mg-hydrochlorothiazide 12.5 mg tablet (Diovan HCT) oxybutynin chloride 5 mg tablet 5 mg PO BID bladder Unknown History fluoxetine 20 mg capsule (Prozac) 60 mg PO DAILY bipol ar 03/08/25 08/31/25 08:00 History folic acid 1 mg tablet 1 mg PO QDAY supplement #90 tabs 05/07/25 08/31/25 08:00 Rx mecobalamin (vitamin B12) 1,000 1,000 mcg PO QDAY supp lement #90 05/07/25 08/31/25 08:00 Rx mcg chewable tablet tabs magnesium oxide 400 mg PO QDAY supplement #3 0 caps 06/01/25 08/31/25 08:00 Rx risperidone 1 mg tablet 1.5 mg PO QHS rls 06/04/25 1 22:48 History semaglutide 0.25 mg or 0.5 mg (2 0.25 mg subcut QWEEK 08/27/25 Unknown History mg/3 mL) subcutaneous pen injector (Channel [employer]) Held on 08/31/25. Instructions: skipped this week 08/31/25 fluticasone furoate 200 1 ea inhalation Q24H asthma 08/31/25 08/30/25 08:00 History mcg-vilanterol 25 mcg/dose inhalation powder ondansetron HCl 4 mg tablet 4 mg PO TID PRN nausea Unknown History potassium chloride 20 mEq 20 meq PO DAILY supplement 1 08/30/25 08:00 History tablet,extended release(part/cryst) Allergy/AdvReac Type Severity Reaction Status Date / Time No Known Allergies Allergy Verified 08/31/25 10:07 Family History Father Hypertension Diabetes Sister Anxiety MCTD (mixed connective tissue disease) Mother Psoriatic arthritis Surgical History Hx of section Hx of bilateral breast reduction surgery Social History household members: spouse current occupational status: employed 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 Smoking Status: Former smoker alcohol intake: never substance use type: does not use ROS Constitutional Constitutional: Reports weakness; Denies anorexia, change in weight, fever(s) ornight sweats Eyes Eyes: Denies blurry vision, change in vision, discharge from eye(s) or eye pain ENT HEENT: Denies abnormal hearing, dysphagia or hearing loss Cardiovascular Cardiovascular: Reports lightheadedness; Denies chest pain, claudication, edema or palpitations Respiratory/Chest Respiratory/Chest: Denies cough, hemoptysis, shortness of breath at rest or shortness of breath with exertion Gastrointestinal Gastrointestinal: Denies abdominal pain, constipation, diarrhea, hematemesis, hematochezia, melena, nausea or vomiting Genitourinary Genitourinary: Denies dysuria, hematuria, urinary frequency, urinary hesitancy, urinary incontinence or urinary urgency Musculoskeletal Musculoskeletal: Reports joint pain; Denies back pain, joint stiffness, joint swelling, myalgias or neck pain Neurologic Neurologic: Reports syncope; Denies abnormal gait, abnormal speech, dizziness, focal weakness, headache(s), loss of vision, numbness, other visual disturbances, paresthesias or tingling Psychiatric Psychiatric: Denies anxiety, cognitive impairment, depression, irritability, mood swings or suicidal ideation Endocrine Endocrinology: Denies change in body appearance, cold intolerance, excessive sweating, heat intolerance, polydipsia or polyuria Hematologic/Lymphatic Hematologic/Lymphatic: Denies none, anemia, easy bleeding, easy bruising or lymphadenopathy Allergic/Immunologic Allergic/Immunologic: Denies rhinitis, urticaria, eczemia or asthma Vital Signs Vital Signs Vital Signs: 08/31/25 10:00 08/31/25 10:05 08/31/25 11:02 Temperature 97.6 F L Temperature Source Oral Pulse Rate 77 76 Respiratory Rate 18 18 Respiratory Effort Normal Non-Labored Respiratory Pattern Normal Blood Pressure 102/62 104/70 Blood Pressure Mean 75 81 Blood Pressure Source Blood Pressure Position Blood Pressure Location Pulse Ox 100 97 Oxygen Delivery Method Room Air Room Air 08/31/25 12:00 08/31/25 12:04 08/31/25 16:00 Temperature 98.1 F 98.1 F 97.3 F L Temperature Source Oral Oral Pulse Rate 72 72 75 Respiratory Rate 16 16 15 Respiratory Effort Respiratory Pattern Blood Pressure 96/52 L 96/52 L 99/59 L Blood Pressure Mean 66 66 72 Blood Pressure Source Monitor Blood Pressure Position Semi-Fowlers Blood Pressure Location Right Forearm Pulse Ox 99 99 100 Oxygen Delivery Method Room Air Room Air Weight Weight: 94 kg Body Mass Index (BMI) 33.4 Physical Exam Const alert, oriented x3, no apparent distress and healthy appearing General Appearance: cooperative, well kempt and well developed Orientation / Consciousness: awake, oriented to person, oriented to place and oriented to time HEENT normocephalic, head/scalp atraumatic, hearing grossly normal bilaterally and moist oral mucous membranes Eyes PERRL, EOMs intact bilaterally and conjunctivae normal Neck supple, no JVD, thyroid normal and no carotid bruits General: trachea midline Resp normal respiratory effort, no retractions, no use of accessory muscles and clearto auscultation bilaterally Auscultation: Negative for rales, rhonchi or wheezes Cardio regular rate, regular rhythm, S1 normal heart sound, S2 normal heart sound, no murmurs, no rub and no gallops GI normal to inspection, nondistended, normoactive bowel sounds, soft to palpation,non-tender and non-distended Extremity Extremity Narrative: Right lower extremity is encased in a splint Skin no rashes or lesions noted General Skin Exam: no breakdown Neuro oriented x3, CN's II-XII intact bilaterally, no focal motor deficits and no sensory deficits noted Sensorium / Orientation: awake and alert Speech: speech normal Psych affect normal Results Medical Records Data Medical Nutrition Assessment Dietitian: Malnutrition Criteria Met Start: 08/31/25 14:35 Freq: Status: Active Protocol: Document 08/31/25 14:36 SB (Rec: 08/31/25 14:36 SB [id number]) Nutrition Malnutrition Evidence of Yes Malnutrition Exists Malnutrition (severe Acute Illness/Injury ): Evidenced By Suboptimal Energy Intake (Severe),Weight Loss (Severe) Clinical Problem Acute Disease or Injury Related Malnutrition Etiology severe related to GI dysfunction, inadequate oral intake, and ozempic Signs/Symptoms as evidenced by PO meeting <50% of estimated nutrition needs x 1 month and 16% weight loss x 2 months Status Active Problem Recommendation Dietitian Adjust to consistent carbohydrate diet. Recommendations/ Will order 240mL chocolate glucerna shake with Changes breakfast and dinner. Pt will maintain weight while acutely ill. Lab / Micro Data 08/31/25 09:50 09/01/25 04:45 Labs: Laboratory Results - last 24 hr 08/31/25 09:50: WBC 4.9, RBC 4.11 L, Hgb 10.9 L, Hct 33.2 L, MCV 80.8 L, MCH 26.5 L, MCHC 32.8, RDW Std Deviation 40.0, RDW Coeff of Sohan 13.8, Plt Count 240,MPV 10.1, Immature Gran % (Auto) 1.200 H, Neut % (Auto) 72.5 H, Lymph % (Auto) 16.0 L, Crook % (Auto) 6.7, Eos % (Auto) 3.0, Baso % (Auto) 0.6, Absolute Neuts (auto) 3.6, Absolute Lymphs (auto) 0.79 L, Nucleated RBC % 0, PT 16.0 H, INR 1.3, APTT 27.1, Sodium 129 L, Potassium 3.8, Chloride 86 L, Carbon Dioxide 17.7 L, Anion Gap 25 H, BUN 47 H, Creatinine 3.10 H, Estim Creat Clear Calc 25.29 L, Est GFR (MDRD) Non-Af 17 L, BUN/Creatinine Ratio 15.0, Glucose 199 H, Calcium 10.5, Total Bilirubin 0.60, Direct Bilirubin 0.33 H, AST 17, ALT 9, Alkaline Phosphatase 186 H, Troponin T High Sens 14, Total Protein 8.6 H, Albumin 4.9, Globulin 3.7 08/31/25 10:20: Lactic Acid 4.4 H* 08/31/25 11:16: Urine Color Yellow, Urine Clarity Sl. Cloudy, Urine pH 5.0, Ur Specific [place] 1.025, Urine Protein 100 H, Urine Glucose (UA) Normal, Urine Ketones 5 H, Urine Occult Blood 10 H, Urine Nitrite Negative, Urine Bilirubin 3 H, Urine Urobilinogen 1 H, Ur Leukocyte Esterase 25 H, Urine RBC 0 SEEN, Urine WBC 0-5 SEEN, Ur Squamous Epith Cells 10-25 SEEN, Amorphous Sediment 1+, Urine Bacteria RARE, Urine Mucus 0 SEEN 08/31/25 11:48: Troponin T Hi Sens 2 Hr 12 08/31/25 15:53: POC Glucose 143 H Imaging Radiology Impression Chest X-Ray 08/31/25 10:12 IMPRESSION: Stable examination. No acute abnormality is seen. Reading Location: [facility] 08/31/25 10:30 IMPRESSION: Cerebral atrophy more pronounced in the anterior frontal lobes bilaterally as well as in the Reading Location: [facility] Ankle X-Ray 08/31/25 10:35 IMPRESSION: Nondisplaced oblique fracture of the lateral malleolus as well as avulsion fracture of the posterior malleolus. Mild asymmetry of the ankle mortise as well as soft tissue swelling. Reading Location: [facility] Renal Ultrasound 08/31/25 13:05 IMPRESSION: NORMAL RENAL ULTRASOUND. Reading Location: [facility] Assessment & Plan Assessment/Plan (1) JESI (acute kidney injury): PLAN: Plan 1. Acute kidney injury-secondary to dehydration and use of diuretics for hypertension, also due to emesis from Ozempic-patient will be admitted to [place] [address] and given IV fluids, nephrology will be consulted, labs will be monitored. Ultrasound of the kidneys will be obtained. #2 syncope secondary to orthostatic hypotension secondary to #1-patient will be seen by PT and OT #3 lactic acidosis secondary to starvation ketoacidosis and a backdrop of Glucophage usage-patient will be given IV fluids #4 orthostatic hypotension secondary to dehydration and use of blood pressure medications-patient's blood pressure medications will be held #5 nondisplaced oblique fracture of the lateral malleolus as well as avulsion fracture of the posterior malleolus of the right ankle-patient is currently in asplint, she is nonweightbearing and will be seen by PT and OT, she will need follow-up with orthopedic surgery as an outpatient #6 essential hypertension-again due to the patient's orthostatic hypotension, her blood pressure medicines are being held #7 hyponatremia secondary to volume loss-patient is on normal saline, BMP will be rechecked tomorrow #8 type 2 diabetes-sliding scale insulin will be administered per fingerstick blood sugars Total clinical time spent by myself addressing the patient's medical issues, reviewing all of her data, and collaborating with patient's care team: 75 minutes Charges/Coding Visit Charges Inpatient E&M: 92401 Subs Hosp L2 09/01/25 1218 <Electronically signed by Frantz Gunderson DO> Cosigner Signature (if applicable): CC: Dr. Frantz Gunderson DO; Dr. Red Perez MD~ Signed ADDENDUM by Dr. Frantz Gunderson DO on 09/01/25 at 1218 Visit Charges Inpatient E&M: 43793 Init Hosp L3 09/01/25 1218<Electronically signed by Frantz Gunderson DO> Cosigner Signature (if applicable): cc: Dr. Frantz Gunderson DO; Dr. Red Perez MD ~* Signed [facility] Work Phone: [phone]) 543-198110-17-2025 Discharge summary Author Berlin Wilson [facility] Note Date/Time August 31, 2025 5 :35pm [facility] Medical Records Department [address] [place] [address] Emergency Department Summary 08/31/25 MR#: [id number] Acct: [id number] Name: HEIDI ANDREWS Rep #:[id number] : 1970 55 From: Berlin Colon PCP: Dr. Red Perez MD Status:ADM I N Location: [place] [address] HPI History of Present Illness Chief Complaint: Hypotension Informant: patient, family and EMS Narrative Narrative: 55-year-old female presented to the emergency room with a chief complaint of syncope. Patient states that 2 months ago she started Ozempic. She states thatshe has had significant nausea and has been unable to keep food down. She states that she has not been able to go to work over the past 2 weeks. About 2 weeks ago her PCP discontinued her clonidine due to lower than normal blood pressure. She has continued her metoprolol and her Diovan. She states that shedid not take her Ozempic last week. She notes that she is currently being evaluated with hematology for anemia and has received iron infusions. She states that recent blood work has resulted in her being referred to nephrology and she is scheduled next week for a liver ultrasound due to abnormal LFTs. Sheis not on any blood thinners. This morning she was sitting in her living room and went to get up and go towards the kitchen. She felt that she was going to pass out and was using the wall to help her when she eventually had a syncopal episode. She notes an injury to the right ankle with swelling and a bump on the occiput of her head. She denies any neck pain. She denies any significant headache. She denies chest pain shortness of breath. She notes that she has had black diarrhea stools but is not uncommon for her since beginning iron supplementation. [facility] Medical History (Updated 08/31/25 @ 13:40 by Sweta Simms) BiPAP (biphasic positive airway pressure) dependence Asthma Irregular heart beat Sleep apnea Wears glasses Thyroid disease Diabetes Anemia Former smoker Diabetes Anxiety Psoriasis Hypothyroid Vitamin D deficiency Hypertriglyceridemia Bipolar disorder, unspecified HTN (hypertension) Home Medications ?Medication ?Instructions ?Recorded ?Last Taken ?Type gemfibrozil 600 mg tablet 600 mg PO BID high blood pre ssu 11/10/22 08/31/25 08:00 History lamotrigine 150 mg tablet 150 mg PO BID high blood pre ssure 11/10/22 08/31/25 08:00 History levothyroxine 88 mcg tablet 88 mcg PO DAILY hypo thyro id 11/10/22 08/31/25 06:00 History (Levoxyl) metformin 1,000 mg tablet 1,000 mg PO BID diabetes 08/31/25 08:00 History metoprolol succinate 200 mg 200 mg PO DAILY heart rate /htn 11/10/22 08/31/25 08:00 History tablet,extended release 24 hr (Toprol XL) valsartan 320 1 tab PO DAILY blood pressur e 11/10/22 08/31/25 08:00 History mg-hydrochlorothiazide 12.5 mg tablet (Diovan HCT) oxybutynin chloride 5 mg tablet 5 mg PO BID bladder Unknown History fluoxetine 20 mg capsule (Prozac) 60 mg PO DAILY bipol ar 03/08/25 08/31/25 08:00 History folic acid 1 mg tablet 1 mg PO QDAY supplement #90 tabs 05/07/25 08/31/25 08:00 Rx mecobalamin (vitamin B12) 1,000 1,000 mcg PO QDAY supp lement #90 05/07/25 08/31/25 08:00 Rx mcg chewable tablet tabs magnesium oxide 400 mg PO QDAY supplement #3 0 caps 06/01/25 08/31/25 08:00 Rx risperidone 1 mg tablet 1.5 mg PO QHS rls 06/04/25 1 22:48 History semaglutide 0.25 mg or 0.5 mg (2 0.25 mg subcut QWEEK 08/27/25 Unknown History mg/3 mL) subcutaneous pen injector (Ozempic) Held on 08/31/25. Instructions: skipped this week 08/31/25 fluticasone furoate 200 1 ea inhalation Q24H asthma 08/31/25 08/30/25 08:00 History mcg-vilanterol 25 mcg/dose inhalation powder ondansetron HCl 4 mg tablet 4 mg PO TID PRN nausea Unknown History potassium chloride 20 mEq 20 meq PO DAILY supplement 1 08/30/25 08:00 History tablet,extended release(part/cryst) Allergy/AdvReac Type Severity Reaction Status Date / Time No Known Allergies Allergy Verified 08/31/25 10:07 Family History Father Hypertension Diabetes Sister Anxiety MCTD (mixed connective tissue disease) Mother Psoriatic arthritis Surgical History Hx of section Hx of bilateral breast reduction surgery Social History household members: spouse current occupational status: employed 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 Smoking Status: Former smoker alcohol intake: never substance use type: does not use ROS ROS ED Constitutional Constitutional ED: Reports chills; Denies fever(s) or weight loss Eyes Eyes: Denies change in vision or diplopia ENT ENT ED: Denies ear pain, rhinorrhea or sore throat Cardiovascular Cardiovascular: Reports other Details: Syncope ; Denies chest pain, orthopnea, palpitations or racing heartbeat Respiratory/Chest Respiratory/Chest: Reports other; Denies cough, dyspnea or orthopnea Gastrointestinal Gastrointestinal: Reports diarrhea, nausea and vomiting; Denies abdominal pain Genitourinary Genitourinary ED: Denies dysuria, hematuria or urinary frequency Musculoskeletal Musculoskeletal: Reports other Details: Right ankle pain ; Denies arthralgias or myalgias Integumentary Reports other Details: Occipital hematoma ; Denies abscess or rash Neurologic Neurologic: Denies headache(s) or weakness Psychiatric Psychiatric: Denies anxiety, depression, suicidal ideation or suicidal thoughts Endocrine Endocrinology: Denies polydipsia, polyphagia or polyuria Allergic/Immunologic Allergic/Immunologic ED: Denies mouth swelling, tongue swelling or urticaria EXAM Physical Exam Const Vital Signs: 08/31/25 10:00 08/31/25 10:05 08/31/25 11:02 Temperature 97.6 F L Temperature Source Oral Pulse Rate 77 76 Respiratory Rate 18 18 Respiratory Effort Normal Non-Labored Respiratory Pattern Normal Blood Pressure 102/62 104/70 Blood Pressure Mean 75 81 Pulse Ox 100 97 Oxygen Delivery Method Room Air Room Air 08/31/25 12:00 08/31/25 12:04 Temperature 98.1 F 98.1 F Temperature Source Oral Pulse Rate 72 72 Respiratory Rate 16 16 Respiratory Effort Respiratory Pattern Blood Pressure 96/52 L 96/52 L Blood Pressure Mean 66 66 Pulse Ox 99 99 Oxygen Delivery Method Room Air Positive well nourished and well developed General Appearance ED: well developed; Negative for pallor HEENT Reports normocephalic and moist mucous membranes HEENT Narrative: There is a small scalp hematoma in the occiput Eyes PERRL and EOMs intact bilaterally General Eye ED: Negative for pale conjunctiva or scleral icterus Neck no lymphadenopathy, supple and no JVD General: Negative for tenderness Resp normal respiratory effort and clear to auscultation bilaterally Cardio regular rate, regular rhythm and no murmurs GI normal to inspection, nondistended, normoactive bowel sounds and non-tender Palpation: soft Back/Spine no CVA tenderness and normal ROM Extremity Extremity Narrative: There is some mild swelling and ecchymosis anterior lateral of the right ankle. No fibular head tenderness. No fifth metatarsal tenderness. Achilles palpates intact. General Extremety ED: Negative for edema General Extremity: Negative for edema Neuro oriented x3 and CN's II-XII intact bilaterally Sensorium / Orientation: alert Motor Exam: strength 5/5 throughout Psych mental status grossly normal Mood & Affect: Negative for depressed or tearful Skin no rashes or lesions noted and no wounds General Skin Exam: Negative for pallor MDM MDM MDM Narrative Medical decision making narrative: Differential diagnosis includes dehydration cardiac syncope renal abnormalities electrolyte abnormalities anemia intracranial hemorrhage fracture EKG demonstrates a normal sinus rhythm. No events on the monitor. CT of the brain did not demonstrate any acute fracture. My independent interpretation a chest x-ray is no acute process. My independent interpretation of the plain films of the right ankle is an acute fracture of the distal fibula with possibleavulsion fracture of the posterior malleolus. Basic blood work shows a hemoglobin of 10.9 white count 4.9 platelet count of 240 INR 1.3 BMP with a sodium of 129 creatinine now significantly elevated 3.1 with a BUN of 47 lactic acid iselevated 4.4. I believe this is most likely due to the episode of hypotension which is not resolved as well as her metformin and her JESI. No strong evidence of UTI. Patient was placed in a posterior stirrup well-padded [facility] Neurovascular intact pre and post application. Case was discussed with Dr. Prakash from orthopedics as the patient does not have a localorthopedist. I also spoke with the hospitalist and plan of care is admission. History & Record Review Discussion w/independent historian: EMS personnel, Patient and Family Additional record(s) reviewed:: Prior outpatient record Lab Data Attestation: I reviewed the patient's lab results. Labs: Laboratory Results - last 24 hr 08/31/25 08/31/25 08/31/25 09:50 10:20 11:16 WBC 4.9 RBC 4.11 L Hgb 10.9 L Hct 33.2 L MCV 80.8 L MCH 26.5 L MCHC 32.8 RDW Std Deviation 40.0 RDW Coeff of Sohan 13.8 Plt Count 240 MPV 10.1 Immature Gran % (Auto) 1.200 H Neut % (Auto) 72.5 H Lymph % (Auto) 16.0 L Crook % (Auto) 6.7 Eos % (Auto) 3.0 Baso % (Auto) 0.6 Absolute Neuts (auto) 3.6 Absolute Lymphs (auto) 0.79 L Nucleated RBC % 0 PT 16.0 H INR 1.3 APTT 27.1 Sodium 129 L Potassium 3.8 Chloride 86 L Carbon Dioxide 17.7 L Anion Gap 25 H BUN 47 H Creatinine 3.10 H Estim Creat Clear Calc 25.29 L Est GFR (MDRD) Non-Af 17 L BUN/Creatinine Ratio 15.0 Glucose 199 H Lactic Acid 4.4 H* Calcium 10.5 Total Bilirubin 0.60 Direct Bilirubin 0.33 H AST 17 ALT 9 Alkaline Phosphatase 186 H Troponin T High Sens 14 Troponin T Hi Sens 2 Hr Total Protein 8.6 H Albumin 4.9 Globulin 3.7 Urine Color Yellow Urine Clarity Sl. Cloudy Urine pH 5.0 Ur Specific [place] 1.025 Urine Protein 100 H Urine Glucose (UA) Normal Urine Ketones 5 H Urine Occult Blood 10 H Urine Nitrite Negative Urine Bilirubin 3 H Urine Urobilinogen 1 H Ur Leukocyte Esterase 25 H Urine RBC 0 SEEN Urine WBC 0-5 SEEN Ur Squamous Epith Cells 10-25 SEEN Amorphous Sediment 1+ Urine Bacteria RARE Urine Mucus 0 SEEN 08/31/25 11:48 WBC RBC Hgb Hct MCV MCH MCHC RDW Std Deviation RDW Coeff of Sohan Plt Count MPV Immature Gran % (Auto) Neut % (Auto) Lymph % (Auto) Crook % (Auto) Eos % (Auto) Baso % (Auto) Absolute Neuts (auto) Absolute Lymphs (auto) Nucleated RBC % PT INR APTT Sodium Potassium Chloride Carbon Dioxide Anion Gap BUN Creatinine Estim Creat Clear Calc Est GFR (MDRD) Non-Af BUN/Creatinine Ratio Glucose Lactic Acid Calcium Total Bilirubin Direct Bilirubin AST ALT Alkaline Phosphatase Troponin T High Sens Troponin T Hi Sens 2 Hr 12 Total Protein Albumin Globulin Urine Color Urine Clarity Urine pH Ur Specific [place] Urine Protein Urine Glucose (UA) Urine Ketones Urine Occult Blood Urine Nitrite Urine Bilirubin Urine Urobilinogen Ur Leukocyte Esterase Urine RBC Urine WBC Ur Squamous Epith Cells Amorphous Sediment Urine Bacteria Urine Mucus Radiography Diagnostic Testing: Clinical Impression(s) from Imaging Studies Chest X-Ray 08/31/25 10:12 IMPRESSION: Stable examination. No acute abnormality is seen. Reading Location: [facility] 08/31/25 10:30 IMPRESSION: Cerebral atrophy more pronounced in the anterior frontal lobes bilaterally as well as in the Reading Location: [facility] Ankle X-Ray 08/31/25 10:35 IMPRESSION: Nondisplaced oblique fracture of the lateral malleolus as well as avulsion fracture of the posterior malleolus. Mild asymmetry of the ankle mortise as well as soft tissue swelling. Reading Location: [place] [address] EKG Initial EKG: Attestation: I personally reviewed and interpreted this EKG as follows: Comments: Normal sinus rhythm ventricular rate of 72 bpm. Management Discussion w/another healthcare provider: Hospitalist, Cutting Torch Operator (Dr. Prakash (orthopedics)) and Radiologist Discharge Plan Dx/Rx/DC Orders Clinical Impression: Iron deficiency anemia, Syncope, Ankle fracture, right, Hematoma of occipital region of scalp, JESI (acute kidney injury), Acute hyponatremia, Elevated lactic acid level Disposition Disposition: Acute Care Hospital [facility] Discharge Date/Time: 08/31/25 13:17 What to do if you have Problems For any increased pain, shortness of breath, bleeding, nausea or vomiting, chestpain, or any unexpected problems, contact your Primary Care Provider. Call [facility] ([phone]) or report to the closest Emergency Room. Call 911 if necessary. 08/31/25 1635 <Electronically signed by Berlin Wilson DO> Cosigner Signature (if applicable): CC: Dr. Red Perez MD ~ Signed [facility] Work Phone: 1(549) 431-775210-17-2025 Radiology Diagnostic study [facility]10-17-2025 Radiology Diagnostic study [facility]10-17-2025 Radiology Diagnostic study [facility] 08-31-2025 Radiology Diagnostic study [facility]10-17-2025 Radiology Diagnostic study [facility]10-17-2025 Radiology Diagnostic study [facility]10-17-2025 Radiology Diagnostic study [facility]10-17-2025 Radiology Diagnostic study note [facility]10-13-2025 Progress [facility] [address] [place] [address] OFFICE VISIT Date of Service: 08/27/25 1121 MR#: [id number] Acct: [id number] Name: HEIDI ANDREWS Rep #: [id number] : 1970 From: Glen Chapman MD Age/Sex: 55/F Location[place] [facility] [place] Status: Signed HPI Subjective Date of Service [...] follow up. Feels tired, sleeps a lot. [facility] Medical History Sleep apnea Wears glasses Thyroid [...] Known Allergies Allergy (Verified 08/27/25 11:29) Medications ?Medication ?Instructions ?Recorded ?Confirmed ?Type gemfibrozil 600 mg tablet 600 mg PO BID 11/10/2208/27 History lamotrigine 150 mg tablet 150 mg PO BID 11/10/2208/27 History levothyroxine 88 mcg tablet 88 mcg PO DAILY 11/10/22 1 History (Levoxyl) metformin 1,000 mg tablet 1,000 mg PO BID 11/10/22 History metoprolol succinate 200 mg 200 mg PO DAILY 11/10/22 1 History tablet,extended release 24 hr (Toprol XL) valsartan 320 1 tab PO DAILY 11/10/2208/15 History mg-hydrochlorothiazide 12.5 mg tablet (Diovan HCT) oxybutynin chloride 5 mg tablet 5 mg PO BID 03/05/25 1 History fluoxetine 20 mg capsule (Prozac) 60 mg PO DAILY 03/0808/27/25 History folic acid 1 mg tablet 1 mg PO QDAY #90 tabs 08/27/25 Rx mecobalamin (vitamin B12) 1,000 1,000 mcg PO QDAY #90 tabs 05/07/25 08/27/25 Rx mcg chewable tablet magnesium oxide 400 mg PO QDAY #30 caps 05/1508/27/25 Rx risperidone 1 mg tablet 1.5 mg PO QHS 06/04/2508/27 History potassium chloride 20 mEq 20 meq PO QDAY 08/27/2508/15 History tablet,extended release (K-Tab) semaglutide 0.25 mg or 0.5 mg (2 0.25 mg subcut QWEEK 08/27/25 08/27/25 History mg/3 mL) subcutaneous pen injector (Ozempic) [...] iron deficiency Qualified Code(s): D50.9 - Iron deficiencyanemia, unspecified Comment: Got IV Iron replacement. Iron [...] Deficiency of other specified B group vitamins, R53.1 - Weakness Retic Panel Count 08/27/25 D50.9 - Iron deficiency anemia, unspecified, E53.8 - Deficiency of other specified B group vitamins, R53.1 - Weakness Erythrocyte Sed Rate 08/27/25 D50.9 - Iron deficiency anemia, unspecified, E53.8 - Deficiency of other specified B group vitamins, R53.1 - Weakness CRP 08/27/25 D50.9 - Iron deficiency anemia, unspecified, E53.8 - Deficiency ofother specified B group vitamins, R53.1 - Weakness Comprehensive Metabolic Profil 08/27/25 D50.9 - Iron deficiency anemia, unspecified, E53.8 - Deficiency of other specified B group vitamins, R53.1 - Weakness Ferritin 08/27/25 D50.9 - Iron deficiency anemia, unspecified, E53.8 - Deficiency of other specified B group vitamins, R53.1 - Weakness Iron+Iron Binding Capacity 08/27/25 D50.9 - Iron deficiency anemia, unspecified, E53.8 - Deficiencyof other specified B group vitamins, R53.1 - Weakness Erythropoietin 08/27/25 D50.9 - Iron deficiency anemia, unspecified, E53.8 - Deficiency of other specified B group vitamins, R53.1 - Weakness Vitamin B12 08/27/25 D50.9 - Iron deficiency anemia, unspecified, E53.8 - Deficiency of other specified B group vitamins, R53.1 - Weakness FOLATES,SERUM (FOLIC ACID) 08/27/25 D50.9 - Iron deficiency anemia, unspecified, E53.8 - Deficiencyof other specified B group vitamins, R53.1 - Weakness Magnesium 08/27/25 D50.9 - Iron deficiency anemia, unspecified, E53.8 - Deficiency of other specified B group vitamins, R53.1 - Weakness Phosphorus 08/27/25 D50.9 - Iron deficiency anemia, unspecified, E53.8 - Deficiency of other specified B group vitamins, R53.1 - Weakness LDH 08/27/25 D50.9 - Iron deficiency anemia, unspecified, E53.8 - Deficiency ofother specified B group vitamins, R53.1 - Weakness Urinalysis, Complete 08/27/25 D50.9 - Iron deficiency anemia, unspecified, E53.8 - Deficiency of other specified B group vitamins, R53.1 - Weakness Immunoglobulins G/A/M 08/27/25 D50.9 - Iron deficiency anemia, unspecified, E53.8 - Deficiency of other specified B group vitamins, R53.1 - Weakness Hepatitis B/C Profile VIII 08/27/25 D50.9 - Iron deficiency anemia, unspecified, E53.8 - Deficiencyof other specified B group vitamins, R53.1 - Weakness GGTP 08/27/25 D50.9 - Iron deficiency anemia, unspecified, E53.8 - Deficiency of other specified B group vitamins, R53.1 - Weakness HIV 08/27/25 D50.9 - Iron deficiency anemia, unspecified, E53.8 - Deficiency ofother specified B group vitamins, R53.1 - Weakness IgG Subclasses 08/27/25 D50.9 - Iron deficiency anemia, unspecified, E53.8 - Deficiency of other specified B group vitamins, R53.1 - Weakness [facility] Misc. 08/27/25 D50.9 - Iron deficiency anemia, unspecified, E53.8 - Deficiency of other specified B group vitamins, R53.1 - Weakness Uric Acid 08/27/25 D50.9 - Iron deficiency anemia, unspecified, E53.8 - Deficiency of other specified B group vitamins, R53.1 - Weakness Stool Occult Blood iFOB 08/28/25 D50.9 - Iron deficiency anemia, unspecified ABD Limited w/ Elastography 09/05/25 D50.9 - Iron deficiency anemia, unspecified, E53.8 - Deficiency of other specified B group vitamins, R53.1 - Weakness Plan Details Follow Up: 2 Weeks 08/29/25 1732 D> Date _ Glen Chapman MD Cosigner Signature: Date (if applicable) CC: Dr. Red Perez MD ~ [facility]09-29-2025 Radiology Diagnostic study note [facility] Imaging Services [address] [place] [id number] Fluoroscopy 1 Hr or Less MR#: [id number] Acct: [id number] Name: HEIDI ANDREWS Rep #: [id number] : 1970 F 55 From: Tiff Mcfarland MD PCP: Dr. Red Perez MD Status: REG C ERIKA Study:Fluoroscopy 1 Hr or Less Date of Exam: 08/13/25 Exam# [id number] Ordering Dr: Nikolai Kim MD PROCEDURE: FLUOROSCOPY [...] excursion suggestive of mild paralysis. Reading Location: [place] [address] CC: Dr. Red Perez MD; Dr. Nikolai Kim MD ~ [employer]: Signed [facility]08-01-2025 Radiology Diagnostic study note [facility] Imaging Services [address] [place] [address] Chest PA and Lateral MR#: [id number] Acct: [id number] Name: HEIDI ANDREWS Rep #: [id number] : 1970 F 55 From: Ricardo Nunn MD PCP: Dr. Red Perez MD Status: REG C ERIKA Study:Chest PA and Lateral Date of Exam: 06/15/25 Exam# [id number] Ordering Dr: Nikolai Kim MD PROCEDURE: CHEST [...] evidence of acute cardiopulmonary disease. Reading Location: [place] [address] CC: Dr. Red Perez MD; Dr. Nikolai Kim MD ~ [employer]: Signed [facility]07-21-[address] [facility] [address] [place] [address]. [place] [address] OFFICE VISIT Date of Service: 06/04/25 1109 MR#: [id number] Acct: [id number] Name: HEIDI ANDREWS Rep #: [id number] : 1970 From: Glen Chapman MD Age/Sex: 55/F Location[place] [facility] Status: Signed HPI Subjective Date [...] deficiency. Comes for follow up. Feels better. [facility] Medical History Sleep apnea Wears glasses Thyroid disease Diabetes Anemia Former smoker Diabetes Anxiety Psoriasis Hypothyroid Vitamin D deficiency Hypertriglyceridemia Bipolar disorder, unspecified HTN (hypertension) Surgical History Hx of section Hx of bilateral breast reduction surgery Family History Father Hypertension Diabetes Sister Anxiety MCTD (mixed connective tissue disease) Mother Psoriatic arthritis Social History household members: spouse current occupational status: employed current occupation: [employer] Smoking Status: Former smoker alcohol intake: never [...] valsartan 320 1 tab PO DAILY 11/10/22 07/12/09 History mg-hydrochlorothiazide 12.5 mg tablet (Diovan HCT) [...] iron deficiency Qualified Code(s): D50.9 - Iron deficiencyanemia, unspecified Comment: Got IV Iron replacement. Iron profile is normal today. Hgb is 11.3 today. Plan: To continue Oral Iron 2-3 times a week. (3) Hypomagnesemia: Status: Resolved Plan: To continue Magnesium Oxide 500mg daily as needed. 06/04/25 1239 D> Date _ Glen Chapman MD Cosigner Signature: Date (if applicable) CC: Dr. Red Perez MD ~ [facility]07-21-2025 Evaluation note* Diagnosis Onset Date Resolution Status Admit Date B12 deficiency resolved June 04, 2025 9:55am Hypomagnesemia resolved June 04, 2025 9:55am Iron deficiency anemia inactive 2024 9:55am B12 deficiency resolved August 272024 11:15am General weakness resolved August 27, 2025 11:15am Iron deficiency anemia inactive Oc tober 2024 11:15am Acute hyponatremia inactive Augobe r 2024 12:54pm JESI (acute kidney injury) inactive August 31, 2025 12:54pm Ankle fracture, right inactive Oct peg 2024 12:54pm Elevated lactic acid level inactive August 31, 2025 12:54pm Hematoma of occipital region of scalp inactive August 31 12:54pm Iron deficiency anemia inactive Oc tober 2024 12:54pm Syncope inactive August 31, 2025 12:54pm [facility] Work Phone: 1(155) 362-968507-21-2025 Progress note Author Glen Chapman [facility] Note Date/Time June 04, 2025 12:3 9pm [facility] [place] [address] OFFICE VISIT Date of Service: 06/04/25 1109 MR#: [id number] Acct: [id number] Name: HEIDI ANDREWS Rep #: [id number] : 1970 From: Glen Chapman MD Age/Sex: 55/F Location: [facility] [place] Status: Signed HPI Subjective Date [...] deficiency. Comes for follow up. Feels better. [facility] Medical History Sleep apnea Wears glasses Thyroid [...] Signature: Date (if applicable) CC: Dr. Red Perez MD ~ [facility] Work Phone: 1(949) 470-456306-23-2025 Evaluation note* Diagnosis Onset Date Resolution Status Admit Date B12 deficiency chronic May 07, 2025 7:45am Iron deficiency anemia chronic Ju ne 2024 7:45am Hypomagnesemia resolved May 07, 2025 7:45am B12 deficiency chronic June 04, 2025 9:55am Iron deficiency anemia chronic Ju 2024 9:55am Hypomagnesemia resolved June 04, 2025 9:55am [facility] Work Phone: 1(951) 457-283504-24-2025 Evaluation note* Diagnosis Onset Date Resolution Status Admit Date Iron deficiency anemia acute Ap ril 2024 8:14am Anemia noneactive March 08 8:14am [facility] Work Phone: [phone]) 759-473804-24-2025 Evaluation note* Diagnosis Onset Date Resolution Status Admit Date Iron deficiency anemia chronic Ap ril 2024 8:14am Anemia noneactive March 08 8:14am B12 deficiency acute May 07, 2025 7:45am Hypomagnesemia acute May 07, 2025 7:45am Iron deficiency anemia chronic Ju ne 2024 7:45am [facility] Work Phone: [phone] 451-948404-24-2025 Evaluation note* Diagnosis Onset Date Resolution Status Admit Date Iron deficiency anemia chronic Ap ril 2024 8:14am Anemia noneactive March 08 8:14am B12 deficiency chronic May 07, 2025 7:45am Iron deficiency anemia chronic Ju ne 2024 7:45am Hypomagnesemia resolved May 07, 2025 7:45am B12 deficiency chronic June 04, 2025 9:55am Iron deficiency anemia chronic Ju 2024 9:55am Hypomagnesemia resolved June 04, 2025 9:55am [place] [facility] Work Phone: [phone] 153-482603-25-2024 NotePap Smear Specimen AdequacyMarch 2023 9:00amComment.Satisfactory for evaluation. Endocervical and/or squamous metaplasticcells (endocervical component)are present.[facility] A#[id number] General Health CenterComment on above:Satisfactory for evaluation. Endocervical and/or squamous metaplasticcells (endocervical component)are present.12-01-2022 [facility]WSouth[facility] 12-01-2022 Procedure noteWSouthwest General Health CenterConsult note Author Memo Valdez [facility] Note Date/Time September 01, 2025 4 :56pm [facility] Medical Records Department [address] [place] [address] Consultation - Nephrology 09/01/25 1652 MR#: [id number] Acct: [id number] Name: HEIDI ANDREWS Rep #:[id number] : 1970 55 From: Memo carlton MD PCP: Dr. Red Perez MD Status:ADM I N Location: [place] [address] Assessment & Plan Assessment/Plan (1) JESI (acute kidney injury): PLAN: Cr was normal early this year. last month around 1.4 or so. this admit came in with 3.1 better at 2.4 today. renal US is ok. UA shows some protein. will send urine PCR. BP was low, home BP meds on hold. continue fluids. several constitutional symptoms including weight loss. as per family she was sick beforeGLP1 agonist initiation as well. will send serologies. protein gap is a little high, will send kappa/lamnda assay. maintain fluids for today. HPI Consult Data Date of Consult: 09/01/25 HPI Narrative Reason for Consultation: JESI HPI Narrative: HEIDI ANDREWS, is a 55 F who presents with syncope, hypotension, JESI. several complaints over last 3 months or so. poor appetite weight loss, compounded by initiation of GLP1 agonist. apparently lost about 60 lbs or so. no urinary complaints. cr was normal before now increased. currently on IV fluids. no hematuria. [facility] Medical History (Updated 08/31/25 @ 13:40 by Sweta Simms) BiPAP (biphasic positive airway pressure) dependence Asthma Irregular heart beat Sleep apnea Wears glasses Thyroid disease Diabetes Anemia Former smoker Diabetes Anxiety Psoriasis Hypothyroid Vitamin D deficiency Hypertriglyceridemia Bipolar disorder, unspecified HTN (hypertension) Home Medications ?Medication ?Instructions ?Recorded ?Last Taken ?Type gemfibrozil 600 mg tablet 600 mg PO BID high blood pre ssu 11/10/22 08/31/25 08:00 History lamotrigine 150 mg tablet 150 mg PO BID high blood pre ssure 11/10/22 08/31/25 08:00 History levothyroxine 88 mcg tablet 88 mcg PO DAILY hypo thyro id 11/10/22 08/31/25 06:00 History (Levoxyl) metformin 1,000 mg tablet 1,000 mg PO BID diabetes 08/31/25 08:00 History metoprolol succinate 200 mg 200 mg PO DAILY heart rate /htn 11/10/22 08/31/25 08:00 History tablet,extended release 24 hr (Toprol XL) valsartan 320 1 tab PO DAILY blood pressur e 11/10/22 08/31/25 08:00 History mg-hydrochlorothiazide 12.5 mg tablet (Diovan HCT) oxybutynin chloride 5 mg tablet 5 mg PO BID bladder Unknown History fluoxetine 20 mg capsule (Prozac) 60 mg PO DAILY bipol ar 03/08/25 08/31/25 08:00 History folic acid 1 mg tablet 1 mg PO QDAY supplement #90 tabs 05/07/25 08/31/25 08:00 Rx mecobalamin (vitamin B12) 1,000 1,000 mcg PO QDAY supp lement #90 05/07/25 08/31/25 08:00 Rx mcg chewable tablet tabs magnesium oxide 400 mg PO QDAY supplement #3 0 caps 06/01/25 08/31/25 08:00 Rx risperidone 1 mg tablet 1.5 mg PO QHS rls 06/04/25 1 22:48 History semaglutide 0.25 mg or 0.5 mg (2 0.25 mg subcut QWEEK 08/27/25 Unknown History mg/3 mL) subcutaneous pen injector (Channel IQ) Held on 08/31/25. Instructions: skipped this week 08/31/25 fluticasone furoate 200 1 ea inhalation Q24H asthma 08/31/25 08/30/25 08:00 History mcg-vilanterol 25 mcg/dose inhalation powder ondansetron HCl 4 mg tablet 4 mg PO TID PRN nausea Unknown History potassium chloride 20 mEq 20 meq PO DAILY supplement 1 08/30/25 08:00 History tablet,extended release(part/cryst) Allergy/AdvReac Type Severity Reaction Status Date / Time No Known Allergies Allergy Verified 08/31/25 10:07 Family History Father Hypertension Diabetes Sister Anxiety MCTD (mixed connective tissue disease) Mother Psoriatic arthritis Surgical History Hx of section Hx of bilateral breast reduction surgery Social History household members: spouse current occupational status: employed 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 [employer] Smoking Status: Former smoker alcohol intake: never substance use type: does not use ROS ROS Narrative negative except above Physical Exam Narrative Alert awake oriented x 3 no obvious distress no pallor no icterus no JVD s1s2 no murmurs lungs clear abdomen soft no organomegaly Medical Records Data Medical Nutrition Assessment Dietitian: Malnutrition Criteria Met Start: 08/31/25 14:35 Freq: Status: Active Protocol: Document 08/31/25 14:36 SB (Rec: 08/31/25 14:36 SB [id number]) Nutrition Malnutrition Evidence of Yes Malnutrition Exists Malnutrition (severe Acute Illness/Injury ): Evidenced By Suboptimal Energy Intake (Severe),Weight Loss (Severe) Clinical Problem Acute Disease or Injury Related Malnutrition Etiology severe related to GI dysfunction, inadequate oral intake, and ozempic Signs/Symptoms as evidenced by PO meeting <50% of estimated nutrition needs x 1 month and 16% weight loss x 2 months Status Active Problem Recommendation Dietitian Adjust to consistent carbohydrate diet. Recommendations/ Will order 240mL chocolate glucerna shake with Changes breakfast and dinner. Pt will maintain weight while acutely ill. Lab / Micro Data 08/31/25 09:50 09/01/25 04:45 Labs: Laboratory Results - last 24 hr 08/31/25 17:50: Lactic Acid 4.3 H* 08/31/25 22:40: Lactic Acid 3.0 H* 09/01/25 04:45: Sodium 131 L, Potassium 4.1, Chloride 97 L, Carbon Dioxide 17.2 L, Anion Gap 17 H, BUN 43 H, Creatinine 2.42 H, Estim Creat Clear Calc 31.06 L, Est GFR (MDRD) Non-Af 23 L, BUN/Creatinine Ratio 17.9, Glucose 145 H, Calcium 8.6 09/01/25 06:17: POC Glucose 131 H 09/01/25 11:23: POC Glucose 170 H Imaging Radiology Impression Renal Ultrasound 08/31/25 13:05 IMPRESSION: NORMAL RENAL ULTRASOUND. Reading Location[facility] 09/01/25 1656 <Electronically signed by Memo Valdez MD> Cosigner Signature (if applicable): CC: Dr. Red Perez MD~ Signed [facility] Work Phone: Consult note Author Channing Parker [facility] Note Date/Time September 03, 2025 1 :56pm [facility] Medical Records Department [address] [place] [address] Counseling Note - Pharmacy 09/03/25 1355 MR#: [id number] Acct: [id number] Name: HEIDI ANDREWS Rep #:[id number] : 1970 55 From: Channing Parker PCP: Dr. Red Perez MD Status:ADM I N Y Location[place] [facility] [id number] Pharmacy [facility] Counseling Pharmacy Service has performed discharge medication reconciliation and counseling for this patient. The patient's discharge medication list was reviewed for discrepancies and discrepancies were resolved. The patient was counseled on the following discharge medications and changes in medications for homegoing were reviewed. The Reason for Use, instructions for use, and potential side effects were reviewed for all new medications. The patient's questions regarding all of their medications were answered. 1. Metoprolol succinate 50 mg PO daily 2. Valsartan 80 mg PO daily 3. Metformin 1000 mg ER PO BID The patient was able to verbally demonstrate an understanding of their dischargemedications. Medications at Discharge Home Medications gemfibrozil 600 mg tablet 600 mg PO BID high blood pressu 11/10/22 lamotrigine 150 mg tablet 150 mg PO BID high blood pressure 11/10/22 levothyroxine 88 mcg tablet (Levoxyl) 88 mcg PO DAILY hypo thyroid 11/10/22 oxybutynin chloride 5 mg tablet 5 mg PO BID bladder 03/05/25 fluoxetine 20 mg capsule (Prozac) 60 mg PO DAILY bipolar 03/08/25 folic acid 1 mg tablet 1 mg PO QDAY supplement #90 tabs 05/07/25 mecobalamin (vitamin B12) 1,000 mcg chewable tablet 1,000 mcg PO QDAY supplement#90 tabs 05/07/25 magnesium oxide 400 mg PO QDAY supplement #30 caps 06/01/25 risperidone 1 mg tablet 1.5 mg PO QHS rls 06/04/25 fluticasone furoate 200 mcg-vilanterol 25 mcg/dose inhalation powder 1 ea inhalation Q24H asthma 08/31/25 ondansetron HCl 4 mg tablet 4 mg PO TID PRN nausea 08/31/25 metformin 1,000 mg tablet,extended release 24hr (osmotic) (Fortamet) 1,000 mg POBID 30 days #60 tabs 09/03/25 metoprolol succinate 50 mg tablet,extended release 24 hr (Toprol XL) 50 mg PO DAILY #30 tabs 09/03/25 valsartan 80 mg tablet 80 mg PO DAILY #30 tabs 09/03/25 09/03/25 1356 <Electronically signed by Channing haynes> Date _ Channing Morrowigner Signature (if applicable): Date CC: ~ Signed [facility] Work Phone: Discharge summary Author [place] Gomezehne [facility] Note Date/Time August 31, 2025 4 :35pm [facility] Medical Records Department [address] [place] [address] Emergency Department Summary 08/31/25 MR#: [id number] Acct: [id number] Name: HEIDI ANDREWS Rep #:[id number] : 1970 55 From: [place] Colon PCP: Dr. Red Perez MD Status:ADM I N Location: [place] [address] HPI History of Present Illness Chief Complaint: Hypotension Informant: patient, family and EMS Narrative Narrative: 55-year-old female presented to the emergency room with a chief complaint of syncope. Patient states that 2 months ago she started Ozempic. She states thatshe has had significant nausea and has been unable to keep food down. She states that she has not been able to go to work over the past 2 weeks. About 2 weeks ago her PCP discontinued her clonidine due to lower than normal blood pressure. She has continued her metoprolol and her Diovan. She states that shedid not take her Ozempic last week. She notes that she is currently being evaluated with hematology for anemia and has received iron infusions. She states that recent blood work has resulted in her being referred to nephrology and she is scheduled next week for a liver ultrasound due to abnormal LFTs. Sheis not on any blood thinners. This morning she was sitting in her living room and went to get up and go towards the kitchen. She felt that she was going to pass out and was using the wall to help her when she eventually had a syncopal episode. She notes an injury to the right ankle with swelling and a bump on the occiput of her head. She denies any neck pain. She denies any significant headache. She denies chest pain shortness of breath. She notes that she has had black diarrhea stools but is not uncommon for her since beginning iron supplementation. [facility] Medical History (Updated 08/31/25 @ 13:40 by Sweta Simms) BiPAP (biphasic positive airway pressure) dependence Asthma Irregular heart beat Sleep apnea Wears glasses Thyroid disease Diabetes Anemia Former smoker Diabetes Anxiety Psoriasis Hypothyroid Vitamin D deficiency Hypertriglyceridemia Bipolar disorder, unspecified HTN (hypertension) Home Medications ?Medication ?Instructions ?Recorded ?Last Taken ?Type gemfibrozil 600 mg tablet 600 mg PO BID high blood pre ssu 11/10/22 08/31/25 08:00 History lamotrigine 150 mg tablet 150 mg PO BID high blood pre ssure 11/10/22 08/31/25 08:00 History levothyroxine 88 mcg tablet 88 mcg PO DAILY hypo thyro id 11/10/22 08/31/25 06:00 History (Levoxyl) metformin 1,000 mg tablet 1,000 mg PO BID diabetes 08/31/25 08:00 History metoprolol succinate 200 mg 200 mg PO DAILY heart rate /htn 11/10/22 08/31/25 08:00 History tablet,extended release 24 hr (Toprol XL) valsartan 320 1 tab PO DAILY blood pressur e 11/10/22 08/31/25 08:00 History mg-hydrochlorothiazide 12.5 mg tablet (Diovan HCT) oxybutynin chloride 5 mg tablet 5 mg PO BID bladder Unknown History fluoxetine 20 mg capsule (Prozac) 60 mg PO DAILY bipol ar 03/08/25 08/31/25 08:00 History folic acid 1 mg tablet 1 mg PO QDAY supplement #90 tabs 05/07/25 08/31/25 08:00 Rx mecobalamin (vitamin B12) 1,000 1,000 mcg PO QDAY supp lement #90 05/07/25 08/31/25 08:00 Rx mcg chewable tablet tabs magnesium oxide 400 mg PO QDAY supplement #3 0 caps 06/01/25 08/31/25 08:00 Rx risperidone 1 mg tablet 1.5 mg PO QHS rls 06/04/25 1 22:48 History semaglutide 0.25 mg or 0.5 mg (2 0.25 mg subcut QWEEK 08/27/25 Unknown History mg/3 mL) subcutaneous pen injector (Channel IQ) Held on 08/31/25. Instructions: skipped this week 08/31/25 fluticasone furoate 200 1 ea inhalation Q24H asthma 08/31/25 08/30/25 08:00 History mcg-vilanterol 25 mcg/dose inhalation powder ondansetron HCl 4 mg tablet 4 mg PO TID PRN nausea Unknown History potassium chloride 20 mEq 20 meq PO DAILY supplement 1 08/30/25 08:00 History tablet,extended release(part/cryst) Allergy/AdvReac Type Severity Reaction Status Date / Time No Known Allergies Allergy Verified 08/31/25 10:07 Family History Father Hypertension Diabetes Sister Anxiety MCTD (mixed connective tissue disease) Mother Psoriatic arthritis Surgical History Hx of section Hx of bilateral breast reduction surgery Social History household members: spouse current occupational status: employed current occupation: [employer] Smoking Status: Former smoker alcohol intake: never substance use type: does not use ROS ROS ED Constitutional Constitutional ED: Reports chills; Denies fever(s) or weight loss Eyes Eyes: Denies change in vision or diplopia ENT ENT ED: Denies ear pain, rhinorrhea or sore throat Cardiovascular Cardiovascular: Reports other Details: Syncope ; Denies chest pain, orthopnea, palpitations or racing heartbeat Respiratory/Chest Respiratory/Chest: Reports other; Denies cough, dyspnea or orthopnea Gastrointestinal Gastrointestinal: Reports diarrhea, nausea and vomiting; Denies abdominal pain Genitourinary Genitourinary ED: Denies dysuria, hematuria or urinary frequency Musculoskeletal Musculoskeletal: Reports other Details: Right ankle pain ; Denies arthralgias or myalgias Integumentary Reports other Details: Occipital hematoma ; Denies abscess or rash Neurologic Neurologic: Denies headache(s) or weakness Psychiatric Psychiatric: Denies anxiety, depression, suicidal ideation or suicidal thoughts Endocrine Endocrinology: Denies polydipsia, polyphagia or polyuria Allergic/Immunologic Allergic/Immunologic ED: Denies mouth swelling, tongue swelling or urticaria EXAM Physical Exam Const Vital Signs: 08/31/25 10:00 08/31/25 10:05 08/31/25 11:02 Temperature 97.6 F L Temperature Source Oral Pulse Rate 77 76 Respiratory Rate 18 18 Respiratory Effort Normal Non-Labored Respiratory Pattern Normal Blood Pressure 102/62 104/70 Blood Pressure Mean 75 81 Pulse Ox 100 97 Oxygen Delivery Method Room Air Room Air 08/31/25 12:00 08/31/25 12:04 Temperature 98.1 F 98.1 F Temperature Source Oral Pulse Rate 72 72 Respiratory Rate 16 16 Respiratory Effort Respiratory Pattern Blood Pressure 96/52 L 96/52 L Blood Pressure Mean 66 66 Pulse Ox 99 99 Oxygen Delivery Method Room Air Positive well nourished and well developed General Appearance ED: well developed; Negative for pallor HEENT Reports normocephalic and moist mucous membranes HEENT Narrative: There is a small scalp hematoma in the occiput Eyes PERRL and EOMs intact bilaterally General Eye ED: Negative for pale conjunctiva or scleral icterus Neck no lymphadenopathy, supple and no JVD General: Negative for tenderness Resp normal respiratory effort and clear to auscultation bilaterally Cardio regular rate, regular rhythm and no murmurs GI normal to inspection, nondistended, normoactive bowel sounds and non-tender Palpation: soft Back/Spine no CVA tenderness and normal ROM Extremity Extremity Narrative: There is some mild swelling and ecchymosis anterior lateral of the right ankle. No fibular head tenderness. No fifth metatarsal tenderness. Achilles palpates intact. General Extremety ED: Negative for edema General Extremity: Negative for edema Neuro oriented x3 and CN's II-XII intact bilaterally Sensorium / Orientation: alert Motor Exam: strength 5/5 throughout Psych mental status grossly normal Mood & Affect: Negative for depressed or tearful Skin no rashes or lesions noted and no wounds General Skin Exam: Negative for pallor MDM MDM MDM Narrative Medical decision making narrative: Differential diagnosis includes dehydration cardiac syncope renal abnormalities electrolyte abnormalities anemia intracranial hemorrhage fracture EKG demonstrates a normal sinus rhythm. No events on the monitor. CT of the brain did not demonstrate any acute fracture. My independent interpretation a chest x-ray is no acute process. My independent interpretation of the plain films of the right ankle is an acute fracture of the distal fibula with possibleavulsion fracture of the posterior malleolus. Basic blood work shows a hemoglobin of 10.9 white count 4.9 platelet count of 240 INR 1.3 BMP with a sodium of 129 creatinine now significantly elevated 3.1 with a BUN of 47 lactic acid iselevated 4.4. I believe this is most likely due to the episode of hypotension which is not resolved as well as her metformin and her JESI. No strong evidence of UTI. Patient was placed in a posterior stirrup well-padded [facility]. Neurovascular intact pre and post application. Case was discussed with Dr. Prakash from orthopedics as the patient does not have a localorthopedist. I also spoke with the hospitalist and plan of care is admission. History & Record Review Discussion w/independent historian: EMS personnel, Patient and Family Additional record(s) reviewed:: Prior outpatient record Lab Data Attestation: I reviewed the patient's lab results. Labs: Laboratory Results - last 24 hr 08/31/25 08/31/25 08/31/25 09:50 10:20 11:16 WBC 4.9 RBC 4.11 L Hgb 10.9 L Hct 33.2 L MCV 80.8 L MCH 26.5 L MCHC 32.8 RDW Std Deviation 40.0 RDW Coeff of Sohan 13.8 Plt Count 240 MPV 10.1 Immature Gran % (Auto) 1.200 H Neut % (Auto) 72.5 H Lymph % (Auto) 16.0 L Crook % (Auto) 6.7 Eos % (Auto) 3.0 Baso % (Auto) 0.6 Absolute Neuts (auto) 3.6 Absolute Lymphs (auto) 0.79 L Nucleated RBC % 0 PT 16.0 H INR 1.3 APTT 27.1 Sodium 129 L Potassium 3.8 Chloride 86 L Carbon Dioxide 17.7 L Anion Gap 25 H BUN 47 H Creatinine 3.10 H Estim Creat Clear Calc 25.29 L Est GFR (MDRD) Non-Af 17 L BUN/Creatinine Ratio 15.0 Glucose 199 H Lactic Acid 4.4 H* Calcium 10.5 Total Bilirubin 0.60 Direct Bilirubin 0.33 H AST 17 ALT 9 Alkaline Phosphatase 186 H Troponin T High Sens 14 Troponin T Hi Sens 2 Hr Total Protein 8.6 H Albumin 4.9 Globulin 3.7 Urine Color Yellow Urine Clarity Sl. Cloudy Urine pH 5.0 Ur Specific [place] 1.025 Urine Protein 100 H Urine Glucose (UA) Normal Urine Ketones 5 H Urine Occult Blood 10 H Urine Nitrite Negative Urine Bilirubin 3 H Urine Urobilinogen 1 H Ur Leukocyte Esterase 25 H Urine RBC 0 SEEN Urine WBC 0-5 SEEN Ur Squamous Epith Cells 10-25 SEEN Amorphous Sediment 1+ Urine Bacteria RARE Urine Mucus 0 SEEN 08/31/25 11:48 WBC RBC Hgb Hct MCV MCH MCHC RDW Std Deviation RDW Coeff of Sohan Plt Count MPV Immature Gran % (Auto) Neut % (Auto) Lymph % (Auto) Crook % (Auto) Eos % (Auto) Baso % (Auto) Absolute Neuts (auto) Absolute Lymphs (auto) Nucleated RBC % PT INR APTT Sodium Potassium Chloride Carbon Dioxide Anion Gap BUN Creatinine Estim Creat Clear Calc Est GFR (MDRD) Non-Af BUN/Creatinine Ratio Glucose Lactic Acid Calcium Total Bilirubin Direct Bilirubin AST ALT Alkaline Phosphatase Troponin T High Sens Troponin T Hi Sens 2 Hr 12 Total Protein Albumin Globulin Urine Color Urine Clarity Urine pH Ur Specific [place] Urine Protein Urine Glucose (UA) Urine Ketones Urine Occult Blood Urine Nitrite Urine Bilirubin Urine Urobilinogen Ur Leukocyte Esterase Urine RBC Urine WBC Ur Squamous Epith Cells Amorphous Sediment Urine Bacteria Urine Mucus Radiography Diagnostic Testing: Clinical Impression(s) from Imaging Studies Chest X-Ray 08/31/25 10:12 IMPRESSION: Stable examination. No acute abnormality is seen. Reading Location: [facility] 08/31/25 10:30 IMPRESSION: Cerebral atrophy more pronounced in the anterior frontal lobes bilaterally as well as in the Reading Location: [facility] Ankle X-Ray 08/31/25 10:35 IMPRESSION: Nondisplaced oblique fracture of the lateral malleolus as well as avulsion fracture of the posterior malleolus. Mild asymmetry of the ankle mortise as well as soft tissue swelling. Reading Location: [facility] EKG Initial EKG: Attestation: I personally reviewed and interpreted this EKG as follows: Comments: Normal sinus rhythm ventricular rate of 72 bpm. Management Discussion w/another healthcare provider: Hospitalist, Cutting Torch Operator (Dr. Prakash (orthopedics)) and Radiologist Discharge Plan Dx/Rx/DC Orders Clinical Impression: Iron deficiency anemia, Syncope, Ankle fracture, right, Hematoma of occipital region of scalp, JESI (acute kidney injury), Acute hyponatremia, Elevated lactic acid level Disposition Disposition: Acute Care Hospital [facility] Discharge Date/Time: 08/31/25 13:17 What to do if you have Problems For any increased pain, shortness of breath, bleeding, nausea or vomiting, chestpain, or any unexpected problems, contact your Primary Care Provider. Call [facility] ([phone]) or report to the closest Emergency Room. Call 911 if necessary. 08/31/25 1635 <Electronically signed by [place] Wilson DO> Cosigner Signature (if applicable): CC: Dr. Red Perez MD ~ Signed [facility] Work Phone: Discharge summary Author Frantz Gunderson [facility] Note Date/Time September 02, 2025 1 2:24pm [facility] Medical Records Department [address] [place] [address] Instructions for Home/Discharge Instructions 09/02/25 1217 MR#: [id number] Acct: [id number] Name: HEIDI ANDREWS Rep #:[id number] : 1970 55 From: Frantz Gunderson DO PCP: Dr. Red Perez MD Status:ADM I N Discharge Instructions DC O2, CPAP, BIPAP needs Home O2 Discharge instructions: No Dressing / Incision Discharge Activity: Return to Normal Activity Weight Bearing Status: Full weight bearing Follow Up Care Test Results: Test results from this visit will be discussed in further detail at your follow- up appointment, if applicable. Discharge Plan Admission Admit Date/Time: 08/31/25 12:54 Primary Reason for Your Visit: Acute kidney injury, hyponatremia, starvation ketoacidosis Attending Provider: Frantz Gunderson Primary Care Provider: Red Perez Consulting Providers: Memo Valdez Instructions Additional Instructions / Restrictions: You are being discharged on no medications for diabetes, please monitor your blood sugars, if they are consistently above 180 please call your PCP for advice Discharge Orders/Prescriptions Prescriptions: Continued levothyroxine [Levoxyl] 88 mcg tablet 88 mcg PO DAILY gemfibrozil 600 mg tablet 600 mg PO BID lamotrigine 150 mg tablet 150 mg PO BID fluoxetine [Prozac] 20 mg capsule 60 mg PO DAILY oxybutynin chloride 5 mg tablet 5 mg PO BID folic acid 1 mg tablet 1 mg PO QDAY Qty: 90 0RF mecobalamin (vitamin B12) 1,000 mcg tablet,chewable 1,000 mcg PO QDAY Qty: 90 0RF risperidone 1 mg tablet 1.5 mg PO QHS ondansetron HCl 4 mg tablet 4 mg PO TID PRN (Reason: nausea) fluticasone furoate-vilanterol 200-25 mcg/dose blister with device 1 ea INHALATION Q24H magnesium oxide 400 mg magnesium capsule 400 mg PO QDAY Qty: 30 2RF Discontinued metformin 1,000 mg tablet 1,000 mg PO BID valsartan-hydrochlorothiazide [Diovan HCT] 320-12.5 mg tablet 1 tab PO DAILY metoprolol succinate [Toprol XL] 200 mg tablet extended release 24 hr 200 mg PO DAILY Ozempic 0.25 mg or 0.5 mg (2 mg/3 mL) pen injector 0.25 mg subcut QWEEK potassium chloride 20 mEq tablet,ER particles/crystals 20 meq PO DAILY Referrals / Follow Up: Memo Valdez MD [Med Staff - Consulting, Nephrology] - See Referral Note Referral Note: Call the office on 09/03/2025 for a follow-up appointment within 1 to 2 weeks, tell them that you were hospitalized and saw Dr. Valdez in the hospital Red Perez MD [Primary Care Provider, Family Practice] - See Referral Note Referral Note: In 2 weeks Disposition Disposition (needs filled in before D/C Order can be placed): Home, Self Care 09/02/25 1224<Electronically signed by Frantz Gunderson DO>Frantz Gunderson DO CC: Dr. Memo Valdez MD; Dr. Red Perez MD ~ Signed [facility] Work Phone: Discharge summary Author [facility] Note Date/Time September 03, 2025 1 :02pm [facility] Medical Records Department [address] [place] [address] Instructions for Home/Discharge Instructions 09/03/25 1228 MR#: [id number] Acct: [id number] Name: HEIDI ANDREWS Rep #:[id number] : 1970 55 From: Jacques hernandez DO PCP: Dr. Red Perez MD Status:ADM I N Discharge Instructions DC O2, CPAP, BIPAP needs Home O2 Discharge instructions: No Dressing / Incision Weight Bearing Status: No weight bearing (right leg) Follow Up Care Test Results: Test results from this visit will be discussed in further detail at your follow- up appointment, if applicable. Discharge Plan Admission Admit Date/Time: 08/31/25 12:54 Primary Reason for Your Visit: Acute kidney injury, hyponatremia, starvation ketoacidosis Attending Provider: Jacques Muñzo Primary Care Provider: Red Perez Consulting Providers: Memo Valdez; Frantz Gunderson Instructions Additional Instructions / Restrictions: Please take the following medications as noted below. Note the following changes: ? For high blood pressure, take Toprol 50 mg daily and valsartan 80 mg daily. ? For diabetes, take metformin 1000 mg twice daily. Please have a repeat BMP drawn in 3 to 5 days to monitor your kidney function. Follow-up with your PCP in the next 1 to 2 weeks. Discharge Orders/Prescriptions Prescriptions: New metoprolol succinate [Toprol XL] 50 mg tablet extended release 24 hr 50 mg PO DAILY Qty: 30 2RF valsartan 80 mg tablet 80 mg PO DAILY Qty: 30 2RF metformin [Fortamet] 1,000 mg tablet extended release 24hr 1,000 mg PO BID 30 Days Qty: 60 2RF Continued levothyroxine [Levoxyl] 88 mcg tablet 88 mcg PO DAILY gemfibrozil 600 mg tablet 600 mg PO BID lamotrigine 150 mg tablet 150 mg PO BID fluoxetine [Prozac] 20 mg capsule 60 mg PO DAILY oxybutynin chloride 5 mg tablet 5 mg PO BID folic acid 1 mg tablet 1 mg PO QDAY Qty: 90 0RF mecobalamin (vitamin B12) 1,000 mcg tablet,chewable 1,000 mcg PO QDAY Qty: 90 0RF risperidone 1 mg tablet 1.5 mg PO QHS ondansetron HCl 4 mg tablet 4 mg PO TID PRN (Reason: nausea) fluticasone furoate-vilanterol 200-25 mcg/dose blister with device 1 ea INHALATION Q24H magnesium oxide 400 mg magnesium capsule 400 mg PO QDAY Qty: 30 2RF Discontinued metformin 1,000 mg tablet 1,000 mg PO BID valsartan-hydrochlorothiazide [Diovan HCT] 320-12.5 mg tablet 1 tab PO DAILY metoprolol succinate [Toprol XL] 200 mg tablet extended release 24 hr 200 mg PO DAILY Ozempic 0.25 mg or 0.5 mg (2 mg/3 mL) pen injector 0.25 mg subcut QWEEK potassium chloride 20 mEq tablet,ER particles/crystals 20 meq PO DAILY Other Ambulatory Orders: Basic Metabolic Profile (BMP) (Routine) Timeframe: 3 Days Facility: [facility] - Location: Laboratory Ordered By: Dr. Jacques Muñoz Referrals / Follow Up: Memo Valdez MD [Med Staff - Consulting, Nephrology] - See Referral Note Referral Note: Call the office on 09/03/2025 for a follow-up appointment within 1 to 2 weeks, tell them that you were hospitalized and saw Dr. Valdez in the hospital Red Perez MD [Primary Care Provider, Family Practice] - See Referral Note Referral Note: In 2 weeks Disposition Disposition (needs filled in before D/C Order can be placed): Home, Self Care 09/03/25 1302<Electronically signed by Jacques Muñoz DO>Jacques Muñoz DO CC: Dr. Memo Valdez MD; Dr. Frantz Gunderson DO; Dr. Red Perez MD ~ Signed [facility] Work Phone: Discharge summary Author Jacques Muñoz [facility] Note Date/Time September 03, 2025 3 :34pm [facility] Medical Records Department [address] [facility] [place] [address] Discharge Summary 09/03/25 1229 MR#: [id number] Acct: [id number] Name: HEIDI ANDREWS Rep #:[id number] : 1970 55 From: Jacques hernandez DO PCP: Dr. Red Perez MD Status:DIS I N Location: [place] [address] Providers Date of Admission: 08/31/25 Date of Discharge: 09/03/25 Primary Care Physician: Dr. Red Perez MD Consultations 08/31/25 15:06 Consult: Nephrology Routine Consulting Provider: Memo Valdez Reason for Consult: Acute kidney injury EMERGENT Consult: No MD Notified: Yes Date Notified: 08/31/25 Time Notified: 15:07 Method of Notification: Verbal Reason For Visit: ACUTE KIDNEY INJURY Diagnosis Discharge Diagnosis (1) JESI (acute kidney injury): Status: Inactive Code(s): N17.9 - Acute kidney failure, unspecified Medications at Discharge Home Medications gemfibrozil 600 mg tablet 600 mg PO BID high blood pressu 11/10/22 lamotrigine 150 mg tablet 150 mg PO BID high blood pressure 11/10/22 levothyroxine 88 mcg tablet (Levoxyl) 88 mcg PO DAILY hypo thyroid 11/10/22 oxybutynin chloride 5 mg tablet 5 mg PO BID bladder 03/05/25 fluoxetine 20 mg capsule (Prozac) 60 mg PO DAILY bipolar 03/08/25 folic acid 1 mg tablet 1 mg PO QDAY supplement #90 tabs 05/07/25 mecobalamin (vitamin B12) 1,000 mcg chewable tablet 1,000 mcg PO QDAY supplement#90 tabs 05/07/25 magnesium oxide 400 mg PO QDAY supplement #30 caps 06/01/25 risperidone 1 mg tablet 1.5 mg PO QHS rls 06/04/25 fluticasone furoate 200 mcg-vilanterol 25 mcg/dose inhalation powder 1 ea inhalation Q24H asthma 08/31/25 ondansetron HCl 4 mg tablet 4 mg PO TID PRN nausea 08/31/25 metformin 1,000 mg tablet,extended release 24hr (osmotic) (Fortamet) 1,000 mg POBID 30 days #60 tabs 09/03/25 metoprolol succinate 50 mg tablet,extended release 24 hr (Toprol XL) 50 mg PO DAILY #30 tabs 09/03/25 valsartan 80 mg tablet 80 mg PO DAILY 30 days #30 tabs 09/03/25 Hospital Course Operations None Procedures EKG and - (Chest x-ray, CT brain, ankle x-ray, renal ultrasound) Summary of Care Provided Minutes Spent on Discharge: 39 Hospital Course: Patient is a 55-year-old female who presented to [facility] ED on 08/31/2025 with syncope and right ankle pain. Hospital course as noted below. Patient discharged home in stable condition on 09/03. 1. JESI, resolved ? Nephrology followed. Creatinine 3.10 on admit, baseline around 1.0. Renal ultrasound normal. UA with some protein, otherwise benign. Improved back to baseline by day of discharge with IV fluid resuscitation so most consistent withprerenal etiology secondary to poor appetite, weight loss and hypotension as below. Further medication management as below. 2. Syncope secondary to orthostatic hypotension, resolved; history of essentialhypertension ? Orthostatic hypotension noted on admission and patient quite dry appearing with JESI as above. Suspected due to decreased p.o. intake from Ozempic leading to lower blood pressures at baseline in setting of home blood pressure medication. BP meds were held for the majority of the hospitalization. Normotensive to slightly hypertensive on day of discharge and JESI resolved as above. Discharged on Toprol 50 mg daily and valsartan 80 mg daily. Recommendedpatient follow-up with PCP for uptitration of medications as needed. 3. Lactic acidosis secondary to starvation ketosis, resolved ? Lactic acid 4.4 on admit, improved with IV fluid resuscitation. Initial bicarb 17 with anion gap of 25 on admit, anion gap resolved with IV fluid resuscitation as well. 4. Right ankle fracture ? PT/OT/case management followed. X-ray on admit showed nondisplaced oblique fracture of the lateral malleolus as well as avulsion fracture of the posterior malleolus with soft tissue swelling. Case was discussed with orthopedics who recommended splinting and the patient remain nonweightbearing until she follows up with orthopedic surgery in the office. Patient did well with PT and OT stable for home on discharge with outpatient physical therapy. She was providedwith the appropriate equipment at home that will allow her to remain nonweightbearing until she follows up with orthopedics in the office. 5. Hyponatremia, resolved ? Sodium 129 on admit, resolved with IV fluid resuscitation. 6. Severe protein calorie malnutrition ? Nutrition followed. Criteria for medication on admit as evidenced by p.o. eating less 50% of this to be nutrition needs x 1 month and 60% weight loss x 2 months. This is presumed secondary to GI dysfunction and inadequate oral intakedue to Ozempic. Given protein supplements during hospitalization and recommended that these are continued on discharge. 7. Type 2 diabetes mellitus ? Patient was recently started on Ozempic about 8 weeks ago. Since then she hashad significantly decreased p.o. intake and GI dysfunction leading to her issuesas above. Ozempic will be discontinued on discharge. Treated with sliding scale insulin while inpatient with good glucose control. Okay to resume home metformin on discharge. Chronic medical conditions: ? Hypothyroidism: Continue home Synthroid. ? Mood disorder: Continue home risperidone, lamotrigine and fluoxetine. ? Overactive bladder: Continue home oxybutynin. ? Asthma: Stable on room air, not in acute exacerbation on admission. Continue home inhalers. Total clinical time spent by myself addressing the patient's medical issues, reviewing all the data, and collaborating with patient's care team: 39 minutes. Physical Exam Narrative alert, oriented x3, no apparent distress and healthy appearing General Appearance: cooperative, well kempt and well developed Orientation / Consciousness: awake, oriented to person, oriented to place and oriented to time HEENT normocephalic, head/scalp atraumatic, hearing grossly normal bilaterally and moist oral mucous membranes Eyes PERRL, EOMs intact bilaterally and conjunctivae normal Neck supple, no JVD, thyroid normal and no carotid bruits General: trachea midline Resp normal respiratory effort, no retractions, no use of accessory muscles and clearto auscultation bilaterally Auscultation: Negative for rales, rhonchi or wheezes Cardio regular rate, regular rhythm, S1 normal heart sound, S2 normal heart sound, no murmurs, no rub and no gallops GI normal to inspection, nondistended, normoactive bowel sounds, soft to palpation,non-tender and non-distended Extremity Extremity Narrative: Right lower extremity is encased in a splint Skin no rashes or lesions noted General Skin Exam: no breakdown Neuro oriented x3, CN's II-XII intact bilaterally, no focal motor deficits and no sensory deficits noted Sensorium / Orientation: awake and alert Speech: speech normal Psych affect normal Medical Records Data Medical Nutrition Assessment Dietitian: Malnutrition Criteria Met Start: 08/31/25 14:35 Freq: Status: Active Protocol: Document 08/31/25 14:36 SB (Rec: 08/31/25 14:36 SB [id number]) Nutrition Malnutrition Evidence of Yes Malnutrition Exists Malnutrition (severe Acute Illness/Injury ): Evidenced By Suboptimal Energy Intake (Severe),Weight Loss (Severe) Clinical Problem Acute Disease or Injury Related Malnutrition Etiology severe related to GI dysfunction, inadequate oral intake, and ozempic Signs/Symptoms as evidenced by PO meeting <50% of estimated nutrition needs x 1 month and 16% weight loss x 2 months Status Active Problem Recommendation Dietitian Adjust to consistent carbohydrate diet. Recommendations/ Will order 240mL chocolate glucerna shake with Changes breakfast and dinner. Pt will maintain weight while acutely ill. Weight / BMI Weight Weight: 94 kg Body Mass Index (BMI) 33.4 ABG / Lab / Microbiology Data 08/31/25 09:50 09/03/25 05:40 Laboratory: Laboratory Results - last 24 hr 09/02/25 16:22: POC Glucose 145 H 09/02/25 22:16: POC Glucose 152 H 09/03/25 05:40: Sodium 137, Potassium 3.3, Chloride 105, Carbon Dioxide 19.3 L, Anion Gap 12, BUN 8, Creatinine 1.04, Estim Creat Clear Calc 72.27, Est GFR (MDRD) Non-Af 64, BUN/Creatinine Ratio 8.2 L, Glucose 116 H, Calcium 8.7 09/03/25 06:18: POC Glucose 110 H 09/03/25 10:43: POC Glucose 140 H D/C Instructions Weight Bearing Status: Full weight bearing DC O2, CPAP, BIPAP Needs Home O2 Discharge instructions: No Meaningful Use Info Meaningful Use Meaningful Use Diagnoses (Choose all that apply): None applicable Discharge Plan Admission Admit Date/Time: 08/31/25 12:54 Primary Reason for Your Visit: Acute kidney injury, hyponatremia, starvation ketoacidosis Attending Provider: Jacques Muñoz Primary Care Provider: Red Perez Consulting Providers: Memo Valdez; Frantz Gunderson Instructions Additional Instructions / Restrictions: Please take the following medications as noted below. Note the following changes: ? For high blood pressure, take Toprol 50 mg daily and valsartan 80 mg daily. ? For diabetes, take metformin 1000 mg twice daily. Please have a repeat BMP drawn in 3 to 5 days to monitor your kidney function. Follow-up with your PCP in the next 1 to 2 weeks. Discharge Orders/Prescriptions Prescriptions: New metoprolol succinate [Toprol XL] 50 mg tablet extended release 24 hr 50 mg PO DAILY Qty: 30 2RF metformin [Fortamet] 1,000 mg tablet extended release 24hr 1,000 mg PO BID 30 Days Qty: 60 2RF valsartan 80 mg tablet 80 mg PO DAILY 30 Days Qty: 30 0RF Continued levothyroxine [Levoxyl] 88 mcg tablet 88 mcg PO DAILY gemfibrozil 600 mg tablet 600 mg PO BID lamotrigine 150 mg tablet 150 mg PO BID fluoxetine [Prozac] 20 mg capsule 60 mg PO DAILY oxybutynin chloride 5 mg tablet 5 mg PO BID folic acid 1 mg tablet 1 mg PO QDAY Qty: 90 0RF mecobalamin (vitamin B12) 1,000 mcg tablet,chewable 1,000 mcg PO QDAY Qty: 90 0RF risperidone 1 mg tablet 1.5 mg PO QHS ondansetron HCl 4 mg tablet 4 mg PO TID PRN (Reason: nausea) fluticasone furoate-vilanterol 200-25 mcg/dose blister with device 1 ea INHALATION Q24H magnesium oxide 400 mg magnesium capsule 400 mg PO QDAY Qty: 30 2RF Discontinued metformin 1,000 mg tablet 1,000 mg PO BID valsartan-hydrochlorothiazide [Diovan HCT] 320-12.5 mg tablet 1 tab PO DAILY metoprolol succinate [Toprol XL] 200 mg tablet extended release 24 hr 200 mg PO DAILY Ozempic 0.25 mg or 0.5 mg (2 mg/3 mL) pen injector 0.25 mg subcut QWEEK potassium chloride 20 mEq tablet,ER particles/crystals 20 meq PO DAILY Other Ambulatory Orders: Basic Metabolic Profile (BMP) (Routine) Timeframe: 3 Days Facility: [facility] - Location: Laboratory Ordered By: Dr. Jacques Muñoz Referrals / Follow Up: Memo Valdez MD [Med Staff - Consulting, Nephrology] - See Referral Note Referral Note: Call the office on 09/03/2025 for a follow-up appointment within 1 to 2 weeks, tell them that you were hospitalized and saw Dr. Valdez in the hospital Red Perez MD [Primary Care Provider, Family Practice] - See Referral Note Referral Note: In 2 weeks Disposition Disposition (needs filled in before D/C Order can be placed): Home, Self Care Charges/Coding Visit Charges Inpatient E&M: 76534 Disch Hosp >30min 09/06/25 1040 <Electronically signed by Jacques Muñoz DO> Cosigner Signature (if applicable): CC: Dr. Jacques Muñoz DO; Dr. Red Perez MD~ Signed [facility] Work Phone: Evaluation noteNo assessment information available [facility] Work Phone: Evaluation note* Diagnosis Onset Date Resolution Status Encounter for screening for malignant neoplasm of colo n acute [facility] Work Phone: History and physical note Author Dr. Marie [facility] December 01, 2022 10:07am Note Date/Time December 01, 2022 1 0:07am [facility] Medical Records Department [address] [place] [address] History & Physical Exam 12/01/22 1005 MR#: [id number] Acct: [id number] Name: HEIDI ANDREWS Rep #:[id number] : 1970 52 From: Lamine gracia MD PCP: Dr. Red Perez MD Status:REG S DC Location: [facility] HPI - General HPI Narrative HEIDI DARRYL, is a 52 F who presents for screening colonoscopy. Patient reports no blood in the stool or abdominal pain. She has never had a colonoscopy in the past. No family history of colon cancer. [facility] Medical History Anemia Anxiety Bipolar disorder, unspecified [...] 09:05) Discharge Is Pt Admitted From a Snf, or a Retirement: No Who Could Help: After D/C, Where [...] proceed with procedure. Lamine Marie MD Pager: [facility] [address] [place] [address] [address] [place] [address] Office: Surgery Risks - Colonoscopy Risks Include but are not Limited To: Risks include but are not limited to: Bleeding, perforation requiring further surgery, inability to complete colonoscopy requiring barium enema. 12/01/22 1007 <Electronically signed by Lamine Marie MD> Cosigner Signature (if applicable): CC: Dr. Lamine Marie MD; Dr. Red Perez MD~ Signed [facility] Work Phone: History and physical note Author Frantz Gunderson [facility] Note Date/Time September 01, 2025 1 2:18pm [facility] Medical Records Department [address] [facility] [place] [address] H&P Exam - Hospitalist 08/31/25 1849 MR#: [id number] Acct: [id number] Name: HEIDI ANDREWS Rep #:[id number] : 1970 55 From: Frantz Gunderson DO PCP: Dr. Red Perez MD Status:ADM I N Location: [place] [id number] HPI - General General Date of Admission: 08/31/25 Date of Service: 08/31/25 Chief Complaint: Syncope, right ankle injury HPI Narrative HEIDI ANDREWS, is a 55 F who presents to the emergency room at [facility] after sustaining a syncopal episode at home after standing up. According to the emergency room physician, patient's blood pressure by squad was in the 60s systolic, she suffered an injury to her right ankle from the fall. Workup in the emergency room included labs which showed an elevated lactic acid level of 4.4, chemistry profile was abnormal for a glucose of 199, creatinine of3.10, a BUN of 47, a sodium of 129, chloride of 86, and a bicarb of 17.7. Patient's anion gap was elevated at 25. Patient CBC was abnormal for hemoglobinof 10.9. Urinalysis showed no red blood cells, there was 0-5 white cells and rare bacteria. X-rays of the patient's right ankle revealed a lateral malleolusfracture, a splint was applied by the emergency room physician. Patient was given IV fluids in the emergency room with some improvement of her blood pressure-systolic readings were in the 90s. Patient will be admitted for acute kidney injury, hyponatremia, she will be given IV fluids, ultrasound kidneys will be obtained and she will be seen by nephrology. Labs will be closely monitored. Patient's blood pressure medication was stopped. Patient's anion gap is probably from starvation ketoacidosis, patient's elevatedlactic acid level could be a result of her use of metformin with a backdrop of starvation. [facility] Medical History (Updated 08/31/25 @ 13:40 by Sweta Simms) BiPAP (biphasic positive airway pressure) dependence Asthma Irregular heart beat Sleep apnea Wears glasses Thyroid disease Diabetes Anemia Former smoker Diabetes Anxiety Psoriasis Hypothyroid Vitamin D deficiency Hypertriglyceridemia Bipolar disorder, unspecified HTN (hypertension) Home Medications ?Medication ?Instructions ?Recorded ?Last Taken ?Type gemfibrozil 600 mg tablet 600 mg PO BID high blood pre ssu 11/10/22 08/31/25 08:00 History lamotrigine 150 mg tablet 150 mg PO BID high blood pre ssure 11/10/22 08/31/25 08:00 History levothyroxine 88 mcg tablet 88 mcg PO DAILY hypo thyro id 11/10/22 08/31/25 06:00 History (Levoxyl) metformin 1,000 mg tablet 1,000 mg PO BID diabetes 08/31/25 08:00 History metoprolol succinate 200 mg 200 mg PO DAILY heart rate /htn 11/10/22 08/31/25 08:00 History tablet,extended release 24 hr (Toprol XL) valsartan 320 1 tab PO DAILY blood pressur e 11/10/22 08/31/25 08:00 History mg-hydrochlorothiazide 12.5 mg tablet (Diovan HCT) oxybutynin chloride 5 mg tablet 5 mg PO BID bladder Unknown History fluoxetine 20 mg capsule (Prozac) 60 mg PO DAILY bipol ar 03/08/25 08/31/25 08:00 History folic acid 1 mg tablet 1 mg PO QDAY supplement #90 tabs 05/07/25 08/31/25 08:00 Rx mecobalamin (vitamin B12) 1,000 1,000 mcg PO QDAY supp lement #90 05/07/25 08/31/25 08:00 Rx mcg chewable tablet tabs magnesium oxide 400 mg PO QDAY supplement #3 0 caps 06/01/25 08/31/25 08:00 Rx risperidone 1 mg tablet 1.5 mg PO QHS rls 06/04/25 1 22:48 History semaglutide 0.25 mg or 0.5 mg (2 0.25 mg subcut QWEEK 08/27/25 Unknown History mg/3 mL) subcutaneous pen injector ([employer]) Held on 08/31/25. Instructions: skipped this week 08/31/25 fluticasone furoate 200 1 ea inhalation Q24H asthma 08/31/25 08/30/25 08:00 History mcg-vilanterol 25 mcg/dose inhalation powder ondansetron HCl 4 mg tablet 4 mg PO TID PRN nausea Unknown History potassium chloride 20 mEq 20 meq PO DAILY supplement 1 08/30/25 08:00 History tablet,extended release(part/cryst) Allergy/AdvReac Type Severity Reaction Status Date / Time No Known Allergies Allergy Verified 08/31/25 10:07 Family History Father Hypertension Diabetes Sister Anxiety MCTD (mixed connective tissue disease) Mother Psoriatic arthritis Surgical History Hx of section Hx of bilateral breast reduction surgery Social History household members: spouse current occupational status: employed current occupation: [employer] Smoking Status: Former smoker alcohol intake: never substance use type: does not use ROS Constitutional Constitutional: Reports weakness; Denies anorexia, change in weight, fever(s) ornight sweats Eyes Eyes: Denies blurry vision, change in vision, discharge from eye(s) or eye pain ENT HEENT: Denies abnormal hearing, dysphagia or hearing loss Cardiovascular Cardiovascular: Reports lightheadedness; Denies chest pain, claudication, edema or palpitations Respiratory/Chest Respiratory/Chest: Denies cough, hemoptysis, shortness of breath at rest or shortness of breath with exertion Gastrointestinal Gastrointestinal: Denies abdominal pain, constipation, diarrhea, hematemesis, hematochezia, melena, nausea or vomiting Genitourinary Genitourinary: Denies dysuria, hematuria, urinary frequency, urinary hesitancy, urinary incontinence or urinary urgency Musculoskeletal Musculoskeletal: Reports joint pain; Denies back pain, joint stiffness, joint swelling, myalgias or neck pain Neurologic Neurologic: Reports syncope; Denies abnormal gait, abnormal speech, dizziness, focal weakness, headache(s), loss of vision, numbness, other visual disturbances, paresthesias or tingling Psychiatric Psychiatric: Denies anxiety, cognitive impairment, depression, irritability, mood swings or suicidal ideation Endocrine Endocrinology: Denies change in body appearance, cold intolerance, excessive sweating, heat intolerance, polydipsia or polyuria Hematologic/Lymphatic Hematologic/Lymphatic: Denies none, anemia, easy bleeding, easy bruising or lymphadenopathy Allergic/Immunologic Allergic/Immunologic: Denies rhinitis, urticaria, eczemia or asthma Vital Signs Vital Signs Vital Signs: 08/31/25 10:00 08/31/25 10:05 08/31/25 11:02 Temperature 97.6 F L Temperature Source Oral Pulse Rate 77 76 Respiratory Rate 18 18 Respiratory Effort Normal Non-Labored Respiratory Pattern Normal Blood Pressure 102/62 104/70 Blood Pressure Mean 75 81 Blood Pressure Source Blood Pressure Position Blood Pressure Location Pulse Ox 100 97 Oxygen Delivery Method Room Air Room Air 08/31/25 12:00 08/31/25 12:04 08/31/25 16:00 Temperature 98.1 F 98.1 F 97.3 F L Temperature Source Oral Oral Pulse Rate 72 72 75 Respiratory Rate 16 16 15 Respiratory Effort Respiratory Pattern Blood Pressure 96/52 L 96/52 L 99/59 L Blood Pressure Mean 66 66 72 Blood Pressure Source Monitor Blood Pressure Position Semi-Fowlers Blood Pressure Location Right Forearm Pulse Ox 99 99 100 Oxygen Delivery Method Room Air Room Air Weight Weight: 94 kg Body Mass Index (BMI) 33.4 Physical Exam Const alert, oriented x3, no apparent distress and healthy appearing General Appearance: cooperative, well kempt and well developed Orientation / Consciousness: awake, oriented to person, oriented to place and oriented to time HEENT normocephalic, head/scalp atraumatic, hearing grossly normal bilaterally and moist oral mucous membranes Eyes PERRL, EOMs intact bilaterally and conjunctivae normal Neck supple, no JVD, thyroid normal and no carotid bruits General: trachea midline Resp normal respiratory effort, no retractions, no use of accessory muscles and clearto auscultation bilaterally Auscultation: Negative for rales, rhonchi or wheezes Cardio regular rate, regular rhythm, S1 normal heart sound, S2 normal heart sound, no murmurs, no rub and no gallops GI normal to inspection, nondistended, normoactive bowel sounds, soft to palpation,non-tender and non-distended Extremity Extremity Narrative: Right lower extremity is encased in a splint Skin no rashes or lesions noted General Skin Exam: no breakdown Neuro oriented x3, CN's II-XII intact bilaterally, no focal motor deficits and no sensory deficits noted Sensorium / Orientation: awake and alert Speech: speech normal Psych affect normal Results Medical Records Data Medical Nutrition Assessment Dietitian: Malnutrition Criteria Met Start: 08/31/25 14:35 Freq: Status: Active Protocol: Document 08/31/25 14:36 SB (Rec: 08/31/25 14:36 SB [id number]) Nutrition Malnutrition Evidence of Yes Malnutrition Exists Malnutrition (severe Acute Illness/Injury ): Evidenced By Suboptimal Energy Intake (Severe),Weight Loss (Severe) Clinical Problem Acute Disease or Injury Related Malnutrition Etiology severe related to GI dysfunction, inadequate oral intake, and ozempic Signs/Symptoms as evidenced by PO meeting <50% of estimated nutrition needs x 1 month and 16% weight loss x 2 months Status Active Problem Recommendation Dietitian Adjust to consistent carbohydrate diet. Recommendations/ Will order 240mL chocolate glucerna shake with Changes breakfast and dinner. Pt will maintain weight while acutely ill. Lab / Micro Data 08/31/25 09:50 09/01/25 04:45 Labs: Laboratory Results - last 24 hr 08/31/25 09:50: WBC 4.9, RBC 4.11 L, Hgb 10.9 L, Hct 33.2 L, MCV 80.8 L, MCH 26.5 L, MCHC 32.8, RDW Std Deviation 40.0, RDW Coeff of Sohan 13.8, Plt Count 240,MPV 10.1, Immature Gran % (Auto) 1.200 H, Neut % (Auto) 72.5 H, Lymph % (Auto) 16.0 L, Crook % (Auto) 6.7, Eos % (Auto) 3.0, Baso % (Auto) 0.6, Absolute Neuts (auto) 3.6, Absolute Lymphs (auto) 0.79 L, Nucleated RBC % 0, PT 16.0 H, INR 1.3, APTT 27.1, Sodium 129 L, Potassium 3.8, Chloride 86 L, Carbon Dioxide 17.7 L, Anion Gap 25 H, BUN 47 H, Creatinine 3.10 H, Estim Creat Clear Calc 25.29 L, Est GFR (MDRD) Non-Af 17 L, BUN/Creatinine Ratio 15.0, Glucose 199 H, Calcium 10.5, Total Bilirubin 0.60, Direct Bilirubin 0.33 H, AST 17, ALT 9, Alkaline Phosphatase 186 H, Troponin T High Sens 14, Total Protein 8.6 H, Albumin 4.9, Globulin 3.7 08/31/25 10:20: Lactic Acid 4.4 H* 08/31/25 11:16: Urine Color Yellow, Urine Clarity Sl. Cloudy, Urine pH 5.0, Ur Specific [place] 1.025, Urine Protein 100 H, Urine Glucose (UA) Normal, Urine Ketones 5 H, Urine Occult Blood 10 H, Urine Nitrite Negative, Urine Bilirubin 3 H, Urine Urobilinogen 1 H, Ur Leukocyte Esterase 25 H, Urine RBC 0 SEEN, Urine WBC 0-5 SEEN, Ur Squamous Epith Cells 10-25 SEEN, Amorphous Sediment 1+, Urine Bacteria RARE, Urine Mucus 0 SEEN 08/31/25 11:48: Troponin T Hi Sens 2 Hr 12 08/31/25 15:53: POC Glucose 143 H Imaging Radiology Impression Chest X-Ray 08/31/25 10:12 IMPRESSION: Stable examination. No acute abnormality is seen. Reading Location: [facility] 08/31/25 10:30 IMPRESSION: Cerebral atrophy more pronounced in the anterior frontal lobes bilaterally as well as in the Reading Location: [facility] Ankle X-Ray 08/31/25 10:35 IMPRESSION: Nondisplaced oblique fracture of the lateral malleolus as well as avulsion fracture of the posterior malleolus. Mild asymmetry of the ankle mortise as well as soft tissue swelling. Reading Location: [facility] Renal Ultrasound 08/31/25 13:05 IMPRESSION: NORMAL RENAL ULTRASOUND. Reading [facility] Assessment & Plan Assessment/Plan (1) JESI (acute kidney injury): PLAN: Plan 1. Acute kidney injury-secondary to dehydration and use of diuretics for hypertension, also due to emesis from Ozempic-patient will be admitted to [facility] 3 and given IV fluids, nephrology will be consulted, labs will be monitored. Ultrasound of the kidneys will be obtained. #2 syncope secondary to orthostatic hypotension secondary to #1-patient will be seen by PT and OT #3 lactic acidosis secondary to starvation ketoacidosis and a backdrop of Glucophage usage-patient will be given IV fluids #4 orthostatic hypotension secondary to dehydration and use of blood pressure medications-patient's blood pressure medications will be held #5 nondisplaced oblique fracture of the lateral malleolus as well as avulsion fracture of the posterior malleolus of the right ankle-patient is currently in asplint, she is nonweightbearing and will be seen by PT and OT, she will need follow-up with orthopedic surgery as an outpatient #6 essential hypertension-again due to the patient's orthostatic hypotension, her blood pressure medicines are being held #7 hyponatremia secondary to volume loss-patient is on normal saline, BMP will be rechecked tomorrow #8 type 2 diabetes-sliding scale insulin will be administered per fingerstick blood sugars Total clinical time spent by myself addressing the patient's medical issues, reviewing all of her data, and collaborating with patient's care team: 75 minutes Charges/Coding Visit Charges Inpatient E&M: 71885 Subs Hosp L2 09/01/25 1218 <Electronically signed by Frantz Gunderson DO> Cosigner Signature (if applicable): CC: Dr. Frantz Gunderson DO; Dr. Red Perez MD~ Signed ADDENDUM by Dr. Frantz Gunderson DO on 09/01/25 at 1218 Visit Charges Inpatient E&M: 26636 Init Hosp L3 09/01/25 1218<Electronically signed by Frantz Gunderson DO> Cosigner Signature (if applicable): cc: Dr. Frantz Gunderson DO; Dr. Red Perez MD ~* Signed [facility] Work Phone: Hospital Discharge instructionsAdditional Instructions Please take the following medications as noted below. Note the following changes: For high blood pressure, take Toprol 50 mg daily and valsartan 80 mg daily. For diabetes, take metformin 1000 mg twice daily. Please have a repeat BMP drawn in 3 to 5 days to monitor your kidney function. Follow-up with your PCP in the next 1 to 2 weeks. Date of Discharge: 09/03/25[facility] Work Phone: Progress note Author Glen Chapman [facility] Note Date/Time August 27, 2025 1 2:38pm [facility] [address] [place] [address] OFFICE VISIT Date of Service: 08/27/25 1121 MR#: [id number] Acct: [id number] Name: HEIDI ANDREWS Rep #: [id number] : 1970 From: Glen Chapman MD Age/Sex: 55/F Location: [facility] Status: Signed HPI Subjective Date [...] follow up. Feels tired, sleeps a lot. [facility] Medical History Sleep apnea Wears glasses Thyroid [...] Known Allergies Allergy (Verified 08/27/25 11:29) Medications ?Medication ?Instructions ?Recorded ?Confirmed ?Type gemfibrozil 600 mg tablet 600 mg PO BID 11/10/2208/27 History lamotrigine 150 mg tablet 150 mg PO BID 11/10/2208/27 History levothyroxine 88 mcg tablet 88 mcg PO DAILY 11/10/22 History (Levoxyl) metformin 1,000 mg tablet 1,000 mg PO BID 11/10/22 History metoprolol succinate 200 mg 200 mg PO DAILY 11/10/22 History tablet,extended release 24 hr (Toprol XL) valsartan 320 1 tab PO DAILY 11/10/2208/15 History mg-hydrochlorothiazide 12.5 mg tablet (Diovan HCT) oxybutynin chloride 5 mg tablet 5 mg PO BID 03/05/25 History fluoxetine 20 mg capsule (Prozac) 60 mg PO DAILY 03/0808/27/25 History folic acid 1 mg tablet 1 mg PO QDAY #90 tabs 08/27/25 Rx mecobalamin (vitamin B12) 1,000 1,000 mcg PO QDAY #90 tabs 05/07/25 08/27/25 Rx mcg chewable tablet magnesium oxide 400 mg PO QDAY #30 caps 05/1508/27/25 Rx risperidone 1 mg tablet 1.5 mg PO QHS 06/04/2508/27 History potassium chloride 20 mEq 20 meq PO QDAY 08/27/2508/15 History tablet,extended release (K-Tab) semaglutide 0.25 mg or 0.5 mg (2 0.25 mg subcut QWEEK 08/27/25 08/27/25 History mg/3 mL) subcutaneous pen injector (Ozempic) [...] Deficiency of other specified B group vitamins, R53.1 - Weakness Retic Panel Count 08/27/25 D50.9 - Iron deficiency anemia, unspecified, E53.8 -Deficiency of other specified B group vitamins, R53.1 - Weakness Erythrocyte Sed Rate 08/27/25 D50.9 - Iron deficiency anemia, unspecified, E53.8 - Deficiency of other specified B group vitamins, R53.1 - Weakness CRP 08/27/25 D50.9 - Iron deficiency anemia, unspecified, E53.8 - Deficiency ofother specified B group vitamins, R53.1 - Weakness Comprehensive Metabolic Profil 08/27/25 D50.9 - Iron deficiency anemia, unspecified, E53.8 - Deficiency of other specified B group vitamins, R53.1 - Weakness Ferritin 08/27/25 D50.9 - Iron deficiency anemia, unspecified, E53.8 - Deficiency of other specified B group vitamins, R53.1 - Weakness Iron+Iron Binding Capacity 08/27/25 D50.9 - Iron deficiency anemia, unspecified, E53.8 - Deficiency of other specified B group vitamins, R53.1 - Weakness Erythropoietin 08/27/25 D50.9 - Iron deficiency anemia, unspecified, E53.8 - Deficiency of other specified B group vitamins, R53.1 - Weakness Vitamin B12 08/27/25 D50.9 - Iron deficiency anemia, unspecified, E53.8 - Deficiency of other specified B group vitamins, R53.1 - Weakness FOLATES,SERUM (FOLIC ACID) 08/27/25 D50.9 - Iron deficiency anemia, unspecified, E53.8 - Deficiency of other specified B group vitamins, R53.1 - Weakness Magnesium 08/27/25 D50.9 - Iron deficiency anemia, unspecified, E53.8 - Deficiency of other specified B group vitamins, R53.1 - Weakness Phosphorus 08/27/25 D50.9 - Iron deficiency anemia, unspecified, E53.8 - Deficiency of other specified B group vitamins, R53.1 - Weakness LDH 08/27/25 D50.9 - Iron deficiency anemia, unspecified, E53.8 - Deficiency ofother specified B group vitamins, R53.1 - Weakness Urinalysis, Complete 08/27/25 D50.9 - Iron deficiency anemia, unspecified, E53.8 - Deficiency of other specified B group vitamins, R53.1 - Weakness Immunoglobulins G/A/M 08/27/25 D50.9 - Iron deficiency anemia, unspecified, E53.8 - Deficiency of other specified B group vitamins, R53.1 - Weakness Hepatitis B/C Profile VIII 08/27/25 D50.9 - Iron deficiency anemia, unspecified, E53.8 - Deficiency of other specified B group vitamins, R53.1 - Weakness GGTP 08/27/25 D50.9 - Iron deficiency anemia, unspecified, E53.8 - Deficiency of other specified B group vitamins, R53.1 - Weakness HIV 08/27/25 D50.9 - Iron deficiency anemia, unspecified, E53.8 - Deficiency ofother specified B group vitamins, R53.1 - Weakness IgG Subclasses 08/27/25 D50.9 - Iron deficiency anemia, unspecified, E53.8 - Deficiency of other specified B group vitamins, R53.1 - Weakness [facility] Misc. 08/27/25 D50.9 - Iron deficiency anemia, unspecified, E53.8 - Deficiency of other specified B group vitamins, R53.1 - Weakness Uric Acid 08/27/25 D50.9 - Iron deficiency anemia, unspecified, E53.8 - Deficiency of other specified B group vitamins, R53.1 - Weakness Stool Occult Blood iFOB 08/28/25 D50.9 - Iron deficiency anemia, unspecified ABD Limited w/ Elastography 09/05/25 D50.9 - Iron deficiency anemia, unspecified, E53.8 - Deficiency of other specified B group vitamins, R53.1 - Weakness Plan Details Follow Up: 2 Weeks 08/29/25 1641 <Electronically signed by Glen Bowling> Date _ Glen Chapman MD Cosigner Signature: Date (if applicable) CC: Dr. Red Perez MD ~ [facility] Work Phone: Progress note Author Frantz Gunderson [facility] Note Date/Time September 01, 2025 7 :37pm [facility] Medical Records Department [address] [place] [address] Progress Note - Hospitalist 09/01/251934 MR#: [id number] Acct: [id number] Name: HEIDI ANDREWS Rep #:[id number] : 1970 55 From: Frantz Gunderson DO PCP: Dr. Red Perez MD Status:ADM I N Location: [place] [address] Reason for Visit Chief Complaint: Syncope, right ankle injury Subjective Subjective Patient was seen and examined today, she overall feels better, her labs have improved, I reviewed nephrology's note and I elected to decrease her fluids to 100 cc/h. Objective Data Objective Data Vital Signs: Vital Signs Temp Pulse Resp BP Pulse Ox O2 Del Method 98.0 F 84 16 99/59 L 96 Room Air 09/01/25 15:57 09/01/25 15:57 09/01/25 15:57 09/01/25 15:57 09/01/25 15:57 09/01/25 15:57 Oxygen Delivery Method Room Air Weight: 94 kg Body Mass Index (BMI) 33.4 Intake & Output: Intake and Output for Last 24 Hours 08/30/25 08/31/25 09/01/25 23:59 23:59 23:59 Intake Total 1290 / 1740 3825 / 3825 Balance 1290 / 1740 3825 / 3825 Medical Nutrition Assessment Dietitian: Malnutrition Criteria Met Start: 08/31/25 14:35 Freq: Status: Active Protocol: Document 08/31/25 14:36 SB (Rec: 08/31/25 14:36 SB [id number]) Nutrition Malnutrition Evidence of Yes Malnutrition Exists Malnutrition (severe Acute Illness/Injury ): Evidenced By Suboptimal Energy Intake (Severe),Weight Loss (Severe) Clinical Problem Acute Disease or Injury Related Malnutrition Etiology severe related to GI dysfunction, inadequate oral intake, and ozempic Signs/Symptoms as evidenced by PO meeting <50% of estimated nutrition needs x 1 month and 16% weight loss x 2 months Status Active Problem Recommendation Dietitian Adjust to consistent carbohydrate diet. Recommendations/ Will order 240mL chocolate glucerna shake with Changes breakfast and dinner. Pt will maintain weight while acutely ill. Lab / Micro Data 08/31/25 09:50 09/01/25 04:45 Labs: Laboratory Results - last 24 hr 08/31/25 22:40: Lactic Acid 3.0 H* 09/01/25 04:45: Sodium 131 L, Potassium 4.1, Chloride 97 L, Carbon Dioxide 17.2 L, Anion Gap 17 H, BUN 43 H, Creatinine 2.42 H, Estim Creat Clear Calc 31.06 L, Est GFR (MDRD) Non-Af 23 L, BUN/Creatinine Ratio 17.9, Glucose 145 H, Calcium 8.6 09/01/25 06:17: POC Glucose 131 H 09/01/25 11:23: POC Glucose 170 H 09/01/25 16:52: POC Glucose 146 H Physical Exam Narrative alert, oriented x3, no apparent distress and healthy appearing General Appearance: cooperative, well kempt and well developed Orientation / Consciousness: awake, oriented to person, oriented to place and oriented to time HEENT normocephalic, head/scalp atraumatic, hearing grossly normal bilaterally and moist oral mucous membranes Eyes PERRL, EOMs intact bilaterally and conjunctivae normal Neck supple, no JVD, thyroid normal and no carotid bruits General: trachea midline Resp normal respiratory effort, no retractions, no use of accessory muscles and clearto auscultation bilaterally Auscultation: Negative for rales, rhonchi or wheezes Cardio regular rate, regular rhythm, S1 normal heart sound, S2 normal heart sound, no murmurs, no rub and no gallops GI normal to inspection, nondistended, normoactive bowel sounds, soft to palpation,non-tender and non-distended Extremity Extremity Narrative: Right lower extremity is encased in a splint Skin no rashes or lesions noted General Skin Exam: no breakdown Neuro oriented x3, CN's II-XII intact bilaterally, no focal motor deficits and no sensory deficits noted Sensorium / Orientation: awake and alert Speech: speech normal Psych affect normal Assessment & Plan Assessment/Plan (1) JESI (acute kidney injury): PLAN: Plan 1. Acute kidney injury-secondary to dehydration and use of diuretics for hypertension, also due to emesis from Ozempic-continue IV fluids at 100 cc/h, labs will be repeated tomorrow #2 syncope secondary to orthostatic hypotension secondary to #1-patient will be seen by PT and OT #3 lactic acidosis secondary to starvation ketoacidosis and a backdrop of Glucophage usage-patient will be given IV fluids #4 orthostatic hypotension secondary to dehydration and use of blood pressure medications-patient's blood pressure medications will be held #5 nondisplaced oblique fracture of the lateral malleolus as well as avulsion fracture of the posterior malleolus of the right ankle-patient is currently in asplint, she is nonweightbearing and will be seen by PT and OT, she will need follow-up with orthopedic surgery as an outpatient #6 essential hypertension-again due to the patient's orthostatic hypotension, her blood pressure medicines are being held #7 hyponatremia secondary to volume loss-patient is on normal saline, BMP will be rechecked tomorrow #8 type 2 diabetes-sliding scale insulin will be administered per fingerstick blood sugars Total clinical time spent by myself addressing the patient's medical issues, reviewing all of her data, and collaborating with patient's care team: 35 minutes Charges/Coding Visit Charges Inpatient E&M: 67902 Subs Hosp L2 09/01/251936 <Electronically signed by Frantz Gunderson DO> Cosigner Signature (if applicable): CC: ~ Signed [facility] Work Phone: Progress note [facility] Note Date/Time September 02, 2025 1 2:43pm [facility] Medical Records Department [address] [place] [address] Progress Note - Hospitalist 09/02/25 1230 MR#: [id number] Acct: [id number] Name: HEIDI ANDREWS Rep #:[id number] : 1970 55 From: Frantz Gunderson DO PCP: Dr. Red Perez MD Status:ADM I N Location: [place] [id number] Reason for Visit Chief Complaint: Syncope, right ankle injury Subjective Subjective Patient was seen and examined today, her creatinine is 1.34. I had entertained discharging her but due to her ankle fracture, she will need set up with orthopedic equipment and I think is better if she goes home tomorrow. Patient'sblood sugars are adequately controlled at this time. Objective Data Objective Data Vital Signs: Vital Signs Temp Pulse Resp BP Pulse Ox O2 Del Method 97.2 F L 94 16 115/61 100 Room Air 09/02/25 08:43 09/02/25 08:43 09/02/25 08:43 09/02/25 08:43 09/02/25 08:43 09/02/25 08:43 Oxygen Delivery Method Room Air Weight: 94 kg Body Mass Index (BMI) 33.4 Intake & Output: Intake and Output for Last 24 Hours 08/31/25 09/01/25 09/02/25 23:59 23:59 23:59 Intake Total 1290 / 1740 3825 / 3945 1120 / 1120 Balance 1290 / 1740 3825 / 3945 1120 / 1120 Medical Nutrition Assessment Dietitian: Malnutrition Criteria Met Start: 08/31/25 14:35 Freq: Status: Active Protocol: Document 08/31/25 14:36 SB (Rec: 08/31/25 14:36 SB [id number]) Nutrition Malnutrition Evidence of Yes Malnutrition Exists Malnutrition (severe Acute Illness/Injury ): Evidenced By Suboptimal Energy Intake (Severe),Weight Loss (Severe) Clinical Problem Acute Disease or Injury Related Malnutrition Etiology severe related to GI dysfunction, inadequate oral intake, and ozempic Signs/Symptoms as evidenced by PO meeting <50% of estimated nutrition needs x 1 month and 16% weight loss x 2 months Status Active Problem Recommendation Dietitian Adjust to consistent carbohydrate diet. Recommendations/ Will order 240mL chocolate glucerna shake with Changes breakfast and dinner. Pt will maintain weight while acutely ill. Lab / Micro Data 08/31/25 09:50 09/02/25 03:50 Labs: Laboratory Results - last 24 hr 09/01/25 16:52: POC Glucose 146 H 09/01/25 22:10: POC Glucose 156 H 09/02/25 00:12: U Random Total Protein 7.1, Urine Creatinine 55.60, Protein/Creatinin Ratio 128 09/02/25 03:50: Sodium 135, Potassium 3.8, Chloride 104, Carbon Dioxide 18.9 L, Anion Gap 13, BUN 23 H, Creatinine 1.34 H, Estim Creat Clear Calc 56.09, Est GFR(MDRD) Non-Af 47 L, BUN/Creatinine Ratio 16.9, Glucose 106 H, Calcium 8.7 09/02/25 06:42: POC Glucose 123 H 09/02/25 11:16: POC Glucose 123 H Physical Exam Narrative alert, oriented x3, no apparent distress and healthy appearing General Appearance: cooperative, well kempt and well developed Orientation / Consciousness: awake, oriented to person, oriented to place and oriented to time HEENT normocephalic, head/scalp atraumatic, hearing grossly normal bilaterally and moist oral mucous membranes Eyes PERRL, EOMs intact bilaterally and conjunctivae normal Neck supple, no JVD, thyroid normal and no carotid bruits General: trachea midline Resp normal respiratory effort, no retractions, no use of accessory muscles and clearto auscultation bilaterally Auscultation: Negative for rales, rhonchi or wheezes Cardio regular rate, regular rhythm, S1 normal heart sound, S2 normal heart sound, no murmurs, no rub and no gallops GI normal to inspection, nondistended, normoactive bowel sounds, soft to palpation,non-tender and non-distended Extremity Extremity Narrative: Right lower extremity is encased in a splint Skin no rashes or lesions noted General Skin Exam: no breakdown Neuro oriented x3, CN's II-XII intact bilaterally, no focal motor deficits and no sensory deficits noted Sensorium / Orientation: awake and alert Speech: speech normal Psych affect normal Assessment & Plan Assessment/Plan (1) JESI (acute kidney injury): PLAN: Plan 1. Acute kidney injury-secondary to dehydration and use of diuretics for hypertension, also due to emesis from Ozempic-continue IV fluids at 100 cc/h, labs will be repeated tomorrow #2 syncope secondary to orthostatic hypotension secondary to #1-patient will be seen by PT and OT #3 lactic acidosis secondary to starvation ketoacidosis and a backdrop of Glucophage usage-patient will be given IV fluids #4 orthostatic hypotension secondary to dehydration and use of blood pressure medications-patient's blood pressure medications will be held #5 nondisplaced oblique fracture of the lateral malleolus as well as avulsion fracture of the posterior malleolus of the right ankle-patient is currently in asplint, she is nonweightbearing and will be seen by PT and OT, she will need follow-up with orthopedic surgery as an outpatient, she will need orthopedic equipment at the time of discharge, she will need to follow-up with Dr. Prakash within the next 1 to 2 weeks, I talked briefly with Dr. Prakash today and he hasthe patient's contact information including her phone number. She needs to remain nonweightbearing on the right ankle/leg #6 essential hypertension-again due to the patient's orthostatic hypotension, her blood pressure medicines are being held #7 hyponatremia secondary to volume loss-patient is on normal saline, BMP will be rechecked tomorrow #8 type 2 diabetes-sliding scale insulin will be administered per fingerstick blood sugars #9 iron deficiency anemia-patient is currently getting worked up as an outpatient regarding this by Dr. Chapman #10 severe acute protein and caloric malnutrition-severe related to GI dysfunction, inadequate oral intake and Ozempic as evidenced by p.o. meeting less than 50% of estimated nutritional needs x 1 month and 16% weight loss x 2 months-diet was adjusted to consistent carbohydrate, 240 cc of chocolate Glucerna shake with breakfast and dinner was ordered, nutritional services is monitoring patient Total clinical time spent by myself addressing the patient's medical issues, reviewing all of her data, and collaborating with patient's care team: 35 minutes Charges/Coding Visit Charges Inpatient E&M: 13876 Subs Hosp L2 09/02/25 1243 <Electronically signed by Frantz Gunderson DO> Cosigner Signature (if applicable): CC: ~ Signed [facility] Work Phone: Reason for referral (narrative)No reason for referral information availableWSouthwest [facility] Work Phone: Chief Complaint and Reason [...] 2025 9:55 am Chief Complaint Admit Date 4WKS LABS(10:00) June 04, 2025 9:55 am Moderate persistent asthma July 7:50am E-ORDER, 2 ORDERING DRS. August 22 10:16am 12WKS LABS DAY EARLY August 27, 2025 11:15am MED ONC August 30, 2025 2 :27pm ACUTE KIDNEY INJURY August 31, 2025 1 2:54pm ACUTE KIDNEY INJURY August 31, 2025 6 :49pm ACUTE KIDNEY INJURY September 01, 2025 7 :35pm ACUTE KIDNEY INJURY September 02, 2025 1 2:30pm ACUTE KIDNEY INJURY September 03, 2025 1 2:29pm EORDER- BMP/ PRE-OP SURGERY LABS A1C Oct peg 2024 11:11am Reason for Visit Admit Date B12 deficiency June 04, 2025 9:55 am Hypomagnesemia June 04, 2025 9:55 am Iron deficiency anemia June 04, 2025 9 :55am B12 deficiency August 27, 2025 1 1:15am General weakness August 27, 2025 1 1:15am Iron deficiency anemia August 27 11:15am Acute hyponatremia August 31, 2025 1 2:54pm JESI (acute kidney injury) August 31, 2025 12:54pm Ankle fracture, right August 31, 2025 12:54pm Elevated lactic acid level August 31, 2025 12:54pm Hematoma of occipital region of scalp Oc tober 2024 12:54pm Iron deficiency anemia August 31 12:54pm Syncope August 31, 2025 1 2:54pm Family History No Family History Records Found [...] Will No November 25 8:38am Power of Gold Prospector No November 25, 2022 8:38am Advance Directive Response Recorded Date/ Time Living Will No November 25 9:38am Power of Gold Prospector No November 25, 2022 9:38am Advance Directive Response Recorded Date/ Time Do you have a Healthcare Power of Gold Prospector? No August 31, 2025 1:27pm Advance Directive Response Recorded Date/ Time Do you have a Healthcare Power of Gold Prospector? No August 31, 2025 12:27pm Summary Purpose Additional Source Comments Goals (unrecognized [...] Active Member Role Status Dates Dr. Red Perez MD Family Provider Active Dr. Red Perez MD Primary Care Provider Active Team Status: Active Member Role Status Dates Dr. Red Perez MD Primary Care Provider Active Cristy Hernandez Attending Provider Active Team Status: Active Member Role Status Dates Dr. Red Perez MD Primary Care Provider, Referring Provider Active Dr. Lamine Marie MD Attending Provider, Other Provider Active Team Status: Inactive Member Role Status Dates Dr. Red Perez MD Primary Care Provider, Referring Provider Active Dr. Lamine Marie MD Attending Provider Active Team Status: Inactive Member Role Status Dates Dr. Red Perez MD Primary Care Provider, Attending Provider Active Team Status: Inactive Member Role Status Dates Dr. Red Perez MD Primary Care Provider Active DELILAH Celestin Attending Provider, Referr ing Provider Active Team Status: Inactive Member Role Status Dates Dr. Red Perez MD Primary Care Provider Active Start: March 01, 2025 End: March 01, 2025 Dr. Red Perez MD Attending Provider Active Start: March 01, 2025 End: March 01, 2025 Dr. Red Perez MD Referring Provider Active Start: March 01, 2025 End: March 01, 2025 JHONNY SARGENT Other Provider Active Start: March 01, 2025 End: March 01, 2025 Team Status: Active Member Role Status Dates Dr. Red Perez MD Primary Care Provider Active Start: March 05, 2025 Dr. Red Perez MD Attending Provider Active Start: March 05, 2025 Dr. Red Perez MD Referring Provider Active Start: March 05, 2025 Team Status: Active Member Role Status Dates Dr. Red Perez MD Primary Care Provider Active Start: March 05, 2025 Yamila Stein LPN Attending Provider Active S tart: March 05, 2025 Team Status: Active Member Role Status Dates Dr. Red Perez MD Primary Care Provider Active Team Status: Inactive Member Role Status Dates Dr. Red Perez MD Primary Care Provider Active Start: March 05, 2025 End: March 05, 2025 Dr. Red Perez MD Attending Provider Active Start: March 05, 2025 End: March 05, 2025 Dr. Red Perez MD Referring Provider Active Start: March 05, 2025 End: March 05, 2025 Team Status: Inactive Member Role Status Dates Dr. Red Perez MD Primary Care Provider Active Start: March 08, 2025 End: March 08, 2025 Dr. Red Perez MD Referring Provider Active Start: March 08, 2025 End: March 08, 2025 Dr. Glen Chapman MD Attending Provider Active S tart: March 08, 2025 End: March 08, 2025 Team Status: Active Member Role Status Dates Dr. Red Perez MD Primary Care Provider Active Start: March 29, 2025 Dr. Glen Chapman MD Attending Provider Active S tart: March 29, 2025 Dr. Glen Chapman MD Referring Provider Active S tart: March 29, 2025 Team Status: Inactive Member Role Status Dates Dr. Red Perez MD Primary Care Provider Active Start: March 29, 2025 End: March 29, 2025 Dr. Red Perez MD Attending Provider Active Start: March 29, 2025 End: March 29, 2025 Dr. Red Preez MD Referring Provider Active Start: March 29, 2025 End: March 29, 2025 Team Status: Inactive Member Role Status Dates Dr. Red Perez MD Primary Care Provider Active Start: April 17, 2025 End: April 17, 2025 Dr. Red Perez MD Attending Provider Active Start: April 17, 2025 End: April 17, 2025 Dr. Red Perez MD Referring Provider Active Start: April 17, 2025 End: April 17, 2025 Team Status: Active Member Role Status Dates Dr. Red Perez MD Primary Care Provider Active Start: April 17, 2025 Dr. Red Perez MD Referring Provider Active Start: April 17, 2025 Dr. Red Perez MD Other Provider Active Star t: April 17, 2025 Dr. John Damian MD Attending Provider Active Start: April 17, 2025 Team Status: Active Member Role Status Dates Dr. Red Perez MD Primary Care Provider Active Start: May 07, 2025 Dr. Glen Chapman MD Attending Provider Active S tart: May 07, 2025 Dr. Glen Chapman MD Referring Provider Active S tart: May 07, 2025 Team Status: Active Member Role/Relationship Status Dates Dr. Red Perez MD Primary Care Provider Active Team Status: Inactive Member Role/Relationship Status Dates Dr. Red Perez MD Primary Care Provider Active Start: March 01, 2025 End: March 01, 2025 Dr. Red Perez MD Attending Provider Active Start: March 01, 2025 End: March 01, 2025 Dr. Red Perez MD Referring Provider Active Start: March 01, 2025 End: March 01, 2025 JHONNY SARGENT Other Provider Active Start: March 01, 2025 End: March 01, 2025 Team Status: Inactive Member Role/Relationship Status Dates Dr. Red Perez MD Primary Care Provider Active Start: March 05, 2025 End: March 05, 2025 Dr. Red Perez MD Attending Provider Active Start: March 05, 2025 End: March 05, 2025 Dr. Red Perez MD Referring Provider Active Start: March 05, 2025 End: March 05, 2025 Team Status: Active Member Role/Relationship Status Dates Dr. Red Perez MD Primary Care Provider Active Start: March 05, 2025 Yamila Stein LPN Attending Provider Active S tart: March 05, 2025 Team Status: Inactive Member Role/Relationship Status Dates Dr. Red Perez MD Primary Care Provider Active Start: March 08, 2025 End: March 08, 2025 Dr. Red Perez MD Referring Provider Active Start: March 08, 2025 End: March 08, 2025 Dr. Glen Chapman MD Attending Provider Active S tart: March 08, 2025 End: March 08, 2025 Team Status: Inactive Member Role/Relationship Status Dates Dr. Red Perez MD Primary Care Provider Active Start: March 29, 2025 End: March 29, 2025 Dr. Red Perez MD Attending Provider Active Start: March 29, 2025 End: March 29, 2025 Dr. Red Perez MD Referring Provider Active Start: March 29, 2025 End: March 29, 2025 Team Status: Inactive Member Role/Relationship Status Dates Dr. Red Perez MD Primary Care Provider Active Start: April 17, 2025 End: April 17, 2025 Dr. Red Perez MD Attending Provider Active Start: April 17, 2025 End: April 17, 2025 Dr. Red Perez MD Referring Provider Active Start: April 17, 2025 End: April 17, 2025 Team Status: Active Member Role/Relationship Status Dates Dr. Red Perez MD Primary Care Provider Active Start: April 17, 2025 Dr. Red Perez MD Referring Provider Active Start: April 17, 2025 Dr. Red Perez MD Other Provider Active Star t: April 17, 2025 Dr. John Damian MD Attending Provider Active Start: April 17, 2025 Team Status: Inactive Member Role/Relationship Status Dates Dr. Red Perez MD Primary Care Provider Active Start: May 07, 2025 End: May 07, 2025 Dr. Red Perez MD Referring Provider Active Start: May 07, 2025 End: May 07, 2025 Dr. Glen Chapman MD Attending Provider Active S tart: May 07, 2025 End: May 07, 2025 Team Status: Inactive Member Role/Relationship Status Dates Dr. Red Perez MD Primary Care Provider Active Start: June 04, 2025 End: June 04, 2025 Dr. Red Perez MD Referring Provider Active Start: June 04, 2025 End: June 04, 2025 Dr. Glen Chapman MD Attending Provider Active S tart: June 04, 2025 End: June 04, 2025 Team Status: Active Member Role/Relationship Status Dates Dr. Red Perez MD Primary Care Provider Active Start: June 04, 2025 Dr. Glen Chapman MD Attending Provider Active S tart: June 04, 2025 Dr. Glen Chapman MD Referring Provider Active S tart: June 04, 2025 Team Status: Inactive Member Role/Relationship Status Dates Dr. Red Perez MD Primary Care Provider Active Start: March 05, 2025 End: March 05, 2025 Dr. Red Perez MD Attending Provider Active Start: March 05, 2025 End: March 05, 2025 Dr. Red Perez MD Referring Provider Active Start: March 05, 2025 End: March 05, 2025 Team Status: Active Member Role/Relationship Status Dates Dr. Red Perez MD Primary Care Provider Active Start: March 05, 2025 Yamila Stein LPN Attending Provider Active S tart: March 05, 2025 Team Status: Inactive Member Role/Relationship Status Dates Dr. Red Perez MD Primary Care Provider Active Start: March 08, 2025 End: March 08, 2025 Dr. Red Perez MD Referring Provider Active Start: March 08, 2025 End: March 08, 2025 Dr. Glen Chapman MD Attending Provider Active S tart: March 08, 2025 End: March 08, 2025 Team Status: Inactive Member Role/Relationship Status Dates Dr. Red Perez MD Primary Care Provider Active Start: March 29, 2025 End: March 29, 2025 Dr. Red Perez MD Attending Provider Active Start: March 29, 2025 End: March 29, 2025 Dr. Red Perez MD Referring Provider Active Start: March 29, 2025 End: March 29, 2025 Team Status: Inactive Member Role/Relationship Status Dates Dr. Red Perez MD Primary Care Provider Active Start: April 17, 2025 End: April 17, 2025 Dr. Red Perez MD Attending Provider Active Start: April 17, 2025 End: April 17, 2025 Dr. Red Perez MD Referring Provider Active Start: April 17, 2025 End: April 17, 2025 Team Status: Active Member Role/Relationship Status Dates Dr. Red Perez MD Primary Care Provider Active Start: April 17, 2025 Dr. Red Perez MD Referring Provider Active Start: April 17, 2025 Dr. Red Perez MD Other Provider Active Star t: April 17, 2025 Dr. John Damian MD Attending Provider Active Start: April 17, 2025 Team Status: Inactive Member Role/Relationship Status Dates Dr. Red Perez MD Primary Care Provider Active Start: May 07, 2025 End: May 07, 2025 Dr. Red Perez MD Referring Provider Active Start: May 07, 2025 End: May 07, 2025 Dr. Glen Chapman MD Attending Provider Active S tart: May 07, 2025 End: May 07, 2025 Team Status: Inactive Member Role/Relationship Status Dates Dr. Red Perez MD Primary Care Provider Active Start: June 04, 2025 End: June 04, 2025 Dr. Red Perez MD Referring Provider Active Start: June 04, 2025 End: June 04, 2025 Dr. Glen Chapman MD Attending Provider Active S tart: June 04, 2025 End: June 04, 2025 Team Status: Active Member Role/Relationship Status Dates Dr. Red Perez MD Primary Care Provider Active Start: June 04, 2025 Dr. Glen Chapman MD Attending Provider Active S tart: June 04, 2025 Dr. Glen Chapman MD Referring Provider Active S tart: June 04, 2025 Team Status: Active Member Role/Relationship Status Dates Dr. Red Perez MD Primary Care Provider Active Start: June 15, 2025 Dr. Nikolai Kim MD Attending Provider Active Start: June 15, 2025 Dr. Nikolai Kim MD Referring Provider Active Start: June 15, 2025 Team Status: Inactive Member Role/Relationship Status Dates Dr. Red Perez MD Primary Care Provider Active Start: June 27, 2025 End: June 27, 2025 Dr. Red Perez MD Attending Provider Active Start: June 27, 2025 End: June 27, 2025 Team Status: Inactive Member Role/Relationship Status Dates Dr. Red Perez MD Primary Care Provider Active Start: March 08, 2025 End: March 08, 2025 Dr. Red Perez MD Referring Provider Active Start: March 08, 2025 End: March 08, 2025 Dr. Glen Chapman MD Attending Provider Active S tart: March 08, 2025 End: March 08, 2025 Team Status: Inactive Member Role/Relationship Status Dates Dr. Red Perez MD Primary Care Provider Active Start: March 29, 2025 End: March 29, 2025 Dr. Red Perez MD Attending Provider Active Start: March 29, 2025 End: March 29, 2025 Dr. Red Perez MD Referring Provider Active Start: March 29, 2025 End: March 29, 2025 Team Status: Inactive Member Role/Relationship Status Dates Dr. Red Perez MD Primary Care Provider Active Start: April 17, 2025 End: April 17, 2025 Dr. Red Perez MD Attending Provider Active Start: April 17, 2025 End: April 17, 2025 Dr. Red Perez MD Referring Provider Active Start: April 17, 2025 End: April 17, 2025 Team Status: Active Member Role/Relationship Status Dates Dr. Red Perez MD Primary Care Provider Active Start: April 17, 2025 Dr. Red Perez MD Referring Provider Active Start: April 17, 2025 Dr. Red Perez MD Other Provider Active Star t: April 17, 2025 Dr. John Damian MD Attending Provider Active Start: April 17, 2025 Team Status: Inactive Member Role/Relationship Status Dates Dr. Red Perez MD Primary Care Provider Active Start: May 07, 2025 End: May 07, 2025 Dr. Red Perez MD Referring Provider Active Start: May 07, 2025 End: May 07, 2025 Dr. Glen Chapman MD Attending Provider Active S tart: May 07, 2025 End: May 07, 2025 Team Status: Inactive Member Role/Relationship Status Dates Dr. Red Perez MD Primary Care Provider Active Start: June 04, 2025 End: June 04, 2025 Dr. Red Perez MD Referring Provider Active Start: June 04, 2025 End: June 04, 2025 Dr. Glen Chapman MD Attending Provider Active S tart: June 04, 2025 End: June 04, 2025 Team Status: Active Member Role/Relationship Status Dates Dr. Red Perez MD Primary Care Provider Active Start: June 04, 2025 Dr. Glen Chapman MD Attending Provider Active S tart: June 04, 2025 Dr. Glen Chapman MD Referring Provider Active S tart: June 04, 2025 Team Status: Inactive Member Role/Relationship Status Dates Dr. Red Perez MD Primary Care Provider Active Start: June 15, 2025 End: June 15, 2025 Dr. Nikolai Kim MD Attending Provider Active Start: June 15, 2025 End: June 15, 2025 Dr. Nikolai Kim MD Referring Provider Active Start: June 15, 2025 End: June 15, 2025 Team Status: Inactive Member Role/Relationship Status Dates Dr. Red Perez MD Primary Care Provider Active Start: June 27, 2025 End: June 27, 2025 Dr. Red Perez MD Attending Provider Active Start: June 27, 2025 End: June 27, 2025 Team Status: Active Member Role/Relationship Status Dates Dr. Red Perez MD Primary care physician Active Team Status: Inactive Member Role/Relationship Status Dates Dr. Red Perez MD Primary care physician Active Start: May 07, 2025 End: May 07, 2025 Dr. Red Perez MD Referring Provider Active Start: May 07, 2025 End: May 07, 2025 Dr. Glen Chapman MD Attending physician Active Start: May 07, 2025 End: May 07, 2025 Team Status: Inactive Member Role/Relationship Status Dates Dr. Red Perez MD Primary care physician Active Start: June 04, 2025 End: June 04, 2025 Dr. Red Perez MD Referring Provider Active Start: June 04, 2025 End: June 04, 2025 Dr. Glen Chapman MD Attending physician Active Start: June 04, 2025 End: June 04, 2025 Team Status: Active Member Role/Relationship Status Dates Dr. Red Perez MD Primary care physician Active Start: June 04, 2025 Dr. Glen Chapman MD Attending physician Active Start: June 04, 2025 Dr. Glen Chapman MD Referring Provider Active S tart: June 04, 2025 Team Status: Inactive Member Role/Relationship Status Dates Dr. Red Perez MD Primary care physician Active Start: June 15, 2025 End: June 15, 2025 Dr. Nikolai Kim MD Attending physician Active Start: June 15, 2025 End: June 15, 2025 Dr. Nikolai Kim MD Referring Provider Active Start: June 15, 2025 End: June 15, 2025 Team Status: Inactive Member Role/Relationship Status Dates Dr. Red Perez MD Primary care physician Active Start: June 27, 2025 End: June 27, 2025 Dr. Red Perez MD Attending physician Active Start: June 27, 2025 End: June 27, 2025 Team Status: Inactive Member Role/Relationship Status Dates Dr. Red Perez MD Primary care physician Active Start: August 13, 2025 End: August 13, 2025 Dr. Nikolai Kim MD Attending physician Active Start: August 13, 2025 End: August 13, 2025 Dr. Nikolai Kim MD Referring Provider Active Start: August 13, 2025 End: August 13, 2025 Team Status: Inactive Member Role/Relationship Status Dates Dr. Red Perez MD Primary care physician Active Start: June 04, 2025 End: June 04, 2025 Dr. Red Perez MD Referring Provider Active Start: June 04, 2025 End: June 04, 2025 Dr. Glen Chapman MD Attending physician Active Start: June 04, 2025 End: June 04, 2025 Team Status: Inactive Member Role/Relationship Status Dates Dr. Red Perez MD Primary care physician Active Start: June 15, 2025 End: June 15, 2025 Dr. Nikolai Kim MD Attending physician Active Start: June 15, 2025 End: June 15, 2025 Dr. Nikolai Kim MD Referring Provider Active Start: June 15, 2025 End: June 15, 2025 Team Status: Inactive Member Role/Relationship Status Dates Dr. Red Perez MD Primary care physician Active Start: June 27, 2025 End: June 27, 2025 Dr. Red Perez MD Attending physician Active Start: June 27, 2025 End: June 27, 2025 Team Status: Inactive Member Role/Relationship Status Dates Dr. Red Perez MD Primary care physician Active Start: August 13, 2025 End: August 13, 2025 Dr. Nikolai Kim MD Attending physician Active Start: August 13, 2025 End: August 13, 2025 Dr. Nikolai Kim MD Referring Provider Active Start: August 13, 2025 End: August 13, 2025 Team Status: Inactive Member Role/Relationship Status Dates Dr. Red Perez MD Primary care physician Active Start: August 17, 2025 End: August 17, 2025 Dr. Red Perez MD Attending physician Active Start: August 17, 2025 End: August 17, 2025 Team Status: Inactive Member Role/Relationship Status Dates Dr. Red Perez MD Primary care physician Active Start: August 22, 2025 End: August 22, 2025 Dr. Red Perez MD Attending physician Active Start: August 22, 2025 End: August 22, 2025 Dr. Red Perez MD Referring Provider Active Start: August 22, 2025 End: August 22, 2025 Dr. Glen Chapman MD Nurse Practitioner Active S tart: August 22, 2025 End: August 22, 2025 Team Status: Inactive Member Role/Relationship Status Dates Dr. Red Perez MD Primary care physician Active Start: August 27, 2025 End: August 27, 2025 Dr. Red Perez MD Referring Provider Active Start: August 27, 2025 End: August 27, 2025 Dr. Glen Chapman MD Attending physician Active Start: August 27, 2025 End: August 27, 2025 Team Status: Active Member Role/Relationship Status Dates Dr. Red Perez MD Primary care physician Active Start: August 30, 2025 Dr. Glen Chapman MD Attending physician Active Start: August 30, 2025 Dr. Glen Chapman MD Referring Provider Active S tart: August 30, 2025 Team Status: Inactive Member Role/Relationship Status Dates Dr. Red Perez MD Primary care physician Active Start: August 31, 2025 End: September 03, 2025 Dr. Berlin Wilson DO Emergency Departm ent Physician Active Start: August 31, 2025 End: September 03, 2025 Dr. Frantz Gunderson DO Admitting physician Active Start: August 31, 2025 End: September 03, 2025 Dr. Frantz Gunderson DO Nurse Practitioner Active Start: August 31, 2025 End: September 03, 2025 Dr. Memo Valdez MD Nurse Practitioner Active Start: August 31, 2025 End: September 03, 2025 Dr. Jacques Muñoz DO Attending physician Active Start: August 31, 2025 End: September 03, 2025 Team Status: Active Member Role/Relationship Status Dates Dr. Red Perez MD Primary care physician Active Start: August 31, 2025 Dr. Berlin Wilson DO Emergency Departm ent Physician Active Start: August 31, 2025 Dr. Frantz Gunderson DO Admitting physician Active Start: August 31, 2025 Dr. Frantz Gunderson DO Attending physician Active Start: August 31, 2025 Dr. Frantz Gunderson DO Nurse Practitioner Active Start: August 31, 2025 Dr. Memo Valdez MD Nurse Practitioner Active Start: August 31, 2025 Team Status: Active Member Role/Relationship Status Dates Dr. Red Perez MD Primary care physician Active Start: September 01, 2025 Dr. Berlin Wilson , DO Emergency Departm ent Physician Active Start: September 01, 2025 Dr. Frantz Gunderson , Admitting physician Active Start: September 01, 2025 Dr. Frantz Gunderson , Attending physician Active Start: September 01, 2025 Dr. Frantz Gunderson DO Nurse Practitioner Active Start: September 01, 2025 Dr. Memo Valdez MD Nurse Practitioner Active Start: September 01, 2025 Team Status: Active Member Role/Relationship Status Dates Dr. Red Perez MD Primary care physician Active Start: September 02, 2025 Dr. Berlin Wilson , DO Emergency Departm ent Physician Active Start: September 02, 2025 Dr. Frantz Gunderson DO Admitting physician Active Start: September 02, 2025 Dr. Frantz Gunderson DO Attending physician Active Start: September 02, 2025 Dr. Frantz Gunderson DO Nurse Practitioner Active Start: September 02, 2025 Dr. Memo Valdez MD Nurse Practitioner Active Start: September 02, 2025 Team Status: Active Member Role/Relationship Status Dates Dr. Red Perez MD Primary care physician Active Start: September 03, 2025 Dr. Berlin Wilson DO Emergency Departm ent Physician Active Start: September 03, 2025 Dr. Frantz Gunderson DO Admitting physician Active Start: September 03, 2025 Dr. Frantz Gunderson DO Nurse Practitioner Active Start: September 03, 2025 Dr. Memo Valdez MD Nurse Practitioner Active Start: September 03, 2025 Dr. Jacques Muñoz DO Attending physician Active Start: September 03, 2025 Dr. Jacques Muñoz , Nurse Practitioner Active Start: September 03, 2025 Team Status: Active Member Role/Relationship Status Dates Dr. Red Perez MD Primary care physician Active Start: September 07, 2025 Dr. Red Perez MD Nurse Practitioner Active Start: September 07, 2025 EDY Fuller Attending physician Active Start: September 07, 2025 EDY Fuller Referring Provider Active Start: September 07, 2025 Dr. Jacques Muñoz DO Nurse Practitioner Active Start: September 07, 2025 Team Status: Inactive Member Role/Relationship Status Dates Dr. Red Perez MD Primary care physician Active Start: September 07, 2025 End: September 07, 2025 Dr. Red Perez MD Nurse Practitioner Active Start: September 07, 2025 End: September 07, 2025 EDY Fuller Attending physician Active Start: September 07, 2025 End: September 07, 2025 EDY Fuller Referring Provider Active Start: September 07, 2025 End: September 07, 2025 Dr. Jacques Muñoz DO Nurse Practitioner Active Start: September 07, 2025 End: September 07, 2025 Team Status: Inactive Member Role/Relationship Status Dates Dr. Red Perez MD Primary care physician Active Start: September 14, 2025 End: September 14, 2025 Dr. Red Perez MD Attending physician Active Start: September 14, 2025 End: September 14, 2025 INFORMATION SOURCE (unrecogn ized section and content) DATE CREATED AUTHOR 09/19/2025 [facility] DATE CREATED AUTHOR AUTHOR'S ORGANIZ ATION 09/22/2025 [facility] FOR RECORDS PERTAINING TO PATIENTS [...] BE BASED ON THE PRIMARY CLINICAL RECORDS. [employer] provides no warranty or guarantee of the accuracy or completeness of information in this document.
== END | disposition home or self-care (01) ==
LOC: US 07:08
PROVIDERS: PCP Family Medicine; Referring Provider Internal Medicine Medical Oncology; Visit Provider Internal Medicine Medical Oncology
DX: D50.9 Iron deficiency anemia, unspecified (principal); R53.1 Weakness; E53.8 Deficiency of other specified B group vitamins
CPT/HCPCS: 76705; 76981

== ENCOUNTER → 2025-10-10 | Outpatient (CLI) | payer OTHER, SELFPAY ==
[2025-10-10 12:53] LABS: AST(SGOT) 21 U/L (<=31); Alanine Aminotransfer ALT/SGPT 9 U/L (<=34); Albumin, Serum 4.5 g/dL (3.5-5.0); Alkaline Phosphatase 88 U/L (35-104); Bilirubin, Direct 0.22 mg/dL (0.00-0.30); Ferritin 209 ng/mL (22-378); Globulin 3.0 g/dL (2.2-4.2)
[2025-10-12 04:07] LABS: Anti-Smooth Muscle ABS 5 Units (0-19); GGTP 19 IU/L (0-60)
[2025-10-12 08:07] LABS: ANTINUCLEAR ANTIBODIES DIRECT Positive (Negative); Alpha Antitrypsin Serum 229 mg/dL (101-187)
== END | disposition home or self-care (01) ==
LOC: MTLAB 10:39
PROVIDERS: PCP Family Medicine; Referring Provider Internal Medicine Gastroenterology; Visit Provider Internal Medicine Gastroenterology
DX: K75.9 Inflammatory liver disease, unspecified (principal)
CPT/HCPCS: 36415; 80076; 82103; 82390; 82728; 82977; 83516; 86038

== ENCOUNTER → 2025-10-20 | Outpatient (CLI) | payer OTHER, SELFPAY ==
--- OUTSIDE RECORDS SUMMARY | 2025-10-20 10:02 | XMS RPT_ITS | CCD ---
Author Organization [facility] CliniSytx Care Team Providers Care Feather Separator Name Role Phone Dr. Red Perez Primary [...] Ari JARAMILLO, Dr. Carroll Nurse Practitioner Ari JARAMILLO, Dr. Carroll Referring Provider Steve SHANE, Dr. Slade Emergency Department Physi gabrielle Jalyn SHANE, Dr. Landry Admitting Physician Jalyn SHANE, Dr. Landry Nurse Practitioner José Miguel JARAMILLO, Dr. Hampton Nurse Practitioner Toni SHANE, Dr. Hanna Attending Physician Jalyn SHANE, Dr. Landry Attending Physician Toni SHANE, Dr. Hanna Nurse Practitioner Ana JARAMILLO, Dr. Moon Nurse Practitioner Cynthia Tom Attending Physician Cynthia Tom Referring Provider Ana JARAMILLO, Dr. Moon [...] Practitioner Ana JARAMILLO, Dr. Moon Nurse Practitioner Cynthia Tom Attending Physician Cynthia Tom Referring Provider JEM JAVIER DR Attending [...] [place] Wilson DO Emergency Department Physi gabrielle [facility], Dr. Landry Admitting Physician Jalyn SHANE, Dr. Landry Nurse Practitioner José Miguel JARAMILLO, Dr. Hampton Nurse Practitioner Toni SHANE, Dr. Hanna Attending Physician Jalyn SHANE, Dr. Landry Attending Physician [phone] Toni SHANE, Dr. Hanna Nurse Practitioner Ana JARAMILLO, Dr. Moon Nurse Practitioner Cynthia Tom Attending Physician Cynthia Tom Referring Provider John Damian Attending Unavailable Perez, Red Referring Unavailable Perez, Red Consulting Unavailable Perez, Red Primary Care Unavailable José Miguel, Michaelyaprakas Consulting Unavailable Perez, Red Primary Care Unavailable Tereletsdano, Frantz Admitting Unavailable Radhaeletsdano, Frantz Attending Unavailable Radhaeletsdano, Frantz Consulting Unavailable Jacques Muñoz Attending Unavailable Jacques Muñoz Consulting Unavailable Perez, Red Primary Care Unavailable NIKKI SALAMANCA Consulting Unavailable Perez, Red Referring Unavailable Perez, Red Attending Unavailable Perez, Red Primary Care Unavailable Perez, Red Referring Unavailable Perez, Red Attending Unavailable SibiliaNikolai V Attending Unavailable Sibilia, Nikolai Mon Referring Unavailable Perez, Red Primary Care Unavailable Perez, Red Primary Care Unavailable Prah, Glen Attending Unavailable Prah, Glen Referring Unavailable Perez, Red Primary Care Unavailable Yamila Stein Attending Unavailable Perez, Red Attending Unavailable Perez, Red Primary Care Unavailable Perez, Red Primary Care Unavailable Cynthia Tom Attending Unavailable Cynthia Tom Referring Unavailable Jacques Muñoz Consulting Unavailable Perez, Red Consulting Unavailable Perez, Red Primary Care Unavailable Perez, Red Attending Unavailable Perez, Red Primary Care Unavailable Perez, Red Referring Unavailable Perez, Red Attending Unavailable José Miguel, Memo Consulting Unavailable Jacques Muñoz Attending Unavailable Perez, Red Primary Care Unavailable Tereletsdano, Frantz Admitting Unavailable Tereletsdano, Frantz Consulting Unavailable PrahGlen Attending Unavailable PrahGlen Referring Unavailable Perez, Red Primary Care Unavailable Perez, Red Primary Care Unavailable Perez, Red Referring Unavailable Perez, Red Attending Unavailable SibiliaNikolai V Attending Unavailable Sibilia, Nikolai Mon Referring Unavailable Perez, Red Primary Care Unavailable Perez, Red Attending Unavailable Perez, Red Primary Care Unavailable Peerz, Red Primary Care Unavailable [facility] Enrique OSCAR Attending Unavailable Perez, Red Referring Unavailable Perez, Red Attending Unavailable Prah, Glen Consulting Unavailable Ana, Red Referring Unavailable Perez, Red Primary Care Unavailable Prarito, Glen Attending Unavailable Perez, Red Referring Unavailable Perez, Red Primary Care Unavailable Perez, Red Primary Care Unavailable Perez, Red Referring Unavailable Prarito, Glen Attending Unavailable Prarito, Glen Attending Unavailable Perez, [...] sources) Serotonin-3 Receptor Antagonist Start: 08-31-2025 Start: 10-17-2025 take 1 tablet by mouth three t [...] sources) Syncope; Translations: [Syncope and collapse] Onset: 09-04-2025 Episodic Unclassified (1 source) In 2 weeks [...] Test Name Value Interpretation Reference Range Facility ABD Limited w/ Elastographyo n 09-24-2025 ABD Limited w/ Elastography [facility] [address], [place] [id number] ABD Limited w/ Elastography MR#: [id number] Acct: [id number] Name: HEIDI ANDREWS Rep #: [id number] : 1970 F 55 From: Russ davila MD PCP: Dr. Red Perez MD Status: [facility] CLI Study: ABD Limited w/ Elastography Date of Exam: 09/15 Exam# [id number] Ordering Dr: Glen Chapman MD PROCEDURE: ABD LIMITED W/ ELASTOGRAPHY REASON FOR EXAM: ANEMIA, GENERAL WEAKNESS COMPARISON: None. TECHNIQUE: Procedure Code: USABDLELPARO Modality: US Procedure: ABD LIMITED W/ ELASTOGRAPHY Right upper quadrant abdominal ultrasound. [facility] Elast[facility] shear wave elastography for non- invasive assessment of liver tissue stiffness. [facility] EPIQ Elite. FINDINGS: LIVER: Size: Enlarged (hepatomegaly) Length: 20.1 cm Echotexture: Diffusely echogenic suggesting fatty infiltration Contour: Normal Lesions: None identified Elastography: EQI Med: 6.0 kPa EQI Med Dung: 1.4 m/s IQR/Med: 16.3 %* GALLBLADDER: Multiple echogenic gallstones are identified. COMMON BILE DUCT: Normal measuring 6 mm . PANCREAS: Visualized portions are unremarkable. The distal body and tail are obscured by bowel gas. Visualized portions of the right kidney are unremarkable. No right upper quadrant ascites. US/ABD Limited w/ Elastography IMPRESSION: Mild hepatic fibrosis. Fatty infiltration of the liver. Multiple gallstones. Reference Values: SRU <1.37 m/s (5.7kPa): No to mild fibrosis 1.37 m/s - 2.2 m/s: Moderate to severe fibrosis >2.2 m/s (15kPa): Significant fibrosis / cirrhosis METAVIR Score F2 or higher: 1.34 m/s (5.7kPa) F3 or higher: 1.55 m/s (7.3kPa) F4: 1.80 m/s (10kPa) * If the IQR/Med is >30%, the variance in the measurements is a large and the accuracy of the measurement may be in question. Reading Location: [place] [address] CC: Dr. Glen Chapman MD; Dr. 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 RECORD# NUMBER DATE DATE TYPE DARRYL [id number] F 55 09/11/25 09/11/25 2 HEIDI Hernandez [id number] ROOM: [facility] DATE OF : 1970 DICTATING PHYSICIAN: Jem Javier DATE OF SURGERY: September 11, 2025 SURGEON: Jem Javier MD EXTENSION DIVISION DIRECTOR: Cynthia Ruiz PA-C ANESTHESIOLOGIST: Rigo Remy DO ANESTHETIC: [...] screw on the Page 1 of 3 DARRYL HEIDI David Operative Report HEIDI ANDREWS : 1970 device. This stabilized the ankle nicely through full range of motion, and with testing of the syndesmosis there was nice stability noted. training assistant/physician pastry assistant was helping throughout the entire procedure. She [...] wound closure, and patient transfer. Without the hand frame surgical elastic knitter and her expertise, surgical time would have [...] was reduced with the help of the pastry assistant, who was pulling traction on the leg [...] between t (more content not included)... Normal [facility] Absolute lymphocyte countOrd ered By: Red Perez on 09-14-2025 Lymphocytes Auto (Unsp spec) [#/Vol] 0.79 10*3/uL Low 0.83-4.51 [facility] Automated lymphocyte count a s percentage of total leukocytesOrdered By: Red Perez on 09-14-2025 Lymphocytes/100 WBC Auto (Unsp spec) 15.4 % Low 19-41 [facility] Basophil percentageOrdered B y: Red Perez on 09-14-2025 Basophils/100 WBC (Bld) 0.2 % 0-1 W [facility] Blood polychromasia detectio n by light microscopyOrdered By: Red Perez on 09-14-2025 Polychromasia LM Ql (Bld) 1+ [facility] Blood spherocyte detection b y light microscopyOrdered By: Red Perez on 09-14-2025 Spherocytes LM Ql (Bld) 1+ High W [facility] CBC W/Diff, Automatedon 08-17 Anisocytosis Ql (Bld) 2+ Normal [facility] Comment on above: Performed By: #### L 503.0106, L500.4050, L501.1400, L400.0001, L503.6030, L3000.0800, L100.9950, L3890.6006, L501.5101, L100.0100, L504.2610, L501.5200, L506.0200, L3410.9992, L101.9900, L3100.1350, L3200.1200, L503.6550, L3200.0500, L501.6710 #### [facility] [address] [place], [address] POLYCHROMASIA 1+ Normal [facility] Comment on above: Performed By: #### L 503.0106, L500.4050, L501.1400, L400.0001, L503.6030, L3000.0800, L100.9950, L3890.6006, L501.5101, L100.0100, L504.2610, L501.5200, L506.0200, L3410.9992, L101.9900, L3100.1350, L3200.1200, L503.6550, L3200.0500, L501.6710 #### [facility] [address] [place], [place], [id number] SPHEROCYTE 1+ Abnormal [facility] Comment on above: Performed By: #### L 503.0106, L500.4050, L501.1400, L400.0001, L503.6030, L3000.0800, L100.9950, L3890.6006, L501.5101, L100.0100, L504.2610, L501.5200, L506.0200, L3410.9992, L101.9900, L3100.1350, L3200.1200, L503.6550, L3200.0500, L501.6710 #### [facility] [address] [place], [place], [id number] Eosinophil percentageOrdered By: Red Perez on 09-14-2025 Eosinophils/100 WBC (Bld) 3.3 % 0-5 [facility] Erythrocyte distribution wid th ratioOrdered By: Red Perez on 09-14-2025 Erythrocyte distribution width (RBC) [Ratio] 21.7 % High 11.6-14.6 [facility] Erythrocyte distribution wid th standard deviationOrdered By: Red Perez on 09-14-2025 Erythrocyte distribution width (RBC) [Ratio] 67.2 fl High 35.1-43.9 [facility] Hematocrit Auto (Bld) [Volum e fraction]Ordered By: Red Perez on 09-14-2025 Hematocrit (Bld) [Volume fraction] 28.0 % Low 37-47 [facility] Hemoglobin measurementOrdere d By: Red Perez on 09-14-2025 Hemoglobin (Bld) [Mass/Vol] 8.3 g/dL Low 12.0-15. 0 [facility] Immature granulocytes/100 WB C Auto (Bld)Ordered By: Red Perez on 09-14-2025 Immature granulocytes/100 WBC (Bld) 1.400 % High 0.0-0.9 [facility] MCV (mean corpuscular volume ) determinationOrdered By: Red Perez on 09-14-2025 MCV (RBC) [Entitic vol] 91.2 fL 81-99 W [facility] Mean corpuscular hemoglobin (MCH) determinationOrdered By: Red Perez on 09-14-2025 MCH (RBC) [Entitic mass] 27.0 pg 27.0-32.0 [facility] Monocyte percentageOrdered B y: Red Perez on 09-14-2025 Monocytes/100 WBC (Bld) 5.7 % 0-10 W [facility] Neutrophil percentageOrdered By: Rde Perez on 09-14-2025 Neutrophils/100 WBC (Bld) 74.0 % High 47-70 [facility] No Panel InformationOrdered By: Red Perez on 09-14-2025 2+ [facility] Platelet countOrdered By: Yousuf Perez on 09-14-2025 Platelets (Bld) [#/Vol] 355 10*3/uL 150-450 [facility] RBC Auto (Bld) [#/Vol]Ordere d By: Red Perez on 09-14-2025 RBC (Bld) [#/Vol] 3.07 10*6/uL Low 4.2-5.4 [facility] White blood cell (WBC) count Ordered By: Red Perez on 09-14-2025 WBC (Bld) [#/Vol] 5.1 10*3/uL 4.4-11.0 [facility] C-ARM USAGE 1 HOURon 025 C-ARM USAGE [address] ? [place], [place] [address] ? Patient: HEIDI ANDREWS Phone#: : 1970 Age: 55 Gender: F Pt. Type: Out Account: [id number] Location: [facility] Ordering: JEM JAVIER Exam Date: 09/11/2025/11:51 Family Phys: Charge Code: 993506 Physician: [place] Order #: [id number] Dose#: 3.21 mGy PROCEDURE: C-ARM USEAGE 1 [...] Zamora MD on 09/11/2025 at 16:53 Normal [facility] Anion gap in Serum or Plasma Ordered By: Jacques Muñoz on 09-07-2025 Anion gap [Moles/Vol] 16 mmol/L High 5-15 [facility] BUN/creatinine ratioOrdered By: Jacques Muñoz on 09-07-2025 Urea nitrogen/Creatinine [Mass ratio] 10.4 mg/mg 10- [facility] Basic Metabolic Profile (BMP )on 09-07-2025 BUN/CRE 10.4 RATIO Normal - [facility] Comment on above: Order Comment: DR. Seng COOL ALSO ORDERED BMPBREANNE SARA ORDERED A1C Performed By: #### L 503.0106, L500.4050, L501.1400, L400.0001, L503.6030, L3000.0800, L100.9950, L3890.6006, L501.5101, L100.0100, L504.2610, L501.5200, L506.0200, L3410.9992, L101.9900, L3100.1350, L3200.1200, L503.6550, L3200.0500, L501.6710 #### [facility] [address] [facility] [place], [address] Calcium [Mass/Vol] 9.2 mg/dL Normal 7.6-11.0 [facility] Comment on above: Order Comment: DR. Seng COOL ALSO ORDERED BMPBREANNE SARA ORDERED A1C Performed By: #### L 503.0106, L500.4050, L501.1400, L400.0001, L503.6030, L3000.0800, L100.9950, L3890.6006, L501.5101, L100.0100, L504.2610, L501.5200, L506.0200, L3410.9992, L101.9900, L3100.1350, L3200.1200, L503.6550, L3200.0500, L501.6710 #### [facility] [address] [place], [address] Chloride [Moles/Vol] 103 mmol/L Normal 98-108 [facility] Comment on above: Order Comment: DR. Seng COOL ALSO ORDERED BMPBREANNE SARA ORDERED A1C Performed By: #### L 503.0106, L500.4050, L501.1400, L400.0001, L503.6030, L3000.0800, L100.9950, L3890.6006, L501.5101, L100.0100, L504.2610, L501.5200, L506.0200, L3410.9992, L101.9900, L3100.1350, L3200.1200, L503.6550, L3200.0500, L501.6710 #### [facility] [address] [place], [address] CO2 [Moles/Vol] 20.8 mmol/L Low 21.0-32.0 [facility] Comment on above: Order Comment: DR. Seng COOL ALSO ORDERED BMPBREANNE SARA ORDERED A1C Performed By: #### L 503.0106, L500.4050, L501.1400, L400.0001, L503.6030, L3000.0800, L100.9950, L3890.6006, L501.5101, L100.0100, L504.2610, L501.5200, L506.0200, L3410.9992, L101.9900, L3100.1350, L3200.1200, L503.6550, L3200.0500, L501.6710 #### [facility] [address] [place], [address] Creatinine [Mass/Vol] 1.14 mg/dL Normal 0.70-1.20 [facility] Comment on above: Order Comment: DR. Segn COOL ALSO ORDERED BMPBREANNE SARA ORDERED A1C Performed By: #### L 503.0106, L500.4050, L501.1400, L400.0001, L503.6030, L3000.0800, L100.9950, L3890.6006, L501.5101, L100.0100, L504.2610, L501.5200, L506.0200, L3410.9992, L101.9900, L3100.1350, L3200.1200, L503.6550, L3200.0500, L501.6710 #### [facility] [address] [facility]. [place], [place], [id number] GAP 16 High 5-15 [facility] Comment on above: Order Comment: DR. Seng COOL ALSO ORDERED BMPBREANNE SARA ORDERED A1C Performed By: #### L 503.0106, L500.4050, L501.1400, L400.0001, L503.6030, L3000.0800, L100.9950, L3890.6006, L501.5101, L100.0100, L504.2610, L501.5200, L506.0200, L3410.9992, L101.9900, L3100.1350, L3200.1200, L503.6550, L3200.0500, L501.6710 #### [facility] [address] [place], [address] GFR/1.73 sq M.predicted among non-blacks MDRD (S/P/Bld) [Vol rate/Area] 58 mL/min/{1.73_m2} Low >60 [facility] Comment on above: Order Comment: DR. Seng COOL ALSO ORDERED BMPBREANNE SARA ORDERED A1C Result Comment: mL/m in/1.73m2 CKD-EPI Creatinine Equation (2020) Performed By: #### L 503.0106, L500.4050, L501.1400, L400.0001, L503.6030, L3000.0800, L100.9950, L3890.6006, L501.5101, L100.0100, L504.2610, L501.5200, L506.0200, L3410.9992, L101.9900, L3100.1350, L3200.1200, L503.6550, L3200.0500, L501.6710 #### [facility] [address], [place], [id number] Glucose [Mass/Vol] 135 mg/dL High 70-99 [facility] Comment on above: Order Comment: DR. Seng COOL ALSO ORDERED BMPBREANNE SARA ORDERED A1C Performed By: #### L 503.0106, L500.4050, L501.1400, L400.0001, L503.6030, L3000.0800, L100.9950, L3890.6006, L501.5101, L100.0100, L504.2610, L501.5200, L506.0200, L3410.9992, L101.9900, L3100.1350, L3200.1200, L503.6550, L3200.0500, L501.6710 #### [facility] [address] [place], [place], [id number] (206) Potassium [Moles/Vol] 4.2 mmol/L Normal 3.3-5.1 [facility] Comment on above: Order Comment: DR. Seng COOL ALSO ORDERED BMPBREANNE SARA ORDERED A1C Performed By: #### L 503.0106, L500.4050, L501.1400, L400.0001, L503.6030, L3000.0800, L100.9950, L3890.6006, L501.5101, L100.0100, L504.2610, L501.5200, L506.0200, L3410.9992, L101.9900, L3100.1350, L3200.1200, L503.6550, L3200.0500, L501.6710 #### [facility] [address] [place], [place], [id number] (205) Sodium [Moles/Vol] 140 mmol/L Normal 133-145 [facility] Comment on above: Order Comment: DR. Seng COOL ALSO ORDERED BMPBREANNE SARA ORDERED A1C Performed By: #### L 503.0106, L500.4050, L501.1400, L400.0001, L503.6030, L3000.0800, L100.9950, L3890.6006, L501.5101, L100.0100, L504.2610, L501.5200, L506.0200, L3410.9992, L101.9900, L3100.1350, L3200.1200, L503.6550, L3200.0500, L501.6710 #### [facility] [address], [place], [id number] Urea nitrogen [Mass/Vol] 12 mg/dL Normal 4-19 [facility] Comment on above: Order Comment: DR. Seng COOL ALSO ORDERED DOMINICK RUIZ ORDERED A1C Performed By: #### L 503.0106, L500.4050, L501.1400, L400.0001, L503.6030, L3000.0800, L100.9950, L3890.6006, L501.5101, L100.0100, L504.2610, L501.5200, L506.0200, L3410.9992, L101.9900, L3100.1350, L3200.1200, L503.6550, L3200.0500, L501.6710 #### [facility] [address], [place], [id number] Carbon dioxide, total [Moles /volume] in Central venous bloodOrdered By: Jacques Muñoz on 09-07-2025 CO2 [Moles/Vol] 20.8 mmol/L Low 21.0-32.0 [facility] Chloride assayOrdered By: Nicanor Muñoz on 09-07-2025 Chloride [Moles/Vol] 103 mmol/L 98-108 [facility] Glomerular filtration rate ( GFR) estimation/1.73 sq m using serum, plasma, or whole bOrdered By: Jacques Muñoz on 09-07-2025 GFR/1.73 sq M.predicted among non-blacks MDRD (S/P/Bld) [Vol rate/Area] 58 mL/min/{1.73_m2} Low >60 [facility] Comment on above: mL/min/1.73m2 CKD-EP I Creatinine Equation (2020) Hemoglobin A1con 09-07-2025 HbA1c (Bld) [Mass fraction] 7.9 % High <=5.6 [facility] Comment on above: Order Comment: DR. N IELSEN ALSO ORDERED BMPBREANNE SARA ORDERED A1C Result Comment: Norm al < 5.7 % Prediabetic 5.7 - 6.4 % Diabetic >or= 6.5 % Please note range changes. Performed By: #### L 503.0106, L500.4050, L501.1400, L400.0001, L503.6030, L3000.0800, L100.9950, L3890.6006, L501.5101, L100.0100, L504.2610, L501.5200, L506.0200, L3410.9992, L101.9900, L3100.1350, L3200.1200, L503.6550, L3200.0500, L501.6710 #### [facility] [address] [place], [address] Hemoglobin A1c percentageOrd ered By: Jacques Muñoz on 09-07-2025 HbA1c (Bld) [Mass fraction] 7.9 % High <5.7 [facility] Comment on above: Normal < 5.7 % Predi abetic 5.7 - 6.4 % Diabetic >or= 6.5 % Please note range changes. Potassium measurement (mass/ volume)Ordered By: Jacques Muñoz on 09-07-2025 Potassium (Unsp spec) [Mass/Vol] 4.2 mmol/L 3.3-5.1 [facility] Serum creatinine measurement (mass/volume)Ordered By: Jacques Muñoz on 09-07-2025 Creatinine [Mass/Vol] 1.14 mg/dL 0.70-1.20 [facility] Serum glucose measurement (m ass/volume)Ordered By: Jacques Muñoz on 09-07-2025 Glucose [Mass/Vol] 135 mg/dL High 70-99 [facility] Serum or plasma calcium sandy urement (mass/volume)Ordered By: Jacques Muñoz on 09-07-2025 Calcium [Mass/Vol] 9.2 mg/dL 7.6-11.0 [facility] Serum or plasma urea nitroge n measurement (mass/volume)Ordered By: Jacques Muñoz on 09-07-2025 Urea nitrogen [Mass/Vol] 12 mg/dL 4-19 [facility] Sodium levelOrdered By: Misael Muñoz on 09-07-2025 Sodium [Moles/Vol] 140 mmol/L 133-145 [facility] ANCAon 09-04-2025 Atypical pANCA <1:20 Normal Neg:<1:20 [facility] Comment on above: Result Comment: The atypical pANCA pattern has been observed in a significant percentage of patients with ulcerative colitis, primary sclerosing cholangitis and autoimmune hepatitis. Performed By: #### L 503.0106, L500.4050, L501.1400, L400.0001, L503.6030, L3000.0800, L100.9950, L3890.6006, L501.5101, L100.0100, L504.2610, L501.5200, L506.0200, L3410.9992, L101.9900, L3100.1350, L3200.1200, L503.6550, L3200.0500, L501.6710 #### [facility] [address] [place], [address] Cytoplasmic Ab <1:20 Normal Neg:<1:20 [facility] Comment on above: Performed By: #### L 503.0106, L500.4050, L501.1400, L400.0001, L503.6030, L3000.0800, L100.9950, L3890.6006, L501.5101, L100.0100, L504.2610, L501.5200, L506.0200, L3410.9992, L101.9900, L3100.1350, L3200.1200, L503.6550, L3200.0500, L501.6710 #### [facility] [address] [facility] [place], [address] Perinuclear Ab. <1:20 Normal Neg:<1:20 [facility] Comment on above: Result Comment: The presence of positive fluorescence exhibiting P-ANCA or C-ANCA patterns alone is not specific for the diagnosis of Lolis's Granulomatosis (WG) or microscopic polyangiitis. Decisions about treatment should not be based solely on ANCA IFA results. The International ANCA Group Consensus recommends follow up testing of positive sera with both IN- 3 and MPO-ANCA enzyme immunoassays. As many as 5% serum samples are positive only by EIA. Ref. AM J Clin Pathol 1999;111:507-513. Performed By: #### L 503.0106, L500.4050, L501.1400, L400.0001, L503.6030, L3000.0800, L100.9950, L3890.6006, L501.5101, L100.0100, L504.2610, L501.5200, L506.0200, L3410.9992, L101.9900, L3100.1350, L3200.1200, L503.6550, L3200.0500, L501.6710 #### [facility] [address] [facility] [place], [address] Anti-Glomerular Basement Mem bon 09-04-2025 ANTI-GLOM BM Ab < 0.2 Normal 0.0-0.9 [facility] Comment on above: Result Comment: Perf ormed at: [place] [facility] [id number] [employer] We[employer]: Preston Ashley PhD, Phone: [phone] Performed at: [facility] [address] [id number] [employer]: Lauren Hendricks MD, Phone: [phone] Performed By: #### L 503.0106, L500.4050, L501.1400, L400.0001, L503.6030, L3000.0800, L100.9950, L3890.6006, L501.5101, L100.0100, L504.2610, L501.5200, L506.0200, L3410.9992, L101.9900, L3100.1350, L3200.1200, L503.6550, L3200.0500, L501.6710 #### [facility] [address] [facility] [place], [address] Anti-dsDNA Abon 09-04-2025 ANTI-DNA (DS)AB <1 Normal 0-9 [facility] Comment on above: Result Comment: Nega tive <5 Equivocal 5 - 9 Positive >9 Performed at: [address] [id number] [employer]: Preston Ashley PhD, Phone: [phone] Performed By: #### L 503.0106, L500.4050, L501.1400, L400.0001, L503.6030, L3000.0800, L100.9950, L3890.6006, L501.5101, L100.0100, L504.2610, L501.5200, L506.0200, L3410.9992, L101.9900, L3100.1350, L3200.1200, L503.6550, L3200.0500, L501.6710 #### [facility] [address] [place], [place], [id number] Complement C3on 09-04-2025 COMP C3 151 mg/dL Normal 82-167 [facility] Comment on above: Performed By: #### L 503.0106, L500.4050, L501.1400, L400.0001, L503.6030, L3000.0800, L100.9950, L3890.6006, L501.5101, L100.0100, L504.2610, L501.5200, L506.0200, L3410.9992, L101.9900, L3100.1350, L3200.1200, L503.6550, L3200.0500, L501.6710 #### [facility] [address] [place], [place], [id number] [place] Lambda Light Chainson 09-04-2025 FR KAPPA LT CHN 20.9 mg/L Abnormal 3.3-19.4 [facility] Comment on above: Performed By: #### L 503.0106, L500.4050, L501.1400, L400.0001, L503.6030, L3000.0800, L100.9950, L3890.6006, L501.5101, L100.0100, L504.2610, L501.5200, L506.0200, L3410.9992, L101.9900, L3100.1350, L3200.1200, L503.6550, L3200.0500, L501.6710 #### [facility] [address] [place], [place], [address] FR LAMBDA LT CH 15.5 mg/L Normal 5.7-26.3 [facility] Comment on above: Performed By: #### L 503.0106, L500.4050, L501.1400, L400.0001, L503.6030, L3000.0800, L100.9950, L3890.6006, L501.5101, L100.0100, L504.2610, L501.5200, L506.0200, L3410.9992, L101.9900, L3100.1350, L3200.1200, L503.6550, L3200.0500, L501.6710 #### [facility] [address] [place], [address] KAPPA/LAMBDA % 1.35 Normal 0.26-1.65 [facility] Comment on above: Performed By: #### L 503.0106, L500.4050, L501.1400, L400.0001, L503.6030, L3000.0800, L100.9950, L3890.6006, L501.5101, L100.0100, L504.2610, L501.5200, L506.0200, L3410.9992, L101.9900, L3100.1350, L3200.1200, L503.6550, L3200.0500, L501.6710 #### [facility] [address] [place], [place], [address] Anion gap in Serum or Plasma Ordered By: Frantz Gunderson on 09-03-2025 Anion gap [Moles/Vol] 12 mmol/L - [facility] BUN/creatinine ratioOrdered By: Frantz Gunderson on 09-03-2025 Urea nitrogen/Creatinine [Mass ratio] 8.2 mg/mg Low 09-03 [facility] Basic Metabolic Profile (BMP )on 09-03-2025 BUN/CRE 8.2 RATIO Low 09-03 [facility] Comment on above: Performed By: #### L 503.6005 #### [facility] [address] [place], [address] Calcium [Mass/Vol] 8.7 mg/dL Normal 7.6-11.0 [facility] Comment on above: Performed By: #### L 503.6005 #### [facility] [address] [place], [address] Chloride [Moles/Vol] 105 mmol/L Normal 98-108 [facility] Comment on above: Performed By: #### L 503.6005 #### [facility] [address] [place], [address] CO2 [Moles/Vol] 19.3 mmol/L Low 21.0-32.0 [facility] Comment on above: Performed By: #### L 503.6005 #### [facility] [address] [place], [address] Creatinine [Mass/Vol] 1.04 mg/dL Normal 0.70-1.20 [facility] Comment on above: Performed By: #### L 503.6005 #### [facility] [address] [place], [address] ECRCL 72.27 ml/min Normal 50-250 [facility] Comment on above: Performed By: #### L 503.6005 #### [facility] [address] [place], [address] GAP 12 Normal - [facility] Comment on above: Performed By: #### L 503.6005 #### [facility] [address] [place], [address] GFR/1.73 sq M.predicted among non-blacks MDRD (S/P/Bld) [Vol rate/Area] 64 mL/min/{1.73_m2} Normal >60 [facility] Comment on above: Result Comment: mL/m in/1.73m2 CKD-EPI Creatinine Equation (2020) Performed By: #### L 503.6005 #### [facility] [address] [place], [address] Glucose [Mass/Vol] 116 mg/dL High 70-99 [facility] Comment on above: Performed By: #### L 503.6005 #### [facility] [address] [place], [address] Potassium [Moles/Vol] 3.3 mmol/L Normal 3.3-5.1 [facility] Comment on above: Performed By: #### L 503.6005 #### [facility] [address] [place], [address] Sodium [Moles/Vol] 137 mmol/L Normal 133-145 [facility] Comment on above: Performed By: #### L 503.6005 #### [facility] [address] [place], [address] Urea nitrogen [Mass/Vol] 8 mg/dL Normal 4-19 [facility] Comment on above: Performed By: #### L 503.6005 #### [facility] [address] [place], [address] Bedside Glucoseon 09-03-2025 FINGERSTICK GLU 140 mg/dL High 74-106 [facility] Comment on above: Result Comment: DARÍO CORNELIO OF PATIENT CARE PER NURSING PROTOCOL Performed By: #### L 503.0106, L500.4050, L501.1400, L400.0001, L503.6030, L3000.0800, L100.9950, L3890.6006, L501.5101, L100.0100, L504.2610, L501.5200, L506.0200, L3410.9992, L101.9900, L3100.1350, L3200.1200, L503.6550, L3200.0500, L501.6710 #### [facility] [address] [place], [place], [address] FINGERSTICK GLU 110 mg/dL High 74-106 [facility] Comment on above: Result Comment: DARÍO GRIMES OF PATIENT CARE PER NURSING PROTOCOL Performed By: #### L 503.0106, L500.4050, L501.1400, L400.0001, L503.6030, L3000.0800, L100.9950, L3890.6006, L501.5101, L100.0100, L504.2610, L501.5200, L506.0200, L3410.9992, L101.9900, L3100.1350, L3200.1200, L503.6550, L3200.0500, L501.6710 #### [facility] [address] [facility] [address] [place], [place], [id number] Carbon dioxide, total [Moles /volume] in Central venous bloodOrdered By: Frantz Gunderson on 09-03-2025 CO2 [Moles/Vol] 19.3 mmol/L Low 21.0-32.0 [facility] Chloride assayOrdered By: Maria Eugenia Gunderson on 09-03-2025 Chloride [Moles/Vol] 105 mmol/L 98-108 [facility] Discharge Instructionon 08-16 Discharge Instruction [facility] Medical Records Department [address] [place] [address] Instructions for Home/Discharge Instructions 09/03/25 1228 MR#: [id number] Acct: [id number] Name: HEIDI ANDREWS Rep #: [id number] : 1970 55 From: Jacques Muñoz DO [...] Profile (BMP) (Routine) Timeframe: 3 Days Facility: [facility] - Location: Laboratory Ordered By: Dr. Jacques [...] DO; Dr. Red Perez MD Signed Normal [facility] Electrocardiogram reportOrde red By: Caleb Mendiola on 09-03-2025 EKG study [facility] Other Phone: EKG study [facility] Other Phone: Glomerular filtration rate ( GFR) estimation/1.73 sq m using serum, plasma, or whole bOrdered By: Frantz Gunderson on 09-03-2025 GFR/1.73 sq M.predicted among non-blacks MDRD (S/P/Bld) [Vol rate/Area] 64 mL/min/{1.73_m2} >60 [facility] Comment on above: mL/min/1.73m2 CKD-EP I Creatinine Equation (2020) Glucose measurement at bedsi deOrdered By: Jacques Muñoz on 09-03-2025 Glucose [Mass/Vol] 140 mg/dL High 74-106 [facility] Comment on above: MANAGEMENT OF PATIEN T CARE PER NURSING PROTOCOL Potassium measurement (mass/ volume)Ordered By: Frantz Gunderson on 09-03-2025 Potassium (Unsp spec) [Mass/Vol] 3.3 mmol/L 3.3-5.1 [facility] Serum creatinine measurement (mass/volume)Ordered By: Franzt Gunderson on 09-03-2025 Creatinine [Mass/Vol] 1.04 mg/dL 0.70-1.20 [facility] Serum glucose measurement (m ass/volume)Ordered By: Frantz Gunderson on 09-03-2025 Glucose [Mass/Vol] 116 mg/dL High 70-99 [facility] Serum or plasma calcium sandy urement (mass/volume)Ordered By: Frantz Gunderson on 09-03-2025 Calcium [Mass/Vol] 8.7 mg/dL 7.6-11.0 [facility] Serum or plasma urea nitroge n measurement (mass/volume)Ordered By: Frantz Gunderson on 09-03-2025 Urea nitrogen [Mass/Vol] 8 mg/dL 4-19 [facility] Sodium levelOrdered By: Frantz Gunderson on 09-03-2025 Sodium [Moles/Vol] 137 mmol/L 133-145 [facility] ANCAon 09-02-2025 Cytoplasmic Ab Normal Neg:<1:20 [facility] Comment on above: Result Comment: PUTT ING ALL ORDERS (R1,R2,R3,R4,IO1) ON SAME ORDER Performed By: #### L 503.0106, L500.4050, L501.1400, L400.0001, L503.6030, L3000.0800, L100.9950, L3890.6006, L501.5101, L100.0100, L504.2610, L501.5200, L506.0200, L3410.9992, L101.9900, L3100.1350, L3200.1200, L503.6550, L3200.0500, L501.6710 #### [facility] [address] [place], [address] Perinuclear Ab. Normal Neg:<1:20 [facility] Comment on above: Result Comment: PUTT ING ALL ORDERS (R1,R2,R3,R4,IO1) ON SAME ORDER Performed By: #### L 503.0106, L500.4050, L501.1400, L400.0001, L503.6030, L3000.0800, L100.9950, L3890.6006, L501.5101, L100.0100, L504.2610, L501.5200, L506.0200, L3410.9992, L101.9900, L3100.1350, L3200.1200, L503.6550, L3200.0500, L501.6710 #### [facility] [address] [place], [address] Basic Metabolic Profile (BMP )on 09-02-2025 BUN/CRE 16.9 RATIO Normal 09-03 [facility] Comment on above: Performed By: #### L 503.0106, L500.4050, L501.1400, L400.0001, L503.6030, L3000.0800, L100.9950, L3890.6006, L501.5101, L100.0100, L504.2610, L501.5200, L506.0200, L3410.9992, L101.9900, L3100.1350, L3200.1200, L503.6550, L3200.0500, L501.6710 #### [facility] [address] [place], [place], [address] Calcium [Mass/Vol] 8.7 mg/dL Normal 7.6-11.0 [facility] Comment on above: Performed By: #### L 503.0106, L500.4050, L501.1400, L400.0001, L503.6030, L3000.0800, L100.9950, L3890.6006, L501.5101, L100.0100, L504.2610, L501.5200, L506.0200, L3410.9992, L101.9900, L3100.1350, L3200.1200, L503.6550, L3200.0500, L501.6710 #### [facility] [address] [place], [place], [address] (410) Chloride [Moles/Vol] 104 mmol/L Normal 98-108 [facility] Comment on above: Performed By: #### L 503.0106, L500.4050, L501.1400, L400.0001, L503.6030, L3000.0800, L100.9950, L3890.6006, L501.5101, L100.0100, L504.2610, L501.5200, L506.0200, L3410.9992, L101.9900, L3100.1350, L3200.1200, L503.6550, L3200.0500, L501.6710 #### [facility] [address] [place], [place], [id number] (871) CO2 [Moles/Vol] 18.9 mmol/L Low 21.0-32.0 [facility] Comment on above: Performed By: #### L 503.0106, L500.4050, L501.1400, L400.0001, L503.6030, L3000.0800, L100.9950, L3890.6006, L501.5101, L100.0100, L504.2610, L501.5200, L506.0200, L3410.9992, L101.9900, L3100.1350, L3200.1200, L503.6550, L3200.0500, L501.6710 #### [facility] [address] [place], [place], [address] Creatinine [Mass/Vol] 1.34 mg/dL High 0.70-1.20 [facility] Comment on above: Performed By: #### L 503.0106, L500.4050, L501.1400, L400.0001, L503.6030, L3000.0800, L100.9950, L3890.6006, L501.5101, L100.0100, L504.2610, L501.5200, L506.0200, L3410.9992, L101.9900, L3100.1350, L3200.1200, L503.6550, L3200.0500, L501.6710 #### [facility] [address] [place], [place], [id number] (753) ECRCL 56.09 ml/min Normal 50-250 [facility] Comment on above: Performed By: #### L 503.0106, L500.4050, L501.1400, L400.0001, L503.6030, L3000.0800, L100.9950, L3890.6006, L501.5101, L100.0100, L504.2610, L501.5200, L506.0200, L3410.9992, L101.9900, L3100.1350, L3200.1200, L503.6550, L3200.0500, L501.6710 #### [facility] [address] [place], [place], [address] GAP 13 Normal 5-15 [facility] Comment on above: Performed By: #### L 503.0106, L500.4050, L501.1400, L400.0001, L503.6030, L3000.0800, L100.9950, L3890.6006, L501.5101, L100.0100, L504.2610, L501.5200, L506.0200, L3410.9992, L101.9900, L3100.1350, L3200.1200, L503.6550, L3200.0500, L501.6710 #### [facility] [address] [facility] [place], [place], [address] GFR/1.73 sq M.predicted among non-blacks MDRD (S/P/Bld) [Vol rate/Area] 47 mL/min/{1.73_m2} Low >60 [facility] Comment on above: Result Comment: mL/m in/1.73m2 CKD-EPI Creatinine Equation (2020) Performed By: #### L 503.0106, L500.4050, L501.1400, L400.0001, L503.6030, L3000.0800, L100.9950, L3890.6006, L501.5101, L100.0100, L504.2610, L501.5200, L506.0200, L3410.9992, L101.9900, L3100.1350, L3200.1200, L503.6550, L3200.0500, L501.6710 #### [facility] [address] [place], [place], [address] Glucose [Mass/Vol] 106 mg/dL High 70-99 [facility] Comment on above: Performed By: #### L 503.0106, L500.4050, L501.1400, L400.0001, L503.6030, L3000.0800, L100.9950, L3890.6006, L501.5101, L100.0100, L504.2610, L501.5200, L506.0200, L3410.9992, L101.9900, L3100.1350, L3200.1200, L503.6550, L3200.0500, L501.6710 #### [facility] [address] [place], [place], [address] Potassium [Moles/Vol] 3.8 mmol/L Normal 3.3-5.1 [facility] Comment on above: Performed By: #### L 503.0106, L500.4050, L501.1400, L400.0001, L503.6030, L3000.0800, L100.9950, L3890.6006, L501.5101, L100.0100, L504.2610, L501.5200, L506.0200, L3410.9992, L101.9900, L3100.1350, L3200.1200, L503.6550, L3200.0500, L501.6710 #### [facility] [address] [place], [place], [address] Sodium [Moles/Vol] 135 mmol/L Normal 133-145 [facility] Comment on above: Performed By: #### L 503.0106, L500.4050, L501.1400, L400.0001, L503.6030, L3000.0800, L100.9950, L3890.6006, L501.5101, L100.0100, L504.2610, L501.5200, L506.0200, L3410.9992, L101.9900, L3100.1350, L3200.1200, L503.6550, L3200.0500, L501.6710 #### [facility] [address] [place], [place], [address] Urea nitrogen [Mass/Vol] 23 mg/dL High - [facility] Comment on above: Performed By: #### L 503.0106, L500.4050, L501.1400, L400.0001, L503.6030, L3000.0800, L100.9950, L3890.6006, L501.5101, L100.0100, L504.2610, L501.5200, L506.0200, L3410.9992, L101.9900, L3100.1350, L3200.1200, L503.6550, L3200.0500, L501.6710 #### [facility] [address] [facility] [place], [place], [address] Bedside Glucoseon 09-02-2025 FINGERSTICK GLU 152 mg/dL High 74-106 [facility] Comment on above: Result Comment: DARÍO GRIMES OF PATIENT CARE PER NURSING PROTOCOL Performed By: #### L 503.0106, L500.4050, L501.1400, L400.0001, L503.6030, L3000.0800, L100.9950, L3890.6006, L501.5101, L100.0100, L504.2610, L501.5200, L506.0200, L3410.9992, L101.9900, L3100.1350, L3200.1200, L503.6550, L3200.0500, L501.6710 #### [facility] [address] [place], [address] FINGERSTICK GLU 145 mg/dL High 74-106 [facility] Comment on above: Result Comment: DARÍO GEMENT OF PATIENT CARE PER NURSING PROTOCOL Performed By: #### L 503.0106, L500.4050, L501.1400, L400.0001, L503.6030, L3000.0800, L100.9950, L3890.6006, L501.5101, L100.0100, L504.2610, L501.5200, L506.0200, L3410.9992, L101.9900, L3100.1350, L3200.1200, L503.6550, L3200.0500, L501.6710 #### [facility] [address] [place], [address] FINGERSTICK GLU 123 mg/dL High 74-106 [facility] Comment on above: Result Comment: DARÍO GEMENT OF PATIENT CARE PER NURSING PROTOCOL Performed By: #### L 503.0106, L500.4050, L501.1400, L400.0001, L503.6030, L3000.0800, L100.9950, L3890.6006, L501.5101, L100.0100, L504.2610, L501.5200, L506.0200, L3410.9992, L101.9900, L3100.1350, L3200.1200, L503.6550, L3200.0500, L501.6710 #### [facility] [address] [place], [address] FINGERSTICK GLU 123 mg/dL High 74-106 [facility] Comment on above: Result Comment: DARÍO GEMENT OF PATIENT CARE PER NURSING PROTOCOL Performed By: #### L 503.0106, L500.4050, L501.1400, L400.0001, L503.6030, L3000.0800, L100.9950, L3890.6006, L501.5101, L100.0100, L504.2610, L501.5200, L506.0200, L3410.9992, L101.9900, L3100.1350, L3200.1200, L503.6550, L3200.0500, L501.6710 #### [facility] [address] [facility] [place], [address] Discharge Instructionon 08-15 Discharge Instruction [facility] Medical Records Department [address] [place] [address] Instructions for Home/Discharge Instructions 09/02/25 1217 MR#: [id number] Acct: [id number] Name: HEIDI ANDREWS Rep #: [id number] : 1970 55 From: Frantz Gunderson DO [...] placed): Home, Self Care 09/02/25 1224 Frantz Gunderson DO CC: Dr. Memo Valdez MD; Dr. Red Perez MD Signed [facility] Lambda Light Chainson 09-02-2025 FR KAPPA LT CHN [facility] Comment on above: Result Comment: PUTT ING ALL ORDERS (R1,R2,R3,R4,IO1) ON SAME ORDER Performed By: #### L 669.6007 #### [facility] [address] [place], [address] FR LAMBDA LT CH [facility] Comment on above: Result Comment: PUTT ING ALL ORDERS (R1,R2,R3,R4,IO1) ON SAME ORDER Performed By: #### L 935.6005 #### [facility] [address] [place], [address] KAPPA/LAMBDA % Normal [facility] Comment on above: Result Comment: PUTT ING ALL ORDERS (R1,R2,R3,R4,IO1) ON SAME ORDER Performed By: #### L 503.6005 #### [facility] [address] [place], [address] Protein+Creatinine Ratio,Uri neon 09-02-2025 PROT:CRE RATIO 128 mg/g CRE Normal 0-200 [facility] Comment on above: Performed By: #### L 503.0106, L500.4050, L501.1400, L400.0001, L503.6030, L3000.0800, L100.9950, L3890.6006, L501.5101, L100.0100, L504.2610, L501.5200, L506.0200, L3410.9992, L101.9900, L3100.1350, L3200.1200, L503.6550, L3200.0500, L501.6710 #### [facility] [address] [place], [address] Protein (U) [Mass/Vol] 7.1 mg/dL Normal 0.0-12.0 [facility] Comment on above: Performed By: #### L 503.0106, L500.4050, L501.1400, L400.0001, L503.6030, L3000.0800, L100.9950, L3890.6006, L501.5101, L100.0100, L504.2610, L501.5200, L506.0200, L3410.9992, L101.9900, L3100.1350, L3200.1200, L503.6550, L3200.0500, L501.6710 #### [facility] [address] [place], [address] UR CREAT 55.60 mg/dL Normal 28.00-217.00 [facility] Comment on above: Performed By: #### L 503.0106, L500.4050, L501.1400, L400.0001, L503.6030, L3000.0800, L100.9950, L3890.6006, L501.5101, L100.0100, L504.2610, L501.5200, L506.0200, L3410.9992, L101.9900, L3100.1350, L3200.1200, L503.6550, L3200.0500, L501.6710 #### [facility] [place], [address] Random urine creatinine sandy urement (mass/volume)Ordered By: Memo Valdez on 09-02-2025 Creatinine Unsp time (U) [Mass/Vol] 55.60 mg/dL 28.00-217.00 [facility] Serum DNA double strand anti body assay (units/volume)Ordered By: Memo Valdez on 09-02-2025 DNA double strand Ab Qn (S) [IU]/mL 0-9 [facility] Comment on above: Negative <5 Equivoca l 5 - 9 Positive >9Performed at: [facility] [address] [id number] Director: Preston Ashley PhD, Phone: [phone] Serum classic neutrophil cyt oplasmic antibody assay (units/volume)Ordered By: Memo Valdez on 09-02-2025 Neutrophil cytoplasmic Ab.classic Qn (S) <1:20 titer Neg:<1:20 [facility] Serum glomerular basement me mbrane antibody assay (units/volume)Ordered By: Memo Valdez on 09-02-2025 Glomerular basement membrane Ab Qn (S) < 0.2 units 0.0-0.9 [facility] Comment on above: Performed at: [address] [id number] Director: Preston Ashley PhD, Phone: [phone] at: [facility] [id number] [place], [place] [id number] Director: Lauren Hendricks MD, Phone: [phone] Serum immunoglobulin kappa l ight chains/immunoglobulin lambda light chains mass ratioOrdered By: Memo Valdez on 09-02-2025 Immunoglobulin light chains.kappa/Immunoglobulin light chains.lambda (S) [Mass ratio] 1.35 0.26-1.65 [facility] Serum or plasma immunoglobul in kappa light chains measurement (mass/volume)Ordered By: Memo Valdez on 09-02-2025 Immunoglobulin light chains.kappa [Mass/Vol] 20.9 mg/L High 3.3-19.4 [facility] Serum perinuclear neutrophil cytoplasmic antibody titer by immunofluorescenceOrdered By: Memo Valdez on 09-02-2025 Neutrophil cytoplasmic Ab.perinuclear IF (S) [Titer] <1:20 titer Neg:<1:20 [facility] Comment on above: The presence of posi tive fluorescence exhibiting P-ANCA orC-ANCA patterns alone is not specific for the diagnosis ofWegener's Granulomatosis (WG) or microscopic polyangiitis.Decisions about treatment should not be based solely onANCA IFA results. The [employer] ANCA Group Consensusrecommends follow up testing of positive sera with both IN-3 and MPO-ANCA enzyme immunoassays. As many as 5% serumsamples are positive only by EIA. Ref. AM J Clin [id number];111:507-513. Urine protein measurement (m ass/volume)Ordered By: Memo Valdez on 09-02-2025 Protein (U) [Mass/Vol] 7.1 mg/dL 0.0-12.0 [facility] Urine protein/creatinine mas s ratioOrdered By: Memo Valdez on 09-02-2025 Protein/Creatinine (U) [Mass ratio] 128 mg/g CRE 0-200 [facility] Basic Metabolic Profile (BMP )on 09-01-2025 BUN/CRE 17.9 RATIO Normal 09-03 [facility] Comment on above: Performed By: #### L 500.2500 #### [facility] [place], [address] Calcium [Mass/Vol] 8.6 mg/dL Normal 7.6-11.0 [facility] Comment on above: Performed By: #### L 500.2500 #### [facility] [address] [place], [address] Chloride [Moles/Vol] 97 mmol/L Low 98-108 [facility] Comment on above: Performed By: #### L 500.2500 #### [facility] [address] [place], [address] CO2 [Moles/Vol] 17.2 mmol/L Low 21.0-32.0 [facility] Comment on above: Performed By: #### L 500.2500 #### [facility] [address] [place], [address] Creatinine [Mass/Vol] 2.42 mg/dL High 0.70-1.20 [facility] Comment on above: Performed By: #### L 500.2500 #### [facility] [address] [place], [address] ECRCL 31.06 ml/min Low 50-250 [facility] Comment on above: Performed By: #### L 500.2500 #### [facility] [address] [place], [address] GAP 17 High 5-15 [facility] Comment on above: Performed By: #### L 500.2500 #### [facility] [address] [place], [address] GFR/1.73 sq M.predicted among non-blacks MDRD (S/P/Bld) [Vol rate/Area] 23 mL/min/{1.73_m2} Low >60 [facility] Comment on above: Result Comment: mL/m in/1.73m2 CKD-EPI Creatinine Equation (2020) Performed By: #### L 500.2500 #### [facility] [address] [place], [address] Glucose [Mass/Vol] 145 mg/dL High 70-99 [facility] Comment on above: Performed By: #### L 500.2500 #### [facility] [address] [place], [address] Potassium [Moles/Vol] 4.1 mmol/L Normal 3.3-5.1 [facility] Comment on above: Performed By: #### L 500.2500 #### [facility] [address] [place], [address] Sodium [Moles/Vol] 131 mmol/L Low 133-145 [facility] Comment on above: Performed By: #### L 500.2500 #### [facility] [address] [place], [address] Urea nitrogen [Mass/Vol] 43 mg/dL High 4-19 [facility] Comment on above: Performed By: #### L 500.2500 #### [facility] [address] [place], [address] Bedside Glucoseon 09-01-2025 [facility] GLU 156 mg/dL High 74-106 [facility] Comment on above: Result Comment: DARÍO GRIMES OF PATIENT CARE PER NURSING PROTOCOL Performed By: #### L 503.0106, L500.4050, L501.1400, L400.0001, L503.6030, L3000.0800, L100.9950, L3890.6006, L501.5101, L100.0100, L504.2610, L501.5200, L506.0200, L3410.9992, L101.9900, L3100.1350, L3200.1200, L503.6550, L3200.0500, L501.6710 #### [facility] [address] [place], [address] FINGERSTICK GLU 146 mg/dL High 74-106 [facility] Comment on above: Result Comment: DARÍO GEMENT OF PATIENT CARE PER NURSING PROTOCOL Performed By: #### L 503.6005 #### [facility] [address] [place], [place], [address] (762) FINGERSTICK GLU 170 mg/dL High 74-106 [facility] Comment on above: Result Comment: DARÍO GEMENT OF PATIENT CARE PER NURSING PROTOCOL Performed By: #### L 503.0106, L500.4050, L501.1400, L400.0001, L503.6030, L3000.0800, L100.9950, L3890.6006, L501.5101, L100.0100, L504.2610, L501.5200, L506.0200, L3410.9992, L101.9900, L3100.1350, L3200.1200, L503.6550, L3200.0500, L501.6710 #### [facility] [address] [facility] [place], [address] FINGERSTICK GLU 131 mg/dL High 74-106 [facility] Comment on above: Result Comment: DARÍO GEMENT OF PATIENT CARE PER NURSING PROTOCOL Performed By: #### L 503.0106, L500.4050, L501.1400, L400.0001, L503.6030, L3000.0800, L100.9950, L3890.6006, L501.5101, L100.0100, L504.2610, L501.5200, L506.0200, L3410.9992, L101.9900, L3100.1350, L3200.1200, L503.6550, L3200.0500, L501.6710 #### [facility] [address] [facility] [place], [place], [address] [phone] Consultation - Nephrologyon 09-01-2025 Consultation - Nephrology [facility] Medical Records Department [address] [place] [address] Consultation - Nephrology 09/01/25 1652 MR#: [id number] Acct: [id number] Name: HEIDI ANDREWS Rep #: [id number] : 1970 55 From: Memo Valdez MD PCP: Dr. Red Perez MD Status:ADM IN Location: MS3 [id number] Assessment Plan Assessment/Plan (1) JESI (acute kidney [...] increased. currently on IV fluids. no hematuria. [facility] Medical History (Updated 08/31/25 @ 13:40 by [...] own History mg/3 mL) subcutaneous pen injector ([employer]) Held on 08/31/25. Instructions: skipped this week [...] 08/31/25 14:36 SB (Rec: 08/31/25 14:36 SB [id number]) Nutrition Malnutrition Evidence of Yes Malnutrition Exists Malnutrition (severe Acute Illness/Injury ): Evidenced By Suboptimal Energy Intake (Severe),Weight Loss (Severe) (more content not included)... Normal [facility] 12 Lead EKGon 08-31-2025 12 Lead EKG [facility] Cardiovascular Services [address] [place] [address] 12 Lead EKG 08/31/25 1102 MR#: [id number] Acct: [id number] Name: HEIDI ANDREWS Rep #: [id number] : 1970 55 From: Caleb Mendiola MD Attending Dr: Dr. Frantz Gunderson DO Status: A DM IN Ordering Dr: Berlin Wilson DO Date: 08/31/25 [place] [facility] [place] Sex: F C Admitted: 08/31/25 Test Reason : Blood Pressure : */* mmHG Vent. Rate : 72 BPM Atrial Rate : 72 BPM P-R Int : 168 ms QRS Dur : 90 ms QT Int : 418 ms P-R-T Axes : 39 21 52 degrees QTcB Int : 457 ms Normal sinus rhythm Nonspecific ST abnormality Abnormal ECG Confirmed by CALEB MENDIOLA MD ([id number]), editorial assistant GUY CAMPOVERDE ([id number]) on 09/03/2025 6:58:58 AM Referred By: Confirmed By: CALEB MENDIOLA MD 09/03/25 0659 Date Caleb Mendiola MD CC: Dr. Berlin Wilson, DO; Dr. Frantz Gunderson DO; Dr. Red Perez MD Signed Normal [facility] Absolute lymphocyte countOrd ered By: Berlin Wilson on 08-31-2025 Lymphocytes Auto (Unsp spec) [#/Vol] 0.79 10*3/uL Low 0.83-4.51 [facility] Absolute neutrophil countOrd ered By: Berlin Wilson on 08-31-2025 Neutrophils (Bld) [#/Vol] 3.6 10*3/uL 2.0-7.7 [facility] Activated partial thrombopla stin time (aPTT) in platelet poor plasma by coagulation aOrdered By: Berlin Wilson on 08-31-2025 aPTT Coag (PPP) [Time] 27.1 s 24.1-36.2 [facility] Amorphous sediment detection in urine sediment by light microscopyOrdered By: Berlin Wilson on 08-31-2025 Amorphous sediment LM Ql (Urine sed) 1+ [facility] Ankle min 3 Viewson 08-31-20 25 Ankle min 3 Views [facility] Imaging Services [address] [place] [address] Ankle min 3 Views MR#: [id number] Acct: [id number] Name: HEIDI ANDREWS Rep #: [id number] : 1970 F 55 From: Russ davila MD PCP: Dr. Red Perez MD Status: REG ER Study: Ankle min 3 Views Date of Exam: 08/31/25 Exam# [id number] Ordering Dr: Berlin Wilson DO PROCEDURE: ANKLE [...] well as soft tissue swelling. Reading Location: [place] [address] CC: Dr. Berlin Wilson DO; Dr. Red Perez MD [employer]: Signed Normal [facility] Automated lymphocyte count a s percentage of total leukocytesOrdered By: Berlin Wilson on 08-31-2025 Lymphocytes/100 WBC Auto (Unsp spec) 16.0 % Low 19- [facility] Basic Metabolic Profile (BMP )on 08-31-2025 BUN/CRE 15.0 RATIO Normal - [facility] Comment on above: Performed By: #### L 503.0106, L500.4050, L501.1400, L400.0001, L503.6030, L3000.0800, L100.9950, L3890.6006, L501.5101, L100.0100, L504.2610, L501.5200, L506.0200, L3410.9992, L101.9900, L3100.1350, L3200.1200, L503.6550, L3200.0500, L501.6710 #### [facility] [address] [facility] [place], [place], [address] Calcium [Mass/Vol] 10.5 mg/dL Normal 7.6-11.0 [facility] Comment on above: Performed By: #### L 503.0106, L500.4050, L501.1400, L400.0001, L503.6030, L3000.0800, L100.9950, L3890.6006, L501.5101, L100.0100, L504.2610, L501.5200, L506.0200, L3410.9992, L101.9900, L3100.1350, L3200.1200, L503.6550, L3200.0500, L501.6710 #### [facility] [address] [facility] [place], [place], [address] Chloride [Moles/Vol] 86 mmol/L Low 98-108 [facility] Comment on above: Performed By: #### L 503.0106, L500.4050, L501.1400, L400.0001, L503.6030, L3000.0800, L100.9950, L3890.6006, L501.5101, L100.0100, L504.2610, L501.5200, L506.0200, L3410.9992, L101.9900, L3100.1350, L3200.1200, L503.6550, L3200.0500, L501.6710 #### [facility] [address] [facility] [address] [facility] [address] [place], [place], [address] CO2 [Moles/Vol] 17.7 mmol/L Low 21.0-32.0 [facility] Comment on above: Performed By: #### L 503.0106, L500.4050, L501.1400, L400.0001, L503.6030, L3000.0800, L100.9950, L3890.6006, L501.5101, L100.0100, L504.2610, L501.5200, L506.0200, L3410.9992, L101.9900, L3100.1350, L3200.1200, L503.6550, L3200.0500, L501.6710 #### [facility] [address] [facility] [address] [facility] [address] [place], [place], [address] Creatinine [Mass/Vol] 3.10 mg/dL High 0.70-1.20 [facility] Comment on above: Performed By: #### L 503.0106, L500.4050, L501.1400, L400.0001, L503.6030, L3000.0800, L100.9950, L3890.6006, L501.5101, L100.0100, L504.2610, L501.5200, L506.0200, L3410.9992, L101.9900, L3100.1350, L3200.1200, L503.6550, L3200.0500, L501.6710 #### [facility] [address] [place], [place], [address] ECRCL 25.29 ml/min Low 50-250 [facility] Comment on above: Performed By: #### L 503.0106, L500.4050, L501.1400, L400.0001, L503.6030, L3000.0800, L100.9950, L3890.6006, L501.5101, L100.0100, L504.2610, L501.5200, L506.0200, L3410.9992, L101.9900, L3100.1350, L3200.1200, L503.6550, L3200.0500, L501.6710 #### [facility] [address] [place], [address] GAP 25 High 5-15 [facility] Comment on above: Performed By: #### L 503.0106, L500.4050, L501.1400, L400.0001, L503.6030, L3000.0800, L100.9950, L3890.6006, L501.5101, L100.0100, L504.2610, L501.5200, L506.0200, L3410.9992, L101.9900, L3100.1350, L3200.1200, L503.6550, L3200.0500, L501.6710 #### [facility] [address] [place], [place], [address] GFR/1.73 sq M.predicted among non-blacks MDRD (S/P/Bld) [Vol rate/Area] 17 mL/min/{1.73_m2} Low >60 [facility] Comment on above: Result Comment: mL/m in/1.73m2 CKD-EPI Creatinine Equation (2020) Performed By: #### L 503.0106, L500.4050, L501.1400, L400.0001, L503.6030, L3000.0800, L100.9950, L3890.6006, L501.5101, L100.0100, L504.2610, L501.5200, L506.0200, L3410.9992, L101.9900, L3100.1350, L3200.1200, L503.6550, L3200.0500, L501.6710 #### [facility] [address] [place], [place], [phone] (681) Glucose [Mass/Vol] 199 mg/dL High 70-99 [facility] Comment on above: Performed By: #### L 503.0106, L500.4050, L501.1400, L400.0001, L503.6030, L3000.0800, L100.9950, L3890.6006, L501.5101, L100.0100, L504.2610, L501.5200, L506.0200, L3410.9992, L101.9900, L3100.1350, L3200.1200, L503.6550, L3200.0500, L501.6710 #### [facility] [address] [facility] [place], [address] Potassium [Moles/Vol] 3.8 mmol/L Normal 3.3-5.1 [facility] Comment on above: Performed By: #### L 503.0106, L500.4050, L501.1400, L400.0001, L503.6030, L3000.0800, L100.9950, L3890.6006, L501.5101, L100.0100, L504.2610, L501.5200, L506.0200, L3410.9992, L101.9900, L3100.1350, L3200.1200, L503.6550, L3200.0500, L501.6710 #### [facility] [address] [facility] [place], [address] Sodium [Moles/Vol] 129 mmol/L Low 133-145 [facility] Comment on above: Performed By: #### L 503.0106, L500.4050, L501.1400, L400.0001, L503.6030, L3000.0800, L100.9950, L3890.6006, L501.5101, L100.0100, L504.2610, L501.5200, L506.0200, L3410.9992, L101.9900, L3100.1350, L3200.1200, L503.6550, L3200.0500, L501.6710 #### [facility] [address] [place], [address] Urea nitrogen [Mass/Vol] 47 mg/dL High 4-19 [facility] Comment on above: Performed By: #### L 503.0106, L500.4050, L501.1400, L400.0001, L503.6030, L3000.0800, L100.9950, L3890.6006, L501.5101, L100.0100, L504.2610, L501.5200, L506.0200, L3410.9992, L101.9900, L3100.1350, L3200.1200, L503.6550, L3200.0500, L501.6710 #### [facility] [address] [place], [place], [address] Basophil percentageOrdered B y: Berlin Wilson on 08-31-2025 Basophils/100 WBC (Bld) 0.6 % 0-1 [facility] Bedside Glucoseon 08-31-2025 FINGERSTICK GLU 143 mg/dL High 74-106 [facility] Comment on above: Result Comment: DARÍO GRIMES OF PATIENT CARE PER NURSING PROTOCOL Performed By: #### L 503.0106, L500.4050, L501.1400, L400.0001, L503.6030, L3000.0800, L100.9950, L3890.6006, L501.5101, L100.0100, L504.2610, L501.5200, L506.0200, L3410.9992, L101.9900, L3100.1350, L3200.1200, L503.6550, L3200.0500, L501.6710 #### [facility] [address] [place], [place], [address] Bilirubin Test strip Ql (U)O rdered By: Berlin Wilson on 08-31-2025 Bilirubin Ql (U) 3 mg/dL High Negative [facility] Comment on above: COLOR OF URINE MAY A FFECT DIPSTICK RESULTS. Bilirubin directOrdered By: Berlin Wilson on 08-31-2025 Bilirubin.direct [Mass/Vol] 0.33 mg/dL High 0.00-0.3 0 [facility] Bilirubin, totalOrdered By: Berlin Wilson on 08-31-2025 Bilirubin [Mass/Vol] 0.60 mg/dL 0.00-1.30 [facility] Brain/Head without Contrasto n 08-31-2025 Brain/Head without Contrast [facility] Imaging Services [address] [place], [place] [address] Brain/Head without Contrast MR#: [id number] Acct: [id number] Name: HEIDI ANDREWS Rep #: [id number] : 1970 F 55 From: Russ davila MD PCP: Dr. Red Perez MD Status: REG ER Study: Brain/Head without Contrast Date of Exam: 08/15 06/08 Exam# [id number] Ordering Dr: Berlin Wilson DO PROCEDURE: BRAIN/HEAD [...] as well as in the Reading Location: [place] [address] CC: Dr. Berlin Wilson DO; Dr. Red Perez MD [employer]: Signed Normal [facility] CBC W/Diff, Automatedon 08-15 Absolute Lymph 0.79 X10 3/uL Low 0.83-4.51 [facility] Comment on above: Performed By: #### L 503.0106, L500.4050, L501.1400, L400.0001, L503.6030, L3000.0800, L100.9950, L3890.6006, L501.5101, L100.0100, L504.2610, L501.5200, L506.0200, L3410.9992, L101.9900, L3100.1350, L3200.1200, L503.6550, L3200.0500, L501.6710 #### [facility] [address] [place], [place], [id number] Absolute Neut 3.6 X10 3/uL Normal 2.0-7.7 [facility] Comment on above: Performed By: #### L 503.0106, L500.4050, L501.1400, L400.0001, L503.6030, L3000.0800, L100.9950, L3890.6006, L501.5101, L100.0100, L504.2610, L501.5200, L506.0200, L3410.9992, L101.9900, L3100.1350, L3200.1200, L503.6550, L3200.0500, L501.6710 #### [facility] [address] [facility] [place], [place], [phone] (661) Basophils/100 WBC (Bld) 0.6 % Normal 0-1 [facility] Comment on above: Performed By: #### L 503.0106, L500.4050, L501.1400, L400.0001, L503.6030, L3000.0800, L100.9950, L3890.6006, L501.5101, L100.0100, L504.2610, L501.5200, L506.0200, L3410.9992, L101.9900, L3100.1350, L3200.1200, L503.6550, L3200.0500, L501.6710 #### [facility] [address] [place], [place], [phone] (697) Eosinophils/100 WBC (Bld) 3.0 % Normal 0-5 [facility] Comment on above: Performed By: #### L 503.0106, L500.4050, L501.1400, L400.0001, L503.6030, L3000.0800, L100.9950, L3890.6006, L501.5101, L100.0100, L504.2610, L501.5200, L506.0200, L3410.9992, L101.9900, L3100.1350, L3200.1200, L503.6550, L3200.0500, L501.6710 #### [facility] [address] [place], [place], [phone] Erythrocyte distribution width (RBC) [Ratio] 13.8 % Normal 11.6-14.6 [facility] Comment on above: Performed By: #### L 503.0106, L500.4050, L501.1400, L400.0001, L503.6030, L3000.0800, L100.9950, L3890.6006, L501.5101, L100.0100, L504.2610, L501.5200, L506.0200, L3410.9992, L101.9900, L3100.1350, L3200.1200, L503.6550, L3200.0500, L501.6710 #### [facility] [address] [place], [address] Hematocrit (Bld) [Volume fraction] 33.2 % Low 37-47 [facility] Comment on above: Performed By: #### L 503.0106, L500.4050, L501.1400, L400.0001, L503.6030, L3000.0800, L100.9950, L3890.6006, L501.5101, L100.0100, L504.2610, L501.5200, L506.0200, L3410.9992, L101.9900, L3100.1350, L3200.1200, L503.6550, L3200.0500, L501.6710 #### [facility] [address] [facility] [place], [address] Hemoglobin (Bld) [Mass/Vol] 10.9 g/dL Low 12.0-15. 0 [facility] Comment on above: Performed By: #### L 503.0106, L500.4050, L501.1400, L400.0001, L503.6030, L3000.0800, L100.9950, L3890.6006, L501.5101, L100.0100, L504.2610, L501.5200, L506.0200, L3410.9992, L101.9900, L3100.1350, L3200.1200, L503.6550, L3200.0500, L501.6710 #### [facility] [address] [facility] [place], [address] IG% 1.200 High 0.0-0.9 [facility] Comment on above: Result Comment: IG% - Immature Granulocytes (promyelocytes, myelocytes and metamyelocytes) > 1% indicates that a LEFT SHIFT is Present. Performed By: #### L 503.0106, L500.4050, L501.1400, L400.0001, L503.6030, L3000.0800, L100.9950, L3890.6006, L501.5101, L100.0100, L504.2610, L501.5200, L506.0200, L3410.9992, L101.9900, L3100.1350, L3200.1200, L503.6550, L3200.0500, L501.6710 #### [facility] [address] [place], [address] Lymphocytes/100 WBC (Bld) 16.0 % Low 19-41 [facility] Comment on above: Performed By: #### L 503.0106, L500.4050, L501.1400, L400.0001, L503.6030, L3000.0800, L100.9950, L3890.6006, L501.5101, L100.0100, L504.2610, L501.5200, L506.0200, L3410.9992, L101.9900, L3100.1350, L3200.1200, L503.6550, L3200.0500, L501.6710 #### [facility] [address] [place], [address] MCH (RBC) [Entitic mass] 26.5 pg Low 27.0-32.0 [facility] Comment on above: Performed By: #### L 503.0106, L500.4050, L501.1400, L400.0001, L503.6030, L3000.0800, L100.9950, L3890.6006, L501.5101, L100.0100, L504.2610, L501.5200, L506.0200, L3410.9992, L101.9900, L3100.1350, L3200.1200, L503.6550, L3200.0500, L501.6710 #### [facility] [address] [place], [address] MCHC (RBC) [Mass/Vol] 32.8 g/dL Normal 32-36 [facility] Comment on above: Performed By: #### L 503.0106, L500.4050, L501.1400, L400.0001, L503.6030, L3000.0800, L100.9950, L3890.6006, L501.5101, L100.0100, L504.2610, L501.5200, L506.0200, L3410.9992, L101.9900, L3100.1350, L3200.1200, L503.6550, L3200.0500, L501.6710 #### [facility] [address] [place], [place], [phone] MCV (RBC) [Entitic vol] 80.8 fL Low 81-99 [facility] Comment on above: Performed By: #### L 503.0106, L500.4050, L501.1400, L400.0001, L503.6030, L3000.0800, L100.9950, L3890.6006, L501.5101, L100.0100, L504.2610, L501.5200, L506.0200, L3410.9992, L101.9900, L3100.1350, L3200.1200, L503.6550, L3200.0500, L501.6710 #### [facility] [address] [place], [place], [id number] [phone] Monocytes/100 WBC (Bld) 6.7 % Normal 0-10 [facility] Comment on above: Performed By: #### L 503.0106, L500.4050, L501.1400, L400.0001, L503.6030, L3000.0800, L100.9950, L3890.6006, L501.5101, L100.0100, L504.2610, L501.5200, L506.0200, L3410.9992, L101.9900, L3100.1350, L3200.1200, L503.6550, L3200.0500, L501.6710 #### [facility] [address] [facility] [place], [address] Neutrophils/100 WBC (Bld) 72.5 % High 47-70 [facility] Comment on above: Performed By: #### L 503.0106, L500.4050, L501.1400, L400.0001, L503.6030, L3000.0800, L100.9950, L3890.6006, L501.5101, L100.0100, L504.2610, L501.5200, L506.0200, L3410.9992, L101.9900, L3100.1350, L3200.1200, L503.6550, L3200.0500, L501.6710 #### [facility] [address] [facility] [place], [address] Nucleated RBC (Bld) [#/Vol] 0 10*3/uL Normal 0-5 [facility] Comment on above: Performed By: #### L 503.0106, L500.4050, L501.1400, L400.0001, L503.6030, L3000.0800, L100.9950, L3890.6006, L501.5101, L100.0100, L504.2610, L501.5200, L506.0200, L3410.9992, L101.9900, L3100.1350, L3200.1200, L503.6550, L3200.0500, L501.6710 #### [facility] [address] [place], [address] Platelet mean volume (Bld) [Entitic vol] 10.1 fL Normal 6.2-12.0 [facility] Comment on above: Performed By: #### L 503.0106, L500.4050, L501.1400, L400.0001, L503.6030, L3000.0800, L100.9950, L3890.6006, L501.5101, L100.0100, L504.2610, L501.5200, L506.0200, L3410.9992, L101.9900, L3100.1350, L3200.1200, L503.6550, L3200.0500, L501.6710 #### [facility] [address] [place], [place], [id number] (611) Platelets (Bld) [#/Vol] 240 10*3/uL Normal 150-450 [facility] Comment on above: Performed By: #### L 503.0106, L500.4050, L501.1400, L400.0001, L503.6030, L3000.0800, L100.9950, L3890.6006, L501.5101, L100.0100, L504.2610, L501.5200, L506.0200, L3410.9992, L101.9900, L3100.1350, L3200.1200, L503.6550, L3200.0500, L501.6710 #### [facility] [address] [place], [place], [address] RBC (Bld) [#/Vol] 4.11 10*6/uL Low 4.2-5.4 [facility] Comment on above: Performed By: #### L 503.0106, L500.4050, L501.1400, L400.0001, L503.6030, L3000.0800, L100.9950, L3890.6006, L501.5101, L100.0100, L504.2610, L501.5200, L506.0200, L3410.9992, L101.9900, L3100.1350, L3200.1200, L503.6550, L3200.0500, L501.6710 #### [facility] [address] [place], [place], [id number] RDW SD 40.0 fl Normal 35.1-43.9 [facility] Comment on above: Performed By: #### L 503.0106, L500.4050, L501.1400, L400.0001, L503.6030, L3000.0800, L100.9950, L3890.6006, L501.5101, L100.0100, L504.2610, L501.5200, L506.0200, L3410.9992, L101.9900, L3100.1350, L3200.1200, L503.6550, L3200.0500, L501.6710 #### [facility] [address] [facility] [place], [address] WBC (Bld) [#/Vol] 4.9 10*3/uL Normal 4.4-11.0 [facility] Comment on above: Performed By: #### L 503.0106, L500.4050, L501.1400, L400.0001, L503.6030, L3000.0800, L100.9950, L3890.6006, L501.5101, L100.0100, L504.2610, L501.5200, L506.0200, L3410.9992, L101.9900, L3100.1350, L3200.1200, L503.6550, L3200.0500, L501.6710 #### [facility] [address] [facility] [place], [place], [address] Chest 1 Viewon 08-31-2025 Chest 1 View [facility] Imaging Services [address] [place], [place] [address] Chest 1 View MR#: [id number] Acct: [id number] Name: HEIDI ANDREWS Rep #: [id number] : 1970 F 55 From: Russ davila MD PCP: Dr. Red Perez MD Status: REG ER Study: Chest 1 View Date of Exam: 08/31/25 Exam# [id number] Ordering Dr: Berlin Wilson DO PROCEDURE: CHEST [...] No acute abnormality is seen. Reading Location: [place] [address] CC: Dr. Berlin Wilson DO; Dr. Red Perez MD [employer]: Signed Normal [facility] Emergency Department Summary on 08-31-2025 Emergency Department Summary [facility] Medical Records Department [address] [place] [address] Emergency Department Summary 08/31/25 MR#: [id number] Acct: [id number] Name: HEIDI ANDREWS Rep #: [id number] : 1970 55 From: Berlin Wilson DO PCP: Dr. Red Perez MD Status:[facility]M [facility] History of Present Illness Chief Complaint: [...] uncommon for her since beginning iron supplementation. [facility] Medical History (Updated 08/31/25 @ 13:40 by [...] own History mg/3 mL) subcutaneous pen injector (ClutterempEstorian) Held on 08/31/25. Instructions: skipped this week 08/31/25 fluticasone furoate 200 1 ea inhalation Q24H asthma 08/30/25 08:00 History mcg-vilanterol 25 mcg/dose inhalation powder ondansetron HCl 4 mg tablet 4 mg PO TID PRN nausea 08/31/25 Un known History potassium chloride 20 mEq 20 meq PO DAILY supplement 08/30/25 08:00 History tablet,extended release(part/cryst) Allergy/AdvReac Type Severity Reaction Status Date / Time No Known Allergies Allergy Verified 08/31/25 10:07 Family History Father Hypertension Diabetes Sister Anxiety MCTD (mixed connective tissue disease) Mother Psoriatic arthritis Surgical History Hx of section Hx of bilateral breast reduction surgery Social History household members: spouse current occupational status: employed 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 Normal [facility] Eosinophil percentageOrdered By: Berlin Wilson on 08-31-2025 Eosinophils/100 WBC (Bld) 3.0 % 0-5 [facility] Erythrocyte distribution wid th ratioOrdered By: Berlin Wilson on 08-31-2025 Erythrocyte distribution width (RBC) [Ratio] 13.8 % 11.6-14.6 [facility] Erythrocyte distribution wid th standard deviationOrdered By: Berlin Wilson on 08-31-2025 Erythrocyte distribution width (RBC) [Ratio] 40.0 fl 35.1-43.9 [facility] H AND P Exam - Hospitaliston 08-31-2025 H&P Exam - Hospitalist [facility] Medical Records Department [address] [place] [address] H P Exam - Hospitalist 08/31/25 1849 MR#: [id number] Acct: [id number] Name: HEIDI ANDREWS Rep #: [id number] : 1970 55 From: Frantz Gunderson DO PCP: Dr. Red Perez MD Status:ADM IN [place] [facility] [id number] HPI - General General Date of Admission: 08/31/25 Date of Service: 08/31/25 Chief Complaint: Syncope, right ankle injury HPI Narrative HEIDI ANDREWS, is a 55 F who presents to the emergency room at [facility] after sustaining a syncopal episode at home [...] of metformin with a backdrop of starvation. [facility], [facility] Medical History (Updated 08/31/25 @ 13:40 by [...] own History mg/3 mL) subcutaneous pen injector ([employer]) Held on 08/31/25. Instructions: skipped this week [...] spouse current occupational status: employed current occupation: [employer] Smoking Status: Former smoker alcohol intake: never substance use type: does not use ROS [employer] (more content not included)... Normal [facility] Hematocrit Auto (Bld) [Volum e fraction]Ordered By: Berlin Wilson on 08-31-2025 Hematocrit (Bld) [Volume fraction] 33.2 % Low 37-47 [facility] Hemoglobin measurementOrdere d By: Berlin Wilson on 08-31-2025 Hemoglobin (Bld) [Mass/Vol] 10.9 g/dL Low 12.0-15. 0 [facility] Immature granulocytes/100 WB C Auto (Bld)Ordered By: Berlin Wilson on 08-31-2025 Immature granulocytes/100 WBC (Bld) 1.200 % High 0.0-0.9 [facility] Comment on above: IG% - Immature Granu locytes (promyelocytes, myelocytes and metamyelocytes) > 1% indicates that a LEFT SHIFT is Present. International normalized rat io (INR) calculationOrdered By: Berlin Wilson on 08-31-2025 INR Coag (Bld) [Relative time] 1.3 {INR} [facility] Ketones Test strip Ql (U)Ord ered By: Berlin Wilson on 08-31-2025 Ketones Ql (U) 5 mg/dl High Negative [facility] Kidney and Bladderon 025 Kidney and Bladder [facility] Imaging Services [address] [place] [address] Kidney and Bladder MR#: [id number] Acct: [id number] Name: HEIDI ANDREWS Rep #: [id number] : 1970 F 55 From: Farhat Faye MD PCP: Dr. Red Perez MD Status: ADM IN Study: Kidney and Bladder Date of Exam: 08/31/25 Exam# [id number] Ordering Dr: Frantz Gunderson DO PROCEDURE: KIDNEY AND BLADDER 08/31/2025 REASON FOR EXAM: ACUTE KIDNEY INJURY TECHNIQUE: Procedure Code: USKI Modality: US Procedure: KIDNEY AND BLADDER COMPARISON: None available. FINDINGS: Kidneys: Normal renal sizes, parenchymal thicknesses, and echotextures. [place]: None. Cysts or Masses: No cysts or [...] Bladder IMPRESSION: NORMAL RENAL ULTRASOUND. Reading Location: [facility] CC: Dr. Frantz Gunderson DO; Dr. Red Perez MD [employer]: Signed Normal [facility] L501.4021on 08-31-2025 Trop T High Sen 14 ng/L Normal <=14 [facility] Comment on above: Performed By: #### L 503.0106, L500.4050, L501.1400, L400.0001, L503.6030, L3000.0800, L100.9950, L3890.6006, L501.5101, L100.0100, L504.2610, L501.5200, L506.0200, L3410.9992, L101.9900, L3100.1350, L3200.1200, L503.6550, L3200.0500, L501.6710 #### [facility] [address] [place], [address] Laboratory - Chemistry and C hemistry - challengeOrdered By: Berlin Wilson on 08-31-2025 AST [Catalytic activity/Vol] 17 U/L <32 [facility] Lactic Acidon 08-31-2025 Lactate [Moles/Vol] 3.0 mmol/L Invalid Interpretation Code 0.0-2.0 [facility] Comment on above: Result Comment: Crit ical Result(s) Called at: 23:17 08-31-25 TO TYSON ALLISON by: CHELSI PÉREZ??Results read back by same. Performed By: #### L 503.0106, L500.4050, L501.1400, L400.0001, L503.6030, L3000.0800, L100.9950, L3890.6006, L501.5101, L100.0100, L504.2610, L501.5200, L506.0200, L3410.9992, L101.9900, L3100.1350, L3200.1200, L503.6550, L3200.0500, L501.6710 #### [facility] [address] [place], [place], [id number] Lactate [Moles/Vol] 4.3 mmol/L Invalid Interpretation Code 0.0-2.0 [facility] Comment on above: Order Comment: Y Result Comment: Crit ical Result(s) Called at: 1855 by:??CHEYENNE BURNETT Results read back by same. Performed By: #### L 503.6005 #### [facility] [address] [place], [address] Lactate [Moles/Vol] 4.4 mmol/L Invalid Interpretation Code 0.0-2.0 [facility] Comment on above: Order Comment: Y Result Comment: Crit ical Result(s) Called to: Adam RN (ER) by: Sharmila??Results read back by same. Performed By: #### L 503.0106, L500.4050, L501.1400, L400.0001, L503.6030, L3000.0800, L100.9950, L3890.6006, L501.5101, L100.0100, L504.2610, L501.5200, L506.0200, L3410.9992, L101.9900, L3100.1350, L3200.1200, L503.6550, L3200.0500, L501.6710 #### [facility] [address] [place], [address] Lactic acid measurementOrder ed By: Frantz Gunderson on 08-31-2025 Lactate [Moles/Vol] 3.0 mmol/L Critically high 0.0-2.0 [facility] Comment on above: Critical Result(s) C alled at: 23:17 08-31-25 TO TYSON ALLISON by: CHELSI PÉREZ Results read back by same. Liver Profileon 08-31-2025 Albumin [Mass/Vol] 4.9 g/dL Normal 3.5-5.0 [facility] Comment on above: Performed By: #### L 503.0106, L500.4050, L501.1400, L400.0001, L503.6030, L3000.0800, L100.9950, L3890.6006, L501.5101, L100.0100, L504.2610, L501.5200, L506.0200, L3410.9992, L101.9900, L3100.1350, L3200.1200, L503.6550, L3200.0500, L501.6710 #### [facility] [address] [place], [address] ALK PHOS 186 U/L High 35-104 [facility] Comment on above: Performed By: #### L 503.0106, L500.4050, L501.1400, L400.0001, L503.6030, L3000.0800, L100.9950, L3890.6006, L501.5101, L100.0100, L504.2610, L501.5200, L506.0200, L3410.9992, L101.9900, L3100.1350, L3200.1200, L503.6550, L3200.0500, L501.6710 #### [facility] [address] [place], [address] ALT [Catalytic activity/Vol] 9 U/L Normal <=34 [facility] Comment on above: Performed By: #### L 503.0106, L500.4050, L501.1400, L400.0001, L503.6030, L3000.0800, L100.9950, L3890.6006, L501.5101, L100.0100, L504.2610, L501.5200, L506.0200, L3410.9992, L101.9900, L3100.1350, L3200.1200, L503.6550, L3200.0500, L501.6710 #### [facility] [address] [place], [address] AST [Catalytic activity/Vol] 17 U/L Normal <=31 [facility] Comment on above: Performed By: #### L 503.0106, L500.4050, L501.1400, L400.0001, L503.6030, L3000.0800, L100.9950, L3890.6006, L501.5101, L100.0100, L504.2610, L501.5200, L506.0200, L3410.9992, L101.9900, L3100.1350, L3200.1200, L503.6550, L3200.0500, L501.6710 #### [facility] [address] [place], [address] Bilirubin [Mass/Vol] 0.60 mg/dL Normal 0.00-1.30 [facility] Comment on above: Performed By: #### L 503.0106, L500.4050, L501.1400, L400.0001, L503.6030, L3000.0800, L100.9950, L3890.6006, L501.5101, L100.0100, L504.2610, L501.5200, L506.0200, L3410.9992, L101.9900, L3100.1350, L3200.1200, L503.6550, L3200.0500, L501.6710 #### [facility] [address] [place], [place], [id number] (791) Bilirubin.direct [Mass/Vol] 0.33 mg/dL High 0.00-0.3 0 [facility] Comment on above: Performed By: #### L 503.0106, L500.4050, L501.1400, L400.0001, L503.6030, L3000.0800, L100.9950, L3890.6006, L501.5101, L100.0100, L504.2610, L501.5200, L506.0200, L3410.9992, L101.9900, L3100.1350, L3200.1200, L503.6550, L3200.0500, L501.6710 #### [facility] [address] [place], [place], [id number] (965) Globulin (S) [Mass/Vol] 3.7 g/dL Normal 2.2-4.2 [facility] Comment on above: Performed By: #### L 503.0106, L500.4050, L501.1400, L400.0001, L503.6030, L3000.0800, L100.9950, L3890.6006, L501.5101, L100.0100, L504.2610, L501.5200, L506.0200, L3410.9992, L101.9900, L3100.1350, L3200.1200, L503.6550, L3200.0500, L501.6710 #### [facility] [address] [place], [place], [id number] T PROT 8.6 g/dL High 5.9-8.4 [facility] Comment on above: Performed By: #### L 503.0106, L500.4050, L501.1400, L400.0001, L503.6030, L3000.0800, L100.9950, L3890.6006, L501.5101, L100.0100, L504.2610, L501.5200, L506.0200, L3410.9992, L101.9900, L3100.1350, L3200.1200, L503.6550, L3200.0500, L501.6710 #### [facility] [address] [place], [place], [id number] MCV (mean corpuscular volume ) determinationOrdered By: Berlin Wilson on 08-31-2025 MCV (RBC) [Entitic vol] 80.8 fL Low 81-99 [facility] Mean corpuscular hemoglobin (MCH) determinationOrdered By: Berlin Wilson on 08-31-2025 MCH (RBC) [Entitic mass] 26.5 pg Low 27.0-32.0 [facility] Mean corpuscular hemoglobin concentration (MCHC) determinationOrdered By: Berlin Wilson on 08-31-2025 MCHC (RBC) [Mass/Vol] 32.8 g/dL 32-36 [facility] Mean platelet volume determi nationOrdered By: Berlin Wilson on 08-31-2025 Platelet mean volume (Bld) [Entitic vol] 10.1 fL 6.2-12.0 [facility] Microscopic analysis of urin e for red blood cells (RBC)Ordered By: Berlin Wilson on 08-31-2025 Microscopic analysis of urine for red blood cells (RBC) 0 SEEN /hpf 0-5 [facility] Monocyte percentageOrdered B y: Berlin Wilson on 08-31-2025 Monocytes/100 WBC (Bld) 6.7 % 0-10 [facility] Mucus LM Ql (Urine sed)Order ed By: Berlin Wilson on 08-31-2025 Mucus Ql (Urine sed) 0 SEEN /hpf [facility] Neutrophil percentageOrdered By: Berlin Wilson on 08-31-2025 Neutrophils/100 WBC (Bld) 72.5 % High 47-70 [facility] Nitrite Test strip Ql (U)Ord ered By: Berlin Wilson on 08-31-2025 Nitrite Ql (U) Negative Negative [facility] No Panel InformationOrdered By: Berlin Wilson on 08-31-2025 17 U/L <32 [facility] Nucleated red blood cell per centageOrdered By: Berlin Wilson on 08-31-2025 Nucleated RBC/100 WBC (Bld) [Ratio] 0 % 0-5 [facility] Partial Thromboplast Timeon 08-31-2025 aPTT Coag (Bld) [Time] 27.1 s Normal 24.1-36.2 [facility] Comment on above: Performed By: #### L 503.0106, L500.4050, L501.1400, L400.0001, L503.6030, L3000.0800, L100.9950, L3890.6006, L501.5101, L100.0100, L504.2610, L501.5200, L506.0200, L3410.9992, L101.9900, L3100.1350, L3200.1200, L503.6550, L3200.0500, L501.6710 #### [facility] [place], [address] Platelet countOrdered By: Romeo Wilson on 08-31-2025 Platelets (Bld) [#/Vol] 240 10*3/uL 150-450 [facility] Protein Test strip Ql (U)Ord ered By: Berlin Wilson on 08-31-2025 Protein Ql (U) 100 mg/dl High Negative [facility] Prothrombin Time w/INRon INR Coag (PPP) [Relative time] 1.3 {INR} Normal [facility] Comment on above: Performed By: #### L 503.0106, L500.4050, L501.1400, L400.0001, L503.6030, L3000.0800, L100.9950, L3890.6006, L501.5101, L100.0100, L504.2610, L501.5200, L506.0200, L3410.9992, L101.9900, L3100.1350, L3200.1200, L503.6550, L3200.0500, L501.6710 #### [facility] [address] [place], [address] PT Coag (PPP) [Time] 16.0 s High 11.7-14.9 [facility] Comment on above: Performed By: #### L 503.0106, L500.4050, L501.1400, L400.0001, L503.6030, L3000.0800, L100.9950, L3890.6006, L501.5101, L100.0100, L504.2610, L501.5200, L506.0200, L3410.9992, L101.9900, L3100.1350, L3200.1200, L503.6550, L3200.0500, L501.6710 #### [facility] [address] [place], [place], [id number] Prothrombin timeOrdered By: Berlin Wilson on 08-31-2025 PT Coag (PPP) [Time] 16.0 s High 11.7-14.9 [facility] RBC Auto (Bld) [#/Vol]Ordere d By: Berlin Wilson on 08-31-2025 RBC (Bld) [#/Vol] 4.11 10*6/uL Low 4.2-5.4 [facility] Serum globulin measurementOr dered By: Berlin Wilsno on 08-31-2025 Globulin (S) [Mass/Vol] 3.7 g/dL 2.2-4.2 [facility] Serum or plasma alanine cueto otransferase (ALT) measurementOrdered By: Berlin Wilson on 08-31-2025 ALT [Catalytic activity/Vol] 9 U/L <35 [facility] Serum or plasma albumin sandy urement (mass/volume)Ordered By: Berlin Wilson on 08-31-2025 Albumin [Mass/Vol] 4.9 g/dL 3.5-5.0 [facility] Serum or plasma alkaline rebecca sphatase measurementOrdered By: Berlin Wilson on 08-31-2025 ALP [Catalytic activity/Vol] 186 U/L High 35-104 [facility] Squamous epithelial cells de tection in urine sediment by light microscopyOrdered By: Berlin Wilson on 08-31-2025 Epithelial cells.squamous LM Ql (Urine sed) 10-25 SEEN /hpf 5-10 [facility] Total proteinOrdered By: Brock Wilson on 08-31-2025 Protein [Mass/Vol] 8.6 g/dL High 5.9-8.4 [facility] Troponin T HS 2 HRon 025 Trop T High Sen 12 ng/L Normal <=14 [facility] Comment on above: Performed By: #### L 503.0106, L500.4050, L501.1400, L400.0001, L503.6030, L3000.0800, L100.9950, L3890.6006, L501.5101, L100.0100, L504.2610, L501.5200, L506.0200, L3410.9992, L101.9900, L3100.1350, L3200.1200, L503.6550, L3200.0500, L501.6710 #### [facility] [address] [place], [place], [id number] Troponin T.cardiac [Mass/vol ume] in Serum or Plasma by High sensitivity methodOrdered By: Berlin Wilson on 08-31-2025 Troponin T.cardiac High sensitivity method [Mass/Vol] 12 ng/L <14 [facility] Troponin T.cardiac High sensitivity method [Mass/Vol] 14 ng/L <14 [facility] Urinalysis, Completeon 08-31 AMORPHOUS 1+ Normal [facility] Comment on above: Order Comment: Y Performed By: #### L 503.6005 #### [facility] [address] [place], [address] BACTERIA RARE Normal None Seen [facility] Comment on above: Order Comment: Y Performed By: #### L 503.6005 #### [facility] [address] [place], [address] EPI,SQUAMOUS 10-25 SEEN Normal 5-10 [facility] Comment on above: Order Comment: Y Performed By: #### L 503.6005 #### [facility] [address] [place], [address] WBC 0-5 SEEN Normal 0-5 [facility] Comment on above: Order Comment: Y Performed By: #### L 503.6005 #### [facility] [address] [place], [address] Mucus Ql (Urine sed) 0 SEEN Normal [facility] Comment on above: Order Comment: Y Performed By: #### L 503.6005 #### [facility] [address] [place], [address] RBC 0 SEEN Normal 0-5 [facility] Comment on above: Order Comment: Y Performed By: #### L 503.6005 #### [facility] [address] [place], [address] Urine clarityOrdered By: Brock Wilson on 08-31-2025 Clarity (U) Sl. Cloudy Clear [facility] Urine color determinationOrd ered By: Berlin Wilson on 08-31-2025 Color (U) Yellow Yellow [facility] Urine glucose detectionOrder ed By: Berlin Wilson on 08-31-2025 Glucose Ql (U) Normal mg/dl Normal [facility] Urine leukocyte esterase det ection by dipstickOrdered By: Berlin Wilson on 08-31-2025 Leukocyte esterase Test strip Ql (U) 25 /ul High Negative [facility] Urine pHOrdered By: Berlin krishna on 08-31-2025 pH (U) 5.0 [pH] 5.0 - 8.0 [facility] Urine sediment bacteria coun t by microscopy (number/high power field)Ordered By: Berlin Wilson on 08-31-2025 Bacteria LM.HPF (Urine sed) [#/Area] RARE /hpf None Seen [facility] Urine specific gravity measu rementOrdered By: Berlin Wilson on 08-31-2025 Specific gravity (U) [Rel density] 1.025 1.002-1.030 [facility] Urine urobilinogen measureme ntOrdered By: Berlin Wilson on 08-31-2025 Urobilinogen Ql (U) 1 mg/dl High Normal [facility] White blood cell (WBC) count Ordered By: Berlin Wilson on 08-31-2025 WBC (Bld) [#/Vol] 4.9 10*3/uL 4.4-11.0 [facility] White blood cell countOrdere d By: Berlin Wilson on 08-31-2025 White blood cell count 0-5 SEEN /hpf 0-5 [facility] Stool Occult Blood iFOBon STOB Positive Normal [facility] Comment on above: Performed By: #### L 503.0106, L500.4050, L501.1400, L400.0001, L503.6030, L3000.0800, L100.9950, L3890.6006, L501.5101, L100.0100, L504.2610, L501.5200, L506.0200, L3410.9992, L101.9900, L3100.1350, L3200.1200, L503.6550, L3200.0500, L501.6710 #### [facility] [address] [place], [address] Stool gastrointestinal hemog lobin detection by immunologic methodOrdered By: Glen Chapman on 08-30-2025 Lower GI hemoglobin IA Ql (Stl) Positive Abnormal [facility] Erythropoietinon 08-28-2025 ERYTHROPOIETIN 9.5 mIU/mL Normal 2.6-18.5 [facility] Comment on above: Result Comment: Vilynx DxI 800 Immunoassay System Values obtained with different assay methods or kits cannot be used interchangeably. Results cannot be interpreted as absolute evidence of the presence or absence of malignant disease. Performed By: #### L 503.6005 #### [facility] [address] [place], [address] Hepatitis B/C Profile VIIIon 08-28-2025 COMMENT Comment Normal . [facility] Comment on above: Result Comment: Not infected with HCV unless early or acute infection is suspected (which may be delayed in an immunocompromised individual), or other evidence exists to indicate HCV infection. Performed By: #### L 503.6005 #### [facility] [address] [place], [address] HEP B CORE,TOT Negative Normal Negative [facility] Comment on above: Performed By: #### L 503.6005 #### [facility] [address] [place], [address] Hep B Micheal AB Non-Reactive Normal . [facility] Comment on above: Result Comment: Non Reactive: Not immune to HBV infection. Anti-HBs undetectable or less than 10 mIU/mL. Reactive: Evidence of HBV immunity. Anti-HBs levels greater than 10 mIU/mL. Performed By: #### L 503.6005 #### [facility] [address] [place], [address] HEP B SURF AG Negative Normal Negative [facility] Comment on above: Performed By: #### L 503.6005 #### [facility] [address] [place], [address] HEP C Antibody Non-Reactive Normal Non Reactive [facility] Comment on above: Performed By: #### L 503.6005 #### [facility] [place], [address] HEPATITIS INTER Comment Normal . [facility] Comment on above: Result Comment: HBV [...] infection. Performed By: #### L 503.6005 #### [facility] [place] [place], [address] IgG Subclasseson 08-28-2025 IgG, SUBCLASS 1 334 mg/dL Normal 248-810 [facility] Comment on above: Performed By: #### L 503.0106, L500.4050, L501.1400, L400.0001, L503.6030, L3000.0800, L100.9950, L3890.6006, L501.5101, L100.0100, L504.2610, L501.5200, L506.0200, L3410.9992, L101.9900, L3100.1350, L3200.1200, L503.6550, L3200.0500, L501.6710 #### [facility] [address] [place], [address] IgG, SUBCLASS 2 281 mg/dL Normal 130-555 [facility] Comment on above: Performed By: #### L 503.0106, L500.4050, L501.1400, L400.0001, L503.6030, L3000.0800, L100.9950, L3890.6006, L501.5101, L100.0100, L504.2610, L501.5200, L506.0200, L3410.9992, L101.9900, L3100.1350, L3200.1200, L503.6550, L3200.0500, L501.6710 #### [facility] [address] [place], [address] IgG, SUBCLASS 3 51 mg/dL Normal 15-102 [facility] Comment on above: Performed By: #### L 503.0106, L500.4050, L501.1400, L400.0001, L503.6030, L3000.0800, L100.9950, L3890.6006, L501.5101, L100.0100, L504.2610, L501.5200, L506.0200, L3410.9992, L101.9900, L3100.1350, L3200.1200, L503.6550, L3200.0500, L501.6710 #### [facility] [address] [place], [address] IgG, SUBCLASS 4 3 mg/dL Normal 2-96 [facility] Comment on above: Performed By: #### L 503.0106, L500.4050, L501.1400, L400.0001, L503.6030, L3000.0800, L100.9950, L3890.6006, L501.5101, L100.0100, L504.2610, L501.5200, L506.0200, L3410.9992, L101.9900, L3100.1350, L3200.1200, L503.6550, L3200.0500, L501.6710 #### [facility] [address] [place], [place], [id number] IGG,QUANT 718 mg/dL Normal 586-1602 [facility] Comment on above: Performed By: #### L 503.0106, L500.4050, L501.1400, L400.0001, L503.6030, L3000.0800, L100.9950, L3890.6006, L501.5101, L100.0100, L504.2610, L501.5200, L506.0200, L3410.9992, L101.9900, L3100.1350, L3200.1200, L503.6550, L3200.0500, L501.6710 #### [facility] [address] [place], [place], [address] Immunoglobulins G/A/Mon - IMMUNOGLOB A QN 72 mg/dL Low 87-352 [facility] Comment on above: Order Comment: N Performed By: #### L 503.0106, L500.4050, L501.1400, L400.0001, L503.6030, L3000.0800, L100.9950, L3890.6006, L501.5101, L100.0100, L504.2610, L501.5200, L506.0200, L3410.9992, L101.9900, L3100.1350, L3200.1200, L503.6550, L3200.0500, L501.6710 #### [facility] [address] [place], [place], [address] IMMUNOGLOB M QN 49 mg/dL Normal 26-217 [facility] Comment on above: Order Comment: N Performed By: #### L 503.0106, L500.4050, L501.1400, L400.0001, L503.6030, L3000.0800, L100.9950, L3890.6006, L501.5101, L100.0100, L504.2610, L501.5200, L506.0200, L3410.9992, L101.9900, L3100.1350, L3200.1200, L503.6550, L3200.0500, L501.6710 #### [facility] [address] [place], [place], [address] L3410.9992on 08-28-2025 [facility] COM[facility] Normal . [facility] Comment on above: Order Comment: Y Result Comment: Test Ordered: [id number] ANIRUDH, IFA Rfx 9 Fr[employer] Multiplex ANIRUDH [...] detected by ANIRUDH IFA methodology. Performed at: [facility] [id number] [employer]: Preston Ashley PhD, Phone: [phone] Performed By: #### L 503.6005 #### [facility] [address] [place], [place], [address] L501.5101on 08-28-2025 GGTP 62 IU/L Abnormal 0-60 [facility] Comment on above: Result Comment: Perf ormed at: [facility] [id number] [employer]: Preston Ashley PhD, Phone: [phone] Performed By: #### L 503.6005 #### [facility] [address] [place], [place], [address] Absolute lymphocyte countOrd ered By: Glen Chapman on 08-27-2025 Lymphocytes Auto (Unsp spec) [#/Vol] 1.29 10*3/uL 0.83-4.51 [facility] Absolute neutrophil countOrd ered By: Glen Ari on 08-27-2025 Neutrophils (Bld) [#/Vol] 5.3 10*3/uL 2.0-7.7 [facility] Anion gap in Serum or Plasma Ordered By: Glen Chapman on 08-27-2025 Anion gap [Moles/Vol] 21 mmol/L High 5-15 [facility] Automated lymphocyte count a s percentage of total leukocytesOrdered By: Glen Chapman on 08-27-2025 Lymphocytes/100 WBC Auto (Unsp spec) 17.4 % Low 19-41 [facility] BUN/creatinine ratioOrdered By: Glen Chapman on 08-27-2025 Urea nitrogen/Creatinine [Mass ratio] 16.9 mg/mg 09-03 [facility] Comment on above: Previous reported re sult: 16.8 RATIOEdited by: AUTOINGeetha on 08/27/25:1520 AMENDED REPORT 08/27/25 1520 BUN/CRE previously reported as: 16.8 RATIO Basophil percentageOrdered B y: Glen Chapman on 08-27-2025 Basophils/100 WBC (Bld) 0.4 % 0-1 [facility] - [place] Bilirubin Test strip Ql (U)O rdered By: Glen Chapman on 08-27-2025 Bilirubin Ql (U) 1 mg/dL High Negative [facility] Comment on above: COLOR OF URINE MAY A FFECT DIPSTICK RESULTS. Bilirubin, totalOrdered By: Glen Chapman on 08-27-2025 Bilirubin [Mass/Vol] 0.59 mg/dL 0.00-1.30 [facility] CBC W/Diff, Automatedon 08-15 Absolute Lymph 1.29 X10 3/uL Normal 0.83-4.51 [facility] Comment on above: Performed By: #### L 503.0106, L500.4050, L501.1400, L400.0001, L503.6030, L3000.0800, L100.9950, L3890.6006, L501.5101, L100.0100, L504.2610, L501.5200, L506.0200, L3410.9992, L101.9900, L3100.1350, L3200.1200, L503.6550, L3200.0500, L501.6710 #### [facility] [address] [place], [address] Absolute Neut 5.3 X10 3/uL Normal 2.0-7.7 [facility] Comment on above: Performed By: #### L 503.0106, L500.4050, L501.1400, L400.0001, L503.6030, L3000.0800, L100.9950, L3890.6006, L501.5101, L100.0100, L504.2610, L501.5200, L506.0200, L3410.9992, L101.9900, L3100.1350, L3200.1200, L503.6550, L3200.0500, L501.6710 #### [facility] [address] [facility] [place], [address] Basophils/100 WBC (Bld) 0.4 % Normal 0-1 [facility] Comment on above: Performed By: #### L 503.0106, L500.4050, L501.1400, L400.0001, L503.6030, L3000.0800, L100.9950, L3890.6006, L501.5101, L100.0100, L504.2610, L501.5200, L506.0200, L3410.9992, L101.9900, L3100.1350, L3200.1200, L503.6550, L3200.0500, L501.6710 #### [facility] [address] [facility] [place], [address] Eosinophils/100 WBC (Bld) 2.2 % Normal 0-5 [facility] Comment on above: Performed By: #### L 503.0106, L500.4050, L501.1400, L400.0001, L503.6030, L3000.0800, L100.9950, L3890.6006, L501.5101, L100.0100, L504.2610, L501.5200, L506.0200, L3410.9992, L101.9900, L3100.1350, L3200.1200, L503.6550, L3200.0500, L501.6710 #### [facility] [address] [place], [address] Erythrocyte distribution width (RBC) [Ratio] 13.8 % Normal 11.6-14.6 [facility] Comment on above: Performed By: #### L 503.0106, L500.4050, L501.1400, L400.0001, L503.6030, L3000.0800, L100.9950, L3890.6006, L501.5101, L100.0100, L504.2610, L501.5200, L506.0200, L3410.9992, L101.9900, L3100.1350, L3200.1200, L503.6550, L3200.0500, L501.6710 #### [facility] [address] [facility] [place], [address] Hematocrit (Bld) [Volume fraction] 33.2 % Low 37-47 [facility] Comment on above: Performed By: #### L 503.0106, L500.4050, L501.1400, L400.0001, L503.6030, L3000.0800, L100.9950, L3890.6006, L501.5101, L100.0100, L504.2610, L501.5200, L506.0200, L3410.9992, L101.9900, L3100.1350, L3200.1200, L503.6550, L3200.0500, L501.6710 #### [facility] [address] [place], [address] (131) Hemoglobin (Bld) [Mass/Vol] 11.3 g/dL Low 12.0-15. 0 [facility] Comment on above: Performed By: #### L 503.0106, L500.4050, L501.1400, L400.0001, L503.6030, L3000.0800, L100.9950, L3890.6006, L501.5101, L100.0100, L504.2610, L501.5200, L506.0200, L3410.9992, L101.9900, L3100.1350, L3200.1200, L503.6550, L3200.0500, L501.6710 #### [facility] [address] [facility] [place], [address] IG% 2.200 High 0.0-0.9 [facility] Comment on above: Result Comment: IG% - Immature Granulocytes (promyelocytes, myelocytes and metamyelocytes) > 1% indicates that a LEFT SHIFT is Present. Performed By: #### L 503.0106, L500.4050, L501.1400, L400.0001, L503.6030, L3000.0800, L100.9950, L3890.6006, L501.5101, L100.0100, L504.2610, L501.5200, L506.0200, L3410.9992, L101.9900, L3100.1350, L3200.1200, L503.6550, L3200.0500, L501.6710 #### [facility] [address] [place], [place], [id number] Lymphocytes/100 WBC (Bld) 17.4 % Low 19-41 [facility] Comment on above: Performed By: #### L 503.0106, L500.4050, L501.1400, L400.0001, L503.6030, L3000.0800, L100.9950, L3890.6006, L501.5101, L100.0100, L504.2610, L501.5200, L506.0200, L3410.9992, L101.9900, L3100.1350, L3200.1200, L503.6550, L3200.0500, L501.6710 #### [facility] [address] [place], [address] MCH (RBC) [Entitic mass] 27.2 pg Normal 27.0-32.0 [facility] Comment on above: Performed By: #### L 503.0106, L500.4050, L501.1400, L400.0001, L503.6030, L3000.0800, L100.9950, L3890.6006, L501.5101, L100.0100, L504.2610, L501.5200, L506.0200, L3410.9992, L101.9900, L3100.1350, L3200.1200, L503.6550, L3200.0500, L501.6710 #### [facility] [address] [facility] [place], [address] MCHC (RBC) [Mass/Vol] 34.0 g/dL Normal 32-36 [facility] Comment on above: Performed By: #### L 503.0106, L500.4050, L501.1400, L400.0001, L503.6030, L3000.0800, L100.9950, L3890.6006, L501.5101, L100.0100, L504.2610, L501.5200, L506.0200, L3410.9992, L101.9900, L3100.1350, L3200.1200, L503.6550, L3200.0500, L501.6710 #### [facility] [address] [facility] [place], [address] MCV (RBC) [Entitic vol] 80.0 fL Low 81-99 [facility] [place] Comment on above: Performed By: #### L 503.0106, L500.4050, L501.1400, L400.0001, L503.6030, L3000.0800, L100.9950, L3890.6006, L501.5101, L100.0100, L504.2610, L501.5200, L506.0200, L3410.9992, L101.9900, L3100.1350, L3200.1200, L503.6550, L3200.0500, L501.6710 #### [facility] [address] [place], [address] Monocytes/100 WBC (Bld) 6.2 % Normal 0-10 [facility] [place] Comment on above: Performed By: #### L 503.0106, L500.4050, L501.1400, L400.0001, L503.6030, L3000.0800, L100.9950, L3890.6006, L501.5101, L100.0100, L504.2610, L501.5200, L506.0200, L3410.9992, L101.9900, L3100.1350, L3200.1200, L503.6550, L3200.0500, L501.6710 #### [facility] [address] [place], [address] Neutrophils/100 WBC (Bld) 71.6 % High 47-70 [facility] Comment on above: Performed By: #### L 503.0106, L500.4050, L501.1400, L400.0001, L503.6030, L3000.0800, L100.9950, L3890.6006, L501.5101, L100.0100, L504.2610, L501.5200, L506.0200, L3410.9992, L101.9900, L3100.1350, L3200.1200, L503.6550, L3200.0500, L501.6710 #### [facility] [address] [place], [address] Nucleated RBC (Bld) [#/Vol] 0 10*3/uL Normal 0-5 [facility] Comment on above: Performed By: #### L 503.0106, L500.4050, L501.1400, L400.0001, L503.6030, L3000.0800, L100.9950, L3890.6006, L501.5101, L100.0100, L504.2610, L501.5200, L506.0200, L3410.9992, L101.9900, L3100.1350, L3200.1200, L503.6550, L3200.0500, L501.6710 #### [facility] [address] [place], [place], [address] Platelet mean volume (Bld) [Entitic vol] 9.5 fL Normal 6.2-12.0 [facility] Comment on above: Performed By: #### L 503.0106, L500.4050, L501.1400, L400.0001, L503.6030, L3000.0800, L100.9950, L3890.6006, L501.5101, L100.0100, L504.2610, L501.5200, L506.0200, L3410.9992, L101.9900, L3100.1350, L3200.1200, L503.6550, L3200.0500, L501.6710 #### [facility] [address] [place], [place], [id number] [phone] Platelets (Bld) [#/Vol] 333 10*3/uL Normal 150-450 [facility] Comment on above: Performed By: #### L 503.0106, L500.4050, L501.1400, L400.0001, L503.6030, L3000.0800, L100.9950, L3890.6006, L501.5101, L100.0100, L504.2610, L501.5200, L506.0200, L3410.9992, L101.9900, L3100.1350, L3200.1200, L503.6550, L3200.0500, L501.6710 #### [facility] [address] [place], [address] RBC (Bld) [#/Vol] 4.15 10*6/uL Low 4.2-5.4 [facility] Comment on above: Performed By: #### L 503.0106, L500.4050, L501.1400, L400.0001, L503.6030, L3000.0800, L100.9950, L3890.6006, L501.5101, L100.0100, L504.2610, L501.5200, L506.0200, L3410.9992, L101.9900, L3100.1350, L3200.1200, L503.6550, L3200.0500, L501.6710 #### [facility] [address] [place], [address] RDW SD 39.8 fl Normal 35.1-43.9 [facility] Comment on above: Performed By: #### L 503.0106, L500.4050, L501.1400, L400.0001, L503.6030, L3000.0800, L100.9950, L3890.6006, L501.5101, L100.0100, L504.2610, L501.5200, L506.0200, L3410.9992, L101.9900, L3100.1350, L3200.1200, L503.6550, L3200.0500, L501.6710 #### [facility] [address] [place], [place], [id number] (184) WBC (Bld) [#/Vol] 7.4 10*3/uL Normal 4.4-11.0 [facility] Comment on above: Performed By: #### L 503.0106, L500.4050, L501.1400, L400.0001, L503.6030, L3000.0800, L100.9950, L3890.6006, L501.5101, L100.0100, L504.2610, L501.5200, L506.0200, L3410.9992, L101.9900, L3100.1350, L3200.1200, L503.6550, L3200.0500, L501.6710 #### [facility] [address] [place], [place], [id number] CRPon 08-27-2025 C-REACTIVE PROT 18.30 mg/L High 0.0-3.0 [facility] Comment on above: Performed By: #### L 503.6005 #### [facility] [address] [place], [place], [address] Carbon dioxide, total [Moles /volume] in Central venous bloodOrdered By: Glen Chapman on 08-27-2025 CO2 [Moles/Vol] 20.0 mmol/L Low 21.0-32.0 [facility] Comment on above: Previous reported re sult: 19.6 mmol/LEdited by: CRISTA on 08/27/25:1520 AMENDED REPORT 08/27/25 1520 CO2 previously reported as: 19.6 L mmol/L Chloride assayOrdered By: Jaimee Chapman on 08-27-2025 Chloride [Moles/Vol] 90 mmol/L Low 98-108 [facility] Comprehensive Metabolic Prof ilon 08-27-2025 Albumin [Mass/Vol] 4.6 g/dL Normal 3.5-5.0 [facility] Comment on above: Performed By: #### L 503.0106, L500.4050, L501.1400, L400.0001, L503.6030, L3000.0800, L100.9950, L3890.6006, L501.5101, L100.0100, L504.2610, L501.5200, L506.0200, L3410.9992, L101.9900, L3100.1350, L3200.1200, L503.6550, L3200.0500, L501.6710 #### [facility] [address] [place], [place], [address] Albumin/Globulin [Mass ratio] 1.2 {ratio} Normal 0.9-2.4 [facility] Comment on above: Result Comment: AMENDED REPORT 08/27/251519 A/G previously reported as: 1.2 RATIO Performed By: #### L 503.0106, L500.4050, L501.1400, L400.0001, L503.6030, L3000.0800, L100.9950, L3890.6006, L501.5101, L100.0100, L504.2610, L501.5200, L506.0200, L3410.9992, L101.9900, L3100.1350, L3200.1200, L503.6550, L3200.0500, L501.6710 #### [facility] [address] [place], [place], [address] ALK PHOS 194 U/L High 35-104 [facility] Comment on above: Result Comment: AMENDED REPORT 08/27/251519 ALK P previously reported as: 196 H U/L Performed By: #### L 503.0106, L500.4050, L501.1400, L400.0001, L503.6030, L3000.0800, L100.9950, L3890.6006, L501.5101, L100.0100, L504.2610, L501.5200, L506.0200, L3410.9992, L101.9900, L3100.1350, L3200.1200, L503.6550, L3200.0500, L501.6710 #### [facility] [address] [place], [place], [id number] ALT [Catalytic activity/Vol] 8 U/L Normal <=34 [facility] Comment on above: Result Comment: AMENDED REPORT 08/27/251519 ALT previously reported as: 9 U/L Performed By: #### L 503.0106, L500.4050, L501.1400, L400.0001, L503.6030, L3000.0800, L100.9950, L3890.6006, L501.5101, L100.0100, L504.2610, L501.5200, L506.0200, L3410.9992, L101.9900, L3100.1350, L3200.1200, L503.6550, L3200.0500, L501.6710 #### [facility] [address], [place], [address] AST [Catalytic activity/Vol] 17 U/L Normal <=31 [facility] Comment on above: Result Comment: AMENDED REPORT 08/27/25 1520 AST previously reported as: 19 U/L Performed By: #### L 503.0106, L500.4050, L501.1400, L400.0001, L503.6030, L3000.0800, L100.9950, L3890.6006, L501.5101, L100.0100, L504.2610, L501.5200, L506.0200, L3410.9992, L101.9900, L3100.1350, L3200.1200, L503.6550, L3200.0500, L501.6710 #### [facility] [address], [place], [address] Bilirubin [Mass/Vol] 0.59 mg/dL Normal 0.00-1.30 [facility] Comment on above: Performed By: #### L 503.0106, L500.4050, L501.1400, L400.0001, L503.6030, L3000.0800, L100.9950, L3890.6006, L501.5101, L100.0100, L504.2610, L501.5200, L506.0200, L3410.9992, L101.9900, L3100.1350, L3200.1200, L503.6550, L3200.0500, L501.6710 #### [facility] [address] [place], [address] BUN/CRE 16.9 RATIO Normal 10-20 [facility] Comment on above: Result Comment: AMENDED REPORT 08/27/25 1520 BUN/CRE previously reported as: 16.8 RATIO Performed By: #### L 503.0106, L500.4050, L501.1400, L400.0001, L503.6030, L3000.0800, L100.9950, L3890.6006, L501.5101, L100.0100, L504.2610, L501.5200, L506.0200, L3410.9992, L101.9900, L3100.1350, L3200.1200, L503.6550, L3200.0500, L501.6710 #### [facility] [address] [place], [place], [phone] Calcium [Mass/Vol] 10.5 mg/dL Normal 7.6-11.0 [facility] Comment on above: Performed By: #### L 503.0106, L500.4050, L501.1400, L400.0001, L503.6030, L3000.0800, L100.9950, L3890.6006, L501.5101, L100.0100, L504.2610, L501.5200, L506.0200, L3410.9992, L101.9900, L3100.1350, L3200.1200, L503.6550, L3200.0500, L501.6710 #### [facility] [address] [place], [place], [phone] Chloride [Moles/Vol] 90 mmol/L Low 98-108 [facility] Comment on above: Performed By: #### L 503.0106, L500.4050, L501.1400, L400.0001, L503.6030, L3000.0800, L100.9950, L3890.6006, L501.5101, L100.0100, L504.2610, L501.5200, L506.0200, L3410.9992, L101.9900, L3100.1350, L3200.1200, L503.6550, L3200.0500, L501.6710 #### [facility] [address] [facility] [place], [address] CO2 [Moles/Vol] 20.0 mmol/L Low 21.0-32.0 [facility] Comment on above: Result Comment: AMENDED REPORT 08/27/251519 CO2 previously reported as: 19.6 L mmol/L Performed By: #### L 503.0106, L500.4050, L501.1400, L400.0001, L503.6030, L3000.0800, L100.9950, L3890.6006, L501.5101, L100.0100, L504.2610, L501.5200, L506.0200, L3410.9992, L101.9900, L3100.1350, L3200.1200, L503.6550, L3200.0500, L501.6710 #### [facility] [address], [place], [id number] Creatinine [Mass/Vol] 1.58 mg/dL High 0.70-1.20 [facility] Comment on above: Result Comment: AMENDED REPORT 08/27/251519 CREAT,SERUM previously reported as: 1.65 H mg/dL Performed By: #### L 503.0106, L500.4050, L501.1400, L400.0001, L503.6030, L3000.0800, L100.9950, L3890.6006, L501.5101, L100.0100, L504.2610, L501.5200, L506.0200, L3410.9992, L101.9900, L3100.1350, L3200.1200, L503.6550, L3200.0500, L501.6710 #### [facility] [address] [place], [address] ECRCL 49.49 ml/min Low 50-250 [facility] Comment on above: Result Comment: AMENDED REPORT 08/27/251519 Estimated CRCL previously reported as: 47.39 L ml/min Performed By: #### L 503.0106, L500.4050, L501.1400, L400.0001, L503.6030, L3000.0800, L100.9950, L3890.6006, L501.5101, L100.0100, L504.2610, L501.5200, L506.0200, L3410.9992, L101.9900, L3100.1350, L3200.1200, L503.6550, L3200.0500, L501.6710 #### [facility] [address] [place], [address] GAP 21 High 5-15 [facility] Comment on above: Performed By: #### L 503.0106, L500.4050, L501.1400, L400.0001, L503.6030, L3000.0800, L100.9950, L3890.6006, L501.5101, L100.0100, L504.2610, L501.5200, L506.0200, L3410.9992, L101.9900, L3100.1350, L3200.1200, L503.6550, L3200.0500, L501.6710 #### [facility] [address] [place], [place], [id number] Globulin (S) [Mass/Vol] 3.7 g/dL Normal 2.2-4.2 [facility] Comment on above: Result Comment: AMENDED REPORT 08/27/251519 GLOB previously reported as: 3.8 g/dL Performed By: #### L 503.0106, L500.4050, L501.1400, L400.0001, L503.6030, L3000.0800, L100.9950, L3890.6006, L501.5101, L100.0100, L504.2610, L501.5200, L506.0200, L3410.9992, L101.9900, L3100.1350, L3200.1200, L503.6550, L3200.0500, L501.6710 #### [facility] [address] [place], [place], [id number] (154) Glucose [Mass/Vol] 161 mg/dL High 70-99 [facility] Comment on above: Result Comment: AMENDED REPORT 08/27/25 1520 GLU previously reported as: 165 H mg/dL Performed By: #### L 503.0106, L500.4050, L501.1400, L400.0001, L503.6030, L3000.0800, L100.9950, L3890.6006, L501.5101, L100.0100, L504.2610, L501.5200, L506.0200, L3410.9992, L101.9900, L3100.1350, L3200.1200, L503.6550, L3200.0500, L501.6710 #### [facility] [address] [place], [place], [id number] [phone] Potassium [Moles/Vol] 4.0 mmol/L Normal 3.3-5.1 [facility] Comment on above: Performed By: #### L 503.0106, L500.4050, L501.1400, L400.0001, L503.6030, L3000.0800, L100.9950, L3890.6006, L501.5101, L100.0100, L504.2610, L501.5200, L506.0200, L3410.9992, L101.9900, L3100.1350, L3200.1200, L503.6550, L3200.0500, L501.6710 #### [facility] [address], [place], [address] Sodium [Moles/Vol] 131 mmol/L Low 133-145 [facility] Comment on above: Performed By: #### L 503.0106, L500.4050, L501.1400, L400.0001, L503.6030, L3000.0800, L100.9950, L3890.6006, L501.5101, L100.0100, L504.2610, L501.5200, L506.0200, L3410.9992, L101.9900, L3100.1350, L3200.1200, L503.6550, L3200.0500, L501.6710 #### [facility] [address], [place], [id number] T PROT 8.2 g/dL Normal 5.9-8.4 [facility] Comment on above: Result Comment: AMENDED REPORT 08/27/251519 T PROT previously reported as: 8.4 g/dL Performed By: #### L 503.0106, L500.4050, L501.1400, L400.0001, L503.6030, L3000.0800, L100.9950, L3890.6006, L501.5101, L100.0100, L504.2610, L501.5200, L506.0200, L3410.9992, L101.9900, L3100.1350, L3200.1200, L503.6550, L3200.0500, L501.6710 #### [facility] [address], [place], [id number] Urea nitrogen [Mass/Vol] 27 mg/dL High 4-19 [facility] Comment on above: Result Comment: AMENDED REPORT 08/27/251519 BUN previously reported as: 28 H mg/dL Performed By: #### L 503.0106, L500.4050, L501.1400, L400.0001, L503.6030, L3000.0800, L100.9950, L3890.6006, L501.5101, L100.0100, L504.2610, L501.5200, L506.0200, L3410.9992, L101.9900, L3100.1350, L3200.1200, L503.6550, L3200.0500, L501.6710 #### [facility] [address] [place], [place], [id number] Eosinophil percentageOrdered By: Glen Chapman on 08-27-2025 Eosinophils/100 WBC (Bld) 2.2 % 0-5 [facility] Erythrocyte Sed Rateon 08-27 SED RATE 63 mm/hr High 0-30 [facility] Comment on above: Performed By: #### L 503.0106, L500.4050, L501.1400, L400.0001, L503.6030, L3000.0800, L100.9950, L3890.6006, L501.5101, L100.0100, L504.2610, L501.5200, L506.0200, L3410.9992, L101.9900, L3100.1350, L3200.1200, L503.6550, L3200.0500, L501.6710 #### [facility] [address] [facility] [place], [place], [address] Erythrocyte distribution wid th ratioOrdered By: Glen Chapman on 08-27-2025 Erythrocyte distribution width (RBC) [Ratio] 13.8 % 11.6-14.6 [facility] Erythrocyte distribution wid th standard deviationOrdered By: Glen Chapman on 08-27-2025 Erythrocyte distribution width (RBC) [Ratio] 39.8 fl 35.1-43.9 [facility] Erythrocyte sedimentation ra teOrdered By: Glen Chapman on 08-27-2025 ESR (Bld) [Velocity] 63 mm/h High 0-30 [facility] Ferritinon 08-27-2025 Ferritin [Mass/Vol] 872 ng/mL High 22-378 [facility] Comment on above: Result Comment: AMENDED REPORT 08/27/25 1520 FERRITIN previously reported as: 819 H ng/mL Performed By: #### L 503.0106, L500.4050, L501.1400, L400.0001, L503.6030, L3000.0800, L100.9950, L3890.6006, L501.5101, L100.0100, L504.2610, L501.5200, L506.0200, L3410.9992, L101.9900, L3100.1350, L3200.1200, L503.6550, L3200.0500, L501.6710 #### [facility] [address] [place], [address] Folate [Mass/volume] in Seru m or PlasmaOrdered By: Glen Chapman on 08-27-2025 Folate [Mass/Vol] 15.90 ng/mL 4.60-34.80 [facility] Folates,Serum (Folic Acid)on 08-27-2025 FOLATES,SERUM 15.90 ng/mL Normal 4.60-34.80 [facility] Comment on above: Order Comment: N Performed By: #### L 503.0106, L500.4050, L501.1400, L400.0001, L503.6030, L3000.0800, L100.9950, L3890.6006, L501.5101, L100.0100, L504.2610, L501.5200, L506.0200, L3410.9992, L101.9900, L3100.1350, L3200.1200, L503.6550, L3200.0500, L501.6710 #### [facility] [address] [place], [address] Gamma glutamyl transferase ( GGT) measurementOrdered By: Glen Chapman on 08-27-2025 Amylase [Catalytic activity/Vol] 62 U/L High 0-60 [facility] Comment on above: Performed at: [address] [id number] Director: Preston Ashley PhD, Phone: [phone] Glomerular filtration rate ( GFR) estimation/1.73 sq m using serum, plasma, or whole bOrdered By: Glen Chapman on 08-27-2025 GFR/1.73 sq M.predicted among non-blacks MDRD (S/P/Bld) [Vol rate/Area] 37 mL/min/{1.73_m2} Low >60 [facility] Comment on above: mL/min/1.73m2 CKD-EP I Creatinine Equation (2020) HIVon 08-27-2025 HIV Non-Reactive Normal Nonreactive [facility] Comment on above: Result Comment: Non- Reactive Reactive Repeatedly reactive samples must be confirmed according to CDC recommended confirmatory algorithms. The subresults for either HIVAG or AHIV can be used as an aid in the selection of the confirmation algorithm for reactive samples. Send out specimens with Reactive results to [facility] for confirmation. Order the HIV antibody detection and differentiation: [id number] Performed By: #### L 503.6005 #### [facility] [address] [place] [address]. [place], [address] Hematocrit Auto (Bld) [Volum e fraction]Ordered By: Glen Chapman on 08-27-2025 Hematocrit (Bld) [Volume fraction] 33.2 % Low 37-47 [facility] Hemoglobin measurementOrdere d By: Glen Chapman on 08-27-2025 Hemoglobin (Bld) [Mass/Vol] 11.3 g/dL Low 12.0-15. 0 [facility] Immature granulocytes/100 WB C Auto (Bld)Ordered By: Glen Chapman on 08-27-2025 Immature granulocytes/100 WBC (Bld) 2.200 % High 0.0-0.9 [facility] Comment on above: IG% - Immature Granu locytes (promyelocytes, myelocytes and metamyelocytes) > 1% indicates that a LEFT SHIFT is Present. Iron measurement (mass/mass) Ordered By: Glen Chapman on 08-27-2025 Iron (Unsp spec) [Mass/Mass] 125 ug/dL 50-170 [facility] Iron+Iron Binding Capacityon 08-27-2025 Iron [Mass/Vol] 125 ug/dL Normal 50-170 [facility] Comment on above: Performed By: #### L 503.6005 #### [facility] [address] [place], [place], [id number] IRON SATURATION 25.7 Normal 13-59 [facility] Comment on above: Performed By: #### L 503.6005 #### [facility] [address] [place], [place], [id number] UIBC 362 ug/dL Normal 228-428 [facility] Comment on above: Performed By: #### L 503.6005 #### [facility] [address] [place], [place], [id number] Ketones Test strip Ql (U)Ord ered By: Glen Chapman on 08-27-2025 Ketones Ql (U) Negative Negative [facility] LDHon 08-27-2025 LDH 125 U/L Normal 84-246 [facility] Comment on above: Order Comment: Y Performed By: #### L 503.6005 #### [facility] [address] [place], [place], [id number] Laboratory - Chemistry and C hemistry - challengeOrdered By: Glen Chapman on 08-27-2025 AST [Catalytic activity/Vol] 17 U/L <32 [facility] Comment on above: Previous reported re sult: 19 U/LEdited by: AUTOINS on 08/27/25:1520 AMENDED REPORT 08/27/25 1520 AST previously reported as: 19 U/L Lactate dehydrogenase (LDH) measurementOrdered By: Glen Chapman on 08-27-2025 LDH [Catalytic activity/Vol] 125 U/L 84-246 [facility] MCV (mean corpuscular volume ) determinationOrdered By: Glen Chapman on 08-27-2025 MCV (RBC) [Entitic vol] 80.0 fL Low 81-99 [facility] Magnesiumon 08-27-2025 Magnesium [Mass/Vol] 2.2 mg/dL Normal 1.5-2.2 [facility] Comment on above: Performed By: #### L 503.6005 #### [facility] [place], [address] Magnesium measurement (mass/ volume)Ordered By: Glen Chapman on 08-27-2025 Magnesium (Unsp spec) [Mass/Vol] 2.2 mg/dL 1.5-2.2 [facility] Mean corpuscular hemoglobin (MCH) determinationOrdered By: Glen Chapman on 08-27-2025 MCH (RBC) [Entitic mass] 27.2 pg 27.0-32.0 [facility] Mean corpuscular hemoglobin concentration (MCHC) determinationOrdered By: Glen Chapman on 08-27-2025 MCHC (RBC) [Mass/Vol] 34.0 g/dL 32-36 [facility] Mean platelet volume determi nationOrdered By: Glen Chapman on 08-27-2025 Platelet mean volume (Bld) [Entitic vol] 9.5 fL 6.2-12.0 [facility] Microscopic analysis of urin e for red blood cells (RBC)Ordered By: Glen Chapman on 08-27-2025 Microscopic analysis of urine for red blood cells (RBC) 0 SEEN /hpf 0-5 [facility] Monocyte percentageOrdered B y: Glen Chapman on 08-27-2025 Monocytes/100 WBC (Bld) 6.2 % 0-10 [facility] Mucus LM Ql (Urine sed)Order ed By: Glen Chapman on 08-27-2025 Mucus Ql (Urine sed) 0 SEEN /hpf [facility] Neutrophil percentageOrdered By: Glen Chapman on 08-27-2025 Neutrophils/100 WBC (Bld) 71.6 % High 47-70 [facility] Nitrite Test strip Ql (U)Ord ered By: Glen Chapman on 08-27-2025 Nitrite Ql (U) Negative Negative [facility] No Panel InformationOrdered By: Glen Chapman on 08-27-2025 Hepatitis C Antibody Comment Comment . [facility] Comment on above: Not infected with HC V unless early or acute infection issuspected (which may be delayed in an immunocompromisedindividual), or other evidence exists to indicate HCVinfection. Hepatitis Interpretation Comment . [facility] Comment on above: HBV Serology Interpr etation [...] acute infection. HIV (1&2) Antibody Non-Reactive Nonreactive [facility] Comment on above: Non-ReactiveReactive Repeatedly reactive samples must be confirmed according to CDC recommended confirmatory algorithms. The subresults for either HIVAG or AHIV can be used as an aid in the selection of the confirmation algorithm for reactive samples.Send out specimens with Reactive results to [facility] for confirmation.Order the HIV antibody detection and differentiation: #[id number] Unsaturated Iron Binding Capacity 362 ug/dL 228-428 [facility] 17 U/L <32 [facility] 362 ug/dL 228-428 [facility] Comment . [facility] Non-Reactive Nonreactive [facility] Nucleated red blood cell per centageOrdered By: Glen Chapman on 08-27-2025 Nucleated RBC/100 WBC (Bld) [Ratio] 0 % 0-5 [facility] Oncology Visit Reporton 08-15 Oncology Visit Report [facility] [address] [place] [address] OFFICE VISIT Date of Service: 08/27/25 1121 MR#: [id number] Acct: [id number] Name: HEIDI ANDREWS Rep #: [id number] : 1970 From: Glen Chapman MD Age/Sex: 55/F Location: [facility] Status: Signed HPI Subjective Date [...] follow up. Feels tired, sleeps a lot. [facility], [facility] Medical History Sleep apnea Wears glasses [...] vitamins, R (more content not included)... Normal [facility] Platelet countOrdered By: Jaimee Chapman on 08-27-2025 Platelets (Bld) [#/Vol] 333 10*3/uL 150-450 [facility] Potassium measurement (mass/ volume)Ordered By: Glen Chapman on 08-27-2025 Potassium (Unsp spec) [Mass/Vol] 4.0 mmol/L 3.3-5.1 [facility] Protein Test strip Ql (U)Ord ered By: Glen Chapman on 08-27-2025 Protein Ql (U) 30 mg/dl High Negative [facility] RBC Auto (Bld) [#/Vol]Ordere d By: Glen Chapman on 08-27-2025 RBC (Bld) [#/Vol] 4.15 10*6/uL Low 4.2-5.4 [facility] Retic Panelon 08-27-2025 IM RET FRACTION 12.30 Normal 3.00-15.90 [facility] Comment on above: Performed By: #### L 503.0106, L500.4050, L501.1400, L400.0001, L503.6030, L3000.0800, L100.9950, L3890.6006, L501.5101, L100.0100, L504.2610, L501.5200, L506.0200, L3410.9992, L101.9900, L3100.1350, L3200.1200, L503.6550, L3200.0500, L501.6710 #### [facility] [address] [place], [place], [id number] RET-HE 29.5 pg Low 30-35 [facility] Comment on above: Performed By: #### L 503.0106, L500.4050, L501.1400, L400.0001, L503.6030, L3000.0800, L100.9950, L3890.6006, L501.5101, L100.0100, L504.2610, L501.5200, L506.0200, L3410.9992, L101.9900, L3100.1350, L3200.1200, L503.6550, L3200.0500, L501.6710 #### [facility] [address] [place], [address] Retic Count 1.38 Normal 0.5-1.5 [facility] Comment on above: Performed By: #### L 503.0106, L500.4050, L501.1400, L400.0001, L503.6030, L3000.0800, L100.9950, L3890.6006, L501.5101, L100.0100, L504.2610, L501.5200, L506.0200, L3410.9992, L101.9900, L3100.1350, L3200.1200, L503.6550, L3200.0500, L501.6710 #### [facility] [address] [place], [place], [id number] Reticulocyte hemoglobin equi valent (RET-He) measurementOrdered By: Glen Chapman on 08-27-2025 Hemoglobin (Reticulocytes) [Entitic mass] 29.5 pg Low 30-35 [facility] Reticulocytes Auto (Bld) [#/ Vol]Ordered By: Glen Chapman on 08-27-2025 Reticulocytes/100 RBC (Bld) 1.38 % 0.5-1.5 [facility] Serum IgG subclass 1 measure ment (mass/volume)Ordered By: Glen Chapman on 08-27-2025 IgG subclass 1 (S) [Mass/Vol] 334 mg/dL 248-810 [facility] Serum IgG subclass 2 measure ment (mass/volume)Ordered By: Glen Chapman on 08-27-2025 IgG subclass 2 (S) [Mass/Vol] 281 mg/dL 130-555 [facility] Serum IgG subclass 3 measure ment (mass/volume)Ordered By: Glen Chapman on 08-27-2025 IgG subclass 3 (S) [Mass/Vol] 51 mg/dL 15-102 [facility] Serum creatinine measurement (mass/volume)Ordered By: Glen Chapman on 08-27-2025 Creatinine [Mass/Vol] 1.58 mg/dL High 0.70-1.20 [facility] Comment on above: Previous reported re sult: 1.65 mg/dLEdited by: CRISTA on 08/27/25:1520 AMENDED REPORT 08/27/25 1520 CREAT,SERUM previously reported as: 1.65 H mg/dL Serum globulin measurementOr dered By: Glen Chapman on 08-27-2025 Globulin (S) [Mass/Vol] 3.7 g/dL 2.2-4.2 [facility] Comment on above: Previous reported re sult: 3.8 g/dLEdited by: CRISTA on 08/27/25:1520 AMENDED REPORT 08/27/25 1520 GLOB previously reported as: 3.8 g/dL Serum glucose measurement (m ass/volume)Ordered By: Glen Chapman on 08-27-2025 Glucose [Mass/Vol] 161 mg/dL High 70-99 [facility] Comment on above: Previous reported re sult: 165 mg/dLEdited by: CRISTA on 08/27/25:1520 AMENDED REPORT 08/27/25 1520 GLU previously reported as: 165 H mg/dL Serum hepatitis B virus core antibody detectionOrdered By: Glen Chapman on 08-27-2025 HBV core Ab Ql (S) Negative Negative [facility] Serum or plasma C reactive p rotein measurement (mass/volume)Ordered By: Glen Chapman on 08-27-2025 CRP [Mass/Vol] 18.30 mg/L High 0.0-3.0 [facility] Serum or plasma IgA measurem ent (mass/volume)Ordered By: Glen Chapman on 08-27-2025 IgA [Mass/Vol] 72 mg/dL Low 87-352 [facility] Serum or plasma IgG measurem ent (mass/volume)Ordered By: Glen Chapman on 08-27-2025 IgG [Mass/Vol] 718 mg/dL 586-1602 [facility] IgG [Mass/Vol] Not Reportable [facility] Serum or plasma alanine cueto otransferase (ALT) measurementOrdered By: Glen Chapman on 08-27-2025 ALT [Catalytic activity/Vol] 8 U/L <35 [facility] Comment on above: Previous reported re sult: 9 U/LEdited by: CRISTA on 08/27/25:1520 AMENDED REPORT 08/27/25 152 ALT previously reported as: 9 U/L Serum or plasma albumin sandy urement (mass/volume)Ordered By: Glen Chapman on 08-27-2025 Albumin [Mass/Vol] 4.6 g/dL 3.5-5.0 [facility] Serum or plasma albumin/glob ulin mass ratioOrdered By: Glen Chapman on 08-27-2025 Albumin/Globulin [Mass ratio] 1.2 {ratio} 0.9-2.4 [facility] Comment on above: Previous reported re sult: 1.2 RATIOEdited by: CRISTA on 08/27/25:1520 AMENDED REPORT 08/27/25 1520 A/G previously reported as: 1.2 [facility] Serum or plasma alkaline rebecca sphatase measurementOrdered By: Glen Chapman on 08-27-2025 ALP [Catalytic activity/Vol] 194 U/L High 35-104 [facility] Comment on above: Previous reported re sult: 196 U/LEdited by: CRISTA on 08/27/25:1520 AMENDED REPORT 08/27/25 1520 ALK P previously reported as: 196 H U/L Serum or plasma calcium sandy urement (mass/volume)Ordered By: Glen Chapman on 08-27-2025 Calcium [Mass/Vol] 10.5 mg/dL 7.6-11.0 [facility] Serum or plasma erythropoiet in (EPO) measurement (units/volume)Ordered By: Glen Chapman on 08-27-2025 Erythropoietin (EPO) Qn 9.5 mIU/mL 2.6-18.5 [facility] Comment on above: [employer] D[employer]I 800 Immunoassay SystemValues obtained with different assay methods or kits cannotbe used interchangeably. Results cannot be interpreted asabsolute evidence of the presence or absence of malignantdisease. Serum or plasma ferritin darrel surement (mass/volume)Ordered By: Glen Chapman on 08-27-2025 Ferritin [Mass/Vol] 872 ng/mL High 22-378 [facility] Comment on above: Previous reported re sult: 819 ng/mLEdited by: CRISTA on 08/27/25:1520 AMENDED REPORT 08/27/25 1520 FERRITIN previously reported as: 819 H ng/mL Serum or plasma hepatitis B virus surface antigen detection by immunoassayOrdered By: Glen Chapman on 08-27-2025 HBV surface Ag IA Ql Negative Negative [facility] Serum or plasma iron saturat ion measurement (mass fraction)Ordered By: Glen Chapman on 08-27-2025 Iron saturation [Mass fraction] 25.7 % 13-59 [facility] Serum or plasma urea nitroge n measurement (mass/volume)Ordered By: Glen Chapman on 08-27-2025 Urea nitrogen [Mass/Vol] 27 mg/dL High 4-19 [facility] Comment on above: Previous reported re sult: 28 mg/dLEdited by: CRISTA on 08/27/25:1520 AMENDED REPORT 08/27/25 1520 BUN previously reported as: 28 H mg/dL Serum or plasma uric acid me asurement (mass/volume)Ordered By: Glen Chapman on 08-27-2025 Urate [Mass/Vol] 9.8 mg/dL High 2.6-6.0 [facility] Comment on above: The drugs N-Acetylcy steine and Metamizole may falsely depress this assay. Sodium levelOrdered By: Cy Chapman on 08-27-2025 Sodium [Moles/Vol] 131 mmol/L Low 133-145 [facility] Squamous epithelial cells de tection in urine sediment by light microscopyOrdered By: Glen Chapman on 08-27-2025 Epithelial cells.squamous LM Ql (Urine sed) 10-25 SEEN /hpf - [facility] Total proteinOrdered By: Vasquez Chapman on 08-27-2025 Protein [Mass/Vol] 8.2 g/dL 5.9-8.4 [facility] Comment on above: Previous reported re sult: 8.4 g/dLEdited by: CRISTA on 08/27/25:1520 AMENDED REPORT 08/27/25 1520 T PROT previously reported as: 8.4 g/dL Uric Acidon 08-27-2025 URIC 9.8 mg/dL High 2.6-6.0 [facility] Comment on above: Result Comment: The drugs N-Acetylcysteine and Metamizole may falsely depress this assay. Performed By: #### L 503.6005 #### [facility] [address] [place], [address] Urinalysis, Completeon 08-27 BACTERIA 2+ /hpf Normal None Seen [facility] Comment on above: Order Comment: COLLE CTOR TO SPECIFY Performed By: #### L 503.0106, L500.4050, L501.1400, L400.0001, L503.6030, L3000.0800, L100.9950, L3890.6006, L501.5101, L100.0100, L504.2610, L501.5200, L506.0200, L3410.9992, L101.9900, L3100.1350, L3200.1200, L503.6550, L3200.0500, L501.6710 #### [facility] [address] [place], [address] EPI,SQUAMOUS 10-25 SEEN Normal 03-24 [facility] Comment on above: Order Comment: COLLE CTOR TO SPECIFY Performed By: #### L 503.0106, L500.4050, L501.1400, L400.0001, L503.6030, L3000.0800, L100.9950, L3890.6006, L501.5101, L100.0100, L504.2610, L501.5200, L506.0200, L3410.9992, L101.9900, L3100.1350, L3200.1200, L503.6550, L3200.0500, L501.6710 #### [facility] [address] [place], [place], [id number] WBC 5-10 SEEN Normal 0-5 [facility] Comment on above: Order Comment: COLLE CTOR TO SPECIFY Performed By: #### L 503.0106, L500.4050, L501.1400, L400.0001, L503.6030, L3000.0800, L100.9950, L3890.6006, L501.5101, L100.0100, L504.2610, L501.5200, L506.0200, L3410.9992, L101.9900, L3100.1350, L3200.1200, L503.6550, L3200.0500, L501.6710 #### [facility] [address] [place], [place], [id number] Mucus Ql (Urine sed) 0 SEEN Normal [facility] Comment on above: Order Comment: MADHAVI CTOR TO SPECIFY Performed By: #### L 503.0106, L500.4050, L501.1400, L400.0001, L503.6030, L3000.0800, L100.9950, L3890.6006, L501.5101, L100.0100, L504.2610, L501.5200, L506.0200, L3410.9992, L101.9900, L3100.1350, L3200.1200, L503.6550, L3200.0500, L501.6710 #### [facility] [address] [place], [place], [id number] RBC 0 SEEN Normal 0-5 [facility] Comment on above: Order Comment: COLLE CTOR TO SPECIFY Performed By: #### L 503.0106, L500.4050, L501.1400, L400.0001, L503.6030, L3000.0800, L100.9950, L3890.6006, L501.5101, L100.0100, L504.2610, L501.5200, L506.0200, L3410.9992, L101.9900, L3100.1350, L3200.1200, L503.6550, L3200.0500, L501.6710 #### [facility] [place], [address] Urine clarityOrdered By: Vasquez Chapman on 08-27-2025 Clarity (U) Cloudy Clear [facility] Urine color determinationOrd ered By: Glen Chapman on 08-27-2025 Color (U) Yellow Yellow [facility] Urine glucose detectionOrder ed By: Glen Chapman on 08-27-2025 Glucose Ql (U) Normal mg/dl Normal [facility] Urine leukocyte esterase det ection by dipstickOrdered By: Glen Chapman on 08-27-2025 Leukocyte esterase Test strip Ql (U) 25 /ul High Negative [facility] Urine pHOrdered By: Glen sena on 08-27-2025 pH (U) 5.0 [pH] 5.0 - 8.0 [facility] Urine sediment bacteria coun t by microscopy (number/high power field)Ordered By: Glen Chapman on 08-27-2025 Bacteria LM.HPF (Urine sed) [#/Area] 2 /[HPF] None Seen [facility] Urine specific gravity measu rementOrdered By: Glen Chapman on 08-27-2025 Specific gravity (U) [Rel density] 1.015 1.002-1.030 [facility] Urine urobilinogen measureme ntOrdered By: Glen Chapman on 08-27-2025 Urobilinogen Ql (U) Normal mg/dl Normal [facility] Vitamin B12on 08-27-2025 Cobalamin (Vitamin B12) [Mass/Vol] 718 pg/mL Normal 180-914 [facility] Comment on above: Result Comment: AMENDED REPORT 08/27/25 1520 Vitamin B12 previously reported as: 715 pg/mL Performed By: #### L 503.0106, L500.4050, L501.1400, L400.0001, L503.6030, L3000.0800, L100.9950, L3890.6006, L501.5101, L100.0100, L504.2610, L501.5200, L506.0200, L3410.9992, L101.9900, L3100.1350, L3200.1200, L503.6550, L3200.0500, L501.6710 #### [facility] [address] [place], [place], [id number] Vitamin B12 ser/plasOrdered By: Glen Chapman on 08-27-2025 Cobalamin (Vitamin B12) [Mass/Vol] 718 pg/mL 180-914 [facility] Comment on above: Previous reported re sult: 715 pg/mLEdited by: CRISTA on 08/27/25:1520 AMENDED REPORT 08/27/25 1520 Vitamin B12 previously reported as: 715 pg/mL White blood cell (WBC) count Ordered By: Glen Chapman on 08-27-2025 WBC (Bld) [#/Vol] 7.4 10*3/uL 4.4-11.0 [facility] White blood cell countOrdere d By: Glen Chapman on 08-27-2025 White blood cell count 5-10 SEEN /hpf 0-5 [facility] Absolute lymphocyte countOrd ered By: Glen Chapman on 08-22-2025 Lymphocytes Auto (Unsp spec) [#/Vol] 0.84 10*3/uL 0.83-4.51 [facility] Absolute neutrophil countOrd ered By: Glen Chapamn on 08-22-2025 Neutrophils (Bld) [#/Vol] 8.6 10*3/uL High 2.0-7.7 [facility] Anion gap in Serum or Plasma Ordered By: Glen Chapman on 08-22-2025 Anion gap [Moles/Vol] 20 mmol/L High 5-15 [facility] Automated lymphocyte count a s percentage of total leukocytesOrdered By: Glen Chapman on 08-22-2025 Lymphocytes/100 WBC Auto (Unsp spec) 8.1 % Low 19-41 [facility] BUN/creatinine ratioOrdered By: Glen Chapman on 08-22-2025 Urea nitrogen/Creatinine [Mass ratio] 16.0 mg/mg - [facility] Basic Metabolic Profile (BMP )on 08-22-2025 BUN Normal 4-19 [facility] Comment on above: Order Comment: Order Date: 08/20/25Order Info: 666-1 - BMP Result Comment: DUPL ICATE Performed By: #### L 503.0106, L500.4050, L501.1400, L400.0001, L503.6030, L3000.0800, L100.9950, L3890.6006, L501.5101, L100.0100, L504.2610, L501.5200, L506.0200, L3410.9992, L101.9900, L3100.1350, L3200.1200, L503.6550, L3200.0500, L501.6710 #### [facility] [address] [place], [place], [phone] (875) BUN/CRE Normal 09-03 [facility] Comment on above: Order Comment: Order Date: 08/20/25Order Info: 0667-1 - BMP Result Comment: DUPL ICATE Performed By: #### L 503.0106, L500.4050, L501.1400, L400.0001, L503.6030, L3000.0800, L100.9950, L3890.6006, L501.5101, L100.0100, L504.2610, L501.5200, L506.0200, L3410.9992, L101.9900, L3100.1350, L3200.1200, L503.6550, L3200.0500, L501.6710 #### [facility] [address] [place], [place], [phone] (787) Calcium Normal 7.6-11.0 [facility] Comment on above: Order Comment: Order Date: 08/20/25Order Info: 0667-1 - BMP Result Comment: DUPL ICATE Performed By: #### L 503.0106, L500.4050, L501.1400, L400.0001, L503.6030, L3000.0800, L100.9950, L3890.6006, L501.5101, L100.0100, L504.2610, L501.5200, L506.0200, L3410.9992, L101.9900, L3100.1350, L3200.1200, L503.6550, L3200.0500, L501.6710 #### [facility] [address] [place], [place], [id number] CL Normal 98-108 [facility] Comment on above: Order Comment: Order Date: 08/20/25Order Info: 0667-1 - BMP Result Comment: DUPL ICATE Performed By: #### L 503.0106, L500.4050, L501.1400, L400.0001, L503.6030, L3000.0800, L100.9950, L3890.6006, L501.5101, L100.0100, L504.2610, L501.5200, L506.0200, L3410.9992, L101.9900, L3100.1350, L3200.1200, L503.6550, L3200.0500, L501.6710 #### [facility] [address] [place], [address] CO2 Normal 21.0-32.0 [facility] Comment on above: Order Comment: Order Date: 08/20/25Order Info: 0667-1 - BMP Result Comment: DUPL ICATE Performed By: #### L 503.0106, L500.4050, L501.1400, L400.0001, L503.6030, L3000.0800, L100.9950, L3890.6006, L501.5101, L100.0100, L504.2610, L501.5200, L506.0200, L3410.9992, L101.9900, L3100.1350, L3200.1200, L503.6550, L3200.0500, L501.6710 #### [facility] [address] [place], [place], [phone] (457) CREAT,SERUM Normal 0.70-1.20 [facility] Comment on above: Order Comment: Order Date: 08/20/25Order Info: 0667-1 - BMP Result Comment: DUPL ICATE Performed By: #### L 503.0106, L500.4050, L501.1400, L400.0001, L503.6030, L3000.0800, L100.9950, L3890.6006, L501.5101, L100.0100, L504.2610, L501.5200, L506.0200, L3410.9992, L101.9900, L3100.1350, L3200.1200, L503.6550, L3200.0500, L501.6710 #### [facility] [address] [place], [place], [phone] (340) eGFR Normal >60 [facility] Comment on above: Order Comment: Order Date: 08/20/25Order Info: 0667-1 - BMP Result Comment: DUPL ICATE Performed By: #### L 503.0106, L500.4050, L501.1400, L400.0001, L503.6030, L3000.0800, L100.9950, L3890.6006, L501.5101, L100.0100, L504.2610, L501.5200, L506.0200, L3410.9992, L101.9900, L3100.1350, L3200.1200, L503.6550, L3200.0500, L501.6710 #### [facility] [address] [place], [place], [phone] (903) GAP Normal 5-15 [facility] Comment on above: Order Comment: Order Date: 08/20/25Order Info: 0667-1 - BMP Result Comment: DUPL ICATE Performed By: #### L 503.0106, L500.4050, L501.1400, L400.0001, L503.6030, L3000.0800, L100.9950, L3890.6006, L501.5101, L100.0100, L504.2610, L501.5200, L506.0200, L3410.9992, L101.9900, L3100.1350, L3200.1200, L503.6550, L3200.0500, L501.6710 #### [facility] [address] [place], [place], [id number] GLU Normal 70-99 [facility] Comment on above: Order Comment: Order Date: 08/20/25Order Info: 0667-1 - BMP Result Comment: DUPL ICATE Performed By: #### L 503.0106, L500.4050, L501.1400, L400.0001, L503.6030, L3000.0800, L100.9950, L3890.6006, L501.5101, L100.0100, L504.2610, L501.5200, L506.0200, L3410.9992, L101.9900, L3100.1350, L3200.1200, L503.6550, L3200.0500, L501.6710 #### [facility] [address] [place], [place], [address] Potassium Normal 3.3-5.1 [facility] Comment on above: Order Comment: Order Date: 08/20/25Order Info: 0667-1 - BMP Result Comment: DUPL ICATE Performed By: #### L 503.0106, L500.4050, L501.1400, L400.0001, L503.6030, L3000.0800, L100.9950, L3890.6006, L501.5101, L100.0100, L504.2610, L501.5200, L506.0200, L3410.9992, L101.9900, L3100.1350, L3200.1200, L503.6550, L3200.0500, L501.6710 #### [facility] [address] [place], [place], [id number] Basic Metabolic Profile (BMP) Normal 133-145 [facility] Comment on above: Order Comment: Order Date: 08/20/25Order Info: 0667-1 - BMP Result Comment: DUPL ICATE Performed By: #### L 503.0106, L500.4050, L501.1400, L400.0001, L503.6030, L3000.0800, L100.9950, L3890.6006, L501.5101, L100.0100, L504.2610, L501.5200, L506.0200, L3410.9992, L101.9900, L3100.1350, L3200.1200, L503.6550, L3200.0500, L501.6710 #### [facility] [address] [place], [place], [id number] Basophil percentageOrdered B y: Glen Cahpman on 08-22-2025 Basophils/100 WBC (Bld) 0.4 % 0-1 [facility] Bilirubin, totalOrdered By: Glen Chapman on 08-22-2025 Bilirubin [Mass/Vol] 0.79 mg/dL 0.00-1.30 [facility] CBC W/Diff, Automatedon 10-0 Anisocytosis Ql (Bld) 1+ Normal [facility] Comment on above: Performed By: #### L 503.0106, L500.4050, L501.1400, L400.0001, L503.6030, L3000.0800, L100.9950, L3890.6006, L501.5101, L100.0100, L504.2610, L501.5200, L506.0200, L3410.9992, L101.9900, L3100.1350, L3200.1200, L503.6550, L3200.0500, L501.6710 #### [facility] [address] [place], [address] CRPon 08-22-2025 C-REACTIVE PROT 129.00 mg/L High 0.0-3.0 [facility] Comment on above: Order Comment: Y Performed By: #### L 503.6005 #### [facility] [address] [place], [place], [id number] Carbon dioxide, total [Moles /volume] in Central venous bloodOrdered By: Glen Chapman on 08-22-2025 CO2 [Moles/Vol] 23.7 mmol/L 21.0-32.0 [facility] Chloride assayOrdered By: Jaimee Chapman on 08-22-2025 Chloride [Moles/Vol] 89 mmol/L Low 98-108 [facility] Comprehensive Metabolic Prof ilon 08-22-2025 Albumin [Mass/Vol] 4.1 g/dL Normal 3.5-5.0 [facility] Comment on above: Order Comment: CMP A ND CBCD GO TO DR. PEREZ ALL OTHER LABS GOT TO Performed By: #### L 503.0106, L500.4050, L501.1400, L400.0001, L503.6030, L3000.0800, L100.9950, L3890.6006, L501.5101, L100.0100, L504.2610, L501.5200, L506.0200, L3410.9992, L101.9900, L3100.1350, L3200.1200, L503.6550, L3200.0500, L501.6710 #### [facility] [address] [place], [place], [address] Albumin/Globulin [Mass ratio] 1.0 {ratio} Normal 0.9-2.4 [facility] Comment on above: Order Comment: CMP A ND CBCD GO TO DR. PEREZ ALL OTHER LABS GOT TO Performed By: #### L 503.0106, L500.4050, L501.1400, L400.0001, L503.6030, L3000.0800, L100.9950, L3890.6006, L501.5101, L100.0100, L504.2610, L501.5200, L506.0200, L3410.9992, L101.9900, L3100.1350, L3200.1200, L503.6550, L3200.0500, L501.6710 #### [facility] [address] [place], [place], [id number] ALK PHOS 243 U/L High 35-104 [facility] Comment on above: Order Comment: CMP A ND CBCD GO TO DR. PEREZ ALL OTHER LABS GOT TO Performed By: #### L 503.0106, L500.4050, L501.1400, L400.0001, L503.6030, L3000.0800, L100.9950, L3890.6006, L501.5101, L100.0100, L504.2610, L501.5200, L506.0200, L3410.9992, L101.9900, L3100.1350, L3200.1200, L503.6550, L3200.0500, L501.6710 #### [facility] [address] [facility] [place], [place], [address] ALT [Catalytic activity/Vol] 12 U/L Normal <=34 [facility] Comment on above: Order Comment: CMP A ND CBCD GO TO DR. PEREZ ALL OTHER LABS GOT TO Performed By: #### L 503.0106, L500.4050, L501.1400, L400.0001, L503.6030, L3000.0800, L100.9950, L3890.6006, L501.5101, L100.0100, L504.2610, L501.5200, L506.0200, L3410.9992, L101.9900, L3100.1350, L3200.1200, L503.6550, L3200.0500, L501.6710 #### [facility] [address] [place], [address] AST [Catalytic activity/Vol] 27 U/L Normal <=31 [facility] Comment on above: Order Comment: CMP A ND CBCD GO TO DR. PEREZ ALL OTHER LABS GOT TO Performed By: #### L 503.0106, L500.4050, L501.1400, L400.0001, L503.6030, L3000.0800, L100.9950, L3890.6006, L501.5101, L100.0100, L504.2610, L501.5200, L506.0200, L3410.9992, L101.9900, L3100.1350, L3200.1200, L503.6550, L3200.0500, L501.6710 #### [facility] [address] [place], [place], [address] Bilirubin [Mass/Vol] 0.79 mg/dL Normal 0.00-1.30 [facility] Comment on above: Order Comment: CMP A ND CBCD GO TO DR. PEREZ ALL OTHER LABS GOT TO Performed By: #### L 503.0106, L500.4050, L501.1400, L400.0001, L503.6030, L3000.0800, L100.9950, L3890.6006, L501.5101, L100.0100, L504.2610, L501.5200, L506.0200, L3410.9992, L101.9900, L3100.1350, L3200.1200, L503.6550, L3200.0500, L501.6710 #### [facility] [address] [place], [address] BUN/CRE 16.0 RATIO Normal 10-20 [facility] Comment on above: Order Comment: CMP A ND CBCD GO TO DR. PEREZ ALL OTHER LABS GOT TO Performed By: #### L 503.0106, L500.4050, L501.1400, L400.0001, L503.6030, L3000.0800, L100.9950, L3890.6006, L501.5101, L100.0100, L504.2610, L501.5200, L506.0200, L3410.9992, L101.9900, L3100.1350, L3200.1200, L503.6550, L3200.0500, L501.6710 #### [facility] [address] [place], [place], [address] Calcium [Mass/Vol] 10.3 mg/dL Normal 7.6-11.0 [facility] Comment on above: Order Comment: CMP A ND CBCD GO TO DR. PEREZ ALL OTHER LABS GOT TO Performed By: #### L 503.0106, L500.4050, L501.1400, L400.0001, L503.6030, L3000.0800, L100.9950, L3890.6006, L501.5101, L100.0100, L504.2610, L501.5200, L506.0200, L3410.9992, L101.9900, L3100.1350, L3200.1200, L503.6550, L3200.0500, L501.6710 #### [facility] [address] [place], [place], [address] Chloride [Moles/Vol] 89 mmol/L Low 98-108 [facility] Comment on above: Order Comment: CMP A ND CBCD GO TO DR. PEREZ ALL OTHER LABS GOT TO Performed By: #### L 503.0106, L500.4050, L501.1400, L400.0001, L503.6030, L3000.0800, L100.9950, L3890.6006, L501.5101, L100.0100, L504.2610, L501.5200, L506.0200, L3410.9992, L101.9900, L3100.1350, L3200.1200, L503.6550, L3200.0500, L501.6710 #### [facility] [address] [place], [place], [id number] CO2 [Moles/Vol] 23.7 mmol/L Normal 21.0-32.0 [facility] Comment on above: Order Comment: CMP A ND CBCD GO TO DR. PEREZ ALL OTHER LABS GOT TO Performed By: #### L 503.0106, L500.4050, L501.1400, L400.0001, L503.6030, L3000.0800, L100.9950, L3890.6006, L501.5101, L100.0100, L504.2610, L501.5200, L506.0200, L3410.9992, L101.9900, L3100.1350, L3200.1200, L503.6550, L3200.0500, L501.6710 #### [facility] [address] [place], [place], [address] Creatinine [Mass/Vol] 1.39 mg/dL High 0.70-1.20 [facility] Comment on above: Order Comment: CMP A ND CBCD GO TO DR. PEREZ ALL OTHER LABS GOT TO Performed By: #### L 503.0106, L500.4050, L501.1400, L400.0001, L503.6030, L3000.0800, L100.9950, L3890.6006, L501.5101, L100.0100, L504.2610, L501.5200, L506.0200, L3410.9992, L101.9900, L3100.1350, L3200.1200, L503.6550, L3200.0500, L501.6710 #### [facility] [address], [place], [id number] GAP 20 High 5-15 [facility] Comment on above: Order Comment: CMP A ND CBCD GO TO DR. PEREZ ALL OTHER LABS GOT TO Performed By: #### L 503.0106, L500.4050, L501.1400, L400.0001, L503.6030, L3000.0800, L100.9950, L3890.6006, L501.5101, L100.0100, L504.2610, L501.5200, L506.0200, L3410.9992, L101.9900, L3100.1350, L3200.1200, L503.6550, L3200.0500, L501.6710 #### [facility] [address] [facility] [place], [address] GFR/1.73 sq M.predicted among non-blacks MDRD (S/P/Bld) [Vol rate/Area] 45 mL/min/{1.73_m2} Low >60 [facility] Comment on above: Order Comment: CMP A ND CBCD GO TO DR. PEREZ ALL OTHER LABS GOT TO Result Comment: mL/m in/1.73m2 CKD-EPI Creatinine Equation (2020) Performed By: #### L 503.0106, L500.4050, L501.1400, L400.0001, L503.6030, L3000.0800, L100.9950, L3890.6006, L501.5101, L100.0100, L504.2610, L501.5200, L506.0200, L3410.9992, L101.9900, L3100.1350, L3200.1200, L503.6550, L3200.0500, L501.6710 #### [facility] [address] [facility] [place], [address] Globulin (S) [Mass/Vol] 4.1 g/dL Normal 2.2-4.2 [facility] Comment on above: Order Comment: CMP A ND CBCD GO TO DR. PEREZ ALL OTHER LABS GOT TO Performed By: #### L 503.0106, L500.4050, L501.1400, L400.0001, L503.6030, L3000.0800, L100.9950, L3890.6006, L501.5101, L100.0100, L504.2610, L501.5200, L506.0200, L3410.9992, L101.9900, L3100.1350, L3200.1200, L503.6550, L3200.0500, L501.6710 #### [facility] [address], [place], [address] Glucose [Mass/Vol] 193 mg/dL High 70-99 [facility] Comment on above: Order Comment: CMP A ND CBCD GO TO DR. PEREZ ALL OTHER LABS GOT TO Performed By: #### L 503.0106, L500.4050, L501.1400, L400.0001, L503.6030, L3000.0800, L100.9950, L3890.6006, L501.5101, L100.0100, L504.2610, L501.5200, L506.0200, L3410.9992, L101.9900, L3100.1350, L3200.1200, L503.6550, L3200.0500, L501.6710 #### [facility] [address] [place], [place], [address] Potassium [Moles/Vol] 3.2 mmol/L Low 3.3-5.1 [facility] Comment on above: Order Comment: CMP A ND CBCD GO TO DR. PEREZ ALL OTHER LABS GOT TO Performed By: #### L 503.0106, L500.4050, L501.1400, L400.0001, L503.6030, L3000.0800, L100.9950, L3890.6006, L501.5101, L100.0100, L504.2610, L501.5200, L506.0200, L3410.9992, L101.9900, L3100.1350, L3200.1200, L503.6550, L3200.0500, L501.6710 #### [facility] [address] [place], [place], [address] Sodium [Moles/Vol] 132 mmol/L Low 133-145 [facility] Comment on above: Order Comment: CMP A ND CBCD GO TO DR. PEREZ ALL OTHER LABS GOT TO Performed By: #### L 503.0106, L500.4050, L501.1400, L400.0001, L503.6030, L3000.0800, L100.9950, L3890.6006, L501.5101, L100.0100, L504.2610, L501.5200, L506.0200, L3410.9992, L101.9900, L3100.1350, L3200.1200, L503.6550, L3200.0500, L501.6710 #### [facility] [address] [place], [address] T PROT 8.2 g/dL Normal 5.9-8.4 [facility] Comment on above: Order Comment: CMP A ND CBCD GO TO DR. PEREZ ALL OTHER LABS GOT TO Performed By: #### L 503.0106, L500.4050, L501.1400, L400.0001, L503.6030, L3000.0800, L100.9950, L3890.6006, L501.5101, L100.0100, L504.2610, L501.5200, L506.0200, L3410.9992, L101.9900, L3100.1350, L3200.1200, L503.6550, L3200.0500, L501.6710 #### [facility] [address] [place], [place], [address] Urea nitrogen [Mass/Vol] 22 mg/dL High 4-19 [facility] Comment on above: Order Comment: CMP A ND CBCD GO TO DR. PEREZ ALL OTHER LABS GOT TO Performed By: #### L 503.0106, L500.4050, L501.1400, L400.0001, L503.6030, L3000.0800, L100.9950, L3890.6006, L501.5101, L100.0100, L504.2610, L501.5200, L506.0200, L3410.9992, L101.9900, L3100.1350, L3200.1200, L503.6550, L3200.0500, L501.6710 #### [facility] [address] [place], [address] Eosinophil percentageOrdered By: Glen Chapman on 08-22-2025 Eosinophils/100 WBC (Bld) 0.6 % 0-5 [facility] Erythrocyte Sed Rateon 08-22 SED RATE 74 mm/hr High 0-30 [facility] Comment on above: Performed By: #### L 503.6005 #### [facility] [address] [place], [address] Erythrocyte distribution wid th ratioOrdered By: Glen Ari on 08-22-2025 Erythrocyte distribution width (RBC) [Ratio] 13.4 % 11.6-14.6 [facility] Erythrocyte distribution wid th standard deviationOrdered By: Glen Chapman on 08-22-2025 Erythrocyte distribution width (RBC) [Ratio] 38.8 fl 35.1-43.9 [facility] Erythrocyte sedimentation ra teOrdered By: Glen Chapman on 08-22-2025 ESR (Bld) [Velocity] 74 mm/h High 0-30 [facility] Ferritinon 08-22-2025 Ferritin [Mass/Vol] 837 ng/mL High 22-378 [facility] Comment on above: Order Comment: Y Performed By: #### L 503.6005 #### [facility] [address] [place], [address] Glomerular filtration rate ( GFR) estimation/1.73 sq m using serum, plasma, or whole bOrdered By: Glen Chapman on 08-22-2025 GFR/1.73 sq M.predicted among non-blacks MDRD (S/P/Bld) [Vol rate/Area] 45 mL/min/{1.73_m2} Low >60 [facility] Comment on above: mL/min/1.73m2 CKD-EP I Creatinine Equation (2020) Hematocrit Auto (Bld) [Volum e fraction]Ordered By: Glen Chapman on 08-22-2025 Hematocrit (Bld) [Volume fraction] 31.3 % Low 37-47 [facility] Hemoglobin measurementOrdere d By: Glen Chapman on 08-22-2025 Hemoglobin (Bld) [Mass/Vol] 10.3 g/dL Low 12.0-15. 0 [facility] Immature granulocytes/100 WB C Auto (Bld)Ordered By: Glen Chapman on 08-22-2025 Immature granulocytes/100 WBC (Bld) 2.600 % High 0.0-0.9 [facility] Comment on above: IG% - Immature Granu locytes (promyelocytes, myelocytes and metamyelocytes) > 1% indicates that a LEFT SHIFT is Present. Iron measurement (mass/mass) Ordered By: Glen Chapman on 08-22-2025 Iron (Unsp spec) [Mass/Mass] 55 ug/dL 50-170 [facility] Iron+Iron Binding Capacityon 08-22-2025 Iron [Mass/Vol] 55 ug/dL Normal 50-170 [facility] Comment on above: Order Comment: Y Performed By: #### L 503.6005 #### [facility] [address] [place], [address] IRON SATURATION 14.2 Normal 13-59 [facility] Comment on above: Order Comment: Y Performed By: #### L 503.6005 #### [facility] [address] [place], [address] TIBC 386 ug/dL Normal 250-450 [facility] Comment on above: Order Comment: Y Performed By: #### L 503.6005 #### [facility] [address] [place], [address] UIBC 331 ug/dL Normal 228-428 [facility] Comment on above: Order Comment: Y Performed By: #### L 503.6005 #### [facility] [address] [place], [place], [id number] LDHon 08-22-2025 LDH 132 U/L Normal 84-246 [facility] Comment on above: Order Comment: Y Performed By: #### L 503.6005 #### [facility] [address] [place], [place], [id number] Laboratory - Chemistry and C hemistry - challengeOrdered By: Glen Chapman on 08-22-2025 AST [Catalytic activity/Vol] 27 U/L <32 [facility] - Hematology and Cell countsOrdered By: Glen Chapman on 08-22-2025 Anisocytosis Ql (Bld) 1+ [facility] Lactate dehydrogenase (LDH) measurementOrdered By: Glen Chapman on 08-22-2025 LDH [Catalytic activity/Vol] 132 U/L 84-246 [facility] MCV (mean corpuscular volume ) determinationOrdered By: Glen Chapman on 08-22-2025 MCV (RBC) [Entitic vol] 80.5 fL Low 81-99 [facility] Magnesiumon 08-22-2025 Magnesium [Mass/Vol] 2.3 mg/dL High 1.5-2.2 [facility] Comment on above: Order Comment: Y Performed By: #### L 503.6005 #### [facility] [address] [place], [place], [address] Magnesium measurement (mass/ volume)Ordered By: Glen Chapman on 08-22-2025 Magnesium (Unsp spec) [Mass/Vol] 2.3 mg/dL High 1.5-2.2 [facility] Mean corpuscular hemoglobin (MCH) determinationOrdered By: Glen Chapman on 08-22-2025 MCH (RBC) [Entitic mass] 26.5 pg Low 27.0-32.0 [facility] Mean corpuscular hemoglobin concentration (MCHC) determinationOrdered By: Glen Chapman on 08-22-2025 MCHC (RBC) [Mass/Vol] 32.9 g/dL 32-36 [facility] Mean platelet volume determi nationOrdered By: Glen Chapman on 08-22-2025 Platelet mean volume (Bld) [Entitic vol] 10.2 fL 6.2-12.0 [facility] Monocyte percentageOrdered B y: Glen Chapman on 08-22-2025 Monocytes/100 WBC (Bld) 5.4 % 0-10 [facility] Neutrophil percentageOrdered By: Glen Chapman on 08-22-2025 Neutrophils/100 WBC (Bld) 82.9 % High 47-70 [facility] No Panel InformationOrdered By: Glen Chapman on 08-22-2025 Unsaturated Iron Binding Capacity 331 ug/dL 228-428 [facility] 1+ [facility] 27 U/L <32 [facility] 331 ug/dL 228-428 [facility] Nucleated red blood cell per centageOrdered By: Glen Chapman on 08-22-2025 Nucleated RBC/100 WBC (Bld) [Ratio] 0 % 0-5 [facility] Phosphoruson 08-22-2025 Phosphate [Mass/Vol] 2.8 mg/dL Normal 2.7-4.5 [facility] Comment on above: Order Comment: Y Performed By: #### L 503.6005 #### [facility] [address] [place], [address] Platelet countOrdered By: Jaimee Chapman on 08-22-2025 Platelets (Bld) [#/Vol] 391 10*3/uL 150-450 [facility] Potassium measurement (mass/ volume)Ordered By: Glen Chapman on 08-22-2025 Potassium (Unsp spec) [Mass/Vol] 3.2 mmol/L Low 3.3-5.1 [facility] RBC Auto (Bld) [#/Vol]Ordere d By: Glen Chapman on 08-22-2025 RBC (Bld) [#/Vol] 3.89 10*6/uL Low 4.2-5.4 [facility] Serum creatinine measurement (mass/volume)Ordered By: Glen Chapman on 08-22-2025 Creatinine [Mass/Vol] 1.39 mg/dL High 0.70-1.20 [facility] Serum globulin measurementOr dered By: Glen Chapman on 08-22-2025 Globulin (S) [Mass/Vol] 4.1 g/dL 2.2-4.2 [facility] Serum glucose measurement (m ass/volume)Ordered By: Glen Chapman on 08-22-2025 Glucose [Mass/Vol] 193 mg/dL High 70-99 [facility] Serum or plasma C reactive p rotein measurement (mass/volume)Ordered By: Glen Chapman on 08-22-2025 CRP [Mass/Vol] 129.00 mg/L High 0.0-3.0 [facility] Serum or plasma alanine cueto otransferase (ALT) measurementOrdered By: Glen Chapman on 08-22-2025 ALT [Catalytic activity/Vol] 12 U/L <35 [facility] Serum or plasma albumin sandy urement (mass/volume)Ordered By: Glen Chapman on 08-22-2025 Albumin [Mass/Vol] 4.1 g/dL 3.5-5.0 [facility] Serum or plasma albumin/glob ulin mass ratioOrdered By: Glen Chapman on 08-22-2025 Albumin/Globulin [Mass ratio] 1.0 {ratio} 0.9-2.4 [facility] Serum or plasma alkaline rebecca sphatase measurementOrdered By: Glen Chapman on 08-22-2025 ALP [Catalytic activity/Vol] 243 U/L High 35-104 [facility] Serum or plasma calcium sandy urement (mass/volume)Ordered By: Glen Chapman on 08-22-2025 Calcium [Mass/Vol] 10.3 mg/dL 7.6-11.0 [facility] Serum or plasma ferritin darrel surement (mass/volume)Ordered By: Glen Chapman on 08-22-2025 Ferritin [Mass/Vol] 837 ng/mL High 22-378 [facility] Serum or plasma iron saturat ion measurement (mass fraction)Ordered By: Glen Chapman on 08-22-2025 Iron saturation [Mass fraction] 14.2 % 13-59 [facility] Serum or plasma urea nitroge n measurement (mass/volume)Ordered By: Glen Chapman on 08-22-2025 Urea nitrogen [Mass/Vol] 22 mg/dL High 4-19 [facility] Sodium levelOrdered By: Cy Chapman on 08-22-2025 Sodium [Moles/Vol] 132 mmol/L Low 133-145 [facility] Total proteinOrdered By: Vasquez Chapman on 08-22-2025 Protein [Mass/Vol] 8.2 g/dL 5.9-8.4 [facility] Vitamin B12on 08-22-2025 Cobalamin (Vitamin B12) [Mass/Vol] 747 pg/mL Normal 180-914 [facility] Comment on above: Order Comment: Y Performed By: #### L 503.6005 #### [facility] [address] [place], [place], [address] Vitamin B12 ser/plasOrdered By: Glen Chapman on 08-22-2025 Cobalamin (Vitamin B12) [Mass/Vol] 747 pg/mL 180-914 [facility] White blood cell (WBC) count Ordered By: Glen Chapman on 08-22-2025 WBC (Bld) [#/Vol] 10.3 10*3/uL 4.4-11.0 [facility] Absolute lymphocyte countOrd ered By: Red Perez on 08-17-2025 Lymphocytes Auto (Unsp spec) [#/Vol] 0.97 10*3/uL 0.83-4.51 [facility] Absolute neutrophil countOrd ered By: Red Perez on 08-17-2025 Neutrophils (Bld) [#/Vol] 8.7 10*3/uL High 2.0-7.7 [facility] Anion gap in Serum or Plasma Ordered By: Red Perez on 08-17-2025 Anion gap [Moles/Vol] 22 mmol/L High 5-15 [facility] Automated lymphocyte count a s percentage of total leukocytesOrdered By: Red Perez on 08-17-2025 Lymphocytes/100 WBC Auto (Unsp spec) 9.1 % Low 19-41 [facility] BUN/creatinine ratioOrdered By: Red Perez on 08-17-2025 Urea nitrogen/Creatinine [Mass ratio] 14.1 mg/mg 10-20 [facility] Basophil percentageOrdered B y: Red Perez on 08-17-2025 Basophils/100 WBC (Bld) 0.5 % 0-1 [facility] Bilirubin, totalOrdered By: Red Perez on 08-17-2025 Bilirubin [Mass/Vol] 0.42 mg/dL 0.00-1.30 [facility] CBC W/Diff, Automatedon Absolute Lymph 0.97 X10 3/uL Normal 0.83-4.51 [facility] Comment on above: Performed By: #### L 503.0106, L500.4050, L501.1400, L400.0001, L503.6030, L3000.0800, L100.9950, L3890.6006, L501.5101, L100.0100, L504.2610, L501.5200, L506.0200, L3410.9992, L101.9900, L3100.1350, L3200.1200, L503.6550, L3200.0500, L501.6710 #### [facility] [address] [place], [place], [id number] [phone] Absolute Neut 8.7 X10 3/uL High 2.0-7.7 [facility] Comment on above: Performed By: #### L 503.0106, L500.4050, L501.1400, L400.0001, L503.6030, L3000.0800, L100.9950, L3890.6006, L501.5101, L100.0100, L504.2610, L501.5200, L506.0200, L3410.9992, L101.9900, L3100.1350, L3200.1200, L503.6550, L3200.0500, L501.6710 #### [facility] [address] [place], [address] Basophils/100 WBC (Bld) 0.5 % Normal 0-1 [facility] Comment on above: Performed By: #### L 503.0106, L500.4050, L501.1400, L400.0001, L503.6030, L3000.0800, L100.9950, L3890.6006, L501.5101, L100.0100, L504.2610, L501.5200, L506.0200, L3410.9992, L101.9900, L3100.1350, L3200.1200, L503.6550, L3200.0500, L501.6710 #### [facility] [address] [place], [address] Eosinophils/100 WBC (Bld) 0.3 % Normal 0-5 [facility] Comment on above: Performed By: #### L 503.0106, L500.4050, L501.1400, L400.0001, L503.6030, L3000.0800, L100.9950, L3890.6006, L501.5101, L100.0100, L504.2610, L501.5200, L506.0200, L3410.9992, L101.9900, L3100.1350, L3200.1200, L503.6550, L3200.0500, L501.6710 #### [facility] [address] [facility] [place], [address] Erythrocyte distribution width (RBC) [Ratio] 13.3 % Normal 11.6-14.6 [facility] Comment on above: Performed By: #### L 503.0106, L500.4050, L501.1400, L400.0001, L503.6030, L3000.0800, L100.9950, L3890.6006, L501.5101, L100.0100, L504.2610, L501.5200, L506.0200, L3410.9992, L101.9900, L3100.1350, L3200.1200, L503.6550, L3200.0500, L501.6710 #### [facility] [address] [place], [address] Hematocrit (Bld) [Volume fraction] 29.3 % Low 37-47 [facility] Comment on above: Performed By: #### L 503.0106, L500.4050, L501.1400, L400.0001, L503.6030, L3000.0800, L100.9950, L3890.6006, L501.5101, L100.0100, L504.2610, L501.5200, L506.0200, L3410.9992, L101.9900, L3100.1350, L3200.1200, L503.6550, L3200.0500, L501.6710 #### [facility] [address] [place], [address] Hemoglobin (Bld) [Mass/Vol] 9.5 g/dL Low 12.0-15. 0 [facility] Comment on above: Performed By: #### L 503.0106, L500.4050, L501.1400, L400.0001, L503.6030, L3000.0800, L100.9950, L3890.6006, L501.5101, L100.0100, L504.2610, L501.5200, L506.0200, L3410.9992, L101.9900, L3100.1350, L3200.1200, L503.6550, L3200.0500, L501.6710 #### [facility] [address] [place], [address] IG% 3.000 High 0.0-0.9 [facility] Comment on above: Result Comment: IG% - Immature Granulocytes (promyelocytes, myelocytes and metamyelocytes) > 1% indicates that a LEFT SHIFT is Present. Performed By: #### L 503.0106, L500.4050, L501.1400, L400.0001, L503.6030, L3000.0800, L100.9950, L3890.6006, L501.5101, L100.0100, L504.2610, L501.5200, L506.0200, L3410.9992, L101.9900, L3100.1350, L3200.1200, L503.6550, L3200.0500, L501.6710 #### [facility] [address] [facility] [place], [address] Lymphocytes/100 WBC (Bld) 9.1 % Low 19-41 [facility] Comment on above: Performed By: #### L 503.0106, L500.4050, L501.1400, L400.0001, L503.6030, L3000.0800, L100.9950, L3890.6006, L501.5101, L100.0100, L504.2610, L501.5200, L506.0200, L3410.9992, L101.9900, L3100.1350, L3200.1200, L503.6550, L3200.0500, L501.6710 #### [facility] [address] [place], [address] MCH (RBC) [Entitic mass] 26.5 pg Low 27.0-32.0 [facility] Comment on above: Performed By: #### L 503.0106, L500.4050, L501.1400, L400.0001, L503.6030, L3000.0800, L100.9950, L3890.6006, L501.5101, L100.0100, L504.2610, L501.5200, L506.0200, L3410.9992, L101.9900, L3100.1350, L3200.1200, L503.6550, L3200.0500, L501.6710 #### [facility] [address] [place], [address] MCHC (RBC) [Mass/Vol] 32.4 g/dL Normal 32-36 [facility] Comment on above: Performed By: #### L 503.0106, L500.4050, L501.1400, L400.0001, L503.6030, L3000.0800, L100.9950, L3890.6006, L501.5101, L100.0100, L504.2610, L501.5200, L506.0200, L3410.9992, L101.9900, L3100.1350, L3200.1200, L503.6550, L3200.0500, L501.6710 #### [facility] [address] [place], [address] MCV (RBC) [Entitic vol] 81.6 fL Normal 81-99 [facility] Comment on above: Performed By: #### L 503.0106, L500.4050, L501.1400, L400.0001, L503.6030, L3000.0800, L100.9950, L3890.6006, L501.5101, L100.0100, L504.2610, L501.5200, L506.0200, L3410.9992, L101.9900, L3100.1350, L3200.1200, L503.6550, L3200.0500, L501.6710 #### [facility] [address] [place], [address] Monocytes/100 WBC (Bld) 5.2 % Normal 0-10 [facility] Comment on above: Performed By: #### L 503.0106, L500.4050, L501.1400, L400.0001, L503.6030, L3000.0800, L100.9950, L3890.6006, L501.5101, L100.0100, L504.2610, L501.5200, L506.0200, L3410.9992, L101.9900, L3100.1350, L3200.1200, L503.6550, L3200.0500, L501.6710 #### [facility] [address] [place], [address] Neutrophils/100 WBC (Bld) 81.9 % High 47-70 [facility] Comment on above: Performed By: #### L 503.0106, L500.4050, L501.1400, L400.0001, L503.6030, L3000.0800, L100.9950, L3890.6006, L501.5101, L100.0100, L504.2610, L501.5200, L506.0200, L3410.9992, L101.9900, L3100.1350, L3200.1200, L503.6550, L3200.0500, L501.6710 #### [facility] [address] [place], [place], [id number] Nucleated RBC (Bld) [#/Vol] 0 10*3/uL Normal 0-5 [facility] Comment on above: Performed By: #### L 503.0106, L500.4050, L501.1400, L400.0001, L503.6030, L3000.0800, L100.9950, L3890.6006, L501.5101, L100.0100, L504.2610, L501.5200, L506.0200, L3410.9992, L101.9900, L3100.1350, L3200.1200, L503.6550, L3200.0500, L501.6710 #### [facility] [address] [place], [place], [id number] Platelet mean volume (Bld) [Entitic vol] 10.0 fL Normal 6.2-12.0 [facility] Comment on above: Performed By: #### L 503.0106, L500.4050, L501.1400, L400.0001, L503.6030, L3000.0800, L100.9950, L3890.6006, L501.5101, L100.0100, L504.2610, L501.5200, L506.0200, L3410.9992, L101.9900, L3100.1350, L3200.1200, L503.6550, L3200.0500, L501.6710 #### [facility] [address] [place], [address] Platelets (Bld) [#/Vol] 370 10*3/uL Normal 150-450 [facility] Comment on above: Performed By: #### L 503.0106, L500.4050, L501.1400, L400.0001, L503.6030, L3000.0800, L100.9950, L3890.6006, L501.5101, L100.0100, L504.2610, L501.5200, L506.0200, L3410.9992, L101.9900, L3100.1350, L3200.1200, L503.6550, L3200.0500, L501.6710 #### [facility] [address] [place], [address] RBC (Bld) [#/Vol] 3.59 10*6/uL Low 4.2-5.4 [facility] Comment on above: Performed By: #### L 503.0106, L500.4050, L501.1400, L400.0001, L503.6030, L3000.0800, L100.9950, L3890.6006, L501.5101, L100.0100, L504.2610, L501.5200, L506.0200, L3410.9992, L101.9900, L3100.1350, L3200.1200, L503.6550, L3200.0500, L501.6710 #### [facility] [address] [place], [address] RDW SD 39.8 fl Normal 35.1-43.9 [facility] Comment on above: Performed By: #### L 503.0106, L500.4050, L501.1400, L400.0001, L503.6030, L3000.0800, L100.9950, L3890.6006, L501.5101, L100.0100, L504.2610, L501.5200, L506.0200, L3410.9992, L101.9900, L3100.1350, L3200.1200, L503.6550, L3200.0500, L501.6710 #### [facility] [address] [place], [place], [id number] WBC (Bld) [#/Vol] 10.6 10*3/uL Normal 4.4-11.0 [facility] Comment on above: Performed By: #### L 503.0106, L500.4050, L501.1400, L400.0001, L503.6030, L3000.0800, L100.9950, L3890.6006, L501.5101, L100.0100, L504.2610, L501.5200, L506.0200, L3410.9992, L101.9900, L3100.1350, L3200.1200, L503.6550, L3200.0500, L501.6710 #### [facility] [address] [place], [place], [id number] Carbon dioxide, total [Moles /volume] in Central venous bloodOrdered By: Red Perez on 08-17-2025 CO2 [Moles/Vol] 23.4 mmol/L 21.0-32.0 [facility] Chloride assayOrdered By: Yousuf Perez on 08-17-2025 Chloride [Moles/Vol] 85 mmol/L Low 98-108 [facility] Metabolic Prof ilon 08-17-2025 Albumin [Mass/Vol] 4.0 g/dL Normal 3.5-5.0 [facility] Comment on above: Performed By: #### L 503.0106, L500.4050, L501.1400, L400.0001, L503.6030, L3000.0800, L100.9950, L3890.6006, L501.5101, L100.0100, L504.2610, L501.5200, L506.0200, L3410.9992, L101.9900, L3100.1350, L3200.1200, L503.6550, L3200.0500, L501.6710 #### [facility] [address] [place], [address] Albumin/Globulin [Mass ratio] 1.1 {ratio} Normal 0.9-2.4 [facility] Comment on above: Performed By: #### L 503.0106, L500.4050, L501.1400, L400.0001, L503.6030, L3000.0800, L100.9950, L3890.6006, L501.5101, L100.0100, L504.2610, L501.5200, L506.0200, L3410.9992, L101.9900, L3100.1350, L3200.1200, L503.6550, L3200.0500, L501.6710 #### [facility] [address] [place], [address] ALK PHOS 138 U/L High 35-104 [facility] Comment on above: Performed By: #### L 503.0106, L500.4050, L501.1400, L400.0001, L503.6030, L3000.0800, L100.9950, L3890.6006, L501.5101, L100.0100, L504.2610, L501.5200, L506.0200, L3410.9992, L101.9900, L3100.1350, L3200.1200, L503.6550, L3200.0500, L501.6710 #### [facility] [address] [place], [address] ALT [Catalytic activity/Vol] 5 U/L Normal <=34 [facility] Comment on above: Performed By: #### L 503.0106, L500.4050, L501.1400, L400.0001, L503.6030, L3000.0800, L100.9950, L3890.6006, L501.5101, L100.0100, L504.2610, L501.5200, L506.0200, L3410.9992, L101.9900, L3100.1350, L3200.1200, L503.6550, L3200.0500, L501.6710 #### [facility] [address] [place], [place], [id number] AST [Catalytic activity/Vol] 14 U/L Normal <=31 [facility] Comment on above: Performed By: #### L 503.0106, L500.4050, L501.1400, L400.0001, L503.6030, L3000.0800, L100.9950, L3890.6006, L501.5101, L100.0100, L504.2610, L501.5200, L506.0200, L3410.9992, L101.9900, L3100.1350, L3200.1200, L503.6550, L3200.0500, L501.6710 #### [facility] [address] [place], [place], [id number] Bilirubin [Mass/Vol] 0.42 mg/dL Normal 0.00-1.30 [facility] Comment on above: Performed By: #### L 503.0106, L500.4050, L501.1400, L400.0001, L503.6030, L3000.0800, L100.9950, L3890.6006, L501.5101, L100.0100, L504.2610, L501.5200, L506.0200, L3410.9992, L101.9900, L3100.1350, L3200.1200, L503.6550, L3200.0500, L501.6710 #### [facility] [address] [place], [place], [id number] BUN/CRE 14.1 RATIO Normal 10-20 [facility] Comment on above: Performed By: #### L 503.0106, L500.4050, L501.1400, L400.0001, L503.6030, L3000.0800, L100.9950, L3890.6006, L501.5101, L100.0100, L504.2610, L501.5200, L506.0200, L3410.9992, L101.9900, L3100.1350, L3200.1200, L503.6550, L3200.0500, L501.6710 #### [facility] [address] [place], [place], [id number] (946) Calcium [Mass/Vol] 9.8 mg/dL Normal 7.6-11.0 [facility] Comment on above: Performed By: #### L 503.0106, L500.4050, L501.1400, L400.0001, L503.6030, L3000.0800, L100.9950, L3890.6006, L501.5101, L100.0100, L504.2610, L501.5200, L506.0200, L3410.9992, L101.9900, L3100.1350, L3200.1200, L503.6550, L3200.0500, L501.6710 #### [facility] [address] [place], [place], [id number] [phone] Chloride [Moles/Vol] 85 mmol/L Low 98-108 [facility] Comment on above: Performed By: #### L 503.0106, L500.4050, L501.1400, L400.0001, L503.6030, L3000.0800, L100.9950, L3890.6006, L501.5101, L100.0100, L504.2610, L501.5200, L506.0200, L3410.9992, L101.9900, L3100.1350, L3200.1200, L503.6550, L3200.0500, L501.6710 #### [facility] [address] [place], [address] CO2 [Moles/Vol] 23.4 mmol/L Normal 21.0-32.0 [facility] Comment on above: Performed By: #### L 503.0106, L500.4050, L501.1400, L400.0001, L503.6030, L3000.0800, L100.9950, L3890.6006, L501.5101, L100.0100, L504.2610, L501.5200, L506.0200, L3410.9992, L101.9900, L3100.1350, L3200.1200, L503.6550, L3200.0500, L501.6710 #### [facility] [address] [place], [address] Creatinine [Mass/Vol] 1.80 mg/dL High 0.70-1.20 [facility] Comment on above: Performed By: #### L 503.0106, L500.4050, L501.1400, L400.0001, L503.6030, L3000.0800, L100.9950, L3890.6006, L501.5101, L100.0100, L504.2610, L501.5200, L506.0200, L3410.9992, L101.9900, L3100.1350, L3200.1200, L503.6550, L3200.0500, L501.6710 #### [facility] [address] [place], [place], [id number] GAP 22 High 5-15 [facility] Comment on above: Performed By: #### L 503.0106, L500.4050, L501.1400, L400.0001, L503.6030, L3000.0800, L100.9950, L3890.6006, L501.5101, L100.0100, L504.2610, L501.5200, L506.0200, L3410.9992, L101.9900, L3100.1350, L3200.1200, L503.6550, L3200.0500, L501.6710 #### [facility] [address], [place], [id number] (840) GFR/1.73 sq M.predicted among non-blacks MDRD (S/P/Bld) [Vol rate/Area] 33 mL/min/{1.73_m2} Low >60 [facility] Comment on above: Result Comment: mL/m in/1.73m2 CKD-EPI Creatinine Equation (2020) Performed By: #### L 503.0106, L500.4050, L501.1400, L400.0001, L503.6030, L3000.0800, L100.9950, L3890.6006, L501.5101, L100.0100, L504.2610, L501.5200, L506.0200, L3410.9992, L101.9900, L3100.1350, L3200.1200, L503.6550, L3200.0500, L501.6710 #### [facility] [address] [place], [address] Globulin (S) [Mass/Vol] 3.8 g/dL Normal 2.2-4.2 [facility] Comment on above: Performed By: #### L 503.0106, L500.4050, L501.1400, L400.0001, L503.6030, L3000.0800, L100.9950, L3890.6006, L501.5101, L100.0100, L504.2610, L501.5200, L506.0200, L3410.9992, L101.9900, L3100.1350, L3200.1200, L503.6550, L3200.0500, L501.6710 #### [facility] [address] [place], [address] Glucose [Mass/Vol] 168 mg/dL High 70-99 [facility] Comment on above: Performed By: #### L 503.0106, L500.4050, L501.1400, L400.0001, L503.6030, L3000.0800, L100.9950, L3890.6006, L501.5101, L100.0100, L504.2610, L501.5200, L506.0200, L3410.9992, L101.9900, L3100.1350, L3200.1200, L503.6550, L3200.0500, L501.6710 #### [facility] [address] [place], [place], [id number] (957) Potassium [Moles/Vol] 3.2 mmol/L Low 3.3-5.1 [facility] Comment on above: Performed By: #### L 503.0106, L500.4050, L501.1400, L400.0001, L503.6030, L3000.0800, L100.9950, L3890.6006, L501.5101, L100.0100, L504.2610, L501.5200, L506.0200, L3410.9992, L101.9900, L3100.1350, L3200.1200, L503.6550, L3200.0500, L501.6710 #### [facility] [address] [place], [place], [id number] (644) Sodium [Moles/Vol] 131 mmol/L Low 133-145 [facility] Comment on above: Performed By: #### L 503.0106, L500.4050, L501.1400, L400.0001, L503.6030, L3000.0800, L100.9950, L3890.6006, L501.5101, L100.0100, L504.2610, L501.5200, L506.0200, L3410.9992, L101.9900, L3100.1350, L3200.1200, L503.6550, L3200.0500, L501.6710 #### [facility] [address] [place], [address] T PROT 7.8 g/dL Normal 5.9-8.4 [facility] Comment on above: Performed By: #### L 503.0106, L500.4050, L501.1400, L400.0001, L503.6030, L3000.0800, L100.9950, L3890.6006, L501.5101, L100.0100, L504.2610, L501.5200, L506.0200, L3410.9992, L101.9900, L3100.1350, L3200.1200, L503.6550, L3200.0500, L501.6710 #### [facility] [address] [place], [address] Urea nitrogen [Mass/Vol] 25 mg/dL High 4-19 [facility] Comment on above: Performed By: #### L 503.0106, L500.4050, L501.1400, L400.0001, L503.6030, L3000.0800, L100.9950, L3890.6006, L501.5101, L100.0100, L504.2610, L501.5200, L506.0200, L3410.9992, L101.9900, L3100.1350, L3200.1200, L503.6550, L3200.0500, L501.6710 #### [facility] [address] [place], [address] Eosinophil percentageOrdered By: Red Perez on 08-17-2025 Eosinophils/100 WBC (Bld) 0.3 % 0-5 [facility] Erythrocyte distribution wid th ratioOrdered By: Red Perez on 08-17-2025 Erythrocyte distribution width (RBC) [Ratio] 13.3 % 11.6-14.6 [facility] Erythrocyte distribution wid th standard deviationOrdered By: Red Perez on 08-17-2025 Erythrocyte distribution width (RBC) [Ratio] 39.8 fl 35.1-43.9 [facility] Ferritinon 08-17-2025 Ferritin [Mass/Vol] 1236 ng/mL High 22-378 [facility] Comment on above: Performed By: #### L 503.0106, L500.4050, L501.1400, L400.0001, L503.6030, L3000.0800, L100.9950, L3890.6006, L501.5101, L100.0100, L504.2610, L501.5200, L506.0200, L3410.9992, L101.9900, L3100.1350, L3200.1200, L503.6550, L3200.0500, L501.6710 #### [facility] [address] [place], [address] Free T3on 08-17-2025 Free T3 [Mass/Vol] 1.8 pg/mL Low 2.18-3.98 [facility] Comment on above: Performed By: #### L 503.0106, L500.4050, L501.1400, L400.0001, L503.6030, L3000.0800, L100.9950, L3890.6006, L501.5101, L100.0100, L504.2610, L501.5200, L506.0200, L3410.9992, L101.9900, L3100.1350, L3200.1200, L503.6550, L3200.0500, L501.6710 #### [facility] [address] [place], [address] Free H4Ctwwvvd By: Red santos on 08-17-2025 Free T3 [Mass/Vol] 1.8 pg/mL Low 2.18-3.98 [facility] Glomerular filtration rate ( GFR) estimation/1.73 sq m using serum, plasma, or whole bOrdered By: Red Perez on 08-17-2025 GFR/1.73 sq M.predicted among non-blacks MDRD (S/P/Bld) [Vol rate/Area] 33 mL/min/{1.73_m2} Low >60 [facility] Comment on above: mL/min/1.73m2 CKD-EP I Creatinine Equation (2020) Hematocrit Auto (Bld) [Volum e fraction]Ordered By: Red Perez on 08-17-2025 Hematocrit (Bld) [Volume fraction] 29.3 % Low 37-47 [facility] Hemoglobin measurementOrdere d By: Red Perez on 08-17-2025 Hemoglobin (Bld) [Mass/Vol] 9.5 g/dL Low 12.0-15. 0 [facility] Immature granulocytes/100 WB C Auto (Bld)Ordered By: Red Perez on 08-17-2025 Immature granulocytes/100 WBC (Bld) 3.000 % High 0.0-0.9 [facility] Comment on above: IG% - Immature Granu locytes (promyelocytes, myelocytes and metamyelocytes) > 1% indicates that a LEFT SHIFT is Present. Iron measurement (mass/mass) Ordered By: Red Perez on 08-17-2025 Iron (Unsp spec) [Mass/Mass] 52 ug/dL 50-170 [facility] Iron+Iron Binding Capacityon 08-17-2025 Iron [Mass/Vol] 52 ug/dL Normal 50-170 [facility] Comment on above: Performed By: #### L 503.0106, L500.4050, L501.1400, L400.0001, L503.6030, L3000.0800, L100.9950, L3890.6006, L501.5101, L100.0100, L504.2610, L501.5200, L506.0200, L3410.9992, L101.9900, L3100.1350, L3200.1200, L503.6550, L3200.0500, L501.6710 #### [facility] [address] [place], [place], [id number] IRON SATURATION 15.0 Normal 13-59 [facility] Comment on above: Performed By: #### L 503.0106, L500.4050, L501.1400, L400.0001, L503.6030, L3000.0800, L100.9950, L3890.6006, L501.5101, L100.0100, L504.2610, L501.5200, L506.0200, L3410.9992, L101.9900, L3100.1350, L3200.1200, L503.6550, L3200.0500, L501.6710 #### [facility] [address] [place], [place], [id number] (308) TIBC 345 ug/dL Normal 250-450 [facility] Comment on above: Performed By: #### L 503.0106, L500.4050, L501.1400, L400.0001, L503.6030, L3000.0800, L100.9950, L3890.6006, L501.5101, L100.0100, L504.2610, L501.5200, L506.0200, L3410.9992, L101.9900, L3100.1350, L3200.1200, L503.6550, L3200.0500, L501.6710 #### [facility] [address] [place], [place], [id number] UIBC 293 ug/dL Normal 228-428 [facility] Comment on above: Performed By: #### L 503.0106, L500.4050, L501.1400, L400.0001, L503.6030, L3000.0800, L100.9950, L3890.6006, L501.5101, L100.0100, L504.2610, L501.5200, L506.0200, L3410.9992, L101.9900, L3100.1350, L3200.1200, L503.6550, L3200.0500, L501.6710 #### [facility] [address] [place], [place], [id number] Laboratory - Chemistry and C hemistry - challengeOrdered By: Red Perez on 08-17-2025 AST [Catalytic activity/Vol] 14 U/L <32 [facility] MCV (mean corpuscular volume ) determinationOrdered By: Red Perez on 08-17-2025 MCV (RBC) [Entitic vol] 81.6 fL 81-99 [facility] Mean corpuscular hemoglobin (MCH) determinationOrdered By: Red Perez on 08-17-2025 MCH (RBC) [Entitic mass] 26.5 pg Low 27.0-32.0 [facility] Mean corpuscular hemoglobin concentration (MCHC) determinationOrdered By: Red Perez on 08-17-2025 MCHC (RBC) [Mass/Vol] 32.4 g/dL 32-36 [facility] Mean platelet volume determi nationOrdered By: Red Perez on 08-17-2025 Platelet mean volume (Bld) [Entitic vol] 10.0 fL 6.2-12.0 [facility] Monocyte percentageOrdered B y: Red Perez on 08-17-2025 Monocytes/100 WBC (Bld) 5.2 % 0-10 [facility] Neutrophil percentageOrdered By: Red Perez on 08-17-2025 Neutrophils/100 WBC (Bld) 81.9 % High 47-70 [facility] No Panel InformationOrdered By: Red Perez on 08-17-2025 Unsaturated Iron Binding Capacity 293 ug/dL 228-428 [facility] 14 U/L <32 [facility] 293 ug/dL 228-428 [facility] Nucleated red blood cell per centageOrdered By: Red Perez on 08-17-2025 Nucleated RBC/100 WBC (Bld) [Ratio] 0 % 0-5 [facility] Platelet countOrdered By: Yousuf Perez on 08-17-2025 Platelets (Bld) [#/Vol] 370 10*3/uL 150-450 [facility] Potassium measurement (mass/ volume)Ordered By: Red Perez on 08-17-2025 Potassium (Unsp spec) [Mass/Vol] 3.2 mmol/L Low 3.3-5.1 [facility] RBC Auto (Bld) [#/Vol]Ordere d By: Red Perez on 08-17-2025 RBC (Bld) [#/Vol] 3.59 10*6/uL Low 4.2-5.4 [facility] Serum creatinine measurement (mass/volume)Ordered By: Red Perez on 08-17-2025 Creatinine [Mass/Vol] 1.80 mg/dL High 0.70-1.20 [facility] Serum globulin measurementOr dered By: Red Perez on 08-17-2025 Globulin (S) [Mass/Vol] 3.8 g/dL 2.2-4.2 [facility] Serum glucose measurement (m ass/volume)Ordered By: Red Perez on 08-17-2025 Glucose [Mass/Vol] 168 mg/dL High 70-99 [facility] Serum or plasma alanine cueto otransferase (ALT) measurementOrdered By: Red Perez on 08-17-2025 ALT [Catalytic activity/Vol] 5 U/L <35 [facility] Serum or plasma albumin sandy urement (mass/volume)Ordered By: Red Perez on 08-17-2025 Albumin [Mass/Vol] 4.0 g/dL 3.5-5.0 [facility] Serum or plasma albumin/glob ulin mass ratioOrdered By: Red Perez on 08-17-2025 Albumin/Globulin [Mass ratio] 1.1 {ratio} 0.9-2.4 [facility] Serum or plasma alkaline rebecca sphatase measurementOrdered By: Red Perez on 08-17-2025 ALP [Catalytic activity/Vol] 138 U/L High 35-104 [facility] Serum or plasma calcium sandy urement (mass/volume)Ordered By: Red Perez on 08-17-2025 Calcium [Mass/Vol] 9.8 mg/dL 7.6-11.0 [facility] Serum or plasma ferritin darrel surement (mass/volume)Ordered By: Red Perez on 08-17-2025 Ferritin [Mass/Vol] 1236 ng/mL High 22-378 [facility] Serum or plasma iron saturat ion measurement (mass fraction)Ordered By: Red Perez on 08-17-2025 Iron saturation [Mass fraction] 15.0 % 13-59 [facility] Serum or plasma urea nitroge n measurement (mass/volume)Ordered By: Red Perez on 08-17-2025 Urea nitrogen [Mass/Vol] 25 mg/dL High 4-19 [facility] Sodium levelOrdered By: Red Perez on 08-17-2025 Sodium [Moles/Vol] 131 mmol/L Low 133-145 [facility] T4 Free Directon 08-17-2025 T4 FREE DIRECT 1.50 ng/dL High 0.76-1.46 [facility] Comment on above: Performed By: #### L 503.0106, L500.4050, L501.1400, L400.0001, L503.6030, L3000.0800, L100.9950, L3890.6006, L501.5101, L100.0100, L504.2610, L501.5200, L506.0200, L3410.9992, L101.9900, L3100.1350, L3200.1200, L503.6550, L3200.0500, L501.6710 #### [facility] [address] [place], [address] T4 freeOrdered By: Red santos on 08-17-2025 Free T4 [Mass/Vol] 1.50 ng/dL High 0.76-1.46 [facility] TSH DL <= 0.005 mIU/L QnOrde red By: Red Perez on 08-17-2025 TSH Qn 3.370 uIU/mL 0.300-4.200 [facility] Thyroid Stim Hormone (TSH)on 08-17-2025 TSH 3.370 uIU/mL Normal 0.300-4.200 [facility] Comment on above: Performed By: #### L 503.0106, L500.4050, L501.1400, L400.0001, L503.6030, L3000.0800, L100.9950, L3890.6006, L501.5101, L100.0100, L504.2610, L501.5200, L506.0200, L3410.9992, L101.9900, L3100.1350, L3200.1200, L503.6550, L3200.0500, L501.6710 #### [facility] [address] [place], [place], [id number] Total proteinOrdered By: Senait Perez on 08-17-2025 Protein [Mass/Vol] 7.8 g/dL 5.9-8.4 [facility] White blood cell (WBC) count Ordered By: Red Perez on 08-17-2025 WBC (Bld) [#/Vol] 10.6 10*3/uL 4.4-11.0 [facility] Fluoroscopy 1 Hr or Lesson 0 08-13-2025 Fluoroscopy 1 Hr or Less [facility] Imaging Services [address] [place], [place] [id number] Fluoroscopy 1 Hr or Less MR#: [id number] Acct: [id number] Name: HEIDI ANDREWS Rep #: [id number] : 1970 F 55 From: Imani Mcfarland MD PCP: Dr. Red Perez MD Status: REG CLI Study: Fluoroscopy 1 Hr or Less Date of Exam: 5 Exam# [id number] Ordering Dr: Nikolai Kim MD PROCEDURE: FLUOROSCOPY [...] excursion suggestive of mild paralysis. Reading Location: [place] [address] CC: Dr. Red Perez MD; Dr. Nikolai Kim MD [employer]: Signed Normal [facility] Absolute lymphocyte countOrd ered By: Red Perez on 06-27-2025 Lymphocytes Auto (Unsp spec) [#/Vol] 1.04 10*3/uL 0.83-4.51 [facility] Absolute neutrophil countOrd ered By: Red Perez on 06-27-2025 Neutrophils (Bld) [#/Vol] 4.1 10*3/uL 2.0-7.7 [facility] [facility] Anion gap in Serum or Plasma Ordered By: Red Perez on 06-27-2025 Anion gap [Moles/Vol] 17 mmol/L High 5-15 [facility] Automated lymphocyte count a s percentage of total leukocytesOrdered By: Red Perez on 06-27-2025 Lymphocytes/100 WBC Auto (Unsp spec) 18.2 % Low 19-41 [facility] BUN/creatinine ratioOrdered By: Red Perez on 06-27-2025 Urea nitrogen/Creatinine [Mass ratio] 10.8 mg/mg 10- [facility] Basic Metabolic Profile (BMP )on 06-27-2025 BUN/CRE 10.8 RATIO Normal - [facility] Comment on above: Performed By: #### L 503.0106, L500.4050, L501.1400, L400.0001, L503.6030, L3000.0800, L100.9950, L3890.6006, L501.5101, L100.0100, L504.2610, L501.5200, L506.0200, L3410.9992, L101.9900, L3100.1350, L3200.1200, L503.6550, L3200.0500, L501.6710 #### [facility] [address] [place], [place], [id number] Calcium [Mass/Vol] 8.7 mg/dL Normal 7.6-11.0 [facility] Comment on above: Performed By: #### L 503.0106, L500.4050, L501.1400, L400.0001, L503.6030, L3000.0800, L100.9950, L3890.6006, L501.5101, L100.0100, L504.2610, L501.5200, L506.0200, L3410.9992, L101.9900, L3100.1350, L3200.1200, L503.6550, L3200.0500, L501.6710 #### [facility] [address] [place], [place], [id number] Chloride [Moles/Vol] 98 mmol/L Normal 98-108 [facility] Comment on above: Performed By: #### L 503.0106, L500.4050, L501.1400, L400.0001, L503.6030, L3000.0800, L100.9950, L3890.6006, L501.5101, L100.0100, L504.2610, L501.5200, L506.0200, L3410.9992, L101.9900, L3100.1350, L3200.1200, L503.6550, L3200.0500, L501.6710 #### [facility] [address] [place], [address] CO2 [Moles/Vol] 24.2 mmol/L Normal 21.0-32.0 [facility] Comment on above: Performed By: #### L 503.0106, L500.4050, L501.1400, L400.0001, L503.6030, L3000.0800, L100.9950, L3890.6006, L501.5101, L100.0100, L504.2610, L501.5200, L506.0200, L3410.9992, L101.9900, L3100.1350, L3200.1200, L503.6550, L3200.0500, L501.6710 #### [facility] [address] [place], [place], [id number] Creatinine [Mass/Vol] 0.93 mg/dL Normal 0.70-1.20 [facility] Comment on above: Performed By: #### L 503.0106, L500.4050, L501.1400, L400.0001, L503.6030, L3000.0800, L100.9950, L3890.6006, L501.5101, L100.0100, L504.2610, L501.5200, L506.0200, L3410.9992, L101.9900, L3100.1350, L3200.1200, L503.6550, L3200.0500, L501.6710 #### [facility] [address] [place], [place], [id number] GAP 17 High 5-15 [facility] Comment on above: Performed By: #### L 503.0106, L500.4050, L501.1400, L400.0001, L503.6030, L3000.0800, L100.9950, L3890.6006, L501.5101, L100.0100, L504.2610, L501.5200, L506.0200, L3410.9992, L101.9900, L3100.1350, L3200.1200, L503.6550, L3200.0500, L501.6710 #### [facility] [address] [place], [address] GFR/1.73 sq M.predicted among non-blacks MDRD (S/P/Bld) [Vol rate/Area] 73 mL/min/{1.73_m2} Normal >60 [facility] Comment on above: Result Comment: mL/m in/1.73m2 CKD-EPI Creatinine Equation (2020) Performed By: #### L 503.0106, L500.4050, L501.1400, L400.0001, L503.6030, L3000.0800, L100.9950, L3890.6006, L501.5101, L100.0100, L504.2610, L501.5200, L506.0200, L3410.9992, L101.9900, L3100.1350, L3200.1200, L503.6550, L3200.0500, L501.6710 #### [facility] [address] [place], [place], [id number] Glucose [Mass/Vol] 198 mg/dL High 70-99 [facility] Comment on above: Performed By: #### L 503.0106, L500.4050, L501.1400, L400.0001, L503.6030, L3000.0800, L100.9950, L3890.6006, L501.5101, L100.0100, L504.2610, L501.5200, L506.0200, L3410.9992, L101.9900, L3100.1350, L3200.1200, L503.6550, L3200.0500, L501.6710 #### [facility] [address] [place], [place], [id number] (297) Potassium [Moles/Vol] 3.7 mmol/L Normal 3.3-5.1 [facility] Comment on above: Performed By: #### L 503.0106, L500.4050, L501.1400, L400.0001, L503.6030, L3000.0800, L100.9950, L3890.6006, L501.5101, L100.0100, L504.2610, L501.5200, L506.0200, L3410.9992, L101.9900, L3100.1350, L3200.1200, L503.6550, L3200.0500, L501.6710 #### [facility] [address] [place], [place], [id number] (479) Sodium [Moles/Vol] 139 mmol/L Normal 133-145 [facility] Comment on above: Performed By: #### L 503.0106, L500.4050, L501.1400, L400.0001, L503.6030, L3000.0800, L100.9950, L3890.6006, L501.5101, L100.0100, L504.2610, L501.5200, L506.0200, L3410.9992, L101.9900, L3100.1350, L3200.1200, L503.6550, L3200.0500, L501.6710 #### [facility] [address] [place], [address] Urea nitrogen [Mass/Vol] 10 mg/dL Normal 4-19 [facility] Comment on above: Performed By: #### L 503.0106, L500.4050, L501.1400, L400.0001, L503.6030, L3000.0800, L100.9950, L3890.6006, L501.5101, L100.0100, L504.2610, L501.5200, L506.0200, L3410.9992, L101.9900, L3100.1350, L3200.1200, L503.6550, L3200.0500, L501.6710 #### [facility] [address] [place], [address] Basophil percentageOrdered B y: Red Perez on 06-27-2025 Basophils/100 WBC (Bld) 0.7 % 0-1 [facility] CBC W/Diff, Automatedon 06-15 Absolute Lymph 1.04 X10 3/uL Normal 0.83-4.51 [facility] Comment on above: Performed By: #### L 503.0106, L500.4050, L501.1400, L400.0001, L503.6030, L3000.0800, L100.9950, L3890.6006, L501.5101, L100.0100, L504.2610, L501.5200, L506.0200, L3410.9992, L101.9900, L3100.1350, L3200.1200, L503.6550, L3200.0500, L501.6710 #### [facility] [address] [place], [address] Absolute Neut 4.1 X10 3/uL Normal 2.0-7.7 [facility] Comment on above: Performed By: #### L 503.0106, L500.4050, L501.1400, L400.0001, L503.6030, L3000.0800, L100.9950, L3890.6006, L501.5101, L100.0100, L504.2610, L501.5200, L506.0200, L3410.9992, L101.9900, L3100.1350, L3200.1200, L503.6550, L3200.0500, L501.6710 #### [facility] [address] [place], [address] Basophils/100 WBC (Bld) 0.7 % Normal 0-1 [facility] Comment on above: Performed By: #### L 503.0106, L500.4050, L501.1400, L400.0001, L503.6030, L3000.0800, L100.9950, L3890.6006, L501.5101, L100.0100, L504.2610, L501.5200, L506.0200, L3410.9992, L101.9900, L3100.1350, L3200.1200, L503.6550, L3200.0500, L501.6710 #### [facility] [address] [place], [address] Eosinophils/100 WBC (Bld) 3.8 % Normal 0-5 [facility] Comment on above: Performed By: #### L 503.0106, L500.4050, L501.1400, L400.0001, L503.6030, L3000.0800, L100.9950, L3890.6006, L501.5101, L100.0100, L504.2610, L501.5200, L506.0200, L3410.9992, L101.9900, L3100.1350, L3200.1200, L503.6550, L3200.0500, L501.6710 #### [facility] [address] [place], [address] Erythrocyte distribution width (RBC) [Ratio] 13.9 % Normal 11.6-14.6 [facility] Comment on above: Performed By: #### L 503.0106, L500.4050, L501.1400, L400.0001, L503.6030, L3000.0800, L100.9950, L3890.6006, L501.5101, L100.0100, L504.2610, L501.5200, L506.0200, L3410.9992, L101.9900, L3100.1350, L3200.1200, L503.6550, L3200.0500, L501.6710 #### [facility] [address] [place], [address] Hematocrit (Bld) [Volume fraction] 33.6 % Low 37-47 [facility] Comment on above: Performed By: #### L 503.0106, L500.4050, L501.1400, L400.0001, L503.6030, L3000.0800, L100.9950, L3890.6006, L501.5101, L100.0100, L504.2610, L501.5200, L506.0200, L3410.9992, L101.9900, L3100.1350, L3200.1200, L503.6550, L3200.0500, L501.6710 #### [facility] [address] [place], [place], [id number] [phone] Hemoglobin (Bld) [Mass/Vol] 10.7 g/dL Low 12.0-15. 0 [facility] Comment on above: Performed By: #### L 503.0106, L500.4050, L501.1400, L400.0001, L503.6030, L3000.0800, L100.9950, L3890.6006, L501.5101, L100.0100, L504.2610, L501.5200, L506.0200, L3410.9992, L101.9900, L3100.1350, L3200.1200, L503.6550, L3200.0500, L501.6710 #### [facility] [address] [place], [address] IG% 1.000 High 0.0-0.9 [facility] Comment on above: Result Comment: IG% - Immature Granulocytes (promyelocytes, myelocytes and metamyelocytes) > 1% indicates that a LEFT SHIFT is Present. Performed By: #### L 503.0106, L500.4050, L501.1400, L400.0001, L503.6030, L3000.0800, L100.9950, L3890.6006, L501.5101, L100.0100, L504.2610, L501.5200, L506.0200, L3410.9992, L101.9900, L3100.1350, L3200.1200, L503.6550, L3200.0500, L501.6710 #### [facility] [address] [place], [address] Lymphocytes/100 WBC (Bld) 18.2 % Low 19-41 [facility] Comment on above: Performed By: #### L 503.0106, L500.4050, L501.1400, L400.0001, L503.6030, L3000.0800, L100.9950, L3890.6006, L501.5101, L100.0100, L504.2610, L501.5200, L506.0200, L3410.9992, L101.9900, L3100.1350, L3200.1200, L503.6550, L3200.0500, L501.6710 #### [facility] [address] [place], [address] MCH (RBC) [Entitic mass] 27.9 pg Normal 27.0-32.0 [facility] Comment on above: Performed By: #### L 503.0106, L500.4050, L501.1400, L400.0001, L503.6030, L3000.0800, L100.9950, L3890.6006, L501.5101, L100.0100, L504.2610, L501.5200, L506.0200, L3410.9992, L101.9900, L3100.1350, L3200.1200, L503.6550, L3200.0500, L501.6710 #### [facility] [address] [place], [address] MCHC (RBC) [Mass/Vol] 31.8 g/dL Low 32-36 [facility] Comment on above: Performed By: #### L 503.0106, L500.4050, L501.1400, L400.0001, L503.6030, L3000.0800, L100.9950, L3890.6006, L501.5101, L100.0100, L504.2610, L501.5200, L506.0200, L3410.9992, L101.9900, L3100.1350, L3200.1200, L503.6550, L3200.0500, L501.6710 #### [facility] [address] [place], [address] MCV (RBC) [Entitic vol] 87.5 fL Normal 81-99 [facility] Comment on above: Performed By: #### L 503.0106, L500.4050, L501.1400, L400.0001, L503.6030, L3000.0800, L100.9950, L3890.6006, L501.5101, L100.0100, L504.2610, L501.5200, L506.0200, L3410.9992, L101.9900, L3100.1350, L3200.1200, L503.6550, L3200.0500, L501.6710 #### [facility] [address] [place], [address] Monocytes/100 WBC (Bld) 5.2 % Normal 0-10 [facility] Comment on above: Performed By: #### L 503.0106, L500.4050, L501.1400, L400.0001, L503.6030, L3000.0800, L100.9950, L3890.6006, L501.5101, L100.0100, L504.2610, L501.5200, L506.0200, L3410.9992, L101.9900, L3100.1350, L3200.1200, L503.6550, L3200.0500, L501.6710 #### [facility] [address] [place], [place], [id number] (710) Neutrophils/100 WBC (Bld) 71.1 % High 47-70 [facility] Comment on above: Performed By: #### L 503.0106, L500.4050, L501.1400, L400.0001, L503.6030, L3000.0800, L100.9950, L3890.6006, L501.5101, L100.0100, L504.2610, L501.5200, L506.0200, L3410.9992, L101.9900, L3100.1350, L3200.1200, L503.6550, L3200.0500, L501.6710 #### [facility] [address] [place], [place], [id number] (861) Nucleated RBC (Bld) [#/Vol] 0 10*3/uL Normal 0-5 [facility] Comment on above: Performed By: #### L 503.0106, L500.4050, L501.1400, L400.0001, L503.6030, L3000.0800, L100.9950, L3890.6006, L501.5101, L100.0100, L504.2610, L501.5200, L506.0200, L3410.9992, L101.9900, L3100.1350, L3200.1200, L503.6550, L3200.0500, L501.6710 #### [facility] [address] [place], [address] Platelet mean volume (Bld) [Entitic vol] 9.9 fL Normal 6.2-12.0 [facility] Comment on above: Performed By: #### L 503.0106, L500.4050, L501.1400, L400.0001, L503.6030, L3000.0800, L100.9950, L3890.6006, L501.5101, L100.0100, L504.2610, L501.5200, L506.0200, L3410.9992, L101.9900, L3100.1350, L3200.1200, L503.6550, L3200.0500, L501.6710 #### [facility] [address] [place], [place], [address] [phone] Platelets (Bld) [#/Vol] 244 10*3/uL Normal 150-450 [facility] Comment on above: Performed By: #### L 503.0106, L500.4050, L501.1400, L400.0001, L503.6030, L3000.0800, L100.9950, L3890.6006, L501.5101, L100.0100, L504.2610, L501.5200, L506.0200, L3410.9992, L101.9900, L3100.1350, L3200.1200, L503.6550, L3200.0500, L501.6710 #### [facility] [address] [place], [place], [address] [phone] RBC (Bld) [#/Vol] 3.84 10*6/uL Low 4.2-5.4 [facility] Comment on above: Performed By: #### L 503.0106, L500.4050, L501.1400, L400.0001, L503.6030, L3000.0800, L100.9950, L3890.6006, L501.5101, L100.0100, L504.2610, L501.5200, L506.0200, L3410.9992, L101.9900, L3100.1350, L3200.1200, L503.6550, L3200.0500, L501.6710 #### [facility] [address] [place], [address] RDW SD 43.7 fl Normal 35.1-43.9 [facility] Comment on above: Performed By: #### L 503.0106, L500.4050, L501.1400, L400.0001, L503.6030, L3000.0800, L100.9950, L3890.6006, L501.5101, L100.0100, L504.2610, L501.5200, L506.0200, L3410.9992, L101.9900, L3100.1350, L3200.1200, L503.6550, L3200.0500, L501.6710 #### [facility] [address] [place], [address] WBC (Bld) [#/Vol] 5.7 10*3/uL Normal 4.4-11.0 [facility] Comment on above: Performed By: #### L 503.0106, L500.4050, L501.1400, L400.0001, L503.6030, L3000.0800, L100.9950, L3890.6006, L501.5101, L100.0100, L504.2610, L501.5200, L506.0200, L3410.9992, L101.9900, L3100.1350, L3200.1200, L503.6550, L3200.0500, L501.6710 #### [facility] [address] [place], [address] Calculated very low density lipoprotein (VLDL) cholesterol measurementOrdered By: Red Perez on 06-27-2025 Calculated very low density lipoprotein (VLDL) cholesterol measurement 45 mg/dL High 5-40 [facility] Carbon dioxide, total [Moles /volume] in Central venous bloodOrdered By: Red Perez on 06-27-2025 CO2 [Moles/Vol] 24.2 mmol/L 21.0-32.0 [facility] Chloride assayOrdered By: Yousuf Perez on 06-27-2025 Chloride [Moles/Vol] 98 mmol/L 98-108 [facility] Eosinophil percentageOrdered By: Red Perez on 06-27-2025 Eosinophils/100 WBC (Bld) 3.8 % 0-5 [facility] Erythrocyte distribution wid th ratioOrdered By: Red Perez on 06-27-2025 Erythrocyte distribution width (RBC) [Ratio] 13.9 % 11.6-14.6 [facility] Erythrocyte distribution wid th standard deviationOrdered By: Red Perez on 06-27-2025 Erythrocyte distribution width (RBC) [Ratio] 43.7 fl 35.1-43.9 [facility] Ferritinon 06-27-2025 Ferritin [Mass/Vol] 108 ng/mL Normal 22-378 [facility] Comment on above: Performed By: #### L 503.0106, L500.4050, L501.1400, L400.0001, L503.6030, L3000.0800, L100.9950, L3890.6006, L501.5101, L100.0100, L504.2610, L501.5200, L506.0200, L3410.9992, L101.9900, L3100.1350, L3200.1200, L503.6550, L3200.0500, L501.6710 #### [facility] [address] [place], [place], [id number] Glomerular filtration rate ( GFR) estimation/1.73 sq m using serum, plasma, or whole bOrdered By: Red Perez on 06-27-2025 GFR/1.73 sq M.predicted among non-blacks MDRD (S/P/Bld) [Vol rate/Area] 73 mL/min/{1.73_m2} >60 [facility] Comment on above: mL/min/1.73m2 CKD-EP I Creatinine Equation (2020) Hematocrit Auto (Bld) [Volum e fraction]Ordered By: Red Perez on 06-27-2025 Hematocrit (Bld) [Volume fraction] 33.6 % Low 37-47 [facility] Hemoglobin measurementOrdere d By: Red Perez on 06-27-2025 Hemoglobin (Bld) [Mass/Vol] 10.7 g/dL Low 12.0-15. 0 [facility] Immature granulocytes/100 WB C Auto (Bld)Ordered By: Red Perez on 06-27-2025 Immature granulocytes/100 WBC (Bld) 1.000 % High 0.0-0.9 [facility] Comment on above: IG% - Immature Granu locytes (promyelocytes, myelocytes and metamyelocytes) > 1% indicates that a LEFT SHIFT is Present. Iron measurement (mass/mass) Ordered By: Red Perez on 06-27-2025 Iron (Unsp spec) [Mass/Mass] 53 ug/dL 50-170 [facility] Iron+Iron Binding Capacityon 06-27-2025 Iron [Mass/Vol] 53 ug/dL Normal 50-170 [facility] Comment on above: Performed By: #### L 503.0106, L500.4050, L501.1400, L400.0001, L503.6030, L3000.0800, L100.9950, L3890.6006, L501.5101, L100.0100, L504.2610, L501.5200, L506.0200, L3410.9992, L101.9900, L3100.1350, L3200.1200, L503.6550, L3200.0500, L501.6710 #### [facility] [address] [place], [address] IRON SATURATION 14.0 Normal 13-59 [facility] Comment on above: Performed By: #### L 503.0106, L500.4050, L501.1400, L400.0001, L503.6030, L3000.0800, L100.9950, L3890.6006, L501.5101, L100.0100, L504.2610, L501.5200, L506.0200, L3410.9992, L101.9900, L3100.1350, L3200.1200, L503.6550, L3200.0500, L501.6710 #### [facility] [address] [place], [place], [id number] (563) TIBC 377 ug/dL Normal 250-450 [facility] Comment on above: Performed By: #### L 503.0106, L500.4050, L501.1400, L400.0001, L503.6030, L3000.0800, L100.9950, L3890.6006, L501.5101, L100.0100, L504.2610, L501.5200, L506.0200, L3410.9992, L101.9900, L3100.1350, L3200.1200, L503.6550, L3200.0500, L501.6710 #### [facility] [address] [place], [address] UIBC 324 ug/dL Normal 228-428 [facility] Comment on above: Performed By: #### L 503.0106, L500.4050, L501.1400, L400.0001, L503.6030, L3000.0800, L100.9950, L3890.6006, L501.5101, L100.0100, L504.2610, L501.5200, L506.0200, L3410.9992, L101.9900, L3100.1350, L3200.1200, L503.6550, L3200.0500, L501.6710 #### [facility] [address] [place], [place], [address] LDL calc ser/plasOrdered By: Red Perez on 06-27-2025 Cholesterol in LDL [Mass/Vol] 102 mg/dL [facility] Comment on above: Lkekvhufgo=689-745 m g/dL & Higher Nueo=556 mg/dL or greaterFriedwald Equation for LDL-C Lipid Profileon 06-27-2025 CHOL:HDL 5.31 Normal [facility] Comment on above: Performed By: #### L 503.0106, L500.4050, L501.1400, L400.0001, L503.6030, L3000.0800, L100.9950, L3890.6006, L501.5101, L100.0100, L504.2610, L501.5200, L506.0200, L3410.9992, L101.9900, L3100.1350, L3200.1200, L503.6550, L3200.0500, L501.6710 #### [facility] [address] [place], [address] Cholesterol [Mass/Vol] 181 mg/dL Normal <=200 [facility] Comment on above: Result Comment: Chol esterol level, Desirable <200 mg/dL Borderline high cholesterol 200-239 mg/dL High cholesterol >=240 mg/dL Recommendations of the NCEP Adult Treatment Panel for the following risk-cutoff thresholds for the [place] population. Performed By: #### L 503.0106, L500.4050, L501.1400, L400.0001, L503.6030, L3000.0800, L100.9950, L3890.6006, L501.5101, L100.0100, L504.2610, L501.5200, L506.0200, L3410.9992, L101.9900, L3100.1350, L3200.1200, L503.6550, L3200.0500, L501.6710 #### [facility] [address] [place], [place], [id number] Cholesterol in HDL [Mass/Vol] 34 mg/dL Low [facility] Comment on above: Result Comment: Mayda [...] L101.9900, L3100.1350, L3200.1200, L503.6550, L3200.0500, L501.6710 #### [facility] [address] [place], [place], [id number] Cholesterol in LDL [Mass/Vol] 102 mg/dL Normal [facility] Comment on above: Result Comment: Bord dewaxi=457-019 mg/dL Higher Jgbd=967 mg/dL or greater Friedwald Equation for LDL-C Performed By: #### L 503.0106, L500.4050, L501.1400, L400.0001, L503.6030, L3000.0800, L100.9950, L3890.6006, L501.5101, L100.0100, L504.2610, L501.5200, L506.0200, L3410.9992, L101.9900, L3100.1350, L3200.1200, L503.6550, L3200.0500, L501.6710 #### [facility] [address]. [place], [place], [id number] [phone] Cholesterol in VLDL [Mass/Vol] 45 mg/dL High 5-40 [facility] Comment on above: Performed By: #### L 503.0106, L500.4050, L501.1400, L400.0001, L503.6030, L3000.0800, L100.9950, L3890.6006, L501.5101, L100.0100, L504.2610, L501.5200, L506.0200, L3410.9992, L101.9900, L3100.1350, L3200.1200, L503.6550, L3200.0500, L501.6710 #### [facility] [address]. [place], [place], [id number] Triglyceride [Mass/Vol] 224 mg/dL High W [facility] Comment on above: Result Comment: The drugs N-Acetylcysteine and Metamizole may falsely depress this assay. Normal range: <150 mg/dL Borderline High: 150-199 mg/dL High: 200-499 mg/dL Very High: >500 mg/dL Performed By: #### L 503.0106, L500.4050, L501.1400, L400.0001, L503.6030, L3000.0800, L100.9950, L3890.6006, L501.5101, L100.0100, L504.2610, L501.5200, L506.0200, L3410.9992, L101.9900, L3100.1350, L3200.1200, L503.6550, L3200.0500, L501.6710 #### [facility] [address] [place], [place], [address] MCV (mean corpuscular volume ) determinationOrdered By: Red Perez on 06-27-2025 MCV (RBC) [Entitic vol] 87.5 fL 81-99 [facility] Mean corpuscular hemoglobin (MCH) determinationOrdered By: Red Perez on 06-27-2025 MCH (RBC) [Entitic mass] 27.9 pg 27.0-32.0 [facility] Mean corpuscular hemoglobin concentration (MCHC) determinationOrdered By: Red Perez on 06-27-2025 MCHC (RBC) [Mass/Vol] 31.8 g/dL Low 32-36 [facility] Mean platelet volume determi nationOrdered By: Red Perez on 06-27-2025 Platelet mean volume (Bld) [Entitic vol] 9.9 fL 6.2-12.0 [facility] Microalb:Creat Ratio,Random URon 06-27-2025 Creatinine [Mass/Vol] 91.20 mg/dL Normal 28.00-217.00 [facility] Comment on above: Performed By: #### L 503.0106, L500.4050, L501.1400, L400.0001, L503.6030, L3000.0800, L100.9950, L3890.6006, L501.5101, L100.0100, L504.2610, L501.5200, L506.0200, L3410.9992, L101.9900, L3100.1350, L3200.1200, L503.6550, L3200.0500, L501.6710 #### [facility] [address]. [place], [place], [id number] MALB:CREAT UNABLE TO CALCULATE Normal <30 mg/g CRE [facility] Comment on above: Performed By: #### L 503.0106, L500.4050, L501.1400, L400.0001, L503.6030, L3000.0800, L100.9950, L3890.6006, L501.5101, L100.0100, L504.2610, L501.5200, L506.0200, L3410.9992, L101.9900, L3100.1350, L3200.1200, L503.6550, L3200.0500, L501.6710 #### [facility] [address]. [place], [place], [id number] MICROALBUMIN,UR < 12.0 Normal <20 mg/L [facility] Comment on above: Performed By: #### L 503.0106, L500.4050, L501.1400, L400.0001, L503.6030, L3000.0800, L100.9950, L3890.6006, L501.5101, L100.0100, L504.2610, L501.5200, L506.0200, L3410.9992, L101.9900, L3100.1350, L3200.1200, L503.6550, L3200.0500, L501.6710 #### [facility] [address] [place], [place], [id number] Microalbumin/creat ratio urO rdered By: Red Perez on 06-27-2025 Urine microalbumin/creatinine ratio measurement UNABLE TO CALCULATE mg/g CRE <30 [facility] Monocyte percentageOrdered B y: Red Perez on 06-27-2025 Monocytes/100 WBC (Bld) 5.2 % 0-10 [facility] Neutrophil percentageOrdered By: Red Perez on 06-27-2025 Neutrophils/100 WBC (Bld) 71.1 % High 47-70 [facility] No Panel InformationOrdered By: Red Perez on 06-27-2025 Unsaturated Iron Binding Capacity 324 ug/dL 228-428 [facility] 324 ug/dL 228-428 [facility] Nucleated red blood cell per centageOrdered By: Red Perez on 06-27-2025 Nucleated RBC/100 WBC (Bld) [Ratio] 0 % 0-5 [facility] Platelet countOrdered By: Yousuf Perez on 06-27-2025 Platelets (Bld) [#/Vol] 244 10*3/uL 150-450 [facility] Potassium measurement (mass/ volume)Ordered By: Red Perez on 06-27-2025 Potassium (Unsp spec) [Mass/Vol] 3.7 mmol/L 3.3-5.1 [facility] RBC Auto (Bld) [#/Vol]Ordere d By: Red Perez on 06-27-2025 RBC (Bld) [#/Vol] 3.84 10*6/uL Low 4.2-5.4 [facility] Random urine creatinine sandy urement (mass/volume)Ordered By: Red Perez on 06-27-2025 Creatinine Unsp time (U) [Mass/Vol] 91.20 mg/dL 28.00-217.00 [facility] Screening total cholesterol/ high density lipoprotein (HDL) cholesterol ratioOrdered By: Red Perez on 06-27-2025 Cholesterol.total/Cholester ol in HDL [Mass ratio] 5.31 {ratio} [facility] Serum creatinine measurement (mass/volume)Ordered By: Red Perez on 06-27-2025 Creatinine [Mass/Vol] 0.93 mg/dL 0.70-1.20 [facility] Serum glucose measurement (m ass/volume)Ordered By: Red Perez on 06-27-2025 Glucose [Mass/Vol] 198 mg/dL High 70-99 [facility] Serum or plasma calcium sandy urement (mass/volume)Ordered By: Red Perez on 06-27-2025 Calcium [Mass/Vol] 8.7 mg/dL 7.6-11.0 [facility] Serum or plasma cholesterol in HDL measurement (mass/volume)Ordered By: Red Perez on 06-27-2025 Cholesterol in HDL [Mass/Vol] 34 mg/dL Low >40 [facility] Comment on above: National Cholesterol Education Program (NCEP) guidelines:<40 mg/dL: Low HDL-cholesterol (major risk factor for CHD)>= 60 mg/dL: High HDL-cholesterol (negative risk factor for CHD)HDL-cholesterol is affected by a number of factors, e.g. smoking, exercise, hormones, sex and age. Serum or plasma cholesterol measurement (mass/volume)Ordered By: Red Perez on 06-27-2025 Cholesterol [Mass/Vol] 181 mg/dL <201 [facility] Comment on above: Cholesterol level, D esirable <200 mg/dLBorderline high cholesterol 200-239 mg/dLHigh cholesterol >=240 mg/dLRecommendations of the NCEP Adult Treatment Panel for the following risk-cutoff thresholds for the [place] population. Serum or plasma ferritin darrel surement (mass/volume)Ordered By: Red Perez on 06-27-2025 Ferritin [Mass/Vol] 108 ng/mL 22-378 [facility] Serum or plasma iron saturat ion measurement (mass fraction)Ordered By: Red Perez on 06-27-2025 Iron saturation [Mass fraction] 14.0 % 13-59 [facility] Serum or plasma urea nitroge n measurement (mass/volume)Ordered By: Red Perez on 06-27-2025 Urea nitrogen [Mass/Vol] 10 mg/dL 4-19 [facility] Sodium levelOrdered By: Red Perez on 06-27-2025 Sodium [Moles/Vol] 139 mmol/L 133-145 [facility] Triglycerides measurementOrd ered By: Red Perez on 06-27-2025 Triglyceride [Mass/Vol] 224 mg/dL High <199 [facility] Comment on above: The drugs N-Acetylcy steine and Metamizole may falsely depress this assay. Normal range: <150 mg/dLBorderline High: 150-199 mg/dLHigh: 200-499 mg/dLVery High: >500 mg/dL Urine albumin measurement [facility] detection limit of 20 mg/L or less (mass/volume)Ordered By: Red Perez on 06-27-2025 Albumin DL <= 20 mg/L (U) [Mass/Vol] < 12.0 mg/L <20 mg/L [facility] White blood cell (WBC) count Ordered By: Red Perez on 06-27-2025 WBC (Bld) [#/Vol] 5.7 10*3/uL 4.4-11.0 [facility] Chest PA and Lateralon 06-15 Chest PA and Lateral [facility] Services [address] [place], [place] [address] Chest PA and Lateral MR#: [id number] Acct: [id number] Name: HEIDI ANDREWS Rep #: [id number] : 1970 F 55 From: Magdy Bowling PCP: Dr. Red Perez MD Status: REG CLI Study: Chest PA and Lateral Date of Exam: 06/15/25 Exam# [id number] Ordering Dr: Nikolai Kim MD PROCEDURE: CHEST [...] evidence of acute cardiopulmonary disease. Reading Location: [place] [address] CC: Dr. Red Perez MD; Dr. Nikolia Kim MD [employer]: Signed Normal [facility] Absolute lymphocyte countOrd ered By: Glen Chapman on 06-04-2025 Lymphocytes Auto (Unsp spec) [#/Vol] 1.05 10*3/uL 0.83-4.51 [facility] Absolute neutrophil countOrd ered By: Glen Chapman on 06-04-2025 Neutrophils (Bld) [#/Vol] 4.4 10*3/uL 2.0-7.7 [facility] Anion gap in Serum or Plasma Ordered By: Glen Chapman on 06-04-2025 Anion gap [Moles/Vol] 15 mmol/L 5-15 [facility] Automated lymphocyte count a s percentage of total leukocytesOrdered By: Glen Chapman on 06-04-2025 Lymphocytes/100 WBC Auto (Unsp spec) 17.1 % Low 19- [facility] BUN/creatinine ratioOrdered By: Glen Chapman on 06-04-2025 Urea nitrogen/Creatinine [Mass ratio] 10.3 mg/mg 10- [facility] Basophil percentageOrdered B y: Glen Chapman on 06-04-2025 Basophils/100 WBC (Bld) 0.5 % 0-1 [facility] Bilirubin, totalOrdered By: Glen Chapman on 06-04-2025 Bilirubin [Mass/Vol] 0.26 mg/dL 0.00-1.30 [facility] CBC W/Diff, Automatedon 05-16 Absolute Lymph 1.05 X10 3/uL Normal 0.83-4.51 [facility] Comment on above: Performed By: #### L 503.0106, L500.4050, L501.1400, L400.0001, L503.6030, L3000.0800, L100.9950, L3890.6006, L501.5101, L100.0100, L504.2610, L501.5200, L506.0200, L3410.9992, L101.9900, L3100.1350, L3200.1200, L503.6550, L3200.0500, L501.6710 #### [facility] [address] [place], [place], [id number] Absolute Neut 4.4 X10 3/uL Normal 2.0-7.7 [facility] Comment on above: Performed By: #### L 503.0106, L500.4050, L501.1400, L400.0001, L503.6030, L3000.0800, L100.9950, L3890.6006, L501.5101, L100.0100, L504.2610, L501.5200, L506.0200, L3410.9992, L101.9900, L3100.1350, L3200.1200, L503.6550, L3200.0500, L501.6710 #### [facility] [address] [place], [address] Basophils/100 WBC (Bld) 0.5 % Normal 0-1 [facility] Comment on above: Performed By: #### L 503.0106, L500.4050, L501.1400, L400.0001, L503.6030, L3000.0800, L100.9950, L3890.6006, L501.5101, L100.0100, L504.2610, L501.5200, L506.0200, L3410.9992, L101.9900, L3100.1350, L3200.1200, L503.6550, L3200.0500, L501.6710 #### [facility] [address] [place], [place], [id number] (857) Eosinophils/100 WBC (Bld) 4.7 % Normal 0-5 [facility] Comment on above: Performed By: #### L 503.0106, L500.4050, L501.1400, L400.0001, L503.6030, L3000.0800, L100.9950, L3890.6006, L501.5101, L100.0100, L504.2610, L501.5200, L506.0200, L3410.9992, L101.9900, L3100.1350, L3200.1200, L503.6550, L3200.0500, L501.6710 #### [facility] [address] [place], [address] Erythrocyte distribution width (RBC) [Ratio] 15.2 % High 11.6-14.6 [facility] Comment on above: Performed By: #### L 503.0106, L500.4050, L501.1400, L400.0001, L503.6030, L3000.0800, L100.9950, L3890.6006, L501.5101, L100.0100, L504.2610, L501.5200, L506.0200, L3410.9992, L101.9900, L3100.1350, L3200.1200, L503.6550, L3200.0500, L501.6710 #### [facility] [address] [place], [address] Hematocrit (Bld) [Volume fraction] 35.0 % Low 37-47 [facility] Comment on above: Performed By: #### L 503.0106, L500.4050, L501.1400, L400.0001, L503.6030, L3000.0800, L100.9950, L3890.6006, L501.5101, L100.0100, L504.2610, L501.5200, L506.0200, L3410.9992, L101.9900, L3100.1350, L3200.1200, L503.6550, L3200.0500, L501.6710 #### [facility] [address] [place], [address] Hemoglobin (Bld) [Mass/Vol] 11.3 g/dL Low 12.0-15. 0 [facility] Comment on above: Performed By: #### L 503.0106, L500.4050, L501.1400, L400.0001, L503.6030, L3000.0800, L100.9950, L3890.6006, L501.5101, L100.0100, L504.2610, L501.5200, L506.0200, L3410.9992, L101.9900, L3100.1350, L3200.1200, L503.6550, L3200.0500, L501.6710 #### [facility] [address] [place], [address] IG% 1.300 High 0.0-0.9 [facility] Comment on above: Result Comment: IG% - Immature Granulocytes (promyelocytes, myelocytes and metamyelocytes) > 1% indicates that a LEFT SHIFT is Present. Performed By: #### L 503.0106, L500.4050, L501.1400, L400.0001, L503.6030, L3000.0800, L100.9950, L3890.6006, L501.5101, L100.0100, L504.2610, L501.5200, L506.0200, L3410.9992, L101.9900, L3100.1350, L3200.1200, L503.6550, L3200.0500, L501.6710 #### [facility] [address] [place], [address] Lymphocytes/100 WBC (Bld) 17.1 % Low 19-41 [facility] Comment on above: Performed By: #### L 503.0106, L500.4050, L501.1400, L400.0001, L503.6030, L3000.0800, L100.9950, L3890.6006, L501.5101, L100.0100, L504.2610, L501.5200, L506.0200, L3410.9992, L101.9900, L3100.1350, L3200.1200, L503.6550, L3200.0500, L501.6710 #### [facility] [address] [place], [address] MCH (RBC) [Entitic mass] 28.0 pg Normal 27.0-32.0 [facility] Comment on above: Performed By: #### L 503.0106, L500.4050, L501.1400, L400.0001, L503.6030, L3000.0800, L100.9950, L3890.6006, L501.5101, L100.0100, L504.2610, L501.5200, L506.0200, L3410.9992, L101.9900, L3100.1350, L3200.1200, L503.6550, L3200.0500, L501.6710 #### [facility] [address] [place], [place], [id number] MCHC (RBC) [Mass/Vol] 32.3 g/dL Normal 32-36 [facility] Comment on above: Performed By: #### L 503.0106, L500.4050, L501.1400, L400.0001, L503.6030, L3000.0800, L100.9950, L3890.6006, L501.5101, L100.0100, L504.2610, L501.5200, L506.0200, L3410.9992, L101.9900, L3100.1350, L3200.1200, L503.6550, L3200.0500, L501.6710 #### [facility] [address] [place], [place], [id number] MCV (RBC) [Entitic vol] 86.6 fL Normal 81-99 [facility] Comment on above: Performed By: #### L 503.0106, L500.4050, L501.1400, L400.0001, L503.6030, L3000.0800, L100.9950, L3890.6006, L501.5101, L100.0100, L504.2610, L501.5200, L506.0200, L3410.9992, L101.9900, L3100.1350, L3200.1200, L503.6550, L3200.0500, L501.6710 #### [facility] [address] [place], [address] Monocytes/100 WBC (Bld) 5.5 % Normal 0-10 [facility] Comment on above: Performed By: #### L 503.0106, L500.4050, L501.1400, L400.0001, L503.6030, L3000.0800, L100.9950, L3890.6006, L501.5101, L100.0100, L504.2610, L501.5200, L506.0200, L3410.9992, L101.9900, L3100.1350, L3200.1200, L503.6550, L3200.0500, L501.6710 #### [facility] [address] [place], [address] Neutrophils/100 WBC (Bld) 70.9 % High 47-70 [facility] Comment on above: Performed By: #### L 503.0106, L500.4050, L501.1400, L400.0001, L503.6030, L3000.0800, L100.9950, L3890.6006, L501.5101, L100.0100, L504.2610, L501.5200, L506.0200, L3410.9992, L101.9900, L3100.1350, L3200.1200, L503.6550, L3200.0500, L501.6710 #### [facility] [address] [place], [address] Nucleated RBC (Bld) [#/Vol] 0 10*3/uL Normal 0-5 [facility] Comment on above: Performed By: #### L 503.0106, L500.4050, L501.1400, L400.0001, L503.6030, L3000.0800, L100.9950, L3890.6006, L501.5101, L100.0100, L504.2610, L501.5200, L506.0200, L3410.9992, L101.9900, L3100.1350, L3200.1200, L503.6550, L3200.0500, L501.6710 #### [facility] [address] [place], [address] Platelet mean volume (Bld) [Entitic vol] 9.6 fL Normal 6.2-12.0 [facility] Comment on above: Performed By: #### L 503.0106, L500.4050, L501.1400, L400.0001, L503.6030, L3000.0800, L100.9950, L3890.6006, L501.5101, L100.0100, L504.2610, L501.5200, L506.0200, L3410.9992, L101.9900, L3100.1350, L3200.1200, L503.6550, L3200.0500, L501.6710 #### [facility] [address] [place], [address] Platelets (Bld) [#/Vol] 241 10*3/uL Normal 150-450 [facility] Comment on above: Performed By: #### L 503.0106, L500.4050, L501.1400, L400.0001, L503.6030, L3000.0800, L100.9950, L3890.6006, L501.5101, L100.0100, L504.2610, L501.5200, L506.0200, L3410.9992, L101.9900, L3100.1350, L3200.1200, L503.6550, L3200.0500, L501.6710 #### [facility] [address] [place], [address] RBC (Bld) [#/Vol] 4.04 10*6/uL Low 4.2-5.4 [facility] Comment on above: Performed By: #### L 503.0106, L500.4050, L501.1400, L400.0001, L503.6030, L3000.0800, L100.9950, L3890.6006, L501.5101, L100.0100, L504.2610, L501.5200, L506.0200, L3410.9992, L101.9900, L3100.1350, L3200.1200, L503.6550, L3200.0500, L501.6710 #### [facility] [address] [place], [address] RDW SD 47.2 fl High 35.1-43.9 [facility] Comment on above: Performed By: #### L 503.0106, L500.4050, L501.1400, L400.0001, L503.6030, L3000.0800, L100.9950, L3890.6006, L501.5101, L100.0100, L504.2610, L501.5200, L506.0200, L3410.9992, L101.9900, L3100.1350, L3200.1200, L503.6550, L3200.0500, L501.6710 #### [facility] [address] [place], [address] WBC (Bld) [#/Vol] 6.2 10*3/uL Normal 4.4-11.0 [facility] Comment on above: Performed By: #### L 503.0106, L500.4050, L501.1400, L400.0001, L503.6030, L3000.0800, L100.9950, L3890.6006, L501.5101, L100.0100, L504.2610, L501.5200, L506.0200, L3410.9992, L101.9900, L3100.1350, L3200.1200, L503.6550, L3200.0500, L501.6710 #### [facility] [address] [place], [address] CRPon 06-04-2025 C-REACTIVE PROT 23.30 mg/L High 0.0-3.0 [facility] Comment on above: Performed By: #### L 503.0106, L500.4050, L501.1400, L400.0001, L503.6030, L3000.0800, L100.9950, L3890.6006, L501.5101, L100.0100, L504.2610, L501.5200, L506.0200, L3410.9992, L101.9900, L3100.1350, L3200.1200, L503.6550, L3200.0500, L501.6710 #### [facility] [address] [place], [address] Carbon dioxide, total [Moles /volume] in Central venous bloodOrdered By: Glen Chapman on 06-04-2025 CO2 [Moles/Vol] 24.0 mmol/L 21.0-32.0 [facility] Chloride assayOrdered By: Jaimee Chapman on 06-04-2025 Chloride [Moles/Vol] 96 mmol/L Low 98-108 [facility] Comprehensive Metabolic Prof ilon 06-04-2025 Albumin [Mass/Vol] 4.2 g/dL Normal 3.5-5.0 [facility] Comment on above: Performed By: #### L 503.0106, L500.4050, L501.1400, L400.0001, L503.6030, L3000.0800, L100.9950, L3890.6006, L501.5101, L100.0100, L504.2610, L501.5200, L506.0200, L3410.9992, L101.9900, L3100.1350, L3200.1200, L503.6550, L3200.0500, L501.6710 #### [facility] [address] [place], [address] Albumin/Globulin [Mass ratio] 1.6 {ratio} Normal 0.9-2.4 [facility] Comment on above: Performed By: #### L 503.0106, L500.4050, L501.1400, L400.0001, L503.6030, L3000.0800, L100.9950, L3890.6006, L501.5101, L100.0100, L504.2610, L501.5200, L506.0200, L3410.9992, L101.9900, L3100.1350, L3200.1200, L503.6550, L3200.0500, L501.6710 #### [facility] [address] [place], [place], [id number] ALK PHOS 83 U/L Normal 35-104 [facility] Comment on above: Performed By: #### L 503.0106, L500.4050, L501.1400, L400.0001, L503.6030, L3000.0800, L100.9950, L3890.6006, L501.5101, L100.0100, L504.2610, L501.5200, L506.0200, L3410.9992, L101.9900, L3100.1350, L3200.1200, L503.6550, L3200.0500, L501.6710 #### [facility] [address] [place], [address] ALT [Catalytic activity/Vol] 12 U/L Normal <=34 [facility] Comment on above: Performed By: #### L 503.0106, L500.4050, L501.1400, L400.0001, L503.6030, L3000.0800, L100.9950, L3890.6006, L501.5101, L100.0100, L504.2610, L501.5200, L506.0200, L3410.9992, L101.9900, L3100.1350, L3200.1200, L503.6550, L3200.0500, L501.6710 #### [facility] [address] [place], [address] AST [Catalytic activity/Vol] 17 U/L Normal <=31 [facility] Comment on above: Performed By: #### L 503.0106, L500.4050, L501.1400, L400.0001, L503.6030, L3000.0800, L100.9950, L3890.6006, L501.5101, L100.0100, L504.2610, L501.5200, L506.0200, L3410.9992, L101.9900, L3100.1350, L3200.1200, L503.6550, L3200.0500, L501.6710 #### [facility] [address] [place], [address] Bilirubin [Mass/Vol] 0.26 mg/dL Normal 0.00-1.30 [facility] Comment on above: Performed By: #### L 503.0106, L500.4050, L501.1400, L400.0001, L503.6030, L3000.0800, L100.9950, L3890.6006, L501.5101, L100.0100, L504.2610, L501.5200, L506.0200, L3410.9992, L101.9900, L3100.1350, L3200.1200, L503.6550, L3200.0500, L501.6710 #### [facility] [address] [place], [address] BUN/CRE 10.3 RATIO Normal 10-20 [facility] Comment on above: Performed By: #### L 503.0106, L500.4050, L501.1400, L400.0001, L503.6030, L3000.0800, L100.9950, L3890.6006, L501.5101, L100.0100, L504.2610, L501.5200, L506.0200, L3410.9992, L101.9900, L3100.1350, L3200.1200, L503.6550, L3200.0500, L501.6710 #### [facility] [address] [place], [place], [id number] (494) Calcium [Mass/Vol] 9.1 mg/dL Normal 7.6-11.0 [facility] Comment on above: Performed By: #### L 503.0106, L500.4050, L501.1400, L400.0001, L503.6030, L3000.0800, L100.9950, L3890.6006, L501.5101, L100.0100, L504.2610, L501.5200, L506.0200, L3410.9992, L101.9900, L3100.1350, L3200.1200, L503.6550, L3200.0500, L501.6710 #### [facility] [address] [place], [address] Chloride [Moles/Vol] 96 mmol/L Low 98-108 [facility] Comment on above: Performed By: #### L 503.0106, L500.4050, L501.1400, L400.0001, L503.6030, L3000.0800, L100.9950, L3890.6006, L501.5101, L100.0100, L504.2610, L501.5200, L506.0200, L3410.9992, L101.9900, L3100.1350, L3200.1200, L503.6550, L3200.0500, L501.6710 #### [facility] [address] [place], [address] CO2 [Moles/Vol] 24.0 mmol/L Normal 21.0-32.0 [facility] Comment on above: Performed By: #### L 503.0106, L500.4050, L501.1400, L400.0001, L503.6030, L3000.0800, L100.9950, L3890.6006, L501.5101, L100.0100, L504.2610, L501.5200, L506.0200, L3410.9992, L101.9900, L3100.1350, L3200.1200, L503.6550, L3200.0500, L501.6710 #### [facility] [address] [place], [place], [id number] Creatinine [Mass/Vol] 0.83 mg/dL Normal 0.70-1.20 [facility] Comment on above: Performed By: #### L 503.0106, L500.4050, L501.1400, L400.0001, L503.6030, L3000.0800, L100.9950, L3890.6006, L501.5101, L100.0100, L504.2610, L501.5200, L506.0200, L3410.9992, L101.9900, L3100.1350, L3200.1200, L503.6550, L3200.0500, L501.6710 #### [facility] [address] [place], [address] ECRCL 104.65 ml/min Normal 50-250 [facility] Comment on above: Performed By: #### L 503.0106, L500.4050, L501.1400, L400.0001, L503.6030, L3000.0800, L100.9950, L3890.6006, L501.5101, L100.0100, L504.2610, L501.5200, L506.0200, L3410.9992, L101.9900, L3100.1350, L3200.1200, L503.6550, L3200.0500, L501.6710 #### [facility] [address] [place], [place], [id number] GAP 15 Normal 5-15 [facility] Comment on above: Performed By: #### L 503.0106, L500.4050, L501.1400, L400.0001, L503.6030, L3000.0800, L100.9950, L3890.6006, L501.5101, L100.0100, L504.2610, L501.5200, L506.0200, L3410.9992, L101.9900, L3100.1350, L3200.1200, L503.6550, L3200.0500, L501.6710 #### [facility] [address] [place], [address] GFR/1.73 sq M.predicted among non-blacks MDRD (S/P/Bld) [Vol rate/Area] 84 mL/min/{1.73_m2} Normal >60 [facility] Comment on above: Result Comment: mL/m in/1.73m2 CKD-EPI Creatinine Equation (2020) Performed By: #### L 503.0106, L500.4050, L501.1400, L400.0001, L503.6030, L3000.0800, L100.9950, L3890.6006, L501.5101, L100.0100, L504.2610, L501.5200, L506.0200, L3410.9992, L101.9900, L3100.1350, L3200.1200, L503.6550, L3200.0500, L501.6710 #### [facility] [address] [place], [place], [id number] Globulin (S) [Mass/Vol] 2.7 g/dL Normal 2.2-4.2 [facility] Comment on above: Performed By: #### L 503.0106, L500.4050, L501.1400, L400.0001, L503.6030, L3000.0800, L100.9950, L3890.6006, L501.5101, L100.0100, L504.2610, L501.5200, L506.0200, L3410.9992, L101.9900, L3100.1350, L3200.1200, L503.6550, L3200.0500, L501.6710 #### [facility] [address] [place], [address] Glucose [Mass/Vol] 283 mg/dL High 70-99 [facility] Comment on above: Performed By: #### L 503.0106, L500.4050, L501.1400, L400.0001, L503.6030, L3000.0800, L100.9950, L3890.6006, L501.5101, L100.0100, L504.2610, L501.5200, L506.0200, L3410.9992, L101.9900, L3100.1350, L3200.1200, L503.6550, L3200.0500, L501.6710 #### [facility] [address] [place], [address] Potassium [Moles/Vol] 3.7 mmol/L Normal 3.3-5.1 [facility] Comment on above: Performed By: #### L 503.0106, L500.4050, L501.1400, L400.0001, L503.6030, L3000.0800, L100.9950, L3890.6006, L501.5101, L100.0100, L504.2610, L501.5200, L506.0200, L3410.9992, L101.9900, L3100.1350, L3200.1200, L503.6550, L3200.0500, L501.6710 #### [facility] [address] [place], [address] Sodium [Moles/Vol] 135 mmol/L Normal 133-145 [facility] Comment on above: Performed By: #### L 503.0106, L500.4050, L501.1400, L400.0001, L503.6030, L3000.0800, L100.9950, L3890.6006, L501.5101, L100.0100, L504.2610, L501.5200, L506.0200, L3410.9992, L101.9900, L3100.1350, L3200.1200, L503.6550, L3200.0500, L501.6710 #### [facility] [address] [place], [place], [id number] (435) T PROT 6.9 g/dL Normal 5.9-8.4 [facility] Comment on above: Performed By: #### L 503.0106, L500.4050, L501.1400, L400.0001, L503.6030, L3000.0800, L100.9950, L3890.6006, L501.5101, L100.0100, L504.2610, L501.5200, L506.0200, L3410.9992, L101.9900, L3100.1350, L3200.1200, L503.6550, L3200.0500, L501.6710 #### [facility] [address] [place], [address] Urea nitrogen [Mass/Vol] 9 mg/dL Normal 4-19 [facility] Comment on above: Performed By: #### L 503.0106, L500.4050, L501.1400, L400.0001, L503.6030, L3000.0800, L100.9950, L3890.6006, L501.5101, L100.0100, L504.2610, L501.5200, L506.0200, L3410.9992, L101.9900, L3100.1350, L3200.1200, L503.6550, L3200.0500, L501.6710 #### [facility] [address] [place], [address] Eosinophil percentageOrdered By: Glen Chapman on 06-04-2025 Eosinophils/100 WBC (Bld) 4.7 % 0-5 [facility] Erythrocyte Sed Rateon 06-04 SED RATE 18 mm/hr Normal 0-30 [facility] Comment on above: Performed By: #### L 503.0106, L500.4050, L501.1400, L400.0001, L503.6030, L3000.0800, L100.9950, L3890.6006, L501.5101, L100.0100, L504.2610, L501.5200, L506.0200, L3410.9992, L101.9900, L3100.1350, L3200.1200, L503.6550, L3200.0500, L501.6710 #### [facility] [address] [place], [address] Erythrocyte distribution wid th ratioOrdered By: Glen Chapman on 06-04-2025 Erythrocyte distribution width (RBC) [Ratio] 15.2 % High 11.6-14.6 [facility] Erythrocyte distribution wid th standard deviationOrdered By: Glen Chapman on 06-04-2025 Erythrocyte distribution width (RBC) [Ratio] 47.2 fl High 35.1-43.9 [facility] Erythrocyte sedimentation ra teOrdered By: Glen Chapman on 06-04-2025 ESR (Bld) [Velocity] 18 mm/h 0-30 [facility] Ferritinon 06-04-2025 Ferritin [Mass/Vol] 76 ng/mL Normal 22-378 [facility] Comment on above: Performed By: #### L 503.0106, L500.4050, L501.1400, L400.0001, L503.6030, L3000.0800, L100.9950, L3890.6006, L501.5101, L100.0100, L504.2610, L501.5200, L506.0200, L3410.9992, L101.9900, L3100.1350, L3200.1200, L503.6550, L3200.0500, L501.6710 #### [facility] [address] [place], [address] Glomerular filtration rate ( GFR) estimation/1.73 sq m using serum, plasma, or whole bOrdered By: Glen Chapman on 06-04-2025 GFR/1.73 sq M.predicted among non-blacks MDRD (S/P/Bld) [Vol rate/Area] 84 mL/min/{1.73_m2} >60 [facility] Comment on above: mL/min/1.73m2 CKD-EP I Creatinine Equation (2020) Hematocrit Auto (Bld) [Volum e fraction]Ordered By: Glen Chapman on 06-04-2025 Hematocrit (Bld) [Volume fraction] 35.0 % Low 37-47 [facility] Hemoglobin measurementOrdere d By: Glen Chapman on 06-04-2025 Hemoglobin (Bld) [Mass/Vol] 11.3 g/dL Low 12.0-15. 0 [facility] Immature granulocytes/100 WB C Auto (Bld)Ordered By: Glen Chapman on 06-04-2025 Immature granulocytes/100 WBC (Bld) 1.300 % High 0.0-0.9 [facility] Comment on above: IG% - Immature Granu locytes (promyelocytes, myelocytes and metamyelocytes) > 1% indicates that a LEFT SHIFT is Present. Iron measurement (mass/mass) Ordered By: Glen Chapman on 06-04-2025 Iron (Unsp spec) [Mass/Mass] 57 ug/dL 50-170 [facility] Iron+Iron Binding Capacityon 06-04-2025 Iron [Mass/Vol] 57 ug/dL Normal 50-170 [facility] Comment on above: Performed By: #### L 503.0106, L500.4050, L501.1400, L400.0001, L503.6030, L3000.0800, L100.9950, L3890.6006, L501.5101, L100.0100, L504.2610, L501.5200, L506.0200, L3410.9992, L101.9900, L3100.1350, L3200.1200, L503.6550, L3200.0500, L501.6710 #### [facility] [place], [address] IRON SATURATION 14.0 Normal 13-59 [facility] Comment on above: Performed By: #### L 503.0106, L500.4050, L501.1400, L400.0001, L503.6030, L3000.0800, L100.9950, L3890.6006, L501.5101, L100.0100, L504.2610, L501.5200, L506.0200, L3410.9992, L101.9900, L3100.1350, L3200.1200, L503.6550, L3200.0500, L501.6710 #### [facility] [address] [place], [place], [id number] (315) TIBC 395 ug/dL Normal 250-450 [facility] Comment on above: Performed By: #### L 503.0106, L500.4050, L501.1400, L400.0001, L503.6030, L3000.0800, L100.9950, L3890.6006, L501.5101, L100.0100, L504.2610, L501.5200, L506.0200, L3410.9992, L101.9900, L3100.1350, L3200.1200, L503.6550, L3200.0500, L501.6710 #### [facility] [address] [place], [place], [id number] UIBC 338 ug/dL Normal 228-428 [facility] Comment on above: Performed By: #### L 503.0106, L500.4050, L501.1400, L400.0001, L503.6030, L3000.0800, L100.9950, L3890.6006, L501.5101, L100.0100, L504.2610, L501.5200, L506.0200, L3410.9992, L101.9900, L3100.1350, L3200.1200, L503.6550, L3200.0500, L501.6710 #### [facility] [address] [facility] [place], [place], [id number] LDHon 06-04-2025 LDH 167 U/L Normal 84-246 [facility] Comment on above: Order Comment: 1 Performed By: #### L 503.0106, L500.4050, L501.1400, L400.0001, L503.6030, L3000.0800, L100.9950, L3890.6006, L501.5101, L100.0100, L504.2610, L501.5200, L506.0200, L3410.9992, L101.9900, L3100.1350, L3200.1200, L503.6550, L3200.0500, L501.6710 #### [facility] [address] [place], [address] Laboratory - Chemistry and C hemistry - challengeOrdered By: [facility] on 06-04-20[facility] AST [Catalytic activity/Vol] 17 U/L <32 [facility] Lactate dehydrogenase (LDH) measurementOrdered By: [facility] LDH [Catalytic activity/Vol] 167 U/L 84-246 [facility] MCV (mean corpuscular volume ) determinationOrdered By: [facility] MCV (RBC) [Entitic vol] 86.6 fL 81-99 [facility] Magnesiumon 06-04-2025 Magnesium [Mass/Vol] 1.5 mg/dL Normal 1.5-2.2 [facility] Comment on above: Performed By: #### L 503.0106, L500.4050, L501.1400, L400.0001, L503.6030, L3000.0800, L100.9950, L3890.6006, L501.5101, L100.0100, L504.2610, L501.5200, L506.0200, L3410.9992, L101.9900, L3100.1350, L3200.1200, L503.6550, L3200.0500, L501.6710 #### [facility] [address] [place], [place], [id number] Magnesium measurement (mass/ volume)Ordered By: Glen Chapman on 06-04-2025 Magnesium (Unsp spec) [Mass/Vol] 1.5 mg/dL 1.5-2.2 [facility] Mean corpuscular hemoglobin (MCH) determinationOrdered By: Glen Chapman on 06-04-2025 MCH (RBC) [Entitic mass] 28.0 pg 27.0-32.0 [facility] Mean corpuscular hemoglobin concentration (MCHC) determinationOrdered By: Glen Chapman on 06-04-2025 MCHC (RBC) [Mass/Vol] 32.3 g/dL 32-36 [facility] Mean platelet volume determi nationOrdered By: Glen Chapman on 06-04-2025 Platelet mean volume (Bld) [Entitic vol] 9.6 fL 6.2-12.0 [facility] Monocyte percentageOrdered B y: Glen Chapman on 06-04-2025 Monocytes/100 WBC (Bld) 5.5 % 0-10 [facility] Neutrophil percentageOrdered By: Glen Chapman on 06-04-2025 Neutrophils/100 WBC (Bld) 70.9 % High 47-70 [facility] No Panel InformationOrdered By: Glen Chapman on 06-04-2025 Unsaturated Iron Binding Capacity 338 ug/dL 228-428 [facility] Nucleated red blood cell per centageOrdered By: Glen Chapman on 06-04-2025 Nucleated RBC/100 WBC (Bld) [Ratio] 0 % 0-5 [facility] Oncology Visit Reporton 05-16 Oncology Visit Report [facility] [address] [place] [address] OFFICE VISIT Date of Service: 06/04/25 1109 MR#: [id number] Acct: [id number] Name: HEIDI ANDREWS Rep #: [id number] : 1970 From: Glen Chapman MD Age/Sex: 55/F Location: [facility] Status: Signed HPI Subjective Date [...] anemia, unspe (more content not included)... Normal [facility] Phosphoruson 06-04-2025 Phosphate [Mass/Vol] 2.4 mg/dL Low 2.7-4.5 [facility] Comment on above: Performed By: #### L 503.0106, L500.4050, L501.1400, L400.0001, L503.6030, L3000.0800, L100.9950, L3890.6006, L501.5101, L100.0100, L504.2610, L501.5200, L506.0200, L3410.9992, L101.9900, L3100.1350, L3200.1200, L503.6550, L3200.0500, L501.6710 #### [facility] [address] [place], [place] [address] [facility] [place], [address] Platelet countOrdered By: Jaimee Chapman on 06-04-2025 Platelets (Bld) [#/Vol] 241 10*3/uL 150-450 [facility] Potassium measurement (mass/ volume)Ordered By: Glen Chapman on 06-04-2025 Potassium (Unsp spec) [Mass/Vol] 3.7 mmol/L 3.3-5.1 [facility] RBC Auto (Bld) [#/Vol]Ordere d By: Glen Chapman on 06-04-2025 RBC (Bld) [#/Vol] 4.04 10*6/uL Low 4.2-5.4 [facility] Serum creatinine measurement (mass/volume)Ordered By: Glen Chapman on 06-04-2025 Creatinine [Mass/Vol] 0.83 mg/dL 0.70-1.20 [facility] Serum globulin measurementOr dered By: Glen Chapman on 06-04-2025 Globulin (S) [Mass/Vol] 2.7 g/dL 2.2-4.2 [facility] Serum glucose measurement (m ass/volume)Ordered By: Glen Chapman on 06-04-2025 Glucose [Mass/Vol] 283 mg/dL High 70-99 [facility] Serum or plasma C reactive p rotein measurement (mass/volume)Ordered By: Glen Chapman on 06-04-2025 CRP [Mass/Vol] 23.30 mg/L High 0.0-3.0 [facility] Serum or plasma alanine cueto otransferase (ALT) measurementOrdered By: Glen Chapman on 06-04-2025 ALT [Catalytic activity/Vol] 12 U/L <35 [facility] Serum or plasma albumin sandy urement (mass/volume)Ordered By: Glen Chapman on 06-04-2025 Albumin [Mass/Vol] 4.2 g/dL 3.5-5.0 [facility] Serum or plasma albumin/glob ulin mass ratioOrdered By: Glen Chapman on 06-04-2025 Albumin/Globulin [Mass ratio] 1.6 {ratio} 0.9-2.4 [facility] Serum or plasma alkaline rebecca sphatase measurementOrdered By: Glen Chapman on 06-04-2025 ALP [Catalytic activity/Vol] 83 U/L 35-104 [facility] Serum or plasma calcium sandy urement (mass/volume)Ordered By: Glen Chapman on 06-04-2025 Calcium [Mass/Vol] 9.1 mg/dL 7.6-11.0 [facility] Serum or plasma ferritin darrel surement (mass/volume)Ordered By: Glen Chapman on 06-04-2025 Ferritin [Mass/Vol] 76 ng/mL 22-378 [facility] Serum or plasma iron saturat ion measurement (mass fraction)Ordered By: Glen Chapman on 06-04-2025 Iron saturation [Mass fraction] 14.0 % 13-59 [facility] Serum or plasma urea nitroge n measurement (mass/volume)Ordered By: Glen Chapman on 06-04-2025 Urea nitrogen [Mass/Vol] 9 mg/dL 4-19 [facility] Sodium levelOrdered By: Cy Chapman on 06-04-2025 Sodium [Moles/Vol] 135 mmol/L 133-145 [facility] Total proteinOrdered By: Vasquez Chapman on 06-04-2025 Protein [Mass/Vol] 6.9 g/dL 5.9-8.4 [facility] Vitamin B12on 06-04-2025 Cobalamin (Vitamin B12) [Mass/Vol] 416 pg/mL Normal 180-914 [facility] Comment on above: Performed By: #### L 503.0106, L500.4050, L501.1400, L400.0001, L503.6030, L3000.0800, L100.9950, L3890.6006, L501.5101, L100.0100, L504.2610, L501.5200, L506.0200, L3410.9992, L101.9900, L3100.1350, L3200.1200, L503.6550, L3200.0500, L501.6710 #### [facility] [place], [address] Vitamin B12 ser/plasOrdered By: Glen Chapman on 06-04-2025 Cobalamin (Vitamin B12) [Mass/Vol] 416 pg/mL 180-914 [facility] White blood cell (WBC) count Ordered By: Glen Chapman on 06-04-2025 WBC (Bld) [#/Vol] 6.2 10*3/uL 4.4-11.0 [facility] Absolute lymphocyte countOrd ered By: Glen Chapman on 05-07-2025 Lymphocytes Auto (Unsp spec) [#/Vol] 1.11 10*3/uL 0.83-4.51 [facility] Absolute neutrophil countOrd ered By: Glen Chapman on 05-07-2025 Neutrophils (Bld) [#/Vol] 2.9 10*3/uL 2.0-7.7 [facility] Automated lymphocyte count a s percentage of total leukocytesOrdered By: Glen Chapman on 05-07-2025 Lymphocytes/100 WBC Auto (Unsp spec) 23.9 % 19-41 [facility] Basophil percentageOrdered B y: Glen Chapman on 05-07-2025 Basophils/100 WBC (Bld) 0.4 % 0-1 [facility] CBC W/Diff, Automatedon 04-16 Absolute Lymph 1.11 X10 3/uL Normal 0.83-4.51 [facility] Comment on above: Performed By: #### L 503.0106, L500.4050, L501.1400, L400.0001, L503.6030, L3000.0800, L100.9950, L3890.6006, L501.5101, L100.0100, L504.2610, L501.5200, L506.0200, L3410.9992, L101.9900, L3100.1350, L3200.1200, L503.6550, L3200.0500, L501.6710 #### [facility] [address] [place], [place], [id number] (059) Absolute Neut 2.9 X10 3/uL Normal 2.0-7.7 [facility] Comment on above: Performed By: #### L 503.0106, L500.4050, L501.1400, L400.0001, L503.6030, L3000.0800, L100.9950, L3890.6006, L501.5101, L100.0100, L504.2610, L501.5200, L506.0200, L3410.9992, L101.9900, L3100.1350, L3200.1200, L503.6550, L3200.0500, L501.6710 #### [facility] [address] [place], [place], [id number] Basophils/100 WBC (Bld) 0.4 % Normal 0-1 [facility] Comment on above: Performed By: #### L 503.0106, L500.4050, L501.1400, L400.0001, L503.6030, L3000.0800, L100.9950, L3890.6006, L501.5101, L100.0100, L504.2610, L501.5200, L506.0200, L3410.9992, L101.9900, L3100.1350, L3200.1200, L503.6550, L3200.0500, L501.6710 #### [facility] [address] [place], [place], [id number] (863) Eosinophils/100 WBC (Bld) 6.3 % High 0-5 [facility] Comment on above: Performed By: #### L 503.0106, L500.4050, L501.1400, L400.0001, L503.6030, L3000.0800, L100.9950, L3890.6006, L501.5101, L100.0100, L504.2610, L501.5200, L506.0200, L3410.9992, L101.9900, L3100.1350, L3200.1200, L503.6550, L3200.0500, L501.6710 #### [facility] [address] [place], [address] (553) Erythrocyte distribution width (RBC) [Ratio] 19.2 % High 11.6-14.6 [facility] Comment on above: Performed By: #### L 503.0106, L500.4050, L501.1400, L400.0001, L503.6030, L3000.0800, L100.9950, L3890.6006, L501.5101, L100.0100, L504.2610, L501.5200, L506.0200, L3410.9992, L101.9900, L3100.1350, L3200.1200, L503.6550, L3200.0500, L501.6710 #### [facility] [address] [place], [address] Hematocrit (Bld) [Volume fraction] 33.0 % Low 37-47 [facility] Comment on above: Performed By: #### L 503.0106, L500.4050, L501.1400, L400.0001, L503.6030, L3000.0800, L100.9950, L3890.6006, L501.5101, L100.0100, L504.2610, L501.5200, L506.0200, L3410.9992, L101.9900, L3100.1350, L3200.1200, L503.6550, L3200.0500, L501.6710 #### [facility] [address] [place], [place], [phone] (791) Hemoglobin (Bld) [Mass/Vol] 10.3 g/dL Low 12.0-15. 0 [facility] Comment on above: Performed By: #### L 503.0106, L500.4050, L501.1400, L400.0001, L503.6030, L3000.0800, L100.9950, L3890.6006, L501.5101, L100.0100, L504.2610, L501.5200, L506.0200, L3410.9992, L101.9900, L3100.1350, L3200.1200, L503.6550, L3200.0500, L501.6710 #### [facility] [address] [place], [place], [id number] IG% 1.100 High 0.0-0.9 [facility] Comment on above: Result Comment: IG% - Immature Granulocytes (promyelocytes, myelocytes and metamyelocytes) > 1% indicates that a LEFT SHIFT is Present. Performed By: #### L 503.0106, L500.4050, L501.1400, L400.0001, L503.6030, L3000.0800, L100.9950, L3890.6006, L501.5101, L100.0100, L504.2610, L501.5200, L506.0200, L3410.9992, L101.9900, L3100.1350, L3200.1200, L503.6550, L3200.0500, L501.6710 #### [facility] [address] [facility] [place], [place], [id number] (222) Lymphocytes/100 WBC (Bld) 23.9 % Normal 19-41 [facility] Comment on above: Performed By: #### L 503.0106, L500.4050, L501.1400, L400.0001, L503.6030, L3000.0800, L100.9950, L3890.6006, L501.5101, L100.0100, L504.2610, L501.5200, L506.0200, L3410.9992, L101.9900, L3100.1350, L3200.1200, L503.6550, L3200.0500, L501.6710 #### [facility] [address] [facility] [place], [place], [id number] MCH (RBC) [Entitic mass] 28.0 pg Normal 27.0-32.0 [facility] Comment on above: Performed By: #### L 503.0106, L500.4050, L501.1400, L400.0001, L503.6030, L3000.0800, L100.9950, L3890.6006, L501.5101, L100.0100, L504.2610, L501.5200, L506.0200, L3410.9992, L101.9900, L3100.1350, L3200.1200, L503.6550, L3200.0500, L501.6710 #### [facility] [address] [facility] [place], [place], [id number] MCHC (RBC) [Mass/Vol] 31.2 g/dL Low 32-36 [facility] Comment on above: Performed By: #### L 503.0106, L500.4050, L501.1400, L400.0001, L503.6030, L3000.0800, L100.9950, L3890.6006, L501.5101, L100.0100, L504.2610, L501.5200, L506.0200, L3410.9992, L101.9900, L3100.1350, L3200.1200, L503.6550, L3200.0500, L501.6710 #### [facility] [address] [place], [address] MCV (RBC) [Entitic vol] 89.7 fL Normal 81-99 [facility] Comment on above: Performed By: #### L 503.0106, L500.4050, L501.1400, L400.0001, L503.6030, L3000.0800, L100.9950, L3890.6006, L501.5101, L100.0100, L504.2610, L501.5200, L506.0200, L3410.9992, L101.9900, L3100.1350, L3200.1200, L503.6550, L3200.0500, L501.6710 #### [facility] [address] [place], [address] Monocytes/100 WBC (Bld) 6.9 % Normal 0-10 [facility] Comment on above: Performed By: #### L 503.0106, L500.4050, L501.1400, L400.0001, L503.6030, L3000.0800, L100.9950, L3890.6006, L501.5101, L100.0100, L504.2610, L501.5200, L506.0200, L3410.9992, L101.9900, L3100.1350, L3200.1200, L503.6550, L3200.0500, L501.6710 #### [facility] [address] [place], [address] Neutrophils/100 WBC (Bld) 61.4 % Normal 47-70 [facility] Comment on above: Performed By: #### L 503.0106, L500.4050, L501.1400, L400.0001, L503.6030, L3000.0800, L100.9950, L3890.6006, L501.5101, L100.0100, L504.2610, L501.5200, L506.0200, L3410.9992, L101.9900, L3100.1350, L3200.1200, L503.6550, L3200.0500, L501.6710 #### [facility] [address] [facility] [place], [place], [id number] (876) Nucleated RBC (Bld) [#/Vol] 0 10*3/uL Normal 0-5 [facility] Comment on above: Performed By: #### L 503.0106, L500.4050, L501.1400, L400.0001, L503.6030, L3000.0800, L100.9950, L3890.6006, L501.5101, L100.0100, L504.2610, L501.5200, L506.0200, L3410.9992, L101.9900, L3100.1350, L3200.1200, L503.6550, L3200.0500, L501.6710 #### [facility] [address] [facility] [place], [place], [id number] ([address] Platelet mean volume (Bld) [Entitic vol] 9.3 fL Normal 6.2-12.0 [facility] Comment on above: Performed By: #### L 503.0106, L500.4050, L501.1400, L400.0001, L503.6030, L3000.0800, L100.9950, L3890.6006, L501.5101, L100.0100, L504.2610, L501.5200, L506.0200, L3410.9992, L101.9900, L3100.1350, L3200.1200, L503.6550, L3200.0500, L501.6710 #### [facility] [address] [facility] [place], [address] Platelets (Bld) [#/Vol] 232 10*3/uL Normal 150-450 [facility] Comment on above: Performed By: #### L 503.0106, L500.4050, L501.1400, L400.0001, L503.6030, L3000.0800, L100.9950, L3890.6006, L501.5101, L100.0100, L504.2610, L501.5200, L506.0200, L3410.9992, L101.9900, L3100.1350, L3200.1200, L503.6550, L3200.0500, L501.6710 #### [facility] [address] [place], [place], [address] RBC (Bld) [#/Vol] 3.68 10*6/uL Low 4.2-5.4 [facility] Comment on above: Performed By: #### L 503.0106, L500.4050, L501.1400, L400.0001, L503.6030, L3000.0800, L100.9950, L3890.6006, L501.5101, L100.0100, L504.2610, L501.5200, L506.0200, L3410.9992, L101.9900, L3100.1350, L3200.1200, L503.6550, L3200.0500, L501.6710 #### [facility] [address] [facility] [place], [place], [id number] RDW SD 63.7 fl High 35.1-43.9 [facility] Comment on above: Performed By: #### L 503.0106, L500.4050, L501.1400, L400.0001, L503.6030, L3000.0800, L100.9950, L3890.6006, L501.5101, L100.0100, L504.2610, L501.5200, L506.0200, L3410.9992, L101.9900, L3100.1350, L3200.1200, L503.6550, L3200.0500, L501.6710 #### [facility] [address] [facility] [place], [address] WBC (Bld) [#/Vol] 4.6 10*3/uL Normal 4.4-11.0 [facility] Comment on above: Performed By: #### L 503.0106, L500.4050, L501.1400, L400.0001, L503.6030, L3000.0800, L100.9950, L3890.6006, L501.5101, L100.0100, L504.2610, L501.5200, L506.0200, L3410.9992, L101.9900, L3100.1350, L3200.1200, L503.6550, L3200.0500, L501.6710 #### [facility] [address] [place], [address] Eosinophil percentageOrdered By: [facility] on 05-07-2025 Eosinophils/100 WBC (Bld) 6.3 % High 0-5 [facility] Erythrocyte distribution wid th ratioOrdered By: [facility] on 05-07-2025 Erythrocyte distribution width (RBC) [Ratio] 19.2 % High 11.6-14.6 [facility] Erythrocyte distribution wid th standard deviationOrdered By: [facility] on 05-07-2025 Erythrocyte distribution width (RBC) [Ratio] 63.7 fl High 35.1-43.9 [facility] Ferritinon 05-07-2025 Ferritin [Mass/Vol] 90 ng/mL Normal 22-378 [facility] Comment on above: Performed By: #### L 503.0106, L500.4050, L501.1400, L400.0001, L503.6030, L3000.0800, L100.9950, L3890.6006, L501.5101, L100.0100, L504.2610, L501.5200, L506.0200, L3410.9992, L101.9900, L3100.1350, L3200.1200, L503.6550, L3200.0500, L501.6710 #### [facility] [address] [place], [address] Hematocrit Auto (Bld) [Volum e fraction]Ordered By: Glen Chapman on 05-07-2025 Hematocrit (Bld) [Volume fraction] 33.0 % Low 37-47 [facility] Hemoglobin measurementOrdere d By: Glen Statonrito on 05-07-2025 Hemoglobin (Bld) [Mass/Vol] 10.3 g/dL Low 12.0-15. 0 [facility] Immature granulocytes/100 WB C Auto (Bld)Ordered By: Glen Statonrito on 05-07-2025 Immature granulocytes/100 WBC (Bld) 1.100 % High 0.0-0.9 [facility] Comment on above: IG% - Immature Granu locytes (promyelocytes, myelocytes and metamyelocytes) > 1% indicates that a LEFT SHIFT is Present. Iron measurement (mass/mass) Ordered By: Glen Ari on 05-07-2025 Iron (Unsp spec) [Mass/Mass] 57 ug/dL 50-170 [facility] Iron+Iron Binding Capacityon 05-07-2025 Iron [Mass/Vol] 57 ug/dL Normal 50-170 [facility] Comment on above: Performed By: #### L 503.0106, L500.4050, L501.1400, L400.0001, L503.6030, L3000.0800, L100.9950, L3890.6006, L501.5101, L100.0100, L504.2610, L501.5200, L506.0200, L3410.9992, L101.9900, L3100.1350, L3200.1200, L503.6550, L3200.0500, L501.6710 #### [facility] [address] [place], [address] IRON SATURATION 14.0 Normal 13-59 [facility] Comment on above: Performed By: #### L 503.0106, L500.4050, L501.1400, L400.0001, L503.6030, L3000.0800, L100.9950, L3890.6006, L501.5101, L100.0100, L504.2610, L501.5200, L506.0200, L3410.9992, L101.9900, L3100.1350, L3200.1200, L503.6550, L3200.0500, L501.6710 #### [facility] [address] [place], [address] TIBC 392 ug/dL Normal 250-450 [facility] Comment on above: Performed By: #### L 503.0106, L500.4050, L501.1400, L400.0001, L503.6030, L3000.0800, L100.9950, L3890.6006, L501.5101, L100.0100, L504.2610, L501.5200, L506.0200, L3410.9992, L101.9900, L3100.1350, L3200.1200, L503.6550, L3200.0500, L501.6710 #### [facility] [address] [place], [address] UIBC 335 ug/dL Normal 228-428 [facility] Comment on above: Performed By: #### L 503.0106, L500.4050, L501.1400, L400.0001, L503.6030, L3000.0800, L100.9950, L3890.6006, L501.5101, L100.0100, L504.2610, L501.5200, L506.0200, L3410.9992, L101.9900, L3100.1350, L3200.1200, L503.6550, L3200.0500, L501.6710 #### [facility] [address] [facility] [place], [address] LDHon 05-07-2025 LDH 132 U/L Normal 84-246 [facility] Comment on above: Order Comment: 1 Performed By: #### L 503.0106, L500.4050, L501.1400, L400.0001, L503.6030, L3000.0800, L100.9950, L3890.6006, L501.5101, L100.0100, L504.2610, L501.5200, L506.0200, L3410.9992, L101.9900, L3100.1350, L3200.1200, L503.6550, L3200.0500, L501.6710 #### [facility] [address] [facility] [place], [address] Lactate dehydrogenase (LDH) measurementOrdered By: Glen Chapman on 05-07-2025 LDH [Catalytic activity/Vol] 132 U/L 84-246 [facility] MCV (mean corpuscular volume ) determinationOrdered By: Glen Chapman on 05-07-2025 MCV (RBC) [Entitic vol] 89.7 fL 81-99 [facility] Magnesiumon 05-07-2025 Magnesium [Mass/Vol] 1.3 mg/dL Low 1.5-2.2 [facility] Comment on above: Performed By: #### L 503.0106, L500.4050, L501.1400, L400.0001, L503.6030, L3000.0800, L100.9950, L3890.6006, L501.5101, L100.0100, L504.2610, L501.5200, L506.0200, L3410.9992, L101.9900, L3100.1350, L3200.1200, L503.6550, L3200.0500, L501.6710 #### [facility] [address] [facility] [place], [address] Magnesium measurement (mass/ volume)Ordered By: Glen Chapman on 05-07-2025 Magnesium (Unsp spec) [Mass/Vol] 1.3 mg/dL Low 1.5-2.2 [facility] Mean corpuscular hemoglobin (MCH) determinationOrdered By: Glen Chapman on 05-07-2025 MCH (RBC) [Entitic mass] 28.0 pg 27.0-32.0 [facility] Mean corpuscular hemoglobin concentration (MCHC) determinationOrdered By: Glen Chapman on 05-07-2025 MCHC (RBC) [Mass/Vol] 31.2 g/dL Low 32-36 [facility] Mean platelet volume determi nationOrdered By: Glen Chapman on 05-07-2025 Platelet mean volume (Bld) [Entitic vol] 9.3 fL 6.2-12.0 [facility] Monocyte percentageOrdered B y: Glen Chapman on 05-07-2025 Monocytes/100 WBC (Bld) 6.9 % 0-10 [facility] Neutrophil percentageOrdered By: Glen Chapman on 05-07-2025 Neutrophils/100 WBC (Bld) 61.4 % 47-70 [facility] No Panel InformationOrdered By: Glen Chapman on 05-07-2025 Unsaturated Iron Binding Capacity 335 ug/dL 228-428 [facility] Nucleated red blood cell per centageOrdered By: Glen Chapman on 05-07-2025 Nucleated RBC/100 WBC (Bld) [Ratio] 0 % 0-5 [facility] Oncology Visit Reporton 04-16 Oncology Visit Report [facility] [address] [place] [address] OFFICE VISIT Date of Service: 05/07/25825 MR#: [id number] Acct: [id number] Name: HEIDI ANDREWS Rep #: [id number] : 1970 From: Glen Chapman MD Age/Sex: 55/F Location: [facility] [place] Status: Signed HPI Subjective Date of [...] 03/29/2025. Comes for follow up. Feels better. [facility] Medical History Sleep apnea Wears glasses Thyroid disease Diabetes Anemia Former smoker Diabetes Anxiety Psoriasis Hypothyroid Vitamin D deficiency Hypertriglyceridemia Bipolar disorder, unspecified HTN (hypertension) Surgical History Hx of section Hx of bilateral breast reduction surgery Family History Father Hypertension Diabetes Sister Anxiety MCTD (mixed connective tissue disease) Mother Psoriatic arthritis Social History household members: spouse current occupational status: employed current occupation: [employer] Smoking Status: Former smoker alcohol intake: never substance use type: does not use Intake Vital Signs 03/29/25 08:03 05/07/25 08:27 Height 5 ft 6 in 5 ft 6 in Weight: 122.47 kg BMI 43.5 BP 132/82 H Blood Pressure Location Lt brachial Position Sitting Respiration 18 Pulse 75 Pulse Source Monitor Temp 98.0 F Temperature Source Temporal Artery Pulse Oximetry (%) 96 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 Normal [facility] Phosphoruson 05-07-2025 Phosphate [Mass/Vol] 2.6 mg/dL Low 2.7-4.5 [facility] Comment on above: Performed By: #### L 503.0106, L500.4050, L501.1400, L400.0001, L503.6030, L3000.0800, L100.9950, L3890.6006, L501.5101, L100.0100, L504.2610, L501.5200, L506.0200, L3410.9992, L101.9900, L3100.1350, L3200.1200, L503.6550, L3200.0500, L501.6710 #### [facility] [address] [place], [place], [address] Platelet countOrdered By: Jaimee Chapman on 05-07-2025 Platelets (Bld) [#/Vol] 232 10*3/uL 150-450 [facility] RBC Auto (Bld) [#/Vol]Ordere d By: Glen Chapman on 05-07-2025 RBC (Bld) [#/Vol] 3.68 10*6/uL Low 4.2-5.4 [facility] Serum or plasma ferritin darrel surement (mass/volume)Ordered By: Glen Chapman on 05-07-2025 Ferritin [Mass/Vol] 90 ng/mL 22-378 [facility] Serum or plasma iron saturat ion measurement (mass fraction)Ordered By: Glen Chapman on 05-07-2025 Iron saturation [Mass fraction] 14.0 % 13-59 [facility] Vitamin B12on 05-07-2025 Cobalamin (Vitamin B12) [Mass/Vol] 152 pg/mL Low 180-914 [facility] Comment on above: Performed By: #### L 503.0106, L500.4050, L501.1400, L400.0001, L503.6030, L3000.0800, L100.9950, L3890.6006, L501.5101, L100.0100, L504.2610, L501.5200, L506.0200, L3410.9992, L101.9900, L3100.1350, L3200.1200, L503.6550, L3200.0500, L501.6710 #### [facility] [address] [place], [address] Vitamin B12 ser/plasOrdered By: Glen Chapman on 05-07-2025 Cobalamin (Vitamin B12) [Mass/Vol] 152 pg/mL Low 180-914 [facility] White blood cell (WBC) count Ordered By: Glen Chapman on 05-07-2025 WBC (Bld) [#/Vol] 4.6 10*3/uL 4.4-11.0 [facility] Cardiovascular stress test r eportOrdered By: John Damian on 04-17-2025 Study report [facility] [address] [place] [address] MR#: [id number] Acct: [id number] Name: HEIDI ANDREWS Rep #: [id number] : 1970 55 From: John Damian MD [...] of 66%. This note was generated with UtiliDataation software. It may contain incorrectwords, spelling, and punctuation that were not noted in checking the note beforesigning. 04/17/25928 Date _ John Damian MD CC: Dr. Red Perez MD ~ Date Dictated: 04/17/25925 Date Transcribed: 04/17/25925 [employer]: MARY Smith [facility] Work Phone: Stress Reporton 04-17-2025 Stress Report [facility] Cardiovascular Services [address] [place] [address] MR#: [id number] Acct: [id number] Name: HEIDI ANDREWS Rep #: [id number] : 1970 55 From: John Damian MD Primary Care: Dr. Red Perez MD Status: REG CLI Referring Dr: Red Perez MD [...] of 66%. This note was generated with UtiliData[employer] software. It may contain incorrect words, spelling, and punctuation that were not noted in checking the note before signing. 04/17/25928 Date John Damian MD CC: Dr. Red Perez MD Date Dictated: 04/17/25925 Date Transcribed: 04/17/25925 [employer] Coach: MARY Signed Normal [facility] Absolute lymphocyte countOrd ered By: Red Perez on 03-29-2025 Lymphocytes Auto (Unsp spec) [#/Vol] 0.95 10*3/uL 0.83-4.51 [facility] Absolute neutrophil countOrd ered By: Red Perez on 03-29-2025 Neutrophils (Bld) [#/Vol] 4.6 10*3/uL 2.0-7.7 [facility] Automated lymphocyte count a s percentage of total leukocytesOrdered By: Red Perez on 03-29-2025 Lymphocytes/100 WBC Auto (Unsp spec) 15.0 % Low 19-41 [facility] Basophil percentageOrdered B y: Red Perez on 03-29-2025 Basophils/100 WBC (Bld) 0.3 % 0-1 [facility] Blood polychromasia detectio n by light microscopyOrdered By: Red Perez on 03-29-2025 Polychromasia LM Ql (Bld) 1+ [facility] CBC W/Diff, Automatedon 03-15 Anisocytosis Ql (Bld) 2+ Normal [facility] Comment on above: Performed By: #### L 503.0106, L500.4050, L501.1400, L400.0001, L503.6030, L3000.0800, L100.9950, L3890.6006, L501.5101, L100.0100, L504.2610, L501.5200, L506.0200, L3410.9992, L101.9900, L3100.1350, L3200.1200, L503.6550, L3200.0500, L501.6710 #### [facility] [facility] [place], [address] POLYCHROMASIA 1+ Normal [facility] Comment on above: Performed By: #### L 503.0106, L500.4050, L501.1400, L400.0001, L503.6030, L3000.0800, L100.9950, L3890.6006, L501.5101, L100.0100, L504.2610, L501.5200, L506.0200, L3410.9992, L101.9900, L3100.1350, L3200.1200, L503.6550, L3200.0500, L501.6710 #### [facility] [address] [place], [place], [id number] Eosinophil percentageOrdered By: Red Perez on 03-29-2025 Eosinophils/100 WBC (Bld) 3.9 % 0-5 [facility] Erythrocyte distribution wid th ratioOrdered By: Red Perez on 03-29-2025 Erythrocyte distribution width (RBC) [Ratio] 27.1 % High 11.6-14.6 [facility] Erythrocyte distribution wid th standard deviationOrdered By: Red Perez on 03-29-2025 Erythrocyte distribution width (RBC) [Ratio] 81.7 fl High 35.1-43.9 [facility] Hematocrit Auto (Bld) [Volum e fraction]Ordered By: Red Perez on 03-29-2025 Hematocrit (Bld) [Volume fraction] 31.9 % Low 37-47 [facility] Hemoglobin measurementOrdere d By: Red Perez on 03-29-2025 Hemoglobin (Bld) [Mass/Vol] 9.2 g/dL Low 12.0-15. 0 [facility] Immature granulocytes/100 WB C Auto (Bld)Ordered By: Red Perez on 03-29-2025 Immature granulocytes/100 WBC (Bld) 1.100 % High 0.0-0.9 [facility] Comment on above: IG% - Immature Granu locytes (promyelocytes, myelocytes and metamyelocytes) > 1% indicates that a LEFT SHIFT is Present. Laboratory - Hematology and Cell countsOrdered By: Red Perez on 03-29-2025 Anisocytosis Ql (Bld) 2+ [facility] MCV (mean corpuscular volume ) determinationOrdered By: Red Perez on 03-29-2025 MCV (RBC) [Entitic vol] 84.2 fL 81-99 [facility] Mean corpuscular hemoglobin (MCH) determinationOrdered By: Red Perez on 03-29-2025 MCH (RBC) [Entitic mass] 24.3 pg Low 27.0-32.0 [facility] Mean corpuscular hemoglobin concentration (MCHC) determinationOrdered By: Red Perez on 03-29-2025 MCHC (RBC) [Mass/Vol] 28.8 g/dL Low 32-36 [facility] Mean platelet volume determi nationOrdered By: Red Perez on 03-29-2025 Platelet mean volume (Bld) [Entitic vol] 9.6 fL 6.2-12.0 [facility] Monocyte percentageOrdered B y: Red Perez on 03-29-2025 Monocytes/100 WBC (Bld) 7.1 % 0-10 [facility] Neutrophil percentageOrdered By: Red Perez on 03-29-2025 Neutrophils/100 WBC (Bld) 72.6 % High 47-70 [facility] Nucleated red blood cell per centageOrdered By: Red Perez on 03-29-2025 Nucleated RBC/100 WBC (Bld) [Ratio] 0 % 0-5 [facility] Platelet countOrdered By: Yousuf Perez on 03-29-2025 Platelets (Bld) [#/Vol] 263 10*3/uL 150-450 [facility] RBC Auto (Bld) [#/Vol]Ordere d By: Red Perez on 03-29-2025 RBC (Bld) [#/Vol] 3.79 10*6/uL Low 4.2-5.4 [facility] White blood cell (WBC) count Ordered By: Red Perez on 03-29-2025 WBC (Bld) [#/Vol] 6.3 10*3/uL 4.4-11.0 [facility] Celiac AB,Comprehensiveon ANTIGLIADIN IGA 2 units Normal 0-19 [facility] Comment on above: Result Comment: Nega tive 0 - 19 Weak Positive 20 - 30 Moderate to Strong Positive >30 Performed By: #### L 503.0106, L500.4050, L501.1400, L400.0001, L503.6030, L3000.0800, L100.9950, L3890.6006, L501.5101, L100.0100, L504.2610, L501.5200, L506.0200, L3410.9992, L101.9900, L3100.1350, L3200.1200, L503.6550, L3200.0500, L501.6710 #### [facility] [address] [place], [address] ANTIGLIADIN IGG 2 units Normal 0-19 [facility] Comment on above: Result Comment: Nega tive 0 - 19 Weak Positive 20 - 30 Moderate to Strong Positive >30 Performed By: #### L 503.0106, L500.4050, L501.1400, L400.0001, L503.6030, L3000.0800, L100.9950, L3890.6006, L501.5101, L100.0100, L504.2610, L501.5200, L506.0200, L3410.9992, L101.9900, L3100.1350, L3200.1200, L503.6550, L3200.0500, L501.6710 #### [facility] [address] [place], [address] ENDOMYSIAL IGA Negative Normal Negative [facility] Comment on above: Performed By: #### L 503.0106, L500.4050, L501.1400, L400.0001, L503.6030, L3000.0800, L100.9950, L3890.6006, L501.5101, L100.0100, L504.2610, L501.5200, L506.0200, L3410.9992, L101.9900, L3100.1350, L3200.1200, L503.6550, L3200.0500, L501.6710 #### [facility] [address] [place], [address] IMMUNOGLOB A QN 57 mg/dL Low 87-352 [facility] Comment on above: Result Comment: Perf ormed at: [facility] [id number] [employer]: Preston Ashley PhD, Phone: [phone] Performed By: #### L 503.0106, L500.4050, L501.1400, L400.0001, L503.6030, L3000.0800, L100.9950, L3890.6006, L501.5101, L100.0100, L504.2610, L501.5200, L506.0200, L3410.9992, L101.9900, L3100.1350, L3200.1200, L503.6550, L3200.0500, L501.6710 #### [facility] [address] [place], [place], [id number] tTG IGA <2 Normal 0-3 [facility] Comment on above: Result Comment: Nega [...] L101.9900, L3100.1350, L3200.1200, L503.6550, L3200.0500, L501.6710 #### [facility] [address] [facility] [place], [address] tTG IGG 3 U/mL Normal 0-5 [facility] Comment on above: Result Comment: Nega tive 0 - 5 Weak Positive 6 - 9 Positive >9 Performed By: #### L 503.0106, L500.4050, L501.1400, L400.0001, L503.6030, L3000.0800, L100.9950, L3890.6006, L501.5101, L100.0100, L504.2610, L501.5200, L506.0200, L3410.9992, L101.9900, L3100.1350, L3200.1200, L503.6550, L3200.0500, L501.6710 #### [facility] [address] [place], [place], [id number] Folates, (Folic Acid)on 02-14 FOLATES 5.36 ng/mL Normal 4.60-34.80 [facility] Comment on above: Order Comment: ADD O N FROM EARLIER TODAY, THANKSFOLATES AND B12N Performed By: #### L 503.0106, L500.4050, L501.1400, L400.0001, L503.6030, L3000.0800, L100.9950, L3890.6006, L501.5101, L100.0100, L504.2610, L501.5200, L506.0200, L3410.9992, L101.9900, L3100.1350, L3200.1200, L503.6550, L3200.0500, L501.6710 #### [facility] [address] [place], [place], [id number] No Panel InformationOrdered By: Glen Chapman on 03-08-2025 Tissue Transglutaminase IgG Ab 3 U/mL 0-5 [facility] Comment on above: Negative 0 - 5 Weak Positive 6 - 9 Positive >9 3 U/mL 0-5 [facility] Oncology Visit Reporton 02-14 Oncology Visit Report [facility] [address] [place] [address] OFFICE VISIT Date of Service: 03/08/25 0820 MR#: [id number] Acct: [id number] Name: HEIDI ANDREWS Rep #: [id number] : 1970 From: Glen Chapman MD Age/Sex: 55/F Location: [facility] Status: Signed HPI Subjective Date of Service 03/08/25 Chief Complaint Referred for Iron deficiency anemia. History of Present Illness 55 y.o.woman presented to PCP with SOB, fatigue, palpitations, she was found to Microcytic anemia with negative stool for occult blood on 03/05/2025. She is referred for management. Feels tired. Colonoscopy in Nov 2022 was negative. [facility] Medical History (Updated 03/08/25 @ 09:09 [...] spouse current occupational status: employed current occupation: [employer] Smoking Status: Former smoker alcohol intake: never [...] no lymphadenopathy (more content not included)... Normal [facility] Serum tissue transglutaminas e (tTG) IgA antibody assay (units/volume)Ordered By: Glen Chapman on 03-08-2025 tTG IgA Qn (S) <2 U/mL 0-3 [facility] Comment on above: Negative 0 - 3 Weak Positive 4 - 10 Positive >10 Tissue Transglutaminase (tTG) has been identified as the endomysial antigen. Studies have demonstr- ated that endomysial IgA antibodies have over 99% specificity for gluten sensitive enteropathy. Vitamin B12on 03-08-2025 Cobalamin (Vitamin B12) [Mass/Vol] 184 pg/mL Normal 180-914 [facility] Comment on above: Order Comment: ADD O N FROM EARLIER TODAY, THANKSFOLATES AND B12 Performed By: #### L 503.0106, L500.4050, L501.1400, L400.0001, L503.6030, L3000.0800, L100.9950, L3890.6006, L501.5101, L100.0100, L504.2610, L501.5200, L506.0200, L3410.9992, L101.9900, L3100.1350, L3200.1200, L503.6550, L3200.0500, L501.6710 #### [facility] [address] [place], [place], [id number] Vitamin B12 ser/plasOrdered By: Glen Chapman on 03-08-2025 Cobalamin (Vitamin B12) [Mass/Vol] 184 pg/mL 180-914 [facility] Ferritinon 03-05-2025 Ferritin [Mass/Vol] 13 ng/mL Low 22-378 [facility] Comment on above: Order Comment: Order Date: 03/02/25Order Info: [id number] - FEOrder Info: [id number] - FERComments: Low iron Performed By: #### L 503.0106, L500.4050, L501.1400, L400.0001, L503.6030, L3000.0800, L100.9950, L3890.6006, L501.5101, L100.0100, L504.2610, L501.5200, L506.0200, L3410.9992, L101.9900, L3100.1350, L3200.1200, L503.6550, L3200.0500, L501.6710 #### [facility] [address] [place], [place], [id number] (736) Ironon 03-05-2025 Iron [Mass/Vol] 33 ug/dL Low 50-170 [facility] Comment on above: Order Comment: Order Date: 03/02/25Order Info: [id number] - FEOrder Info: [id number] - FERComments: Low ironLow Iron Performed By: #### L 503.0106, L500.4050, L501.1400, L400.0001, L503.6030, L3000.0800, L100.9950, L3890.6006, L501.5101, L100.0100, L504.2610, L501.5200, L506.0200, L3410.9992, L101.9900, L3100.1350, L3200.1200, L503.6550, L3200.0500, L501.6710 #### [facility] [address] [facility] [place], [place], [id number] Iron (Unsp spec) [Mass/Mass] Ordered By: Red Perez on 03-05-2025 Iron [Mass/Vol] 33 ug/dL Low 50-170 [facility] Iron measurement (mass/mass) Ordered By: Red Perez on 03-05-2025 Iron (Unsp spec) [Mass/Mass] 33 ug/dL Low 50-170 [facility] Serum or plasma ferritin darrel surement (mass/volume)Ordered By: Red Perez on 03-05-2025 Ferritin [Mass/Vol] 13 ng/mL Low 22-378 [facility] PROLACTIN 4465on 03-03-2025 PROLACTIN 62.0 ng/mL High 3.6-25.2 [facility] Comment on above: Result Comment: Perf ormed at: [facility] [id number] [employer]: Preston Ashley PhD, Phone: [phone] Performed By: #### L 503.0106, L500.4050, L501.1400, L400.0001, L503.6030, L3000.0800, L100.9950, L3890.6006, L501.5101, L100.0100, L504.2610, L501.5200, L506.0200, L3410.9992, L101.9900, L3100.1350, L3200.1200, L503.6550, L3200.0500, L501.6710 #### [facility] [address] [place], [address] Absolute lymphocyte countOrd ered By: Red Perez on 03-01-2025 Lymphocytes Auto (Unsp spec) [#/Vol] 0.63 10*3/uL Low 0.83-4.51 [facility] Absolute neutrophil countOrd ered By: Red Perez on 03-01-2025 Neutrophils (Bld) [#/Vol] 3.7 10*3/uL 2.0-7.7 [facility] Anion gap in Serum or Plasma Ordered By: Red Perez on 03-01-2025 Anion gap [Moles/Vol] 14 mmol/L 5-15 [facility] Automated lymphocyte count a s percentage of total leukocytesOrdered By: Red Perez on 03-01-2025 Lymphocytes/100 WBC Auto (Unsp spec) 12.6 % Low 19-41 [facility] BUN/creatinine ratioOrdered By: Red Perez on 03-01-2025 Urea nitrogen/Creatinine [Mass ratio] 11.5 mg/mg 10-20 [facility] Basophil percentageOrdered B y: Red Perez on 03-01-2025 Basophils/100 WBC (Bld) 0.4 % 0-1 W [facility] Bilirubin, totalOrdered By: Red Perez on 03-01-2025 Bilirubin [Mass/Vol] 0.57 mg/dL 0.00-1.30 [facility] CBC W/Diff, Automatedon 02-13 Anisocytosis Ql (Bld) 2+ Normal [facility] Comment on above: Performed By: #### L 503.0106, L500.4050, L501.1400, L400.0001, L503.6030, L3000.0800, L100.9950, L3890.6006, L501.5101, L100.0100, L504.2610, L501.5200, L506.0200, L3410.9992, L101.9900, L3100.1350, L3200.1200, L503.6550, L3200.0500, L501.6710 #### [facility] [address] [place], [place], [id number] HYPOCHROMASIA 1+ Normal [facility] Comment on above: Performed By: #### L 503.0106, L500.4050, L501.1400, L400.0001, L503.6030, L3000.0800, L100.9950, L3890.6006, L501.5101, L100.0100, L504.2610, L501.5200, L506.0200, L3410.9992, L101.9900, L3100.1350, L3200.1200, L503.6550, L3200.0500, L501.6710 #### [facility] [address] [facility] [place], [address] PLT EST ADEQUATE Normal ADEQ [facility] Comment on above: Performed By: #### L 503.0106, L500.4050, L501.1400, L400.0001, L503.6030, L3000.0800, L100.9950, L3890.6006, L501.5101, L100.0100, L504.2610, L501.5200, L506.0200, L3410.9992, L101.9900, L3100.1350, L3200.1200, L503.6550, L3200.0500, L501.6710 #### [facility] [address] [facility] [place], [address] Calculated very low density lipoprotein (VLDL) cholesterol measurementOrdered By: Red Perez on 03-01-2025 Calculated very low density lipoprotein (VLDL) cholesterol measurement 27 mg/dL [facility] VLDL Cholesterol 27 mg/dL [facility] Carbon dioxide, total [Moles /volume] in Central venous bloodOrdered By: Red Perez on 03-01-2025 CO2 [Moles/Vol] 25.1 mmol/L 21.0-32.0 [facility] Chloride assayOrdered By: Yousuf Perez on 03-01-2025 Chloride [Moles/Vol] 99 mmol/L 98-108 [facility] Comprehensive Metabolic Prof ilon 03-01-2025 Albumin [Mass/Vol] 4.2 g/dL Normal 3.5-5.0 [facility] Comment on above: Order Comment: MADHAVI CTOR TO SPECIFY Performed By: #### L 503.0106, L500.4050, L501.1400, L400.0001, L503.6030, L3000.0800, L100.9950, L3890.6006, L501.5101, L100.0100, L504.2610, L501.5200, L506.0200, L3410.9992, L101.9900, L3100.1350, L3200.1200, L503.6550, L3200.0500, L501.6710 #### [facility] [address] [facility] [place], [place], [id number] Albumin/Globulin [Mass ratio] 1.6 {ratio} Normal 0.9-2.4 [facility] Comment on above: Order Comment: MADHAVI CTOR TO SPECIFY Performed By: #### L 503.0106, L500.4050, L501.1400, L400.0001, L503.6030, L3000.0800, L100.9950, L3890.6006, L501.5101, L100.0100, L504.2610, L501.5200, L506.0200, L3410.9992, L101.9900, L3100.1350, L3200.1200, L503.6550, L3200.0500, L501.6710 #### [facility] [address], [place], [id number] ALK PHOS 190 U/L High 35-104 [facility] Comment on above: Order Comment: MADHAVI CTOR TO SPECIFY Performed By: #### L 503.0106, L500.4050, L501.1400, L400.0001, L503.6030, L3000.0800, L100.9950, L3890.6006, L501.5101, L100.0100, L504.2610, L501.5200, L506.0200, L3410.9992, L101.9900, L3100.1350, L3200.1200, L503.6550, L3200.0500, L501.6710 #### [facility] [address], [place], [id number] ALT [Catalytic activity/Vol] 67 U/L High <=34 [facility] Comment on above: Order Comment: MADHAVI CTOR TO SPECIFY Performed By: #### L 503.0106, L500.4050, L501.1400, L400.0001, L503.6030, L3000.0800, L100.9950, L3890.6006, L501.5101, L100.0100, L504.2610, L501.5200, L506.0200, L3410.9992, L101.9900, L3100.1350, L3200.1200, L503.6550, L3200.0500, L501.6710 #### [facility] [address], [place], [id number] AST [Catalytic activity/Vol] 86 U/L High <=31 [facility] Comment on above: Order Comment: MADHAVI CTOR TO SPECIFY Performed By: #### L 503.0106, L500.4050, L501.1400, L400.0001, L503.6030, L3000.0800, L100.9950, L3890.6006, L501.5101, L100.0100, L504.2610, L501.5200, L506.0200, L3410.9992, L101.9900, L3100.1350, L3200.1200, L503.6550, L3200.0500, L501.6710 #### [facility] [address] [place], [place], [phone] Bilirubin [Mass/Vol] 0.57 mg/dL Normal 0.00-1.30 [facility] Comment on above: Order Comment: COLLE CTOR TO SPECIFY Performed By: #### L 503.0106, L500.4050, L501.1400, L400.0001, L503.6030, L3000.0800, L100.9950, L3890.6006, L501.5101, L100.0100, L504.2610, L501.5200, L506.0200, L3410.9992, L101.9900, L3100.1350, L3200.1200, L503.6550, L3200.0500, L501.6710 #### [facility] [address] [place], [address] (281) BUN/CRE 11.5 RATIO Normal 10-20 [facility] Comment on above: Order Comment: MADHAVI CTOR TO SPECIFY Performed By: #### L 503.0106, L500.4050, L501.1400, L400.0001, L503.6030, L3000.0800, L100.9950, L3890.6006, L501.5101, L100.0100, L504.2610, L501.5200, L506.0200, L3410.9992, L101.9900, L3100.1350, L3200.1200, L503.6550, L3200.0500, L501.6710 #### [facility] [address] [place], [place], [phone] Calcium [Mass/Vol] 8.9 mg/dL Normal 7.6-11.0 [facility] Comment on above: Order Comment: MADHAVI CTOR TO SPECIFY Performed By: #### L 503.0106, L500.4050, L501.1400, L400.0001, L503.6030, L3000.0800, L100.9950, L3890.6006, L501.5101, L100.0100, L504.2610, L501.5200, L506.0200, L3410.9992, L101.9900, L3100.1350, L3200.1200, L503.6550, L3200.0500, L501.6710 #### [facility] [address] [place], [place], [phone] (453) Chloride [Moles/Vol] 99 mmol/L Normal 98-108 [facility] Comment on above: Order Comment: COLLE CTOR TO SPECIFY Performed By: #### L 503.0106, L500.4050, L501.1400, L400.0001, L503.6030, L3000.0800, L100.9950, L3890.6006, L501.5101, L100.0100, L504.2610, L501.5200, L506.0200, L3410.9992, L101.9900, L3100.1350, L3200.1200, L503.6550, L3200.0500, L501.6710 #### [facility] [address] [place], [place], [phone] (238) CO2 [Moles/Vol] 25.1 mmol/L Normal 21.0-32.0 [facility] Comment on above: Order Comment: COLLE CTOR TO SPECIFY Performed By: #### L 503.0106, L500.4050, L501.1400, L400.0001, L503.6030, L3000.0800, L100.9950, L3890.6006, L501.5101, L100.0100, L504.2610, L501.5200, L506.0200, L3410.9992, L101.9900, L3100.1350, L3200.1200, L503.6550, L3200.0500, L501.6710 #### [facility] [address] [place], [place], [id number] Creatinine [Mass/Vol] 1.04 mg/dL Normal 0.70-1.20 [facility] Comment on above: Order Comment: MADHAVI CTOR TO SPECIFY Performed By: #### L 503.0106, L500.4050, L501.1400, L400.0001, L503.6030, L3000.0800, L100.9950, L3890.6006, L501.5101, L100.0100, L504.2610, L501.5200, L506.0200, L3410.9992, L101.9900, L3100.1350, L3200.1200, L503.6550, L3200.0500, L501.6710 #### [facility] [address] [place], [address] GAP 14 Normal 5-15 [facility] Comment on above: Order Comment: MADHAVI CTOR TO SPECIFY Performed By: #### L 503.0106, L500.4050, L501.1400, L400.0001, L503.6030, L3000.0800, L100.9950, L3890.6006, L501.5101, L100.0100, L504.2610, L501.5200, L506.0200, L3410.9992, L101.9900, L3100.1350, L3200.1200, L503.6550, L3200.0500, L501.6710 #### [facility] [address] [place], [place], [id number] GFR/1.73 sq M.predicted among non-blacks MDRD (S/P/Bld) [Vol rate/Area] 64 mL/min/{1.73_m2} Normal >60 [facility] Comment on above: Order Comment: MADHAVI CTOR TO SPECIFY Result Comment: mL/m in/1.73m2 CKD-EPI Creatinine Equation (2020) Performed By: #### L 503.0106, L500.4050, L501.1400, L400.0001, L503.6030, L3000.0800, L100.9950, L3890.6006, L501.5101, L100.0100, L504.2610, L501.5200, L506.0200, L3410.9992, L101.9900, L3100.1350, L3200.1200, L503.6550, L3200.0500, L501.6710 #### [facility] [address] [place], [place], [phone] Globulin (S) [Mass/Vol] 2.6 g/dL Normal 2.2-4.2 [facility] Comment on above: Order Comment: COLLE CTOR TO SPECIFY Performed By: #### L 503.0106, L500.4050, L501.1400, L400.0001, L503.6030, L3000.0800, L100.9950, L3890.6006, L501.5101, L100.0100, L504.2610, L501.5200, L506.0200, L3410.9992, L101.9900, L3100.1350, L3200.1200, L503.6550, L3200.0500, L501.6710 #### [facility] [address] [place], [place], [phone] Glucose [Mass/Vol] 158 mg/dL High 70-99 [facility] Comment on above: Order Comment: COLLE CTOR TO SPECIFY Performed By: #### L 503.0106, L500.4050, L501.1400, L400.0001, L503.6030, L3000.0800, L100.9950, L3890.6006, L501.5101, L100.0100, L504.2610, L501.5200, L506.0200, L3410.9992, L101.9900, L3100.1350, L3200.1200, L503.6550, L3200.0500, L501.6710 #### [facility] [address] [facility], [place], [phone] Potassium [Moles/Vol] 4.2 mmol/L Normal 3.3-5.1 [facility] Comment on above: Order Comment: COLLE CTOR TO SPECIFY Performed By: #### L 503.0106, L500.4050, L501.1400, L400.0001, L503.6030, L3000.0800, L100.9950, L3890.6006, L501.5101, L100.0100, L504.2610, L501.5200, L506.0200, L3410.9992, L101.9900, L3100.1350, L3200.1200, L503.6550, L3200.0500, L501.6710 #### [facility] [address] [place], [address] Sodium [Moles/Vol] 138 mmol/L Normal 133-145 [facility] Comment on above: Order Comment: COLLE CTOR TO SPECIFY Performed By: #### L 503.0106, L500.4050, L501.1400, L400.0001, L503.6030, L3000.0800, L100.9950, L3890.6006, L501.5101, L100.0100, L504.2610, L501.5200, L506.0200, L3410.9992, L101.9900, L3100.1350, L3200.1200, L503.6550, L3200.0500, L501.6710 #### [facility] [address], [place], [phone] (431) T PROT 6.8 g/dL Normal 5.9-8.4 [facility] Comment on above: Order Comment: COLLE CTOR TO SPECIFY Performed By: #### L 503.0106, L500.4050, L501.1400, L400.0001, L503.6030, L3000.0800, L100.9950, L3890.6006, L501.5101, L100.0100, L504.2610, L501.5200, L506.0200, L3410.9992, L101.9900, L3100.1350, L3200.1200, L503.6550, L3200.0500, L501.6710 #### [facility] [address] [place], [place], [address] Urea nitrogen [Mass/Vol] 12 mg/dL Normal 4-19 [facility] Comment on above: Order Comment: COLLE CTOR TO SPECIFY Performed By: #### L 503.0106, L500.4050, L501.1400, L400.0001, L503.6030, L3000.0800, L100.9950, L3890.6006, L501.5101, L100.0100, L504.2610, L501.5200, L506.0200, L3410.9992, L101.9900, L3100.1350, L3200.1200, L503.6550, L3200.0500, L501.6710 #### [facility] [address] [place], [place], [id number] Eosinophil percentageOrdered By: Red Perez on 03-01-2025 Eosinophils/100 WBC (Bld) 4.0 % 0-5 [facility] Erythrocyte distribution wid th (RBC) [Ratio]Ordered By: Red Perez on 03-01-2025 Erythrocyte distribution width (RBC) [Entitic vol] 55.5 fL High 35.1-43.9 [facility] Erythrocyte distribution wid th ratioOrdered By: Red Perez on 03-01-2025 Erythrocyte distribution width (RBC) [Ratio] 20.9 % High 11.6-14.6 [facility] Erythrocyte distribution wid th standard deviationOrdered By: Red Perez on 03-01-2025 Erythrocyte distribution width (RBC) [Ratio] 55.5 fl High 35.1-43.9 [facility] GFR/1.73 sq M.predicted sonny g non-blacks MDRD (S/P/Bld) [Vol rate/Area]Ordered By: Red Perez on 03-01-2025 Estimated GFR (MDRD) Non-Af Amer 64 >60 [facility] Comment on above: mL/min/1.73m2 CKD-EP I Creatinine Equation (2020) Glomerular filtration rate ( GFR) estimation/1.73 sq m using serum, plasma, or whole bOrdered By: Red Perez on 03-01-2025 GFR/1.73 sq M.predicted among non-blacks MDRD (S/P/Bld) [Vol rate/Area] 64 mL/min/{1.73_m2} >60 [facility] Comment on above: mL/min/1.73m2 CKD-EP I Creatinine Equation (2020) Hematocrit Auto (Bld) [Volum e fraction]Ordered By: Red Perez on 03-01-2025 Hematocrit (Bld) [Volume fraction] 26.7 % Low 37-47 [facility] Hemoglobin A1con 03-01-2025 HbA1c (Bld) [Mass fraction] 7.6 % High <=5.6 [facility] Comment on above: Result Comment: Norm al < 5.7 % Prediabetic 5.7 - 6.4 % Diabetic >or= 6.5 % Please note range changes. Performed By: #### L 503.0106, L500.4050, L501.1400, L400.0001, L503.6030, L3000.0800, L100.9950, L3890.6006, L501.5101, L100.0100, L504.2610, L501.5200, L506.0200, L3410.9992, L101.9900, L3100.1350, L3200.1200, L503.6550, L3200.0500, L501.6710 #### [facility] [address] [place], [place], [id number] Hemoglobin A1c percentageOrd ered By: Red Perez on 03-01-2025 HbA1c (Bld) [Mass fraction] 7.6 % High <5.7 [facility] Comment on above: Normal < 5.7 % Predi abetic 5.7 - 6.4 % Diabetic >or= 6.5 % Please note range changes. Hemoglobin measurementOrdere d By: Red Perez on 03-01-2025 Hemoglobin (Bld) [Mass/Vol] 7.2 g/dL Low 12.0-15. 0 [facility] Hypochromatic red blood cell detectionOrdered By: Red Perez on 03-01-2025 Hypochromia Ql (Bld) 1+ [facility] Hypochromia Ql (Bld)Ordered By: Red Perez on 03-01-2025 Hypochromasia 1+ [facility] Immature granulocytes/100 WB C Auto (Bld)Ordered By: Red Perez on 03-01-2025 Immature granulocytes/100 WBC (Bld) 1.200 % High 0.0-0.9 [facility] Comment on above: IG% - Immature Granu locytes (promyelocytes, myelocytes and metamyelocytes) > 1% indicates that a LEFT SHIFT is Present. L501.4021on 03-01-2025 Trop T High Sen 14 ng/L Normal <=14 [facility] Comment on above: Order Comment: COLLE CTOR TO SPECIFY Performed By: #### L 503.0106, L500.4050, L501.1400, L400.0001, L503.6030, L3000.0800, L100.9950, L3890.6006, L501.5101, L100.0100, L504.2610, L501.5200, L506.0200, L3410.9992, L101.9900, L3100.1350, L3200.1200, L503.6550, L3200.0500, L501.6710 #### [facility] [address] [place], [place], [id number] LDL calc ser/plasOrdered By: Red Perez on 03-01-2025 Cholesterol in LDL [Mass/Vol] 117 mg/dL [facility] Comment on above: Qwcnovtcsg=836-992 m g/dL & Higher Ogoh=621 mg/dL or greater LDL Cholesterol, Calculated 117 mg/dL [facility] Comment on above: Dczuuhhhyo=188-653 m g/dL & Higher Vuay=936 mg/dL or greater Laboratory - Chemistry and C hemistry - challengeOrdered By: Red Perez on 03-01-2025 AST [Catalytic activity/Vol] 86 U/L High <32 [facility] - Hematology and Cell countsOrdered By: Red Perez on 03-01-2025 Anisocytosis Ql (Bld) 2+ [facility] Lipid Profileon 03-01-2025 CHOL:HDL 3.89 Normal [facility] Comment on above: Order Comment: MADHAVI CTOR TO SPECIFY Performed By: #### L 503.0106, L500.4050, L501.1400, L400.0001, L503.6030, L3000.0800, L100.9950, L3890.6006, L501.5101, L100.0100, L504.2610, L501.5200, L506.0200, L3410.9992, L101.9900, L3100.1350, L3200.1200, L503.6550, L3200.0500, L501.6710 #### [facility] [address] [place], [address] (430) Cholesterol [Mass/Vol] 194 mg/dL Normal <=200 [facility] Comment on above: Order Comment: MADHAVI CTOR TO SPECIFY Result Comment: Chol esterol level, Desirable <200 mg/dL Borderline high cholesterol 200-239 mg/dL High cholesterol >=240 mg/dL Recommendations of the NCEP Adult Treatment Panel for the following risk-cutoff thresholds for the [place] population. Performed By: #### L 503.0106, L500.4050, L501.1400, L400.0001, L503.6030, L3000.0800, L100.9950, L3890.6006, L501.5101, L100.0100, L504.2610, L501.5200, L506.0200, L3410.9992, L101.9900, L3100.1350, L3200.1200, L503.6550, L3200.0500, L501.6710 #### [facility] [address] [place], [place], [id number] Cholesterol in HDL [Mass/Vol] 50 mg/dL Normal [facility] Comment on above: Order Comment: COLLE CTOR TO SPECIFY Result Comment: Mayda onal Cholesterol [...] L101.9900, L3100.1350, L3200.1200, L503.6550, L3200.0500, L501.6710 #### [facility] [address] [facility] [place], [address] (424) Cholesterol in LDL [Mass/Vol] 117 mg/dL Normal [facility] Comment on above: Order Comment: MADHAVI CTOR TO SPECIFY Result Comment: Bord lahygz=954-451 mg/dL Higher Brlc=303 mg/dL or greater Performed By: #### L 503.0106, L500.4050, L501.1400, L400.0001, L503.6030, L3000.0800, L100.9950, L3890.6006, L501.5101, L100.0100, L504.2610, L501.5200, L506.0200, L3410.9992, L101.9900, L3100.1350, L3200.1200, L503.6550, L3200.0500, L501.6710 #### [facility] [address] [place], [place], [phone] (600) Cholesterol in VLDL [Mass/Vol] 27 mg/dL Normal 5-40 [facility] Comment on above: Order Comment: COLLE CTOR TO SPECIFY Performed By: #### L 503.0106, L500.4050, L501.1400, L400.0001, L503.6030, L3000.0800, L100.9950, L3890.6006, L501.5101, L100.0100, L504.2610, L501.5200, L506.0200, L3410.9992, L101.9900, L3100.1350, L3200.1200, L503.6550, L3200.0500, L501.6710 #### [facility] [address] [facility] [place], [address] Triglyceride [Mass/Vol] 134 mg/dL Normal W [facility] Comment on above: Order Comment: COLLE CTOR TO SPECIFY Result Comment: The drugs N-Acetylcysteine and Metamizole may falsely depress this assay. Normal range: <150 mg/dL Borderline High: 150-199 mg/dL High: 200-499 mg/dL Very High: >500 mg/dL Performed By: #### L 503.0106, L500.4050, L501.1400, L400.0001, L503.6030, L3000.0800, L100.9950, L3890.6006, L501.5101, L100.0100, L504.2610, L501.5200, L506.0200, L3410.9992, L101.9900, L3100.1350, L3200.1200, L503.6550, L3200.0500, L501.6710 #### [facility] [address] [facility] [place], [address] Lymphocytes Auto (Unsp spec) [#/Vol]Ordered By: Red Perez on 03-01-2025 Lymphocytes (Bld) [#/Vol] 0.63 10*3/uL Low 0.83-4.5 1 [facility] Lymphocytes/100 WBC Auto (Un sp spec)Ordered By: Red Perez on 03-01-2025 Lymphocytes/100 WBC (Bld) 12.6 % Low 19-41 [facility] MCV (mean corpuscular volume ) determinationOrdered By: Red Perez on 03-01-2025 MCV (RBC) [Entitic vol] 75.4 fL Low 81-99 [facility] Mean corpuscular hemoglobin (MCH) determinationOrdered By: Red Perez on 03-01-2025 MCH (RBC) [Entitic mass] 20.3 pg Low 27.0-32.0 [facility] Mean corpuscular hemoglobin concentration (MCHC) determinationOrdered By: Red Perez on 03-01-2025 MCHC (RBC) [Mass/Vol] 27.0 g/dL Low 32-36 [facility] Mean platelet volume determi nationOrdered By: Red Perez on 03-01-2025 Platelet mean volume (Bld) [Entitic vol] 10.5 fL 6.2-12.0 [facility] Monocyte percentageOrdered B y: Red Perez on 03-01-2025 Monocytes/100 WBC (Bld) 8.0 % 0-10 [facility] Neutrophil percentageOrdered By: Red Perez on 03-01-2025 Neutrophils/100 WBC (Bld) 73.8 % High 47-70 [facility] Nucleated red blood cell per centageOrdered By: Red Perez on 03-01-2025 Nucleated RBC/100 WBC (Bld) [Ratio] 0 % 0-5 [facility] Platelet countOrdered By: Yousuf Perez on 03-01-2025 Platelet Count See comment 150-450 [facility] Comment on above: Please note: For [...] LM Ql (Bld) ADEQUATE ADEQ [facility] Platelets LM Ql (Bld)Ordered By: Red Perez on 03-01-2025 Platelet Estimate ADEQUATE [facility] Potassium (Unsp spec) [Mass/ Vol]Ordered By: Red Perez on 03-01-2025 Potassium [Moles/Vol] 4.2 mmol/L 3.3-5.1 [facility] Potassium measurement (mass/ volume)Ordered By: Red Perez on 04-17-2025 Potassium (Unsp spec) [Mass/Vol] 4.2 mmol/L 3.3-5.1 [facility] Prolactin [Mass/Vol]Ordered By: Red Perez on 03-01-2025 Prolactin 62.0 ng/mL High 3.6-25.2 [facility] Comment on above: Performed at: [address] [id number] Director: Preston Ashley PhD, Phone: [phone] RBC Auto (Bld) [#/Vol]Ordere d By: Red Perez on 03-01-2025 RBC (Bld) [#/Vol] 3.54 10*6/uL Low 4.2-5.4 [facility] Screening total cholesterol/ high density lipoprotein (HDL) cholesterol ratioOrdered By: Red Perez on 03-01-2025 Cholesterol.total/Cholester ol in HDL [Mass ratio] 3.89 {ratio} [facility] Serum creatinine measurement (mass/volume)Ordered By: Red Perez on 03-01-2025 Creatinine [Mass/Vol] 1.04 mg/dL 0.70-1.20 [facility] Serum globulin measurementOr dered By: Red Perez on 03-01-2025 Globulin (S) [Mass/Vol] 2.6 g/dL 2.2-4.2 [facility] Serum glucose measurement (m ass/volume)Ordered By: Red Perez on 03-01-2025 Glucose [Mass/Vol] 158 mg/dL High 70-99 [facility] Serum or plasma alanine cueto otransferase (ALT) measurementOrdered By: Red Perez on 03-01-2025 ALT [Catalytic activity/Vol] 67 U/L High <35 [facility] Serum or plasma albumin sandy urement (mass/volume)Ordered By: Red Perez on 03-01-2025 Albumin [Mass/Vol] 4.2 g/dL 3.5-5.0 [facility] Serum or plasma albumin/glob ulin mass ratioOrdered By: Red Perez on 03-01-2025 Albumin/Globulin [Mass ratio] 1.6 {ratio} 0.9-2.4 [facility] Serum or plasma alkaline rebecca sphatase measurementOrdered By: Red Perez on 03-01-2025 ALP [Catalytic activity/Vol] 190 U/L High 35-104 [facility] Serum or plasma calcium sandy urement (mass/volume)Ordered By: Red Perez on 03-01-2025 Calcium [Mass/Vol] 8.9 mg/dL 7.6-11.0 [facility] Serum or plasma cholesterol in HDL measurement (mass/volume)Ordered By: Red Perez on 03-01-2025 Cholesterol in HDL [Mass/Vol] 50 mg/dL >40 [facility] Comment on above: National Cholesterol Education Program (NCEP) guidelines:<40 mg/dL: Low HDL-cholesterol (major risk factor for CHD)>= 60 mg/dL: High HDL-cholesterol (negative risk factor for CHD)HDL-cholesterol is affected by a number of factors, e.g. smoking, exercise, hormones, sex and age. Serum or plasma cholesterol measurement (mass/volume)Ordered By: Red Perez on 03-01-2025 Cholesterol [Mass/Vol] 194 mg/dL <201 [facility] Comment on above: Cholesterol level, D esirable <200 mg/dLBorderline high cholesterol 200-239 mg/dLHigh cholesterol >=240 mg/dLRecommendations of the NCEP Adult Treatment Panel for the following risk-cutoff thresholds for the [place] population. Serum or plasma prolactin me asurement (mass/volume)Ordered By: Red Perez on 03-01-2025 Prolactin [Mass/Vol] 62.0 ng/mL High 3.6-25.2 [facility] Comment on above: Performed at: [address] [id number] Director: Preston Ashley PhD, Phone: [phone] Serum or plasma urea nitroge n measurement (mass/volume)Ordered By: Red Perez on 03-01-2025 Urea nitrogen [Mass/Vol] 12 mg/dL 4-19 [facility] Sodium levelOrdered By: Red Perez on 03-01-2025 Sodium [Moles/Vol] 138 mmol/L 133-145 [facility] Total proteinOrdered By: Senait Perez on 03-01-2025 Protein [Mass/Vol] 6.8 g/dL 5.9-8.4 [facility] Triglycerides measurementOrd ered By: Red Perez on 03-01-2025 Triglyceride [Mass/Vol] 134 mg/dL <199 [facility] Comment on above: The drugs N-Acetylcy steine and Metamizole may falsely depress this assay. Normal range: <150 mg/dLBorderline High: 150-199 mg/dLHigh: 200-499 mg/dLVery High: >500 mg/dL Troponin T.cardiac High sens itivity method [Mass/Vol]Ordered By: Red Perez on 03-01-2025 Troponin T High Sensitivity 14 ng/L <14 [facility] Troponin T.cardiac [Mass/vol ume] in Serum or Plasma by High sensitivity methodOrdered By: Red Perez on 03-01-2025 Troponin T.cardiac High sensitivity method [Mass/Vol] 14 ng/L <14 [facility] White blood cell (WBC) count Ordered By: Red Perez on 03-01-2025 WBC (Bld) [#/Vol] 5.0 10*3/uL 4.4-11.0 [facility] Urgent Care Visit Reporton 1 12-08-2023 Urgent Care Visit Report [facility] [address], [address] [place] [address] OFFICE VISIT Date of Service: 10/08/24 MR#: [id number] Acct: [id number] Name: HEIDI ANDREWS Rep #: [id number] : 1970 Provider: DELILAH hansen Age/Sex: 54/F Location: [facility] Status: Signed Intake Vital Signs 12/01/22 09:27 [...] (Updated 10/08/24 @ 08:54 by Enrique Hwang PIT MANAGER, PIT MANAGER-C) Wears glasses Thyroid disease Diabetes Anemia Former [...] distress Orientation: alert, awake and oriented x3 [facility] Head: normal to inspection and normocephalic Ears: hearing grossly normal bilaterally, external ears normal and TM's normal bilaterally Nose: external nose normal, nares normal and no nasal discharge Face and sinus: normal facial exam and sinuses nontender Mouth: oral mucosae normal, lip normal, tongue normal, oropharynx normal and moist mu (more content not included)... Normal [facility] Cervical or vagninal specime n microscopic examination by cytology stain (reported asOrdered By: Patricia Thompson on 02-07-2024 Cytology report Cyto stain Doc (Cvx/Vag) Comment . [facility] Comment on above: The Pap smear [...] DNA Probe+sig amp Ql (Cvx) Negative Negative [facility] Comment on above: This nucleic acid am plification test detects fourteen high-risk HPV types (16,18,31,33,35,39,45,51,52,56,58,59,66,68)without differentiation.Performed at: [facility] [id number] Director: Cierra Chew MD, Phone: [phone] at: =[facility] [id number] Director: Cierra Chew MD, Phone: [phone] Laboratory - CytologyOrdered By: Patricia Thompson on 02-07-2024 [address] Security Officer Cyto stain Nom (Cvx/Vag) [ID] Comment . [facility] Comment on above: Pema Kincaid, Cyto technologist (ASCP) Laboratory - Miscellaneous t estsOrdered By: Patricia Thompson on 02-07-2024 Service comment (Unsp spec) [Interp] . . [facility] Thin prep Papanicolaou smear with manual screeningOrdered By: Patricia Thompson on 02-07-2024 Thin prep Papanicolaou smear with manual screening Comment . [facility] Comment on above: NEGATIVE FOR INTRAEP ITHELIAL LESION OR MALIGNANCY. This liquid based Th inPrep(R) pap test was screened withthe use of an image guided system. Basophil percentageOrdered B y: Red Perez on 01-19-2024 Chloride [Moles/Vol] 104 mmol/L 98-107 [facility] Cholesterol [Mass/Vol] 197 mg/dL <200 [facility] Comment on above: <200 mg/dL Desirable 200-240 mg/dL Borderline >240 mg/dL High Risk Glucose [Mass/Vol] 108 mg/dL 74-106 [facility] Comment on above: Fasting Glucose resu lt from 100 to 125 mg/dL suggests IMPAIRED HOMEOSTASIS per A.D.A. criteria. Potassium [Moles/Vol] 4.2 mmol/L 3.5-5.1 [facility] Sodium [Moles/Vol] 136 mmol/L 136-145 [facility] Triglyceride [Mass/Vol] 132 mg/dL <199 [facility] Comment on above: The drugs N-Acetylcy steine and Metamizole may falsely depress this assay.Serum Triglycerides Reference Interval Normal <150 mg/dL Borderline high 150 - 199 mg/dL High 200 - 499 mg/dL Very High > or = 500 mg/dL Laboratory - Chemistry and C hemistry - challengeOrdered By: Red Perez on 01-19-2024 Cholesterol in HDL [Mass/Vol] 43 mg/dL >40 [facility] Comment on above: The drugs N-Acetylcy steine and Metamizole may falsely depress this assay. Reference Range HDL <40 mg/dL Low HDL Cholesterol HDL >or= 60 mg/dL High HDL Cholesterol Cholesterol in LDL [Mass/Vol] 128 mg/dL 0-130 [facility] CO2 [Moles/Vol] 27.0 mmol/L 21.0-32.0 [facility] Urea nitrogen/Creatinine [Mass ratio] 10.7 mg/mg 10-20 [facility] No Panel InformationOrdered By: Red Perez on 01-19-2024 Estimated GFR (MDRD) Amer 81 mL/min >60 [facility] Comment on above: GFR Calc Estimated GFR (MDRD) Non-Af Amer 67 mL/min >60 [facility] Comment on above: Non- GFR Calc Free Triiodothyronine (T3) pg/dL 2.0 pg/mL 2.18-3.98 [facility] VLDL Cholesterol 26 mg/dL 5-40 [facility] Serum or plasma calcium sandy urement (mass/volume)Ordered By: Red Perez on 01-19-2024 Calcium [Mass/Vol] 8.9 mg/dL 8.5-10.1 [facility] Serum or plasma creatinine m easurement (mass/volume)Ordered By: Red Perez on 01-19-2024 Creatinine [Mass/Vol] 0.93 mg/dL 0.55-1.02 [facility] Comment on above: The validity of the calculated GFR & GFRAA in patients over 70 years has not been determined. Clinical correlation is essential. Serum or plasma thyroid stim ulating hormone (TSH) measurement (units/volume)Ordered By: Red Perez on 01-19-2024 TSH Qn 2.60 uIU/mL 0.358-3.74 [facility] Serum or plasma urea nitroge n measurement (mass/volume)Ordered By: Red Perez on 01-19-2024 Urea nitrogen [Mass/Vol] 10 mg/dL 7-18 [facility] Thin prep Papanicolaou smear with manual screeningOrdered By: Red Perez on 01-19-2024 Thin prep Papanicolaou smear with manual screening 5 5-15 [facility] Thin prep Papanicolaou smear with manual screening 1.33 ng/dL 0.76-1.46 [facility] Basophil percentageOrdered B y: Red Perez on 07-26-2023 Chloride [Moles/Vol] 104 mmol/L 98-107 [facility] Cholesterol [Mass/Vol] 186 mg/dL <200 [facility] Comment on above: <200 mg/dL Desirable 200-240 mg/dL Borderline >240 mg/dL High Risk Glucose [Mass/Vol] 121 mg/dL 74-106 [facility] Comment on above: Fasting Glucose resu lt from 100 to 125 mg/dL suggests IMPAIRED HOMEOSTASIS per A.D.A. criteria. Potassium [Moles/Vol] 3.8 mmol/L 3.5-5.1 [facility] Sodium [Moles/Vol] 139 mmol/L 136-145 [facility] Triglyceride [Mass/Vol] 198 mg/dL <199 [facility] Comment on above: The drugs N-Acetylcy steine and Metamizole may falsely depress this assay.Serum Triglycerides Reference Interval Normal <150 mg/dL Borderline high 150 - 199 mg/dL High 200 - 499 mg/dL Very High > or = 500 mg/dL Laboratory - Chemistry and C hemistry - challengeOrdered By: Red Perez on 07-26-2023 CO2 [Moles/Vol] 27.0 mmol/L 21.0-32.0 [facility] Urea nitrogen/Creatinine [Mass ratio] 10.4 mg/mg 10-20 [facility] No Panel InformationOrdered By: Red Perez on 07-26-2023 Estimated GFR (MDRD) Amer 79 mL/min >60 [facility] Comment on above: GFR Calc Estimated GFR (MDRD) Non-Af Amer 65 mL/min >60 [facility] Comment on above: Non- GFR Calc Thyroid Stimulating Hormone (TSH) 1.67 uIU/mL 0.358-3.74 [facility] Serum or plasma calcium sandy urement (mass/volume)Ordered By: Red Perez on 07-26-2023 Calcium [Mass/Vol] 8.8 mg/dL 8.5-10.1 [facility] Serum or plasma cholesterol in HDL measurement (mass/volume)Ordered By: Red Perez on 07-26-2023 Cholesterol in HDL [Mass/Vol] 36 mg/dL >40 [facility] Comment on above: The drugs N-Acetylcy steine and Metamizole may falsely depress this assay. Reference Range HDL <40 mg/dL Low HDL Cholesterol HDL >or= 60 mg/dL High HDL Cholesterol Serum or plasma cholesterol in VLDL measurement (mass/volume)Ordered By: Red Perez on 07-26-2023 Cholesterol in VLDL [Mass/Vol] 40 mg/dL 5-40 [facility] Serum or plasma creatinine m easurement (mass/volume)Ordered By: Red Perez on 07-26-2023 Creatinine [Mass/Vol] 0.96 mg/dL 0.55-1.02 [facility] Comment on above: The validity of the calculated GFR & GFRAA in patients over 70 years has not been determined. Clinical correlation is essential. Serum or plasma low density lipoprotein (LDL) cholesterol measurement (mass/volume)Ordered By: Red Perez on 07-26-2023 Cholesterol in LDL [Mass/Vol] 110 mg/dL 0-130 [facility] Serum or plasma urea nitroge n measurement (mass/volume)Ordered By: Red Perez on 07-26-2023 Urea nitrogen [Mass/Vol] 10 mg/dL 7-18 [facility] Thin prep Papanicolaou smear with manual screeningOrdered By: Red Perez on 07-26-2023 Thin prep Papanicolaou smear with manual screening 8 5-15 [facility] Whole blood hemoglobin A1c/t otal hemoglobin ratio (mass fraction)Ordered By: Red Perez on 07-26-2023 HbA1c (Bld) [Mass fraction] 5.6 % 3.8-5.6 [facility] Comment on above: Normal < 5.7 % Predi abetic 5.7 - 6.4 % Diabetic >or= 6.5 % Please note range changes. Basophil percentageOrdered B y: Dr. Perez on 01-25-2023 Chloride [Moles/Vol] 105 mmol/L 98-107 [facility] Cholesterol [Mass/Vol] 194 mg/dL <200 [facility] Comment on above: <200 mg/dL Desirable 200-240 mg/dL Borderline >240 mg/dL High Risk Glucose [Mass/Vol] 123 mg/dL 74-106 [facility] Comment on above: Fasting Glucose resu lt from 100 to 125 mg/dL suggests IMPAIRED HOMEOSTASIS per A.D.A. criteria. Potassium [Moles/Vol] 3.6 mmol/L 3.5-5.1 [facility] Sodium [Moles/Vol] 140 mmol/L 136-145 [facility] Triglyceride [Mass/Vol] 166 mg/dL <199 [facility] Comment on above: The drugs N-Acetylcy steine and Metamizole may falsely depress this assay.Serum Triglycerides Reference Interval Normal <150 mg/dL Borderline high 150 - 199 mg/dL High 200 - 499 mg/dL Very High > or = 500 mg/dL Laboratory - Chemistry and C hemistry - challengeOrdered By: Dr. Perez on 01-25-2023 CO2 [Moles/Vol] 25.0 mmol/L 21.0-32.0 [facility] Free T4 [Mass/Vol] 1.31 ng/dL 0.76-1.46 [facility] Urea nitrogen/Creatinine [Mass ratio] 12.0 mg/mg 10-20 [facility] No Panel InformationOrdered By: Dr. Perez on 01-25-2023 Estimated GFR (MDRD) Amer 58 mL/min >60 [facility] Comment on above: GFR Calc Estimated GFR (MDRD) Non-Af Amer 48 mL/min >60 [facility] Comment on above: Non- GFR Calc Free Triiodothyronine (T3) pg/dL 1.5 pg/mL 2.18-3.98 [facility] Thyroid Stimulating Hormone (TSH) 1.52 uIU/mL 0.358-3.74 [facility] Serum or plasma calcium sandy urement (mass/volume)Ordered By: Dr. Perez on 01-25-2023 Calcium [Mass/Vol] 9.5 mg/dL 8.5-10.1 [facility] Serum or plasma cholesterol in HDL measurement (mass/volume)Ordered By: Dr. Perez on 01-25-2023 Cholesterol in HDL [Mass/Vol] 39 mg/dL >40 [facility] Comment on above: The drugs N-Acetylcy steine and Metamizole may falsely depress this assay. Reference Range HDL <40 mg/dL Low HDL Cholesterol HDL >or= 60 mg/dL High HDL Cholesterol Serum or plasma cholesterol in VLDL measurement (mass/volume)Ordered By: Dr. Perez on 01-25-2023 Cholesterol in VLDL [Mass/Vol] 33 mg/dL 5-40 [facility] Serum or plasma creatinine m easurement (mass/volume)Ordered By: Dr. Perez on 01-25-2023 Creatinine [Mass/Vol] 1.25 mg/dL 0.55-1.02 [facility] Comment on above: The validity of the calculated GFR & GFRAA in patients over 70 years has not been determined. Clinical correlation is essential. Serum or plasma low density lipoprotein (LDL) cholesterol measurement (mass/volume)Ordered By: Dr. Perez on 01-25-2023 Cholesterol in LDL [Mass/Vol] 122 mg/dL 0-130 [facility] Serum or plasma urea nitroge n measurement (mass/volume)Ordered By: Dr. Perez on 01-25-2023 Urea nitrogen [Mass/Vol] 15 mg/dL 7-18 [facility] Thin prep Papanicolaou smear with manual screeningOrdered By: Dr. Perez on 01-25-2023 Thin prep Papanicolaou smear with manual screening 10 5-15 [facility] Glucose Glucometer (BldC) [M ass/Vol]Ordered By: Dr. Marie on 12-01-2022 Glucose [Mass/Vol] 147 mg/dL 74-106 [facility] Comment on above: MANAGEMENT OF PATIEN T CARE PER NURSING PROTOCOL Basophil percentageon 2021 Chloride [Moles/Vol] 107 mmol/L 98-107 [facility] Work Phone: Cholesterol [Mass/Vol] 175 mg/dL <200 [facility] Work Phone: Comment on above: <200 mg/dL Desirable 200-240 mg/dL Borderline >240 mg/dL High Risk Glucose [Mass/Vol] 117 mg/dL 74-106 [facility] Work Phone: Comment on above: Fasting Glucose resu lt from 100 to 125 mg/dL suggests IMPAIRED HOMEOSTASIS per A.D.A. criteria. Potassium [Moles/Vol] 4.0 mmol/L 3.5-5.1 [facility] Work Phone: Sodium [Moles/Vol] 140 mmol/L 136-145 [facility] Work Phone: Triglyceride [Mass/Vol] 141 mg/dL <199 [facility] Work Phone: Comment on above: The drugs N-Acetylcy steine and Metamizole may falsely depress this assay.Serum Triglycerides Reference Interval Normal <150 mg/dL Borderline high 150 - 199 mg/dL High 200 - 499 mg/dL Very High > or = 500 mg/dL Laboratory - Chemistry and C hemistry - challengeon 07-27-2022 CO2 [Moles/Vol] 23.0 mmol/L 21.0-32.0 [facility] Work Phone: Free T4 [Mass/Vol] 1.26 ng/dL 0.76-1.46 [facility] Work Phone: Urea nitrogen/Creatinine [Mass ratio] 9.6 mg/mg 10-20 [facility] Work Phone: No Panel Informationon 07-27 Estimated GFR (MDRD) Amer 72 mL/min >60 [facility] Work Phone: Comment on above: GFR Calc Estimated GFR (MDRD) Non-Af Amer 60 mL/min >60 [facility] Work Phone: Comment on above: Non- GFR Calc Free Triiodothyronine (T3) pg/dL 2.0 pg/mL 2.18-3.98 [facility] Work Phone: Thyroid Stimulating Hormone (TSH) 1.24 uIU/mL 0.358-3.74 [facility] Work Phone: Serum or plasma calcium sandy urement (mass/volume)on 07-27-2022 Calcium [Mass/Vol] 9.1 mg/dL 8.5-10.1 [facility] Work Phone: Serum or plasma cholesterol in HDL measurement (mass/volume)on 07-27-2022 Cholesterol in HDL [Mass/Vol] 41 mg/dL >40 [facility] Work Phone: Comment on above: The drugs N-Acetylcy steine and Metamizole may falsely depress this assay. Reference Range HDL <40 mg/dL Low HDL Cholesterol HDL >or= 60 mg/dL High HDL Cholesterol Serum or plasma cholesterol in VLDL measurement (mass/volume)on 07-27-2022 Cholesterol in VLDL [Mass/Vol] 28 mg/dL 5-40 [facility] Work Phone: Serum or plasma creatinine m easurement (mass/volume)on 07-27-2022 Creatinine [Mass/Vol] 1.04 mg/dL 0.55-1.02 [facility] Work Phone: Comment on above: The validity of the calculated GFR & GFRAA in patients over 70 years has not been determined. Clinical correlation is essential. Serum or plasma low density lipoprotein (LDL) cholesterol measurement (mass/volume)on 07-27-2022 Cholesterol in LDL [Mass/Vol] 106 mg/dL 0-130 [facility] Work Phone: Serum or plasma urea nitroge n measurement (mass/volume)on 07-27-2022 Urea nitrogen [Mass/Vol] 10 mg/dL 7-18 [facility] Work Phone: Thin prep Papanicolaou smear with manual screeningon 07-27-2022 Thin prep Papanicolaou smear with manual screening 10 5-15 [facility] Work Phone: Culture, urineon 04-22-2022 Bacteria identified Cx Nom (U) Escherichia coli [facility] Work Phone: Basophil percentageon 2021 Basophil percentage 5-10 SEEN /hpf [facility] Work Phone: Chloride [Moles/Vol] 104 mmol/L 98-107 [facility] Work Phone: Cholesterol [Mass/Vol] 194 mg/dL <200 [facility] Work Phone: Comment on above: <200 mg/dL Desirable 200-240 mg/dL Borderline >240 mg/dL High Risk Glucose [Mass/Vol] 105 mg/dL 74-106 [facility] Work Phone: Comment on above: Fasting Glucose resu lt from 100 to 125 mg/dL suggests IMPAIRED HOMEOSTASIS per A.D.A. criteria. Potassium [Moles/Vol] 4.3 mmol/L 3.5-5.1 [facility] Work Phone: Sodium [Moles/Vol] 137 mmol/L 136-145 [facility] Work Phone: Triglyceride [Mass/Vol] 191 mg/dL [facility] Work Phone: Comment on above: The drugs N-Acetylcy steine and Metamizole may falsely depress this assay.Serum Triglycerides Reference Interval Normal <150 mg/dL Borderline high 150 - 199 mg/dL High 200 - 499 mg/dL Very High > or = 500 mg/dL Bilirubin Test strip Ql (U)o n 01-26-2022 Bilirubin Ql (U) Negative Negative [facility] Work Phone: Ketones Test strip Ql (U)on 01-26-2022 Ketones Ql (U) Negative Negative [facility] Work Phone: Laboratory - Chemistry and C hemistry - challengeon 01-26-2022 CO2 [Moles/Vol] 24.0 mmol/L 21.0-32.0 [facility] Work Phone: Free T4 [Mass/Vol] 1.36 ng/dL 0.76-1.46 [facility] Work Phone: Urea nitrogen/Creatinine [Mass ratio] 13.0 mg/mg 10-20 [facility] Work Phone: Mucus LM Ql (Urine sed)on Mucus Ql (Urine sed) 0 SEEN /hpf [facility] Work Phone: Nitrite Test strip Ql (U)on 01-26-2022 Nitrite Ql (U) Negative Negative [facility] Work Phone: No Panel Informationon 01-26 Estimated GFR (MDRD) Amer 59 mL/min >60 [facility] Work Phone: Comment on above: GFR Calc Estimated GFR (MDRD) Non-Af Amer 49 mL/min >60 [facility] Work Phone: Comment on above: Non- GFR Calc Free Triiodothyronine (T3) pg/dL 1.7 pg/mL 2.18-3.98 [facility] Work Phone: Thyroid Stimulating Hormone (TSH) 3.39 uIU/mL 0.358-3.74 [facility] Work Phone: Protein Test strip Ql (U)on 01-26-2022 Protein Ql (U) 30 mg/dl Negative [facility] Work Phone: Serum or plasma calcium sandy urement (mass/volume)on 01-26-2022 Calcium [Mass/Vol] 9.5 mg/dL 8.5-10.1 [facility] Work Phone: Serum or plasma cholesterol in HDL measurement (mass/volume)on 01-26-2022 Cholesterol in HDL [Mass/Vol] 33 mg/dL [facility] Work Phone: Comment on above: The drugs N-Acetylcy steine and Metamizole may falsely depress this assay. Reference Range HDL <40 mg/dL Low HDL Cholesterol HDL >or= 60 mg/dL High HDL Cholesterol Serum or plasma cholesterol in VLDL measurement (mass/volume)on 01-26-2022 Cholesterol in VLDL [Mass/Vol] 38 mg/dL 5-40 [facility] Work Phone: Serum or plasma creatinine m easurement (mass/volume)on 01-26-2022 Creatinine [Mass/Vol] 1.23 mg/dL 0.55-1.02 [facility] Work Phone: Comment on above: The validity of the calculated GFR & GFRAA in patients over 70 years has not been determined. Clinical correlation is essential. Serum or plasma low density lipoprotein (LDL) cholesterol measurement (mass/volume)on 01-26-2022 Cholesterol in LDL [Mass/Vol] 123 mg/dL 0-130 [facility] Work Phone: Serum or plasma urea nitroge n measurement (mass/volume)on 01-26-2022 Urea nitrogen [Mass/Vol] 16 mg/dL 7-18 [facility] Work Phone: Squamous epithelial cells de tection in urine sediment by light microscopyon 01-26-2022 Epithelial cells.squamous LM Ql (Urine sed) 5-10 SEEN /hpf [facility] Work Phone: Thin prep Papanicolaou smear with manual screeningon 01-26-2022 Thin prep Papanicolaou smear with manual screening 9 5-15 [facility] Work Phone: Urine blood detectionon 01-13 RBC Ql (U) Negative Negative [facility] Work Phone: RBC Ql (U) 0 SEEN /hpf [facility] Work Phone: Urine clarityon 01-26-2022 Clarity (U) Clear Clear [facility] Work Phone: Urine color determinationon 01-26-2022 Color (U) Yellow Yellow [facility] Work Phone: Urine glucose detectionon Glucose Ql (U) Normal mg/dl Normal [facility] Work Phone: Urine leukocyte esterase det ection by dipstickon 01-26-2022 Leukocyte esterase Test strip Ql (U) 500 /ul Negative [facility] Work Phone: Urine pHon 01-26-2022 pH (U) 6.0 [pH] [facility] Work Phone: Urine sediment bacteria coun t by microscopy (number/high power field)on 01-26-2022 Bacteria LM.HPF (Urine sed) [#/Area] 0 /[HPF] None Seen [facility] Work Phone: Urine specific gravity measu rementon 01-26-2022 Specific gravity (U) [Rel density] 1.015 [facility] Work Phone: Urobilinogen Auto test strip Ql (U)on 01-26-2022 Urobilinogen Ql (U) Normal mg/dl Normal [facility] Work Phone: Culture, urine Bacteria identified Cx Nom (U) Escherichia coli [facility] Work Phone: Vital Signs Date Time Vital Sign Value Performing Clinician Faci lity 09-03-2025 15:15-0400 Body temperature 97.4 [degF] Dr. Red Perez MD Work Phone: [facility] 09-03-2025 15:15-0400 Diastolic blood pressure 86 mm[Hg] Dr. Red Perez MD Work Phone: [facility] 09-03-2025 15:15-0400 Heart rate 111 /min Dr. Red Perez MD Work Phone: [facility] 09-03-2025 15:15-0400 Respiratory rate 15 /min Dr. Red Perez MD Work Phone: [facility] 09-03-2025 15:15-0400 SaO2% (BldA) [Mass fraction] 99 % Dr. Red Perez MD Work Phone: 0(344)799-069780 [place] [address] 09-03-2025 15:15-0400 Systolic blood pressure 139 mm[Hg] Dr. Red Perez MD Work Phone: 7(077)359-487964 [place] [address] 08-31-2025 14:14-0400 Body height 167.[address] Red ePrez MD Work Phone: 3(731)433-073064 [place] [address] 08-31-2025 14:14-0400 Body weight [address] Red Perez MD Work Phone: 0(116)694-812664 [place] [address] 08-31-2025 13:27-0400 Body mass index (BMI) [Ratio] 33.4 kg/m2 Dr. Red Perez MD Work Phone: 4(953)748-991964 [place] [address] 08-27-2025 11:22-0400 Body mass index (BMI) [Ratio] 36.1 kg/m2 Dr. Red Perez MD Work Phone: 7(575)744-130364 [place] [address] 08-27-2025 11:22-0400 Body temperature 97 [degF] Dr. Red Perez MD Work Phone: 6(936)553-318464 [place] [address] 08-27-2025 11:22-0400 Body weight 101.[address] Red Perez MD Work Phone: 2(724)154-973564 [place] [address] 08-27-2025 11:22-0400 Diastolic blood pressure 72 mm[Hg] Dr. Red Perez MD Work Phone: 4(832)279-951064 [place] [address] 08-27-2025 11:22-0400 Heart rate 82 /min Dr. Red Perez MD Work Phone: 1(817)134-096364 [place] [address] 08-27-2025 11:22-0400 Respiratory rate 18 /min Dr. Red Perez MD Work Phone: 7(078)637-208564 [place] [address] 08-27-2025 11:22-0400 SaO2% (BldA) [Mass fraction] 99 % Dr. Red Perez MD Work Phone: 7(851)939-437064 [place] [address] 08-27-2025 11:22-0400 Systolic blood pressure 98 mm[Hg] Dr. Red Perez MD Work Phone: [facility] 06-04-2025 11:10-0400 Body height 167.[address] Red Perez MD Work Phone: [facility] 06-04-2025 11:10-0400 Body mass index (BMI) [Ratio] 43.4 kg/m2 Dr. Red Perez MD Work Phone: 4(543)904-294980 [place] [address] 06-04-2025 11:10-0400 Body temperature 97.6 [degF] Dr. Red Perez MD Work Phone: 5(600)472-112680 [place] [address] 06-04-2025 11:10-0400 Body weight 122.[address] Red Perez MD Work Phone: 0(236)045-558234 [address] 06-04-2025 11:10-0400 Diastolic blood pressure 71 mm[Hg] Dr. Red Perez MD Work Phone: 4(127)046-935334 [address] 06-04-2025 11:10-0400 Heart rate 78 /min Dr. Red Perez MD Work Phone: 5(729)846-690780 [place] [address] 06-04-2025 11:10-0400 Respiratory rate 18 /min Dr. Red Perez MD Work Phone: 6(196)177-428734 [address] 06-04-2025 11:10-0400 SaO2% (BldA) [Mass fraction] 96 % Dr. Red Perez MD Work Phone: 8(892)842-175880 [place] [address] 06-04-2025 11:10-0400 Systolic blood pressure 121 mm[Hg] Dr. Red Perez MD Work Phone: [facility] 05-07-2025 08:27-0400 Body height 167.[address] Red Perez MD Work Phone: [facility] 05-07-2025 08:27-0400 Body mass index (BMI) [Ratio] 43.5 kg/m2 Dr. Red Perez MD Work Phone: [facility] 05-07-2025 08:27-0400 Body temperature 98 [degF] Dr. Red Perez MD Work Phone: [facility] 05-07-2025 08:27-0400 Body weight 122.[address] Red Perez MD Work Phone: [facility] 05-07-2025 08:27-0400 Diastolic blood pressure 82 mm[Hg] Dr. Red Perez MD Work Phone: 2(822)007-565280 [place] [address] 05-07-2025 08:27-0400 Heart rate 75 /min Dr. Red Perez MD Work Phone: 7(739)707-422380 [place] [address] 05-07-2025 08:27-0400 Respiratory rate 18 /min Dr. Red Perez MD Work Phone: 9(871)679-202164 [place] [address] 05-07-2025 08:27-0400 SaO2% (BldA) [Mass fraction] 96 % Dr. Red Perez MD Work Phone: 9(504)562-838834 [address] 05-07-2025 08:27-0400 Systolic blood pressure 132 mm[Hg] Dr. Red Perez MD Work Phone: 3(718)751-969034 [address] 03-29-2025 10:18-0400 Diastolic blood pressure 51 mm[Hg] Dr. Red Perez MD Work Phone: 3(960)918-385034 [address] 03-29-2025 10:18-0400 Heart rate 79 /min Dr. Red Perez MD Work Phone: 4(608)683-701780 [place] [address] 03-29-2025 10:18-0400 Respiratory rate 16 /min Dr. Red Perez MD Work Phone: [facility] 03-29-2025 10:18-0400 SaO2% (BldA) [Mass fraction] 97 % Dr. Red Perez MD Work Phone: 8(898)029-501434 [address] 03-29-2025 10:18-0400 Systolic blood pressure 114 mm[Hg] Dr. Red Perez MD Work Phone: 8(633)831-785234 [address] 03-29-2025 08:03-0400 Body height 167.[address] Red Perez MD Work Phone: 2(397)901-558580 [place] [address] 03-29-2025 08:03-0400 Body mass index (BMI) [Ratio] 43.5 kg/m2 Dr. Red Perez MD Work Phone: [facility] 03-29-2025 08:03-0400 Body temperature 96.4 [degF] Dr. Red Perez MD Work Phone: [facility] 03-29-2025 08:03-0400 Body weight 122.[address] Red Perez MD Work Phone: 8(669)493-067680 [place] [address] 03-08-2025 08:22-0400 Body mass index (BMI) [Ratio] 44.7 kg/m2 Dr. Red Perez MD Work Phone: 1(791)666-881264 [place] [address] 03-08-2025 08:22-0400 Body temperature 98.3 [degF] Dr. Red Perez MD Work Phone: 4(062)467-355234 [address] 03-08-2025 08:22-0400 Body weight 125.[address] Red Perez MD Work Phone: [facility] 03-08-2025 08:22-0400 Diastolic blood pressure 74 mm[Hg] Dr. Red Perez MD Work Phone: 0(068)555-907134 [address] 03-08-2025 08:22-0400 Heart rate 78 /min Dr. Red Perez MD Work Phone: 5(018)874-781880 [place] [address] 03-08-2025 08:22-0400 Respiratory rate 18 /min Dr. Red Perez MD Work Phone: [facility] 03-08-2025 08:22-0400 SaO2% (BldA) [Mass fraction] 97 % Dr. Red Perez MD Work Phone: [facility] 03-08-2025 08:22-0400 Systolic blood pressure 113 mm[Hg] Dr. Red Perez MD Work Phone: [phone] [address] 12-01-2022 10:40-0500 Body temperature 96.9 [degF] Dr. Red Perez Work Phone: [phone] [place] [address] 12-01-2022 10:40-0500 Diastolic blood pressure 64 mm[Hg] Dr. Red Perez Work Phone: [facility] 12-01-2022 10:40-0500 Heart rate 62 /min Dr. Red Perez Work Phone: [facility] 12-01-2022 10:40-0500 Respiratory rate 16 /min Dr. Red Perez Work Phone: [facility] 12-01-2022 10:40-0500 SaO2% (BldA) [Mass fraction] 96 % Dr. Red Perez Work Phone: [facility] 12-01-2022 10:40-0500 Systolic blood pressure 106 mm[Hg] Dr. Red Perez Work Phone: [facility] 12-01-2022 09:27-0500 Body height 167.[address] Red Perez Work Phone: [facility] 12-01-2022 09:27-0500 Body mass index (BMI) [Ratio] 36.3 kg/m2 Dr. Red Perez Work Phone: [facility] 12-01-2022 09:27-0500 Body weight [address] Red Perez Work Phone: [facility] 11-10-2022 16:24-0500 Body mass index (BMI) [Ratio] 37.1 kg/m2 Dr. Red Perez Work Phone: [facility] 11-10-2022 16:24-0500 Body weight 104.[address] Red Perez Work Phone: [facility] Encounters Encounter Date Encounter Type Care Provider Facility Start: 09-24-2025 ambulatory Glen Chapman Facility:[facility] Start: 09-17-2025 Encounter for other preprocedural examination Cynthia SNOW [facility] Start: 09-14-2025 End: 09-14-2025 ambulatory Red Perez Facility:[facility] Start: 09-11-2025 End: 09-11-2025 ambulatory JEM JAVIER [facility] Start: 09-07-2025 End: 09-07-2025 ambulatory Red Perez Facility:[facility] Start: 09-03-2025 Dr. Jacques Muñoz [facility] Work Phone: Start: 09-02-2025 Dr. Frantz maki [facility] Work Phone: Start: 09-01-2025 Dr. Frantz maki [facility] Work Phone: Start: 08-31-2025 Dr. Frantz maki [facility] Work Phone: Start: 08-31-2025 ambulatory Memo Mcclouddana Zeng ity:[facility] Start: 08-31-2025 End: 09-03-2025 Evaluation and management of inpatient Dr. Red Perez MD Work Phone: -Medical Surgical 3 Start: 08-31-2025 End: 09-03-2025 Dr. Jacques Muñoz [facility] Surgical 3 Work Phone: Start: 08-30-2025 Dr. Glen Chapman MD -[facility] Start: 08-30-2025 ambulatory Red Perez Facility:[facility] Start: 08-27-2025 End: 08-27-[address] Glen Chapman MD -[facility] Work Phone: Start: 08-27-2025 End: 08-27-2025 Dr. Glen Chapman MD -[facility] Work Phone: Start: 08-27-2025 End: 08-27-[address] Red Perez MD Work Phone: -[facility] Start: 08-22-2025 End: 08-22-[address] Red Perez MD -[facility] Work Phone: Start: 08-22-2025 End: 08-22-2025 Dr. Red Perez MD -[facility] Work Phone: Start: 08-22-2025 End: 08-22-2025 ambulatory Red Perez Facility:[facility] Start: 08-17-2025 End: 08-17-[address] Red Perez MD -[facility] Start: 08-17-2025 End: 08-17-2025 Dr. Red Perez MD -[facility] Start: 08-17-2025 End: 08-17-2025 ambulatory Red Perez Facility:[facility] Start: 08-13-2025 End: 08-13-[address] Red Perez MD Work Phone: -Radiology [facility] Start: 08-13-2025 End: 08-13-[address] Nikolai Kim MD -Radiology [facility] Work Phone: Start: 08-13-2025 End: 08-13-2025 Dr. Nikolai Kim MD -Radiology [facility] Work Phone: Start: 08-13-2025 End: 08-13-2025 ambulatory Nikolai Kim Facility:[facility] Start: 06-27-2025 End: 06-27-[address] Red Perez MD Work Phone: -[facility] Start: 06-27-2025 End: 06-27-[address] Red Perez MD -[facility] Start: 06-27-2025 End: 06-27-2025 Dr. Red Perez MD -[facility] Start: 06-27-2025 End: 06-27-2025 ambulatory Red Perez Facility:[facility] Start: 06-15-2025 End: 06-15-[address] Red Perez MD Work Phone: -[facility] Start: 06-15-2025 End: 06-15-[address] Nikolai Kim MD -[facility] Work Phone: Start: 06-15-2025 End: 06-15-2025 Dr. Nikolai Kim MD -[facility] [place] Work Phone: Start: 06-15-2025 End: 06-15-2025 ambulatory Nikolai Kim Facility:[facility] Start: 06-04-[address] Glen Chapman MD -[facility] Start: 06-04-2025 End: 06-04-[address] Glen Chapman MD -[facility] Work Phone: Start: 06-04-2025 End: 06-04-2025 Dr. Glen Chapman MD -[facility] Work Phone: Start: 06-04-2025 End: 06-04-[address] Red Perez MD Work Phone: [facility] Start: 05-07-2025 End: 05-07-[address] Glen Chapman MD -[facility] Work Phone: Start: 05-07-2025 End: 05-07-2025 ambulatory Glen Chapman Facility:[facility] Start: 05-07-[address] Glen Chapman MD -[facility] Start: 04-17-2025 ambulatory John Damian Facility:[facility] Start: 04-17-2025 Non-patient / Non-visit Dr. John real MD -[facility] Start: 04-17-2025 End: 04-17-[address] Red Perez MD Work Phone: [facility] Work Phone: Start: 04-17-2025 End: 04-17-[address] Red Perez MD -Cardiovascular Services Work Phone: Start: 04-17-2025 End: 04-17-2025 ambulatory Red Perez Facility:[facility] Start: 03-29-2025 End: 03-29-[address] Red Perez MD Work Phone: [facility] Work Phone: Start: 03-29-2025 End: 03-29-[address] Red Perez MD -[facility] Start: 03-29-[address] Glen Chapman MD -[facility] Start: 03-29-2025 End: 03-29-[facility] Start: 03-08-2025 End: 03-08-[address] Glen Chapman MD -[facility] Work Phone: Start: 03-08-2025 End: 03-08-2025 ambulatory Red Perez Facility:[facility] Start: 03-05-2025 Non-patient / Non-visit Yamila Cohen si OSCAR -[facility] Work Phone: Start: 03-05-2025 ambulatory Red Perez Facility:[facility] Start: 03-05-2025 End: 03-05-[address] [facility] [place] Start: 03-05-2025 End: 03-05-2025 ambulatory Red Perez Facility:[facility] Start: 03-01-2025 End: 03-01-[address] Red Perez MD Work Phone: [facility] Work Phone: Start: 03-01-2025 End: 03-01-[address] [facility] Start: 03-01-2025 End: 03-01-2025 ambulatory Red Perez Facility:[facility] Start: 10-08-2024 End: 10-08-2024 ambulatory Red Ana Facility:[facility] Start: 02-07-2024 End: 02-07-2024 ambulatory [facility] Work Phone: Start: 02-07-2024 End: 02-07-2024 Patient encounter procedure [facility]-Laboratory, Specimen Work Phone: Start: 01-19-2024 End: 01-19-2024 ambulatory [facility] Work Phone: Start: 01-19-2024 End: 01-19-2024 Patient encounter procedure [facility] [place] Start: 07-26-2023 End: 07-26-2023 ambulatory [facility] Work Phone: Start: 07-26-2023 End: 07-26-2023 Patient encounter procedure [facility] Start: 01-25-2023 End: 01-25-[address] Rde Perez Work Phone: [facility] Work Phone: Start: 01-25-2023 End: 01-25-[address] Red Perez Work Phone: [facility] Start: 12-01-2022 Non-patient / Non-visit Dr. Yousuf Perez Work Phone: [facility] Start: 12-01-2022 End: 12-01-2022 Admission to same day surgery center Dr. Red Perez Work Phone: [facility]-Endoscopy Start: 12-01-2022 End: 12-01-[address] Red Perez Work Phone: [facility] Work Phone: Start: 11-10-2022 Non-patient / Non-visit Dr. Yousuf Perez Work Phone: [facility] Start: 07-27-2022 End: 07-27-2022 ambulatory [facility] Work Phone: Start: 07-27-2022 End: 07-27-2022 Patient encounter procedure [facility] [place] Start: 06-26-2022 End: 06-26-2022 Patient encounter procedure [facility]-Laboratory, Specimen Start: 04-22-2022 End: 04-22-2022 [facility] Start: 01-26-2022 End: 01-26-[address] [facility] Procedures Date Procedure Procedure Detail Performing Clinician Start: 09-14-2025 Mean corpuscular hem oglobin concentration determination Dr. Red Perez MD Work Phone: Start: 09-14-[address] Yousuf Perez MD Work Phone: Start: 09-14-2025 Nucleated [...] hepatitis. Start: 09-02-2025 C>3< complement assay D rFelix Perez MD Work Phone: Start: 09-02-2025 Urine [...] Work Phone: Start: 08-31-[address] Yousuf Perez MD Work Phone: Start: 08-31-2025 Nucleated [...] Work Phone: Start: 08-27-[address] Yousuf Perez MD Work Phone: Start: 08-27-2025 Nucleated red blood cell count procedure Dr. Red Perez MD Work Phone: Start: 08-27-2025 Platelet mean volume determination Dr. Red Perez MD Work Phone: Start: 08-27-[address] Red cool MD Work Phone: Comment on above: Test Ordered: [id number] ANIRUDH, IFA Rfx 9 Frantz MultiplexANA by [...] may be detected byANA IFA methodology.Performed at: [address] [id number] Director: Preston Ashley PhD, Phone: [phone] Start: 08-27-2025 Total iron binding c apacity measurement Dr. Red Perez MD Work Phone: Start: 08-22-[address] e measurement Dr. Red Perez MD Work Phone: Start: 08-22-2025 Mean corpuscular hem oglobin concentration determination Dr. Red Perez MD Work Phone: Start: 08-22-[address] Yousuf Perez MD Work Phone: Start: 08-22-2025 Nucleated red blood cell count procedure Dr. Red Perez MD Work Phone: Start: 08-22-2025 Platelet mean volume determination Dr. Red Perez MD Work Phone: Start: 08-22-2025 Serum inorganic phos phate measurement Dr. Red Perez MD Work Phone: Start: 08-22-2025 Total iron binding c apacity measurement Dr. Red ePrez MD Work Phone: Start: 08-17-2025 Mean corpuscular hem oglobin concentration determination Dr. Red Perez MD Work Phone: Start: 08-17-[address] Yousuf Perez MD Work Phone: Start: 08-17-2025 Nucleated red blood cell count procedure Dr. Red Perez MD Work Phone: Start: 08-17-2025 Platelet mean volume determination Dr. Red Perez MD Work Phone: Start: 08-17-2025 Total iron binding c apacity measurement Dr. Red Perze MD Work Phone: Start: 06-27-2025 Mean corpuscular hem oglobin concentration determination Dr. Red Perez MD Work Phone: Start: 06-27-[address] Yousuf Perez MD Work Phone: Start: 06-27-2025 Nucleated [...] Work Phone: Comment on above: Performed at: [address] [id number] Director: Preston Ashley PhD, Phone: [phone] Start: 12-01-[address] Red cool Work Phone: Start: 04-22-2022 Urine culture Urine culture Plan of Treatment Date Care Activity Detail Author Start: 09-14-2025 End: 09-14-2025 -[facility] Start: 09-07-2025 Patient encounter procedure Registered Clinical -[facility] Work Phone: Start: 09-07-2025 End: 09-07-2025 -[facility] Work Phone: Start: 09-03-2025 Patient discharge [facility] Start: 09-03-2025 Non-patient / Non-visit Non-[facility] / [facility] Work [facility]: Start: 09-02-2025 Non-patient / Non-visit Non-patient / [facility] Work Phone: Start: 09-01-2025 Non-patient / Non-visit Non-patient / [facility] Work [facility]: Start: 09-01-2025 [facility] Start: 08-31-2025 Non-patient / Non-visit Non-patient / [facility] Work Phone: Start: 08-31-2025 Referral to biochemical engineer [facility] Start: 08-31-2025 Following clinical pathway protocol [facility] Start: 08-31-2025 Assessment of risk of venous thromboembolism [facility] Start: 08-31-2025 Care regimes management [facility] Start: 08-31-2025 Insertion of catheter into peripheral vein [facility] Start: 08-31-2025 Notification of physician [facility] Start: 08-31-2025 Providing care according to standard [facility] Start: 08-31-2025 Provision of activity privileges [facility] Start: 08-31-2025 Referral for physical therapy [facility] Start: 08-31-2025 Referral to occupational therapist [facility] Start: 08-31-2025 End: 08-31-2025 [facility] Start: 08-31-2025 Us retroperitoneal real time w/image complete Kidney and Bladder [facility] Start: 08-31-2025 Admission procedure [facility] Start: 08-31-2025 End: 09-03-2025 Evaluation and management of inpatient Acute hyponatremia -Medical Surgical 3 Work Phone: Start: 08-31-2025 Radex ankle complete minimum 3 views Ankle min 3 Views [facility] Start: 08-31-2025 CT of head without contrast Brain/Head without Contrast [facility] Start: 08-31-2025 Plain chest X-ray Chest 1 View [facility] Start: 08-31-2025 [facility] Start: 08-31-2025 Patient referral to dietitian [facility] Start: 08-30-2025 Registered Recurring Registered Recurring -[facility] Start: 08-30-2025 Measurement of occult blood in stool specimen using immunoassay Stool Occult Blood (KIRK) [facility] Start: 08-27-2025 Serum inorganic phosphate measurement [facility] Start: 08-24-2025 Lactate dehydrogenase measurement [facility] Start: 08-24-2025 Serum inorganic phosphate measurement [facility] Start: 08-24-2025 Vitamin B12 measurement [facility] Start: 06-04-2025 [facility] Start: 05-07-2025 [facility] Start: 03-08-2025 Patient referral [facility] Work Phone: Start: 12-01-2022 Colonoscopy flx dx w/collj spec when pfrmd DIAGNOSTIC COLONOSCOPY [facility] Start: 12-01-2022 Patient discharge [facility] C reactive protein [Mass/volume] in Serum or Plasma [facility] C reactive protein [Mass/volume] in Serum or Plasma [facility] CBC W Auto Different ial panel - Blood [facility] CBC W Auto Different ial panel - Blood [facility] CBC W Auto Different ial panel - Blood [facility] Cobalamin (Vitamin B 12) [Mass/volume] in Serum or Plasma [facility] Cobalamin (Vitamin B 12) [Mass/volume] in Serum or Plasma [facility] Colonoscopy [facility] Comprehensive metabo lic 1999 panel - Serum or Plasma [facility] Comprehensive metabo lic 1999 panel - Serum or Plasma [facility] Erythrocyte sediment ation rate [facility] Erythrocyte sediment ation rate [facility] Ferritin [Mass/volum e] in Serum or Plasma [facility] Ferritin [Mass/volum e] in Serum or Plasma [facility] Ferritin [Mass/volum e] in Serum or Plasma [facility] Folate [Moles/volume ] in Serum or Plasma [facility] Folate [Moles/volume ] in Serum or Plasma [facility] Folate [Moles/volume ] in Serum or Plasma [facility] Iron and Iron bindin g capacity panel - Serum or Plasma [facility] Iron and Iron bindin g capacity panel - Serum or Plasma [facility] Iron and Iron bindin g capacity panel - Serum or Plasma [facility] Lactate dehydrogenas e measurement [facility] Lactate dehydrogenas e measurement [facility] Lactate dehydrogenas e measurement [facility] Liver stiffness by US.transient elastography [facility] Magnesium measurement [facility] Magnesium measurement [facility] Magnesium measurement [facility] Patient referral [facility] Work Phone: Serum inorganic phos phate measurement [facility] Serum inorganic phos phate measurement [facility] Serum inorganic phos phate measurement [facility] Vitamin B12 measurement [facility] Payers Date Payer Category Payer Private Health Insurance [id number] 2024 Private Health Insurance [id number] 2024 Self-pay [id number] 1970 Unknown [id number] 2.16.8 40.1.686097.3.579.2.651 Unknown [id number] Unknown [id number] 2.16.8 40.1.955109.3.579.2.462 Unknown [id number] 2.16.8 40.1.706873.3.579.2.462 Unknown [id number] 2.16.8 40.1.074083.3.579.2.462 Unknown [id number] 2.16.8 40.1.777002.3.579.2.462 Unknown [id number] 2.16.8 40.1.843286.3.579.2.462 Unknown [id number] 2.16.8 40.1.401610.3.579.2.462 Unknown [id number] 2.16.8 40.1.213287.3.579.2.462 Unknown [id number] 2.16.8 40.1.864754.3.579.2.462 Unknown [id number] 2.16.8 40.1.406510.3.579.2.462 Unknown [id number] 2.16.8 40.1.894454.3.579.2.462 Unknown [id number] 2.16.8 40.1.317410.3.579.2.462 Unknown [id number] 2.16.8 40.1.846226.3.579.2.462 Unknown [id number] 2.16.8 40.1.487082.3.579.2.462 Unknown [id number] 2.16.8 40.1.495195.3.579.2.462 Unknown [id number] 2.16.8 40.1.202450.3.579.2.462 Unknown [id number] 2.16.8 40.1.232413.3.579.2.462 Unknown [id number] 2.16.8 40.1.334288.3.579.2.462 Unknown [id number] 2.16.8 40.1.645108.3.579.2.462 Unknown [id number] 2.16.8 40.1.279510.3.579.2.462 Unknown [id number] 2.16.8 40.1.746348.3.579.2.462 Unknown [id number] 2.16.8 40.1.888484.3.579.2.462 Unknown [id number] 2.16.8 40.1.186054.3.579.2.462 Unknown [id number] 2.16.8 40.1.778555.3.579.2.462 Unknown [id number] 2.16.8 40.1.722523.3.579.2.462 Unknown [id number] 2.16.8 40.1.954485.3.579.2.462 Social History Date Type Detail Facility Tobacco smoking status NHIS Unknown if ever smoked [facility] Work Phone: Start: 1970 Sex Assigned At Female [facility] Start: 12-01-2022 End: 12-01-2022 Tobacco smoking status NHIS Unknown if ever smoked [facility] Start: 03-05-2025 End: 08-31-2025 Tobacco smoking status NHIS Ex-smoker (finding) [facility] Start: 03-06-2025 Sex Female (finding) [facility] Sex [facility] NEGATED: Highlighted row [facility] Goals Date Patient Goal Desired Activity /State Functional Status Date Assessment Result Facility 09-03-[address] [facility] Work Phone: Mental Status Date Assessment Result Facility 09-03-2025 Cognitive function Appropriate [facility] Work Phone: 09-03-2025 Cognitive function Voice/Name [facility] Work Phone: 03-29-2025 Cognitive function Awake;Alert;A ppropriate;Foll ows Commands [facility] Work Phone: 03-15-2025 Cognitive function Voice/Name [facility] Work Phone: 12-01-2022 Cognitive function Voice/Name [facility] Work Phone: Clinical Notes 12-01-2022 to 09-03-2025 Note Date & Type Note Facility 09-03-2025 Discharge summary Note Date/Time September 03, 2025 2:02pm [facility] Medical Records Department [address] [place] [address] Instructions for Home/Discharge Instructions 09/03/25 1228 MR#: [id number] Acct: [id number] Name: HEIDI ANDREWS Rep #:[id number] : 1970 55 From: Jacques hernandez DO [...] Profile (BMP) (Routine) Timeframe: 3 Days Facility: [facility] - Location: Laboratory Ordered By: Dr. Jacques [...] DO; Dr. Red Perez MD ~ Signed [facility] Work Phone: 1(375) 494-436110-20-2025 Consult note Author Channing Parker [facility] Note Date/Time September 03, 2025 2 :56pm [facility] Medical Records Department [address] [place] [address] Counseling Note - Pharmacy 09/03/25 1355 MR#: [id number] Acct: [id number] Name: HEIDI ANDREWS Rep #:[id number] : 1970 55 From: Channing Parker PCP: Dr. Red Perez MD Status:ADM I N Y [place] [facility] [id number] Pharmacy DC Med Rec Counseling Pharmacy Service has performed discharge medication [...] signed by Channing haynes> Date _ Channing Morrowrenetta Signature (if applicable): Date CC: ~ Signed [facility] Work Phone: 1(526) 891-533710-20-2025 Discharge summary [facility] Note Date/Time September 03, 2025 4 :34pm [facility] Medical Records Department [address] [place] [address] Discharge Summary 09/03/25 1229 MR#: [id number] Acct: [id number] Name: HEIDI ANDREWS Rep #:[id number] : 1970 55 From: Jacques Arango [facility] PCP: Dr. Red Perez MD Status:DIS I N [place] [facility] HC917-3 Providers Date of Admission: 08/31/25 Date of [...] is a 55-year-old female who presented to [facility] ED on 08/31/2025 with syncope and right [...] 08/31/25 14:36 SB (Rec: 08/31/25 14:36 SB [id number]) Nutrition Malnutrition Evidence of Yes Malnutrition Exists [...] Profile (BMP) (Routine) Timeframe: 3 Days Facility: [facility] - Location: Laboratory Ordered By: Dr. Jacques [...] Self Care Charges/Coding Visit Charges Inpatient E&M: 07741 Disch Hosp >30min 09/06/25 1040 <Electronically signed by Jacques Muñoz DO> Cosigner Signature (if applicable): CC: Dr. Jacques Muñoz DO; Dr. Red Perez MD~ Signed [facility] Work Phone: 1(292) 413-868810-20-2025 Hospital Discharge instructionsAdditional Instructions Please take the [...] 1 to 2 weeks. Date of Discharge: 09/03/25[facility] Work Phone: 1(767) 859-403210-20-2025 [facility] Medical Records Department [address] [place] [address] Discharge Summary 09/03/25 1229 MR#: [id number] Acct: [id number] Name: HEIDI ANDREWS Rep #: [id number] : 1970 55 From: Jacques Muñoz DO PCP: Dr. Red Perez MD Status:DIS IN Location: MS3 [id number] Providers Date of Admission: 08/31/25 Date of [...] is a 55-year-old female who presented to [facility] ED on 08/31/2025 with syncope and right [...] started on Ozempic (more content not included)... [facility]10-19-2025 Progress note Author Frantz Gunderson [facility] Note Date/Time September 02, 2025 1 :43pm [facility] Medical Records Department [address] [facility] [place] [address] Progress Note - Hospitalist 09/02/25 1230 MR#: [id number] Acct: [id number] Name: HEIDI ANDREWS Rep #:[id number] : 1970 55 From: Frantz Gunderson DO PCP: Dr. Red Perez MD Status:ADM I N Location: [place] [address] Reason for Visit Chief Complaint: Syncope, right [...] 08/31/25 14:36 SB (Rec: 08/31/25 14:36 SB [id number]) Nutrition Malnutrition Evidence of Yes Malnutrition Exists [...] 35 minutes Charges/Coding Visit Charges Inpatient E&M: 36956 Subs Hosp L2 09/02/25 1243 <Electronically signed by Frantz Gunderson DO> Cosigner Signature (if applicable): CC: ~ Signed [facility] Work Phone: 1(312) 556-547510-19-2025 Discharge summary Author Frantz Gunderson [facility] Note Date/Time September 02, 2025 1 :24pm [facility] Medical Records Department [address] [facility] [place] [address] Instructions for Home/Discharge Instructions 09/02/25 1217 MR#: [id number] Acct: [id number] Name: HEIDI ANDREWS Rep #:[id number] : 1970 55 From: Frantz Gunderson DO [...] that you were hospitalized and saw Dr. Valedz in the hospital Red Perez MD [Primary Care Provider, Family Practice] - See Referral Note Referral Note: In 2 weeks Disposition Disposition (needs filled in before D/C Order can be placed): Home, Self Care 09/02/25 1224<Electronically signed by Frantz Gunderson DO>Frantz Gunderson DO CC: Dr. Memo Valdez MD; Dr. Red Perez MD ~ Signed [facility] Work Phone: 1(228) 519-777610-18-2025 Progress note Author [facility]z [facility] Note Date/Time September 01, 2025 8 :37pm [facility] Medical Records Department [address] [place] [address] Progress Note - Hospitalist 09/01/251934 MR#: [id number] Acct: [id number] Name: HEIDI ANDREWS Rep #:[id number] : 1970 55 From: Frantz Gunderson DO PCP: Dr. Red Perez MD Status:ADM I N [place] [facility] SG037-4 Reason for Visit Chief Complaint: Syncope, right [...] 08/31/25 14:36 SB (Rec: 08/31/25 14:36 SB [id number]) Nutrition Malnutrition Evidence of Yes Malnutrition Exists [...] 35 minutes Charges/Coding Visit Charges Inpatient E&M: 85167 Subs Hosp L2 09/01/251936 <Electronically signed by Frantz Gunderson DO> Cosigner Signature (if applicable): CC: ~ Signed [facility] Work Phone: 1(354) 232-163110-18-2025 Consult note Author Memo Valdez [facility] Note Date/Time September 01, 2025 5 :56pm [facility] Medical Records Department [address] [place] [address] Consultation - Nephrology 09/01/25 1652 MR#: [id number] Acct: [id number] Name: HEIDI ANDREWS Rep #:[id number] : 1970 55 From: Memo carlton MD PCP: Dr. Red Perez MD Status:ADM I N Location: [place] [address] Assessment & Plan Assessment/Plan (1) JESI (acute [...] increased. currently on IV fluids. no hematuria. 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 Reading Location: [facility] 09/01/25 2408 <Electronically signed by Memo Valdez MD> Cosigner Signature (if applicable): CC: Dr. Red Perez MD~ Signed [facility] Work Phone: 1(163) 283-795910-18-2025 History and physical note Author Frantz [facility] Note Date/Time September 01, 2025 1 :18pm [facility] Medical Records Department [address] [place] [address] H&P Exam - Hospitalist 08/31/25 1849 MR#: [id number] Acct: [id number] Name: HEIDI ANDREWS Rep #:[id number] : 1970 55 From: Frantz Gunderson DO PCP: Dr. Red Perez MD Status:ADM I N [place] [facility] [id number] HPI - General General Date of Admission: 08/31/25 Date of Service: 08/31/25 Chief Complaint: Syncope, right ankle injury HPI Narrative HEIDI ANDREWS, is a 55 F who presents to the emergency room at [facility] after sustaining a syncopal episode at home [...] of metformin with a backdrop of starvation. [facility] Medical History (Updated 08/31/25 @ 13:40 by [...] Unknown History mg/3 mL) subcutaneous pen injector ([employer]) Held on 08/31/25. Instructions: skipped this week [...] Document 08/31/25 14:36 SB (Rec: 08/31/25 14:36 [id number]) Nutrition Malnutrition Evidence of Yes Malnutrition Exists [...] 72.5 H, Lymph % (Auto) 16.0 L, [place]trim % (Auto) 6.7, Eos % (Auto) 3.0, [...] Sl. Cloudy, Urine pH 5.0, Ur Specific Coral 1.025, Urine Protein 100 H, Urine Glucose [...] No acute abnormality is seen. Reading Location: [place] [address] 08/31/25 10:30 IMPRESSION: Cerebral atrophy more pronounced in the anterior frontal lobes bilaterally as well as in the Reading Location: [place] [address] Ankle X-Ray 08/31/25 10:35 IMPRESSION: Nondisplaced oblique fracture of the lateral malleolus as well as avulsion fracture of the posterior malleolus. Mild asymmetry of the ankle mortise as well as soft tissue swelling. Reading Location: [place] [address] Renal Ultrasound 08/31/25 13:05 IMPRESSION: NORMAL RENAL ULTRASOUND. Reading Location: [facility] Assessment & Plan Assessment/Plan (1) JESI (acute kidney injury): PLAN: Plan 1. Acute kidney injury-secondary to dehydration and use of diuretics for hypertension, also due to emesis from Ozempic-patient will be admitted to [facility] 3 and given IV fluids, nephrology will [...] 75 minutes Charges/Coding Visit Charges Inpatient E&M: 53654 Subs Hosp L2 09/01/25 1218 <Electronically signed by Frantz Gunderson DO> Cosigner Signature (if applicable): CC: Dr. Frantz Gunderson DO; Dr. Red Perez MD~ Signed ADDENDUM by Dr. Frantz Gunderson DO on 09/01/25 at 1218 Visit Charges Inpatient E&M: 12074 Init Hosp L3 09/01/258<Electronically signed by Frantz Gunderson DO> Cosigner Signature (if applicable): cc: Dr. Frantz Gunderson DO; Dr. Red Perez MD ~* Signed [facility] Work Phone: 1(173) 196-768810-17-2025 Discharge summary Author Berlin Wilson [facility] Note Date/Time August 31, 2025 5 :35pm [facility] Medical Records Department [address] [place] [address] Emergency Department Summary 08/31/25 MR#: [id number] Acct: [id number] Name: HEIDI ANDREWS Rep #:[id number] : 1970 55 From: Berlin Colon PCP: Dr. Red Perez MD Status:ADM I N Location: [place] [address] HPI History of Present Illness Chief Complaint: [...] uncommon for her since beginning iron supplementation. [facility] Medical History (Updated 08/31/25 @ 13:40 by [...] Unknown History mg/3 mL) subcutaneous pen injector ([employer]) Held on 08/31/25. 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 Neurovascular intact pre and post application. [...] 72.5 H Lymph % (Auto) 16.0 L Antrim % (Auto) 6.7 Eos % (Auto) 3.0 [...] Sl. Cloudy Urine pH 5.0 Ur Specific Coral 1.025 Urine Protein 100 H Urine Glucose [...] (Auto) Neut % (Auto) Lymph % (Auto) Antrim % (Auto) Eos % (Auto) Baso % [...] Color Urine Clarity Urine pH Ur Specific Coral Urine Protein Urine Glucose (UA) Urine Ketones Urine Occult Blood Urine Nitrite Urine Bilirubin Urine Urobilinogen Ur Leukocyte Esterase Urine RBC Urine WBC Ur Squamous Epith Cells Amorphous Sediment Urine Bacteria Urine Mucus Radiography Diagnostic Testing: Clinical Impression(s) from Imaging Studies Chest X-Ray 08/31/25 10:12 IMPRESSION: Stable examination. No acute abnormality is seen. Reading Location: [facility] 08/31/25 10:30 IMPRESSION: Cerebral atrophy more pronounced in the anterior frontal lobes bilaterally as well as in the Reading Location: [facility] Ankle X-Ray 08/31/25 10:35 IMPRESSION: Nondisplaced oblique fracture of the lateral malleolus as well as avulsion fracture of the posterior malleolus. Mild asymmetry of the ankle mortise as well as soft tissue swelling. Reading Location: [facility]-1 EKG Initial EKG: Attestation: I personally reviewed and interpreted this EKG as follows: Comments: Normal sinus rhythm ventricular rate of 72 bpm. Management Discussion w/another healthcare provider: Hospitalist, Transition Nurse (Dr. Prakash (orthopedics)) and Radiologist Discharge Plan Dx/Rx/DC Orders Clinical Impression: Iron deficiency anemia, Syncope, Ankle fracture, right, Hematoma of occipital region of scalp, JESI (acute kidney injury), Acute hyponatremia, Elevated lactic acid level Disposition Disposition: Acute Care Hospital [facility] Discharge Date/Time: 08/31/25 13:17 What to do if you have Problems For any increased pain, shortness of breath, bleeding, nausea or vomiting, chestpain, or any unexpected problems, contact your Primary Care Provider. Call [facility] ([phone]) or report to the closest Emergency Room. Call 911 if necessary. 08/31/25 1635 <Electronically signed by Berlin Wilson DO> Cosigner Signature (if applicable): CC: Dr. Red Perez MD ~ Signed [facility] Work Phone: 1(457) 118-277410-17-2025 Radiology Diagnostic study [facility]10-17-2025 Radiology Diagnostic study [facility]10-17-2025 Radiology Diagnostic study [facility] 08-31-2025 Radiology Diagnostic study [facility]10-17-2025 Radiology Diagnostic study [facility]10-17-2025 Radiology Diagnostic study [facility]10-17-2025 Radiology Diagnostic study [facility]10-17-2025 Radiology Diagnostic study note [facility]10-13-2025 Progress [facility] [place] [address] [place] [address] OFFICE VISIT Date of Service: 08/27/25 1121 MR#: [id number] Acct: [id number] Name: HEIDI ANDREWS Rep #: [id number] : 1970 From: Glen Chapman MD Age/Sex: 55/F Location: [facility] Status: Signed HPI Subjective Date [...] follow up. Feels tired, sleeps a lot. [facility] Medical History Sleep apnea Wears glasses [...] Signature: Date (if applicable) CC: Dr. Red Perze MD ~ [facility]09-29-2025 Radiology Diagnostic study note [facility] Imaging Services [address] [facility] [place] [address] Fluoroscopy 1 Hr or Less MR#: [id number] Acct: [id number] Name: HEIDI ANDREWS Rep #: [id number] : 1970 F 55 From: Tiff Mcfarland MD PCP: Dr. Red Perez MD Status: [facility] Study:Fluoroscopy 1 Hr or Less Date of Exam: 08/13/25 Exam# [id number] Ordering Dr: Nikolai Kim MD PROCEDURE: FLUOROSCOPY [...] excursion suggestive of mild paralysis. Reading Location: [place] [address] CC: Dr. Red Perez MD; Dr. Nikolai Kim MD ~ [employer]: Signed [facility]08-01-2025 Radiology Diagnostic study note [facility] Imaging Services [address] [place] [address] Chest PA and Lateral MR#: [id number] Acct: [id number] Name: HEIDI ANDREWS Rep #: [id number] : 1970 F 55 From: Ricardo Nunn MD PCP: Dr. Red Perez MD Status: REG Roger JAMES Study:Chest PA and Lateral Date of Exam: 06/15/25 Exam# [id number] Ordering Dr: Nikolai Kim MD PROCEDURE: CHEST [...] evidence of acute cardiopulmonary disease. Reading Location: [place] [address] CC: Dr. Red Perez MD; Dr. Nikolai Kim MD ~ [employer]: Signed [facility]07-21-2025 Progress [facility] [address] [place] [address] OFFICE VISIT Date of Service: 06/04/25 1109 MR#: [id number] Acct: [id number] Name: HEIDI ANDREWS Rep #: [id number] : 1970 From: Glen Chapman MD Age/Sex: 55/F Location: [facility] Status: Signed HPI Subjective Date of [...] deficiency. Comes for follow up. Feels better. [facility] Medical History Sleep apnea Wears glasses Thyroid disease Diabetes Anemia Former smoker Diabetes Anxiety Psoriasis Hypothyroid Vitamin D deficiency Hypertriglyceridemia Bipolar disorder, unspecified HTN (hypertension) Surgical History Hx of section Hx of bilateral breast reduction surgery Family History Father Hypertension Diabetes Sister Anxiety MCTD (mixed connective tissue disease) Mother Psoriatic arthritis Social History household members: spouse current occupational status: employed current occupation: [employer] Smoking Status: Former smoker alcohol intake: never [...] needed. 06/04/25 1239 D> Date _ Glen Nix Signature: Date (if applicable) CC: Dr. Red Perez MD ~ [facility]07-21-2025 Evaluation note* Diagnosis Onset Date Resolution Status Admit Date B12 deficiency resolved June 04, 2025 9:55am Hypomagnesemia resolved June 04, 2025 9:55am Iron deficiency anemia inactive Ju 2024 9:55am B12 deficiency resolved August 272024 [...] 12:54pm Syncope inactive August 31, 2025 12:54pm [facility] Work Phone: 1(987) 382-925007-21-2025 Progress note Author Glen Chapman [facility] Note Date/Time June 04, 2025 12:3 9pm [facility] [address] [place] [address] OFFICE VISIT Date of Service: 06/04/25 1109 MR#: [id number] Acct: [id number] Name: HEIDI ANDREWS Rep #: [id number] : 1970 From: Glen Chapman MD Age/Sex: 55/F Location: [facility] Status: Signed HPI Subjective Date [...] deficiency. Comes for follow up. Feels better. [facility] Medical History Sleep apnea Wears glasses [...] applicable) CC: Dr. Red Perez MD ~ [place] [employer] Work Phone: 1(590) 407-997306-23-2025 Evaluation note* Diagnosis Onset Date Resolution Status Admit Date B12 deficiency chronic May 07, 2025 7:45am Iron deficiency anemia chronic Ju ne 2024 7:45am Hypomagnesemia resolved May 07, 2025 7:45am B12 deficiency chronic June 04, 2025 9:55am Iron deficiency anemia chronic Ju ly 2024 9:55am Hypomagnesemia resolved June 04, 2025 9:55am [facility] Work Phone: 1(159) 472-831204-24-2025 Evaluation note* Diagnosis Onset Date Resolution Status Admit Date Iron deficiency anemia acute Ap ril 2024 8:14am Anemia noneactive March 08 8:14am [facility] Work Phone: 1(290) 380-632004-24-2025 Evaluation note* Diagnosis Onset Date Resolution Status Admit Date Iron deficiency anemia chronic Ap ril 2024 8:14am Anemia noneactive March 08 8:14am B12 deficiency acute May 07, 2025 7:45am Hypomagnesemia acute May 07, 2025 7:45am Iron deficiency anemia chronic Ju ne 2024 7:45am [facility] Work Phone: 1([phone]) 549-536904-24-2025 Evaluation note* Diagnosis Onset Date Resolution Status [...] 9:55am Hypomagnesemia resolved June 04, 2025 9:55am [facility] Work Phone: 1(931) 388-340603-25-2024 NotePap Smear Specimen AdequacyMarch 2023 9:00amComment.Satisfactory for evaluation. Endocervical and/or squamous metaplasticcells (endocervical component)are present.[facility] A#[id number] Deaconess HospitalComment on above:Satisfactory for evaluation. Endocervical and/or squamous metaplasticcells (endocervical component)are present.12-01-2022 Procedure [facility] 12-01-2022 Procedure [facility] Hospital[facility]ult note Author Memo Valdez [facility] Note Date/Time September 01, 2025 4 :56pm [facility] Medical Records Department [address] [place] [address] Consultation - Nephrology 09/01/25 1652 MR#: [id number] Acct: [id number] Name: HEIDI ANDREWS Rep #:[id number] : 1970 55 From: Memo carlton MD PCP: Dr. Red Perez MD Status:ADM I N Location: [address] Assessment & Plan Assessment/Plan (1) JESI (acute [...] increased. currently on IV fluids. no hematuria. [facility] Medical History (Updated 08/31/25 @ 13:40 by [...] spouse current occupational status: employed current occupation: [employer] Smoking Status: Former smoker alcohol intake: never [...] 08/31/25 14:36 SB (Rec: 08/31/25 14:36 SB [id number]) Nutrition Malnutrition Evidence of Yes Malnutrition Exists [...] 13:05 IMPRESSION: NORMAL RENAL ULTRASOUND. Reading Location: [facility] 09/01/25 0507 <Electronically signed by Memo Valdez MD> Cosigner Signature (if applicable): CC: Dr. Red Perez MD~ Signed [facility] Work Phone: Consult note Author Channing Parker [facility] Note Date/Time September 03, 2025 1 :56pm [facility] Medical Records Department [address] [place] [address] Counseling Note - Pharmacy 09/03/25 1355 MR#: [id number] Acct: [id number] Name: HEIDI ANDREWS Rep #:[id number] : 1970 55 From: Channing Parker PCP: Dr. Red Perez MD Status:ADM I N Y [facility] Counseling Pharmacy Service has performed discharge medication [...] Signature (if applicable): Date CC: ~ Signed [facility] Work Phone: Discharge summary Author Berlin Wilson [facility] Note Date/Time August 31, 2025 4 :35pm [facility] Medical Records Department [address] [place] [address] Emergency Department Summary 08/31/25 MR#: [id number] Acct: [id number] Name: HEIDI ANDREWS Rep #:[id number] : 1970 55 From: Berlin Colon PCP: Dr. Red Perez MD Status:ADM I N Location[place] [facility] [id number] HPI History of Present Illness Chief Complaint: [...] uncommon for her since beginning iron supplementation. [facility] Medical History (Updated 08/31/25 @ 13:40 by [...] Unknown History mg/3 mL) subcutaneous pen injector ([employer]) Held on 08/31/25. Instructions: skipped this week [...] spouse current occupational status: employed current occupation: [employer] Smoking Status: Former smoker alcohol intake: never [...] a posterior stirrup well-padded [facility]. Neurovascular intact pre and post application. [...] 72.5 H Lymph % (Auto) 16.0 L [place] % (Auto) 6.7 Eos % (Auto) 3.0 [...] Sl. Cloudy Urine pH 5.0 Ur Specific Coral 1.025 Urine Protein 100 H Urine Glucose [...] (Auto) Neut % (Auto) Lymph % (Auto) [place]trim % (Auto) Eos % (Auto) Baso % [...] Color Urine Clarity Urine pH Ur Specific Coral Urine Protein Urine Glucose (UA) Urine Ketones Urine Occult Blood Urine Nitrite Urine Bilirubin Urine Urobilinogen Ur Leukocyte Esterase Urine RBC Urine WBC Ur Squamous Epith Cells Amorphous Sediment Urine Bacteria Urine Mucus Radiography Diagnostic Testing: Clinical Impression(s) from Imaging Studies Chest X-Ray 08/31/25 10:12 IMPRESSION: Stable examination. No acute abnormality is seen. Reading Location: [facility] 08/31/25 10:30 IMPRESSION: Cerebral atrophy more pronounced in the anterior frontal lobes bilaterally as well as in the Reading Location: [facility] Ankle X-Ray 08/31/25 10:35 IMPRESSION: Nondisplaced oblique fracture of the lateral malleolus as well as avulsion fracture of the posterior malleolus. Mild asymmetry of the ankle mortise as well as soft tissue swelling. Reading Location: [facility] EKG Initial EKG: Attestation: I personally reviewed and interpreted this EKG as follows: Comments: Normal sinus rhythm ventricular rate of 72 bpm. Management Discussion w/another healthcare provider: Hospitalist, Transition Nurse (Dr. Prakash (orthopedics)) and Radiologist Discharge Plan Dx/Rx/DC Orders Clinical Impression: Iron deficiency anemia, Syncope, Ankle fracture, right, Hematoma of occipital region of scalp, JESI (acute kidney injury), Acute hyponatremia, Elevated lactic acid level Disposition Disposition: Acute Care Hospital [facility] Discharge Date/Time: 08/31/25 13:17 What to do if you have Problems For any increased pain, shortness of breath, bleeding, nausea or vomiting, chestpain, or any unexpected problems, contact your Primary Care Provider. Call [facility] ([phone]) or report to the closest Emergency Room. Call 911 if necessary. 08/31/25 1635 <Electronically signed by Berlin Wilson DO> Cosigner Signature (if applicable): CC: Dr. Red Perez MD ~ Signed [facility] Work Phone: Discharge summary Author Frantz Gunderson [facility] Note Date/Time September 02, 2025 1 2:24pm [facility] Medical Records Department [address] [place] [address] Instructions for Home/Discharge Instructions 09/02/25 1217 MR#: [id number] Acct: [id number] Name: HEIDI ANDREWS Rep #:[id number] : 1970 55 From: Frantz Gunderson DO [...] MD; Dr. Red Perez MD ~ Signed [facility] Work Phone: Discharge summary Author Jacques Muñoz [facility] Note Date/Time September 03, 2025 1 :02pm [facility] Medical Records Department [address] [place] [address] Instructions for Home/Discharge Instructions 09/03/25 1228 MR#: [id number] Acct: [id number] Name: HEIDI ANDREWS Rep #:[id number] : 1970 55 From: Jacques hernandez DO [...] Provider: Red Perez Consulting Providers: Memo Valdez; Tereletsky,Frantz Instructions Additional Instructions / Restrictions: Please take [...] Profile (BMP) (Routine) Timeframe: 3 Days Facility: [facility] - Location: Laboratory Ordered By: Dr. Jacques [...] DO; Dr. Red Perez MD ~ Signed [facility] Work Phone: Discharge summary Author [facility] Note Date/Time September 03, 2025 3 :34pm [facility] Medical Records Department [address] [place] [address] Discharge Summary 09/03/25 1229 MR#: [id number] Acct: [id number] Name: HEIDI ANDREWS Rep #:[id number] : 1970 55 From: Jacques hernandez DO PCP: Dr. Red Perez MD Status:DIS I N Location: [place] [address] Providers Date of Admission: 08/31/25 Date of [...] tablet 5 mg PO BID bladder 04/21/25 fluoxetine 20 mg capsule (Prozac) 60 mg [...] is a 55-year-old female who presented to [facility] ED on 08/31/2025 with syncope and right [...] 08/31/25 14:36 SB (Rec: 08/31/25 14:36 SB [id number]) Nutrition Malnutrition Evidence of Yes Malnutrition Exists [...] Profile (BMP) (Routine) Timeframe: 3 Days Facility: [facility] - Location: Laboratory Ordered By: Dr. Jacques [...] Self Care Charges/Coding Visit Charges Inpatient E&M: 72013 Disch Hosp >30min 09/06/25 1040 <Electronically signed by Jacques Muñoz DO> Cosigner Signature (if applicable): CC: Dr. Jacques Muñoz DO; Dr. Red Perez MD~ Signed [facility] Work Phone: Evaluation noteNo assessment information available [facility] Work Phone: Evaluation note* Diagnosis Onset Date Resolution Status Encounter for screening for malignant neoplasm of colo n acute [facility] Work Phone: History and physical note Author Dr. Marie [facility] December 01, 2022 10:07am Note Date/Time December 01, 2022 1 0:07am [facility] Medical Records Department [address] [place] [address] History & Physical Exam 12/01/22 1005 MR#: [id number] Acct: [id number] Name: HEIDI ANDREWS Rep #:[id number] : 1970 52 From: Lamine gracia MD PCP: Dr. Red Perez MD Status:REG S DC Location: [place] [address] HPI - General HPI Narrative HEIDI ANDREWS, is a 52 F who presents for screening colonoscopy. Patient reports no blood in the stool or abdominal pain. She has never had a colonoscopy in the past. No family history of colon cancer. [facility] Medical History Anemia Anxiety Bipolar disorder, [...] 09:05) Discharge Is Pt Admitted From a [facility], or a Prison: No Who Could Help: After D/C, Where [...] proceed with procedure. Lamine Marie MD Pager: [facility] [address] [place], [place] [address], [address] [place] [address] Office: Surgery Risks - Colonoscopy Risks Include but are not Limited To: Risks include but are not limited to: Bleeding, perforation requiring further surgery, inability to complete colonoscopy requiring barium enema. 12/01/22 1007 <Electronically signed by Lamine Marie MD> Cosigner Signature (if applicable): CC: Dr. Lamine Marie MD; Dr. Red Perez MD~ Signed [facility] Work Phone: History and physical note Author [facility] Note Date/Time September 01, 2025 1 2:18pm [facility] Medical Records Department [address] [place] [id number] H&P Exam - Hospitalist 08/31/25 1849 MR#: [id number] Acct: [id number] Name: HEIDI ANDREWS Rep #:[id number] : 1970 55 From: Frantz Gunderson DO PCP: Dr. Red ePrez MD Status:ADM I N Location: [place] [address] HPI - General General Date of Admission: 08/31/25 Date of Service: 08/31/25 Chief Complaint: Syncope, right ankle injury HPI Narrative HEIDI ANDREWS, is a 55 F who presents to the emergency room at [facility] after sustaining a syncopal episode at home [...] of metformin with a backdrop of starvation. [facility] Medical History (Updated 08/31/25 @ 13:40 by [...] Unknown History mg/3 mL) subcutaneous pen injector ([employer]) Held on 08/31/25. 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 Cloudy, Urine pH 5.0, Ur Specific Coral 1.025, Urine Protein 100 H, Urine Glucose [...] No acute abnormality is seen. Reading Location: [facility] 08/31/25 10:30 IMPRESSION: Cerebral atrophy more pronounced in the anterior frontal lobes bilaterally as well as in the Reading Location: [facility] Ankle X-Ray 08/31/25 10:35 IMPRESSION: Nondisplaced oblique fracture of the lateral malleolus as well as avulsion fracture of the posterior malleolus. Mild asymmetry of the ankle mortise as well as soft tissue swelling. Reading Location: [facility] Renal Ultrasound 08/31/25 13:05 IMPRESSION: NORMAL RENAL ULTRASOUND. Reading Location: [facility] Assessment & Plan Assessment/Plan (1) JESI (acute kidney injury): PLAN: Plan 1. Acute kidney injury-secondary to dehydration and use of diuretics for hypertension, also due to emesis from Ozempic-patient will be admitted to [place] [address] and given IV fluids, nephrology will be [...] 75 minutes Charges/Coding Visit Charges Inpatient E&M: 23791 Subs Hosp L2 09/01/25 1218 <Electronically signed by Frantz Gunderson DO> Cosigner Signature (if applicable): CC: Dr. Frantz Gunderson DO; Dr. Red Perez MD~ Signed ADDENDUM by Dr. Frantz Gunderson DO on 09/01/25 at 1218 Visit Charges Inpatient E&M: 47424 Init Hosp L3 09/01/25 1218<Electronically signed by Frantz Gunderson DO> Cosigner Signature (if applicable): cc: Dr. Frantz Gunderson DO; Dr. Red Perez MD ~* Signed [facility] Work Phone: Hospital Discharge instructionsAdditional Instructions Please [...] 1 to 2 weeks. [facility]: [facility] Work Phone: Progress note Author Glen Chapman [facility] Note Date/Time August 27, 2025 1 2:38pm [facility] [address] [place] [address] OFFICE VISIT Date of Service: 08/27/25 1121 MR#: [id number] Acct: [id number] Name: HEIDI ANDREWS Rep #: [id number] : 1970 From: Glen Chapman MD Age/Sex: 55/F Location: [facility] Status: Signed HPI Subjective Date [...] follow up. Feels tired, sleeps a lot. [facility] Medical History Sleep apnea Wears glasses Thyroid disease Diabetes Anemia Former smoker Diabetes Anxiety Psoriasis Hypothyroid Vitamin D deficiency Hypertriglyceridemia Bipolar disorder, unspecified HTN (hypertension) Surgical History Hx of section Hx of bilateral breast reduction surgery Family History Father Hypertension Diabetes Sister Anxiety MCTD (mixed connective tissue disease) Mother Psoriatic arthritis Social History household members: spouse current occupational status: employed current occupation: [employer] Smoking Status: Former smoker alcohol intake: never [...] Plan Details Follow Up: 2 Weeks 08/29/25 6382 <Electronically signed by Glen Bowling> Date _ Glen Chapman MD Cosigner Signature: Date (if applicable) CC: Dr. Red Perez MD ~ [facility] Work Phone: Progress note Author Frantz Gunderson [facility] Note Date/Time September 01, 2025 7 :37pm [facility] Medical Records Department [address] [place] [address] Progress Note - Hospitalist 09/01/251934 MR#: [id number] Acct: [id number] Name: HEIDI ANDREWS Rep #:[id number] : 1970 55 From: Frantz Gunderson DO PCP: Dr. Red Perez MD Status:ADM I N Location: [place] [id number] Reason for Visit Chief Complaint: Syncope, right [...] 08/31/25 14:36 SB (Rec: 08/31/25 14:36 SB [id number]) Nutrition Malnutrition Evidence of Yes Malnutrition Exists [...] 35 minutes Charges/Coding Visit Charges Inpatient E&M: 35122 Subs Hosp L2 09/01/251936 <Electronically signed by Frantz Gunderson DO> Cosigner Signature (if applicable): CC: ~ Signed [facility] Work Phone: Progress note Author [facility] Note Date/Time September 02, 2025 1 2:43pm [facility] Medical Records Department [address] [place] [address] Progress Note - Hospitalist 09/02/25 1230 MR#: [id number] Acct: [id number] Name: HEIDI ANDREWS Rep #:[id number] : 1970 55 From: Frantz Gunderson DO PCP: Dr. Red Perez MD Status:ADM I N Location: [place] [address] Reason for Visit Chief Complaint: Syncope, right [...] 08/31/25 14:36 SB (Rec: 08/31/25 14:36 SB [id number]) Nutrition Malnutrition Evidence of Yes Malnutrition Exists [...] 35 minutes Charges/Coding Visit Charges Inpatient E&M: 92739 Subs Hosp L2 09/02/25 1243 <Electronically signed by Frantz Gunderson DO> Cosigner Signature (if applicable): CC: ~ Signed [facility] Work Phone: Reason for referral (narrative)No reason for referral information available[facility] Work Phone: Chief Complaint and Reason for [...] 2:29pm EORDER- BMP/ PRE-OP SURGERY LABS A1C Aug peg2024 11:11am Reason for Visit Admit Date B12 [...] Will No November 25 8:38am Power of [employer]otive [employer] Salesperson No November 25, 2022 8:38am Advance Directive Response Recorded Date/ Time Living Will No November 25 9:38am Power of Automotive [employer] Salesperson No November 25, 2022 9:38am Advance Directive Response Recorded Date/ Time Do you have a Healthcare Power of Automotive Parts Salesperson? No August 31, 2025 1:27pm Advance Directive Response Recorded Date/ Time Do you have a Healthcare Power of [employer]otive Parts Salesperson? No August 31, 2025 12:27pm Summary Purpose [...] Perez MD Primary Care Provider Active Cristy David [...] Provider Active Start: April 17, 2025 Dr. Rde Perez MD Referring Provider Active Start: April [...] March 01, 2025 End: March 01, 2025 ROSETTAMAGALI JOHNSONLONIVERNA Other Provider Active Start: March 01, 2025 [...] Start: September 01, 2025 Dr. Berlin Wilson DO Emergency Departm ent Physician Active Start: September 01, 2025 Dr. Frantz Gunderson DO Admitting physician Active Start: September 01, 2025 Dr. Frantz Gunderson DO Attending physician Active Start: September 01, 2025 Dr. Frantz Gunderson DO Nurse Practitioner Active Start: September 01, 2025 Dr. Memo Valdez MD Nurse Practitioner Active Start: September 01, 2025 Team Status: Active Member Role/Relationship Status Dates Dr. Red Perez MD Primary care physician Active Start: September 02, 2025 Dr. Berlin Wilson DO Emergency Departm [...] September 03, 2025 Dr. Jacques Muñoz DO Nurse Practitioner Active Start: September 03, 2025 Team Status: Active Member Role/Relationship Status Dates Dr. Red Perez MD Primary care physician Active Start: September 07, 2025 Dr. Red Perez MD Nurse Practitioner Active Start: September 07, 2025 Cynthia SNOW PA Attending physician Active Start: September 07, 2025 Cynthia SNOW PA Referring Provider Active Start: September 07, 2025 Dr. Jacques Muñoz DO Nurse Practitioner Active Start: September 07, 2025 Team Status: Inactive Member Role/Relationship Status Dates Dr. Red Perez MD Primary care physician Active Start: September 07, 2025 End: September 07, 2025 Dr. Red Perez MD Nurse Practitioner Active Start: September 07, 2025 End: September 07, 2025 Cynthia SNOW PA Attending physician Active Start: September 07, 2025 End: September 07, 2025 Cynthia SNOW PA Referring Provider Active Start: September 07, 2025 [...] section and content) DATE CREATED AUTHOR 09/19/2025 [facility] DATE CREATED AUTHOR AUTHOR'S KANA DAVIS 09/24/2025 [facility] FOR RECORDS PERTAINING TO PATIENTS WHO ARE [...] BE BASED ON THE PRIMARY CLINICAL RECORDS. [employer] provides no warranty or guarantee of the accuracy or completeness of information in this document.
[2025-10-20 10:47] LABS: CRP 14.60 mg/L (0.0-3.0)
[2025-10-22 13:08] LABS: Anti-Chromatin <0.2 AI (0.0-0.9); Anti-Jo <0.2 AI (0.0-0.9); Anti-dsDNA Ab <1 IU/mL (0-9); Anti-ribosomal P Antibodies <0.2 AI (0.0-0.9); SJOGREN'S Anti-SS-A test 1.4 AI (0.0-0.9); SJOGREN'S Anti-SS-B test < 0.2 AI (0.0-0.9); Smith/RNP Ab 0.2 AI (0.0-0.9)
[2025-10-22 15:08] LABS: Immunoglobulin A 55 mg/dL (87-352)
== END | disposition home or self-care (01) ==
LOC: LAB 09:52
PROVIDERS: PCP Family Medicine; Referring Provider Internal Medicine Gastroenterology; Visit Provider Internal Medicine Gastroenterology
DX: R76.0 Raised antibody titer (principal)
CPT/HCPCS: 36415; 82784; 83516; 86140; 86225; 86235; 86255

== ENCOUNTER 2025-11-09 18:52 | Emergency (ER) | payer OTHER, SELFPAY ==
[2025-11-09 18:53] VITALS: BP 144/85; PULSE 89; RESP 22; TEMP 36.1; O2SAT 98
--- NOTE | 2025-11-09 19:02 | RAD_ITS ---
PROCEDURE: FOOT MIN 3 VIEWS 11/09/2025 REASON FOR EXAM: FALL TECHNIQUE: Procedure Code: RADFO Modality: DX Procedure: FOOT MIN 3 VIEWS FINDINGS: Three views of the right foot demonstrate internal fixation of distal tibia and fibula. Osteopenia. No acute fracture or dislocation RAD/Foot min 3 Views IMPRESSION: No acute fracture Reading [facility]
[2025-11-09 20:12] VITALS: BMI 36.7
--- NOTE | 2025-11-09 20:13 | EX.ED.GENINJ ---
HPI History of Present Illness Chief Complaint: Fall Detail of Chief Complaint: Injury to her 2nd, 3rd and 4th right toe due to blunt trauma Informant: patient Onset/Context/Timing Onset: Today Mechanism/Context: Blunt Injury Location of pain/injuries: Right foot Quality of Pain: Dull Location: 2nd, 3rd and 4th toe Current Severity: Mild Maximum Severity: Moderate Worsened by: Weightbearing and palpation Relieved by: Nothing Associated Symptoms Associated Symptoms: Negative for Parasthesias, Weakness, Loss of function or Inability to ambulate Narrative Narrative: Patient is a 55-year-old woman. She had open reduction internal fixation of bimalleolar fracture of her right ankle approximately 2 months ago. She presents with injury to her right 2nd, 3rd and 4th toe due to blunt injury. She is complaining of pain and some discoloration. She has no other complaints. Prior similar symptoms: Yes Recent Illness/[facility] Medical History Elevated lactic acid level Acute hyponatremia JESI (acute kidney injury) Hematoma of occipital region of scalp Ankle fracture, right Syncope Iron deficiency anemia BiPAP (biphasic positive airway pressure) dependence Asthma Irregular heart beat Sleep apnea Wears glasses Thyroid disease Diabetes Anemia Former smoker Diabetes Anxiety Psoriasis Hypothyroid Vitamin D deficiency Hypertriglyceridemia Bipolar disorder, unspecified HTN (hypertension) Home Medications ?Medication ?Instructions ?Recorded ?Last Taken ?Type gemfibrozil 600 mg tablet 600 mg PO BID high blood pressu 11/10/22 08/31/25 08:00 History lamotrigine 150 mg tablet 150 mg PO BID high blood pressure 11/10/22 08/31/25 08:00 History levothyroxine 88 mcg tablet 88 mcg PO DAILY hypo thyroid 11/10/22 08/31/25 06:00 History (Levoxyl) oxybutynin chloride 5 mg tablet 5 mg PO BID bladder 03/05/25 Unknown History fluoxetine 20 mg capsule (Prozac) 60 mg PO DAILY bipolar 03/08/25 08/31/25 08:00 History folic acid 1 mg tablet 1 mg PO QDAY supplement #90 tabs 05/07/25 08/31/25 08:00 Rx mecobalamin (vitamin B12) 1,000 1,000 mcg PO QDAY supplement #90 05/07/25 08/31/25 08:00 Rx mcg chewable tablet tabs magnesium oxide 400 mg PO QDAY supplement #30 caps 06/01/25 08/31/25 08:00 Rx risperidone 1 mg tablet 1.5 mg PO QHS rls 06/04/25 08/30/25 22:48 History fluticasone furoate 200 1 ea inhalation Q24H asthma 08/31/25 08/30/25 08:00 History mcg-vilanterol 25 mcg/dose inhalation powder ondansetron HCl 4 mg tablet 4 mg PO TID PRN nausea 08/31/25 Unknown History metformin 1,000 mg tablet,extended 1,000 mg PO BID 30 days #60 tabs 09/03/25 Unknown Rx release 24hr (osmotic) (Fortamet) metoprolol succinate 50 mg 50 mg PO DAILY #30 tabs 09/03/25 Unknown Rx tablet,extended release 24 hr (Toprol XL) valsartan 80 mg tablet 80 mg PO DAILY 30 days #30 tabs 09/03/25 Unknown Rx Allergy/AdvReac Type Severity Reaction Status Date / Time No Known Allergies Allergy Verified 11/09/25 18:54 Family History Father Hypertension Diabetes Sister Anxiety MCTD (mixed connective tissue disease) Mother Psoriatic arthritis Surgical History Hx of section Hx of bilateral breast reduction surgery Social History household members: spouse current occupational status: employed 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 [employer] Smoking Status: Former smoker alcohol intake: never substance use type: does not use ROS ROS ED Constitutional Constitutional ED: Denies chills, fever(s) or subjective Musculoskeletal Musculoskeletal: Denies arthralgias, back pain, myalgias or neck pain Integumentary Reports other Details: Bruising of the 2nd and 3rd right toe ; Denies rash Neurologic Neurologic: Denies paresthesias or weakness Endocrine Endocrinology: Denies cold intolerance or heat intolerance Hematologic/Lymphatic Hematologic/Lymphatic: Denies easy bleeding or easy bruising EXAM Physical Exam Const Vital Signs: 11/09/25 18:53 11/09/25 20:12 Temperature 96.9 F L Temperature Source Temporal Pulse Rate 89 Respiratory Rate 22 H Respiratory Effort Normal Respiratory Depth Normal Respiratory Pattern Normal Blood Pressure 144/85 H Blood Pressure Mean 104 Pulse Ox 98 Oxygen Delivery Method Room Air Room Air Positive well nourished and well developed General Appearance ED: well developed and NAD HEENT atraumatic Eyes PERRL and EOMs intact bilaterally Resp normal respiratory effort Cardio regular rhythm Rate: regular rate Extremity full ROM; Negative for normal to inspection General Extremety ED: Negative for deformity or edema General Extremity: Negative for deformity or edema Neuro oriented x3, CN's II-XII intact bilaterally and moves all extremities Psych mental status grossly normal and thought process normal Skin Skin Narrative: Bruising 2nd and 3rd toe MDM MDM MDM Narrative Medical decision making narrative: X-ray was obtained to evaluate for contusion versus fracture. Radiography Chest X-Ray - ED: Read by ED Physician (Three-view x-ray of the right foot reveals osteopenia. Hardware from prior bimalleolar fracture. There is no evidence of fracture of the toes or metatarsal bones per my review. 2012) Discharge Plan Triage Chief Complaint: Fall ED Provider: Sammy Holguin Dx/Rx/DC Orders Clinical Impression: Contusion of second toe of right foot, Contusion of third toe of right foot, Contusion of fourth toe of right foot, Iron deficiency anemia, Type 2 diabetes mellitus, PAD (peripheral artery disease) Instructions: ED Finger or Toe Contusion Prescriptions: No Action levothyroxine [Levoxyl] 88 mcg tablet 88 mcg PO DAILY gemfibrozil 600 mg tablet 600 mg PO BID lamotrigine 150 mg tablet 150 mg PO BID fluoxetine [Prozac] 20 mg capsule 60 mg PO DAILY oxybutynin chloride 5 mg tablet 5 mg PO BID folic acid 1 mg tablet 1 mg PO QDAY Qty: 90 0RF mecobalamin (vitamin B12) 1,000 mcg tablet,chewable 1,000 mcg PO QDAY Qty: 90 0RF risperidone 1 mg tablet 1.5 mg PO QHS ondansetron HCl 4 mg tablet 4 mg PO TID PRN (Reason: nausea) fluticasone furoate-vilanterol 200-25 mcg/dose blister with device 1 ea INHALATION Q24H metoprolol succinate [Toprol XL] 50 mg tablet extended release 24 hr 50 mg PO DAILY Qty: 30 2RF metformin [Fortamet] 1,000 mg tablet extended release 24hr 1,000 mg PO BID 30 Days Qty: 60 2RF valsartan 80 mg tablet 80 mg PO DAILY 30 Days Qty: 30 0RF magnesium oxide 400 mg magnesium capsule 400 mg PO QDAY Qty: 30 2RF Primary Care Provider: Red Perez Referrals: Red Perez MD [Primary Care Provider, Family Practice] - 1 Week if not improving Activity Restrictions/Additional Instructions: 1. Apply ice to your toes 6-8 times a day. 2. You may take Tylenol or ibuprofen for your pain. Print Language: Micronesian Disposition Disposition: Home, Self Care
[2025-11-09 20:18] VITALS: BP 139/95; PULSE 85; RESP 17; TEMP 36.1; O2SAT 94
--- OUTSIDE RECORDS SUMMARY | 2025-11-09 20:27 | XMS RPT_ITS | CCD ---
Author Organization [facility] Care Team Providers Care Advertising Statistical Clerk Name Role Phone Dr. Red Perez Primary Care Provider Cristy Hernandez Attending Provider Unavailable Dr. Red Perez Referring Provider Dr. Lamine Marie Attending Provider Dr. Lamine Marei Other Provider Ana JARAMILLO, Dr. Moon Primary [...] Berlin Wilson DO Emergency Department Physi gabri[facility] Daytondano SHANE, Dr. Landry Admitting Physician Jalyn SHANE, [...] Berlin Wilson DO Emergency Department [facility] Dr. Landry Admitting Physician Jalyn SHANE, Dr. Landry Nurse Practitioner José Miguel JARAMILLO, Dr. Hampton Nurse Practitioner Toni SHANE, Dr. Hanna Attending Physician Jalyn SHANE, Dr. Landry Attending Physician [phone] Toni SHANE, Dr. Hanna Nurse Practitioner Ana JARAMILLO, Dr. Moon Nurse Practitioner Cynthia Tom Attending Physician [phone] Cynthia Tom Referring Provider John Damian Attending [...] Care Unavailable Perez, Red Primary Care Unavailable Cnythia Tom Attending Unavailable Cynthia Tom Referring Unavailable [...] Care Unavailable Perez, Red Primary Care Unavailable [facility] Enrique OSCAR Attending Unavailable Perez, Red Referring [...] Elastographyo n 09-24-2025 ABD Limited w/ Elastography [facility] Imaging Services [address] [place], [place] [id number] ABD Limited w/ Elastography MR#: [id number] Acct: [id number] Name: HEIDI ANDREWS Rep #: [id number] : 1970 F 55 From: Russ davila MD PCP: Dr. Red Perez MD Status: [facility] CLI Study: ABD Limited w/ Elastography Date of Exam: 09/15 Exam# [id number] Ordering Dr: Glen Chapman MD PROCEDURE: ABD [...] measurement may be in question. Reading Location: [place] [address] CC: Dr. Geln Chapman MD; Dr. Red Perez MD Master Control Supervisor: Signed Normal [facility] OPERATIVE PROCEDURESon 09-18 OPERATIVE PROCEDURES [facility] OPERATIVE REPORT NAME ACCOUNT SEX AGE ADMIT DISCHARGE PT MED. RECORD# NUMBER DATE DATE TYPE DARRYL [id number] F 55 09/11/25 09/11/25 2 HEIDI Hernandez [id number] ROOM: [facility] DATE OF : 1970 DICTATING PHYSICIAN: Jem Javier DATE OF SURGERY: September 11, 2025 SURGEON: Jem Javier MD HAND EDGE BANDER: Cynthia Ruiz PA-C ANESTHESIOLOGIST: Rigo Remy DO [...] the syndesmosis there was nice stability noted. registered sales assistant/physician title i assistant was helping throughout the entire procedure. [...] wound closure, and patient transfer. Without the regional vice president surgical sales and her expertise, surgical time would have [...] was reduced with the help of the title i assistant, who was pulling traction on the [...] between t (more content not included)... Normal [facility] Absolute lymphocyte countOrd ered By: Red Perez on 09-14-2025 Lymphocytes Auto (Unsp spec) [#/Vol] 0.79 10*3/uL Low 0.83-4.51 [facility] Automated lymphocyte count a s percentage of total leukocytesOrdered By: Red Perez on 09-14-2025 Lymphocytes/100 WBC Auto (Unsp spec) 15.4 % Low 19-41 [facility] Basophil percentageOrdered B y: Red Perez on 09-14-2025 Basophils/100 WBC (Bld) 0.2 % 0-1 W [facility] [place] Blood polychromasia detectio n by light microscopyOrdered By: Red Perez on 09-14-2025 Polychromasia LM Ql (Bld) 1+ [facility] Blood spherocyte detection b y light microscopyOrdered By: Red Perez on 09-14-2025 Spherocytes LM Ql (Bld) 1+ High W [facility] [place] CBC W/Diff, Automatedon 08-17 Anisocytosis Ql (Bld) 2+ Normal [facility] Comment on above: Performed By: #### L 503.0106, L500.4050, L501.1400, L400.0001, L503.6030, L3000.0800, L100.9950, L3890.6006, L501.5101, L100.0100, L504.2610, L501.5200, L506.0200, L3410.9992, L101.9900, L3100.1350, L3200.1200, L503.6550, L3200.0500, L501.6710 #### [facility] Laboratory [address] [place], [address] POLYCHROMASIA 1+ Normal [facility] Comment on above: Performed By: #### L 503.0106, L500.4050, L501.1400, L400.0001, L503.6030, L3000.0800, L100.9950, L3890.6006, L501.5101, L100.0100, L504.2610, L501.5200, L506.0200, L3410.9992, L101.9900, L3100.1350, L3200.1200, L503.6550, L3200.0500, L501.6710 #### [facility] [address] [place], [place], [address] SPHEROCYTE 1+ Abnormal [facility] Comment on above: Performed By: #### L 503.0106, L500.4050, L501.1400, L400.0001, L503.6030, L3000.0800, L100.9950, L3890.6006, L501.5101, L100.0100, L504.2610, L501.5200, L506.0200, L3410.9992, L101.9900, L3100.1350, L3200.1200, L503.6550, L3200.0500, L501.6710 #### [facility] [address] [place], [place], [id number] Eosinophil percentageOrdered By: Red Perez on 09-14-2025 Eosinophils/100 WBC (Bld) 3.3 % 0-5 [facility] Erythrocyte distribution wid th ratioOrdered By: Red Perez on 09-14-2025 Erythrocyte distribution width (RBC) [Ratio] 21.7 % High 11.6-14.6 [facility] Erythrocyte distribution wid th standard deviationOrdered By: Red Perez on 09-14-2025 Erythrocyte distribution width (RBC) [Ratio] 67.2 fl High 35.1-43.9 [facility] Hematocrit Auto (Bld) [Volum e fraction]Ordered By: Red Perez on 09-14-2025 Hematocrit (Bld) [Volume fraction] 28.0 % Low 37-47 [facility] Hemoglobin measurementOrdere d By: Red Perez on 09-14-2025 Hemoglobin (Bld) [Mass/Vol] 8.3 g/dL Low 12.0-15. 0 [facility] Immature granulocytes/100 WB C Auto (Bld)Ordered By: Red Perez on 09-14-2025 Immature granulocytes/100 WBC (Bld) 1.400 % High 0.0-0.9 [facility] MCV (mean corpuscular volume ) determinationOrdered By: Red Perez on 09-14-2025 MCV (RBC) [Entitic vol] 91.2 fL 81-99 W [facility] [place] Mean corpuscular hemoglobin (MCH) determinationOrdered By: Red Perez on 09-14-2025 MCH (RBC) [Entitic mass] 27.0 pg 27.0-32.0 [facility] Monocyte percentageOrdered B y: Red Perez on 09-14-2025 Monocytes/100 WBC (Bld) 5.7 % 0-10 W [facility] Neutrophil percentageOrdered By: Red Perez on 09-14-2025 Neutrophils/100 WBC (Bld) 74.0 % High 47-70 [facility] No Panel InformationOrdered By: Red Perez on 09-14-2025 2+ [facility] Platelet countOrdered By: Edy Perez on 09-14-2025 Platelets (Bld) [#/Vol] 355 10*3/uL 150-450 [facility] RBC Auto (Bld) [#/Vol]Ordere d By: Red Perez on 09-14-2025 RBC (Bld) [#/Vol] 3.07 10*6/uL Low 4.2-5.4 [facility] White blood cell (WBC) count Ordered By: Red Perez on 09-14-2025 WBC (Bld) [#/Vol] 5.1 10*3/uL 4.4-11.0 [facility] C-ARM USAGE 1 HOURon 025 C-ARM USAGE [address] ? [place], [place] [address] ? Patient: HEIDI ANDREWS Phone#: : 1970 Age: 55 Gender: F Pt. Type: Out Account: [id number] Location: [facility] Ordering: JEM JAVIER Exam Date: 09/11/2025/11:51 Family Phys: Charge Code: [id number] Physician: Mcnairy Order #: [id number] Dose#: 3.21 mGy PROCEDURE: C-ARM USEAGE 1 [...] Zamora MD on 09/11/2025 at 16:53 Normal [facility] Anion gap in Serum or Plasma Ordered By: Jacques Muñoz on 09-07-2025 Anion gap [Moles/Vol] 16 mmol/L High 5-15 [facility] BUN/creatinine ratioOrdered By: Jacques Muñoz on 09-07-2025 Urea nitrogen/Creatinine [Mass ratio] 10.4 mg/mg 10- [facility] Basic Metabolic Profile (BMP )on 09-07-2025 BUN/CRE 10.4 RATIO Normal - [facility] Comment on above: Order Comment: DR. Seng COOL ALSO ORDERED BMPBREANNE SARA ORDERED A1C Performed By: #### L 503.0106, L500.4050, L501.1400, L400.0001, L503.6030, L3000.0800, L100.9950, L3890.6006, L501.5101, L100.0100, L504.2610, L501.5200, L506.0200, L3410.9992, L101.9900, L3100.1350, L3200.1200, L503.6550, L3200.0500, L501.6710 #### [facility] [address] [place] [place], [address] Calcium [Mass/Vol] 9.2 mg/dL Normal 7.6-11.0 [facility] Comment on above: Order Comment: DR. Seng COOL ALSO ORDERED BMPBREANNE SARA ORDERED A1C Performed By: #### L 503.0106, L500.4050, L501.1400, L400.0001, L503.6030, L3000.0800, L100.9950, L3890.6006, L501.5101, L100.0100, L504.2610, L501.5200, L506.0200, L3410.9992, L101.9900, L3100.1350, L3200.1200, L503.6550, L3200.0500, L501.6710 #### [facility] [address] [place], [address] Chloride [Moles/Vol] 103 mmol/L Normal 98-108 [facility] Comment on above: Order Comment: DR. Seng COOL ALSO ORDERED BMPBREANNE SARA ORDERED A1C Performed By: #### L 503.0106, L500.4050, L501.1400, L400.0001, L503.6030, L3000.0800, L100.9950, L3890.6006, L501.5101, L100.0100, L504.2610, L501.5200, L506.0200, L3410.9992, L101.9900, L3100.1350, L3200.1200, L503.6550, L3200.0500, L501.6710 #### [facility] [address] [place], [address] CO2 [Moles/Vol] 20.8 mmol/L Low 21.0-32.0 [facility] Comment on above: Order Comment: DR. Seng COOL ALSO ORDERED BMPBREANNE SARA ORDERED A1C Performed By: #### L 503.0106, L500.4050, L501.1400, L400.0001, L503.6030, L3000.0800, L100.9950, L3890.6006, L501.5101, L100.0100, L504.2610, L501.5200, L506.0200, L3410.9992, L101.9900, L3100.1350, L3200.1200, L503.6550, L3200.0500, L501.6710 #### [facility] [address] [place], [address] Creatinine [Mass/Vol] 1.14 mg/dL Normal 0.70-1.20 [facility] Comment on above: Order Comment: DR. Seng COOL ALSO ORDERED BMPBREANNE SARA ORDERED A1C Performed By: #### L 503.0106, L500.4050, L501.1400, L400.0001, L503.6030, L3000.0800, L100.9950, L3890.6006, L501.5101, L100.0100, L504.2610, L501.5200, L506.0200, L3410.9992, L101.9900, L3100.1350, L3200.1200, L503.6550, L3200.0500, L501.6710 #### [facility] [address] [facility] [place], [place], [id number] GAP 16 High 5-15 [facility] Comment on above: Order Comment: DR. Seng COOL ALSO ORDERED BMPBREANNE SARA ORDERED A1C Performed By: #### L 503.0106, L500.4050, L501.1400, L400.0001, L503.6030, L3000.0800, L100.9950, L3890.6006, L501.5101, L100.0100, L504.2610, L501.5200, L506.0200, L3410.9992, L101.9900, L3100.1350, L3200.1200, L503.6550, L3200.0500, L501.6710 #### [facility] [address] [place], [address] GFR/1.73 sq M.predicted among non-blacks MDRD (S/P/Bld) [Vol rate/Area] 58 mL/min/{1.73_m2} Low >60 [facility] Comment on above: Order Comment: DR. Seng COOL ALSO ORDERED BMPBREANNE SARA ORDERED A1C Result Comment: mL/m in/1.73m2 CKD-EPI Creatinine Equation (2020) Performed By: #### L 503.0106, L500.4050, L501.1400, L400.0001, L503.6030, L3000.0800, L100.9950, L3890.6006, L501.5101, L100.0100, L504.2610, L501.5200, L506.0200, L3410.9992, L101.9900, L3100.1350, L3200.1200, L503.6550, L3200.0500, L501.6710 #### [facility] [address] [place], [place], [id number] Glucose [Mass/Vol] 135 mg/dL High 70-99 [facility] Comment on above: Order Comment: DR. Seng COOL ALSO ORDERED BMPBREANNE SARA ORDERED A1C Performed By: #### L 503.0106, L500.4050, L501.1400, L400.0001, L503.6030, L3000.0800, L100.9950, L3890.6006, L501.5101, L100.0100, L504.2610, L501.5200, L506.0200, L3410.9992, L101.9900, L3100.1350, L3200.1200, L503.6550, L3200.0500, L501.6710 #### [facility] [address] [place], [place], [id number] (197) Potassium [Moles/Vol] 4.2 mmol/L Normal 3.3-5.1 [facility] Comment on above: Order Comment: DR. Seng COOL ALSO ORDERED BMPBREANNE SARA ORDERED A1C Performed By: #### L 503.0106, L500.4050, L501.1400, L400.0001, L503.6030, L3000.0800, L100.9950, L3890.6006, L501.5101, L100.0100, L504.2610, L501.5200, L506.0200, L3410.9992, L101.9900, L3100.1350, L3200.1200, L503.6550, L3200.0500, L501.6710 #### [facility] [address] [place], [place], [id number] (802) Sodium [Moles/Vol] 140 mmol/L Normal 133-145 [facility] Comment on above: Order Comment: DR. Seng COOL ALSO ORDERED BMPBREANNE SARA ORDERED A1C Performed By: #### L 503.0106, L500.4050, L501.1400, L400.0001, L503.6030, L3000.0800, L100.9950, L3890.6006, L501.5101, L100.0100, L504.2610, L501.5200, L506.0200, L3410.9992, L101.9900, L3100.1350, L3200.1200, L503.6550, L3200.0500, L501.6710 #### [facility] [address] [place], [place], [address] Urea nitrogen [Mass/Vol] 12 mg/dL Normal 4-19 [facility] Comment on above: Order Comment: DR. Seng COOL ALSO ORDERED DOMINICK RUIZ ORDERED A1C Performed By: #### L 503.0106, L500.4050, L501.1400, L400.0001, L503.6030, L3000.0800, L100.9950, L3890.6006, L501.5101, L100.0100, L504.2610, L501.5200, L506.0200, L3410.9992, L101.9900, L3100.1350, L3200.1200, L503.6550, L3200.0500, L501.6710 #### [facility] [address] [place], [place], [address] Carbon dioxide, total [Moles /volume] in Central venous bloodOrdered By: Jacques Muñoz on 09-07-2025 CO2 [Moles/Vol] 20.8 mmol/L Low 21.0-32.0 [facility] Chloride assayOrdered By: Nicanor Muñoz on 09-07-2025 Chloride [Moles/Vol] 103 mmol/L 98-108 [facility] Glomerular filtration rate ( GFR) estimation/1.73 sq m using serum, plasma, or whole bOrdered By: Jacques Muñoz on 09-07-2025 GFR/1.73 sq M.predicted among non-blacks MDRD (S/P/Bld) [Vol rate/Area] 58 mL/min/{1.73_m2} Low >60 [facility] Comment on above: mL/min/1.73m2 CKD-EP I Creatinine Equation (2020) Hemoglobin A1con 09-07-2025 HbA1c (Bld) [Mass fraction] 7.9 % High <=5.6 [facility] Comment on above: Order Comment: DR. N IELSEN ALSO ORDERED BMPBREANNE SARA ORDERED A1C Result Comment: Norm al < 5.7 % Prediabetic 5.7 - 6.4 % Diabetic >or= 6.5 % Please note range changes. Performed By: #### L 503.0106, L500.4050, L501.1400, L400.0001, L503.6030, L3000.0800, L100.9950, L3890.6006, L501.5101, L100.0100, L504.2610, L501.5200, L506.0200, L3410.9992, L101.9900, L3100.1350, L3200.1200, L503.6550, L3200.0500, L501.6710 #### [facility] [address] [place], [address] Hemoglobin A1c percentageOrd ered By: Jacques Muñoz on 09-07-2025 HbA1c (Bld) [Mass fraction] 7.9 % High <5.7 [facility] Comment on above: Normal < 5.7 % Predi abetic 5.7 - 6.4 % Diabetic >or= 6.5 % Please note range changes. Potassium measurement (mass/ volume)Ordered By: Jacques Muñoz on 09-07-2025 Potassium (Unsp spec) [Mass/Vol] 4.2 mmol/L 3.3-5.1 [facility] Serum creatinine measurement (mass/volume)Ordered By: Jacques Muñoz on 09-07-2025 Creatinine [Mass/Vol] 1.14 mg/dL 0.70-1.20 [facility] Serum glucose measurement (m ass/volume)Ordered By: Jacques Muñoz on 09-07-2025 Glucose [Mass/Vol] 135 mg/dL High 70-99 [facility] Serum or plasma calcium sandy urement (mass/volume)Ordered By: Jacques Muñoz on 09-07-2025 Calcium [Mass/Vol] 9.2 mg/dL 7.6-11.0 [facility] Serum or plasma urea nitroge n measurement (mass/volume)Ordered By: Jacques Muñoz on 09-07-2025 Urea nitrogen [Mass/Vol] 12 mg/dL 4-19 [facility] Sodium levelOrdered By: Misael Muñoz on 09-07-2025 Sodium [Moles/Vol] 140 mmol/L 133-145 [facility] ANCAon 09-04-2025 Atypical pANCA <1:20 Normal Neg:<1:20 [facility] Comment on above: Result Comment: The atypical pANCA pattern has been observed in a significant percentage of patients with ulcerative colitis, primary sclerosing cholangitis and autoimmune hepatitis. Performed By: #### L 503.0106, L500.4050, L501.1400, L400.0001, L503.6030, L3000.0800, L100.9950, L3890.6006, L501.5101, L100.0100, L504.2610, L501.5200, L506.0200, L3410.9992, L101.9900, L3100.1350, L3200.1200, L503.6550, L3200.0500, L501.6710 #### [facility] [address] [place], [address] Cytoplasmic Ab <1:20 Normal Neg:<1:20 [facility] Comment on above: Performed By: #### L 503.0106, L500.4050, L501.1400, L400.0001, L503.6030, L3000.0800, L100.9950, L3890.6006, L501.5101, L100.0100, L504.2610, L501.5200, L506.0200, L3410.9992, L101.9900, L3100.1350, L3200.1200, L503.6550, L3200.0500, L501.6710 #### [facility] [address] [place], [address] Perinuclear Ab. <1:20 Normal Neg:<1:20 [facility] Comment on above: Result Comment: The presence of positive fluorescence exhibiting P-ANCA or C-ANCA patterns alone is not specific for the diagnosis of Lolis's Granulomatosis (WG) or microscopic polyangiitis. Decisions about treatment should not be based solely on ANCA IFA results. The [employer] ANCA [employer] Consensus recommends follow up testing of positive sera with both NH- 3 and MPO-ANCA enzyme immunoassays. As many as 5% serum samples are positive only by EIA. Ref. AM J Clin Pathol 1999;111:507-513. Performed By: #### L 503.0106, L500.4050, L501.1400, L400.0001, L503.6030, L3000.0800, L100.9950, L3890.6006, L501.5101, L100.0100, L504.2610, L501.5200, L506.0200, L3410.9992, L101.9900, L3100.1350, L3200.1200, L503.6550, L3200.0500, L501.6710 #### [facility] [address] [place], [address] Anti-Glomerular Basement Mem bon 09-04-2025 ANTI-GLOM BM Ab < 0.2 Normal 0.0-0.9 [facility] Comment on above: Result Comment: Perf ormed at: [facility] [address] [id number] Optical Lathe Operator: Preston Ashley PhD, Phone: [phone] Performed at: [facility] [address] [id number] Optical Lathe Operator: Lauren Hendricks MD, Phone: [phone] Performed By: #### L 503.0106, L500.4050, L501.1400, L400.0001, L503.6030, L3000.0800, L100.9950, L3890.6006, L501.5101, L100.0100, L504.2610, L501.5200, L506.0200, L3410.9992, L101.9900, L3100.1350, L3200.1200, L503.6550, L3200.0500, L501.6710 #### [facility] [address] [place], [address] Anti-dsDNA Abon 09-04-2025 ANTI-DNA (DS)AB <1 Normal 0-9 [facility] Comment on above: Result Comment: Nega tive <5 Equivocal 5 - 9 Positive >9 Performed at: [address] [id number] Optical Lathe Operator: Preston Ashley PhD, Phone: [phone] Performed By: #### L 503.0106, L500.4050, L501.1400, L400.0001, L503.6030, L3000.0800, L100.9950, L3890.6006, L501.5101, L100.0100, L504.2610, L501.5200, L506.0200, L3410.9992, L101.9900, L3100.1350, L3200.1200, L503.6550, L3200.0500, L501.6710 #### [facility] [address] [place], [place], [address] Complement C3on 09-04-2025 COMP C3 151 mg/dL Normal 82-167 [facility] Comment on above: Performed By: #### L 503.0106, L500.4050, L501.1400, L400.0001, L503.6030, L3000.0800, L100.9950, L3890.6006, L501.5101, L100.0100, L504.2610, L501.5200, L506.0200, L3410.9992, L101.9900, L3100.1350, L3200.1200, L503.6550, L3200.0500, L501.6710 #### [facility] [address] [place], [place], [id number] [place] Lambda Light Chainson 09-04-2025 FR KAPPA LT CHN 20.9 mg/L Abnormal 3.3-19.4 [facility] Comment on above: Performed By: #### L 503.0106, L500.4050, L501.1400, L400.0001, L503.6030, L3000.0800, L100.9950, L3890.6006, L501.5101, L100.0100, L504.2610, L501.5200, L506.0200, L3410.9992, L101.9900, L3100.1350, L3200.1200, L503.6550, L3200.0500, L501.6710 #### [facility] [address] [place], [place], [id number] FR LAMBDA LT CH 15.5 mg/L Normal 5.7-26.3 [facility] Comment on above: Performed By: #### L 503.0106, L500.4050, L501.1400, L400.0001, L503.6030, L3000.0800, L100.9950, L3890.6006, L501.5101, L100.0100, L504.2610, L501.5200, L506.0200, L3410.9992, L101.9900, L3100.1350, L3200.1200, L503.6550, L3200.0500, L501.6710 #### [facility] [address] [place], [address] KAPPA/LAMBDA % 1.35 Normal 0.26-1.65 [facility] Comment on above: Performed By: #### L 503.0106, L500.4050, L501.1400, L400.0001, L503.6030, L3000.0800, L100.9950, L3890.6006, L501.5101, L100.0100, L504.2610, L501.5200, L506.0200, L3410.9992, L101.9900, L3100.1350, L3200.1200, L503.6550, L3200.0500, L501.6710 #### [facility] [address] [place], [place], [address] Anion gap in Serum or Plasma Ordered By: Frantz Gunderson on 09-03-2025 Anion gap [Moles/Vol] 12 mmol/L - [facility] BUN/creatinine ratioOrdered By: Frantz Gunderson on 09-03-2025 Urea nitrogen/Creatinine [Mass ratio] 8.2 mg/mg Low 09-03 [facility] Basic Metabolic Profile (BMP )on 09-03-2025 BUN/CRE 8.2 RATIO Low 09-03 [facility] Comment on above: Performed By: #### L 503.6005 #### [facility] [address] [place], [address] Calcium [Mass/Vol] 8.7 mg/dL Normal 7.6-11.0 [facility] Comment on above: Performed By: #### L 503.6005 #### [facility] [address] [place], [address] Chloride [Moles/Vol] 105 mmol/L Normal 98-108 [facility] Comment on above: Performed By: #### L 503.6005 #### [facility] [address] [place], [address] CO2 [Moles/Vol] 19.3 mmol/L Low 21.0-32.0 [facility] Comment on above: Performed By: #### L 503.6005 #### [facility] [address] [place], [address] Creatinine [Mass/Vol] 1.04 mg/dL Normal 0.70-1.20 [facility] Comment on above: Performed By: #### L 503.6005 #### [facility] [address] [place], [address] ECRCL 72.27 ml/min Normal 50-250 [facility] Comment on above: Performed By: #### L 503.6005 #### [facility] [address] [place], [address] GAP 12 Normal - [facility] Comment on above: Performed By: #### L 503.6005 #### [facility] [address] [place], [address] GFR/1.73 sq M.predicted among non-blacks MDRD (S/P/Bld) [Vol rate/Area] 64 mL/min/{1.73_m2} Normal >60 [facility] Comment on above: Result Comment: mL/m in/1.73m2 CKD-EPI Creatinine Equation (2020) Performed By: #### L [id number] #### [facility] [address] [place], [address] Glucose [Mass/Vol] 116 mg/dL High 70-99 [facility] Comment on above: Performed By: #### L [id number] #### [facility] [address] [place], [address] Potassium [Moles/Vol] 3.3 mmol/L Normal 3.3-5.1 [facility] Comment on above: Performed By: #### L 503.6005 #### [facility] [address] [place], [address] Sodium [Moles/Vol] 137 mmol/L Normal 133-145 [facility] Comment on above: Performed By: #### L 503.6005 #### [facility] [address] [place], [address] Urea nitrogen [Mass/Vol] 8 mg/dL Normal 4-19 [facility] Comment on above: Performed By: #### L 503.6005 #### [facility] [address] [place], [address] Bedside Glucoseon 09-03-2025 FINGERSTICK GLU 140 mg/dL High 74-106 [facility] Comment on above: Result Comment: DARÍO CORNELIO OF PATIENT CARE PER NURSING PROTOCOL Performed By: #### L 503.0106, L500.4050, L501.1400, L400.0001, L503.6030, L3000.0800, L100.9950, L3890.6006, L501.5101, L100.0100, L504.2610, L501.5200, L506.0200, L3410.9992, L101.9900, L3100.1350, L3200.1200, L503.6550, L3200.0500, L501.6710 #### [facility] [address] [place], [place], [id number] FINGERSTICK GLU 110 mg/dL High 74-106 [facility] Comment on above: Result Comment: DARÍO GRIMES OF PATIENT CARE PER NURSING PROTOCOL Performed By: #### L 503.0106, L500.4050, L501.1400, L400.0001, L503.6030, L3000.0800, L100.9950, L3890.6006, L501.5101, L100.0100, L504.2610, L501.5200, L506.0200, L3410.9992, L101.9900, L3100.1350, L3200.1200, L503.6550, L3200.0500, L501.6710 #### [facility] [address] [facility] [address] [place], [place], [address] Carbon dioxide, total [Moles /volume] in Central venous bloodOrdered By: Frantz Gunderson on 09-03-2025 CO2 [Moles/Vol] 19.3 mmol/L Low 21.0-32.0 [facility] Chloride assayOrdered By: Maria Eugenia Gunderson on 09-03-2025 Chloride [Moles/Vol] 105 mmol/L 98-108 [facility] Discharge Instructionon 08-16 Discharge Instruction [facility] Medical Records Department [address] [place] [address] Instructions for Home/Discharge Instructions 09/03/25 1228 MR#: [id number] Acct: [id number] Name: HEIDI ANDREWS Rep #: [id number] : 1970 55 From: Jacques Muñoz DO [...] kidney injury, hyponatremia, starvation ketoacidosis Attending Provider: Jacquse Muñoz Primary Care Provider: Red Perez Consulting [...] Profile (BMP) (Routine) Timeframe: 3 Days Facility: [facility] - Location: Laboratory Ordered By: Dr. Jacques [...] DO; Dr. Red Perez MD Signed Normal [facility] Electrocardiogram reportOrde red By: Caleb Mendiola on 09-03-2025 EKG study [facility] Other Phone: EKG study [facility] Other Phone: Glomerular filtration rate ( GFR) estimation/1.73 sq m using serum, plasma, or whole bOrdered By: Frantz Gunderson on 09-03-2025 GFR/1.73 sq M.predicted among non-blacks MDRD (S/P/Bld) [Vol rate/Area] 64 mL/min/{1.73_m2} >60 [facility] Comment on above: mL/min/1.73m2 CKD-EP I Creatinine Equation (2020) Glucose measurement at bedsi deOrdered By: Jacques Muñoz on 09-03-2025 Glucose [Mass/Vol] 140 mg/dL High 74-106 [facility] Comment on above: MANAGEMENT OF PATIEN T CARE PER NURSING PROTOCOL Potassium measurement (mass/ volume)Ordered By: Frantz Gunderson on 09-03-2025 Potassium (Unsp spec) [Mass/Vol] 3.3 mmol/L 3.3-5.1 [facility] Serum creatinine measurement (mass/volume)Ordered By: Frantz Gunderson on 09-03-2025 Creatinine [Mass/Vol] 1.04 mg/dL 0.70-1.20 [facility] [place] Serum glucose measurement (m ass/volume)Ordered By: Frantz Gunderson on 09-03-2025 Glucose [Mass/Vol] 116 mg/dL High 70-99 [facility] Serum or plasma calcium sandy urement (mass/volume)Ordered By: Frantz Gunderson on 09-03-2025 Calcium [Mass/Vol] 8.7 mg/dL 7.6-11.0 [facility] Serum or plasma urea nitroge n measurement (mass/volume)Ordered By: Frantz Gunderson on 09-03-2025 Urea nitrogen [Mass/Vol] 8 mg/dL 4-19 [facility] Sodium levelOrdered By: Frantz Gunderson on 09-03-2025 Sodium [Moles/Vol] 137 mmol/L 133-145 [facility] ANCAon 09-02-2025 Cytoplasmic Ab Normal Neg:<1:20 [facility] Comment on above: Result Comment: PUTT ING ALL ORDERS (R1,R2,R3,R4,IO1) ON SAME ORDER Performed By: #### L 503.0106, L500.4050, L501.1400, L400.0001, L503.6030, L3000.0800, L100.9950, L3890.6006, L501.5101, L100.0100, L504.2610, L501.5200, L506.0200, L3410.9992, L101.9900, L3100.1350, L3200.1200, L503.6550, L3200.0500, L501.6710 #### [facility] [address] [place], [address] Perinuclear Ab. Normal Neg:<1:20 [facility] Comment on above: Result Comment: PUTT ING ALL ORDERS (R1,R2,R3,R4,IO1) ON SAME ORDER Performed By: #### L 503.0106, L500.4050, L501.1400, L400.0001, L503.6030, L3000.0800, L100.9950, L3890.6006, L501.5101, L100.0100, L504.2610, L501.5200, L506.0200, L3410.9992, L101.9900, L3100.1350, L3200.1200, L503.6550, L3200.0500, L501.6710 #### [facility] [address] [place], [address] Basic Metabolic Profile (BMP )on 09-02-2025 BUN/CRE 16.9 RATIO Normal 09-03 [facility] Comment on above: Performed By: #### L 503.0106, L500.4050, L501.1400, L400.0001, L503.6030, L3000.0800, L100.9950, L3890.6006, L501.5101, L100.0100, L504.2610, L501.5200, L506.0200, L3410.9992, L101.9900, L3100.1350, L3200.1200, L503.6550, L3200.0500, L501.6710 #### [facility] [address] [place], [place], [id number] Calcium [Mass/Vol] 8.7 mg/dL Normal 7.6-11.0 [facility] Comment on above: Performed By: #### L 503.0106, L500.4050, L501.1400, L400.0001, L503.6030, L3000.0800, L100.9950, L3890.6006, L501.5101, L100.0100, L504.2610, L501.5200, L506.0200, L3410.9992, L101.9900, L3100.1350, L3200.1200, L503.6550, L3200.0500, L501.6710 #### [facility] [address] [place], [place], [phone] (482) Chloride [Moles/Vol] 104 mmol/L Normal 98-108 [facility] Comment on above: Performed By: #### L 503.0106, L500.4050, L501.1400, L400.0001, L503.6030, L3000.0800, L100.9950, L3890.6006, L501.5101, L100.0100, L504.2610, L501.5200, L506.0200, L3410.9992, L101.9900, L3100.1350, L3200.1200, L503.6550, L3200.0500, L501.6710 #### [facility] [address] [place], [place], [phone] (349) CO2 [Moles/Vol] 18.9 mmol/L Low 21.0-32.0 [facility] Comment on above: Performed By: #### L 503.0106, L500.4050, L501.1400, L400.0001, L503.6030, L3000.0800, L100.9950, L3890.6006, L501.5101, L100.0100, L504.2610, L501.5200, L506.0200, L3410.9992, L101.9900, L3100.1350, L3200.1200, L503.6550, L3200.0500, L501.6710 #### [facility] [address] [place], [place], [address] Creatinine [Mass/Vol] 1.34 mg/dL High 0.70-1.20 [facility] [place] Comment on above: Performed By: #### L 503.0106, L500.4050, L501.1400, L400.0001, L503.6030, L3000.0800, L100.9950, L3890.6006, L501.5101, L100.0100, L504.2610, L501.5200, L506.0200, L3410.9992, L101.9900, L3100.1350, L3200.1200, L503.6550, L3200.0500, L501.6710 #### [facility] [address] [place], [place], [phone] (094) ECRCL 56.09 ml/min Normal 50-250 [facility] Comment on above: Performed By: #### L 503.0106, L500.4050, L501.1400, L400.0001, L503.6030, L3000.0800, L100.9950, L3890.6006, L501.5101, L100.0100, L504.2610, L501.5200, L506.0200, L3410.9992, L101.9900, L3100.1350, L3200.1200, L503.6550, L3200.0500, L501.6710 #### [facility] [address] [place], [place], [id number] GAP 13 Normal 5-15 [facility] Comment on above: Performed By: #### L 503.0106, L500.4050, L501.1400, L400.0001, L503.6030, L3000.0800, L100.9950, L3890.6006, L501.5101, L100.0100, L504.2610, L501.5200, L506.0200, L3410.9992, L101.9900, L3100.1350, L3200.1200, L503.6550, L3200.0500, L501.6710 #### [facility] [address] [facility] [place], [place], [id number] GFR/1.73 sq M.predicted among non-blacks MDRD (S/P/Bld) [Vol rate/Area] 47 mL/min/{1.73_m2} Low >60 [facility] Comment on above: Result Comment: mL/m in/1.73m2 CKD-EPI Creatinine Equation (2020) Performed By: #### L 503.0106, L500.4050, L501.1400, L400.0001, L503.6030, L3000.0800, L100.9950, L3890.6006, L501.5101, L100.0100, L504.2610, L501.5200, L506.0200, L3410.9992, L101.9900, L3100.1350, L3200.1200, L503.6550, L3200.0500, L501.6710 #### [facility] [address] [place], [place], [id number] Glucose [Mass/Vol] 106 mg/dL High 70-99 [facility] Comment on above: Performed By: #### L 503.0106, L500.4050, L501.1400, L400.0001, L503.6030, L3000.0800, L100.9950, L3890.6006, L501.5101, L100.0100, L504.2610, L501.5200, L506.0200, L3410.9992, L101.9900, L3100.1350, L3200.1200, L503.6550, L3200.0500, L501.6710 #### [facility] [address] [place], [place], [id number] Potassium [Moles/Vol] 3.8 mmol/L Normal 3.3-5.1 [facility] [place] Comment on above: Performed By: #### L 503.0106, L500.4050, L501.1400, L400.0001, L503.6030, L3000.0800, L100.9950, L3890.6006, L501.5101, L100.0100, L504.2610, L501.5200, L506.0200, L3410.9992, L101.9900, L3100.1350, L3200.1200, L503.6550, L3200.0500, L501.6710 #### [facility] [address] [place], [place], [address] Sodium [Moles/Vol] 135 mmol/L Normal 133-145 [facility] Comment on above: Performed By: #### L 503.0106, L500.4050, L501.1400, L400.0001, L503.6030, L3000.0800, L100.9950, L3890.6006, L501.5101, L100.0100, L504.2610, L501.5200, L506.0200, L3410.9992, L101.9900, L3100.1350, L3200.1200, L503.6550, L3200.0500, L501.6710 #### [facility] [address] [place], [place], [address] Urea nitrogen [Mass/Vol] 23 mg/dL High - [facility] Comment on above: Performed By: #### L 503.0106, L500.4050, L501.1400, L400.0001, L503.6030, L3000.0800, L100.9950, L3890.6006, L501.5101, L100.0100, L504.2610, L501.5200, L506.0200, L3410.9992, L101.9900, L3100.1350, L3200.1200, L503.6550, L3200.0500, L501.6710 #### [facility] [address] [facility] [place], [place], [address] Bedside Glucoseon 09-02-2025 FINGERSTICK GLU 152 mg/dL High 74-106 [facility] Comment on above: Result Comment: DARÍO GRIMES OF PATIENT CARE PER NURSING PROTOCOL Performed By: #### L 503.0106, L500.4050, L501.1400, L400.0001, L503.6030, L3000.0800, L100.9950, L3890.6006, L501.5101, L100.0100, L504.2610, L501.5200, L506.0200, L3410.9992, L101.9900, L3100.1350, L3200.1200, L503.6550, L3200.0500, L501.6710 #### [facility] [address] [place], [address] FINGERSTICK GLU 145 mg/dL High 74-106 [facility] Comment on above: Result Comment: DARÍO GEMENT OF PATIENT CARE PER NURSING PROTOCOL Performed By: #### L 503.0106, L500.4050, L501.1400, L400.0001, L503.6030, L3000.0800, L100.9950, L3890.6006, L501.5101, L100.0100, L504.2610, L501.5200, L506.0200, L3410.9992, L101.9900, L3100.1350, L3200.1200, L503.6550, L3200.0500, L501.6710 #### [facility] [address] [place], [address] FINGERSTICK GLU 123 mg/dL High 74-106 [facility] Comment on above: Result Comment: DARÍO GEMENT OF PATIENT CARE PER NURSING PROTOCOL Performed By: #### L 503.0106, L500.4050, L501.1400, L400.0001, L503.6030, L3000.0800, L100.9950, L3890.6006, L501.5101, L100.0100, L504.2610, L501.5200, L506.0200, L3410.9992, L101.9900, L3100.1350, L3200.1200, L503.6550, L3200.0500, L501.6710 #### [facility] [address] [place], [address] FINGERSTICK GLU 123 mg/dL High 74-106 [facility] Comment on above: Result Comment: DARÍO GEMENT OF PATIENT CARE PER NURSING PROTOCOL Performed By: #### L 503.0106, L500.4050, L501.1400, L400.0001, L503.6030, L3000.0800, L100.9950, L3890.6006, L501.5101, L100.0100, L504.2610, L501.5200, L506.0200, L3410.9992, L101.9900, L3100.1350, L3200.1200, L503.6550, L3200.0500, L501.6710 #### [facility] [address] [place] [place], [address] Discharge Instructionon 08-15 Discharge Instruction [facility] Medical Records Department [address] [place] [address] Instructions for Home/Discharge Instructions 09/02/25 1217 MR#: [id number] Acct: [id number] Name: HEIDI ANDREWS Rep #: [id number] : 1970 55 From: Frantz Gunderson DO [...] Valdez MD; Dr. Red Perez MD Signed [facility] [place] Lambda Light Chainson 09-02-2025 FR KAPPA LT CHN [facility] Comment on above: Result Comment: PUTT ING ALL ORDERS (R1,R2,R3,R4,IO1) ON SAME ORDER Performed By: #### L 991.6006 #### [facility] [address] [place], [address] FR LAMBDA LT CH [facility] Comment on above: Result Comment: PUTT ING ALL ORDERS (R1,R2,R3,R4,IO1) ON SAME ORDER Performed By: #### L 178.6005 #### [facility] [address] [place], [address] KAPPA/LAMBDA % Normal [facility] Comment on above: Result Comment: PUTT ING ALL ORDERS (R1,R2,R3,R4,IO1) ON SAME ORDER Performed By: #### L 503.6005 #### [facility] [address] [place], [address] Protein+Creatinine Ratio,Uri neon 09-02-2025 PROT:CRE RATIO 128 mg/g CRE Normal 0-200 [facility] Comment on above: Performed By: #### L 503.0106, L500.4050, L501.1400, L400.0001, L503.6030, L3000.0800, L100.9950, L3890.6006, L501.5101, L100.0100, L504.2610, L501.5200, L506.0200, L3410.9992, L101.9900, L3100.1350, L3200.1200, L503.6550, L3200.0500, L501.6710 #### [facility] [address] [place], [address] Protein (U) [Mass/Vol] 7.1 mg/dL Normal 0.0-12.0 [facility] Comment on above: Performed By: #### L 503.0106, L500.4050, L501.1400, L400.0001, L503.6030, L3000.0800, L100.9950, L3890.6006, L501.5101, L100.0100, L504.2610, L501.5200, L506.0200, L3410.9992, L101.9900, L3100.1350, L3200.1200, L503.6550, L3200.0500, L501.6710 #### [facility] [address] [place], [address] UR CREAT 55.60 mg/dL Normal 28.00-217.00 [facility] Comment on above: Performed By: #### L 503.0106, L500.4050, L501.1400, L400.0001, L503.6030, L3000.0800, L100.9950, L3890.6006, L501.5101, L100.0100, L504.2610, L501.5200, L506.0200, L3410.9992, L101.9900, L3100.1350, L3200.1200, L503.6550, L3200.0500, L501.6710 #### [facility] [place], [address] Random urine creatinine sandy urement (mass/volume)Ordered By: Memo Valdez on 09-02-2025 Creatinine Unsp time (U) [Mass/Vol] 55.60 mg/dL 28.00-217.00 [facility] Serum DNA double strand anti body assay (units/volume)Ordered By: Meom Valdez on 09-02-2025 DNA double strand Ab Qn (S) [IU]/mL 0-9 [facility] Comment on above: Negative <5 Equivoca l 5 - 9 Positive >9Performed at: [email or web address] [address] [id number] Director: Preston Ashley PhD, Phone: [phone] Serum classic neutrophil cyt oplasmic antibody assay (units/volume)Ordered By: Memo Valdez on 09-02-2025 Neutrophil cytoplasmic Ab.classic Qn (S) <1:20 titer Neg:<1:20 [facility] Serum glomerular basement me mbrane antibody assay (units/volume)Ordered By: Memo Valdez on 09-02-2025 Glomerular basement membrane Ab Qn (S) < 0.2 units 0.0-0.9 [facility] Comment on above: Performed at: [address] [id number] Director: Preston Ashley PhD, Phone: [phone] at: [facility] [id number] [place], [place] [id number] Director: Lauren Hendricks MD, Phone: [phone] Serum immunoglobulin kappa l ight chains/immunoglobulin lambda light chains mass ratioOrdered By: Memo Valdez on 09-02-2025 Immunoglobulin light chains.kappa/Immunoglobulin light chains.lambda (S) [Mass ratio] 1.35 0.26-1.65 [facility] Serum or plasma immunoglobul in kappa light chains measurement (mass/volume)Ordered By: Memo Valdez on 09-02-2025 Immunoglobulin light chains.kappa [Mass/Vol] 20.9 mg/L High 3.3-19.4 [facility] Serum perinuclear neutrophil cytoplasmic antibody titer by immunofluorescenceOrdered By: Memo Valdez on 09-02-2025 Neutrophil cytoplasmic Ab.perinuclear IF (S) [Titer] <1:20 titer Neg:<1:20 [facility] Comment on above: The presence of posi tive fluorescence exhibiting P-ANCA orC-ANCA patterns alone is not specific for the diagnosis ofWegener's Granulomatosis (WG) or microscopic polyangiitis.Decisions about treatment should not be based solely onANCA IFA results. The [employer] ANCA [employer] Consensusrecommends follow up testing of positive sera with both NH-3 and MPO-ANCA enzyme immunoassays. As many as 5% serumsamples are positive only by EIA. Ref. AM J Clin [id number];111:507-513. Urine protein measurement (m ass/volume)Ordered By: Memo Valdez on 09-02-2025 Protein (U) [Mass/Vol] 7.1 mg/dL 0.0-12.0 [facility] Urine protein/creatinine mas s ratioOrdered By: Memo Valdez on 09-02-2025 Protein/Creatinine (U) [Mass ratio] 128 mg/g CRE 0-200 [facility] Basic Metabolic Profile (BMP )on 09-01-2025 BUN/CRE 17.9 RATIO Normal 09-03 [facility] Comment on above: Performed By: #### L 500.2500 #### [facility] Laboratory [facility] [place], [address] Calcium [Mass/Vol] 8.6 mg/dL Normal 7.6-11.0 [facility] Comment on above: Performed By: #### L 500.2500 #### [facility] [address] [place], [address] Chloride [Moles/Vol] 97 mmol/L Low 98-108 [facility] Comment on above: Performed By: #### L 500.2500 #### [facility] [address] [place], [address] CO2 [Moles/Vol] 17.2 mmol/L Low 21.0-32.0 [facility] Comment on above: Performed By: #### L 500.2500 #### [facility] [address] [place], [address] Creatinine [Mass/Vol] 2.42 mg/dL High 0.70-1.20 [facility] Comment on above: Performed By: #### L 500.2500 #### [facility] [address] [place], [address] ECRCL 31.06 ml/min Low 50-250 [facility] Comment on above: Performed By: #### L 500.2500 #### [facility] [address] [place], [address] GAP 17 High 5-15 [facility] Comment on above: Performed By: #### L 500.2500 #### [facility] [address] [place], [address] GFR/1.73 sq M.predicted among non-blacks MDRD (S/P/Bld) [Vol rate/Area] 23 mL/min/{1.73_m2} Low >60 [facility] Comment on above: Result Comment: mL/m in/1.73m2 CKD-EPI Creatinine Equation (2020) Performed By: #### L 500.2500 #### [facility] [address] [place], [address] Glucose [Mass/Vol] 145 mg/dL High 70-99 [facility] Comment on above: Performed By: #### L 500.2500 #### [facility] [address] [place], [address] Potassium [Moles/Vol] 4.1 mmol/L Normal 3.3-5.1 [facility] Comment on above: Performed By: #### L 500.2500 #### [facility] [address] [place], [address] Sodium [Moles/Vol] 131 mmol/L Low 133-145 [facility] Comment on above: Performed By: #### L 500.2500 #### [facility] [address] [place], [address] Urea nitrogen [Mass/Vol] 43 mg/dL High 4-19 [facility] Comment on above: Performed By: #### L 500.2500 #### [facility] [address] [place], [address] Bedside Glucoseon 09-01-2025 FINGERSTICK GLU 156 mg/dL High 74-106 [facility] Comment on above: Result Comment: DARÍO GRIMES OF PATIENT CARE PER NURSING PROTOCOL Performed By: #### L 503.0106, L500.4050, L501.1400, L400.0001, L503.6030, L3000.0800, L100.9950, L3890.6006, L501.5101, L100.0100, L504.2610, L501.5200, L506.0200, L3410.9992, L101.9900, L3100.1350, L3200.1200, L503.6550, L3200.0500, L501.6710 #### [facility] [address] [place], [address] FINGERSTICK GLU 146 mg/dL High 74-106 [facility] Comment on above: Result Comment: DARÍO GEMENT OF PATIENT CARE PER NURSING PROTOCOL Performed By: #### L 503.6005 #### [facility] [address] [place], [place], [address] (444) FINGERSTICK GLU 170 mg/dL High 74-106 [facility] Comment on above: Result Comment: DARÍO GEMENT OF PATIENT CARE PER NURSING PROTOCOL Performed By: #### L 503.0106, L500.4050, L501.1400, L400.0001, L503.6030, L3000.0800, L100.9950, L3890.6006, L501.5101, L100.0100, L504.2610, L501.5200, L506.0200, L3410.9992, L101.9900, L3100.1350, L3200.1200, L503.6550, L3200.0500, L501.6710 #### [facility] [address] [facility] [place], [address] FINGERSTICK GLU 131 mg/dL High 74-106 [facility] Comment on above: Result Comment: DARÍO GEMENT OF PATIENT CARE PER NURSING PROTOCOL Performed By: #### L 503.0106, L500.4050, L501.1400, L400.0001, L503.6030, L3000.0800, L100.9950, L3890.6006, L501.5101, L100.0100, L504.2610, L501.5200, L506.0200, L3410.9992, L101.9900, L3100.1350, L3200.1200, L503.6550, L3200.0500, L501.6710 #### [facility] [address] [facility] [place], [address] [phone] Consultation - Nephrologyon 09-01-2025 Consultation - Nephrology [facility] Medical Records Department [address] [place] [address] Consultation - Nephrology 09/01/25 1652 MR#: [id number] Acct: [id number] Name: HEIDI ANDREWS Rep #: [id number] : 1970 55 From: Memo Valdez MD PCP: Dr. Red Perez MD Status:ADM IN Location: MS3 [id number] Assessment Plan Assessment/Plan (1) JESI (acute kidney [...] increased. currently on IV fluids. no hematuria. FORMERLY [facility], 1928–1983 Medical History (Updated 08/31/25 @ 13:40 by [...] own History mg/3 mL) subcutaneous pen injector ([facility]) Held on 08/31/25. Instructions: skipped this week [...] 08/31/25 14:36 SB (Rec: 08/31/25 14:36 SB [id number]) Nutrition Malnutrition Evidence of Yes Malnutrition Exists Malnutrition (severe Acute Illness/Injury ): Evidenced By Suboptimal Energy Intake (Severe),Weight Loss (Severe) (more content not included)... Normal [facility] 12 Lead EKGon 08-31-2025 12 Lead EKG [facility] Cardiovascular Services [address] [place] [address] 12 Lead EKG 08/31/25 1102 MR#: [id number] Acct: [id number] Name: HEIDI ANDREWS Rep #: [id number] : 1970 55 From: Caleb Mendiola MD Attending Dr: Dr. Frantz Gunderson DO Status: A DM IN Ordering Dr: Berlin Wilson DO Date: 08/31/25 [place] [facility] Sex: F C Admitted: 08/31/25 Test Reason : Blood Pressure : */* mmHG Vent. Rate : 72 BPM Atrial Rate : 72 BPM P-R Int : 168 ms QRS Dur : 90 ms QT Int : 418 ms P-R-T Axes : 39 21 52 degrees QTcB Int : 457 ms Normal sinus rhythm Nonspecific ST abnormality Abnormal ECG Confirmed by CALEB MENDIOLA MD ([id number]), loan expeditor GUY CAMPOVERDE ([id number]) on 09/03/2025 6:58:58 AM Referred By: Confirmed By: CALEB MENDIOLA MD 09/03/25 0659 Date Caleb Mendiola MD CC: Dr. Berlin Wilson, DO; Dr. Frantz Gunderson DO; Dr. Red Perez MD Signed Normal [facility] Absolute lymphocyte countOrd ered By: Berlin Wilson on 08-31-2025 Lymphocytes Auto (Unsp spec) [#/Vol] 0.79 10*3/uL Low 0.83-4.51 [facility] Absolute neutrophil countOrd ered By: Berlin Wilson on 08-31-2025 Neutrophils (Bld) [#/Vol] 3.6 10*3/uL 2.0-7.7 [facility] Activated partial thrombopla stin time (aPTT) in platelet poor plasma by coagulation aOrdered By: Berlin Wilson on 08-31-2025 aPTT Coag (PPP) [Time] 27.1 s 24.1-36.2 [facility] Amorphous sediment detection in urine sediment by light microscopyOrdered By: Berlin Wilson on 08-31-2025 Amorphous sediment LM Ql (Urine sed) 1+ [facility] Ankle min 3 Viewson 08-31-20 25 Ankle min 3 Views [facility] Imaging Services [address] [place] [address] Ankle min 3 Views MR#: [id number] Acct: [id number] Name: HEIDI ANDREWS Rep #: [id number] : 1970 F 55 From: Russ davila MD PCP: Dr. Red Perez MD Status: REG ER Study: Ankle min 3 Views Date of Exam: 08/31/25 Exam# [id number] Ordering Dr: Berlin Wilson DO PROCEDURE: ANKLE [...] well as soft tissue swelling. Reading Location: [place] [address] CC: Dr. Berlin Wilson DO; Dr. Red Perez MD Master Control Supervisor: Signed Normal [facility] Automated lymphocyte count a s percentage of total leukocytesOrdered By: Berlin Wilson on 08-31-2025 Lymphocytes/100 WBC Auto (Unsp spec) 16.0 % Low 19- [facility] Basic Metabolic Profile (BMP )on 08-31-2025 BUN/CRE 15.0 RATIO Normal - [facility] Comment on above: Performed By: #### L 503.0106, L500.4050, L501.1400, L400.0001, L503.6030, L3000.0800, L100.9950, L3890.6006, L501.5101, L100.0100, L504.2610, L501.5200, L506.0200, L3410.9992, L101.9900, L3100.1350, L3200.1200, L503.6550, L3200.0500, L501.6710 #### [facility] Laboratory [address] [facility] [place], [place], [id number] Calcium [Mass/Vol] 10.5 mg/dL Normal 7.6-11.0 [facility] Comment on above: Performed By: #### L 503.0106, L500.4050, L501.1400, L400.0001, L503.6030, L3000.0800, L100.9950, L3890.6006, L501.5101, L100.0100, L504.2610, L501.5200, L506.0200, L3410.9992, L101.9900, L3100.1350, L3200.1200, L503.6550, L3200.0500, L501.6710 #### [facility] Laboratory [address] [facility] [place], [place], [id number] Chloride [Moles/Vol] 86 mmol/L Low 98-108 [facility] Comment on above: Performed By: #### L 503.0106, L500.4050, L501.1400, L400.0001, L503.6030, L3000.0800, L100.9950, L3890.6006, L501.5101, L100.0100, L504.2610, L501.5200, L506.0200, L3410.9992, L101.9900, L3100.1350, L3200.1200, L503.6550, L3200.0500, L501.6710 #### [facility] Laboratory [address] [place], [place], [id number] CO2 [Moles/Vol] 17.7 mmol/L Low 21.0-32.0 [facility] Comment on above: Performed By: #### L 503.0106, L500.4050, L501.1400, L400.0001, L503.6030, L3000.0800, L100.9950, L3890.6006, L501.5101, L100.0100, L504.2610, L501.5200, L506.0200, L3410.9992, L101.9900, L3100.1350, L3200.1200, L503.6550, L3200.0500, L501.6710 #### [facility] Laboratory [address] [place], [place], [id number] Creatinine [Mass/Vol] 3.10 mg/dL High 0.70-1.20 [facility] Comment on above: Performed By: #### L 503.0106, L500.4050, L501.1400, L400.0001, L503.6030, L3000.0800, L100.9950, L3890.6006, L501.5101, L100.0100, L504.2610, L501.5200, L506.0200, L3410.9992, L101.9900, L3100.1350, L3200.1200, L503.6550, L3200.0500, L501.6710 #### [facility] Laboratory [address] [place], [place], [address] ECRCL 25.29 ml/min Low 50-250 [facility] Comment on above: Performed By: #### L 503.0106, L500.4050, L501.1400, L400.0001, L503.6030, L3000.0800, L100.9950, L3890.6006, L501.5101, L100.0100, L504.2610, L501.5200, L506.0200, L3410.9992, L101.9900, L3100.1350, L3200.1200, L503.6550, L3200.0500, L501.6710 #### [facility] Laboratory [address] [place], [address] GAP 25 High 5-15 [facility] Comment on above: Performed By: #### L 503.0106, L500.4050, L501.1400, L400.0001, L503.6030, L3000.0800, L100.9950, L3890.6006, L501.5101, L100.0100, L504.2610, L501.5200, L506.0200, L3410.9992, L101.9900, L3100.1350, L3200.1200, L503.6550, L3200.0500, L501.6710 #### [facility] Laboratory [address] [place], [place], [id number] GFR/1.73 sq M.predicted among non-blacks MDRD (S/P/Bld) [Vol rate/Area] 17 mL/min/{1.73_m2} Low >60 [facility] Comment on above: Result Comment: mL/m in/1.73m2 CKD-EPI Creatinine Equation (2020) Performed By: #### L 503.0106, L500.4050, L501.1400, L400.0001, L503.6030, L3000.0800, L100.9950, L3890.6006, L501.5101, L100.0100, L504.2610, L501.5200, L506.0200, L3410.9992, L101.9900, L3100.1350, L3200.1200, L503.6550, L3200.0500, L501.6710 #### [facility] Laboratory [address] [place], [place], [id number] (229) Glucose [Mass/Vol] 199 mg/dL High 70-99 [facility] Comment on above: Performed By: #### L 503.0106, L500.4050, L501.1400, L400.0001, L503.6030, L3000.0800, L100.9950, L3890.6006, L501.5101, L100.0100, L504.2610, L501.5200, L506.0200, L3410.9992, L101.9900, L3100.1350, L3200.1200, L503.6550, L3200.0500, L501.6710 #### [facility] Laboratory [address] [place] [place], [address] Potassium [Moles/Vol] 3.8 mmol/L Normal 3.3-5.1 [facility] Comment on above: Performed By: #### L 503.0106, L500.4050, L501.1400, L400.0001, L503.6030, L3000.0800, L100.9950, L3890.6006, L501.5101, L100.0100, L504.2610, L501.5200, L506.0200, L3410.9992, L101.9900, L3100.1350, L3200.1200, L503.6550, L3200.0500, L501.6710 #### [facility] Laboratory [address] [place] [place], [address] Sodium [Moles/Vol] 129 mmol/L Low 133-145 [facility] Comment on above: Performed By: #### L 503.0106, L500.4050, L501.1400, L400.0001, L503.6030, L3000.0800, L100.9950, L3890.6006, L501.5101, L100.0100, L504.2610, L501.5200, L506.0200, L3410.9992, L101.9900, L3100.1350, L3200.1200, L503.6550, L3200.0500, L501.6710 #### [facility] Laboratory [address] [place], [address] Urea nitrogen [Mass/Vol] 47 mg/dL High 4-19 [facility] Comment on above: Performed By: #### L 503.0106, L500.4050, L501.1400, L400.0001, L503.6030, L3000.0800, L100.9950, L3890.6006, L501.5101, L100.0100, L504.2610, L501.5200, L506.0200, L3410.9992, L101.9900, L3100.1350, L3200.1200, L503.6550, L3200.0500, L501.6710 #### [facility] Laboratory [address] [place], [place], [id number] Basophil percentageOrdered B y: Berlin Wilson on 08-31-2025 Basophils/100 WBC (Bld) 0.6 % 0-1 W [facility] Bedside Glucoseon 08-31-2025 FINGERSTICK GLU 143 mg/dL High 74-106 [facility] Comment on above: Result Comment: DARÍO GRIMES OF PATIENT CARE PER NURSING PROTOCOL Performed By: #### L 503.0106, L500.4050, L501.1400, L400.0001, L503.6030, L3000.0800, L100.9950, L3890.6006, L501.5101, L100.0100, L504.2610, L501.5200, L506.0200, L3410.9992, L101.9900, L3100.1350, L3200.1200, L503.6550, L3200.0500, L501.6710 #### [facility] Laboratory [address] [place], [place], [id number] Bilirubin Test strip Ql (U)O rdered By: Berlin Wilson on 08-31-2025 Bilirubin Ql (U) 3 mg/dL High Negative [facility] Comment on above: COLOR OF URINE MAY A FFECT DIPSTICK RESULTS. Bilirubin directOrdered By: Berlin Wilson on 08-31-2025 Bilirubin.direct [Mass/Vol] 0.33 mg/dL High 0.00-0.3 0 [facility] Bilirubin, totalOrdered By: Berlin Wilson on 08-31-2025 Bilirubin [Mass/Vol] 0.60 mg/dL 0.00-1.30 [facility] Brain/Head without Contrasto n 08-31-2025 Brain/Head without Contrast [facility] Imaging Services [address] [place], [place] [id number] Brain/Head without Contrast MR#: [id number] Acct: [id number] Name: HEIDI ANDREWS Rep #: [id number] : 1970 F 55 From: Russ davila MD PCP: Dr. Red Perez MD Status: REG ER Study: Brain/Head without Contrast Date of Exam: 08/15 06/08 Exam# [id number] Ordering Dr: Berlin Wilson DO PROCEDURE: BRAIN/HEAD [...] as well as in the Reading Location: [place] [address] CC: Dr. Berlin Wilson DO; Dr. Red Perez MD Master Control Supervisor: Signed Normal [facility] CBC W/Diff, Automatedon 08-15 Absolute Lymph 0.79 X10 3/uL Low 0.83-4.51 [facility] Comment on above: Performed By: #### L 503.0106, L500.4050, L501.1400, L400.0001, L503.6030, L3000.0800, L100.9950, L3890.6006, L501.5101, L100.0100, L504.2610, L501.5200, L506.0200, L3410.9992, L101.9900, L3100.1350, L3200.1200, L503.6550, L3200.0500, L501.6710 #### [facility] Laboratory [address] [facility] [place], [place], [id number] Absolute Neut 3.6 X10 3/uL Normal 2.0-7.7 [facility] Comment on above: Performed By: #### L 503.0106, L500.4050, L501.1400, L400.0001, L503.6030, L3000.0800, L100.9950, L3890.6006, L501.5101, L100.0100, L504.2610, L501.5200, L506.0200, L3410.9992, L101.9900, L3100.1350, L3200.1200, L503.6550, L3200.0500, L501.6710 #### [facility] Laboratory [address] [facility] [place], [place], [phone] (047) Basophils/100 WBC (Bld) 0.6 % Normal 0-1 W [facility] Comment on above: Performed By: #### L 503.0106, L500.4050, L501.1400, L400.0001, L503.6030, L3000.0800, L100.9950, L3890.6006, L501.5101, L100.0100, L504.2610, L501.5200, L506.0200, L3410.9992, L101.9900, L3100.1350, L3200.1200, L503.6550, L3200.0500, L501.6710 #### [facility] Laboratory [address] [place], [place], [id number] (022) Eosinophils/100 WBC (Bld) 3.0 % Normal 0-5 [facility] Comment on above: Performed By: #### L 503.0106, L500.4050, L501.1400, L400.0001, L503.6030, L3000.0800, L100.9950, L3890.6006, L501.5101, L100.0100, L504.2610, L501.5200, L506.0200, L3410.9992, L101.9900, L3100.1350, L3200.1200, L503.6550, L3200.0500, L501.6710 #### [facility] Laboratory [address] [place], [place], [phone] Erythrocyte distribution width (RBC) [Ratio] 13.8 % Normal 11.6-14.6 [facility] Comment on above: Performed By: #### L 503.0106, L500.4050, L501.1400, L400.0001, L503.6030, L3000.0800, L100.9950, L3890.6006, L501.5101, L100.0100, L504.2610, L501.5200, L506.0200, L3410.9992, L101.9900, L3100.1350, L3200.1200, L503.6550, L3200.0500, L501.6710 #### [facility] Laboratory [address] [place], [address] Hematocrit (Bld) [Volume fraction] 33.2 % Low 37-47 [facility] Comment on above: Performed By: #### L 503.0106, L500.4050, L501.1400, L400.0001, L503.6030, L3000.0800, L100.9950, L3890.6006, L501.5101, L100.0100, L504.2610, L501.5200, L506.0200, L3410.9992, L101.9900, L3100.1350, L3200.1200, L503.6550, L3200.0500, L501.6710 #### [facility] Laboratory [address] [place] [place], [address] Hemoglobin (Bld) [Mass/Vol] 10.9 g/dL Low 12.0-15. 0 [facility] Comment on above: Performed By: #### L 503.0106, L500.4050, L501.1400, L400.0001, L503.6030, L3000.0800, L100.9950, L3890.6006, L501.5101, L100.0100, L504.2610, L501.5200, L506.0200, L3410.9992, L101.9900, L3100.1350, L3200.1200, L503.6550, L3200.0500, L501.6710 #### [facility] Laboratory [address] [place], [address] IG% 1.200 High 0.0-0.9 [facility] Comment on above: Result Comment: IG% - Immature Granulocytes (promyelocytes, myelocytes and metamyelocytes) > 1% indicates that a LEFT SHIFT is Present. Performed By: #### L 503.0106, L500.4050, L501.1400, L400.0001, L503.6030, L3000.0800, L100.9950, L3890.6006, L501.5101, L100.0100, L504.2610, L501.5200, L506.0200, L3410.9992, L101.9900, L3100.1350, L3200.1200, L503.6550, L3200.0500, L501.6710 #### [facility] Laboratory [address] [place], [address] Lymphocytes/100 WBC (Bld) 16.0 % Low 19-41 [facility] Comment on above: Performed By: #### L 503.0106, L500.4050, L501.1400, L400.0001, L503.6030, L3000.0800, L100.9950, L3890.6006, L501.5101, L100.0100, L504.2610, L501.5200, L506.0200, L3410.9992, L101.9900, L3100.1350, L3200.1200, L503.6550, L3200.0500, L501.6710 #### [facility] Laboratory [address] [place], [address] MCH (RBC) [Entitic mass] 26.5 pg Low 27.0-32.0 [facility] Comment on above: Performed By: #### L 503.0106, L500.4050, L501.1400, L400.0001, L503.6030, L3000.0800, L100.9950, L3890.6006, L501.5101, L100.0100, L504.2610, L501.5200, L506.0200, L3410.9992, L101.9900, L3100.1350, L3200.1200, L503.6550, L3200.0500, L501.6710 #### [facility] Laboratory [address] [place], [address] MCHC (RBC) [Mass/Vol] 32.8 g/dL Normal 32-36 [facility] Comment on above: Performed By: #### L 503.0106, L500.4050, L501.1400, L400.0001, L503.6030, L3000.0800, L100.9950, L3890.6006, L501.5101, L100.0100, L504.2610, L501.5200, L506.0200, L3410.9992, L101.9900, L3100.1350, L3200.1200, L503.6550, L3200.0500, L501.6710 #### [facility] Laboratory [address] [place], [place], [id number] [phone] MCV (RBC) [Entitic vol] 80.8 fL Low 81-99 [facility] Comment on above: Performed By: #### L 503.0106, L500.4050, L501.1400, L400.0001, L503.6030, L3000.0800, L100.9950, L3890.6006, L501.5101, L100.0100, L504.2610, L501.5200, L506.0200, L3410.9992, L101.9900, L3100.1350, L3200.1200, L503.6550, L3200.0500, L501.6710 #### [facility] Laboratory [address] [place], [place], [phone] Monocytes/100 WBC (Bld) 6.7 % Normal 0-10 [facility] Comment on above: Performed By: #### L 503.0106, L500.4050, L501.1400, L400.0001, L503.6030, L3000.0800, L100.9950, L3890.6006, L501.5101, L100.0100, L504.2610, L501.5200, L506.0200, L3410.9992, L101.9900, L3100.1350, L3200.1200, L503.6550, L3200.0500, L501.6710 #### [facility] Laboratory [address] [place] [place], [address] Neutrophils/100 WBC (Bld) 72.5 % High 47-70 [facility] Comment on above: Performed By: #### L 503.0106, L500.4050, L501.1400, L400.0001, L503.6030, L3000.0800, L100.9950, L3890.6006, L501.5101, L100.0100, L504.2610, L501.5200, L506.0200, L3410.9992, L101.9900, L3100.1350, L3200.1200, L503.6550, L3200.0500, L501.6710 #### [facility] Laboratory [address] [place] [place], [address] Nucleated RBC (Bld) [#/Vol] 0 10*3/uL Normal 0-5 [facility] Comment on above: Performed By: #### L 503.0106, L500.4050, L501.1400, L400.0001, L503.6030, L3000.0800, L100.9950, L3890.6006, L501.5101, L100.0100, L504.2610, L501.5200, L506.0200, L3410.9992, L101.9900, L3100.1350, L3200.1200, L503.6550, L3200.0500, L501.6710 #### [facility] Laboratory [address] [place], [address] Platelet mean volume (Bld) [Entitic vol] 10.1 fL Normal 6.2-12.0 [facility] Comment on above: Performed By: #### L 503.0106, L500.4050, L501.1400, L400.0001, L503.6030, L3000.0800, L100.9950, L3890.6006, L501.5101, L100.0100, L504.2610, L501.5200, L506.0200, L3410.9992, L101.9900, L3100.1350, L3200.1200, L503.6550, L3200.0500, L501.6710 #### [facility] Laboratory [address] [place], [place], [id number] (163) Platelets (Bld) [#/Vol] 240 10*3/uL Normal 150-450 [facility] Comment on above: Performed By: #### L 503.0106, L500.4050, L501.1400, L400.0001, L503.6030, L3000.0800, L100.9950, L3890.6006, L501.5101, L100.0100, L504.2610, L501.5200, L506.0200, L3410.9992, L101.9900, L3100.1350, L3200.1200, L503.6550, L3200.0500, L501.6710 #### [facility] Laboratory [address] [place], [place], [id number] RBC (Bld) [#/Vol] 4.11 10*6/uL Low 4.2-5.4 [facility] Comment on above: Performed By: #### L 503.0106, L500.4050, L501.1400, L400.0001, L503.6030, L3000.0800, L100.9950, L3890.6006, L501.5101, L100.0100, L504.2610, L501.5200, L506.0200, L3410.9992, L101.9900, L3100.1350, L3200.1200, L503.6550, L3200.0500, L501.6710 #### [facility] Laboratory [address] [place], [place], [id number] RDW SD 40.0 fl Normal 35.1-43.9 [facility] Comment on above: Performed By: #### L 503.0106, L500.4050, L501.1400, L400.0001, L503.6030, L3000.0800, L100.9950, L3890.6006, L501.5101, L100.0100, L504.2610, L501.5200, L506.0200, L3410.9992, L101.9900, L3100.1350, L3200.1200, L503.6550, L3200.0500, L501.6710 #### [facility] Laboratory [address] [place], [address] WBC (Bld) [#/Vol] 4.9 10*3/uL Normal 4.4-11.0 [facility] Comment on above: Performed By: #### L 503.0106, L500.4050, L501.1400, L400.0001, L503.6030, L3000.0800, L100.9950, L3890.6006, L501.5101, L100.0100, L504.2610, L501.5200, L506.0200, L3410.9992, L101.9900, L3100.1350, L3200.1200, L503.6550, L3200.0500, L501.6710 #### [facility] Laboratory [address] [facility] [place], [place], [address] Chest 1 Viewon 08-31-2025 Chest 1 View [facility] Imaging Services [address] [place], [place] [address] Chest 1 View MR#: [id number] Acct: [id number] Name: HEIDI ANDREWS Rep #: [id number] : 1970 F 55 From: Russ davila MD PCP: Dr. Red Perez MD Status: REG ER Study: Chest 1 View Date of Exam: 08/31/25 Exam# [id number] Ordering Dr: Berlin Wilson DO PROCEDURE: CHEST [...] No acute abnormality is seen. Reading Location: [place] [address] CC: Dr. Berlin Wilson DO; Dr. Red Perez MD Master Control Supervisor: Signed Normal [facility] Emergency Department Summary on 08-31-2025 Emergency Department Summary [facility] Medical Records Department [address] [place] [address] Emergency Department Summary 08/31/25 MR#: [id number] Acct: [id number] Name: HEIDI ANDREWS Rep #: [id number] : 1970 55 From: Berlin Wilson DO PCP: Dr. Red Perez MD Status:ADM IN [facility] History of Present Illness Chief Complaint: [...] uncommon for her since beginning iron supplementation. [facility] Medical History (Updated 08/31/25 @ 13:40 [...] own History mg/3 mL) subcutaneous pen injector ([employer]) Held on 08/31/25. Instructions: skipped this week [...] Eyes Eyes (more content not included)... Normal [facility] Eosinophil percentageOrdered By: Berlin Wilson on 08-31-2025 Eosinophils/100 WBC (Bld) 3.0 % 0-5 [facility] Erythrocyte distribution wid th ratioOrdered By: Belrin Wilson on 08-31-2025 Erythrocyte distribution width (RBC) [Ratio] 13.8 % 11.6-14.6 [facility] Erythrocyte distribution wid th standard deviationOrdered By: Berlin Wilson on 08-31-2025 Erythrocyte distribution width (RBC) [Ratio] 40.0 fl 35.1-43.9 [facility] H AND P Exam - [facility] 08-31-2025 H&P Exam - Hospitalist [facility] Medical Records Department [address] [place] [address] H P Exam - Hospitalist 08/31/25 1849 MR#: [id number] Acct: [id number] Name: HEIDI ANDREWS Rep #: [id number] : 1970 55 From: Frantz Gunderson DO PCP: Dr. Red Perez MD Status:ADM IN Location[place] [facility] [id number] HPI - General General Date of Admission: 08/31/25 Date of Service: 08/31/25 Chief Complaint: Syncope, right ankle injury HPI Narrative HEIDI ANDREWS, is a 55 F who presents to the emergency room at [facility] after sustaining a syncopal episode at home [...] of metformin with a backdrop of starvation. [facility], [facility]1983 Medical History (Updated 08/31/25 @ 13:40 by [...] own History mg/3 mL) subcutaneous pen injector ([facility]) Held on 08/31/25. Instructions: skipped this week [...] spouse current occupational status: employed current occupation: [employer] Smoking Status: Former smoker alcohol intake: never substance use type: does not use ROS [employer] (more content not included)... Normal [facility] Hematocrit Auto (Bld) [Volum e fraction]Ordered By: Berlin Wilson on 08-31-2025 Hematocrit (Bld) [Volume fraction] 33.2 % Low 37-47 [facility] Hemoglobin measurementOrdere d By: Berlin Wilson on 08-31-2025 Hemoglobin (Bld) [Mass/Vol] 10.9 g/dL Low 12.0-15. 0 [facility] Immature granulocytes/100 WB C Auto (Bld)Ordered By: Berlin Wilson on 08-31-2025 Immature granulocytes/100 WBC (Bld) 1.200 % High 0.0-0.9 [facility] Comment on above: IG% - Immature Granu locytes (promyelocytes, myelocytes and metamyelocytes) > 1% indicates that a LEFT SHIFT is Present. International normalized rat io (INR) calculationOrdered By: Berlin Wilson on 08-31-2025 INR Coag (Bld) [Relative time] 1.3 {INR} [facility] Ketones Test strip Ql (U)Ord ered By: Berlin Wilson on 08-31-2025 Ketones Ql (U) 5 mg/dl High Negative [facility] Kidney and Bladderon 025 Kidney and Bladder [facility] Imaging Services [address] [place] [address] Kidney and Bladder MR#: [id number] Acct: [id number] Name: HEIDI ANDREWS Rep #: [id number] : 1970 F 55 From: Farhat Faye MD PCP: Dr. Red Perez MD Status: ADM IN Study: Kidney and Bladder Date of Exam: 08/31/25 Exam# [id number] Ordering Dr: Frantz Gunderson DO PROCEDURE: KIDNEY AND BLADDER 08/31/2025 REASON FOR EXAM: ACUTE KIDNEY INJURY TECHNIQUE: Procedure Code: USKI Modality: US Procedure: KIDNEY AND BLADDER COMPARISON: None available. FINDINGS: Kidneys: Normal renal sizes, parenchymal thicknesses, and echotextures. [place]: None. Cysts or Masses: No cysts or [...] Bladder IMPRESSION: NORMAL RENAL ULTRASOUND. Reading Location: [facility] CC: Dr. Frantz Gunderson DO; Dr. Red Perez MD Master Control Supervisor: Signed Normal [facility] L501.4021on 08-31-2025 Trop T High Sen 14 ng/L Normal <=14 [facility] Comment on above: Performed By: #### L 503.0106, L500.4050, L501.1400, L400.0001, L503.6030, L3000.0800, L100.9950, L3890.6006, L501.5101, L100.0100, L504.2610, L501.5200, L506.0200, L3410.9992, L101.9900, L3100.1350, L3200.1200, L503.6550, L3200.0500, L501.6710 #### [facility] Laboratory [address] [place], [address] Laboratory - Chemistry and C hemistry - challengeOrdered By: Berlin Wilson on 08-31-2025 AST [Catalytic activity/Vol] 17 U/L <32 [facility] Lactic Acidon 08-31-2025 Lactate [Moles/Vol] 3.0 mmol/L Invalid Interpretation Code 0.0-2.0 [facility] Comment on above: Result Comment: Crit ical Result(s) Called at: 23:17 08-31-25 TO TYSON ALLISON by: CHELSI PÉREZ??Results read back by same. Performed By: #### L 503.0106, L500.4050, L501.1400, L400.0001, L503.6030, L3000.0800, L100.9950, L3890.6006, L501.5101, L100.0100, L504.2610, L501.5200, L506.0200, L3410.9992, L101.9900, L3100.1350, L3200.1200, L503.6550, L3200.0500, L501.6710 #### [facility] Laboratory [address] [place], [address] Lactate [Moles/Vol] 4.3 mmol/L Invalid Interpretation Code 0.0-2.0 [facility] Comment on above: Order Comment: Y Result Comment: Crit ical Result(s) Called at: 1854 by:??CHEYENNE BURNETT Results read back by same. Performed By: #### L 503.6005 #### [facility] Laboratory [address] [place], [address] Lactate [Moles/Vol] 4.4 mmol/L Invalid Interpretation Code 0.0-2.0 [facility] Comment on above: Order Comment: Y Result Comment: Crit ical Result(s) Called to: Adam RN (ER) by: Sharmila??Results read back by same. Performed By: #### L 503.0106, L500.4050, L501.1400, L400.0001, L503.6030, L3000.0800, L100.9950, L3890.6006, L501.5101, L100.0100, L504.2610, L501.5200, L506.0200, L3410.9992, L101.9900, L3100.1350, L3200.1200, L503.6550, L3200.0500, L501.6710 #### [facility] [address] [place], [address] Lactic acid measurementOrder ed By: Frantz Gunderson on 08-31-2025 Lactate [Moles/Vol] 3.0 mmol/L Critically high 0.0-2.0 [facility] Comment on above: Critical Result(s) C alled at: 23:17 08-31-25 TO TYSON ALLISON by: CHELSI PÉREZ Results read back by same. Liver Profileon 08-31-2025 Albumin [Mass/Vol] 4.9 g/dL Normal 3.5-5.0 [facility] Comment on above: Performed By: #### L 503.0106, L500.4050, L501.1400, L400.0001, L503.6030, L3000.0800, L100.9950, L3890.6006, L501.5101, L100.0100, L504.2610, L501.5200, L506.0200, L3410.9992, L101.9900, L3100.1350, L3200.1200, L503.6550, L3200.0500, L501.6710 #### [facility] [address] [place], [address] ALK PHOS 186 U/L High 35-104 [facility] Comment on above: Performed By: #### L 503.0106, L500.4050, L501.1400, L400.0001, L503.6030, L3000.0800, L100.9950, L3890.6006, L501.5101, L100.0100, L504.2610, L501.5200, L506.0200, L3410.9992, L101.9900, L3100.1350, L3200.1200, L503.6550, L3200.0500, L501.6710 #### [facility] [address] [place], [address] ALT [Catalytic activity/Vol] 9 U/L Normal <=34 [facility] Comment on above: Performed By: #### L 503.0106, L500.4050, L501.1400, L400.0001, L503.6030, L3000.0800, L100.9950, L3890.6006, L501.5101, L100.0100, L504.2610, L501.5200, L506.0200, L3410.9992, L101.9900, L3100.1350, L3200.1200, L503.6550, L3200.0500, L501.6710 #### [facility] Laboratory [facility] [place], [address] AST [Catalytic activity/Vol] 17 U/L Normal <=31 [facility] Comment on above: Performed By: #### L 503.0106, L500.4050, L501.1400, L400.0001, L503.6030, L3000.0800, L100.9950, L3890.6006, L501.5101, L100.0100, L504.2610, L501.5200, L506.0200, L3410.9992, L101.9900, L3100.1350, L3200.1200, L503.6550, L3200.0500, L501.6710 #### [facility] [address] [facility] [place], [place], [id number] [phone] Bilirubin [Mass/Vol] 0.60 mg/dL Normal 0.00-1.30 [facility] Comment on above: Performed By: #### L 503.0106, L500.4050, L501.1400, L400.0001, L503.6030, L3000.0800, L100.9950, L3890.6006, L501.5101, L100.0100, L504.2610, L501.5200, L506.0200, L3410.9992, L101.9900, L3100.1350, L3200.1200, L503.6550, L3200.0500, L501.6710 #### [facility] [address] [facility] [place], [place], [id number] [phone] Bilirubin.direct [Mass/Vol] 0.33 mg/dL High 0.00-0.3 0 [facility] Comment on above: Performed By: #### L 503.0106, L500.4050, L501.1400, L400.0001, L503.6030, L3000.0800, L100.9950, L3890.6006, L501.5101, L100.0100, L504.2610, L501.5200, L506.0200, L3410.9992, L101.9900, L3100.1350, L3200.1200, L503.6550, L3200.0500, L501.6710 #### [facility] [address] [facility] [place], [place], [id number] [phone] Globulin (S) [Mass/Vol] 3.7 g/dL Normal 2.2-4.2 [facility] Comment on above: Performed By: #### L 503.0106, L500.4050, L501.1400, L400.0001, L503.6030, L3000.0800, L100.9950, L3890.6006, L501.5101, L100.0100, L504.2610, L501.5200, L506.0200, L3410.9992, L101.9900, L3100.1350, L3200.1200, L503.6550, L3200.0500, L501.6710 #### [facility] [address] [facility] [place], [place], [id number] (137) T PROT 8.6 g/dL High 5.9-8.4 [facility] Comment on above: Performed By: #### L 503.0106, L500.4050, L501.1400, L400.0001, L503.6030, L3000.0800, L100.9950, L3890.6006, L501.5101, L100.0100, L504.2610, L501.5200, L506.0200, L3410.9992, L101.9900, L3100.1350, L3200.1200, L503.6550, L3200.0500, L501.6710 #### [facility] Laboratory [address] [facility] [place], [place], [id number] MCV (mean corpuscular volume ) determinationOrdered By: Berlin Wilson on 08-31-2025 MCV (RBC) [Entitic vol] 80.8 fL Low 81-99 [facility] Mean corpuscular hemoglobin (MCH) determinationOrdered By: Berlin Wilson on 08-31-2025 MCH (RBC) [Entitic mass] 26.5 pg Low 27.0-32.0 [facility] Mean corpuscular hemoglobin concentration (MCHC) determinationOrdered By: Berlin Wilson on 08-31-2025 MCHC (RBC) [Mass/Vol] 32.8 g/dL 32-36 [facility] Mean platelet volume determi nationOrdered By: Berlin Wilson on 08-31-2025 Platelet mean volume (Bld) [Entitic vol] 10.1 fL 6.2-12.0 [facility] Microscopic analysis of urin e for red blood cells (RBC)Ordered By: Berlin Wilson on 08-31-2025 Microscopic analysis of urine for red blood cells (RBC) 0 SEEN /hpf 0-5 [facility] Monocyte percentageOrdered B y: Berlin Wilson on 08-31-2025 Monocytes/100 WBC (Bld) 6.7 % 0-10 [facility] Mucus LM Ql (Urine sed)Order ed By: Berlin Wilson on 08-31-2025 Mucus Ql (Urine sed) 0 SEEN /hpf [facility] Neutrophil percentageOrdered By: Berlin Wilson on 08-31-2025 Neutrophils/100 WBC (Bld) 72.5 % High 47-70 [facility] Nitrite Test strip Ql (U)Ord ered By: Berlin Wilson on 08-31-2025 Nitrite Ql (U) Negative Negative [facility] No Panel InformationOrdered By: Berlin Wilson on 08-31-2025 17 U/L <32 [facility] Nucleated red blood cell per centageOrdered By: Berlin Wilson on 08-31-2025 Nucleated RBC/100 WBC (Bld) [Ratio] 0 % 0-5 [facility] Partial Thromboplast Timeon 08-31-2025 aPTT Coag (Bld) [Time] 27.1 s Normal 24.1-36.2 [facility] Comment on above: Performed By: #### L 503.0106, L500.4050, L501.1400, L400.0001, L503.6030, L3000.0800, L100.9950, L3890.6006, L501.5101, L100.0100, L504.2610, L501.5200, L506.0200, L3410.9992, L101.9900, L3100.1350, L3200.1200, L503.6550, L3200.0500, L501.6710 #### [facility] Laboratory [facility] [place], [address] Platelet countOrdered By: Romeo Wilson on 08-31-2025 Platelets (Bld) [#/Vol] 240 10*3/uL 150-450 [facility] Protein Test strip Ql (U)Ord ered By: Berlin Wilson on 08-31-2025 Protein Ql (U) 100 mg/dl High Negative [facility] Prothrombin Time w/INRon INR Coag (PPP) [Relative time] 1.3 {INR} Normal [facility] Comment on above: Performed By: #### L 503.0106, L500.4050, L501.1400, L400.0001, L503.6030, L3000.0800, L100.9950, L3890.6006, L501.5101, L100.0100, L504.2610, L501.5200, L506.0200, L3410.9992, L101.9900, L3100.1350, L3200.1200, L503.6550, L3200.0500, L501.6710 #### [facility] Laboratory [address] [place], [place], [id number] PT Coag (PPP) [Time] 16.0 s High 11.7-14.9 [facility] Comment on above: Performed By: #### L 503.0106, L500.4050, L501.1400, L400.0001, L503.6030, L3000.0800, L100.9950, L3890.6006, L501.5101, L100.0100, L504.2610, L501.5200, L506.0200, L3410.9992, L101.9900, L3100.1350, L3200.1200, L503.6550, L3200.0500, L501.6710 #### [facility] [address] [place], [place], [id number] Prothrombin timeOrdered By: Berlin Wilson on 08-31-2025 PT Coag (PPP) [Time] 16.0 s High 11.7-14.9 [facility] RBC Auto (Bld) [#/Vol]Ordere d By: Berlin Wilson on 08-31-2025 RBC (Bld) [#/Vol] 4.11 10*6/uL Low 4.2-5.4 [facility] Serum globulin measurementOr dered By: Berlin Wilson on 08-31-2025 Globulin (S) [Mass/Vol] 3.7 g/dL 2.2-4.2 [facility] Serum or plasma alanine cueto otransferase (ALT) measurementOrdered By: Berlin Wilson on 08-31-2025 ALT [Catalytic activity/Vol] 9 U/L <35 [facility] Serum or plasma albumin sandy urement (mass/volume)Ordered By: Berlin Wilson on 08-31-2025 Albumin [Mass/Vol] 4.9 g/dL 3.5-5.0 [facility] Serum or plasma alkaline rebecca sphatase measurementOrdered By: Berlin Wilson on 08-31-2025 ALP [Catalytic activity/Vol] 186 U/L High 35-104 [facility] Squamous epithelial cells de tection in urine sediment by light microscopyOrdered By: Berlin Wilson on 08-31-2025 Epithelial cells.squamous LM Ql (Urine sed) 10-25 SEEN /hpf 5-10 [facility] Total proteinOrdered By: Brock Wilson on 08-31-2025 Protein [Mass/Vol] 8.6 g/dL High 5.9-8.4 [facility] Troponin T HS 2 HRon 025 Trop T High Sen 12 ng/L Normal <=14 [facility] Comment on above: Performed By: #### L 503.0106, L500.4050, L501.1400, L400.0001, L503.6030, L3000.0800, L100.9950, L3890.6006, L501.5101, L100.0100, L504.2610, L501.5200, L506.0200, L3410.9992, L101.9900, L3100.1350, L3200.1200, L503.6550, L3200.0500, L501.6710 #### [facility] Laboratory [address] [place], [place], [id number] Troponin T.cardiac [Mass/vol ume] in Serum or Plasma by High sensitivity methodOrdered By: Berlin Wilson on 08-31-2025 Troponin T.cardiac High sensitivity method [Mass/Vol] 12 ng/L <14 [facility] Troponin T.cardiac High sensitivity method [Mass/Vol] 14 ng/L <14 [facility] Urinalysis, Completeon 08-31 AMORPHOUS 1+ Normal [facility] Comment on above: Order Comment: Y Performed By: #### L 503.6005 #### [facility] Laboratory [address] [place], [address] BACTERIA RARE Normal None Seen [facility] Comment on above: Order Comment: Y Performed By: #### L 503.6005 #### [facility] Laboratory [address] [place], [address] EPI,SQUAMOUS 10-25 SEEN Normal 5-10 [facility] Comment on above: Order Comment: Y Performed By: #### L 503.6005 #### [facility] Laboratory [address] [place], [address] WBC 0-5 SEEN Normal 0-5 [facility] Comment on above: Order Comment: Y Performed By: #### L 503.6005 #### [facility] Laboratory [address] [place], [address] Mucus Ql (Urine sed) 0 SEEN Normal [facility] Comment on above: Order Comment: Y Performed By: #### L 503.6005 #### [facility] [address] [place], [address] RBC 0 SEEN Normal 0-5 [facility] Comment on above: Order Comment: Y Performed By: #### L 503.6005 #### [facility] [address] [place], [address] Urine clarityOrdered By: Brock Wilson on 08-31-2025 Clarity (U) Sl. Cloudy Clear [facility] Urine color determinationOrd ered By: Berlin Wilson on 08-31-2025 Color (U) Yellow Yellow [facility] Urine glucose detectionOrder ed By: Berlin Wilson on 08-31-2025 Glucose Ql (U) Normal mg/dl Normal [facility] Urine leukocyte esterase det ection by dipstickOrdered By: Berlin Wilson on 08-31-2025 Leukocyte esterase Test strip Ql (U) 25 /ul High Negative [facility] Urine pHOrdered By: Berlin krishna on 08-31-2025 pH (U) 5.0 [pH] 5.0 - 8.0 [facility] Urine sediment bacteria coun t by microscopy (number/high power field)Ordered By: Berlin Wilson on 08-31-2025 Bacteria LM.HPF (Urine sed) [#/Area] RARE /hpf None Seen [facility] Urine specific gravity measu rementOrdered By: Berlin Wilson on 08-31-2025 Specific gravity (U) [Rel density] 1.025 1.002-1.030 [facility] Urine urobilinogen measureme ntOrdered By: Berlin Wilson on 08-31-2025 Urobilinogen Ql (U) 1 mg/dl High Normal [facility] White blood cell (WBC) count Ordered By: Berlin Wilson on 08-31-2025 WBC (Bld) [#/Vol] 4.9 10*3/uL 4.4-11.0 [facility] White blood cell countOrdere d By: Berlin Wilson on 08-31-2025 White blood cell count 0-5 SEEN /hpf 0-5 [facility] Stool Occult Blood iFOBon STOB Positive Normal [facility] Comment on above: Performed By: #### L 503.0106, L500.4050, L501.1400, L400.0001, L503.6030, L3000.0800, L100.9950, L3890.6006, L501.5101, L100.0100, L504.2610, L501.5200, L506.0200, L3410.9992, L101.9900, L3100.1350, L3200.1200, L503.6550, L3200.0500, L501.6710 #### [facility] Laboratory [address] [place], [address] Stool gastrointestinal hemog lobin detection by immunologic methodOrdered By: Glen Chapman on 08-30-2025 Lower GI hemoglobin IA Ql (Stl) Positive Abnormal [facility] Erythropoietinon 08-28-2025 ERYTHROPOIETIN 9.5 mIU/mL Normal 2.6-18.5 [facility] Comment on above: Result Comment: [employer] DxI 800 Immunoassay System Values obtained with different assay methods or kits cannot be used interchangeably. Results cannot be interpreted as absolute evidence of the presence or absence of malignant disease. Performed By: #### L 503.6005 #### [facility] Laboratory [address] [place], [address] Hepatitis B/C Profile VIIIon 08-28-2025 COMMENT Comment Normal . [facility] Comment on above: Result Comment: Not infected with HCV unless early or acute infection is suspected (which may be delayed in an immunocompromised individual), or other evidence exists to indicate HCV infection. Performed By: #### L 503.6005 #### [facility] [address] [place], [address] HEP B CORE,TOT Negative Normal Negative [facility] Comment on above: Performed By: #### L 503.6005 #### [facility] [address] [place], [address] Hep B Micheal AB Non-Reactive Normal . [facility] Comment on above: Result Comment: Non Reactive: Not immune to HBV infection. Anti-HBs undetectable or less than 10 mIU/mL. Reactive: Evidence of HBV immunity. Anti-HBs levels greater than 10 mIU/mL. Performed By: #### L 503.6005 #### [facility] [address] [place], [address] HEP B SURF AG Negative Normal Negative [facility] Comment on above: Performed By: #### L 503.6005 #### [facility] Laboratory [address] [place], [address] HEP C Antibody Non-Reactive Normal Non Reactive [facility] Comment on above: Performed By: #### L 503.6005 #### [facility] [address] [place], [place], [id number] HEPATITIS INTER Comment Normal . [facility] Comment on above: Result Comment: [...] infection. Performed By: #### L 503.6005 #### [facility] Laboratory [facility] [place], [address] IgG Subclasseson 08-28-2025 IgG, SUBCLASS 1 334 mg/dL Normal 248-810 [facility] Comment on above: Performed By: #### L 503.0106, L500.4050, L501.1400, L400.0001, L503.6030, L3000.0800, L100.9950, L3890.6006, L501.5101, L100.0100, L504.2610, L501.5200, L506.0200, L3410.9992, L101.9900, L3100.1350, L3200.1200, L503.6550, L3200.0500, L501.6710 #### [facility] Laboratory [address] [place], [address] IgG, SUBCLASS 2 281 mg/dL Normal 130-555 [facility] Comment on above: Performed By: #### L 503.0106, L500.4050, L501.1400, L400.0001, L503.6030, L3000.0800, L100.9950, L3890.6006, L501.5101, L100.0100, L504.2610, L501.5200, L506.0200, L3410.9992, L101.9900, L3100.1350, L3200.1200, L503.6550, L3200.0500, L501.6710 #### [facility] [address] [facility] [address] [place], [address] IgG, SUBCLASS 3 51 mg/dL Normal 15-102 [facility] Comment on above: Performed By: #### L 503.0106, L500.4050, L501.1400, L400.0001, L503.6030, L3000.0800, L100.9950, L3890.6006, L501.5101, L100.0100, L504.2610, L501.5200, L506.0200, L3410.9992, L101.9900, L3100.1350, L3200.1200, L503.6550, L3200.0500, L501.6710 #### [facility] [address] [facility] [place], [address] IgG, SUBCLASS 4 3 mg/dL Normal 2-96 [facility] Comment on above: Performed By: #### L 503.0106, L500.4050, L501.1400, L400.0001, L503.6030, L3000.0800, L100.9950, L3890.6006, L501.5101, L100.0100, L504.2610, L501.5200, L506.0200, L3410.9992, L101.9900, L3100.1350, L3200.1200, L503.6550, L3200.0500, L501.6710 #### [facility] [address] [place], [place], [id number] (253) IGG,QUANT 718 mg/dL Normal 586-1602 [facility] Comment on above: Performed By: #### L 503.0106, L500.4050, L501.1400, L400.0001, L503.6030, L3000.0800, L100.9950, L3890.6006, L501.5101, L100.0100, L504.2610, L501.5200, L506.0200, L3410.9992, L101.9900, L3100.1350, L3200.1200, L503.6550, L3200.0500, L501.6710 #### [facility] [address] [facility] [address] [place], [place], [id number] (216) Immunoglobulins G/A/Mon 10- IMMUNOGLOB A QN 72 mg/dL Low 87-352 [facility] Comment on above: Order Comment: N Performed By: #### L 503.0106, L500.4050, L501.1400, L400.0001, L503.6030, L3000.0800, L100.9950, L3890.6006, L501.5101, L100.0100, L504.2610, L501.5200, L506.0200, L3410.9992, L101.9900, L3100.1350, L3200.1200, L503.6550, L3200.0500, L501.6710 #### [facility] [address] [facility] [address] [place], [place], [phone] (103) IMMUNOGLOB M QN 49 mg/dL Normal 26-217 [facility] Comment on above: Order Comment: N Performed By: #### L 503.0106, L500.4050, L501.1400, L400.0001, L503.6030, L3000.0800, L100.9950, L3890.6006, L501.5101, L100.0100, L504.2610, L501.5200, L506.0200, L3410.9992, L101.9900, L3100.1350, L3200.1200, L503.6550, L3200.0500, L501.6710 #### [facility] Laboratory [address] [place], [address] L3410.9992on 08-28-2025 [facility]. COMMENT Normal . [facility] Comment on above: Order Comment: Y Result Comment: Test Ordered: [id number] ANIRUDH, IFA Rfx 9 Frantz Multiplex ANIRUDH [...] detected by ANIRUDH IFA methodology. Performed at: [address] [id number] Optical Lathe Operator: Preston Ashley PhD, Phone: [phone] Performed By: #### L 503.6005 #### [facility] Laboratory [address] [facility] [place], [place], [id number] L501.5101on 08-28-2025 GGTP 62 IU/L Abnormal 0-60 [facility] Comment on above: Result Comment: Perf ormed at: [address] [id number] Optical Lathe Operator: Preston Ashley PhD, Phone: [phone] Performed By: #### L 503.6005 #### [facility] Laboratory [address] [place], [place], [id number] Absolute lymphocyte countOrd ered By: Glen Chapman on 08-27-2025 Lymphocytes Auto (Unsp spec) [#/Vol] 1.29 10*3/uL 0.83-4.51 [facility] Absolute neutrophil countOrd ered By: Glen Statonrito on 08-27-2025 Neutrophils (Bld) [#/Vol] 5.3 10*3/uL 2.0-7.7 [facility] Anion gap in Serum or Plasma Ordered By: Glen Statonrito on 08-27-2025 Anion gap [Moles/Vol] 21 mmol/L High 5-15 [facility] Automated lymphocyte count a s percentage of total leukocytesOrdered By: Glen Ari on 08-27-2025 Lymphocytes/100 WBC Auto (Unsp spec) 17.4 % Low 19-41 [facility] BUN/creatinine ratioOrdered By: Glen Chapman on 08-27-2025 Urea nitrogen/Creatinine [Mass ratio] 16.9 mg/mg 09-03 [facility] Comment on above: Previous reported re sult: 16.8 RATIOEdited by: AUTOINS on 08/27/25:1520 AMENDED REPORT 08/27/25 1520 BUN/CRE previously reported as: 16.8 RATIO Basophil percentageOrdered B y: Glen Ari on 08-27-2025 Basophils/100 WBC (Bld) 0.4 % 0-1 W [facility] Bilirubin Test strip Ql (U)O rdered By: Glen Statonrito on 08-27-2025 Bilirubin Ql (U) 1 mg/dL High Negative [facility] Comment on above: COLOR OF URINE MAY A FFECT DIPSTICK RESULTS. Bilirubin, totalOrdered By: Glen Chapman on 08-27-2025 Bilirubin [Mass/Vol] 0.59 mg/dL 0.00-1.30 [facility] CBC W/Diff, Automatedon 08-15 Absolute Lymph 1.29 X10 3/uL Normal 0.83-4.51 [facility] Comment on above: Performed By: #### L 503.0106, L500.4050, L501.1400, L400.0001, L503.6030, L3000.0800, L100.9950, L3890.6006, L501.5101, L100.0100, L504.2610, L501.5200, L506.0200, L3410.9992, L101.9900, L3100.1350, L3200.1200, L503.6550, L3200.0500, L501.6710 #### [facility] [address] [facility] [place], [place], [phone] (892) Absolute Neut 5.3 X10 3/uL Normal 2.0-7.7 [facility] Comment on above: Performed By: #### L 503.0106, L500.4050, L501.1400, L400.0001, L503.6030, L3000.0800, L100.9950, L3890.6006, L501.5101, L100.0100, L504.2610, L501.5200, L506.0200, L3410.9992, L101.9900, L3100.1350, L3200.1200, L503.6550, L3200.0500, L501.6710 #### [facility] [address] [place] [place], [address] (321 Basophils/100 WBC (Bld) 0.4 % Normal 0-1 [facility] Comment on above: Performed By: #### L 503.0106, L500.4050, L501.1400, L400.0001, L503.6030, L3000.0800, L100.9950, L3890.6006, L501.5101, L100.0100, L504.2610, L501.5200, L506.0200, L3410.9992, L101.9900, L3100.1350, L3200.1200, L503.6550, L3200.0500, L501.6710 #### [facility] [address] [place] [place], [address] Eosinophils/100 WBC (Bld) 2.2 % Normal 0-5 [facility] Comment on above: Performed By: #### L 503.0106, L500.4050, L501.1400, L400.0001, L503.6030, L3000.0800, L100.9950, L3890.6006, L501.5101, L100.0100, L504.2610, L501.5200, L506.0200, L3410.9992, L101.9900, L3100.1350, L3200.1200, L503.6550, L3200.0500, L501.6710 #### [facility] [address] [place], [address] Erythrocyte distribution width (RBC) [Ratio] 13.8 % Normal 11.6-14.6 [facility] Comment on above: Performed By: #### L 503.0106, L500.4050, L501.1400, L400.0001, L503.6030, L3000.0800, L100.9950, L3890.6006, L501.5101, L100.0100, L504.2610, L501.5200, L506.0200, L3410.9992, L101.9900, L3100.1350, L3200.1200, L503.6550, L3200.0500, L501.6710 #### [facility] [address] [place] [place], [address] Hematocrit (Bld) [Volume fraction] 33.2 % Low 37-47 [facility] Comment on above: Performed By: #### L 503.0106, L500.4050, L501.1400, L400.0001, L503.6030, L3000.0800, L100.9950, L3890.6006, L501.5101, L100.0100, L504.2610, L501.5200, L506.0200, L3410.9992, L101.9900, L3100.1350, L3200.1200, L503.6550, L3200.0500, L501.6710 #### [facility] [address] [place], [place], [phone] (036) Hemoglobin (Bld) [Mass/Vol] 11.3 g/dL Low 12.0-15. 0 [facility] Comment on above: Performed By: #### L 503.0106, L500.4050, L501.1400, L400.0001, L503.6030, L3000.0800, L100.9950, L3890.6006, L501.5101, L100.0100, L504.2610, L501.5200, L506.0200, L3410.9992, L101.9900, L3100.1350, L3200.1200, L503.6550, L3200.0500, L501.6710 #### [facility] [address] [place], [address] IG% 2.200 High 0.0-0.9 [facility] Comment on above: Result Comment: IG% - Immature Granulocytes (promyelocytes, myelocytes and metamyelocytes) > 1% indicates that a LEFT SHIFT is Present. Performed By: #### L 503.0106, L500.4050, L501.1400, L400.0001, L503.6030, L3000.0800, L100.9950, L3890.6006, L501.5101, L100.0100, L504.2610, L501.5200, L506.0200, L3410.9992, L101.9900, L3100.1350, L3200.1200, L503.6550, L3200.0500, L501.6710 #### [facility] [address] [place], [address] Lymphocytes/100 WBC (Bld) 17.4 % Low 19-41 [facility] Comment on above: Performed By: #### L 503.0106, L500.4050, L501.1400, L400.0001, L503.6030, L3000.0800, L100.9950, L3890.6006, L501.5101, L100.0100, L504.2610, L501.5200, L506.0200, L3410.9992, L101.9900, L3100.1350, L3200.1200, L503.6550, L3200.0500, L501.6710 #### [facility] [address] [place], [address] MCH (RBC) [Entitic mass] 27.2 pg Normal 27.0-32.0 [facility] Comment on above: Performed By: #### L 503.0106, L500.4050, L501.1400, L400.0001, L503.6030, L3000.0800, L100.9950, L3890.6006, L501.5101, L100.0100, L504.2610, L501.5200, L506.0200, L3410.9992, L101.9900, L3100.1350, L3200.1200, L503.6550, L3200.0500, L501.6710 #### [facility] [address] [place] [place], [address] MCHC (RBC) [Mass/Vol] 34.0 g/dL Normal 32-36 [facility] Comment on above: Performed By: #### L 503.0106, L500.4050, L501.1400, L400.0001, L503.6030, L3000.0800, L100.9950, L3890.6006, L501.5101, L100.0100, L504.2610, L501.5200, L506.0200, L3410.9992, L101.9900, L3100.1350, L3200.1200, L503.6550, L3200.0500, L501.6710 #### [facility] [address] [place], [address] MCV (RBC) [Entitic vol] 80.0 fL Low 81-99 [facility] Comment on above: Performed By: #### L 503.0106, L500.4050, L501.1400, L400.0001, L503.6030, L3000.0800, L100.9950, L3890.6006, L501.5101, L100.0100, L504.2610, L501.5200, L506.0200, L3410.9992, L101.9900, L3100.1350, L3200.1200, L503.6550, L3200.0500, L501.6710 #### [facility] [address] [place], [address] Monocytes/100 WBC (Bld) 6.2 % Normal 0-10 [facility] Comment on above: Performed By: #### L 503.0106, L500.4050, L501.1400, L400.0001, L503.6030, L3000.0800, L100.9950, L3890.6006, L501.5101, L100.0100, L504.2610, L501.5200, L506.0200, L3410.9992, L101.9900, L3100.1350, L3200.1200, L503.6550, L3200.0500, L501.6710 #### [facility] [address] [place], [place], [phone] (678) Neutrophils/100 WBC (Bld) 71.6 % High 47-70 [facility] Comment on above: Performed By: #### L 503.0106, L500.4050, L501.1400, L400.0001, L503.6030, L3000.0800, L100.9950, L3890.6006, L501.5101, L100.0100, L504.2610, L501.5200, L506.0200, L3410.9992, L101.9900, L3100.1350, L3200.1200, L503.6550, L3200.0500, L501.6710 #### [facility] [address] [place], [address] Nucleated RBC (Bld) [#/Vol] 0 10*3/uL Normal 0-5 [facility] Comment on above: Performed By: #### L 503.0106, L500.4050, L501.1400, L400.0001, L503.6030, L3000.0800, L100.9950, L3890.6006, L501.5101, L100.0100, L504.2610, L501.5200, L506.0200, L3410.9992, L101.9900, L3100.1350, L3200.1200, L503.6550, L3200.0500, L501.6710 #### [facility] [address] [place], [address] Platelet mean volume (Bld) [Entitic vol] 9.5 fL Normal 6.2-12.0 [facility] Comment on above: Performed By: #### L 503.0106, L500.4050, L501.1400, L400.0001, L503.6030, L3000.0800, L100.9950, L3890.6006, L501.5101, L100.0100, L504.2610, L501.5200, L506.0200, L3410.9992, L101.9900, L3100.1350, L3200.1200, L503.6550, L3200.0500, L501.6710 #### [facility] [address] [place], [address] Platelets (Bld) [#/Vol] 333 10*3/uL Normal 150-450 [facility] Comment on above: Performed By: #### L 503.0106, L500.4050, L501.1400, L400.0001, L503.6030, L3000.0800, L100.9950, L3890.6006, L501.5101, L100.0100, L504.2610, L501.5200, L506.0200, L3410.9992, L101.9900, L3100.1350, L3200.1200, L503.6550, L3200.0500, L501.6710 #### [facility] [address] [place], [place], [phone] (879) RBC (Bld) [#/Vol] 4.15 10*6/uL Low 4.2-5.4 [facility] Comment on above: Performed By: #### L 503.0106, L500.4050, L501.1400, L400.0001, L503.6030, L3000.0800, L100.9950, L3890.6006, L501.5101, L100.0100, L504.2610, L501.5200, L506.0200, L3410.9992, L101.9900, L3100.1350, L3200.1200, L503.6550, L3200.0500, L501.6710 #### [facility] [address] [place], [address] RDW SD 39.8 fl Normal 35.1-43.9 [facility] Comment on above: Performed By: #### L 503.0106, L500.4050, L501.1400, L400.0001, L503.6030, L3000.0800, L100.9950, L3890.6006, L501.5101, L100.0100, L504.2610, L501.5200, L506.0200, L3410.9992, L101.9900, L3100.1350, L3200.1200, L503.6550, L3200.0500, L501.6710 #### [facility] [address] [place], [place], [phone] (625) WBC (Bld) [#/Vol] 7.4 10*3/uL Normal 4.4-11.0 [facility] Comment on above: Performed By: #### L 503.0106, L500.4050, L501.1400, L400.0001, L503.6030, L3000.0800, L100.9950, L3890.6006, L501.5101, L100.0100, L504.2610, L501.5200, L506.0200, L3410.9992, L101.9900, L3100.1350, L3200.1200, L503.6550, L3200.0500, L501.6710 #### [facility] [address] [place], [place], [address] CRPon 08-27-2025 C-REACTIVE PROT 18.30 mg/L High 0.0-3.0 [facility] Comment on above: Performed By: #### L 503.6005 #### [facility] [address] [place], [place], [id number] Carbon dioxide, total [Moles /volume] in Central venous bloodOrdered By: Glen Chapman on 08-27-2025 CO2 [Moles/Vol] 20.0 mmol/L Low 21.0-32.0 [facility] Comment on above: Previous reported re sult: 19.6 mmol/LEdited by: CRISTA on 08/27/25:1520 AMENDED REPORT 08/27/25 1520 CO2 previously reported as: 19.6 L mmol/L Chloride assayOrdered By: Jaimee Chapman on 08-27-2025 Chloride [Moles/Vol] 90 mmol/L Low 98-108 [facility] Comprehensive Metabolic Prof ilon 08-27-2025 Albumin [Mass/Vol] 4.6 g/dL Normal 3.5-5.0 [facility] Comment on above: Performed By: #### L 503.0106, L500.4050, L501.1400, L400.0001, L503.6030, L3000.0800, L100.9950, L3890.6006, L501.5101, L100.0100, L504.2610, L501.5200, L506.0200, L3410.9992, L101.9900, L3100.1350, L3200.1200, L503.6550, L3200.0500, L501.6710 #### [facility] [address] [place], [place], [phone] Albumin/Globulin [Mass ratio] 1.2 {ratio} Normal 0.9-2.4 [facility] Comment on above: Result Comment: AMENDED REPORT 08/27/251519 A/G previously reported as: 1.2 RATIO Performed By: #### L 503.0106, L500.4050, L501.1400, L400.0001, L503.6030, L3000.0800, L100.9950, L3890.6006, L501.5101, L100.0100, L504.2610, L501.5200, L506.0200, L3410.9992, L101.9900, L3100.1350, L3200.1200, L503.6550, L3200.0500, L501.6710 #### [facility] [address] [place], [place], [phone] ALK PHOS 194 U/L High 35-104 [facility] Comment on above: Result Comment: AMENDED REPORT 08/27/251519 ALK P previously reported as: 196 H U/L Performed By: #### L 503.0106, L500.4050, L501.1400, L400.0001, L503.6030, L3000.0800, L100.9950, L3890.6006, L501.5101, L100.0100, L504.2610, L501.5200, L506.0200, L3410.9992, L101.9900, L3100.1350, L3200.1200, L503.6550, L3200.0500, L501.6710 #### [facility] [address] [place], [place], [phone] ALT [Catalytic activity/Vol] 8 U/L Normal <=34 [facility] Comment on above: Result Comment: AMENDED REPORT 08/27/251519 ALT previously reported as: 9 U/L Performed By: #### L 503.0106, L500.4050, L501.1400, L400.0001, L503.6030, L3000.0800, L100.9950, L3890.6006, L501.5101, L100.0100, L504.2610, L501.5200, L506.0200, L3410.9992, L101.9900, L3100.1350, L3200.1200, L503.6550, L3200.0500, L501.6710 #### [facility] [address] [place], [address] AST [Catalytic activity/Vol] 17 U/L Normal <=31 [facility] Comment on above: Result Comment: AMENDED REPORT 08/27/25 1520 AST previously reported as: 19 U/L Performed By: #### L 503.0106, L500.4050, L501.1400, L400.0001, L503.6030, L3000.0800, L100.9950, L3890.6006, L501.5101, L100.0100, L504.2610, L501.5200, L506.0200, L3410.9992, L101.9900, L3100.1350, L3200.1200, L503.6550, L3200.0500, L501.6710 #### [facility] [address] [place], [place], [id number] Bilirubin [Mass/Vol] 0.59 mg/dL Normal 0.00-1.30 [facility] Comment on above: Performed By: #### L 503.0106, L500.4050, L501.1400, L400.0001, L503.6030, L3000.0800, L100.9950, L3890.6006, L501.5101, L100.0100, L504.2610, L501.5200, L506.0200, L3410.9992, L101.9900, L3100.1350, L3200.1200, L503.6550, L3200.0500, L501.6710 #### [facility] [address] [place], [address] BUN/CRE 16.9 RATIO Normal 10-20 [facility] Comment on above: Result Comment: AMENDED REPORT 08/27/25 1520 BUN/CRE previously reported as: 16.8 RATIO Performed By: #### L 503.0106, L500.4050, L501.1400, L400.0001, L503.6030, L3000.0800, L100.9950, L3890.6006, L501.5101, L100.0100, L504.2610, L501.5200, L506.0200, L3410.9992, L101.9900, L3100.1350, L3200.1200, L503.6550, L3200.0500, L501.6710 #### [facility] [address] [place], [place], [phone] Calcium [Mass/Vol] 10.5 mg/dL Normal 7.6-11.0 [facility] Comment on above: Performed By: #### L 503.0106, L500.4050, L501.1400, L400.0001, L503.6030, L3000.0800, L100.9950, L3890.6006, L501.5101, L100.0100, L504.2610, L501.5200, L506.0200, L3410.9992, L101.9900, L3100.1350, L3200.1200, L503.6550, L3200.0500, L501.6710 #### [facility] [address] [place], [place], [id number] Chloride [Moles/Vol] 90 mmol/L Low 98-108 [facility] Comment on above: Performed By: #### L 503.0106, L500.4050, L501.1400, L400.0001, L503.6030, L3000.0800, L100.9950, L3890.6006, L501.5101, L100.0100, L504.2610, L501.5200, L506.0200, L3410.9992, L101.9900, L3100.1350, L3200.1200, L503.6550, L3200.0500, L501.6710 #### [facility] [address] [place] [place], [address] CO2 [Moles/Vol] 20.0 mmol/L Low 21.0-32.0 [facility] Comment on above: Result Comment: AMENDED REPORT 08/27/251519 CO2 previously reported as: 19.6 L mmol/L Performed By: #### L 503.0106, L500.4050, L501.1400, L400.0001, L503.6030, L3000.0800, L100.9950, L3890.6006, L501.5101, L100.0100, L504.2610, L501.5200, L506.0200, L3410.9992, L101.9900, L3100.1350, L3200.1200, L503.6550, L3200.0500, L501.6710 #### [facility] [address] [place], [place], [id number] Creatinine [Mass/Vol] 1.58 mg/dL High 0.70-1.20 [facility] Comment on above: Result Comment: AMENDED REPORT 08/27/251519 CREAT,SERUM previously reported as: 1.65 H mg/dL Performed By: #### L 503.0106, L500.4050, L501.1400, L400.0001, L503.6030, L3000.0800, L100.9950, L3890.6006, L501.5101, L100.0100, L504.2610, L501.5200, L506.0200, L3410.9992, L101.9900, L3100.1350, L3200.1200, L503.6550, L3200.0500, L501.6710 #### [facility] [address] [place], [address] ECRCL 49.49 ml/min Low 50-250 [facility] Comment on above: Result Comment: AMENDED REPORT 08/27/251519 Estimated CRCL previously reported as: 47.39 L ml/min Performed By: #### L 503.0106, L500.4050, L501.1400, L400.0001, L503.6030, L3000.0800, L100.9950, L3890.6006, L501.5101, L100.0100, L504.2610, L501.5200, L506.0200, L3410.9992, L101.9900, L3100.1350, L3200.1200, L503.6550, L3200.0500, L501.6710 #### [facility] [address] [place], [place], [id number] [place] 21 High 5-15 [facility] Comment on above: Performed By: #### L 503.0106, L500.4050, L501.1400, L400.0001, L503.6030, L3000.0800, L100.9950, L3890.6006, L501.5101, L100.0100, L504.2610, L501.5200, L506.0200, L3410.9992, L101.9900, L3100.1350, L3200.1200, L503.6550, L3200.0500, L501.6710 #### [facility] [address] [place], [place], [phone] Globulin (S) [Mass/Vol] 3.7 g/dL Normal 2.2-4.2 [facility] Comment on above: Result Comment: AMENDED REPORT 08/27/251519 GLOB previously reported as: 3.8 g/dL Performed By: #### L 503.0106, L500.4050, L501.1400, L400.0001, L503.6030, L3000.0800, L100.9950, L3890.6006, L501.5101, L100.0100, L504.2610, L501.5200, L506.0200, L3410.9992, L101.9900, L3100.1350, L3200.1200, L503.6550, L3200.0500, L501.6710 #### [facility] [address] [place], [address] Glucose [Mass/Vol] 161 mg/dL High 70-99 [facility] Comment on above: Result Comment: AMENDED REPORT 08/27/25 1520 GLU previously reported as: 165 H mg/dL Performed By: #### L 503.0106, L500.4050, L501.1400, L400.0001, L503.6030, L3000.0800, L100.9950, L3890.6006, L501.5101, L100.0100, L504.2610, L501.5200, L506.0200, L3410.9992, L101.9900, L3100.1350, L3200.1200, L503.6550, L3200.0500, L501.6710 #### [facility] [address] [place], [address] Potassium [Moles/Vol] 4.0 mmol/L Normal 3.3-5.1 [facility] Comment on above: Performed By: #### L 503.0106, L500.4050, L501.1400, L400.0001, L503.6030, L3000.0800, L100.9950, L3890.6006, L501.5101, L100.0100, L504.2610, L501.5200, L506.0200, L3410.9992, L101.9900, L3100.1350, L3200.1200, L503.6550, L3200.0500, L501.6710 #### [facility] [address] [place], [place], [phone] Sodium [Moles/Vol] 131 mmol/L Low 133-145 [facility] Comment on above: Performed By: #### L 503.0106, L500.4050, L501.1400, L400.0001, L503.6030, L3000.0800, L100.9950, L3890.6006, L501.5101, L100.0100, L504.2610, L501.5200, L506.0200, L3410.9992, L101.9900, L3100.1350, L3200.1200, L503.6550, L3200.0500, L501.6710 #### [facility] [address] [facility] [place], [place], [id number] T PROT 8.2 g/dL Normal 5.9-8.4 [facility] Comment on above: Result Comment: AMENDED REPORT 08/27/251519 T PROT previously reported as: 8.4 g/dL Performed By: #### L 503.0106, L500.4050, L501.1400, L400.0001, L503.6030, L3000.0800, L100.9950, L3890.6006, L501.5101, L100.0100, L504.2610, L501.5200, L506.0200, L3410.9992, L101.9900, L3100.1350, L3200.1200, L503.6550, L3200.0500, L501.6710 #### [facility] [address] [place], [place], [id number] Urea nitrogen [Mass/Vol] 27 mg/dL High 4-19 [facility] Comment on above: Result Comment: AMENDED REPORT 08/27/251519 BUN previously reported as: 28 H mg/dL Performed By: #### L 503.0106, L500.4050, L501.1400, L400.0001, L503.6030, L3000.0800, L100.9950, L3890.6006, L501.5101, L100.0100, L504.2610, L501.5200, L506.0200, L3410.9992, L101.9900, L3100.1350, L3200.1200, L503.6550, L3200.0500, L501.6710 #### [facility] [address] [place], [place], [id number] Eosinophil percentageOrdered By: Glen Chapman on 08-27-2025 Eosinophils/100 WBC (Bld) 2.2 % 0-5 [facility] Erythrocyte Sed Rateon 08-27 SED RATE 63 mm/hr High 0-30 [facility] Comment on above: Performed By: #### L 503.0106, L500.4050, L501.1400, L400.0001, L503.6030, L3000.0800, L100.9950, L3890.6006, L501.5101, L100.0100, L504.2610, L501.5200, L506.0200, L3410.9992, L101.9900, L3100.1350, L3200.1200, L503.6550, L3200.0500, L501.6710 #### [facility] [address] [place], [place], [id number] Erythrocyte distribution wid th ratioOrdered By: Glen Chapman on 08-27-2025 Erythrocyte distribution width (RBC) [Ratio] 13.8 % 11.6-14.6 [facility] Erythrocyte distribution wid th standard deviationOrdered By: Glen Chapman on 08-27-2025 Erythrocyte distribution width (RBC) [Ratio] 39.8 fl 35.1-43.9 [facility] Erythrocyte sedimentation ra teOrdered By: Glen Chapman on 08-27-2025 ESR (Bld) [Velocity] 63 mm/h High 0-30 [facility] Ferritinon 08-27-2025 Ferritin [Mass/Vol] 872 ng/mL High 22-378 [facility] Comment on above: Result Comment: AMENDED REPORT 08/27/25 1520 FERRITIN previously reported as: 819 H ng/mL Performed By: #### L 503.0106, L500.4050, L501.1400, L400.0001, L503.6030, L3000.0800, L100.9950, L3890.6006, L501.5101, L100.0100, L504.2610, L501.5200, L506.0200, L3410.9992, L101.9900, L3100.1350, L3200.1200, L503.6550, L3200.0500, L501.6710 #### [facility] [address] [place] [place], [address] Folate [Mass/volume] in Seru m or PlasmaOrdered By: Glen Chapman on 08-27-2025 Folate [Mass/Vol] 15.90 ng/mL 4.60-34.80 [facility] Folates,Serum (Folic Acid)on 08-27-2025 FOLATES,SERUM 15.90 ng/mL Normal 4.60-34.80 [facility] Comment on above: Order Comment: N Performed By: #### L 503.0106, L500.4050, L501.1400, L400.0001, L503.6030, L3000.0800, L100.9950, L3890.6006, L501.5101, L100.0100, L504.2610, L501.5200, L506.0200, L3410.9992, L101.9900, L3100.1350, L3200.1200, L503.6550, L3200.0500, L501.6710 #### [facility] [address] [place] [place], [address] Gamma glutamyl transferase ( GGT) measurementOrdered By: Glen Chapman on 08-27-2025 Amylase [Catalytic activity/Vol] 62 U/L High 0-60 [facility] Comment on above: Performed at: [address] [id number] Director: Preston Ashley PhD, Phone: [phone] Glomerular filtration rate ( GFR) estimation/1.73 sq m using serum, plasma, or whole bOrdered By: Glen Chapman on 08-27-2025 GFR/1.73 sq M.predicted among non-blacks MDRD (S/P/Bld) [Vol rate/Area] 37 mL/min/{1.73_m2} Low >60 [facility] Comment on above: mL/min/1.73m2 CKD-EP I Creatinine Equation (2020) HIVon 08-27-2025 HIV Non-Reactive Normal Nonreactive [facility] Comment on above: Result Comment: Non- Reactive Reactive Repeatedly reactive samples must be confirmed according to CDC recommended confirmatory algorithms. The subresults for either HIVAG or AHIV can be used as an aid in the selection of the confirmation algorithm for reactive samples. Send out specimens with Reactive results to [facility] for confirmation. Order the HIV antibody detection and differentiation: #[id number] Performed By: #### L 503.6005 #### [facility] [place], [address] Hematocrit Auto (Bld) [Volum e fraction]Ordered By: Glen Chapman on 08-27-2025 Hematocrit (Bld) [Volume fraction] 33.2 % Low 37-47 [facility] Hemoglobin measurementOrdere d By: Glen Chapman on 08-27-2025 Hemoglobin (Bld) [Mass/Vol] 11.3 g/dL Low 12.0-15. 0 [facility] Immature granulocytes/100 WB C Auto (Bld)Ordered By: Glen Chapman on 08-27-2025 Immature granulocytes/100 WBC (Bld) 2.200 % High 0.0-0.9 [facility] Comment on above: IG% - Immature Granu locytes (promyelocytes, myelocytes and metamyelocytes) > 1% indicates that a LEFT SHIFT is Present. Iron measurement (mass/mass) Ordered By: Glen Chapman on 08-27-2025 Iron (Unsp spec) [Mass/Mass] 125 ug/dL 50-170 [facility] Iron+Iron Binding Capacityon 08-27-2025 Iron [Mass/Vol] 125 ug/dL Normal 50-170 [facility] Comment on above: Performed By: #### L 503.6005 #### [facility] [address] [place], [place], [id number] IRON SATURATION 25.7 Normal 13-59 [facility] Comment on above: Performed By: #### L 503.6005 #### [facility] [address] [place], [place], [id number] UIBC 362 ug/dL Normal 228-428 [facility] Comment on above: Performed By: #### L 503.6005 #### [facility] [address] [place], [place], [id number] Ketones Test strip Ql (U)Ord ered By: Glen Chapman on 08-27-2025 Ketones Ql (U) Negative Negative [facility] LDHon 08-27-2025 LDH 125 U/L Normal 84-246 [facility] Comment on above: Order Comment: Y Performed By: #### L 503.6005 #### [facility] [address] [place], [place], [id number] Laboratory - Chemistry and C hemistry - challengeOrdered By: Glen Chapman on 08-27-2025 AST [Catalytic activity/Vol] 17 U/L <32 [facility] Comment on above: Previous reported re sult: 19 U/LEdited by: AUTOINS on 08/27/25:1520 AMENDED REPORT 08/27/25 1520 AST previously reported as: 19 U/L Lactate dehydrogenase (LDH) measurementOrdered By: Glen Chapman on 08-27-2025 LDH [Catalytic activity/Vol] 125 U/L 84-246 [facility] MCV (mean corpuscular volume ) determinationOrdered By: Glen Chapman on 08-27-2025 MCV (RBC) [Entitic vol] 80.0 fL Low 81-99 [facility] Magnesiumon 08-27-2025 Magnesium [Mass/Vol] 2.2 mg/dL Normal 1.5-2.2 [facility] Comment on above: Performed By: #### L 503.6005 #### [facility] [place], [address] Magnesium measurement (mass/ volume)Ordered By: Glen Chapman on 08-27-2025 Magnesium (Unsp spec) [Mass/Vol] 2.2 mg/dL 1.5-2.2 [facility] Mean corpuscular hemoglobin (MCH) determinationOrdered By: Glen Chapman on 08-27-2025 MCH (RBC) [Entitic mass] 27.2 pg 27.0-32.0 [facility] Mean corpuscular hemoglobin concentration (MCHC) determinationOrdered By: Glen Chapman on 08-27-2025 MCHC (RBC) [Mass/Vol] 34.0 g/dL 32-36 [facility] Mean platelet volume determi nationOrdered By: Glen Chapman on 08-27-2025 Platelet mean volume (Bld) [Entitic vol] 9.5 fL 6.2-12.0 [facility] Microscopic analysis of urin e for red blood cells (RBC)Ordered By: Glen Chapman on 08-27-2025 Microscopic analysis of urine for red blood cells (RBC) 0 SEEN /hpf 0-5 [facility] Monocyte percentageOrdered B y: Glen Chapman on 08-27-2025 Monocytes/100 WBC (Bld) 6.2 % 0-10 [facility] Mucus LM Ql (Urine sed)Order ed By: Glen Chapman on 08-27-2025 Mucus Ql (Urine sed) 0 SEEN /hpf [facility] Neutrophil percentageOrdered By: Glen Chapman on 08-27-2025 Neutrophils/100 WBC (Bld) 71.6 % High 47-70 [facility] Nitrite Test strip Ql (U)Ord ered By: Glen Chapman on 08-27-2025 Nitrite Ql (U) Negative Negative [facility] No Panel InformationOrdered By: Glen Chapman on 08-27-2025 Hepatitis C Antibody Comment Comment . [facility] Comment on above: Not infected with HC V unless early or acute infection issuspected (which may be delayed in an immunocompromisedindividual), or other evidence exists to indicate HCVinfection. Hepatitis Interpretation Comment . [facility] Comment on above: HBV Serology Interpr etation [...] (susceptible); low-level chronic infection; resolving acute infection. HIV (1&2) Antibody Non-Reactive Nonreactive [facility] Comment on above: Non-ReactiveReactive Repeatedly reactive samples must be confirmed according to CDC recommended confirmatory algorithms. The subresults for either HIVAG or AHIV can be used as an aid in the selection of the confirmation algorithm for reactive samples.Send out specimens with Reactive results to [facility] for confirmation.Order the HIV antibody detection and differentiation: #[id number] Unsaturated Iron Binding Capacity 362 ug/dL 228-428 [facility] 17 U/L <32 [facility] 362 ug/dL 228-428 [facility] Comment . [facility] Non-Reactive Nonreactive [facility] Nucleated red blood cell per centageOrdered By: Glen Chapman on 08-27-2025 Nucleated RBC/100 WBC (Bld) [Ratio] 0 % 0-5 [facility] Oncology Visit Reporton 08-15 Oncology Visit Report [facility] [place] [address] OFFICE VISIT Date of Service: 08/27/25 1121 MR#: [id number] Acct: [id number] Name: HEIDI ANDREWS Rep #: [id number] : 1970 From: Glen Chapman MD Age/Sex: 55/F Location: [facility] Status: Signed HPI Subjective Date [...] follow up. Feels tired, sleeps a lot. FORMERLY [facility], 1928–1983 Medical History Sleep apnea Wears glasses Thyroid [...] (more content not included)... Normal [facility] Platelet countOrdered By: Jaimee Chapman on 08-27-2025 Platelets (Bld) [#/Vol] 333 10*3/uL 150-450 [facility] Potassium measurement (mass/ volume)Ordered By: Glen Chapman on 08-27-2025 Potassium (Unsp spec) [Mass/Vol] 4.0 mmol/L 3.3-5.1 [facility] Protein Test strip Ql (U)Ord ered By: Glen Chapman on 08-27-2025 Protein Ql (U) 30 mg/dl High Negative [facility] RBC Auto (Bld) [#/Vol]Ordere d By: Glen Chapman on 08-27-2025 RBC (Bld) [#/Vol] 4.15 10*6/uL Low 4.2-5.4 [facility] Retic Panelon 08-27-2025 IM RET FRACTION 12.30 Normal 3.00-15.90 [facility] Comment on above: Performed By: #### L 503.0106, L500.4050, L501.1400, L400.0001, L503.6030, L3000.0800, L100.9950, L3890.6006, L501.5101, L100.0100, L504.2610, L501.5200, L506.0200, L3410.9992, L101.9900, L3100.1350, L3200.1200, L503.6550, L3200.0500, L501.6710 #### [facility] [address], [place], [id number] RET-HE 29.5 pg Low 30-35 [facility] Comment on above: Performed By: #### L 503.0106, L500.4050, L501.1400, L400.0001, L503.6030, L3000.0800, L100.9950, L3890.6006, L501.5101, L100.0100, L504.2610, L501.5200, L506.0200, L3410.9992, L101.9900, L3100.1350, L3200.1200, L503.6550, L3200.0500, L501.6710 #### [facility] [address] [place], [address] Retic Count 1.38 Normal 0.5-1.5 [facility] Comment on above: Performed By: #### L 503.0106, L500.4050, L501.1400, L400.0001, L503.6030, L3000.0800, L100.9950, L3890.6006, L501.5101, L100.0100, L504.2610, L501.5200, L506.0200, L3410.9992, L101.9900, L3100.1350, L3200.1200, L503.6550, L3200.0500, L501.6710 #### [facility] [address] [place], [address] Reticulocyte hemoglobin equi valent (RET-He) measurementOrdered By: Glen Chapman on 08-27-2025 Hemoglobin (Reticulocytes) [Entitic mass] 29.5 pg Low 30-35 [facility] Reticulocytes Auto (Bld) [#/ Vol]Ordered By: Glen Chapman on 08-27-2025 Reticulocytes/100 RBC (Bld) 1.38 % 0.5-1.5 [facility] Serum IgG subclass 1 measure ment (mass/volume)Ordered By: Glen Chapman on 08-27-2025 IgG subclass 1 (S) [Mass/Vol] 334 mg/dL 248-810 [facility] Serum IgG subclass 2 measure ment (mass/volume)Ordered By: Glen Chapman on 08-27-2025 IgG subclass 2 (S) [Mass/Vol] 281 mg/dL 130-555 [facility] Serum IgG subclass 3 measure ment (mass/volume)Ordered By: Glen Chapman on 08-27-2025 IgG subclass 3 (S) [Mass/Vol] 51 mg/dL 15-102 [facility] Serum creatinine measurement (mass/volume)Ordered By: Glen Chapman on 08-27-2025 Creatinine [Mass/Vol] 1.58 mg/dL High 0.70-1.20 [facility] Comment on above: Previous reported re sult: 1.65 mg/dLEdited by: CRISTA on 08/27/25:1520 AMENDED REPORT 08/27/25 1520 CREAT,SERUM previously reported as: 1.65 H mg/dL Serum globulin measurementOr dered By: Glen Chapman on 08-27-2025 Globulin (S) [Mass/Vol] 3.7 g/dL 2.2-4.2 [facility] Comment on above: Previous reported re sult: 3.8 g/dLEdited by: CRISTA on 08/27/25:1520 AMENDED REPORT 08/27/25 1520 GLOB previously reported as: 3.8 g/dL Serum glucose measurement (m ass/volume)Ordered By: Glen Chapman on 08-27-2025 Glucose [Mass/Vol] 161 mg/dL High 70-99 [facility] Comment on above: Previous reported re sult: 165 mg/dLEdited by: CRISTA on 08/27/25:1520 AMENDED REPORT 08/27/25 1520 GLU previously reported as: 165 H mg/dL Serum hepatitis B virus core antibody detectionOrdered By: Glen Chapman on 08-27-2025 HBV core Ab Ql (S) Negative Negative [facility] Serum or plasma C reactive p rotein measurement (mass/volume)Ordered By: Glen Chapman on 08-27-2025 CRP [Mass/Vol] 18.30 mg/L High 0.0-3.0 [facility] Serum or plasma IgA measurem ent (mass/volume)Ordered By: Glen Chapman on 08-27-2025 IgA [Mass/Vol] 72 mg/dL Low 87-352 [facility] Serum or plasma IgG measurem ent (mass/volume)Ordered By: Glen Chapman on 08-27-2025 IgG [Mass/Vol] 718 mg/dL [id number] [facility] IgG [Mass/Vol] Not Reportable [facility] Serum or plasma alanine cueto otransferase (ALT) measurementOrdered By: Glen Chapman on 08-27-2025 ALT [Catalytic activity/Vol] 8 U/L <35 [facility] Comment on above: Previous reported re sult: 9 U/LEdited by: CRISTA on 08/27/25:1520 AMENDED REPORT 08/27/25 1520 ALT previously reported as: 9 U/L Serum or plasma albumin sandy urement (mass/volume)Ordered By: Glen Chapman on 08-27-2025 Albumin [Mass/Vol] 4.6 g/dL 3.5-5.0 [facility] Serum or plasma albumin/glob ulin mass ratioOrdered By: Glen Chapman on 08-27-2025 Albumin/Globulin [Mass ratio] 1.2 {ratio} 0.9-2.4 [facility] Comment on above: Previous reported re sult: 1.2 RATIOEdited by: CRISTA on 08/27/25:1520 AMENDED REPORT 08/27/25 1520 A/G previously reported as: 1.2 RATIO Serum or plasma alkaline rebecca sphatase measurementOrdered By: Glen Chapman on 08-27-2025 ALP [Catalytic activity/Vol] 194 U/L High 35-104 [facility] Comment on above: Previous reported re sult: 196 U/LEdited by: CRISTA on 08/27/25:1520 AMENDED REPORT 08/27/25 1520 ALK P previously reported as: 196 H U/L Serum or plasma calcium sandy urement (mass/volume)Ordered By: Glen Chapman on 08-27-2025 Calcium [Mass/Vol] 10.5 mg/dL 7.6-11.0 [facility] Serum or plasma erythropoiet in (EPO) measurement (units/volume)Ordered By: Glen Chapman on 08-27-2025 Erythropoietin (EPO) Qn 9.5 mIU/mL 2.6-18.5 [facility] Comment on above: Citelighter UniC el DxI 800 Immunoassay SystemValues obtained with different assay methods or kits cannotbe used interchangeably. Results cannot be interpreted asabsolute evidence of the presence or absence of malignantdisease. Serum or plasma ferritin darrel surement (mass/volume)Ordered By: Glen Chapman on 08-27-2025 Ferritin [Mass/Vol] 872 ng/mL High 22-378 [facility] Comment on above: Previous reported re sult: 819 ng/mLEdited by: AUTOINS on 08/27/25:1520 AMENDED REPORT 08/27/25 1520 FERRITIN previously reported as: 819 H ng/mL Serum or plasma hepatitis B virus surface antigen detection by immunoassayOrdered By: Glen Chapman on 08-27-2025 HBV surface Ag IA Ql Negative Negative [facility] Serum or plasma iron saturat ion measurement (mass fraction)Ordered By: Glen Chapman on 08-27-2025 Iron saturation [Mass fraction] 25.7 % 13-59 [facility] Serum or plasma urea nitroge n measurement (mass/volume)Ordered By: Glen Chapman on 08-27-2025 Urea nitrogen [Mass/Vol] 27 mg/dL High 4-19 [facility] Comment on above: Previous reported re sult: 28 mg/dLEdited by: AUTOINS on 08/27/25:1520 AMENDED REPORT 08/27/25 1520 BUN previously reported as: 28 H mg/dL Serum or plasma uric acid me asurement (mass/volume)Ordered By: Geln Chapman on 08-27-2025 Urate [Mass/Vol] 9.8 mg/dL High 2.6-6.0 [facility] Comment on above: The drugs N-Acetylcy steine and Metamizole may falsely depress this assay. Sodium levelOrdered By: Cy Chapman on 08-27-2025 Sodium [Moles/Vol] 131 mmol/L Low 133-145 [facility] Squamous epithelial cells de tection in urine sediment by light microscopyOrdered By: Glen Chapman on 08-27-2025 Epithelial cells.squamous LM Ql (Urine sed) 10-25 SEEN /hpf - [facility] Total proteinOrdered By: Vasquez vernon Shemarrito on 08-27-2025 Protein [Mass/Vol] 8.2 g/dL 5.9-8.4 [facility] Comment on above: Previous reported re sult: 8.4 g/dLEdited by: AUTOINS on 08/27/25:1520 AMENDED REPORT 08/27/25 1520 T PROT previously reported as: 8.4 g/dL Uric Acidon 08-27-2025 URIC 9.8 mg/dL High 2.6-6.0 [facility] Comment on above: Result Comment: The drugs N-Acetylcysteine and Metamizole may falsely depress this assay. Performed By: #### L 503.6005 #### [facility] [address] [facility] [place], [place], [id number] Urinalysis, Completeon 08-27 BACTERIA 2+ /hpf Normal None Seen [facility] Comment on above: Order Comment: MADHAVI CTOR TO SPECIFY Performed By: #### L 503.0106, L500.4050, L501.1400, L400.0001, L503.6030, L3000.0800, L100.9950, L3890.6006, L501.5101, L100.0100, L504.2610, L501.5200, L506.0200, L3410.9992, L101.9900, L3100.1350, L3200.1200, L503.6550, L3200.0500, L501.6710 #### [facility] [address] [place], [place], [id number] EPI,SQUAMOUS 10-25 SEEN Normal - [facility] Comment on above: Order Comment: MADHAVI CTOR TO SPECIFY Performed By: #### L 503.0106, L500.4050, L501.1400, L400.0001, L503.6030, L3000.0800, L100.9950, L3890.6006, L501.5101, L100.0100, L504.2610, L501.5200, L506.0200, L3410.9992, L101.9900, L3100.1350, L3200.1200, L503.6550, L3200.0500, L501.6710 #### [facility] [address] [place], [place], [phone] (170) WBC 5-10 SEEN Normal 0-5 [facility] Comment on above: Order Comment: COLLE CTOR TO SPECIFY Performed By: #### L 503.0106, L500.4050, L501.1400, L400.0001, L503.6030, L3000.0800, L100.9950, L3890.6006, L501.5101, L100.0100, L504.2610, L501.5200, L506.0200, L3410.9992, L101.9900, L3100.1350, L3200.1200, L503.6550, L3200.0500, L501.6710 #### [facility] [address] [place], [place], [phone] (089) Mucus Ql (Urine sed) 0 SEEN Normal [facility] Comment on above: Order Comment: COLLE CTOR TO SPECIFY Performed By: #### L 503.0106, L500.4050, L501.1400, L400.0001, L503.6030, L3000.0800, L100.9950, L3890.6006, L501.5101, L100.0100, L504.2610, L501.5200, L506.0200, L3410.9992, L101.9900, L3100.1350, L3200.1200, L503.6550, L3200.0500, L501.6710 #### [facility] [address] [place], [place], [phone] (650) RBC 0 SEEN Normal 0-5 [facility] Comment on above: Order Comment: COLLE CTOR TO SPECIFY Performed By: #### L 503.0106, L500.4050, L501.1400, L400.0001, L503.6030, L3000.0800, L100.9950, L3890.6006, L501.5101, L100.0100, L504.2610, L501.5200, L506.0200, L3410.9992, L101.9900, L3100.1350, L3200.1200, L503.6550, L3200.0500, L501.6710 #### [facility] [place], [address] Urine clarityOrdered By: Vasquez Chapman on 08-27-2025 Clarity (U) Cloudy Clear [facility] Urine color determinationOrd ered By: Glen Chapman on 08-27-2025 Color (U) Yellow Yellow [facility] Urine glucose detectionOrder ed By: Glen Chapman on 08-27-2025 Glucose Ql (U) Normal mg/dl Normal [facility] Urine leukocyte esterase det ection by dipstickOrdered By: Glen Chapman on 08-27-2025 Leukocyte esterase Test strip Ql (U) 25 /ul High Negative [facility] Urine pHOrdered By: Glen sena on 08-27-2025 pH (U) 5.0 [pH] 5.0 - 8.0 [facility] Urine sediment bacteria coun t by microscopy (number/high power field)Ordered By: Glen Chapman on 08-27-2025 Bacteria LM.HPF (Urine sed) [#/Area] 2 /[HPF] None Seen [facility] Urine specific gravity measu rementOrdered By: Glen Chapman on 08-27-2025 Specific gravity (U) [Rel density] 1.015 1.002-1.030 [facility] Urine urobilinogen measureme ntOrdered By: Glen Chapman on 08-27-2025 Urobilinogen Ql (U) Normal mg/dl Normal [facility] Vitamin B12on 08-27-2025 Cobalamin (Vitamin B12) [Mass/Vol] 718 pg/mL Normal 180-914 [facility] Comment on above: Result Comment: AMENDED REPORT 08/27/25 1520 Vitamin B12 previously reported as: 715 pg/mL Performed By: #### L 503.0106, L500.4050, L501.1400, L400.0001, L503.6030, L3000.0800, L100.9950, L3890.6006, L501.5101, L100.0100, L504.2610, L501.5200, L506.0200, L3410.9992, L101.9900, L3100.1350, L3200.1200, L503.6550, L3200.0500, L501.6710 #### [facility] [address] [place], [place], [id number] Vitamin B12 ser/plasOrdered By: Glen Chapman on 08-27-2025 Cobalamin (Vitamin B12) [Mass/Vol] 718 pg/mL 180-914 [facility] Comment on above: Previous reported re sult: 715 pg/mLEdited by: CRISTA on 08/27/25:1520 AMENDED REPORT 08/27/25 1520 Vitamin B12 previously reported as: 715 pg/mL White blood cell (WBC) count Ordered By: Glen Chapman on 08-27-2025 WBC (Bld) [#/Vol] 7.4 10*3/uL 4.4-11.0 [facility] White blood cell countOrdere d By: Glen Chapman on 08-27-2025 White blood cell count 5-10 SEEN /hpf 0-5 [facility] Absolute lymphocyte countOrd ered By: Glen Chapman on 08-22-2025 Lymphocytes Auto (Unsp spec) [#/Vol] 0.84 10*3/uL 0.83-4.51 [facility] Absolute neutrophil countOrd ered By: Glen Chapman on 08-22-2025 Neutrophils (Bld) [#/Vol] 8.6 10*3/uL High 2.0-7.7 [facility] Anion gap in Serum or Plasma Ordered By: Glen Chapman on 08-22-2025 Anion gap [Moles/Vol] 20 mmol/L High 5-15 [facility] Automated lymphocyte count a s percentage of total leukocytesOrdered By: Glen Chapman on 08-22-2025 Lymphocytes/100 WBC Auto (Unsp spec) 8.1 % Low 19-41 [facility] BUN/creatinine ratioOrdered By: Glen Chapman on 08-22-2025 Urea nitrogen/Creatinine [Mass ratio] 16.0 mg/mg - [facility] Basic Metabolic Profile (BMP )on 08-22-2025 BUN Normal 4-19 [facility] Comment on above: Order Comment: Order Date: 08/20/25Order Info: 0667-1 - BMP Result Comment: DUPL ICATE Performed By: #### L 503.0106, L500.4050, L501.1400, L400.0001, L503.6030, L3000.0800, L100.9950, L3890.6006, L501.5101, L100.0100, L504.2610, L501.5200, L506.0200, L3410.9992, L101.9900, L3100.1350, L3200.1200, L503.6550, L3200.0500, L501.6710 #### [facility] [address] [place], [place], [phone] (725) BUN/CRE Normal - [facility] Comment on above: Order Comment: Order Date: 08/20/25Order Info: 0667-1 - BMP Result Comment: DUPL ICATE Performed By: #### L 503.0106, L500.4050, L501.1400, L400.0001, L503.6030, L3000.0800, L100.9950, L3890.6006, L501.5101, L100.0100, L504.2610, L501.5200, L506.0200, L3410.9992, L101.9900, L3100.1350, L3200.1200, L503.6550, L3200.0500, L501.6710 #### [facility] [address] [place], [place], [phone] (478) Calcium Normal 7.6-11.0 [facility] Comment on above: Order Comment: Order Date: 08/20/25Order Info: 0667-1 - BMP Result Comment: DUPL ICATE Performed By: #### L 503.0106, L500.4050, L501.1400, L400.0001, L503.6030, L3000.0800, L100.9950, L3890.6006, L501.5101, L100.0100, L504.2610, L501.5200, L506.0200, L3410.9992, L101.9900, L3100.1350, L3200.1200, L503.6550, L3200.0500, L501.6710 #### [facility] [address] [place], [place], [id number] CL Normal 98-108 [facility] Comment on above: Order Comment: Order Date: 08/20/25Order Info: 0667-1 - BMP Result Comment: DUPL ICATE Performed By: #### L 503.0106, L500.4050, L501.1400, L400.0001, L503.6030, L3000.0800, L100.9950, L3890.6006, L501.5101, L100.0100, L504.2610, L501.5200, L506.0200, L3410.9992, L101.9900, L3100.1350, L3200.1200, L503.6550, L3200.0500, L501.6710 #### [facility] [address] [place], [address] CO2 Normal 21.0-32.0 [facility] Comment on above: Order Comment: Order Date: 08/20/25Order Info: 0667-1 - BMP Result Comment: DUPL ICATE Performed By: #### L 503.0106, L500.4050, L501.1400, L400.0001, L503.6030, L3000.0800, L100.9950, L3890.6006, L501.5101, L100.0100, L504.2610, L501.5200, L506.0200, L3410.9992, L101.9900, L3100.1350, L3200.1200, L503.6550, L3200.0500, L501.6710 #### [facility] [address] [place], [place], [id number] CREAT,SERUM Normal 0.70-1.20 [facility] Comment on above: Order Comment: Order Date: 08/20/25Order Info: 0667-1 - BMP Result Comment: DUPL ICATE Performed By: #### L 503.0106, L500.4050, L501.1400, L400.0001, L503.6030, L3000.0800, L100.9950, L3890.6006, L501.5101, L100.0100, L504.2610, L501.5200, L506.0200, L3410.9992, L101.9900, L3100.1350, L3200.1200, L503.6550, L3200.0500, L501.6710 #### [facility] [address] [place], [place], [id number] eGFR Normal >60 [facility] Comment on above: Order Comment: Order Date: 08/20/25Order Info: 0667-1 - BMP Result Comment: DUPL ICATE Performed By: #### L 503.0106, L500.4050, L501.1400, L400.0001, L503.6030, L3000.0800, L100.9950, L3890.6006, L501.5101, L100.0100, L504.2610, L501.5200, L506.0200, L3410.9992, L101.9900, L3100.1350, L3200.1200, L503.6550, L3200.0500, L501.6710 #### [facility] [address] [place], [place], [id number] GAP Normal 5-15 [facility] Comment on above: Order Comment: Order Date: 08/20/25Order Info: 0667-1 - BMP Result Comment: DUPL ICATE Performed By: #### L 503.0106, L500.4050, L501.1400, L400.0001, L503.6030, L3000.0800, L100.9950, L3890.6006, L501.5101, L100.0100, L504.2610, L501.5200, L506.0200, L3410.9992, L101.9900, L3100.1350, L3200.1200, L503.6550, L3200.0500, L501.6710 #### [facility] [address], [place], [id number] GLU Normal 70-99 [facility] Comment on above: Order Comment: Order Date: 08/20/25Order Info: 0667-1 - BMP Result Comment: DUPL ICATE Performed By: #### L 503.0106, L500.4050, L501.1400, L400.0001, L503.6030, L3000.0800, L100.9950, L3890.6006, L501.5101, L100.0100, L504.2610, L501.5200, L506.0200, L3410.9992, L101.9900, L3100.1350, L3200.1200, L503.6550, L3200.0500, L501.6710 #### [facility] [address] [place], [place], [address] Potassium Normal 3.3-5.1 [facility] Comment on above: Order Comment: Order Date: 08/20/25Order Info: 0667-1 - BMP Result Comment: DUPL ICATE Performed By: #### L 503.0106, L500.4050, L501.1400, L400.0001, L503.6030, L3000.0800, L100.9950, L3890.6006, L501.5101, L100.0100, L504.2610, L501.5200, L506.0200, L3410.9992, L101.9900, L3100.1350, L3200.1200, L503.6550, L3200.0500, L501.6710 #### [facility] [address] [place], [place], [id number] Basic Metabolic Profile (BMP) Normal 133-145 [facility] Comment on above: Order Comment: Order Date: 08/20/25Order Info: [id number] - BMP Result Comment: DUPL ICATE Performed By: #### L 503.0106, L500.4050, L501.1400, L400.0001, L503.6030, L3000.0800, L100.9950, L3890.6006, L501.5101, L100.0100, L504.2610, L501.5200, L506.0200, L3410.9992, L101.9900, L3100.1350, L3200.1200, L503.6550, L3200.0500, L501.6710 #### [facility] [address] [place], [place], [id number] Basophil percentageOrdered B y: Glen Chapman on 08-22-2025 Basophils/100 WBC (Bld) 0.4 % 0-1 W [facility] Bilirubin, totalOrdered By: Glen Chapman on 08-22-2025 Bilirubin [Mass/Vol] 0.79 mg/dL 0.00-1.30 [facility] CBC W/Diff, Automatedon 10-0 Anisocytosis Ql (Bld) 1+ Normal [facility] Comment on above: Performed By: #### L 503.0106, L500.4050, L501.1400, L400.0001, L503.6030, L3000.0800, L100.9950, L3890.6006, L501.5101, L100.0100, L504.2610, L501.5200, L506.0200, L3410.9992, L101.9900, L3100.1350, L3200.1200, L503.6550, L3200.0500, L501.6710 #### [facility] [address] [place], [address] CRPon 08-22-2025 C-REACTIVE PROT 129.00 mg/L High 0.0-3.0 [facility] Comment on above: Order Comment: Y Performed By: #### L 503.6005 #### [facility] [address] [place], [place], [id number] Carbon dioxide, total [Moles /volume] in Central venous bloodOrdered By: Glen Chapman on 08-22-2025 CO2 [Moles/Vol] 23.7 mmol/L 21.0-32.0 [facility] Chloride assayOrdered By: Jaimee Chapman on 08-22-2025 Chloride [Moles/Vol] 89 mmol/L Low 98-108 [facility] Comprehensive Metabolic Prof ilon 08-22-2025 Albumin [Mass/Vol] 4.1 g/dL Normal 3.5-5.0 [facility] Comment on above: Order Comment: CMP A ND CBCD GO TO DR. PEREZ ALL OTHER LABS GOT TO Performed By: #### L 503.0106, L500.4050, L501.1400, L400.0001, L503.6030, L3000.0800, L100.9950, L3890.6006, L501.5101, L100.0100, L504.2610, L501.5200, L506.0200, L3410.9992, L101.9900, L3100.1350, L3200.1200, L503.6550, L3200.0500, L501.6710 #### [facility] [address] [place], [place], [id number] Albumin/Globulin [Mass ratio] 1.0 {ratio} Normal 0.9-2.4 [facility] Comment on above: Order Comment: CMP A ND CBCD GO TO DR. PEREZ ALL OTHER LABS GOT TO Performed By: #### L 503.0106, L500.4050, L501.1400, L400.0001, L503.6030, L3000.0800, L100.9950, L3890.6006, L501.5101, L100.0100, L504.2610, L501.5200, L506.0200, L3410.9992, L101.9900, L3100.1350, L3200.1200, L503.6550, L3200.0500, L501.6710 #### [facility] [address], [place], [id number] ALK PHOS 243 U/L High 35-104 [facility] Comment on above: Order Comment: CMP A ND CBCD GO TO DR. PEREZ ALL OTHER LABS GOT TO Performed By: #### L 503.0106, L500.4050, L501.1400, L400.0001, L503.6030, L3000.0800, L100.9950, L3890.6006, L501.5101, L100.0100, L504.2610, L501.5200, L506.0200, L3410.9992, L101.9900, L3100.1350, L3200.1200, L503.6550, L3200.0500, L501.6710 #### [facility] [address] [place], [place], [id number] ALT [Catalytic activity/Vol] 12 U/L Normal <=34 [facility] Comment on above: Order Comment: CMP A ND CBCD GO TO DR. PEREZ ALL OTHER LABS GOT TO Performed By: #### L 503.0106, L500.4050, L501.1400, L400.0001, L503.6030, L3000.0800, L100.9950, L3890.6006, L501.5101, L100.0100, L504.2610, L501.5200, L506.0200, L3410.9992, L101.9900, L3100.1350, L3200.1200, L503.6550, L3200.0500, L501.6710 #### [facility] [address] [place], [place], [address] AST [Catalytic activity/Vol] 27 U/L Normal <=31 [facility] Comment on above: Order Comment: CMP A ND CBCD GO TO DR. PEREZ ALL OTHER LABS GOT TO Performed By: #### L 503.0106, L500.4050, L501.1400, L400.0001, L503.6030, L3000.0800, L100.9950, L3890.6006, L501.5101, L100.0100, L504.2610, L501.5200, L506.0200, L3410.9992, L101.9900, L3100.1350, L3200.1200, L503.6550, L3200.0500, L501.6710 #### [facility] [address] [place], [address] Bilirubin [Mass/Vol] 0.79 mg/dL Normal 0.00-1.30 [facility] Comment on above: Order Comment: CMP A ND CBCD GO TO DR. PEREZ ALL OTHER LABS GOT TO Performed By: #### L 503.0106, L500.4050, L501.1400, L400.0001, L503.6030, L3000.0800, L100.9950, L3890.6006, L501.5101, L100.0100, L504.2610, L501.5200, L506.0200, L3410.9992, L101.9900, L3100.1350, L3200.1200, L503.6550, L3200.0500, L501.6710 #### [facility] [address] [place], [address] BUN/CRE 16.0 RATIO Normal 10-20 [facility] Comment on above: Order Comment: CMP A ND CBCD GO TO DR. PEREZ ALL OTHER LABS GOT TO Performed By: #### L 503.0106, L500.4050, L501.1400, L400.0001, L503.6030, L3000.0800, L100.9950, L3890.6006, L501.5101, L100.0100, L504.2610, L501.5200, L506.0200, L3410.9992, L101.9900, L3100.1350, L3200.1200, L503.6550, L3200.0500, L501.6710 #### [facility] [address] [place], [place], [id number] Calcium [Mass/Vol] 10.3 mg/dL Normal 7.6-11.0 [facility] Comment on above: Order Comment: CMP A ND CBCD GO TO DR. PEREZ ALL OTHER LABS GOT TO Performed By: #### L 503.0106, L500.4050, L501.1400, L400.0001, L503.6030, L3000.0800, L100.9950, L3890.6006, L501.5101, L100.0100, L504.2610, L501.5200, L506.0200, L3410.9992, L101.9900, L3100.1350, L3200.1200, L503.6550, L3200.0500, L501.6710 #### [facility] [address] [place], [place], [id number] Chloride [Moles/Vol] 89 mmol/L Low 98-108 [facility] Comment on above: Order Comment: CMP A ND CBCD GO TO DR. PEREZ ALL OTHER LABS GOT TO Performed By: #### L 503.0106, L500.4050, L501.1400, L400.0001, L503.6030, L3000.0800, L100.9950, L3890.6006, L501.5101, L100.0100, L504.2610, L501.5200, L506.0200, L3410.9992, L101.9900, L3100.1350, L3200.1200, L503.6550, L3200.0500, L501.6710 #### [facility] [address] [place], [place], [address] CO2 [Moles/Vol] 23.7 mmol/L Normal 21.0-32.0 [facility] Comment on above: Order Comment: CMP A ND CBCD GO TO DR. PEREZ ALL OTHER LABS GOT TO Performed By: #### L 503.0106, L500.4050, L501.1400, L400.0001, L503.6030, L3000.0800, L100.9950, L3890.6006, L501.5101, L100.0100, L504.2610, L501.5200, L506.0200, L3410.9992, L101.9900, L3100.1350, L3200.1200, L503.6550, L3200.0500, L501.6710 #### [facility] [address] [place], [place], [address] Creatinine [Mass/Vol] 1.39 mg/dL High 0.70-1.20 [facility] Comment on above: Order Comment: CMP A ND CBCD GO TO DR. PEREZ ALL OTHER LABS GOT TO Performed By: #### L 503.0106, L500.4050, L501.1400, L400.0001, L503.6030, L3000.0800, L100.9950, L3890.6006, L501.5101, L100.0100, L504.2610, L501.5200, L506.0200, L3410.9992, L101.9900, L3100.1350, L3200.1200, L503.6550, L3200.0500, L501.6710 #### [facility] [address] [place], [place], [address] GAP 20 High 5-15 [facility] Comment on above: Order Comment: CMP A ND CBCD GO TO DR. PEREZ ALL OTHER LABS GOT TO Performed By: #### L 503.0106, L500.4050, L501.1400, L400.0001, L503.6030, L3000.0800, L100.9950, L3890.6006, L501.5101, L100.0100, L504.2610, L501.5200, L506.0200, L3410.9992, L101.9900, L3100.1350, L3200.1200, L503.6550, L3200.0500, L501.6710 #### [facility] [address] [place], [place], [address] GFR/1.73 sq M.predicted among non-blacks MDRD (S/P/Bld) [Vol rate/Area] 45 mL/min/{1.73_m2} Low >60 [facility] Comment on above: Order Comment: CMP A ND CBCD GO TO DR. PEREZ ALL OTHER LABS GOT TO Result Comment: mL/m in/1.73m2 CKD-EPI Creatinine Equation (2020) Performed By: #### L 503.0106, L500.4050, L501.1400, L400.0001, L503.6030, L3000.0800, L100.9950, L3890.6006, L501.5101, L100.0100, L504.2610, L501.5200, L506.0200, L3410.9992, L101.9900, L3100.1350, L3200.1200, L503.6550, L3200.0500, L501.6710 #### [facility] [address] [place], [place], [address] Globulin (S) [Mass/Vol] 4.1 g/dL Normal 2.2-4.2 W [facility] Comment on above: Order Comment: CMP A ND CBCD GO TO DR. PEREZ ALL OTHER LABS GOT TO Performed By: #### L 503.0106, L500.4050, L501.1400, L400.0001, L503.6030, L3000.0800, L100.9950, L3890.6006, L501.5101, L100.0100, L504.2610, L501.5200, L506.0200, L3410.9992, L101.9900, L3100.1350, L3200.1200, L503.6550, L3200.0500, L501.6710 #### [facility] [address] [place], [place], [address] Glucose [Mass/Vol] 193 mg/dL High 70-99 [facility] Comment on above: Order Comment: CMP A ND CBCD GO TO DR. PEREZ ALL OTHER LABS GOT TO Performed By: #### L 503.0106, L500.4050, L501.1400, L400.0001, L503.6030, L3000.0800, L100.9950, L3890.6006, L501.5101, L100.0100, L504.2610, L501.5200, L506.0200, L3410.9992, L101.9900, L3100.1350, L3200.1200, L503.6550, L3200.0500, L501.6710 #### [facility] [address] [place], [place], [address] Potassium [Moles/Vol] 3.2 mmol/L Low 3.3-5.1 [facility] Comment on above: Order Comment: CMP A ND CBCD GO TO DR. PEREZ ALL OTHER LABS GOT TO Performed By: #### L 503.0106, L500.4050, L501.1400, L400.0001, L503.6030, L3000.0800, L100.9950, L3890.6006, L501.5101, L100.0100, L504.2610, L501.5200, L506.0200, L3410.9992, L101.9900, L3100.1350, L3200.1200, L503.6550, L3200.0500, L501.6710 #### [facility] [address] [place], [place], [id number] Sodium [Moles/Vol] 132 mmol/L Low 133-145 [facility] Comment on above: Order Comment: CMP A ND CBCD GO TO DR. PEREZ ALL OTHER LABS GOT TO Performed By: #### L 503.0106, L500.4050, L501.1400, L400.0001, L503.6030, L3000.0800, L100.9950, L3890.6006, L501.5101, L100.0100, L504.2610, L501.5200, L506.0200, L3410.9992, L101.9900, L3100.1350, L3200.1200, L503.6550, L3200.0500, L501.6710 #### [facility] [address] [place], [address] T PROT 8.2 g/dL Normal 5.9-8.4 [facility] Comment on above: Order Comment: CMP A ND CBCD GO TO DR. PEREZ ALL OTHER LABS GOT TO Performed By: #### L 503.0106, L500.4050, L501.1400, L400.0001, L503.6030, L3000.0800, L100.9950, L3890.6006, L501.5101, L100.0100, L504.2610, L501.5200, L506.0200, L3410.9992, L101.9900, L3100.1350, L3200.1200, L503.6550, L3200.0500, L501.6710 #### [facility] [address] [place], [place], [id number] Urea nitrogen [Mass/Vol] 22 mg/dL High 4-19 [facility] Comment on above: Order Comment: CMP A ND CBCD GO TO DR. PEREZ ALL OTHER LABS GOT TO Performed By: #### L 503.0106, L500.4050, L501.1400, L400.0001, L503.6030, L3000.0800, L100.9950, L3890.6006, L501.5101, L100.0100, L504.2610, L501.5200, L506.0200, L3410.9992, L101.9900, L3100.1350, L3200.1200, L503.6550, L3200.0500, L501.6710 #### [facility] [address] [place], [place], [id number] Eosinophil percentageOrdered By: Glen Chapman on 08-22-2025 Eosinophils/100 WBC (Bld) 0.6 % 0-5 [facility] Erythrocyte Sed Rateon 08-22 SED RATE 74 mm/hr High 0-30 [facility] Comment on above: Performed By: #### L 503.6005 #### [facility] [address] [place], [address] Erythrocyte distribution wid th ratioOrdered By: Glen Chapman on 08-22-2025 Erythrocyte distribution width (RBC) [Ratio] 13.4 % 11.6-14.6 [facility] Erythrocyte distribution wid th standard deviationOrdered By: Glen Chapman on 08-22-2025 Erythrocyte distribution width (RBC) [Ratio] 38.8 fl 35.1-43.9 [facility] Erythrocyte sedimentation ra teOrdered By: Glen Chapman on 08-22-2025 ESR (Bld) [Velocity] 74 mm/h High 0-30 [facility] Ferritinon 08-22-2025 Ferritin [Mass/Vol] 837 ng/mL High 22-378 [facility] Comment on above: Order Comment: Y Performed By: #### L 503.6005 #### [facility] [address] [place], [address] Glomerular filtration rate ( GFR) estimation/1.73 sq m using serum, plasma, or whole bOrdered By: Glen Chapman on 08-22-2025 GFR/1.73 sq M.predicted among non-blacks MDRD (S/P/Bld) [Vol rate/Area] 45 mL/min/{1.73_m2} Low >60 [facility] Comment on above: mL/min/1.73m2 CKD-EP I Creatinine Equation (2020) Hematocrit Auto (Bld) [Volum e fraction]Ordered By: Glen Chapman on 08-22-2025 Hematocrit (Bld) [Volume fraction] 31.3 % Low 37-47 [facility] Hemoglobin measurementOrdere d By: Glen Chapman on 08-22-2025 Hemoglobin (Bld) [Mass/Vol] 10.3 g/dL Low 12.0-15. 0 [facility] Immature granulocytes/100 WB C Auto (Bld)Ordered By: Glen Chapman on 08-22-2025 Immature granulocytes/100 WBC (Bld) 2.600 % High 0.0-0.9 [facility] Comment on above: IG% - Immature Granu locytes (promyelocytes, myelocytes and metamyelocytes) > 1% indicates that a LEFT SHIFT is Present. Iron measurement (mass/mass) Ordered By: Glen Chapman on 08-22-2025 Iron (Unsp spec) [Mass/Mass] 55 ug/dL 50-170 [facility] Iron+Iron Binding Capacityon 08-22-2025 Iron [Mass/Vol] 55 ug/dL Normal 50-170 [facility] Comment on above: Order Comment: Y Performed By: #### L 503.6005 #### [facility] [address] [place], [address] IRON SATURATION 14.2 Normal 13-59 [facility] Comment on above: Order Comment: Y Performed By: #### L 503.6005 #### [facility] [address] [place], [address] TIBC 386 ug/dL Normal 250-450 [facility] Comment on above: Order Comment: Y Performed By: #### L 503.6005 #### [facility] [address] [place], [address] UIBC 331 ug/dL Normal 228-428 [facility] Comment on above: Order Comment: Y Performed By: #### L 503.6005 #### [facility] [address] [place], [place], [id number] LDHon 08-22-2025 LDH 132 U/L Normal 84-246 [facility] Comment on above: Order Comment: Y Performed By: #### L 503.6005 #### [facility] [address] [place], [place], [id number] Laboratory - Chemistry and C hemistry - challengeOrdered By: Glen Chapman on 08-22-2025 AST [Catalytic activity/Vol] 27 U/L <32 [facility] Laboratory - Hematology and Cell countsOrdered By: Glen Chapman on 08-22-2025 Anisocytosis Ql (Bld) 1+ [facility] Lactate dehydrogenase (LDH) measurementOrdered By: Glen Chapman on 08-22-2025 LDH [Catalytic activity/Vol] 132 U/L 84-246 [facility] MCV (mean corpuscular volume ) determinationOrdered By: Glen Chapman on 08-22-2025 MCV (RBC) [Entitic vol] 80.5 fL Low 81-99 [facility] Magnesiumon 08-22-2025 Magnesium [Mass/Vol] 2.3 mg/dL High 1.5-2.2 [facility] Comment on above: Order Comment: Y Performed By: #### L 503.6005 #### [facility] [address] [place], [place], [id number] Magnesium measurement (mass/ volume)Ordered By: Glen Chapman on 08-22-2025 Magnesium (Unsp spec) [Mass/Vol] 2.3 mg/dL High 1.5-2.2 [facility] Mean corpuscular hemoglobin (MCH) determinationOrdered By: Glen Chapman on 08-22-2025 MCH (RBC) [Entitic mass] 26.5 pg Low 27.0-32.0 [facility] Mean corpuscular hemoglobin concentration (MCHC) determinationOrdered By: Glen Chapman on 08-22-2025 MCHC (RBC) [Mass/Vol] 32.9 g/dL 32-36 [facility] Mean platelet volume determi nationOrdered By: Glen Chapman on 08-22-2025 Platelet mean volume (Bld) [Entitic vol] 10.2 fL 6.2-12.0 [facility] Monocyte percentageOrdered B y: Glen Chapman on 08-22-2025 Monocytes/100 WBC (Bld) 5.4 % 0-10 [facility] Neutrophil percentageOrdered By: Glen Chapman on 08-22-2025 Neutrophils/100 WBC (Bld) 82.9 % High 47-70 [facility] No Panel InformationOrdered By: Glen Chapman on 08-22-2025 Unsaturated Iron Binding Capacity 331 ug/dL 228-428 [facility] 1+ [facility] 27 U/L <32 [facility] 331 ug/dL 228-428 [facility] Nucleated red blood cell per centageOrdered By: Glen Chapman on 08-22-2025 Nucleated RBC/100 WBC (Bld) [Ratio] 0 % 0-5 [facility] Phosphoruson 08-22-2025 Phosphate [Mass/Vol] 2.8 mg/dL Normal 2.7-4.5 [facility] Comment on above: Order Comment: Y Performed By: #### L 503.6005 #### [facility] [address] [place], [address] Platelet countOrdered By: Jaimee Chapman on 08-22-2025 Platelets (Bld) [#/Vol] 391 10*3/uL 150-450 [facility] Potassium measurement (mass/ volume)Ordered By: Glen Chapman on 08-22-2025 Potassium (Unsp spec) [Mass/Vol] 3.2 mmol/L Low 3.3-5.1 [facility] RBC Auto (Bld) [#/Vol]Ordere d By: Glen Chapman on 08-22-2025 RBC (Bld) [#/Vol] 3.89 10*6/uL Low 4.2-5.4 [facility] Serum creatinine measurement (mass/volume)Ordered By: Glen Chapman on 08-22-2025 Creatinine [Mass/Vol] 1.39 mg/dL High 0.70-1.20 [facility] Serum globulin measurementOr dered By: Glen Chapman on 08-22-2025 Globulin (S) [Mass/Vol] 4.1 g/dL 2.2-4.2 [facility] Serum glucose measurement (m ass/volume)Ordered By: Glen Chapman on 08-22-2025 Glucose [Mass/Vol] 193 mg/dL High 70-99 [facility] Serum or plasma C reactive p rotein measurement (mass/volume)Ordered By: Glen Chapman on 08-22-2025 CRP [Mass/Vol] 129.00 mg/L High 0.0-3.0 [facility] Serum or plasma alanine cueto otransferase (ALT) measurementOrdered By: Glen Chapman on 08-22-2025 ALT [Catalytic activity/Vol] 12 U/L <35 [facility] Serum or plasma albumin sandy urement (mass/volume)Ordered By: Glen Chapman on 08-22-2025 Albumin [Mass/Vol] 4.1 g/dL 3.5-5.0 [facility] Serum or plasma albumin/glob ulin mass ratioOrdered By: Glen Chapman on 08-22-2025 Albumin/Globulin [Mass ratio] 1.0 {ratio} 0.9-2.4 [facility] Serum or plasma alkaline rebecca sphatase measurementOrdered By: Glen Chapman on 08-22-2025 ALP [Catalytic activity/Vol] 243 U/L High 35-104 [facility] Serum or plasma calcium sandy urement (mass/volume)Ordered By: Glen Chapman on 08-22-2025 Calcium [Mass/Vol] 10.3 mg/dL 7.6-11.0 [facility] Serum or plasma ferritin darrel surement (mass/volume)Ordered By: Glen Chapman on 08-22-2025 Ferritin [Mass/Vol] 837 ng/mL High 22-378 [facility] Serum or plasma iron saturat ion measurement (mass fraction)Ordered By: Glen Chapman on 08-22-2025 Iron saturation [Mass fraction] 14.2 % 13-59 [facility] Serum or plasma urea nitroge n measurement (mass/volume)Ordered By: Glen Chapman on 08-22-2025 Urea nitrogen [Mass/Vol] 22 mg/dL High 4-19 [facility] Sodium levelOrdered By: Cy Chapman on 08-22-2025 Sodium [Moles/Vol] 132 mmol/L Low 133-145 [facility] Total proteinOrdered By: Vasquez Chapman on 08-22-2025 Protein [Mass/Vol] 8.2 g/dL 5.9-8.4 [facility] Vitamin B12on 08-22-2025 Cobalamin (Vitamin B12) [Mass/Vol] 747 pg/mL Normal 180-914 [facility] Comment on above: Order Comment: Y Performed By: #### L 503.6005 #### [facility] [address] [place], [place], [id number] Vitamin B12 ser/plasOrdered By: Glen Chapman on 08-22-2025 Cobalamin (Vitamin B12) [Mass/Vol] 747 pg/mL 180-914 [facility] White blood cell (WBC) count Ordered By: Glen Chapman on 08-22-2025 WBC (Bld) [#/Vol] 10.3 10*3/uL 4.4-11.0 [facility] Absolute lymphocyte countOrd ered By: Red Perez on 08-17-2025 Lymphocytes Auto (Unsp spec) [#/Vol] 0.97 10*3/uL 0.83-4.51 [facility] Absolute neutrophil countOrd ered By: Red Perez on 08-17-2025 Neutrophils (Bld) [#/Vol] 8.7 10*3/uL High 2.0-7.7 [facility] Anion gap in Serum or Plasma Ordered By: Red Perez on 08-17-2025 Anion gap [Moles/Vol] 22 mmol/L High 5-15 [facility] Automated lymphocyte count a s percentage of total leukocytesOrdered By: Red Perez on 08-17-2025 Lymphocytes/100 WBC Auto (Unsp spec) 9.1 % Low 19-41 [facility] BUN/creatinine ratioOrdered By: Red Perez on 08-17-2025 Urea nitrogen/Creatinine [Mass ratio] 14.1 mg/mg 10-20 [facility] Basophil percentageOrdered B y: Red Perez on 08-17-2025 Basophils/100 WBC (Bld) 0.5 % 0-1 [facility] Bilirubin, totalOrdered By: Red Perez on 08-17-2025 Bilirubin [Mass/Vol] 0.42 mg/dL 0.00-1.30 [facility] CBC W/Diff, Automatedon Absolute Lymph 0.97 X10 3/uL Normal 0.83-4.51 [facility] Comment on above: Performed By: #### L 503.0106, L500.4050, L501.1400, L400.0001, L503.6030, L3000.0800, L100.9950, L3890.6006, L501.5101, L100.0100, L504.2610, L501.5200, L506.0200, L3410.9992, L101.9900, L3100.1350, L3200.1200, L503.6550, L3200.0500, L501.6710 #### [facility] [address] [place], [address] Absolute Neut 8.7 X10 3/uL High 2.0-7.7 [facility] Comment on above: Performed By: #### L 503.0106, L500.4050, L501.1400, L400.0001, L503.6030, L3000.0800, L100.9950, L3890.6006, L501.5101, L100.0100, L504.2610, L501.5200, L506.0200, L3410.9992, L101.9900, L3100.1350, L3200.1200, L503.6550, L3200.0500, L501.6710 #### [facility] [address] [place], [place], [id number] (215) Basophils/100 WBC (Bld) 0.5 % Normal 0-1 [facility] Comment on above: Performed By: #### L 503.0106, L500.4050, L501.1400, L400.0001, L503.6030, L3000.0800, L100.9950, L3890.6006, L501.5101, L100.0100, L504.2610, L501.5200, L506.0200, L3410.9992, L101.9900, L3100.1350, L3200.1200, L503.6550, L3200.0500, L501.6710 #### [facility] [address] [place], [place], [phone] (936) Eosinophils/100 WBC (Bld) 0.3 % Normal 0-5 [facility] Comment on above: Performed By: #### L 503.0106, L500.4050, L501.1400, L400.0001, L503.6030, L3000.0800, L100.9950, L3890.6006, L501.5101, L100.0100, L504.2610, L501.5200, L506.0200, L3410.9992, L101.9900, L3100.1350, L3200.1200, L503.6550, L3200.0500, L501.6710 #### [facility] [address] [place], [address] (014) Erythrocyte distribution width (RBC) [Ratio] 13.3 % Normal 11.6-14.6 [facility] Comment on above: Performed By: #### L 503.0106, L500.4050, L501.1400, L400.0001, L503.6030, L3000.0800, L100.9950, L3890.6006, L501.5101, L100.0100, L504.2610, L501.5200, L506.0200, L3410.9992, L101.9900, L3100.1350, L3200.1200, L503.6550, L3200.0500, L501.6710 #### [facility] [address] [place], [place], [phone] (553) Hematocrit (Bld) [Volume fraction] 29.3 % Low 37-47 [facility] Comment on above: Performed By: #### L 503.0106, L500.4050, L501.1400, L400.0001, L503.6030, L3000.0800, L100.9950, L3890.6006, L501.5101, L100.0100, L504.2610, L501.5200, L506.0200, L3410.9992, L101.9900, L3100.1350, L3200.1200, L503.6550, L3200.0500, L501.6710 #### [facility] [address] [place], [address] Hemoglobin (Bld) [Mass/Vol] 9.5 g/dL Low 12.0-15. 0 [facility] Comment on above: Performed By: #### L 503.0106, L500.4050, L501.1400, L400.0001, L503.6030, L3000.0800, L100.9950, L3890.6006, L501.5101, L100.0100, L504.2610, L501.5200, L506.0200, L3410.9992, L101.9900, L3100.1350, L3200.1200, L503.6550, L3200.0500, L501.6710 #### [facility] [address] [place], [place], [phone] IG% 3.000 High 0.0-0.9 [facility] Comment on above: Result Comment: IG% - Immature Granulocytes (promyelocytes, myelocytes and metamyelocytes) > 1% indicates that a LEFT SHIFT is Present. Performed By: #### L 503.0106, L500.4050, L501.1400, L400.0001, L503.6030, L3000.0800, L100.9950, L3890.6006, L501.5101, L100.0100, L504.2610, L501.5200, L506.0200, L3410.9992, L101.9900, L3100.1350, L3200.1200, L503.6550, L3200.0500, L501.6710 #### [facility] [address] [place] [place], [address] Lymphocytes/100 WBC (Bld) 9.1 % Low 19-41 [facility] Comment on above: Performed By: #### L 503.0106, L500.4050, L501.1400, L400.0001, L503.6030, L3000.0800, L100.9950, L3890.6006, L501.5101, L100.0100, L504.2610, L501.5200, L506.0200, L3410.9992, L101.9900, L3100.1350, L3200.1200, L503.6550, L3200.0500, L501.6710 #### [facility] [address] [place], [address] MCH (RBC) [Entitic mass] 26.5 pg Low 27.0-32.0 [facility] Comment on above: Performed By: #### L 503.0106, L500.4050, L501.1400, L400.0001, L503.6030, L3000.0800, L100.9950, L3890.6006, L501.5101, L100.0100, L504.2610, L501.5200, L506.0200, L3410.9992, L101.9900, L3100.1350, L3200.1200, L503.6550, L3200.0500, L501.6710 #### [facility] [address] [place], [address] MCHC (RBC) [Mass/Vol] 32.4 g/dL Normal 32-36 [facility] Comment on above: Performed By: #### L 503.0106, L500.4050, L501.1400, L400.0001, L503.6030, L3000.0800, L100.9950, L3890.6006, L501.5101, L100.0100, L504.2610, L501.5200, L506.0200, L3410.9992, L101.9900, L3100.1350, L3200.1200, L503.6550, L3200.0500, L501.6710 #### [facility] [address] [place], [address] MCV (RBC) [Entitic vol] 81.6 fL Normal 81-99 [facility] Comment on above: Performed By: #### L 503.0106, L500.4050, L501.1400, L400.0001, L503.6030, L3000.0800, L100.9950, L3890.6006, L501.5101, L100.0100, L504.2610, L501.5200, L506.0200, L3410.9992, L101.9900, L3100.1350, L3200.1200, L503.6550, L3200.0500, L501.6710 #### [facility] [address] [place], [address] Monocytes/100 WBC (Bld) 5.2 % Normal 0-10 [facility] Comment on above: Performed By: #### L 503.0106, L500.4050, L501.1400, L400.0001, L503.6030, L3000.0800, L100.9950, L3890.6006, L501.5101, L100.0100, L504.2610, L501.5200, L506.0200, L3410.9992, L101.9900, L3100.1350, L3200.1200, L503.6550, L3200.0500, L501.6710 #### [facility] [address] [place], [address] Neutrophils/100 WBC (Bld) 81.9 % High 47-70 [facility] Comment on above: Performed By: #### L 503.0106, L500.4050, L501.1400, L400.0001, L503.6030, L3000.0800, L100.9950, L3890.6006, L501.5101, L100.0100, L504.2610, L501.5200, L506.0200, L3410.9992, L101.9900, L3100.1350, L3200.1200, L503.6550, L3200.0500, L501.6710 #### [facility] [address] [place], [place], [id number] Nucleated RBC (Bld) [#/Vol] 0 10*3/uL Normal 0-5 [facility] Comment on above: Performed By: #### L 503.0106, L500.4050, L501.1400, L400.0001, L503.6030, L3000.0800, L100.9950, L3890.6006, L501.5101, L100.0100, L504.2610, L501.5200, L506.0200, L3410.9992, L101.9900, L3100.1350, L3200.1200, L503.6550, L3200.0500, L501.6710 #### [facility] [address] [facility] [place], [place], [phone] Platelet mean volume (Bld) [Entitic vol] 10.0 fL Normal 6.2-12.0 [facility] Comment on above: Performed By: #### L 503.0106, L500.4050, L501.1400, L400.0001, L503.6030, L3000.0800, L100.9950, L3890.6006, L501.5101, L100.0100, L504.2610, L501.5200, L506.0200, L3410.9992, L101.9900, L3100.1350, L3200.1200, L503.6550, L3200.0500, L501.6710 #### [facility] [address] [place], [address] Platelets (Bld) [#/Vol] 370 10*3/uL Normal 150-450 [facility] Comment on above: Performed By: #### L 503.0106, L500.4050, L501.1400, L400.0001, L503.6030, L3000.0800, L100.9950, L3890.6006, L501.5101, L100.0100, L504.2610, L501.5200, L506.0200, L3410.9992, L101.9900, L3100.1350, L3200.1200, L503.6550, L3200.0500, L501.6710 #### [facility] [address] [place], [place], [address] (836) RBC (Bld) [#/Vol] 3.59 10*6/uL Low 4.2-5.4 [facility] Comment on above: Performed By: #### L 503.0106, L500.4050, L501.1400, L400.0001, L503.6030, L3000.0800, L100.9950, L3890.6006, L501.5101, L100.0100, L504.2610, L501.5200, L506.0200, L3410.9992, L101.9900, L3100.1350, L3200.1200, L503.6550, L3200.0500, L501.6710 #### [facility] [address] [place], [place], [phone] (657) RDW SD 39.8 fl Normal 35.1-43.9 [facility] Comment on above: Performed By: #### L 503.0106, L500.4050, L501.1400, L400.0001, L503.6030, L3000.0800, L100.9950, L3890.6006, L501.5101, L100.0100, L504.2610, L501.5200, L506.0200, L3410.9992, L101.9900, L3100.1350, L3200.1200, L503.6550, L3200.0500, L501.6710 #### [facility] [address] [place], [place], [phone] WBC (Bld) [#/Vol] 10.6 10*3/uL Normal 4.4-11.0 [facility] Comment on above: Performed By: #### L 503.0106, L500.4050, L501.1400, L400.0001, L503.6030, L3000.0800, L100.9950, L3890.6006, L501.5101, L100.0100, L504.2610, L501.5200, L506.0200, L3410.9992, L101.9900, L3100.1350, L3200.1200, L503.6550, L3200.0500, L501.6710 #### [facility] [address] [facility] [place], [place], [id number] Carbon dioxide, total [Moles /volume] in Central venous bloodOrdered By: Red Perez on 08-17-2025 CO2 [Moles/Vol] 23.4 mmol/L 21.0-32.0 [facility] Chloride assayOrdered By: Edy Perez on 08-17-2025 Chloride [Moles/Vol] 85 mmol/L Low 98-108 [facility] Comprehensive Metabolic Prof ilon 08-17-2025 Albumin [Mass/Vol] 4.0 g/dL Normal 3.5-5.0 [facility] Comment on above: Performed By: #### L 503.0106, L500.4050, L501.1400, L400.0001, L503.6030, L3000.0800, L100.9950, L3890.6006, L501.5101, L100.0100, L504.2610, L501.5200, L506.0200, L3410.9992, L101.9900, L3100.1350, L3200.1200, L503.6550, L3200.0500, L501.6710 #### [facility] [address] [place], [place], [id number] Albumin/Globulin [Mass ratio] 1.1 {ratio} Normal 0.9-2.4 [facility] Comment on above: Performed By: #### L 503.0106, L500.4050, L501.1400, L400.0001, L503.6030, L3000.0800, L100.9950, L3890.6006, L501.5101, L100.0100, L504.2610, L501.5200, L506.0200, L3410.9992, L101.9900, L3100.1350, L3200.1200, L503.6550, L3200.0500, L501.6710 #### [facility] [address] [place], [place], [id number] ALK PHOS 138 U/L High 35-104 [facility] Comment on above: Performed By: #### L 503.0106, L500.4050, L501.1400, L400.0001, L503.6030, L3000.0800, L100.9950, L3890.6006, L501.5101, L100.0100, L504.2610, L501.5200, L506.0200, L3410.9992, L101.9900, L3100.1350, L3200.1200, L503.6550, L3200.0500, L501.6710 #### [facility] [address] [place], [place], [phone] ALT [Catalytic activity/Vol] 5 U/L Normal <=34 [facility] Comment on above: Performed By: #### L 503.0106, L500.4050, L501.1400, L400.0001, L503.6030, L3000.0800, L100.9950, L3890.6006, L501.5101, L100.0100, L504.2610, L501.5200, L506.0200, L3410.9992, L101.9900, L3100.1350, L3200.1200, L503.6550, L3200.0500, L501.6710 #### [facility] [address] [place], [place], [id number] AST [Catalytic activity/Vol] 14 U/L Normal <=31 [facility] Comment on above: Performed By: #### L 503.0106, L500.4050, L501.1400, L400.0001, L503.6030, L3000.0800, L100.9950, L3890.6006, L501.5101, L100.0100, L504.2610, L501.5200, L506.0200, L3410.9992, L101.9900, L3100.1350, L3200.1200, L503.6550, L3200.0500, L501.6710 #### [facility] [address] [place], [place], [phone] Bilirubin [Mass/Vol] 0.42 mg/dL Normal 0.00-1.30 [facility] Comment on above: Performed By: #### L 503.0106, L500.4050, L501.1400, L400.0001, L503.6030, L3000.0800, L100.9950, L3890.6006, L501.5101, L100.0100, L504.2610, L501.5200, L506.0200, L3410.9992, L101.9900, L3100.1350, L3200.1200, L503.6550, L3200.0500, L501.6710 #### [facility] [address] [place], [place], [phone] BUN/CRE 14.1 RATIO Normal 10-20 [facility] Comment on above: Performed By: #### L 503.0106, L500.4050, L501.1400, L400.0001, L503.6030, L3000.0800, L100.9950, L3890.6006, L501.5101, L100.0100, L504.2610, L501.5200, L506.0200, L3410.9992, L101.9900, L3100.1350, L3200.1200, L503.6550, L3200.0500, L501.6710 #### [facility] [address] [place], [place], [id number] (860) Calcium [Mass/Vol] 9.8 mg/dL Normal 7.6-11.0 [facility] Comment on above: Performed By: #### L 503.0106, L500.4050, L501.1400, L400.0001, L503.6030, L3000.0800, L100.9950, L3890.6006, L501.5101, L100.0100, L504.2610, L501.5200, L506.0200, L3410.9992, L101.9900, L3100.1350, L3200.1200, L503.6550, L3200.0500, L501.6710 #### [facility] [address] [facility] [place], [place], [id number] (826) Chloride [Moles/Vol] 85 mmol/L Low 98-108 [facility] Comment on above: Performed By: #### L 503.0106, L500.4050, L501.1400, L400.0001, L503.6030, L3000.0800, L100.9950, L3890.6006, L501.5101, L100.0100, L504.2610, L501.5200, L506.0200, L3410.9992, L101.9900, L3100.1350, L3200.1200, L503.6550, L3200.0500, L501.6710 #### [facility] [address] [place], [place], [id number] (580) CO2 [Moles/Vol] 23.4 mmol/L Normal 21.0-32.0 [facility] Comment on above: Performed By: #### L 503.0106, L500.4050, L501.1400, L400.0001, L503.6030, L3000.0800, L100.9950, L3890.6006, L501.5101, L100.0100, L504.2610, L501.5200, L506.0200, L3410.9992, L101.9900, L3100.1350, L3200.1200, L503.6550, L3200.0500, L501.6710 #### [facility] [address] [place] [place], [address] Creatinine [Mass/Vol] 1.80 mg/dL High 0.70-1.20 [facility] Comment on above: Performed By: #### L 503.0106, L500.4050, L501.1400, L400.0001, L503.6030, L3000.0800, L100.9950, L3890.6006, L501.5101, L100.0100, L504.2610, L501.5200, L506.0200, L3410.9992, L101.9900, L3100.1350, L3200.1200, L503.6550, L3200.0500, L501.6710 #### [facility] [address] [place], [place], [id number] GAP 22 High 5-15 [facility] Comment on above: Performed By: #### L 503.0106, L500.4050, L501.1400, L400.0001, L503.6030, L3000.0800, L100.9950, L3890.6006, L501.5101, L100.0100, L504.2610, L501.5200, L506.0200, L3410.9992, L101.9900, L3100.1350, L3200.1200, L503.6550, L3200.0500, L501.6710 #### [facility] [address] [place], [address] GFR/1.73 sq M.predicted among non-blacks MDRD (S/P/Bld) [Vol rate/Area] 33 mL/min/{1.73_m2} Low >60 [facility] Comment on above: Result Comment: mL/m in/1.73m2 CKD-EPI Creatinine Equation (2020) Performed By: #### L 503.0106, L500.4050, L501.1400, L400.0001, L503.6030, L3000.0800, L100.9950, L3890.6006, L501.5101, L100.0100, L504.2610, L501.5200, L506.0200, L3410.9992, L101.9900, L3100.1350, L3200.1200, L503.6550, L3200.0500, L501.6710 #### [facility] [address] [place], [address] Globulin (S) [Mass/Vol] 3.8 g/dL Normal 2.2-4.2 [facility] Comment on above: Performed By: #### L 503.0106, L500.4050, L501.1400, L400.0001, L503.6030, L3000.0800, L100.9950, L3890.6006, L501.5101, L100.0100, L504.2610, L501.5200, L506.0200, L3410.9992, L101.9900, L3100.1350, L3200.1200, L503.6550, L3200.0500, L501.6710 #### [facility] [address] [place] [place], [address] Glucose [Mass/Vol] 168 mg/dL High 70-99 [facility] Comment on above: Performed By: #### L 503.0106, L500.4050, L501.1400, L400.0001, L503.6030, L3000.0800, L100.9950, L3890.6006, L501.5101, L100.0100, L504.2610, L501.5200, L506.0200, L3410.9992, L101.9900, L3100.1350, L3200.1200, L503.6550, L3200.0500, L501.6710 #### [facility] [address] [place], [place], [phone] (590) Potassium [Moles/Vol] 3.2 mmol/L Low 3.3-5.1 [facility] Comment on above: Performed By: #### L 503.0106, L500.4050, L501.1400, L400.0001, L503.6030, L3000.0800, L100.9950, L3890.6006, L501.5101, L100.0100, L504.2610, L501.5200, L506.0200, L3410.9992, L101.9900, L3100.1350, L3200.1200, L503.6550, L3200.0500, L501.6710 #### [facility] [address] [place], [place], [phone] (970) Sodium [Moles/Vol] 131 mmol/L Low 133-145 [facility] Comment on above: Performed By: #### L 503.0106, L500.4050, L501.1400, L400.0001, L503.6030, L3000.0800, L100.9950, L3890.6006, L501.5101, L100.0100, L504.2610, L501.5200, L506.0200, L3410.9992, L101.9900, L3100.1350, L3200.1200, L503.6550, L3200.0500, L501.6710 #### [facility] [address] [place], [place], [address] T PROT 7.8 g/dL Normal 5.9-8.4 [facility] Comment on above: Performed By: #### L 503.0106, L500.4050, L501.1400, L400.0001, L503.6030, L3000.0800, L100.9950, L3890.6006, L501.5101, L100.0100, L504.2610, L501.5200, L506.0200, L3410.9992, L101.9900, L3100.1350, L3200.1200, L503.6550, L3200.0500, L501.6710 #### [facility] [address] [place], [address] Urea nitrogen [Mass/Vol] 25 mg/dL High 4-19 [facility] Comment on above: Performed By: #### L 503.0106, L500.4050, L501.1400, L400.0001, L503.6030, L3000.0800, L100.9950, L3890.6006, L501.5101, L100.0100, L504.2610, L501.5200, L506.0200, L3410.9992, L101.9900, L3100.1350, L3200.1200, L503.6550, L3200.0500, L501.6710 #### [facility] [address] [place], [address] Eosinophil percentageOrdered By: Red Perez on 08-17-2025 Eosinophils/100 WBC (Bld) 0.3 % 0-5 [facility] Erythrocyte distribution wid th ratioOrdered By: Red Perez on 08-17-2025 Erythrocyte distribution width (RBC) [Ratio] 13.3 % 11.6-14.6 [facility] Erythrocyte distribution wid th standard deviationOrdered By: Red Perez on 08-17-2025 Erythrocyte distribution width (RBC) [Ratio] 39.8 fl 35.1-43.9 [facility] Ferritinon 08-17-2025 Ferritin [Mass/Vol] 1236 ng/mL High 22-378 [facility] Comment on above: Performed By: #### L 503.0106, L500.4050, L501.1400, L400.0001, L503.6030, L3000.0800, L100.9950, L3890.6006, L501.5101, L100.0100, L504.2610, L501.5200, L506.0200, L3410.9992, L101.9900, L3100.1350, L3200.1200, L503.6550, L3200.0500, L501.6710 #### [facility] [address] [place], [address] Free T3on 08-17-2025 Free T3 [Mass/Vol] 1.8 pg/mL Low 2.18-3.98 [facility] Comment on above: Performed By: #### L 503.0106, L500.4050, L501.1400, L400.0001, L503.6030, L3000.0800, L100.9950, L3890.6006, L501.5101, L100.0100, L504.2610, L501.5200, L506.0200, L3410.9992, L101.9900, L3100.1350, L3200.1200, L503.6550, L3200.0500, L501.6710 #### [facility] [address] [place], [address] Free Q8Oithtsm By: Red santos on 08-17-2025 Free T3 [Mass/Vol] 1.8 pg/mL Low 2.18-3.98 [facility] Glomerular filtration rate ( GFR) estimation/1.73 sq m using serum, plasma, or whole bOrdered By: Red Perez on 08-17-2025 GFR/1.73 sq M.predicted among non-blacks MDRD (S/P/Bld) [Vol rate/Area] 33 mL/min/{1.73_m2} Low >60 [facility] Comment on above: mL/min/1.73m2 CKD-EP I Creatinine Equation (2020) Hematocrit Auto (Bld) [Volum e fraction]Ordered By: Red Perez on 08-17-2025 Hematocrit (Bld) [Volume fraction] 29.3 % Low 37-47 [facility] Hemoglobin measurementOrdere d By: Red Perez on 08-17-2025 Hemoglobin (Bld) [Mass/Vol] 9.5 g/dL Low 12.0-15. 0 [facility] Immature granulocytes/100 WB C Auto (Bld)Ordered By: Red Perez on 08-17-2025 Immature granulocytes/100 WBC (Bld) 3.000 % High 0.0-0.9 [facility] Comment on above: IG% - Immature Granu locytes (promyelocytes, myelocytes and metamyelocytes) > 1% indicates that a LEFT SHIFT is Present. Iron measurement (mass/mass) Ordered By: Red Perez on 08-17-2025 Iron (Unsp spec) [Mass/Mass] 52 ug/dL 50-170 [facility] Iron+Iron Binding Capacityon 08-17-2025 Iron [Mass/Vol] 52 ug/dL Normal 50-170 [facility] Comment on above: Performed By: #### L 503.0106, L500.4050, L501.1400, L400.0001, L503.6030, L3000.0800, L100.9950, L3890.6006, L501.5101, L100.0100, L504.2610, L501.5200, L506.0200, L3410.9992, L101.9900, L3100.1350, L3200.1200, L503.6550, L3200.0500, L501.6710 #### [facility] [address] [place], [address] IRON SATURATION 15.0 Normal 13-59 [facility] Comment on above: Performed By: #### L 503.0106, L500.4050, L501.1400, L400.0001, L503.6030, L3000.0800, L100.9950, L3890.6006, L501.5101, L100.0100, L504.2610, L501.5200, L506.0200, L3410.9992, L101.9900, L3100.1350, L3200.1200, L503.6550, L3200.0500, L501.6710 #### [facility] [address] [place], [address] TIBC 345 ug/dL Normal 250-450 [facility] Comment on above: Performed By: #### L 503.0106, L500.4050, L501.1400, L400.0001, L503.6030, L3000.0800, L100.9950, L3890.6006, L501.5101, L100.0100, L504.2610, L501.5200, L506.0200, L3410.9992, L101.9900, L3100.1350, L3200.1200, L503.6550, L3200.0500, L501.6710 #### [facility] [address] [place], [address] UIBC 293 ug/dL Normal 228-428 [facility] Comment on above: Performed By: #### L 503.0106, L500.4050, L501.1400, L400.0001, L503.6030, L3000.0800, L100.9950, L3890.6006, L501.5101, L100.0100, L504.2610, L501.5200, L506.0200, L3410.9992, L101.9900, L3100.1350, L3200.1200, L503.6550, L3200.0500, L501.6710 #### [facility] [address] [place], [address] Laboratory - Chemistry and C hemistry - challengeOrdered By: Red Perez on 08-17-2025 AST [Catalytic activity/Vol] 14 U/L <32 [facility] MCV (mean corpuscular volume ) determinationOrdered By: Red Perez on 08-17-2025 MCV (RBC) [Entitic vol] 81.6 fL 81-99 [facility] Mean corpuscular hemoglobin (MCH) determinationOrdered By: Red Perez on 08-17-2025 MCH (RBC) [Entitic mass] 26.5 pg Low 27.0-32.0 [facility] Mean corpuscular hemoglobin concentration (MCHC) determinationOrdered By: Red Perez on 08-17-2025 MCHC (RBC) [Mass/Vol] 32.4 g/dL 32-36 [facility] [place] Mean platelet volume determi nationOrdered By: Red Perez on 08-17-2025 Platelet mean volume (Bld) [Entitic vol] 10.0 fL 6.2-12.0 [facility] Monocyte percentageOrdered B y: Red Perez on 08-17-2025 Monocytes/100 WBC (Bld) 5.2 % 0-10 [facility] Neutrophil percentageOrdered By: Red Perez on 08-17-2025 Neutrophils/100 WBC (Bld) 81.9 % High 47-70 [facility] No Panel InformationOrdered By: Red Perez on 08-17-2025 Unsaturated Iron Binding Capacity 293 ug/dL 228-428 [facility] 14 U/L <32 [facility] 293 ug/dL 228-428 [facility] Nucleated red blood cell per centageOrdered By: Red Perez on 08-17-2025 Nucleated RBC/100 WBC (Bld) [Ratio] 0 % 0-5 [facility] Platelet countOrdered By: Edy Perez on 08-17-2025 Platelets (Bld) [#/Vol] 370 10*3/uL 150-450 [facility] Potassium measurement (mass/ volume)Ordered By: Red Perez on 08-17-2025 Potassium (Unsp spec) [Mass/Vol] 3.2 mmol/L Low 3.3-5.1 [facility] RBC Auto (Bld) [#/Vol]Ordere d By: Red Perez on 08-17-2025 RBC (Bld) [#/Vol] 3.59 10*6/uL Low 4.2-5.4 [facility] Serum creatinine measurement (mass/volume)Ordered By: Red Perez on 08-17-2025 Creatinine [Mass/Vol] 1.80 mg/dL High 0.70-1.20 [facility] Serum globulin measurementOr dered By: Red Perez on 08-17-2025 Globulin (S) [Mass/Vol] 3.8 g/dL 2.2-4.2 [facility] Serum glucose measurement (m ass/volume)Ordered By: Red Perez on 08-17-2025 Glucose [Mass/Vol] 168 mg/dL High 70-99 [facility] Serum or plasma alanine cueto otransferase (ALT) measurementOrdered By: Red Perez on 08-17-2025 ALT [Catalytic activity/Vol] 5 U/L <35 [facility] Serum or plasma albumin sandy urement (mass/volume)Ordered By: Red Perez on 08-17-2025 Albumin [Mass/Vol] 4.0 g/dL 3.5-5.0 [facility] Serum or plasma albumin/glob ulin mass ratioOrdered By: Red Perez on 08-17-2025 Albumin/Globulin [Mass ratio] 1.1 {ratio} 0.9-2.4 [facility] Serum or plasma alkaline rebecca sphatase measurementOrdered By: Red Perez on 08-17-2025 ALP [Catalytic activity/Vol] 138 U/L High 35-104 [facility] Serum or plasma calcium sandy urement (mass/volume)Ordered By: Red Perez on 08-17-2025 Calcium [Mass/Vol] 9.8 mg/dL 7.6-11.0 [facility] Serum or plasma ferritin darrel surement (mass/volume)Ordered By: Red Perez on 08-17-2025 Ferritin [Mass/Vol] 1236 ng/mL High 22-378 [facility] Serum or plasma iron saturat ion measurement (mass fraction)Ordered By: Red Perez on 08-17-2025 Iron saturation [Mass fraction] 15.0 % 13-59 [facility] Serum or plasma urea nitroge n measurement (mass/volume)Ordered By: Red Perez on 08-17-2025 Urea nitrogen [Mass/Vol] 25 mg/dL High 4-19 [facility] Sodium levelOrdered By: Red Perez on 08-17-2025 Sodium [Moles/Vol] 131 mmol/L Low 133-145 [facility] T4 Free Directon 08-17-2025 T4 FREE DIRECT 1.50 ng/dL High 0.76-1.46 [facility] Comment on above: Performed By: #### L 503.0106, L500.4050, L501.1400, L400.0001, L503.6030, L3000.0800, L100.9950, L3890.6006, L501.5101, L100.0100, L504.2610, L501.5200, L506.0200, L3410.9992, L101.9900, L3100.1350, L3200.1200, L503.6550, L3200.0500, L501.6710 #### [facility] Laboratory [address] [place] [place], [address] T4 freeOrdered By: Red santos on 08-17-2025 Free T4 [Mass/Vol] 1.50 ng/dL High 0.76-1.46 [facility] TSH DL <= 0.005 mIU/L QnOrde red By: Red Perez on 08-17-2025 TSH Qn 3.370 uIU/mL 0.300-4.200 [facility] Thyroid Stim Hormone (TSH)on 08-17-2025 TSH 3.370 uIU/mL Normal 0.300-4.200 [facility] Comment on above: Performed By: #### L 503.0106, L500.4050, L501.1400, L400.0001, L503.6030, L3000.0800, L100.9950, L3890.6006, L501.5101, L100.0100, L504.2610, L501.5200, L506.0200, L3410.9992, L101.9900, L3100.1350, L3200.1200, L503.6550, L3200.0500, L501.6710 #### [facility] Laboratory [address] [place], [address] Total proteinOrdered By: Senait Perez on 08-17-2025 Protein [Mass/Vol] 7.8 g/dL 5.9-8.4 [facility] White blood cell (WBC) count Ordered By: Red Perez on 08-17-2025 WBC (Bld) [#/Vol] 10.6 10*3/uL 4.4-11.0 [facility] Fluoroscopy 1 Hr or Lesson 0 08-13-2025 Fluoroscopy 1 Hr or Less [facility] Imaging Services [address] [place], [place] [address] Fluoroscopy 1 Hr or Less MR#: [id number] Acct: [id number] Name: HEIDI ANDREWS Rep #: [id number] : 1970 F 55 From: Imani Mcfarland MD PCP: Dr. Red Perez MD Status: [facility] Study: Fluoroscopy 1 Hr or Less Date of Exam: 5 Exam# [id number] Ordering Dr: Nikolai Kim MD PROCEDURE: FLUOROSCOPY [...] excursion suggestive of mild paralysis. Reading Location: [place] [address] CC: Dr. Red Perez MD; Dr. Nikolai Kim MD Master Control Supervisor: Signed Normal [facility] Absolute lymphocyte countOrd ered By: Red Perez on 06-27-2025 Lymphocytes Auto (Unsp spec) [#/Vol] 1.04 10*3/uL 0.83-4.51 [facility] Absolute neutrophil countOrd ered By: Red Perez on 06-27-2025 Neutrophils (Bld) [#/Vol] 4.1 10*3/uL 2.0-7.7 [facility] Anion gap in Serum or Plasma Ordered By: Red Perez on 06-27-2025 Anion gap [Moles/Vol] 17 mmol/L High 5-15 [facility] Automated lymphocyte count a s percentage of total leukocytesOrdered By: Red Perez on 06-27-2025 Lymphocytes/100 WBC Auto (Unsp spec) 18.2 % Low 19-41 [facility] BUN/creatinine ratioOrdered By: Red Perez on 06-27-2025 Urea nitrogen/Creatinine [Mass ratio] 10.8 mg/mg 10- [facility] Basic Metabolic Profile (BMP )on 06-27-2025 BUN/CRE 10.8 RATIO Normal - [facility] Comment on above: Performed By: #### L 503.0106, L500.4050, L501.1400, L400.0001, L503.6030, L3000.0800, L100.9950, L3890.6006, L501.5101, L100.0100, L504.2610, L501.5200, L506.0200, L3410.9992, L101.9900, L3100.1350, L3200.1200, L503.6550, L3200.0500, L501.6710 #### [facility] Laboratory [address] [place], [address] Calcium [Mass/Vol] 8.7 mg/dL Normal 7.6-11.0 [facility] Comment on above: Performed By: #### L 503.0106, L500.4050, L501.1400, L400.0001, L503.6030, L3000.0800, L100.9950, L3890.6006, L501.5101, L100.0100, L504.2610, L501.5200, L506.0200, L3410.9992, L101.9900, L3100.1350, L3200.1200, L503.6550, L3200.0500, L501.6710 #### [facility] Laboratory [address] [place], [place], [id number] Chloride [Moles/Vol] 98 mmol/L Normal 98-108 [facility] Comment on above: Performed By: #### L 503.0106, L500.4050, L501.1400, L400.0001, L503.6030, L3000.0800, L100.9950, L3890.6006, L501.5101, L100.0100, L504.2610, L501.5200, L506.0200, L3410.9992, L101.9900, L3100.1350, L3200.1200, L503.6550, L3200.0500, L501.6710 #### [facility] Laboratory [address] [place] [place], [address] CO2 [Moles/Vol] 24.2 mmol/L Normal 21.0-32.0 [facility] Comment on above: Performed By: #### L 503.0106, L500.4050, L501.1400, L400.0001, L503.6030, L3000.0800, L100.9950, L3890.6006, L501.5101, L100.0100, L504.2610, L501.5200, L506.0200, L3410.9992, L101.9900, L3100.1350, L3200.1200, L503.6550, L3200.0500, L501.6710 #### [facility] Laboratory [address] [place] [place], [address] Creatinine [Mass/Vol] 0.93 mg/dL Normal 0.70-1.20 [facility] Comment on above: Performed By: #### L 503.0106, L500.4050, L501.1400, L400.0001, L503.6030, L3000.0800, L100.9950, L3890.6006, L501.5101, L100.0100, L504.2610, L501.5200, L506.0200, L3410.9992, L101.9900, L3100.1350, L3200.1200, L503.6550, L3200.0500, L501.6710 #### [facility] Laboratory [address] [place], [place], [id number] GAP 17 High 5-15 [facility] Comment on above: Performed By: #### L 503.0106, L500.4050, L501.1400, L400.0001, L503.6030, L3000.0800, L100.9950, L3890.6006, L501.5101, L100.0100, L504.2610, L501.5200, L506.0200, L3410.9992, L101.9900, L3100.1350, L3200.1200, L503.6550, L3200.0500, L501.6710 #### [facility] Laboratory [address] [place], [address] GFR/1.73 sq M.predicted among non-blacks MDRD (S/P/Bld) [Vol rate/Area] 73 mL/min/{1.73_m2} Normal >60 [facility] Comment on above: Result Comment: mL/m in/1.73m2 CKD-EPI Creatinine Equation (2020) Performed By: #### L 503.0106, L500.4050, L501.1400, L400.0001, L503.6030, L3000.0800, L100.9950, L3890.6006, L501.5101, L100.0100, L504.2610, L501.5200, L506.0200, L3410.9992, L101.9900, L3100.1350, L3200.1200, L503.6550, L3200.0500, L501.6710 #### [facility] [address] [place], [place], [id number] Glucose [Mass/Vol] 198 mg/dL High 70-99 [facility] Comment on above: Performed By: #### L 503.0106, L500.4050, L501.1400, L400.0001, L503.6030, L3000.0800, L100.9950, L3890.6006, L501.5101, L100.0100, L504.2610, L501.5200, L506.0200, L3410.9992, L101.9900, L3100.1350, L3200.1200, L503.6550, L3200.0500, L501.6710 #### [facility] Laboratory [address] [place], [place], [id number] Potassium [Moles/Vol] 3.7 mmol/L Normal 3.3-5.1 [facility] Comment on above: Performed By: #### L 503.0106, L500.4050, L501.1400, L400.0001, L503.6030, L3000.0800, L100.9950, L3890.6006, L501.5101, L100.0100, L504.2610, L501.5200, L506.0200, L3410.9992, L101.9900, L3100.1350, L3200.1200, L503.6550, L3200.0500, L501.6710 #### [facility] [address] [place] [place], [address] Sodium [Moles/Vol] 139 mmol/L Normal 133-145 [facility] Comment on above: Performed By: #### L 503.0106, L500.4050, L501.1400, L400.0001, L503.6030, L3000.0800, L100.9950, L3890.6006, L501.5101, L100.0100, L504.2610, L501.5200, L506.0200, L3410.9992, L101.9900, L3100.1350, L3200.1200, L503.6550, L3200.0500, L501.6710 #### [facility] Laboratory [address] [place], [place], [id number] Urea nitrogen [Mass/Vol] 10 mg/dL Normal 4-19 [facility] Comment on above: Performed By: #### L 503.0106, L500.4050, L501.1400, L400.0001, L503.6030, L3000.0800, L100.9950, L3890.6006, L501.5101, L100.0100, L504.2610, L501.5200, L506.0200, L3410.9992, L101.9900, L3100.1350, L3200.1200, L503.6550, L3200.0500, L501.6710 #### [facility] Laboratory [address] [place] [place], [address] Basophil percentageOrdered B y: Red Preez on 06-27-2025 Basophils/100 WBC (Bld) 0.7 % 0-1 [facility] CBC W/Diff, Automatedon 06-15 Absolute Lymph 1.04 X10 3/uL Normal 0.83-4.51 [facility] Comment on above: Performed By: #### L 503.0106, L500.4050, L501.1400, L400.0001, L503.6030, L3000.0800, L100.9950, L3890.6006, L501.5101, L100.0100, L504.2610, L501.5200, L506.0200, L3410.9992, L101.9900, L3100.1350, L3200.1200, L503.6550, L3200.0500, L501.6710 #### [facility] Laboratory [address] [place], [address] Absolute Neut 4.1 X10 3/uL Normal 2.0-7.7 [facility] Comment on above: Performed By: #### L 503.0106, L500.4050, L501.1400, L400.0001, L503.6030, L3000.0800, L100.9950, L3890.6006, L501.5101, L100.0100, L504.2610, L501.5200, L506.0200, L3410.9992, L101.9900, L3100.1350, L3200.1200, L503.6550, L3200.0500, L501.6710 #### [facility] Laboratory [address] [place] [place], [address] Basophils/100 WBC (Bld) 0.7 % Normal 0-1 [facility] Comment on above: Performed By: #### L 503.0106, L500.4050, L501.1400, L400.0001, L503.6030, L3000.0800, L100.9950, L3890.6006, L501.5101, L100.0100, L504.2610, L501.5200, L506.0200, L3410.9992, L101.9900, L3100.1350, L3200.1200, L503.6550, L3200.0500, L501.6710 #### [facility] Laboratory [address] [place] [place], [address] Eosinophils/100 WBC (Bld) 3.8 % Normal 0-5 [facility] Comment on above: Performed By: #### L 503.0106, L500.4050, L501.1400, L400.0001, L503.6030, L3000.0800, L100.9950, L3890.6006, L501.5101, L100.0100, L504.2610, L501.5200, L506.0200, L3410.9992, L101.9900, L3100.1350, L3200.1200, L503.6550, L3200.0500, L501.6710 #### [facility] Laboratory [address] [place] [place], [address] Erythrocyte distribution width (RBC) [Ratio] 13.9 % Normal 11.6-14.6 [facility] Comment on above: Performed By: #### L 503.0106, L500.4050, L501.1400, L400.0001, L503.6030, L3000.0800, L100.9950, L3890.6006, L501.5101, L100.0100, L504.2610, L501.5200, L506.0200, L3410.9992, L101.9900, L3100.1350, L3200.1200, L503.6550, L3200.0500, L501.6710 #### [facility] Laboratory [address] [place], [address] Hematocrit (Bld) [Volume fraction] 33.6 % Low 37-47 [facility] Comment on above: Performed By: #### L 503.0106, L500.4050, L501.1400, L400.0001, L503.6030, L3000.0800, L100.9950, L3890.6006, L501.5101, L100.0100, L504.2610, L501.5200, L506.0200, L3410.9992, L101.9900, L3100.1350, L3200.1200, L503.6550, L3200.0500, L501.6710 #### [facility] Laboratory [address] [place], [address] Hemoglobin (Bld) [Mass/Vol] 10.7 g/dL Low 12.0-15. 0 [facility] Comment on above: Performed By: #### L 503.0106, L500.4050, L501.1400, L400.0001, L503.6030, L3000.0800, L100.9950, L3890.6006, L501.5101, L100.0100, L504.2610, L501.5200, L506.0200, L3410.9992, L101.9900, L3100.1350, L3200.1200, L503.6550, L3200.0500, L501.6710 #### [facility] [address] [place], [address] IG% 1.000 High 0.0-0.9 [facility] Comment on above: Result Comment: IG% - Immature Granulocytes (promyelocytes, myelocytes and metamyelocytes) > 1% indicates that a LEFT SHIFT is Present. Performed By: #### L 503.0106, L500.4050, L501.1400, L400.0001, L503.6030, L3000.0800, L100.9950, L3890.6006, L501.5101, L100.0100, L504.2610, L501.5200, L506.0200, L3410.9992, L101.9900, L3100.1350, L3200.1200, L503.6550, L3200.0500, L501.6710 #### [facility] Laboratory [address] [place], [place], [id number] (802) Lymphocytes/100 WBC (Bld) 18.2 % Low 19-41 [facility] Comment on above: Performed By: #### L 503.0106, L500.4050, L501.1400, L400.0001, L503.6030, L3000.0800, L100.9950, L3890.6006, L501.5101, L100.0100, L504.2610, L501.5200, L506.0200, L3410.9992, L101.9900, L3100.1350, L3200.1200, L503.6550, L3200.0500, L501.6710 #### [facility] Laboratory [address] [place], [address] MCH (RBC) [Entitic mass] 27.9 pg Normal 27.0-32.0 [facility] Comment on above: Performed By: #### L 503.0106, L500.4050, L501.1400, L400.0001, L503.6030, L3000.0800, L100.9950, L3890.6006, L501.5101, L100.0100, L504.2610, L501.5200, L506.0200, L3410.9992, L101.9900, L3100.1350, L3200.1200, L503.6550, L3200.0500, L501.6710 #### [facility] Laboratory [address] [place], [address] MCHC (RBC) [Mass/Vol] 31.8 g/dL Low 32-36 [facility] Comment on above: Performed By: #### L 503.0106, L500.4050, L501.1400, L400.0001, L503.6030, L3000.0800, L100.9950, L3890.6006, L501.5101, L100.0100, L504.2610, L501.5200, L506.0200, L3410.9992, L101.9900, L3100.1350, L3200.1200, L503.6550, L3200.0500, L501.6710 #### [facility] [address] [place], [address] MCV (RBC) [Entitic vol] 87.5 fL Normal 81-99 [facility] Comment on above: Performed By: #### L 503.0106, L500.4050, L501.1400, L400.0001, L503.6030, L3000.0800, L100.9950, L3890.6006, L501.5101, L100.0100, L504.2610, L501.5200, L506.0200, L3410.9992, L101.9900, L3100.1350, L3200.1200, L503.6550, L3200.0500, L501.6710 #### [facility] [address] [place] [place], [address] Monocytes/100 WBC (Bld) 5.2 % Normal 0-10 [facility] Comment on above: Performed By: #### L 503.0106, L500.4050, L501.1400, L400.0001, L503.6030, L3000.0800, L100.9950, L3890.6006, L501.5101, L100.0100, L504.2610, L501.5200, L506.0200, L3410.9992, L101.9900, L3100.1350, L3200.1200, L503.6550, L3200.0500, L501.6710 #### [facility] [address] [place], [address] (714) Neutrophils/100 WBC (Bld) 71.1 % High 47-70 [facility] Comment on above: Performed By: #### L 503.0106, L500.4050, L501.1400, L400.0001, L503.6030, L3000.0800, L100.9950, L3890.6006, L501.5101, L100.0100, L504.2610, L501.5200, L506.0200, L3410.9992, L101.9900, L3100.1350, L3200.1200, L503.6550, L3200.0500, L501.6710 #### [facility] [address] [place] [place], [address] Nucleated RBC (Bld) [#/Vol] 0 10*3/uL Normal 0-5 [facility] Comment on above: Performed By: #### L 503.0106, L500.4050, L501.1400, L400.0001, L503.6030, L3000.0800, L100.9950, L3890.6006, L501.5101, L100.0100, L504.2610, L501.5200, L506.0200, L3410.9992, L101.9900, L3100.1350, L3200.1200, L503.6550, L3200.0500, L501.6710 #### [facility] [address] [place], [address] Platelet mean volume (Bld) [Entitic vol] 9.9 fL Normal 6.2-12.0 [facility] Comment on above: Performed By: #### L 503.0106, L500.4050, L501.1400, L400.0001, L503.6030, L3000.0800, L100.9950, L3890.6006, L501.5101, L100.0100, L504.2610, L501.5200, L506.0200, L3410.9992, L101.9900, L3100.1350, L3200.1200, L503.6550, L3200.0500, L501.6710 #### [facility] [address] [place], [place], [address] (514) Platelets (Bld) [#/Vol] 244 10*3/uL Normal 150-450 [facility] Comment on above: Performed By: #### L 503.0106, L500.4050, L501.1400, L400.0001, L503.6030, L3000.0800, L100.9950, L3890.6006, L501.5101, L100.0100, L504.2610, L501.5200, L506.0200, L3410.9992, L101.9900, L3100.1350, L3200.1200, L503.6550, L3200.0500, L501.6710 #### [facility] [address] [place], [place], [address] (943) RBC (Bld) [#/Vol] 3.84 10*6/uL Low 4.2-5.4 [facility] Comment on above: Performed By: #### L 503.0106, L500.4050, L501.1400, L400.0001, L503.6030, L3000.0800, L100.9950, L3890.6006, L501.5101, L100.0100, L504.2610, L501.5200, L506.0200, L3410.9992, L101.9900, L3100.1350, L3200.1200, L503.6550, L3200.0500, L501.6710 #### [facility] [address] [place], [address] RDW SD 43.7 fl Normal 35.1-43.9 [facility] Comment on above: Performed By: #### L 503.0106, L500.4050, L501.1400, L400.0001, L503.6030, L3000.0800, L100.9950, L3890.6006, L501.5101, L100.0100, L504.2610, L501.5200, L506.0200, L3410.9992, L101.9900, L3100.1350, L3200.1200, L503.6550, L3200.0500, L501.6710 #### [facility] [address] [place], [address] WBC (Bld) [#/Vol] 5.7 10*3/uL Normal 4.4-11.0 [facility] Comment on above: Performed By: #### L 503.0106, L500.4050, L501.1400, L400.0001, L503.6030, L3000.0800, L100.9950, L3890.6006, L501.5101, L100.0100, L504.2610, L501.5200, L506.0200, L3410.9992, L101.9900, L3100.1350, L3200.1200, L503.6550, L3200.0500, L501.6710 #### [facility] [address] [place] [place], [address] Calculated very low density lipoprotein (VLDL) cholesterol measurementOrdered By: Red Perez on 06-27-2025 Calculated very low density lipoprotein (VLDL) cholesterol measurement 45 mg/dL High 5-40 [facility] Carbon dioxide, total [Moles /volume] in Central venous bloodOrdered By: Red Perez on 06-27-2025 CO2 [Moles/Vol] 24.2 mmol/L 21.0-32.0 [facility] Chloride assayOrdered By: Edy Perez on 06-27-2025 Chloride [Moles/Vol] 98 mmol/L 98-108 [facility] Eosinophil percentageOrdered By: Red Perez on 06-27-2025 Eosinophils/100 WBC (Bld) 3.8 % 0-5 [facility] Erythrocyte distribution wid th ratioOrdered By: Red Perez on 06-27-2025 Erythrocyte distribution width (RBC) [Ratio] 13.9 % 11.6-14.6 [facility] Erythrocyte distribution wid th standard deviationOrdered By: Red Perez on 06-27-2025 Erythrocyte distribution width (RBC) [Ratio] 43.7 fl 35.1-43.9 [facility] Ferritinon 06-27-2025 Ferritin [Mass/Vol] 108 ng/mL Normal 22-378 [facility] Comment on above: Performed By: #### L 503.0106, L500.4050, L501.1400, L400.0001, L503.6030, L3000.0800, L100.9950, L3890.6006, L501.5101, L100.0100, L504.2610, L501.5200, L506.0200, L3410.9992, L101.9900, L3100.1350, L3200.1200, L503.6550, L3200.0500, L501.6710 #### [facility] [address] [place], [address] Glomerular filtration rate ( GFR) estimation/1.73 sq m using serum, plasma, or whole bOrdered By: Red Perez on 06-27-2025 GFR/1.73 sq M.predicted among non-blacks MDRD (S/P/Bld) [Vol rate/Area] 73 mL/min/{1.73_m2} >60 [facility] Comment on above: mL/min/1.73m2 CKD-EP I Creatinine Equation (2020) Hematocrit Auto (Bld) [Volum e fraction]Ordered By: Red Perez on 06-27-2025 Hematocrit (Bld) [Volume fraction] 33.6 % Low 37-47 [facility] Hemoglobin measurementOrdere d By: Red Perez on 06-27-2025 Hemoglobin (Bld) [Mass/Vol] 10.7 g/dL Low 12.0-15. 0 [facility] Immature granulocytes/100 WB C Auto (Bld)Ordered By: Red Perez on 06-27-2025 Immature granulocytes/100 WBC (Bld) 1.000 % High 0.0-0.9 [facility] Comment on above: IG% - Immature Granu locytes (promyelocytes, myelocytes and metamyelocytes) > 1% indicates that a LEFT SHIFT is Present. Iron measurement (mass/mass) Ordered By: Red Perez on 06-27-2025 Iron (Unsp spec) [Mass/Mass] 53 ug/dL 50-170 [facility] Iron+Iron Binding Capacityon 06-27-2025 Iron [Mass/Vol] 53 ug/dL Normal 50-170 [facility] Comment on above: Performed By: #### L 503.0106, L500.4050, L501.1400, L400.0001, L503.6030, L3000.0800, L100.9950, L3890.6006, L501.5101, L100.0100, L504.2610, L501.5200, L506.0200, L3410.9992, L101.9900, L3100.1350, L3200.1200, L503.6550, L3200.0500, L501.6710 #### [facility] [address] [place], [address] IRON SATURATION 14.0 Normal 13-59 [facility] Comment on above: Performed By: #### L 503.0106, L500.4050, L501.1400, L400.0001, L503.6030, L3000.0800, L100.9950, L3890.6006, L501.5101, L100.0100, L504.2610, L501.5200, L506.0200, L3410.9992, L101.9900, L3100.1350, L3200.1200, L503.6550, L3200.0500, L501.6710 #### [facility] [address] [place], [place], [id number] TIBC 377 ug/dL Normal 250-450 [facility] Comment on above: Performed By: #### L 503.0106, L500.4050, L501.1400, L400.0001, L503.6030, L3000.0800, L100.9950, L3890.6006, L501.5101, L100.0100, L504.2610, L501.5200, L506.0200, L3410.9992, L101.9900, L3100.1350, L3200.1200, L503.6550, L3200.0500, L501.6710 #### [facility] [address] [place], [place], [id number] UIBC 324 ug/dL Normal 228-428 [facility] Comment on above: Performed By: #### L 503.0106, L500.4050, L501.1400, L400.0001, L503.6030, L3000.0800, L100.9950, L3890.6006, L501.5101, L100.0100, L504.2610, L501.5200, L506.0200, L3410.9992, L101.9900, L3100.1350, L3200.1200, L503.6550, L3200.0500, L501.6710 #### [facility] [address] [place], [place], [id number] LDL calc ser/plasOrdered By: Red Perez on 06-27-2025 Cholesterol in LDL [Mass/Vol] 102 mg/dL [facility] Comment on above: Ewnkkqmngu=690-716 m g/dL & Higher Aoum=145 mg/dL or greaterFriedwald Equation for LDL-C Lipid Profileon 06-27-2025 CHOL:HDL 5.31 Normal [facility] Comment on above: Performed By: #### L 503.0106, L500.4050, L501.1400, L400.0001, L503.6030, L3000.0800, L100.9950, L3890.6006, L501.5101, L100.0100, L504.2610, L501.5200, L506.0200, L3410.9992, L101.9900, L3100.1350, L3200.1200, L503.6550, L3200.0500, L501.6710 #### [facility] [address], [place], [id number] Cholesterol [Mass/Vol] 181 mg/dL Normal <=200 [facility] Comment on above: Result Comment: Chol esterol level, Desirable <200 mg/dL Borderline high cholesterol 200-239 mg/dL High cholesterol >=240 mg/dL Recommendations of the NCEP Adult Treatment Panel for the following risk-cutoff thresholds for the [place] population. Performed By: #### L 503.0106, L500.4050, L501.1400, L400.0001, L503.6030, L3000.0800, L100.9950, L3890.6006, L501.5101, L100.0100, L504.2610, L501.5200, L506.0200, L3410.9992, L101.9900, L3100.1350, L3200.1200, L503.6550, L3200.0500, L501.6710 #### [facility] [address] [place], [place], [id number] Cholesterol in HDL [Mass/Vol] 34 mg/dL Low [facility] Comment on above: Result Comment: [...] L101.9900, L3100.1350, L3200.1200, L503.6550, L3200.0500, L501.6710 #### [facility] [address] [facility] [place], [place], [id number] Cholesterol in LDL [Mass/Vol] 102 mg/dL Normal [facility] Comment on above: Result Comment: Bord wtcwmv=639-153 mg/dL Higher Naqf=630 mg/dL or greater Friedwald Equation for LDL-C Performed By: #### L 503.0106, L500.4050, L501.1400, L400.0001, L503.6030, L3000.0800, L100.9950, L3890.6006, L501.5101, L100.0100, L504.2610, L501.5200, L506.0200, L3410.9992, L101.9900, L3100.1350, L3200.1200, L503.6550, L3200.0500, L501.6710 #### [facility] [address] [place], [address] Cholesterol in VLDL [Mass/Vol] 45 mg/dL High 5-40 [facility] Comment on above: Performed By: #### L 503.0106, L500.4050, L501.1400, L400.0001, L503.6030, L3000.0800, L100.9950, L3890.6006, L501.5101, L100.0100, L504.2610, L501.5200, L506.0200, L3410.9992, L101.9900, L3100.1350, L3200.1200, L503.6550, L3200.0500, L501.6710 #### [facility] [address], [place], [id number] Triglyceride [Mass/Vol] 224 mg/dL High [facility] Comment on above: Result Comment: The drugs N-Acetylcysteine and Metamizole may falsely depress this assay. Normal range: <150 mg/dL Borderline High: 150-199 mg/dL High: 200-499 mg/dL Very High: >500 mg/dL Performed By: #### L 503.0106, L500.4050, L501.1400, L400.0001, L503.6030, L3000.0800, L100.9950, L3890.6006, L501.5101, L100.0100, L504.2610, L501.5200, L506.0200, L3410.9992, L101.9900, L3100.1350, L3200.1200, L503.6550, L3200.0500, L501.6710 #### [facility] [address], [place], [id number] MCV (mean corpuscular volume ) determinationOrdered By: Red Perez on 06-27-2025 MCV (RBC) [Entitic vol] 87.5 fL 81-99 [facility] Mean corpuscular hemoglobin (MCH) determinationOrdered By: Red Perez on 06-27-2025 MCH (RBC) [Entitic mass] 27.9 pg 27.0-32.0 [facility] Mean corpuscular hemoglobin concentration (MCHC) determinationOrdered By: Red Perez on 06-27-2025 MCHC (RBC) [Mass/Vol] 31.8 g/dL Low 32-36 [facility] Mean platelet volume determi nationOrdered By: Red Perez on 06-27-2025 Platelet mean volume (Bld) [Entitic vol] 9.9 fL 6.2-12.0 [facility] Microalb:Creat Ratio,Random URon 06-27-2025 Creatinine [Mass/Vol] 91.20 mg/dL Normal 28.00-217.00 [facility] Comment on above: Performed By: #### L 503.0106, L500.4050, L501.1400, L400.0001, L503.6030, L3000.0800, L100.9950, L3890.6006, L501.5101, L100.0100, L504.2610, L501.5200, L506.0200, L3410.9992, L101.9900, L3100.1350, L3200.1200, L503.6550, L3200.0500, L501.6710 #### [facility] [address] [facility] [place], [place], [id number] MALB:CREAT UNABLE TO CALCULATE Normal <30 mg/g CRE [facility] Comment on above: Performed By: #### L 503.0106, L500.4050, L501.1400, L400.0001, L503.6030, L3000.0800, L100.9950, L3890.6006, L501.5101, L100.0100, L504.2610, L501.5200, L506.0200, L3410.9992, L101.9900, L3100.1350, L3200.1200, L503.6550, L3200.0500, L501.6710 #### [facility] [address] [place] [place], [address] MICROALBUMIN,UR < 12.0 Normal <20 mg/L [facility] Comment on above: Performed By: #### L 503.0106, L500.4050, L501.1400, L400.0001, L503.6030, L3000.0800, L100.9950, L3890.6006, L501.5101, L100.0100, L504.2610, L501.5200, L506.0200, L3410.9992, L101.9900, L3100.1350, L3200.1200, L503.6550, L3200.0500, L501.6710 #### [facility] [address] [place] [place], [address] Microalbumin/creat ratio urO rdered By: Red Perez on 06-27-2025 Urine microalbumin/creatinine ratio measurement UNABLE TO CALCULATE mg/g CRE <30 [facility] Monocyte percentageOrdered B y: Red Perez on 06-27-2025 Monocytes/100 WBC (Bld) 5.2 % 0-10 [facility] Neutrophil percentageOrdered By: Red Perez on 06-27-2025 Neutrophils/100 WBC (Bld) 71.1 % High 47-70 [facility] No Panel InformationOrdered By: Red Perez on 06-27-2025 Unsaturated Iron Binding Capacity 324 ug/dL 228-428 [facility] 324 ug/dL 228-428 [facility] Nucleated red blood cell per centageOrdered By: Red Perez on 06-27-2025 Nucleated RBC/100 WBC (Bld) [Ratio] 0 % 0-5 [facility] Platelet countOrdered By: Edy Perez on 06-27-2025 Platelets (Bld) [#/Vol] 244 10*3/uL 150-450 [facility] Potassium measurement (mass/ volume)Ordered By: Red Perez on 06-27-2025 Potassium (Unsp spec) [Mass/Vol] 3.7 mmol/L 3.3-5.1 [facility] RBC Auto (Bld) [#/Vol]Ordere d By: Red Peerz on 06-27-2025 RBC (Bld) [#/Vol] 3.84 10*6/uL Low 4.2-5.4 [facility] Random urine creatinine sandy urement (mass/volume)Ordered By: Red Perez on 06-27-2025 Creatinine Unsp time (U) [Mass/Vol] 91.20 mg/dL 28.00-217.00 [facility] Screening total cholesterol/ high density lipoprotein (HDL) cholesterol ratioOrdered By: Red Perez on 06-27-2025 Cholesterol.total/Cholester ol in HDL [Mass ratio] 5.31 {ratio} [facility] Serum creatinine measurement (mass/volume)Ordered By: Red Perez on 06-27-2025 Creatinine [Mass/Vol] 0.93 mg/dL 0.70-1.20 [facility] Serum glucose measurement (m ass/volume)Ordered By: Red Perez on 06-27-2025 Glucose [Mass/Vol] 198 mg/dL High 70-99 [facility] Serum or plasma calcium sandy urement (mass/volume)Ordered By: Red Perez on 06-27-2025 Calcium [Mass/Vol] 8.7 mg/dL 7.6-11.0 [facility] Serum or plasma cholesterol in HDL measurement (mass/volume)Ordered By: Red Perez on 06-27-2025 Cholesterol in HDL [Mass/Vol] 34 mg/dL Low >40 [facility] Comment on above: National Cholesterol Education Program (NCEP) guidelines:<40 mg/dL: Low HDL-cholesterol (major risk factor for CHD)>= 60 mg/dL: High HDL-cholesterol (negative risk factor for CHD)HDL-cholesterol is affected by a number of factors, e.g. smoking, exercise, hormones, sex and age. Serum or plasma cholesterol measurement (mass/volume)Ordered By: Red Perez on 06-27-2025 Cholesterol [Mass/Vol] 181 mg/dL <201 [facility] Comment on above: Cholesterol level, D esirable <200 mg/dLBorderline high cholesterol 200-239 mg/dLHigh cholesterol >=240 mg/dLRecommendations of the NCEP Adult Treatment Panel for the following risk-cutoff thresholds for the [place] population. Serum or plasma ferritin darrel surement (mass/volume)Ordered By: Red Perez on 06-27-2025 Ferritin [Mass/Vol] 108 ng/mL 22-378 [facility] Serum or plasma iron saturat ion measurement (mass fraction)Ordered By: Red Perez on 06-27-2025 Iron saturation [Mass fraction] 14.0 % 13-59 [facility] Serum or plasma urea nitroge n measurement (mass/volume)Ordered By: Red Perez on 06-27-2025 Urea nitrogen [Mass/Vol] 10 mg/dL 4-19 [facility] Sodium levelOrdered By: Red Perez on 06-27-2025 Sodium [Moles/Vol] 139 mmol/L 133-145 [facility] Triglycerides measurementOrd ered By: Red Perez on 06-27-2025 Triglyceride [Mass/Vol] 224 mg/dL High <199 [facility] Comment on above: The drugs N-Acetylcy steine and Metamizole may falsely depress this assay. Normal range: <150 mg/dLBorderline High: 150-199 mg/dLHigh: 200-499 mg/dLVery High: >500 mg/dL Urine albumin measurement [facility] detection limit of 20 mg/L or less (mass/volume)Ordered By: Red Perez on 06-27-2025 Albumin DL <= 20 mg/L (U) [Mass/Vol] < 12.0 mg/L <20 mg/L [facility] White blood cell (WBC) count Ordered By: Red Perez on 06-27-2025 WBC (Bld) [#/Vol] 5.7 10*3/uL 4.4-11.0 [facility] Chest PA and Lateralon 06-15 Chest PA and Lateral [facility] Imaging Services [address] [place], [place] [address] Chest PA and Lateral MR#: [id number] Acct: [id number] Name: HEIDI ANDREWS Rep #: [id number] : 1970 F 55 From: Magdy Bowling PCP: Dr. Red Perez MD Status: REG CLI Study: Chest PA and Lateral Date of Exam: 06/15/25 Exam# [id number] Ordering Dr: Nikolai Kim MD PROCEDURE: CHEST [...] evidence of acute cardiopulmonary disease. Reading Location: [place] [address] CC: Dr. Red Perez MD; Dr. Nikolai Kim MD Master Control Supervisor: Signed Normal [facility] Absolute lymphocyte countOrd ered By: Glen Chapman on 06-04-2025 Lymphocytes Auto (Unsp spec) [#/Vol] 1.05 10*3/uL 0.83-4.51 [facility] Absolute neutrophil countOrd ered By: Glen Statonrito on 06-04-2025 Neutrophils (Bld) [#/Vol] 4.4 10*3/uL 2.0-7.7 [facility] Anion gap in Serum or Plasma Ordered By: Glen Chapman on 06-04-2025 Anion gap [Moles/Vol] 15 mmol/L 5-15 [facility] Automated lymphocyte count a s percentage of total leukocytesOrdered By: Glen Chapman on 06-04-2025 Lymphocytes/100 WBC Auto (Unsp spec) 17.1 % Low 19- [facility] BUN/creatinine ratioOrdered By: Glen Chapman on 06-04-2025 Urea nitrogen/Creatinine [Mass ratio] 10.3 mg/mg 10- [facility] Basophil percentageOrdered B y: Glen Chapman on 06-04-2025 Basophils/100 WBC (Bld) 0.5 % 0-1 [facility] Bilirubin, totalOrdered By: Glen Chapman on 06-04-2025 Bilirubin [Mass/Vol] 0.26 mg/dL 0.00-1.30 [facility] CBC W/Diff, Automatedon 05-16 Absolute Lymph 1.05 X10 3/uL Normal 0.83-4.51 [facility] Comment on above: Performed By: #### L 503.0106, L500.4050, L501.1400, L400.0001, L503.6030, L3000.0800, L100.9950, L3890.6006, L501.5101, L100.0100, L504.2610, L501.5200, L506.0200, L3410.9992, L101.9900, L3100.1350, L3200.1200, L503.6550, L3200.0500, L501.6710 #### [facility] [address] [place], [place], [address] Absolute Neut 4.4 X10 3/uL Normal 2.0-7.7 [facility] Comment on above: Performed By: #### L 503.0106, L500.4050, L501.1400, L400.0001, L503.6030, L3000.0800, L100.9950, L3890.6006, L501.5101, L100.0100, L504.2610, L501.5200, L506.0200, L3410.9992, L101.9900, L3100.1350, L3200.1200, L503.6550, L3200.0500, L501.6710 #### [facility] [address], [place], [id number] (968) Basophils/100 WBC (Bld) 0.5 % Normal 0-1 [facility] Comment on above: Performed By: #### L 503.0106, L500.4050, L501.1400, L400.0001, L503.6030, L3000.0800, L100.9950, L3890.6006, L501.5101, L100.0100, L504.2610, L501.5200, L506.0200, L3410.9992, L101.9900, L3100.1350, L3200.1200, L503.6550, L3200.0500, L501.6710 #### [facility] [address] [facility] [place], [place], [id number] (822) Eosinophils/100 WBC (Bld) 4.7 % Normal 0-5 [facility] Comment on above: Performed By: #### L 503.0106, L500.4050, L501.1400, L400.0001, L503.6030, L3000.0800, L100.9950, L3890.6006, L501.5101, L100.0100, L504.2610, L501.5200, L506.0200, L3410.9992, L101.9900, L3100.1350, L3200.1200, L503.6550, L3200.0500, L501.6710 #### [facility] [address] [place] [place], [address] Erythrocyte distribution width (RBC) [Ratio] 15.2 % High 11.6-14.6 [facility] Comment on above: Performed By: #### L 503.0106, L500.4050, L501.1400, L400.0001, L503.6030, L3000.0800, L100.9950, L3890.6006, L501.5101, L100.0100, L504.2610, L501.5200, L506.0200, L3410.9992, L101.9900, L3100.1350, L3200.1200, L503.6550, L3200.0500, L501.6710 #### [facility] [address] [place] [place], [address] Hematocrit (Bld) [Volume fraction] 35.0 % Low 37-47 [facility] Comment on above: Performed By: #### L 503.0106, L500.4050, L501.1400, L400.0001, L503.6030, L3000.0800, L100.9950, L3890.6006, L501.5101, L100.0100, L504.2610, L501.5200, L506.0200, L3410.9992, L101.9900, L3100.1350, L3200.1200, L503.6550, L3200.0500, L501.6710 #### [facility] [address] [facility] [place], [address] Hemoglobin (Bld) [Mass/Vol] 11.3 g/dL Low 12.0-15. 0 [facility] Comment on above: Performed By: #### L 503.0106, L500.4050, L501.1400, L400.0001, L503.6030, L3000.0800, L100.9950, L3890.6006, L501.5101, L100.0100, L504.2610, L501.5200, L506.0200, L3410.9992, L101.9900, L3100.1350, L3200.1200, L503.6550, L3200.0500, L501.6710 #### [facility] [address] [place], [address] IG% 1.300 High 0.0-0.9 [facility] Comment on above: Result Comment: IG% - Immature Granulocytes (promyelocytes, myelocytes and metamyelocytes) > 1% indicates that a LEFT SHIFT is Present. Performed By: #### L 503.0106, L500.4050, L501.1400, L400.0001, L503.6030, L3000.0800, L100.9950, L3890.6006, L501.5101, L100.0100, L504.2610, L501.5200, L506.0200, L3410.9992, L101.9900, L3100.1350, L3200.1200, L503.6550, L3200.0500, L501.6710 #### [facility] [address] [facility] [place], [place], [id number] ([address] Lymphocytes/100 WBC (Bld) 17.1 % Low 19-41 [facility] Comment on above: Performed By: #### L 503.0106, L500.4050, L501.1400, L400.0001, L503.6030, L3000.0800, L100.9950, L3890.6006, L501.5101, L100.0100, L504.2610, L501.5200, L506.0200, L3410.9992, L101.9900, L3100.1350, L3200.1200, L503.6550, L3200.0500, L501.6710 #### [facility] [address] [place] [place], [address] MCH (RBC) [Entitic mass] 28.0 pg Normal 27.0-32.0 [facility] Comment on above: Performed By: #### L 503.0106, L500.4050, L501.1400, L400.0001, L503.6030, L3000.0800, L100.9950, L3890.6006, L501.5101, L100.0100, L504.2610, L501.5200, L506.0200, L3410.9992, L101.9900, L3100.1350, L3200.1200, L503.6550, L3200.0500, L501.6710 #### [facility] [address] [place], [place], [id number] MCHC (RBC) [Mass/Vol] 32.3 g/dL Normal 32-36 [facility] Comment on above: Performed By: #### L 503.0106, L500.4050, L501.1400, L400.0001, L503.6030, L3000.0800, L100.9950, L3890.6006, L501.5101, L100.0100, L504.2610, L501.5200, L506.0200, L3410.9992, L101.9900, L3100.1350, L3200.1200, L503.6550, L3200.0500, L501.6710 #### [facility] [address] [place], [address] MCV (RBC) [Entitic vol] 86.6 fL Normal 81-99 [facility] Comment on above: Performed By: #### L 503.0106, L500.4050, L501.1400, L400.0001, L503.6030, L3000.0800, L100.9950, L3890.6006, L501.5101, L100.0100, L504.2610, L501.5200, L506.0200, L3410.9992, L101.9900, L3100.1350, L3200.1200, L503.6550, L3200.0500, L501.6710 #### [facility] [address] [place], [address] Monocytes/100 WBC (Bld) 5.5 % Normal 0-10 [facility] Comment on above: Performed By: #### L 503.0106, L500.4050, L501.1400, L400.0001, L503.6030, L3000.0800, L100.9950, L3890.6006, L501.5101, L100.0100, L504.2610, L501.5200, L506.0200, L3410.9992, L101.9900, L3100.1350, L3200.1200, L503.6550, L3200.0500, L501.6710 #### [facility] [address] [place], [place], [id number] Neutrophils/100 WBC (Bld) 70.9 % High 47-70 [facility] Comment on above: Performed By: #### L 503.0106, L500.4050, L501.1400, L400.0001, L503.6030, L3000.0800, L100.9950, L3890.6006, L501.5101, L100.0100, L504.2610, L501.5200, L506.0200, L3410.9992, L101.9900, L3100.1350, L3200.1200, L503.6550, L3200.0500, L501.6710 #### [facility] [address] [place], [place], [id number] Nucleated RBC (Bld) [#/Vol] 0 10*3/uL Normal 0-5 [facility] Comment on above: Performed By: #### L 503.0106, L500.4050, L501.1400, L400.0001, L503.6030, L3000.0800, L100.9950, L3890.6006, L501.5101, L100.0100, L504.2610, L501.5200, L506.0200, L3410.9992, L101.9900, L3100.1350, L3200.1200, L503.6550, L3200.0500, L501.6710 #### [facility] [address] [place], [address] Platelet mean volume (Bld) [Entitic vol] 9.6 fL Normal 6.2-12.0 [facility] Comment on above: Performed By: #### L 503.0106, L500.4050, L501.1400, L400.0001, L503.6030, L3000.0800, L100.9950, L3890.6006, L501.5101, L100.0100, L504.2610, L501.5200, L506.0200, L3410.9992, L101.9900, L3100.1350, L3200.1200, L503.6550, L3200.0500, L501.6710 #### [facility] [address] [place], [address] Platelets (Bld) [#/Vol] 241 10*3/uL Normal 150-450 [facility] Comment on above: Performed By: #### L 503.0106, L500.4050, L501.1400, L400.0001, L503.6030, L3000.0800, L100.9950, L3890.6006, L501.5101, L100.0100, L504.2610, L501.5200, L506.0200, L3410.9992, L101.9900, L3100.1350, L3200.1200, L503.6550, L3200.0500, L501.6710 #### [facility] [address] [place], [address] RBC (Bld) [#/Vol] 4.04 10*6/uL Low 4.2-5.4 [facility] Comment on above: Performed By: #### L 503.0106, L500.4050, L501.1400, L400.0001, L503.6030, L3000.0800, L100.9950, L3890.6006, L501.5101, L100.0100, L504.2610, L501.5200, L506.0200, L3410.9992, L101.9900, L3100.1350, L3200.1200, L503.6550, L3200.0500, L501.6710 #### [facility] [address] [place], [place], [id number] RDW SD 47.2 fl High 35.1-43.9 [facility] Comment on above: Performed By: #### L 503.0106, L500.4050, L501.1400, L400.0001, L503.6030, L3000.0800, L100.9950, L3890.6006, L501.5101, L100.0100, L504.2610, L501.5200, L506.0200, L3410.9992, L101.9900, L3100.1350, L3200.1200, L503.6550, L3200.0500, L501.6710 #### [facility] [address] [place], [address] WBC (Bld) [#/Vol] 6.2 10*3/uL Normal 4.4-11.0 [facility] Comment on above: Performed By: #### L 503.0106, L500.4050, L501.1400, L400.0001, L503.6030, L3000.0800, L100.9950, L3890.6006, L501.5101, L100.0100, L504.2610, L501.5200, L506.0200, L3410.9992, L101.9900, L3100.1350, L3200.1200, L503.6550, L3200.0500, L501.6710 #### [facility] [address] [place], [place], [id number] CRPon 06-04-2025 C-REACTIVE PROT 23.30 mg/L High 0.0-3.0 [facility] Comment on above: Performed By: #### L 503.0106, L500.4050, L501.1400, L400.0001, L503.6030, L3000.0800, L100.9950, L3890.6006, L501.5101, L100.0100, L504.2610, L501.5200, L506.0200, L3410.9992, L101.9900, L3100.1350, L3200.1200, L503.6550, L3200.0500, L501.6710 #### [facility] [address] [place], [address] Carbon dioxide, total [Moles /volume] in Central venous bloodOrdered By: Glen Chapman on 06-04-2025 CO2 [Moles/Vol] 24.0 mmol/L 21.0-32.0 [facility] Chloride assayOrdered By: Jaimee Chapman on 06-04-2025 Chloride [Moles/Vol] 96 mmol/L Low 98-108 [facility] Comprehensive Metabolic Prof ilon 06-04-2025 Albumin [Mass/Vol] 4.2 g/dL Normal 3.5-5.0 [facility] Comment on above: Performed By: #### L 503.0106, L500.4050, L501.1400, L400.0001, L503.6030, L3000.0800, L100.9950, L3890.6006, L501.5101, L100.0100, L504.2610, L501.5200, L506.0200, L3410.9992, L101.9900, L3100.1350, L3200.1200, L503.6550, L3200.0500, L501.6710 #### [facility] [address] [place], [address] Albumin/Globulin [Mass ratio] 1.6 {ratio} Normal 0.9-2.4 [facility] Comment on above: Performed By: #### L 503.0106, L500.4050, L501.1400, L400.0001, L503.6030, L3000.0800, L100.9950, L3890.6006, L501.5101, L100.0100, L504.2610, L501.5200, L506.0200, L3410.9992, L101.9900, L3100.1350, L3200.1200, L503.6550, L3200.0500, L501.6710 #### [facility] [address] [place], [address] ALK PHOS 83 U/L Normal 35-104 [facility] Comment on above: Performed By: #### L 503.0106, L500.4050, L501.1400, L400.0001, L503.6030, L3000.0800, L100.9950, L3890.6006, L501.5101, L100.0100, L504.2610, L501.5200, L506.0200, L3410.9992, L101.9900, L3100.1350, L3200.1200, L503.6550, L3200.0500, L501.6710 #### [facility] [address] [place], [address] ALT [Catalytic activity/Vol] 12 U/L Normal <=34 [facility] Comment on above: Performed By: #### L 503.0106, L500.4050, L501.1400, L400.0001, L503.6030, L3000.0800, L100.9950, L3890.6006, L501.5101, L100.0100, L504.2610, L501.5200, L506.0200, L3410.9992, L101.9900, L3100.1350, L3200.1200, L503.6550, L3200.0500, L501.6710 #### [facility] [address] [place], [address] AST [Catalytic activity/Vol] 17 U/L Normal <=31 [facility] Comment on above: Performed By: #### L 503.0106, L500.4050, L501.1400, L400.0001, L503.6030, L3000.0800, L100.9950, L3890.6006, L501.5101, L100.0100, L504.2610, L501.5200, L506.0200, L3410.9992, L101.9900, L3100.1350, L3200.1200, L503.6550, L3200.0500, L501.6710 #### [facility] [address] [facility] [place], [place], [id number] Bilirubin [Mass/Vol] 0.26 mg/dL Normal 0.00-1.30 [facility] Comment on above: Performed By: #### L 503.0106, L500.4050, L501.1400, L400.0001, L503.6030, L3000.0800, L100.9950, L3890.6006, L501.5101, L100.0100, L504.2610, L501.5200, L506.0200, L3410.9992, L101.9900, L3100.1350, L3200.1200, L503.6550, L3200.0500, L501.6710 #### [facility] [address] [place], [place], [id number] BUN/CRE 10.3 RATIO Normal 10-20 [facility] Comment on above: Performed By: #### L 503.0106, L500.4050, L501.1400, L400.0001, L503.6030, L3000.0800, L100.9950, L3890.6006, L501.5101, L100.0100, L504.2610, L501.5200, L506.0200, L3410.9992, L101.9900, L3100.1350, L3200.1200, L503.6550, L3200.0500, L501.6710 #### [facility] [address] [place], [place], [phone] (556) Calcium [Mass/Vol] 9.1 mg/dL Normal 7.6-11.0 [facility] Comment on above: Performed By: #### L 503.0106, L500.4050, L501.1400, L400.0001, L503.6030, L3000.0800, L100.9950, L3890.6006, L501.5101, L100.0100, L504.2610, L501.5200, L506.0200, L3410.9992, L101.9900, L3100.1350, L3200.1200, L503.6550, L3200.0500, L501.6710 #### [facility] [address] [place], [place], [phone] ([phone]) Chloride [Moles/Vol] 96 mmol/L Low 98-108 [facility] Comment on above: Performed By: #### L 503.0106, L500.4050, L501.1400, L400.0001, L503.6030, L3000.0800, L100.9950, L3890.6006, L501.5101, L100.0100, L504.2610, L501.5200, L506.0200, L3410.9992, L101.9900, L3100.1350, L3200.1200, L503.6550, L3200.0500, L501.6710 #### [facility] [address] [place], [place], [phone] ([phone]) CO2 [Moles/Vol] 24.0 mmol/L Normal 21.0-32.0 [facility] Comment on above: Performed By: #### L 503.0106, L500.4050, L501.1400, L400.0001, L503.6030, L3000.0800, L100.9950, L3890.6006, L501.5101, L100.0100, L504.2610, L501.5200, L506.0200, L3410.9992, L101.9900, L3100.1350, L3200.1200, L503.6550, L3200.0500, L501.6710 #### [facility] [address] [place], [place], [phone] Creatinine [Mass/Vol] 0.83 mg/dL Normal 0.70-1.20 [facility] Comment on above: Performed By: #### L 503.0106, L500.4050, L501.1400, L400.0001, L503.6030, L3000.0800, L100.9950, L3890.6006, L501.5101, L100.0100, L504.2610, L501.5200, L506.0200, L3410.9992, L101.9900, L3100.1350, L3200.1200, L503.6550, L3200.0500, L501.6710 #### [facility] [address] [place], [place], [phone] ECRCL 104.65 ml/min Normal 50-250 [facility] Comment on above: Performed By: #### L 503.0106, L500.4050, L501.1400, L400.0001, L503.6030, L3000.0800, L100.9950, L3890.6006, L501.5101, L100.0100, L504.2610, L501.5200, L506.0200, L3410.9992, L101.9900, L3100.1350, L3200.1200, L503.6550, L3200.0500, L501.6710 #### [facility] [address] [place], [place], [phone] (583) GAP 15 Normal 5-15 [facility] Comment on above: Performed By: #### L 503.0106, L500.4050, L501.1400, L400.0001, L503.6030, L3000.0800, L100.9950, L3890.6006, L501.5101, L100.0100, L504.2610, L501.5200, L506.0200, L3410.9992, L101.9900, L3100.1350, L3200.1200, L503.6550, L3200.0500, L501.6710 #### [facility] [address] [place], [address] GFR/1.73 sq M.predicted among non-blacks MDRD (S/P/Bld) [Vol rate/Area] 84 mL/min/{1.73_m2} Normal >60 [facility] Comment on above: Result Comment: mL/m in/1.73m2 CKD-EPI Creatinine Equation (2020) Performed By: #### L 503.0106, L500.4050, L501.1400, L400.0001, L503.6030, L3000.0800, L100.9950, L3890.6006, L501.5101, L100.0100, L504.2610, L501.5200, L506.0200, L3410.9992, L101.9900, L3100.1350, L3200.1200, L503.6550, L3200.0500, L501.6710 #### [facility] [address] [place] [place], [address] Globulin (S) [Mass/Vol] 2.7 g/dL Normal 2.2-4.2 [facility] Comment on above: Performed By: #### L 503.0106, L500.4050, L501.1400, L400.0001, L503.6030, L3000.0800, L100.9950, L3890.6006, L501.5101, L100.0100, L504.2610, L501.5200, L506.0200, L3410.9992, L101.9900, L3100.1350, L3200.1200, L503.6550, L3200.0500, L501.6710 #### [facility] [address] [place], [address] Glucose [Mass/Vol] 283 mg/dL High 70-99 [facility] Comment on above: Performed By: #### L 503.0106, L500.4050, L501.1400, L400.0001, L503.6030, L3000.0800, L100.9950, L3890.6006, L501.5101, L100.0100, L504.2610, L501.5200, L506.0200, L3410.9992, L101.9900, L3100.1350, L3200.1200, L503.6550, L3200.0500, L501.6710 #### [facility] [address] [place], [address] Potassium [Moles/Vol] 3.7 mmol/L Normal 3.3-5.1 [facility] Comment on above: Performed By: #### L 503.0106, L500.4050, L501.1400, L400.0001, L503.6030, L3000.0800, L100.9950, L3890.6006, L501.5101, L100.0100, L504.2610, L501.5200, L506.0200, L3410.9992, L101.9900, L3100.1350, L3200.1200, L503.6550, L3200.0500, L501.6710 #### [facility] [address] [place], [address] Sodium [Moles/Vol] 135 mmol/L Normal 133-145 [facility] Comment on above: Performed By: #### L 503.0106, L500.4050, L501.1400, L400.0001, L503.6030, L3000.0800, L100.9950, L3890.6006, L501.5101, L100.0100, L504.2610, L501.5200, L506.0200, L3410.9992, L101.9900, L3100.1350, L3200.1200, L503.6550, L3200.0500, L501.6710 #### [facility] [address] [place], [address] T PROT 6.9 g/dL Normal 5.9-8.4 [facility] Comment on above: Performed By: #### L 503.0106, L500.4050, L501.1400, L400.0001, L503.6030, L3000.0800, L100.9950, L3890.6006, L501.5101, L100.0100, L504.2610, L501.5200, L506.0200, L3410.9992, L101.9900, L3100.1350, L3200.1200, L503.6550, L3200.0500, L501.6710 #### [facility] [address] [place], [address] Urea nitrogen [Mass/Vol] 9 mg/dL Normal 4-19 [facility] Comment on above: Performed By: #### L 503.0106, L500.4050, L501.1400, L400.0001, L503.6030, L3000.0800, L100.9950, L3890.6006, L501.5101, L100.0100, L504.2610, L501.5200, L506.0200, L3410.9992, L101.9900, L3100.1350, L3200.1200, L503.6550, L3200.0500, L501.6710 #### [facility] [address] [place], [address] Eosinophil percentageOrdered By: Glen Chapman on 06-04-2025 Eosinophils/100 WBC (Bld) 4.7 % 0-5 [facility] Erythrocyte Sed Rateon 06-04 SED RATE 18 mm/hr Normal 0-30 [facility] Comment on above: Performed By: #### L 503.0106, L500.4050, L501.1400, L400.0001, L503.6030, L3000.0800, L100.9950, L3890.6006, L501.5101, L100.0100, L504.2610, L501.5200, L506.0200, L3410.9992, L101.9900, L3100.1350, L3200.1200, L503.6550, L3200.0500, L501.6710 #### [facility] [address] [place] [place], [address] Erythrocyte distribution wid th ratioOrdered By: Glen Chapman on 06-04-2025 Erythrocyte distribution width (RBC) [Ratio] 15.2 % High 11.6-14.6 [facility] Erythrocyte distribution wid th standard deviationOrdered By: Glen Chapman on 06-04-2025 Erythrocyte distribution width (RBC) [Ratio] 47.2 fl High 35.1-43.9 [facility] Erythrocyte sedimentation ra teOrdered By: Glen Chapman on 06-04-2025 ESR (Bld) [Velocity] 18 mm/h 0-30 [facility] Ferritinon 06-04-2025 Ferritin [Mass/Vol] 76 ng/mL Normal 22-378 [facility] Comment on above: Performed By: #### L 503.0106, L500.4050, L501.1400, L400.0001, L503.6030, L3000.0800, L100.9950, L3890.6006, L501.5101, L100.0100, L504.2610, L501.5200, L506.0200, L3410.9992, L101.9900, L3100.1350, L3200.1200, L503.6550, L3200.0500, L501.6710 #### [facility] [address] [place], [place], [phone] Glomerular filtration rate ( GFR) estimation/1.73 sq m using serum, plasma, or whole bOrdered By: Glen Chapman on 06-04-2025 GFR/1.73 sq M.predicted among non-blacks MDRD (S/P/Bld) [Vol rate/Area] 84 mL/min/{1.73_m2} >60 [facility] Comment on above: mL/min/1.73m2 CKD-EP I Creatinine Equation (2020) Hematocrit Auto (Bld) [Volum e fraction]Ordered By: Glen Chapman on 06-04-2025 Hematocrit (Bld) [Volume fraction] 35.0 % Low 37-47 [facility] Hemoglobin measurementOrdere d By: Glen Chapman on 06-04-2025 Hemoglobin (Bld) [Mass/Vol] 11.3 g/dL Low 12.0-15. 0 [facility] Immature granulocytes/100 WB C Auto (Bld)Ordered By: Glen Chapman on 06-04-2025 Immature granulocytes/100 WBC (Bld) 1.300 % High 0.0-0.9 [facility] Comment on above: IG% - Immature Granu locytes (promyelocytes, myelocytes and metamyelocytes) > 1% indicates that a LEFT SHIFT is Present. Iron measurement (mass/mass) Ordered By: Glen Chapman on 06-04-2025 Iron (Unsp spec) [Mass/Mass] 57 ug/dL 50-170 [facility] Iron+Iron Binding Capacityon 06-04-2025 Iron [Mass/Vol] 57 ug/dL Normal 50-170 [facility] Comment on above: Performed By: #### L 503.0106, L500.4050, L501.1400, L400.0001, L503.6030, L3000.0800, L100.9950, L3890.6006, L501.5101, L100.0100, L504.2610, L501.5200, L506.0200, L3410.9992, L101.9900, L3100.1350, L3200.1200, L503.6550, L3200.0500, L501.6710 #### [facility] [address] [place], [place], [phone] IRON SATURATION 14.0 Normal 13-59 [facility] Comment on above: Performed By: #### L 503.0106, L500.4050, L501.1400, L400.0001, L503.6030, L3000.0800, L100.9950, L3890.6006, L501.5101, L100.0100, L504.2610, L501.5200, L506.0200, L3410.9992, L101.9900, L3100.1350, L3200.1200, L503.6550, L3200.0500, L501.6710 #### [facility] [address] [place], [place], [address] (783) TIBC 395 ug/dL Normal 250-450 [facility] Comment on above: Performed By: #### L 503.0106, L500.4050, L501.1400, L400.0001, L503.6030, L3000.0800, L100.9950, L3890.6006, L501.5101, L100.0100, L504.2610, L501.5200, L506.0200, L3410.9992, L101.9900, L3100.1350, L3200.1200, L503.6550, L3200.0500, L501.6710 #### [facility] [address] [place], [place], [id number] UIBC 338 ug/dL Normal 228-428 [facility] Comment on above: Performed By: #### L 503.0106, L500.4050, L501.1400, L400.0001, L503.6030, L3000.0800, L100.9950, L3890.6006, L501.5101, L100.0100, L504.2610, L501.5200, L506.0200, L3410.9992, L101.9900, L3100.1350, L3200.1200, L503.6550, L3200.0500, L501.6710 #### [facility] [address] [place], [place], [id number] LDHon 06-04-2025 LDH 167 U/L Normal 84-246 [facility] Comment on above: Order Comment: 1 Performed By: #### L 503.0106, L500.4050, L501.1400, L400.0001, L503.6030, L3000.0800, L100.9950, L3890.6006, L501.5101, L100.0100, L504.2610, L501.5200, L506.0200, L3410.9992, L101.9900, L3100.1350, L3200.1200, L503.6550, L3200.0500, L501.6710 #### [facility] [address] [place], [address] Laboratory - Chemistry and C hemistry - challengeOrdered By: Glen Chapman on 06-04-2025 AST [Catalytic activity/Vol] 17 U/L <32 [facility] Lactate dehydrogenase (LDH) measurementOrdered By: Glen Chapman on 06-04-2025 LDH [Catalytic activity/Vol] 167 U/L 84-246 [facility] MCV (mean corpuscular volume ) determinationOrdered By: Glen Chapman on 06-04-2025 MCV (RBC) [Entitic vol] 86.6 fL 81-99 [facility] Magnesiumon 06-04-2025 Magnesium [Mass/Vol] 1.5 mg/dL Normal 1.5-2.2 [facility] Comment on above: Performed By: #### L 503.0106, L500.4050, L501.1400, L400.0001, L503.6030, L3000.0800, L100.9950, L3890.6006, L501.5101, L100.0100, L504.2610, L501.5200, L506.0200, L3410.9992, L101.9900, L3100.1350, L3200.1200, L503.6550, L3200.0500, L501.6710 #### [facility] [address] [place], [address] Magnesium measurement (mass/ volume)Ordered By: Glen Chapman on 06-04-2025 Magnesium (Unsp spec) [Mass/Vol] 1.5 mg/dL 1.5-2.2 [facility] Mean corpuscular hemoglobin (MCH) determinationOrdered By: Glen Chapman on 06-04-2025 MCH (RBC) [Entitic mass] 28.0 pg 27.0-32.0 [facility] Mean corpuscular hemoglobin concentration (MCHC) determinationOrdered By: Glen Chapman on 06-04-2025 MCHC (RBC) [Mass/Vol] 32.3 g/dL 32-36 [facility] Mean platelet volume determi nationOrdered By: Glen Chapman on 06-04-2025 Platelet mean volume (Bld) [Entitic vol] 9.6 fL 6.2-12.0 [facility] Monocyte percentageOrdered B y: Glen Chapman on 06-04-2025 Monocytes/100 WBC (Bld) 5.5 % 0-10 [facility] Neutrophil percentageOrdered By: Glen Chapman on 06-04-2025 Neutrophils/100 WBC (Bld) 70.9 % High 47-70 [facility] No Panel InformationOrdered By: Glen Chapman on 06-04-2025 Unsaturated Iron Binding Capacity 338 ug/dL 228-428 [facility] Nucleated red blood cell per centageOrdered By: Glen Chapman on 06-04-2025 Nucleated RBC/100 WBC (Bld) [Ratio] 0 % 0-5 [facility] Oncology Visit Reporton 05-16 Oncology Visit Report [facility] [address] [place] [address] OFFICE VISIT Date of Service: 06/04/25 1109 MR#: [id number] Acct: [id number] Name: HEIDI ANDREWS Rep #: [id number] : 1970 From: Glen Chapman MD Age/Sex: 55/F Location: [facility] Status: Signed HPI Subjective Date [...] deficiency. Comes for follow up. Feels better. FORMERLY [facility], 1928–1983 Medical History Sleep apnea Wears glasses Thyroid [...] (more content not included)... Normal [facility] Phosphoruson 06-04-2025 Phosphate [Mass/Vol] 2.4 mg/dL Low 2.7-4.5 [facility] Comment on above: Performed By: #### L 503.0106, L500.4050, L501.1400, L400.0001, L503.6030, L3000.0800, L100.9950, L3890.6006, L501.5101, L100.0100, L504.2610, L501.5200, L506.0200, L3410.9992, L101.9900, L3100.1350, L3200.1200, L503.6550, L3200.0500, L501.6710 #### [facility] [place], [address] Platelet countOrdered By: Jaimee Chapman on 06-04-2025 Platelets (Bld) [#/Vol] 241 10*3/uL 150-450 [facility] Potassium measurement (mass/ volume)Ordered By: Glen Chapman on 06-04-2025 Potassium (Unsp spec) [Mass/Vol] 3.7 mmol/L 3.3-5.1 [facility] RBC Auto (Bld) [#/Vol]Ordere d By: Glen Chapman on 06-04-2025 RBC (Bld) [#/Vol] 4.04 10*6/uL Low 4.2-5.4 [facility] Serum creatinine measurement (mass/volume)Ordered By: Glen Chapman on 06-04-2025 Creatinine [Mass/Vol] 0.83 mg/dL 0.70-1.20 [facility] Serum globulin measurementOr dered By: Glen Chapman on 06-04-2025 Globulin (S) [Mass/Vol] 2.7 g/dL 2.2-4.2 [facility] Serum glucose measurement (m ass/volume)Ordered By: Glen Chapman on 06-04-2025 Glucose [Mass/Vol] 283 mg/dL High 70-99 [facility] Serum or plasma C reactive p rotein measurement (mass/volume)Ordered By: Glen Chapman on 06-04-2025 CRP [Mass/Vol] 23.30 mg/L High 0.0-3.0 [facility] Serum or plasma alanine cueto otransferase (ALT) measurementOrdered By: Glen Chapman on 06-04-2025 ALT [Catalytic activity/Vol] 12 U/L <35 [facility] Serum or plasma albumin sandy urement (mass/volume)Ordered By: Glen Chapman on 06-04-2025 Albumin [Mass/Vol] 4.2 g/dL 3.5-5.0 [facility] Serum or plasma albumin/glob ulin mass ratioOrdered By: Glen Chapman on 06-04-2025 Albumin/Globulin [Mass ratio] 1.6 {ratio} 0.9-2.4 [facility] Serum or plasma alkaline rebecca sphatase measurementOrdered By: Glen Chapman on 06-04-2025 ALP [Catalytic activity/Vol] 83 U/L 35-104 [facility] Serum or plasma calcium sandy urement (mass/volume)Ordered By: Glen Chapman on 06-04-2025 Calcium [Mass/Vol] 9.1 mg/dL 7.6-11.0 [facility] Serum or plasma ferritin darrel surement (mass/volume)Ordered By: Glen Chapman on 06-04-2025 Ferritin [Mass/Vol] 76 ng/mL 22-378 [facility] Serum or plasma iron saturat ion measurement (mass fraction)Ordered By: Glen Chapman on 06-04-2025 Iron saturation [Mass fraction] 14.0 % 13-59 [facility] Serum or plasma urea nitroge n measurement (mass/volume)Ordered By: Glen Chapman on 06-04-2025 Urea nitrogen [Mass/Vol] 9 mg/dL 4-19 [facility] Sodium levelOrdered By: Cy Chapman on 06-04-2025 Sodium [Moles/Vol] 135 mmol/L 133-145 [facility] Total proteinOrdered By: Vasquez Chapman on 06-04-2025 Protein [Mass/Vol] 6.9 g/dL 5.9-8.4 [facility] Vitamin B12on 06-04-2025 Cobalamin (Vitamin B12) [Mass/Vol] 416 pg/mL Normal 180-914 [facility] Comment on above: Performed By: #### L 503.0106, L500.4050, L501.1400, L400.0001, L503.6030, L3000.0800, L100.9950, L3890.6006, L501.5101, L100.0100, L504.2610, L501.5200, L506.0200, L3410.9992, L101.9900, L3100.1350, L3200.1200, L503.6550, L3200.0500, L501.6710 #### [facility] [address] [place], [address] Vitamin B12 ser/plasOrdered By: Glen Chapman on 06-04-2025 Cobalamin (Vitamin B12) [Mass/Vol] 416 pg/mL 180-914 [facility] White blood cell (WBC) count Ordered By: Glen Chapman on 06-04-2025 WBC (Bld) [#/Vol] 6.2 10*3/uL 4.4-11.0 [facility] Absolute lymphocyte countOrd ered By: Glen Chapman on 05-07-2025 Lymphocytes Auto (Unsp spec) [#/Vol] 1.11 10*3/uL 0.83-4.51 [facility] Absolute neutrophil countOrd ered By: Glen Chapman on 05-07-2025 Neutrophils (Bld) [#/Vol] 2.9 10*3/uL 2.0-7.7 [facility] Automated lymphocyte count a s percentage of total leukocytesOrdered By: Glen Chapman on 05-07-2025 Lymphocytes/100 WBC Auto (Unsp spec) 23.9 % 19-41 [facility] Basophil percentageOrdered B y: Glen Chapman on 05-07-2025 Basophils/100 WBC (Bld) 0.4 % 0-1 [facility] CBC W/Diff, Automatedon 04-16 Absolute Lymph 1.11 X10 3/uL Normal 0.83-4.51 [facility] Comment on above: Performed By: #### L 503.0106, L500.4050, L501.1400, L400.0001, L503.6030, L3000.0800, L100.9950, L3890.6006, L501.5101, L100.0100, L504.2610, L501.5200, L506.0200, L3410.9992, L101.9900, L3100.1350, L3200.1200, L503.6550, L3200.0500, L501.6710 #### [facility] [address] [place], [address] Absolute Neut 2.9 X10 3/uL Normal 2.0-7.7 [facility] Comment on above: Performed By: #### L 503.0106, L500.4050, L501.1400, L400.0001, L503.6030, L3000.0800, L100.9950, L3890.6006, L501.5101, L100.0100, L504.2610, L501.5200, L506.0200, L3410.9992, L101.9900, L3100.1350, L3200.1200, L503.6550, L3200.0500, L501.6710 #### [facility] [address] [place], [place], [phone] Basophils/100 WBC (Bld) 0.4 % Normal 0-1 [facility] Comment on above: Performed By: #### L 503.0106, L500.4050, L501.1400, L400.0001, L503.6030, L3000.0800, L100.9950, L3890.6006, L501.5101, L100.0100, L504.2610, L501.5200, L506.0200, L3410.9992, L101.9900, L3100.1350, L3200.1200, L503.6550, L3200.0500, L501.6710 #### [facility] [address] [place], [place], [phone] ([phone]) Eosinophils/100 WBC (Bld) 6.3 % High 0-5 [facility] Comment on above: Performed By: #### L 503.0106, L500.4050, L501.1400, L400.0001, L503.6030, L3000.0800, L100.9950, L3890.6006, L501.5101, L100.0100, L504.2610, L501.5200, L506.0200, L3410.9992, L101.9900, L3100.1350, L3200.1200, L503.6550, L3200.0500, L501.6710 #### [facility] [address] [place], [address] Erythrocyte distribution width (RBC) [Ratio] 19.2 % High 11.6-14.6 [facility] Comment on above: Performed By: #### L 503.0106, L500.4050, L501.1400, L400.0001, L503.6030, L3000.0800, L100.9950, L3890.6006, L501.5101, L100.0100, L504.2610, L501.5200, L506.0200, L3410.9992, L101.9900, L3100.1350, L3200.1200, L503.6550, L3200.0500, L501.6710 #### [facility] [address] [place], [place], [id number] Hematocrit (Bld) [Volume fraction] 33.0 % Low 37-47 [facility] Comment on above: Performed By: #### L 503.0106, L500.4050, L501.1400, L400.0001, L503.6030, L3000.0800, L100.9950, L3890.6006, L501.5101, L100.0100, L504.2610, L501.5200, L506.0200, L3410.9992, L101.9900, L3100.1350, L3200.1200, L503.6550, L3200.0500, L501.6710 #### [facility] [address] [place], [place], [phone] (301) Hemoglobin (Bld) [Mass/Vol] 10.3 g/dL Low 12.0-15. 0 [facility] Comment on above: Performed By: #### L 503.0106, L500.4050, L501.1400, L400.0001, L503.6030, L3000.0800, L100.9950, L3890.6006, L501.5101, L100.0100, L504.2610, L501.5200, L506.0200, L3410.9992, L101.9900, L3100.1350, L3200.1200, L503.6550, L3200.0500, L501.6710 #### [facility] [address] [place], [place], [phone] (166) IG% 1.100 High 0.0-0.9 [facility] Comment on above: Result Comment: IG% - Immature Granulocytes (promyelocytes, myelocytes and metamyelocytes) > 1% indicates that a LEFT SHIFT is Present. Performed By: #### L 503.0106, L500.4050, L501.1400, L400.0001, L503.6030, L3000.0800, L100.9950, L3890.6006, L501.5101, L100.0100, L504.2610, L501.5200, L506.0200, L3410.9992, L101.9900, L3100.1350, L3200.1200, L503.6550, L3200.0500, L501.6710 #### [facility] [address] [place], [place], [id number] (317) Lymphocytes/100 WBC (Bld) 23.9 % Normal 19-41 [facility] Comment on above: Performed By: #### L 503.0106, L500.4050, L501.1400, L400.0001, L503.6030, L3000.0800, L100.9950, L3890.6006, L501.5101, L100.0100, L504.2610, L501.5200, L506.0200, L3410.9992, L101.9900, L3100.1350, L3200.1200, L503.6550, L3200.0500, L501.6710 #### [facility] [address] [place], [address] MCH (RBC) [Entitic mass] 28.0 pg Normal 27.0-32.0 [facility] Comment on above: Performed By: #### L 503.0106, L500.4050, L501.1400, L400.0001, L503.6030, L3000.0800, L100.9950, L3890.6006, L501.5101, L100.0100, L504.2610, L501.5200, L506.0200, L3410.9992, L101.9900, L3100.1350, L3200.1200, L503.6550, L3200.0500, L501.6710 #### [facility] [address] [place] [place], [address] MCHC (RBC) [Mass/Vol] 31.2 g/dL Low 32-36 [facility] [place] Comment on above: Performed By: #### L 503.0106, L500.4050, L501.1400, L400.0001, L503.6030, L3000.0800, L100.9950, L3890.6006, L501.5101, L100.0100, L504.2610, L501.5200, L506.0200, L3410.9992, L101.9900, L3100.1350, L3200.1200, L503.6550, L3200.0500, L501.6710 #### [facility] [address] [place], [address] MCV (RBC) [Entitic vol] 89.7 fL Normal 81-99 [facility] Comment on above: Performed By: #### L 503.0106, L500.4050, L501.1400, L400.0001, L503.6030, L3000.0800, L100.9950, L3890.6006, L501.5101, L100.0100, L504.2610, L501.5200, L506.0200, L3410.9992, L101.9900, L3100.1350, L3200.1200, L503.6550, L3200.0500, L501.6710 #### [facility] [address] [place] [place], [address] Monocytes/100 WBC (Bld) 6.9 % Normal 0-10 [facility] Comment on above: Performed By: #### L 503.0106, L500.4050, L501.1400, L400.0001, L503.6030, L3000.0800, L100.9950, L3890.6006, L501.5101, L100.0100, L504.2610, L501.5200, L506.0200, L3410.9992, L101.9900, L3100.1350, L3200.1200, L503.6550, L3200.0500, L501.6710 #### [facility] [address] [place], [address] Neutrophils/100 WBC (Bld) 61.4 % Normal 47-70 [facility] Comment on above: Performed By: #### L 503.0106, L500.4050, L501.1400, L400.0001, L503.6030, L3000.0800, L100.9950, L3890.6006, L501.5101, L100.0100, L504.2610, L501.5200, L506.0200, L3410.9992, L101.9900, L3100.1350, L3200.1200, L503.6550, L3200.0500, L501.6710 #### [facility] [address] [place], [address] (054) Nucleated RBC (Bld) [#/Vol] 0 10*3/uL Normal 0-5 [facility] Comment on above: Performed By: #### L 503.0106, L500.4050, L501.1400, L400.0001, L503.6030, L3000.0800, L100.9950, L3890.6006, L501.5101, L100.0100, L504.2610, L501.5200, L506.0200, L3410.9992, L101.9900, L3100.1350, L3200.1200, L503.6550, L3200.0500, L501.6710 #### [facility] [address] [place], [address] (961) Platelet mean volume (Bld) [Entitic vol] 9.3 fL Normal 6.2-12.0 [facility] Comment on above: Performed By: #### L 503.0106, L500.4050, L501.1400, L400.0001, L503.6030, L3000.0800, L100.9950, L3890.6006, L501.5101, L100.0100, L504.2610, L501.5200, L506.0200, L3410.9992, L101.9900, L3100.1350, L3200.1200, L503.6550, L3200.0500, L501.6710 #### [facility] [address] [place], [address] (445) Platelets (Bld) [#/Vol] 232 10*3/uL Normal 150-450 [facility] Comment on above: Performed By: #### L 503.0106, L500.4050, L501.1400, L400.0001, L503.6030, L3000.0800, L100.9950, L3890.6006, L501.5101, L100.0100, L504.2610, L501.5200, L506.0200, L3410.9992, L101.9900, L3100.1350, L3200.1200, L503.6550, L3200.0500, L501.6710 #### [facility] [address] [place], [place], [id number] RBC (Bld) [#/Vol] 3.68 10*6/uL Low 4.2-5.4 [facility] Comment on above: Performed By: #### L 503.0106, L500.4050, L501.1400, L400.0001, L503.6030, L3000.0800, L100.9950, L3890.6006, L501.5101, L100.0100, L504.2610, L501.5200, L506.0200, L3410.9992, L101.9900, L3100.1350, L3200.1200, L503.6550, L3200.0500, L501.6710 #### [facility] [address] [place], [address] RDW SD 63.7 fl High 35.1-43.9 [facility] Comment on above: Performed By: #### L 503.0106, L500.4050, L501.1400, L400.0001, L503.6030, L3000.0800, L100.9950, L3890.6006, L501.5101, L100.0100, L504.2610, L501.5200, L506.0200, L3410.9992, L101.9900, L3100.1350, L3200.1200, L503.6550, L3200.0500, L501.6710 #### [facility] [address] [place], [address] WBC (Bld) [#/Vol] 4.6 10*3/uL Normal 4.4-11.0 [facility] Comment on above: Performed By: #### L 503.0106, L500.4050, L501.1400, L400.0001, L503.6030, L3000.0800, L100.9950, L3890.6006, L501.5101, L100.0100, L504.2610, L501.5200, L506.0200, L3410.9992, L101.9900, L3100.1350, L3200.1200, L503.6550, L3200.0500, L501.6710 #### [facility] [address] [place], [address] Eosinophil percentageOrdered By: Glen Chapman on 05-07-2025 Eosinophils/100 WBC (Bld) 6.3 % High 0-5 [facility] Erythrocyte distribution wid th ratioOrdered By: Glen Chapman on 05-07-2025 Erythrocyte distribution width (RBC) [Ratio] 19.2 % High 11.6-14.6 [facility] Erythrocyte distribution wid th standard deviationOrdered By: Glen Chapman on 05-07-2025 Erythrocyte distribution width (RBC) [Ratio] 63.7 fl High 35.1-43.9 [facility] Ferritinon 05-07-2025 Ferritin [Mass/Vol] 90 ng/mL Normal 22-378 [facility] Comment on above: Performed By: #### L 503.0106, L500.4050, L501.1400, L400.0001, L503.6030, L3000.0800, L100.9950, L3890.6006, L501.5101, L100.0100, L504.2610, L501.5200, L506.0200, L3410.9992, L101.9900, L3100.1350, L3200.1200, L503.6550, L3200.0500, L501.6710 #### [facility] [address] [place], [address] Hematocrit Auto (Bld) [Volum e fraction]Ordered By: Glen Ari on 05-07-2025 Hematocrit (Bld) [Volume fraction] 33.0 % Low 37-47 [facility] Hemoglobin measurementOrdere d By: Glen Chapman on 05-07-2025 Hemoglobin (Bld) [Mass/Vol] 10.3 g/dL Low 12.0-15. 0 [facility] Immature granulocytes/100 WB C Auto (Bld)Ordered By: Glen Chapman on 05-07-2025 Immature granulocytes/100 WBC (Bld) 1.100 % High 0.0-0.9 [facility] Comment on above: IG% - Immature Granu locytes (promyelocytes, myelocytes and metamyelocytes) > 1% indicates that a LEFT SHIFT is Present. Iron measurement (mass/mass) Ordered By: Glen Chapman on 05-07-2025 Iron (Unsp spec) [Mass/Mass] 57 ug/dL 50-170 [facility] Iron+Iron Binding Capacityon 05-07-2025 Iron [Mass/Vol] 57 ug/dL Normal 50-170 [facility] Comment on above: Performed By: #### L 503.0106, L500.4050, L501.1400, L400.0001, L503.6030, L3000.0800, L100.9950, L3890.6006, L501.5101, L100.0100, L504.2610, L501.5200, L506.0200, L3410.9992, L101.9900, L3100.1350, L3200.1200, L503.6550, L3200.0500, L501.6710 #### [facility] [address] [place], [place], [address] IRON SATURATION 14.0 Normal 13-59 [facility] Comment on above: Performed By: #### L 503.0106, L500.4050, L501.1400, L400.0001, L503.6030, L3000.0800, L100.9950, L3890.6006, L501.5101, L100.0100, L504.2610, L501.5200, L506.0200, L3410.9992, L101.9900, L3100.1350, L3200.1200, L503.6550, L3200.0500, L501.6710 #### [facility] [address] [place], [place], [id number] (852) TIBC 392 ug/dL Normal 250-450 [facility] Comment on above: Performed By: #### L 503.0106, L500.4050, L501.1400, L400.0001, L503.6030, L3000.0800, L100.9950, L3890.6006, L501.5101, L100.0100, L504.2610, L501.5200, L506.0200, L3410.9992, L101.9900, L3100.1350, L3200.1200, L503.6550, L3200.0500, L501.6710 #### [facility] [address] [place], [address] UIBC 335 ug/dL Normal 228-428 [facility] Comment on above: Performed By: #### L 503.0106, L500.4050, L501.1400, L400.0001, L503.6030, L3000.0800, L100.9950, L3890.6006, L501.5101, L100.0100, L504.2610, L501.5200, L506.0200, L3410.9992, L101.9900, L3100.1350, L3200.1200, L503.6550, L3200.0500, L501.6710 #### [facility] [address] [facility] [place], [place], [id number] LDHon 05-07-2025 LDH 132 U/L Normal 84-246 [facility] Comment on above: Order Comment: 1 Performed By: #### L 503.0106, L500.4050, L501.1400, L400.0001, L503.6030, L3000.0800, L100.9950, L3890.6006, L501.5101, L100.0100, L504.2610, L501.5200, L506.0200, L3410.9992, L101.9900, L3100.1350, L3200.1200, L503.6550, L3200.0500, L501.6710 #### [facility] [address] [place], [place], [id number] Lactate dehydrogenase (LDH) measurementOrdered By: Glen Chapman on 05-07-2025 LDH [Catalytic activity/Vol] 132 U/L 84-246 [facility] MCV (mean corpuscular volume ) determinationOrdered By: Glen Chapman on 05-07-2025 MCV (RBC) [Entitic vol] 89.7 fL 81-99 [facility] Magnesiumon 05-07-2025 Magnesium [Mass/Vol] 1.3 mg/dL Low 1.5-2.2 [facility] Comment on above: Performed By: #### L 503.0106, L500.4050, L501.1400, L400.0001, L503.6030, L3000.0800, L100.9950, L3890.6006, L501.5101, L100.0100, L504.2610, L501.5200, L506.0200, L3410.9992, L101.9900, L3100.1350, L3200.1200, L503.6550, L3200.0500, L501.6710 #### [facility] [address] [place], [address] Magnesium measurement (mass/ volume)Ordered By: Glen Chapman on 05-07-2025 Magnesium (Unsp spec) [Mass/Vol] 1.3 mg/dL Low 1.5-2.2 [facility] Mean corpuscular hemoglobin (MCH) determinationOrdered By: Glen Chapman on 05-07-2025 MCH (RBC) [Entitic mass] 28.0 pg 27.0-32.0 [facility] Mean corpuscular hemoglobin concentration (MCHC) determinationOrdered By: Glen Chapman on 05-07-2025 MCHC (RBC) [Mass/Vol] 31.2 g/dL Low 32-36 [facility] Mean platelet volume determi nationOrdered By: Glen Chapman on 05-07-2025 Platelet mean volume (Bld) [Entitic vol] 9.3 fL 6.2-12.0 [facility] Monocyte percentageOrdered B y: Glen Chapman on 05-07-2025 Monocytes/100 WBC (Bld) 6.9 % 0-10 [facility] Neutrophil percentageOrdered By: Glen Chapman on 05-07-2025 Neutrophils/100 WBC (Bld) 61.4 % 47-70 [facility] No Panel InformationOrdered By: Glen Chapman on 05-07-2025 Unsaturated Iron Binding Capacity 335 ug/dL 228-428 [facility] Nucleated red blood cell per centageOrdered By: Glen Chapman on 05-07-2025 Nucleated RBC/100 WBC (Bld) [Ratio] 0 % 0-5 [facility] Oncology Visit Reporton 04-16 Oncology Visit Report [facility] [address] [place] [address] OFFICE VISIT Date of Service: 05/07/25825 MR#: [id number] Acct: [id number] Name: HEIDI ANDREWS Rep #: [id number] : 1970 From: Glen Chapman MD Age/Sex: 55/F Location: [facility] Status: Signed HPI Subjective Date [...] 03/29/2025. Comes for follow up. Feels better. FORMERLY [facility], [facility] Medical History Sleep apnea Wears glasses Thyroid disease Diabetes Anemia Former smoker Diabetes Anxiety Psoriasis Hypothyroid Vitamin D deficiency Hypertriglyceridemia Bipolar disorder, unspecified HTN (hypertension) Surgical History Hx of section Hx of bilateral breast reduction surgery Family History Father Hypertension Diabetes Sister Anxiety MCTD (mixed connective tissue disease) Mother Psoriatic arthritis Social History household members: spouse current occupational status: employed current occupation: [employer] Smoking Status: Former smoker alcohol intake: never substance use type: does not use Intake Vital Signs 03/29/25 08:03 05/07/25 08:27 Height 5 ft 6 in 5 ft 6 in Weight: 122.47 kg BMI 43.5 BP 132/82 H Blood Pressure Location Lt brachial Position Sitting Respiration 18 Pulse 75 Pulse Source Monitor Temp 98.0 F Temperature Source Temporal Artery Pulse Oximetry (%) 96 Intake Traveling Accountant Required: No Accompanied by: Self Is patient [...] (more content not included)... Normal [facility] Phosphoruson 05-07-2025 Phosphate [Mass/Vol] 2.6 mg/dL Low 2.7-4.5 [facility] Comment on above: Performed By: #### L 503.0106, L500.4050, L501.1400, L400.0001, L503.6030, L3000.0800, L100.9950, L3890.6006, L501.5101, L100.0100, L504.2610, L501.5200, L506.0200, L3410.9992, L101.9900, L3100.1350, L3200.1200, L503.6550, L3200.0500, L501.6710 #### [facility] [address] [place], [place], [address] Platelet countOrdered By: Jaimee Chapman on 05-07-2025 Platelets (Bld) [#/Vol] 232 10*3/uL 150-450 [facility] RBC Auto (Bld) [#/Vol]Ordere d By: Glen Chapman on 05-07-2025 RBC (Bld) [#/Vol] 3.68 10*6/uL Low 4.2-5.4 [facility] Serum or plasma ferritin darrel surement (mass/volume)Ordered By: Glen Chapman on 05-07-2025 Ferritin [Mass/Vol] 90 ng/mL 22-378 [facility] Serum or plasma iron saturat ion measurement (mass fraction)Ordered By: Glen Chapman on 05-07-2025 Iron saturation [Mass fraction] 14.0 % 13-59 [facility] Vitamin B12on 05-07-2025 Cobalamin (Vitamin B12) [Mass/Vol] 152 pg/mL Low 180-914 [facility] Comment on above: Performed By: #### L 503.0106, L500.4050, L501.1400, L400.0001, L503.6030, L3000.0800, L100.9950, L3890.6006, L501.5101, L100.0100, L504.2610, L501.5200, L506.0200, L3410.9992, L101.9900, L3100.1350, L3200.1200, L503.6550, L3200.0500, L501.6710 #### [facility] [address] [place], [address] Vitamin B12 ser/plasOrdered By: Glen Chapman on 05-07-2025 Cobalamin (Vitamin B12) [Mass/Vol] 152 pg/mL Low 180-914 [facility] White blood cell (WBC) count Ordered By: Glen Chapman on 05-07-2025 WBC (Bld) [#/Vol] 4.6 10*3/uL 4.4-11.0 [facility] Cardiovascular stress test r eportOrdered By: John Damian on 04-17-2025 Study report [facility] [address] [place] [address] MR#: [id number] Acct: [id number] Name: HEIDI ANDREWS Rep #: [id number] : 1970 55 From: John Damian MD [...] of 66%. This note was generated with [employer] software. It may contain incorrectwords, spelling, and punctuation that were not noted in checking the note beforesigning. 04/17/25928 Date _ John Damian MD CC: Dr. Red Perez MD ~ Date Dictated: 04/17/25925 Date Transcribed: 04/17/25925 Master Control Supervisor: MARY Smith [facility] Work Phone: Stress Reporton 04-17-2025 Stress Report [facility] [address] [place] [address] MR#: [id number] Acct: [id number] Name: HEIDI ANDREWS Rep #: [id number] : 1970 55 From: John Damian MD [...] of 66%. This note was generated with [employer] software. It may contain incorrect words, spelling, and punctuation that were not noted in checking the note before signing. 04/17/25928 Date John Damian MD CC: Dr. Red Perez MD Date Dictated: 04/17/25925 Date Transcribed: 04/17/25925 Master Control Supervisor: AR Signed Normal [facility] Absolute lymphocyte countOrd ered By: Red Perez on 03-29-2025 Lymphocytes Auto (Unsp spec) [#/Vol] 0.95 10*3/uL 0.83-4.51 [facility] Absolute neutrophil countOrd ered By: Red Perez on 03-29-2025 Neutrophils (Bld) [#/Vol] 4.6 10*3/uL 2.0-7.7 [facility] Automated lymphocyte count a s percentage of total leukocytesOrdered By: Red Perez on 03-29-2025 Lymphocytes/100 WBC Auto (Unsp spec) 15.0 % Low 19-41 [facility] Basophil percentageOrdered B y: Red Perez on 03-29-2025 Basophils/100 WBC (Bld) 0.3 % 0-1 [facility] Blood polychromasia detectio n by light microscopyOrdered By: Red Perez on 03-29-2025 Polychromasia LM Ql (Bld) 1+ [facility] CBC W/Diff, Automatedon 03-15 Anisocytosis Ql (Bld) 2+ Normal [facility] Comment on above: Performed By: #### L 503.0106, L500.4050, L501.1400, L400.0001, L503.6030, L3000.0800, L100.9950, L3890.6006, L501.5101, L100.0100, L504.2610, L501.5200, L506.0200, L3410.9992, L101.9900, L3100.1350, L3200.1200, L503.6550, L3200.0500, L501.6710 #### [facility] [address] [place] [address]. [place], [place], [id number] POLYCHROMASIA 1+ Normal [facility] Comment on above: Performed By: #### L 503.0106, L500.4050, L501.1400, L400.0001, L503.6030, L3000.0800, L100.9950, L3890.6006, L501.5101, L100.0100, L504.2610, L501.5200, L506.0200, L3410.9992, L101.9900, L3100.1350, L3200.1200, L503.6550, L3200.0500, L501.6710 #### [facility] [place], [address] Eosinophil percentageOrdered By: Red Perez on 03-29-2025 Eosinophils/100 WBC (Bld) 3.9 % 0-5 [facility] Erythrocyte distribution wid th ratioOrdered By: Red Perez on 03-29-2025 Erythrocyte distribution width (RBC) [Ratio] 27.1 % High 11.6-14.6 [facility] Erythrocyte distribution wid th standard deviationOrdered By: Red Perez on 03-29-2025 Erythrocyte distribution width (RBC) [Ratio] 81.7 fl High 35.1-43.9 [facility] Hematocrit Auto (Bld) [Volum e fraction]Ordered By: Red Perez on 03-29-2025 Hematocrit (Bld) [Volume fraction] 31.9 % Low 37-47 [facility] Hemoglobin measurementOrdere d By: Red Perez on 03-29-2025 Hemoglobin (Bld) [Mass/Vol] 9.2 g/dL Low 12.0-15. 0 [facility] Immature granulocytes/100 WB C Auto (Bld)Ordered By: Red Perez on 03-29-2025 Immature granulocytes/100 WBC (Bld) 1.100 % High 0.0-0.9 [facility] Comment on above: IG% - [...] 81-99 [facility] Mean corpuscular hemoglobin (MCH) determinationOrdered By: Red Perez on 03-29-2025 MCH (RBC) [Entitic mass] 24.3 pg Low 27.0-32.0 [facility] Mean corpuscular hemoglobin concentration (MCHC) determinationOrdered By: Red Perez on 03-29-2025 MCHC (RBC) [Mass/Vol] 28.8 g/dL Low 32-36 [facility] Mean platelet volume determi nationOrdered By: Red Perez on 03-29-2025 Platelet mean volume (Bld) [Entitic vol] 9.6 fL 6.2-12.0 [facility] Monocyte percentageOrdered B y: Red Perez on 03-29-2025 Monocytes/100 WBC (Bld) 7.1 % 0-10 [facility] Neutrophil percentageOrdered By: Red Perez on 03-29-2025 Neutrophils/100 WBC (Bld) 72.6 % High 47-70 [facility] Nucleated red blood cell per centageOrdered By: Red Perez on 03-29-2025 Nucleated RBC/100 WBC (Bld) [Ratio] 0 % 0-5 [facility] Platelet countOrdered By: Edy Perez on 03-29-2025 Platelets (Bld) [#/Vol] 263 10*3/uL 150-450 [facility] RBC Auto (Bld) [#/Vol]Ordere d By: Red Perez on 03-29-2025 RBC (Bld) [#/Vol] 3.79 10*6/uL Low 4.2-5.4 [facility] White blood cell (WBC) count Ordered By: Red Perez on 03-29-2025 WBC (Bld) [#/Vol] 6.3 10*3/uL 4.4-11.0 [facility] Celiac AB,Comprehensiveon ANTIGLIADIN IGA 2 units Normal 0-19 [facility] Comment on above: Result Comment: Nega tive 0 - 19 Weak Positive 20 - 30 Moderate to Strong Positive >30 Performed By: #### L 503.0106, L500.4050, L501.1400, L400.0001, L503.6030, L3000.0800, L100.9950, L3890.6006, L501.5101, L100.0100, L504.2610, L501.5200, L506.0200, L3410.9992, L101.9900, L3100.1350, L3200.1200, L503.6550, L3200.0500, L501.6710 #### [facility] [address] [place], [address] ANTIGLIADIN IGG 2 units Normal 0-19 [facility] Comment on above: Result Comment: Nega tive 0 - 19 Weak Positive 20 - 30 Moderate to Strong Positive >30 Performed By: #### L 503.0106, L500.4050, L501.1400, L400.0001, L503.6030, L3000.0800, L100.9950, L3890.6006, L501.5101, L100.0100, L504.2610, L501.5200, L506.0200, L3410.9992, L101.9900, L3100.1350, L3200.1200, L503.6550, L3200.0500, L501.6710 #### [facility] [address] [place], [address] ENDOMYSIAL IGA Negative Normal Negative [facility] Comment on above: Performed By: #### L 503.0106, L500.4050, L501.1400, L400.0001, L503.6030, L3000.0800, L100.9950, L3890.6006, L501.5101, L100.0100, L504.2610, L501.5200, L506.0200, L3410.9992, L101.9900, L3100.1350, L3200.1200, L503.6550, L3200.0500, L501.6710 #### [facility] [address] [place], [address] IMMUNOGLOB A QN 57 mg/dL Low 87-352 [facility] Comment on above: Result Comment: Perf ormed at: [facility] [address] [id number] Optical Lathe Operator: Preston Ashley PhD, Phone: [phone] Performed By: #### L 503.0106, L500.4050, L501.1400, L400.0001, L503.6030, L3000.0800, L100.9950, L3890.6006, L501.5101, L100.0100, L504.2610, L501.5200, L506.0200, L3410.9992, L101.9900, L3100.1350, L3200.1200, L503.6550, L3200.0500, L501.6710 #### [facility] [address] [place] [place], [address] tTG IGA <2 Normal 0-3 [facility] Comment on above: Result Comment: [...] L101.9900, L3100.1350, L3200.1200, L503.6550, L3200.0500, L501.6710 #### [facility] [address] [facility] [facility] [place], [address] tTG IGG 3 U/mL Normal 0-5 [facility] Comment on above: Result Comment: Nega tive 0 - 5 Weak Positive 6 - 9 Positive >9 Performed By: #### L 503.0106, L500.4050, L501.1400, L400.0001, L503.6030, L3000.0800, L100.9950, L3890.6006, L501.5101, L100.0100, L504.2610, L501.5200, L506.0200, L3410.9992, L101.9900, L3100.1350, L3200.1200, L503.6550, L3200.0500, L501.6710 #### [facility] [address] [place], [place], [id number] Folates, (Folic Acid)on 02-14 FOLATES 5.36 ng/mL Normal 4.60-34.80 [facility] Comment on above: Order Comment: ADD O N FROM EARLIER TODAY, THANKSFOLATES AND B12N Performed By: #### L 503.0106, L500.4050, L501.1400, L400.0001, L503.6030, L3000.0800, L100.9950, L3890.6006, L501.5101, L100.0100, L504.2610, L501.5200, L506.0200, L3410.9992, L101.9900, L3100.1350, L3200.1200, L503.6550, L3200.0500, L501.6710 #### [facility] [address] [place], [place], [address] No Panel InformationOrdered By: Glen Chapman on 03-08-2025 Tissue Transglutaminase IgG Ab 3 U/mL 0-5 [facility] Comment on above: Negative 0 - 5 Weak Positive 6 - 9 Positive >9 3 U/mL 0-5 [facility] Oncology Visit Reporton 02-14 Oncology Visit Report [facility] [address] [place] [address] OFFICE VISIT Date of Service: 03/08/25 0820 MR#: [id number] Acct: [id number] Name: HEIDI ANDREWS Rep #: [id number] : 1970 From: Glen Chapman MD Age/Sex: 55/F Location: [facility] Status: Signed HPI Subjective Date of Service 03/08/25 Chief Complaint Referred for Iron deficiency anemia. History of Present Illness 55 y.o.woman presented to PCP with SOB, fatigue, palpitations, she was found to Microcytic anemia with negative stool for occult blood on 03/05/2025. She is referred for management. Feels tired. Colonoscopy in Nov 2022 was negative. FORMERLY [facility], [facility] Medical History (Updated 03/08/25 @ 09:09 by [...] spouse current occupational status: employed current occupation: [employer] Smoking Status: Former smoker alcohol intake: never [...] (more content not included)... Normal [facility] Serum tissue transglutaminas e (tTG) IgA antibody assay (units/volume)Ordered By: Glen Chapman on 03-08-2025 tTG IgA Qn (S) <2 U/mL 0-3 [facility] Comment on above: Negative 0 - 3 Weak Positive 4 - 10 Positive >10 Tissue Transglutaminase (tTG) has been identified as the endomysial antigen. Studies have demonstr- ated that endomysial IgA antibodies have over 99% specificity for gluten sensitive enteropathy. Vitamin B12on 03-08-2025 Cobalamin (Vitamin B12) [Mass/Vol] 184 pg/mL Normal 180-914 [facility] Comment on above: Order Comment: ADD O N FROM EARLIER TODAY, THANKSFOLATES AND B12 Performed By: #### L 503.0106, L500.4050, L501.1400, L400.0001, L503.6030, L3000.0800, L100.9950, L3890.6006, L501.5101, L100.0100, L504.2610, L501.5200, L506.0200, L3410.9992, L101.9900, L3100.1350, L3200.1200, L503.6550, L3200.0500, L501.6710 #### [facility] [address] [place], [place], [id number] Vitamin B12 ser/plasOrdered By: Glen Chapman on 03-08-2025 Cobalamin (Vitamin B12) [Mass/Vol] 184 pg/mL 180-914 [facility] Ferritinon 03-05-2025 Ferritin [Mass/Vol] 13 ng/mL Low 22-378 [facility] Comment on above: Order Comment: Order Date: 03/02/25Order Info: [id number] - FEOrder Info: [id number] - FERComments: Low iron Performed By: #### L 503.0106, L500.4050, L501.1400, L400.0001, L503.6030, L3000.0800, L100.9950, L3890.6006, L501.5101, L100.0100, L504.2610, L501.5200, L506.0200, L3410.9992, L101.9900, L3100.1350, L3200.1200, L503.6550, L3200.0500, L501.6710 #### [facility] [address] [facility] [place], [place], [id number] (260) Ironon 03-05-2025 Iron [Mass/Vol] 33 ug/dL Low 50-170 [facility] Comment on above: Order Comment: Order Date: 03/02/25Order Info: [id number] - FEOrder Info: [id number] - FERComments: Low ironLow Iron Performed By: #### L 503.0106, L500.4050, L501.1400, L400.0001, L503.6030, L3000.0800, L100.9950, L3890.6006, L501.5101, L100.0100, L504.2610, L501.5200, L506.0200, L3410.9992, L101.9900, L3100.1350, L3200.1200, L503.6550, L3200.0500, L501.6710 #### [facility] [address] [facility] [place], [place], [id number] [phone] Iron (Unsp spec) [Mass/Mass] Ordered By: Red Perez on 03-05-2025 Iron [Mass/Vol] 33 ug/dL Low 50-170 [facility] Iron measurement (mass/mass) Ordered By: Red Perez on 03-05-2025 Iron (Unsp spec) [Mass/Mass] 33 ug/dL Low 50-170 [facility] Serum or plasma ferritin darrel surement (mass/volume)Ordered By: Red Perez on 03-05-2025 Ferritin [Mass/Vol] 13 ng/mL Low 22-378 [facility] PROLACTIN 4465on 03-03-2025 PROLACTIN 62.0 ng/mL High 3.6-25.2 [facility] Comment on above: Result Comment: Perf ormed at: [facility] [address] [id number] Optical Lathe Operator: Preston Ashley PhD, Phone: [phone] Performed By: #### L 503.0106, L500.4050, L501.1400, L400.0001, L503.6030, L3000.0800, L100.9950, L3890.6006, L501.5101, L100.0100, L504.2610, L501.5200, L506.0200, L3410.9992, L101.9900, L3100.1350, L3200.1200, L503.6550, L3200.0500, L501.6710 #### [facility] [address] [place], [address] Absolute lymphocyte countOrd ered By: Red Perez on 03-01-2025 Lymphocytes Auto (Unsp spec) [#/Vol] 0.63 10*3/uL Low 0.83-4.51 [facility] Absolute neutrophil countOrd ered By: Red Perez on 03-01-2025 Neutrophils (Bld) [#/Vol] 3.7 10*3/uL 2.0-7.7 [facility] Anion gap in Serum or Plasma Ordered By: Red Perez on 03-01-2025 Anion gap [Moles/Vol] 14 mmol/L 5-15 [facility] Automated lymphocyte count a s percentage of total leukocytesOrdered By: Red Perez on 03-01-2025 Lymphocytes/100 WBC Auto (Unsp spec) 12.6 % Low 19-41 [facility] BUN/creatinine ratioOrdered By: Red Perez on 03-01-2025 Urea nitrogen/Creatinine [Mass ratio] 11.5 mg/mg 10-20 [facility] Basophil percentageOrdered B y: Red Perez on 03-01-2025 Basophils/100 WBC (Bld) 0.4 % 0-1 W [facility] Bilirubin, totalOrdered By: Red Perez on 03-01-2025 Bilirubin [Mass/Vol] 0.57 mg/dL 0.00-1.30 [facility] CBC W/Diff, Automatedon 02-13 Anisocytosis Ql (Bld) 2+ Normal [facility] Comment on above: Performed By: #### L 503.0106, L500.4050, L501.1400, L400.0001, L503.6030, L3000.0800, L100.9950, L3890.6006, L501.5101, L100.0100, L504.2610, L501.5200, L506.0200, L3410.9992, L101.9900, L3100.1350, L3200.1200, L503.6550, L3200.0500, L501.6710 #### [facility] [address] [place], [place], [id number] HYPOCHROMASIA 1+ Normal [facility] Comment on above: Performed By: #### L 503.0106, L500.4050, L501.1400, L400.0001, L503.6030, L3000.0800, L100.9950, L3890.6006, L501.5101, L100.0100, L504.2610, L501.5200, L506.0200, L3410.9992, L101.9900, L3100.1350, L3200.1200, L503.6550, L3200.0500, L501.6710 #### [facility] [address] [place], [address] PLT EST ADEQUATE Normal ADEQ [facility] Comment on above: Performed By: #### L 503.0106, L500.4050, L501.1400, L400.0001, L503.6030, L3000.0800, L100.9950, L3890.6006, L501.5101, L100.0100, L504.2610, L501.5200, L506.0200, L3410.9992, L101.9900, L3100.1350, L3200.1200, L503.6550, L3200.0500, L501.6710 #### [facility] [address] [place] [place], [address] Calculated very low density lipoprotein (VLDL) cholesterol measurementOrdered By: Red Perez on 03-01-2025 Calculated very low density lipoprotein (VLDL) cholesterol measurement 27 mg/dL - [facility] VLDL Cholesterol 27 mg/dL - [facility] Carbon dioxide, total [Moles /volume] in Central venous bloodOrdered By: Red Perez on 03-01-2025 CO2 [Moles/Vol] 25.1 mmol/L 21.0-32.0 [facility] Chloride assayOrdered By: Edy Perez on 03-01-2025 Chloride [Moles/Vol] 99 mmol/L 98-108 [facility] Comprehensive Metabolic Prof ilon 03-01-2025 Albumin [Mass/Vol] 4.2 g/dL Normal 3.5-5.0 [facility] Comment on above: Order Comment: MADHAVI CTOR TO SPECIFY Performed By: #### L 503.0106, L500.4050, L501.1400, L400.0001, L503.6030, L3000.0800, L100.9950, L3890.6006, L501.5101, L100.0100, L504.2610, L501.5200, L506.0200, L3410.9992, L101.9900, L3100.1350, L3200.1200, L503.6550, L3200.0500, L501.6710 #### [facility] [address] [place], [place], [id number] Albumin/Globulin [Mass ratio] 1.6 {ratio} Normal 0.9-2.4 [facility] Comment on above: Order Comment: MADHAVI CTOR TO SPECIFY Performed By: #### L 503.0106, L500.4050, L501.1400, L400.0001, L503.6030, L3000.0800, L100.9950, L3890.6006, L501.5101, L100.0100, L504.2610, L501.5200, L506.0200, L3410.9992, L101.9900, L3100.1350, L3200.1200, L503.6550, L3200.0500, L501.6710 #### [facility] [address] [facility] [place], [place], [id number] ALK PHOS 190 U/L High 35-104 [facility] Comment on above: Order Comment: COLLE CTOR TO SPECIFY Performed By: #### L 503.0106, L500.4050, L501.1400, L400.0001, L503.6030, L3000.0800, L100.9950, L3890.6006, L501.5101, L100.0100, L504.2610, L501.5200, L506.0200, L3410.9992, L101.9900, L3100.1350, L3200.1200, L503.6550, L3200.0500, L501.6710 #### [facility] [address] [facility] [place], [place], [address] ALT [Catalytic activity/Vol] 67 U/L High <=34 [facility] Comment on above: Order Comment: COLLE CTOR TO SPECIFY Performed By: #### L 503.0106, L500.4050, L501.1400, L400.0001, L503.6030, L3000.0800, L100.9950, L3890.6006, L501.5101, L100.0100, L504.2610, L501.5200, L506.0200, L3410.9992, L101.9900, L3100.1350, L3200.1200, L503.6550, L3200.0500, L501.6710 #### [facility] [address] [facility] [place], [place], [address] AST [Catalytic activity/Vol] 86 U/L High <=31 [facility] Comment on above: Order Comment: COLLE CTOR TO SPECIFY Performed By: #### L 503.0106, L500.4050, L501.1400, L400.0001, L503.6030, L3000.0800, L100.9950, L3890.6006, L501.5101, L100.0100, L504.2610, L501.5200, L506.0200, L3410.9992, L101.9900, L3100.1350, L3200.1200, L503.6550, L3200.0500, L501.6710 #### [facility] [address] [facility] [place], [place], [id number] Bilirubin [Mass/Vol] 0.57 mg/dL Normal 0.00-1.30 [facility] Comment on above: Order Comment: COLLE CTOR TO SPECIFY Performed By: #### L 503.0106, L500.4050, L501.1400, L400.0001, L503.6030, L3000.0800, L100.9950, L3890.6006, L501.5101, L100.0100, L504.2610, L501.5200, L506.0200, L3410.9992, L101.9900, L3100.1350, L3200.1200, L503.6550, L3200.0500, L501.6710 #### [facility] [address] [place] [place], [address] BUN/CRE 11.5 RATIO Normal 10-20 [facility] Comment on above: Order Comment: COLLE CTOR TO SPECIFY Performed By: #### L 503.0106, L500.4050, L501.1400, L400.0001, L503.6030, L3000.0800, L100.9950, L3890.6006, L501.5101, L100.0100, L504.2610, L501.5200, L506.0200, L3410.9992, L101.9900, L3100.1350, L3200.1200, L503.6550, L3200.0500, L501.6710 #### [facility] [address] [place], [address] Calcium [Mass/Vol] 8.9 mg/dL Normal 7.6-11.0 [facility] Comment on above: Order Comment: COLLE CTOR TO SPECIFY Performed By: #### L 503.0106, L500.4050, L501.1400, L400.0001, L503.6030, L3000.0800, L100.9950, L3890.6006, L501.5101, L100.0100, L504.2610, L501.5200, L506.0200, L3410.9992, L101.9900, L3100.1350, L3200.1200, L503.6550, L3200.0500, L501.6710 #### [facility] [address] [place], [place], [id number] (823) Chloride [Moles/Vol] 99 mmol/L Normal 98-108 [facility] Comment on above: Order Comment: COLLE CTOR TO SPECIFY Performed By: #### L 503.0106, L500.4050, L501.1400, L400.0001, L503.6030, L3000.0800, L100.9950, L3890.6006, L501.5101, L100.0100, L504.2610, L501.5200, L506.0200, L3410.9992, L101.9900, L3100.1350, L3200.1200, L503.6550, L3200.0500, L501.6710 #### [facility] [address] [facility] [place], [place], [id number] (812) CO2 [Moles/Vol] 25.1 mmol/L Normal 21.0-32.0 [facility] Comment on above: Order Comment: COLLE CTOR TO SPECIFY Performed By: #### L 503.0106, L500.4050, L501.1400, L400.0001, L503.6030, L3000.0800, L100.9950, L3890.6006, L501.5101, L100.0100, L504.2610, L501.5200, L506.0200, L3410.9992, L101.9900, L3100.1350, L3200.1200, L503.6550, L3200.0500, L501.6710 #### [facility] [address] [facility], [place], [id number] Creatinine [Mass/Vol] 1.04 mg/dL Normal 0.70-1.20 [facility] Comment on above: Order Comment: MADHAVI CTOR TO SPECIFY Performed By: #### L 503.0106, L500.4050, L501.1400, L400.0001, L503.6030, L3000.0800, L100.9950, L3890.6006, L501.5101, L100.0100, L504.2610, L501.5200, L506.0200, L3410.9992, L101.9900, L3100.1350, L3200.1200, L503.6550, L3200.0500, L501.6710 #### [facility] [address] [place], [place], [id number] GAP 14 Normal 5-15 [facility] Comment on above: Order Comment: MADHAVI CTOR TO SPECIFY Performed By: #### L 503.0106, L500.4050, L501.1400, L400.0001, L503.6030, L3000.0800, L100.9950, L3890.6006, L501.5101, L100.0100, L504.2610, L501.5200, L506.0200, L3410.9992, L101.9900, L3100.1350, L3200.1200, L503.6550, L3200.0500, L501.6710 #### [facility] [address] [place], [place], [id number] GFR/1.73 sq M.predicted among non-blacks MDRD (S/P/Bld) [Vol rate/Area] 64 mL/min/{1.73_m2} Normal >60 [facility] Comment on above: Order Comment: MADHAVI CTOR TO SPECIFY Result Comment: mL/m in/1.73m2 CKD-EPI Creatinine Equation (2020) Performed By: #### L 503.0106, L500.4050, L501.1400, L400.0001, L503.6030, L3000.0800, L100.9950, L3890.6006, L501.5101, L100.0100, L504.2610, L501.5200, L506.0200, L3410.9992, L101.9900, L3100.1350, L3200.1200, L503.6550, L3200.0500, L501.6710 #### [facility] [address] [place], [address] Globulin (S) [Mass/Vol] 2.6 g/dL Normal 2.2-4.2 [facility] Comment on above: Order Comment: MADHAVI CTOR TO SPECIFY Performed By: #### L 503.0106, L500.4050, L501.1400, L400.0001, L503.6030, L3000.0800, L100.9950, L3890.6006, L501.5101, L100.0100, L504.2610, L501.5200, L506.0200, L3410.9992, L101.9900, L3100.1350, L3200.1200, L503.6550, L3200.0500, L501.6710 #### [facility] [address] [place], [place], [id number] [phone] Glucose [Mass/Vol] 158 mg/dL High 70-99 [facility] Comment on above: Order Comment: MADHAVI CTOR TO SPECIFY Performed By: #### L 503.0106, L500.4050, L501.1400, L400.0001, L503.6030, L3000.0800, L100.9950, L3890.6006, L501.5101, L100.0100, L504.2610, L501.5200, L506.0200, L3410.9992, L101.9900, L3100.1350, L3200.1200, L503.6550, L3200.0500, L501.6710 #### [facility] [address] [place], [place], [id number] [phone] Potassium [Moles/Vol] 4.2 mmol/L Normal 3.3-5.1 [facility] Comment on above: Order Comment: MADHAVI CTOR TO SPECIFY Performed By: #### L 503.0106, L500.4050, L501.1400, L400.0001, L503.6030, L3000.0800, L100.9950, L3890.6006, L501.5101, L100.0100, L504.2610, L501.5200, L506.0200, L3410.9992, L101.9900, L3100.1350, L3200.1200, L503.6550, L3200.0500, L501.6710 #### [facility] [address] [place], [address] (547) Sodium [Moles/Vol] 138 mmol/L Normal 133-145 [facility] Comment on above: Order Comment: MADHAVI CTOR TO SPECIFY Performed By: #### L 503.0106, L500.4050, L501.1400, L400.0001, L503.6030, L3000.0800, L100.9950, L3890.6006, L501.5101, L100.0100, L504.2610, L501.5200, L506.0200, L3410.9992, L101.9900, L3100.1350, L3200.1200, L503.6550, L3200.0500, L501.6710 #### [facility] [address] [place], [address] (349) T PROT 6.8 g/dL Normal 5.9-8.4 [facility] Comment on above: Order Comment: MADHAVI CTOR TO SPECIFY Performed By: #### L 503.0106, L500.4050, L501.1400, L400.0001, L503.6030, L3000.0800, L100.9950, L3890.6006, L501.5101, L100.0100, L504.2610, L501.5200, L506.0200, L3410.9992, L101.9900, L3100.1350, L3200.1200, L503.6550, L3200.0500, L501.6710 #### [facility] [address] [facility] [place], [place], [id number] Urea nitrogen [Mass/Vol] 12 mg/dL Normal 4-19 [facility] Comment on above: Order Comment: COLLE CTOR TO SPECIFY Performed By: #### L 503.0106, L500.4050, L501.1400, L400.0001, L503.6030, L3000.0800, L100.9950, L3890.6006, L501.5101, L100.0100, L504.2610, L501.5200, L506.0200, L3410.9992, L101.9900, L3100.1350, L3200.1200, L503.6550, L3200.0500, L501.6710 #### [facility] [address] [facility] [place], [place], [id number] Eosinophil percentageOrdered By: Red Perez on 03-01-2025 Eosinophils/100 WBC (Bld) 4.0 % 0-5 [facility] Erythrocyte distribution wid th (RBC) [Ratio]Ordered By: Red Perez on 03-01-2025 Erythrocyte distribution width (RBC) [Entitic vol] 55.5 fL High 35.1-43.9 [facility] Erythrocyte distribution wid th ratioOrdered By: Red Perez on 03-01-2025 Erythrocyte distribution width (RBC) [Ratio] 20.9 % High 11.6-14.6 [facility] Erythrocyte distribution wid th standard deviationOrdered By: Red Perez on 03-01-2025 Erythrocyte distribution width (RBC) [Ratio] 55.5 fl High 35.1-43.9 [facility] GFR/1.73 sq M.predicted sonny g non-blacks MDRD (S/P/Bld) [Vol rate/Area]Ordered By: Red Perez on 03-01-2025 Estimated GFR (MDRD) Non-Af Amer 64 >60 [facility] Comment on above: mL/min/1.73m2 CKD-EP I Creatinine Equation (2020) Glomerular filtration rate ( GFR) estimation/1.73 sq m using serum, plasma, or whole bOrdered By: Red Perez on 03-01-2025 GFR/1.73 sq M.predicted among non-blacks MDRD (S/P/Bld) [Vol rate/Area] 64 mL/min/{1.73_m2} >60 [facility] Comment on above: mL/min/1.73m2 CKD-EP I Creatinine Equation (2020) Hematocrit Auto (Bld) [Volum e fraction]Ordered By: Red Perez on 03-01-2025 Hematocrit (Bld) [Volume fraction] 26.7 % Low 37-47 [facility] Hemoglobin A1con 03-01-2025 HbA1c (Bld) [Mass fraction] 7.6 % High <=5.6 [facility] Comment on above: Result Comment: Norm al < 5.7 % Prediabetic 5.7 - 6.4 % Diabetic >or= 6.5 % Please note range changes. Performed By: #### L 503.0106, L500.4050, L501.1400, L400.0001, L503.6030, L3000.0800, L100.9950, L3890.6006, L501.5101, L100.0100, L504.2610, L501.5200, L506.0200, L3410.9992, L101.9900, L3100.1350, L3200.1200, L503.6550, L3200.0500, L501.6710 #### [facility] [address] [place], [place], [id number] Hemoglobin A1c percentageOrd ered By: Red Perez on 03-01-2025 HbA1c (Bld) [Mass fraction] 7.6 % High <5.7 [facility] Comment on above: Normal < 5.7 % Predi abetic 5.7 - 6.4 % Diabetic >or= 6.5 % Please note range changes. Hemoglobin measurementOrdere d By: Red Perez on 03-01-2025 Hemoglobin (Bld) [Mass/Vol] 7.2 g/dL Low 12.0-15. 0 [facility] Hypochromatic red blood cell detectionOrdered By: Red Perez on 03-01-2025 Hypochromia Ql (Bld) 1+ [facility] Hypochromia Ql (Bld)Ordered By: Red Perez on 03-01-2025 Hypochromasia 1+ [facility] Immature granulocytes/100 WB C Auto (Bld)Ordered By: Red Perez on 03-01-2025 Immature granulocytes/100 WBC (Bld) 1.200 % High 0.0-0.9 [facility] Comment on above: IG% - Immature Granu locytes (promyelocytes, myelocytes and metamyelocytes) > 1% indicates that a LEFT SHIFT is Present. L501.4021on 03-01-2025 Trop T High Sen 14 ng/L Normal <=14 [facility] Comment on above: Order Comment: COLLE CTOR TO SPECIFY Performed By: #### L 503.0106, L500.4050, L501.1400, L400.0001, L503.6030, L3000.0800, L100.9950, L3890.6006, L501.5101, L100.0100, L504.2610, L501.5200, L506.0200, L3410.9992, L101.9900, L3100.1350, L3200.1200, L503.6550, L3200.0500, L501.6710 #### [facility] [address] [place], [address] LDL calc ser/plasOrdered By: Red Perez on 03-01-2025 Cholesterol in LDL [Mass/Vol] 117 mg/dL [facility] Comment on above: Pukkhuhjsx=922-556 m g/dL & Higher Sldl=816 mg/dL or greater LDL Cholesterol, Calculated 117 mg/dL [facility] Comment on above: Mnspmabuhv=105-404 m g/dL & Higher Amvb=817 mg/dL or greater Laboratory - Chemistry and C hemistry - challengeOrdered By: Red Perez on 03-01-2025 AST [Catalytic activity/Vol] 86 U/L High <32 [facility] Laboratory - Hematology and Cell countsOrdered By: Red Perez on 03-01-2025 Anisocytosis Ql (Bld) 2+ [facility] Lipid Profileon 03-01-2025 CHOL:HDL 3.89 Normal [facility] Comment on above: Order Comment: MADHAVI CTOR TO SPECIFY Performed By: #### L 503.0106, L500.4050, L501.1400, L400.0001, L503.6030, L3000.0800, L100.9950, L3890.6006, L501.5101, L100.0100, L504.2610, L501.5200, L506.0200, L3410.9992, L101.9900, L3100.1350, L3200.1200, L503.6550, L3200.0500, L501.6710 #### [facility] [address] [place], [address] (134) Cholesterol [Mass/Vol] 194 mg/dL Normal <=200 [facility] Comment on above: Order Comment: MADHAVI CTOR TO SPECIFY Result Comment: Chol esterol level, Desirable <200 mg/dL Borderline high cholesterol 200-239 mg/dL High cholesterol >=240 mg/dL Recommendations of the NCEP Adult Treatment Panel for the following risk-cutoff thresholds for the [place] population. Performed By: #### L 503.0106, L500.4050, L501.1400, L400.0001, L503.6030, L3000.0800, L100.9950, L3890.6006, L501.5101, L100.0100, L504.2610, L501.5200, L506.0200, L3410.9992, L101.9900, L3100.1350, L3200.1200, L503.6550, L3200.0500, L501.6710 #### [facility] [address] [place], [place], [id number] Cholesterol in HDL [Mass/Vol] 50 mg/dL Normal [facility] Comment on above: Order Comment: MADHAVI CTOR TO SPECIFY Result Comment: Mayda onal [...] L101.9900, L3100.1350, L3200.1200, L503.6550, L3200.0500, L501.6710 #### [facility] [address] [place], [address] (884) Cholesterol in LDL [Mass/Vol] 117 mg/dL Normal [facility] Comment on above: Order Comment: COLLE CTOR TO SPECIFY Result Comment: Bord rbqess=915-241 mg/dL Higher Mpfw=105 mg/dL or greater Performed By: #### L 503.0106, L500.4050, L501.1400, L400.0001, L503.6030, L3000.0800, L100.9950, L3890.6006, L501.5101, L100.0100, L504.2610, L501.5200, L506.0200, L3410.9992, L101.9900, L3100.1350, L3200.1200, L503.6550, L3200.0500, L501.6710 #### [facility] [address] [place], [address] Cholesterol in VLDL [Mass/Vol] 27 mg/dL Normal 5-40 [facility] Comment on above: Order Comment: COLLE CTOR TO SPECIFY Performed By: #### L 503.0106, L500.4050, L501.1400, L400.0001, L503.6030, L3000.0800, L100.9950, L3890.6006, L501.5101, L100.0100, L504.2610, L501.5200, L506.0200, L3410.9992, L101.9900, L3100.1350, L3200.1200, L503.6550, L3200.0500, L501.6710 #### [facility] [address] [place], [address] Triglyceride [Mass/Vol] 134 mg/dL Normal [facility] Comment on above: Order Comment: COLLE CTOR TO SPECIFY Result Comment: The drugs N-Acetylcysteine and Metamizole may falsely depress this assay. Normal range: <150 mg/dL Borderline High: 150-199 mg/dL High: 200-499 mg/dL Very High: >500 mg/dL Performed By: #### L 503.0106, L500.4050, L501.1400, L400.0001, L503.6030, L3000.0800, L100.9950, L3890.6006, L501.5101, L100.0100, L504.2610, L501.5200, L506.0200, L3410.9992, L101.9900, L3100.1350, L3200.1200, L503.6550, L3200.0500, L501.6710 #### [facility] [address] [facility] [place], [place], [id number] Lymphocytes Auto (Unsp spec) [#/Vol]Ordered By: Red Perez on 03-01-2025 Lymphocytes (Bld) [#/Vol] 0.63 10*3/uL Low 0.83-4.5 1 [facility] Lymphocytes/100 WBC Auto (Un sp spec)Ordered By: Red Perez on 03-01-2025 Lymphocytes/100 WBC (Bld) 12.6 % Low 19-41 [facility] MCV (mean corpuscular volume ) determinationOrdered By: Red Perez on 03-01-2025 MCV (RBC) [Entitic vol] 75.4 fL Low 81-99 [facility] Mean corpuscular hemoglobin (MCH) determinationOrdered By: Red Perez on 03-01-2025 MCH (RBC) [Entitic mass] 20.3 pg Low 27.0-32.0 [facility] Mean corpuscular hemoglobin concentration (MCHC) determinationOrdered By: Red Perez on 03-01-2025 MCHC (RBC) [Mass/Vol] 27.0 g/dL Low 32-36 [facility] Mean platelet volume determi nationOrdered By: Red Perez on 03-01-2025 Platelet mean volume (Bld) [Entitic vol] 10.5 fL 6.2-12.0 [facility] Monocyte percentageOrdered B y: Red Perez on 03-01-2025 Monocytes/100 WBC (Bld) 8.0 % 0-10 [facility] Neutrophil percentageOrdered By: Red Perez on 03-01-2025 Neutrophils/100 WBC (Bld) 73.8 % High 47-70 [facility] Nucleated red blood cell per centageOrdered By: Red Perez on 03-01-2025 Nucleated RBC/100 WBC (Bld) [Ratio] 0 % 0-5 [facility] Platelet countOrdered By: Edy Perez on 03-01-2025 Platelet Count See comment 150-450 [facility] Comment on above: Please note: [...] [place] Platelets LM Ql (Bld)Ordered By: Red Perez on 03-01-2025 Platelet Estimate [facility] Potassium (Unsp spec) [Mass/ Vol]Ordered By: Red Perez on 03-01-2025 Potassium [Moles/Vol] 4.2 mmol/L 3.3-5.1 [facility] [place] Potassium measurement (mass/ volume)Ordered By: Red Perez on 03-01-2025 Potassium (Unsp spec) [Mass/Vol] 4.2 mmol/L 3.3-5.1 [facility] Prolactin [Mass/Vol]Ordered By: Red Perez on 03-01-2025 Prolactin 62.0 ng/mL High 3.6-25.2 [facility] Comment on above: Performed at: [address] [id number] Director: Preston Ashley PhD, Phone: [phone] RBC Auto (Bld) [#/Vol]Ordere d By: Red Perez on 03-01-2025 RBC (Bld) [#/Vol] 3.54 10*6/uL Low 4.2-5.4 [facility] Screening total cholesterol/ high density lipoprotein (HDL) cholesterol ratioOrdered By: Red Perez on 03-01-2025 Cholesterol.total/Cholester ol in HDL [Mass ratio] 3.89 {ratio} [facility] Serum creatinine measurement (mass/volume)Ordered By: Red Perez on 03-01-2025 Creatinine [Mass/Vol] 1.04 mg/dL 0.70-1.20 [facility] Serum globulin measurementOr dered By: Red Perez on 03-01-2025 Globulin (S) [Mass/Vol] 2.6 g/dL 2.2-4.2 [facility] Serum glucose measurement (m ass/volume)Ordered By: Red Perez on 03-01-2025 Glucose [Mass/Vol] 158 mg/dL High 70-99 [facility] Serum or plasma alanine cueto otransferase (ALT) measurementOrdered By: Red Perez on 03-01-2025 ALT [Catalytic activity/Vol] 67 U/L High <35 [facility] Serum or plasma albumin sandy urement (mass/volume)Ordered By: Red Perez on 03-01-2025 Albumin [Mass/Vol] 4.2 g/dL 3.5-5.0 [facility] Serum or plasma albumin/glob ulin mass ratioOrdered By: Red Perez on 03-01-2025 Albumin/Globulin [Mass ratio] 1.6 {ratio} 0.9-2.4 [facility] Serum or plasma alkaline rebecca sphatase measurementOrdered By: Red Perez on 03-01-2025 ALP [Catalytic activity/Vol] 190 U/L High 35-104 [facility] Serum or plasma calcium sandy urement (mass/volume)Ordered By: Red Perez on 03-01-2025 Calcium [Mass/Vol] 8.9 mg/dL 7.6-11.0 [facility] Serum or plasma cholesterol in HDL measurement (mass/volume)Ordered By: Red Perez on 03-01-2025 Cholesterol in HDL [Mass/Vol] 50 mg/dL >40 [facility] Comment on above: National Cholesterol Education Program (NCEP) guidelines:<40 mg/dL: Low HDL-cholesterol (major risk factor for CHD)>= 60 mg/dL: High HDL-cholesterol (negative risk factor for CHD)HDL-cholesterol is affected by a number of factors, e.g. smoking, exercise, hormones, sex and age. Serum or plasma cholesterol measurement (mass/volume)Ordered By: Red Perez on 03-01-2025 Cholesterol [Mass/Vol] 194 mg/dL <201 [facility] Comment on above: Cholesterol level, D esirable <200 mg/dLBorderline high cholesterol 200-239 mg/dLHigh cholesterol >=240 mg/dLRecommendations of the NCEP Adult Treatment Panel for the following risk-cutoff thresholds for the [place] population. Serum or plasma prolactin me asurement (mass/volume)Ordered By: Red Perez on 03-01-2025 Prolactin [Mass/Vol] 62.0 ng/mL High 3.6-25.2 [facility] Comment on above: Performed at: [place] [id number] Director: Preston Ashley PhD, Phone: [phone] Serum or plasma urea nitroge n measurement (mass/volume)Ordered By: Red Perez on 03-01-2025 Urea nitrogen [Mass/Vol] 12 mg/dL 4-19 [facility] Sodium levelOrdered By: Red Perez on 03-01-2025 Sodium [Moles/Vol] 138 mmol/L 133-145 [facility] Total proteinOrdered By: Senait Perez on 03-01-2025 Protein [Mass/Vol] 6.8 g/dL 5.9-8.4 [facility] Triglycerides measurementOrd ered By: Red Perez on 03-01-2025 Triglyceride [Mass/Vol] 134 mg/dL <199 [facility] Comment on above: The drugs N-Acetylcy steine and Metamizole may falsely depress this assay. Normal range: <150 mg/dLBorderline High: 150-199 mg/dLHigh: 200-499 mg/dLVery High: >500 mg/dL Troponin T.cardiac High sens itivity method [Mass/Vol]Ordered By: Red Perez on 03-01-2025 Troponin T High Sensitivity 14 ng/L <14 [facility] Troponin T.cardiac [Mass/vol ume] in Serum or Plasma by High sensitivity methodOrdered By: Red Perez on 03-01-2025 Troponin T.cardiac High sensitivity method [Mass/Vol] 14 ng/L <14 [facility] White blood cell (WBC) count Ordered By: Red Perez on 03-01-2025 WBC (Bld) [#/Vol] 5.0 10*3/uL 4.4-11.0 [facility] Urgent Care Visit Reporton 1 12-08-2023 Urgent Care Visit Report [facility] [address], [address] [place] [address] OFFICE VISIT Date of Service: 10/08/24 MR#: [id number] Acct: [id number] Name: HEIDI ANDREWS Rep #: [id number] : 1970 Provider: DELILAH hansen Age/Sex: 54/F Location: [facility] Status: Signed Intake Vital Signs 12/01/22 09:27 [...] (Updated 10/08/24 @ 08:54 by Enrique Hwang DIE DRAWING CHECKER, DIE DRAWING CHECKER-C) Wears glasses Thyroid disease Diabetes Anemia [...] distress Orientation: alert, awake and oriented x3 [facility] Head: normal to inspection and normocephalic Ears: hearing grossly normal bilaterally, external ears normal and TM's normal bilaterally Nose: external nose normal, nares normal and no nasal discharge Face and sinus: normal facial exam and sinuses nontender Mouth: oral mucosae normal, lip normal, tongue normal, oropharynx normal and moist mu (more content not included)... Normal [facility] Cervical or vagninal specime n microscopic examination by cytology stain (reported asOrdered By: Patricia Thompson on 02-07-2024 Cytology report Cyto stain Doc (Cvx/Vag) Comment . [facility] Comment on above: The Pap [...] amp Ql (Cvx) Negative Negative [facility] Comment on above: This nucleic acid am plification test detects fourteen high-risk HPV types (16,18,31,33,35,39,45,51,52,56,58,59,66,68)without differentiation.Performed at: [address] [id number] Director: Cierra Chew MD, Phone: [phone] at: =[facility] [id number] Director: Cierra Chew MD, Phone: [phone] Laboratory - CytologyOrdered By: Patricia Thompson on 02-07-2024 Business Consult Cyto stain Nom (Cvx/Vag) [ID] Comment . [facility] Comment on above: Pema Kincaid, Cyto technologist (ASCP) Laboratory - Miscellaneous t estsOrdered By: Patricia Thompson on 02-07-2024 Service comment (Unsp spec) [Interp] . . [facility] Thin prep Papanicolaou smear with manual screeningOrdered By: Patricia Thompson on 02-07-2024 Thin prep Papanicolaou smear with manual screening Comment . [facility] Comment on above: NEGATIVE FOR INTRAEP ITHELIAL LESION OR MALIGNANCY. This liquid based Th inPrep(R) pap test was screened withthe use of an image guided system. Basophil percentageOrdered B y: Red Perez on 01-19-2024 Chloride [Moles/Vol] 104 mmol/L 98-[address] [facility] Cholesterol [Mass/Vol] 197 mg/dL <200 [facility] Comment on above: <200 mg/dL Desirable 200-240 mg/dL Borderline >240 mg/dL High Risk Glucose [Mass/Vol] 108 mg/dL 74-106 [facility] Comment on above: Fasting Glucose resu lt from 100 to 125 mg/dL suggests IMPAIRED HOMEOSTASIS per A.D.A. criteria. Potassium [Moles/Vol] 4.2 mmol/L 3.5-5.1 [facility] Sodium [Moles/Vol] 136 mmol/L 136-145 [facility] Triglyceride [Mass/Vol] 132 mg/dL <199 [facility] Comment on above: The drugs N-Acetylcy steine and Metamizole may falsely depress this assay.Serum Triglycerides Reference Interval Normal <150 mg/dL Borderline high 150 - 199 mg/dL High 200 - 499 mg/dL Very High > or = 500 mg/dL Laboratory - Chemistry and C hemistry - challengeOrdered By: Red Perez on 01-19-2024 Cholesterol in HDL [Mass/Vol] 43 mg/dL >40 [facility] Comment on above: The drugs N-Acetylcy steine and Metamizole may falsely depress this assay. Reference Range HDL <40 mg/dL Low HDL Cholesterol HDL >or= 60 mg/dL High HDL Cholesterol Cholesterol in LDL [Mass/Vol] 128 mg/dL 0-130 [facility] CO2 [Moles/Vol] 27.0 mmol/L 21.0-32.0 [facility] Urea nitrogen/Creatinine [Mass ratio] 10.7 mg/mg 10-20 [facility] No Panel InformationOrdered By: Red Perez on 01-19-2024 Estimated GFR (MDRD) Amer 81 mL/min >60 [facility] Comment on above: GFR Calc Estimated GFR (MDRD) Non-Af Amer 67 mL/min >60 [facility] Comment on above: Non- GFR Calc Free Triiodothyronine (T3) pg/dL 2.0 pg/mL 2.18-3.98 [facility] VLDL Cholesterol 26 mg/dL 5-40 [facility] Serum or plasma calcium sandy urement (mass/volume)Ordered By: Red Perez on 01-19-2024 Calcium [Mass/Vol] 8.9 mg/dL 8.5-10.1 [facility] Serum or plasma creatinine m easurement [...] TSH Qn 2.60 uIU/mL 0.358-3.74 [facility] Serum or plasma urea nitroge n measurement (mass/volume)Ordered By: Red Perez on 01-19-2024 Urea nitrogen [Mass/Vol] 10 mg/dL 7-18 [facility] Thin prep Papanicolaou smear with manual screeningOrdered By: Red Perez on 01-19-2024 Thin prep Papanicolaou smear with manual screening 5 5-15 [facility] Thin prep Papanicolaou smear with manual screening 1.33 ng/dL 0.76-1.46 [facility] Basophil percentageOrdered B y: Red Perez on 07-26-2023 Chloride [Moles/Vol] 104 mmol/L 98-107 [facility] Cholesterol [Mass/Vol] 186 mg/dL <200 [facility] Comment on above: <200 mg/dL Desirable 200-240 mg/dL Borderline >240 mg/dL High Risk Glucose [Mass/Vol] 121 mg/dL 74-106 [facility] Comment on above: Fasting Glucose resu lt from 100 to 125 mg/dL suggests IMPAIRED HOMEOSTASIS per A.D.A. criteria. Potassium [Moles/Vol] 3.8 mmol/L 3.5-5.1 [facility] Sodium [Moles/Vol] 139 mmol/L 136-145 [facility] Triglyceride [Mass/Vol] 198 mg/dL <199 [facility] Comment on above: The drugs N-Acetylcy steine and Metamizole may falsely depress this assay.Serum Triglycerides Reference Interval Normal <150 mg/dL Borderline high 150 - 199 mg/dL High 200 - 499 mg/dL Very High > or = 500 mg/dL Laboratory - Chemistry and C hemistry - challengeOrdered By: Red Perez on 07-26-2023 CO2 [Moles/Vol] 27.0 mmol/L 21.0-32.0 [facility] Urea nitrogen/Creatinine [Mass ratio] 10.4 mg/mg 10-20 [facility] No Panel InformationOrdered By: Red Perez on 07-26-2023 Estimated GFR (MDRD) Amer 79 mL/min >60 [facility] Comment on above: GFR Calc Estimated GFR (MDRD) Non-Af Amer 65 mL/min >60 [facility] Comment on above: Non- GFR Calc Thyroid Stimulating Hormone (TSH) 1.67 uIU/mL 0.358-3.74 [facility] Serum or plasma calcium sandy urement (mass/volume)Ordered By: Red Perez on 07-26-2023 Calcium [Mass/Vol] 8.8 mg/dL 8.5-10.1 [facility] Serum or plasma cholesterol in HDL measurement (mass/volume)Ordered By: Red Perez on 07-26-2023 Cholesterol in HDL [Mass/Vol] 36 mg/dL >40 [facility] Comment on above: The drugs N-Acetylcy steine and Metamizole may falsely depress this assay. Reference Range HDL <40 mg/dL Low HDL Cholesterol HDL >or= 60 mg/dL High HDL Cholesterol Serum or plasma cholesterol in VLDL measurement (mass/volume)Ordered By: Red Perez on 07-26-2023 Cholesterol in VLDL [Mass/Vol] 40 mg/dL 5-40 [facility] Serum or plasma creatinine m [...] LDL [Mass/Vol] 110 mg/dL 0-130 [facility] Serum or plasma urea nitroge n measurement (mass/volume)Ordered By: Red Perez on 07-26-2023 Urea nitrogen [Mass/Vol] 10 mg/dL 7-18 [facility] Thin prep Papanicolaou smear with manual screeningOrdered By: Red Perez on 07-26-2023 Thin prep Papanicolaou smear with manual screening 8 5-15 [facility] Whole blood hemoglobin A1c/t otal hemoglobin ratio (mass fraction)Ordered By: Red Perez on 07-26-2023 HbA1c (Bld) [Mass fraction] 5.6 % 3.8-5.6 [facility] Comment on above: Normal < 5.7 % Predi abetic 5.7 - 6.4 % Diabetic >or= 6.5 % Please note range changes. Basophil percentageOrdered B y: Dr. Perez on 01-25-2023 Chloride [Moles/Vol] 105 mmol/L 98-107 [facility] Cholesterol [Mass/Vol] 194 mg/dL <200 [facility] Comment on above: <200 mg/dL Desirable 200-240 mg/dL Borderline >240 mg/dL High Risk Glucose [Mass/Vol] 123 mg/dL 74-106 [facility] Comment on above: Fasting Glucose resu lt from 100 to 125 mg/dL suggests IMPAIRED HOMEOSTASIS per A.D.A. criteria. Potassium [Moles/Vol] 3.6 mmol/L 3.5-5.1 [facility] Sodium [Moles/Vol] 140 mmol/L 136-145 [facility] Triglyceride [Mass/Vol] 166 mg/dL <199 [facility] Comment on above: The drugs N-Acetylcy steine and Metamizole may falsely depress this assay.Serum Triglycerides Reference Interval Normal <150 mg/dL Borderline high 150 - 199 mg/dL High 200 - 499 mg/dL Very High > or = 500 mg/dL Laboratory - Chemistry and C hemistry - challengeOrdered By: Dr. Perez on 01-25-2023 CO2 [Moles/Vol] 25.0 mmol/L 21.0-32.0 [facility] Free T4 [Mass/Vol] 1.31 ng/dL 0.76-1.46 [facility] Urea nitrogen/Creatinine [Mass ratio] 12.0 mg/mg 10-20 [facility] No Panel InformationOrdered By: Dr. Perez on 01-25-2023 Estimated GFR (MDRD) Amer 58 mL/min >60 [facility] Comment on above: GFR Calc Estimated GFR (MDRD) Non-Af Amer 48 mL/min >60 [facility] Comment on above: Non- GFR Calc Free Triiodothyronine (T3) pg/dL 1.5 pg/mL 2.18-3.98 [facility] Thyroid Stimulating Hormone (TSH) 1.52 uIU/mL 0.358-3.74 [facility] Serum or plasma calcium sandy urement (mass/volume)Ordered By: Dr. Perez on 01-25-2023 Calcium [Mass/Vol] 9.5 mg/dL 8.5-10.1 [facility] Serum or plasma cholesterol in HDL measurement (mass/volume)Ordered By: Dr. Perez on 01-25-2023 Cholesterol in HDL [Mass/Vol] 39 mg/dL >40 [facility] Comment on above: The drugs N-Acetylcy steine and Metamizole may falsely depress this assay. Reference Range HDL <40 mg/dL Low HDL Cholesterol HDL >or= 60 mg/dL High HDL Cholesterol Serum or plasma cholesterol in VLDL measurement (mass/volume)Ordered By: Dr. Perez on 01-25-2023 Cholesterol in VLDL [Mass/Vol] 33 mg/dL 5-40 [facility] Serum or plasma creatinine m [...] LDL [Mass/Vol] 122 mg/dL 0-130 [facility] Serum or plasma urea nitroge n measurement (mass/volume)Ordered By: Dr. Perez on 01-25-2023 Urea nitrogen [Mass/Vol] 15 mg/dL 7-18 [facility] Thin prep Papanicolaou smear with manual screeningOrdered By: Dr. Perez on 03-13-2023 Thin prep Papanicolaou smear with manual screening 10 5-15 [facility] Glucose Glucometer (BldC) [M ass/Vol]Ordered By: Dr. Marie on 12-01-2022 Glucose [Mass/Vol] 147 mg/dL 74-106 [facility] Comment on above: MANAGEMENT OF PATIEN T CARE PER NURSING PROTOCOL Basophil percentageon 2021 Chloride [Moles/Vol] 107 mmol/L 98-107 [facility] Work Phone: Cholesterol [Mass/Vol] 175 mg/dL <200 [facility] Work Phone: Comment on above: <200 mg/dL Desirable 200-240 mg/dL Borderline >240 mg/dL High Risk Glucose [Mass/Vol] 117 mg/dL 74-106 [facility] Work Phone: Comment on above: Fasting Glucose resu lt from 100 to 125 mg/dL suggests IMPAIRED HOMEOSTASIS per A.D.A. criteria. Potassium [Moles/Vol] 4.0 mmol/L 3.5-5.1 [facility] Work Phone: Sodium [Moles/Vol] 140 mmol/L 136-145 [facility] Work Phone: Triglyceride [Mass/Vol] 141 mg/dL <199 [facility] Work Phone: Comment on above: The drugs N-Acetylcy steine and Metamizole may falsely depress this assay.Serum Triglycerides Reference Interval Normal <150 mg/dL Borderline high 150 - 199 mg/dL High 200 - 499 mg/dL Very High > or = 500 mg/dL Laboratory - Chemistry and C hemistry - challengeon 07-27-2022 CO2 [Moles/Vol] 23.0 mmol/L 21.0-32.0 [facility] Work Phone: Free T4 [Mass/Vol] 1.26 ng/dL 0.76-1.46 [facility] Work Phone: Urea nitrogen/Creatinine [Mass ratio] 9.6 mg/mg 10-20 [facility] Work Phone: No Panel Informationon 07-27 Estimated GFR (MDRD) Amer 72 mL/min >60 [facility] Work Phone: Comment on above: GFR Calc Estimated GFR (MDRD) Non-Af Amer 60 mL/min >60 [facility] Work Phone: Comment on above: Non- GFR Calc Free Triiodothyronine (T3) pg/dL 2.0 pg/mL 2.18-3.98 [facility] Work Phone: Thyroid Stimulating Hormone (TSH) 1.24 uIU/mL 0.358-3.74 [facility] Work Phone: Serum or plasma calcium sandy urement (mass/volume)on 07-27-2022 Calcium [Mass/Vol] 9.1 mg/dL 8.5-10.1 [facility] Work Phone: Serum or plasma cholesterol in HDL measurement (mass/volume)on 07-27-2022 Cholesterol in HDL [Mass/Vol] 41 mg/dL >40 [facility] Work Phone: Comment on above: The drugs N-Acetylcy steine and Metamizole may falsely depress this assay. Reference Range HDL <40 mg/dL Low HDL Cholesterol HDL >or= 60 mg/dL High HDL Cholesterol Serum or plasma cholesterol in VLDL measurement (mass/volume)on 07-27-2022 Cholesterol in VLDL [Mass/Vol] 28 mg/dL 5-40 [facility] Work Phone: Serum or plasma [...] LDL [Mass/Vol] 106 mg/dL 0-130 [facility] Work Phone: Serum or plasma urea nitroge n measurement (mass/volume)on 07-27-2022 Urea nitrogen [Mass/Vol] 10 mg/dL 7-18 [facility] Work Phone: Thin prep Papanicolaou smear with manual screeningon 07-27-2022 Thin prep Papanicolaou smear with manual screening 10 5-15 [facility] Work Phone: Culture, urineon 04-22-2022 Bacteria identified Cx Nom (U) Escherichia coli [facility] Work Phone: Basophil percentageon 2021 Basophil percentage 5-10 SEEN /hpf W [facility] Work Phone: Chloride [Moles/Vol] 104 mmol/L 98-107 [facility] Work Phone: Cholesterol [Mass/Vol] 194 mg/dL <200 [facility] Work Phone: Comment on above: <200 mg/dL Desirable 200-240 mg/dL Borderline >240 mg/dL High Risk Glucose [Mass/Vol] 105 mg/dL 74-106 [facility] Work Phone: Comment on above: Fasting Glucose resu lt from 100 to 125 mg/dL suggests IMPAIRED HOMEOSTASIS per A.D.A. criteria. Potassium [Moles/Vol] 4.3 mmol/L 3.5-5.1 [facility] Work Phone: Sodium [Moles/Vol] 137 mmol/L 136-145 [facility] Work Phone: Triglyceride [Mass/Vol] 191 mg/dL [facility] Work Phone: Comment on above: The drugs N-Acetylcy steine and Metamizole may falsely depress this assay.Serum Triglycerides Reference Interval Normal <150 mg/dL Borderline high 150 - 199 mg/dL High 200 - 499 mg/dL Very High > or = 500 mg/dL Bilirubin Test strip Ql (U)o n 01-26-2022 Bilirubin Ql (U) Negative Negative [facility] Work Phone: Ketones Test strip Ql (U)on 01-26-2022 Ketones Ql (U) Negative Negative [facility] Work Phone: Laboratory - Chemistry and C hemistry - challengeon 01-26-2022 CO2 [Moles/Vol] 24.0 mmol/L 21.0-32.0 [facility] Work Phone: Free T4 [Mass/Vol] 1.36 ng/dL 0.76-1.46 [facility] Work Phone: Urea nitrogen/Creatinine [Mass ratio] 13.0 mg/mg 10-20 [facility] Work Phone: Mucus LM Ql (Urine sed)on Mucus Ql (Urine sed) 0 SEEN /hpf [facility] Work Phone: Nitrite Test strip Ql (U)on 01-26-2022 Nitrite Ql (U) Negative Negative [facility] Work Phone: No Panel Informationon 01-26 Estimated GFR (MDRD) Amer 59 mL/min >60 [facility] Work Phone: Comment on above: GFR Calc Estimated GFR (MDRD) Non-Af Amer 49 mL/min >60 [facility] Work Phone: Comment on above: Non- GFR Calc Free Triiodothyronine (T3) pg/dL 1.7 pg/mL 2.18-3.98 [facility] Work Phone: Thyroid Stimulating Hormone (TSH) 3.39 uIU/mL 0.358-3.74 [facility] Work Phone: Protein Test strip Ql (U)on 01-26-2022 Protein Ql (U) 30 mg/dl Negative [facility] Work Phone: Serum or plasma calcium sandy urement (mass/volume)on 01-26-2022 Calcium [Mass/Vol] 9.5 mg/dL 8.5-10.1 [facility] Work Phone: Serum or plasma cholesterol in HDL measurement (mass/volume)on 01-26-2022 Cholesterol in HDL [Mass/Vol] 33 mg/dL [facility] Work Phone: Comment on above: The drugs N-Acetylcy steine and Metamizole may falsely depress this assay. Reference Range HDL <40 mg/dL Low HDL Cholesterol HDL >or= 60 mg/dL High HDL Cholesterol Serum or plasma cholesterol in VLDL measurement (mass/volume)on 01-26-2022 Cholesterol in VLDL [Mass/Vol] 38 mg/dL 5-40 [facility] Work Phone: Serum or plasma [...] LDL [Mass/Vol] 123 mg/dL 0-130 [facility] Work Phone: Serum or plasma urea nitroge n measurement (mass/volume)on 01-26-2022 Urea nitrogen [Mass/Vol] 16 mg/dL 7-18 [facility] Work Phone: Squamous epithelial cells de tection in urine sediment by light microscopyon 01-26-2022 Epithelial cells.squamous LM Ql (Urine sed) 5-10 SEEN [facility]hpf [facility] [facility] Work Phone: Thin prep Papanicolaou smear with manual screeningon 01-26-2022 Thin prep Papanicolaou smear with manual screening 9 5-15 [facility] Work Phone: Urine blood detectionon 01-13 RBC Ql (U) Negative Negative [facility] Work Phone: RBC Ql (U) 0 SEEN /hpf [facility] Work Phone: Urine clarityon 01-26-2022 Clarity (U) Clear Clear [facility] Work Phone: Urine color determinationon 01-26-2022 Color (U) Yellow Yellow [facility] Work Phone: Urine glucose detectionon Glucose Ql (U) Normal mg/dl Normal [facility] Work Phone: Urine leukocyte esterase det ection by dipstickon 01-26-2022 Leukocyte esterase Test strip Ql (U) 500 /ul Negative [facility] Work Phone: Urine pHon 01-26-2022 pH (U) 6.0 [pH] [facility] Work Phone: Urine sediment bacteria coun t by microscopy (number/high power field)on 01-26-2022 Bacteria LM.HPF (Urine sed) [#/Area] 0 /[HPF] None Seen [facility] Work Phone: Urine specific gravity measu rementon 01-26-2022 Specific gravity (U) [Rel density] 1.015 [facility] Work Phone: Urobilinogen Auto test strip Ql (U)on 01-26-2022 Urobilinogen Ql (U) Normal mg/dl Normal [facility] Work Phone: Culture, urine Bacteria identified Cx Nom (U) Escherichia coli [facility] Work Phone: Vital Signs Date Time Vital Sign Value Performing Clinician Faci lity 09-03-2025 15:15-0400 Body temperature 97.4 [degF] Dr. Red Perez MD Work Phone: [facility] 09-03-2025 15:15-0400 Diastolic blood pressure 86 mm[Hg] Dr. Red Perez MD Work Phone: [facility] 09-03-2025 15:15-0400 Heart rate 111 /min Dr. Red Perez MD Work Phone: [facility] 09-03-2025 15:15-0400 Respiratory rate 15 /min Dr. Red Perez MD Work Phone: [facility] 09-03-2025 15:15-0400 SaO2% (BldA) [Mass fraction] 99 % Dr. Red Perez MD Work Phone: 4(690)505-288130 [place] [address] 09-03-2025 15:15-0400 Systolic blood pressure 139 mm[Hg] Dr. Red Perez MD Work Phone: 5(173)164-692122 [place] [address] 08-31-2025 14:14-0400 Body height 167.[address] Red Perez MD Work Phone: 9(737)552-592122 [place] [address] 08-31-2025 14:14-0400 Body weight [address] Red Perez MD Work Phone: 6(849)366-122322 [place] [address] 08-31-2025 13:27-0400 Body mass index (BMI) [Ratio] 33.4 kg/m2 Dr. Red Perez MD Work Phone: 2(871)152-871522 [place] [address] 08-27-2025 11:22-0400 Body mass index (BMI) [Ratio] 36.1 kg/m2 Dr. Red Perez MD Work Phone: 2(265)599-875222 [place] [address] 08-27-2025 11:22-0400 Body temperature 97 [degF] Dr. Red Perez MD Work Phone: 2(081)425-688222 [place] [address] 08-27-2025 11:22-0400 Body weight 101.[address] Red Perez MD Work Phone: 3(094)520-134522 [place] [address] 08-27-2025 11:22-0400 Diastolic blood pressure 72 mm[Hg] Dr. Red Perez MD Work Phone: 1(372)162-630122 [place] [address] 08-27-2025 11:22-0400 Heart rate 82 /min Dr. Red Perez MD Work Phone: 0(408)377-664822 [place] [address] 08-27-2025 11:22-0400 Respiratory rate 18 /min Dr. Red Perez MD Work Phone: 8(256)361-463422 [place] [address] 08-27-2025 11:22-0400 SaO2% (BldA) [Mass fraction] 99 % Dr. Red Perez MD Work Phone: 7(486)378-408122 [place] [address] 08-27-2025 11:22-0400 Systolic blood pressure 98 mm[Hg] Dr. Red Perez MD Work Phone: 3(316)826-596722 [place] [address] 06-04-2025 11:10-0400 Body height 167.[address] Red Perez MD Work Phone: 7(757)389-762222 [place] [address] 06-04-2025 11:10-0400 Body mass index (BMI) [Ratio] 43.4 kg/m2 Dr. Red Perez MD Work Phone: 8(722)197-513322 [place] [address] 06-04-2025 11:10-0400 Body temperature 97.6 [degF] Dr. Red Perez MD Work Phone: 8(126)955-597222 [place] [address] 06-04-2025 11:10-0400 Body weight 122.[address] Red Perez MD Work Phone: 7(790)881-688322 [place] [address] 06-04-2025 11:10-0400 Diastolic blood pressure 71 mm[Hg] Dr. Red Perez MD Work Phone: 5(823)958-646822 [place] [address] 06-04-2025 11:10-0400 Heart rate 78 /min Dr. Red Perez MD Work Phone: 7(620)764-469022 [place] [address] 06-04-2025 11:10-0400 Respiratory rate 18 /min Dr. Red Perez MD Work Phone: 7(082)331-923622 [place] [address] 06-04-2025 11:10-0400 SaO2% (BldA) [Mass fraction] 96 % Dr. Red Perez MD Work Phone: 6(891)032-976022 [place] [address] 06-04-2025 11:10-0400 Systolic blood pressure 121 mm[Hg] Dr. Red Perez MD Work Phone: 3(866)952-194322 [place] [address] 05-07-2025 08:27-0400 Body height 167.[address] Red Perez MD Work Phone: 7(085)630-170022 [place] [address] 05-07-2025 08:27-0400 Body mass index (BMI) [Ratio] 43.5 kg/m2 Dr. Red Perez MD Work Phone: 7(466)646-241222 [place] [address] 05-07-2025 08:27-0400 Body temperature 98 [degF] Dr. Red Perez MD Work Phone: 5(429)316-299022 [place] [address] 05-07-2025 08:27-0400 Body weight 122.[address] Red Perez MD Work Phone: 8(506)093-312222 [place] [address] 05-07-2025 08:27-0400 Diastolic blood pressure 82 mm[Hg] Dr. Red Perez MD Work Phone: 6(404)420-062022 [place] [address] 05-07-2025 08:27-0400 Heart rate 75 /min Dr. Red Perez MD Work Phone: 5(227)476-169422 [place] [address] 05-07-2025 08:27-0400 Respiratory rate 18 /min Dr. Red Perez MD Work Phone: 4(415)793-287722 [place] [address] 05-07-2025 08:27-0400 SaO2% (BldA) [Mass fraction] 96 % Dr. Red Perez MD Work Phone: 4(239)225-698222 [place] [address] 05-07-2025 08:27-0400 Systolic blood pressure 132 mm[Hg] Dr. Red Perez MD Work Phone: 7(801)462-595722 [place] [address] 03-29-2025 10:18-0400 Diastolic blood pressure 51 mm[Hg] Dr. Red Perez MD Work Phone: 6(434)182-769422 [place] [address] 03-29-2025 10:18-0400 Heart rate 79 /min Dr. Red Perez MD Work Phone: 3(869)970-705022 [place] [address] 03-29-2025 10:18-0400 Respiratory rate 16 /min Dr. Red Perez MD Work Phone: 6(976)941-289322 [place] [address] 03-29-2025 10:18-0400 SaO2% (BldA) [Mass fraction] 97 % Dr. Rde Perez MD Work Phone: 9(204)556-909022 [place] [address] 03-29-2025 10:18-0400 Systolic blood pressure 114 mm[Hg] Dr. Red Perez MD Work Phone: 0(482)096-769822 [place] [address] 03-29-2025 08:03-0400 Body height 167.[address] Red Perez MD Work Phone: 4(028)269-881022 [place] [address] 03-29-2025 08:03-0400 Body mass index (BMI) [Ratio] 43.5 kg/m2 Dr. Red Perez MD Work Phone: [facility] 03-29-2025 08:03-0400 Body temperature 96.4 [degF] Dr. Red Perez MD Work Phone: [facility] 03-29-2025 08:03-0400 Body weight 122.[address] Red Perez MD Work Phone: 0(004)149-903430 [place] [address] 03-08-2025 08:22-0400 Body mass index (BMI) [Ratio] 44.7 kg/m2 Dr. Red Perez MD Work Phone: 1(343)718-212122 [place] [address] 03-08-2025 08:22-0400 Body temperature 98.3 [degF] Dr. Red Perez MD Work Phone: 1(861)353-899922 [place] [address] 03-08-2025 08:22-0400 Body weight 125.[address] Red Perez MD Work Phone: 5(043)181-377830 [place] [address] 03-08-2025 08:22-0400 Diastolic blood pressure 74 mm[Hg] Dr. Red Perez MD Work Phone: 0(282)427-189722 [place] [address] 03-08-2025 08:22-0400 Heart rate 78 /min Dr. Red Perez MD Work Phone: 6(328)104-803022 [place] [address] 03-08-2025 08:22-0400 Respiratory rate 18 /min Dr. Red Perez MD Work Phone: 7(648)102-180430 [place] [address] 03-08-2025 08:22-0400 SaO2% (BldA) [Mass fraction] 97 % Dr. Red Perez MD Work Phone: 5(069)033-380230 [place] [address] 03-08-2025 08:22-0400 Systolic blood pressure 113 mm[Hg] Dr. Red Perez MD Work Phone: 6(756)087-406232 [address] 12-01-2022 10:40-0500 Body temperature 96.9 [degF] Dr. Red Perez Work Phone: 9(165)846-903830 [place] [address] 12-01-2022 10:40-0500 Diastolic blood pressure 64 mm[Hg] Dr. Red Perez Work Phone: [facility] 12-01-2022 10:40-0500 Heart rate 62 /min Dr. Red Perez Work Phone: [facility] 12-01-2022 10:40-0500 Respiratory rate 16 /min Dr. Red Perez Work Phone: [facility] 12-01-2022 10:40-0500 SaO2% (BldA) [Mass fraction] 96 % Dr. Red Perez Work Phone: [facility] 12-01-2022 10:40-0500 Systolic blood pressure 106 mm[Hg] Dr. Red Perez Work Phone: [facility] 12-01-2022 09:27-0500 Body height 167.[address] Red Perez Work Phone: [facility] 12-01-2022 09:27-0500 Body mass index (BMI) [Ratio] 36.3 kg/m2 Dr. Red Perez Work Phone: [facility] 12-01-2022 09:27-0500 Body weight [address] Red Perez Work Phone: [facility] 11-10-2022 16:24-0500 Body mass index (BMI) [Ratio] 37.1 kg/m2 Dr. Red Perez Work Phone: [facility] 11-10-2022 16:24-0500 Body weight 104.[address] Red Perez Work Phone: [facility] Encounters Encounter Date Encounter Type Care Provider Facility Start: 09-24-2025 ambulatory Glen Chapman Facility:[facility] Start: 09-17-2025 Encounter for other preprocedural examination Cynthia SNOW [facility] Start: 09-14-2025 End: 09-14-2025 ambulatory Red Perez Facility:[facility] Start: 09-11-2025 End: 09-11-2025 ambulatory JEM JAVIER [facility] Start: 09-07-2025 End: 09-07-2025 ambulatory [facility] Facility:[facility] Start: 09-03-2025 Dr. Jacques Muñoz [facility] Work Phone: Start: 09-02-2025 Dr. Frantz maki [facility] Work Phone: Start: 09-01-2025 Dr. Frantz maki [facility] Work Phone: Start: 08-31-2025 Dr. Frantz maki [facility] Work Phone: Start: 08-31-2025 ambulatory Memo Valdez Facil ity:[facility] Start: 08-31-2025 End: 09-03-2025 Evaluation and management of inpatient Dr. Red Perez MD Work Phone: -Medical Surgical 3 Start: 08-31-2025 End: 09-03-2025 Dr. Jacques Muñoz [facility] Work Phone: Start: 08-30-2025 Dr. Glen Chapman MD -[facility] Start: 08-30-2025 ambulatory Red Perez Facility:[facility] Start: 08-27-2025 End: 08-27-[address] Glen Chapman MD -[facility] Work Phone: Start: 08-27-2025 End: 08-27-2025 Dr. Glen Chapman MD -[facility] Work Phone: Start: 08-27-2025 End: 08-27-[address] Red Perez MD Work Phone: -[facility] Start: 08-22-2025 End: 08-22-[address] Red Perez MD -[facility] Work Phone: Start: 08-22-2025 End: 08-22-2025 Dr. Red Perez MD -[facility] Work Phone: Start: 08-22-2025 End: 08-22-2025 ambulatory Red Perez Facility:[facility] Start: 08-17-2025 End: 08-17-[address] Red Perez MD -[facility] Start: 08-17-2025 End: 08-17-2025 Dr. Red Perez MD -[facility] Start: 08-17-2025 End: 08-17-2025 ambulatory Red Perez Facility:[facility] Start: 08-13-2025 End: 08-13-[address] Red Perez MD Work Phone: -Radiology [facility] Start: 08-13-2025 End: 08-13-[address] Nikolai Kim MD -Radiology [facility] Work Phone: Start: 08-13-2025 End: 08-13-2025 Dr. Nikolai Kim MD -Radiology [facility] Work Phone: Start: 08-13-2025 End: 08-13-2025 ambulatory Nikolai Kim Facility:[facility] Start: 06-27-2025 End: 06-27-[address] Red Perez MD Work Phone: -[facility] Start: 06-27-2025 End: 06-27-[address] Red Perez MD -[facility] Start: 06-27-2025 End: 06-27-2025 Dr. Red Perez MD -[facility] Start: 06-27-2025 End: 06-27-2025 ambulatory Red Perez Facility:[facility] Start: 06-15-2025 End: 06-15-[address] Red Perez MD Work Phone: -[facility] Start: 06-15-2025 End: 06-15-[address] Nikolai Kim MD -[facility] Work Phone: Start: 06-15-2025 End: 06-15-2025 Dr. Nikolai Kim MD -Radiology [facility] Work Phone: Start: 06-15-2025 End: 06-15-2025 ambulatory Nikolai Kim Facility:[facility] Start: 06-04-[address] Glen Chapman MD -[facility] Start: 06-04-2025 End: 06-04-[address] Glen Chapman MD -[facility] Work Phone: Start: 06-04-2025 End: 06-04-2025 Dr. Glen Chapman MD -[facility] Work Phone: Start: 06-04-2025 End: 06-04-[address] Red Perez MD Work Phone: [facility] Start: 05-07-2025 End: 05-07-[address] Glen Chapman MD -[facility] Work Phone: Start: 05-07-2025 End: 05-07-2025 ambulatory Glen Chapman Facility:[facility] Start: 05-07-[address] Glen Chapman MD -[facility] Start: 04-17-2025 ambulatory John Damian Facility:[facility] Start: 04-17-2025 Non-patient / Non-visit Dr. John real MD -[facility] Start: 04-17-2025 End: 04-17-[address] Red Perez MD Work Phone: [facility] Work Phone: Start: 04-17-2025 End: 04-17-[address] Red Perez MD -Cardiovascular Services Work Phone: Start: 04-17-2025 End: 04-17-2025 ambulatory Red Perez Facility:[facility] Start: 03-29-2025 End: 03-29-[address] Red Peerz MD Work Phone: [facility] Work Phone: Start: 03-29-2025 End: 03-29-[address] Red Perez MD -[facility] Start: 03-29-[address] Glen Chapman MD -[facility] Start: 03-29-2025 End: 03-29-2025 ambulatory Red Perez Facility:[facility] Start: 03-08-2025 End: 03-08-[address] Glen Chapman MD -[facility] Work Phone: Start: 03-08-2025 End: 03-08-2025 ambulatory Red Perez Facility:[facility] Start: 03-05-2025 Non-patient / Non-visit Yamila Cohen si [facility] -[facility] Work Phone: Start: 03-05-2025 ambulatory Red Perez Facility:[facility] Start: 03-05-2025 End: 03-05-[address] [facility] Start: 03-05-2025 End: 03-05-2025 ambulatory Red Perez Facility:[facility] Start: 03-01-2025 End: 03-01-[address] Red Perez MD Work Phone: [facility] Work Phone: Start: 03-01-2025 End: 03-01-[address] [facility] Start: 03-01-2025 End: 03-01-2025 ambulatory Red Perez Facility:[facility] Start: 10-08-2024 End: 10-08-2024 ambulatory Red Perez Facility:[facility] Start: 02-07-2024 End: 02-07-2024 ambulatory [facility] Work Phone: Start: 02-07-2024 End: 02-07-2024 Patient encounter procedure [facility]-Laboratory, Specimen Work Phone: Start: 01-19-2024 End: 01-19-2024 ambulatory [facility] Work Phone: Start: 01-19-2024 End: 01-19-2024 Patient encounter procedure [facility] Start: 07-26-2023 End: 07-26-2023 ambulatory [facility] Work Phone: Start: 07-26-2023 End: 07-26-2023 Patient encounter procedure [facility] Start: 01-25-2023 End: 01-25-[address] Red Perez Work Phone: [facility] Work Phone: Start: 01-25-2023 End: 01-25-[address] Red Perez Work Phone: [facility] Start: 12-01-2022 Non-patient / Non-visit Dr. Edy Perez Work Phone: [facility] Start: 12-01-2022 End: 12-01-2022 Admission to same day surgery center Dr. Red Perez Work Phone: [facility]-Endoscopy Start: 12-01-2022 End: 12-01-[address] Red Perez Work Phone: [facility] Work Phone: Start: 11-10-2022 Non-patient / Non-visit Dr. Edy Perez Work Phone: [facility] Start: 07-27-2022 End: 07-27-2022 ambulatory [facility] Work Phone: Start: 07-27-2022 End: 07-27-2022 Patient encounter procedure [facility] Start: 06-26-2022 End: 06-26-2022 [facility] Start: 04-22-2022 End: 04-22-2022 [facility] Start: 01-26-2022 End: 01-26-2022 Patient encounter procedure [facility] Procedures Date Procedure Procedure Detail Performing Clinician [...] Work Phone: Comment on above: Test Ordered: [id number] ANIRUDH, IFA Rfx 9 Frantz MultiplexANA by [...] may be detected byANA IFA methodology.Performed at: [address] [id number] Director: Preston Ashley PhD, Phone: [phone] Start: 08-27-2025 Total iron binding c apacity [...] Work Phone: Comment on above: Performed at: [address] [id number] Director: Preston Ashley PhD, Phone: [phone] Start: 12-01-[address] Red cool Work Phone: Start: 04-22-2022 Urine culture Urine culture Plan of Treatment Date Care Activity Detail Author Start: 09-14-2025 End: [facility]-14-2025 [facility] Start: 09-07-2025 Patient encounter procedure Registered Clinical -[facility] Work Phone: Start: 09-07-2025 End: 09-07-2025 -[facility] Work Phone: Start: 09-03-2025 Patient discharge [facility] Start: 09-03-2025 Non-patient / Non-visit Non-patient / [facility] Work Phone: Start: 09-02-2025 Non-patient / Non-visit Non-patient / Non-visit [facility] Work Phone: Start: 09-01-2025 Non-patient / Non-visit Non-patient / Non-visit [facility] Work Phone: Start: 09-01-2025 [facility] Start: 08-31-2025 Non-patient / Non-visit Non-patient / Non-visit [facility] Work Phone: Start: 08-31-2025 Referral to interior design faculty member [facility] Start: 08-31-2025 Following clinical pathway protocol [facility] Start: 08-31-2025 Assessment of risk of venous thromboembolism [facility] Start: 08-31-2025 Care regimes management [facility] Start: 08-31-2025 Insertion of catheter into peripheral vein [facility] Start: 08-31-2025 Notification of physician [facility] Start: 08-31-2025 Providing care according to standard [facility] Start: 08-31-2025 Provision of activity privileges [facility] Start: 08-31-2025 Referral for physical therapy [facility] Start: 08-31-2025 Referral to occupational therapist [facility] Start: 08-31-2025 End: 08-31-2025 [facility] Start: 08-31-2025 Us retroperitoneal real time w/image complete Kidney and Bladder [facility] Start: 08-31-2025 Admission procedure [facility] Start: 08-31-2025 End: 09-03-2025 Evaluation and management of inpatient Acute hyponatremia -Medical Surgical 3 Work Phone: Start: 08-31-2025 Radex ankle complete minimum 3 views Ankle min 3 Views [facility] Start: 08-31-2025 CT of head without contrast Brain/Head without Contrast [facility] Start: 08-31-2025 Plain chest X-ray Chest 1 View [facility] Start: 08-31-2025 [facility] Start: 08-31-2025 Patient referral to dietitian [facility] Start: 08-30-2025 Registered Recurring Registered Recurring -[facility] Start: 08-30-2025 Measurement of occult blood in stool specimen using immunoassay Stool Occult Blood (KIRK) [facility] Start: 08-27-2025 Serum inorganic phosphate measurement [facility] Start: 08-24-2025 Lactate dehydrogenase measurement [facility] Start: 08-24-2025 Serum inorganic phosphate measurement [facility] Start: 08-24-2025 Vitamin B12 measurement [facility] Start: 06-04-2025 [facility] Start: 05-07-2025 [facility] Start: 03-08-2025 Patient referral [facility] Work Phone: Start: 12-01-2022 Colonoscopy flx dx w/collj spec when pfrmd DIAGNOSTIC COLONOSCOPY [facility] Start: 12-01-2022 Patient discharge [facility] C reactive protein [Mass/volume] in Serum or Plasma [facility] C reactive protein [Mass/volume] in Serum or Plasma [facility] CBC W Auto Different ial panel - Blood [facility] CBC W Auto Different ial panel - Blood [facility] CBC W Auto Different ial panel - Blood [facility] Cobalamin (Vitamin B 12) [Mass/volume] in Serum or Plasma [facility] Cobalamin (Vitamin B 12) [Mass/volume] in Serum or Plasma [facility] Colonoscopy [facility] Comprehensive metabo lic 1999 panel - Serum or Plasma [facility] Comprehensive metabo lic 1999 panel - Serum or Plasma [facility] Erythrocyte sediment ation rate [facility] Erythrocyte sediment ation rate [facility] Ferritin [Mass/volum e] in Serum or Plasma [facility] Ferritin [Mass/volum e] in Serum or Plasma [facility] Ferritin [Mass/volum e] in Serum or Plasma [facility] Folate [Moles/volume ] in Serum or Plasma [facility] Folate [Moles/volume ] in Serum or Plasma [facility] Folate [Moles/volume ] in Serum or Plasma [facility] Iron and Iron bindin g capacity panel - Serum or Plasma [facility] Iron and Iron bindin g capacity panel - Serum or Plasma [facility] Iron and Iron bindin g capacity panel - Serum or Plasma [facility] Lactate dehydrogenas e measurement [facility] Lactate dehydrogenas e measurement [facility] Lactate dehydrogenas e measurement [facility] Liver stiffness by US.transient elastography [facility] Magnesium measurement [facility] Magnesium measurement [facility] Magnesium measurement [facility] Patient referral [facility] Work Phone: Serum inorganic phos phate measurement [facility] Serum inorganic phos phate measurement [facility] Serum inorganic phos phate measurement [facility] Vitamin B12 measurement [facility] Payers Date Payer Category Payer Private Health Insurance [id number] 2024 Private Health Insurance 100 [id number] 2024 Self-pay [id number] 1972 Unknown [id number] 2.16.8 40.1.290258.3.579.2.651 Unknown [id number] Unknown [id number] 2.16.8 40.1.542322.3.579.2.462 Unknown [id number] 2.16.8 40.1.681921.3.579.2.462 Unknown [id number] 2.16.8 40.1.807316.3.579.2.462 Unknown [id number] 2.16.8 40.1.454335.3.579.2.462 Unknown [id number] 2.16.8 40.1.376023.3.579.2.462 Unknown [id number] 2.16.8 40.1.242730.3.579.2.462 Unknown [id number] 2.16.8 40.1.265700.3.579.2.462 Unknown [id number] 2.16.8 40.1.284342.3.579.2.462 Unknown [id number] 2.16.8 40.1.842833.3.579.2.462 Unknown [id number] 2.16.8 40.1.587563.3.579.2.462 Unknown [id number] 2.16.8 40.1.746073.3.579.2.462 Unknown [id number] 2.16.8 40.1.643726.3.579.2.462 Unknown [id number] 2.16.8 40.1.782488.3.579.2.462 Unknown [id number] 2.16.8 40.1.884263.3.579.2.462 Unknown [id number] 2.16.8 40.1.931062.3.579.2.462 Unknown [id number] 2.16.8 40.1.064010.3.579.2.462 Unknown [id number] 2.16.8 40.1.726583.3.579.2.462 Unknown [id number] 2.16.8 40.1.382334.3.579.2.462 Unknown [id number] 2.16.8 40.1.949561.3.579.2.462 Unknown [id number] 2.16.8 40.1.917181.3.579.2.462 Unknown [id number] 2.16.8 40.1.431442.3.579.2.462 Unknown [id number] 2.16.8 40.1.682445.3.579.2.462 Unknown [id number] 2.16.8 40.1.341879.3.579.2.462 Unknown [id number] 2.16.8 40.1.944742.3.579.2.462 Unknown [id number] 2.16.8 40.1.461987.3.579.2.462 Social History Date Type Detail Facility Tobacco smoking status NHIS Unknown if ever smoked [facility] Work Phone: Start: 1970 Sex Assigned At Female [facility] Start: 12-01-2022 End: 12-01-2022 Tobacco smoking status NHIS Unknown if ever smoked [facility] Start: 03-05-2025 End: 08-31-2025 Tobacco smoking status NHIS Ex-smoker (finding) [facility] Start: 03-06-2025 Sex Female (finding) [facility] Sex [facility] NEGATED: Highlighted row [facility] Goals Date Patient Goal Desired Activity /State Functional Status Date Assessment Result Facility 09-03-2025 Functional status Ambulates [facility] Work Phone: Mental Status Date Assessment Result Facility 09-03-2025 Cognitive function [facility] Work Phone: 09-03-2025 Cognitive function Voice/Name [facility] Medical Services Work Phone: 03-29-2025 Cognitive function Awake;Alert;A ppropriate;Foll ows Commands [facility] Work Phone: 03-15-2025 Cognitive function Voice/Name [facility] Work Phone: 12-01-2022 Cognitive function Voice/Name [facility] Work Phone: Clinical Notes 12-01-2022 to 09-03-2025 Note Date & Type Note Facility 09-03-2025 Discharge summary Note Date/Time September 03, 2025 2:02pm [facility] Medical Records Department [address] [place] [address] Instructions for Home/Discharge Instructions 09/03/25 1228 MR#: [id number] Acct: [id number] Name: HEIDI ANDREWS Rep #:[id number] : 1970 55 From: Jacques hernandez DO [...] Profile (BMP) (Routine) Timeframe: 3 Days Facility: [facility] - Location: Laboratory Ordered By: Dr. Jacques [...] DO; Dr. Red Perez MD ~ Signed [facility] Work Phone: 1(773) 939-884110-20-2025 Consult note Author Channing Parker [facility] Note Date/Time September 03, 2025 2 :56pm [facility] Medical Records Department [address] [place] [address] Counseling Note - Pharmacy 09/03/25 1355 MR#: [id number] Acct: [id number] Name: HEIDI ANDREWS Rep #:[id number] : 1970 55 From: Channing Parker PCP: Dr. Red Perez MD Status:ADM I N Y Location: [place] [address] Pharmacy MD Med Rec Counseling Pharmacy Service has performed [...] Signature (if applicable): Date CC: ~ Signed [facility] Work Phone: 1(343) 808-142010-20-2025 Discharge summary Author [facility] Note Date/Time September 03, 2025 4 :34pm [facility] Medical Records Department [address] [place] [address] Discharge Summary 09/03/25 1229 MR#: [id number] Acct: [id number] Name: HEIDI ANDREWS Rep #:[id number] : 1970 55 From: Jacques Arango [facility] PCP: Dr. Red Perez MD Status:DIS I N Location: [place] [address] Providers Date of Admission: 08/31/25 Date of [...] is a 55-year-old female who presented to [facility] ED on 08/31/2025 with syncope and right [...] 08/31/25 14:36 SB (Rec: 08/31/25 14:36 SB [id number]) Nutrition Malnutrition Evidence of Yes Malnutrition Exists [...] Profile (BMP) (Routine) Timeframe: 3 Days Facility: [facility] - Location: Laboratory Ordered By: Dr. Jacques [...] Self Care Charges/Coding Visit Charges Inpatient E&M: 36224 Disch Hosp >30min 09/06/25 1040 <Electronically signed by Jacques Muñoz DO> Cosigner Signature (if applicable): CC: Dr. Jacques Muñoz DO; Dr. Red Perez MD~ Signed [facility] Work Phone: 1(242) 177-579410-20-2025 Hospital Discharge instructionsAdditional Instructions Please take the [...] 1 to 2 weeks. Date of Discharge: 09/03/25[facility] Work Phone: 1(814) 899-308710-20-2025 [facility] Medical Records Department [address] [place] [address] Discharge Summary 09/03/25 1229 MR#: [id number] Acct: [id number] Name: HEIID ANDREWS David Rep #: [id number] : 1970 55 From: Jacques Muñoz DO PCP: Dr. Red Perez MD Status:DIS IN Location: SD3 CF654-1 Providers Date of Admission: 08/31/25 Date of [...] is a 55-year-old female who presented to [facility] ED on 08/31/2025 with syncope and right [...] started on Ozempic (more content not included)... [facility]10-19-2025 Progress note Author Frantz Gunderson [facility] Note Date/Time September 02, 2025 1 :43pm [facility] Medical Records Department [address] [place] [address] Progress Note - Hospitalist 09/02/25 1230 MR#: [id number] Acct: [id number] Name: HEIDI ANDREWS Rep #:[id number] : 1970 55 From: Frantz Gunderson DO PCP: Dr. Red Perez MD Status:ADM I N Location: [place] [address] Reason for Visit Chief Complaint: Syncope, right [...] 08/31/25 14:36 SB (Rec: 08/31/25 14:36 SB [id number]) Nutrition Malnutrition Evidence of Yes Malnutrition Exists [...] 35 minutes Charges/Coding Visit Charges Inpatient E&M: 06618 Subs Hosp L2 09/02/25 1243 <Electronically signed by Frantz Gunderson DO> Cosigner Signature (if applicable): CC: ~ Signed [facility] Work Phone: 1(149) 890-312110-19-2025 Discharge summary Author Frantz Gunderson [facility] Note Date/Time September 02, 2025 1 :24pm [facility] Medical Records Department [address] [place] [address] Instructions for Home/Discharge Instructions 09/02/25 1217 MR#: [id number] Acct: [id number] Name: HEIDI ANDREWS Rep #:[id number] : 1970 55 From: Frantz Gunderson DO [...] MD; Dr. Red Perez MD ~ Signed [facility] Work Phone: 1(250) 692-879310-18-2025 Progress note Author Frantz [facility]. [facility] Note Date/Time September 01, 2025 8 :37pm [facility] Medical Records Department [address] [place] [address] Progress Note - Hospitalist 09/01/251934 MR#: [id number] Acct: [id number] Name: HEIDI ANDREWS Rep #:[id number] : 1970 55 From: Frantz Gunderson DO PCP: Dr. Red Perez MD Status:ADM I N Location: [address] Reason for Visit Chief Complaint: Syncope, right [...] 08/31/25 14:36 SB (Rec: 08/31/25 14:36 SB [id number]) Nutrition Malnutrition Evidence of Yes Malnutrition Exists [...] 35 minutes Charges/Coding Visit Charges Inpatient E&M: 42513 Subs Hosp L2 09/01/251936 <Electronically signed by Frantz Gunderson DO> Cosigner Signature (if applicable): CC: ~ Signed [facility] Work Phone: 1(684) 772-341410-18-2025 Consult note Author Memo Valdez [facility] Note Date/Time September 01, 2025 5 :56pm [facility] Medical Records Department [address] [place] [address] Consultation - Nephrology 09/01/25 1652 MR#: [id number] Acct: [id number] Name: HEIDI ANDREWS Rep #:[id number] : 1970 55 From: Memo carlton MD PCP: Dr. Red Perez MD Status:ADM I N Location: [address] Assessment & Plan Assessment/Plan (1) JESI [...] increased. currently on IV fluids. no hematuria. 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 Reading Location: [facility] 09/01/25 0981 <Electronically signed by Memo Valdez MD> Cosigner Signature (if applicable): CC: Dr. Red Perez MD~ Signed [facility] Work Phone: 1([phone]) 803-116610-18-2025 History and physical note Author Frantz [facility] Note Date/Time September 01, 2025 1 :18pm [facility] Medical Records Department [address] [place] [address] H&P Exam - Hospitalist 08/31/25 1849 MR#: [id number] Acct: [id number] Name: HEIDI ANDREWS Rep #:[id number] : 1970 55 From: Frantz Gunderson DO PCP: Dr. Red Perez MD Status:ADM I N [facility] [facility] [place] HPI - General General Date of Admission: 08/31/25 Date of Service: 08/31/25 Chief Complaint: Syncope, right ankle injury HPI Narrative HEIDI ANDREWS, is a 55 F who presents to the emergency room at [facility] after sustaining a syncopal episode at home [...] of metformin with a backdrop of starvation. [facility] Medical History (Updated 08/31/25 @ 13:40 by [...] Unknown History mg/3 mL) subcutaneous pen injector ([employer]) Held on 08/31/25. Instructions: skipped this week [...] spouse current occupational status: employed current occupation: [employer] Smoking Status: Former smoker alcohol intake: never [...] 08/31/25 14:36 SB (Rec: 08/31/25 14:36 SB [id number]) Nutrition Malnutrition Evidence of Yes Malnutrition Exists [...] 72.5 H, Lymph % (Auto) 16.0 L, [place] % (Auto) 6.7, Eos % (Auto) 3.0, [...] Sl. Cloudy, Urine pH 5.0, Ur Specific Nelson 1.025, Urine Protein 100 H, Urine Glucose [...] No acute abnormality is seen. Reading Location[facility] 08/31/25 10:30 IMPRESSION: Cerebral atrophy more pronounced in the anterior frontal lobes bilaterally as well as in the Reading Location: [facility] Ankle X-Ray 08/31/25 10:35 IMPRESSION: Nondisplaced oblique fracture of the lateral malleolus as well as avulsion fracture of the posterior malleolus. Mild asymmetry of the ankle mortise as well as soft tissue swelling. Reading Location[facility] Renal Ultrasound 08/31/25 13:05 IMPRESSION: NORMAL RENAL ULTRASOUND. Reading Location: [facility] Assessment & Plan Assessment/Plan (1) JESI (acute kidney injury): PLAN: Plan 1. Acute kidney injury-secondary to dehydration and use of diuretics for hypertension, also due to emesis from Ozempic-patient will be admitted to [facility] 3 and given IV fluids, nephrology [...] 75 minutes Charges/Coding Visit Charges Inpatient E&M: 47857 Subs Hosp L2 09/01/25 1218 <Electronically signed by Frantz Gunderson DO> Cosigner Signature (if applicable): CC: Dr. Frantz Gunderson DO; Dr. Red Perez MD~ Signed ADDENDUM by Dr. Frantz Gunderson DO on 09/01/25 at 1218 Visit Charges Inpatient E&M: 79879 Init Hosp L3 09/01/258<Electronically signed by Frantz Gunderson DO> Cosigner Signature (if applicable): cc: Dr. Frantz Gunderson DO; Dr. Red Perez MD ~* Signed [facility] Work Phone: 1(655) 558-586810-17-2025 Discharge summary Author Berlin Gomezehne [facility] Note Date/Time August 31, 2025 5 :35pm [facility] Medical Records Department [address] [place] [address] Emergency Department Summary 08/31/25 MR#: [id number] Acct: [id number] Name: HEIDI ANDREWS Rep #:[id number] : 1970 55 From: Berlin Colon PCP: Dr. Red Perez MD Status:ADM I N Location: [place] [address] HPI History of Present Illness Chief Complaint: [...] uncommon for her since beginning iron supplementation. [facility] Medical History (Updated 08/31/25 @ 13:40 [...] Unknown History mg/3 mL) subcutaneous pen injector ([employer]) Held on 08/31/25. 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 Neurovascular intact pre and post [...] 72.5 H Lymph % (Auto) 16.0 L [place] % (Auto) 6.7 Eos % (Auto) 3.0 [...] Sl. Cloudy Urine pH 5.0 Ur Specific Nelson 1.025 Urine Protein 100 H Urine Glucose [...] (Auto) Neut % (Auto) Lymph % (Auto) [place] % (Auto) Eos % (Auto) Baso % [...] Color Urine Clarity Urine pH Ur Specific Nelson Urine Protein Urine Glucose (UA) Urine Ketones Urine Occult Blood Urine Nitrite Urine Bilirubin Urine Urobilinogen Ur Leukocyte Esterase Urine RBC Urine WBC Ur Squamous Epith Cells Amorphous Sediment Urine Bacteria Urine Mucus Radiography Diagnostic Testing: Clinical Impression(s) from Imaging Studies Chest X-Ray 08/31/25 10:12 IMPRESSION: Stable examination. No acute abnormality is seen. Reading [facility] 08/31/25 10:30 IMPRESSION: Cerebral atrophy more pronounced in the anterior frontal lobes bilaterally as well as in the Reading Location: [facility] Ankle X-Ray 08/31/25 10:35 IMPRESSION: Nondisplaced oblique fracture of the lateral malleolus as well as avulsion fracture of the posterior malleolus. Mild asymmetry of the ankle mortise as well as soft tissue swelling. Reading Location: [place] [address] EKG Initial EKG: Attestation: I personally reviewed and interpreted this EKG as follows: Comments: Normal sinus rhythm ventricular rate of 72 bpm. Management Discussion w/another healthcare provider: Hospitalist, Manager Wound (Dr. Prakash (orthopedics)) and Radiologist Discharge Plan Dx/Rx/DC Orders Clinical Impression: Iron deficiency anemia, Syncope, Ankle fracture, right, Hematoma of occipital region of scalp, JESI (acute kidney injury), Acute hyponatremia, Elevated lactic acid level Disposition Disposition: [facility] Discharge Date/Time: 08/31/25 13:17 What to do if you have Problems For any increased pain, shortness of breath, bleeding, nausea or vomiting, chestpain, or any unexpected problems, contact your Primary Care Provider. Call [facility] ([phone]) or report to the closest Emergency Room. Call 911 if necessary. 08/31/25 1635 <Electronically signed by Berlin Wilson DO> Cosigner Signature (if applicable): CC: Dr. Red Perez MD ~ Signed [facility] Work Phone: 1(728) 813-358710-17-2025 Radiology Diagnostic study [facility]10-17-2025 Radiology Diagnostic study [facility]10-17-2025 Radiology Diagnostic study [facility] 08-31-2025 Radiology Diagnostic study [facility]10-17-2025 Radiology Diagnostic study [facility]10-17-2025 Radiology Diagnostic study [facility]10-17-2025 Radiology Diagnostic study [facility]10-17-2025 Radiology Diagnostic study note [facility]10-13-2025 Progress [facility] [address] [place] [address] OFFICE VISIT Date of Service: 08/27/25 1121 MR#: [id number] Acct: [id number] Name: HEIDI ANDREWS Rep #: [id number] : 1970 From: Glen Chapman MD Age/Sex: 55/F Location: [facility] Status: Signed HPI Subjective Date [...] applicable) CC: Dr. Red Perez MD ~ [facility]09-29-2025 Radiology Diagnostic study note [facility] Imaging Services [address] [place] [address] Fluoroscopy 1 Hr or Less MR#: [id number] Acct: [id number] Name: HEIDI ANDREWS Rep #: [id number] : 1970 F 55 From: Tiff Mcfarland MD PCP: Dr. Red Perez MD Status: [facility]KA Study:Fluoroscopy 1 Hr or Less Date of Exam: 08/13/25 Exam# [id number] Ordering Dr: Nikolai Kim MD PROCEDURE: FLUOROSCOPY [...] excursion suggestive of mild paralysis. Reading Location: [place] [address] CC: Dr. Red Perez MD; Dr. Nikolai Kim MD ~ Master Control Supervisor: Signed [facility]08-01-2025 Radiology Diagnostic study note [facility] Imaging Services [address] [place], [place] [id number] Chest PA and Lateral MR#: [id number] Acct: [id number] Name: HEIDI ANDREWS Rep #: [id number] : 1970 F 55 From: Ricardo Nunn MD PCP: Dr. Red Perez MD Status: [facility] Study:Chest PA and Lateral Date of Exam: 06/15/25 Exam# [id number] Ordering Dr: Nikolai Kim MD PROCEDURE: CHEST [...] evidence of acute cardiopulmonary disease. Reading Location: [place] [address] CC: Dr. Red Perez MD; Dr. Nikolai Kim MD ~ Master Control Supervisor: Signed [facility]07-21-2025 Progress [facility] [address] [place] [address] OFFICE VISIT Date of Service: 06/04/25 1109 MR#: [id number] Acct: [id number] Name: HEIDI ANDREWS Rep #: [id number] : 1970 From: Glen Chapman MD Age/Sex: 55/F Location: [facility] Status: Signed HPI Subjective Date of Service [...] spouse current occupational status: employed current occupation: [employer] Smoking Status: Former smoker alcohol intake: never [...] 1239 D> Date _ Glen Chapman MD Cosign Signature: Date (if applicable) CC: Dr. Red Perez MD ~ [facility]07-21-2025 Evaluation note* Diagnosis Onset Date [...] 12:54pm Syncope inactive August 31, 2025 12:54pm [facility] Work Phone: 1(109) 777-918807-21-2025 Progress note Author Glen Chapman [facility] Note Date/Time June 04, 2025 12:3 9pm [facility] [place] [address] [place] [address] OFFICE VISIT Date of Service: 06/04/25 1109 MR#: [id number] Acct: [id number] Name: HEIDI ANDREWS Rep #: [id number] : 1970 From: Glen Chapman MD Age/Sex: 55/F Location: [facility] Status: Signed HPI Subjective Date [...] deficiency. Comes for follow up. Feels better. [facility] Medical History Sleep apnea Wears glasses Thyroid [...] Protein Albumin Globulin Vitamin B12 152 L 07/21/25 09:59 WBC 6.2 Hgb 11.3 L Hct [...] applicable) CC: Dr. Red Perez MD ~ [facility] [employer] Work Phone: 1(900) 219-411906-23-2025 Evaluation note* Diagnosis Onset Date Resolution Status Admit Date B12 deficiency chronic May 07, 2025 7:45am Iron deficiency anemia chronic Ju ne 2024 7:45am Hypomagnesemia resolved May 07, 2025 7:45am B12 deficiency chronic June 04, 2025 9:55am Iron deficiency anemia chronic Ju ly 2024 9:55am Hypomagnesemia resolved June 04, 2025 9:55am [facility] Work Phone: 1([phone]) 403-351904-24-2025 Evaluation note* Diagnosis Onset Date Resolution Status Admit Date Iron deficiency anemia acute Ap ril 2024 8:14am Anemia noneactive March 08 8:14am [facility] Work Phone: 1(546) 463-551004-24-2025 Evaluation note* Diagnosis Onset Date Resolution Status Admit Date Iron deficiency anemia chronic Ap ril 2024 8:14am Anemia noneactive March 08 8:14am B12 deficiency acute May 07, 2025 7:45am Hypomagnesemia acute May 07, 2025 7:45am Iron deficiency anemia chronic Ju ne 2024 7:45am [facility] Work Phone: 1(173) 347-955004-24-2025 Evaluation note* Diagnosis Onset Date Resolution Status [...] 9:55am Hypomagnesemia resolved June 04, 2025 9:55am [facility] Work Phone: 1(364) 233-729803-25-2024 NotePap Smear Specimen AdequacyMarch 2023 9:00amComment.Satisfactory for evaluation. Endocervical and/or squamous metaplasticcells (endocervical component)are present.[facility] INTER[facility]ACED A#[id number] Hospitals Parma Medical CenterComment on above:Satisfactory for evaluation. Endocervical and/or squamous metaplasticcells (endocervical component)are present.12-01-2022 Procedure [facility] 12-01-2022 Procedure [facility] Author Memo Valdez [facility] Note Date/Time September 01, 2025 4 :56pm [facility] Medical Records Department [address] [place] [address] Consultation - Nephrology 09/01/252 MR#: [id number] Acct: [id number] Name: HEIDI ANDREWS Rep #:[id number] : 1970 55 From: Memo carlton MD PCP: Dr. Red Perez MD Status:ADM I N Location: [place] [address] Assessment & Plan Assessment/Plan (1) JESI (acute [...] increased. currently on IV fluids. no hematuria. [facility] Medical History (Updated 08/31/25 @ 13:40 by [...] / Time No Known Allergies Allergy Verified 10/17/25 10:07 Family History Father Hypertension Diabetes Sister Anxiety MCTD (mixed connective tissue disease) Mother Psoriatic arthritis Surgical History Hx of section Hx of bilateral breast reduction surgery Social History household members: spouse current occupational status: employed current occupation: [employer] Smoking Status: Former smoker alcohol intake: never [...] 08/31/25 14:36 SB (Rec: 08/31/25 14:36 SB [id number]) Nutrition Malnutrition Evidence of Yes Malnutrition Exists [...] 13:05 IMPRESSION: NORMAL RENAL ULTRASOUND. Reading Location: [facility] 09/01/25 5455 <Electronically signed by Memo Valdez MD> Cosigner Signature (if applicable): CC: Dr. Red Perez MD~ Signed [facility] Work Phone: Consult note Author Channing Parker [facility] Note Date/Time September 03, 2025 1 :56pm [facility] Medical Records Department [address] [place] [address] Counseling Note - Pharmacy 09/03/25 5777 MR#: [id number] Acct: [id number] Name: HEIDI ANDREWS Rep #:[id number] : 1970 55 From: Channing Parker PCP: Dr. Red Perez MD Status:ADM I N Y Location[facility] Counseling Pharmacy Service has performed discharge [...] Signature (if applicable): Date CC: ~ Signed [facility] Work Phone: Discharge summary Author Berlin Wilson [facility] Note Date/Time August 31, 2025 4 :35pm [facility] Medical Records Department [address] [place] [address] Emergency Department Summary 08/31/25 MR#: [id number] Acct: [id number] Name: HEIDI ANDREWS Rep #:[id number] : 1970 55 From: Berlin Colon PCP: Dr. Red Perez MD Status:ADM I N Location: MS3 HA398-0 HPI History of Present Illness Chief Complaint: [...] uncommon for her since beginning iron supplementation. [facility] Medical History (Updated 08/31/25 @ 13:40 [...] Unknown History mg/3 mL) subcutaneous pen injector ([facility]) Held on 08/31/25. Instructions: skipped this week [...] spouse current occupational status: employed current occupation: [employer] Smoking Status: Former smoker alcohol intake: never [...] a posterior stirrup well-padded [facility]. Neurovascular intact pre and post application. [...] 72.5 H Lymph % (Auto) 16.0 L [place] % (Auto) 6.7 Eos % (Auto) 3.0 [...] Sl. Cloudy Urine pH 5.0 Ur Specific Nelson 1.025 Urine Protein 100 H Urine Glucose [...] (Auto) Neut % (Auto) Lymph % (Auto) [place] % (Auto) Eos % (Auto) Baso % [...] Color Urine Clarity Urine pH Ur Specific Nelson Urine Protein Urine Glucose (UA) Urine Ketones Urine Occult Blood Urine Nitrite Urine Bilirubin Urine Urobilinogen Ur Leukocyte Esterase Urine RBC Urine WBC Ur Squamous Epith Cells Amorphous Sediment Urine Bacteria Urine Mucus Radiography Diagnostic Testing: Clinical Impression(s) from Imaging Studies Chest X-Ray 08/31/25 10:12 IMPRESSION: Stable examination. No acute abnormality is seen. Reading [facility] 08/31/25 10:30 IMPRESSION: Cerebral atrophy more pronounced in the anterior frontal lobes bilaterally as well as in the [facility] Ankle X-[facility] 08/31/25 10:35 IMPRESSION: Nondisplaced oblique fracture of the lateral malleolus as well as avulsion fracture of the posterior malleolus. Mild asymmetry of the ankle mortise as well as soft tissue swelling. Reading Location: [facility] EKG Initial EKG: Attestation: I personally reviewed and interpreted this EKG as follows: Comments: Normal sinus rhythm ventricular rate of 72 bpm. Management Discussion w/another healthcare provider: Hospitalist, Manager Wound (Dr. Prakash (orthopedics)) and Radiologist Discharge Plan Dx/Rx/DC Orders Clinical Impression: Iron deficiency anemia, Syncope, Ankle fracture, right, Hematoma of occipital region of scalp, JESI (acute kidney injury), Acute hyponatremia, Elevated lactic acid level Disposition Disposition: Acute Care Hospital [facility] Discharge Date/Time: 08/31/25 13:17 What to do if you have Problems For any increased pain, shortness of breath, bleeding, nausea or vomiting, chestpain, or any unexpected problems, contact your Primary Care Provider. Call [facility] ([phone]) or report to the closest Emergency Room. Call 911 if necessary. 08/31/25 1635 <Electronically signed by Berlin Wilson DO> Cosigner Signature (if applicable): CC: Dr. Red Perez MD ~ Signed [facility] Work Phone: Discharge summary Author Frantz Gunderson [facility] Note Date/Time September 02, 2025 1 2:24pm [facility] Medical Records Department [address] [place] [address] Instructions for Home/Discharge Instructions 09/02/25 1217 MR#: [id number] Acct: [id number] Name: HEIDI ANDREWS Rep #:[id number] : 1970 55 From: Frantz Gunderson DO [...] MD; Dr. Red Perez MD ~ Signed [facility] Work Phone: Discharge summary Author Jacques Muñoz [facility] Note Date/Time September 03, 2025 1 :02pm [facility] Medical Records Department [address] [place] [address] Instructions for Home/Discharge Instructions 09/03/25 1228 MR#: [id number] Acct: [id number] Name: HEIDI ANDERWS Rep #:[id number] : 1970 55 From: Jacques hernandez DO [...] Profile (BMP) (Routine) Timeframe: 3 Days Facility: [facility] - Location: Laboratory Ordered By: Dr. Jacques [...] DO; Dr. Red Perez MD ~ Signed [facility] Work Phone: Discharge summary Author [facility] Note Date/Time September 03, 2025 3 :34pm [facility] Medical Records Department [address] [place] [address] Discharge Summary 09/03/25 1229 MR#: [id number] Acct: [id number] Name: HEIDI ANDREWS Rep #:[id number] : 1970 55 From: Jacques hernandez DO PCP: Dr. Red Perez MD Status:DIS I N Location: [place] [address] Providers Date of Admission: 08/31/25 Date of [...] is a 55-year-old female who presented to [facility] ED on 08/31/2025 with syncope and right [...] 08/31/25 14:36 SB (Rec: 08/31/25 14:36 SB [id number]) Nutrition Malnutrition Evidence of Yes Malnutrition Exists [...] Profile (BMP) (Routine) Timeframe: 3 Days Facility: [facility] - Location: Laboratory Ordered By: Dr. Jacques [...] Self Care Charges/Coding Visit Charges Inpatient E&M: 62167 Disch Hosp >30min 09/06/25 1040 <Electronically signed by Jacques Muñoz DO> Cosigner Signature (if applicable): CC: Dr. Jacques Muñoz DO; Dr. Red Perez MD~ Signed [facility] Work Phone: Evaluation noteNo assessment information available [facility] Work Phone: Evaluation note* Diagnosis Onset Date Resolution Status Encounter for screening for malignant neoplasm of colo n acute [facility] Work Phone: History and physical note Author Dr. Marie [facility] December 01, 2022 10:07am Note Date/Time December 01, 2022 1 0:07am [facility] Medical Records Department [address] [place] [address] History & Physical Exam 12/01/22 1005 MR#: [id number] Acct: [id number] Name: HEIDI ANDREWS Rep #:[id number] : 1970 52 From: Lamine gracia MD PCP: Dr. Red Perez MD Status:REG S DC Location: [place] [address] HPI - General HPI Narrative HEIDI ANDREWS, is a 52 F who presents for screening colonoscopy. Patient reports no blood in the stool or abdominal pain. She has never had a colonoscopy in the past. No family history of colon cancer. [facility]LY [facility], [facility] Medical History Anemia Anxiety Bipolar disorder, unspecified [...] 09:05) Discharge Is Pt Admitted From a Care Home, or a Usp: No Who Could Help: After D/C, Where [...] proceed with procedure. Lamine Marie MD Pager: [facility] [address] [place] [address], [address] [place] [address] Office: Surgery Risks - Colonoscopy Risks Include but are not Limited To: Risks include but are not limited to: Bleeding, perforation requiring further surgery, inability to complete colonoscopy requiring barium enema. 12/01/22 1007 <Electronically signed by Lamine Marie MD> Cosigner Signature (if applicable): CC: Dr. Lamine Marie MD; Dr. Red Perez MD~ Signed [facility] Work Phone: History and physical note Author Frantz [facility]iast. [facility] Note Date/Time September 01, 2025 1 2:18pm [facility] Medical Records Department [address] [place] [address] H&P Exam - Hospitalist 08/31/25 1849 MR#: [id number] Acct: [id number] Name: HEIDI ANDREWS Rep #:[id number] : 1970 55 From: Frantz Gunderson DO PCP: Dr. Red Perez MD Status:ADM I N Location: [place] [address] HPI - General General Date of Admission: 08/31/25 Date of Service: 08/31/25 Chief Complaint: Syncope, right ankle injury HPI Narrative HEIDI ANDREWS, is a 55 F who presents to the emergency room at [facility] after sustaining a syncopal episode at home [...] of metformin with a backdrop of starvation. [facility]LY [facility] Medical History (Updated 08/31/25 @ 13:40 by [...] 08/31/25 14:36 SB (Rec: 08/31/25 14:36 SB [id number]) Nutrition Malnutrition Evidence of Yes Malnutrition Exists [...] 72.5 H, Lymph % (Auto) 16.0 L, [place] % (Auto) 6.7, Eos % (Auto) 3.0, [...] Sl. Cloudy, Urine pH 5.0, Ur Specific Nelson 1.025, Urine Protein 100 H, Urine Glucose [...] No acute abnormality is seen. Reading Location[facility] 08/31/25 10:30 IMPRESSION: Cerebral atrophy more pronounced in the anterior frontal lobes bilaterally as well as in the Reading Location: [facility] Ankle X-Ray 08/31/25 10:35 IMPRESSION: Nondisplaced oblique fracture of the lateral malleolus as well as avulsion fracture of the posterior malleolus. Mild asymmetry of the ankle mortise as well as soft tissue swelling. Reading Location: [facility] Renal Ultrasound 08/31/25 13:05 IMPRESSION: NORMAL RENAL ULTRASOUND. Reading Location: [facility] Assessment & Plan Assessment/Plan (1) JESI (acute kidney injury): PLAN: Plan 1. Acute kidney injury-secondary to dehydration and use of diuretics for hypertension, also due to emesis from Ozempic-patient will be admitted to [facility] 3 and given IV fluids, nephrology [...] 75 minutes Charges/Coding Visit Charges Inpatient E&M: 12565 Subs Hosp L2 09/01/25 1218 <Electronically signed by Frantz Gunderson DO> Cosigner Signature (if applicable): CC: Dr. Frantz Gunderson DO; Dr. Red Perez MD~ Signed ADDENDUM by Dr. Frantz Gunderson DO on 09/01/25 at 1218 Visit Charges Inpatient E&M: 04575 Init Hosp L3 09/01/25 1218<Electronically signed by Frantz Tereletsky DO> Cosigner Signature (if applicable): cc: Dr. Frantz Gunderson, DO; Dr. Red Perez MD ~* Signed [facility] Work Phone: Hospital Discharge instructionsAdditional Instructions Please [...] [facility]: [facility] Work Phone: Progress note Author Glen Chapman [facility] Note Date/Time August 27, 2025 1 2:38pm [facility] [address] [place], [place] [address] [address] OFFICE VISIT Date of Service: 08/27/25 1121 MR#: [id number] Acct: [id number] Name: HEIDI ANDREWS Rep #: [id number] : 1970 From: Glen Chapman MD Age/Sex: 55/F Location: [facility] Status: Signed HPI Subjective Date [...] follow up. Feels tired, sleeps a lot. FOR[facility]LY [facility] Medical History Sleep apnea Wears glasses Thyroid disease Diabetes Anemia Former smoker Diabetes Anxiety Psoriasis Hypothyroid Vitamin D deficiency Hypertriglyceridemia Bipolar disorder, unspecified HTN (hypertension) Surgical History Hx of section Hx of bilateral breast reduction surgery Family History Father Hypertension Diabetes Sister Anxiety MCTD (mixed connective tissue disease) Mother Psoriatic arthritis Social History household members: spouse current occupational status: employed current occupation: [employer] Smoking Status: Former smoker alcohol intake: never [...] Plan Details Follow Up: 2 Weeks 08/29/25 1512 <Electronically signed by Glen Bowling> Date _ Glen Chapman MD Cosigner Signature: Date (if applicable) CC: Dr. Red Perez MD ~ [facility] Work Phone: Progress note Author Frantz Gunderson [facility] Note Date/Time September 01, 2025 7 :37pm [facility] Medical Records Department [address] [place] [address] Progress Note - Hospitalist 09/01/251934 MR#: [id number] Acct: [id number] Name: DARRYLHEIDI David Rep #:[id number] : 1970 55 From: Frantz Gunderson DO PCP: Dr. Red Perez MD Status:ADM I N Location: [place] [address] Reason for Visit Chief Complaint: Syncope, right [...] 08/31/25 14:36 SB (Rec: 08/31/25 14:36 SB [id number]) Nutrition Malnutrition Evidence of Yes Malnutrition Exists [...] 35 minutes Charges/Coding Visit Charges Inpatient E&M: 55977 Subs Hosp L2 09/01/251936 <Electronically signed by Frantz Gunderson DO> Cosigner Signature (if applicable): CC: ~ Signed [facility] Work Phone: Progress note Author Frantz Garciast. [facility] Note Date/Time September 02, 2025 1 2:43pm [facility] Medical Records Department [address] [place] [id number] Progress Note - Hospitalist 09/02/25 1230 MR#: [id number] Acct: [id number] Name: HEIDI ANDREWS Rep #:[id number] : 1970 55 From: Frantz Gunderson DO PCP: Dr. Red Perez MD Status:ADM I N Location: [place] [address] Reason for Visit Chief Complaint: Syncope, right [...] Intake and Output for Last 24 Hours 10/17/25 10/18/25 10/19/25 23:59 23:59 23:59 Intake Total 1290 / 1740 3825 / 3945 1120 / 1120 Balance 1290 / 1740 3825 / 3945 1120 / 1120 Medical Nutrition Assessment Dietitian: Malnutrition Criteria Met Start: 08/31/25 14:35 Freq: Status: Active Protocol: Document 08/31/25 14:36 SB (Rec: 08/31/25 14:36 SB [id number]) Nutrition Malnutrition Evidence of Yes Malnutrition Exists [...] 35 minutes Charges/Coding Visit Charges Inpatient E&M: 50557 Subs Hosp L2 09/02/25 1243 <Electronically signed by Frantz Gunderson DO> Cosigner Signature (if applicable): CC: ~ Signed [facility] Work Phone: Reason for referral (narrative)No reason for referral information availableWSelect [facility] Work Phone: Chief Complaint and Reason for [...] EORDER- BMP/ PRE-OP SURGERY LABS A1C Aug peg 2024 11:11am Reason for Visit Admit [...] Will No November 25 8:38am Power of Meat Wrapper No November 25, 2022 8:38am Advance Directive Response Recorded Date/ Time Living Will No November 25 9:38am Power of Meat Wrapper No November 25, 2022 9:38am Advance Directive Response Recorded Date/ Time Do you have a Healthcare Power of Meat Wrapper? No August 31, 2025 1:27pm Advance Directive Response Recorded Date/ Time Do you have a Healthcare Power of Meat Wrapper? No August 31, 2025 12:27pm Summary Purpose [...] Provider Active Start: March 05, 2025 Yamila OSCAR Stein Attending Provider Active S tart: March 05, [...] Active Start: April 17, 2025 Dr. Red Peerz MD Other Provider Active Star t: April [...] 01, 2025 End: March 01, 2025 ROSETTA MAGALILONIVERNA Other Provider Active Start: March 01, 2025 [...] Active Start: April 17, 2025 Dr. Red ePrez MD Referring Provider Active Start: April 17, [...] physician Active Start: August 30, 2025 Dr. Geln Chapman MD Attending physician Active Start: August 30, 2025 Dr. Glen Chapman MD Referring Provider Active S tart: August 30, 2025 Team Status: Inactive Member Role/Relationship Status Dates Dr. Red Perez MD Primary care physician Active Start: August 31, 2025 End: September 03, 2025 Dr. Belrin Wilson , Emergency Departm ent Physician Active Start: August [...] September 03, 2025 Dr. Jacques Muñoz , Attending physician Active Start: September 03, 2025 Dr. Jacques Muñoz , Nurse Practitioner Active Start: September 03, 2025 Team Status: Active Member Role/Relationship Status Dates Dr. Red Perez MD Primary care physician Active Start: September 07, 2025 Dr. Red Preez MD Nurse Practitioner Active Start: September 07, [...] section and content) DATE CREATED AUTHOR 09/19/2025 [facility] DATE CREATED AUTHOR AUTHOR'S KANA DAVIS 09/24/2025 [facility] FOR RECORDS PERTAINING TO PATIENTS WHO [...] BE BASED ON THE PRIMARY CLINICAL RECORDS. [employer] provides no warranty or guarantee of the accuracy or completeness of information in this document.
== END 2025-11-09 20:31 | disposition home or self-care (01) ==
LOC: ED 20:24
PROVIDERS: Emergency Provider Emergency Medicine; PCP Family Medicine; Visit Provider Emergency Medicine
DX: S90.121A Contusion of right lesser toe(s) without damage to nail, initial encounter (principal); F31.9 Bipolar disorder, unspecified; E11.51 Type 2 diabetes mellitus with diabetic peripheral angiopathy without gangrene; I10 Essential (primary) hypertension; Z87.891 Personal history of nicotine dependence; D50.9 Iron deficiency anemia, unspecified; S90.31XA Contusion of right foot, initial encounter; G47.30 Sleep apnea, unspecified; Z99.81 Dependence on supplemental oxygen; Z79.899 Other long term (current) drug therapy; E03.9 Hypothyroidism, unspecified; Z79.890 Hormone replacement therapy; J45.909 Unspecified asthma, uncomplicated; Z79.51 Long term (current) use of inhaled steroids; Z79.84 Long term (current) use of oral hypoglycemic drugs; X58.XXXA Exposure to other specified factors, initial encounter
CPT/HCPCS: 73630; 99282